=== PATIENT | male | born 1955 | race Caucasian/White ===

== ENCOUNTER 2022-01-06 12:16 | Observation (INO) ==
[2022-01-06] MEDS ORDERED: NITROGLYCERIN SL 0.4 MG/TAB TAB SL STA (12:42)
[2022-01-06] MEDS ORDERED: ASPIRIN 81 MG CHEW PO STA (12:42)
--- NOTE | 2022-01-06 12:56 | Emergency Department Note ---
Impression & Plan Chest pain, DM type 2 (diabetes mellitus, type 2), CKD (chronic kidney disease), stage IV, CAD (coronary artery disease) ED Provider Note Provider: Efren Rod MD DATE OF SERVICE: 01/06/2022 CHIEF COMPLAINT: Chest pain HISTORY OF PRESENT ILLNESS: Patient is a 66-year-old gentleman history of pancreatitis, CAD, CKD and HIV presenting here today reporting onset about 24 hours ago of some left axillary chest discomfort that has over the time rated little bit of right shoulder and now more to the left shoulder sharp in nature. Patient states is worse with exertion and movement but not recently movement of his arm. Patient states he feels a little short of breath. Denies any trauma or rash. Denies significant abdominal pain. Patient states it does feel a bit similar to prior cardiac issues in the past and has had 5 stents previously last in 2019. Just moved back to the area from the [facility] and has not established with a doctor here. REVIEW OF SYSTEMS: A total of 10 review of systems was obtained and negative except as stated above in the HPI. PAST MEDICAL HISTORY: As noted above MEDICATIONS: Reviewed home medications SOCIAL HISTORY: Retired, just moved back to the area PHYSICAL EXAM: GENERAL: alert and oriented in no acute distress on stretcher Head: normocephalic and atraumatic EYES: No injection, discharge or icterus. NECK: Trachea midline. LUNGS: Airway patent. No retractions. Breath sounds clear HEART: Regular rate and rhythm. No chest wall tenderness ABDOMEN: Soft and non-tender, without guarding or rebound. SKIN: Acyanotic, warm, dry, without rashes EXTREMITIES: Without swelling, tenderness or deformity NEUROLOGICAL: No focal deficits. No aphasia. No facial droop or slurred speech. Ambulatory. EK bpm sinus rhythm first-degree AV block. No PVC or PAC. Left bundle branch block with a QTC of 460 not meeting Sgarbossa criteria. EKG 2: 74 bpm sinus rhythm first-degree AV block without PVC or PAC. Similar to previous at the continued left bundle branch block. EKG 3: 76 bpm normal sinus rhythm left bundle branch block. No PVC or PAC. Compared to previous similar. CONTINUOUS CARDIAC MONITORING: was ordered and showed a heart rate of 60s-80s bpm in normal sinus rhythm Patient's laboratory studies and imaging reviewed. Differential includes Cardiac ischemia, aortic dissection, pulmonary embolism, pneumothorax, pneumonia, pericarditis, myocarditis, esophageal rupture, GERD, cholecystitis, pancreatitis, musculoskeletal, as well as other pathologies. IMPRESSION/MEDICAL DECISION MAKING: Patient with cardiac history with history of stents. Given full dose aspirin & nitro here with 3 out of 10 chest pain initially. X-ray is concerning with a bundle branch block but do not have recent similar for comparison. Pain ongoing for about 24 hours but does not clearly meeting Sgarbossa criteria. Denies significant abdominal symptoms and lower suspicion for pancreatitis. Not significantly hypoxic here and low suspicion that this represents PE. Blood work here without troponin elevation. No lipase or hepatic dysfunction noted. Patient states he has an underlying history of his CKD and states his GFR is usually between 15 and 20 and today is 22. Patient's pain is resolved upon evaluation although again he states it gets worse with exertion in the past. Again doubt acute STEMI given the troponin and resolution of symptoms. Believe further cardiac work-up given his reported history and the exertional component is warranted. Patient in agreement. Discussed with the hospitalist team. DIAGNOSIS: Chest pain, CKD, history of CAD, history of type 2 diabetes DISPOSITION: Hospitalist will evaluate Patient was agreeable with this plan. Past Med/Surg History Medical History CAD (coronary artery disease) Per patient, stenting x 5 in 2016 and restenting of 1 vessel performed in July 2020 CKD (chronic kidney disease), stage IV Depression DM type 2 (diabetes mellitus, type 2) HIV (human immunodeficiency virus infection) Surgical History No pertinent past surgical history Family History Mother Heart disease Social History Smoking Status: Former smoker Tobacco Type: Cigarettes Hx Alcohol Use: Yes Alcohol Intake Frequency: Monthly or Less Feels Safe at Home: Yes Allergies Allergies Allergy/AdvReac Type Severity Reaction Status Date / Time No Known Allergies Allergy Unverified 01/06/22 15:38 Home Meds Home Medications Medication Instructions Recorded Confirmed aspirin 81 mg tablet,delayed 81 mg PO QAM 01/06/22 01/06/22 release atorvastatin 40 mg tablet 40 mg PO QAM 01/06/22 01/06/22 calcitriol 0.25 mcg capsule 0.25 mcg PO QAM 01/06/22 01/06/22 coenzyme Q10 50 mg capsule (Co 0 mg PO QAM 01/06/22 01/06/22 Q-10) dolutegravir 50 mg-rilpivirine 25 1 tab PO QAM 01/06/22 01/06/22 mg tablet (Juluca) fluoxetine 20 mg capsule 20 mg PO QAM 01/06/22 01/06/22 insulin aspart U-100 100 unit/mL See Rx Instructions .ROUTE .COMPLEX 01/06/22 01/06/22 (3 mL) subcutaneous pen (Novolog Flexpen U-100 Insulin aspart) insulin glargine 100 unit/mL (3 20 unit SUBCUT QA 01/06/22 01/06/22 mL) subcutaneous pen (Basaglar KwikPen U-100 Insulin) metoprolol tartrate 25 mg tablet 25 mg PO QAM 01/06/22 01/06/22 multivitamin 1 tab PO QAM 01/06/22 01/06/22 omega 2-vuz-aty-fish oil 1,000 mg 2 cap PO QAM 01/06/22 01/06/22 (120 mg-180 mg) capsule (Fish Oil) prasugrel 10 mg tablet 10 mg PO QAM 01/06/22 01/06/22 sodium bicarbonate 650 mg tablet 1,300 mg PO QAM 01/06/22 01/06/22 vitamin E 100 unit capsule 0 unit PO QAM 01/06/22 01/06/22 Results & Data (ED) Vital Signs Vital Signs - 24 hr 01/06/22 12:21 01/06/22 13:00 01/06/22 13:03 Temperature 36.7 C Temperature Source Temporal Artery Scan Pulse Rate 78 83 Pulse Rate [Left Apical] 83 Pulse Rate from SpO2 Sensor 82 Pulse Rhythm Pulse Rhythm [Left Apical] Regular Pulse Strength [Left Apical] Normal Respiratory Rate 20 16 17 Respiratory Effort / Characteristics Non-Labored Non-Labored Spontaneous Respiratory Depth Normal Normal Respiratory Pattern Regular Blood Pressure 149/95 H Blood Pressure [Left Arm] 123/81 Blood Pressure Mean 113 Blood Pressure Mean [Left Arm] 95 Blood Pressure Position [Left Arm] Lying Pulse Oximetry 97 92 91 Oxygen Delivery Method Room Air Room Air Sepsis Recent Fever Within 48 Hours No Sepsis New/Unexplained Change in Mental Status N/A Sepsis Action Taken by Nursing No Action Required 01/06/22 13:30 01/06/22 13:48 01/06/22 14:00 Temperature Temperature Source Pulse Rate 74 69 70 Pulse Rate [Left Apical] Pulse Rate from SpO2 Sensor 74 69 Pulse Rhythm Regular Pulse Rhythm [Left Apical] Pulse Strength [Left Apical] Respiratory Rate 20 21 Respiratory Effort / Characteristics Respiratory Depth Respiratory Pattern Blood Pressure 116/84 120/75 Blood Pressure [Left Arm] Blood Pressure Mean 94 90 Blood Pressure Mean [Left Arm] Blood Pressure Position [Left Arm] Pulse Oximetry 94 94 95 Oxygen Delivery Method Room Air Sepsis Recent Fever Within 48 Hours Sepsis New/Unexplained Change in Mental Status Sepsis Action Taken by Nursing 01/06/22 14:30 01/06/22 15:00 Temperature Temperature Source Pulse Rate 67 Pulse Rate [Left Apical] 62 Pulse Rate from SpO2 Sensor 67 Pulse Rhythm Pulse Rhythm [Left Apical] Regular Pulse Strength [Left Apical] Normal Respiratory Rate 16 18 Respiratory Effort / Characteristics Non-Labored Respiratory Depth Normal Respiratory Pattern Regular Blood Pressure 119/82 Blood Pressure [Left Arm] 128/78 Blood Pressure Mean 94 Blood Pressure Mean [Left Arm] 94 Blood Pressure Position [Left Arm] Lying Pulse Oximetry 96 98 Oxygen Delivery Method Room Air Sepsis Recent Fever Within 48 Hours Sepsis New/Unexplained Change in Mental Status Sepsis Action Taken by Nursing Laboratory Data Result diagrams: 01/06/22 12:36 01/06/22 12:36 Lab Results 01/06/22 01/06/22 01/06/22 Range/Units 12:36 12:36 12:36 WBC 7.47 (4.8-10.8) K/uL RBC 5.03 (4.7-6.1) M/uL Hgb 13.8 L (14.0-18.0) g/dL Hct 41.0 L (42-52) % MCV 81.5 (80-100) fL MCH 27.4 (25-34) pg MCHC 33.7 (32-36) g/dL RDW Std Deviation 42.3 (36.4-46.3) fL RDW Coeff of Meera 14.5 (11.5-14.5) % Plt Count 196 (130-400) K/uL MPV 9.2 (7.4-10.4) fL Immature Gran % (Auto) 0.3 % Neut % (Auto) 53.9 % Lymph % (Auto) 32.1 % Cochran % (Auto) 10.8 % Eos % (Auto) 2.8 % Baso % (Auto) 0.1 % Neut # (Auto) 4.02 (1.4-6.5) K/uL Lymph # (Auto) 2.40 (1.2-3.4) K/uL Cochran # (Auto) 0.81 H (0.11-0.59) K/uL Eos # (Auto) 0.21 (0-0.5) K/uL Baso # (Auto) 0.01 (0-0.2) K/uL Immature Gran # (Auto) 0.02 (0.00-0.02) K/uL PT 10.8 (9.0-12.0) Seconds INR 1.0 (0.9-1.1) APTT 27.0 (21.0-31.0) Seconds PTT Ratio 1.0 Sodium (136-145) mmol/L Potassium (3.5-5.1) mmol/L Chloride (98-107) mmol/L Carbon Dioxide (21-32) mmol/L Anion Gap (3-11) BUN (6-23) mg/dl Creatinine (0.6-1.4) mg/dl Est Cr Clr Drug Dosing ml/min Est GFR ( Amer) ml/min Est GFR (Non-Af Amer) ml/min BUN/Creatinine Ratio (10-20) Glucose (70-99(Fasting)) mg/dl Calcium (8.5-10.1) mg/dl Total Bilirubin (0.2-1.0) mg/dl AST (13-39) U/L ALT (7-52) U/L Alkaline Phosphatase (34-104) U/L Troponin I High Sens 11.0 (0-20) pg/ml Total Protein (6.0-8.3) gm/dl Albumin (3.4-5.0) gm/dl Globulin (2.5-4.0) gm/dl Albumin/Globulin Ratio (0.9-2) Lipase (11-82) U/L SARS-CoV-2, RNA, NAAT (NEGATIVE) 01/06/22 01/06/22 01/06/22 Range/Units 12:36 14:07 14:10 WBC (4.8-10.8) K/uL RBC (4.7-6.1) M/uL Hgb (14.0-18.0) g/dL Hct (42-52) % MCV (80-100) fL MCH (25-34) pg MCHC (32-36) g/dL RDW Std Deviation (36.4-46.3) fL RDW Coeff of Meera (11.5-14.5) % Plt Count (130-400) K/uL MPV (7.4-10.4) fL Immature Gran % (Auto) % Neut % (Auto) % Lymph % (Auto) % Cochran % (Auto) % Eos % (Auto) % Baso % (Auto) % Neut # (Auto) (1.4-6.5) K/uL Lymph # (Auto) (1.2-3.4) K/uL Cochran # (Auto) (0.11-0.59) K/uL Eos # (Auto) (0-0.5) K/uL Baso # (Auto) (0-0.2) K/uL Immature Gran # (Auto) (0.00-0.02) K/uL PT (9.0-12.0) Seconds INR (0.9-1.1) APTT (21.0-31.0) Seconds PTT Ratio Sodium 135 L (136-145) mmol/L Potassium 3.8 (3.5-5.1) mmol/L Chloride 107 (98-107) mmol/L Carbon Dioxide 22 (21-32) mmol/L Anion Gap 6 (3-11) BUN 37 H (6-23) mg/dl Creatinine 2.79 H (0.6-1.4) mg/dl Est Cr Clr Drug Dosing 25.3 ml/min Est GFR ( Amer) 25.8 ml/min Est GFR (Non-Af Amer) 22.3 ml/min BUN/Creatinine Ratio 13.3 (10-20) Glucose 98 (70-99(Fasting)) mg/dl Calcium 9.6 (8.5-10.1) mg/dl Total Bilirubin 0.6 (0.2-1.0) mg/dl AST 28 (13-39) U/L ALT 38 (7-52) U/L Alkaline Phosphatase 62 (34-104) U/L Troponin I High Sens (0-20) pg/ml Total Protein 7.2 (6.0-8.3) gm/dl Albumin 4.1 (3.4-5.0) gm/dl Globulin 3.1 (2.5-4.0) gm/dl Albumin/Globulin Ratio 1.3 (0.9-2) Lipase 13 (11-82) U/L SARS-CoV-2, RNA, NAAT NEGATIVE (NEGATIVE) Administered Medications Discontinued Medications Aspirin (Aspirin 81 Mg Chew) 324 mg PO NOW STA Stop: 01/06/22 12:43 Last Admin: 01/06/22 12:50 Dose: 324 mg Documented by: [id number] Nitroglycerin (Nitroglycerin Sl 0.4 Mg/Tab Tab) 0.4 mg SL NOW STA Stop: 01/06/22 12:43 Last Admin: 01/06/22 12:50 Dose: 0.4 mg Documented by: [id number] Imaging Data Radiologist's Impression: Chest X-Ray 01/06/22 12:24 XR chest 1V portable CLINICAL HISTORY: Atypical chest pain. COMPARISON STUDY: Chest radiograph June 14, 2012. FINDINGS: There is no pneumothorax or pleural effusion. Moderate elevation of the left hemidiaphragm is similar to prior exams. Note is made of cardiomegaly without evidence for pulmonary edema. Mild left basilar opacity favors atelectasis. No consolidation to suggest pneumonia. IMPRESSION: 1. No acute cardiopulmonary findings. 2. Cardiomegaly with evidence for pulmonary edema. 3. Moderate elevation of the left hemidiaphragm, unchanged. ACT 112: Negative or not required by law. Electronically signed by: Igor Roberts M.D. 01/06/2022 12:58 PM Discharge Plan Visit Data Chief Complaint: Cardiac Assessment Stated Complaint: WANTS EKG, PAIN IN SIDE, CHEST, RADIATES TO BACK ED Provider: Efren Rod Patient Disposition: Being Evaluated by Hospitalist Prescriptions Prescriptions: No Action atorvastatin 40 mg tablet 40 mg PO QAM RF: 0 vitamin E 100 unit Capsule 0 unit PO QAM RF: 0 coenzyme Q10 [Co Q-10] 50 mg Capsule 0 mg PO QAM RF: 0 sodium bicarbonate 650 mg tablet 1,300 mg PO QAM RF: 0 fluoxetine 20 mg capsule 20 mg PO QAM RF: 0 calcitriol 0.25 mcg capsule 0.25 mcg PO QAM RF: 0 insulin aspart U-100 [Novolog Flexpen U-100 Insulin] 100 unit/mL (3 mL) insulin pen See Rx Instructions .ROUTE .COMPLEX RF: 0 metoprolol tartrate 25 mg tablet 25 mg PO QAM RF: 0 Basaglar KwikPen U-100 Insulin 100 unit/mL (3 mL) insulin pen 20 unit SUBCUT QAM RF: 0 prasugrel 10 mg tablet 10 mg PO QAM RF: 0 Juluca 50-25 mg tablet 1 tab PO QAM RF: 0 multivitamin Tablet 1 tab PO QAM RF: 0 aspirin [Aspir-81] 81 mg Tablet,Delayed Release (Dr/Ec) 81 mg PO QAM RF: 0 omega 1-pip-lhg-fish oil [Fish Oil] 1,000 mg (120 mg-180 mg) Capsule 2 cap PO QAM RF: 0
--- NOTE | 2022-01-06 12:59 | XRay Report ---
XR chest 1V portable CLINICAL HISTORY: Atypical chest pain. COMPARISON STUDY: Chest radiograph June 14, 2012. FINDINGS: There is no pneumothorax or pleural effusion. Moderate elevation of the left hemidiaphragm is similar to prior exams. Note is made of cardiomegaly without evidence for pulmonary edema. Mild le ft basilar opacity favors atelectasis. No consolidation to suggest pneumonia. IMPRESSION: 1. No acute cardiopulmonary findings. 2. Cardiomegaly with evidence for pulmonary edema. 3. Moderate elevation of the left hemidiaphragm, unchanged. ACT 112: Negative or not required by law. Electronically signed by: Igor Roberts M.D. 01/06/2022 12:58 PM
[2022-01-06 13:06] LABS: Basophils # (auto) 0.01 K/uL (0-0.2); Basophils % (auto) 0.1 %; Eosinophils # (auto) 0.21 K/uL (0-0.5); Eosinophils % (auto) 2.8 %; Hemoglobin 13.8 g/dL (14.0-18.0); Immature Granulocytes # (auto) 0.02 K/uL (0.00-0.02); Immature Granulocytes % (auto) 0.3 %; Lymphocytes % (auto) 32.1 %; Mean Corpuscular Hemoglobin 27.4 pg (25-34); Mean Corpuscular Hgb Conc 33.7 g/dL (32-36); Mean Corpuscular Volume 81.5 fL (80-100); Mean Platelet Volume 9.2 fL (7.4-10.4); Monocytes # (auto) 0.81 K/uL (0.11-0.59); Monocytes % (auto) 10.8 %; Neutrophils # (auto) 4.02 K/uL (1.4-6.5); Neutrophils % (auto) 53.9 %; Platelet Count 196 K/uL (130-400); RDW Coefficient of Variation 14.5 % (11.5-14.5); RDW Standard Deviation 42.3 fL (36.4-46.3); Red Blood Count 5.03 M/uL (4.7-6.1); White Blood Count 7.47 K/uL (4.8-10.8)
[2022-01-06 13:09] LABS: Prothrombin Time 10.8 Seconds (9.0-12.0)
[2022-01-06 13:14] LABS: Albumin Globulin Ratio 1.3 (0.9-2); Albumin Level 4.1 gm/dl (3.4-5.0); BUN Creatinine Ratio 13.3 (10-20); Bilirubin,Total 0.6 mg/dl (0.2-1.0); Calcium 9.6 mg/dl (8.5-10.1); Creatinine Clr Calc Pharmacy 25.3 ml/min; Est GFR (African American) 25.8 ml/min; Est GFR (Non-African American) 22.3 ml/min; Globulin 3.1 gm/dl (2.5-4.0); Potassium 3.8 mmol/L (3.5-5.1); Total Protein 7.2 gm/dl (6.0-8.3)
--- NOTE | 2022-01-06 15:36 | History & Physical Report ---
Date of Service January 06, 2022 Assessment & Plan (1) Chest pain: (2) CAD (coronary artery disease): Plan: Admit to telemetry Patient presenting from home with reports of chest pain. Pain under left axilla reproducible on exam. There may be some musculoskeletal component History of CAD s/p stenting in 2016 and 2019. Outside records unavailable at this time, records request made In the ED, patient received full dose aspirin and SL nitro x 1 --currently chest pain-free EKG shows LBBB --no recent EKG available for comparison Initial HS troponin 11.0 Continue to trend troponin, resting echo Cardiology consult, case discussed with --tentatively planning on Lexiscan stress test tomorrow (3) HIV (human immunodeficiency virus infection): Plan: On Juluca Will update CD4 and viral load as patient states he has not had them checked in some time (4) CKD (chronic kidney disease), stage IV: Plan: Patient reports baseline creatinine is 3.0 Creatinine noted be 2.79 today Monitor renal functions Patient also states that he is on the renal transplant list through [place] in [facility] (5) DM type 2 (diabetes mellitus, type 2): Plan: Unknown A1c, will check with a.m. labs NovoLog per protocol while hospitalized (6) DVT prophylaxis: Plan: SQ heparin (7) Discharge planning issues: Plan: Patient moved to the area about 6 months ago and has not established any medical care. Previous providers include - Dr. Polo Ray with infectious disease/HIV management -[facility], transplant medicine [facility], PCP TIM Irizarry [facility], Dr. Teodoro Egan [facility] cardiology, Dr. Jb Rodriguez [facility] nephrology. History of Present Illness Chief Complaint: Chest pain Primary Care Provider: NO PCP 66-year-old male with PMH HIV, CAD s/p stenting, CKD stage IV, DM type II on insulin, and other problems listed below who presents to the ED for evaluation of chest pain. Patient reports he developed a discomfort under his left axilla yesterday. Eats that he felt as though he may have pulled a muscle. This morning, while doing some chores around the house, he developed a similar pain under his right axilla and also a precordial chest tightness. Patient reports chest tightness was similar to prior MIs. Also reports associated shortness of breath, nausea, and indigestion. Patient drove himself to the ED for further evaluation. Patient reports he otherwise has been feeling well recently. Recently moved to the area about 6 months ago and has not established any medical care. Patient denies any other recent illnesses, fevers, chills. No abdominal pain, vomiting, diarrhea. No urinary symptoms. Patient received full dose aspirin and SL nitro x 1 and is currently chest pain-free. Patient is hemodynamically stable. EKG demonstrates LBBB, unfortunately no EKGs to compare to. Initial HS troponin negative. Creat 2.79 (patient reports baseline is 3.0). Allergies Allergy/AdvReac Type Severity Reaction Status Date / Time No Known Allergies Allergy Unverified 01/06/22 15:38 Home Medications Medication Instructions Recorded Confirmed Type aspirin 81 mg tablet,delayed 81 mg PO [facility] 01/06/22 01/06/22 History release atorvastatin 40 mg tablet 40 mg PO [facility] 01/06/22 01/06/22 History calcitriol 0.25 mcg capsule 0.25 mcg PO [facility] 01/06/22 01/06/22 History coenzyme Q10 50 mg capsule (Co 0 mg PO [facility] 01/06/22 01/06/22 History Q-10) dolutegravir 50 mg-rilpivirine 25 1 tab PO [facility] 01/06/22 01/06/22 History mg tablet (Juluca) fluoxetine 20 mg capsule 20 mg PO [facility] 01/06/22 01/06/22 History insulin aspart U-100 100 unit/mL See Rx Instructions .ROUTE .COMPLEX 01/06/22 01/06/22 History (3 mL) subcutaneous pen (Novolog Flexpen U-100 Insulin aspart) insulin glargine 100 unit/mL (3 20 unit SUBCUT [facility] 01/06/22 01/06/22 History mL) subcutaneous pen (Basaglar KwikPen U-100 Insulin) metoprolol tartrate 25 mg tablet 25 mg PO QAM 01/06/22 01/06/22 History multivitamin 1 tab PO QAM 01/06/22 01/06/22 History omega 3-ygx-gjw-fish oil 1,000 mg 2 cap PO [facility] 01/06/22 01/06/22 History (120 mg-180 mg) capsule (Fish Oil) prasugrel 10 mg tablet 10 mg PO QAM 01/06/22 01/06/22 History sodium bicarbonate 650 mg tablet 1,300 mg PO QAM 01/06/22 01/06/22 History vitamin E 100 unit capsule 0 unit PO QAM 01/06/22 01/06/22 History Past Med/Surg History Medical History CAD (coronary artery disease) Per patient, stenting x 5 in 2016 and restenting of 1 vessel performed in July 2020 CKD (chronic kidney disease), stage IV Depression DM type 2 (diabetes mellitus, type 2) HIV (human immunodeficiency virus infection) Surgical History No pertinent past surgical history Family History Mother Heart disease Social History Smoking Status: Former smoker Tobacco Type: Cigarettes Hx Alcohol Use: Yes Alcohol type: wine Alcohol Intake Frequency: Monthly or Less Hx Substance Use: No Preferred Language: Setswana Communication Ability: Effective Cardroom Supervisor Required: No Beliefs That Will Affect Care: None Current Living Situation: Alone Other Information That Helps Us Care for You: No Feels Safe at Home: Yes Safety Concerns: Feels Safe At This Time Assistive Devices: Glasses Review of Systems Review of Systems: ROS per HPI, all other systems reviewed and negative Physical Exam Constitutional: WD/WN, vitals as above Eyes: PERRL, conjunctivae normal, anicteric sclerae ENMT: external ear and nose normal, oropharynx normal Respiratory: normal respiratory effort, lungs clear to auscultation Cardiovascular: Rate/Rhythm: regular rate and regular rhythm Vessels: normal peripheral pulses Extremities: no edema Gastrointestinal (Abdomen): normal bowel sounds, soft, nontender, no hepatosplenomegaly Musculoskeletal: no cyanosis or clubbing, extremities motor strength 5/5 Skin: no rashes, warm and dry Neurologic: PERRL, EOMI, accommodation nl, no face palsy, no dysarthria Psychiatric: A+Ox3, euthymic affect Results & Data Results & Data ([facility]) Vital Signs (Past 12 Hours) Vital Signs Temp Pulse Pulse Resp BP BP Pulse Ox 01/06/22 15:00 62 18 128/78 98 01/06/22 14:30 67 16 119/82 96 01/06/22 14:00 70 21 120/75 95 01/06/22 13:48 69 94 01/06/22 13:30 74 20 116/84 94 01/06/22 13:03 83 17 91 01/06/22 13:00 83 16 123/81 92 01/06/22 12:21 36.7 C 78 20 149/95 H 97 Laboratory Results Short CBC 01/06/22 Range/Units 12:36 WBC 7.47 (4.8-10.8) K/uL Hgb 13.8 L (14.0-18.0) g/dL Hct 41.0 L (42-52) % Plt Count 196 (130-400) K/uL BMP 01/06/22 12:36 Sodium 135 L Potassium 3.8 Chloride 107 Carbon Dioxide 22 BUN 37 H Creatinine 2.79 H Glucose 98 Calcium 9.6 Liver Function 01/06/22 Range/Units 12:36 Total Bilirubin 0.6 (0.2-1.0) mg/dl AST 28 (13-39) U/L ALT 38 (7-52) U/L Alkaline Phosphatase 62 (34-104) U/L Albumin 4.1 (3.4-5.0) gm/dl Diagnostic Findings Chest X-Ray 01/06/22 12:24 XR chest 1V portable CLINICAL HISTORY: Atypical chest pain. COMPARISON STUDY: Chest radiograph June 14, 2012. FINDINGS: There is no pneumothorax or pleural effusion. Moderate elevation of the left hemidiaphragm is similar to prior exams. Note is made of cardiomegaly without evidence for pulmonary edema. Mild left basilar opacity favors atelectasis. No consolidation to suggest pneumonia. IMPRESSION: 1. No acute cardiopulmonary findings. 2. Cardiomegaly with evidence for pulmonary edema. 3. Moderate elevation of the left hemidiaphragm, unchanged. ACT 112: Negative or not required by law. Electronically signed by: Igor Roberts M.D. 01/06/2022 12:58 PM Code Status & VTE Plan VTE Prophylaxis Plan VTE Prophylaxis will be ordered: Yes Supervising Physician Co-Signing Physician Notes I have seen and examined the patient and have discussed the case with the provider above. I agree with the assessment and plan as stated with the following exceptions. Patient is a 66-year-old man presenting with chest pain. He has known history of CAD, is a non-smoker, and is HIV positive on antiretroviral therapy. His pain is described as lateral chest severe, radiating to the right shoulder over the last 24 hours. He reports exertion making this worse and is associated with shortness of breath. Rest makes it better. He describes some components of this that were similar to his first heart attack and he has had 2 heart attacks. He denies a history of chest pain outside of his heart attacks in the past and does not regularly use nitro. Baseline lab work is unavailable as patient received most of his health care in the [facility] for the last 10 years. He reports stents in place and a history of CKD. The patient does report intermittent rectal bleeding on occasion and repo rts a history of precancerous cells in his rectal area. It is unknown the last time he has had this evaluated. Physical exam reveals a well-nourished well-developed man in no acute distress who is mentating normally. His skin is warm and dry and there are no evidence of rashes present. Lungs are clear to auscultation throughout all lung abdalla. Cardiac auscultation reveals S1/S2 heard with no evidence of murmurs gallops or rubs. There is no pain to chest wall palpation and there is no rash over the pain area. Abdomen is soft nontender and protuberant but nondistended. There is no evidence of edema and no gross focal neurologic deficits. Work-up reveals a normal CBC with elevated monocytes. BMP reveals sodium of 135 and otherwise normal electrolytes and a BUN 37 creatinine 2.8. Although he reports a history of CKD he is uncertain of his baseline creatinine. Highly sensitive troponin is negative and lipase is normal. A chest x-ray reveals no evidence of pulmonary edema. EKG reveals sinus rhythm with a first-degree AV block and left bundle branch block. Overall this is a 66-year-old man with high risk for ACS given his history of CAD, stents and HIV status. Continue to trend serial troponins overnight and trend daily EKG. Cardiology consult. Lipid panel while in fasting, A1c screening recommended. We will also obtain CD4 count and viral load given he has not established with an infectious disease physician in the area, and these values are unknown to us. DO Ignacio
--- NOTE | 2022-01-06 15:37 | Electrocardiogram Report ---
Test Reason : Blood Pressure : / mmHG Vent. Rate : 067 BPM Atrial Rate : 067 BPM P-R Int : 220 ms QRS Dur : 166 ms QT Int : 436 ms P-R-T Axes : 045 -03 156 degrees QTc Int : 460 ms Sinus rhythm with 1st degree A-V block Possible Left atrial enlargement Left bundle branch block Abnormal ECG When compared with ECG of 13-JUN-2012 11:22, [place] interval has increased Vent. rate has decreased BY 44 BPM Left bundle branch block is now Present Confirmed by Ryland Michelle ([id number]) on 01/06/2022 3:37:27 PM Referred By: Confirmed By:Ryland Michelle
--- NOTE | 2022-01-06 15:37 | Electrocardiogram Report ---
Test Reason : Blood Pressure : / mmHG Vent. Rate : 074 BPM Atrial Rate : 074 BPM P-R Int : 216 ms QRS Dur : 166 ms QT Int : 432 ms P-R-T Axes : 036 -17 126 degrees QTc Int : 479 ms Sinus rhythm with 1st degree A-V block Left bundle branch block Abnormal ECG When compared with ECG of 06-JAN-2022 12:26, (unconfirmed) Nonspecific T wave abnormality has replaced inverted T waves in Inferior leads Confirmed by Ryland Michelle ([id number]) on 01/06/2022 3:37:40 PM Referred By: Confirmed By:Ryland Michelle
[2022-01-06] MEDS ORDERED: GLUCAGON FOR INJ 1 MG VIAL SQ PRN (16:00)
[2022-01-06] MEDS ORDERED: CARBOHYDRATES FOR HYPOGLYCEMIA PO PRN (16:00)
[2022-01-06] MEDS ORDERED: NITROGLYCERIN SL 0.4 MG/TAB TAB SL PRN (16:00)
[2022-01-06] MEDS ORDERED: DEXTROSE 50% 50 ML SYRINGE IV PRN (16:00)
[2022-01-06] MEDS ORDERED: GLUCOSE 40% GEL 15 GM TUBE PO PRN (16:00)
[2022-01-06] MEDS ORDERED: ACETAMINOPHEN 325 MG TAB PO PRN (16:00)
[2022-01-06] MEDS ORDERED: GLUCOSE 10 TABS/TUBE PO PRN (16:00)
[2022-01-06] MEDS: INSULIN ASPART PER UNIT SC SCH ×2 (18:00→21:24)
[2022-01-06] MEDS: ATORVASTATIN 40 MG TAB PO SCH (21:22)
[2022-01-06] MEDS: HEPARIN SOD 5,000 UNIT/0.5 ML VIAL SQ SCH (21:24)
[2022-01-07] MEDS: HEPARIN SOD 5,000 UNIT/0.5 ML VIAL SQ SCH ×3 (07:12→20:40)
[2022-01-07 07:25] LABS: BUN Creatinine Ratio 14.2 (10-20); Calcium 8.6 mg/dl (8.5-10.1); Est GFR (African American) 24.1 ml/min; Est GFR (Non-African American) 20.8 ml/min; Potassium 3.8 mmol/L (3.5-5.1)
[2022-01-07] MEDS: INSULIN ASPART PER UNIT SC SCH ×4 (08:02→20:40)
[2022-01-07] MEDS: ASPIRIN 81 MG ECTAB PO SCH (08:15)
[2022-01-07] MEDS: CALCITRIOL 0.25 MCG CAPSULE PO SCH (08:15)
[2022-01-07] MEDS: PRASugrel TAB 10 MG TAB PO SCH (08:16)
[2022-01-07] MEDS: SODIUM BICARBONATE 650 MG TAB PO SCH (08:16)
[2022-01-07] MEDS: FLUoxetine HCL 20 MG CAP PO SCH (08:16)
[2022-01-07] MEDS: METOPROLOL TARTRATE 25 MG TAB PO SCH (08:16)
[2022-01-07 08:21] LABS: Hematocrit (blood only) 38.2 % (42-52); Hemoglobin 12.8 g/dL (14.0-18.0); Mean Corpuscular Hemoglobin 27.4 pg (25-34); Mean Corpuscular Hgb Conc 33.5 g/dL (32-36); Mean Corpuscular Volume 81.6 fL (80-100); Mean Platelet Volume 9.4 fL (7.4-10.4); Platelet Count 157 K/uL (130-400); RDW Coefficient of Variation 14.7 % (11.5-14.5); Red Blood Count 4.68 M/uL (4.7-6.1); White Blood Count 4.66 K/uL (4.8-10.8)
[2022-01-07] MEDS ORDERED: REGADENOSON 0.4 MG/5 ML SYR IV ONE (08:28)
[2022-01-07 08:35] LABS: Estimated Average Glucose 321 mg/dl; Hemoglobin A1C 12.8 % (4.5-5.6)
--- NOTE | 2022-01-07 09:54 | Cardiology Consultation ---
Date of Consultation January 07, 2022 Assessment & Plan (1) Chest pain: 66-year-old male with past medical history of HIV, stage IV chronic kidney disease, and coronary heart disease presents with recent complaint of waxing and waning chest discomfort of 3 days duration. Symptoms somewhat atypical for angina, and the patient does not believe there in retrospect reminiscent of his previous angina with history of STEMI in 2018, NSTEMI, 2020. Patient had EKG findings of left bundle branch block which had been noted on previous outside cardiology notes. Per review of his telemetry from overnight it does appear that the left bundle branch block is intermittent. No rashes are noted on the left lateral chest wall. Symptoms reproduced with deep inspiration and palpation of his left chest today. 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 Given his history, and patient concerns, will proceed with Lexiscan myocardial perfusion imaging study for further evaluation. Pharmacologic stress test is a test of choice given history of intermittent left bundle branch block. At bedtime troponin has been negative x3 which is reassuring. Renal function stable compared to past baseline. Resting echocardiogram with evidence of mild left ventricular systolic dysfunction, LVEF in the range of 45-50%, RCA territory scar, similar to reported outside study dating back to 2020. Chest x-ray without findings of pulmonary edema, chronic raised hemidiaphragm noted. Patient states he has been adherent to his cardiac medications including aspirin and prasugrel without interruption. He states he has also been on his HIV medications. CD4 count, HIV viral load ordered by the admitting service and are pending at present. Further recommendations to be forthcoming after the stress test is completed. History of Present Illness Attending Physician: Gladis Crockett MD History of Present Illness Tad Silvestre is a 66 year old male seen in cardiology consultation per the request of TIM Couch for chest pain. Patient describes that 2 days ago on Wednesday, he felt a sharp pain in his left axilla. He noticed that it migrated to his right side, and radiated to his back without cricket chest discomfort. It seemed to be worse while doing zyglo inspector. He does not feel that he strained anything. He has been doing normal household cleaning. At present, he feels improved, but the pain at the left axilla still persists. It is reproduced on deep inspiration and with palpation of his left ribs. Patient moved to the area six months ago form [facility]. His previous medical care had mostly taken place in the [facility] system and a cardiology progress note from there da will back for September 2020 was obtained via the CareEverywhere feature of his [employer] electronic record. Past Medical History: Stage IV chronic kidney disease, baseline creatinine of around 3 mg/dL HIV, on HAART therapy DM2 asymptomatic carotid disease Coronary heart disease, history of inferior ST segment elevation myocardial infa rction which took place in October,, prompting emergent cardiac catheterization, and percutaneous coronary intervention with 5 stents apparently placed in the right coronary artery NSTEMI, July,, prompting transfer to [facility] and per records, he was found to have in-stent restenosis prompting repeat PCI stenting to the RCA Previously noted LBBB per outside records Ischemic cardiomyopathy, LVEF 40-45% , outside echo 11/2020 with RCA territory wall motion abnormality described Allergies Allergy/AdvReac Type Severity Reaction Status Date / Time No Known Allergies Allergy Unverified 01/06/22 15:38 Home Medications Medication Instructions Recorded Confirmed Type aspirin 81 mg tablet,delayed 81 mg PO QA 01/06/22 01/06/22 History release atorvastatin 40 mg tablet 40 mg PO QA 01/06/22 01/06/22 History calcitriol 0.25 mcg capsule 0.25 mcg PO QAM 01/06/22 01/06/22 History coenzyme Q10 50 mg capsule (Co 0 mg PO QAM 01/06/22 01/06/22 History Q-10) dolutegravir 50 mg-rilpivirine 25 1 tab PO QAM 01/06/22 01/06/22 History mg tablet (Juluca) fluoxetine 20 mg capsule 20 mg PO QAM 01/06/22 01/06/22 History insulin aspart U-100 100 unit/mL See Rx Instructions .ROUTE .COMPLEX 01/06/22 01/06/22 History (3 mL) subcutaneous pen (Novolog Flexpen U-100 Insulin aspart) insulin glargine 100 unit/mL (3 20 unit SUBCUT QA 01/06/22 01/06/22 History mL) subcutaneous pen (Basaglar KwikPen U-100 Insulin) metoprolol tartrate 25 mg tablet 25 mg PO QAM 01/06/22 01/06/22 History multivitamin 1 tab PO QAM 01/06/22 01/06/22 History omega 1-cei-mtx-fish oil 1,000 mg 2 cap PO QAM 01/06/22 01/06/22 History (120 mg-180 mg) capsule (Fish Oil) prasugrel 10 mg tablet 10 mg PO QAM 01/06/22 01/06/22 History sodium bicarbonate 650 mg tablet 1,300 mg PO QAM 01/06/22 01/06/22 History vitamin E 100 unit capsule 0 unit PO QAM 01/06/22 01/06/22 History Patient History Medical History CAD (coronary artery disease) Per patient, stenting x 5 in 2016 and restenting of 1 vessel performed in July 2020 CKD (chronic kidney disease), stage IV Depression DM type 2 (diabetes mellitus, type 2) HIV (human immunodeficiency virus infection) Surgical History No pertinent past surgical history Family History Mother Heart disease Social History Smoking Status: Former smoker Tobacco Type: Cigarettes Hx Alcohol Use: Yes Alcohol type: wine Alcohol Intake Frequency: Monthly or Less Hx Substance Use: No Preferred Language: Puerto Rican Communication Ability: Effective Emr Analyst Required: No Beliefs That Will Affect Care: None Current Living Situation: Alone Other Information That Helps Us Care for You: No Feels Safe at Home: Yes Safety Concerns: Feels Safe At This Time Assistive Devices: Glasses Review of Systems Review of Systems: All systems reviewed & are unremarkable except as noted in HPI & below Physical Exam Physical Exam: Temp Pulse Resp BP Pulse Ox 36.4 C L 70 18 130/85 96 01/07/22 07:44 01/07/22 07:44 01/07/22 07:44 01/07/22 07:44 01/07/22 07:44 Constitutional: WD/WN, vitals as above Respiratory: normal respiratory effort, lungs clear to auscultation Cardiovascular: RRR, no murmur, no edema Gastrointestinal (Abdomen): normal bowel sounds, soft, nontender, no hepatosplenomegaly Musculoskeletal: left sided chest pain , reproduced with deep inspiration and palpation of chest wall Skin: no chest wall rashes Neurologic: PERRL, EOMI, accommodation nl, no face palsy, no dysarthria Results & Data ([facility]) Laboratory Results Cardiac Enzymes 01/06/22 01/06/22 01/06/22 Range/Units 12:36 12:36 16:39 AST 28 (13-39) U/L Troponin I High Sens 11.0 10.5 (0-20) pg/ml 01/06/22 Range/Units 22:23 AST (13-39) U/L Troponin I High Sens 9.7 (0-20) pg/ml Coagulation 01/06/22 Range/Units 12:36 PT 10.8 (9.0-12.0) Seconds APTT 27.0 (21.0-31.0) Seconds CBC 01/06/22 01/07/22 Range/Units 12:36 06:01 WBC 7.47 4.66 L (4.8-10.8) K/uL RBC 5.03 4.68 L (4.7-6.1) M/uL Hgb 13.8 L 12.8 L (14.0-18.0) g/dL Hct 41.0 L 38.2 L (42-52) % Plt Count 196 157 (130-400) K/uL Neut # (Auto) 4.02 (1.4-6.5) K/uL Lymph # (Auto) 2.40 (1.2-3.4) K/uL [place] # (Auto) 0.81 H (0.11-0.59) K/uL Eos # (Auto) 0.21 (0-0.5) K/uL Baso # (Auto) 0.01 (0-0.2) K/uL Comprehensive Metabolic Panel 01/06/22 01/07/22 Range/Units 12:36 06:01 Sodium 135 L 136 (136-145) mmol/L Potassium 3.8 3.8 (3.5-5.1) mmol/L Chloride 107 110 H (98-107) mmol/L Carbon Dioxide 22 19 L (21-32) mmol/L BUN 37 H 42 H (6-23) mg/dl Creatinine 2.79 H 2.95 H (0.6-1.4) mg/dl Glucose 98 120 H (70-99(Fasting)) mg/dl Calcium 9.6 8.6 (8.5-10.1) mg/dl AST 28 (13-39) U/L ALT 38 (7-52) U/L Alkaline Phosphatase 62 (34-104) U/L Total Protein 7.2 (6.0-8.3) gm/dl Albumin 4.1 (3.4-5.0) gm/dl Intake and Output 01/06/22 01/07/22 01/07/22 22:59 06:59 14:59 Intake Total 240 / 240 Balance 240 / 240 Intake: Oral 240 / 240 Other: # Unmeasured Voids 1 1 Weight 79.379 kg 80.8 kg Weight Measurement Method Standing Scale Built in [facility] Diagnostic Findings EKG performed 01/06/22: SR at 76 bpm, first degree AVB, LBBB, QRS 170 ms echo performed this am and reviewed independently: Hypokinesis of the inferior wall at the basal and mid levels. LVEF 45-50%.
--- NOTE | 2022-01-07 10:07 | Electrocardiogram Report ---
Test Reason : Blood Pressure : / mmHG Vent. Rate : 076 BPM Atrial Rate : 076 BPM P-R Int : 206 ms QRS Dur : 170 ms QT Int : 440 ms P-R-T Axes : 038 -10 154 degrees QTc Int : 495 ms Normal sinus rhythm Left bundle branch block Abnormal ECG When compared with ECG of 06-JAN-2022 12:51, No significant change was found Confirmed by Ryland Michelle ([id number]) on 01/07/2022 10:07:09 AM Referred By: REFERRED SELF Confirmed By:Ryland Michelle
--- NOTE | 2022-01-07 14:53 | Myocardial Perfusion Study ---
Date of Service January 07, 2022 Myocardial Perfusion Study [facility] Myocardial Perfusion Study Report [place] Act 112: Negative (Results provided to shiva during hospital stay. ) Procedure: 1. Myocardial perfusion study performed in multiple views/images 2. Lexiscan pharmacologic stress ECG Indications: 1. Chest discomfort, history of coronary heart disease, past inferior wall myocardial infarction Ordering physician: Dr Lucas Procedural details: For the stress portion of the study, Lexiscan 0.4 mg was intravenously administered followed by a saline flush. This was followed by [ ] mCi of technetium 99m Cardiolite, injected at 32.8 on 11:31 AM, on 01/06/2022 30 minutes following the injection, imaging of the heart was performed in multiple projections. For the rest portion of the study, 10.4 mCi technetium 99m Cardiolite was injected intravenously at 9:37 AM, 01/07/2022. 1 hour following the injection, imaging of the heart was performed in the same projections. Lexiscan stress ECG: Resting ECG demonstrated: Sinus rhythm with left bundle branch block and resultant repolarization changes. A Lexiscan stress protocol was performed the patient receiving 0.4 mg of IV Lexiscan (regadenoson). The baseline EKG revealed sinus rhythm at 61 bpm with left bundle branch block morphology and related repolarization changes. The resting heart rate of 57 bpm jenise to a maximum heart rate of 79 bpm. This represents 48% of the maximal age- predicted heart rate. The resting blood pressure of 130/83, with lowest blood pressure 119/77 after having received Lexiscan. Patient had a transient sensation of feeling short of breath with administration of Lexiscan that resolved early in the post-rest recovery interval. His presenting symptoms of chest discomfort were not reproduced. Findings: Rotating raw imaging demonstrated no significant lung uptake. There is no significant motion artifact. Heart size appeared normal. Stress myocardial perfusion demonstrated a moderate sized inferior, inferolateral perfusion defect encompassing the basal and mid segments and to a lesser degree the apical segments. The resting perfusion images were unchanged with findings of a fixed inferior, inferolateral perfusion defect. Ejection fraction: 42% Wall motion: Inferior, inferolateral hypokinesis No significant transient ischemic dilation. Impression: 1. Lexiscan myocardial perfusion imaging study is abnormal with findings of a moderate sized fixed inferior, inferolateral perfusion defect of moderate to severe intensity consistent with scar without superimposed ischemia. Perfusion to the remaining myocardial segments was normal. Findings correlate well with the patient's known past history of right coronary artery territory myocardial infarction. 2. The stress EKG response was equivocal for excluding ischemia due to the presence of underlying left bundle branch block. 3. There is hypokinesis to akinesis of the inferior, inferolateral weaver, LVEF 42% (mildly reduced).
--- NOTE | 2022-01-07 14:55 | Communication Note ---
Date of Service: January 07, 2022 Pharmacologic nuclear stress test findings consistent with RCA territory scar without superimposed ischemia, LVEF 42%. Physical exam suggest chest wall pain, perhaps musculoskeletal. Recommend appropriate analgesic treatment perhaps Tylenol. If patient interested in establishing care with our group locally, would recommend follow-up visit at an interval of 1 to 2 months. Continue long-term dual antiplatelet therapy with aspirin and prasugrel given complex RCA territory intervention on 2 separate occasions.
--- NOTE | 2022-01-07 18:54 | Hospitalist Progress Note ---
Date of Service January 07, 2022 Assessment & Plan (1) Chest pain: (2) CAD (coronary artery disease): Plan: Atypical presentation Mostly musculoskeletal component History of CAD s/p stenting in 2016 and 2019. Troponin x 3 negative EKG showed no ischemic changes ECHO showed mild left ventricular systolic dysfunction, LVEF in the range of 45- 50% Cardiology on board Pharmacologic nuclear stress test findings consistent with RCA territory scar without superimposed ischemia, LVEF 42%. No further testing as per cardio Tylenol for the pain Continue aspirin and prasugrel Follow up with cardiology in 1 to 2 months if plan to establish with our local cardiology (3) HIV (human immunodeficiency virus infection): Plan: On Juluca CD4 count and viral load pending (4) CKD (chronic kidney disease), stage IV: Plan: Patient reports baseline creatinine is 3.0 Creatinine noted be 2.9 today Monitor renal functions Patient also states that he is on the renal transplant list through [facility] in [facility] (5) DM type 2 (diabetes mellitus, type 2): Plan: Most recent Hba1c 12.8 NovoLog per protocol while hospitalized (6) DVT prophylaxis: Plan: SQ heparin (7) Discharge planning issues: Plan: Patient moved to the area about 6 months ago and has not established any medical care. Previous providers include - Dr. Polo Ray with infectious disease/HIV management -[facility], transplant medicine [facility], PCP Celso Gambino, TIM [facility], Dr. Teodoro Egan [facility] cardiology, Dr. Jb Rodriguez [facility] nephrology. Admission and Anticipated Discharge Date Admission Date: January 06, 2022 Subjective Pt was seen and examined for follow up of chest pain Lying in bed with no acute distress Pt said pain improves significantly He said he is only having mild pain around his left axillary area Tenderness when pushing left side of his rib Denies any chest pain, palpitation, dizziness and SOB Review of Systems Review of Systems: All systems reviewed & are unremarkable except as noted in Subjective Physical Exam Physical Exam: General- No acute distress Head- atraumatic Eyes- PERRL, EOMI, ENT- oropharynx clear Neck- supple, no JVD Lungs- clear to auscultation Heart- regular rhythm; no murmur Abdomen- normal bowel sounds, soft, nontender Extremities- no calf tenderness Neuro- alert, oriented x 3; PERRL, EOMI; no facial palsy; no dysarthria Skin- warm & dry Results & Data Results & Data ([facility]) Vital Signs (Past 12 Hours) Vital Signs Temp Pulse Pulse Resp BP Pulse Ox Pulse Ox 01/07/22 16:00 98 01/07/22 15:44 36.4 C L 70 18 110/64 96 01/07/22 15:25 66 01/07/22 12:17 36.4 C L 62 18 149/82 H 99 01/07/22 07:44 36.4 C L 70 18 130/85 96 01/07/22 07:09 66
[2022-01-07] MEDS: ATORVASTATIN 40 MG TAB PO SCH (20:40)
[2022-01-08] MEDS: HEPARIN SOD 5,000 UNIT/0.5 ML VIAL SQ SCH (05:55)
[2022-01-08] MEDS ORDERED: INSULIN GLARGINE SOLOSTAR 100 UNITS/ML 3 ML PEN SQ SCH (09:00)
[2022-01-08] MEDS: INSULIN ASPART PER UNIT SC SCH (09:18)
[2022-01-08] MEDS: FLUoxetine HCL 20 MG CAP PO SCH (09:28)
[2022-01-08] MEDS: SODIUM BICARBONATE 650 MG TAB PO SCH (09:28)
[2022-01-08] MEDS: CALCITRIOL 0.25 MCG CAPSULE PO SCH (09:28)
[2022-01-08] MEDS: PRASugrel TAB 10 MG TAB PO SCH (09:28)
[2022-01-08] MEDS: METOPROLOL TARTRATE 25 MG TAB PO SCH (09:28)
[2022-01-08] MEDS: ASPIRIN 81 MG ECTAB PO SCH (09:28)
--- NOTE | 2022-01-08 10:07 | Discharge Summary ---
Date of Service January 08, 2022 Admission HPI Per Admitting Provider 66-year-old male with PMH HIV, CAD s/p stenting, CKD stage IV, DM type II on insulin, and other problems listed below who presents to the ED for evaluation of chest pain. Patient reports he developed a discomfort under his left axilla yesterday. Eats that he felt as though he may have pulled a muscle. This morning, while doing some chores around the house, he developed a similar pain under his right axilla and also a precordial chest tightness. Patient reports chest tightness was similar to prior MIs. Also reports associated shortness of breath, nausea, and indigestion. Patient drove himself to the ED for further evaluation. Patient reports he otherwise has been feeling well recently. Recently moved to the area about 6 months ago and has not established any medical care. Patient denies any other recent illnesses, fevers, chills. No abdominal pain, vomiting, diarrhea. No urinary symptoms. Patient received full dose aspirin and SL nitro x 1 and is currently chest pain-free. Patient is hemodynamically stable. EKG demonstrates LBBB, unfortunately no EKGs to compare to. Initial HS troponin negative. Creat 2.79 (patient reports baseline is 3.0). Admission Exam Per Admitting Provider Constitutional: WD/WN, vitals as above Eyes: PERRL, conjunctivae normal, anicteric sclerae ENMT: external ear and nose normal, oropharynx normal Respiratory: normal respiratory effort, lungs clear to auscultation Cardiovascular: Rate/Rhythm: regular rate and regular rhythm Vessels: normal peripheral pulses Extremities: no edema Gastrointestinal (Abdomen): normal bowel sounds, soft, nontender, no hepatosplenomegaly Musculoskeletal: no cyanosis or clubbing, extremities motor strength 5/5 Skin: no rashes, warm and dry Neurologic: PERRL, EOMI, accommodation nl, no face palsy, no dysarthria Psychiatric: A+Ox3, euthymic affect Principal Diagnosis (1) Chest pain: (2) CAD (coronary artery disease): (3) HIV (human immunodeficiency virus infection): (4) CKD (chronic kidney disease), stage IV: (5) DM type 2 (diabetes mellitus, type 2): Discharge Exam General- No acute distress Head- atraumatic Eyes- PERRL, EOMI, ENT- oropharynx clear Neck- supple, no JVD Lungs- clear to auscultation Heart- regular rhythm; no murmur Abdomen- normal bowel sounds, soft, nontender Extremities- no calf tenderness Neuro- alert, oriented x 3; PERRL, EOMI; no facial palsy; no dysarthria Skin- warm & dry Discharge Data Allergies Allergy/AdvReac Type Severity Reaction Status Date / Time No Known Allergies Allergy Unverified 01/06/22 15:38 Consultations 01/06/22 14:05 ED Decision to Admit Stat 01/06/22 15:11 Consult Health Information Management Routine 01/06/22 16:00 Consult Cardiology Routine Ordered Studies Myocardial Perfusion Study Report [place] Act 112: Negative (Results provided to [facility] during hospital stay. ) Procedure: 1. Myocardial perfusion study performed in multiple views/images 2. Lexiscan pharmacologic stress ECG Indications: 1. Chest discomfort, history of coronary heart disease, past inferior wall myocardial infarction Ordering physician: Dr Lucas Procedural details: For the stress portion of the study, Lexiscan 0.4 mg was intravenously administered followed by a saline flush. This was followed by [ ] mCi of technetium 99m Cardiolite, injected at 32.8 on 11:31 AM, on 01/06/2022 30 minutes following the injection, imaging of the heart was performed in multiple projections. For the rest portion of the study, 10.4 mCi technetium 99m Cardiolite was injected intravenously at 9:37 AM, 01/07/2022. 1 hour following the injection, imaging of the heart was performed in the same projections. Lexiscan stress ECG: Resting ECG demonstrated: Sinus rhythm with left bundle branch block and resultant repolarization changes. A Lexiscan stress protocol was performed the patient receiving 0.4 mg of IV Lexiscan (regadenoson). The baseline EKG revealed sinus rhythm at 61 bpm with left bundle branch block morphology and related repolarization changes. The resting heart rate of 57 bpm jenise to a maximum heart rate of 79 bpm. This represents 48% of the maximal age- predicted heart rate. The resting blood pressure of 130/83, with lowest blood pressure 119/77 after having received Lexiscan. Patient had a transient sensation of feeling short of breath with administration of Lexiscan that resolved early in the post-rest recovery interval. His presenting symptoms of chest discomfort were not reproduced. Findings: Rotating raw imaging demonstrated no significant lung uptake. There is no significant motion artifact. Heart size appeared normal. Stress myocardial perfusion demonstrated a moderate sized inferior, inferolateral perfusion defect encompassing the basal and mid segments and to a lesser degree the apical segments. The resting perfusion images were unchanged with findings of a fixed inferior, inferolateral perfusion defect. Ejection fraction: 42% Wall motion: Inferior, inferolateral hypokinesis No significant transient ischemic dilation. Impression: 1. Lexiscan myocardial perfusion imaging study is abnormal with findings of a moderate sized fixed inferior, inferolateral perfusion defect of moderate to severe intensity consistent with scar without superimposed ischemia. Perfusion to the remaining myocardial segments was normal. Findings correlate well with the patient's known past history of right coronary artery territory myocardial infarction. 2. The stress EKG response was equivocal for excluding ischemia due to the pr esence of underlying left bundle branch block. 3. There is hypokinesis to akinesis of the inferior, inferolateral weaver, LVEF 42% (mildly reduced). Signed By: <Electronically signed by Simeon Lucas DO> Created/Dictated:01/07/22 1445 Transcribed: 01/07/22 144 XR chest 1V portable CLINICAL HISTORY: Atypical chest pain. COMPARISON STUDY: Chest radiograph June 14, 2012. FINDINGS: There is no pneumothorax or pleural effusion. Moderate elevation of the left hemidiaphragm is similar to prior exams. Note is made of cardiomegaly without evidence for pulmonary edema. Mild left basilar opacity favors atelectasis. No consolidation to suggest pneumonia. IMPRESSION: 1. No acute cardiopulmonary findings. 2. Cardiomegaly with evidence for pulmonary edema. 3. Moderate elevation of the left hemidiaphragm, unchanged. ACT 112: Negative or not required by law. Electronically signed by: Igor Roberts M.D. 01/06/2022 12:58 PM Dictated:01/06/22 1256 Transcribed: 01/06/22 1256 Diabetes Follow up Diabetes Follow-up Needed for HgbA1c >9% Hospital Course (1) Chest pain: (2) CAD (coronary artery disease): Atypical presentation Mostly musculoskeletal component History of CAD s/p stenting in 2016 and 2019. Troponin x 3 negative EKG showed no ischemic changes ECHO showed mild left ventricular systolic dysfunction, LVEF in the range of 45-50% Cardiology on board Pharmacologic nuclear stress test findings consistent with RCA territory scar without superimposed ischemia, LVEF 42%. No further testing as per cardio Tylenol for the pain Continue aspirin and prasugrel Follow up with cardiology in 1 to 2 months if plan to establish with our local cardiology (3) HIV (human immunodeficiency virus infection): On Juluca CD4 count and viral load pending - Your new PCP will be able to discuss the result with you You will need to establish with ID (4) CKD (chronic kidney disease), stage IV: Patient reports baseline creatinine is 3.0 Creatinine noted be 2.9 today Monitor renal functions Patient also states that he is on the renal transplant list through [facility] (5) DM type 2 (diabetes mellitus, type 2): Most recent Hba1c 12.8 NovoLog per protocol while hospitalized (6) DVT prophylaxis: SQ heparin (7) Discharge planning issues: Patient moved to the area about 6 months ago and has not established any medical care. Previous providers include - Dr. Polo Ray with infectious disease/HIV management -[facility], transplant medicine [facility], PCP TIM Irizarry [facility], Dr. Teodoro Egan [facility] cardiology, Dr. Jb Rodriguez [facility] nephrology. Total Time Total Time Spent Total Time Spent (In Minutes): 35 minutes Discharge Plan Discharge Items Patient Disposition: Home - Self-Care Reason For Visit: CHEST PAIN Discharge Diagnosis: (1) Chest pain: (2) CAD (coronary artery disease): (3) HIV (human immunodeficiency virus infection): (4) CKD (chronic kidney disease), stage IV: (5) DM type 2 (diabetes mellitus, type 2): Activity: Resume your previous activity Non-emergency contact: Primary Care Provider and Process Control Tech Call non-emergency contact if: you have any medication questions and your symptoms worsen Follow-up/Referrals: [facility] [Other] (The Cardiology office will call you for an appointment. Should you not hear from them, please call . Thank you) Simeon Lucas DO [Process Control Tech] - (Date & Time 02/16/2022 10:00 AM Provider Simeon Lucas DO Department Cardiology, [facility] ) Michelle Bojorquez CRNP [Outside Practitioners] - (Date & Time 01/13/2022 10:00 AM Provider TIM Arguello [facility] [address], [place] [id number] ) Diet: Carb Consistent or DM2 Addtl Attending Provider Instructions: Follow up with your new provider 01/13/2022 10:00 AM Provider TIM Arguello [facility] [address], [place] [id number] Follow up with cardiology Dr. Lucas in 1 to 2 months (your provider will place for the referral ) You will need to establish with nephrology (your provider will place for the referral ) Continue monitor your blood sugar and bring your blood sugar log at your next appointment with your provider Insulin Glargine increased to 24 units daily. Follow up a healthy diabetes diet and limited concentrate sweet intake Seek medical attention if your symptoms reoccur Results are pending for CD4 count and viral load. Your provider will discuss the result for your CD4 count and HIV Viral load at your next appointment Pending Studies at Discharge: Yes Studies:: CD4 count and HIV viral load Stand-Alone Forms: My [facility], Smoking Cessation Medications and DC Order Prescriptions: Continued atorvastatin 40 mg tablet 40 mg PO QAM RF: 0 vitamin E 100 unit Capsule 0 unit PO QAM RF: 0 coenzyme Q10 [Co Q-10] 50 mg Capsule 0 mg PO QAM RF: 0 sodium bicarbonate 650 mg tablet 1,300 mg PO QAM RF: 0 fluoxetine 20 mg capsule 20 mg PO QAM RF: 0 calcitriol 0.25 mcg capsule 0.25 mcg PO QAM RF: 0 insulin aspart U-100 [Novolog Flexpen U-100 Insulin] 100 unit/mL (3 mL) insulin pen See Rx Instructions .ROUTE .COMPLEX RF: 0 metoprolol tartrate 25 mg tablet 25 mg PO QAM RF: 0 prasugrel 10 mg tablet 10 mg PO QAM RF: 0 Juluca 50-25 mg tablet 1 tab PO QAM RF: 0 multivitamin Tablet 1 tab PO QAM RF: 0 omega 8-yid-rts-fish oil [Fish Oil] 1,000 mg (120 mg-180 mg) Capsule 2 cap PO QAM RF: 0 Aspir-81 81 mg 1 tab PO DAILY RF: 0 Changed Basaglar KwikPen U-100 Insulin 100 unit/mL (3 mL) insulin pen 24 unit SUBCUT QAM Qty: 0 RF: 0 Discontinued aspirin 81 mg Tablet,Delayed Release (Dr/Ec) 81 mg PO QAM RF: 0 Discharge Orders: Discharge Order (Routine); Ordered 01/08/22 Ordered By: Gladis Anders/Other Patient Handouts: High Blood Sugar (Hyperglycemia), Managing Type 2 Diabetes Admission Data Admit Date/Time: 01/06/22 14:18 Attending Provider: Gladis Crockett Admit Provider: Jeannette Pierre Primary Care Provider: PCP,NO Other Providers: Jeannette Pierre ; Simeon Lucas Other Interventions: Discharge Summary Assessment (RN) Last Done: 01/08/22 10:38
== END 2022-01-08 12:00 | disposition home or self-care (01) ==
LOC: ED 12:16 → 2S 12:16 → SUATTDRO 14:18 → 2S 15:20

== ENCOUNTER 2022-10-30 21:37 | Observation (INO) ==
[2022-10-30] MEDS ORDERED: SODIUM CHLORIDE 0.9% 1000ML 1,000 ML IV ONE (22:03)
--- NOTE | 2022-10-30 22:10 | Emergency Department Note ---
History of Present Illness General Chief complaint: Syncope Stated complaint: Syncope, Hyperglycemia Time Seen by Provider: 10/30/22 21:51 History of Present Illness Six 7-year-old gentleman with HIV and chronic kidney disease presents to the ER for hyperglycemia and syncope tonight. Patient states he feels weak. Patient denies chest pain, dyspnea, abdominal pain, vomiting, diarrhea, fever, chills. Blood sugars are not normally this high. Patient states has been feeling off the past few days. Home Medications Medication Instructions Recorded Confirmed Type atorvastatin 40 mg tablet 40 mg PO QAM 01/06/22 01/06/22 History calcitriol 0.25 mcg capsule 0.25 mcg PO QAM 01/06/22 01/06/22 History coenzyme Q10 50 mg capsule (Co 0 mg PO QAM 01/06/22 01/06/22 History Q-10) dolutegravir 50 mg-rilpivirine 25 1 tab PO QAM 01/06/22 01/06/22 History mg tablet (Juluca) fluoxetine 20 mg capsule 20 mg PO QAM 01/06/22 01/06/22 History insulin aspart U-100 100 unit/mL See Rx Instructions .Route .COMPLEX 01/06/22 01/06/22 History (3 mL) subcutaneous pen (Novolog FlexPen U-100 Insulin aspart) metoprolol tartrate 25 mg tablet 25 mg PO QAM 01/06/22 01/06/22 History multivitamin 1 tab PO QAM 01/06/22 01/06/22 History omega 9-jjm-umy-fish oil 1,000 mg 2 cap PO QAM 01/06/22 01/06/22 History (120 mg-180 mg) capsule (Fish Oil) prasugrel 10 mg tablet 10 mg PO QAM 01/06/22 01/06/22 History sodium bicarbonate 650 mg tablet 1,300 mg PO QAM 01/06/22 01/06/22 History vitamin E 100 unit capsule 0 unit PO QAM 01/06/22 01/06/22 History Aspir-81 1 tab PO DAILY 01/08/22 01/08/22 History insulin glargine 100 unit/mL (3 24 unit (0.24 mL) subcut QAM #0 mL 01/08/22 01/06/22 Rx mL) subcutaneous pen (Basaglar KwikPen U-100 Insulin) Allergies Allergy/AdvReac Type Severity Reaction Status Date / Time No Known Allergies Allergy Unverified 01/06/22 15:38 Past Med/Surg History Medical History Depression Surgical History No pertinent past surgical history Family History Mother Heart disease Social History Smoking Status: Unknown if ever smoked Tobacco Type: Cigarettes Hx Alcohol Use: Yes Alcohol type: wine Alcohol Intake Frequency: Monthly or Less Hx Substance Use: No Preferred Language: Sammarinese Communication Ability: Effective Environmental Health Sanitarian Required: No Beliefs That Will Affect Care: None Current Living Situation: Alone Feels Safe at Home: Yes Assistive Devices: Glasses Review of Systems A total of 10 systems reviewed and were otherwise negative Physical Exam Vital Signs Vital Signs - 24 hr 10/30/22 21:55 10/30/22 21:55 10/30/22 21:46 Temperature 37.1 C Temperature Source Oral Pulse Rate 78 78 74 Pulse Rate [Radial] Respiratory Rate 20 20 Respiratory Effort / Characteristics Respiratory Depth Respiratory Pattern Blood Pressure 130/98 Blood Pressure [Right Arm] Blood Pressure Mean 108 Blood Pressure Mean [Right Arm] Blood Pressure Position Lying Pulse Oximetry 95 95 Oxygen Delivery Method Room Air Room Air Sepsis Recent Fever Within 48 Hours No Sepsis New/Unexplained Change in Mental Status No Sepsis Action Taken by Nursing No Action Required 10/31/22 00:00 Temperature Temperature Source Pulse Rate Pulse Rate [Radial] 71 Respiratory Rate 16 Respiratory Effort / Characteristics Non-Labored Spontaneous Respiratory Depth Normal Respiratory Pattern Regular Blood Pressure Blood Pressure [Right Arm] 143/83 H Blood Pressure Mean Blood Pressure Mean [Right Arm] 103 Blood Pressure Position Pulse Oximetry 95 Oxygen Delivery Method Room Air Sepsis Recent Fever Within 48 Hours Sepsis New/Unexplained Change in Mental Status Sepsis Action Taken by Nursing VITALS: Vitals are noted on the nurse's note and reviewed by myself. Vital signs stable. GENERAL: Pleasant male following commands, in no acute distress, nondiaphoretic, well-developed well-nourished. SKIN: The skin was without rashes, erythema, edema, or bruising. There is no tenting of the skin. Capillary reflex less than 2 seconds. HEAD: Normocephalic atraumatic. EARS: External auditory canals clear, EYES: Pupils equal round and reactive to light and accommodation. Conjunctivae without injection, sclerae without icterus. Extraocular movements intact. NOSE: Patent, turbinates without inflammation or discharge. MOUTH: Mucous membranes moist. Pharynx without erythema or exudate. Uvula midline. Airway patent. Tongue does not deviate. NECK: Supple without nuchal rigidity. No lymphadenopathy. No thyromegaly. Cervical spine is nontender. No JVD. HEART: Regular rate and rhythm LUNGS: Clear to auscultation bilaterally without wheezes, rales or rhonchi. No retractions or accessory muscle use. ABDOMEN: Positive bowel sounds x 4. Normal tympanic percussion. Soft, nontender, without masses or organomegaly. Villegas sign negative. No guarding or rebound tenderness. No CVA tenderness MUSCULOSKELETAL: No muscle atrophy, erythema, or edema noted. NEURO: Patient was alert and oriented to person place and time. Normal sensat ion to light and sharp touch. No focal neurological deficits. Course Administered Medications Discontinued Medications Sodium Chloride (Nss 1000ml) 1,000 mls @ 999 mls/hr IV .Q1H1M ONE Stop: 10/30/22 23:03 Last Infusion: 10/30/22 23:28 Dose: 0 mls/hr Documented By: Admin: 10/30/22 22:23 Dose: 999 mls/hr Documented By: QGV Insulin Human Regular (Novolin-R Insulin Per Unit Charge) 10 units IV NOW STA Stop: 10/30/22 23:43 Last Admin: 10/30/22 23:51 Dose: 10 units Documented By: XU Co-signed By: LOS Medical Decision Making Medical Records Attestation: I reviewed the patient's medical records. Home Medications Current Medication List: was personally reviewed by me Laboratory Data Attestation: I reviewed the patient's lab results. 10/30/22 21:50 10/30/22 21:50 Lab Results 10/30/22 10/30/22 10/30/22 Range/Units 21:46 21:50 21:50 WBC 6.11 (4.8-10.8) K/ul RBC 4.93 (4.70-6.10) M/uL Hgb 13.8 L (14.0-18.0) g/dl Hct 40.7 L (42.0-52.0) % MCV 82.6 (80.0-100.0) fL MCH 28.0 (25.0-34.0) pg MCHC 33.9 (32.0-36.0) g/dL RDW Std Deviation 40.4 (36.4-46.3) fL RDW Coeff of Meera 13.7 (11.5-14.5) % Plt Count 184 (130-400) K/uL MPV 9.5 (9.4-12.4) fL Immature Gran % (Auto) 0.5 % Neut % (Auto) 57.6 % Lymph % (Auto) 29.6 % [place] % (Auto) 9.5 % Eos % (Auto) 2.5 % Baso % (Auto) 0.3 % Neut # (Auto) 3.52 (1.40-6.50) K/uL Lymph # (Auto) 1.81 (1.2-3.4) K/uL [place] # (Auto) 0.58 (0.11-0.59) K/uL Eos # (Auto) 0.15 (0-0.50) K/uL Baso # (Auto) 0.02 (0-0.2) K/uL Immature Gran # (Auto) 0.03 (0.01-0.20) K/uL PT 10.5 (9.0-12.0) Seconds INR 1.0 (0.9-1.1) APTT 25.5 (21.0-31.0) Seconds PTT Ratio 0.9 D-Dimer 400 (0-500) ug/L FEU VBG pH (7.36-7.41) VBG pCO2 (38-50) mmHg VBG pO2 mmHg VBG HCO3 mmol/L VBG O2 Saturation % VBG Base Excess mEq/L Sodium (136-145) mmol/L Potassium (3.5-5.1) mmol/L Chloride (98-107) mmol/L Carbon Dioxide (21-32) mmol/L Anion Gap (3-11) BUN (6-23) mg/dl Creatinine (0.6-1.4) mg/dl Est Cr Clr Drug Dosing ml/min Est GFR ( Amer) ml/min Est GFR (Non-Af Amer) ml/min BUN/Creatinine Ratio (10-20) Glucose (70-99(Fasting)) mg/dl POC Glucose 436 H* (70-99) mg/dl Lactate (0.4-2.0) mmol/L Calcium (8.5-10.1) mg/dl Magnesium (1.7-2.4) mg/dl Total Bilirubin (0.2-1.0) mg/dl AST (13-39) U/L ALT (7-52) U/L Alkaline Phosphatase (34-104) U/L Total Creatine Kinase (30-223) U/L Troponin I High Sens (0-20) pg/ml Total Protein (6.0-8.3) gm/dl Albumin (3.4-5.0) gm/dl Globulin (2.5-4.0) gm/dl Albumin/Globulin Ratio (0.9-2) Lipase (11-82) U/L TSH (0.300-4.500) uIu/ml Free T4 (0.61-1.60) ng/dl Urine Color Urine Appearance (Clear) Urine pH (4.5-7.5) Ur Specific Emmons (1.000-1.030) Urine Protein (Negative) Urine Glucose (UA) (Negative) Urine Ketones (Negative) Urine Blood (Negative) Urine Nitrite (Negative) Urine Bilirubin (Negative) Urine Urobilinogen (Negative) Ur Leukocyte Esterase (Negative) Urine WBC (Auto) (0-5) /hpf Urine RBC (Auto) (0-4) /hpf U Hyaline Cast (Auto) (0-5) /lpf U Epithel Cells (Auto) (0-5) /lpf Urine Bacteria (Auto) (Negative) SARS-CoV-2 (PCR) (Negative) Influenza Type A (PCR) (Neg) Influenza Type B (PCR) (Neg) RSV (RT-PCR) (Neg) 10/30/22 10/30/22 10/30/22 Range/Units 21:50 21:50 22:20 WBC (4.8-10.8) K/ul RBC (4.70-6.10) M/uL Hgb (14.0-18.0) g/dl Hct (42.0-52.0) % MCV (80.0-100.0) fL MCH (25.0-34.0) pg MCHC (32.0-36.0) g/dL RDW Std Deviation (36.4-46.3) fL RDW Coeff of Meera (11.5-14.5) % Plt Count (130-400) K/uL MPV (9.4-12.4) fL Immature Gran % (Auto) % Neut % (Auto) % Lymph % (Auto) % [place] % (Auto) % Eos % (Auto) % Baso % (Auto) % Neut # (Auto) (1.40-6.50) K/uL Lymph # (Auto) (1.2-3.4) K/uL [place] # (Auto) (0.11-0.59) K/uL Eos # (Auto) (0-0.50) K/uL Baso # (Auto) (0-0.2) K/uL Immature Gran # (Auto) (0.01-0.20) K/uL PT (9.0-12.0) Seconds INR (0.9-1.1) APTT (21.0-31.0) Seconds PTT Ratio D-Dimer (0-500) ug/L FEU VBG pH (7.36-7.41) VBG pCO2 (38-50) mmHg VBG pO2 mmHg VBG HCO3 mmol/L VBG O2 Saturation % VBG Base Excess mEq/L Sodium 130 L (136-145) mmol/L Potassium 4.6 (3.5-5.1) mmol/L Chloride 102 (98-107) mmol/L Carbon Dioxide 21 (21-32) mmol/L Anion Gap 7 (3-11) BUN 55 H (6-23) mg/dl Creatinine 3.39 H (0.6-1.4) mg/dl Est Cr Clr Drug Dosing 20.6 ml/min Est GFR ( Amer) 20.3 ml/min Est GFR (Non-Af Amer) 17.5 ml/min BUN/Creatinine Ratio 16.2 (10-20) Glucose 481 H* (70-99(Fasting)) mg/dl POC Glucose (70-99) mg/dl Lactate (0.4-2.0) mmol/L Calcium 11.3 H (8.5-10.1) mg/dl Magnesium 2.5 H (1.7-2.4) mg/dl Total Bilirubin 0.5 (0.2-1.0) mg/dl AST 39 (13-39) U/L ALT 55 H (7-52) U/L Alkaline Phosphatase 70 (34-104) U/L Total Creatine Kinase 69 (30-223) U/L Troponin I High Sens 10.1 (0-20) pg/ml Total Protein 7.1 (6.0-8.3) gm/dl Albumin 4.1 (3.4-5.0) gm/dl Globulin 3.0 (2.5-4.0) gm/dl Albumin/Globulin Ratio 1.4 (0.9-2) Lipase 25 (11-82) U/L TSH 8.557 H (0.300-4.500) uIu/ml Free T4 0.70 (0.61-1.60) ng/dl Urine Color Yellow Urine Appearance Clear (Clear) Urine pH 5.5 (4.5-7.5) Ur Specific Emmons 1.017 (1.000-1.030) Urine Protein 1+ H (Negative) Urine Glucose (UA) 3+ H (Negative) Urine Ketones Negative (Negative) Urine Blood Negative (Negative) Urine Nitrite Negative (Negative) Urine Bilirubin Negative (Negative) Urine Urobilinogen Negative (Negative) Ur Leukocyte Esterase Negative (Negative) Urine WBC (Auto) 0 (0-5) /hpf Urine RBC (Auto) 0-4 (0-4) /hpf U Hyaline Cast (Auto) 0 (0-5) /lpf U Epithel Cells (Auto) 0-5 (0-5) /lpf Urine Bacteria (Auto) Negative (Negative) SARS-CoV-2 (PCR) (Negative) Influenza Type A (PCR) (Neg) Influenza Type B (PCR) (Neg) RSV (RT-PCR) (Neg) 10/30/22 10/30/22 10/30/22 Range/Units 22:43 22:59 22:59 WBC (4.8-10.8) K/ul RBC (4.70-6.10) M/uL Hgb (14.0-18.0) g/dl Hct (42.0-52.0) % MCV (80.0-100.0) fL MCH (25.0-34.0) pg MCHC (32.0-36.0) g/dL RDW Std Deviation (36.4-46.3) fL RDW Coeff of Meera (11.5-14.5) % Plt Count (130-400) K/uL MPV (9.4-12.4) fL Immature Gran % (Auto) % Neut % (Auto) % Lymph % (Auto) % [place] % (Auto) % Eos % (Auto) % Baso % (Auto) % Neut # (Auto) (1.40-6.50) K/uL Lymph # (Auto) (1.2-3.4) K/uL [place] # (Auto) (0.11-0.59) K/uL Eos # (Auto) (0-0.50) K/uL Baso # (Auto) (0-0.2) K/uL Immature Gran # (Auto) (0.01-0.20) K/uL PT (9.0-12.0) Seconds INR (0.9-1.1) APTT (21.0-31.0) Seconds PTT Ratio D-Dimer (0-500) ug/L FEU VBG pH 7.32 L (7.36-7.41) VBG pCO2 43 (38-50) mmHg VBG pO2 50 mmHg VBG HCO3 22 mmol/L VBG O2 Saturation 80.8 % VBG Base Excess -3.9 mEq/L Sodium (136-145) mmol/L Potassium (3.5-5.1) mmol/L Chloride (98-107) mmol/L Carbon Dioxide (21-32) mmol/L Anion Gap (3-11) BUN (6-23) mg/dl Creatinine (0.6-1.4) mg/dl Est Cr Clr Drug Dosing ml/min Est GFR ( Amer) ml/min Est GFR (Non-Af Amer) ml/min BUN/Creatinine Ratio (10-20) Glucose (70-99(Fasting)) mg/dl POC Glucose (70-99) mg/dl Lactate 0.9 (0.4-2.0) mmol/L Calcium (8.5-10.1) mg/dl Magnesium (1.7-2.4) mg/dl Total Bilirubin (0.2-1.0) mg/dl AST (13-39) U/L ALT (7-52) U/L Alkaline Phosphatase (34-104) U/L Total Creatine Kinase (30-223) U/L Troponin I High Sens (0-20) pg/ml Total Protein (6.0-8.3) gm/dl Albumin (3.4-5.0) gm/dl Globulin (2.5-4.0) gm/dl Albumin/Globulin Ratio (0.9-2) Lipase (11-82) U/L TSH (0.300-4.500) uIu/ml Free T4 (0.61-1.60) ng/dl Urine Color Urine Appearance (Clear) Urine pH (4.5-7.5) Ur Specific Emmons (1.000-1.030) Urine Protein (Negative) Urine Glucose (UA) (Negative) Urine Ketones (Negative) Urine Blood (Negative) Urine Nitrite (Negative) Urine Bilirubin (Negative) Urine Urobilinogen (Negative) Ur Leukocyte Esterase (Negative) Urine WBC (Auto) (0-5) /hpf Urine RBC (Auto) (0-4) /hpf U Hyaline Cast (Auto) (0-5) /lpf U Epithel Cells (Auto) (0-5) /lpf Urine Bacteria (Auto) (Negative) SARS-CoV-2 (PCR) NEGATIVE (Negative) Influenza Type A (PCR) Negative (Neg) Influenza Type B (PCR) Negative (Neg) RSV (RT-PCR) Negative (Neg) 10/31/22 Range/Units 00:40 WBC (4.8-10.8) K/ul RBC (4.70-6.10) M/uL Hgb (14.0-18.0) g/dl Hct (42.0-52.0) % MCV (80.0-100.0) fL MCH (25.0-34.0) pg MCHC (32.0-36.0) g/dL RDW Std Deviation (36.4-46.3) fL RDW Coeff of Meera (11.5-14.5) % Plt Count (130-400) K/uL MPV (9.4-12.4) fL Immature Gran % (Auto) % Neut % (Auto) % Lymph % (Auto) % [place] % (Auto) % Eos % (Auto) % Baso % (Auto) % Neut # (Auto) (1.40-6.50) K/uL Lymph # (Auto) (1.2-3.4) K/uL [place] # (Auto) (0.11-0.59) K/uL Eos # (Auto) (0-0.50) K/uL Baso # (Auto) (0-0.2) K/uL Immature Gran # (Auto) (0.01-0.20) K/uL PT (9.0-12.0) Seconds INR (0.9-1.1) APTT (21.0-31.0) Seconds PTT Ratio D-Dimer (0-500) ug/L FEU VBG pH (7.36-7.41) VBG pCO2 (38-50) mmHg VBG pO2 mmHg VBG HCO3 mmol/L VBG O2 Saturation % VBG Base Excess mEq/L Sodium (136-145) mmol/L Potassium (3.5-5.1) mmol/L Chloride (98-107) mmol/L Carbon Dioxide (21-32) mmol/L Anion Gap (3-11) BUN (6-23) mg/dl Creatinine (0.6-1.4) mg/dl Est Cr Clr Drug Dosing ml/min Est GFR ( Amer) ml/min Est GFR (Non-Af Amer) ml/min BUN/Creatinine Ratio (10-20) Glucose (70-99(Fasting)) mg/dl POC Glucose 306 H* (70-99) mg/dl Lactate (0.4-2.0) mmol/L Calcium (8.5-10.1) mg/dl Magnesium (1.7-2.4) mg/dl Total Bilirubin (0.2-1.0) mg/dl AST (13-39) U/L ALT (7-52) U/L Alkaline Phosphatase (34-104) U/L Total Creatine Kinase (30-223) U/L Troponin I High Sens (0-20) pg/ml Total Protein (6.0-8.3) gm/dl Albumin (3.4-5.0) gm/dl Globulin (2.5-4.0) gm/dl Albumin/Globulin Ratio (0.9-2) Lipase (11-82) U/L TSH (0.300-4.500) uIu/ml Free T4 (0.61-1.60) ng/dl Urine Color Urine Appearance (Clear) Urine pH (4.5-7.5) Ur Specific Emmons (1.000-1.030) Urine Protein (Negative) Urine Glucose (UA) (Negative) Urine Ketones (Negative) Urine Blood (Negative) Urine Nitrite (Negative) Urine Bilirubin (Negative) Urine Urobilinogen (Negative) Ur Leukocyte Esterase (Negative) Urine WBC (Auto) (0-5) /hpf Urine RBC (Auto) (0-4) /hpf U Hyaline Cast (Auto) (0-5) /lpf U Epithel Cells (Auto) (0-5) /lpf Urine Bacteria (Auto) (Negative) SARS-CoV-2 (PCR) (Negative) Influenza Type A (PCR) (Neg) Influenza Type B (PCR) (Neg) RSV (RT-PCR) (Neg) Imaging Data Attestation: I personally reviewed and interpreted this imaging study as follows: Radiologist's Impression: Head CT 10/30/22 22:03 CT SCAN OF THE BRAIN WITHOUT IV CONTRAST CLINICAL HISTORY: Headache. Syncope. COMPARISON STUDY: No priors. TECHNIQUE: Unenhanced axial CT scan of the brain is performed from the vertex to the skull base. A dose lowering technique was utilized adhering to the principles of ALARA. CT DOSE: 614.27 mGy.cm FINDINGS: Brain parenchyma: There is age-related involutional change noting mild subcortical and periventricular microangiopathic disease. There is no hemorrhage, mass effect, or evidence of acute territorial ischemia by CT criter ia. Robles-white matter differentiation is preserved. No extra-axial fluid collection is seen. Ventricles, sulci, cisterns: Prominent secondary to involutional change. Intracranial vasculature: There is atherosclerotic calcification of the cavernous carotid and vertebral arteries. Calvarium: Unremarkable. Sinuses and mastoids: There is complete opacification of the right maxillary antrum. Mild thickening and sclerosis of the sinus wall indicates chronicity. There is subtotal opacification of the right frontal sinus and several anterior right ethmoid sinuses. Trace mucosal thickening is seen within the left ethmoid sinuses. The mastoid air cells are well pneumatized. Orbits: The bony orbits are grossly intact. IMPRESSION: 1. There is no hemorrhage, mass effect, or evidence of acute territorial i schemia by CT criteria. 2. Paranasal sinus disease as above. ACT 112: Negative or not required by law. Electronically signed by: Isaac Morrissey M.D. 10/30/2022 10:45 PM Chest X-Ray 10/30/22 23:42 SINGLE VIEW CHEST CLINICAL HISTORY: Cough. FINDINGS: An AP, portable, upright chest radiograph is compared to study dated 01/06/2022 and correlated with chest CT dated 06/13/2012. The heart is mildly enlarged. The pulmonary vasculature is noncongested. There is mild elevation of the left hemidiaphragm with bibasilar scarring/atelectasis. No airspace con solidation or large pleural effusion is identified. No pneumothorax is seen. The skeletal structures are osteopenic. The bony thorax is grossly intact. IMPRESSION: Mild cardiomegaly with no acute cardiopulmonary abnormality. ACT 112: Negative or not required by law. Electronically signed by: Isaac Morrissey M.D. 10/31/2022 12:39 AM MDM Narrative Prior records/ancillary studies reviewed. Triage Nursing notes reviewed. Additional history obtained from nursing. The patient's history was concerning for syncope. Differential diagnosis: Etiologies such as vasovagal event, infection, hypoglycemia, electrolyte abnormalities, cardiac sources, intracerebral event, toxicologic, neurologic, as well as others were entertained. Physical examination: As above ER treatment provided: IV hydration with normal saline, insulin and repeat blood sugar was improved On reassessment the patient felt better. An order was placed for continuous cardiac monitoring. The monitor shows a rate of 60-100 with a sinus rhythm per my interpretation. Diagnostics interpretation by me: ECG: Ordered for syncope EKG: Normal sinus, left bundle branch block, first-degree AV block, no Sgarbossa. Impression left bundle branch block first-degree AV block, no Sgarbossa. Impression left bundle branch block first-degree AV block interpreted by myself The labs Independently Interpreted by myself revealed VBG was reviewed. Negative acidosis Hyperglycemia Blood cultures pending CD4 count reviewed from prior notes Imaging studies: As above Consultation: A consultation was placed with the hospitalist. The case was discussed and diagnostics were reviewed. The patient was evaluated in the ER for further treatment. This appears to be consistent with syncope with diabetes with hyperglycemia. Labs and diagnostics were independently interpreted by myself. Radiology read the CAT scan. Patient's blood sugar was high. He did pass out. Medicine was consulted and the case was discussed. He will be admitted to the medical service for poorly controlled diabetes and for syncopal episode. By the evaluation outlined above emergent etiologies such as infection, hypoglycemia, electrolyte abnormalities, intracerebral event, toxicologic, as well as others were deemed relatively unlikely. The pt informed about the findings as listed above. All questions were answered and pleased with the treatment. The chart was completed utilizing [employer] voice recognition software. Grammatical errors, random word insertions, pronoun errors, and incomplete sentences are an occassional consequence of this system due to software limitations, ambient noise, and hardware issues. Any formal questions or concerns about the content, text, or information contained within the body of this dictation should be directly addressed to the physician medical support assistant for clarification. Attending Attestation: Payton Rod MD independently saw and evaluated this patient and agree with history and physical is otherwise documented by the physician medical support assistant. See their note for full details. Patient with syncopal episode. Hyperglycemia noted here. Have some slightly worsened renal function right now. Symptoms may have been provoked by his hyperglycemia causing some mild dehydration. Resting comfortably in bed in no distress given symptoms earlier, hospitalist will evaluate for further observation. Impression & Plan Syncope, Acute hyperglycemia Discharge Plan Visit Data Chief Complaint: Syncope Stated Complaint: Syncope, Hyperglycemia ED Provider: Efren Rod ED Midlevel Provider: Daya Baca Discharge Problem: Syncope, Acute hyperglycemia Patient Disposition: Admitted As Inpatient Condition: Good Forms Stand Alone Forms: My [facility] Prescriptions Prescriptions: No Action atorvastatin 40 mg tablet 40 mg PO QAM vitamin E 100 unit Capsule 0 unit PO QAM coenzyme Q10 [Co Q-10] 50 mg Capsule 0 mg PO QAM sodium bicarbonate 650 mg tablet 1,300 mg PO QAM fluoxetine 20 mg capsule 20 mg PO QAM calcitriol 0.25 mcg capsule 0.25 mcg PO QAM insulin aspart U-100 [Novolog FlexPen U-100 Insulin] 100 unit/mL (3 mL) i nsulin pen See Rx Instructions .ROUTE .COMPLEX Rx Instructions: per sliding scale TID metoprolol tartrate 25 mg tablet 25 mg PO QAM prasugrel 10 mg tablet 10 mg PO QAM Juluca 50-25 mg tablet 1 tab PO QAM multivitamin Tablet 1 tab PO QAM omega 5-[id number]-fish oil [Fish Oil] 1,000 mg (120 mg-180 mg) Capsule 2 cap PO QAM Basaglar KwikPen U-100 Insulin 100 unit/mL (3 mL) insulin pen 24 unit SUBCUT QAM Qty: 0 0RF Aspir-81 81 mg 1 tab PO DAILY Referrals Referrals: PCP,NO [Physician] - Syncope Qualifiers: Syncope type: unspecified Qualified Code(s): R55 - Syncope and collapse
[2022-10-30 22:15] LABS: Basophils # (auto) 0.02 K/uL (0-0.2); Basophils % (auto) 0.3 %; Eosinophils # (auto) 0.15 K/uL (0-0.50); Eosinophils % (auto) 2.5 %; Hematocrit (blood only) 40.7 % (42.0-52.0); Hemoglobin 13.8 g/dl (14.0-18.0); Immature Granulocytes # (auto) 0.03 K/uL (0.01-0.20); Immature Granulocytes % (auto) 0.5 %; Lymphocytes # (auto) 1.81 K/uL (1.2-3.4); Lymphocytes % (auto) 29.6 %; Mean Corpuscular Hgb Conc 33.9 g/dL (32.0-36.0); Mean Corpuscular Volume 82.6 fL (80.0-100.0); Mean Platelet Volume 9.5 fL (9.4-12.4); Monocytes # (auto) 0.58 K/uL (0.11-0.59); Monocytes % (auto) 9.5 %; Neutrophils # (auto) 3.52 K/uL (1.40-6.50); Neutrophils % (auto) 57.6 %; Platelet Count 184 K/uL (130-400); RDW Coefficient of Variation 13.7 % (11.5-14.5); RDW Standard Deviation 40.4 fL (36.4-46.3); Red Blood Count 4.93 M/uL (4.70-6.10); White Blood Count 6.11 K/ul (4.8-10.8)
[2022-10-30 22:40] LABS: Appearance Urine Clear (Clear); Bacteria Urine Automated Negative (Negative); Bilirubin Urine Negative (Negative); Blood Urine Negative (Negative); Cast Urine Automated 0 /lpf (0-5); Color Urine Yellow; Epithelial Cell Urine Auto 0-5 /lpf (0-5); Glucose Urine UA 3+ (Negative); Ketones Urine Negative (Negative); Leukocyte Esterase Urine Negative (Negative); Nitrite Urine Negative (Negative); Protein Urine 1+ (Negative); RBC Urine Automated 0-4 /hpf (0-4); Specific Gravity Urine 1.017 (1.000-1.030); Urobilinogen Urine Negative (Negative); WBC Urine Automated 0 /hpf (0-5); pH Urine 5.5 (4.5-7.5)
[2022-10-30 22:42] LABS: Albumin Globulin Ratio 1.4 (0.9-2); Albumin Level 4.1 gm/dl (3.4-5.0); BUN Creatinine Ratio 16.2 (10-20); Bilirubin,Total 0.5 mg/dl (0.2-1.0); Calcium 11.3 mg/dl (8.5-10.1); Creatinine Clr Calc Pharmacy 20.6 ml/min; Est GFR (African American) 20.3 ml/min; Est GFR (Non-African American) 17.5 ml/min; Magnesium 2.5 mg/dl (1.7-2.4); Potassium 4.6 mmol/L (3.5-5.1); Total Protein 7.1 gm/dl (6.0-8.3)
[2022-10-30 22:45] LABS: Troponin I High Sensitivity 10.1 pg/ml (0-20)
--- NOTE | 2022-10-30 22:47 | CT Scan Report ---
CT SCAN OF THE BRAIN WITHOUT IV CONTRAST CLINICAL HISTORY: Headache. Syncope. COMPARISON STUDY: No priors. TECHNIQUE: Unenhanced axial CT scan of the brain is performed from the vertex to the skull base. A do se lowering technique was utilized adhering to the principles of ALARA. CT DOSE: 614.27 mGy.cm FINDINGS: Brain parenchyma: There is age-related involutional change noting mild subcortical and periventricula r microangiopathic disease. There is no hemorrhage, mass effect, or evidence of acute territorial isc hemia by CT criteria. Robles-white matter differentiation is preserved. No extra-axial fluid collection is seen. Ventricles, sulci, cisterns: Prominent secondary to involutional change. Intracranial vasculature: There is atherosclerotic calcification of the cavernous carotid and vertebr al arteries. Calvarium: Unremarkable. Sinuses and mastoids: There is complete opacification of the right maxillary antrum. Mild thickening and sclerosis of the sinus wall indicates chronicity. There is subtotal opacification of the right fr ontal sinus and several anterior right ethmoid sinuses. Trace mucosal thickening is seen within the l eft ethmoid sinuses. The mastoid air cells are well pneumatized. Orbits: The bony orbits are grossly intact. IMPRESSION: 1. There is no hemorrhage, mass effect, or evidence of acute territorial ischemia by CT criteria. 2. Paranasal sinus disease as above. ACT 112: Negative or not required by law. Electronically signed by: Isaac Morrissey M.D. 10/30/2022 10:45 PM
[2022-10-30 22:48] LABS: D Dimer 400 ug/L FEU (0-500); Partial Thromboplastin Ratio 0.9; Partial Thromboplastin Time 25.5 Seconds (21.0-31.0); Prothrombin Time 10.5 Seconds (9.0-12.0)
[2022-10-30 22:51] LABS: Thyroid Stimulating Hormone 8.557 uIu/ml (0.300-4.500)
[2022-10-30 23:08] LABS: Base Excess VBG -3.9 mEq/L; HCO3 VBG 22 mmol/L; Oxygen Saturation VBG 80.8 %; PCO2 VBG 43 mmHg (38-50); PO2 VBG 50 mmHg; pH VBG 7.32 (7.36-7.41)
[2022-10-30 23:27] LABS: T4 Free Thyroxine 0.7 ng/dl (0.61-1.60)
[2022-10-30 23:39] LABS: Influenza A virus by PCR Negative (Neg); Influenza B virus by PCR Negative (Neg); RSV by PCR Negative (Neg); SARS CoV2 RNA(COVID-19) Ceph NEGATIVE (Negative)
[2022-10-30] MEDS ORDERED: NovoLIN-R INSULIN PER UNIT CHARGE IV STA (23:42)
--- NOTE | 2022-10-31 00:40 | XRay Report ---
SINGLE VIEW CHEST CLINICAL HISTORY: Cough. FINDINGS: An AP, portable, upright chest radiograph is compared to study dated 01/06/2022 and correlat ed with chest CT dated 06/13/2012. The heart is mildly enlarged. The pulmonary vasculature is nonconge sted. There is mild elevation of the left hemidiaphragm with bibasilar scarring/atelectasis. No airsp jena consolidation or large pleural effusion is identified. No pneumothorax is seen. The skeletal stru ctures are osteopenic. The bony thorax is grossly intact. IMPRESSION: Mild cardiomegaly with no acute cardiopulmonary abnormality. ACT 112: Negative or not required by law. Electronically signed by: Isaac Morrissey M.D. 10/31/2022 12:39 AM
[2022-10-31] MEDS ORDERED: ACETAMINOPHEN 325 MG TAB PO STA (02:12)
[2022-10-31] MEDS ORDERED: GLUCOSE 40% GEL 15 GM TUBE PO PRN (03:06)
[2022-10-31] MEDS ORDERED: POLYETHYLENE (MIRALAX) 17 GM PACK PO PRN (03:06)
[2022-10-31] MEDS ORDERED: PHARMACY GLYCEMIC MGMT CONSULT PRN (03:06)
[2022-10-31] MEDS ORDERED: ACETAMINOPHEN 325 MG TAB PO PRN (03:06)
[2022-10-31] MEDS ORDERED: DEXTROSE 50% 50 ML SYRINGE IV PRN (03:06)
[2022-10-31] MEDS ORDERED: GLUCOSE 10 TAB/TUBE PO PRN (03:06)
[2022-10-31] MEDS ORDERED: NITROGLYCERIN SL 0.4 MG/TAB TAB SL PRN (03:06)
[2022-10-31] MEDS ORDERED: CARBOHYDRATES FOR HYPOGLYCEMIA PO PRN (03:06)
[2022-10-31] MEDS ORDERED: SODIUM CHLORIDE 0.9% 1000ML 1,000 ML IV SCH (03:06)
[2022-10-31] MEDS ORDERED: GLUCAGON FOR INJ 1 MG VIAL SQ PRN (03:06)
[2022-10-31] MEDS ORDERED: LANTUS PER UNIT CHARGE SQ SCH (04:30)
[2022-10-31] MEDS: INSULIN ASPART PER UNIT SC SCH ×3 (04:32→12:27)
--- NOTE | 2022-10-31 06:03 | History and Physical Report ---
DATE OF ADMISSION: 10/31/2022. CHIEF COMPLAINT: Syncope, hyperglycemia. HISTORY OF PRESENT ILLNESS: A 67-year-old male with past medical history significant for type 2 diabetes, hyperlipidemia, chronic systolic and diastolic CHF, hypertension, CAD, left bundle-branch block, chronic kidney disease stage IV, depression, HIV positive, presents with syncope and hyperglycemia. The patient says that around 9:00pm, after watching TV for two hours he stood up, he seemed okay. But when he was walking downstairs, at the end of the steps he passed out. He had a soft landing. There were other people in the house and they told him that he passed out for 1 minute. When he woke up, he was confused for some time, but now back to baseline. Denies any seizure-like activity during the episode. Denies any incontinence. In the ER, sugars were running high. He says generally at home his sugars run high. Denies any palpitations or chest pain. No shortness of breath, no nausea, no abdominal pain, no headache, no blurred visions, no cough, no fevers. Normal bowel and bladder movements. Currently, resting comfortably and hemodynamically stable. ALLERGIES: No known drug allergies. PAST MEDICAL HISTORY: As mentioned above. PAST SURGICAL HISTORY: None. MEDICATIONS: The patient is on aspirin 81 mg p.o. daily, atorvastatin 40 mg p.o. daily, Basaglar insulin 25 units in a.m., and insulin sliding scale, calcitriol 0.5 mcg daily, Coenzyme Q10 daily, fluoxetine 20 mg p.o. daily, Juluca 1 tablet p.o. daily, metoprolol succinate 25 mg p.o. daily, multivitamin 1 tablet p.o. daily, Ottertail fish oil 2 capsules daily, prasugrel 10 mg p.o. daily, sodium bicarbonate 650 mg p.o. daily. FAMILY HISTORY: Significant for mother had heart disorder, Parkinson's, Alzheimer's. SOCIAL HISTORY: Single, smokes 1/4 pack a day for last 30 years. 11 standard drinks of alcohol per week. No drug use. REVIEW OF SYSTEMS: As per HPI. Rest of the review of systems is negative. PHYSICAL EXAMINATION: GENERAL: The patient is of moderate built, not in acute distress. VITAL SIGNS: Temperature 37.1, pulse 66, respiratory rate 17, blood pressure 124/80, oxygen 95% on room air. HEENT: Pupils equal, round and reactive to light. Oral mucosa moist. NECK: No JVD, no neck masses. CARDIOVASCULAR: S1 and S2 heard. Regular rate and rhythm. No murmur, no gallop. RESPIRATORY SYSTEM: Normal AP diameter. No accessory muscle use. No wheezing, no crackles. ABDOMEN: Soft, bowel sounds present, nontender, no distention. CENTRAL NERVOUS SYSTEM: Cranial nerves II-XII grossly intact, nonfocal. EXTREMITIES: No edema, no erythema. LABORATORY DATA: WBC 6.1, hemoglobin 13.8, hematocrit 40.7, platelets 184. PT 10.5, INR 1, APTT 25.5. D-dimer 400. Venous blood gas, pH of 7.32, pCO2 of 43. Sodium 130, potassium 4.6, chloride 102, bicarbonate 21, BUN 55, creatinine 3.39, serum glucose 481. Lactate 0.9, calcium 11.3, magnesium 2.5, total bilirubin 0.5, AST 13, ALT 55, alkaline phosphatase 70, total creatine kinase 69. Troponin I high [id number]. TSH 8.5, free T4 of 0.7. Urinalysis negative. Ethyl alcohol less than 10.. SARS-CoV-2 PCR negative. Influenza A and B PCR negative. RSV PCR negative. IMAGING DATA: Chest x-ray: Mild cardiomegaly with no acute cardiopulmonary abnormalities. CT of the head, no acute findings. EKG: Normal sinus rhythm with left bundle-branch block. ASSESSMENT AND PLAN: This is a 67-year-old male who presents with syncope. 1. Syncope: etiology? Possible dehydration from hyperglycemia. CT of the head is okay. Labs look okay. Will monitor in the tele floor. Orthostatics, gentle fluids. Follow the echocardiogram, serial cardiac enzymes. Consult cardiology in the a.m. 2. Hyperglycemia: The patient has history of diabetes. Says that generally sugars run high at home as per the patient. Received a dose of IV 10 units insulin in the ER. Currently n.p.o. So we will place him on Lantus 10 units daily and insulin sliding scale. Follow HbA1c levels. Consult Glycemic pharmacy to adjust the insulin regimen. 3. Acute kidney injury on chronic kidney disease stage IV: Baseline creatinine seems to be around 2.9, presently with a creatinine of 3.3. Avoid nephrotoxic agents. Getting gentle fluids. Monitor the repeat labs. Continue his chronic kidney disease medication of calcitriol and sodium bicarbonate. If it is not improving, will consult nephrology. 4. History of depression: Continue fluoxetine. 5. History of HIV: Continue Juluca. Needs follow up with ID. 6. History of coronary artery disease: Continue aspirin, metoprolol, and statin. 7. Chronic systolic and diastolic congestive heart failure: Ejection fraction of 45% to 50% in echo done in December 2021. Grade 1 diastolic congestive heart failure. Getting fluids. Monitor for any volume overload. 8. Hyperlipidemia: On statin. 9. Hyponatremia: Possible pseudohyponatremia from hyperglycemia.Getting fluids. Follow the repeat labs in the a.m. 10. Deep venous thrombosis prophylaxis: Sequential compression devices. DISPOSITION: Closely monitor in the tele floor. Level 1 full code. Expect to discharge home and follow with family doctor. Job ID: [id number] CRISTINO
[2022-10-31 06:24] LABS: Basophils # (auto) 0.02 K/uL (0-0.2); Basophils % (auto) 0.4 %; Eosinophils # (auto) 0.13 K/uL (0-0.50); Eosinophils % (auto) 2.8 %; Hematocrit (blood only) 38.6 % (42.0-52.0); Hemoglobin 13.2 g/dl (14.0-18.0); Immature Granulocytes # (auto) 0.02 K/uL (0.01-0.20); Immature Granulocytes % (auto) 0.4 %; Lymphocytes # (auto) 1.65 K/uL (1.2-3.4); Lymphocytes % (auto) 35.8 %; Mean Corpuscular Hemoglobin 28.1 pg (25.0-34.0); Mean Corpuscular Hgb Conc 34.2 g/dL (32.0-36.0); Mean Corpuscular Volume 82.1 fL (80.0-100.0); Mean Platelet Volume 9.5 fL (9.4-12.4); Monocytes # (auto) 0.55 K/uL (0.11-0.59); Monocytes % (auto) 11.9 %; Neutrophils # (auto) 2.24 K/uL (1.40-6.50); Neutrophils % (auto) 48.7 %; Platelet Count 159 K/uL (130-400); RDW Coefficient of Variation 13.5 % (11.5-14.5); RDW Standard Deviation 40.3 fL (36.4-46.3); White Blood Count 4.61 K/ul (4.8-10.8)
[2022-10-31 06:32] LABS: BUN Creatinine Ratio 15.3 (10-20); Calcium 10.3 mg/dl (8.5-10.1); Creatinine Clr Calc Pharmacy 21.3 ml/min; Est GFR (African American) 21.2 ml/min; Est GFR (Non-African American) 18.3 ml/min; Magnesium 2.4 mg/dl (1.7-2.4); Potassium 4.5 mmol/L (3.5-5.1)
[2022-10-31 06:49] LABS: Troponin I High Sensitivity 15.5 pg/ml (0-20)
[2022-10-31 08:17] LABS: Estimated Average Glucose 235 mg/dl; Hemoglobin A1C 9.8 % (4.5-5.6)
[2022-10-31] MEDS ORDERED: PRASugrel TAB 10 MG TAB PO SCH (09:00)
[2022-10-31] MEDS ORDERED: SODIUM BICARBONATE 650 MG TAB PO SCH (09:00)
[2022-10-31] MEDS ORDERED: ATORVASTATIN 40 MG TAB PO SCH (09:00)
[2022-10-31] MEDS ORDERED: CALCITRIOL 0.25 MCG CAPSULE PO SCH (09:00)
[2022-10-31] MEDS ORDERED: MULTIVITAMIN TAB PO SCH (09:00)
[2022-10-31] MEDS ORDERED: ASPIRIN 81 MG ECTAB PO SCH (09:00)
[2022-10-31] MEDS ORDERED: FLUoxetine HCL 20 MG CAP PO SCH (09:00)
--- NOTE | 2022-10-31 11:01 | Cardiology Consultation ---
Date of Consultation October 31, 2022 Assessment & Plan (1) Syncope: (2) Acute hyperglycemia: (3) CAD (coronary artery disease): (4) History of left bundle branch block (LBBB): (5) CKD (chronic kidney disease) stage 4, GFR 15-29 ml/min: (6) HIV (human immunodeficiency virus infection): (7) Immunosuppressed status: Plan syncopal event likely orthostatic in nature with baseline stage IV chronic kidney disease recommend social science analyst for 24 hours and 7 day Zio patch monitor as an outpatient No significant structural changes on echocardiogram No arrhythmias on monitor Would also consider consultation with our nephrology colleagues History of Present Illness Reason for Consultation: Syncope Requesting Physician: [facility] hospital[facility] Attending Physician: Ed Latham MD History of Present Illness It was my pleasure to see Mr. Silvestre in cardiac consultation today October 31, 2022. He is a very pleasant 67-year-old gentleman who normally follows with Dr. Mota of our cardiology practice for his history of coronary artery disease. He presented to [facility] emergency department on the evening of 10/30/2022 after reported syncopal spell. The patient was seated for approximately 2 hours in a theater watching a local play. Once the plate concluded he stood up and was waiting to exit when he suddenly became very lightheaded and felt as though he is going to pass out. At that time he did lose consciousness and he was attended to by [facility] relations mgr. He was then transported to [facility]. He states he has had previous similar episodes in the past but is never sought medical treatment. Denies any cardiac complaints of chest pain, shortness of breath, palpitations. States has been compliant with all of his medications PMHX per most recent outpatient cardiac note: 1. Chronic ischemic heart disease status post inferior myocardial infarction with acute coronary intervention stenting right coronary artery 2017 2. Recurrent angina non ST-elevation myocardial infarction July 2020 with repeat right coronary intervention for restenoses 3. Mild left ventricular dysfunction 4. CKD stage 4 5. Type 2 diabetes mellitus with past pancreatitis 6. Longstanding HIV with viral suppression 7. Chronic left bundle-branch block Allergies Allergy/AdvReac Type Severity Reaction Status Date / Time No Known Allergies Allergy Unverified 01/06/22 15:38 Home Medications Medication Instructions Recorded Confirmed Type atorvastatin 40 mg tablet 40 mg PO QAM 01/06/22 01/06/22 History coenzyme Q10 50 mg capsule (Co 0 mg PO QAM 01/06/22 01/06/22 History Q-10) dolutegravir 50 mg-rilpivirine 25 1 tab PO QAM 01/06/22 01/06/22 History mg tablet (Juluca) fluoxetine 20 mg capsule 20 mg PO QAM 01/06/22 01/06/22 History insulin aspart U-100 100 unit/mL See Rx Instructions .Route .COMPLEX 01/06/22 01/06/22 History (3 mL) subcutaneous pen (Novolog FlexPen U-100 Insulin aspart) metoprolol tartrate 25 mg tablet 25 mg PO QAM 01/06/22 01/06/22 History multivitamin 1 tab PO QAM 01/06/22 01/06/22 History omega 1-gfo-xjd-fish oil 1,000 mg 2 cap PO QAM 01/06/22 01/06/22 History (120 mg-180 mg) capsule (Fish Oil) prasugrel 10 mg tablet 10 mg PO QAM 01/06/22 01/06/22 History sodium bicarbonate 650 mg tablet 650 mg PO QAM 01/06/22 01/06/22 History vitamin E 100 unit capsule 0 unit PO QAM 01/06/22 01/06/22 History Aspir-81 1 tab PO DAILY 01/08/22 01/08/22 History insulin glargine 100 unit/mL (3 24 unit (0.24 mL) subcut QAM #0 mL 01/08/22 01/06/22 Rx mL) subcutaneous pen (Basaglar KwikPen U-100 Insulin) calcitriol 0.5 mcg capsule 0.5 mcg PO DAILY 10/31/22 10/31/22 History Patient History Medical History Depression Surgical History No pertinent past surgical history Family History Mother Heart disease Social History Smoking Status: Former smoker Tobacco Type: Cigarettes Smoking End Date: 2002, few cigarettes daily; Hx Alcohol Use: Yes Alcohol type: beer, wine and hard liquor Alcohol Intake Frequency: Monthly or Less Hx Substance Use: No Preferred Language: Icelandic Communication Ability: Effective Staff Assistant Required: No Beliefs That Will Affect Care: None Current Living Situation: Other Current Living Situation Comment: cats Other Information That Helps Us Care for You: No Feels Safe at Home: Yes Safety Concerns: Feels Safe At This Time Assistive Devices: Glasses and Hearing Aid - Bilateral Review of Systems Review of Systems: All systems reviewed & are unremarkable except as noted in HPI & below Physical Exam Physical Exam: General: Awake, alert and oriented x 3. No acute distress. HEENT: Normocephalic, atraumatic. Pupils equal, round and reactive to light and accommodation. Extraocular muscles are intact. Anicteric sclera. Moist mucous membranes. Neck: No JVD. No bruit. Cardiovascular: Regular. Positive S-4. Normal S-1 and S-2. No S-3. No murmurs or rubs. Pulmonary: Clear to auscultation B/L. No rales, rhonchi or wheezing Abdomen: Bowel sounds x 4, soft. No rebound, guarding or tenderness. No organomegaly. Extremities: No clubbing, cyanosis or edema. +2 pedal pulses bilaterally. Skin: Warm and dry. Results & Data ([facility]) Vital Signs (Past 12 Hours) Vital Signs Temp Pulse Pulse Resp BP Pulse Ox O2 Del Method 10/31/22 08:55 36.5 C 63 18 146/89 H 97 Room Air 10/31/22 08:12 58 L 10/31/22 04:00 36.3 C L 60 135/83 98 Room Air 10/31/22 03:10 66 10/31/22 03:14 36.2 C L 62 20 148/80 H 96 Room Air 10/31/22 02:00 66 17 124/80 95 Room Air 10/31/22 00:00 71 16 143/83 H 95 Room Air Diagnostic Findings Cardiac cath report 07/19/20: CORONARY VESSELS: -- The coronary circulation is right dominant. -- Left main: The vessel was large sized. Angiography showed minor luminal irregularities. -- LAD: The vessel was medium sized. Angiography showed mild atherosclerosis. There was one major diagonal branch. -- Proximal LAD: There was a 0 % stenosis at the site of a prior stent. -- Mid LAD: There was a discrete 40 % stenosis at the site of a prior stent. -- Circumflex: The vessel was large sized (co-dominant). There were two major obtuse marginals. -- Mid circumflex: There was a 0 % stenosis at the site of a prior stent. -- Mid RCA: There was a 0 % stenosis at the site of a prior stent. -- Distal RCA: There was a 100 % stenosis at the site of a prior stent. The lesion was associated with a large filling defect consistent with thrombus. This lesion is a likely culprit for the patient's recent myocardial infarction. It appears amenable to percutaneous intervention. -- Right PDA: The vessel was medium sized. The artery was supplied by collaterals. The distal vessel was supplied by limited collaterals from the LAD. (1) Syncope Syncope type: unspecified Qualified Code(s): R55 - Syncope and collapse
--- NOTE | 2022-10-31 11:21 | Electrocardiogram Report ---
Test Reason : Blood Pressure : / mmHG Vent. Rate : 071 BPM Atrial Rate : 071 BPM P-R Int : 222 ms QRS Dur : 170 ms QT Int : 426 ms P-R-T Axes : 055 -13 112 degrees QTc Int : 462 ms Sinus rhythm with 1st degree A-V block Possible Left atrial enlargement Left bundle branch block Abnormal ECG When compared with ECG of 07-JAN-2022 05:37, Left bundle branch block is now Present [place] has increased further Confirmed by Dax Murray ([id number]) on 10/31/2022 11:21:20 AM Referred By: REFERRED SELF Confirmed By:Dax Murray
--- NOTE | 2022-10-31 13:24 | Pharmacy Report ---
Pharmacy Glycemic Short Note 2 - Date of Service October 31, 2022 - Glycemic Short BSG Results (Last 24 hours): 10/30/22 10/30/22 10/31/22 21:46 21:50 00:40 Glucose 481 H* POC Glucose 436 H* 306 H* 10/31/22 10/31/22 10/31/22 03:24 03:27 05:19 Glucose 260 H POC Glucose 303 H* 297 H 10/31/22 10/31/22 08:24 11:54 Glucose POC Glucose 177 H 120 H OUTPATIENT ANTIDIABETIC REGIMEN: * Basaglar 24 units qAM + Novolog * HbA1C = 10.3% (10/31/22) ASSESSMENT: * Mr Silvestre is a 67 y/o M with a PMH of T2DM who presents with chest pain. Patient currently NPO. * BSGs on admission (10/30/22) were 436-306 for which patient received 10 units of IV insulin. * A check at 0200 was 297 mg/dL for which patient received 5 units of SQ Novolog. * Fasting today is 177 mg/dL and lunch is 120 mg/dL. * Patient given 15 units this morning by nightshift pharmacist. Will not give anymore Lantus as unclear how long patient will be NPO. Scale for tomorrow for 20% increase based upon fasting BSG. * Novolog weight-based stress of 2 for now. PLAN FOR INPATIENT GLYCEMIC CONTROL: * Basal insulin * Lantus 15 units SQ daily (20 units if BSG > 140 mg/dL) * Bolus insulin * NovoLog per scale ACHS or Q6hrs while NPO * Goal Range: Low 110 mg/dL - High 140 mg/dL * Correction Factor: 30 mg/dL/unit * Nutritional / Prandial insulin per carb ratio of 1 unit per 10 grams CHO consumed
[2022-10-31] MEDS ORDERED: Nursing to Pharmacy Communication SCH (16:30)
[2022-10-31] MEDS ORDERED: INSULIN ASPART PER UNIT SC SCH ×2 (16:30→18:00)
--- NOTE | 2022-10-31 17:25 | Discharge Summary ---
Date of Service October 31, 2022 Admission HPI Per Admitting Provider A 67-year-old male with past medical history significant for type 2 diabetes, hyperlipidemia, chronic systolic and diastolic CHF, hypertension, CAD, left bundle-branch block, chronic kidney disease stage IV, depression, HIV positive, presents with syncope and hyperglycemia. The patient says that around 9:00pm, after watching TV for two hours he stood up, he seemed okay. But when he was walking downstairs, at the end of the steps he passed out. He had a soft landing. There were other people in the house and they told him that he passed out for 1 minute. When he woke up, he was confused for some time, but now back to baseline. Denies any seizure-like activity during the episode. Denies any incontinence. In the ER, sugars were running high. He says generally at home his sugars run high. Denies any palpitations or chest pain. No shortness of breath, no nausea, no abdominal pain, no headache, no blurred visions, no cough, no fevers. Normal bowel and bladder movements. Currently, resting comfortably and hemodynamically stable. Admission Exam Per Admitting Provider GENERAL: The patient is of moderate built, not in acute distress. VITAL SIGNS: Temperature 37.1, pulse 66, respiratory rate 17, blood pressure 124/80, oxygen 95% on room air. HEENT: Pupils equal, round and reactive to light. Oral mucosa moist. NECK: No JVD, no neck masses. CARDIOVASCULAR: S1 and S2 heard. Regular rate and rhythm. No murmur, no gallop. RESPIRATORY SYSTEM: Normal AP diameter. No accessory muscle use. No wheezing, no crackles. ABDOMEN: Soft, bowel sounds present, nontender, no distention. CENTRAL NERVOUS SYSTEM: Cranial nerves II-XII grossly intact, nonfocal. EXTREMITIES: No edema, no erythema. Principal Diagnosis Syncope Hyperglycemia in the setting of known DM type 2 Hx of CKD Discharge Exam GENERAL: The patient is of moderate built, not in acute distress. HEENT: NC/AT. EOMI. Pupils equal, round and reactive to light. Oral mucosa moist. NECK: No JVD, no neck masses. CARDIOVASCULAR: S1 and S2 heard. Regular rate and rhythm. No murmur, no gallop. RESPIRATORY: Normal AP diameter. No accessory muscle use. No wheezing, no crackles. ABDOMEN: Soft, bowel sounds present, nontender, no distention. NEURO:Awake, alert, oriented, no facial asymmetry, speech fluent, moves extremities EXTREMITIES: No edema, no erythema. Discharge Data Allergies Allergy/AdvReac Type Severity Reaction Status Date / Time No Known Allergies Allergy Unverified 01/06/22 15:38 Consultations 10/31/22 00:13 ED Decision to Admit Stat 10/31/22 08:00 Consult Cardiology Routine Ordered Studies 10/30/22 22:03 CT head/brain wo con Stat FINDINGS: Brain parenchyma: There is age-related involutional change noting mild subcortical and periventricular microangiopathic disease. There is no hemorrh age, mass effect, or evidence of acute territorial ischemia by CT criteria. Robles-white matter differentiation is preserved. No extra-axial fluid collection is seen. Ventricles, sulci, cisterns: Prominent secondary to involutional change. Intracranial vasculature: There is atherosclerotic calcification of the cavernous carotid and vertebral arteries. Calvarium: Unremarkable. Sinuses and mastoids: There is complete opacification of the right maxillary antrum. Mild thickening and sclerosis of the sinus wall indicates chronicity. There is subtotal opacification of the right frontal sinus and several anterior right ethmoid sinuses. Trace mucosal thickening is seen within the left ethmoid sinuses. The mastoid air cells are well pneumatized. Orbits: The bony orbits are grossly intact. IMPRESSION: 1. There is no hemorrhage, mass effect, or evidence of acute territorial ischemia by CT criteria. 2. Paranasal sinus disease as above. Diabetes Follow up Diabetes Follow-up Needed for HgbA1c >9% Hospital Course (1) Syncope: (2) CAD (coronary artery disease): (3) History of left bundle branch block (LBBB): (4) CKD (chronic kidney disease) stage 4, GFR 15-29 ml/min: (5) HIV (human immunodeficiency virus infection): (6) Immunosuppressed status: (7) Acute hyperglycemia: This is a 67-year-old male who presents with syncope. 1. Syncope: etiology? Likely dehydration from hyperglycemia. Patient presented with blood glucose level over 400. CT of the head unremarkable Monitored in the tele floor. Orthostatics, gentle fluids given. Echocardiogram, serial cardiac enzymes obtained and cardiology was consulted. Echo Normal LV chamber size with mild concentric LVH, sigmoid appearing septum. Normal LV systolic function, EF 55 to 60%. Abnormal septal wall motion consistent with left bundle branch block pattern, otherwise, no segmental left ventricular wall motion abnormalities are noted. Grade 1 diastolic dysfunction. Aortic valve sclerosis moderate, without significant aortic valvular stenosis, more pronounced on the noncoronary cusp. No arrhythmia noted on the monitor. Syncopal episode likely orthostatic in nature Discussed with cardiology, recommend Zio patch monitor as an outpatient 2. Hyperglycemia: The patient has history of diabetes. Current hemoglobin A1c is 9.8% - uncontrolled DM type 2 Per pt generally sugars run high at home. Received a dose of IV 10 units insulin in the ER.Consulted Glycemic pharmacy and clinical systems educator. Patient reports that he follows with endocrinology. Recommend to follow-up with PCP within 1 week, and endocrinology. 3. Acute kidney injury on chronic kidney disease stage IV: Baseline creatinine seems to be around 2.9, on admission creatinine of 3.3. Avoid nephrotoxic agents. Getting gentle fluids. Continue his chronic kidney disease medication of calcitriol and sodium bicarbonate. Patient reports that in [place] he is on the transplant list for HIV kidney. Recommend nephrology follow-up as outpatient. 4. History of depression: Continue fluoxetine. 5. History of HIV: Continue Juluca. Needs follow up with ID. 6. History of coronary artery disease: Continue aspirin, metoprolol, and statin. 7. Chronic systolic and diastolic congestive heart failure: Ejection fraction of 45% to 50% in echo done in December 2021. Grade 1 diastolic congestive heart failure. Echo updated as above. Volume status monitored, believe pt dehydrated on admission. Received gentle fluids. 8. Hyperlipidemia: On statin. 9. Hyponatremia: Possible pseudohyponatremia from hyperglycemia. Na 130 on admission, received fluids. Na 134 this AM. Total Time Total Time Spent Total Time Spent (In Minutes): 40 Discharge Plan Discharge Items Patient Disposition: Home - Self-Care Reason For Visit: SYNCOPE Discharge Diagnosis: Syncope Hyperglycemia in the setting of known DM type 2 Hx of CKD Condition on Discharge: Good Activity: Per Instructions section Non-emergency contact: Primary Care Provider Call non-emergency contact if: you have any medication questions and your symptoms worsen Follow-up/Referrals: Antonio Colon MD [Primary Care Provider] - Diet: Carb Consistent or DM2 Addtl Attending Provider Instructions: Follow-up with your primary care physician within 1 week. Your blood glucose level on admission was elevated and your hemoglobin A1c is 9.8%. It is crucial that you follow-up with your primary care physician and/or guitar technician to adjust your diabetic regimen. It is recommended that you are set up with Zio patch/cardiac monitoring as outpatient. Follow-up with nephrology regarding your chronic kidney disease. Pending Studies at Discharge: Yes Studies:: blood cultures Stand-Alone Forms: [facility], Smoking Cessation Medications and DC Order Prescriptions: Continued calcitriol 0.5 mcg capsule 0.5 mcg PO DAILY atorvastatin 40 mg tablet 40 mg PO QAM vitamin E 100 unit Capsule 0 unit PO QAM coenzyme Q10 [Co Q-10] 50 mg Capsule 0 mg PO QAM sodium bicarbonate 650 mg tablet 650 mg PO QAM fluoxetine 20 mg capsule 20 mg PO QAM insulin aspart U-100 [Novolog FlexPen U-100 Insulin] 100 unit/mL (3 mL) insulin pen See Rx Instructions .ROUTE .COMPLEX Rx Instructions: per sliding scale TID metoprolol tartrate 25 mg tablet 25 mg PO QAM prasugrel 10 mg tablet 10 mg PO QAM Juluca 50-25 mg tablet 1 tab PO QAM multivitamin Tablet 1 tab PO QAM omega 9-fln-rln-fish oil [Fish Oil] 1,000 mg (120 mg-180 mg) Capsule 2 cap PO QAM insulin glargine [Basaglar KwikPen U-100 Insulin] 100 unit/mL (3 mL) insulin pen 24 unit SUBCUT QAM Qty: 0 0RF Aspir-81 81 mg 1 tab PO DAILY Discharge Orders: Discharge Order (Routine); Ordered 10/31/22 Ordered By: Ed Anders/Other Patient Handouts: High Blood Sugar (Hyperglycemia), Managing Type 2 Diabetes Admission Data Admit Date/Time: 10/31/22 16:37 Attending Provider: Kalee Stovall I. Admit Provider: Boris Anne Primary Care Provider: Antonio Colon Other Providers: Bandar Christine ; Simeon Lucas ; Davy Mota ; Wiley Marie ; Librado Bower ; Jay Jay Wiley ; Rayne Nathan ; Pretty Nuno ; Jo Hutchins ; Kenny Dillon ; Boris Anne ; Kalee Stovall I. Other Interventions: Discharge Summary Assessment (RN) Last Done: 10/31/22 17:27
[2022-11-01] MEDS ORDERED: LANTUS PER UNIT CHARGE SQ SCH (09:00)
== END 2022-10-31 17:50 | disposition home or self-care (01) ==
LOC: ED 21:37 → 4W 21:37 → SUATTDRO 10-31 02:19 → 4W 10-31 02:55

== ENCOUNTER 2023-12-30 20:37 | Inpatient (IN) ==
[2023-12-30 21:42] LABS: Basophils # (auto) 0.04 K/uL (0.00-0.20); Basophils % (auto) 0.4 %; Eosinophils # (auto) 0.18 K/uL (0.00-0.50); Eosinophils % (auto) 1.9 %; Hematocrit (blood only) 40.7 % (42.0-52.0); Hemoglobin 13.3 g/dl (14.0-18.0); Immature Granulocytes % (auto) 2.1 %; Lymphocytes # (auto) 1.56 K/uL (1.20-3.40); Lymphocytes % (auto) 16.8 %; Mean Corpuscular Hemoglobin 26.8 pg (25.0-34.0); Mean Corpuscular Hgb Conc 32.7 g/dL (32.0-36.0); Mean Corpuscular Volume 82.1 fL (80.0-100.0); Mean Platelet Volume 8.8 fL (9.4-12.4); Monocytes # (auto) 1.26 K/uL (0.11-0.59); Monocytes % (auto) 13.5 %; Neutrophils # (auto) 6.07 K/uL (1.40-6.50); Neutrophils % (auto) 65.3 %; Platelet Count 249 K/uL (130-400); RDW Coefficient of Variation 16.5 % (11.5-14.5); RDW Standard Deviation 48.7 fL (36.4-46.3); Red Blood Count 4.96 M/uL (4.70-6.10); White Blood Count 9.31 K/ul (4.8-10.8)
[2023-12-30 22:01] LABS: Appearance Urine Cloudy (Clear); Bacteria Urine Automated None Seen (None Seen); Bilirubin Urine Negative (Negative); Blood Urine 1+ (Negative); Color Urine Yellow; Epithelial Cell Urine Auto 0-2 /hpf (0-2); Glucose Urine UA 1+ (Negative); Ketones Urine Negative (Negative); Leukocyte Esterase Urine Negative (Negative); Nitrite Urine Negative (Negative); Protein Urine 1+ (Negative); RBC Urine Automated 0-2 /hpf (0-2); Specific Gravity Urine 1.011 (1.000-1.030); Urobilinogen Urine Negative (Negative); WBC Urine Automated 0-5 /hpf (0-5)
[2023-12-30 22:03] LABS: Partial Thromboplastin Ratio 1.3; Partial Thromboplastin Time 38 Seconds (21-31)
[2023-12-30 22:06] LABS: Albumin Globulin Ratio 1.2 (0.9-2); Albumin Level 3.9 gm/dl (3.4-5.0); BUN Creatinine Ratio 10.5 (10-20); Bilirubin,Total 0.4 mg/dl (0.2-1.0); Calcium 8.7 mg/dl (8.6-10.3); Creatinine Clr Calc Pharmacy 6.2 ml/min; Est GFR (African American) 4.8 ml/min; Est GFR (Non-African American) 4.1 ml/min; Globulin 3.2 gm/dl (2.5-4.0); Potassium 3.7 mmol/L (3.5-5.1); Total Protein 7.1 gm/dl (6.0-8.3)
--- NOTE | 2023-12-30 22:57 | Emergency Department Note ---
Impression & Plan YASIR (acute kidney injury), Immunosuppressed status, Diarrhea, Acute dehydration, Metabolic acidosis ED Provider Note NAME: KULDIP WATSON AGE: 68 SEX: M : 1955 ARRIVES VIA: Walk-In INFORMANT: Patient ED PROVIDER(S): Cristino Ley DO CHIEF COMPLAINT: N/V/D HPI: Patient is a 68-year-old male with a past medical history of HIV, CKD who presents to the ER for diarrhea which has been present for the past 2 weeks. He admits to feeling weak and rundown. He does have some shortness of breath associated with this which is been present for the past week. He notes he gets some abdominal cramping with the diarrhea. He has vomited 3 times. He believes he has passed 3 stones and has had some left flank pain. Denies any recent antibiotic use. ADDITIONAL HISTORY OBTAINED: Per HPI Chronic Medical/Social Conditions Affecting Care: Per HPI PAST MEDICAL HISTORY:See Below PAST SURGICAL HISTORY:See Below FAMILY HISTORY:See Below SOCIAL HISTORY:See Below HOME MEDICATIONS:See Below ALLERGIES:See Below VITALS:See Below PHYSICAL EXAMINATION: GENERAL: Sitting up in bed, alert, ill-appearing, disheveled EYE EXAM: normal conjunctiva. OROPHARYNX: mucous membranes are dry NECK: supple, no nuchal rigidity, no adenopathy, non-tender LUNGS: Clear to auscultation. Normal chest wall mechanics HEART: no murmurs, S1 normal and S2 normal ABDOMEN: abdomen soft, non-tender, normo-active bowel sounds, no masses, no rebound or guarding. UPPER EXTREMITIES: upper extremities are grossly normal. LOWER EXTREMITIES: No pitting edema. NEURO EXAM: Normal sensorium, cranial nerves II-XII grossly intact, normal speech, no gross weakness of arms, no gross weakness of legs. MEDICAL DECISION MAKING: Patient is a 68-year-old male with a past medical history of HIV, CKD who presents the ER for the above-stated complaint. IV was established blood work was obtained. Labs show no significant leukocytosis or anemia. BMP with CO2 of 7 and a creatinine of 11 with a gap of 18 and a BUN of 116. External records were reviewed from previous admission which showed creatinine of 3.2 last year. After discussion with the patient and additional history provided by family at bedside his GFR was in has been 22 recently. UA was clean. Recommended a stool sample which she has not given upon admission. CT abdomen pelvis was unremarkable. Ordered a Rodriguez and patient was given IV fluids. Patient was updated bedside. Discussed the case with the hospitalist for further evaluation management treatment of his acute kidney injury. Consults/Care Managements Discussions: Per [facility] Triage Nursing notes reviewed. Limited review of prior medical records performed Vital Signs: reviewed and remarkable for tachy Differential diagnosis: Differential diagnoses includes but is not limited to gastritis, peptic ulcer disease, GERD, gallbladder disease, pancreatitis, small bowel obstruction, appendicitis, diverticulitis, hernia, urinary tract infection, torsion, perforation, trauma, infectious. ER treatment provided: See below Diagnostics interpreted by me include EKG and cardiac monitoring as listed below: -Cardiac Monitoring: An order was placed for continuous cardiac monitoring. The monitor shows a rate of 110 with sinus rhythm. -ECG: Sinus tachycardia rate of 122 First-degree AV block Normal axis Left bundle branch block QTc 475 No significant change from previous -Laboratory studies:Interpreted by me as stated above in MDM and shown below. Imaging studies: Xrays: As interpreted by me: Portable AP upright 1 view of the chest shows no focal Lutrate CTs show: CT abdomen pelvis shows a recently passed stone Procedures:none Critical Care: None Past Med/Surg History Medical History (Updated 12/31/23 @ 00:55 by Cristino Ley DO) History of kidney stones Osteoarthritis Chronic lower back pain History of pancreatitis DM type 2 (diabetes mellitus, type 2) History of skin cancer [place] (hard of hearing) HLD (hyperlipidemia) History of myocardial infarction 2016 & 2019 Sleep apnea no device Diverticulosis GERD (gastroesophageal reflux disease) IBS (irritable bowel syndrome) Precancerous lesion rectal CAD (coronary artery disease) Per patient, stenting x 5 in 2016 and restenting of 1 vessel performed in July 2020 Depression CKD (chronic kidney disease), stage IV follows with [facility] Nephrology HIV (human immunodeficiency virus infection) Surgical History S/P ureteral stent placement History of removal of ureteral stent History of cystoscopy History of colonoscopy History of cholecystectomy History of cardiac catheterization 2016 - stents 2019 -- restenting x 1. [facility] No pertinent past surgical history Family History Mother Heart disease Social History Smoking Status: Never smoker Tobacco Type: Cigarettes Second Hand Exposure: No; Do You Dip or Chew Tobacco: No; Hx Alcohol Use: Yes Alcohol type: beer, wine and hard liquor Alcohol Intake Frequency: Monthly or Less Hx Substance Use: No Preferred Language: Latvian Communication Ability: Effective [place]amp [place]ade Maker Required: No Beliefs That Will Affect Care: None Current Living Situation: Alone Feels Safe at Home: Yes Assistive Devices: Glasses and Hearing Aid - Bilateral Allergies Allergies Allergy/AdvReac Type Severity Reaction Status Date / Time No Known Allergies Allergy Unverified 12/30/23 23:49 Home Meds Home Medications Medication Instructions Recorded Confirmed atorvastatin 40 mg tablet 40 mg PO QAM 01/06/22 12/30/23 dolutegravir 50 mg-rilpivirine 25 1 tab PO QAM 01/06/22 12/30/23 mg tablet (Juluca) fluoxetine 20 mg capsule 20 mg PO QAM 01/06/22 12/30/23 insulin aspart U-100 100 unit/mL 10 unit subcut TIDM 01/06/22 12/30/23 (3 mL) subcutaneous pen (Novolog FlexPen U-100 Insulin aspart) multivitamin 1 tab PO QAM 01/06/22 12/30/23 omega 2-uth-ehg-fish oil 1,000 mg 1 cap PO QAM 01/06/22 12/30/23 (120 mg-180 mg) capsule (Fish Oil) prasugrel 10 mg tablet 10 mg PO QAM 01/06/22 12/30/23 calcitriol 0.5 mcg capsule 0.5 mcg PO QAM 10/31/22 12/30/23 insulin glargine 100 unit/mL (3 22 unit subcut QA 02/10/23 12/30/23 mL) subcutaneous pen (Basaglar KwikPen U-100 Insulin) aspirin 81 mg tablet,delayed 81 mg PO DAILY 12/30/23 12/30/23 release cholecalciferol (vitamin D3) 25 25 mcg PO QAM 12/30/23 12/30/23 mcg (1,000 unit) capsule (Vitamin D3) coenzyme Q10 10 mg capsule (Co 10 mg PO DAILY 12/30/23 12/30/23 Q-10) metoprolol succinate 25 mg 25 mg PO QAM 12/30/23 12/30/23 tablet,extended release 24 hr Results & Data (ED) Vital Signs Vital Signs - 24 hr 12/30/23 20:42 12/30/23 22:07 12/30/23 22:07 Temperature 36.8 C 36.8 C Temperature Source Temporal Artery Scan Oral Pulse Rate 127 H 114 H Pulse Rate [Left Apical] 112 H Pulse Rate from SpO2 Sensor Pulse Rhythm Regular Pulse Strength Normal Respiratory Rate 20 19 Respiratory Effort / Characteristics Non-Labored Spontaneous Non-Labored Respiratory Depth Normal Normal Respiratory Pattern Regular Blood Pressure 105/67 Blood Pressure [Right Arm] 149/91 H Blood Pressure Mean 79 Blood Pressure Mean [Right Arm] 110 Blood Pressure Position Sitting Pulse Oximetry 98 99 Oxygen Delivery Method Room Air Room Air Sepsis Recent Fever Within 48 Hours No Sepsis New/Unexplained Change in Mental Status N/A Sepsis Action Taken by Nursing No Action Required 12/30/23 22:07 12/30/23 22:08 12/30/23 22:08 Temperature Temperature Source Pulse Rate 114 H 112 H Pulse Rate [Left Apical] Pulse Rate from SpO2 Sensor 114 H 115 H Pulse Rhythm Pulse Strength Respiratory Rate 22 16 Respiratory Effort / Characteristics Respiratory Depth Respiratory Pattern Blood Pressure 149/91 H Blood Pressure [Right Arm] Blood Pressure Mean 99 Blood Pressure Mean [Right Arm] Blood Pressure Position Pulse Oximetry 97 97 Oxygen Delivery Method Sepsis Recent Fever Within 48 Hours Sepsis New/Unexplained Change in Mental Status Sepsis Action Taken by Nursing 12/30/23 22:10 12/30/23 22:20 12/30/23 22:30 Temperature Temperature Source Pulse Rate 111 H 108 H 107 H Pulse Rate [Left Apical] Pulse Rate from SpO2 Sensor 111 H 109 H Pulse Rhythm Pulse Strength Respiratory Rate 20 20 18 Respiratory Effort / Characteristics Respiratory Depth Respiratory Pattern Blood Pressure Blood Pressure [Right Arm] Blood Pressure Mean Blood Pressure Mean [Right Arm] Blood Pressure Position Pulse Oximetry 98 99 Oxygen Delivery Method Sepsis Recent Fever Within 48 Hours Sepsis New/Unexplained Change in Mental Status Sepsis Action Taken by Nursing 12/30/23 22:30 12/30/23 22:40 12/30/23 22:50 Temperature Temperature Source Pulse Rate 107 H 110 H Pulse Rate [Left Apical] Pulse Rate from SpO2 Sensor Pulse Rhythm Pulse Strength Respiratory Rate 20 26 H Respiratory Effort / Characteristics Respiratory Depth Respiratory Pattern Blood Pressure 133/68 Blood Pressure [Right Arm] Blood Pressure Mean 98 Blood Pressure Mean [Right Arm] Blood Pressure Position Pulse Oximetry Oxygen Delivery Method Sepsis Recent Fever Within 48 Hours Sepsis New/Unexplained Change in Mental Status Sepsis Action Taken by Nursing 12/30/23 23:09 12/30/23 23:10 12/30/23 23:23 Temperature Temperature Source Pulse Rate 110 H Pulse Rate [Left Apical] Pulse Rate from SpO2 Sensor 107 H 110 H Pulse Rhythm Pulse Strength Respiratory Rate 17 Respiratory Effort / Characteristics Respiratory Depth Respiratory Pattern Blood Pressure 134/71 Blood Pressure [Right Arm] Blood Pressure Mean 93 Blood Pressure Mean [Right Arm] Blood Pressure Position Pulse Oximetry 100 93 Oxygen Delivery Method Sepsis Recent Fever Within 48 Hours Sepsis New/Unexplained Change in Mental Status Sepsis Action Taken by Nursing 12/30/23 23:30 12/30/23 23:30 12/30/23 23:40 Temperature Temperature Source Pulse Rate 110 H 115 H Pulse Rate [Left Apical] Pulse Rate from SpO2 Sensor 110 H 111 H Pulse Rhythm Pulse Strength Respiratory Rate 20 32 H Respiratory Effort / Characteristics Respiratory Depth Respiratory Pattern Blood Pressure 136/80 Blood Pressure [Right Arm] Blood Pressure Mean 94 Blood Pressure Mean [Right Arm] Blood Pressure Position Pulse Oximetry 98 91 Oxygen Delivery Method Sepsis Recent Fever Within 48 Hours Sepsis New/Unexplained Change in Mental Status Sepsis Action Taken by Nursing 12/30/23 23:50 12/31/23 00:00 12/31/23 00:00 Temperature Temperature Source Pulse Rate 109 H 112 H Pulse Rate [Left Apical] Pulse Rate from SpO2 Sensor 110 H 112 H Pulse Rhythm Pulse Strength Respiratory Rate 15 26 H Respiratory Effort / Characteristics Respiratory Depth Respiratory Pattern Blood Pressure 133/79 Blood Pressure [Right Arm] Blood Pressure Mean 85 Blood Pressure Mean [Right Arm] Blood Pressure Position Pulse Oximetry 98 93 Oxygen Delivery Method Sepsis Recent Fever Within 48 Hours Sepsis New/Unexplained Change in Mental Status Sepsis Action Taken by Nursing 12/31/23 00:10 Temperature Temperature Source Pulse Rate 113 H Pulse Rate [Left Apical] Pulse Rate from SpO2 Sensor 112 H Pulse Rhythm Pulse Strength Respiratory Rate 18 Respiratory Effort / Characteristics Respiratory Depth Respiratory Pattern Blood Pressure Blood Pressure [Right Arm] Blood Pressure Mean Blood Pressure Mean [Right Arm] Blood Pressure Position Pulse Oximetry 97 Oxygen Delivery Method Sepsis Recent Fever Within 48 Hours Sepsis New/Unexplained Change in Mental Status Sepsis Action Taken by Nursing Laboratory Data 12/31/23 00:18 12/30/23 21:07 Lab Results 12/30/23 12/30/23 12/31/23 Range/Units 21:07 21:10 00:18 WBC 9.31 (4.8-10.8) K/ul RBC 4.96 (4.70-6.10) M/uL Hgb 13.3 L 12.3 L (14.0-18.0) g/dl Hct 40.7 L 36.1 L (42.0-52.0) % MCV 82.1 (80.0-100.0) fL MCH 26.8 (25.0-34.0) pg MCHC 32.7 (32.0-36.0) g/dL RDW Std Deviation 48.7 H (36.4-46.3) fL RDW Coeff of Meera 16.5 H (11.5-14.5) % Plt Count 249 (130-400) K/uL MPV 8.8 L (9.4-12.4) fL Immature Gran % (Auto) 2.1 % Neut % (Auto) 65.3 % Lymph % (Auto) 16.8 % [place] % (Auto) 13.5 % Eos % (Auto) 1.9 % Baso % (Auto) 0.4 % Neut # (Auto) 6.07 (1.40-6.50) K/uL Lymph # (Auto) 1.56 (1.20-3.40) K/uL [place] # (Auto) 1.26 H (0.11-0.59) K/uL Eos # (Auto) 0.18 (0.00-0.50) K/uL Baso # (Auto) 0.04 (0.00-0.20) K/uL Immature Gran # (Auto) 0.20 (0.01-0.20) K/uL APTT 38 H (21-31) Seconds PTT Ratio 1.3 VBG pH 7.10 L (7.36-7.41) VBG pCO2 22 L (38-50) mmHg VBG pO2 53 mmHg VBG HCO3 7 mmol/L VBG O2 Saturation 79.7 % VBG Base Excess -21.2 mEq/L Sodium 132 L (136-145) mmol/L Potassium 3.7 (3.5-5.1) mmol/L Chloride 107 (98-107) mmol/L Carbon Dioxide 7 L* (21-32) mmol/L Anion Gap 18 H (3-11) BUN 116 H (6-23) mg/dl Creatinine 11.08 H* (0.6-1.4) mg/dl Est Cr Clr Drug Dosing 6.2 ml/min Est GFR ( Amer) 4.8 ml/min Est GFR (Non-Af Amer) 4.1 ml/min BUN/Creatinine Ratio 10.5 (10-20) Glucose 171 H (70-99(Fasting)) mg/dl Calcium 8.7 (8.6-10.3) mg/dl Total Bilirubin 0.4 (0.2-1.0) mg/dl AST 27 (13-39) U/L ALT 51 (7-52) U/L Alkaline Phosphatase 108 H (34-104) U/L Total Protein 7.1 (6.0-8.3) gm/dl Albumin 3.9 (3.4-5.0) gm/dl Globulin 3.2 (2.5-4.0) gm/dl Albumin/Globulin Ratio 1.2 (0.9-2) Urine Color Yellow Urine Appearance Cloudy A (Clear) Urine pH 5.0 (4.5-7.5) Ur Specific [place] 1.011 (1.000-1.030) Urine Protein 1+ H (Negative) Urine Glucose (UA) 1+ H (Negative) Urine Ketones Negative (Negative) Urine Blood 1+ H (Negative) Urine Nitrite Negative (Negative) Urine Bilirubin Negative (Negative) Urine Urobilinogen Negative (Negative) Ur Leukocyte Esterase Negative (Negative) Urine WBC (Auto) 0-5 (0-5) /hpf Urine RBC (Auto) 0-2 (0-2) /hpf U Hyaline Cast (Auto) 3-5 H (0-2) /lpf U Epithel Cells (Auto) 0-2 (0-2) /hpf Urine Bacteria (Auto) None Seen (None Seen) Administered Medications Discontinued Medications Sodium Chloride (Nss) 1,000 mls @ 999 mls/hr IV .Q1H1M ONE Stop: 12/30/23 23:55 Last Admin: 12/30/23 23:10 Dose: 999 mls/hr Documented By: [facility] Metoprolol Tartrate (Metoprolol Tartrate 25 Mg Tab) 12.5 mg PO NOW STA Stop: 12/30/23 23:22 Last Admin: 12/31/23 00:17 Dose: 12.5 mg Documented By: KG Oxycodone HCl (Oxycodone Hcl Ir 5 Mg Tab (Immediate Release)) 5 mg PO NOW STA Stop: 12/30/23 23:47 Last Admin: 12/31/23 00:17 Dose: 5 mg Documented By: KG Imaging Data Radiologist's Impression: Abdomen/Pelvis CT 12/30/23 22:55 Exam(s): CT ABDOMEN + PELVIS Without Contrast EXAM: CT Abdomen and Pelvis Without Intravenous Contrast CLINICAL HISTORY: Reason for exam: yasir. TECHNIQUE: Axial computed tomography images of the abdomen and pelvis without intravenous contrast. CTDI is 24.25 mGy and DLP is 1275.52 mGy-cm. Automated exposure control was utilized for the study. A dose lowering technique was utilized adhering to the principles of ALARA. COMPARISON: No relevant prior studies available. FINDINGS: Lung bases: Unremarkable. No mass. No consolidation. ABDOMEN: Liver: Unremarkable. Gallbladder and bile ducts: Cholecystectomy. No ductal dilation. Pancreas: Atrophy of the pancreas with calcifications, consistent with sequelae of chronic pancreatitis. No ductal dilation. Spleen: Unremarkable. No splenomegaly. Adrenals: Unremarkable. No mass. Kidneys and ureters: Nonobstructing 5 mm stone in the urinary bladder, recently passed in the RIGHT renal collecting system. Mild residual hydronephrosis of the RIGHT kidney. Bilateral renal cysts. Stomach and bowel: Mild fluid-filled small bowel with mild wall thickening, concerning for mild enteritis. No small bowel obstruction. PELVIS: Appendix: No findings to suggest acute appendicitis. Bladder: Unremarkable. No stones. Reproductive: Unremarkable as visualized. ABDOMEN and PELVIS: Intraperitoneal space: Unremarkable. No free air. No significant fluid collection. Bones/joints: Degenerative changes of the spine. No acute fracture. No dislocation. Soft tissues: Unremarkable. Vasculature: Atherosclerotic changes of the aorta. No abdominal aortic aneurysm. Lymph nodes: Unremarkable. No enlarged lymph nodes. IMPRESSION: 1. Nonobstructing 5 mm stone in the urinary bladder, recently passed in the RIGHT renal collecting system. Mild residual hydronephrosis of the RIGHT kidney. 2. Mild fluid-filled small bowel with mild wall thickening, concerning for mild enteritis. Electronically signed by: Ryan Cueto MD 12/31/23 00:03 AM Discharge Plan Visit Data Chief Complaint: Illness Stated Complaint: SOB, BLOODY STOOL, 3 KIDNEY STONES, HALLUSINATIONS ED Provider: Cristino Ley Discharge Problem: YASIR (acute kidney injury), Immunosuppressed status, Diarrhea, Acute dehydration, Metabolic acidosis Forms Stand Alone Forms: My [facility] [place] [facility] Prescriptions Prescriptions: No Action calcitriol 0.5 mcg capsule 0.5 mcg PO QAM insulin glargine [Basaglar KwikPen U-100 Insulin] 100 unit/mL (3 mL) insulin pen 22 unit SUBCUT QAM atorvastatin 40 mg tablet 40 mg PO QAM fluoxetine 20 mg capsule 20 mg PO QAM insulin aspart U-100 [Novolog FlexPen U-100 Insulin] 100 unit/mL (3 mL) insulin pen 10 unit subcut TIDM prasugrel 10 mg tablet 10 mg PO QAM Juluca 50-25 mg tablet 1 tab PO QAM multivitamin Tablet 1 tab PO QAM omega 9-hno-psg-fish oil [Fish Oil] 1,000 mg (120 mg-180 mg) Capsule 1 cap PO QAM metoprolol succinate 25 mg tablet extended release 24 hr 25 mg PO QAM coenzyme Q10 [Co Q-10] 10 mg Capsule 10 mg PO DAILY aspirin [Aspirin Low-Strength] 81 mg Tablet,Delayed Release (Dr/Ec) 81 mg PO DAILY cholecalciferol (vitamin D3) [Vitamin D3] 25 mcg (1,000 unit) Capsule 25 mcg PO QAM Referrals Referrals: Antonio Colon MD [Primary Care Provider] - Discharge Problem: Diarrhea Qualifiers: Diarrhea type: unspecified type Qualified Code(s): R19.7 - Diarrhea, unspecified
[2023-12-30] MEDS: SODIUM CHLORIDE 0.9% 1,000 ML IV ONE (23:10)
--- NOTE | 2023-12-31 00:04 | CT Scan Report ---
Exam(s): CT ABDOMEN + PELVIS Without Contrast EXAM: CT Abdomen and Pelvis Without Intravenous Contrast CLINICAL HISTORY: Reason for exam: michele. TECHNIQUE: Axial computed tomography images of the abdomen and pelvis without intravenous contrast. CTDI is 24.25 mGy and DLP is 1275.52 mGy-cm. Automated exposure control was utilized for the study. A dose lowering technique was utilized adhering to the principles of ALARA. COMPARISON: No relevant prior studies available. FINDINGS: Lung bases: Unremarkable. No mass. No consolidation. ABDOMEN: Liver: Unremarkable. Gallbladder and bile ducts: Cholecystectomy. No ductal dilation. Pancreas: Atrophy of the pancreas with calcifications, consistent with sequelae of chronic pancreatitis. No ductal dilation. Spleen: Unremarkable. No splenomegaly. Adrenals: Unremarkable. No mass. Kidneys and ureters: Nonobstructing 5 mm stone in the urinary bladder, recently passed in the RIGHT renal collecting system. Mild residual hydronephrosis of the RIGHT kidney. Bilateral renal cysts. Stomach and bowel: Mild fluid-filled small bowel with mild wall thickening, concerning for mild enteritis. No small bowel obstruction. PELVIS: Appendix: No findings to suggest acute appendicitis. Bladder: Unremarkable. No stones. Reproductive: Unremarkable as visualized. ABDOMEN and PELVIS: Intraperitoneal space: Unremarkable. No free air. No significant fluid collection. Bones/joints: Degenerative changes of the spine. No acute fracture. No dislocation. Soft tissues: Unremarkable. Vasculature: Atherosclerotic changes of the aorta. No abdominal aortic aneurysm. Lymph nodes: Unremarkable. No enlarged lymph nodes. IMPRESSION: 1. Nonobstructing 5 mm stone in the urinary bladder, recently passed in the RIGHT renal collecting system. Mild residual hydronephrosis of the RIGHT kidney. 2. Mild fluid-filled small bowel with mild wall thickening, concerning for mild enteritis. Electronically signed by: Ryan Cueto MD 12/31/23 00:03 AM
[2023-12-31] MEDS: oxyCODONE HCL IR 5 MG TAB (IMMEDIATE RELEASE) PO STA (00:17)
[2023-12-31] MEDS: METOPROLOL TARTRATE 25 MG TAB PO STA (00:17)
[2023-12-31 00:26] LABS: Base Excess VBG -21.2 mEq/L; HCO3 VBG 7 mmol/L; Oxygen Saturation VBG 79.7 %; PCO2 VBG 22 mmHg (38-50); PO2 VBG 53 mmHg
[2023-12-31 00:34] LABS: Hematocrit (blood only) 36.1 % (42.0-52.0); Hemoglobin 12.3 g/dl (14.0-18.0)
[2023-12-31 02:29] LABS: Magnesium 2.2 mg/dl (1.7-2.4)
[2023-12-31 02:44] LABS: Thyroid Stimulating Hormone 7.558 uIu/ml (0.300-4.500)
--- NOTE | 2023-12-31 02:55 | History & Physical Report ---
Date of Service December 31, 2023 Assessment & Plan (1) YASIR (acute kidney injury): Plan: ARF on CKD secondary to diarrheal illness and obstructive uropathy from recurrent kidney stones AGMA secondary to above Acute on chronic anemia secondary to LGIB, patient nontoxic, history colonic polyps/internal hemorrhoids, anal HGSIL as per records chronic systolic heart failure, patient on the dry side hx CAD status post stent chronic LBBB hypertension, BP on the lower side hyperlipidemia, on statin Rx HIV on Rx, stable disease as per [facility] ID note from last month DM2 insulin requiring, suboptimal control as of hemoglobin A1c of 9.18 May 2023 mood disorder, stable 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 SCDs Re: GI bleed Full code Text document was generated using Visante voice recognition software. It may contain grammatical or spelling errors. Kindly contact undersigned for clarification of any documentation item in question. History of Present Illness Chief Complaint: Abdominal/back pain, hematochezia Primary Care Provider: Antonio Colon MD History obtained from patient and records. Medical history significant for chronic systolic heart failure (EF 45%, TTE 2022), CAD status post stent (2017), chronic LBBB, hypertension, hyperlipidemia, HIV on Rx, DM2 insulin requiring, CRI (baseline creatinine 2.7-3.1), chronic anemia (baseline hemoglobin of 13), history colonic polyps/internal hemorrhoids, anal HGSIL as per records, urolithiasis, mood disorder, past tobacco abuse. Last confinement October 2022 for syncope attributed to dehydration from hyperglycemia. 2 weeks history of achy abdominal pain associated with watery diarrhea later noted to be bloody 2 days ago. Bilious emesis. No chest pain, no SOB. Not sure about sick contacts. No recent antibiotic Rx/out-of-town travel/new restaurants. Denies OTC NSAID intake. At about the same time, patient experienced flank pain similar to kidney stone attacks. Stone passage noted at home. Poor appetite since illness. 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 Allergies Allergy/AdvReac Type Severity Reaction Status Date / Time No Known Allergies Allergy Unverified 12/30/23 23:49 Home Medications Medication Instructions Recorded Confirmed Type atorvastatin 40 mg tablet 40 mg PO QAM 01/06/22 12/30/23 History dolutegravir 50 mg-rilpivirine 25 1 tab PO QAM 01/06/22 12/30/23 History mg tablet (Juluca) fluoxetine 20 mg capsule 20 mg PO QAM 01/06/22 12/30/23 History insulin aspart U-100 100 unit/mL 10 unit subcut TIDM 01/06/22 12/30/23 History (3 mL) subcutaneous pen (Novolog FlexPen U-100 Insulin aspart) multivitamin 1 tab PO QAM 01/06/22 12/30/23 History omega 0-hco-bgv-fish oil 1,000 mg 1 cap PO QAM 01/06/22 12/30/23 History (120 mg-180 mg) capsule (Fish Oil) prasugrel 10 mg tablet 10 mg PO QAM 01/06/22 12/30/23 History calcitriol 0.5 mcg capsule 0.5 mcg PO QAM 10/31/22 12/30/23 History insulin glargine 100 unit/mL (3 22 unit subcut QAM 02/10/23 12/30/23 History mL) subcutaneous pen (Basaglar KwikPen U-100 Insulin) aspirin 81 mg tablet,delayed 81 mg PO DAILY 12/30/23 12/30/23 History release cholecalciferol (vitamin D3) 25 25 mcg PO QAM 12/30/23 12/30/23 History mcg (1,000 unit) capsule (Vitamin D3) coenzyme Q10 10 mg capsule (Co 10 mg PO DAILY 12/30/23 12/30/23 History Q-10) metoprolol succinate 25 mg 25 mg PO QAM 12/30/23 12/30/23 History tablet,extended release 24 hr Past Med/Surg History Medical History History of kidney stones Osteoarthritis Chronic lower back pain History of pancreatitis DM type 2 (diabetes mellitus, type 2) History of skin cancer [place] (hard of hearing) HLD (hyperlipidemia) History of myocardial infarction 2016 & 2019 Sleep apnea no device Diverticulosis GERD (gastroesophageal reflux disease) IBS (irritable bowel syndrome) Precancerous lesion rectal CAD (coronary artery disease) Per patient, stenting x 5 in 2017 and restenting of 1 vessel performed in July 2020 Depression CKD (chronic kidney disease), stage IV follows with [facility] Nephrology HIV (human immunodeficiency virus infection) Surgical History S/P ureteral stent placement History of removal of ureteral stent History of cystoscopy History of colonoscopy History of cholecystectomy History of cardiac catheterization 2016 - stents 2019 -- restenting x 1. 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 Beliefs That Will Affect Care: None Current Living Situation: Alone Other Information That Helps Us Care for You: No Feels Safe at Home: Yes Safety Concerns: Feels Safe At This Time Assistive Devices: None Review of Systems Review of Systems: As per HPI, all other systems reviewed and negative Physical Exam Physical Exam: GENERAL: Comfortable, pleasant, slightly hard of hearing, tremulous (chronic as per patient), no respiratory distress SKIN: Pallor, warm HEENT: Pale palpebral conjunctivae, no ptosis, dry buccal mucosa NECK : Supple, no tenderness CHEST : CTA, no tenderness HEART : Tachycardic, no obvious murmurs ABDOMEN: Marked distention, central abdominal tenderness EXTREMITIES : No LE swelling/tenderness, no other conspicuous deformities noted NEUROLOGIC : Coherent, no facial asymmetry, chronic tremors as per patient, no other gross focality Results & Data Results & Data Vital Signs (Past 12 Hours) Vital Signs Temp Pulse Pulse Resp BP BP Pulse Ox 12/31/23 02:28 100 H 12/31/23 01:40 57 L 18 133/81 95 12/31/23 00:10 113 H 18 97 12/31/23 00:00 133/79 12/31/23 00:00 112 H 26 H 93 12/30/23 23:50 109 H 15 98 12/30/23 23:40 115 H 32 H 91 12/30/23 23:30 136/80 12/30/23 23:30 110 H 20 98 12/30/23 23:23 93 12/30/23 23:10 110 H 17 100 12/30/23 23:09 134/71 12/30/23 22:50 110 H 26 H 12/30/23 22:40 107 H 20 12/30/23 22:30 133/68 12/30/23 22:30 107 H 18 12/30/23 22:20 108 H 20 99 12/30/23 22:10 111 H 20 98 12/30/23 22:08 112 H 16 97 12/30/23 22:08 149/91 H 12/30/23 22:07 114 H 22 97 12/30/23 22:07 114 H 12/30/23 22:07 36.8 C 112 H 19 149/91 H 99 12/30/23 20:42 36.8 C 127 H 20 105/67 98 O2 Del Method 12/31/23 02:28 12/31/23 01:40 Room Air 12/31/23 00:10 12/31/23 00:00 12/31/23 00:00 12/30/23 23:50 12/30/23 23:40 12/30/23 23:30 12/30/23 23:30 12/30/23 23:23 12/30/23 23:10 12/30/23 23:09 12/30/23 22:50 12/30/23 22:40 12/30/23 22:30 12/30/23 22:30 12/30/23 22:20 12/30/23 22:10 12/30/23 22:08 12/30/23 22:08 12/30/23 22:07 12/30/23 22:07 12/30/23 22:07 Room Air 12/30/23 20:42 Room Air Laboratory Results Laboratory Results WBC 9.31 K/ul (4.8-10.8) 12/30/23 21:07 RBC 4.96 M/uL (4.70-6.10) 12/30/23 21:07 Hgb 12.3 g/dl (14.0-18.0) L 12/31/23 00:18 Hct 36.1 % (42.0-52.0) L 12/31/23 00:18 MCV 82.1 fL (80.0-100.0) 12/30/23 21:07 MCH 26.8 pg (25.0-34.0) 12/30/23 21:07 MCHC 32.7 g/dL (32.0-36.0) 12/30/23 21:07 RDW Std Deviation 48.7 fL (36.4-46.3) H 12/30/23 21:07 RDW Coeff of Meera 16.5 % (11.5-14.5) H 12/30/23 21:07 Plt Count 249 K/uL (130-400) 12/30/23 21:07 MPV 8.8 fL (9.4-12.4) L 12/30/23 21:07 Immature Gran % (Auto) 2.1 % 12/30/23 21:07 Neut % (Auto) 65.3 % 12/30/23 21:07 Lymph % (Auto) 16.8 % 12/30/23 21:07 [place] % (Auto) 13.5 % 12/30/23 21:07 Eos % (Auto) 1.9 % 12/30/23 21:07 Baso % (Auto) 0.4 % 12/30/23 21:07 Neut # (Auto) 6.07 K/uL (1.40-6.50) 12/30/23 21:07 Lymph # (Auto) 1.56 K/uL (1.20-3.40) 12/30/23 21:07 [place] # (Auto) 1.26 K/uL (0.11-0.59) H 12/30/23 21:07 Eos # (Auto) 0.18 K/uL (0.00-0.50) 12/30/23 21:07 Baso # (Auto) 0.04 K/uL (0.00-0.20) 12/30/23 21:07 Immature Gran # (Auto) 0.20 K/uL (0.01-0.20) 12/30/23 21:07 APTT 38 Seconds (21-31) H 12/30/23 21:07 PTT Ratio 1.3 12/30/23 21:07 VBG pH 7.10 (7.36-7.41) L 12/31/23 00:18 VBG pCO2 22 mmHg (38-50) L 12/31/23 00:18 VBG pO2 53 mmHg 12/31/23 00:18 VBG HCO3 7 mmol/L 12/31/23 00:18 VBG O2 Saturation 79.7 % 12/31/23 00:18 VBG Base Excess -21.2 mEq/L 12/31/23 00:18 Sodium 132 mmol/L (136-145) L 12/30/23 21:07 Potassium 3.7 mmol/L (3.5-5.1) 12/30/23 21:07 Chloride 107 mmol/L (98-107) 12/30/23 21:07 Carbon Dioxide 7 mmol/L (21-32) L* 12/30/23 21:07 Anion Gap 18 (3-11) H 12/30/23 21:07 BUN 116 mg/dl (6-23) H 12/30/23 21:07 Creatinine 11.08 mg/dl (0.6-1.4) H* 12/30/23 21:07 Est Cr Clr Drug Dosing 6.2 ml/min 12/30/23 21:07 Est GFR ( Amer) 4.8 ml/min 12/30/23 21:07 Est GFR (Non-Af Amer) 4.1 ml/min 12/30/23 21:07 BUN/Creatinine Ratio 10.5 (10-20) 12/30/23 21:07 Glucose 171 mg/dl (70-99(Fasting)) H 12/30/23 21:07 Calcium 8.7 mg/dl (8.6-10.3) 12/30/23 21:07 Magnesium 2.2 mg/dl (1.7-2.4) 12/30/23 21:07 Total Bilirubin 0.4 mg/dl (0.2-1.0) 12/30/23 21:07 AST 27 U/L (13-39) 12/30/23 21:07 ALT 51 U/L (7-52) 12/30/23 21:07 Alkaline Phosphatase 108 U/L (34-104) H 12/30/23 21:07 Total Creatine Kinase 148 U/L (30-223) 12/30/23 21:07 Total Protein 7.1 gm/dl (6.0-8.3) 12/30/23 21:07 Albumin 3.9 gm/dl (3.4-5.0) 12/30/23 21:07 Globulin 3.2 gm/dl (2.5-4.0) 12/30/23 21:07 Albumin/Globulin Ratio 1.2 (0.9-2) 12/30/23 21:07 TSH 7.558 uIu/ml (0.300-4.500) H 12/30/23 21:07 Urine Color Yellow 12/30/23 21:10 Urine Appearance Cloudy (Clear) A 12/30/23 21:10 Urine pH 5.0 (4.5-7.5) 12/30/23 21:10 Ur Specific [place] 1.011 (1.000-1.030) 12/30/23 21:10 Urine Protein 1+ (Negative) H 12/30/23 21:10 Urine Glucose (UA) 1+ (Negative) H 12/30/23 21:10 Urine Ketones Negative (Negative) 12/30/23 21:10 Urine Blood 1+ (Negative) H 12/30/23 21:10 Urine Nitrite Negative (Negative) 12/30/23 21:10 Urine Bilirubin Negative (Negative) 12/30/23 21:10 Urine Urobilinogen Negative (Negative) 12/30/23 21:10 Ur Leukocyte Esterase Negative (Negative) 12/30/23 21:10 Urine WBC (Auto) 0-5 /hpf (0-5) 12/30/23 21:10 Urine RBC (Auto) 0-2 /hpf (0-2) 12/30/23 21:10 U Hyaline Cast (Auto) 3-5 /lpf (0-2) H 12/30/23 21:10 U Epithel Cells (Auto) 0-2 /hpf (0-2) 12/30/23 21:10 Urine Bacteria (Auto) None Seen (None Seen) 12/30/23 21:10 Blood Type A Positive 12/31/23 00:18 Antibody Screen NEGATIVE 12/31/23 00:18 Impressions Abdomen/Pelvis CT 12/30/23 22:55 Exam(s): CT ABDOMEN + PELVIS Without Contrast EXAM: CT Abdomen and Pelvis Without Intravenous Contrast CLINICAL HISTORY: Reason for exam: yasir. TECHNIQUE: Axial computed tomography images of the abdomen and pelvis without intravenous contrast. CTDI is 24.25 mGy and DLP is 1275.52 mGy-cm. Automated exposure control was utilized for the study. A dose lowering technique was utilized adhering to the principles of ALARA. COMPARISON: No relevant prior studies available. FINDINGS: Lung bases: Unremarkable. No mass. No consolidation. ABDOMEN: Liver: Unremarkable. Gallbladder and bile ducts: Cholecystectomy. No ductal dilation. Pancreas: Atrophy of the pancreas with calcifications, consistent with sequelae of chronic pancreatitis. No ductal dilation. Spleen: Unremarkable. No splenomegaly. Adrenals: Unremarkable. No mass. Kidneys and ureters: Nonobstructing 5 mm stone in the urinary bladder, recently passed in the RIGHT renal collecting system. Mild residual hydronephrosis of the RIGHT kidney. Bilateral renal cysts. Stomach and bowel: Mild fluid-filled small bowel with mild wall thickening, concerning for mild enteritis. No small bowel obstruction. PELVIS: Appendix: No findings to suggest acute appendicitis. Bladder: Unremarkable. No stones. Reproductive: Unremarkable as visualized. ABDOMEN and PELVIS: Intraperitoneal space: Unremarkable. No free air. No significant fluid collection. Bones/joints: Degenerative changes of the spine. No acute fracture. No dislocation. Soft tissues: Unremarkable. Vasculature: Atherosclerotic changes of the aorta. No abdominal aortic aneurysm. Lymph nodes: Unremarkable. No enlarged lymph nodes. IMPRESSION: 1. Nonobstructing 5 mm stone in the urinary bladder, recently passed in the RIGHT renal collecting system. Mild residual hydronephrosis of the RIGHT kidney. 2. Mild fluid-filled small bowel with mild wall thickening, concerning for mild enteritis. Electronically signed by: Ryan Cueto MD 12/31/23 00:03 AM Diagnostic Findings EKG as per my interpretation :Rate 120, sinus tachycardia, LAD, LAFB, LBBB
[2023-12-31] MEDS: POTASSIUM CHLORIDE 20 MEQ in LACTATED RINGER'S 1,000 ML IV ONE (02:58)
[2023-12-31 04:20] LABS: Base Excess VBG -21.2 mEq/L; HCO3 VBG 7 mmol/L; PCO2 VBG 22 mmHg (38-50); PO2 VBG 50 mmHg
[2023-12-31] MEDS ORDERED: GLUCOSE 40% GEL 15 GM TUBE PO PRN (04:25)
[2023-12-31] MEDS ORDERED: CARBOHYDRATES FOR HYPOGLYCEMIA PO PRN (04:25)
[2023-12-31] MEDS ORDERED: DEXTROSE 50% 50 ML SYRINGE IV PRN (04:25)
[2023-12-31] MEDS ORDERED: GLUCAGON FOR INJ 1 MG VIAL SQ PRN (04:25)
[2023-12-31] MEDS ORDERED: GLUCOSE 10 TAB/TUBE PO PRN (04:25)
[2023-12-31 04:43] LABS: BUN Creatinine Ratio 10.7 (10-20); Calcium 8.5 mg/dl (8.6-10.3); Creatinine Clr Calc Pharmacy 6.2 ml/min; Est GFR (African American) 4.8 ml/min; Est GFR (Non-African American) 4.1 ml/min; Potassium 3.6 mmol/L (3.5-5.1)
[2023-12-31] MEDS: INSULIN ASPART PER UNIT CHARGE SC SCH (05:48)
[2023-12-31 05:54] LABS: T4 Free Thyroxine 0.51 ng/dl (0.61-1.60)
[2023-12-31] MEDS: LACTATED RINGER'S 1,000 ML IV ONE (06:30)
--- NOTE | 2023-12-31 06:40 | XRay Report ---
XR chest 1V portable CLINICAL HISTORY: renal failure COMPARISON STUDY: Chest radiograph October 31, 2022. FINDINGS: Mild elevation of the left hemidiaphragm is unchanged. Linear left basilar densities favor atelectasis. There is no pneumothorax or pleural effusion. Mild cardiomegaly is unchanged. Mediastina l contours are normal. There is no evidence for pulmonary edema. IMPRESSION: No acute cardiopulmonary findings. ACT 112: Negative or not required by law. Electronically signed by: Igor Roberts M.D. 12/31/2023 6:39 AM
[2023-12-31 06:55] LABS: Basophils # (auto) 0.03 K/uL (0.00-0.20); Basophils % (auto) 0.4 %; Eosinophils # (auto) 0.09 K/uL (0.00-0.50); Eosinophils % (auto) 1.2 %; Hematocrit (blood only) 33.8 % (42.0-52.0); Hemoglobin 11.6 g/dl (14.0-18.0); Immature Granulocytes # (auto) 0.18 K/uL (0.01-0.20); Immature Granulocytes % (auto) 2.4 %; Lymphocytes # (auto) 1.51 K/uL (1.20-3.40); Lymphocytes % (auto) 19.7 %; Mean Corpuscular Hemoglobin 27.7 pg (25.0-34.0); Mean Corpuscular Hgb Conc 34.3 g/dL (32.0-36.0); Mean Corpuscular Volume 80.7 fL (80.0-100.0); Mean Platelet Volume 9.1 fL (9.4-12.4); Monocytes # (auto) 1.15 K/uL (0.11-0.59); Neutrophils # (auto) 4.69 K/uL (1.40-6.50); Neutrophils % (auto) 61.3 %; Platelet Count 190 K/uL (130-400); RDW Coefficient of Variation 16.2 % (11.5-14.5); RDW Standard Deviation 47.5 fL (36.4-46.3); Red Blood Count 4.19 M/uL (4.70-6.10); White Blood Count 7.65 K/ul (4.8-10.8)
[2023-12-31 07:27] LABS: Estimated Average Glucose 206 mg/dl; Hemoglobin A1C 8.8 % (4.5-5.6)
[2023-12-31] MEDS: LACTATED RINGER'S 1,000 ML IV SCH (07:30)
[2023-12-31 07:41] LABS: Hematocrit (blood only) 34.9 % (42.0-52.0); Hemoglobin 11.9 g/dl (14.0-18.0)
--- NOTE | 2023-12-31 08:18 | Urology Consultation ---
Date of Consultation December 31, 2023 Assessment & Plan (1) Hydronephrosis concurrent with and due to calculi of kidney and ureter: (2) YASIR (acute kidney injury): (3) CKD (chronic kidney disease) stage 4, GFR 15-29 ml/min: Plan 68yo/M admitted with diarrheal illness, YASIR on CKD, and hydronephrosis. Afebrile with soft BP. Labs - Creatinine 11.08- 11.17- 10.94; No leukocytosis. Urinalysis not indicative of infection. Rodriguez intact and draining clear yellow urine. CT abdomen pelvis noted a nonobstructing 5 mm stone in the urinary bladder with mild residual hydronephrosis of the right kidney possibly representing a recently passed stone. Imaging independently reviewed. Discussed with patient that we cannot definitively rule out that the stone is all the way out of the ureter. Therefore, given the hydronephrosis and acute renal failure, our recommendation is for ureteral stent placement - he is agreeable. Will plan to proceed to OR today for cystoscopy, right retrograde pyelogram, right ureteral stent placement, possible ureteroscopy, laser lithotripsy/stone treatment. Risk and benefits to be reviewed with patient by Dr. Gomez. OR notified. Will cover with IV Ancef preoperatively. Continue supportive care. Urology will follow. Attending note: Patient independently assessed, examined, interviewed, and evaluated. Agree with note as above. Patient's vitals and labs were all reviewed. Pertinent values in the HPI and plan section. Imaging was reviewed interpreted by myself. Agree with read. Vitals were reviewed. Discussed findings extensively with patient and family. Reviewed with nurse practitioner as well as consulting physicians/team. Patient's complicated medical and surgical history was reviewed and summarized above. Patient's surgical, medical, social, and family history were all reviewed with pertinent values as above. Patient's imaging is showing possible stone within the bladder with significant hydronephrosis. Does have signs of atrophy of the left kidney with significant hydronephrosis going to the right. Creatinine has mildly improved now down to 10.94 though extremely elevated. Concern for possible metabolic acidosis as well as significant metabolic derangement. Patient's white count was 7.65. Does have catheter in place is only making a small amount of urine with approximately 400 cc per measurements. Blood pressures have decreased over time with BP now at 100/59. Temp is 36.4. Pulse was 75. Was satting 97% on room air. Hemoglobin was 11.9. Discussed patient's current diagnosis as well as concerns and issues. Reviewed different options moving forward. Discussed potential risks and benefits as well as possible options and concerns. Reviewed potential surgical options and interventions. Discussed potential issues and concerns related to intervention. Risk and benefits were discussed extensively with patient and any available family. Discussed potential risks related to anesthesia. Discussed risks of bleeding infection and injury. Risks and benefits discussed at length for procedure. These include bleeding, infection, injury to surrounding tissues or organs, and risks associated with anesthesia. Patient states understanding and agrees to proceed. Will sign consent and proceed. Plan for cystoscopy with possible right stent placement possible ureteroscopy and stone extraction. Will plan to proceed with urgent intervention due to severe YASIR with possible solitary kidney and significant hydronephrosis. History of Present Illness Attending Physician: Laura Menjivar MD History of Present Illness 68 year old male with a past medical history of HIV and CKD who presented to the ED on 12/30/2023 with complaints of weakness and diarrhea. On arrival he was afebrile and hemodynamically stable. Labs showing no leukocytosis or anemia. Creatinine was noted to be 11.08 (last creatinine was 3.27 in Oct 2022). Urinalysis without signs of infection. CT abdomen pelvis obtained and demonstrated evidence of a recently passed stone with a 5 mm stone in the urinary bladder and some mild residual hydronephrosis of the right kidney. A Rodriguez catheter was placed. Patient admitted to medicine service. CT abdomen pelvis- 1. Nonobstructing 5 mm stone in the urinary bladder, recently passed in the RIGHT renal collecting system. Mild residual hydronephrosis of the RIGHT kidney. 2. Mild fluid-filled small bowel with mild wall thickening, concerning for mild enteritis. Patient examined at bedside in the ED. Awake, resting in bed on arrival. No acute distress. He reports back pain, R>L. Rodriguez intact and draining clear yellow urine. Denies fever, chills, nausea, vomiting. Has been NPO other than a few sips of water. Prior to his arrival in the ED, he reports several weeks of ill feelings, diarrhea, poor p.o. intake. He reports passing several kidney stones. He also reports decreased urine output over the last few days. He reports a history of kidney stones with prior stent in the past at an outside facility. Allergies Allergy/AdvReac Type Severity Reaction Status Date / Time No Known Allergies Allergy Unverified 12/30/23 23:49 Home Medications Medication Instructions Recorded Confirmed Type atorvastatin 40 mg tablet 40 mg PO QAM 01/06/22 12/30/23 History dolutegravir 50 mg-rilpivirine 25 1 tab PO QAM 01/06/22 12/30/23 History mg tablet (Juluca) fluoxetine 20 mg capsule 20 mg PO QAM 01/06/22 12/30/23 History insulin aspart U-100 100 unit/mL 10 unit subcut TIDM 01/06/22 12/30/23 History (3 mL) subcutaneous pen (Novolog FlexPen U-100 Insulin aspart) multivitamin 1 tab PO QAM 01/06/22 12/30/23 History omega 1-ihy-gyw-fish oil 1,000 mg 1 cap PO QAM 01/06/22 12/30/23 History (120 mg-180 mg) capsule (Fish Oil) prasugrel 10 mg tablet 10 mg PO QAM 01/06/22 12/30/23 History calcitriol 0.5 mcg capsule 0.5 mcg PO QAM 10/31/22 12/30/23 History insulin glargine 100 unit/mL (3 22 unit subcut QAM 02/10/23 12/30/23 History mL) subcutaneous pen (Basaglar KwikPen U-100 Insulin) aspirin 81 mg tablet,delayed 81 mg PO DAILY 12/30/23 12/30/23 History release cholecalciferol (vitamin D3) 25 25 mcg PO QAM 12/30/23 12/30/23 History mcg (1,000 unit) capsule (Vitamin D3) coenzyme Q10 10 mg capsule (Co 10 mg PO DAILY 12/30/23 12/30/23 History Q-10) metoprolol succinate 25 mg 25 mg PO QAM 12/30/23 12/30/23 History tablet,extended release 24 hr Patient History Medical History History of kidney stones Osteoarthritis Chronic lower back pain History of pancreatitis DM type 2 (diabetes mellitus, type 2) History of skin cancer [place] (hard of hearing) HLD (hyperlipidemia) History of myocardial infarction 2016 & 2019 Sleep apnea no device Diverticulosis GERD (gastroesophageal reflux disease) IBS (irritable bowel syndrome) Precancerous lesion rectal CAD (coronary artery disease) Per patient, stenting x 5 in 2017 and restenting of 1 vessel performed in July 2020 Depression CKD (chronic kidney disease), stage IV follows with [facility] Nephrology HIV (human immunodeficiency virus infection) Surgical History S/P ureteral stent placement History of removal of ureteral stent History of cystoscopy History of colonoscopy History of cholecystectomy History of cardiac catheterization 2016 - stents 2019 -- restenting x 1. [facility] No pertinent past surgical history Family History Mother Heart disease Social History Smoking Status: Former smoker Tobacco Type: Cigarettes Second Hand Exposure: No; Do You Dip or Chew Tobacco: No; Tobacco Cessation Education Requested by Patient: No Hx Alcohol Use: Yes Alcohol type: beer, wine and hard liquor Alcohol Intake Frequency: Monthly or Less Hx Substance Use: No Preferred Language: Slovenian Communication Ability: Effective Service Loss Control Consultant Required: No Beliefs That Will Affect Care: None Current Living Situation: Alone Other Information That Helps Us Care for You: No Feels Safe at Home: Yes Safety Concerns: Feels Safe At This Time Assistive Devices: None Review of Systems Review of Systems: All systems reviewed & are unremarkable except as noted in HPI & below Physical Exam Constitutional: no acute distress Neck: normal visual inspection Respiratory: no respiratory distress and no labored breathing Musculoskeletal: Head/Neck/Chest: normocephalic Skin: No visible rashes or lesions to exposed skin areas Neurologic: moves all extremities and awake Psychiatric: A+Ox3, euthymic affect Genitourinary: Rodriguez intact and draining clear yellow urine Results & Data Vital Signs (Past 12 Hours) Vital Signs Temp Pulse Pulse Resp BP BP Pulse Ox 12/31/23 08:10 85 12/31/23 07:38 84 16 105/56 L 96 12/31/23 07:00 72 18 70/52 L 98 12/31/23 05:30 86 15 116/75 95 12/31/23 04:25 85 16 116/75 98 12/31/23 02:28 100 H 12/31/23 01:40 57 L 18 133/81 95 12/31/23 00:10 113 H 18 97 12/31/23 00:00 133/79 12/31/23 00:00 112 H 26 H 93 12/30/23 23:50 109 H 15 98 12/30/23 23:40 115 H 32 H 91 12/30/23 23:30 136/80 12/30/23 23:30 110 H 20 98 12/30/23 23:23 93 12/30/23 23:10 110 H 17 100 12/30/23 23:09 134/71 12/30/23 22:50 110 H 26 H 12/30/23 22:40 107 H 20 12/30/23 22:30 133/68 12/30/23 22:30 107 H 18 12/30/23 22:20 108 H 20 99 12/30/23 22:10 111 H 20 98 12/30/23 22:08 112 H 16 97 12/30/23 22:08 149/91 H 12/30/23 22:07 114 H 22 97 12/30/23 22:07 114 H 12/30/23 22:07 36.8 C 112 H 19 149/91 H 99 12/30/23 20:42 36.8 C 127 H 20 105/67 98 O2 Del Method 12/31/23 08:10 12/31/23 07:38 Room Air 12/31/23 07:00 Room Air 12/31/23 05:30 Room Air 12/31/23 04:25 Room Air 12/31/23 02:28 12/31/23 01:40 Room Air 12/31/23 00:10 12/31/23 00:00 12/31/23 00:00 12/30/23 23:50 12/30/23 23:40 12/30/23 23:30 12/30/23 23:30 12/30/23 23:23 12/30/23 23:10 12/30/23 23:09 12/30/23 22:50 12/30/23 22:40 12/30/23 22:30 12/30/23 22:30 12/30/23 22:20 12/30/23 22:10 12/30/23 22:08 12/30/23 22:08 12/30/23 22:07 12/30/23 22:07 12/30/23 22:07 Room Air 12/30/23 20:42 Room Air PG Care Time/CCT Total # of Minutes Spent Total Time Spent with Patient: Total time spent is greater than 50% in coordination of care (as documented) at patient's floor/unit and/or counseling patient: Coding Level of Care Code 85852 INT INP/OBS CARE 2/55MIN Diagnoses Hydronephrosis concurrent with and due to calculi of kidney and ureter N13.2 YASIR (acute kidney injury) N17.9 CKD (chronic kidney disease) stage 4, GFR 15-29 ml/min N18.4
[2023-12-31 08:19] LABS: BUN Creatinine Ratio 10.3 (10-20); Calcium 8.4 mg/dl (8.6-10.3); Creatinine Clr Calc Pharmacy 6.3 ml/min; Est GFR (African American) 4.9 ml/min; Est GFR (Non-African American) 4.2 ml/min; Potassium 3.9 mmol/L (3.5-5.1)
[2023-12-31 08:23] LABS: Base Excess VBG -22.9 mEq/L; HCO3 VBG 7 mmol/L; Oxygen Saturation VBG 90.2 %; PCO2 VBG 25 mmHg (38-50); PO2 VBG 65 mmHg; pH VBG 7.03 (7.36-7.41)
[2023-12-31] MEDS: CALCITRIOL 0.25 MCG CAPSULE PO SCH (09:29)
[2023-12-31] MEDS: ATORVASTATIN 40 MG TAB PO SCH (09:29)
[2023-12-31] MEDS: METOPROLOL SUCC 25MG EXT REL TAB PO SCH (09:29)
[2023-12-31] MEDS: MULTIVITAMIN TAB PO SCH (09:29)
[2023-12-31] MEDS: FLUoxetine HCL 20 MG CAP PO SCH (09:30)
[2023-12-31] MEDS: LANTUS PER UNIT CHARGE SQ SCH (09:31)
[2023-12-31] MEDS: oxyCODONE HCL IR 5 MG TAB (IMMEDIATE RELEASE) PO PRN (10:41)
--- NOTE | 2023-12-31 11:24 | Nephrology Consultation ---
Date of Consultation December 31, 2023 Assessment & Plan (1) YASIR (acute kidney injury): patient baseline creatinine is about 2.7-3.2 and has had CKD 4 for many years. etiology of current YASIR is severe volume depletion from diarrhea for the last 3 weeks but can not rule out significant obstructive uropathy component. I discussed the case with Urology and the plan is to proceed with ureteric stent placement in the right side this will at least take out the obstructive component. but we will still continue with aggressive fluid and electrolyte resuscitation. at this time creatinine is 11. This is associated with very low serum bicarb of 7 but despite that potassium still on the low end of normal. such picture can happen with severe diarrhea with significant GI loss of bicarb and potassium. he needs to be on a bicarb drip with some potassium supplement. cancel Ringer lactate and will do D5 with 150 mEq of sodium bicarb at 100 mL/hour. given that patient already had advanced CKD with a baseline creatinine of around 3 there is no guarantee that the kidney function will actually improve. severe prolonged volume depletion with diarrhea can cause ATN. we will hydrate aggressively for the time being and watch input output. next 24-48 hours will determine which direction we will go. patient is agreeable to dialysis if such need arise. (2) CKD (chronic kidney disease) stage 4, GFR 15-29 ml/min: baseline CKD 4 with a creatinine anywhere from 2.7-3.2. In fact even when he was in [place] he was closely followed at [facility]. he had ESRD options class while they are and in the past has indicated he will do peritoneal dialysis if such need arise. he also claims he is on transplant list at [facility]. (3) Hydronephrosis concurrent with and due to calculi of kidney and ureter: discuss with Urology. The plan is to proceed with ureteric stent in the right side. Plan Case complexity very high. Discussed the case and the plan with Urology and reviewed Urology note and also discussed with primary team. extensively reviewed outpatient charts. time spent 1 hour 10 minute. History of Present Illness Reason for Consultation: YASIR on CKD 4 Attending Physician: Laura Menjivar MD History of Present Illness 68-year-old male with known CKD 4 with baseline creatinine anywhere from 2.7- 3.2. I have seen him in my CKD Clinic. His last outpatient visit with Nephrology was July 2023 and that time creatinine was 2.7. his other medical problems includes chronic systolic heart failure (EF 45%, TTE 2022), CAD status post stent (2017), chronic LBBB, hypertension, hyperlipidemia, HIV on Rx for many years but in remission in his last clinic visit with Infectious Disease was in November 2023, DM2 insulin requiring, history of recurrent pancreatitis in the past, history of kidney stones in the past, history colonic polyps/internal hemorrhoids, anal HGSIL as per records, urolithiasis, mood disorder, past tobacco and alcohol abuse. his last admission at [facility] was on October 2022 for syncope attributed to dehydration from hyperglycemia. He presented to the hospital last night because of 3 weeks history of abdominal pain associated with severe diarrhea 6-8 times per day and very poor oral intake of both food and water. he claims he was still taking all of his medications as prescribed. there was also some bloody stool. No chest pain, no SOB. Not sure about sick contacts. No recent antibiotic Rx/out-of-town travel/new restaurants. Denies OTC NSAID intake. but he was taking Tylenol in the midst of all this he also experienced flank pain similar to kidney stone attacks. Stone passage noted at home. labs done in the emergency department was very abnormal for severe acute kidney injury on background CKD 4. Current creatinine is 11 and bicarb is very low at 7. He got 2 L of normal saline and is currently getting Ringer lactate at 75 mL/hour. CT abdomen shows some right-sided hydronephrosis with kidney stone. Urology has already seen the patient and is planning to do right-sided ureteric stent later today. review of systems----- as detailed in HPI. unless stated otherwise 12 systems reviewed and negative. physical examination elderly white male who feels sick and appears ill at this time. no respiratory distress. vital signs reviewed in detail and has a blood pressure of 96/45 mucous membrane is dry neck is supple no JVD chest bilateral clear to auscultation CVS S1 and S2 regular no murmur heard abdomen is diffusely mildly tender extremities shows no edema at all skin no rash. Allergies Allergy/AdvReac Type Severity Reaction Status Date / Time No Known Allergies Allergy Unverified 12/30/23 23:49 Home Medications Medication Instructions Recorded Confirmed Type atorvastatin 40 mg tablet 40 mg PO QAM 01/06/22 12/30/23 History dolutegravir 50 mg-rilpivirine 25 1 tab PO QAM 01/06/22 12/30/23 History mg tablet (Juluca) fluoxetine 20 mg capsule 20 mg PO QAM 01/06/22 12/30/23 History insulin aspart U-100 100 unit/mL 10 unit subcut TIDM 01/06/22 12/30/23 History (3 mL) subcutaneous pen (Novolog FlexPen U-100 Insulin aspart) multivitamin 1 tab PO QAM 01/06/22 12/30/23 History omega 2-owq-mlu-fish oil 1,000 mg 1 cap PO QAM 01/06/22 12/30/23 History (120 mg-180 mg) capsule (Fish Oil) prasugrel 10 mg tablet 10 mg PO QAM 01/06/22 12/30/23 History calcitriol 0.5 mcg capsule 0.5 mcg PO QAM 10/31/22 12/30/23 History insulin glargine 100 unit/mL (3 22 unit subcut QA 02/10/23 12/30/23 History mL) subcutaneous pen (Basaglar KwikPen U-100 Insulin) aspirin 81 mg tablet,delayed 81 mg PO DAILY 12/30/23 12/30/23 History release cholecalciferol (vitamin D3) 25 25 mcg PO QAM 12/30/23 12/30/23 History mcg (1,000 unit) capsule (Vitamin D3) coenzyme Q10 10 mg capsule (Co 10 mg PO DAILY 12/30/23 12/30/23 History Q-10) metoprolol succinate 25 mg 25 mg PO QAM 12/30/23 12/30/23 History tablet,extended release 24 hr Patient History Medical History History of kidney stones Osteoarthritis Chronic lower back pain History of pancreatitis DM type 2 (diabetes mellitus, type 2) History of skin cancer [place] (hard of hearing) HLD (hyperlipidemia) History of myocardial infarction 2016 & 2019 Sleep apnea no device Diverticulosis GERD (gastroesophageal reflux disease) IBS (irritable bowel syndrome) Precancerous lesion rectal CAD (coronary artery disease) Per patient, stenting x 5 in 2016 and restenting of 1 vessel performed in July 2020 Depression CKD (chronic kidney disease), stage IV follows with [facility] [place] Nephrology HIV (human immunodeficiency virus infection) Surgical History S/P ureteral stent placement History of removal of ureteral stent History of cystoscopy History of colonoscopy History of cholecystectomy History of cardiac catheterization 2016 stents 2019 -- restenting x 1. [facility] No pertinent past surgical history Family History Mother Heart disease Social History Smoking Status: Former smoker Tobacco Type: Cigarettes Second Hand Exposure: No; Do You Dip or Chew Tobacco: No; Tobacco Cessation Education Requested by Patient: No Hx Alcohol Use: Yes Alcohol type: beer, wine and hard liquor Alcohol Intake Frequency: Monthly or Less Hx Substance Use: No Preferred Language: Panamanian Communication Ability: Effective Special Inspector Required: No Beliefs That Will Affect Care: None Current Living Situation: Alone Other Information That Helps Us Care for You: No Feels Safe at Home: Yes Safety Concerns: Feels Safe At This Time Assistive Devices: None Results & Data Vital Signs (Past 12 Hours) Vital Signs Pulse Pulse Resp BP BP Pulse Ox O2 Del Method 12/31/23 08:10 85 12/31/23 07:38 84 16 105/56 L 96 Room Air 12/31/23 07:00 72 18 70/52 L 98 Room Air 12/31/23 05:30 86 15 116/75 95 Room Air 12/31/23 04:25 85 16 116/75 98 Room Air 12/31/23 02:28 100 H 12/31/23 01:40 57 L 18 133/81 95 Room Air 12/31/23 00:10 113 H 18 97 12/31/23 00:00 133/79 12/31/23 00:00 112 H 26 H 93 12/30/23 23:50 109 H 15 98 12/30/23 23:40 115 H 32 H 91 12/30/23 23:30 136/80 12/30/23 23:30 110 H 20 98 12/30/23 23:23 93 Laboratory Results reviewed in detail Diagnostic Findings CT abdomen reviewed--- right-sided hydronephrosis as well as possible enteritis.
[2023-12-31] MEDS: SODIUM BICARBONATE 8.4% 150 MEQ in WATER, STERILE 1,000 ML IV SCH (12:00)
[2023-12-31] MEDS: POTASSIUM CHLORIDE / WTR 10 MEQ/100 ML PLCT IV SCH (12:03)
[2023-12-31] MEDS: POTASSIUM CHLORIDE CRTAB 20 MEQ TABCR PO STA (12:03)
[2023-12-31] MEDS: SODIUM CHLORIDE 0.9% 1,000 ML IV SCH (13:30)
--- NOTE | 2023-12-31 13:30 | Anesthesiology Consultation ---
Date of Service December 31, 2023 Assessment & Plan Chart Review Chart Review: Acceptable Risk for Surgery and Patient NOT seen in Pre Admission Testing Consults Requested none ASA [id number] Proposed Anesthesia Anesthesia Type: MAC Risk / Benefits Reviewed With: PT / POA / Parent / Guardian and Informed Consent Obtained History Surgery Operation Date: 12/31/23 09:10 Proposed Procedures p Cystoscopy, Right Retrograde Pyelogram, Stent Placement, Possible Ureteroscopy, Laser Lithotripy - Christopher Gomez, DO Height/Weight Height: 5 ft 9 in Weight: 80.7 kg Allergies Allergy/AdvReac Type Severity Reaction Status Date / Time No Known Allergies Allergy Unverified 12/30/23 23:49 Medications Home Medications Medication Instructions Recorded Confirmed Last Taken atorvastatin 40 mg tablet 40 mg PO QAM 01/06/22 12/30/23 12/29/23 dolutegravir 50 mg-rilpivirine 25 1 tab PO QAM 01/06/22 12/30/23 12/29/23 mg tablet (Juluca) fluoxetine 20 mg capsule 20 mg PO QAM 01/06/22 12/30/23 12/29/23 insulin aspart U-100 100 unit/mL 10 unit subcut TIDM 01/06/22 12/30/23 12/29/23 (3 mL) subcutaneous pen (Novolog FlexPen U-100 Insulin aspart) multivitamin 1 tab PO QAM 01/06/22 12/30/23 12/29/23 omega 5-qhf-ewn-fish oil 1,000 mg 1 cap PO QAM 01/06/22 12/30/23 12/29/23 (120 mg-180 mg) capsule (Fish Oil) prasugrel 10 mg tablet 10 mg PO QAM 01/06/22 12/30/23 12/29/23 calcitriol 0.5 mcg capsule 0.5 mcg PO QAM 10/31/22 12/30/23 12/29/23 insulin glargine 100 unit/mL (3 22 unit subcut QAM 02/10/23 12/30/23 12/29/23 mL) subcutaneous pen (Basaglar KwikPen U-100 Insulin) aspirin 81 mg tablet,delayed 81 mg PO DAILY 12/30/23 12/30/23 12/29/23 release cholecalciferol (vitamin D3) 25 25 mcg PO QAM 12/30/23 12/30/23 12/29/23 mcg (1,000 unit) capsule (Vitamin D3) coenzyme Q10 10 mg capsule (Co 10 mg PO DAILY 12/30/23 12/30/23 12/29/23 Q-10) metoprolol succinate 25 mg 25 mg PO QAM 12/30/23 12/30/23 12/29/23 tablet,extended release 24 hr Active Medications Generic Name Dose Route Start Last Admin Trade Name Woodrow PRN Reason Stop Dose Admin Atorvastatin Calcium 40 mg 12/31/23 09:00 12/31/23 09:29 Atorvastatin 40 Mg Tab PO 01/30/24 08:59 40 mg QAM MOSHE Administration Calcitriol 0.5 mcg 12/31/23 09:00 12/31/23 09:29 Calcitriol 0.25 Mcg Capsule PO 01/30/24 08:59 0.5 mcg QAM MOSHE Administration Fluoxetine HCl 20 mg 12/31/23 09:00 12/31/23 09:30 Fluoxetine Hcl 20 Mg Cap PO 01/30/24 08:59 20 mg QAM MOSHE Administration Sodium Bicarbonate 150 meq/ 1,150 mls @ 100 mls/hr 12/31/23 11:45 12/31/23 12:00 Sterile Water IV 01/30/24 11:44 100 mls/hr .[id number] MOSHE Administration Potassium Chloride 10 meq in 100 mls @ 100 mls/hr 12/31/23 11:45 12/31/23 13:13 K Onofre / Wtr IV 12/31/23 13:44 100 mls/hr Q1H MOSHE Administration Insulin Aspart 0 units 12/31/23 04:25 12/31/23 13:09 Insulin Aspart Per Unit Charge SC 01/30/24 04:24 Not Given ACHS MOSHE Insulin Glargine 5 units 12/31/23 09:00 12/31/23 09:31 Lantus Per Unit Charge SQ 01/30/24 08:59 Not Given DAILY MOSHE Metoprolol Succinate 25 mg 12/31/23 09:00 12/31/23 09:29 Metoprolol Succ 25mg Ext Rel Tab PO 01/30/24 08:59 25 mg QAM MOSHE Administration Multivitamins 1 tab 12/31/23 09:00 12/31/23 09:29 Multivitamin Tab PO 01/30/24 08:59 1 tab QAM MOSHE Administration Oxycodone HCl 5 mg 12/31/23 03:02 12/31/23 10:41 Oxycodone Hcl Ir 5 Mg Tab (Immediate Release) PO 01/14/24 03:01 5 mg Q4H PRN Administration Pain Past Medical History Medical History History of kidney stones Osteoarthritis Chronic lower back pain History of pancreatitis DM type 2 (diabetes mellitus, type 2) History of skin cancer [place] (hard of hearing) HLD (hyperlipidemia) History of myocardial infarction 2016 & 2019 Sleep apnea no device Diverticulosis GERD (gastroesophageal reflux disease) IBS (irritable bowel syndrome) Precancerous lesion rectal CAD (coronary artery disease) Per patient, stenting x 5 in 2016 and restenting of 1 vessel performed in July 2020 Depression CKD (chronic kidney disease), stage IV follows with [facility] Nephrology HIV (human immunodeficiency virus infection) Past Family History Family History Mother Heart disease Past Surgical History Surgical History S/P ureteral stent placement History of removal of ureteral stent History of cystoscopy History of colonoscopy History of cholecystectomy History of cardiac catheterization 2016 - 5 stents 2019 -- restenting x 1. [facility] No pertinent past surgical history Social History Smoking Status: Former smoker tobacco type: cigarettes Do You Dip or Chew Tobacco: No Hx Alcohol Use: Yes Alcohol type: beer, wine and hard liquor alcohol intake frequency: holidays/special occasions only Hx Substance Use: No substance use type: does not use Physical Exam Vital Signs Last Vital Signs Temp 36.4 C L 12/31/23 13:21 Pulse 75 12/31/23 13:21 Resp 22 12/31/23 13:21 BP 100/59 L 12/31/23 13:21 Pulse Ox 97 12/31/23 13:21 O2 Del Method Room Air 12/31/23 13:21 Testing Laboratory Results 12/31/23 07:25 12/31/23 07:25 APTT 38 Seconds (21-31) H 12/30/23 21:07 Hemoglobin A1c 8.8 % (4.5-5.6) H 12/31/23 00:18 Urine Color Yellow 12/30/23 21:10 Urine Appearance Cloudy (Clear) A 12/30/23 21:10 Urine pH 5.0 (4.5-7.5) 12/30/23 21:10 Ur Specific [place] 1.011 (1.000-1.030) 12/30/23 21:10 Urine Protein 1+ (Negative) H 12/30/23 21:10 Urine Glucose (UA) 1+ (Negative) H 12/30/23 21:10 Urine Ketones Negative (Negative) 12/30/23 21:10 Urine Nitrite Negative (Negative) 12/30/23 21:10 Ur Leukocyte Esterase Negative (Negative) 12/30/23 21:10 Urine WBC (Auto) 0-5 /hpf (0-5) 12/30/23 21:10 Urine RBC (Auto) 0-2 /hpf (0-2) 12/30/23 21:10 U Hyaline Cast (Auto) 3-5 /lpf (0-2) H 12/30/23 21:10 U Epithel Cells (Auto) 0-2 /hpf (0-2) 12/30/23 21:10 Urine Bacteria (Auto) None Seen (None Seen) 12/30/23 21:10 Blood Type A Positive 12/31/23 00:18 Antibody Screen NEGATIVE 12/31/23 00:18 12/31/23 12/31/23 11:19 05:36 POC Glucose 124 H 130 H
[2023-12-31] MEDS ORDERED: LIDOCAINE 2% 2 ML VIAL/AMP(20MG/ML) INFIL ONE (13:50)
[2023-12-31] MEDS ORDERED: PROPOFOL IV EMULSION 10 MG/ML 20 ML VIAL IV ONE (13:50)
[2023-12-31] MEDS ORDERED: fentaNYL citrate PF 100 MCG/2 ML VIAL ONE (13:51)
[2023-12-31] MEDS ORDERED: MIDAZOLAM HCL 1 MG/ML 2ML VIAL ONE (13:51)
[2023-12-31] MEDS ORDERED: KETAMINE HCL INJ 50 MG/ML 10 ML VIAL ONE (13:55)
[2023-12-31] MEDS ORDERED: ONDANSETRON INJ 2 MG/ML 2 ML VIAL IV PRN (13:56)
[2023-12-31] MEDS ORDERED: ATROPINE SULFATE 0.1 MG/ML 10ML SYR IV PRN (13:56)
[2023-12-31] MEDS ORDERED: fentaNYL citrate PF 100 MCG/2 ML VIAL IV PRN (13:56)
[2023-12-31] MEDS ORDERED: ePHEDrine sulfate 50 MG/ML AMP IV PRN (13:56)
[2023-12-31 14:37] LABS: Adenovirus F 40/41 PCR Not Detected (NotDetected); Astrovirus PCR Not Detected (NotDetected); Campylobacter PCR Not Detected (NotDetected); Cryptosporidium PCR Not Detected (NotDetected); Cyclospora cayetanensis PCR Not Detected (NotDetected); Entamoeba histolytica PCR Not Detected (NotDetected); Enteroaggregative E.coli(EAEC) Not Detected (NotDetected); Enteropathogenic E.coli (EPEC) Not Detected (NotDetected); Enterotoxigenic E.coli (ETEC) Not Detected (NotDetected); Giardia lamblia PCR Not Detected (NotDetected); Norovirus GI/GII PCR Not Detected (NotDetected); Plesiomonas shigelloides PCR Not Detected (NotDetected); Rotavirus A PCR Not Detected (NotDetected); Salmonella PCR Not Detected (NotDetected); Sapovirus PCR Not Detected (NotDetected); Shiga-like Toxin E.coli (STEC) Not Detected (NotDetected); Shigella/Enteroinvasive E.coli Not Detected (NotDetected); Vibrio cholerae PCR Not Detected (NotDetected); Vibrio species PCR Not Detected (NotDetected); Yersinia enterocolitica PCR Not Detected (NotDetected)
--- NOTE | 2023-12-31 14:44 | Operative Report ---
PG Post Operative Report Pre & Post Diagnosis Preop: Hydronephrosis, acute renal failure, stone Postop: Same Operation Date: 12/31/23 09:10 <No data on this case meets the specified criteria> I identified the patient and participated in the time-out.: Yes Procedure Cystoscopy with extraction/destruction of bladder stone and right retrograde pyelogram with stent placement. Operation Date: 12/31/23 09:10 <No data on this case meets the specified criteria> Surgeon Christopher Gomez, II, DO Senior Mechanical Development Engineer None Estimated Blood Loss 1 Findings Consistent with Post-Op Diagnosis Patient with scant urine, severely inflamed bladder lining with significant inflammation around the UO on the right. Possible atrophic left kidney. Stone discovered in the trigone near the UO. Had a green coloration and geometric very flat appearance. Stone was able to be destroyed and grasped and removed without major issue. Severe excoriation/rash of the groin region. Injury/infection of the digits of the lower extremity on the left. Specimens Stone for analysis Drains 6 [place] multilength on the right. 20 [place] coud catheter. Anesthesia Type General Complications none Disposition Disposition: Recovery Room Indications Patient with acute renal failure and multiple acute illness with signs of hydronephrosis and obstruction and minimal urine production. Concern for possible obstructing stone within a solitary kidney. Left kidney appears to be significantly atrophic with significant hydronephrosis coming from the right. Stone possibly within the bladder. Risks and benefits discussed at length. Description of Procedure Patient was consented and brought back to the operating room. Patient was placed under anesthesia in the supine position and moved to the dorsal lithotomy position. Patient was prepped and draped in the regular sterile fashion. A time out was completed. A 30degree Cystoscope was placed into the bladder and the entire bladder was ex amined. The UO's were identified. The base of the bladder had significant inflammation especially around the right UO. Near the right UO a stone was discovered. It was irregularly shaped with a somewhat cubic appearance and a brown/green coloration. There was considerable inflammation throughout the base of the bladder especially near the right UO. Minimal urine was noted within the bladder. The stone was able to be destroyed and grasped and the pieces were able to be removed without major issue. These were sent for analysis. The UO was cannulized with a catheter and a retrograde pyelogram was completed. A wire was then placed. No obstructions or other areas of concern were noted. With the wire in place, a 6 Fr Double J stent was placed. It was confirmed with fluoroscopy. With the stent in place, the bladder was emptied. The scope was removed. A 20 [place] coud catheter was then placed. The patient was cleaned, aroused from anesthesia, and transferred to the pacu in stable condition having tolerated the procedure well with no complications. I was present and participated in all aspects of the procedure. The patient will be monitored in the PACU until transferred. Patient has significant metabolic acidosis with electrolyte abnormalities with acute renal failure and possible solitary kidney with recent obstruction. Creatinine is still severely elevated we will plan to maintain catheter and stent in position with monitoring. Will await analysis of the stone. Will plan for possible stent removal after patient has improved/resolved his ongoing issues. I attest to the content of the Intraoperative Record and any orders documented therein. Any exceptions are noted below.
--- NOTE | 2023-12-31 15:03 | Fluoroscopy Report ---
FL retrograde includes kub CLINICAL HISTORY: RIGHT STENTright-sided cystourethrogram COMPARISON STUDY: CT 12/30/2023 FLUOROSCOPY TIME: 22.2 seconds FLUOROSCOPY IMAGES: 4 EXPOSURE DOSE: 8.51 mGy FINDINGS: Right-sided cystourethrogram with stent placement which appears in satisfactory position wi th proximal portion within the superior pole right kidney. 8 urinary bladder catheter is in place. Ch olecystectomy clips incidentally noted. IMPRESSION: Fluoroscopic assistance as above. ACT 112: Negative or not required by law. Electronically signed by: Philip Jacobson M.D. 12/31/2023 3:01 PM
--- NOTE | 2023-12-31 15:05 | Communication Note ---
Date of Service: December 31, 2023 Originally seen while down in the ED. Stated that he was not feeling well and has not been for some time. s/p stent placement by urology today 12/30, stone removal as well. groin rash- Desenex powder ordered Diarrhea- c diff and stool cultures negative. PRN loperamide LLE toe wounds/injury- xray ordered, podiatry consulted. Please see History and Physical from same date of service for additional information.
--- NOTE | 2023-12-31 15:34 | Anesthesiology Progress Note ---
Date of Service December 31, 2023 Anesthesia Post Procedure Vital Signs Vital Signs: Temp Pulse Pulse Pulse Resp BP BP 12/31/23 15:25 78 18 110/71 12/31/23 15:15 79 15 109/56 L 12/31/23 15:05 78 15 109/65 12/31/23 14:55 80 17 104/62 12/31/23 14:47 36 C L 81 18 99/58 L 12/31/23 13:55 12/31/23 13:21 36.4 C L 75 22 12/31/23 11:24 36.8 C 82 22 12/31/23 08:10 85 12/31/23 07:38 84 16 105/56 L 12/31/23 07:00 72 18 70/52 L 12/31/23 05:30 86 15 116/75 12/31/23 04:25 85 16 12/31/23 02:28 100 H 12/31/23 01:40 57 L 18 12/31/23 00:10 113 H 18 12/31/23 00:00 133/79 12/31/23 00:00 112 H 26 H 12/30/23 23:50 109 H 15 12/30/23 23:40 115 H 32 H 12/30/23 23:30 136/80 12/30/23 23:30 110 H 20 12/30/23 23:23 12/30/23 23:10 110 H 17 12/30/23 23:09 134/71 12/30/23 22:50 110 H 26 H 12/30/23 22:40 107 H 20 12/30/23 22:30 133/68 12/30/23 22:30 107 H 18 12/30/23 22:20 108 H 20 12/30/23 22:10 111 H 20 12/30/23 22:08 112 H 16 12/30/23 22:08 149/91 H 12/30/23 22:07 114 H 22 12/30/23 22:07 114 H 12/30/23 22:07 36.8 C 112 H 19 12/30/23 20:42 36.8 C 127 H 20 105/67 BP Pulse Ox O2 Del Method O2 Flow Rate 12/31/23 15:25 97 Oxymask 4 12/31/23 15:15 94 Oxymask 4 12/31/23 15:05 99 Oxymask 4 12/31/23 14:55 99 Oxymask 4 12/31/23 14:47 100 Oxymask 4 12/31/23 13:55 103/59 L 12/31/23 13:21 100/59 L 97 Room Air 12/31/23 11:24 96/45 L 98 Room Air 12/31/23 08:10 12/31/23 07:38 96 Room Air 12/31/23 07:00 98 Room Air 12/31/23 05:30 95 Room Air 12/31/23 04:25 116/75 98 Room Air 12/31/23 02:28 12/31/23 01:40 133/81 95 Room Air 12/31/23 00:10 97 12/31/23 00:00 12/31/23 00:00 93 12/30/23 23:50 98 12/30/23 23:40 91 12/30/23 23:30 12/30/23 23:30 98 12/30/23 23:23 93 12/30/23 23:10 100 12/30/23 23:09 12/30/23 22:50 12/30/23 22:40 12/30/23 22:30 12/30/23 22:30 12/30/23 22:20 99 12/30/23 22:10 98 12/30/23 22:08 97 12/30/23 22:08 12/30/23 22:07 97 12/30/23 22:07 12/30/23 22:07 149/91 H 99 Room Air 12/30/23 20:42 98 Room Air Pain Intensity Generalized: Pain Intensity: 7 Back: Pain Intensity: 8 Transfer of Care Handoff Completed per policy Notes Mental Status: alert / awake / arousable Patient Amnestic to Procedure: Yes Nausea / Vomiting: adequately controlled Pain: adequately controlled Airway Patency, RR, SpO2: stable & adequate BP & HR: stable & adequate Hydration State: stable & adequate Anesthetic Complications: no major complications apparent
--- NOTE | 2023-12-31 15:43 | Anesthesiology Progress Note ---
Date of Service December 31, 2023 Anesthesia Post Procedure Vital Signs Vital Signs: Temp Pulse Pulse Pulse Resp BP BP 12/31/23 15:25 78 18 110/71 12/31/23 15:15 79 15 109/56 L 12/31/23 15:05 78 15 109/65 12/31/23 14:55 80 17 104/62 12/31/23 14:47 96.8 F L 81 18 99/58 L 12/31/23 13:55 12/31/23 13:21 97.5 F L 75 22 12/31/23 11:24 98.2 F 82 22 12/31/23 08:10 85 12/31/23 07:38 84 16 105/56 L 12/31/23 07:00 72 18 70/52 L 12/31/23 05:30 86 15 116/75 12/31/23 04:25 85 16 12/31/23 02:28 100 H 12/31/23 01:40 57 L 18 12/31/23 00:10 113 H 18 12/31/23 00:00 133/79 12/31/23 00:00 112 H 26 H 12/30/23 23:50 109 H 15 12/30/23 23:40 115 H 32 H 12/30/23 23:30 136/80 12/30/23 23:30 110 H 20 12/30/23 23:23 12/30/23 23:10 110 H 17 12/30/23 23:09 134/71 12/30/23 22:50 110 H 26 H 12/30/23 22:40 107 H 20 12/30/23 22:30 133/68 12/30/23 22:30 107 H 18 12/30/23 22:20 108 H 20 12/30/23 22:10 111 H 20 12/30/23 22:08 112 H 16 12/30/23 22:08 149/91 H 12/30/23 22:07 114 H 22 12/30/23 22:07 114 H 12/30/23 22:07 98.2 F 112 H 19 12/30/23 20:42 98.2 F 127 H 20 105/67 BP Pulse Ox O2 Del Method O2 Flow Rate 12/31/23 15:25 97 Oxymask 4 12/31/23 15:15 94 Oxymask 4 12/31/23 15:05 99 Oxymask 4 12/31/23 14:55 99 Oxymask 4 12/31/23 14:47 100 Oxymask 4 12/31/23 13:55 103/59 L 12/31/23 13:21 100/59 L 97 Room Air 12/31/23 11:24 96/45 L 98 Room Air 12/31/23 08:10 12/31/23 07:38 96 Room Air 12/31/23 07:00 98 Room Air 12/31/23 05:30 95 Room Air 12/31/23 04:25 116/75 98 Room Air 12/31/23 02:28 12/31/23 01:40 133/81 95 Room Air 12/31/23 00:10 97 12/31/23 00:00 12/31/23 00:00 93 12/30/23 23:50 98 12/30/23 23:40 91 12/30/23 23:30 12/30/23 23:30 98 12/30/23 23:23 93 12/30/23 23:10 100 12/30/23 23:09 12/30/23 22:50 12/30/23 22:40 12/30/23 22:30 12/30/23 22:30 12/30/23 22:20 99 12/30/23 22:10 98 12/30/23 22:08 97 12/30/23 22:08 12/30/23 22:07 97 12/30/23 22:07 12/30/23 22:07 149/91 H 99 Room Air 12/30/23 20:42 98 Room Air Pain Intensity Generalized: Pain Intensity: 7 Back: Pain Intensity: 8 Transfer of Care Handoff Completed per policy Notes Mental Status: alert / awake / arousable and participated in evaluation Patient Amnestic to Procedure: Yes Nausea / Vomiting: adequately controlled Pain: adequately controlled Airway Patency, RR, SpO2: stable & adequate BP & HR: stable & adequate Hydration State: stable & adequate Anesthetic Complications: no major complications apparent and Pt Satisfied with anesthetic care
[2023-12-31] MEDS: ceFAZolin 2000MG 2,000 MG/15 ML SYR IV ONE (18:18)
[2023-12-31 19:03] LABS: Hematocrit (blood only) 41.2 % (42.0-52.0); Hemoglobin 13.5 g/dl (14.0-18.0)
[2023-12-31] MEDS: LOPERAMIDE HCL 2 MG CAP PO PRN (20:30)
[2023-12-31] MEDS: MICONAZOLE NITRATE POWDER 85 GM EXT SCH (20:31)
--- NOTE | 2023-12-31 20:33 | Communication Note ---
Date of Service: December 31, 2023 Made aware by RN of persistent hypothermia since this afternoon. TSH 7.5 Free T4 0.51 AP Hypothermia Primary hypothyroidism Initiate levothyroxine Recheck TSH outpatient next month
[2023-12-31] MEDS: ACETAMINOPHEN 1,000 MG/100 ML VIAL IV STA (21:18)
--- OUTSIDE RECORDS SUMMARY | 2023-12-31 22:19 | External Medical Summary | Summary of Care ---
Author Name Unknown Organization [facility] Address [address] [facility] [place] [address] Phone [phone] Care Team Providers Care Cold Rolling Coordinator Name Role Phone Antonio Colon MD Primary Care Provider [phone] Reason for Visit * Reason Onset Date Comments Health Maintenance 12/24/2023 Encounter Details Date Type Department Care Team (Late st Contact Info) Description 12/24/2023 Telephone Family Practice [facility] [address] [place] [address] Antonio Colon MD [address] [place] [address] Health Maintenance Allergies No known active allergiesdocumented as of this encounter (statuses as of 12/24/2023) Medications Medication Sig Dispensed Refills Start Date End Date Status Co Q 10 10 MG Oral Capsule Take by mouth 1 Caplet Dosing Unit daily . 0 Active Aspirin 81 MG Oral Capsule Take by mouth 1 Caplet Dosing Unit daily . 0 Active Multi-Day Oral Tablet Take by mouth 1 Tablet in the morning. 0 Active [place]-3 1000 MG Oral Capsule Take 1 Capsule by mouth in the morning. 0 Active FreeStyle Carlos 2 [place] Device Use as directed . Use to test BG E10.65 1 Each 0 02/13/2022 Active FreeStyle Carlos 2 Sensor Use as directed . Use one sensor every 14 days for blood sugar E10.65 1 Each 11 02/13/2022 Active Sodium Bicarbonate 650 MG Oral Tablet Take 1 Tablet by mouth in the morning. 0 08/13/2022 Active Vitamin D-3 25 MCG (1000 UT) Oral Capsule Take 1 Capsule by mouth in the morning. 0 Active Basaglar KwikPen 100 UNIT/ML Subcutaneous Solution Pen-injector (Insulin Glargine Solostar) INJECT UNDER THE SKIN 22 UNITS IN THE MORNING. 30 mL 1 04/29/2023 Active NovoLOG FlexPen 100 UNIT/ML Subcutaneous Solution Pen-injector (insulin aspart) INJECT 10 UNITS THREE TIMES A DAY WITH MEALS or as directed 15 mL 5 07/07/2023 Active FLUoxetine HCl 20 MG Oral Capsule (PROzac)Indications:S T elevation (STEMI) myocardial infarction involving left circumflex coronary artery (HCC) TAKE 1 CAPSULE BY MOUTH EVERY DAY 90 Capsule 1 09/08/2023 Active Calcitriol 0.5 MCG Oral Capsule (Rocaltrol)Indication s:CKD (chronic kidney disease) stage 4, GFR 15-29 ml/min ([facility]) TAKE 1 CAPSULE (0.5 MCG) BY MOUTH IN THE MORNING. 90 Capsule 5 09/15/2023 Active Metoprolol Succinate ER 25 MG Oral Tablet Extended Release 24 Hour (toPROL XL)Indications:Bass ry artery disease involving redding coronary artery of redding heart without angina pectoris TAKE 1 TABLET BY MOUTH EVERY DAY IN THE MORNING 90 Tablet 3 10/05/2023 Active Prasugrel HCl 10 MG Oral Tablet (Effient)Indications: Coronary artery disease involving redding coronary artery of redding heart without angina pectoris TAKE 1 TABLET BY MOUTH EVERY DAY IN THE MORNING 90 Tablet 3 10/05/2023 Active Atorvastatin Calcium 40 MG Oral Tablet (Lipitor)Indications: Dyslipidemia, goal LDL below 70 TAKE 1 TABLET BY MOUTH EVERY DAY IN THE MORNING 90 Tablet 3 10/06/2023 Active Juluca 50-25 MG Oral Tablet Take 1 Tablet by mouth daily. 90 Tablet 3 12/01/2023 Active Pen [place] 32G X 4 MM Use as directed. 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 05/07/2023 Recurrent major depressive disorder, in full rem ission 05/05/2022 Overweight (BMI 25.0-29.9) 05/02/2022 Dyslipidemia 05/02/2022 Coronary artery disease invo lving redding coronary artery of redding heart without angina pectoris 05/02/2022 Type 2 diabetes mellitus wit h hemoglobin A1c goal of less than 8.0% 05/02/2022 Kidney disease, chronic, stage IV (GFR 15-29 ml/ min) 05/02/2022 Old NH (myocardial infarction) 05/02/2022 Chronic systolic (congestive) heart failure 04/14 Left bundle branch block 05/02/2022 HTN, goal below 130/80 HIV positive documented as of this encounter (statuses as of 12/24/2023) Resolved Problems Problem Noted Date Diagnosed Date Resolved Date Chronic heart failure with p reserved ejection fraction 11/24/2022 02/04/2023 ARDS (adult respiratory distress syndrome) 06/17/2012 05/02/2022 Acute pancreatitis 06/14/2012 Acute respiratory distress 06/14/2012 0 05/02/2022 documented as of this encounter (statuses as of 12/24/2023) Immunizations Name Administration Dates Next Due COVID-19 mRNA, LNP-s, No Pre serve, 2-Dose Series (Moderna) 11/27/2020,10/24/2020 COVID-19, MRNA-LNP, 23-24, P F, 50 MCG/0.5 mL, 12 YRS AND ABOVE, IM (MODERNA-Spikevax) 08/05/2021 Covid-19, Mrna, Lnp-s, Pf, B ivalent, 30 Mcg, IM, 12 yrs and above (Patient Engagement Systems) 09/09/2022 Hepatitis B, 20+ yrs 08/25/2017 Meningococcal MCV4P Conjugat e Vaccine (Menactra) 08/04/2017,02/03/2013 Pneumococcal Conjugate Vacc, 13 Valent (Prevnar) 08/21/2018,07/23/2017 Pneumococcal Polysaccharide PPV23 (Pneumovax) 07/20/2012 Seasonal Influenza Virus Vac cine, Unspecified Formulation 06/19/2021,10/05/2019,08/21/2018 Seasonal Influenza, Quadriva lent Hd (Fluzone Hd) 08/12/2023,09/09/2022,06/19/2021 Seasonal Influenza, Split, I IV3, With Preserve, Inj 06/19/2021,05/07/2020,10/05/2019,12/23,08/21/2018 TDAP (age 10 and older)(Boostrix) 07/23/2017 documented as of this encounter Social History Tobacco Use Types Packs/Day Years Used Date Smoking Tobacco: Former Cigarettes 0.3 30 Smokeless Tobacco: Never Alcohol Use Standard Drinks/Week Comments Yes 11.7 (1 standard drink = 0.6 oz pure alcohol) Sex and Gender Information Value Date Recorded Sex Assigned at Not on file Gender Identity Not on file Sexual Orientation Not on file Job Start Date Occupation Industry Not on file Not on file Not on file documented as of this encounter Miscellaneous Notes * Telephone Encounter - Haley Prieto LPN - 12/24/2023 12:54 PM EDT Care Gaps Comprehensive Care Outreach Last Office/Telemedicine Visit: 05/07/2023 (in office), Visit date not found (telemedicine) Next Office Visit: Visit date not found Hemoglobin AIC Results: Lab Results Component Value Date/Time HEMOGLOBIN A1C - [facility] 9.5 (H) 05/07/2023 12:16 PM HEMOGLOBIN A1C - [facility] 8.7 (H) 08/12/2022 03:09 PM BP Readings from Last 1 Encounters: 12/01/23 128/80 Reviewed Health Maintenance below: Health Maintenance Topic Date Due Diabetic Eye Exam Never done Hgb Never done Zoster Vaccines (1 of 2) Never done Hepatitis B (2 of 3 - Risk 3-dose series) 09/22/2017 Pneumococcal Vaccine: 65+ Years (3 of 3 - PPSV23 or PCV20) 10/16/2018 MENINGOCOCCAL (MENACTRA/MENVEO) (3 - Risk 2-dose series) 08/04/2022 Nephrology Referral 08/12/2023 HbA1c 11/07/2023 Diabetic Foot Exam 11/25/2023 GFR 02/10/2024 Ov scheduled Eye tele eye Labs ordered ordered will do same day Care Gap Outreach Action Taken: Spoke to patient documented in this encounter Plan of Treatment Upcoming Encounters Date Type Department Care Team (Late st Contact Info) Description 01/11/2024 7:40 AM EDT Office Visit [facility] [address] [facility] [facility] [address] L[facility]amejo [facility] [address] [facility] [address] 01/11/2024 8:20 AM EDT [address] [address] ColvinDarron sauceda [facility] [address] [facility] [address] 02/22/2024 1:30 PM EDT Office Visit Pharmacy, [facility] [address] [facility] [place] [address] [facility] [address] [place] [address] 05/23/2024 10:20 AM EDT Office Visit Nephrology, Madeline Snider [address] [place] [address] Tesfaye Morris MD [address] [place] [address] Scheduled Orders Name Type Priority Associated Diagnoses Orde r Schedule HEMOGLOBIN A1C Lab Routine DM type 2 nursing care encounter (HCC) Expected: 12/24/2023, Expires: 12/23/2024 Scheduled Procedures Name Priority Associated Diagnoses Date/Ti me COLONOSCOPY FLEXIBLE PROXIMA L DIAGNOSTIC Recall History of colonic polyps Health Maintenance Due Date Last Done Comments Diabetic Eye Exam 1971 Hgb 1971 Zoster Vaccines (1 of 2) 1972 Hepatitis B (2 of 3 - Risk 3-dose series) 09/22/2017 08/25/2017 Pneumococcal Vaccine: 65+ Years (3 of 3 - PPSV23 or PCV20) 10/16/2018 08/21/2018, 07/23/2017, 07/20/2012 MENINGOCOCCAL (MENACTRA/MENVEO) (3 - Risk 2-dose series) 08/04/2022 08/04/2017, 02/03/2013 Nephrology Referral 08/12/2023 08/12/2022 HbA1c 11/07/2023 05/07/2023, 07/16, 10/02/2020, Additional history exists Diabetic Foot Exam 11/25/2023 11/24/2022 GFR 02/10/2024 08/12/2023, 04/14, 08/12/2022, Additional history exists COLONOSCOPY-ANNUAL AGES 18-100 02/20/2024 02/19/2023, 02/19/2023 Albumin/Creatinine Ratio 05/07/2024 05/07/2023, 05/0 11/2021 PTH 08/12/2024 08/12/2023, 07/16, 05/07/2022 Phosphate 08/12/2024 08/12/2023, 07/16, 05/07/2022, Additional history exists DTaP,Tdap,and Td Vaccines (2 - Td or Tdap) 07/23/2027 07/23/2017 AAA Screening Completed 01/21/2022, 01/29/2020 Hepatitis C Screening Completed 05/07/2022 COVID-19 Vaccine Completed 09/09/2022, , 11/27/2020, Additional history exists Colonoscopy Discontinued 02/19/2023, 02/19/2023 Colorectal Cancer Screening Discontinued Influenza Vaccine (FLU shot) Completed 08/12/2023, 09/09/2022, 06/19/2021, Additional history exists Cologuard Discontinued Fecal Occult Blood Test Discontinued GARDASIL-HPV IMMUNIZATION SERIES Aged Out No longer eligible based on patient's age to complete this topic Sigmoidoscopy Discontinued documented as of this encounter Medical Devices Not on filedocumented as of this encounter Visit Diagnoses Diagnosis Diabetes mellitus screening- Primary Screening for diabetes mellitus DM type 2 nursing care encounter (HCC) Type II or unspecified type diabetes mellitus without mention of complication, not stated as uncontrolled documented in this encounter Advance Directives Latest Code Status on File Code Status Date Activated Date Inactivated Comments Full Code 06/14/2012 6:26 PM 06/17/2012 7:43 PM This order reflects the patients wishes and were consensually agreed upon. Care Teams Cold Rolling Coordinator Relationship Specialty Start Date End Date Antonio Colon MD [address] [place] [address] PCP - General Family Medicine 02/12/22 documented as of this encounter
--- OUTSIDE RECORDS SUMMARY | 2023-12-31 22:19 | External Medical Summary | Summary of Care ---
Author Name Unknown Organization [facility] Address [address] [place] [address] Phone [phone] Care Team Providers Care Turn Down Attendant Name Role Phone Antonio Colon MD Primary Care Provider [phone] Reason for Visit * Reason Onset Date Comments case management 11/03/2023 Annual Assessmen t/Eligibility Encounter Details Date Type Department Care Team (Late st Contact Info) Description 11/03/2023 Telephone Infectious Disease, [place] [address] [place] [address] Savita Lindsay BS case management (Annual Assessment/Eligibi... Allergies No known active allergiesdocumented as of this encounter (statuses as of 12/08/2023) Medications Medication Sig Dispensed Refills Start Date End Date Status Co Q 10 10 MG Oral Capsule Take by mouth 1 Caplet Dosing Unit daily . 0 Active Aspirin 81 MG Oral Capsule Take by mouth 1 Caplet Dosing Unit daily . 0 Active Multi-Day Oral Tablet Take by mouth 1 Tablet in the morning. 0 Active [place]-3 1000 MG Oral Capsule Take 1 Capsule by mouth in the morning. 0 Active FreeStyle Carlos 2 [place] Device Use as directed . Use to [...] Active FLUoxetine HCl 20 MG Oral Capsule (PROzac)Indication s:ST elevation (STEMI) myocardial infarction involving left circumflex coronary artery (HCC) TAKE 1 CAPSULE BY MOUTH EVERY DAY 90 Capsule 1 09/08/2023 Active Calcitriol 0.5 MCG Oral Capsule (Rocaltrol)Indicat ions:CKD (chronic kidney disease) stage 4, GFR 15-29 ml/min (HCC) TAKE 1 CAPSULE (0.5 MCG) BY MOUTH IN THE MORNING. 90 Capsule 5 09/15/2023 Active Metoprolol Succinate ER 25 MG Oral Tablet Extended Release 24 Hour (toPROL XL)Indications:Cor onary artery disease involving tunica-biloxi coronary artery of tunica-biloxi heart without angina pectoris TAKE 1 TABLET BY MOUTH EVERY DAY IN THE MORNING 90 Tablet 3 10/05/2023 Active Prasugrel HCl 10 MG Oral Tablet (Effient)Indicatio ns:Coronary artery disease involving tunica-biloxi coronary artery of tunica-biloxi heart without angina pectoris TAKE 1 TABLET BY MOUTH EVERY DAY IN THE MORNING 90 Tablet 3 10/05/2023 Active Atorvastatin Calcium 40 MG Oral Tablet (Lipitor)Indicatio ns:Dyslipidemia, goal LDL below 70 TAKE 1 TABLET BY MOUTH EVERY DAY IN THE MORNING 90 Tablet 3 10/06/2023 Active Pen [place] 32G X 4 MM Use as directed . 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 05/07/2023 Recurrent major depressive disorder, in full rem ission 05/05/2022 Overweight (BMI 25.0-29.9) 05/02/2022 Dyslipidemia 05/02/2022 Coronary artery disease invo lving tunica-biloxi coronary artery of tunica-biloxi heart without angina pectoris 05/02/2022 Type 2 diabetes mellitus wit h hemoglobin A1c goal of less than 8.0% 05/02/2022 Kidney disease, chronic, stage IV (GFR 15-29 ml/ min) 05/02/2022 Old [place] (myocardial infarction) 05/02/2022 Chronic systolic (congestive) heart failure 04/14 Left bundle branch block 05/02/2022 HTN, goal below 130/80 HIV positive documented as of this encounter (statuses as of 12/08/2023) Resolved Problems Problem Noted Date Diagnosed Date Resolved Date Chronic heart failure with p reserved ejection fraction 11/24/2022 02/04/2023 ARDS (adult respiratory distress syndrome) 06/17/2012 05/02/2022 Acute pancreatitis 06/14/2012 Acute respiratory distress 06/14/2012 0 05/02/2022 documented as of this encounter (statuses as of 12/08/2023) Immunizations Name Administration Dates Next Due COVID-19 mRNA, LNP-s, No Pre serve, 2-Dose Series (Moderna) 11/27/2020,10/24/2020 COVID-19, MRNA-LNP, 23-24, P F, 50 MCG/0.5 mL, 12 YRS AND ABOVE, IM (MODERNA-Spikevax) 08/05/2021 Covid-19, Mrna, Lnp-s, Pf, B ivalent, 30 Mcg, IM, 12 yrs and above ([employer] [place]) 09/09/2022 Hepatitis B, 20+ yrs 08/25/2017 Meningococcal [...] encounter Miscellaneous Notes * Telephone Encounter - Savita Lindsay BS - 12/08/2023 3:00 PM EDT Contacted Tad ([phone]) to inform him that his script was sent to the pharmacy. Patient states he is aware and plans to go pick it up soon. Also, spoke with patient about SPBP application. Patient requested forms be mailed to him instead to sign. Address confirmed. Patient was reminded whatdocuments are needed for the application as well (ID, Insurance, SSN card, and income). Letter reminding what documents are needed, along with 2 SPBP forms to sign, have been mailed to patient. Patient states he with gather this information and try to send it to CM soon. Awaiting documents. Time Spent: 15 minutes * Telephone Encounter - Savita Lindsay BS - 11/30/2023 11:42 AM EDT Contacted Tad ([phone]) to see if he's still interested in applying for SPBP. Patient states he is still interested in this. Patient states he does still have the 2 forms in his email to signfor the application. Patient was reminded what documents are needed for the application as well (ID, Insurance, SSN card, and income). Patient states he with gather this information and try to send it to soon. Awaiting documents. Patient states he also figured out the pharmacy issues. He states the [facility] is no longer providing Juluca to patients. Patient asked if medication can now be sent to [facility] on [address] in [place]. Explained to patient that will request Dr. Asencio to send script to this location and will call once script has been sent. Patient states he is running low on his medications,but wasn't 100% sure how many pills he had left. Routing to Dr. Asencio to send Acloree mayra to [facility] on [address] in [place]. CM to reach out to patient once script is sent. Patient states he is aware of his appointment tomorrow with Dr. Asenico and plans to attend. Patient has no further questions or concerns at this time. Time Spent: 15 minutes * Telephone Encounter - Savita Lindsay BS - 11/16/2023 12:26 PM EST Contacted Tad ([phone]). Patient states he did receive the SPBP documents to sign and will try to work on signing them. He states he did not gather his documents needed for his SPBP application. Patient states he is traveling this week, but will try to work on getting these things around soon. Awaiting on patient to sign SPBP application forms and to provide SPBP documents needed. Also, informed patient that CM still has not heard back from Dr. Colon concerning his needles that are needed and asked if patient would like CM to call. Patient states he is going to call Dr. Colon's Office today, as he is running low. Patient was encouraged to reach back out to if he would like continued assistance with this. Spoke with the fax that was received from [employer] as well, which stated "[facility] prescription service is no longer administering the mail service prescription benefit plan for this participant: therefore we must return this prescription and ask that you process it through the new provider. Your patient should have received a mailing with detailed instructions on submitting prescriptionsunder their new plan. Please contact the patient for additional information regarding the new provider". CM asked patient if he received a letter from them and what the directions are for his medications. Patient states he did receive a letter and will look for this. Patient was informed to contact when this is found, so he doesn't go without medications. Patient states he does have medications currently. Awaiting return call from patient regarding pharmacy. Explained to patient that if CM does not hear from him by then end of next week, CM will reach out to him for an update. Patient agreed with this plan. CM to contact patient on 11/24 if patient has not called by this time. Time Spent: 15 minutes * Telephone Encounter - Savita Lindsay BS - 11/10/2023 4:28 PM EST Received a fax from [employer] stating "[employer] prescription service is no longer administering the mail service prescription benefit plan for this participant: therefore we must return this prescription and ask that you process it through the new provider. Your patient should have received a mailing with detailed instructions on submitting prescriptions under their new plan. Please contact the patient for additional information regarding the new provider". Attempted to contact Tad ([phone]) regarding above fax and to check on status of SPBP documents/eligibility documents, but had to leave a voicemail requesting a return call. CM phone number provided. Awaiting return call. Dr. Barragan - please advise on previous note --- "Asked patient if he had any other questions or concerns. He states he is in need of Novolog FlexPen and Basaglar Pen. He states he is ONLY in need of the needles. Patient requested CM reach out to PCP to request the needles. Patient utilizes [facility] pharmacy in [place] on [address] for these products". Time Spent: 15 minutes * Telephone Encounter - Savita Lindsay BS - 11/04/2023 3:39 PM EST Received a call back from Tad. Spoke with patient concerning eligibility and completed annual assessment. Patient did ask about his Juluca and if it's been sent to the pharmacy. Informed him that per review, this was sent to his pharmacy on 11/03. Patient also asked to confirm when next appointment was with Dr. Asencio. Patient made aware of appointment on 11/30. INFECTIOUS DISEASE HIV CASE MANAGEMENT ANNUAL ASSESSMENT 11/04/2023 3:40 PM Brief Hx: Patient was diagnosed with HIV in 1987. Medication: Patient is prescribed Juluca which he reports compliance with. Pharmacy: Patient utilizes [facility] as pharmacy preference. Patient has not had issues withpharmacy obtaining medication. Insurance: Patient has Medicare A and B insurance. Patient reports medication being covered by insurance. He states he does have a large co-pay at the beginning of the year, around $1,000, until deductible is met. Spoke with patient regarding SPBP. Patient states he is agreeable to start application process. Patient states his annual income is around $70-$80,000. Explained to patient that the SPBP cut off is $75,300 annually for an individual. Patient made aware what documents are needed for application process. He states he will gather documents and provide to CM. Awaiting SPBP documents. Patient is also agreeable to electronically sign SPBP patient forms. Form sent. Awaiting signatures. Housing: Patient currently resides by himself in [place], [place]. Employment/Income: Patient is unemployed and receives social security and a pension. Patient estimated annual income is between $70-$80,000. Community CM: Spoke with patient regarding RWP case management and community case management services, but patient declined at this time. Patient was encouraged to reach out if he ever changes his mind. Mental Health: Spoke with patient regarding [facility] mental health therapy and psychiatry, but patient declined. Substance Abuse: Patient denies any substance issues. Legal Involvement: Patient denies any legal issues. Relationship Status/Sexual Activity: Patient did not report being in a relationship or being sexually active. Safe Sex Education: Patient is aware of safe sex education. IPV: Patient denies. Support System: Patient states his family is a support for him. Transportation: Patient does drive and has available transportation. Spoke with patient regarding [facility] transport services incase ever needed. Dental: Patient denies any dental needs. Nutrition: Spoke with patient regarding [facility] nutrition services, but patient declined at this time. Labs: Patient last had labs completed on 05/07/2023. His CD4 was 599 and his Viral Load was 77. Spoke with patient regarding RWP eligibility as well. Patient is going to attempt to gather eligibility documents and provide to CM when ready to apply for SPBP. Patient currently not part B or C eligible. Awaiting documents. Asked patient if he had any other questions or concerns. He states he is in need of Novolog FlexPenand Basaglar Pen. He states he is ONLY in need of the needles. Patient requested CM reach out to PCP to request the needles. Patient utilizes [facility] pharmacy in [place] on [address] for these products. Routing to Dr. Colon to advise on this request. Time Spent: 30 minutes * Telephone Encounter - Savita Lindsay BS - 11/03/2023 12:02 PM EST Attempted to contact Tad ([phone]) to complete an annual assessment and discuss eligibility, but had to leave a voicemail requesting a return call. CM phone number provided. Awaiting return call. Time Spent: 15 minutes documented in this encounter Plan of Treatment Upcoming Encounters Date Type Department Care Team ([facility] Contact Info) Description 02/22/2024 1:30 PM EDT Office Visit Pharmacy, [facility] [address] [place] [address] [facility] [address] [facility] [address] 05/23/2024 10:20 AM EDT Office Visit Nephrology, [facility] [address] [place] [address] Tesfaye Morris MD [address] [facility] [place] [address] Scheduled Procedures Name Priority Associated Diagnoses Date/Ti me COLONOSCOPY FLEXIBLE PROXIMA L DIAGNOSTIC Recall History of colonic polyps Health Maintenance Due Date Last Done Comments Depression Screening 1965 Diabetic Eye Exam 1971 Hgb 1971 Zoster [...] 02/20/2024 02/19/2023, 02/19/2023 Albumin/Creatinine Ratio 05/07/2024 05/07/2023, 11/2021 PTH 08/12/2024 08/12/2023, 07/16, 05/07/2022 Phosphate [...] Not on filedocumented as of this encounter Advance Directives Latest Code Status on File Code Status Date Activated Date Inactivated Comments Full Code 06/14/2012 6:26 PM 06/17/2012 7:43 PM This order reflects the patients wishes and were consensually agreed upon. Care Teams Turn Down Attendant Relationship Specialty Start Date End Date Antonio Colon MD [address] [place] [address] PCP - General Family Medicine 02/12/22 documented as of this encounter
--- OUTSIDE RECORDS SUMMARY | 2023-12-31 22:19 | External Medical Summary | Summary of Care ---
Author Name Unknown Organization [facility] Address [address] [place] [address] Phone [phone] Care Team Providers Care Manager Of Business Name Role Phone Antonio Colon MD Primary Care Provider [phone] Reason for Visit * Reason Onset Date Comments case management 11/03/2023 Annual Assessmen t/Eligibility Encounter Details Date Type Department Care Team (Late st Contact Info) Description 11/03/2023 Telephone Infectious Disease, [place] [address] [place] [address] Savita Lindsay BS case management (Annual Assessment/Eligibi... Allergies No known active allergiesdocumented as of this encounter (statuses as of 12/28/2023) Medications Medication Sig Dispensed Refills Start Date End Date Status Co Q 10 10 MG Oral Capsule Take by mouth 1 Caplet Dosing Unit daily . 0 Active Aspirin 81 MG Oral Capsule Take by mouth 1 Caplet Dosing Unit daily . 0 Active Multi-Day Oral Tablet Take by mouth 1 Tablet in the morning. 0 Active [place]-3 1000 MG Oral Capsule Take 1 Capsule by mouth in the morning. 0 Active FreeStyle Carlos 2 [place] Device Use as directed . Use to [...] Hour (toPROL XL)Indications:Cor onary artery disease involving [place] coronary artery of [place] heart without angina pectoris TAKE 1 TABLET BY MOUTH EVERY DAY IN THE MORNING 90 Tablet 3 10/05/2023 Active Prasugrel HCl 10 MG Oral Tablet (Effient)Indicatio ns:Coronary artery disease involving [place] coronary artery of [place] heart without angina pectoris TAKE 1 TABLET BY MOUTH EVERY DAY IN THE MORNING 90 Tablet 3 10/05/2023 Active Atorvastatin Calcium 40 MG Oral Tablet (Lipitor)Indicatio ns:Dyslipidemia, goal LDL below 70 TAKE 1 TABLET BY MOUTH EVERY DAY IN THE MORNING 90 Tablet 3 10/06/2023 Active Pen [place] 32G X 4 MM Use as directed . 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 05/07/2023 Recurrent major depressive disorder, in full rem ission 05/05/2022 Overweight (BMI 25.0-29.9) 05/02/2022 Dyslipidemia 05/02/2022 Coronary artery disease invo lving [place]olla coronary artery of [place] j[place] heart without angina pectoris 05/02/2022 Type 2 diabetes mellitus wit h hemoglobin A1c goal of less than 8.0% 05/02/2022 Kidney disease, chronic, stage IV (GFR 15-29 ml/ min) 05/02/2022 Old [place] (myocardial infarction) 05/02/2022 Chronic systolic (congestive) heart failure 04/14 Left bundle branch block 05/02/2022 HTN, goal below 130/80 HIV positive documented as of this encounter (statuses as of 12/28/2023) Resolved Problems Problem Noted Date Diagnosed Date Resolved Date Chronic heart failure with p reserved ejection fraction 11/24/2022 02/04/2023 ARDS (adult respiratory distress syndrome) 06/17/2012 05/02/2022 Acute pancreatitis 06/14/2012 Acute respiratory distress 06/14/2012 0 05/02/2022 documented as of this encounter (statuses as of 12/28/2023) Immunizations Name Administration Dates Next Due COVID-19 mRNA, LNP-s, No Pre serve, 2-Dose Series (Moderna) 11/27/2020,10/24/2020 COVID-19, MRNA-LNP, 23-24, P F, 50 MCG/0.5 mL, 12 YRS AND ABOVE, IM (MODERNA-Spikevax) 08/05/2021 Covid-19, Mrna, Lnp-s, Pf, B ivalent, 30 Mcg, IM, 12 yrs and above ([employer]) 09/09/2022 Hepatitis B, 20+ yrs 08/25/2017 Meningococcal [...] Telephone Encounter - Savita Lindsay BS - 12/28/2023 11:58 AM EDT Attempted to contact Tad again ([phone]) to see if he received the letter sent to him and to remind him of the documents needed for SPBP/eligibility (ID, Insurance, SSN card, income and 2 SPBP forms to sign). However, was unable to reach patient and had to leave another voicemail requestinga return call. CM phone number provided. Awaiting return call. Time Spent: 15 minutes * Telephone Encounter - Savita Lindsay BS - 12/22/2023 2:07 PM EDT Attempted to contact Tad ([phone]) to see if he received the letter sent to him and to remind him of the documents needed for SPBP/eligibility (ID, Insurance, SSN card, income and 2 SPBP forms to sign). However, was unable to reach patient and had to leave a voicemail requesting a return call. CM phone number provided. Awaiting return call. Time Spent: 15 minutes * Telephone Encounter - Savita Lindsay BS - 12/08/2023 3:00 PM EDT Contacted Tad ([phone]) to inform him that his script was [...] - 11/30/2023 11:42 AM EDT Contacted Tad ([phone]) to see if he's still interested in [...] send it to CM soon. Awaiting documents. Patient states he also figured out the pharmacy issues. He states the [facility] is no longer providing Juluca to patients. Patient asked if medication can now be sent to [facility] on [address]. Explained to patient that will request Dr. Asencio to send script to this location and will call once script has been sent. Patient states he is running low on his medications,but wasn't 100% sure how many pills he had left. Routing to Dr. Asencio to send Juluca script to [facility] on [facility] [address] [facility] in [place]. CM to reach out to patient once script is sent. Patient states he is aware of his appointment tomorrow with Dr. Asencio and plans to attend. Patient has no further questions or concerns at this time. Time Spent: 15 minutes * Telephone Encounter - Savita Lindsay BS - 11/16/2023 12:26 PM EST Contacted Tad ([phone]). Patient states he did receive the SPBP [...] was encouraged to reach back out to CM if he would like continued assistance with this. Spoke with the fax that was received from [employer] as well, which stated "[employer] prescription service is no longer administering the [...] for this. Patient was informed to contact CM when this is found, so he doesn't [...] 4:28 PM EST Received a fax from [employer] stating "[employer] prescription service is no longer administering the mail service prescription benefit plan for this participant: therefore we must return this prescription and ask that you process it through the new provider. Your patient should have received a mailing with detailed instructions on submitting prescriptions under their new plan. Please contact the patient for additional information regarding the new provider". Attempted to contact Tad ([phone]) regarding above fax and to check on [...] PCP to request the needles. Patient utilizes [facility] pharmacy in [place] on [address] for these products". Time Spent: 15 minutes [...] he reports compliance with. Pharmacy: Patient utilizes [facility] as pharmacy preference. Patient has [...] Housing: Patient currently resides by himself in [place], [place]. Employment/Income: Patient is unemployed and receives social security and a pension. Patient estimated annual income is between $70-$80,000. Community CM: Spoke with patient regarding [facility] case management and community case management services, but patient declined at this time. Patient was encouraged to reach out if he ever changes his mind. Mental Health: Spoke with patient regarding [facility] mental health therapy and psychiatry, but patient [...] dental needs. Nutrition: Spoke with patient regarding [facility] nutrition services, but patient declined at this [...] PCP to request the needles. Patient utilizes [facility] pharmacy in [place] on [address] for these products. Routing to Dr. Colon to advise on this request. Time Spent: 30 minutes * Telephone Encounter - Savita Lindsay BS - 11/03/2023 12:02 PM EST Attempted to contact Tad ([phone]) to complete an annual assessment and discuss eligibility, but had to leave a voicemail requesting a return call. CM phone number provided. Awaiting return call. Time Spent: 15 minutes documented in this encounter Plan of Treatment Upcoming Encounters Date Type Department Care Team (Late st Contact Info) Description 01/11/2024 7:40 AM EDT Office Visit Family Practice [facility] [place] [address] Lorie Camejo CRNP [address] [facility] [place] [address] 01/11/2024 8:20 AM EDT Laboratory Laboratory, [facility] [address] [facility] [place] [id number] [facility] [address] [facility] [place] [address] 02/22/2024 1:30 PM EDT Office Visit Pharmacy, [facility] [address] [facility] [place] [address] [facility] [address] [facility] [place] [address] 05/23/2024 10:20 AM EDT Office Visit Nephrology, [facility] [address] [facility] [place] [address] Tesfaye Morris MD [address] [place] [address] Scheduled Procedures Name Priority Associated Diagnoses Date/Ti [...] and were consensually agreed upon. Care Teams Manager Of Business Relationship Specialty Start Date End Date Antonio Colon MD [address] [facility] [place] [address] PCP - General Family Medicine 02/12/22 documented as of this encounter
--- OUTSIDE RECORDS SUMMARY | 2023-12-31 22:19 | External Medical Summary | Summary of Care ---
Author Name Unknown Organization [facility] Address [address] [place] [address] Phone [phone] Care Team Providers Care Leather Toggler Name Role Phone Antonio Colon MD Primary Care Provider [phone] Reason for Visit * Reason Onset Date Comments case management 11/03/2023 Annual Assessmen t/Eligibility Encounter Details Date Type Department Care Team (Late st Contact Info) Description 11/03/2023 Telephone Infectious Disease, [place] [address] [place] [address] Savita Lindsay BS case management (Annual Assessment/Eligibi... Allergies No known active allergiesdocumented as of this encounter (statuses as of 12/22/2023) Medications Medication Sig Dispensed Refills Start Date End Date Status Co Q 10 10 MG Oral Capsule Take by mouth 1 Caplet Dosing Unit daily . 0 Active Aspirin 81 MG Oral Capsule Take by mouth 1 Caplet Dosing Unit daily . 0 Active Multi-Day Oral Tablet Take by mouth 1 Tablet in the morning. 0 Active Renovo-3 1000 MG Oral Capsule Take 1 Capsule by mouth in the morning. 0 Active FreeStyle Carlos 2 [place] Device Use as directed . Use to [...] Hour (toPROL XL)Indications:Cor onary artery disease involving [place] coronary artery of [place] heart without angina pectoris TAKE 1 TABLET BY MOUTH EVERY DAY IN THE MORNING 90 Tablet 3 10/05/2023 Active Prasugrel HCl 10 MG Oral Tablet (Effient)Indicatio ns:Coronary artery disease involving [place] coronary artery of [place] heart without angina pectoris TAKE 1 TABLET BY MOUTH EVERY DAY IN THE MORNING 90 Tablet 3 10/05/2023 Active Atorvastatin Calcium 40 MG Oral Tablet (Lipitor)Indicatio ns:Dyslipidemia, goal LDL below 70 TAKE 1 TABLET BY MOUTH EVERY DAY IN THE MORNING 90 Tablet 3 10/06/2023 Active [place] 32G X 4 MM Use as directed . 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 05/07/2023 Recurrent major depressive disorder, in full rem ission 05/05/2022 Overweight (BMI 25.0-29.9) 05/02/2022 Dyslipidemia 05/02/2022 Coronary artery disease invo lving [place] coronary artery of or[place] heart without angina pectoris 05/02/2022 Type 2 diabetes mellitus wit h hemoglobin A1c goal of less than 8.0% 05/02/2022 Kidney disease, chronic, stage IV (GFR 15-29 ml/ min) 05/02/2022 Old [place] (myocardial infarction) 05/02/2022 Chronic systolic (congestive) heart failure 04/14 Left bundle branch block 05/02/2022 HTN, goal below 130/80 HIV positive documented as of this encounter (statuses as of 12/22/2023) Resolved Problems Problem Noted Date Diagnosed Date Resolved Date Chronic heart failure with p reserved ejection fraction 11/24/2022 02/04/2023 ARDS (adult respiratory distress syndrome) 06/17/2012 05/02/2022 Acute pancreatitis 06/14/2012 Acute respiratory distress 06/14/2012 0 05/02/2022 documented as of this encounter (statuses as of 12/22/2023) Immunizations Name Administration Dates Next Due COVID-19 mRNA, LNP-s, No Pre serve, 2-Dose Series (Moderna) 11/27/2020,10/24/2020 COVID-19, MRNA-LNP, 23-24, P F, 50 MCG/0.5 mL, 12 YRS AND ABOVE, IM (MODERNA-Spikevax) 08/05/2021 Covid-19, Mrna, Lnp-s, Pf, B ivalent, 30 Mcg, IM, 12 yrs and above (Plated) 09/09/2022 Hepatitis B, 20+ yrs 08/25/2017 Meningococcal [...] 2:07 PM EDT Attempted to contact Tad ([phone]) to see if he received the letter sent to him and to remind him of the documents needed for SPBP/eligibility (ID, Insurance, SSN card, income and 2 SPBP forms to sign). However, was unable to reach patient and had to leave a voicemail requesting a return call. phone number provided. Awaiting return call. Time Spent: 15 minutes * Telephone Encounter - Savita Lindsay BS - 12/08/2023 3:00 PM EDT Contacted Tad ([phone]) to inform him that his script was [...] to send it to soon. Awaiting documents. Time Spent: 15 minutes * Telephone Encounter - Savita Lindsay BS - 11/30/2023 11:42 AM EDT Contacted Tad ([phone]) to see if he's still interested in [...] out the pharmacy issues. He states the [facility] is no longer providing Juluca to patients. Patient asked if medication can now be sent to [facility] on [facility] in [place]. Explained to patient that will request Dr. Asencio to send script to this location and will call once script has been sent. Patient states he is running low on his medications,but wasn't 100% sure how many pills he had left. Routing to Dr. Asencio to send Juluca script to [facility] on [facility] in [place]. CM to reach out to patient once script is sent. Patient states he is aware of his appointment tomorrow with Dr. Asencio and plans to attend. Patient has no further questions or concerns at this time. Time Spent: 15 minutes * Telephone Encounter - Savita Lindsay BS - 11/16/2023 12:26 PM EST Contacted Tad ([phone]). Patient states he did receive the SPBP [...] SPBP documents needed. Also, informed patient that still has not heard back from Dr. Colon concerning his needles that are needed and asked if patient would like CM to call. Patient states he is going to call Dr. Colon's Office today, as he is running low. Patient was encouraged to reach back out to if he would like continued assistance with this. Spoke with the fax that was received from [facility] as well, which stated "[facility] prescription [facility] is no longer administering the [...] 4:28 PM EST Received a fax from [facility] stating "[facility] prescription [facility] is no longer administering the mail service prescription benefit plan for this participant: therefore we must return this prescription and ask that you process it through the new provider. Your patient should have received a mailing with detailed instructions on submitting prescriptions under their new plan. Please contact the patient for additional information regarding the new provider". Attempted to contact Tad ([phone]) regarding above fax and to check on [...] PCP to request the needles. Patient utilizes [facility] pharmacy in [facility] for these products". Time Spent: 15 minutes [...] he reports compliance with. Pharmacy: Patient utilizes [facility] as pharmacy preference. Patient has not [...] Housing: Patient currently resides by himself in [place], [place]. Employment/Income: Patient is unemployed and receives [...] PCP to request the needles. Patient utilizes [facility] pharmacy in [place] on [facility] for these products. Routing to Dr. Colon to advise on this request. Time Spent: 30 minutes * Telephone Encounter - Savita Lindsay BS - 11/03/2023 12:02 PM EST Attempted to contact Tad ([phone]) to complete an annual assessment and discuss eligibility, but had to leave a voicemail requesting a return call. CM phone number provided. Awaiting return call. Time Spent: 15 minutes documented in this encounter Plan of Treatment Upcoming Encounters Date Type Department Care Team (Late st Contact Info) Description 02/22/2024 1:30 PM EDT [facility] [address] [address] [facility] [address] [address] 05/23/2024 10:20 AM EDT Office Visit Nephrology, Madeline Snider [address] [place] [address] [place] [address] Tesfaye Morris MD [address] [facility] [place] [address] Scheduled Procedures Name Priority Associated Diagnoses Date/Ti [...] and were consensually agreed upon. Care Teams Leather Toggler Relationship Specialty Start Date End Date Antonio Colon MD [address] [place] [address] PCP - General Family Medicine 02/12/22 documented as of this encounter
--- OUTSIDE RECORDS SUMMARY | 2023-12-31 22:19 | External Medical Summary | Summary of Care ---
Author Name Unknown Organization [facility] Address [address] [facility] [place] [address] Phone [phone] Care Team Providers Care Nuclear Station Operator Name Role Phone Abimael Us MD Primary Care Provider [phone] Reason for Visit * Reason Onset Date Comments Medication Refill 12/02/2023 Encounter Details Date Type Department Care Team (Late st Contact Info) Description 12/02/2023 Refill Family Practice [facility] [address] [place] [address] Abimael Us MD [address] [place] [address] Allergies No known active allergiesdocumented as of this encounter (statuses as of 12/02/2023) Medications Medication Sig Dispensed Refills Start Date End Date Status Co Q 10 10 MG Oral Capsule Take by mouth 1 Caplet Dosing Unit daily . 0 Active Aspirin 81 MG Oral Capsule Take by mouth 1 Caplet Dosing Unit daily . 0 Active Multi-Day Oral Tablet Take by mouth 1 Tablet in the morning. 0 Active [place]-3 1000 MG Oral Capsule Take 1 Capsule by mouth in the morning. 0 Active FreeStyle Carlos 2 [place] Device Use as directed . Use to [...] kidney disease) stage 4, GFR 15-29 ml/min ([facility]) TAKE 1 CAPSULE (0.5 MCG) BY MOUTH IN THE MORNING. 90 Capsule 5 09/15/2023 Active Metoprolol Succinate ER 25 MG Oral Tablet Extended Release 24 Hour (toPROL XL)Indications:Cor onary artery disease involving [place] coronary artery of [place] heart without angina pectoris TAKE 1 TABLET BY MOUTH EVERY DAY IN THE MORNING 90 Tablet 3 10/05/2023 Active Prasugrel HCl 10 MG Oral Tablet (Effient)Indicatio ns:Coronary artery disease involving [place] coronary artery of [place] heart without angina pectoris TAKE 1 TABLET BY MOUTH EVERY DAY IN THE MORNING 90 Tablet 3 10/05/2023 Active Atorvastatin Calcium 40 MG Oral Tablet (Lipitor)Indicatio ns:Dyslipidemia, goal LDL below 70 TAKE 1 TABLET BY MOUTH EVERY DAY IN THE MORNING 90 Tablet 3 10/06/2023 Active Juluca 50-25 MG Oral Tablet Take 1 Tablet by mouth daily. 90 Tablet 3 12/01/2023 Active Pen [place] 32G X 4 MM Use as directed. Use to inject insulin 4 times daily E11.9 400 Each 3 12/02/2023 Active Pen [place] 32G X 4 MM Use as directed . 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 05/07/2023 Recurrent major depressive disorder, in full rem ission 05/05/2022 Overweight (BMI 25.0-29.9) 05/02/2022 Dyslipidemia 05/02/2022 Coronary artery disease invo lving [place] coronary artery of [place] heart without angina pectoris 05/02/2022 Type 2 diabetes mellitus wit h hemoglobin A1c goal of less than 8.0% 05/02/2022 Kidney disease, chronic, stage IV (GFR 15-29 ml/ min) 05/02/2022 Old [place] (myocardial infarction) 05/02/2022 Chronic systolic (congestive) heart failure 04/14 Left bundle branch block 05/02/2022 HTN, goal below 130/80 HIV positive documented as of this encounter (statuses as of 12/02/2023) Resolved Problems Problem Noted Date Diagnosed Date Resolved Date Chronic heart failure with p reserved ejection fraction 11/24/2022 02/04/2023 ARDS (adult respiratory distress syndrome) 06/17/2012 05/02/2022 Acute pancreatitis 06/14/2012 Acute respiratory distress 06/14/2012 0 05/02/2022 documented as of this encounter (statuses as of 12/02/2023) Immunizations Name Administration Dates Next Due COVID-19 mRNA, LNP-s, No Pre serve, 2-Dose Series (Moderna) 11/27/2020,10/24/2020 COVID-19, MRNA-LNP, 23-24, P F, 50 MCG/0.5 mL, 12 YRS AND ABOVE, IM (MODERNA-Spikevax) 08/05/2021 Covid-19, Mrna, Lnp-s, Pf, B ivalent, 30 Mcg, IM, 12 yrs and above ([employer]) 09/09/2022 Hepatitis B, 20+ yrs 08/25/2017 Meningococcal [...] encounter Miscellaneous Notes * Telephone Encounter - Lise Lin [facility] - 12/02/2023 12:13 PM EDT Signed Prescriptions: Disp Refills Pen [place] 32G X 4 MM 400 Ea*3 Sig: Use as directed. Use to inject insulin 4 times daily E11.9 Authorizing Provider: ABIMAEL US Ordering User: LISE LIN * Telephone Encounter - Ally Wild CPhT - 12/02/2023 11:35 AM EDT Did you pend patient's preferred pharmacy and medication before forwarding?yes Pharmacy: [id number] [address] [facility] Pending Prescriptions: Disp Refills Pen [place] 32G X 4 MM 200 Ea*5 Sig: Use as directed. Use to inject insulin 4 times daily E11.9 Last Visit: 05/07/2023 (in office), Visit date not found (telemedicine) Next Visit: Visit date not found If no future appointments scheduled, and last appointment is greater than a year ago, please schedule patient for a follow-up appointment Last date the medication was ordered: 08/20/2022 Is this request for a controlled substance?No Urine Drug Screen:No results found for this or any previous visit. Patient Phone Numbers Labs: Lab Results Component Value Date/Time CREAT 2.7 (H) 08/12/2023 02:01 PM CREAT 3.37 (H) 10/02/2020 03:48 PM CREAT 0.9 06/17/2012 06:08 AM POTASSIUM 5.2 (H) 08/12/2023 02:01 PM POTASSIUM 3.9 10/02/2020 03:48 PM POTASSIUM 3.2 (L) 06/17/2012 06:08 AM LDLCALC 46 07/20/2020 04:33 AM LDLCALC 64 06/15/2012 05:32 AM LDLDIRECT 61 05/07/2022 04:25 PM ALT 56 (H) 05/07/2023 12:16 PM ALT 66 (H) 10/02/2020 03:48 PM ALT 41 06/17/2012 06:08 AM HGBA1C 9.5 (H) 05/07/2023 12:16 PM HGBA1C 7.4 (H) 10/02/2020 03:48 PM documented in this encounter Plan of Treatment Upcoming Encounters Date Type Department Care Team (Late st Contact Info) Description 02/22/2024 1:30 PM EDT Office Visit Pharmacy, [facility] [place] [address] [address] [facility] [address] [address] 05/23/2024 10:20 AM EDT Office Visit Nephrology, Madeline Snider [address] [place] [address] Tesfaye Morris MD [address] [place] [address] Scheduled Procedures Name Priority Associated Diagnoses Date/Ti [...] and were consensually agreed upon. Care Teams Nuclear Station Operator Relationship Specialty Start Date End Date Abimael Us MD [address] [place] [address] PCP - General Family Medicine 02/12/22 documented as of this encounter
--- OUTSIDE RECORDS SUMMARY | 2023-12-31 22:19 | External Medical Summary | Summary of Care ---
Author Name Unknown Organization [facility] Address [address] [place] [address] Phone [phone] Care Team Providers Care Risk Developer Name Role Phone Antonio Colon MD Primary Care Provider [phone] Reason for Visit * Reason Onset Date Comments case management 11/03/2023 Annual Assessmen t/Eligibility Encounter Details Date Type Department Care Team (Late st Contact Info) Description 11/03/2023 Telephone Infectious Disease, [place] [address] [place] [address] Savita Lindsay BS case management (Annual Assessment/Eligibi... Allergies No known active allergiesdocumented as of this encounter (statuses as of 12/30/2023) Medications Medication Sig Dispensed Refills Start Date End Date Status Co Q 10 10 MG Oral Capsule Take by mouth 1 Caplet Dosing Unit daily . 0 Active Aspirin 81 MG Oral Capsule Take by mouth 1 Caplet Dosing Unit daily . 0 Active Multi-Day Oral Tablet Take by mouth 1 Tablet in the morning. 0 Active [place]-3 1000 MG Oral Capsule Take 1 Capsule by mouth in the morning. 0 Active FreeStyle Carlos 2 [place] Device Use as directed . Use to [...] Hour (toPROL XL)Indications:Cor onary artery disease involving sy[place] coronary artery of syc[place] heart without angina pectoris TAKE 1 TABLET BY MOUTH EVERY DAY IN THE MORNING 90 Tablet 3 10/05/2023 Active Prasugrel HCl 10 MG Oral Tablet (Effient)Indicatio ns:Coronary artery disease involving [place] coronary artery of [place] heart without angina pectoris TAKE 1 TABLET BY MOUTH EVERY DAY IN THE MORNING 90 Tablet 3 10/05/2023 Active Atorvastatin Calcium 40 MG Oral Tablet (Lipitor)Indicatio ns:Dyslipidemia, goal LDL below 70 TAKE 1 TABLET BY MOUTH EVERY DAY IN THE MORNING 90 Tablet 3 10/06/2023 Active Pen [place] 32G X 4 MM Use as directed . 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 05/07/2023 Recurrent major depressive disorder, in full rem ission 05/05/2022 Overweight (BMI 25.0-29.9) 05/02/2022 Dyslipidemia 05/02/2022 Coronary artery disease invo lving [place] coronary artery of syc[place] heart without angina pectoris 05/02/2022 Type 2 diabetes mellitus wit h hemoglobin A1c goal of less than 8.0% 05/02/2022 Kidney disease, chronic, stage IV (GFR 15-29 ml/ min) 05/02/2022 Old [place] (myocardial infarction) 05/02/2022 Chronic systolic (congestive) heart failure 04/14 Left bundle branch block 05/02/2022 HTN, goal below 130/80 HIV positive documented as of this encounter (statuses as of 12/30/2023) Resolved Problems Problem Noted Date Diagnosed Date Resolved Date Chronic heart failure with p reserved ejection fraction 11/24/2022 02/04/2023 ARDS (adult respiratory distress syndrome) 06/17/2012 05/02/2022 Acute pancreatitis 06/14/2012 Acute respiratory distress 06/14/2012 0 05/02/2022 documented as of this encounter (statuses as of 12/30/2023) Immunizations Name Administration Dates Next Due COVID-19 mRNA, LNP-s, No Pre serve, 2-Dose Series (Moderna) 11/27/2020,10/24/2020 COVID-19, MRNA-LNP, 23-24, P F, 50 MCG/0.5 mL, 12 YRS AND ABOVE, IM (MODERNA-Spikevax) 08/05/2021 Covid-19, Mrna, Lnp-s, Pf, B ivalent, 30 Mcg, IM, 12 yrs and above ([employer]) 09/09/2022 Hepatitis B, 20+ yrs 08/25/2017 Meningococcal [...] Miscellaneous Notes * Telephone Encounter - Savita Lidnsay BS - 12/30/2023 11:21 AM EDT Letter sent to patient to see if he is still interested in RWP eligibility and SPBP, as we have been unable to reach patient. Patient was encouraged to contact case management either way to let us know if interested or not. Closing encounter at this time. Time Spent: 15 minutes * Telephone Encounter - Savita Lindsay BS - 12/28/2023 11:58 AM EDT Attempted to contact Tad again ([phone]) to see if he received the letter [...] 2:07 PM EDT Attempted to contact Tad ([phone]) to see if he received the letter [...] - 12/08/2023 3:00 PM EDT Contacted Tad ([phone]) to inform him that his script was [...] - 11/30/2023 11:42 AM EDT Contacted Tad ([phone]) to see if he's still interested in [...] out the pharmacy issues. He states the [facility] is no longer providing Juluca to patients. Patient asked if medication can now be sent to [facility] on [facility] in [place]. Explained to patient that CM will request Dr. Asencio to send script to this location and will call once script has been sent. Patient states he is running low on his medications,but wasn't 100% sure how many pills he had left. Routing to Dr. Asencio to send Juluca script to [facility] on [facility] in [place]. CM to reach out to patient once script is sent. Patient states he is aware of his appointment tomorrow with Dr. Asencio and plans to attend. Patient has no further questions or concerns at this time. Time Spent: 15 minutes * Telephone Encounter - Savita Lindsay BS - 11/16/2023 12:26 PM EST Contacted Tad ([phone]). Patient states he did receive the SPBP [...] with the fax that was received from [facility] as well, which stated "[facility] prescription service is no longer administering the [...] 4:28 PM EST Received a fax from [facility] stating "[facility] prescription service is no longer administering the mail service prescription benefit plan for this participant: therefore we must return this prescription and ask that you process it through the new provider. Your patient should have received a mailing with detailed instructions on submitting prescriptions under their new plan. Please contact the patient for additional information regarding the new provider". Attempted to contact Tad ([phone]) regarding above fax and to check on [...] PCP to request the needles. Patient utilizes [facility] pharmacy in [facility] for these products". Time Spent: 15 minutes [...] he reports compliance with. Pharmacy: Patient utilizes [facility] as pharmacy preference. [...] Housing: Patient currently resides by himself in [place], [place]. Employment/Income: Patient is unemployed and receives [...] the needles. Patient utilizes [facility] in [place] on [facility] for these products. Routing to Dr. Colon to advise on this request. Time Spent: 30 minutes * Telephone Encounter - Savita Lindsay BS - 11/03/2023 12:02 PM EST Attempted to contact Tad ([phone]) to complete an annual assessment and discuss eligibility, but had to leave a voicemail requesting a return call. CM phone number provided. Awaiting return call. Time Spent: 15 minutes documented in this encounter Plan of Treatment Upcoming Encounters Date Type Department Care Team (Late st Contact Info) Description 01/11/2024 7:40 AM EDT Office Visit Family Practice [facility] [address] [facility] [place] [address] Lorie Camejo CRNP [address] [facility] [place] [address] 01/11/2024 8:20 AM EDT Laboratory Laboratory, [facility] [address] [facility] [place] [id number] Darron Colvin [facility] [address] 02/22/2024 1:30 PM EDT Office Visit Pharmacy, [facility] [address] [facility] [place] [address] [facility] [facility] [address] [facility] [place] [address] 05/23/2024 10:20 AM EDT Office Visit Nephrology, Madeline Snider [address] [place] [address] Tesfaye Morris MD [address] [place] [address] Scheduled Procedures Name Priority Associated Diagnoses Date/Ti me COLONOSCOPY FLEXIBLE PROXIMA L DIAGNOSTIC Recall History of colonic polyps Health Maintenance Due Date Last Done Comments Diabetic Eye Exam 1971 Zoster Vaccines (1 of 2) 1972 [...] 02/20/2024 02/19/2023, 02/19/2023 Albumin/Creatinine Ratio 05/07/2024 05/07/2023, 0511/2021 Hgb 05/07/2024 05/07/2023, 05/15, 05/07/2022, Additional history exists PTH 08/12/2024 08/12/2023, 07/16, 05/07/2022 Phosphate 08/12/2024 [...] and were consensually agreed upon. Care Teams Risk Developer Relationship Specialty Start Date End Date Antonio Colon MD [address] [place] [address] PCP - General Family Medicine 02/12/22 documented as of this encounter
--- OUTSIDE RECORDS SUMMARY | 2023-12-31 22:20 | External Medical Summary | Summary of Care ---
Author Name Unknown Organization [facility] Address [address] [place] [address] Phone [phone] Care Team Providers Care Instrumentation Engineer Name Role Phone Antonio Colon MD Primary Care Provider [phone] Reason for Visit * Reason Onset Date Comments Test Results 08/13/2023 Encounter Details Date Type Department Care Team (Late st Contact Info) Description 08/13/2023 Telephone Nephrology, Madeline Snider [address] [facility] [place] [address] ZemaShirley virk PA-C [address] [facility] [place] [address] Test Results Allergies No known active allergiesdocumented as of this encounter (statuses as of 08/13/2023) Medications Medication Sig Dispensed Refills Start Date End Date Status Co Q 10 10 MG Oral Capsule Take by mouth 1 Caplet Dosing Unit daily . 0 Active FLUoxetine HCl 20 MG Oral Capsule Take 1 Capsule by mouth in the morning. 0 Active Aspirin 81 MG Oral Capsule Take by mouth 1 Caplet Dosing Unit daily . 0 Active Multi-Day Oral Tablet Take by mouth 1 Tablet in the morning. 0 Active [place]-3 1000 MG Oral Capsule Take 1 Capsule by mouth in the morning. 0 Active FreeStyle Carlos 2 [place] Device Use as directed . Use to test BG E10.65 1 Each 0 02/13/2022 Active FreeStyle Carlos 2 Sensor Use as directed . Use one sensor every 14 days for blood sugar E10.65 1 Each 11 02/13/2022 Active Calcitriol 0.5 MCG Oral Capsule (Rocaltrol)Indication s:CKD (chronic kidney disease) stage 4, GFR 15-29 ml/min (HCC) Take 1 Capsule (0.5 mcg) by mouth in the morning. 90 Capsule 5 08/12/2022 Active Sodium Bicarbonate 650 MG Oral Tablet Take 1 Tablet by mouth in the morning. 0 08/13/2022 Active Pen [place] 32G X 4 MM Use as directed . Use to inject insulin 4 times daily E11.9 200 Each 5 08/20/2022 Active Vitamin D-3 25 MCG (1000 UT) Oral Capsule Take 1 Capsule by mouth in the morning. 0 Active Atorvastatin Calcium 40 MG Oral Tablet (Lipitor)Indications: Dyslipidemia, goal LDL below 70 Take 1 Tablet by mouth in the morning. 90 Tablet 3 09/30/2022 Active Prasugrel HCl 10 MG Oral Tablet (Effient)Indications: Coronary artery disease involving [place] coronary artery of [place] heart without angina pectoris Take 1 Tablet by mouth in the morning. 90 Tablet 3 09/30/2022 Active Metoprolol Succinate ER 25 MG Oral Tablet Extended Release 24 Hour (Toprol XL) Take 1 Tablet by mouth in the morning. 90 Tablet 3 09/30/2022 Active Basaglar KwikPen 100 UNIT/ML Subcutaneous Solution Pen-injector (Insulin Glargine Solostar) INJECT UNDER THE SKIN 22 UNITS IN THE MORNING. 30 mL 1 04/29/2023 Active NovoLOG FlexPen 100 UNIT/ML Subcutaneous Solution Pen-injector (insulin aspart) INJECT 10 UNITS THREE TIMES A DAY WITH MEALS or as directed 15 mL 5 07/07/2023 Active Juluca 50-25 MG Oral Tablet Take 1 Tablet by mouth daily. 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 05/07/2023 Recurrent major depressive disorder, in full rem ission 05/05/2022 Overweight (BMI 25.0-29.9) 05/02/2022 Dyslipidemia 05/02/2022 Coronary artery disease invo lving [place] coronary artery of [place] heart without angina pectoris 05/02/2022 Type 2 diabetes mellitus wit h hemoglobin A1c goal of less than 8.0% 05/02/2022 Kidney disease, chronic, stage IV (GFR 15-29 ml/ min) 05/02/2022 Old [place] (myocardial infarction) 05/02/2022 Chronic systolic (congestive) heart failure 04/14 Left bundle branch block 05/02/2022 HTN, goal below 130/80 HIV positive documented as of this encounter (statuses as of 08/13/2023) Resolved Problems Problem Noted Date Diagnosed Date Resolved Date Chronic heart failure with p reserved ejection fraction 11/24/2022 02/04/2023 ARDS (adult respiratory distress syndrome) 06/17/2012 05/02/2022 Acute pancreatitis 06/14/2012 Acute respiratory distress 06/14/2012 0 05/02/2022 documented as of this encounter (statuses as of 08/13/2023) Immunizations Name Administration Dates Next Due COVID-19 mRNA, LNP-s, No Pre serve, 2-Dose Series (Moderna) 11/27/2020,10/24/2020 Hepatitis B, 20+ yrs 08/25/2017 Meningococcal MCV4P Conjugat e Vaccine (Menactra) 08/04/2017,02/03/2013 Pneumococcal Conjugate Vacc, 13 Valent (Prevnar) 08/21/2018,07/23/2017 Pneumococcal Polysaccharide PPV23 (Pneumovax) 07/20/2012 Seasonal Influenza Virus Vac cine, Unspecified Formulation 06/19/2021,10/05/2019,08/21/2018 Seasonal Influenza, Quadriva lent Hd (Fluzone Hd) 08/12/2023 Seasonal Influenza, Split, I IV3, With Preserve, [...] encounter Miscellaneous Notes * Telephone Encounter - Any Fraser RN - 08/13/2023 2:16 PM EST LMAM with call back number regarding lab results. * Telephone Encounter - Any Fraser RN - 08/13/2023 2:16 PM EST ----- Message from Shirley Roche PA-C sent at 08/13/2023 1:31 PM EST ----- Renal function stable Potassium remains elevated Please discuss caution with high potassium foods - Will try modification in diet first and repeat labs in 2 -3 wks documented in this encounter Plan of Treatment Upcoming Encounters Date Type Department Care Team (Late st Contact Info) Description 08/31/2023 6:10 PM EST Pharmacy Pharmacy, [facility] [address] [place] [address] [facility] [address] [place] [address] 05/23/2024 10:20 AM EDT Office Visit Nephrology, Madeline Snider [address] [place] [address] Tesfaye Morris MD [address] [facility] [place] [address] Scheduled Procedures Name Priority Associated Diagnoses Date/Ti me COLONOSCOPY FLEXIBLE PROXIMA L DIAGNOSTIC Recall History of colonic polyps Health Maintenance Due Date Last Done Comments Depression Screening 1965 Diabetic Eye Exam 1971 Zoster Vaccines (1 of 2) 1972 Hepatitis B (2 of 3 - Risk 3-dose series) 09/22/2017 08/25/2017 Pneumococcal Vaccine: 65+ Years (3 - PPSV23 or PCV20) 08/21/2019 08/21/2018, 07/23/2017, 07/20/2012 MENINGOCOCCAL (MENACTRA/MENVEO) (3 - Risk 2-dose series) 08/04/2022 08/04/2017, 02/03/2013 COVID-19 Vaccine (4 - season) 2023 09/09/2022, 11/27/2020, 10/24/2020 Nephrology Referral 08/12/2023 08/12/2022 HbA1c 11/07/2023 05/07/2023, 07/16, 10/02/2020, Additional history exists Diabetic Foot Exam 11/25/2023 11/24/2022 GFR 02/10/2024 08/12/2023, 04/14, 08/12/2022, Additional history exists COLONOSCOPY-ANNUAL AGES 18-100 02/20/2024 02/19/2023, 02/19/2023 Albumin/Creatinine Ratio 05/07/2024 05/07/2023, 11/2021 Hgb 05/07/2024 05/07/2023, 05/15, 05/07/2022, Additional history exists PTH 08/12/2024 08/12/2023, 07/16, 05/07/2022 Phosphate 08/12/2024 08/12/2023, 07/16, 05/07/2022, Additional history exists DTaP,Tdap,and Td Vaccines (2 - Td or Tdap) 07/23/2027 07/23/2017 AAA Screening Completed 01/21/2022, 01/29/2020 Hepatitis C Screening Completed 05/07/2022 Colonoscopy Discontinued 02/19/2023, 02/19/2023 Colorectal Cancer Screening [...] and were consensually agreed upon. Care Teams Instrumentation Engineer Relationship Specialty Start Date End Date Antonio Colon MD [address] [address] PCP - General Family Medicine 02/12/22 documented as of this encounter
--- OUTSIDE RECORDS SUMMARY | 2023-12-31 22:20 | External Medical Summary | Summary of Care ---
Author Name Unknown Organization [facility] Address [address] [place] [address] Phone [phone] Care Team Providers Care Whipper Name Role Phone Antonio Colon MD Primary Care Provider [phone] Reason for Visit * Reason Onset Date Comments case management 08/31/2023 Need for Appt Appointment 08/31/2023 Encounter Details Date Type Department Care Team (Late st Contact Info) Description 08/31/2023 Telephone Infectious Disease, [place] [address] [place] [address] Savita iLndsay BS case management (Need for Appt); Appointment Allergies No known active allergiesdocumented as of this encounter (statuses as of 09/10/2023) Medications Medication Sig Dispensed Refills Start Date End Date Status Co Q 10 10 MG Oral Capsule Take by mouth 1 Caplet Dosing Unit daily . 0 Active Aspirin 81 MG Oral Capsule Take by mouth 1 Caplet Dosing Unit daily . 0 Active Multi-Day Oral Tablet Take by mouth 1 Tablet in the morning. 0 Active [place]-3 1000 MG Oral Capsule Take 1 Capsule by mouth in the morning. 0 Active FreeStyle Carlos 2 [place] Device Use as directed . Use to test BG E10.65 1 Each 0 02/13/2022 Active FreeStyle Carlos 2 Sensor Use as directed . Use one sensor every 14 days for blood sugar E10.65 1 Each 11 02/13/2022 Active Calcitriol 0.5 MCG Oral Capsule (Rocaltrol)Indication s:CKD (chronic kidney disease) stage 4, GFR 15-29 ml/min ([facility]) Take 1 Capsule (0.5 mcg) by mouth in the morning. 90 Capsule 5 08/12/2022 Active Sodium Bicarbonate 650 MG Oral Tablet Take 1 Tablet by mouth in the morning. 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 05/07/2023 Recurrent major depressive disorder, in full rem ission 05/05/2022 Overweight (BMI 25.0-29.9) 05/02/2022 Dyslipidemia 05/02/2022 Coronary artery disease invo lving [place] coronary artery of [place] heart without angina pectoris 05/02/2022 Type 2 diabetes mellitus wit h hemoglobin A1c goal of less than 8.0% 05/02/2022 Kidney disease, chronic, stage IV (GFR 15-29 ml/ min) 05/02/2022 Old [place] (myocardial infarction) 05/02/2022 Chronic systolic (congestive) heart failure 04/14 Left bundle branch block 05/02/2022 HTN, goal below 130/80 HIV positive documented as of this encounter (statuses as of 09/10/2023) Resolved Problems Problem Noted Date Diagnosed Date Resolved Date Chronic heart failure with p reserved ejection fraction 11/24/2022 02/04/2023 ARDS (adult respiratory distress syndrome) 06/17/2012 05/02/2022 Acute pancreatitis 06/14/2012 Acute respiratory distress 06/14/2012 0 05/02/2022 documented as of this encounter (statuses as of 09/10/2023) Immunizations Name Administration Dates Next Due COVID-19 [...] encounter Miscellaneous Notes * Telephone Encounter - Jacqui Gomez OSA - 09/10/2023 11:05 AM EST Called and lmam for pt to call back to schedule appt with Dr. Galloway * Telephone Encounter - Gerri Rodriguez MSW - 09/08/2023 4:58 PM EST Jacqui/Keira - can you please reach out to pt to schedule? Thank you. * Telephone Encounter - Savita Lindsay BS - 08/31/2023 3:05 PM EST CM routing encounter to RUTHANN Osman ADMIN, to connect with pt to schedule appt with Dr. Galloway. Patient is due for an appointment in September 2023. Appt Type: Return, in person Provider: Luis M Location: [facility] Time Spent: 15 minutes documented in this encounter Plan of Treatment Upcoming Encounters Date Type Department Care Team (Late st Contact Info) Description 02/22/2024 1:30 PM EDT [facility] Visit Pharm[facility], [facility] [address] [facility] [place] [address] [facility] [address] [address] 05/23/2024 10:20 AM EDT Office Visit Nephrology, Madeline Snider [address] [place] [address] Tesfaye Morris MD [address] [facility] [place] [address] Scheduled Procedures Name Priority Associated Diagnoses Date/Ti [...] 2-dose series) 08/04/2022 08/04/2017, 02/03/2013 COVID-19 Vaccine ( - season) 2023 09/09/2022, 11/27/2020, 10/24/2020 Nephrology Referral 08/12/2023 08/12/2022 HbA1c 11/07/2023 05/07/2023, 07/16, 10/02/2020, Additional history exists Diabetic Foot Exam 11/25/2023 11/24/2022 GFR 02/10/2024 08/12/2023, 04/14, 08/12/2022, Additional history exists COLONOSCOPY-ANNUAL AGES 18-100 02/20/2024 02/19/2023, 02/19/2023 Albumin/Creatinine Ratio 05/07/2024 05/07/2023, 05/0 11/2021 Hgb 05/07/2024 05/07/2023, 05/15, 05/07/2022, Additional [...] and were consensually agreed upon. Care Teams Whipper Relationship Specialty Start Date End Date Antonio Colon MD [address] [address] PCP - General Family Medicine 02/12/22 documented as of this encounter
--- OUTSIDE RECORDS SUMMARY | 2023-12-31 22:20 | External Medical Summary | Summary of Care ---
Author Name Unknown Organization [facility] Address [address] [place] [address] Phone [phone] Care Team Providers Care Cotton Puller Name Role Phone Antonio Colon MD Primary Care Provider [phone] Reason for Visit * Reason Onset Date Comments case management 11/03/2023 Annual Assessmen t/Eligibility Encounter Details Date Type Department Care Team (Late st Contact Info) Description 11/03/2023 Telephone Infectious Disease, [place] [address] [place] [address] Savita Lindsay BS case management (Annual Assessment/Eligibi... Allergies No known active allergiesdocumented as of this encounter (statuses as of 11/30/2023) Medications Medication Sig Dispensed Refills Start Date End Date Status Co Q 10 10 MG Oral Capsule Take by mouth 1 Caplet Dosing Unit daily . 0 Active Aspirin 81 MG Oral Capsule Take by mouth 1 Caplet Dosing Unit daily . 0 Active Multi-Day Oral Tablet Take by mouth 1 Tablet in the morning. 0 Active [place]-3 1000 MG Oral Capsule Take 1 Capsule by mouth in the morning. 0 Active FreeStyle [place] 2 [place] Device Use as directed . Use to test BG E10.65 1 Each 0 02/13/2022 Active FreeStyle Carlos 2 Sensor Use as directed . Use one sensor every 14 days for blood sugar E10.65 1 Each 11 02/13/2022 Active Sodium Bicarbonate 650 MG Oral Tablet Take 1 Tablet by mouth in the morning. 0 08/13/2022 Active Pen [place] 32G X 4 MM Use as directed [...] Hour (toPROL XL)Indications:[place] artery disease involving [place] coronary artery of [place] heart without angina pectoris TAKE 1 TABLET BY MOUTH EVERY DAY IN THE MORNING 90 Tablet 3 10/05/2023 Active Prasugrel HCl 10 MG Oral Tablet (Effient)Indications: Coronary artery disease involving [place] coronary artery of [place] heart without angina pectoris TAKE 1 TABLET BY MOUTH EVERY DAY IN THE MORNING 90 Tablet 3 10/05/2023 Active Atorvastatin Calcium 40 MG Oral Tablet (Lipitor)Indications: Dyslipidemia, goal LDL below 70 TAKE 1 TABLET BY MOUTH EVERY DAY IN THE MORNING 90 Tablet 3 10/06/2023 Active documented as of this encounter (statuses as of 11/30/2023) Active Problems Problem Noted Date Diagnosed Date 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 05/07/2023 Recurrent major depressive disorder, in full rem ission 05/05/2022 Overweight (BMI 25.0-29.9) 05/02/2022 Dyslipidemia 05/02/2022 Coronary artery disease invo lving [place] coronary artery of [place] heart without angina pectoris 05/02/2022 Type 2 diabetes mellitus wit h hemoglobin A1c goal of less than 8.0% 05/02/2022 Kidney disease, chronic, stage IV (GFR 15-29 ml/ min) 05/02/2022 Old [place] (myocardial infarction) 05/02/2022 Chronic systolic (congestive) heart failure 04/14 Left bundle branch block 05/02/2022 HTN, goal below 130/80 HIV positive documented as of this encounter (statuses as of 11/30/2023) Resolved Problems Problem Noted Date Diagnosed Date Resolved Date Chronic heart failure with p reserved ejection fraction 11/24/2022 02/04/2023 ARDS (adult respiratory distress syndrome) 06/17/2012 05/02/2022 Acute pancreatitis 06/14/2012 Acute respiratory distress 06/14/2012 0 05/02/2022 documented as of this encounter (statuses as of 11/30/2023) Immunizations Name Administration Dates Next Due COVID-19 [...] - 11/30/2023 11:42 AM EDT Contacted Tad ([phone]) to see if he's still interested in [...] out the pharmacy issues. He states the [facility] is no longer providing Juluca to patients. Patient asked if medication can now be sent to [facility] on [facility] in [place]. Explained to patient that will request Dr. Asencio to send script to this location and will call once script has been sent. Patient states he is running low on his medications,but wasn't 100% sure how many pills he had left. Routing to Dr. Asencio to send Juluca script to [facility] on [facility] in [place]. CM to reach out to patient once script is sent. Patient states he is aware of his appointment tomorrow with Dr. Asencio and plans to attend. Patient has no further questions or concerns at this time. Time Spent: 15 minutes * Telephone Encounter - Savita Lindsay BS - 11/16/2023 12:26 PM EST Contacted Tad ([phone]). Patient states he did receive the SPBP [...] with the fax that was received from [facility] as well, which stated "[facility] prescription [facility] is no longer administering the [...] 4:28 PM EST Received a fax from [employer] stating "[facility] is no longer administering the mail service prescription benefit plan for this participant: therefore we must return this prescription and ask that you process it through the new provider. Your patient should have received a mailing with detailed instructions on submitting prescriptions under their new plan. Please contact the patient for additional information regarding the new provider". Attempted to contact Tad ([phone]) regarding above fax and to check on [...] PCP to request the needles. Patient utilizes [facility] pharmacy in [place] on [facility] for these products". Time Spent: 15 minutes [...] he reports compliance with. Pharmacy: Patient utilizes [facility] as pharmacy preference. Patient has [...] Housing: Patient currently resides by himself in [place], [place]. Employment/Income: Patient is unemployed and receives [...] PCP to request the needles. Patient utilizes [facility] pharmacy in [place] on [facility] for these products. Routing to Dr. Colon to advise on this request. Time Spent: 30 minutes * Telephone Encounter - Savita Lindsay BS - 11/03/2023 12:02 PM EST Attempted to contact Tad ([phone]) to complete an annual assessment and discuss eligibility, but had to leave a voicemail requesting a return call. CM phone number provided. Awaiting return call. Time Spent: 15 minutes documented in this encounter Plan of Treatment Upcoming Encounters Date Type Department Care Team ([facility] Contact Info) Description 12/01/2023 9:40 AM EDT [facility] [place] [address] [facility] [address] Shirley Asencio MD [address] [place] [address] 02/22/2024 1:30 PM EDT Office Visit Pharmacy, Jackie Colvin [place] [address] [place] [address] [facility] Jacqui [address] [place] [place] [address] 05/23/2024 10:20 AM EDT Office Visit Nephrology, Madeline Snider [address] [place] [address] Tesfaye Morris MD [address] [place] [address] Scheduled Procedures Name Priority Associated Diagnoses Date/Ti [...] series) 08/04/2022 08/04/2017, 02/03/2013 COVID-19 Vaccine ( season) 2023 09/09/2022, 11/27/2020, 10/24/2020 Nephrology Referral [...] and were consensually agreed upon. Care Teams Cotton Puller Relationship Specialty Start Date End Date Antonio Colon MD [address] [address] PCP - General Family Medicine 02/12/22 documented as of this encounter
--- OUTSIDE RECORDS SUMMARY | 2023-12-31 22:20 | External Medical Summary | Summary of Care ---
Author Name Unknown Organization [facility] Address [address] [facility] [address] Phone [phone] Care Team Providers Care Silk Worker Name Role Phone Antonio Colon MD Primary Care Provider [phone] Reason for Visit * Reason Onset Date Comments Fax 09/14/2023 Encounter Details Date Type Department Care Team (Late st Contact Info) Description 09/14/2023 Telephone Family Practice [facility] [address] [place] [address] Antonio Colon MD [address] [place] [place] [address] Fax Allergies No known active allergiesdocumented as of this encounter (statuses as of 10/06/2023) Medications Medication Sig Dispensed Refills Start Date End Date Status Co Q 10 10 MG Oral Capsule Take by mouth 1 Caplet Dosing Unit daily . 0 Active Aspirin 81 MG Oral Capsule Take by mouth 1 Caplet Dosing Unit daily . 0 Active Multi-Day Oral Tablet Take by mouth 1 Tablet in the morning. 0 Active [place]-3 1000 MG Oral Capsule Take 1 Capsule by mouth in the morning. 0 Active FreeStyle Carlos 2 [place] Device Use as directed . Use to test BG E10.65 1 Each 0 02/13/2022 Active FreeStyle Carlos 2 Sensor Use as directed . Use one sensor every 14 days for blood sugar E10.65 1 Each 11 02/13/2022 Active Sodium Bicarbonate 650 MG Oral Tablet Take 1 Tablet by mouth in the morning. 0 08/13/2022 Active Pen [place] 32G X 4 MM Use as directed [...] Tablet by mouth daily. 0 07/22/2023 Active FLUoxetine HCl 20 MG Oral Capsule (PROzac)Indication s:ST elevation (STEMI) myocardial infarction involving left circumflex coronary artery (HCC) TAKE 1 CAPSULE BY MOUTH EVERY DAY 90 Capsule 1 09/08/2023 Active Atorvastatin Calcium 40 MG Oral Tablet (Lipitor)Indicatio ns:Dyslipidemia, goal LDL below 70 Take 1 Tablet by mouth in the morning. 90 Tablet 3 09/30/2022 4 Discontinued Prasugrel HCl 10 MG Oral Tablet (Effient)Indicatio ns:Coronary artery disease involving [place] coronary artery of o[place] heart without angina pectoris Take 1 Tablet by mouth in the morning. 90 Tablet 3 09/30/2022 4 Discontinued Metoprolol Succinate ER 25 MG Oral Tablet Extended Release 24 Hour (Toprol XL) Take 1 Tablet by mouth in the morning. 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 05/07/2023 Recurrent major depressive disorder, in full rem ission 05/05/2022 Overweight (BMI 25.0-29.9) 05/02/2022 Dyslipidemia 05/02/2022 Coronary artery disease invo lving [place] coronary artery of [place] heart without angina pectoris 05/02/2022 Type 2 diabetes mellitus wit h hemoglobin A1c goal of less than 8.0% 05/02/2022 Kidney disease, chronic, stage IV (GFR 15-29 ml/ min) 05/02/2022 [place] (myocardial infarction) 05/02/2022 Chronic systolic (congestive) heart failure 04/14 Left bundle branch block 05/02/2022 HTN, goal below 130/80 HIV positive documented as of this encounter (statuses as of 10/06/2023) Resolved Problems Problem Noted Date Diagnosed Date Resolved Date Chronic heart failure with p reserved ejection fraction 11/24/2022 02/04/2023 ARDS (adult respiratory distress syndrome) 06/17/2012 05/02/2022 Acute pancreatitis 06/14/2012 Acute respiratory distress 06/14/2012 0 05/02/2022 documented as of this encounter (statuses as of 10/06/2023) Immunizations Name Administration Dates Next Due COVID-19 [...] encounter Miscellaneous Notes * Telephone Encounter - Chelsea Mattson LPN - 10/06/2023 12:02 PM EST Faxed entire stress test * Telephone Encounter - Mechelle Baxter OSA - 10/06/2023 10:48 AM EST Caller requesting the following information to be faxed: Name/Company of caller: [facility] Information requested to be faxed: received 1 page echo, needs full report faxed-specifically stress test Fax number: [phone] Attention to Name/Company: [employer] Any additional information?: na * Telephone Encounter - Sydni Mendes LPN - 09/15/2023 3:56 PM EST Faxed complete report as requested * Telephone Encounter - Karen Da Silva OSA - 09/15/2023 10:12 AM EST Jessica Calling back said they got the first page that says echo, stress etc but Did not get stress results, they are requesting the full report, and results please re fax to [phone] call [phone] back ask for Jessica or cordelia with any questions * Telephone Encounter - Sydni Mendes LPN - 09/14/2023 6:25 PM EST Faxed as requested * Telephone Encounter - Jeannette Ingram OSA - 09/14/2023 12:12 PM EST Caller requesting the following information to be faxed: Name/Company of caller: [employer] [facility] Information requested to be faxed: Stress Results Fax number: [phone] Attention to Name/Company: [employer], Any additional information?: No documented in this encounter Plan of Treatment Upcoming Encounters Date Type Department Care Team (Late st Contact Info) Description 12/01/2023 9:40 AM EDT Office Visit [facility] [address] [place] [address] Shirley Asencio MD [address] [place] [address] 02/22/2024 1:30 PM EDT Office Visit Pharmacy, [facility] [address] [place] [address] [facility] [address] [facility] [place] [address] 05/23/2024 10:20 AM EDT Office Visit Nephrology, [facility] [address] [place] [address] Tesfaye Morris MD [address] [place] [address] Scheduled Procedures Name Priority Associated Diagnoses Date/Ti [...] 02/20/2024 02/19/2023, 02/19/2023 Albumin/Creatinine Ratio 05/07/2024 05/07/2023, 050 11/2021 Hgb 05/07/2024 05/07/2023, 05/15, 05/07/2022, Additional [...] and were consensually agreed upon. Care Teams Silk Worker Relationship Specialty Start Date End Date Antonio Colon MD [address] [place] [address] PCP - General Family Medicine 02/12/22 documented as of this encounter
--- OUTSIDE RECORDS SUMMARY | 2023-12-31 22:20 | External Medical Summary | Summary of Care ---
Author Name Unknown Organization [facility] Address [address] [place] [address] Phone [phone] Care Team Providers Care Lead Burner Apprentice Name Role Phone Antonio Colon MD Primary Care Provider [phone] Reason for Visit * Reason Onset Date Comments case management 08/31/2023 Need for Appt Appointment 08/31/2023 Encounter Details Date Type Department Care Team (Late st Contact Info) Description 08/31/2023 Telephone Infectious Disease, [place] [address] [place] [address] Savita Lindsay BS case management (Need for Appt); Appointment Allergies No known active allergiesdocumented as of this encounter (statuses as of 09/21/2023) Medications Medication Sig Dispensed Refills Start Date End Date Status Co Q 10 10 MG Oral Capsule Take by mouth 1 Caplet Dosing Unit daily . 0 Active Aspirin 81 MG Oral Capsule Take by mouth 1 Caplet Dosing Unit daily . 0 Active Multi-Day Oral Tablet Take by mouth 1 Tablet in the morning. 0 Active [place]-3 1000 MG Oral Capsule Take 1 Capsule by mouth in the morning. 0 Active FreeStyle Carlos 2 [place] Device Use as directed . Use to test BG E10.65 1 Each 0 02/13/2022 Active FreeStyle Carlos 2 Sensor Use as directed . Use one sensor every 14 days for blood sugar E10.65 1 Each 11 02/13/2022 Active Sodium Bicarbonate 650 MG Oral Tablet Take 1 Tablet by mouth in the morning. 0 08/13/2022 Active Pen [place] 32G X 4 MM Use as directed [...] Oral Tablet (Effient)Indicatio ns:Coronary artery disease involving [place] coronary artery of [place] heart without angina pectoris Take 1 Tablet [...] Tablet by mouth daily. 0 07/22/2023 Active Calcitriol 0.5 MCG Oral Capsule (Rocaltrol)Indicat ions:CKD (chronic kidney disease) stage 4, GFR 15-29 ml/min ([facility]) Take 1 Capsule (0.5 mcg) by mouth in the morning. 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 05/07/2023 Recurrent major depressive disorder, in full rem ission 05/05/2022 Overweight (BMI 25.0-29.9) 05/02/2022 Dyslipidemia 05/02/2022 Coronary artery disease invo lving [place] coronary artery of [place] heart without angina pectoris 05/02/2022 Type 2 diabetes mellitus wit h hemoglobin A1c goal of less than 8.0% 05/02/2022 Kidney disease, chronic, stage IV (GFR 15-29 ml/ min) 05/02/2022 Old [place] (myocardial infarction) 05/02/2022 Chronic systolic (congestive) heart failure 04/14 Left bundle branch block 05/02/2022 HTN, goal below 130/80 HIV positive documented as of this encounter (statuses as of 09/21/2023) Resolved Problems Problem Noted Date Diagnosed Date Resolved Date Chronic heart failure with p reserved ejection fraction 11/24/2022 02/04/2023 ARDS (adult respiratory distress syndrome) 06/17/2012 05/02/2022 Acute pancreatitis 06/14/2012 Acute respiratory distress 06/14/2012 0 05/02/2022 documented as of this encounter (statuses as of 09/21/2023) Immunizations Name Administration Dates Next Due COVID-19 [...] encounter Miscellaneous Notes * Telephone Encounter - Gerri Rodriguez MSW - 09/21/2023 3:56 PM EST Jacqui, please f/up with patient. Thank you. * Telephone Encounter - Jacqui Gomez OSA [...] 3:05 PM EST CM routing encounter to Jacqui [facility], to connect with pt to schedule appt with Dr. Galloway. Patient is due for an appointment in September 2023. Appt Type: Return, in person Provider: Luis M Location: [facility] Time Spent: 15 minutes documented in this encounter Plan of Treatment Upcoming Encounters Date Type Department Care Team (Late st Contact Info) Description 02/22/2024 1:30 PM EDT [facility] [employer] [facility] [address] [address] [place], [facility] [place] [address] 05/23/2024 10:20 AM EDT Office Visit Nephrology, [facility] [address] [place] [address] Tesfaye Morris MD [address] [facility] [address] Scheduled Procedures Name Priority Associated Diagnoses Date/Ti [...] and were consensually agreed upon. Care Teams Lead Burner Apprentice Relationship Specialty Start Date End Date Antonio Colon MD [address] [place] [address] PCP - General Family Medicine 02/12/22 documented as of this encounter
--- OUTSIDE RECORDS SUMMARY | 2023-12-31 22:20 | External Medical Summary | Summary of Care ---
Author Name Unknown Organization [facility] Address [address] [place] [address] Phone [phone] Care Team Providers Care Levers Lace Machine Operator Name Role Phone Antonio Colon MD Primary Care Provider [phone] Reason for Visit * Reason Onset Date Comments case management 11/03/2023 Annual Assessmen t/Eligibility Encounter Details Date Type Department Care Team (Late st Contact Info) Description 11/03/2023 Telephone Infectious Disease, [place] [address] [place] [address] Savita Lindsay BS case management [...] 1 Tablet in the morning. 0 Active [place]-3 1000 MG Oral Capsule Take 1 Capsule by mouth in the morning. 0 Active FreeStyle Carlos 2 [place] Device Use as directed . Use to test BG E10.65 1 Each 0 02/13/2022 Active FreeStyle Carlos 2 Sensor Use as directed . Use one sensor every 14 days for blood sugar E10.65 1 Each 11 02/13/2022 Active Sodium Bicarbonate 650 MG Oral Tablet Take 1 Tablet by mouth in the morning. 0 08/13/2022 Active Pen [place] 32G X 4 MM Use as directed [...] Hour (toPROL XL)Indications:Bass ry artery disease involving [place] coronary artery of rincon heart without angina pectoris TAKE 1 TABLET BY MOUTH EVERY DAY IN THE MORNING 90 Tablet 3 10/05/2023 Active Prasugrel HCl 10 MG Oral Tablet (Effient)Indications: Coronary artery disease involving rin[place] coronary artery of rincon heart without angina pectoris TAKE 1 TABLET [...] Dyslipidemia 05/02/2022 Coronary artery disease invo lving rincon coronary artery of rincon heart without angina pectoris 05/02/2022 Type 2 diabetes mellitus wit h hemoglobin A1c goal of less than 8.0% 05/02/2022 Kidney disease, chronic, stage IV (GFR 15-29 ml/ min) 05/02/2022 Old [place] (myocardial infarction) 05/02/2022 Chronic systolic (congestive) heart [...] - 11/30/2023 11:42 AM EDT Contacted Tad ([phone]) to see if he's still interested in [...] out the pharmacy issues. He states the [facility] is no longer providing Juluca to patients. Patient asked if medication can now be sent to [facility] on [facility] in [place]. Explained to patient that will request Dr. Asencio to send script to this location and will call once script has been sent. Patient states he is running low on his medications,but wasn't 100% sure how many pills he had left. Routing to Dr. Asencio to send Juluca script to [facility] on [facility] in [place]. CM to reach out to patient once script is sent. Patient states he is aware of his appointment tomorrow with Dr. Asencio and plans to attend. Patient has no further questions or concerns at this time. Time Spent: 15 minutes * Telephone Encounter - Savita Lindsay BS - 11/16/2023 12:26 PM EST Contacted Tad ([phone]). Patient states he did receive the SPBP [...] with the fax that was received from [employer] as well, which stated "[facility] prescription service is no longer administering the [...] 4:28 PM EST Received a fax from [employer] stating "[facility] prescription service is no longer administering the mail service prescription benefit plan for this participant: therefore we must return this prescription and ask that you process it through the new provider. Your patient should have received a mailing with detailed instructions on submitting prescriptions under their new plan. Please contact the patient for additional information regarding the new provider". Attempted to contact Tad ([phone]) regarding above fax and to check on [...] PCP to request the needles. Patient utilizes [facility] pharmacy in [place] on [address] for these products". Time Spent: 15 [...] he reports compliance with. Pharmacy: Patient utilizes [facility] as pharmacy preference. [...] Housing: Patient currently resides by himself in [place], [place]. Employment/Income: Patient is unemployed and receives [...] PCP to request the needles. Patient utilizes [facility] pharmacy in [place] on [address] for these products. Routing to Dr. Colon to advise on this request. Time Spent: 30 minutes * Telephone Encounter - Savita Lindasy BS - 11/03/2023 12:02 PM EST Attempted to contact Tad ([phone]) to complete an annual assessment and discuss eligibility, but had to leave a voicemail requesting a return call. CM phone number provided. Awaiting return call. Time Spent: 15 minutes documented in this encounter Plan of Treatment Upcoming Encounters Date Type Department Care Team ([facility] Contact Info) Description 12/01/2023 9:40 AM EDT Office Visit Infectious Disease [facility] [place] [address] [facility] [address] Shirley Asencio MD [address] [place] [address] 02/22/2024 1:30 PM EDT Office Visit Pharmacy, Jackie [facility] [place] [address] [place] [place] [address] [facility] Jacqui [address] [address] 05/23/2024 10:20 AM EDT Office Visit Nephrology, [facility] [address] [place] [address] Tesfaye Morris MD [address] [place] [address] Scheduled Procedures Name Priority Associated Diagnoses Date/Ti [...] and were consensually agreed upon. Care Teams Levers Lace Machine Operator Relationship Specialty Start Date End Date Antonio Colon MD [address] [place] [address] PCP - General Family Medicine 02/12/22 documented as of this encounter
--- OUTSIDE RECORDS SUMMARY | 2023-12-31 22:20 | External Medical Summary | Summary of Care ---
Author Name Unknown Organization [facility] Address [address] [place] [address] Phone [phone] Care Team Providers Care Pediatric Physician Assistant Name Role Phone Antonio Colon MD Primary Care Provider [phone] Reason for Visit * Reason Onset Date Comments case management 11/03/2023 Annual Assessmen t/Eligibility Encounter Details Date Type Department Care Team (Late st Contact Info) Description 11/03/2023 Telephone Infectious Disease, [place] [address] [place] [address] Savita Lindsay BS case management (Annual Assessment/Eligibi... Allergies No known active allergiesdocumented as of this encounter (statuses as of 11/16/2023) Medications Medication Sig Dispensed Refills Start Date End Date Status Co Q 10 10 MG Oral Capsule Take by mouth 1 Caplet Dosing Unit daily . 0 Active Aspirin 81 MG Oral Capsule Take by mouth 1 Caplet Dosing Unit daily . 0 Active Multi-Day Oral Tablet Take by mouth 1 Tablet in the morning. 0 Active [place]-3 1000 MG Oral Capsule Take 1 Capsule by mouth in the morning. 0 Active FreeStyle Carlos 2 [place] Device Use as directed . Use to test BG E10.65 1 Each 0 02/13/2022 Active FreeStyle Carlos 2 Sensor Use as directed . Use one sensor every 14 days for blood sugar E10.65 1 Each 11 02/13/2022 Active Sodium Bicarbonate 650 MG Oral Tablet Take 1 Tablet by mouth in the morning. 0 08/13/2022 Active Pen [place] 32G X 4 MM Use as directed [...] Hour (toPROL XL)Indications:Bass ry artery disease involving [place] coronary artery of [place] heart without angina pectoris TAKE 1 TABLET BY MOUTH EVERY DAY IN THE MORNING 90 Tablet 3 10/05/2023 Active Prasugrel HCl 10 MG Oral Tablet (Effient)Indications: Coronary artery disease involving [place] coronary artery of [place] heart without angina pectoris TAKE 1 TABLET BY MOUTH EVERY DAY IN THE MORNING 90 Tablet 3 10/05/2023 Active Atorvastatin Calcium 40 MG Oral Tablet (Lipitor)Indications: Dyslipidemia, goal LDL below 70 TAKE 1 TABLET BY MOUTH EVERY DAY IN THE MORNING 90 Tablet 3 10/06/2023 Active documented as of this encounter (statuses as of 11/16/2023) Active Problems Problem Noted Date Diagnosed Date 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 05/07/2023 Recurrent major depressive disorder, in full rem ission 05/05/2022 Overweight (BMI 25.0-29.9) 05/02/2022 Dyslipidemia 05/02/2022 Coronary artery disease invo lving [place] coronary artery of aniak heart without angina pectoris 05/02/2022 Type 2 diabetes mellitus wit h hemoglobin A1c goal of less than 8.0% 05/02/2022 Kidney disease, chronic, stage IV (GFR 15-29 ml/ min) 05/02/2022 Old [place] (myocardial infarction) 05/02/2022 Chronic systolic (congestive) heart failure 04/14 Left bundle branch block 05/02/2022 HTN, goal below 130/80 HIV positive documented as of this encounter (statuses as of 11/16/2023) Resolved Problems Problem Noted Date Diagnosed Date Resolved Date Chronic heart failure with p reserved ejection fraction 11/24/2022 02/04/2023 ARDS (adult respiratory distress syndrome) 06/17/2012 05/02/2022 Acute pancreatitis 06/14/2012 Acute respiratory distress 06/14/2012 0 05/02/2022 documented as of this encounter (statuses as of 11/16/2023) Immunizations Name Administration Dates Next Due COVID-19 [...] - 11/16/2023 12:26 PM EST Contacted Tad ([phone]). Patient states he did receive the SPBP [...] with the fax that was received from [employer] as well, which stated "[facility] prescription service is no longer administering the [...] 4:28 PM EST Received a fax from [employer] stating "[facility] prescription service is no longer administering the mail service prescription benefit plan for this participant: therefore we must return this prescription and ask that you process it through the new provider. Your patient should have received a mailing with detailed instructions on submitting prescriptions under their new plan. Please contact the patient for additional information regarding the new provider". Attempted to contact Tad ([phone]) regarding above fax and to check on [...] PCP to request the needles. Patient utilizes [facility] pharmacy in [facility] for these products". Time Spent: 15 minutes [...] he reports compliance with. Pharmacy: Patient utilizes [facility] as pharmacy preference. Patient has [...] Housing: Patient currently resides by himself in [place], [place]. Employment/Income: Patient is unemployed and receives [...] the needles. Patient utilizes [facility] pharmacy in [place] on [facility] for these products. Routing to Dr. Colon to advise on this request. Time Spent: 30 minutes * Telephone Encounter - Savita Lindsay BS - 11/03/2023 12:02 PM EST Attempted to contact Tad ([phone]) to complete an annual assessment and discuss eligibility, but had to leave a voicemail requesting a return call. CM phone number provided. Awaiting return call. Time Spent: 15 minutes documented in this encounter Plan of Treatment Upcoming Encounters Date Type Department Care Team (Late st Contact Info) Description 12/01/2023 9:40 AM EDT Office Visit Infectious Disease [facility] [address] [place] [address] Shirley Asencio MD [address] [place] [address] 02/22/2024 1:30 PM EDT Office Visit Pharmacy, [facility] [address] [place] [address] [facility] [address] [place] [address] 05/23/2024 10:20 AM EDT Office Visit [facility]phrology, [facility] [address] [place] [address] Tesfaye Morris MD [address] [facility] [place] [address] Scheduled Procedures Name Priority Associated Diagnoses Date/Ti [...] and were consensually agreed upon. Care Teams Pediatric Physician Assistant Relationship Specialty Start Date End Date Antonio Cloon MD [address] [place] [place] [address] PCP - General Family Medicine 02/12/22 documented as of this encounter
--- OUTSIDE RECORDS SUMMARY | 2023-12-31 22:20 | External Medical Summary | Summary of Care ---
Author Name Unknown Organization [facility] Address [address] [facility] [place] [address] Phone [phone] Care Team Providers Care Social Services Designee Name Role Phone Antonio Colon MD Primary Care Provider [phone] Reason for Visit * Reason Onset Date Comments Test Results 08/16/2023 Encounter Details Date Type Department Care Team (Late st Contact Info) Description 08/16/2023 Telephone Nephrology, Madeline Snider [address] [facility] [place] [address] ZemaShirley virk PA-C [address] [facility] [place] [address] Test Results Allergies No known active allergiesdocumented as of this encounter (statuses as of 08/16/2023) Medications Medication Sig Dispensed Refills Start Date [...] 1 Tablet in the morning. 0 Active [place]-3 1000 MG Oral Capsule Take 1 Capsule by mouth in the morning. 0 Active FreeStyle Carlos 2 Bronte Device Use as directed . Use to [...] in the morning. 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 05/07/2023 Recurrent major depressive disorder, in full rem ission 05/05/2022 Overweight (BMI 25.0-29.9) 05/02/2022 Dyslipidemia 05/02/2022 Coronary artery disease invo lving cahuilla coronary artery of cahuilla heart without angina pectoris 05/02/2022 Type 2 diabetes mellitus wit h hemoglobin A1c goal of less than 8.0% 05/02/2022 Kidney disease, chronic, stage IV (GFR 15-29 ml/ min) 05/02/2022 Old ID (myocardial infarction) 05/02/2022 Chronic systolic (congestive) heart failure 04/14 Left bundle branch block 05/02/2022 HTN, goal below 130/80 HIV positive documented as of this encounter (statuses as of 08/16/2023) Resolved Problems Problem Noted Date Diagnosed Date Resolved Date Chronic heart failure with p reserved ejection fraction 11/24/2022 02/04/2023 ARDS (adult respiratory distress syndrome) 06/17/2012 05/02/2022 Acute pancreatitis 06/14/2012 Acute respiratory distress 06/14/2012 0 05/02/2022 documented as of this encounter (statuses as of 08/16/2023) Immunizations Name Administration Dates Next Due COVID-19 [...] Telephone Encounter - Any Fraser RN - 08/16/2023 2:02 PM EST TE with pt regarding lab results. Diet reviewed and pt was able to site foods that are high in potassium. He is aware to decrease amounts of these foods and is aware to repeat labs in 2 weeks. Order already placed. * Telephone Encounter - Any Fraser RN - 08/16/2023 2:01 PM EST ----- Message from Shirley Roche [...] Description 08/31/2023 6:10 PM EST Pharmacy Pharmacy, [facility] [address] [facility] [place] [address] [facility] [address] [facility] [place] [address] 05/23/2024 10:20 AM EDT Office Visit Nephrology, Madeline Snider [address] [place] [address] Tesfaye Morris MD 200 [facility] [place] [address] Scheduled Procedures Name Priority Associated Diagnoses Date/Ti [...] and were consensually agreed upon. Care Teams Social Services Designee Relationship Specialty Start Date End Date Antonio Colon MD [address] [place] [address] PCP - General Family Medicine 02/12/22 documented as of this encounter
--- OUTSIDE RECORDS SUMMARY | 2023-12-31 22:20 | External Medical Summary | Summary of Care ---
Author Name Unknown Organization [facility] Address [address] [place] [address] Phone [phone] Care Team Providers Care Stretch Press Operator Name Role Phone Antonio Colon MD Primary Care Provider [phone] Reason for Visit * Reason Onset Date Comments case management 08/31/2023 Need for Appt Appointment 08/31/2023 Encounter Details Date Type Department Care Team (Late st Contact Info) Description 08/31/2023 Telephone Infectious Disease, [place] [address] [place] [address] Savita Lindsay BS case management (Need for Appt); Appointment Allergies No known active allergiesdocumented as of this encounter (statuses as of 09/22/2023) Medications Medication Sig Dispensed Refills Start Date End Date Status Co Q 10 10 MG Oral Capsule Take by mouth 1 Caplet Dosing Unit daily . 0 Active Aspirin 81 MG Oral Capsule Take by mouth 1 Caplet Dosing Unit daily . 0 Active Multi-Day Oral Tablet Take by mouth 1 Tablet in the morning. 0 Active [place]-3 1000 MG Oral Capsule Take 1 Capsule by mouth in the morning. 0 Active FreeStyle Carlos 2 [place] Device Use as directed . Use to test BG E10.65 1 Each 0 02/13/2022 Active FreeStyle Carlos 2 Sensor Use as directed . Use one sensor every 14 days for blood sugar E10.65 1 Each 11 02/13/2022 Active Sodium Bicarbonate 650 MG Oral Tablet Take 1 Tablet by mouth in the morning. 0 08/13/2022 Active Pen [place] 32G X 4 MM Use as directed [...] Oral Tablet (Effient)Indicatio ns:Coronary artery disease involving cedar[place] coronary artery of [place]edar[place] heart without angina pectoris Take 1 Tablet [...] kidney disease) stage 4, GFR 15-29 ml/min ([facility]) Take 1 Capsule (0.5 mcg) by mouth in the morning. 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 05/07/2023 Recurrent major depressive disorder, in full rem ission 05/05/2022 Overweight (BMI 25.0-29.9) 05/02/2022 Dyslipidemia 05/02/2022 Coronary artery disease invo lving cedar[place] coronary artery of [place]edar[place] heart without angina pectoris 05/02/2022 Type 2 diabetes mellitus wit h hemoglobin A1c goal of less than 8.0% 05/02/2022 Kidney disease, chronic, stage IV (GFR 15-29 ml/ min) 05/02/2022 Old [place] (myocardial infarction) 05/02/2022 Chronic systolic (congestive) heart failure 04/14 Left bundle branch block 05/02/2022 HTN, goal below 130/80 HIV positive documented as of this encounter (statuses as of 09/22/2023) Resolved Problems Problem Noted Date Diagnosed Date Resolved Date Chronic heart failure with p reserved ejection fraction 11/24/2022 02/04/2023 ARDS (adult respiratory distress syndrome) 06/17/2012 05/02/2022 Acute pancreatitis 06/14/2012 Acute respiratory distress 06/14/2012 0 05/02/2022 documented as of this encounter (statuses as of 09/22/2023) Immunizations Name Administration Dates Next Due COVID-19 [...] Telephone Encounter - Jacqui Gomez OSA - 09/22/2023 11:02 AM EST Called and spoke with pt. He is in [place] and he thinks he may have COVID. [facility]. Pt asked for a reminder call. Sending to CM. Asked pt if for some reason he can not keep appt to please call. * Telephone Encounter - Gerri Rodriguez MSW [...] Provider: Luis M Location: Prefers [facility] or [facility] Time Spent: 15 minutes documented in this encounter Plan of Treatment Upcoming Encounters Date Type Department Care Team (Late st Contact Info) Description 12/01/2023 9:40 AM EDT Office Visit Infectious Disease [facility] [address] [address] Shirley Galloway MD [address] [place] [address] 02/22/2024 1:30 PM EDT [facility] [address] [facility] [address] [facility] [address] [facility] [place] [address] 05/23/2024 10:20 AM EDT [facility] [address] [place] [address] Tesfaye Morris MD [address] [place] [address] Scheduled Procedures Name Priority Associated Diagnoses Date/Ti [...] and were consensually agreed upon. Care Teams Stretch Press Operator Relationship Specialty Start Date End Date Antonio Colon MD [address] [place] [address] PCP - General Family Medicine 02/12/22 documented as of this encounter
--- OUTSIDE RECORDS SUMMARY | 2023-12-31 22:20 | External Medical Summary | Summary of Care ---
Author Name Unknown Organization [facility] Address [address] [place] [address] Phone [phone] Care Team Providers Care Food Service Tray Attendant Name Role Phone Antonio Colon MD Primary Care Provider [phone] Reason for Visit * Reason Comments Follow Up Encounter Details Date Type Department Care Team (Late st Contact Info) Description 12/01/2023 9:40 AM EDT Office Visit Infectious Disease [facility] [place] [address] [facility] [place] [address] Shirley Asencio MD [address] [place], [place] [id number] HIV, asymptomatic (HCC)* Allergies No known active allergiesdocumented as of this encounter (statuses as of 12/01/2023) Medications Medication Sig Dispensed Refills Start Date End Date Status Co Q 10 10 MG Oral Capsule Take by mouth 1 Caplet Dosing Unit daily . 0 Active Aspirin 81 MG Oral Capsule Take by mouth 1 Caplet Dosing Unit daily . 0 Active Multi-Day Oral Tablet Take by mouth 1 Tablet in the morning. 0 Active [place]-3 1000 MG Oral Capsule Take 1 Capsule by mouth in the morning. 0 Active FreeStyle Carlos 2 [place] Device Use as directed . Use to test BG E10.65 1 Each 0 02/13/2022 Active FreeStyle Carlos 2 Sensor Use as directed . Use one sensor every 14 days for blood sugar E10.65 1 Each 11 02/13/2022 Active Sodium Bicarbonate 650 MG Oral Tablet Take 1 Tablet by mouth in the morning. 0 08/13/2022 Active Pen [employer] Mdl 32G X 4 MM Use as directed [...] Hour (toPROL XL)Indications:Cor onary artery disease involving inaja coronary artery of inaja heart without angina pectoris TAKE 1 TABLET BY MOUTH EVERY DAY IN THE MORNING 90 Tablet 3 10/05/2023 Active Prasugrel HCl 10 MG Oral Tablet (Effient)Indicatio ns:Coronary artery disease involving inaja coronary artery of inaja heart without angina pectoris TAKE 1 TABLET BY MOUTH EVERY DAY IN THE MORNING 90 Tablet 3 10/05/2023 Active Atorvastatin Calcium 40 MG Oral Tablet (Lipitor)Indicatio ns:Dyslipidemia, goal LDL below 70 TAKE 1 TABLET BY MOUTH EVERY DAY IN THE MORNING 90 Tablet 3 10/06/2023 Active Juluca 50-25 MG Oral Tablet Take 1 Tablet by mouth daily. 90 Tablet 3 12/01/2023 Active Juluca 50-25 MG Oral Tablet Take 1 Tablet by mouth daily. 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 05/07/2023 Recurrent major depressive disorder, in full rem ission 05/05/2022 Overweight (BMI 25.0-29.9) 05/02/2022 Dyslipidemia 05/02/2022 Coronary artery disease invo lving inaja coronary artery of inaja heart without angina pectoris 05/02/2022 Type 2 diabetes mellitus wit h hemoglobin A1c goal of less than 8.0% 05/02/2022 Kidney disease, chronic, stage IV (GFR 15-29 ml/ min) 05/02/2022 Old [place] (myocardial infarction) 05/02/2022 Chronic systolic (congestive) heart failure 04/14 Left bundle branch block 05/02/2022 HTN, goal below 130/80 HIV positive documented as of this encounter (statuses as of 12/01/2023) Resolved Problems Problem Noted Date Diagnosed Date Resolved Date Chronic heart failure with p reserved ejection fraction 11/24/2022 02/04/2023 ARDS (adult respiratory distress syndrome) 06/17/2012 05/02/2022 Acute pancreatitis 06/14/2012 Acute respiratory distress 06/14/2012 0 05/02/2022 documented as of this encounter (statuses as of 12/01/2023) Immunizations Name Administration Dates Next Due COVID-19 mRNA, LNP-s, No Pre serve, 2-Dose Series (Moderna) 11/27/2020,10/24/2020 COVID-19, MRNA-LNP, 23-24, P F, 50 MCG/0.5 mL, 12 YRS AND ABOVE, IM (MODERNA-Spikevax) 08/05/2021 Covid-19, Mrna, Lnp-s, Pf, B ivalent, 30 Mcg, IM, 12 yrs and above ([email or web address]) 09/09/2022 Hepatitis B, 20+ yrs 08/25/2017 Meningococcal [...] on file documented as of this encounter Last Filed Vital Signs Vital Sign Reading Time Taken Comments Blood Pressure 128/80 12/01/2023 9:58 AM EDT Pulse 80 12/01/2023 9:58 AM EDT Temperature 36.3 C (97.4 F) 12/01/2023 9:58 AM ED T Respiratory Rate 16 12/01/2023 9:58 AM EDT Oxygen Saturation 97% 12/01/2023 9:58 AM EDT Inhaled Oxygen Concentration - - Weight 81.2 kg (179 lb 1.9 oz) 12/01/2023 9:58 A M EDT Height 175.3 cm (5' 9") 12/01/2023 9:58 AM EDT Body Mass Index 26.45 12/01/2023 9:58 AM EDT documented in this encounter Progress Notes * Shirley Asencio MD - 12/01/2023 9:48 AM EDT Tad Silvestre is a 68 year old male who presents for HIV follow up care.PMHx Lyme disease,pancreatitis,DM 2,diverticulitis,CKD,PA X 2 .Patient reports he was diagnosed in 1987 and was not initially started on any ART but he has been on AZT,Crixavan,and then proceeded on a drug holiday for 2 years in the s. He re-started his ART when his CD4 dropped to 400 .He thinks he has been on both Atriplaand Complera and has been on Juluca for the past 2 years with his most recent CD4 599(05/05) and VL77 in 04/2023.He had to cancel his last appointment because he was in [place] and has been working with regarding some insurance issues .He just returned from [place] Fully vaccinated for his pneumonia ,influenza and hepatitis B vaccine His Pharmacy [facility] now [facility] ROS: Patient complains of no specific complaints Review of patient's allergies indicates: No Known Allergies Patient Active Problem List Diagnosis Code HTN, goal below 130/80 I10 HIV positive ([facility]) Z21 Overweight (BMI 25.0-29.9) E66.3 Dyslipidemia E78.5 Coronary artery disease involving inaja coronary artery of inaja heart without angina pectoris I25.10 Type 2 diabetes mellitus with hemoglobin A1c goal of less than 8.0% ([facility]) E11.9 Kidney disease, chronic, stage IV (GFR 15-29 ml/min) ([facility]) N18.4 Old [place] (myocardial infarction) I25.2 Chronic systolic (congestive) heart failure ([facility]) I50.22 Left bundle branch block I44.7 Recurrent major depressive disorder, in full remission ([facility]) F33.42 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 Aspirin 81 MG Oral Capsule Take by mouth 1 Caplet Dosing Unit daily . Multi-Day Oral Tablet Take by mouth 1 Tablet in the morning. [place]brook-3 1000 MG Oral Capsule Take 1 Capsule by mouth in the morning. FreeStyle Carlos 2 [place] Device Use as directed . Use to test BG E10.65 1 Each 0 FreeStyle Carlos 2 Sensor Use as directed . Use one sensor every 14 days for blood sugar E10.65 1 Each 11 Sodium Bicarbonate 650 MG Oral Tablet Take 1 Tablet by mouth in the morning. Pen [employer] Mdl 32G X 4 MM Use as directed . Use to inject insulin 4 times daily E11.9 200 Each 5 Vitamin D-3 25 MCG (1000 UT) Oral Capsule Take 1 Capsule by mouth in the morning. Basaglar KwikPen 100 UNIT/ML Subcutaneous Solution Pen-injector (Insulin Glargine Solostar) INJECT UNDER THE SKIN 22 UNITS IN THE MORNING. 30 mL 1 NovoLOG FlexPen 100 UNIT/ML Subcutaneous Solution Pen-injector (insulin aspart) INJECT 10 UNITS THREE TIMES A DAY WITH MEALS or as directed 15 mL 5 FLUoxetine HCl 20 MG Oral Capsule (PROzac) TAKE 1 CAPSULE BY MOUTH EVERY DAY 90 Capsule 1 Calcitriol 0.5 MCG Oral Capsule (Rocaltrol) TAKE 1 CAPSULE (0.5 MCG) BY MOUTH IN THE MORNING. 90 Capsule 5 Metoprolol Succinate ER 25 MG Oral Tablet Extended Release 24 Hour (toPROL XL) TAKE 1 TABLET BY MOUTH EVERY DAY IN THE MORNING 90 Tablet 3 Prasugrel HCl 10 MG Oral Tablet (Effient) TAKE 1 TABLET BY MOUTH EVERY DAY IN THE MORNING 90 Tablet3 Atorvastatin Calcium 40 MG Oral Tablet (Lipitor) TAKE 1 TABLET BY MOUTH EVERY DAY IN THE MORNING 90Tablet 3 Juluca 50-25 MG Oral Tablet Take 1 Tablet by mouth daily. 90 Tablet 0 No current facility-administered medications for this visit. Lab Results Component Value Date/Time HEPATITIS C ANTIBODY - [facility] Negative 05/07/2022 04:25 PM No results found for: "HEP B SURFACE AG" No results found for: "HEP B SURFACE AB" Immunization History Administered Date(s) Administered COVID-19 mRNA, LNP-s, No Preserve, 2-Dose Series (Moderna) 10/24/2020, 11/27/2020 Hepatitis B, 20+ yrs 08/25/2017 Meningococcal MCV4P Conjugate Vaccine (Menactra) 02/03/2013, 08/04/2017 Pneumococcal Conjugate Vacc, 13 Valent (Prevnar) 07/23/2017, 08/21/2018 Pneumococcal Polysaccharide PPV23 (Pneumovax) 07/20/2012 Seasonal Influenza Virus Vaccine, Unspecified Formulation 08/21/2018, 10/05/2019, 06/19/2021 Seasonal Influenza, Quadrivalent Hd (Fluzone Hd) 08/12/2023 Seasonal Influenza, Split, IIV3, With Preserve, Inj 08/21/2018, 12/23/2018, 10/05/2019, 05/07/2020,06/19/2021 TDAP (age 10 and older)(Boostrix) 07/23/2017 Physical Exam There were no vitals taken for this visit.Skin: no rashes or significant lesions Lungs: abnormal: normal respiratory effort Neuro Exam: alert & oriented x 3 with fluent speech Extremities: no trauma Laboratory Data: ABS CD4 Date/Time Value Ref Range Status 06/14/2012 06:19 PM 282 (L) 330 - 1520 LYMPHS/UL Final No components found for: "CD4" No results found for: "HIV-1 RNA" ASSESSMENT: Patient on Juluca most recent CD4 599 and VL 77 in 04/2023.He will obtain labs today and he does not want STI testing .He denies non compliance or side effects PLAN:Continue current medications CBC, CD4 and VL today Continue Juluca Follow up:in 6 months Shirley Asencio MD Infectious Disease Department [facility] [address] [place] [address] Fx: [phone] documented in this encounter Nursing Notes * Mary Villegas LPN - 12/01/2023 9:57 AM EDT Patient presents today for a follow up. He denies any concerns. documented in this encounter Plan of Treatment Upcoming Encounters Date Type Department Care Team (Late st Contact Info) Description 02/22/2024 1:30 PM EDT Office Visit Pharmacy, [facility] [place] [address] [facility] [place] [address] [facility] [address] 05/23/2024 10:20 AM EDT Office Visit Nephrology, Madeline Snider [address] [place] [address] Tesfaye Morris MD 200 [facility] [place] [address] Scheduled Procedures Name Priority Associated Diagnoses Date/Ti [...] as of this encounter Visit Diagnoses Diagnosis HIV, asymptomatic (HCC)- Primary Asymptomatic human immunodeficiency virus (HIV) infection status documented in this encounter Advance Directives Latest Code Status on File Code Status Date Activated Date Inactivated Comments Full Code 06/14/2012 6:26 PM 06/17/2012 7:43 PM This order reflects the patients wishes and were consensually agreed upon. Care Teams Food Service Tray Attendant Relationship Specialty Start Date End Date Antonio Colon MD [address] [place] [address] PCP - General Family Medicine 02/12/22 documented as of this encounter
--- OUTSIDE RECORDS SUMMARY | 2023-12-31 22:20 | External Medical Summary | Summary of Care ---
Author Name Unknown Organization [facility] Address [address] [facility] [place] [address] Phone [phone] Care Team Providers Care Manager Adobe Name Role Phone Abimael Us MD Primary Care Provider [phone] [phone] Reason for Visit * Reason Comments eRx-Medication Refill Encounter Details Date Type Department Care Team (Late st Contact Info) Description 09/08/2023 Refill Family Practice [facility] [address] [facility] [place] [address] Abimael Us MD [address] [place] [address] ST elevation (STEMI) myocardial infarction involving left circumflex coronary artery (HCC) Allergies No known active allergiesdocumented as of this encounter (statuses as of 09/08/2023) Medications Medication Sig Dispensed Refills Start Date End Date Status Co Q 10 10 MG Oral Capsule Take by mouth 1 Caplet Dosing Unit daily . 0 Active Aspirin 81 MG Oral Capsule Take by mouth 1 Caplet Dosing Unit daily . 0 Active Multi-Day Oral Tablet Take by mouth 1 Tablet in the morning. 0 Active [place]-3 1000 MG Oral Capsule Take 1 Capsule by mouth in the morning. 0 Active FreeStyle Carlos 2 [place] Device Use as directed . Use to test BG E10.65 1 Each 0 02/13/2022 Active FreeStyle Carlos 2 Sensor Use as directed . Use one sensor every 14 days for blood sugar E10.65 1 Each 11 02/13/2022 Active Calcitriol 0.5 MCG Oral Capsule (Rocaltrol)Indicat ions:CKD (chronic kidney disease) stage 4, GFR 15-29 ml/min (HCC) Take 1 Capsule (0.5 mcg) by mouth in the morning. 90 Capsule 5 08/12/2022 Active Sodium Bicarbonate 650 MG Oral Tablet Take 1 Tablet by mouth in the morning. 0 08/13/2022 Active Pen [place] 32G X 4 MM Use as directed [...] Oral Tablet (Effient)Indicatio ns:Coronary artery disease involving [place] coronary artery of [place] heart without angina pectoris Take 1 Tablet [...] EVERY DAY 90 Capsule 1 09/08/2023 Active FLUoxetine HCl 20 MG Oral Capsule Take 1 Capsule by mouth in the morning. 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 05/07/2023 Recurrent major depressive disorder, in full rem ission 05/05/2022 Overweight (BMI 25.0-29.9) 05/02/2022 Dyslipidemia 05/02/2022 Coronary artery disease invo lving [place] coronary artery of [place] heart without angina pectoris 05/02/2022 Type 2 diabetes mellitus wit h hemoglobin A1c goal of less than 8.0% 05/02/2022 Kidney disease, chronic, stage IV (GFR 15-29 ml/ min) 05/02/2022 Old MS (myocardial infarction) 05/02/2022 Chronic systolic (congestive) heart failure 04/14 Left bundle branch block 05/02/2022 HTN, goal below 130/80 HIV positive documented as of this encounter (statuses as of 09/08/2023) Resolved Problems Problem Noted Date Diagnosed Date Resolved Date Chronic heart failure with p reserved ejection fraction 11/24/2022 02/04/2023 ARDS (adult respiratory distress syndrome) 06/17/2012 05/02/2022 Acute pancreatitis 06/14/2012 Acute respiratory distress 06/14/2012 0 05/02/2022 documented as of this encounter (statuses as of 09/08/2023) Immunizations Name Administration Dates Next Due COVID-19 [...] encounter Miscellaneous Notes * Telephone Encounter - Abimael Us MD - 09/08/2023 4:28 PM ESTSigned Prescriptions: Disp Refills FLUoxetine HCl 20 MG Oral Capsule (PROzac) 90 Cap*1 Sig: TAKE 1 CAPSULE BY MOUTH EVERY DAY Authorizing Provider: ABIMAEL US * Telephone Encounter - Lise Tellez [facility] - 09/08/2023 3:15 PM EST Pending Prescriptions: Disp Refills FLUoxetine HCl 20 MG Oral Capsule [Pharmac*90 Cap*1 Sig: TAKE 1 CAPSULE BY MOUTH EVERY DAY * Telephone Encounter - Lise Tellez [facility] - 09/08/2023 3:15 PM EST Pharmacists cannot authorize refills for meds listed as "historical" in chart. Please approve if appropriate. Pending Prescriptions: Disp Refills FLUoxetine HCl 20 MG Oral Capsule [Pharmac*90 Cap*1 Sig: TAKE 1 CAPSULE BY MOUTH EVERY DAY Last Visit: 05/07/2023 (in office), Visit date not found (telemedicine) Visit date not found If no future appointments scheduled, and last appointment is greater than a year ago, please schedule patient for a follow-up appointment Last date the medication was ordered: historical Pharmacy: [id number] [address] [facility] Is this request for a controlled substance?No [...] PM HGBA1C 7.4 (H) 10/02/2020 03:48 PM Lise Sahu PharmD Clinical Pharmacist [facility] ([facility] (formerly Telepharmacy) [phone] 09/08/2023,3:15 PM documented in this encounter Plan of Treatment Upcoming Encounters Date Type Department Care Team (Late st Contact Info) Description 02/22/2024 1:30 PM EDT Office Visit Pharmacy, [facility] [place] [address] [place] [address] [facility] [place] [address] [place] [place] [address] 05/23/2024 10:20 AM EDT Office Visit Nephrology, [address] [place] [address] Tesfaye Morris MD [address] [facility] [place] [address] Scheduled Procedures Name Priority Associated Diagnoses Date/Ti [...] as of this encounter Visit Diagnoses Diagnosis ST elevation (STEMI) myocardial infarction involving left circumflex coronary artery (HCC) documented in this encounter Advance Directives Latest Code Status on File Code Status Date Activated Date Inactivated Comments Full Code 06/14/2012 6:26 PM 06/17/2012 7:43 PM This order reflects the patients wishes and were consensually agreed upon. Care Teams Manager Adobe Relationship Specialty Start Date End Date Abimael Us MD [address] [facility] [place] [address] PCP - General Family Medicine 02/12/22 documented as of this encounter
--- OUTSIDE RECORDS SUMMARY | 2023-12-31 22:20 | External Medical Summary | Summary of Care ---
Author Name Unknown Organization [facility] Address [address] [place] [address] Phone [phone] Care Team Providers Care Melter Helper Name Role Phone Antonio Colon MD Primary Care Provider [phone] [phone] Reason for Visit * Reason Comments eRx-Medication Refill Encounter Details Date Type Department Care Team (Late st Contact Info) Description 09/14/2023 Refill [facility]rology[facility] [address] [place] [address] Mely Morris MD [address] [facility] [place] [address] CKD (chronic kidney disease) stage 4, GFR 15-29 ml/min ([facility]) Allergies No known active allergiesdocumented as of this encounter (statuses as of 09/15/2023) Medications Medication Sig Dispensed Refills Start Date End Date Status Co Q 10 10 MG Oral Capsule Take by mouth 1 Caplet Dosing Unit daily . 0 Active Aspirin 81 MG Oral Capsule Take by mouth 1 Caplet Dosing Unit daily . 0 Active Multi-Day Oral Tablet Take by mouth 1 Tablet in the morning. 0 Active [place]-3 1000 MG Oral Capsule Take 1 Capsule by mouth in the morning. 0 Active FreeStyle Carlos 2 [place] Device Use as directed . Use to test BG E10.65 1 Each 0 02/13/2022 Active FreeStyle Carlos 2 Sensor Use as directed . Use one sensor every 14 days for blood sugar E10.65 1 Each 11 02/13/2022 Active Sodium Bicarbonate 650 MG Oral Tablet Take 1 Tablet by mouth in the morning. 0 08/13/2022 Active Pen [place] 32G X 4 MM Use as directed [...] Oral Tablet (Effient)Indicatio ns:Coronary artery disease involving [place] coronary artery of [place] heart without angina pectoris Take 1 Tablet [...] THE MORNING. 90 Capsule 5 09/15/2023 Active Calcitriol 0.5 MCG Oral Capsule (Rocaltrol)Indicat ions:CKD (chronic kidney disease) stage 4, GFR 15-29 ml/min (HCC) Take 1 Capsule (0.5 mcg) by mouth in the morning. 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 05/07/2023 Recurrent major depressive disorder, in full rem ission 05/05/2022 Overweight (BMI 25.0-29.9) 05/02/2022 Dyslipidemia 05/02/2022 Coronary artery disease invo lving [place] coronary artery of [place] heart without angina pectoris 05/02/2022 Type 2 diabetes mellitus wit h hemoglobin A1c goal of less than 8.0% 05/02/2022 Kidney disease, chronic, stage IV (GFR 15-29 ml/ min) 05/02/2022 Old [place] (myocardial infarction) 05/02/2022 Chronic systolic (congestive) heart failure 04/14 Left bundle branch block 05/02/2022 HTN, goal below 130/80 HIV positive documented as of this encounter (statuses as of 09/15/2023) Resolved Problems Problem Noted Date Diagnosed Date Resolved Date Chronic heart failure with p reserved ejection fraction 11/24/2022 02/04/2023 ARDS (adult respiratory distress syndrome) 06/17/2012 05/02/2022 Acute pancreatitis 06/14/2012 2 Acute respiratory distress 06/14/2012 0 05/02/2022 documented as of this encounter (statuses as of 09/15/2023) Immunizations Name Administration Dates Next Due COVID-19 [...] encounter Miscellaneous Notes * Telephone Encounter - Mely Morris MD - 09/15/2023 9:16 AM ESTSigned Prescriptions: Disp Refills Calcitriol 0.5 MCG Oral Capsule (Rocaltrol)90 Cap*5 Sig: TAKE 1 CAPSULE (0.5 MCG) BY MOUTH IN THE MORNING. Authorizing Provider: MELY MORRIS * Telephone Encounter - Any Fraser RN - 09/15/2023 9:12 AM ESTPending Prescriptions: Disp Refills Calcitriol 0.5 MCG Oral Capsule [Pharmacy *90 Cap*5 Sig: Take 1 Capsule (0.5 mcg) by mouth in the morning. * Telephone Encounter - Any Fraser RN - 09/15/2023 9:10 AM EST Prescription request received from pharmacy pending. Please authorize. Last OV 08/12/23 Next OV 05/23/24 documented in this encounter Plan of Treatment Upcoming Encounters Date Type Department Care Team (Late st Contact Info) Description 02/22/2024 1:30 PM EDT Office Visit Pharmacy, [facility] [address] [address] [facility] [place] [address] [place] [address] 05/23/2024 10:20 AM EDT Office Visit Nephrology, Madeline Snider [address] [place] [address] Mely Morris MD [address] [place] [address] Scheduled Procedures Name Priority Associated Diagnoses Date/Ti [...] as of this encounter Visit Diagnoses Diagnosis CKD (chronic kidney disease) stage 4, GFR 15-29 ml/min (HCC) Chronic kidney disease, Stage IV (severe) documented in this encounter Advance Directives Latest Code Status on File Code Status Date Activated Date Inactivated Comments Full Code 06/14/2012 6:26 PM 06/17/2012 7:43 PM This order reflects the patients wishes and were consensually agreed upon. Care Teams Melter Helper Relationship Specialty Start Date End Date Antonio Colon MD [address] [place] [address] PCP - General Family Medicine 02/12/22 documented as of this encounter
--- OUTSIDE RECORDS SUMMARY | 2023-12-31 22:20 | External Medical Summary | Summary of Care ---
Author Name Unknown Organization [facility] Address [address] [place] [address] Phone [phone] Care Team Providers Care Iv Therapy Nurse Name Role Phone Antonio Colon MD Primary Care Provider [phone] [phone] Reason for Visit * Reason Onset Date Comments Medication Refill 11/03/2023 Encounter Details Date Type Department Care Team (Late st Contact Info) Description 11/03/2023 Refill Infectious Disease, [place] [address] [place], [place] [id number] Wayne Sanchez MD [address] [place], [place] [id number] Allergies No known active allergiesdocumented as of this encounter (statuses as of 11/03/2023) Medications Medication Sig Dispensed Refills Start Date End Date Status Co Q 10 10 MG Oral Capsule Take by mouth 1 Caplet Dosing Unit daily . 0 Active Aspirin 81 MG Oral Capsule Take by mouth 1 Caplet Dosing Unit daily . 0 Active Multi-Day Oral Tablet Take by mouth 1 Tablet in the morning. 0 Active [place]-3 1000 MG Oral Capsule Take 1 Capsule by mouth in the morning. 0 Active FreeStyle Carlos 2 [place] Device Use as directed . Use to test BG E10.65 1 Each 0 02/13/2022 Active FreeStyle Carlos 2 Sensor Use as directed . Use one sensor every 14 days for blood sugar E10.65 1 Each 11 02/13/2022 Active Sodium Bicarbonate 650 MG Oral Tablet Take 1 Tablet by mouth in the morning. 0 08/13/2022 Active Pen [place] 32G X 4 MM Use as directed [...] Hour (toPROL XL)Indications:Cor onary artery disease involving [place] coronary artery of [place] heart without angina pectoris TAKE 1 TABLET BY MOUTH EVERY DAY IN THE MORNING 90 Tablet 3 10/05/2023 Active Prasugrel HCl 10 MG Oral Tablet (Effient)Indicatio ns:Coronary artery disease involving [place] coronary artery of [place] heart without angina pectoris TAKE 1 TABLET BY MOUTH EVERY DAY IN THE MORNING 90 Tablet 3 10/05/2023 Active Atorvastatin Calcium 40 MG Oral Tablet (Lipitor)Indicatio ns:Dyslipidemia, goal LDL below 70 TAKE 1 TABLET BY MOUTH EVERY DAY IN THE MORNING 90 Tablet 3 10/06/2023 Active Juluca 50-25 MG Oral Tablet Take 1 Tablet by mouth daily. 90 Tablet 0 11/03/2023 02/01/2024 Active Juluca 50-25 MG Oral Tablet Take 1 Tablet by mouth daily. 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 05/07/2023 Recurrent major depressive disorder, in full rem ission 05/05/2022 Overweight (BMI 25.0-29.9) 05/02/2022 Dyslipidemia 05/02/2022 Coronary artery disease invo lving [place] coronary artery of [place] heart without angina pectoris 05/02/2022 Type 2 diabetes mellitus wit h hemoglobin A1c goal of less than 8.0% 05/02/2022 Kidney disease, chronic, stage IV (GFR 15-29 ml/ min) 05/02/2022 Old [place] (myocardial infarction) 05/02/2022 Chronic systolic (congestive) heart failure 04/14 Left bundle branch block 05/02/2022 HTN, goal below 130/80 HIV positive documented as of this encounter (statuses as of 11/03/2023) Resolved Problems Problem Noted Date Diagnosed Date Resolved Date Chronic heart failure with p reserved ejection fraction 11/24/2022 02/04/2023 ARDS (adult respiratory distress syndrome) 06/17/2012 05/02/2022 Acute pancreatitis 06/14/2012 Acute respiratory distress 06/14/2012 0 05/02/2022 documented as of this encounter (statuses as of 11/03/2023) Immunizations Name Administration Dates Next Due COVID-19 [...] encounter Miscellaneous Notes * Telephone Encounter - Wayne Sanchez MD - 11/03/2023 5:51 PM EST Signed Prescriptions: Disp Refills Juluca 50-25 MG Oral Tablet 90 Tab*0 Sig: Take 1 Tablet by mouth daily. Authorizing Provider: WAYNE SANCHEZ * Telephone Encounter - Vannessa Flores LPN - 11/03/2023 4:46 PM EST Pending Prescriptions: Disp Refills Juluca 50-25 MG Oral Tablet Sig: Take 1 Tablet by mouth daily. * Telephone Encounter - Tania Suh OSA - 11/03/2023 9:01 AM EST Systems Applications Programming Lead - Patient Related Communication Reason for Call: Refill of non-narcotics (Pharmacy Pool): received call from pharmacy for refill on medication: Juluca 50-25 MG Tablet Pt takes one tablet daily [facility] Specialty Pharm[facility] (Please disregard pharmacy selected-I could not remove-[facility]) MORGAN Arnold documented in this encounter Plan of Treatment Upcoming Encounters Date Type Department Care Team (Late st Contact Info) Description 12/01/2023 9:40 AM EDT Office Visit Infectious Disease [facility] [address] [place] [address] Wayne Sanchez MD [address] [place] [address] 02/22/2024 1:30 PM EDT Office Visit Pharmacy, [facility] [address] [place] [address] [facility] [address] [place] [address] 05/23/2024 10:20 AM EDT Office Visit Nephrology, [facility] [address] [place] [address] Tesfaye oMrris MD [address] [place] [address] Scheduled Procedures Name Priority Associated Diagnoses Date/Ti [...] and were consensually agreed upon. Care Teams Iv Therapy Nurse Relationship Specialty Start Date End Date Antonio Colon MD [address] [place] [address] PCP - General Family Medicine 02/12/22 documented as of this encounter
--- OUTSIDE RECORDS SUMMARY | 2023-12-31 22:20 | External Medical Summary | Summary of Care ---
Author Name Unknown Organization [facility] Address [address] [place] [address] Phone [phone] Care Team Providers Care Track And Field Coach Name Role Phone Antonio Colon MD Primary Care Provider [phone] [phone] Reason for Visit * Reason Onset Date Comments case management 08/31/2023 Need for Appt Encounter Details Date Type Department Care Team (Late st Contact Info) Description 08/31/2023 Telephone Infectious Disease, [place] [address] [place] [address] Savita Lindsay BS case management (Need for Appt) Allergies No known active allergiesdocumented as of [...] 1 Tablet in the morning. 0 Active [place]-3 1000 MG Oral Capsule Take 1 Capsule by mouth in the morning. 0 Active FreeStyle Carlos 2 [place] Device Use as directed . Use to [...] in the morning. 0 08/13/2022 Active Pen [place] 32G X 4 MM Use as directed [...] Oral Tablet (Effient)Indications: Coronary artery disease involving [place] coronary artery of [place] heart without angina pectoris Take 1 Tablet [...] Dyslipidemia 05/02/2022 Coronary artery disease invo lving [place] coronary artery of [place] heart without angina pectoris 05/02/2022 Type 2 [...] 3:05 PM EST CM routing encounter to [place], [facility], to connect with pt to schedule appt with Dr. Asencio. Patient is due for an appointment in September 2023. Appt Type: Return, in person Provider: Luis M Location: Prefers SP or H Time Spent: 15 minutes documented in this encounter Plan of Treatment Upcoming Encounters Date Type Department Care Team (Late st Contact Info) Description 02/22/2024 1:30 PM EDT Office Visit Pharmacy, [facility] [address] [facility] [place] [address] [place] [address] 05/23/2024 10:20 AM EDT Office Visit Nephrology, [facility] [address] [facility] [place] [address] Tesfaye Morris MD [address] [facility] [place] [address] Scheduled Procedures Name Priority Associated Diagnoses Date/Ti [...] and were consensually agreed upon. Care Teams Track And Field Coach Relationship Specialty Start Date End Date Antonio Colon MD [address] [place] [address] PCP - General Family Medicine 02/12/22 documented as of this encounter
--- OUTSIDE RECORDS SUMMARY | 2023-12-31 22:20 | External Medical Summary | Summary of Care ---
Author Name Unknown Organization [facility] Address [address] [place] [address] Phone [phone] Care Team Providers Care Furniture Painter Name Role Phone Antonio Colon MD Primary Care Provider [phone] [phone] Reason for Visit * Reason Comments Dosage Adjustment In Person (Anticoag Cl inic) Diabetes Follow-Up Encounter Details Date Type Department Care Team (Late st Contact Info) Description 08/24/2023 1:30 PM EST Office Visit Pharmacy, [facility] [address] [place] [address] [facility] [address] [address] Type 2 diabetes mellitus with hemoglobin A1c goal of less than 8.0% ([facility])* Allergies No known active allergiesdocumented as of this encounter (statuses as of 08/24/2023) Medications Medication Sig Dispensed Refills Start Date [...] 1 Tablet in the morning. 0 Active [place]-3 1000 MG Oral Capsule Take 1 Capsule by mouth in the morning. 0 Active FreeStyle Carlos 2 [place] Device Use as directed . Use to [...] in the morning. 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 05/07/2023 Recurrent major depressive disorder, in full rem ission 05/05/2022 Overweight (BMI 25.0-29.9) 05/02/2022 Dyslipidemia 05/02/2022 Coronary artery disease invo lving [place] coronary artery of [place] heart without angina pectoris 05/02/2022 Type 2 diabetes mellitus wit h hemoglobin A1c goal of less than 8.0% 05/02/2022 Kidney disease, chronic, stage IV (GFR 15-29 ml/ min) 05/02/2022 Old [place] (myocardial infarction) 05/02/2022 Chronic systolic (congestive) heart failure 04/14 Left bundle branch block 05/02/2022 HTN, goal below 130/80 HIV positive documented as of this encounter (statuses as of 08/24/2023) Resolved Problems Problem Noted Date Diagnosed Date Resolved Date Chronic heart failure with p reserved ejection fraction 11/24/2022 02/04/2023 ARDS (adult respiratory distress syndrome) 06/17/2012 05/02/2022 Acute pancreatitis 06/14/2012 Acute respiratory distress 06/14/2012 0 05/02/2022 documented as of this encounter (statuses as of 08/24/2023) Immunizations Name Administration Dates Next Due COVID-19 [...] on file documented as of this encounter Progress Notes * Abi Massey, [facility] - 08/24/2023 1:33 PM EST Medication Therapy Disease Management Clinic - Diabetes Management Progress Note Tad Silvestre, identified by name and date of , is a 68 year old male being seen for diabetes management/education. Patient presents for return diabetic visit. DIABETES: Current diabetic medications: Novolog 8 units plus 1:25 over 150 Basaglar 22 units daily Medication Injection Site: Abdomen Lifestyle: Diet: unchanged Glucose Review/SMBG: Readings per patient memory/recall: Patient is currently testing 0-1 times a day Hypoglycemia: Does your blood sugar go below 70 mg/dL? No Hyperglycemia symptoms present: none Recent Labs Units 05/07/23 1216 08/12/22 1509 HEMOGLOBIN A1C - [facility] % 9.5* 8.7* Recent Labs Units 08/12/23 1401 05/07/23 1216 08/12/22 1509 ESTIMATED GLOMERULAR FILTRATION RATE - [facility] mL/min 24* 22* 21* CREATININE - [facility] mg/dL 2.7* 2.9* 3.1* HYPERTENSION: Patient on ACEi/ARB: no, not indicated due to renal function BP Readings from Last 3 Encounters: 08/12/23 135/80 05/07/23 122/74 02/04/23 124/75 Blood pressure at goal: yes HYPERLIPIDEMIA: Patient is taking moderate or high intensity statin: yes HEALTH MAINTENANCE REVIEW: Health Maintenance Due Topic Date Due Depression Screening Never done Diabetic Eye Exam Never done Zoster Vaccines (1 of 2) Never done Hepatitis B (2 of 3 - Risk 3-dose series) 09/22/2017 Pneumococcal Vaccine: 65+ Years (3 - PPSV23 or PCV20) 08/21/2019 MENINGOCOCCAL (MENACTRA/MENVEO) (3 - Risk 2-dose series) 08/04/2022 COVID-19 Vaccine ( - season) 2023 Nephrology Referral 08/12/2023 ASSESSMENT & PLAN: BG Readings - Blood sugars uncontrolled. A1c of 9.5%. Medications - Reviewed current regimen, patient is adherent to regimen. Patient would like to continue current regimen as he is feeling pretty good and would like to work on diet/lifestyle. Working with nutrition on changes. Diet, Exercise, Lifestyle - patient trying to eat more balanced meals and avoid sugar . Discussed with patient . Patient is agreeable to CGM Patient aware to contact clinic if any hypoglycemia before next visit. MEDICATION CHANGES: no change Diabetic Medications: Novolog 8 units plus 1:25 over 150 Basaglar 22 units daily HEALTH MAINTENANCE INTERVENTIONS: Labs: Up to Date Immunizations: Up to Date Foot Exam: Up to Date Eye Exam: Up to Date Annual Wellness Visit: Up to Date FOLLOW UP: Return to clinic in 6 months 08/31/2023 Abi Massey [facility] Clinical Pharmacist - Mri Technician Medication Therapy Management Clinic 08/24/2023, 1:33 PM documented in this encounter Plan of Treatment Upcoming Encounters Date Type Department Care Team (Late st Contact Info) Description 02/22/2024 1:30 PM EDT Office Visit Pharmacy, [facility] [address] [facility] [place] [address] [facility] [address] [place] [address] 05/23/2024 10:20 AM EDT Office Visit Nephrology, [facility] [address] [place] [address] Tesfaye Morris MD [address] [facility] [place] [address] Scheduled Procedures Name Priority Associated Diagnoses Date/Ti [...] as of this encounter Visit Diagnoses Diagnosis Type 2 diabetes mellitus with hemoglobin A1c goal of less than 8.0% (HCC)- Primary documented in this encounter Advance Directives Latest Code Status on File Code Status Date Activated Date Inactivated Comments Full Code 06/14/2012 6:26 PM 06/17/2012 7:43 PM This order reflects the patients wishes and were consensually agreed upon. Care Teams Furniture Painter Relationship Specialty Start Date End Date Antonio Colon MD [address] [place] [address] PCP - General Family Medicine 02/12/22 documented as of this encounter
--- OUTSIDE RECORDS SUMMARY | 2023-12-31 22:20 | External Medical Summary | Summary of Care ---
Author Name Unknown Organization [facility] Address [address] [facility] [place] [address] Phone [phone] Care Team Providers Care Nail Maker Name Role Phone Abimael Us MD Primary Care Provider [phone] [phone] Reason for Visit * Reason Comments eRx-Medication Refill Encounter Details Date Type Department Care Team (Late st Contact Info) Description 09/08/2023 Refill Family Practice [facility] [address] [place] [address] Abimael Us MD [address] [place] [address] ST elevation (STEMI) myocardial infarction involving left circumflex coronary artery (HCC) Allergies No known active allergiesdocumented as of this encounter (statuses as of 10/20/2023) Medications Medication Sig Dispensed Refills Start Date End Date Status Co Q 10 10 MG Oral Capsule Take by mouth 1 Caplet Dosing Unit daily . 0 Active Aspirin 81 MG Oral Capsule Take by mouth 1 Caplet Dosing Unit daily . 0 Active Multi-Day Oral Tablet Take by mouth 1 Tablet in the morning. 0 Active [place]-3 1000 MG Oral Capsule Take 1 Capsule by mouth in the morning. 0 Active FreeStyle Carlos 2 [place] Device Use as directed . Use to test BG E10.65 1 Each 0 02/13/2022 Active FreeStyle Carlos 2 Sensor Use as directed . Use one sensor every 14 days for blood sugar E10.65 1 Each 11 02/13/2022 Active Sodium Bicarbonate 650 MG Oral Tablet Take 1 Tablet by mouth in the morning. 0 08/13/2022 Active Pen [place] 32G X 4 MM Use as directed [...] mouth in the morning. 0 3 Discontinued Calcitriol 0.5 MCG Oral Capsule (Rocaltrol)Indicat ions:CKD (chronic kidney disease) stage 4, GFR 15-29 ml/min ([facility]) Take 1 Capsule (0.5 mcg) by mouth in the morning. 90 Capsule 5 08/12/2022 4 Discontinued Atorvastatin Calcium 40 MG Oral Tablet (Lipitor)Indicatio ns:Dyslipidemia, goal LDL below 70 Take 1 Tablet by mouth in the morning. 90 Tablet 3 09/30/2022 4 Discontinued Prasugrel HCl 10 MG Oral Tablet (Effient)Indicatio ns:Coronary artery disease involving tribe coronary artery of tribe heart without angina pectoris Take 1 Tablet by mouth in the morning. 90 Tablet 3 09/30/2022 4 Discontinued Metoprolol Succinate ER 25 MG Oral Tablet Extended Release 24 Hour (Toprol XL) Take 1 Tablet by mouth in the morning. 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 05/07/2023 Recurrent major depressive disorder, in full rem ission 05/05/2022 Overweight (BMI 25.0-29.9) 05/02/2022 Dyslipidemia 05/02/2022 Coronary artery disease invo lving tribe coronary artery of tribe heart without angina pectoris 05/02/2022 Type 2 diabetes mellitus wit h hemoglobin A1c goal of less than 8.0% 05/02/2022 Kidney disease, chronic, stage IV (GFR 15-29 ml/ min) 05/02/2022 Old [place] (myocardial infarction) 05/02/2022 Chronic systolic (congestive) heart failure 04/14 Left bundle branch block 05/02/2022 HTN, goal below 130/80 HIV positive documented as of this encounter (statuses as of 10/20/2023) Resolved Problems Problem Noted Date Diagnosed Date Resolved Date Chronic heart failure with p reserved ejection fraction 11/24/2022 02/04/2023 ARDS (adult respiratory distress syndrome) 06/17/2012 05/02/2022 Acute pancreatitis 06/14/2012 Acute respiratory distress 06/14/2012 0 05/02/2022 documented as of this encounter (statuses as of 10/20/2023) Immunizations Name Administration Dates Next Due COVID-19 [...] encounter Miscellaneous Notes * Telephone Encounter - Jesenia Ngo PHARM Tech - 10/20/2023 2:03 PM EST Pt calling to request fluoxetine. Informed pt that RX is available at their pharmacy. Pt verbalizedunderstanding and stated they will check with their pharmacy regarding this medication. Thank You, Jesenia Ngo, [facility] Technology Architect II [facility] ([facility]) (Formerly Telepharmacy) 10/20/2023, 2:03 PM * Telephone Encounter - Abimael Us MD - 09/08/2023 4:28 PM ESTSigned Prescriptions: Disp Refills FLUoxetine HCl 20 MG Oral Capsule (PROzac) 90 Cap*1 Sig: TAKE 1 CAPSULE BY MOUTH EVERY DAY Authorizing Provider: ABIMAEL US * Telephone Encounter - Lise Tellez, [facility] - 09/08/2023 3:15 PM EST Pending Prescriptions: Disp Refills FLUoxetine HCl 20 MG Oral Capsule [Pharmac*90 Cap*1 Sig: TAKE 1 CAPSULE BY MOUTH EVERY DAY * Telephone Encounter - Lise Tellez RPh - 09/08/2023 3:15 PM EST Pharmacists cannot [...] date the medication was ordered: historical Pharmacy: [id number] [address] [facility] Is this request for a controlled substance?No [...] HGBA1C 7.4 (H) 10/02/2020 03:48 PM Lise Sahu, PharmD Clinical Pharmacist [facility] ([facility]) (formerly Telepharmacy) [phone] 09/08/2023,3:15 PM documented in this encounter Plan of Treatment Upcoming Encounters Date Type Department Care Team (Late st Contact Info) Description 12/01/2023 9:40 AM EDT Office Visit Infectious Disease [facility] [address] [facility] [place] [address] Shirley Asencio MD [address] [place] [address] 02/22/2024 1:30 PM EDT Office Visit Pharmacy, [facility] [address] [place] [address] [facility] [address] [place] [address] 05/23/2024 10:20 AM EDT Office Visit Nephrology, [facility] [address] [place] [address] Tesfaye Morris MD [address] [place] [address] Scheduled Procedures Name Priority Associated Diagnoses Date/Ti [...] and were consensually agreed upon. Care Teams Nail Maker Relationship Specialty Start Date End Date Abimael Us MD [address] [place] [address] PCP - General Family Medicine 02/12/22 documented as of this encounter
--- OUTSIDE RECORDS SUMMARY | 2023-12-31 22:20 | External Medical Summary | Summary of Care ---
Author Name Unknown Organization [facility] Address [address] [place] [address] Phone [phone] Care Team Providers Care Turner Machine Name Role Phone Antonio Colon MD Primary Care Provider [phone] [phone] Reason for Visit * Reason Comments eRx-Medication Refill Encounter Details Date Type Department Care Team (Late st Contact Info) Description 10/06/2023 Refill Cardiology, [facility] [address] [place] [address] Davy Mota MD [address] [place] [address] Dyslipidemia, goal LDL below 70 Allergies No known active allergiesdocumented as of [...] 1 Tablet in the morning. 0 Active [place]-3 1000 MG Oral Capsule Take 1 Capsule by mouth in the morning. 0 Active FreeStyle Carlos 2 [place] Device Use as directed . Use to test BG E10.65 1 Each 0 02/13/2022 Active FreeStyle Carlos 2 Sensor Use as directed . Use one sensor every 14 days for blood sugar E10.65 1 Each 11 02/13/2022 Active Sodium Bicarbonate 650 MG Oral Tablet Take 1 Tablet by mouth in the morning. 0 08/13/2022 Active Pen [place] 32G X 4 MM Use as directed [...] kidney disease) stage 4, GFR 15-29 ml/min ([facility]) TAKE 1 CAPSULE (0.5 MCG) BY MOUTH IN THE MORNING. 90 Capsule 5 09/15/2023 Active Metoprolol Succinate ER 25 MG Oral Tablet Extended Release 24 Hour (toPROL XL)Indications:Cor onary artery disease involving [place] coronary artery of [place] heart without angina pectoris TAKE 1 TABLET BY MOUTH EVERY DAY IN THE MORNING 90 Tablet 3 10/05/2023 Active Prasugrel HCl 10 MG Oral Tablet (Effient)Indicatio ns:Coronary artery disease involving [place] coronary artery of [place] heart without angina pectoris TAKE 1 TABLET BY MOUTH EVERY DAY IN THE MORNING 90 Tablet 3 10/05/2023 Active Atorvastatin Calcium 40 MG Oral Tablet (Lipitor)Indicatio ns:Dyslipidemia, goal LDL below 70 TAKE 1 TABLET BY MOUTH EVERY DAY IN THE MORNING 90 Tablet 3 10/06/2023 Active Atorvastatin Calcium 40 MG Oral Tablet [...] Dyslipidemia 05/02/2022 Coronary artery disease invo lving [place] coronary artery of [place] heart without angina pectoris 05/02/2022 Type 2 diabetes mellitus wit h hemoglobin A1c goal of less than 8.0% 05/02/2022 Kidney disease, chronic, stage IV (GFR 15-29 ml/ min) 05/02/2022 Old [place] (myocardial infarction) 05/02/2022 Chronic systolic (congestive) heart [...] encounter Miscellaneous Notes * Telephone Encounter - Ann Carbajal CRNP - 10/06/2023 8:48 AM EST Signed Prescriptions: Disp Refills Atorvastatin Calcium 40 MG Oral Tablet (Li*90 Tab*3 Sig: TAKE 1 TABLET BY MOUTH EVERY DAY IN THE MORNINGAuthorizing Provider: ANN CARBAJAL * Telephone Encounter - Kylee Mayer COT - 10/06/2023 8:47 AM ESTPending Prescriptions: Disp Refills Atorvastatin Calcium 40 MG Oral Tablet [Ph*90 Tab*3 Sig: TAKE 1 TABLET BY MOUTH EVERY DAY IN THE MORNING * Telephone Encounter - Kylee Mayer COT - 10/06/2023 8:47 AM EST Did you pend patient's preferred pharmacy and medication before forwarding?yes Pharmacy: [id number] [address] [place] [address] Pending Prescriptions: Disp Refills Atorvastatin Calcium 40 MG Oral Tablet (L*90 Tab*3 Sig: TAKE 1 TABLET BY MOUTH EVERY DAY IN THE MORNING Last Visit: 09/30/2022 (in office), Visit date not found (telemedicine) Next Visit: Visit date not found If no future appointments scheduled, and last appointment is greater than a year ago, please schedule patient for a follow-up appointment Last date the medication was ordered: 09-30-2022 Is this request for a controlled substance?No [...] 9:40 AM EDT Office Visit Infectious Disease [facility] [place] [address] [place] [address] Shirley [facility]encio MD [address] [facility] [place] [address] 02/22/2024 1:30 PM EDT Office Visit Pharmacy, [facility] [address] [place] [id number] [facility] Jacqui [address] [facility] [place] [address] 05/23/2024 10:20 AM EDT Office Visit Nephrology, Madeline Sn[facility] [address] [place] [address] Tesfaye Morris MD [address] [place] [address] Scheduled Procedures Name Priority Associated Diagnoses Date/Ti [...] as of this encounter Visit Diagnoses Diagnosis Dyslipidemia, goal LDL below 70 Other and unspecified hyperlipidemia documented in this encounter Advance Directives Latest Code Status on File Code Status Date Activated Date Inactivated Comments Full Code 06/14/2012 6:26 PM 06/17/2012 7:43 PM This order reflects the patients wishes and were consensually agreed upon. Care Teams Turner Machine Relationship Specialty Start Date End Date Antonio Colon MD [address] [place] [address] PCP - General Family Medicine 02/12/22 documented as of this encounter
--- OUTSIDE RECORDS SUMMARY | 2023-12-31 22:20 | External Medical Summary | Summary of Care ---
Author Name Unknown Organization [facility] Address [address] [place] [address] Phone [phone] Care Team Providers Care Special Police Name Role Phone Antonio Colon MD Primary Care Provider [phone] [phone] Reason for Visit * Reason Comments Outpatient Testing Encounter Details Date Type Department Care Team (Late st Contact Info) Description 12/01/2023 10:30 AM EDT Laboratory Laboratory [facility] [place] [address] [place] [id number] [place] [address] [facility] [place] [address] Arrived Allergies No known active allergiesdocumented as of [...] 1 Tablet in the morning. 0 Active [place]-3 1000 MG Oral Capsule Take 1 Capsule by mouth in the morning. 0 Active FreeStyle Carlos 2 [place] Device Use as directed . Use to test BG E10.65 1 Each 0 02/13/2022 Active FreeStyle Carlos 2 Sensor Use as directed . Use one sensor every 14 days for blood sugar E10.65 1 Each 11 02/13/2022 Active Sodium Bicarbonate 650 MG Oral Tablet Take 1 Tablet by mouth in the morning. 0 08/13/2022 Active Pen [place] 32G X 4 MM Use as directed [...] Hour (toPROL XL)Indications:[place] artery disease involving [place] coronary artery of [place] heart without angina pectoris TAKE 1 TABLET BY MOUTH EVERY DAY IN THE MORNING 90 Tablet 3 10/05/2023 Active Prasugrel HCl 10 MG Oral Tablet (Effient)Indications: Coronary artery disease involving [place] coronary artery of [place] heart without angina pectoris TAKE 1 TABLET BY MOUTH EVERY DAY IN THE MORNING 90 Tablet 3 10/05/2023 Active Atorvastatin Calcium 40 MG Oral Tablet (Lipitor)Indications: Dyslipidemia, goal LDL below 70 TAKE 1 TABLET BY MOUTH EVERY DAY IN THE MORNING 90 Tablet 3 10/06/2023 Active [place] 50-25 MG Oral Tablet Take 1 Tablet by mouth daily. 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 05/07/2023 Recurrent major depressive disorder, in full rem ission 05/05/2022 Overweight (BMI 25.0-29.9) 05/02/2022 Dyslipidemia 05/02/2022 Coronary artery disease invo lving [place] coronary artery of [place] heart without angina pectoris 05/02/2022 Type 2 diabetes mellitus wit h hemoglobin A1c goal of less than 8.0% 05/02/2022 Kidney disease, chronic, stage IV (GFR 15-29 ml/ min) 05/02/2022 Old [place] (myocardial infarction) 05/02/2022 Chronic systolic (congestive) heart [...] 30 Mcg, IM, 12 yrs and above (Space Monkey) 09/09/2022 Hepatitis B, 20+ yrs 08/25/2017 Meningococcal [...] on file documented as of this encounter Plan of Treatment Upcoming Encounters Date Type Department Care Team (Late st Contact Info) Description 02/22/2024 1:30 PM EDT Office Visit Pharmacy, [facility]ida Vazquez [address] [facility] [place] [address] [facility] [place] [address] [facility] [place] [address] 05/23/2024 10:20 AM EDT Office Visit Nephrology, Madeline Sn[facility] [address] [place] [address] Tesfaye Morris MD [address] [place] [address] Scheduled Procedures Name Priority Associated Diagnoses Date/Ti [...] Foot Exam 11/25/2023 11/24/2022 GFR 02/10/2024 08/12/2023, 08/01/2023, 08/12/2022, Additional history exists COLONOSCOPY-ANNUAL AGES 18-100 [...] and were consensually agreed upon. Care Teams Special Police Relationship Specialty Start Date End Date Antonio Colon MD [address] [place] [address] PCP - General Family Medicine 02/12/22 documented as of this encounter
--- OUTSIDE RECORDS SUMMARY | 2023-12-31 22:21 | External Medical Summary | Summary of Care ---
Author Name Unknown Organization [facility] Address [address] [place] [address] Phone [phone] Care Team Providers Care Warehouse Checker Name Role Phone Antonio Colon MD Primary Care Provider [phone] Reason for Visit * Reason Onset Date Comments Chronic Kidney Disease (CKD) Medication Administration 08/12/2023 Flu an d/or Pneumo Inj Encounter Details Date Type Department Care Team (Late st Contact Info) Description 08/12/2023 1:00 PM EST Office Visit Nephrology, Norris Snider [address] [facility] [place] [address] ZemaitisShirley PA-C [address] [facility] [place] [address] Kidney disease, chronic, stage IV (GFR 15-29 ml/min) ([facility])*; Hyperkalemia; HTN, goal below 130/80; Nephrolithiasis; Type 2 diabetes mellitus with hemoglobin A1c goal of less than 8.0% ([facility]); Need for prophylactic vaccination and inoculation against influenza; HIV positive ([facility]) Allergies No known active allergiesdocumented as of [...] 1 Tablet in the morning. 0 Active Toledo-3 1000 MG Oral Capsule Take 1 Capsule by mouth in the morning. 0 Active FreeStyle Carlos 2 Hazard Device Use as directed . Use to [...] in the morning. 0 08/13/2022 Active Pen Paterson 32G X 4 MM Use as directed [...] Oral Tablet (Effient)Indications: Coronary artery disease involving sun'aq coronary artery of sun'aq heart without angina pectoris Take 1 Tablet [...] Dyslipidemia 05/02/2022 Coronary artery disease invo lving sun'aq coronary artery of sun'aq heart without angina pectoris 05/02/2022 Type 2 diabetes mellitus wit h hemoglobin A1c goal of less than 8.0% 05/02/2022 Kidney disease, chronic, stage IV (GFR 15-29 ml/ min) 05/02/2022 Old AL (myocardial infarction) 05/02/2022 Chronic systolic (congestive) heart [...] Former Cigarettes 0.3 30 Smokeless Tobacco: Never Tobacco Cessation:Counseling Given: Not Answered Alcohol Use Standard Drinks/Week Comments Yes 11.7 [...] Sign Reading Time Taken Comments Blood Pressure 135/80 08/12/2023 1:14 PM EST Pulse 79 08/12/2023 1:14 PM EST Temperature 35.6 C (96 F) 08/12/2023 1:14 PM EST Respiratory Rate 18 08/12/2023 1:14 PM EST Oxygen Saturation 96% 08/12/2023 1:14 PM EST Inhaled Oxygen Concentration - - Weight 83 kg (183 lb) 08/12/2023 1:14 PM EST Height - - Body Mass Index 27.02 08/02/2023 3:45 PM EST documented in this encounter Patient Instructions * Patient Instructions* Any Fraser RN - 08/12/2023 1:14 PM EST ~~PATIENT INSTRUCTIONS FOR FLU SHOT~~ Possible side effects of influenza vaccine, (flu shot), are usually mild and include: 1. Soreness or redness at injection site 2. Low grade fever 3. Body aches You may use Tylenol/Acetaminophen as needed for these symptoms. LET YOUR DOCTOR KNOW IMMEDIATELY IF YOU HAVE DIFFICULTY BREATHING OR SWALLOWING, EXPERIENCE ITCHINGOF FEET OR HANDS, HAVE SWELLING OF EYES, FACE OR INSIDE OF NOSE. documented in this encounter Progress Notes * Any Fraser RN - 08/12/2023 1:14 PM EST PRE - ADMINISTRATION DOCUMENTATION Are you experiencing any cold symptoms or fever? No Have you had Guillain-Cherokee Syndrome (an illness that causes paralysis) within the last 6 weeks? No Have you had the flu shot in the past? YES Have you ever had a reaction to the flu shot? Gilda Fraser RN, 08/12/2023 1:14 PM Immunization Administration Documentation Time Out Procedure Performed: Yes Patient Identified (Ask Name/Date of ): Yes Does the patient have a fever greater than 101 degrees today? No Patient allergic to latex? No VFC Stock: No Immunization(s) verified: Yes, Immunization Name: Flu, VIS Sheet(s) given: Yes Injection(s) verified: Yes, Injection Name: flu Verified Side and Site: Yes Verified Shot(s) with Parent(s)/Patient: Yes * Shirley Roche PA-C - 08/12/2023 1:00 PM EST Chief Complaint Patient presents with Chronic Kidney Disease (CKD) Medication Administration Flu and/or Pneumo Inj SUBJECTIVE: HPI:Patient is a 68 year old male with CKD 4 .Moved to the area from [facility] and was followed by Dr. Rodriguez publications production supervisor before. Creatinine has been in the 3 and the 4 range before and is already been evaluated for transplant at [facility] in [facility]. Other medical problems includes HIV positive for 30+ years but his viral count is negative and has had no real complications with this. Also has history of pancreatitis multiple times in the past and that has led to diabetes for whichhe does take insulin--diabetes is not controlled. Was admitted in hospital December 2021 for chest pain which was felt to be noncardiac. At this time denies any acute complaints Since last visit 08/12/22-Denies any recent hospitalizations, procedures or infections. Spring 2022 syncopal episode and spent 1 night at [facility] Reports still on transplant list with [facility] needs to have stress testing completed through Cards . EKG recently completed. Sees GI in [place] for pre-cancerous cells recent appt showed advancement - procedure completed approx several wks ago and to fu in November Follows with [facility] clinic for DM control NSAID No. Tylenol or topical rub Renal Stone No Herbal Medication: Mv, Vit d, omega fatty acids, Coq10 HISTORY: Current Outpatient Medications Medication Sig Dispense Refill Co Q 10 10 MG Oral Capsule Take by mouth 1 Caplet Dosing Unit daily . FLUoxetine HCl 20 MG Oral Capsule Take 1 Capsule by mouth in the morning. Aspirin 81 MG Oral Capsule Take by mouth 1 Caplet Dosing Unit daily . Multi-Day Oral Tablet Take by mouth 1 Tablet in the morning. Toledo-3 1000 MG Oral Capsule Take 1 Capsule by mouth in the morning. Calcitriol 0.5 MCG Oral Capsule (Rocaltrol) Take 1 Capsule (0.5 mcg) by mouth in the morning. 90 Capsule 5 Sodium Bicarbonate 650 MG Oral Tablet Take 1 Tablet by mouth in the morning. Vitamin D-3 25 MCG (1000 UT) Oral Capsule Take 1 Capsule by mouth in the morning. Atorvastatin Calcium 40 MG Oral Tablet (Lipitor) Take 1 Tablet by mouth in the morning. 90 Tablet 3 Prasugrel HCl 10 MG Oral Tablet (Effient) Take 1 Tablet by mouth in the morning. 90 Tablet 3 Metoprolol Succinate ER 25 MG Oral Tablet Extended Release 24 Hour (Toprol XL) Take 1 Tablet by mouth in the morning. 90 Tablet 3 Basaglar KwikPen 100 UNIT/ML Subcutaneous Solution Pen-injector (Insulin Glargine Solostar) INJECT UNDER THE SKIN 22 UNITS IN THE MORNING. 30 mL 1 NovoLOG FlexPen 100 UNIT/ML Subcutaneous Solution Pen-injector (insulin aspart) INJECT 10 UNITS THREE TIMES A DAY WITH MEALS or as directed 15 mL 5 Juluca 50-25 MG Oral Tablet Take 1 Tablet by mouth daily. FreeStyle Carlos 2 Hazard Device Use as directed . Use to test BG E10.65 1 Each 0 FreeStyle Carlos 2 Sensor Use as directed . Use one sensor every 14 days for blood sugar E10.65 1 Each 11 Pen Paterson 32G X 4 MM Use as directed . Use to inject insulin 4 times daily E11.9 200 Each 5 No current facility-administered medications for this visit. 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 05/07/2023 HIV positive ([facility]) Hypertension Kidney disease, chronic, stage IV (GFR 15-29 ml/min) ([facility]) 05/02/2022 Left bundle branch block 05/02/2022 Old AL (myocardial infarction) 05/02/2022 Overweight (BMI 25.0-29.9) 05/02/2022 Recurrent major depressive disorder, in full remission ([facility]) 05/05/2022 Systolic and diastolic CHF, chronic ([facility]) 05/02/2022 Type 2 diabetes mellitus with hemoglobin A1c goal of less than 8.0% ([facility]) 05/02/2022 Past Surgical History: Procedure Laterality Date COLONOSCOPY, DIAGNOSTIC (RECTUM) N/A 02/19/2023 poor prep/nodular mucosa ascending colon/hemorrhoids/biopsies show adenomatous polyps, mild active inflammation/recall 1 year/Colonoscopy/MN NONE Family History Problem Relation Age of Onset No Past Hx Father Heart Disorder Mother Neurological Disorder Mother Parkinson's, Alzheimer's Social History Socioeconomic History Marital status: Single Spouse name: Not on file Number of children: Not on file Years of education: Not on file Highest education level: Not on file Occupational History Not on file Tobacco Use Smoking status: Former Packs/day: 0.25 Years: 30.00 Additional pack years: 0.00 Total pack years: 7.50 Types: Cigarettes Smokeless tobacco: Never Vaping Use Vaping Use: Never used Substance and Sexual Activity Alcohol use: Yes Alcohol/week: 11.7 standard drinks of alcohol Types: 14 5 oz of wine per week Drug use: No Sexual activity: Not on file Other Topics Concern Not on file Social History Narrative Not on file Social Determinants of Health Financial Resource Strain: Not on file Food Insecurity: Not on file Transportation Needs: Not on file Physical Activity: Not on file Stress: Not on file Social Connections: Not on file Intimate Partner Violence: Not on file Housing Stability: Not on file Ambulation: Without assisted device REVIEW OF SYSTEMS General: No fatigue, No change in weight Head: No significant headache Respiratory: No cough,No wheezing, No shortness of breath Cardiovascular:No chest pain, No palpitations, and + syncope- single bout spring 2022 dehydration Gastrointestinal: No nausea, vomiting, diarrhea No blood in stools Urinary: No dysuira, No hematuria. No flank pain Musculoskeletal: +muscle/joint pains-hip pain , No edema Skin: No itching All other systems were reviewed and were negative. OBJECTIVE: BP 135/80 (BP Site: Right Arm, BP Position: Sitting, BP Cuff Size: Regular) | Pulse 79 | Temp 35.6C (96 F) | Resp 18 | Wt 83 kg (183 lb) | SpO2 96% | BMI 27.02 kg/m | BSA 2.01 m Wt Readings from Last 1 Encounters: 08/12/23 83 kg (183 lb) General appearance: alert, no apparent distress. HEAD: Normocephalic, No masses, lesions, tenderness Respiratory: clear to auscultation, no rhonchi, no wheezes, and no crackles Heart: regular rate and regular rhythm Abdomen: abdomen soft, non-tender, and no CVA tenderness EXTREMITIES: no edema, Skin: skin color, texture, turgor are normal NEURO: alert & oriented x 3 with fluent speech, no focal motor/sensory deficits No tremor Patient is a reliable historian of events Last 4 BP Readings: BP Readings from Last 4 Encounters: 08/12/23 135/80 05/07/23 122/74 02/04/23 124/75 11/24/22 128/74 Last 3 Weights: Wt Readings from Last 3 Encounters: 08/12/23 83 kg (183 lb) 08/02/23 83.6 kg (184 lb 3.2 oz) 05/07/23 82.1 kg (181 lb) Estimated body mass index is 27.02 kg/m as calculated from the following: Height as of 08/02/23: 1.753 m (5' 9"). Weight as of this encounter: 83 kg (183 lb). LABS: Latest Reference Range & Units 01/13/22 11:29 01/16/22 10:48 05/07/22 16:25 06/09/22 14:12 08/12/22 15:09 05/07/23 12:16 Sodium 135 - 146 mmol/L 132 (L) 135 138 136 139 134 (L) Potassium 3.5 - 5.1 mmol/L 4.8 4.6 3.9 5.2 (H) 4.5 5.6 (H) Chloride 98 - 107 mmol/L 99 102 107 104 107 104 CO2 22 - 32 mmol/L 21 (L) 21 (L) 22 20 (L) 18 (L) 20 (L) BUN 6 - 20 mg/dL 50 (H) 44 (H) 40 (H) 54 (H) 42 (H) 38 (H) Creatinine 0.6 - 1.2 mg/dL 3.2 (H) 3.1 (H) 3.3 (H) 3.2 (H) 3.1 (H) 2.9 (H) Estimated Glomerular Filtration Rate >=60 mL/min 21 (L) 22 (L) 20 (L) 20 (L) 21 (L) 22 (L) Anion Gap 7 - 15 mmol/L 12 12 9 12 14 10 Glucose 70 - 120 mg/dL 474 (H) 194 (H) 188 (H) 215 (H) 265 (H) 299 (H) Calcium 8.4 - 10.2 mg/dL 9.3 9.4 9.3 9.9 8.8 9.8 (L): Data is abnormally low (H): Data is abnormally high Latest Reference Range & Units 01/13/22 11:29 05/07/22 16:27 08/12/22 15:11 05/07/23 12:16 Albumin / Creatinine Ratio, Urine <30 mg/g Creat 195 (H) 203 (H) ALBUMIN / CREATININE RATIO, URINE Rpt ! Rpt ! Protein/ Creatinine Ratio, Urine <150 mg/g 620 (H) 892 (H) PROTEIN/ CREATININE RATIO, URINE Rpt ! Rpt ! (H): Data is abnormally high !: Data is abnormal Rpt: View report in Results Review for more information IMAGING: EXAM US RENAL-01/21/2022 11:34 am HISTORY stage IV CKD COMPARISON None. TECHNIQUE Real time sonographic imaging of the kidneys. FINDINGS RIGHT KIDNEY: 11.7 cm x 5.1 cm x 5.3 cm Normal in size and increased echogenicity. 5 mm lower pole calculus. Lower renal cyst measuring up to 33 mm. No solid masses. No hydronephrosis. LEFT KIDNEY: 9.8 cm x 4.8 cm x 4.1 cm Normal in size and increased echogenicity. Multiple cysts, the largest in the upper pole measuring up to 18 mm. No solid masses. No shadowing calculi. No hydronephrosis. BLADDER: Partially distended. AORTA: The aorta is not visualized. IMPRESSION IMPRESSION Echogenic kidneys consistent with medical renal disease. Bilateral cysts. Nonobstructive right nephrolithiasis. ASSESSMENT/PLAN: The patient's most recent labs (from 3 months ago) were reviewed and the assessment/plan is as follows: Longstanding CKD stage 4 and has been seeing publications production supervisor for many years when he was living in the [facility]. CKD likley attributed to combination of factors including hypertension diabetes recurrent pancreatitis HIV medication. Volume status and chemistries look well. Albuminuria levels slightly elevated which could be likely due to poor glycemic controlDid not have renal biopsy per prev note it is not advised. He has already been started with the renal replacement therapy education program. Previously he said he would do home peritoneal dialysis if such need arise. Currently with [facility] in [facility] for possible renal transplant. Risk of ESRD is high within the next few years. Kidney disease, chronic, stage IV (GFR 15-29 ml/min) ([facility]) (Primary) - RENAL FUNCTION PANEL; Standing - PTH; Future; Expected date: 08/12/2023 - 25-HYDROXY VITAMIN D; Future; Expected date: 08/12/2023 - PHOSPHORUS; Future; Expected date: 08/12/2023 Hyperkalemia Elevated with last exam to 5.6. will repeat testing today and monitor HTN, goal below 130/80 Slightly elevated today with visit. Advised to monitor - RENAL FUNCTION PANEL; Standing Nephrolithiasis Nonobstructive right nephrolithiasis noted with US in 01/2022. Push fluids 80-100 oz daily. Type 2 diabetes mellitus with hemoglobin A1c goal of less than 8.0% ([facility]) Tighter glycemic control advise hemoglobin A1c 9.5 HIV positive ([facility]) He has had this for 30+ years but is well compensated and has not had any major complication. Need for prophylactic vaccination and inoculation against influenza - INFLUENZA VACC, QUAD, HIGH DOSE (FLUZONE HD) Labs placed for assessment given renal function should be completed every 3 months No changes to meds Patient advised to monitor blood pressure and blood sugars Avoid medicines like aleve, advil, ibuprofen, aspirin more than 81 mg daily and other NSAIDS which are not good for kidney patients. Take only tylenol (acetaminophen) up to 2000 mg daily as needed for pain or as directed by your primary care provider. Reviewed previous status of kidney function and goals of care. All questions were answered. Check-out note: 4 months with [facility] Due for labs ANTHONY Esqueda [address] documented in this encounter Nursing Notes * Any Fraser, RN - 08/12/2023 1:16 PM EST Follow up visit today for CKD 4. No recent illness or hospital stays. documented in this encounter Plan of Treatment Upcoming Encounters Date Type Department Care Team (Late st Contact Info) Description 08/31/2023 6:10 PM EST Pharmacy Pharmacy, [facility] [address] [facility] [place] [address] [facility] [address] [facility] [place] [address] 05/23/2024 10:20 AM EDT Office Visit Nephrology, Norris Snider [address] [place] [address] Tesfaye Morris MD [address] [place] [address] Scheduled Orders Name Type Priority Associated Diagnoses Orde r Schedule RENAL FUNCTION PANEL Lab Routine Kidney disease, chronic, stage IV (GFR 15-29 ml/min) (HCC) HTN, goal below 130/80 Every 3 Months for 3 Occurrences starting 08/12/2023 until 08/12/2024, 1 completed Scheduled Procedures Name Priority Associated Diagnoses Date/Ti [...] Not on filedocumented as of this encounter Results * 25-HYDROXY VITAMIN D (08/12/2023 2:01 PM EST) 25-Hydroxy Vitamin D 29 >19 ng/mL 08/12/2023 11:37 PM EST [facility] Blood Venous blood specimen / Unknown Venipuncture / Unknown 08/12/2023 2:01 PM EST 08/12/2023 2:01 PM EST Narrative [facility] - 08/12/2023 11:37 PM EST Deficient: <20 ng/mL Insufficient: 20-29 ng/mL Recommended/Optimum:30-50 ng/mL Vitamin D intoxication is rare. If suspicious of Vitamin D toxicity, evaluation of serum Calcium and PTH is recommended. Shirley Roche PA-C LAB BLOOD ORD ERABLES Performing Organization Address City/[facility]/ZIP Co de Phone Number LAB[facility]ATORY [place] [address] [place] [address] * (ABNORMAL) PTH (08/12/2023 2:01 PM EST) PTH 140(H) 15 - 65 pg/mL 08/12/2023 11:37 PM EST [facility] Blood Venous blood specimen / Unknown Venipuncture / Unknown 08/12/2023 2:01 PM EST 08/12/2023 2:01 PM EST Shirley Roche PA-C LAB BLOOD ORD ERABLES [facility] [place] [address] [place] [address] * (ABNORMAL) RENAL FUNCTION PANEL (08/12/2023 2:01 PM EST) BUN 45(H) 6 - 20 mg/dL 08/12/2023 3:20 PM EST [facility] 56-02 Creatinine 2.7(H) 0.6 - 1.2 mg/dL 08/12/2023 3:20 PM EST [facility] [place] 56-02 Estimated Glomerular Filtration Rate 24(L) >=60 mL/min 08/12/2023 3:20 PM EST [facility] 56- Comment:eGFR is calculated b ased on the CKD-EPI 2020 equation Sodium 134(L) 135 - 146 mmol/L 08/12/2023 3:20 PM EST [facility] 56-02 Potassium 5.2(H) 3.5 - 5.1 mmol/L 08/12/2023 3:20 PM EST [facility] 56- Chloride 104 98 - 107 mmol/L 08/12/2023 3:20 PM EST [facility] 56- CO2 20(L) 22 - 32 mmol/L 08/12/2023 3:20 PM EST [facility] 56- Anion Gap 10 7 - 15 mmol/L 08/12/2023 3:20 PM EST [facility] 56- Glucose 216(H) 70 - 120 mg/dL 08/12/2023 3:20 PM EST [facility] 56- Calcium 9.5 8.4 - 10.2 mg/dL 08/12/2023 3:20 PM EST [facility] 56- Albumin 4.1 3.8 - 5.0 g/dL 08/12/2023 3:20 PM EST [facility] 56- Phosphorus 3.5 2.5 - 4.8 mg/dL 08/12/2023 3:20 PM EST [facility] 56- Blood Venous blood specimen / Unknown Venipuncture / Unknown 08/12/2023 2:01 PM EST 08/12/2023 2:01 PM EST Shirley Roche PA-C LAB BLOOD ORD ERABLES [facility] [address]- [address] [place], [place] [id number] documented in this encounter Visit Diagnoses Diagnosis Kidney disease, chronic, stage IV (GFR 15-29 ml/min) (HCC)- Primary Chronic kidney disease, Stage IV (severe) Hyperkalemia Hyperpotassemia HTN, goal below 130/80 Unspecified essential hypertension Nephrolithiasis Calculus of kidney Type 2 diabetes mellitus with hemoglobin A1c goal of less than 8.0% (HCC) Need for prophylactic vaccination and inoculation against influenza HIV positive (HCC) Asymptomatic human immunodeficiency virus (HIV) infection status documented in this encounter Advance Directives Latest Code Status on File Code Status Date Activated Date Inactivated Comments Full Code 06/14/2012 6:26 PM 06/17/2012 7:43 PM This order reflects the patients wishes and were consensually agreed upon. Care Teams Warehouse Checker Relationship Specialty Start Date End Date Antonio Colon MD [address] [place] [address] PCP - General Family Medicine 02/12/22 documented as of this encounter
--- OUTSIDE RECORDS SUMMARY | 2023-12-31 22:21 | External Medical Summary ---
Author Name Unknown Address Unknown Organization [id number]:LABORATORY [facility] - [address] [facility] [id number] Laboratory Report Ordering Provider Test Date Status WAYNEGUYSANDRA 08/12/2023 14:01:16 Final Deficient: <20 ng/mL
Ins ufficient: 20-29 ng/mL
Recommended/Optimum:30-50 ng/mL

Vitamin D intoxication is rare. If suspicious of Vitamin D toxicity, evaluation of serum Calcium and PTH is recommended. Observation Date Value Abnormality Reference (Units ) Status 25-OH Vitamin D total 08/12/2023 14:01:16 29 >19 (ng/mL) Final Performing Location [facility]ORY [facility] - [address] [place] [address]
--- OUTSIDE RECORDS SUMMARY | 2023-12-31 22:21 | External Medical Summary | Summary of Care ---
Author Name Unknown Organization [facility] Address [address] [place] [address] Phone [phone] Care Team Providers Care Lead Miner Blasting Name Role Phone Antonio Colon MD Primary Care Provider [phone] Reason for Visit * Reason Onset Date Comments Chronic Kidney Disease (CKD) Medication Administration 08/12/2023 Flu an d/or Pneumo Inj Encounter Details Date Type Department Care Team (Late st Contact Info) Description 08/12/2023 1:00 PM EST Office Visit Nephrology, Madeline Snider [address] [facility] [address] [place] [address] ZemaitisShirley PA-C [address] [facility] [place] [address] Kidney disease, chronic, stage IV (GFR 15-29 ml/min) ([facility])*; HTN, goal below 130/80; Nephrolithiasis; Type 2 diabetes mellitus with hemoglobin A1c goal of less than 8.0% ([facility]); Need for prophylactic vaccination and inoculation against influenza; HIV positive ([facility]) Allergies No known active allergiesdocumented [...] 1 Tablet in the morning. 0 Active [place]-3 1000 MG Oral Capsule Take 1 Capsule by mouth in the morning. 0 Active FreeStyle Carlos 2 [place] Device Use as directed . Use to [...] in the morning. 0 08/13/2022 Active Pen [place] 32G X 4 MM Use as directed [...] Oral Tablet (Effient)Indications: Coronary artery disease involving [place] coronary artery of [place] heart without angina pectoris Take 1 Tablet [...] Dyslipidemia 05/02/2022 Coronary artery disease invo lving [place] coronary artery of [place] heart without angina pectoris 05/02/2022 Type 2 diabetes mellitus wit h hemoglobin A1c goal of less than 8.0% 05/02/2022 Kidney disease, chronic, stage IV (GFR 15-29 ml/ min) 05/02/2022 Old [place] (myocardial infarction) 05/02/2022 Chronic systolic (congestive) heart [...] symptoms or fever? No Have you had Guillain-[place] Syndrome (an illness that causes paralysis) within [...] today? No Patient allergic to latex? No C Stock: No Immunization(s) verified: Yes, Immunization Name: [...] CKD 4 .[place] the [place] [facility] and was followed by Dr. Rodriguez network security consultant before. Creatinine has been in the 3 and the 4 range before and is already been evaluated for transplant at [facility] in [facility]. Other medical problems includes HIV positive [...] syncopal episode and spent 1 night at [facility] Reports still on transplant list with [facility] needs to have stress testing completed through Cards . EKG recently completed. Sees GI in [place] for pre-cancerous cells recent appt showed advancement - procedure completed approx several wks ago and to fu in November Follows with [facility] clinic for DM control NSAID No. Tylenol [...] by mouth 1 Tablet in the morning. [place]-3 1000 MG Oral Capsule Take 1 Capsule [...] Tablet by mouth daily. FreeStyle Carlos 2 [place] Device Use as directed . Use to test BG E10.65 1 Each 0 FreeStyle Carlos 2 Sensor Use as directed . Use one sensor every 14 days for blood sugar E10.65 1 Each 11 Pen [place] 32G X 4 MM Use as directed . Use to inject insulin 4 times daily E11.9 200 Each 5 No current facility-administered medications for this visit. 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 05/07/2023 HIV positive ([facility]) Hypertension Kidney disease, chronic, stage IV (GFR 15-29 ml/min) ([facility]) 05/02/2022 Left bundle branch block 05/02/2022 Old [place] (myocardial infarction) 05/02/2022 Overweight (BMI 25.0-29.9) 05/02/2022 Recurrent major depressive disorder, in full remission ([facility]) 05/05/2022 Systolic and diastolic CHF, chronic ([facility]) 05/02/2022 Type 2 diabetes mellitus with hemoglobin A1c goal of less than 8.0% ([facility]) 05/02/2022 Past Surgical History: Procedure [...] Size: Regular) | Pulse 79 | Temp 35.6 C (96 F) | Resp 18 | Wt [...] CKD stage 4 and has been seeing network security consultant for many years when he was living in the [facility]. CKD likley attributed to combination of factors [...] dialysis if such need arise. Currently with [facility] in [facility] for possible renal transplant. Risk of ESRD is high within the next few years. Kidney disease, chronic, stage IV (GFR 15-29 ml/min) ([facility]) (Primary) - RENAL FUNCTION PANEL; Standing - PTH; Future; Expected date: 08/12/2023 - 25-HYDROXY VITAMIN D; Future; Expected date: 08/12/2023 - PHOSPHORUS; Future; Expected date: 08/12/2023 HTN, goal below 130/80 Slightly elevated today with visit. Advised to monitor - RENAL FUNCTION PANEL; Standing Nephrolithiasis Nonobstructive right nephrolithiasis noted with US in 01/2022. Push fluids 80-100 oz daily. Type 2 diabetes mellitus with hemoglobin A1c goal of less than 8.0% ([facility]) Tighter glycemic control advise hemoglobin A1c 9.5 HIV positive ([facility]) He has had this for [...] with [facility] Due for labs ANTHONY Esqueda DR documented in this encounter Nursing Notes * Any Fraser RN - 08/12/2023 1:16 PM EST Follow up visit today for CKD 4. No recent illness or hospital stays. documented in this encounter Plan of Treatment Upcoming Encounters Date Type Department Care Team (Late st Contact Info) Description 08/31/2023 6:10 PM EST Pharmacy Pharmacy, [facility] [address] [facility] [place] [address] [facility] [address] [facility] [place] [address] 05/23/2024 10:20 AM EDT [facility] [place] [facility] [place] [address] Tesfaye Morris MD [address] [facility] [place] [address] Scheduled Orders Name Type Priority Associated Diagnoses [...] 08/04/2022 08/04/2017, 02/03/2013 COVID-19 Vaccine ( - 2023-24 season) 2023 09/09/2022, 11/27/2020, 10/24/2020 Nephrology Referral [...] >19 ng/mL 08/12/2023 11:37 PM EST [facility] Blood Venous blood specimen / Unknown Venipuncture / Unknown 08/12/2023 2:01 PM EST 08/12/2023 2:01 PM EST Narrative LABORATORY [facility] - 08/12/2023 11:37 PM EST Deficient: <20 ng/mL Insufficient: 20-29 ng/mL Recommended/Optimum:30-50 ng/mL Vitamin D intoxication is rare. If suspicious of Vitamin D toxicity, evaluation of serum Calcium and PTH is recommended. Shirley Roche PA-C LAB BLOOD ORD ERABLES LABORATORY [place] [address] [place] [address] * (ABNORMAL) PTH (08/12/2023 2:01 PM EST) PTH 140(H) 15 - 65 pg/mL 08/12/2023 11:37 PM EST LABORATORY [facility] Blood Venous blood specimen / Unknown Venipuncture / Unknown 08/12/2023 2:01 PM EST 08/12/2023 2:01 PM EST Shirley Roche PA-C LAB BLOOD ORD ERABLES LABORATORY [address] [address] * (ABNORMAL) RENAL FUNCTION PANEL (08/12/2023 2:01 PM EST) BUN 45(H) 6 - 20 mg/dL 08/12/2023 3:20 PM EST [facility] 56-02 Creatinine 2.7(H) 0.6 - 1.2 mg/dL 08/12/2023 3:20 PM EST [facility] 56-02 Estimated Glomerular Filtration Rate 24(L) >=60 mL/min 08/12/2023 3:20 PM EST [facility] 56-02 Comment:eGFR is calculated b ased on the CKD-EPI 2020 equation Sodium 134(L) 135 - 146 mmol/L 08/12/2023 3:20 PM EST [facility] 56-02 Potassium 5.2(H) 3.5 - 5.1 mmol/L 08/12/2023 3:20 PM EST [facility] 56-02 Chloride 104 98 - 107 mmol/L 08/12/2023 3:20 PM EST [facility] 56- CO2 20(L) 22 - 32 mmol/L 08/12/2023 3:20 PM EST [facility] 56- Anion Gap 10 7 - 15 mmol/L 08/12/2023 3:20 PM EST [facility] 56- Glucose 216(H) 70 - 120 mg/dL 08/12/2023 3:20 PM EST [facility] 56- Calcium 9.5 8.4 - 10.2 mg/dL 08/12/2023 3:20 PM EST [facility] 56- Albumin 4.1 3.8 - 5.0 g/dL 08/12/2023 3:20 PM EST [place] [address]- Phosphorus 3.5 2.5 - 4.8 mg/dL 08/12/2023 3:20 PM EST [facility] 56- Blood Venous blood specimen / Unknown Venipuncture / Unknown 08/12/2023 2:01 PM EST 08/12/2023 2:01 PM EST Shirley Roche PA-C LAB BLOOD ORD ERABLES [place] [address] [place] [address] documented in this encounter Visit Diagnoses Diagnosis Kidney disease, chronic, stage IV (GFR 15-29 ml/min) ([facility])- Primary Chronic kidney disease, Stage IV (severe) HTN, goal below 130/80 Unspecified essential hypertension Nephrolithiasis Calculus of kidney Type 2 diabetes mellitus with hemoglobin A1c goal of less than 8.0% ([facility]) Need for prophylactic vaccination and inoculation against influenza HIV positive (HCC) Asymptomatic human immunodeficiency virus (HIV) infection status documented in this encounter Advance Directives Latest Code Status on File Code Status Date Activated Date Inactivated Comments Full Code 06/14/2012 6:26 PM 06/17/2012 7:43 PM This order reflects the patients wishes and were consensually agreed upon. Care Teams Lead Miner Blasting Relationship Specialty Start Date End Date Antonio Colon MD [address] [facility] [place] [address] PCP - General Family Medicine 02/12/22 documented as of this encounter
--- OUTSIDE RECORDS SUMMARY | 2023-12-31 22:21 | External Medical Summary | Summary of Care ---
Author Name Unknown Organization [facility] Address [address] [place] [address] Phone [phone] Care Team Providers Care Chalk Tester Name Role Phone Antonio Colon MD Primary Care Provider [phone] Reason for Visit * Reason Onset Date Comments Chronic Kidney Disease (CKD) Medication Administration 08/12/2023 Flu an d/or Pneumo Inj Encounter Details Date Type Department Care Team (Late st Contact Info) Description 08/12/2023 1:00 PM EST Office Visit Nephrology, Madeline Snider [address] [facility] [address] [place] [address] ZemaitisShirley PA-C [address] [facility] [place] [address] Kidney disease, chronic, stage IV (GFR 15-29 ml/min) ([facility])*; HTN, goal below 130/80; Nephrolithiasis; Type 2 diabetes mellitus with hemoglobin A1c goal of less than 8.0% ([facility]); Need for prophylactic vaccination and inoculation against influenza; HIV positive ([facility]) Allergies No known active allergiesdocumented as of [...] 1 Tablet in the morning. 0 Active [place]-3 1000 MG Oral Capsule Take 1 Capsule by mouth in the morning. 0 Active FreeStyle Carlos 2 [place] Device Use as directed . Use to [...] in the morning. 0 08/13/2022 Active Pen [place] 32G X 4 MM Use as directed [...] Oral Tablet (Effient)Indications: Coronary artery disease involving [place] coronary artery of [place] heart without angina pectoris Take 1 Tablet [...] Dyslipidemia 05/02/2022 Coronary artery disease invo lving [place] coronary artery of [place] heart without angina pectoris 05/02/2022 Type 2 diabetes mellitus wit h hemoglobin A1c goal of less than 8.0% 05/02/2022 Kidney disease, chronic, stage IV (GFR 15-29 ml/ min) 05/02/2022 Old [place] (myocardial infarction) 05/02/2022 Chronic systolic (congestive) heart [...] symptoms or fever? No Have you had Guillain-[place] Syndrome (an illness that causes paralysis) within [...] CKD 4 .Moved to the area from [facility] and was followed by Dr. Rodriguez mortgage accounting clerk before. Creatinine has been in the 3 and the 4 range before and is already been evaluated for transplant at [facility] in [facility]. Other medical problems includes HIV positive [...] syncopal episode and spent 1 night at [facility] Reports still on transplant list with [facility] needs to have stress testing completed through Cards . EKG recently completed. Sees GI in [place] for pre-cancerous cells recent appt showed advancement - procedure completed approx several wks ago and to fu in November Follows with [facility] clinic for DM control NSAID No. Tylenol [...] by mouth 1 Tablet in the morning. [place]-3 1000 MG Oral Capsule Take 1 Capsule [...] Tablet by mouth daily. FreeStyle Carlos 2 [place] Device Use as directed . Use to test BG E10.65 1 Each 0 FreeStyle Carlos 2 Sensor Use as directed . Use one sensor every 14 days for blood sugar E10.65 1 Each 11 Pen [place] 32G X 4 MM Use as directed . Use to inject insulin 4 times daily E11.9 200 Each 5 No current facility-administered medications for this visit. 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 05/07/2023 HIV positive ([facility]) Hypertension Kidney disease, chronic, stage IV (GFR 15-29 ml/min) ([facility]) 05/02/2022 Left bundle branch block 05/02/2022 Old [place] (myocardial infarction) 05/02/2022 Overweight (BMI 25.0-29.9) 05/02/2022 Recurrent major depressive disorder, in full remission ([facility]) 05/05/2022 Systolic and diastolic CHF, chronic ([facility]) 05/02/2022 Type 2 diabetes mellitus with hemoglobin A1c goal of less than 8.0% ([facility]) 05/02/2022 Past Surgical History: Procedure Laterality Date [...] CKD stage 4 and has been seeing mortgage accounting clerk for many years when he was living in the [facility]. CKD likley attributed to combination of factors [...] dialysis if such need arise. Currently with [facility] in [facility] for possible renal transplant. Risk of ESRD is high within the next few years. Kidney disease, chronic, stage IV (GFR 15-29 ml/min) ([facility]) (Primary) - RENAL FUNCTION PANEL; Standing - [...] hemoglobin A1c goal of less than 8.0% ([facility]) Tighter glycemic control advise hemoglobin A1c 9.5 HIV positive ([facility]) He has had this for 30+ years [...] Description 08/31/2023 6:10 PM EST Pharmacy Pharmacy, [facility] [address] [facility] [place] [address] [facility] 132 [facility] [place] [address] 05/23/2024 10:20 AM EDT [facility], [facility] [place] [address] Tesfaye Morris MD [address] [facility] [place] [address] Scheduled Orders Name Type Priority Associated Diagnoses [...] EST 08/12/2023 2:01 PM EST Narrative [facility]AT[facility] - 08/12/2023 11:37 PM EST Deficient: <20 ng/mL Insufficient: 20-29 ng/mL Recommended/Optimum:30-50 ng/mL Vitamin D intoxication is rare. If suspicious of Vitamin D toxicity, evaluation of serum Calcium and PTH is recommended. Shirley Roche PA-C LAB BLOOD ORD ERABLES LAB[facility]ATORY [place] [address] [place] [address] * (ABNORMAL) PTH (08/12/2023 2:01 PM EST) PTH 140(H) 15 - 65 pg/mL 08/12/2023 11:37 PM EST [facility] Blood Venous blood specimen / Unknown Venipuncture / Unknown 08/12/2023 2:01 PM EST 08/12/2023 2:01 PM EST Shirley Roche PA-C LAB BLOOD ORD ERABLES LABORATORY [address] [address] * (ABNORMAL) RENAL FUNCTION PANEL (08/12/2023 2:01 PM EST) BUN 45(H) 6 - 20 mg/dL 08/12/2023 3:20 PM EST [facility] 56-02 Creatinine 2.7(H) 0.6 - 1.2 mg/dL 08/12/2023 3:20 PM EST [facility] 56-02 Estimated Glomerular Filtration Rate 24(L) >=60 mL/min 08/12/2023 3:20 PM EST [facility] 56-02 Comment:eGFR is calculated b ased on the CKD-EPI 2020 equation Sodium 134(L) 135 - 146 mmol/L 08/12/2023 3:20 PM EST [facility] 56-02 Potassium 5.2(H) 3.5 - 5.1 mmol/L 08/12/2023 3:20 PM EST [facility] 56-02 Chloride 104 98 - 107 mmol/L 08/12/2023 3:20 PM EST [facility] 56- CO2 20(L) 22 - 32 mmol/L 08/12/2023 3:20 PM EST [facility] 56- Anion Gap 10 7 - 15 mmol/L 08/12/2023 3:20 PM EST [facility] 56- Glucose 216(H) 70 - 120 mg/dL 08/12/2023 3:20 PM EST [facility] 56- Calcium 9.5 8.4 - 10.2 mg/dL 08/12/2023 3:20 PM EST [facility] 56- Albumin 4.1 3.8 - 5.0 g/dL 08/12/2023 3:20 PM EST [place] [address]- Phosphorus 3.5 2.5 - 4.8 mg/dL 08/12/2023 3:20 PM EST [facility] 56- Blood Venous blood specimen / Unknown Venipuncture / Unknown 08/12/2023 2:01 PM EST 08/12/2023 2:01 PM EST Shirley Roche PA-C LAB BLOOD ORD ERABLES [place] [address] [place] [address] documented in this encounter Visit Diagnoses Diagnosis Kidney disease, chronic, stage IV (GFR 15-29 ml/min) ([facility])- Primary Chronic kidney disease, Stage IV (severe) HTN, goal below 130/80 Unspecified essential hypertension Nephrolithiasis Calculus of kidney Type 2 diabetes mellitus with hemoglobin A1c goal of less than 8.0% ([facility]) Need for prophylactic vaccination and inoculation against influenza HIV positive (HCC) Asymptomatic human immunodeficiency virus (HIV) infection status documented in this encounter Advance Directives Latest Code Status on File Code Status Date Activated Date Inactivated Comments Full Code 06/14/2012 6:26 PM 06/17/2012 7:43 PM This order reflects the patients wishes and were consensually agreed upon. Care Teams Chalk Tester Relationship Specialty Start Date End Date Antonio Colon MD [address] [facility] [place] [address] PCP - General Family Medicine 02/12/22 documented as of this encounter
--- OUTSIDE RECORDS SUMMARY | 2023-12-31 22:21 | External Medical Summary ---
Author Name Unknown Address Unknown Organization K09:[facility] [place] [address] Laboratory Report Ordering Provider Test Date Status GUY BLACKITIS 08/12/2023 14:01:16 Final Observation Date Value Abnormality Reference (Units ) Status BUN 08/12/2023 14:01:16 45 Above high normal 6-20 (mg/dL) Final Creatinine 08/12/2023 14:01:16 2.7 Above high normal 0.6-1.2 (mg/dL) Final Glomerular filtration rate/1.73 sq M.predicted [Volume Rate/Area] in Serum, Plasma or Blood by Creatinine-based formula (CKD-EPI) 08/12/2023 14:01:16 24 Below low normal >=60 (mL/min) Final eGFR is calculated based on the CKD-EPI 2020 equation SODIUM 08/12/2023 14:01:16 134 Below low normal 135 -146 (mmol/L) Final Potassium 08/12/2023 14:01:16 5.2 Above high normal 3. 5-5.1 (mmol/L) Final Cl 08/12/2023 14:01:16 104 98-107 (mm ol/L) Final CO2 08/12/2023 14:01:16 20 Below low normal 22- 32 (mmol/L) Final Anion gap 08/12/2023 14:01:16 10 7-15 (mmol /L) Final Glucose 08/12/2023 14:01:16 216 Above high normal 70 -120 (mg/dL) Final Calcium 08/12/2023 14:01:16 9.5 8.4-10.2 ( mg/dL) Final Albumin 08/12/2023 14:01:16 4.1 3.8-5.0 (g /dL) Final Phosphate 08/12/2023 14:01:16 3.5 2.5-4.8 (m g/dL) Final Performing Location [facility] [place] [address]
--- OUTSIDE RECORDS SUMMARY | 2023-12-31 22:21 | External Medical Summary | Summary of Care ---
Author Name Unknown Organization [facility] Address [address] [place] [address] Phone [phone] Care Team Providers Care Certified Registered Nurse Anesthetist Name Role Phone Antonio Colon MD Primary Care Provider [phone] Encounter Details Date Type Department Care Team (Late st Contact Info) Description 08/13/2023 Orders Only Nephrology, Madeline Snider 200 [facility] [place] [address] ZemaitisShirley PA-C 200 [facility] [place] [address] Hyperkalemia* Allergies No known active allergiesdocumented as of [...] 1 Tablet in the morning. 0 Active [place]-3 1000 MG Oral Capsule Take 1 Capsule by mouth in the morning. 0 Active FreeStyle Carlos 2 [place] Device Use as directed . Use to test BG E10.65 1 Each 0 02/13/2022 Active FreeStyle Carlos 2 Sensor Use as directed . Use one sensor every 14 days for blood sugar E10.65 1 Each 11 02/13/2022 Active Calcitriol 0.5 MCG Oral Capsule (Rocaltrol)Indication s:CKD (chronic kidney disease) stage 4, GFR 15-29 ml/min ([facility]) Take 1 Capsule (0.5 mcg) by mouth in the morning. 90 Capsule 5 08/12/2022 Active Sodium Bicarbonate 650 MG Oral Tablet Take 1 Tablet by mouth in the morning. 0 08/13/2022 Active Pen [place] 32G X 4 MM Use as directed [...] Oral Tablet (Effient)Indications: Coronary artery disease involving [place] coronary artery of [place] heart without angina pectoris Take 1 Tablet [...] Dyslipidemia 05/02/2022 Coronary artery disease invo lving [place] coronary artery of [place] heart without angina pectoris 05/02/2022 Type 2 [...] Description 08/31/2023 6:10 PM EST Pharmacy Pharmacy, [facility] [address] [place] [place] [address] [facility] [address] [place] [address] 05/23/2024 10:20 AM EDT Office Visit Nephrology, Madeline Snider [address] [place] [address] Tesfaye Morris MD 200 [facility] [place] [address] Scheduled Orders Name Type Priority Associated Diagnoses Orde r Schedule BASIC METABOLIC PANEL Lab Routine Hyperkalemia Expected: 08/27/2023, Expires: 08/13/2024 Scheduled Procedures Name Priority Associated Diagnoses Date/Ti [...] 02/20/2024 02/19/2023, 02/19/2023 Albumin/Creatinine Ratio 05/07/2024 05/07/2023, 052 Hgb 05/07/2024 05/07/2023, 05/15, 05/07/2022, Additional history [...] as of this encounter Visit Diagnoses Diagnosis Hyperkalemia- Primary Hyperpotassemia documented in this encounter Advance Directives Latest Code Status on File Code Status Date Activated Date Inactivated Comments Full Code 06/14/2012 6:26 PM 06/17/2012 7:43 PM This order reflects the patients wishes and were consensually agreed upon. Care Teams Certified Registered Nurse Anesthetist Relationship Specialty Start Date End Date Antonio Colon MD [address] [place] [address] PCP - General Family Medicine 02/12/22 documented as of this encounter
--- OUTSIDE RECORDS SUMMARY | 2023-12-31 22:21 | External Medical Summary | Summary of Care ---
Author Name Unknown Organization [facility] Address [address] [place] [address] Phone [phone] Care Team Providers Care Boatswain'S Mate Name Role Phone Antonio Colon MD Primary Care Provider [phone] Reason for Visit * Reason Onset Date Comments Chronic Kidney Disease (CKD) Medication Administration 08/12/2023 Flu an d/or Pneumo Inj Encounter Details Date Type Department Care Team (Late st Contact Info) Description 08/12/2023 1:00 PM EST Office Visit Nephrology, Norris Snider [address] [facility] [place] [address] ZemaitisShirley PA-C [address] [facility] [place] [address] Kidney disease, chronic, stage IV (GFR 15-29 ml/min) ([facility])*; Hyperkalemia; HTN, goal below 130/80; Nephrolithiasis; Type 2 diabetes mellitus with hemoglobin A1c goal of less than 8.0% ([facility]); Need for prophylactic vaccination and inoculation against influenza; HIV positive ([facility]) Allergies No known active allergiesdocumented [...] 1 Tablet in the morning. 0 Active Crescent-3 1000 MG Oral Capsule Take 1 Capsule by mouth in the morning. 0 Active FreeStyle Carlos 2 [place] Device Use as directed . Use to [...] in the morning. 0 08/13/2022 Active Pen Rincon 32G X 4 MM Use as directed [...] Oral Tablet (Effient)Indications: Coronary artery disease involving [place] coronary artery of [place] heart without angina pectoris Take [...] Dyslipidemia 05/02/2022 Coronary artery disease invo lving [place] coronary artery of [place] heart without angina pectoris 05/02/2022 [...] symptoms or fever? 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 Rodriguez review engineer before. Creatinine has been in the 3 and the 4 range before and is already been evaluated for transplant at [facility] in [place]. Other medical problems includes HIV positive for [...] syncopal episode and spent 1 night at [facility] still on transplant list with [facility] needs to have stress testing completed through [facility] . EKG recently completed. Sees [place] in [place] for pre-cancerous cells recent appt showed advancement - procedure completed approx several wks ago and to fu in November Follows with [facility] clinic for DM control NSAID [...] by mouth 1 Tablet in the morning. Crescent-3 1000 MG Oral Capsule Take 1 Capsule [...] Tablet by mouth daily. FreeStyle Carlos 2 [place] Device Use as directed . Use to test BG E10.65 1 Each 0 FreeStyle Carlos 2 Sensor Use as directed . Use one sensor every 14 days for blood sugar E10.65 1 Each 11 Pen Rincon 32G X 4 MM Use as directed . Use to inject insulin 4 times daily E11.9 200 Each 5 No current facility-administered medications for this visit. 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 05/07/2023 HIV positive ([facility]) Hypertension Kidney disease, chronic, stage IV (GFR 15-29 ml/min) ([facility]) 05/02/2022 Left bundle branch block 05/02/2022 Old [place] (myocardial infarction) 05/02/2022 Overweight (BMI 25.0-29.9) 05/02/2022 Recurrent major depressive disorder, in full remission ([facility]) 05/05/2022 Systolic and diastolic CHF, chronic ([facility]) 05/02/2022 Type 2 diabetes mellitus with hemoglobin A1c goal of less than 8.0% ([facility]) 05/02/2022 Past Surgical History: Procedure [...] CKD stage 4 and has been seeing review engineer for many years when he was living in the [facility]. CKD likley attributed to combination of factors [...] dialysis if such need arise. Currently with [facility] in [place] for possible renal transplant. Risk of ESRD is high within the next few years. Kidney disease, chronic, stage IV (GFR 15-29 ml/min) ([facility]) (Primary) - RENAL FUNCTION PANEL; [...] hemoglobin A1c goal of less than 8.0% ([facility]) Tighter glycemic control advise hemoglobin A1c 9.5 HIV positive ([facility]) He has had this for [...] Description 08/31/2023 6:10 PM EST Pharmacy Pharmacy, [facility] [address] [facility] [place] [address] [facility] [address] [facility] [place] [address] 05/23/2024 10:20 AM EDT Office Visit Nephrology, Norris Snider [address] [place] [address] Tesfaye Morris MD [address] [place] [address] Scheduled Orders Name Type Priority Associated Diagnoses [...] >19 ng/mL 08/12/2023 11:37 PM EST [facility] [place] Venous blood specimen / Unknown Venipuncture / Unknown 08/12/2023 2:01 PM EST 08/12/2023 2:01 PM EST Narrative [facility] [place] 08/12/2023 11:37 PM EST Deficient: <20 ng/mL Insufficient: 20-29 ng/mL Recommended/Optimum:30-50 ng/mL Vitamin D intoxication is rare. If suspicious of Vitamin D toxicity, evaluation of serum Calcium and PTH is recommended. Shirley Roche PA-C LAB BLOOD ORD ERABLES Performing Organization Address City/[facility]/ZIP Co de Phone Number LABORATORY [place] [address] [place] [address] * (ABNORMAL) PTH (08/12/2023 2:01 PM EST) PTH 140(H) 15 - 65 pg/mL 08/12/2023 11:37 PM EST [facility] [place] Venous blood specimen / Unknown Venipuncture / Unknown 08/12/2023 2:01 PM EST 08/12/2023 2:01 PM EST Shirley Roche PA-C LAB BLOOD ORD ERABLES [facility] [place] [address] [place] [address] * (ABNORMAL) RENAL FUNCTION PANEL (08/12/2023 2:01 PM EST) BUN 45(H) 6 - 20 mg/dL 08/12/2023 3:20 PM EST [facility] 56-02 Creatinine 2.7(H) 0.6 - 1.2 mg/dL 08/12/2023 3:20 PM EST [facility] [place] 56-02 Estimated Glomerular Filtration Rate 24(L) >=60 mL/min 08/12/2023 3:20 PM EST [facility] 56- Comment:eGFR is calculated b ased on the CKD-EPI 2020 equation Sodium 134(L) 135 - 146 mmol/L 08/12/2023 3:20 PM EST [facility] 56-02 Potassium 5.2(H) 3.5 - 5.1 mmol/L 08/12/2023 3:20 PM EST [facility] 56- Chloride 104 98 - 107 mmol/L 08/12/2023 3:20 PM EST [facility] 56- CO2 20(L) 22 - 32 mmol/L 08/12/2023 3:20 PM EST [facility] 56- Anion Gap 10 7 - 15 mmol/L 08/12/2023 3:20 PM EST [facility] 56- Glucose 216(H) 70 - 120 mg/dL 08/12/2023 3:20 PM EST [facility] 56- Calcium 9.5 8.4 - 10.2 mg/dL 08/12/2023 3:20 PM EST [facility] 56- Albumin 4.1 3.8 - 5.0 g/dL 08/12/2023 3:20 PM EST [facility] 56- Phosphorus 3.5 2.5 - 4.8 mg/dL 08/12/2023 3:20 PM EST [facility] 56- Blood Venous blood specimen / Unknown Venipuncture / Unknown 08/12/2023 2:01 PM EST 08/12/2023 2:01 PM EST Shirley Roche PA-C LAB BLOOD ORD ERABLES [facility] 56- [address] [place], [place] [phone] documented in this encounter Visit Diagnoses Diagnosis [...] and were consensually agreed upon. Care Teams Boatswain'S Mate Relationship Specialty Start Date End Date Antonio Colon MD [address] [place] [address] PCP - General Family Medicine 02/12/22 documented as of this encounter
--- OUTSIDE RECORDS SUMMARY | 2023-12-31 22:21 | External Medical Summary | Summary of Care ---
Author Name Unknown Organization [facility] Address [address] [place] [address] Phone [phone] Care Team Providers Care Manufacturing Systems Engineer Name Role Phone Antonio Colon MD Primary Care Provider [phone] Reason for Visit * Reason Comments Outpatient Testing Encounter Details Date Type Department Care Team (Late st Contact Info) Description 08/12/2023 2:10 PM EST Laboratory Laboratory [facility] [place] [address] [place] [id number] [facility] [address] [place] [address] Kidney disease, chronic, stage IV (GFR 15-29 ml/min) ([facility]); HTN, goal below 130/80 Allergies No known active allergiesdocumented as of this encounter (statuses as of 08/12/2023) Medications Medication Sig Dispensed Refills Start Date [...] 1 Tablet in the morning. 0 Active [place]-3 1000 MG Oral Capsule Take 1 Capsule by mouth in the morning. 0 Active FreeStyle Carlos 2 [place] Device Use as directed . Use to [...] in the morning. 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 05/07/2023 Recurrent major depressive disorder, in full rem ission 05/05/2022 Overweight (BMI 25.0-29.9) 05/02/2022 Dyslipidemia 05/02/2022 Coronary artery disease invo lving [place] coronary artery of [place] heart without angina pectoris 05/02/2022 Type 2 diabetes mellitus wit h hemoglobin A1c goal of less than 8.0% 05/02/2022 Kidney disease, chronic, stage IV (GFR 15-29 ml/ min) 05/02/2022 Old [place] (myocardial infarction) 05/02/2022 Chronic systolic (congestive) heart failure 04/14 Left bundle branch block 05/02/2022 HTN, goal below 130/80 HIV positive documented as of this encounter (statuses as of 08/12/2023) Resolved Problems Problem Noted Date Diagnosed Date Resolved Date Chronic heart failure with p reserved ejection fraction 11/24/2022 02/04/2023 ARDS (adult respiratory distress syndrome) 06/17/2012 05/02/2022 Acute pancreatitis 06/14/2012 Acute respiratory distress 06/14/2012 0 05/02/2022 documented as of this encounter (statuses as of 08/12/2023) Immunizations Name Administration Dates Next Due COVID-19 [...] Description 08/31/2023 6:10 PM EST Pharmacy Pharmacy, [facility] [address] [place] [address] [facility] [address] [place] [address] 05/23/2024 10:20 AM EDT Office Visit Nephrology, Madeline Snider [address] [place] [address] Tesfaye Morris MD [address] [place] [address] Pending Results Name Type Priority Associated Diagnoses Date /Time RENAL FUNCTION PANEL Lab Routine Kidney disease, chronic, stage IV (GFR 15-29 ml/min) ([facility]) HTN, goal below 130/80 08/12/2023 2:01 PM EST PTH Lab Routine Kidney disease, chronic, stage IV (GFR 15-29 ml/min) ([facility]) 08/12/2023 2:01 PM EST 25-HYDROXY VITAMIN D Lab Routine Kidney disease, chronic, stage IV (GFR 15-29 ml/min) ([facility]) 08/12/2023 2:01 PM EST Scheduled Procedures Name Priority Associated Diagnoses Date/Ti [...] 09/09/2022, 11/27/2020, 10/24/2020 Nephrology Referral 08/12/2023 08/12/2022 PTH 08/12/2023 08/12/2022, 05/07/2022 Phosphate 08/12/2023 08/12/2022, 04/14, 04/28/2021, Additional history exists GFR 11/07/2023 05/07/2023, 07/16, 06/09/2022, Additional history exists HbA1c 11/07/2023 05/07/2023, 07/16, 10/02/2020, Additional history exists Diabetic Foot Exam 11/25/2023 11/24/2022 COLONOSCOPY-ANNUAL AGES 18-100 02/20/2024 02/19/2023, 02/19/2023 Albumin/Creatinine Ratio 05/07/2024 05/07/2023, 11/2021 Hgb 05/07/2024 05/07/2023, 05/15, 05/07/2022, Additional history exists DTaP,Tdap,and Td Vaccines [...] as of this encounter Visit Diagnoses Diagnosis Kidney disease, chronic, stage IV (GFR 15-29 ml/min) (HCC) Chronic kidney disease, Stage IV (severe) HTN, goal below 130/80 Unspecified essential hypertension documented in this encounter Advance Directives Latest Code Status on File Code Status Date Activated Date Inactivated Comments Full Code 06/14/2012 6:26 PM 06/17/2012 7:43 PM This order reflects the patients wishes and were consensually agreed upon. Care Teams Manufacturing Systems Engineer Relationship Specialty Start Date End Date Antonio Colon MD [address] [facility] [place] [address] PCP - General Family Medicine 02/12/22 documented as of this encounter
--- OUTSIDE RECORDS SUMMARY | 2023-12-31 22:21 | External Medical Summary ---
Author Name Unknown Address Unknown Organization [id number]:[facility]ATORY [facility] [place] - [address] [place] [address] Laboratory Report Ordering Provider Test Date Status JEFFERY BLACK 08/12/2023 14:01:16 Final Observation Date Value Abnormality Reference (Units ) Status Parathyrin.intact [Mass/volume] in Serum or Plasma 08/12/2023 14:01:16 140 Above high normal 15-65 (pg/mL) Final Performing Location LAB[facility]ATORY [facility] [place] - [address] [place] [address]
--- OUTSIDE RECORDS SUMMARY | 2023-12-31 22:22 | External Medical Summary | Summary of Care ---
Author Name Unknown Organization [facility] Address [address] [facility] [place] [address] Phone [phone] Care Team Providers Care Attacher Name Role Phone Antonio Colon MD Primary Care Provider [phone] Reason for Visit * Reason Comments DSMT Follow-Up Encounter Details Date Type Department Care Team (Latest Contact Info) Description 08/02/2023 3:30 PM [facility] [address] [place] [address] Rahel Kramer RDN [address] [place] [address] Type 2 diabetes mellitus with hemoglobin A1c goal of less than 8.0% ([facility])*; Kidney disease, chronic, stage IV (GFR 15-29 ml/min) ([facility]); Chronic systolic (congestive) heart failure ([facility]); HTN, goal below 130/80; Dyslipidemia; Coronary artery disease involving [place] coronary artery of [place] heart without angina pectoris; Overweight (BMI 25.0-29.9); Left bundle branch block; Old [place] (myocardial infarction) Allergies No known active allergiesdocumented as of this encounter (statuses as of 08/02/2023) Medications Medication Sig Dispensed Refills Start Date [...] 1 Tablet in the morning. 0 Active [place]-3 1000 MG Oral Capsule Take 1 Capsule by mouth in the morning. 0 Active FreeStyle Carlos 2 [place] Device Use as directed . Use to [...] in the morning. 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 05/07/2023 Recurrent major depressive disorder, in full rem ission 05/05/2022 Overweight (BMI 25.0-29.9) 05/02/2022 Dyslipidemia 05/02/2022 Coronary artery disease invo lving [place] coronary artery of [place] heart without angina pectoris 05/02/2022 Type 2 diabetes mellitus wit h hemoglobin A1c goal of less than 8.0% 05/02/2022 Kidney disease, chronic, stage IV (GFR 15-29 ml/ min) 05/02/2022 Old VT (myocardial infarction) 05/02/2022 Chronic systolic (congestive) heart failure 04/14 Left bundle branch block 05/02/2022 HTN, goal below 130/80 HIV positive documented as of this encounter (statuses as of 08/02/2023) Resolved Problems Problem Noted Date Diagnosed Date Resolved Date Chronic heart failure with p reserved ejection fraction 11/24/2022 02/04/2023 ARDS (adult respiratory distress syndrome) 06/17/2012 05/02/2022 Acute pancreatitis 06/14/2012 Acute respiratory distress 06/14/2012 0 05/02/2022 documented as of this encounter (statuses as of 08/02/2023) Immunizations Name Administration Dates Next Due COVID-19 mRNA, LNP-s, No Pre serve, 2-Dose Series (Moderna) 11/27/2020,10/24/2020 Hepatitis B, 20+ yrs 08/25/2017 Meningococcal MCV4P Conjugat e Vaccine (Menactra) 08/04/2017,02/03/2013 Pneumococcal Conjugate Vacc, 13 Valent (Prevnar) 08/21/2018,07/23/2017 Pneumococcal Polysaccharide PPV23 (Pneumovax) 07/20/2012 Seasonal Influenza Virus Vac cine, Unspecified Formulation 06/19/2021,10/05/2019,08/21/2018 Seasonal Influenza, Split, I IV3, With Preserve, [...] Sign Reading Time Taken Comments Blood Pressure - - Pulse - - Temperature - - Respiratory Rate - - Oxygen Saturation - - Inhaled Oxygen Concentration - - Weight 83.6 kg (184 lb 3.2 oz) 08/02/2023 3:45 P M EST Height 175.3 cm (5' 9") 08/02/2023 3:45 PM EST Body Mass Index 27.2 08/02/2023 3:45 PM EST documented in this encounter Patient Instructions * Patient Instructions* Rahel Kramer RDN - 08/02/2023 4:22 PM EST Participant will use ADA plate model for eating at least 1 meal daily most days of the week. Try toeat at least 2 servings of CHO's per meal (30 grams) documented in this encounter Progress Notes * Rahel Kramer RDN - 08/02/2023 3:36 PM EST DIABETES SELF-MANAGEMENT TRAINING/FOLLOW UP NOTE Name: Tad Silvestre Date: 08/02/2023 Participant was seen in person in clinic today. Last order of DIABETES MANAGEMENT EDUCATION (ADA) REFERRAL was found on 03/26/2023 from Telephone on03/26/2023 No order of CLINICAL NUTRITION AND DIABETES EDUCATION ANNUAL RENEWAL is found. No order of PEDIATRIC DIABETES MANAGEMENT EDUCATION (ADA) REFERRAL OP is found. ADA referral in place? Yes Participant scheduled for 1:1 training due to lack of classes scheduled within 2 months of appointment. What diabetes concerns and/or barriers to care would you like to discuss in your appointment: states he has a pre-cancerous area that will be evaluated soon Topics from last visit to attempt to cover today: none Was behavior objective from last visit met at least 80% of the time: Nutrition: Yes Psychosocial Screening: Lately have you been feeling down, depressed or hopeless most of the day? No Sleep Health: Addressed - How many hours are you sleeping during the night? 8-9 hours Do you have difficulty falling or staying asleep? No Do you snore? Does not know Are you waking up during the night with symptoms of low glucose levels (shaky, sweaty, nightmares)?No Are you waking up during the night to urinate frequently? Yes Diabetes Medications: Basaglar 22 units in the AM Novolog 10 units with meals 3 times daily Monitoring blood glucose, interpreting and using results Results for orders placed or performed in visit on 05/07/23 HEMOGLOBIN A1C Result Value Ref Range Hemoglobin A1C 9.5 (H) 4.0 - 5.6 % Estimated Average Glucose 226 (H) <126 mg/dL Results for orders placed or performed in visit on 08/12/22 HEMOGLOBIN A1C Result Value Ref Range Hemoglobin A1C 8.7 (H) 4.0 - 5.6 % Estimated Average Glucose 203 (H) <126 mg/dL Out of target, increased from 8.7 to 9.5% Self-Monitoring Blood Glucose Source of Information: Participant verbally reviewed from memory Frequency of tests: 3-4 times a day FBS 160's Pre-prandial 250's Post prandial 280-300's Hypoglycemia?: Yes, participant has had 1 episodes in past 4 weeks. Treats hypoglycemia by: Regular juice Diet: Breakfast: 7:30 AM oatmeal with peaches and almonds, black coffee or 2 sausage hot dogs with no bread and cottage cheese Snacks: none Lunch: 11:30 AM small tuna sub, bowl of broccoli cheddar, diet pepsi or steak, asparagus aldana, water Snacks: none Dinner: chicken pot pie-frozen meal, brussel sprouts, cranberry or applesauce, water Snacks: yogurt Drinks: water-mostly, unsweetened iced tea, diet pepsi, plenty of fluids Restaurant meals: every other day, sometimes twice in 1 day Alcohol: Infrequent Tobacco Use: No Weight management review: Wt Readings from Last 6 Encounters: 08/02/23 83.6 kg (184 lb 3.2 oz) 05/07/23 82.1 kg (181 lb) 03/10/23 81.6 kg (180 lb) 11/24/22 84.8 kg (187 lb) 09/30/22 84 kg (185 lb 3.2 oz) 08/12/22 85 kg (187 lb 6.4 oz) Weight changes since last visit: stable Physical Activity: Long walks-1-3 miles twice a week ADA STANDARDS OF CARE/BUNDLE MEASURES Diabetes Bundle / Standards of Care: Needs COVID vaccine, flu vaccine, and lipid panel Therapy Management Plan: Hypertension: BP Readings from Last 3 Encounters: 05/07/23 122/74 02/04/23 124/75 11/24/22 128/74 At goal/target Dyslipidemia: Lab Results Component Value Date/Time LDL (CALCULATED)-OUTSIDE LAB 46 07/20/2020 04:33 AM LDL CHOLESTEROL (CALCULATED) - [facility] 64 06/15/2012 05:32 AM LDL CHOLESTEROL (DIRECT MEASURE) - [facility] 61 05/07/2022 04:25 PM Taking Statin No recent results to assess Kidney function review: Lab Results Component Value Date/Time ESTIMATED GLOMERULAR FILTRATION RATE - [facility] 22 (L) 05/07/2023 12:16 PM ESTIMATED GLOMERULAR FILTRATION RATE - [facility] >60.0 06/17/2012 06:08 AM Lab Results Component Value Date/Time ALBUMIN / CREATININE RATIO, URINE - [facility] 203 (H) 05/07/2023 12:16 PM Lab Results Component Value Date/Time PROTEIN/ CREATININE RATIO, URINE - [facility] 892 (H) 08/12/2022 03:11 PM Out of target DSMT/Diabetes MNT Diagnosis: Food and nutrition related knowledge deficit related to questions about how many CHO's to eat as evidenced by encounter with participant DSMT Follow-up Assessment of Content Areas: Choose the answer that represents the participant's competency in ONLY topics assessed from previous visit and addressed today. Areas taught today must correlate with intervention. If content area not assessed and/or intervened today, it will be deferred to future session. Diabetes disease process and treatment process: Needs review (2) Incorporating nutrition management into lifestyle: Needs review (2) Using medications safely: Needs review (2) Monitoring blood glucose, interpreting and using results: Comprehends marie points (3) Prevention, detection, and treatment of acute complications: Comprehends marie points (3) Prevention, detection, and treatment of chronic complications: Needs review (2) DSMT/ Diabetes MNT intervention: Nutrition: Reminded participant of need for eating consistent CHO intake and managing portion sizesof high-CHO foods. Encouraged him to avoid processed foods; this is a challenge as he doesn't prepare many foods from scratch. Again reviewed recommended portion sizes of some common high-CHO foods. States he find monitoring portion sizes of high-CHO foods difficult. Reviewed ADA Plate model of healthy eating with him and encouraged him to follow this for at least 1 meal daily. Reviewed low-CHO vegetables with him. Discussed effect of saturated fat on action of insulin. Medication: Reviewed types of insulin he is on and how they work. Discussed that mealtime insulin dosages are the same for each meal. Encouraged him to consume at least 30 grams of CHO's per meal. Monitoring: Reminded participant of MTM appointment tomorrow at 6:10 PM Acute Complications: Encouraged participant to eat consistent CHO's at meals to prevent hypoglycemia. Also cautioned him about eating some high-CHO foods when drinking alcohol to prevent hypoglycemia; states when he consumes alcohol, he usually does so at mealtime. Participant Selected Behavioral Objective: Nutrition: To improve blood glucose control I will use ADA plate model for eating at least 1 meal daily most days of the week. Try to eat at least 2 servings of CHO's per meal (30 grams) Recommended Medication Changes: No changes. Education materials given to participant/caregiver and reviewed during today's visit: ADA Plan Your Portions Placemat Possible Future Topics: Content areas that were not assessed in prior visits: All content areas have been assessed. Time Spent With Patient: Time in: 3:34 PM Time out: 4:20 PM Billing: DSMT: 30 Minutes Plan for Return: 2 months Participant provided with contact information for Diabetes Care and [employer] [facility]. All [facility] providers within the system are able to see [place] [employer] education and outcomes within the participant's electronic medical record. Rahel Kramer RDN, NUTRITION SERVICES [facility] Diabetes Care and [employer] [facility] documented in this encounter Plan of Treatment Upcoming Encounters Date Type Department Care Team (Late st Contact Info) Description 08/03/2023 6:10 PM EST Pharmacy Pharmacy, [facility] [address] [facility] [place] [address] [facility] [address] [facility] [place] [address] Scheduled Procedures Name Priority Associated Diagnoses Date/Ti [...] ( - season) 2023 09/09/2022, 11/27/2020, 10/24/2020 Influenza Vaccine (FLU shot) (#1) 2023 09/09/2022, 06/19/2021, 06/19/2021, Additional history exists Nephrology Referral 08/12/2023 08/12/2022 PTH 08/12/2023 08/12/2022, [...] Discontinued 02/19/2023, 02/19/2023 Colorectal Cancer Screening Discontinued Cologuard Discontinued Fecal Occult Blood Test Discontinued GARDASIL-HPV IMMUNIZATION SERIES Aged Out No longer eligible based on patient's age to complete this topic Sigmoidoscopy Discontinued documented as of this encounter Medical Devices Not on filedocumented as of this encounter Visit Diagnoses Diagnosis Type 2 diabetes mellitus with hemoglobin A1c goal of less than 8.0% (HCC)- Primary Kidney disease, chronic, stage IV (GFR 15-29 ml/min) (HCC) Chronic kidney disease, Stage IV (severe) Chronic systolic (congestive) heart failure (HCC) HTN, goal below 130/80 Unspecified essential hypertension Dyslipidemia Other and unspecified hyperlipidemia Coronary artery disease involving [place] coronary artery of [place] heart without angina pectoris Overweight (BMI 25.0-29.9) Overweight Left bundle branch block Other left bundle branch block Old VT (myocardial infarction) Old myocardial infarction documented in this encounter Advance Directives Latest Code Status on File Code Status Date Activated Date Inactivated Comments Full Code 06/14/2012 6:26 PM 06/17/2012 7:43 PM This order reflects the patients wishes and were consensually agreed upon. Care Teams Attacher Relationship Specialty Start Date End Date Antonio Colon MD [address] [place] [id number] PCP - General Family Medicine 02/12/22 documented as of this encounter
--- OUTSIDE RECORDS SUMMARY | 2023-12-31 22:22 | External Medical Summary | Summary of Care ---
Author Name Unknown Organization [facility] Address [address] [place] [facility] [place] [address] Phone [phone] Care Team Providers Care Resource Teacher Name Role Phone Antonio Colon MD Primary Care Provider [phone] Reason for Visit * Reason Comments DSMT Follow-Up Encounter Details Date Type Department Care Team (Latest Contact Info) Description 08/02/2023 3:30 PM [facility] [address] [place] [address] Rahel Kramer RDN [address] [place] [address] Type 2 diabetes mellitus with hemoglobin A1c goal of less than 8.0% ([facility])*; Kidney disease, chronic, stage IV (GFR 15-29 ml/min) ([facility]); Chronic systolic (congestive) heart failure ([facility]); HTN, goal below 130/80; Dyslipidemia; Coronary artery disease involving [place] coronary artery of [place] heart without angina pectoris; Overweight (BMI 25.0-29.9); Left bundle branch block; Old [place] (myocardial infarction) Allergies No known active allergiesdocumented as of this encounter (statuses as of 08/03/2023) Medications Medication Sig Dispensed Refills Start Date [...] 1 Tablet in the morning. 0 Active [place]-3 1000 MG Oral Capsule Take 1 Capsule by mouth in the morning. 0 Active FreeStyle Carlos 2 [place] Device Use as directed . Use to [...] in the morning. 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 05/07/2023 Recurrent major depressive disorder, in full rem ission 05/05/2022 Overweight (BMI 25.0-29.9) 05/02/2022 Dyslipidemia 05/02/2022 Coronary artery disease invo lving [place] coronary artery of [place] heart without angina pectoris 05/02/2022 Type 2 diabetes mellitus wit h hemoglobin A1c goal of less than 8.0% 05/02/2022 Kidney disease, chronic, stage IV (GFR 15-29 ml/ min) 05/02/2022 Old [place] (myocardial infarction) 05/02/2022 Chronic systolic (congestive) heart failure 04/14 Left bundle branch block 05/02/2022 HTN, goal below 130/80 HIV positive documented as of this encounter (statuses as of 08/03/2023) Resolved Problems Problem Noted Date Diagnosed Date Resolved Date Chronic heart failure with p reserved ejection fraction 11/24/2022 02/04/2023 ARDS (adult respiratory distress syndrome) 06/17/2012 05/02/2022 Acute pancreatitis 06/14/2012 Acute respiratory distress 06/14/2012 0 05/02/2022 documented as of this encounter (statuses as of 08/03/2023) Immunizations Name Administration Dates Next Due COVID-19 [...] with contact information for Diabetes Care and [facility] Services Specialist. All [facility] providers within the system are able to see [place] [employer] education and outcomes within the participant's electronic medical record. Rahel Kramer RDN, NUTRITION SERVICES [facility] Diabetes Care and Veterans Services Specialist documented in this encounter Plan of Treatment Upcoming Encounters Date Type Department Care Team (Late st Contact Info) Description 08/03/2023 6:10 PM EST Pharmacy Pharmacy, [facility] [address] [facility] [place] [address] [facility] [address] [facility] [place] [address] Scheduled Procedures Name Priority Associated Diagnoses Date/Ti [...] and unspecified hyperlipidemia Coronary artery disease involving [place] coronary artery of [place] heart without angina pectoris Overweight (BMI 25.0-29.9) Overweight Left bundle branch block Other left bundle branch block Old [place] (myocardial infarction) Old myocardial infarction documented in this encounter Advance Directives Latest Code Status on File Code Status Date Activated Date Inactivated Comments Full Code 06/14/2012 6:26 PM 06/17/2012 7:43 PM This order reflects the patients wishes and were consensually agreed upon. Care Teams Resource Teacher Relationship Specialty Start Date End Date Antonio Colon MD [address] [place] [address] PCP - General Family Medicine 02/12/22 documented as of this encounter
--- OUTSIDE RECORDS SUMMARY | 2023-12-31 22:22 | External Medical Summary | Summary of Care ---
Author Name Unknown Organization [facility] Address [address] [facility] [place] [address] Phone [phone] Care Team Providers Care Development And Housing Director Name Role Phone Antonio Colon MD Primary Care Provider [phone] Reason for Visit * Reason Comments Appointment Encounter Details Date Type Department Care Team (Late st Contact Info) Description 08/03/2023 6:10 PM [facility] Pharm[facility] Pharmacy, [facility] [address] [facility] [address] [facility] [address] [place] [address] Type 2 diabetes mellitus with hemoglobin A1c goal of less than 8.0% ([facility])* Allergies No known active allergiesdocumented as of [...] 1 Tablet in the morning. 0 Active [place]-3 1000 MG Oral Capsule Take 1 Capsule by mouth in the morning. 0 Active FreeStyle Carlos 2 [place] Device Use as directed . Use to [...] in the morning. 0 08/13/2022 Active Pen [place] 32G X 4 MM Use as directed [...] Oral Tablet (Effient)Indications: Coronary artery disease involving [place] coronary artery of [place] heart without angina pectoris Take 1 Tablet [...] Dyslipidemia 05/02/2022 Coronary artery disease invo lving [place] coronary artery of [place] heart without angina pectoris 05/02/2022 Type 2 [...] as of this encounter Progress Notes * Aida Storey, continuous improvement lead - 08/03/2023 10:31 AM EST Patient Phone Numbers Left message on patients answering machine to schedule MTDM appointment for DM management. [facility] message sent --no Clinic will follow up again in 4 week(s). [Attempt # 3] Thank you, Aida Storey Insurance Adjustor [facility] ([facility] (Formerly Telepharm[facility]) 08/03/2023, 10:35 AM documented in this encounter Plan of Treatment Upcoming Encounters Date Type Department Care Team (Late st Contact Info) Description 08/31/2023 6:10 PM EST Pharmacy Pharmacy, [facility] [address] [facility] [place] [address] [facility] [address] [facility] [place] [address] Scheduled Procedures Name Priority Associated Diagnoses Date/Ti [...] Vaccine ( season) 2023 09/09/2022, 11/27/2020, 10/24/2020 Influenza Vaccine [...] and were consensually agreed upon. Care Teams Development And Housing Director Relationship Specialty Start Date End Date Antonio Colon MD [address] [place] [id number] PCP - General Family Medicine 02/12/22 documented as of this encounter
--- OUTSIDE RECORDS SUMMARY | 2023-12-31 22:22 | External Medical Summary | Summary of Care ---
Author Name Unknown Organization [facility] Address [address] [facility] [place] [address] Phone [phone] Care Team Providers Care Formula Mixer Name Role Phone Abimael Us MD Primary Care Provider +1 [phone] Reason for Visit * Reason Comments eRx-Medication Refill Encounter Details Date Type Department Care Team (Late st Contact Info) Description 07/06/[address] [facility] [address] [place] [address] Abimael Us MD [address] [place] [address] Allergies No known active allergiesdocumented as of this encounter (statuses as of 07/07/2023) Medications Medication Sig Dispensed Refills Start Date [...] 1 Tablet in the morning. 0 Active [place]-3 1000 MG Oral Capsule Take 1 Capsule by mouth in the morning. 0 Active FreeStyle Carlos 2 [place] Device Use as directed . Use to test BG E10.65 1 Each 0 02/13/2022 Active FreeStyle Carlos 2 Sensor Use as directed . Use one sensor every 14 days for blood sugar E10.65 1 Each 11 02/13/2022 Active Calcitriol 0.5 MCG Oral Capsule (Rocaltrol)Indicat ions:CKD (chronic kidney disease) stage 4, GFR 15-29 ml/min ([facility]) Take 1 Capsule (0.5 mcg) by mouth in the morning. 90 Capsule 5 08/12/2022 Active Sodium Bicarbonate 650 MG Oral Tablet Take 1 Tablet by mouth in the morning. 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 05/07/2023 Recurrent major depressive disorder, in full rem ission 05/05/2022 Overweight (BMI 25.0-29.9) 05/02/2022 Dyslipidemia 05/02/2022 Coronary artery disease invo lving torres martinez coronary artery of tor[place] martinez heart without angina pectoris 05/02/2022 Type 2 diabetes mellitus wit h hemoglobin A1c goal of less than 8.0% 05/02/2022 Kidney disease, chronic, stage IV (GFR 15-29 ml/ min) 05/02/2022 Old [place] (myocardial infarction) 05/02/2022 Chronic systolic (congestive) heart failure 04/14 Left bundle branch block 05/02/2022 HTN, goal below 130/80 HIV positive documented as of this encounter (statuses as of 07/07/2023) Resolved Problems Problem Noted Date Diagnosed Date Resolved Date Chronic heart failure with p reserved ejection fraction 11/24/2022 02/04/2023 ARDS (adult respiratory distress syndrome) 06/17/2012 05/02/2022 Acute pancreatitis 06/14/2012 Acute respiratory distress 06/14/2012 0 05/02/2022 documented as of this encounter (statuses as of 07/07/2023) Immunizations Name Administration Dates Next Due COVID-19 [...] encounter Miscellaneous Notes * Telephone Encounter - Abi Massey, [facility] - 07/07/2023 9:32 AM EDT Signed Prescriptions: Disp Refills NovoLOG FlexPen 100 UNIT/ML Subcutaneous S*15 mL 5 Sig: INJECT 10 UNITS THREE TIMES A DAY WITH MEALS or as directed Authorizing Provider: ABIMAEL US User: ABI MASSEY * Telephone Encounter - Hazel Murphy [facility] - 07/07/2023 9:26 AM EDTPending Prescriptions: Disp Refills NovoLOG FlexPen 100 UNIT/ML Subcutaneous S* 5 Sig: INJECT 10 UNITS THREE TIMES A DAY WITH MEALS documented in this encounter Plan of Treatment Upcoming Encounters Date Type Department Care Team (Late st Contact Info) Description 07/14/2023 9:00 AM EDT Nutrition Services Nutrition, [facility] [address] [place] [address] Rahel Kramer RDN [address] [place] [address] 08/03/2023 6:10 PM [facility] Pharmacy Pharmacy, [facility] [address] [address] [facility] [address] [place] [place] [address] Scheduled Procedures Name Priority Associated Diagnoses Date/Ti me COLONOSCOPY FLEXIBLE PROXIMA L DIAGNOSTIC Recall History of colonic polyps Health Maintenance Due Date Last Done Comments Depression Screening 1965 DIABETES-EYE EXAM 1971 Zoster Vaccines (1 of 2) 1972 Hepatitis B (2 of 3 - Risk 3-dose series) 09/22/2017 08/25/2017 Pneumococcal Vaccine: 65+ Years (3 - PPSV23 or PCV20) 08/21/2019 08/21/2018, 07/23/2017, 07/20/2012 MENINGOCOCCAL (MENACTRA/MENVEO) (3 - Risk 2-dose series) 08/04/2022 08/04/2017, 02/03/2013 COVID-19 Vaccine (4 - season) 2023 09/09/2022, 11/27/2020, 10/24/2020 Influenza Vaccine (FLU shot) (#1) 2023 09/09/2022, 06/19/2021, 06/19/2021, Additional history exists Nephrology Referral 08/12/2023 08/12/2022 PTH 08/12/2023 08/12/2022, 05/07/2022 Phosphate 08/12/2023 08/12/2022, 04/14, 04/28/2021, Additional history exists GFR 11/07/2023 05/07/2023, 07/16, 06/09/2022, Additional history exists HbA1c 11/07/2023 05/07/2023, 07/16, 10/02/2020, Additional history exists Diabetic Foot Exam 11/25/2023 11/24/2022 COLONOSCOPY-ANNUAL AGES 18-100 02/20/2024 02/19/2023 Albumin/Creatinine Ratio 05/07/2024 05/07/2023, 050 11/2021 Hgb 05/07/2024 05/07/2023, 05/15, 05/07/2022, Additional history exists DTaP,Tdap,and Td Vaccines (2 - Td or Tdap) 07/23/2027 07/23/2017 AAA Screening Completed 01/21/2022, 01/29/2020 Hepatitis C Screening Completed 05/07/2022 Colonoscopy Discontinued 02/19/2023 Colorectal Cancer Screening Discontinued Cologuard Discontinued [...] and were consensually agreed upon. Care Teams Formula Mixer Relationship Specialty Start Date End Date Abimael Us MD [address] [place] [address] PCP - General Family Medicine 02/12/22 documented as of this encounter
--- OUTSIDE RECORDS SUMMARY | 2023-12-31 22:22 | External Medical Summary | Summary of Care ---
Author Name Unknown Organization [facility] Address [address] [facility] [place] [address] Phone [phone] Care Team Providers Care Fuse Maker Name Role Phone Antonio Colon MD Primary Care Provider [phone] [phone] Reason for Visit * Reason Onset Date Comments Other 05/26/2023 Fax 05/26/2023 Encounter Details Date Type Department Care Team (Late st Contact Info) Description 05/26/2023 Telephone Cardiology, [facility] [address] [place] [address] Davy Mota MD [address] [place] [address] Other; Fax Allergies No known active allergiesdocumented as of this encounter (statuses as of 07/22/2023) Medications Medication Sig Dispensed Refills Start Date [...] 1 Tablet in the morning. 0 Active [place]-3 1000 MG Oral Capsule Take 1 Capsule by mouth in the morning. 0 Active FreeStyle Carlos 2 [place] Device Use as directed . Use to [...] in the morning. 0 08/13/2022 Active Pen [place] 32G X 4 MM Use as directed [...] Oral Tablet (Effient)Indicatio ns:Coronary artery disease involving [place] coronary artery of [place] heart without angina pectoris Take 1 Tablet [...] meals 1 Each 5 06/08/2022 3 Discontinued Juluca 50-25 MG Oral Tablet (Dolutegravir-Rilp ivirine) Take 1 Tablet by mouth daily. 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 05/07/2023 Recurrent major depressive disorder, in full rem ission 05/05/2022 Overweight (BMI 25.0-29.9) 05/02/2022 Dyslipidemia 05/02/2022 Coronary artery disease invo lving [place] coronary artery of [place] heart without angina pectoris 05/02/2022 Type 2 diabetes mellitus wit h hemoglobin A1c goal of less than 8.0% 05/02/2022 Kidney disease, chronic, stage IV (GFR 15-29 ml/ min) 05/02/2022 Old [place] (myocardial infarction) 05/02/2022 Chronic systolic (congestive) heart failure 04/14 Left bundle branch block 05/02/2022 HTN, goal below 130/80 HIV positive documented as of this encounter (statuses as of 07/22/2023) Resolved Problems Problem Noted Date Diagnosed Date Resolved Date Chronic heart failure with p reserved ejection fraction 11/24/2022 02/04/2023 ARDS (adult respiratory distress syndrome) 06/17/2012 05/02/2022 Acute pancreatitis 06/14/2012 Acute respiratory distress 06/14/2012 0 05/02/2022 documented as of this encounter (statuses as of 07/22/2023) Immunizations Name Administration Dates Next Due COVID-19 [...] encounter Miscellaneous Notes * Telephone Encounter - Kayleigh Bennett OSA - 07/21/2023 10:26 AM EST Good morning, [facility] calling again for echo stress report. The only report they received was for a resting echo. I also do not see a stress report linked in the study for his exercise stress test. If he did have the stress portion completed can that report be faxed to [phone] . Please advise. Thanks * Telephone Encounter - Chetna Gregg OSA - 05/26/2023 2:02 PM EDT Faxed. * Telephone Encounter - Rayne James OSA - 05/26/2023 1:56 PM EDT Good Afternoon, Jessica from [facility] called asking that a copy of the reports from the stress test and echocardiogram be faxed to [phone]. Please fax reports to the attention of Jessica. Thank you, Rayne James, MORGAN documented in this encounter Plan of Treatment Upcoming Encounters Date Type Department Care Team (Late st Contact Info) Description 07/23/2023 11:00 AM EST Nutrition Services Nutrition, [facility] [address] [place] [address] Rahel Kramer, FITO [address] [place] [address] 08/03/2023 6:10 PM EST Pharmacy Pharmacy, [facility] [address] [place] [address] [facility] [place] [address] Scheduled Procedures Name Priority Associated Diagnoses Date/Ti [...] 18-100 02/20/2024 02/19/2023 Albumin/Creatinine Ratio 05/07/2024 05/07/2023, 0511/2021 Hgb [...] and were consensually agreed upon. Care Teams Fuse Maker Relationship Specialty Start Date End Date Antonio Colon MD [address] [place] [address] PCP - General Family Medicine 02/12/22 documented as of this encounter
--- OUTSIDE RECORDS SUMMARY | 2023-12-31 22:22 | External Medical Summary | Summary of Care ---
Author Name Unknown Organization [facility] Address [address] [facility] [place] [address] Phone [phone] Care Team Providers Care Remote Sensing Advisor Name Role Phone Antonio Colon MD Primary Care Provider [phone] [phone] Reason for Visit * Reason Onset Date Comments Other 05/26/2023 Fax 05/26/2023 Encounter Details Date Type Department Care Team (Late st Contact Info) Description 05/26/2023 Telephone Cardiology, [facility] [address] [place] [address] Davy Mota MD [address] [place] [address] Other; Fax Allergies No known active allergiesdocumented [...] 1 Tablet in the morning. 0 Active [place]-3 1000 MG Oral Capsule Take 1 Capsule by mouth in the morning. 0 Active FreeStyle Carlos 2 [place] Device Use as directed . Use to [...] in the morning. 0 08/13/2022 Active Pen [place] 32G X 4 MM Use as directed [...] Oral Tablet (Effient)Indicatio ns:Coronary artery disease involving [place] coronary artery of [place] heart without angina pectoris Take 1 Tablet [...] Dyslipidemia 05/02/2022 Coronary artery disease invo lving [place] coronary artery of [place] heart without angina pectoris 05/02/2022 Type 2 [...] encounter Miscellaneous Notes * Telephone Encounter - Angelica Linn LPN - 07/22/2023 3:49 PM EST Stress portion of test was cancelled d/t moderate sized apical, inferior and posterior wall motion abnormality with hypokinesis and akinesis of the segments. Report faxed again with explanation. * Telephone Encounter - Kayleigh Bennett OSA - 07/21/2023 10:26 AM EST Good morning, [facility] calling again for echo stress report. The only report they received was for a resting echo. I also do not see a stress report linked in the study for his exercise stress test. If he did have the stress portion completed can that report be faxed to [phone] . Please advise. Thanks * Telephone Encounter - Chetna Gregg OSA - 05/26/2023 2:02 PM EDT Faxed. * Telephone Encounter - Rayne James OSA - 05/26/2023 1:56 PM EDT Good AfternoonJessica from [facility] called asking that a copy of the reports from the stress test and echocardiogram be faxed to [phone]. Please fax reports to the attention of Jessica. Thank you, MORGAN Cadena documented in this encounter Plan of Treatment Upcoming Encounters Date Type Department Care Team (Late st Contact Info) Description 07/23/2023 11:00 AM EST Nutrition Services Nutrition, [address] [place] [address] Rahel Kramer, RDN [address] [place] [address] 08/03/2023 6:10 PM [facility] Pharmacy Pharmacy, [facility] [address] [place] [address] [facility] [address] [place] [address] Scheduled Procedures Name Priority Associated Diagnoses Date/Ti [...] 18-100 02/20/2024 02/19/2023 Albumin/Creatinine Ratio 05/07/2024 05/07/2023, 05/0 11/2021 [...] and were consensually agreed upon. Care Teams Remote Sensing Advisor Relationship Specialty Start Date End Date Antonio Colon MD [address] [place] [address] PCP - General Family Medicine 02/12/22 documented as of this encounter
--- OUTSIDE RECORDS SUMMARY | 2023-12-31 22:22 | External Medical Summary | Summary of Care ---
Author Name Unknown Organization [facility] Address [address] [facility] [place] [address] Phone [phone] Care Team Providers Care Nut Chopper Name Role Phone Antonio Colon MD Primary Care Provider [phone] [phone] Reason for Visit * Reason Onset Date Comments Other 05/26/2023 Fax 05/26/2023 Encounter Details Date Type Department Care Team (Late st Contact Info) Description 05/26/2023 Telephone Cardiology, [facility] [address] [place] [address] Davy Mota MD [address] [place] [address] Other; Fax Allergies No known active allergiesdocumented as of this encounter (statuses as of 07/21/2023) Medications Medication Sig Dispensed Refills Start Date [...] 1 Tablet in the morning. 0 Active [place]-3 1000 MG Oral Capsule Take 1 Capsule by mouth in the morning. 0 Active FreeStyle Carlos 2 [place] Device Use as directed . Use to [...] in the morning. 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 05/07/2023 Recurrent major depressive disorder, in full rem ission 05/05/2022 Overweight (BMI 25.0-29.9) 05/02/2022 Dyslipidemia 05/02/2022 Coronary artery disease invo lving [place] coronary artery of [place] heart without angina pectoris 05/02/2022 Type 2 diabetes mellitus wit h hemoglobin A1c goal of less than 8.0% 05/02/2022 Kidney disease, chronic, stage IV (GFR 15-29 ml/ min) 05/02/2022 Old [place] (myocardial infarction) 05/02/2022 Chronic systolic (congestive) heart failure 04/14 Left bundle branch block 05/02/2022 HTN, goal below 130/80 HIV positive documented as of this encounter (statuses as of 07/21/2023) Resolved Problems Problem Noted Date Diagnosed Date Resolved Date Chronic heart failure with p reserved ejection fraction 11/24/2022 02/04/2023 ARDS (adult respiratory distress syndrome) 06/17/2012 05/02/2022 Acute pancreatitis 06/14/2012 Acute respiratory distress 06/14/2012 0 05/02/2022 documented as of this encounter (statuses as of 07/21/2023) Immunizations Name Administration Dates Next Due COVID-19 [...] - 07/21/2023 10:26 AM EST Good morning, [facility] calling again for echo stress report. The only report they received was for a resting echo. I also do not see a stress report linked in the study for his exercise stress test. If he did have the stress portion completed can that report be faxed to [phone] . Please advise. Thanks * Telephone Encounter - Chetna Gregg OSA - 05/26/2023 2:02 PM EDT Faxed. * Telephone Encounter - Rayne James OSA - 05/26/2023 1:56 PM EDT Good Afternoon, Jessica from [facility] called asking that a copy of the reports from the stress test and echocardiogram be faxed to [phone]. Please fax reports to the attention of Jessica. Thank you, Rayne James, MORGAN documented in this encounter Plan of Treatment Upcoming Encounters Date Type Department Care Team (Late st Contact Info) Description 07/23/2023 11:00 AM EST Nutrition Services Nutrition, [facility] [address] [place] [address] Rahel Kramer, FITO [address] [place] [address] 08/03/2023 6:10 PM EST Pharmacy Pharmacy, [facility] [address] [place] [address] [facility] [place] [address] Scheduled Procedures Name Priority [...] and were consensually agreed upon. Care Teams Nut Chopper Relationship Specialty Start Date End Date Antonio Colon MD [address] [place] [address] PCP - General Family Medicine 02/12/22 documented as of this encounter
--- OUTSIDE RECORDS SUMMARY | 2023-12-31 22:22 | External Medical Summary | Summary of Care ---
Author Name Unknown Organization [facility] Address [address] [facility] [place] [address] Phone [phone] Care Team Providers Care Inspector And Tester Name Role Phone Antonio Colon MD Primary Care Provider [phone] [phone] Reason for Visit * Reason Comments Appointment Encounter Details Date Type Department Care Team (Late st Contact Info) Description 07/06/2023 6:10 PM EDT Pharmacy Pharmacy, [facility] [address] [facility] [address] [facility] [address] Type 2 diabetes mellitus with hemoglobin A1c goal of less than 8.0% ([facility])* Allergies No known active allergiesdocumented as of this encounter (statuses as of 07/06/2023) Medications Medication Sig Dispensed Refills Start Date [...] 1 Tablet in the morning. 0 Active [place]-3 1000 MG Oral Capsule Take 1 Capsule by mouth in the morning. 0 Active FreeStyle Carlos 2 [place] Device Use as directed . Use to test BG E10.65 1 Each 0 02/13/2022 Active FreeStyle Carlos 2 Sensor Use as directed . Use one sensor every 14 days for blood sugar E10.65 1 Each 11 02/13/2022 Active NovoLOG FlexPen 100 UNIT/ML Subcutaneous Solution Pen-injector (insulin aspart) 10 units three times a day with meals 1 Each 5 06/08/2022 Active Calcitriol 0.5 MCG Oral Capsule (Rocaltrol)Indication s:CKD (chronic kidney disease) stage 4, GFR 15-29 ml/min (HCC) Take 1 Capsule (0.5 mcg) by mouth in the morning. 90 Capsule 5 08/12/2022 Active Sodium Bicarbonate 650 MG Oral Tablet Take 1 Tablet by mouth in the morning. 0 08/13/2022 Active Pen [place] 32G X 4 MM Use as directed [...] Oral Tablet (Effient)Indications: Coronary artery disease involving [place] coronary artery of [place] heart without angina pectoris Take 1 Tablet [...] THE MORNING. 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 05/07/2023 Recurrent major depressive disorder, in full rem ission 05/05/2022 Overweight (BMI 25.0-29.9) 05/02/2022 Dyslipidemia 05/02/2022 Coronary artery disease invo lving [place] coronary artery of [place] heart without angina pectoris 05/02/2022 Type 2 diabetes mellitus wit h hemoglobin A1c goal of less than 8.0% 05/02/2022 Kidney disease, chronic, stage IV (GFR 15-29 ml/ min) 05/02/2022 Old [place] (myocardial infarction) 05/02/2022 Chronic systolic (congestive) heart failure 04/14 Left bundle branch block 05/02/2022 HTN, goal below 130/80 HIV positive documented as of this encounter (statuses as of 07/06/2023) Resolved Problems Problem Noted Date Diagnosed Date Resolved Date Chronic heart failure with p reserved ejection fraction 11/24/2022 02/04/2023 ARDS (adult respiratory distress syndrome) 06/17/2012 05/02/2022 Acute pancreatitis 06/14/2012 Acute respiratory distress 06/14/2012 0 05/02/2022 documented as of this encounter (statuses as of 07/06/2023) Immunizations Name Administration Dates Next Due COVID-19 [...] as of this encounter Progress Notes * Yamilex Mario, set and exhibit designer - 07/06/2023 8:52 AM EDT Patient Phone Numbers Left message on patients answering machine to schedule [facility] appointment for diabetes management. [facility] message sent --no Clinic will follow up again in 4 week(s). [Attempt # 2] Thank you, Yamilex Mario Licensing Worker [facility] 07/06/2023,8:52 AM documented in this encounter Plan of Treatment Upcoming Encounters Date Type Department Care Team (Late st Contact Info) Description 07/14/2023 9:00 AM EDT Nutrition Services Nutrition, [facility] [address] [place] [address] Rahel Kramer, FITO [address] [place] [address] 08/03/2023 6:[address] [facility] Pharmacy Pharmacy, [facility] [address] [place] [address] [facility] [address] [place] [address] Scheduled Procedures Name Priority Associated Diagnoses Date/Ti [...] and were consensually agreed upon. Care Teams Inspector And Tester Relationship Specialty Start Date End Date Antonio Cooln MD [address] [place] [address] PCP - General Family Medicine 02/12/22 documented as of this encounter
[2024-01-01 04:55] LABS: Basophils # (auto) 0.04 K/uL (0.00-0.20); Basophils % (auto) 0.3 %; Eosinophils # (auto) 0.02 K/uL (0.00-0.50); Eosinophils % (auto) 0.2 %; Hematocrit (blood only) 37.6 % (42.0-52.0); Hemoglobin 12.1 g/dl (14.0-18.0); Immature Granulocytes # (auto) 0.33 K/uL (0.01-0.20); Immature Granulocytes % (auto) 2.5 %; Lymphocytes # (auto) 1.45 K/uL (1.20-3.40); Lymphocytes % (auto) 10.9 %; Mean Corpuscular Hemoglobin 26.8 pg (25.0-34.0); Mean Corpuscular Hgb Conc 32.2 g/dL (32.0-36.0); Mean Corpuscular Volume 83.2 fL (80.0-100.0); Mean Platelet Volume 8.8 fL (9.4-12.4); Monocytes # (auto) 1.49 K/uL (0.11-0.59); Monocytes % (auto) 11.2 %; Neutrophils # (auto) 9.98 K/uL (1.40-6.50); Neutrophils % (auto) 74.9 %; Platelet Count 220 K/uL (130-400); RDW Coefficient of Variation 16.5 % (11.5-14.5); RDW Standard Deviation 50.6 fL (36.4-46.3); Red Blood Count 4.52 M/uL (4.70-6.10); White Blood Count 13.31 K/ul (4.8-10.8)
[2024-01-01] MEDS: LEVOTHYROXINE SODIUM 25 MCG TABLET PO SCH (05:55)
--- NOTE | 2024-01-01 05:57 | Electrocardiogram Report ---
Test Reason : Blood Pressure : / mmHG Vent. Rate : 122 BPM Atrial Rate : 122 BPM P-R Int : 192 ms QRS Dur : 162 ms QT Int : 334 ms P-R-T Axes : 004 -18 143 degrees QTc Int : 475 ms Sinus tachycardia Left bundle branch block Abnormal ECG When compared with ECG of 30-OCT-2022 21:44, [place] interval has decreased Vent. rate has increased BY 51 BPM Confirmed by Andi Hernandez ([id number]) on 01/01/2024 5:57:10 AM Referred By: REFERRED SELF Confirmed By:Benny Hernandez
[2024-01-01 06:30] LABS: Albumin Globulin Ratio 1.3 (0.9-2); BUN Creatinine Ratio 10.9 (10-20); Bilirubin,Total 0.3 mg/dl (0.2-1.0); Calcium 8.2 mg/dl (8.6-10.3); Creatinine Clr Calc Pharmacy 6.1 ml/min; Est GFR (African American) 4.7 ml/min; Est GFR (Non-African American) 4.1 ml/min; Globulin 2.4 gm/dl (2.5-4.0); Magnesium 1.9 mg/dl (1.7-2.4); Phosphorus 10.7 mg/dl (2.5-4.9); Potassium 3.7 mmol/L (3.5-5.1); Total Protein 5.4 gm/dl (6.0-8.3)
--- NOTE | 2024-01-01 07:17 | XRay Report ---
LEFT FOOT 3 VIEWS CLINICAL HISTORY: Left foot injury. FINDINGS: 3 views of the left foot are obtained. No prior studies are available for comparison at the time of dictation. The skeletal structures are osteopenic. No fracture is seen. Mild arthritic pineda e is noted throughout the foot, greatest at the first metatarsophalangeal joint. There is a high arch . An intraosseous lipoma is suggested in the calcaneus. The overlying soft tissues are within normal limits. IMPRESSION: No acute bony abnormality is identified. Electronically signed by: Isaac Morrissey M.D. 01/01/2024 7:16 AM
--- NOTE | 2024-01-01 09:32 | Hospitalist Progress Note ---
Date of Service January 01, 2024 Assessment & Plan (1) YASIR (acute kidney injury): Plan Pt is a 68yoM with PMHx significant for chronic systolic heart failure (EF 45%, TTE 2022), CAD status post stent (2017), chronic LBBB, hypertension, hyperlipidemia, HIV on Rx, DM2 insulin requiring, CKD (baseline creatinine 2.7- 3.1), chronic anemia (baseline hemoglobin of 13), history colonic polyps/internal hemorrhoids, anal HGSIL as per records, urolithiasis, mood disorder, past tobacco abuse admitted with acute renal failure on CKD secondary to diarrheal illness and obstructive uropathy from recurrent kidney stones. Septic Shock Pt with tachycardia, leukocytosis, low BP on 12/31 UA suggestive of infection and likely infectious source Noted lesion on left foot, diarrheal illness (see below) Lactate wnl Blood Cx x2 sets pending On Zosyn, continue Currently on pressors on the ICU for BP support Appreciate welfare director recs Hydronephrosis, right Nephrolithiasis Complicated UTI CT abd /pelvis concerning for mild R hydronephrosis and possible nonobstructive nephrolithiasis Urology was consulted -Due to acute renal failure and given the hydronephrosis, Urology recommended ureteral stent placement -s/p ureteral stent placement on 12/30 Initial urine sample not suggestive of infection UA repeated on 12/31, suggestive of infection. Urine Cx pending Blood cx x2 pending On Zosyn per ICU, continue Appreciate Urology recs Acute renal Failure on CKD Baseline creatinine 2.7-3.1 Pt presented with Cr of 11 Nephrology was consulted Had stent placement by Urology, initially started on IV hydration by Nephrology with bicarb drip No improvement on 12/31 with worsening mental status and hypotension Temp femoral dialysis catheter placement by Resistance Machine Welder Setter on 12/31, s/p dialysis session that day Continue bicarb drip Nephrology consulted, appreciate recs Diarrhea Enteritis Pt with copious diarrhea C diff negative Stool Cx negative CT abd/pelvis noting an enteritis PRN loperamide IV hydration Anion gap Metabolic acidosis Anion gap elevated at 18 VBG with noted pH 7.10, CO2 22 and HCO3 7 secondary to above Nephrology consulted as above Continue to monitor Acute on chronic anemia secondary to LGIB patient nontoxic history colonic polyps/internal hemorrhoids Hgb between 11-13 Anemia labs in AM (iron panel, b12, folate) Holding home aspirin and prasugrel Follow H&H, transfuse PRBC if hemoglobin less than 8 and or for symptomatic anemia GI consult if with progression Continue to monitor Hyponatremia Sodium of 132 Continue to monitor Foot Injury, Left XRAY foot ordered Podiatry consulted, appreciate recs Intertrigo Pt with noted groin rash Desenex powder Hypothermia Hypothyroidism Pt with noted hypothermia overnight Bearhugger TSH 7.558, free T4 0.51 Started on levothyroxine 25mcg PCP followup chronic systolic heart failure patient on the dry side Echo could not be completed appropriately as pt in pain Read as characteristic for septic picture Monitor volume status hx CAD status post stent chronic LBBB Stable hyperlipidemia on statin Rx, continue HIV on Rx stable disease as per [facility] note from last month DMII insulin requiring suboptimal control as of hemoglobin A1c of 8.8 Basal/bolus insulin regimen while hospitalized mood disorder stable Diet: clear liquid diet, advance as tolerated DVT prophylaxis. SCDs Re: GI bleed Dispo: PT/OT ordered Admission and Anticipated Discharge Date Admission Date: December 31, 2023 Subjective Pt was seen in the AM. More confused today though AAOx2 to self and place and knows the year and month. Speech somewhat jarbled. Case discussed with launching pad mechanic. Recommended ICU transfer and need for dialysis. Review of Systems Review of Systems: All systems reviewed & are unremarkable except as noted in Subjective Physical Exam Physical Exam: General: Alert, orientedx2. Psych: Appropriate mood and affect Neuro: some speech and memory deficits HEENT: NC/AT CV: RRR Resp: Breath sounds clear bilaterally, no increased effort of breathing. Abdomen: Soft, nontender Extremities: No edema in lower extremities bilaterally. Results & Data Results & Data Vital Signs (Past 12 Hours) Vital Signs Temp Pulse Pulse Resp BP BP Pulse Ox 01/01/24 09:16 36.4 C 103 H 20 82/39 L 97 01/01/24 07:59 95 H 01/01/24 07:53 01/01/24 07:25 36.2 C L 77 16 89/55 L 94 01/01/24 06:05 35.7 C L 01/01/24 03:54 91 H 18 95/55 L 96 12/31/23 23:12 35.7 C L 92 H 18 92/51 L 96 12/31/23 21:56 94 H O2 Del Method 01/01/24 09:16 Room Air 01/01/24 07:59 01/01/24 07:53 Room Air 01/01/24 07:25 Room Air 01/01/24 06:05 01/01/24 03:54 Room Air 12/31/23 23:12 Room Air 12/31/23 21:56
[2024-01-01] MEDS: cefTRIAXone SODIUM 2,000 MG in DEXTROSE 5 % MINI-B 50 ML IV SCH (09:38)
[2024-01-01] MEDS: oxyCODONE HCL IR 5 MG TAB (IMMEDIATE RELEASE) PO PRN (09:39)
--- NOTE | 2024-01-01 09:47 | Nephrology Progress Note ---
Date of Service January 01, 2024 Assessment & Plan Admission and Anticipated Discharge Date Admission Date: December 31, 2023 Subjective Assessment & Plan (1) YASIR (acute kidney injury): patient baseline creatinine is about 2.7-3.2 and has had CKD 4 for many years. etiology of current YASIR is severe volume depletion from diarrhea for the last 3 weeks but can not rule out significant obstructive uropathy component. I discussed the case with Urology and the plan is to proceed with ureteric stent placement in the right side this will at least take out the obstructive component. but we will still continue with aggressive fluid and electrolyte resuscitation. at this time creatinine is 11. This is associated with very low serum bicarb of 7 but despite that potassium still on the low end of normal. such picture can happen with severe diarrhea with significant GI loss of bicarb and potassium. he needs to be on a bicarb drip with some potassium supplement. cancel Ringer lactate and will do D5 with 150 mEq of sodium bicarb at 100 mL/hour. Given that patient already had advanced CKD with a baseline creatinine of around 3 there is no guarantee that the kidney function will actually improve. severe prolonged volume depletion with diarrhea can cause ATN. For today: Despite iv fluid and Rt ureteric stent renal Status even worse. renal function not better--in fact slightly worse. bicarb only 6 despite bicarb drip. BP is lower . mental status worse. Needs ICU transfer. Needs some iv pressors. Continue bicarb drip. needs temp HD cath and Dialysis today. patient agreeable. Discussed with Primary team (2) CKD (chronic kidney disease) stage 4, GFR 15-29 ml/min: baseline CKD 4 with a creatinine anywhere from 2.7-3.2. In fact even when he was in [place] he was closely followed at [facility]. he had ESRD options class while they are and in the past has indicated he will do peritoneal dialysis if such need arise. he also claims he is on transplant list at [facility]. (3) Hydronephrosis concurrent with and due to calculi of kidney and ureter: discuss with Urology. S/p rt ureteric stent but no improvement in renal function. physical examination elderly white male who feels sick and appears ill at this time. no respiratory distress. vital signs reviewed in detail and has a blood pressure of 96/45 mucous membrane is dry neck is supple no JVD chest bilateral clear to auscultation CVS S1 and S2 regular no murmur heard abdomen is diffusely mildly tender extremities shows no edema at all skin no rash. Results & Data Vital Signs (Past 12 Hours) Vital Signs Temp Pulse Pulse Resp BP BP Pulse Ox 01/01/24 09:16 36.4 C 103 H 20 82/39 L 97 01/01/24 07:59 95 H 01/01/24 07:53 01/01/24 07:25 36.2 C L 77 16 89/55 L 94 01/01/24 06:05 35.7 C L 01/01/24 03:54 91 H 18 95/55 L 96 12/31/23 23:12 35.7 C L 92 H 18 92/51 L 96 12/31/23 21:56 94 H O2 Del Method 01/01/24 09:16 Room Air 01/01/24 07:59 01/01/24 07:53 Room Air 01/01/24 07:25 Room Air 01/01/24 06:05 01/01/24 03:54 Room Air 12/31/23 23:12 Room Air 12/31/23 21:56
--- NOTE | 2024-01-01 10:12 | Urology Progress Note ---
Date of Service January 01, 2024 Assessment & Plan (1) Hydronephrosis concurrent with and due to calculi of kidney and ureter: (2) YASIR (acute kidney injury): Plan Acutely ill in the setting of significant chronic comorbidities Unfortunately he has not seemed to turn the corner from stent placement yesterday Still with an elevated creatinine which has not budged and worsening condition overall Currently being transferred to the ICU I anticipate very little urine output, however if he bladder scans for high- volume he can be cathed he either has a straight cath or an indwelling Rodriguez catheterhe had an inflamed bladder on scope yesterday so I suspect he will not feel well with the catheter in place We will continue to monitor however his condition is certainly not improving rapidly Admission and Anticipated Discharge Date Admission Date: December 31, 2023 Subjective Status post cystoscopy, stone extraction, right ureteral stent placement yesterd ay Unfortunately no improvement today Remains hypotensive and borderline tachycardic Creatinine has not changed Nursing had difficulty with Rodriguez catheter overnight, I suspect the main issue is that he is making very little if any urine Rodriguez catheter has been removed which I think is reasonable in the current statecan always be replaced if he bladder scans for high-volume Physical Exam Physical Exam: Uncomfortable and unhealthy appearing Patient is out of breath and responding but certainly not with energy Results & Data Vital Signs (Past 12 Hours) Vital Signs Temp Pulse Pulse Resp BP BP Pulse Ox 01/01/24 09:16 36.4 C 103 H 20 82/39 L 97 01/01/24 07:59 95 H 01/01/24 07:53 01/01/24 07:25 36.2 C L 77 16 89/55 L 94 01/01/24 06:05 35.7 C L 01/01/24 03:54 91 H 18 95/55 L 96 12/31/23 23:12 35.7 C L 92 H 18 92/51 L 96 O2 Del Method 01/01/24 09:16 Room Air 01/01/24 07:59 01/01/24 07:53 Room Air 01/01/24 07:25 Room Air 01/01/24 06:05 01/01/24 03:54 Room Air 12/31/23 23:12 Room Air PG Care Time/CCT Total # of Minutes Spent Total Time Spent with Patient: Total time spent is greater than 50% in coordination of care (as documented) at patient's floor/unit and/or counseling patient: Coding Level of Care Code 75649 SUB INP/OBS CARE 2MIN Diagnoses Hydronephrosis concurrent with and due to calculi of kidney and ureter N13.2 YASIR (acute kidney injury) N17.9
[2024-01-01] MEDS ORDERED: STAT IV Infusion **Titration per Protocol STA (10:28)
[2024-01-01] MEDS ORDERED: SODIUM CHLORIDE 0.9% 1,000 ML IV PRN (10:36)
--- NOTE | 2024-01-01 10:37 | Critical Care Consultation ---
Date of Consultation January 01, 2024 Assessment & Plan (1) Septic shock: (2) Metabolic acidosis: (3) Hydronephrosis concurrent with and due to calculi of kidney and ureter: (4) HIV (human immunodeficiency virus infection): (5) CAD (coronary artery disease): 68-year-old male with history of HIV, CAD, CKD stage III and depression who presented to the hospital with septic shock secondary to pyelonephritis. Neurologic: Patient is currently with agitated delirium likely due to uremia encephalopathy. Will avoid sedating medications. Consider CT head. Pulmonary: Oxygen requirements minimal at this time. Patient with history of CAD. Will need to monitor respiratory status closely setting of acidosis. Cardiovascular: Patient with CAD. Echo with an EF of 55 to 60%. Grade 1 diastolic dysfunction and moderate aortic valve sclerosis. Will repeat an echocardiogram. Will check EKG and troponins. Hold antihypertensives. Will need to restart dual antiplatelet therapy once more stable. Gastrointestinal: Strict NPO. Start Protonix 40 mg daily. Follow-up LFTs. Renal: Patient with severe acidosis and anuric renal failure. Will start hemodialysis later today. Nephrology on board. Appreciate their input. Recheck BMP today. May give additional bicarbonate. Check lactate Infectious disease: Will start antibiotics of broad-spectrum treatment. Obtain blood cultures and urine cultures. Start vancomycin and meropenem. Patient with a known history of HIV. Will likely need ID input. Hematologic: No significant issues at present Endocrine: TSH mildly elevated on admission.Continue levothyroxine. Lines and tubes: VTE prophylaxis: SCDs CODE STATUS: Full Family at bedside: Family updated at bedside including daughter Disposition: ICU I have personally spent 52 minutes of critical care time in the direct management of this patient. This is a life/limb threatening event. This includes time spent evaluating patient, direct bedside care, chart review, placing orders, interpretation of diagnostic studies, discussion with consultants, patient, and family members, as well as other required patient management activities. This time is exclusive of all separately billable procedures, and teaching time and separate from and in addition to any other critical care service time. Thank you for allowing us to participate in the care of this patient. History of Present Illness Reason for Consultation: Septic shock with anuric renal failure Attending Physician: Laura Menjivar MD History of Present Illness 68-year-old male with a history of CKD stage III presenting to the hospital with hydronephrosis and septic shock. Ultimately transferred to the ICU due to worsening urine output, worsening mental status and hypotensive and. Upon my evaluation the patient was able to give a limited history, but denies any abdominal pain or shortness of breath. Family at bedside including mother who was able to give collateral history. She notes that he is normally able to ambulate and take care of himself. This is certainly an acute change in his mental status and physical ability. He underwent a cystoscopy with extraction of bladder stone and right retrograde pyelogram with stent placement 12/30/2013. Nephrology is on board and requesting that the patient be started on hemodialysis. I consented the family regarding hemodialysis catheter to initiate hemodialysis. Patient's family understood the risk and benefits and agreed with placement of a right IJ dialysis catheter. Patient is currently mildly tachypneic with a low blood pressure requiring phenylephrine which we are actively titrating. Allergies Allergy/AdvReac Type Severity Reaction Status Date / Time No Known Allergies Allergy Unverified 12/30/23 23:49 Home Medications Medication Instructions Recorded Confirmed Type atorvastatin 40 mg tablet 40 mg PO QAM 01/06/22 12/30/23 History dolutegravir 50 mg-rilpivirine 25 1 tab PO QAM 01/06/22 12/30/23 History mg tablet (Juluca) fluoxetine 20 mg capsule 20 mg PO QAM 01/06/22 12/30/23 History insulin aspart U-100 100 unit/mL 10 unit subcut TIDM 01/06/22 12/30/23 History (3 mL) subcutaneous pen (Novolog FlexPen U-100 Insulin aspart) multivitamin 1 tab PO QAM 01/06/22 12/30/23 History omega 6-jwg-ssk-fish oil 1,000 mg 1 cap PO QAM 01/06/22 12/30/23 History (120 mg-180 mg) capsule (Fish Oil) prasugrel 10 mg tablet 10 mg PO QAM 01/06/22 12/30/23 History calcitriol 0.5 mcg capsule 0.5 mcg PO QAM 10/31/22 12/30/23 History insulin glargine 100 unit/mL (3 22 unit subcut QAM 02/10/23 12/30/23 History mL) subcutaneous pen (Basaglar KwikPen U-100 Insulin) aspirin 81 mg tablet,delayed 81 mg PO DAILY 12/30/23 12/30/23 History release cholecalciferol (vitamin D3) 25 25 mcg PO QAM 12/30/23 12/30/23 History mcg (1,000 unit) capsule (Vitamin D3) coenzyme Q10 10 mg capsule (Co 10 mg PO DAILY 12/30/23 12/30/23 History Q-10) metoprolol succinate 25 mg 25 mg PO QAM 12/30/23 12/30/23 History tablet,extended release 24 hr Patient History Medical History (Updated 01/01/24 @ 11:50 by Devante Villa MD) Septic shock History of kidney stones Osteoarthritis Chronic lower back pain History of pancreatitis DM type 2 (diabetes mellitus, type 2) History of skin cancer HUSLIA (hard of hearing) HLD (hyperlipidemia) History of myocardial infarction 2016 & 2019 Sleep apnea no device Diverticulosis GERD (gastroesophageal reflux disease) IBS (irritable bowel syndrome) Precancerous lesion rectal CAD (coronary artery disease) Per patient, stenting x 5 in 2016 and restenting of 1 vessel performed in July 2020 Depression CKD (chronic kidney disease), stage IV follows with [facility] Nephrology HIV (human immunodeficiency virus infection) Surgical History S/P ureteral stent placement History of removal of ureteral stent History of cystoscopy History of colonoscopy History of cholecystectomy History of cardiac catheterization 2016 - stents 2019 -- restenting x 1. [facility] No pertinent past surgical history Family History Mother Heart disease Social History Smoking Status: Former smoker Tobacco Type: Cigarettes Second Hand Exposure: No; Do You Dip or Chew Tobacco: No; Hx Alcohol Use: Yes Alcohol type: beer, wine and hard liquor Alcohol Intake Frequency: Monthly or Less Hx Substance Use: No Preferred Language: Maori Communication Ability: Effective Inspector Water Pollution Control Required: No Beliefs That Will Affect Care: None Current Living Situation: Alone Feels Safe at Home: Yes Assistive Devices: None Review of Systems Review of Systems: Unobtainable due to reduced consciousness Physical Exam Physical Exam: Constitutional: Patient appears to be of their stated age. Moderately distressed Eyes: Pupils are equal round and reactive to light. Conjunctivae are normal. Anicteric sclera. Ears nose, mouth and throat: Mallampati class 2. Normal posterior oropharynx. Uvula is midline. Neck: Trachea is midline. Visual inspection is normal. Respiratory: Clear to auscultation bilaterally. No use of accessory muscles. No significant clubbing noted. Cardiovascular: Regular rate and rhythm. No murmurs. No edema. Gastrointestinal: Normal bowel sounds, soft, nontender and nondistended. No hepatosplenomegaly noted. Musculoskeletal: No cyanosis. Patient is able to move all extremities. Strength is 5 out of 5 in the upper and lower extremities. Skin: No rashes, warm dry and intact. Neurologic: No obvious focal neurological deficits seen. Psychiatric: Slurred speech. Disoriented at times. Agitated. Results & Data Results & Data Vital Signs (Past 12 Hours) Vital Signs Temp Pulse Pulse Resp BP BP Pulse Ox 01/01/24 09:16 36.4 C 103 H 20 82/39 L 97 01/01/24 07:59 95 H 01/01/24 07:53 01/01/24 07:25 36.2 C L 77 16 89/55 L 94 01/01/24 06:05 35.7 C L 01/01/24 03:54 91 H 18 95/55 L 96 12/31/23 23:12 35.7 C L 92 H 18 92/51 L 96 O2 Del Method 01/01/24 09:16 Room Air 01/01/24 07:59 01/01/24 07:53 Room Air 01/01/24 07:25 Room Air 01/01/24 06:05 01/01/24 03:54 Room Air 12/31/23 23:12 Room Air Coding Level of Care Code 40755 CRITICAL CARE 1ST 30-74M Diagnoses Septic shock A41.9; R65.21 Metabolic acidosis E87.20 Hydronephrosis concurrent with and due to calculi of kidney and ureter N13.2 HIV (human immunodeficiency virus infection) B20 CAD (coronary artery disease) I25.10
[2024-01-01] MEDS: PHENYLEPHRINE/NSS 25 MG/250 ML BAG IV SCH (10:52)
[2024-01-01] MEDS: PHENYLEPHRINE HCL 25 MG/250 ML NSS IV ONE (10:52)
[2024-01-01] MEDS ORDERED: VANCOMYCIN CONSULT ACTIVE PRN (11:52)
--- NOTE | 2024-01-01 11:59 | XRay Report ---
SINGLE VIEW CHEST CLINICAL HISTORY: Central venous catheter placement. FINDINGS: An AP, portable, upright chest radiograph is compared to study dated 12/30/2023. Correlation is made with chest CT dated 06/13/2012. A right-sided central venous catheter has been placed. The ti p of the catheter projects obliquely over the mediastinum. This does not appear to project over the i nternal jugular vein. The heart is enlarged. There is mild pulmonary vascular congestion. There is ch ronic elevation of the left hemidiaphragm with left basilar opacities. No large pleural effusion or p neumothorax is seen. The skeletal structures are osteopenic. The bony thorax is grossly intact. IMPRESSION: 1. A right-sided central venous catheter has been placed. The tip projects obliquely over the mediast inum, and this does not appear to project over the internal jugular vein. Venous positioning is not c onfirmed. Clinical correlation will be essential. 2. Cardiomegaly with mild pulmonary vascular congestion. 3. Left basilar opacities there is an atelectasis versus a mild pneumonitis. Correlate clinically. ACT 112: Negative or not required by law. Electronically signed by: Isaac Morrissey M.D. 01/01/2024 11:56 AM
[2024-01-01] MEDS ORDERED: MEROPENEM 500 MG in SYRINGE 0 ML IV STA (12:12)
[2024-01-01 12:23] LABS: Basophils # (auto) 0.02 K/uL (0.00-0.20); Basophils % (auto) 0.1 %; Eosinophils # (auto) 0.02 K/uL (0.00-0.50); Eosinophils % (auto) 0.1 %; Hematocrit (blood only) 34.3 % (42.0-52.0); Hemoglobin 11.3 g/dl (14.0-18.0); Immature Granulocytes % (auto) 1.3 %; Lymphocytes # (auto) 1.72 K/uL (1.20-3.40); Lymphocytes % (auto) 11.5 %; Mean Corpuscular Hgb Conc 32.9 g/dL (32.0-36.0); Mean Corpuscular Volume 82.1 fL (80.0-100.0); Monocytes # (auto) 1.77 K/uL (0.11-0.59); Monocytes % (auto) 11.8 %; Neutrophils # (auto) 11.24 K/uL (1.40-6.50); Neutrophils % (auto) 75.2 %; Nucleated RBC # (auto) 0.02 K/uL (0.00-0.12); Nucleated RBC % (auto) 0.1 %; Platelet Count 269 K/uL (130-400); RDW Coefficient of Variation 16.4 % (11.5-14.5); RDW Standard Deviation 49.1 fL (36.4-46.3); Red Blood Count 4.18 M/uL (4.70-6.10); White Blood Count 14.97 K/ul (4.8-10.8)
--- NOTE | 2024-01-01 12:25 | Procedure Note ---
Procedure Note Date of Service January 01, 2024 Note INTERNAL JUGULAR CENTRAL LINE PROCEDURE NOTE: Procedure: Triple-lumen hemodialysis catheter Indication: For drug administration including vasopressin medications and Anesthesia: 10 mL 1% lidocaine Consent was obtained from the patient's daughter as the patient is currently encephalopathic. All risks and benefits were explained. Consent was witnessed and signed by the nursing staff, myself and the patient's POA. A time-out was completed verifying correct patient, procedure, site, positioning, and implants(s) or special equipment if applicable. Patients right neck was cleansed and draped in the typical sterile fashion using Chloraprep. The Internal Jugular Vein and Carotid Artery were identified using ultrasound. The superficial tissue was anesthetized using 10 mL of 1% lidocaine without epinephrine under direct visualization with the ultrasound. After adequate anesthetization was achieved, the Internal Jugular vein was cannulated under direct ultrasound guidance using an introducer needle on a syringe. Good venous blood return was maintained prior to removal of syringe from introducer needle. Using Seldinger Technique, a guide wire was advanced through the introducer needle without resistance. The introducer needle was removed and ultrasound images were obtained of the guide wire within the Internal Jugular Vein and saved to the patients medical record. A small incision was made in penetrating fashion at the guide wire insertion site utilizing an 11 blade scalpel. The dilator was advanced to the vessel without resistance. The dilator was exchanged for the triple lumen catheter which was advanced into the vessel without resistance. The guide wire was removed intact from the catheter without issue. Claves were placed on each catheter tip with confirmation of good blood flow from each lumen. Each port was easily flushed with sterile saline. The catheter was placed at 30 cm and sutured in place. BioPatch was applied to the catheter and a sterile Tegaderm dressing was applied over the catheter with careful attention to sterility. Patient tolerated procedure well. No immediate complications were met. Postprocedure chest x-ray demonstrate that the catheters projecting over the mediastinum. I performed an echo with the electroencephalogram technologist. We instilled saline via the distal port with the echo probe in an apical 4 position. When the saline was instilled twice, we were clearly able to visualize bubbles in the right atrium and right ventricle which would indicate that the position of the catheter is appropriate. Coding CPT Codes Tubes, Drains, and Vasc Access - Tubes, Drains, and Vasc Access: [id number] Insertion of cannula for hemodialysis ([id number]) Tubes, Drains, and Vasc Access - Tubes, Drains, and Vasc Access: [id number] Ultrasound Guidance For Vascular ([id number]) [facility] [place] Procedure Codes (Charges) Tubes, Drains, and Vasc Access Procedure 1: Tubes, Drains, and Vasc Access: [id number] Insertion of cannula for hemodialysis Procedure 2: Tubes, Drains, and Vasc Access: [id number] Ultrasound Guidance For Vascular
[2024-01-01 12:34] LABS: Albumin Globulin Ratio 1.3 (0.9-2); BUN Creatinine Ratio 10.6 (10-20); Bilirubin,Total 0.3 mg/dl (0.2-1.0); Est GFR (African American) 4.6 ml/min; Est GFR (Non-African American) 3.9 ml/min; Globulin 2.4 gm/dl (2.5-4.0); Potassium 3.4 mmol/L (3.5-5.1); Total Protein 5.4 gm/dl (6.0-8.3)
[2024-01-01] MEDS: VANCOMYCIN HCL 1,500 MG in SODIUM CHLORIDE 0.9% 500 ML IV ONE (12:52)
[2024-01-01] MEDS: SODIUM BICARB 8.4% INJ 50 MEQ/50 ML SYR IV ONE (12:52)
[2024-01-01] MEDS: SODIUM BICARB 8.4% INJ 50 MEQ/50 ML SYR IV STA (12:52)
--- NOTE | 2024-01-01 13:49 | Procedure Note ---
Procedure Note Date of Service January 01, 2024 Note The initial right IJ hemodialysis catheter had to be removed due to lack of flow. The ports were easily flushed, but no flow was able to be aspirated back. When I remove the dialysis catheter there was clearly evidence of clot on the d istal ends of the dialysis catheter. Patient tolerated removal of dialysis catheter well. We then focused our attention on placing a right femoral venous dialysis catheter. Right femoral dialysis note Procedure: Triple-lumen femoral vein dialysis catheter insertion. Indication: Central Drug Administration, Poor Venous Access, Multiple Lab Draws Necessary, etc., need for hemodialysis Anesthesia: None/10 mL lidocaine 1% Consent was obtained from family. Consent was witnessed by nursing. Timeout performed prior to the procedure. A time-out was completed verifying correct patient, procedure, site, positioning, and implants(s) or special equipment if applicable. Patients right groin was cleansed and draped in the typical sterile fashion using Chloraprep. The Femoral Vein and Femoral Artery were identified using ultrasound. The superficial tissue was anesthetized using 10 mL of 1% lidocaine without epinephrine under direct visualization with the ultrasound. After adequate anesthetization was achieved, the Femoral Vein was cannulated under direct ultrasound guidance using an introducer needle on a syringe. Good venous blood return was maintained prior to removal of syringe from introducer needle. Using Seldinger Technique, a guide wire was advanced through the introducer needle without resistance. The introducer needle was removed and ultrasound images were obtained of the guide wire within the Femoral Vein and saved to the patients medical record. A small incision was made in penetrating fashion at the guide wire insertion site utilizing an 11 blade scalpel. The dilator was advanced to the vessel without resistance. The dilator was exchanged for the triple lumen catheter which was advanced into the vessel without resistance. The guide wire was removed intact from the catheter without issue. Claves were placed on each catheter tip with confirmation of good blood flow from each lumen. Each port was easily flushed with sterile saline. The catheter was placed at the hub and sutured in place. BioPatch was applied to the catheter and a sterile Tegaderm dressing was applied over the catheter with careful attention to sterility. Patient tolerated procedure well. No immediate complications were met. Procedure ultrasound guidance was utilized for the procedure. Coding CPT Codes Tubes, Drains, and Vasc Access - Tubes, Drains, and Vasc Access: [id number] Ultrasound Guidance For Vascular ([id number]) Tubes, Drains, and Vasc Access - Tubes, Drains, and Vasc Access: [id number] Insertion of cannula for hemodialysis ([id number]) [facility] [place] Procedure Codes (Charges) Tubes, Drains, and Vasc Access Procedure 1: Tubes, Drains, and Vasc Access: [id number] Ultrasound Guidance For Vascular Procedure 2: Tubes, Drains, and Vasc Access: [id number] Insertion of cannula for hemodialysis
[2024-01-01] MEDS: ACETAMINOPHEN 325 MG TAB PO PRN (13:54)
[2024-01-01] MEDS: PIPER/TAZO 4.5g in D5W MINI-B 100 ML IV STA (13:55)
[2024-01-01] MEDS: ALBUMIN 25% 12.5 GM/50 ML VIAL IV ONE (14:30)
[2024-01-01 14:53] LABS: Appearance Urine Turbid (Clear); Bacteria Urine Automated 2+ (None Seen); Bilirubin Urine Negative (Negative); Blood Urine 3+ (Negative); Cast Urine Automated 0-2 /lpf (0-2); Color Urine Red; Epithelial Cell Urine Auto 0-2 /hpf (0-2); Glucose Urine UA Trace (Negative); Ketones Urine Trace (Negative); Leukocyte Esterase Urine 2+ (Negative); Nitrite Urine Negative (Negative); Protein Urine 3+ (Negative); RBC Urine Automated >20 /hpf (0-2); Specific Gravity Urine 1.014 (1.000-1.030); Urobilinogen Urine Negative (Negative); WBC Urine Automated >50 /hpf (0-5)
[2024-01-01] MEDS: SODIUM CHLORIDE 0.9% 500 ML IV ONE (15:04)
--- NOTE | 2024-01-01 15:06 | XCELERA ---
[id number]
[2024-01-01] MEDS: HEPARIN SOD (PORCINE) 1000 UNIT/ML IV ONE (15:22)
[2024-01-01] MEDS: HEPARIN SOD (PORCINE) 1000 UNIT/ML IV SCH (15:57)
[2024-01-01 18:45] LABS: Troponin I High Sensitivity 20.4 pg/ml (0-20)
[2024-01-01 19:41] LABS: BUN Creatinine Ratio 10.3 (10-20); Calcium 8.1 mg/dl (8.6-10.3); Creatinine Clr Calc Pharmacy 9.6 ml/min; Est GFR (African American) 8.2 ml/min; Potassium 2.8 mmol/L (3.5-5.1)
[2024-01-01 19:50] LABS: Base Excess VBG -10.4 mEq/L; HCO3 VBG 16 mmol/L; Oxygen Saturation VBG 76.2 %; PCO2 VBG 35 mmHg (38-50); PO2 VBG 47 mmHg; pH VBG 7.26 (7.36-7.41)
[2024-01-01 20:48] LABS: BUN Creatinine Ratio 10.4 (10-20); Calcium 7.7 mg/dl (8.6-10.3); Creatinine Clr Calc Pharmacy 9.8 ml/min; Est GFR (African American) 8.3 ml/min; Est GFR (Non-African American) 7.2 ml/min; Potassium 2.6 mmol/L (3.5-5.1)
[2024-01-01] MEDS: PIPER/TAZO 4.5g in D5W MINI-B 100 ML IV SCH (21:29)
[2024-01-01] MEDS: PROMETHAZINE HCL 6.25 MG in SODIUM CHLORIDE 0.9% 50 ML IV PRN (21:29)
[2024-01-01] MEDS: POTASSIUM CHLORIDE / WTR 20 MEQ/100 ML PLCT IV SCH (22:01)
[2024-01-01 22:34] LABS: Magnesium 1.7 mg/dl (1.7-2.4)
[2024-01-02 05:18] LABS: Basophils # (auto) 0.03 K/uL (0.00-0.20); Basophils % (auto) 0.3 %; Eosinophils # (auto) 0.21 K/uL (0.00-0.50); Hematocrit (blood only) 29.9 % (42.0-52.0); Hemoglobin 10.3 g/dl (14.0-18.0); Immature Granulocytes # (auto) 0.09 K/uL (0.01-0.20); Immature Granulocytes % (auto) 0.9 %; Lymphocytes # (auto) 1.41 K/uL (1.20-3.40); Lymphocytes % (auto) 13.4 %; Mean Corpuscular Hemoglobin 27.3 pg (25.0-34.0); Mean Corpuscular Hgb Conc 34.4 g/dL (32.0-36.0); Mean Corpuscular Volume 79.3 fL (80.0-100.0); Mean Platelet Volume 8.6 fL (9.4-12.4); Monocytes # (auto) 1.95 K/uL (0.11-0.59); Monocytes % (auto) 18.5 %; Neutrophils # (auto) 6.83 K/uL (1.40-6.50); Neutrophils % (auto) 64.9 %; Platelet Count 192 K/uL (130-400); RDW Coefficient of Variation 16.3 % (11.5-14.5); RDW Standard Deviation 46.7 fL (36.4-46.3); Red Blood Count 3.77 M/uL (4.70-6.10); White Blood Count 10.52 K/ul (4.8-10.8)
[2024-01-02 05:57] LABS: Alanine Aminotransferase 18 U/L (7-52); Albumin Globulin Ratio 1.4 (0.9-2); Alkaline Phosphatase 75 U/L (34-104); Anion Gap 15 (3-11); Aspartate Aminotransferase 30 U/L (13-39); BUN Creatinine Ratio 9.9 (10-20); Bilirubin,Total 0.4 mg/dl (0.2-1.0); Blood Urea Nitrogen 73 mg/dl (6-23); Calcium 7.8 mg/dl (8.6-10.3); Carbon Dioxide 19 mmol/L (21-32); Chloride 103 mmol/L (98-107); Creatinine Clr Calc Pharmacy 9.3 ml/min; Est GFR (African American) 7.9 ml/min; Est GFR (Non-African American) 6.8 ml/min; Ferritin 116.8 ng/ml (8-388); Globulin 2.2 gm/dl (2.5-4.0); Glucose 162 mg/dl (70-99(Fasting)); Iron 133 mcg/dl (35-175); Magnesium 1.7 mg/dl (1.7-2.4); Phosphorus 5.7 mg/dl (2.5-4.9); Potassium 2.8 mmol/L (3.5-5.1); Sodium 137 mmol/L (136-145); Total Protein 5.2 gm/dl (6.0-8.3); Unsaturated Iron Binding Cap < 55 mcg/dl (155-355)
[2024-01-02 06:01] LABS: Folate (Folic Acid),Ser orPlas 11.55 ng/ml (>5.38)
[2024-01-02] MEDS: POTASSIUM CHLORIDE / WTR 20 MEQ/100 ML PLCT IV SCH ×2 (06:30→19:38)
[2024-01-02] MEDS: MAGNESIUM SULFATE / D5W 1 GM/100 ML BAG IV SCH (06:45)
[2024-01-02] MEDS ORDERED: SODIUM CHLORIDE 0.9% 1,000 ML IV PRN (09:00)
--- NOTE | 2024-01-02 10:04 | Critical Care Progress Note ---
Date of Service January 02, 2024 Assessment & Plan (1) Septic shock: (2) Metabolic acidosis: (3) Hydronephrosis concurrent with and due to calculi of kidney and ureter: (4) HIV (human immunodeficiency virus infection): (5) CAD (coronary artery disease): Plan: 68-year-old male with history of HIV, CAD, CKD stage III and depression who presented to the hospital with septic shock secondary to pyelonephritis. Neurologic: Neurological status improving with decreasing BUN. Suspect he had an element of uremic encephalopathy. Pulmonary: Oxygen requirements minimal at this time. Patient with history of CAD. Cardiovascular: Patient with CAD. Repeat echo 01/01/2024 was a limited study, but normal LV function noted with 65 to 70%. He was a bit hyperdynamic on his left ventricle. Right ventricle appeared normal. Restart aspirin and prasugrel for history of CAD. Gastrointestinal: Strict NPO. Start Protonix 40 mg daily. Follow-up LFTs. Renal: Urine output remains minimal. He still is mildly acidotic. Will undergo hemodialysis today via right femoral catheter which was placed 01/01/2024 Infectious disease: Follow blood cultures and urine cultures. Continue empiric antibiotics with Zosyn and vancomycin.Check C. difficile given diarrhea. Patient with known HIV. Continue home HIV medications Hematologic: No significant issues at present Endocrine: TSH mildly elevated on admission.Continue levothyroxine. Lines and tubes: VTE prophylaxis: SCDs CODE STATUS: Full Family at bedside: None currently available at bedside. Disposition: Possibly downgrade out of ICU if able to wean off pressors I have personally spent 38 minutes of critical care time in the direct management of this patient. This is a life/limb threatening event. This includes time spent evaluating patient, direct bedside care, chart review, placing orders, interpretation of diagnostic studies, discussion with consultants, patient, and family members, as well as other required patient management activities. This time is exclusive of all separately billable procedures, and teaching time and separate from and in addition to any other critical care service time. Thank you for allowing us to participate in the care of this patient. Admission and Anticipated Discharge Date Admission Date: December 31, 2023 Subjective Patient much more alert and awake today. Remains on low-dose phenylephrine. Denies any overt complaints. Plan to undergo second session of hemodialysis today. Review of Systems Review of Systems: All systems reviewed & are unremarkable except as noted in HPI & below Physical Exam Physical Exam: Constitutional: Patient appears to be of their stated age. Moderately distressed Eyes: Pupils are equal round and reactive to light. Conjunctivae are normal. Anicteric sclera. Ears nose, mouth and throat: Mallampati class 2. Normal posterior oropharynx. Uvula is midline. Neck: Trachea is midline. Visual inspection is normal. Respiratory: Clear to auscultation bilaterally. No use of accessory muscles. No significant clubbing noted. Cardiovascular: Regular rate and rhythm. No murmurs. No edema. Right femoral dialysis catheter in place. Gastrointestinal: Normal bowel sounds, soft, nontender and nondistended. No hepatosplenomegaly noted. Musculoskeletal: No cyanosis. Patient is able to move all extremities. Strength is 5 out of 5 in the upper and lower extremities. Skin: No rashes, warm dry and intact. Neurologic: No obvious focal neurological deficits seen. Psychiatric: Alert and oriented x 3. Calm. Results & Data Results & Data Vital Signs (Past 12 Hours) Vital Signs Temp Pulse Resp BP Pulse Ox Pulse Ox O2 Del Method 01/02/24 09:35 96 H 01/02/24 09:30 133/75 01/02/24 09:30 37.0 C 89 14 93 01/02/24 09:00 126/82 01/02/24 09:00 37.0 C 92 H 9 L 94 01/02/24 08:30 141/76 H 01/02/24 08:30 36.9 C 90 19 96 01/02/24 08:00 146/72 H 01/02/24 08:00 36.9 C 90 31 H 94 01/02/24 07:31 37.0 C 96 H 17 95 01/02/24 07:31 138/55 L 01/02/24 07:00 139/82 01/02/24 07:00 37.0 C 97 H 21 95 01/02/24 06:30 37.0 C 90 18 93 01/02/24 06:30 127/71 01/02/24 06:00 137/81 01/02/24 06:00 37.0 C 93 H 17 137/81 93 01/02/24 05:30 153/79 H 01/02/24 05:30 37.0 C 94 H 18 95 04/21/24 05:00 120/67 01/02/24 05:00 37.0 C 97 H 16 91 01/02/24 04:30 37.0 C 93 H 14 95 01/02/24 04:30 136/82 01/02/24 04:00 37.0 C 94 H 16 01/02/24 04:00 127/66 01/02/24 04:00 95 Room Air 01/02/24 03:30 139/76 01/02/24 03:30 37.0 C 91 H 13 94 01/02/24 03:00 131/80 01/02/24 03:00 37.0 C 01/02/24 02:31 37.0 C 92 H 17 96 01/02/24 02:31 109/87 01/02/24 02:00 121/79 01/02/24 02:00 37.0 C 96 H 5 L 93 01/02/24 01:30 101/60 01/02/24 01:30 37.1 C 103 H 25 H 93 01/02/24 01:00 108/57 L 01/02/24 01:00 37.1 C 103 H 24 96 01/02/24 00:30 37.1 C 110 H 16 96 01/02/24 00:30 108/69 01/02/24 00:30 120 H 01/02/24 00:00 113/59 L 01/02/24 00:00 37.1 C 99 H 21 97 01/02/24 00:00 96 H 01/01/24 23:30 139/76 01/01/24 23:30 37.0 C 95 H 12 97 01/01/24 23:14 140/79 01/01/24 23:14 37.0 C 98 H 25 H 97 01/01/24 22:30 36.9 C 101 H 23 99 01/01/24 22:30 117/77 01/01/24 22:01 36.8 C 95 H 18 01/01/24 22:01 127/74 Coding Level of Care Code 17845 CRITICAL CARE 1ST 30-74M Diagnoses Septic shock A41.9; R65.21 Metabolic acidosis E87.20 Hydronephrosis concurrent with and due to calculi of kidney and ureter N13.2 HIV (human immunodeficiency virus infection) B20 CAD (coronary artery disease) I25.10
[2024-01-02] MEDS: HEPARIN SOD (PORCINE) 1000 UNIT/ML IV SCH (11:25)
[2024-01-02] MEDS: HEPARIN SOD (PORCINE) 1000 UNIT/ML IV ONE (11:25)
--- NOTE | 2024-01-02 12:07 | Dialysis Progress Note ---
Date of Service January 02, 2024 Assessment & Plan Admission and Anticipated Discharge Date Admission Date: December 31, 2023 Subjective Assessment & Plan (1) YASIR (acute kidney injury): patient baseline creatinine is about 2.7-3.2 and has had CKD 4 for many years. etiology of current YASIR is severe volume depletion which then caused ATN---from diarrhea for the last 3 weeks but can not rule out significant obstructive uropathy component. I discussed the case with Urology and the plan is to proceed with ureteric stent placement in the right side this will at least take out the obstructive component. but we will still continue with aggressive fluid and electrolyte resuscitation. at this time creatinine is 11. This is associated with very low serum bicarb of 7 but despite that potassium still on the low end of normal. such picture can happen with severe diarrhea with significant GI loss of bicarb and potassium. he needs to be on a bicarb drip with some potassium supplement. cancel Ringer lactate and will do D5 with 150 mEq of sodium bicarb at 100 mL/hour. Given that patient already had advanced CKD with a baseline creatinine of around 3 there is no guarantee that the kidney function will actually improve. severe prolonged volume depletion with diarrhea can cause ATN. Recommend Despite iv fluid and Rt ureteric stent renal Status even worse. renal function not better--in fact slightly worse. bicarb only 6 despite bicarb drip. mental status worse. So After ICU transfer had dialysis yesterday and now again today. BP is better. mental status also slightly better. Can stop Bicarb drip now kerry given Low K--Still has diarrhea Will watch I and O and daily labs---High chance he may not recover renal function. Will be evident in the coming days. K only 2.8 so give another 80 meq of kcl slowly. We dont have 4 K bath and do 3 K bath Change to ringer lactate at 80 ml/hr Also given h/o Long standing HIV and HIV rx for long time--consider ID consult to give advice in view of renal failure (2) CKD (chronic kidney disease) stage 4, GFR 15-29 ml/min: baseline CKD 4 with a creatinine anywhere from 2.7-3.2. In fact even when he was in [place] he was closely followed at [facility]. he had ESRD options class while there and in the past has indicated he will do peritoneal dialysis if such need arise. He also claims he is on transplant list at [facility]. (3) Hydronephrosis concurrent with and due to calculi of kidney and ureter: discuss with Urology. S/p rt ureteric stent but no improvement in renal function. S----seen during dialysis. CVC fine. No edema. Making little urine--440 ml yesterday. has lot of Diarrhea physical examination elderly white male . no respiratory distress. mucous membrane is dry neck is supple no JVD chest bilateral clear to auscultation CVS S1 and S2 regular no murmur heard abdomen is diffusely mildly tender extremities shows no edema at all skin no rash. Results & Data Vital Signs (Past 12 Hours) Vital Signs Temp Pulse Pulse Resp BP Pulse Ox Pulse Ox 01/02/24 11:30 137/91 01/02/24 11:30 36.8 C 87 24 96 01/02/24 11:30 86 137/91 01/02/24 11:00 138/78 01/02/24 11:00 36.9 C 86 15 96 01/02/24 11:00 86 138/78 01/02/24 10:30 84 126/77 01/02/24 10:05 115/70 01/02/24 10:05 37.1 C 85 22 94 01/02/24 10:04 84 115/70 01/02/24 10:00 37.1 C 87 17 93 01/02/24 10:00 131/72 01/02/24 09:45 37.1 C 85 01/02/24 09:35 96 H 01/02/24 09:30 133/75 01/02/24 09:30 37.0 C 89 14 93 01/02/24 09:00 126/82 01/02/24 09:00 37.0 C 92 H 9 L 94 01/02/24 08:30 141/76 H 01/02/24 08:30 36.9 C 90 19 96 01/02/24 08:00 146/72 H 01/02/24 08:00 36.9 C 90 31 H 94 01/02/24 07:31 37.0 C 96 H 17 95 01/02/24 07:31 138/55 L 01/02/24 07:00 139/82 01/02/24 07:00 37.0 C 97 H 21 95 01/02/24 06:30 37.0 C 90 18 93 01/02/24 06:30 127/71 01/02/24 06:00 137/81 01/02/24 06:00 37.0 C 93 H 17 137/81 93 01/02/24 05:30 153/79 H 01/02/24 05:30 37.0 C 94 H 18 95 01/02/24 05:00 120/67 01/02/24 05:00 37.0 C 97 H 16 91 01/02/24 04:30 37.0 C 93 H 14 95 01/02/24 04:30 136/82 01/02/24 04:00 37.0 C 94 H 16 01/02/24 04:00 127/66 01/02/24 04:00 95 01/02/24 03:30 139/76 01/02/24 03:30 37.0 C 91 H 13 94 01/02/24 03:00 131/80 01/02/24 03:00 37.0 C 01/02/24 02:31 37.0 C 92 H 17 96 01/02/24 02:31 109/87 01/02/24 02:00 121/79 01/02/24 02:00 37.0 C 96 H 5 L 93 01/02/24 01:30 101/60 01/02/24 01:30 37.1 C 103 H 25 H 93 01/02/24 01:00 108/57 L 01/02/24 01:00 37.1 C 103 H 24 96 01/02/24 00:30 37.1 C 110 H 16 96 01/02/24 00:30 108/69 01/02/24 00:30 120 H O2 Del Method 01/02/24 11:30 01/02/24 11:30 01/02/24 11:30 01/02/24 11:00 01/02/24 11:00 01/02/24 11:00 01/02/24 10:30 01/02/24 10:05 01/02/24 10:05 01/02/24 10:04 01/02/24 10:00 01/02/24 10:00 01/02/24 09:45 01/02/24 09:35 01/02/24 09:30 01/02/24 09:30 01/02/24 09:00 01/02/24 09:00 01/02/24 08:30 01/02/24 08:30 01/02/24 08:00 01/02/24 08:00 01/02/24 07:31 01/02/24 07:31 01/02/24 07:00 01/02/24 07:00 01/02/24 06:30 01/02/24 06:30 01/02/24 06:00 01/02/24 06:00 01/02/24 05:30 01/02/24 05:30 01/02/24 05:00 01/02/24 05:00 01/02/24 04:30 01/02/24 04:30 01/02/24 04:00 01/02/24 04:00 01/02/24 04:00 Room Air 01/02/24 03:30 01/02/24 03:30 01/02/24 03:00 01/02/24 03:00 01/02/24 02:31 01/02/24 02:31 01/02/24 02:00 01/02/24 02:00 01/02/24 01:30 01/02/24 01:30 01/02/24 01:00 01/02/24 01:00 01/02/24 00:30 01/02/24 00:30 01/02/24 00:30
--- NOTE | 2024-01-02 12:15 | Hospitalist Progress Note ---
Date of Service January 02, 2024 Assessment & Plan (1) YASIR (acute kidney injury): Plan Pt is a 68yoM with PMHx significant for chronic systolic heart failure (EF 45%, TTE 2022), CAD status post stent (2017), chronic LBBB, hypertension, hyperlipidemia, HIV on Rx, DM2 insulin requiring, CKD (baseline creatinine 2.7- 3.1), chronic anemia (baseline hemoglobin of 13), history colonic polyps/internal hemorrhoids, anal HGSIL as per records, urolithiasis, mood disorder, past tobacco abuse admitted with acute renal failure on CKD secondary to diarrheal illness and obstructive uropathy from recurrent kidney stones. Septic Shock Pt with tachycardia, leukocytosis, low BP on 12/31 UA suggestive of infection and likely infectious source Noted lesion on left foot, diarrheal illness (see below) Lactate wnl Blood Cx x2 sets NGTD Urine Cx NGTD On Zosyn, continue Currently on pressors on the ICU for BP support Appreciate appointment clerk recs Hydronephrosis, right Nephrolithiasis Complicated UTI CT abd /pelvis concerning for mild R hydronephrosis and possible nonobstructive nephrolithiasis Urology was consulted -Due to acute renal failure and given the hydronephrosis, Urology recommended ureteral stent placement -s/p ureteral stent placement on 12/30 Initial urine sample not suggestive of infection UA repeated on 12/31, suggestive of infection. Urine Cx pending Blood cx x2 NGTD On Zosyn per ICU, continue Appreciate Urology recs Acute renal Failure on CKD Baseline creatinine 2.7-3.1 Pt presented with Cr of 11 Nephrology was consulted Had stent placement by Urology, initially started on IV hydration by Nephrology with bicarb drip No improvement on 12/31 with worsening mental status and hypotension Temp femoral dialysis catheter placement by Cardiothoracic Surgeon on 12/31, s/p dialysis session that day Continue bicarb drip Nephrology consulted, appreciate recs Diarrhea Enteritis Pt with copious diarrhea C diff negative Stool Cx negative CT abd/pelvis noting an enteritis PRN loperamide IV hydration Anion gap Metabolic acidosis Anion gap elevated at 18 VBG with noted pH 7.10, CO2 22 and HCO3 7 secondary to above Nephrology consulted as above Continue to monitor Acute on chronic anemia secondary to LGIB patient nontoxic history colonic polyps/internal hemorrhoids Hgb between 11-13 Anemia labs in AM (iron panel, b12, folate) Holding home aspirin and prasugrel Follow H&H, transfuse PRBC if hemoglobin less than 8 and or for symptomatic anemia GI consult if with progression Continue to monitor Hyponatremia Sodium of 132 Continue to monitor Foot Injury, Left XRAY foot ordered Podiatry consulted, appreciate recs Intertrigo Pt with noted groin rash Desenex powder Hypothermia Hypothyroidism Pt with noted hypothermia overnight Bearhugger TSH 7.558, free T4 0.51 Started on levothyroxine 25mcg PCP followup chronic systolic heart failure patient on the dry side Echo could not be completed appropriately as pt in pain Read as characteristic for septic picture Monitor volume status hx CAD status post stent chronic LBBB Stable hyperlipidemia on statin Rx, continue HIV on Rx stable disease as per [facility] [place] last month DMII insulin requiring suboptimal control as of hemoglobin A1c of 8.8 Basal/bolus insulin regimen while hospitalized mood disorder stable Diet: clear liquid diet, advance as tolerated DVT prophylaxis. SCDs Re: GI bleed Dispo: PT/OT ordered Admission and Anticipated Discharge Date Admission Date: December 31, 2023 Subjective Pt seen in the ICU. On dialysis Review of Systems Review of Systems: All systems reviewed & are unremarkable except as noted in Subjective Physical Exam Physical Exam: General: Alert Psych: Appropriate mood and affect Neuro: some speech and memory deficits HEENT: NC/AT CV: RRR Resp: Breath sounds clear bilaterally, no increased effort of breathing. Abdomen: Soft, nontender Extremities: No edema in lower extremities bilaterally. Results & Data Results & Data Vital Signs (Past 12 Hours) Vital Signs Temp Pulse Pulse Resp BP Pulse Ox Pulse Ox 01/02/24 11:30 137/91 01/02/24 11:30 36.8 C 87 24 96 01/02/24 11:30 86 137/91 01/02/24 11:00 138/78 01/02/24 11:00 36.9 C 86 15 96 01/02/24 11:00 86 138/78 01/02/24 10:30 84 126/77 01/02/24 10:05 115/70 01/02/24 10:05 37.1 C 85 22 94 01/02/24 10:04 84 115/70 01/02/24 10:00 37.1 C 87 17 93 01/02/24 10:00 131/72 01/02/24 09:45 37.1 C 85 01/02/24 09:35 96 H 01/02/24 09:30 133/75 01/02/24 09:30 37.0 C 89 14 93 01/02/24 09:00 126/82 01/02/24 09:00 37.0 C 92 H 9 L 94 01/02/24 08:30 141/76 H 01/02/24 08:30 36.9 C 90 19 96 01/02/24 08:00 146/72 H 01/02/24 08:00 36.9 C 90 31 H 94 01/02/24 07:31 37.0 C 96 H 17 95 01/02/24 07:31 138/55 L 01/02/24 07:00 139/82 01/02/24 07:00 37.0 C 97 H 21 95 01/02/24 06:30 37.0 C 90 18 93 01/02/24 06:30 127/71 01/02/24 06:00 137/81 01/02/24 06:00 37.0 C 93 H 17 137/81 93 01/02/24 05:30 153/79 H 01/02/24 05:30 37.0 C 94 H 18 95 01/02/24 05:00 120/67 01/02/24 05:00 37.0 C 97 H 16 91 01/02/24 04:30 37.0 C 93 H 14 95 01/02/24 04:30 136/82 01/02/24 04:00 37.0 C 94 H 16 01/02/24 04:00 127/66 01/02/24 04:00 95 01/02/24 03:30 139/76 01/02/24 03:30 37.0 C 91 H 13 94 01/02/24 03:00 131/80 01/02/24 03:00 37.0 C 01/02/24 02:31 37.0 C 92 H 17 96 01/02/24 02:31 109/87 01/02/24 02:00 121/79 01/02/24 02:00 37.0 C 96 H 5 L 93 01/02/24 01:30 101/60 01/02/24 01:30 37.1 C 103 H 25 H 93 01/02/24 01:00 108/57 L 01/02/24 01:00 37.1 C 103 H 24 96 01/02/24 00:30 37.1 C 110 H 16 96 01/02/24 00:30 108/69 01/02/24 00:30 120 H O2 Del Method 01/02/24 11:30 01/02/24 11:30 01/02/24 11:30 01/02/24 11:00 01/02/24 11:00 01/02/24 11:00 01/02/24 10:30 01/02/24 10:05 01/02/24 10:05 01/02/24 10:04 01/02/24 10:00 01/02/24 10:00 01/02/24 09:45 01/02/24 09:35 01/02/24 09:30 01/02/24 09:30 01/02/24 09:00 01/02/24 09:00 01/02/24 08:30 01/02/24 08:30 01/02/24 08:00 01/02/24 08:00 01/02/24 07:31 01/02/24 07:31 01/02/24 07:00 01/02/24 07:00 01/02/24 06:30 01/02/24 06:30 01/02/24 06:00 01/02/24 06:00 01/02/24 05:30 01/02/24 05:30 01/02/24 05:00 01/02/24 05:00 01/02/24 04:30 01/02/24 04:30 01/02/24 04:00 01/02/24 04:00 01/02/24 04:00 Room Air 01/02/24 03:30 01/02/24 03:30 01/02/24 03:00 01/02/24 03:00 01/02/24 02:31 01/02/24 02:31 01/02/24 02:00 01/02/24 02:00 01/02/24 01:30 01/02/24 01:30 01/02/24 01:00 01/02/24 01:00 01/02/24 00:30 01/02/24 00:30 01/02/24 00:30
[2024-01-02] MEDS: PANTOprazole 40 MG in SYRINGE 0 ML IV SCH (13:32)
[2024-01-02] MEDS: ASPIRIN 81 MG ECTAB PO SCH (13:34)
[2024-01-02] MEDS: POTASSIUM CHLORIDE CRTAB 20 MEQ TABCR PO SCH (13:41)
[2024-01-02 15:40] LABS: BUN Creatinine Ratio 9.2 (10-20); Creatinine Clr Calc Pharmacy 15.9 ml/min; Est GFR (African American) 13.7 ml/min; Est GFR (Non-African American) 11.8 ml/min; Magnesium 1.9 mg/dl (1.7-2.4)
[2024-01-02] MEDS ORDERED: MEROPENEM 500 MG in SYRINGE 0 ML IV SCH (16:00)
[2024-01-02] MEDS ORDERED: PLASMA-LYTE A 1,000 ML IV SCH (16:00)
[2024-01-02] MEDS: LACTATED RINGER'S 1,000 ML IV SCH (16:05)
[2024-01-02] MEDS: MAGNESIUM SULFATE / D5W 1 GM/100 ML BAG IV ONE (19:38)
[2024-01-03 05:24] LABS: Albumin Globulin Ratio 1.4 (0.9-2); Albumin Level 2.8 gm/dl (3.4-5.0); BUN Creatinine Ratio 8.6 (10-20); Bilirubin,Total 0.4 mg/dl (0.2-1.0); Calcium 8.2 mg/dl (8.6-10.3); Creatinine Clr Calc Pharmacy 13.6 ml/min; Est GFR (African American) 11.3 ml/min; Est GFR (Non-African American) 9.7 ml/min; Magnesium 2.1 mg/dl (1.7-2.4); Phosphorus 2.9 mg/dl (2.5-4.9); Potassium 3.6 mmol/L (3.5-5.1); Total Protein 4.8 gm/dl (6.0-8.3)
[2024-01-03 05:27] LABS: Basophils # (auto) 0.02 K/uL (0.00-0.20); Basophils % (auto) 0.4 %; Eosinophils # (auto) 0.27 K/uL (0.00-0.50); Hematocrit (blood only) 27.4 % (42.0-52.0); Hemoglobin 9.2 g/dl (14.0-18.0); Immature Granulocytes # (auto) 0.03 K/uL (0.01-0.20); Immature Granulocytes % (auto) 0.6 %; Lymphocytes # (auto) 0.94 K/uL (1.20-3.40); Lymphocytes % (auto) 17.4 %; Mean Corpuscular Hemoglobin 27.2 pg (25.0-34.0); Mean Corpuscular Hgb Conc 33.6 g/dL (32.0-36.0); Mean Corpuscular Volume 81.1 fL (80.0-100.0); Mean Platelet Volume 8.5 fL (9.4-12.4); Monocytes # (auto) 0.93 K/uL (0.11-0.59); Monocytes % (auto) 17.2 %; Neutrophils # (auto) 3.21 K/uL (1.40-6.50); Neutrophils % (auto) 59.4 %; Platelet Count 118 K/uL (130-400); RDW Coefficient of Variation 16.7 % (11.5-14.5); RDW Standard Deviation 49.3 fL (36.4-46.3); Red Blood Count 3.38 M/uL (4.70-6.10)
--- NOTE | 2024-01-03 05:49 | Electrocardiogram Report ---
Test Reason : Blood Pressure : / mmHG Vent. Rate : 110 BPM Atrial Rate : 104 BPM P-R Int : 000 ms QRS Dur : 170 ms QT Int : 466 ms P-R-T Axes : 000 -24 118 degrees QTc Int : 630 ms Sinus tachycardia Left bundle branch block Abnormal ECG When compared with ECG of 30-DEC-2023 21:05, No significant change Confirmed by Himanshu Dean ([id number]) on 01/03/2024 5:48:52 AM Referred By: REFERRED SELF Confirmed By:Himanshu Dean
--- NOTE | 2024-01-03 06:55 | Nephrology Progress Note ---
Date of Service January 03, 2024 Assessment & Plan (1) YASIR (acute kidney injury): Plan: patient baseline creatinine is about 2.7-3.2 and has had CKD 4 for many years. etiology of current YASIR is severe volume depletion from diarrhea for the last 3 weeks but can not rule out significant obstructive uropathy component. s/p R ureteric stent. but we will still continue with aggressive fluid and electrolyte resuscitation. admission creatinine is 11. This is associated with very low serum bicarb of 7 but despite that potassium still on the low end of normal. such picture can happen with severe diarrhea with significant GI loss of bicarb and potassium. he had HD 12/31 and 01/01 and again today given that patient already had advanced CKD with a baseline creatinine of around 3 there is no guarantee that the kidney function will actually improve to where he can function w/o renal replacement therapy. severe prolonged volume depletion with diarrhea can cause ATN. 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 (2) CKD (chronic kidney disease) stage 4, GFR 15-29 ml/min: Plan: baseline CKD 4 with a creatinine anywhere from 2.7-3.2. In fact even when he was in [place] he was closely followed at [facility]. he had ESRD options class and in the past has indicated he will do peritoneal dialysis if such need arises. he also claims he is on transplant list at [facility]. (3) Hydronephrosis concurrent with and due to calculi of kidney and ureter: Plan: s/p R ureteral stent 12/29 Admission and Anticipated Discharge Date Admission Date: December 31, 2023 Subjective tolerated HD today w/ no UF, 2.5 hours. marked sob he tells me. no n/v, taking sips; evenings past 2 has sundowned and had large liquid BM w/ encephalopathy Review of Systems 2 Review of Systems: All systems reviewed & are unremarkable except as noted in Subjective Physical Exam 2 Constitutional: well developed, well nourished and cooperative; no acute distress Eyes: EOM intact bilaterally ENMT: Ears: no external ear abnormality Nose: no external nose abnormality Mouth: + dry oral mucous membranes Neck: no nuchal rigidity Respiratory: normal respiratory effort Auscultation: + diminished lung sounds (kerry L base) and + crackles (thick R base and some L caudal to diminished sounds) Cardiovascular: Rate/Rhythm: regular rate and regular rhythm Extremities: n o edema Gastrointestinal (Abdomen): Inspection/Auscultation: normal bowel sounds P ercussion/Palpation: abdomen soft and + ascites; abdomen nontender Musculoskeletal: Extremities: strength 5/5 throughout Skin: no rashes, warm and dry Neurologic: miranda, fluent speech, no tremor Psychiatric: Orientation: alert, oriented to person, oriented to place and cooperative Results & Data Vital Signs (Past 12 Hours) Vital Signs Temp Pulse Resp BP Pulse Ox O2 Del Method 01/03/24 06:00 36.4 C L 71 15 97 01/03/24 06:00 139/69 01/03/24 05:00 119/58 L 01/03/24 05:00 36.5 C 77 17 94 01/03/24 04:19 131/84 01/03/24 04:19 36.7 C 76 14 89 L 01/03/24 04:00 36.9 C 69 10 L 01/03/24 03:00 104/51 L 01/03/24 03:00 36.7 C 77 18 92 01/03/24 02:30 36.8 C 78 8 L 94 01/03/24 02:30 147/77 H 01/03/24 02:00 117/70 01/03/24 02:00 36.9 C 75 14 91 01/03/24 01:30 143/77 H 01/03/24 01:30 36.9 C 77 14 94 01/03/24 01:00 37.0 C 80 12 95 01/03/24 01:00 98/60 L 01/03/24 00:00 96 H 01/03/24 00:00 37.0 C 83 11 L 94 01/03/24 00:00 136/81 01/02/24 23:00 37.0 C 88 18 131/72 92 01/02/24 22:30 118/70 01/02/24 22:03 120/74 01/02/24 22:00 37.0 C 79 19 96 01/02/24 21:00 37.0 C 83 25 H 98 01/02/24 21:00 144/75 H 01/02/24 20:10 37.0 C 87 16 95 01/02/24 20:10 137/64 01/02/24 20:00 37.0 C 79 16 137/64 93 01/02/24 19:31 37.1 C 84 16 93 01/02/24 19:31 118/61 01/02/24 19:30 Room Air 01/02/24 19:00 37.0 C 86 4 L 102/60 93 Laboratory Results 01/03/24 04:29 01/03/24 04:29
[2024-01-03] MEDS: PRASugrel TAB 10 MG TAB PO SCH (09:20)
--- NOTE | 2024-01-03 09:35 | Critical Care Progress Note ---
Date of Service January 03, 2024 Assessment & Plan (1) Septic shock: (2) Metabolic acidosis: (3) Hydronephrosis concurrent with and due to calculi of kidney and ureter: (4) HIV (human immunodeficiency virus infection): (5) CAD (coronary artery disease): Plan: 68-year-old male with history of HIV, CAD, CKD stage III and depression who presented to the hospital with septic shock secondary to pyelonephritis. Neurologic: -- Metabolic encephalopathy Likely uremic Improving Pulmonary: Oxygen requirements minimal at this time. Patient with history of CAD. Cardiovascular: -- CAD Repeat echo 01/01/2024 was a limited study, but normal LV function noted with 65 to 70%. c/w aspirin and prasugrel for history of CAD. Gastrointestinal: Monitor LFTs Renal: -- Acute renal failure Multifactorial Dehydrationas well as Hydronephrosis Getting HD via right femoral catheter Infectious disease: -- Blood culture and urine culture negative to date Currently on empiric Zosyn -- History of HIV On dolutegravir-Rilpivirine at home HIV antibody negative on this admission Hematologic: -- New onset thrombocytopenia Continue to monitor Endocrine: TSH mildly elevated on admission.Continue levothyroxine. --Prophylaxis VTE: IPC GI: Pantoprazole Lines: Right femoral Shiley, positive for Diet: Renal Plan: In/out: +2.3 L, urine output 2506, +10 L since coming to the hospital Patient has been off vasopressors for more than 12 hours. Patient is mildly thrombocytopenic today. Continue to monitor. Is supposed to get dialysis today. Hemodynamically stable to be downgraded postdialysis. Okay to downgrade to medical floor Please note the above document was generated using voice recognition software. It may contain grammatical, syntax or spelling errors.Any formal questions or concerns about the content, text or information contained within the body of this dictation should be directly addressed to the provider for clarification. Admission and Anticipated Discharge Date Admission Date: December 31, 2023 Subjective Patient seen and examined at bedside. No acute distress, no adverse events overnight His MAP was 106 at the time of examination. He denied any chest pain, no shortness of breath Saturating well on room air Denied any headache, no nausea, no vomiting Did finish his breakfast without any issues. Review of Systems 2 Review of Systems: All systems reviewed & are unremarkable except as noted in Subjective Physical Exam 2 Physical Exam: Constitutional: No acute distress HEENT: EOMI, PERRLA Respiratory system: Decreased air entry bilaterally, no wheeze, no rhonchi, mild crackles bilateral lower CVS: S1-S2 positive, no murmurs or gallops Abdomen: Soft, nontender, nondistended, positive bowel sounds x4 Extremities: +2 pulses bilaterally radialis/ dorsalis pedis, no cyanosis, no edema Neuro: Awake alert oriented to self currently Psych: Normal mood and affect G/U: Positive Rodriguez Skin: no rashes, warm and dry Lymphatic: no cervical or axillary lymphadenopathy Results & Data Results & Data Vital Signs (Past 12 Hours) Vital Signs Temp Pulse Resp BP Pulse Ox 01/03/24 09:00 36.6 C 83 11 L 96 01/03/24 09:00 139/86 01/03/24 08:16 36.6 C 83 20 96 01/03/24 08:16 147/77 H 01/03/24 08:00 36.6 C 74 15 95 01/03/24 08:00 115/72 01/03/24 07:56 123/69 01/03/24 07:56 36.6 C 69 17 94 01/03/24 07:00 36.4 C L 76 94 01/03/24 06:00 36.4 C L 71 15 97 01/03/24 06:00 139/69 01/03/24 05:00 119/58 L 01/03/24 05:00 36.5 C 77 17 94 01/03/24 04:19 131/84 01/03/24 04:19 36.7 C 76 14 89 L 01/03/24 04:00 36.9 C 69 10 L 01/03/24 03:00 104/51 L 01/03/24 03:00 36.7 C 77 18 92 01/03/24 02:30 36.8 C 78 8 L 94 01/03/24 02:30 147/77 H 01/03/24 02:00 117/70 01/03/24 02:00 36.9 C 75 14 91 01/03/24 01:30 143/77 H 01/03/24 01:30 36.9 C 77 14 94 01/03/24 01:00 37.0 C 80 12 95 01/03/24 01:00 98/60 L 01/03/24 00:00 96 H 01/03/24 00:00 37.0 C 83 11 L 94 01/03/24 00:00 136/81 01/02/24 23:00 37.0 C 88 18 131/72 92 01/02/24 22:30 118/70 01/02/24 22:03 120/74 01/02/24 22:00 37.0 C 79 19 96 Laboratory Results 01/03/24 04:29 01/03/24 04:29 Coding Level of Care Code 70128 SUB INP/OBS CARE 3/50MIN Diagnoses Septic shock A41.9; R65.21 Metabolic acidosis E87.20 Hydronephrosis concurrent with and due to calculi of kidney and ureter N13.2 HIV (human immunodeficiency virus infection) B20 CAD (coronary artery disease) I25.10
--- NOTE | 2024-01-03 13:54 | Hospitalist Progress Note ---
Date of Service January 03, 2024 Assessment & Plan (1) YASIR (acute kidney injury): Plan Pt is a 68yoM with PMHx significant for chronic systolic heart failure (EF 45%, TTE 2022), CAD status post stent (2017), chronic LBBB, hypertension, hyperlipidemia, HIV on Rx, DM2 insulin requiring, CKD (baseline creatinine 2.7- 3.1), chronic anemia (baseline hemoglobin of 13), history colonic polyps/internal hemorrhoids, anal HGSIL as per records, urolithiasis, mood disorder, past tobacco abuse admitted with acute renal failure on CKD secondary to diarrheal illness and obstructive uropathy from recurrent kidney stones. Acute renal Failure on CKD Baseline creatinine 2.7-3.1 Pt presented with Cr of 11 Nephrology was consulted Had stent placement by Urology on admission, initially started on IV hydration by Nephrology with bicarb drip No improvement on 12/31 with worsening mental status and hypotension Temp femoral dialysis catheter placement by Medicare Biller on 12/31, s/p dialysis session that day Further dialysis sessions per nephrology, bicarb drip has since been discontinued and started on LR per recs of nephrology Creatinine currently downtrending Appreciate Nephrology recs Septic Shock- resolved Pt with tachycardia, leukocytosis, low BP on 12/31 UA suggestive of infection and likely infectious source Noted lesion on left foot, diarrheal illness (see below) Lactate wnl Blood Cx x2 sets NGTD Urine Cx NGTD On Zosyn, continue Currently on pressors on the ICU for BP support 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 Urine Cx NGTD Blood cx x2 NGTD On Zosyn per ICU, continue Appreciate Urology recs ID consulted for further recs in setting of HIV Diarrhea Enteritis Pt with copious diarrhea C diff negative Stool Cx negative CT abd/pelvis noting an enteritis PRN loperamide IV hydration ID consulted for further recs in setting of HIV Anion gap Metabolic acidosis Anion gap elevated at 18 VBG with noted pH 7.10, CO2 22 and HCO3 7 secondary to above Nephrology consulted as above Resolved Acute on chronic anemia secondary to LGIB patient nontoxic history colonic polyps/internal hemorrhoids Hgb between 11-13 Anemia labs (iron, b12, folate all normal) Home aspirin and prasugrel resumed in the ICU Follow H&H, transfuse PRBC if hemoglobin less than 8 and or for symptomatic anemia Continue to monitor Pancytopenia Pt with anemia as above, decreasing platelets to 118 and new leukopenia as well AM peripheral smear Likely changes in setting of sepsis Continue to monitor with AM labs Hyponatremia Sodium of 132 Continue to monitor Foot Injury, Left XRAY foot ordered Podiatry consulted, appreciate recs Intertrigo Pt with noted groin rash Desenex powder Hypothermia Hypothyroidism Pt with noted hypothermia overnight Bearhugger TSH 7.558, free T4 0.51 Started on levothyroxine 25mcg PCP followup chronic systolic heart failure patient on the dry side Echo could not be completed appropriately as pt in pain Read as characteristic for septic picture Monitor volume status hx CAD status post stent chronic LBBB Stable hyperlipidemia on statin Rx, continue HIV on Rx stable disease as per C ID note from last month DMII insulin requiring suboptimal control as of hemoglobin A1c of 8.8 Basal/bolus insulin regimen while hospitalized mood disorder stable Diet: clear liquid diet, advance as tolerated DVT prophylaxis. SCDs Re: GI bleed Dispo: PT/OT ordered Admission and Anticipated Discharge Date Admission Date: December 31, 2023 Subjective Pt AAO, asking about plan for his care. receiving dialysis, BP stable Review of Systems Review of Systems: All systems reviewed & are unremarkable except as noted in Subjective Physical Exam Physical Exam: General: Alert Psych: Appropriate mood and affect HEENT: NC/AT CV: RRR Resp: Breath sounds clear bilaterally, no increased effort of breathing. Abdomen: Soft, nontender Extremities: No edema in lower extremities bilaterally. Results & Data Results & Data Vital Signs (Past 12 Hours) Vital Signs Temp Pulse Pulse Resp BP BP Pulse Ox 01/03/24 12:05 36.6 C 78 138/84 01/03/24 12:00 80 126/76 01/03/24 11:30 66 133/77 01/03/24 11:00 68 114/93 01/03/24 10:30 77 129/78 01/03/24 09:25 71 139/82 01/03/24 09:25 36.7 C 73 01/03/24 09:00 36.6 C 83 11 L 96 01/03/24 09:00 139/86 01/03/24 08:16 36.6 C 83 20 96 01/03/24 08:16 147/77 H 01/03/24 08:00 36.6 C 74 15 95 01/03/24 08:00 115/72 01/03/24 07:56 123/69 01/03/24 07:56 36.6 C 69 17 94 01/03/24 07:50 01/03/24 07:00 36.4 C L 76 94 01/03/24 06:49 74 01/03/24 06:00 36.4 C L 71 15 97 01/03/24 06:00 139/69 01/03/24 05:00 119/58 L 01/03/24 05:00 36.5 C 77 17 94 01/03/24 04:19 131/84 01/03/24 04:19 36.7 C 76 14 89 L 01/03/24 04:00 36.9 C 69 10 L 01/03/24 03:00 104/51 L 01/03/24 03:00 36.7 C 77 18 92 01/03/24 02:30 36.8 C 78 8 L 94 01/03/24 02:30 147/77 H 01/03/24 02:00 117/70 01/03/24 02:00 36.9 C 75 14 91 O2 Del Method 01/03/24 12:05 01/03/24 12:00 01/03/24 11:30 01/03/24 11:00 01/03/24 10:30 01/03/24 09:25 01/03/24 09:25 01/03/24 09:00 01/03/24 09:00 01/03/24 08:16 01/03/24 08:16 01/03/24 08:00 01/03/24 08:00 01/03/24 07:56 01/03/24 07:56 01/03/24 07:50 Room Air 01/03/24 07:00 01/03/24 06:49 01/03/24 06:00 01/03/24 06:00 01/03/24 05:00 01/03/24 05:00 01/03/24 04:19 01/03/24 04:19 01/03/24 04:00 01/03/24 03:00 01/03/24 03:00 01/03/24 02:30 01/03/24 02:30 01/03/24 02:00 01/03/24 02:00
[2024-01-03 15:16] LABS: Basophils # (auto) 0.01 K/uL (0.00-0.20); Basophils % (auto) 0.2 %; Eosinophils # (auto) 0.21 K/uL (0.00-0.50); Eosinophils % (auto) 4.8 %; Hematocrit (blood only) 27.3 % (42.0-52.0); Hemoglobin 9.2 g/dl (14.0-18.0); Immature Granulocytes # (auto) 0.03 K/uL (0.01-0.20); Immature Granulocytes % (auto) 0.7 %; Lymphocytes # (auto) 0.96 K/uL (1.20-3.40); Lymphocytes % (auto) 21.8 %; Mean Corpuscular Hemoglobin 27.3 pg (25.0-34.0); Mean Corpuscular Hgb Conc 33.7 g/dL (32.0-36.0); Mean Platelet Volume 8.8 fL (9.4-12.4); Monocytes # (auto) 0.72 K/uL (0.11-0.59); Monocytes % (auto) 16.3 %; Neutrophils # (auto) 2.48 K/uL (1.40-6.50); Neutrophils % (auto) 56.2 %; Platelet Count 118 K/uL (130-400); RDW Coefficient of Variation 16.6 % (11.5-14.5); RDW Standard Deviation 49.2 fL (36.4-46.3); Red Blood Count 3.37 M/uL (4.70-6.10); White Blood Count 4.41 K/ul (4.8-10.8)
--- NOTE | 2024-01-03 21:54 | Podiatry Consultation ---
Date of Consultation January 03, 2024 Assessment & Plan (1) Subungual hematoma of fourth toe of left foot: Encounter type: initial encounter Qualified Code(s): S90.222A - Contusion of left lesser toe(s) with damage to nail, initial encounter (2) Peripheral neuropathy: Peripheral neuropathy type: polyneuropathy associated with underlying disease Qualified Code(s): G63 - Polyneuropathy in diseases classified elsewhere Plan Patient examined and evaluated. Radiographs reviewed. Discussed etiology and treatment for this subungual hematoma. This toenail and underlying hematoma are stable, with no current indication to remove the toenail on this hospitalization. The nail is intact distally with blood underlying the proximal nail plate. If this nail loosens or if evidence of infection develop, the nail can be removed at any point in the future. This would be a simple nail avulsion performed in the office. Otherwise, the nail will continue to grow out, though may remain thickened and dystrophic permanently. Discussed these intermediate options with him and he will f/u as necessary after this hospitalization. Will sign off for now, but reconsult as necessary if the toe is worsening. History of Present Illness Reason for Consultation: Left toe injury Attending Physician: Laura Menjivar MD History of Present Illness Patient seen at bedside. States that he has been in ICU here for a few days because of kidney concerns. He has been doing well over the weekend and now is ready to transfer to lower level of care. He states that his kidney disease was leading to some extensive cognitive impairment and has minimal idea what happened to his left third toe. He believes he stubbed it while in the bathroom, causing some significant bleeding. Because it was in the bathroom, he thought his bleeding was from his urinary tract or his colon and didn't pay much attention to the foot. He also has neuropathy, so the toe hasn't hurt. His hospitalist noticed the toe looked off and was concerned about it, so she reached out to us for exam. He has had radiographs obtained here at the hospital. Now, his thought process has returned to normal, as well, and denies any other foot concerns. Allergies Allergy/AdvReac Type Severity Reaction Status Date / Time No Known Allergies Allergy Unverified 12/30/23 23:49 Home Medications Medication Instructions Recorded Confirmed Type atorvastatin 40 mg tablet 40 mg PO QAM 01/06/22 12/30/23 History dolutegravir 50 mg-rilpivirine 25 1 tab PO QAM 01/06/22 12/30/23 History mg tablet (Juluca) fluoxetine 20 mg capsule 20 mg PO QAM 01/06/22 12/30/23 History insulin aspart U-100 100 unit/mL 10 unit subcut TIDM 01/06/22 12/30/23 History (3 mL) subcutaneous pen (Novolog FlexPen U-100 Insulin aspart) multivitamin 1 tab PO QAM 01/06/22 12/30/23 History omega 4-sum-fra-fish oil 1,000 mg 1 cap PO QAM 01/06/22 12/30/23 History (120 mg-180 mg) capsule (Fish Oil) prasugrel 10 mg tablet 10 mg PO QAM 01/06/22 12/30/23 History calcitriol 0.5 mcg capsule 0.5 mcg PO QAM 10/31/22 12/30/23 History insulin glargine 100 unit/mL (3 22 unit subcut QAM 02/10/23 12/30/23 History mL) subcutaneous pen (Basaglar KwikPen U-100 Insulin) aspirin 81 mg tablet,delayed 81 mg PO DAILY 12/30/23 12/30/23 History release cholecalciferol (vitamin D3) 25 25 mcg PO QAM 12/30/23 12/30/23 History mcg (1,000 unit) capsule (Vitamin D3) coenzyme Q10 10 mg capsule (Co 10 mg PO DAILY 12/30/23 12/30/23 History Q-10) metoprolol succinate 25 mg 25 mg PO QAM 12/30/23 12/30/23 History tablet,extended release 24 hr Patient History Medical History Septic shock History of kidney stones Osteoarthritis Chronic lower back pain History of pancreatitis DM type 2 (diabetes mellitus, type 2) History of skin cancer [place]ING[place] (hard of hearing) HLD (hyperlipidemia) History of myocardial infarction 2016 & 2019 Sleep apnea no device Diverticulosis GERD (gastroesophageal reflux disease) IBS (irritable bowel syndrome) Precancerous lesion rectal CAD (coronary artery disease) Per patient, stenting x 5 in 2016 and restenting of 1 vessel performed in July 2020 Depression CKD (chronic kidney disease), stage IV follows with [facility] Nephrology HIV (human immunodeficiency virus infection) Surgical History S/P ureteral stent placement History of removal of ureteral stent History of cystoscopy History of colonoscopy History of cholecystectomy History of cardiac catheterization 2016 - stents 2020 -- restenting x 1. [facility] No pertinent past surgical history Family History Mother Heart disease Social History Smoking Status: Former smoker Tobacco Type: Cigarettes Second Hand Exposure: No; Do You Dip or Chew Tobacco: No; Hx Alcohol Use: Yes Alcohol type: beer, wine and hard liquor Alcohol Intake Frequency: Monthly or Less Hx Substance Use: No Preferred Language: Upper Sorbian Communication Ability: Effective Pharmacy Technician Program Director Required: No Beliefs That Will Affect Care: None Current Living Situation: Alone Feels Safe at Home: Yes Assistive Devices: None Review of Systems Review of Systems: All systems reviewed & are unremarkable except as noted in HPI & below Constitutional: no fever, no chills and no problem reported Eyes: no problem reported Ear, Nose, Mouth, Throat: no problem reported Respiratory: no problem reported Cardiovascular: no problem reported Gastrointestinal: no problem reported Genitourinary: no problem reported Musculoskeletal: no problem reported Integumentary: + nail changes; no skin ulcer and no kwasi thema Neurologic: + generalized weakness and + numbness Psychiatric: no problem reported Physical Exam Physical Exam: Left lower extremity focused exam: DP/PT pulses palpable. CFT brisk toe toes. Hair growth decreased. Distal cooling noted. Left fourth toenail traumatically avulsed proximally. Subungual hematoma noted with distal aspect of nail intact. No active bleeding. No evidence of infection. No fracture noted on plain film imaging. No abnormality to the toe, positionally. Muscle strength equally and full b/l. Protective sensation absent. Constitutional: WD/WN, vitals as above no acute distress Eyes: PERRL, conjunctivae normal, anicteric sclerae ENMT: external ear and nose normal, oropharynx normal Neck: normal visual inspection Respiratory: normal respiratory effort; no respiratory distress Cardiovascular: RRR, no murmur, no edema Chest (Breasts): Chest: normal inspection of chest Gastrointestinal (Abdomen): normal bowel sounds, soft, nontender, no hepatosplenomegaly Musculoskeletal: no cyanosis or clubbing, extremities motor strength 5/5 Ankle: no skin erythema Skin: + nail abnormality, + nails discolored a nd + nails dystrophic; no ulcers, no wound, no erythema and no fluctulance Neurologic: plantar reflexes intact bilaterally and moves all extremities; + abnormal sensation to monofilament Psychiatric: A+Ox3, euthymic affect Results & Data Vital Signs (Past 12 Hours) Vital Signs Temp Pulse Pulse Resp BP BP Pulse Ox 01/03/24 20:00 01/03/24 15:01 106/70 01/03/24 15:01 36.9 C 67 18 96 01/03/24 15:00 36.9 C 72 13 01/03/24 14:32 64 01/03/24 14:00 36.8 C 68 13 01/03/24 14:00 129/74 01/03/24 13:00 125/68 01/03/24 13:00 36.7 C 69 20 96 01/03/24 12:13 138/84 01/03/24 12:13 36.5 C 74 17 98 01/03/24 12:05 36.6 C 78 138/84 01/03/24 12:00 36.5 C 74 20 98 01/03/24 12:00 126/76 01/03/24 12:00 80 126/76 01/03/24 11:30 66 133/77 01/03/24 11:00 68 114/93 01/03/24 10:30 77 129/78 O2 Del Method 01/03/24 20:00 Room Air 01/03/24 15:01 01/03/24 15:01 Room Air 01/03/24 15:00 01/03/24 14:32 01/03/24 14:00 01/03/24 14:00 01/03/24 13:00 01/03/24 13:00 01/03/24 12:13 01/03/24 12:13 01/03/24 12:05 01/03/24 12:00 01/03/24 12:00 01/03/24 12:00 01/03/24 11:30 01/03/24 11:00 01/03/24 10:30
[2024-01-04 04:53] LABS: Basophils # (auto) 0.01 K/uL (0.00-0.20); Basophils % (auto) 0.2 %; Eosinophils # (auto) 0.22 K/uL (0.00-0.50); Eosinophils % (auto) 4.6 %; Hematocrit (blood only) 25.8 % (42.0-52.0); Hemoglobin 8.7 g/dl (14.0-18.0); Immature Granulocytes # (auto) 0.02 K/uL (0.01-0.20); Immature Granulocytes % (auto) 0.4 %; Lymphocytes # (auto) 0.96 K/uL (1.20-3.40); Lymphocytes % (auto) 20.1 %; Mean Corpuscular Hemoglobin 27.2 pg (25.0-34.0); Mean Corpuscular Hgb Conc 33.7 g/dL (32.0-36.0); Mean Corpuscular Volume 80.6 fL (80.0-100.0); Mean Platelet Volume 8.6 fL (9.4-12.4); Monocytes # (auto) 0.82 K/uL (0.11-0.59); Monocytes % (auto) 17.2 %; Neutrophils # (auto) 2.74 K/uL (1.40-6.50); Neutrophils % (auto) 57.5 %; Platelet Count 111 K/uL (130-400); RDW Standard Deviation 47.4 fL (36.4-46.3); White Blood Count 4.77 K/ul (4.8-10.8)
[2024-01-04 05:19] LABS: Albumin Globulin Ratio 1.4 (0.9-2); Albumin Level 2.6 gm/dl (3.4-5.0); BUN Creatinine Ratio 6.9 (10-20); Bilirubin,Total 0.4 mg/dl (0.2-1.0); Calcium 8.3 mg/dl (8.6-10.3); Creatinine Clr Calc Pharmacy 16.1 ml/min; Est GFR (African American) 13.7 ml/min; Est GFR (Non-African American) 11.8 ml/min; Globulin 1.9 gm/dl (2.5-4.0); Phosphorus 2.9 mg/dl (2.5-4.9); Potassium 3.4 mmol/L (3.5-5.1); Total Protein 4.5 gm/dl (6.0-8.3)
--- NOTE | 2024-01-04 09:56 | Nephrology Progress Note ---
Date of Service January 04, 2024 Assessment & Plan (1) YASIR (acute kidney injury): Plan: patient baseline creatinine is about 2.7-3.2 and has had CKD 4 for many years. etiology of current YASIR is severe volume depletion from diarrhea for the last 3 weeks but can not rule out significant obstructive uropathy component. s/p R ureteric stent. but we will still continue with aggressive fluid and electrolyte resuscitation. admission creatinine is 11. This is associated with very low serum bicarb of 7 but despite that potassium still on the low end of normal. such picture can happen with severe diarrhea with significant GI loss of bicarb and potassium. he had HD 12/31 and 01/01, 01/02 given that patient already had advanced CKD with a baseline creatinine of around 3 there is no guarantee that the kidney function will actually improve to where he can function w/o renal replacement therapy. severe prolonged volume depletion with diarrhea can cause ATN. -cont LR but will lower rate to 40 mL hourly -strict I/O -no [employer] M[employer] today and reeval for need daily -daily bmp -remains unclear if he will need LT dialysis; in any event PD not an option w/ active and chronic diarrhea >plan to pull temp line in AM after HD if HD needed; then follow for need for other HD access >> TDC versus another temp care coordinated w/ Dr Menjivar regarding IVF and HD plans, catheter plans (2) CKD (chronic kidney disease) stage 4, GFR 15-29 ml/min: Plan: baseline CKD 4 with a creatinine anywhere from 2.7-3.2. In fact even when he was in [place] he was closely followed at [facility]. he had ESRD options class and in the past has indicated he will do peritoneal dialysis if such need arises. he also claims he is on transplant list at [facility]. (3) Hydronephrosis concurrent with and due to calculi of kidney and ureter: Plan: s/p R ureteral stent 12/29 Admission and Anticipated Discharge Date Admission Date: December 31, 2023 Subjective ongoing frequent bm > and concerns can't keep groin line clean. feels his sob better but still OOB w/ sitting up for exam. no chest pain. some vertigo like sx w/ rolling Review of Systems 2 Review of Systems: All systems reviewed & are unremarkable except as noted in Subjective Physical Exam 2 Constitutional: well developed, well nourished and cooperative; no acute distress Eyes: EOM intact bilaterally ENMT: Ears: no external ear abnormality Nose: no external nose abnormality Mouth: + dry oral mucous membranes Neck: no nuchal rigidity Respiratory: normal respiratory effort Auscultation: + diminished lung sounds (kerry L base but less today) and + crackles (thick R base and some L caudal to diminished sounds again less than 01/02) Cardiovascular: Rate/Rhythm: regular rate and regular rhythm Extremities: n o edema Gastrointestinal (Abdomen): Inspection/Auscultation: normal bowel sounds P ercussion/Palpation: abdomen soft and + ascites; abdomen nontender Musculoskeletal: Extremities: strength 5/5 throughout Skin: no rashes, warm and dry Psychiatric: Orientation: alert, oriented to person, oriented to place and cooperative Results & Data Vital Signs (Past 12 Hours) Vital Signs Temp Pulse Resp BP Pulse Ox O2 Del Method 01/04/24 09:26 Room Air 01/04/24 08:00 135/68 01/04/24 08:00 36.8 C 72 19 97 01/04/24 07:00 179/94 H 01/04/24 07:00 36.7 C 77 17 97 01/04/24 06:00 36.7 C 72 15 94 01/04/24 06:00 141/80 H 01/04/24 05:01 148/74 H 01/04/24 05:01 36.7 C 61 8 L 99 01/04/24 05:00 36.7 C 61 15 90 01/04/24 04:00 36.7 C 63 9 L 94 01/04/24 04:00 124/59 L 01/04/24 03:00 146/79 H 01/04/24 03:00 36.8 C 64 24 97 01/04/24 02:00 36.9 C 66 21 93 01/04/24 02:00 133/73 01/04/24 01:00 37.0 C 62 15 93 01/04/24 01:00 133/71 01/04/24 00:00 37.1 C 61 9 L 87 L 01/04/24 00:00 140/72 01/03/24 23:00 37.2 C 67 16 92 01/03/24 23:00 129/72 01/03/24 22:00 37.3 C 89 19 Laboratory Results 01/04/24 04:24 01/04/24 04:24
--- NOTE | 2024-01-04 11:15 | Hospitalist Progress Note ---
Date of Service January 04, 2024 Assessment & Plan (1) YASIR (acute kidney injury): Plan Pt is a 68yoM with PMHx significant for chronic systolic heart failure (EF 45%, TTE 2022), CAD status post stent (2017), chronic LBBB, hypertension, hyperlipidemia, HIV on Rx, DM2 insulin requiring, CKD (baseline creatinine 2.7- 3.1), chronic anemia (baseline hemoglobin of 13), history colonic polyps/internal hemorrhoids, anal HGSIL as per records, urolithiasis, mood disorder, past tobacco abuse admitted with acute renal failure on CKD secondary to diarrheal illness and obstructive uropathy from recurrent kidney stones. Acute renal Failure on CKD Baseline creatinine 2.7-3.1 Pt presented with Cr of 11 Nephrology was consulted Had stent placement by Urology on admission, initially started on IV hydration by Nephrology with bicarb drip No improvement on 12/31 with worsening mental status and hypotension Temp femoral dialysis catheter placement by [employer] [facility] on 12/31, s/p dialysis session that day Further dialysis sessions per nephrology, bicarb drip has since been discontinued and started on LR per recs of nephrology Creatinine currently downtrending Appreciate Nephrology recs Septic Shock- resolved Pt with tachycardia, leukocytosis, low BP on 12/31 UA suggestive of infection and likely infectious source Noted lesion on left foot, diarrheal illness (see below) Lactate wnl Blood Cx x2 sets NGTD Urine Cx NGTD On Zosyn, continue Was on pressors in the ICU for BP support Resolved and downgraded Hydronephrosis, right Nephrolithiasis Complicated UTI CT abd /pelvis concerning for mild R hydronephrosis and possible nonobstructive nephrolithiasis Urology was consulted -Due to acute renal failure and given the hydronephrosis, Urology recommended ureteral stent placement -s/p ureteral stent placement on 12/30 Initial urine sample not suggestive of infection UA repeated on 12/31, suggestive of infection. Urine Cx NGTD Blood cx x2 NGTD On Zosyn per ICU, continue Appreciate Urology recs ID consulted for further recs in setting of HIV Diarrhea Enteritis Pt with copious diarrhea C diff negative Stool Cx negative CT abd/pelvis noting an enteritis PRN loperamide IV hydration ID consulted for further recs in setting of HIV Anion gap Metabolic acidosis Anion gap elevated at 18 VBG with noted pH 7.10, CO2 22 and HCO3 7 secondary to above Nephrology consulted as above Resolved Acute on chronic anemia secondary to LGIB patient nontoxic history colonic polyps/internal hemorrhoids Hgb between 11-13 Anemia labs (iron, b12, folate all normal) Home aspirin and prasugrel resumed in the ICU Follow H&H, transfuse PRBC if hemoglobin less than 8 and or for symptomatic anemia Continue to monitor Pancytopenia Pt with anemia as above, decreasing platelets to 111 and new leukopenia as well Peripheral smear -combination of recent sepsis, kidney injury and anemia of chronic disease -no evidence of hematolymphoid neoplasia Continue to monitor with AM labs Consider Hematology consult Hyponatremia Sodium of 132 on admission Currently wnl Foot Injury, Left XRAY foot ordered -no acute abn Podiatry consulted, appreciate recs noted "subungual hematoma. This toenail and underlying hematoma are stable, with no current indication to remove the toenail on this hospitalization. The nail is intact distally with blood underlying the proximal nail plate. If this nail loosens or if evidence of infection develop, the nail can be removed at any point in the future. This would be a simple nail avulsion performed in the office. Otherwise, the nail will continue to grow out, though may remain thickened and dystrophic permanently." Intertrigo Pt with noted groin rash Desenex powder Hypothermia-Resolved Hypothyroidism Pt with noted hypothermia overnight Bearhugger TSH 7.558, free T4 0.51 Started on levothyroxine 25mcg PCP followup chronic systolic heart failure patient on the dry side Echo could not be completed appropriately as pt in pain Read as characteristic for septic picture Monitor volume status hx CAD status post stent chronic LBBB Stable hyperlipidemia on statin Rx, continue HIV on Rx stable disease as per [facility] ID note from last month DMII insulin requiring suboptimal control as of hemoglobin A1c of 8.8 Basal/bolus insulin regimen while hospitalized mood disorder stable Diet: clear liquid diet, advance as tolerated DVT prophylaxis. SCDs Re: GI bleed Dispo: PT/OT ordered Admission and Anticipated Discharge Date Admission Date: December 31, 2023 Subjective Pt was seen while down in the ICU. AAOx3. Per nursing, multiple episodes of BMs, sometimes smeared, has form. Review of Systems Review of Systems: All systems reviewed & are unremarkable except as noted in Subjective Physical Exam Physical Exam: General: Alert Psych: Appropriate mood and affect HEENT: NC/AT CV: RRR Resp: Breath sounds clear bilaterally, no increased effort of breathing. Abdomen: Soft, nontender Extremities: No edema in lower extremities bilaterally. Results & Data Results & Data Vital Signs (Past 12 Hours) Vital Signs Temp Pulse Resp BP Pulse Ox O2 Del Method 01/04/24 09:26 Room Air 01/04/24 08:00 135/68 01/04/24 08:00 36.8 C 72 19 97 01/04/24 07:00 179/94 H 01/04/24 07:00 36.7 C 77 17 97 01/04/24 06:00 36.7 C 72 15 94 01/04/24 06:00 141/80 H 01/04/24 05:01 148/74 H 01/04/24 05:01 36.7 C 61 8 L 99 01/04/24 05:00 36.7 C 61 15 90 01/04/24 04:00 36.7 C 63 9 L 94 01/04/24 04:00 124/59 L 01/04/24 03:00 146/79 H 01/04/24 03:00 36.8 C 64 24 97 01/04/24 02:00 36.9 C 66 21 93 01/04/24 02:00 133/73 01/04/24 01:00 37.0 C 62 15 93 01/04/24 01:00 133/71 01/04/24 00:00 37.1 C 61 9 L 87 L 01/04/24 00:00 140/72
--- NOTE | 2024-01-04 14:55 | Infectious Disease Consult ---
<Statement entered by Daniel Sprague, DO - 01/04/24 16:43> ATTESTATION: I saw and evaluated the patient today. I have reviewed the trainee note and ag ree. My additional thoughts/findingsor any changes to the planare listed below. The patient reports having diarrhea for greater than one year. He reported seeing blood while on the toilet one time but attributed the blood to a toe that was bleeding (?). He does not drink well water. So far, stool studies have been unremarkable. Please repeat the studies in order to increase the yield. Could there be a sexually transmitted cause (eg proctocolitis?). Recommend to consult GI. OK to continue Zosyn for now (nonspecific colitis?) but would discontinue it if another etiology is found (or after 5-7 days of empiric treatment, assuming that cultures are negative and the patient is clinically improved). If GI thinks that proctitis/procotcolitis is possible, contact ID so that we can consider empiric/directed treatment at that time. Use the on-call schedule to find out which ID provider is covering your facility. Date of Service January 04, 2024 Telehealth Information I performed this visit using a real-time telehealth connection between my location and the patients location ([facility]). After connecting through interactive tele-video, patient was identified by name and date of and/or wristband check.Patient (or authorized healthcare senior human resources representative) was informed that this was a telemedicine visit and it was being conducted confidentially over secure lines. My office door was closed and no one else was present in the room with me.Patient (or authorized healthcare senior human resources representative) provided consent to proceed with the visit, expressed an understanding of privacy and security of the telemedicine visit, and gave permission to have a hospital senior human resources representative in the room in order to assist with the visit and to conduct portions of the visit, as needed. I informed the patient (or authorized healthcare senior human resources representative) that I reviewed their record and presented the opportunity for them to ask any questions regarding the visit today. The patient agreed to participate. Assessment & Plan (1) YASIR (acute kidney injury): (2) HIV (human immunodeficiency virus infection): (3) Diarrhea: Plan Patient presenting with abdominal pain and diarrhea found to have renal failure with a creat of 11. Renal failure was likely 2/2 dehydration vs obstruction. He has since been stented. There are no recent HIV labs. He is on Jaluca which has low barrier to resistance. It's important that he misses no doses. He states he will get his medication from home. It is difficult to provide a differential without a CD4 count because, if it is normal he is not at particular risk for OI. He was sexually active a year ago and hasn't had rectal STD screening. He denies any urinary complaints. -Check HIV viral load and CD4 count -Continue Jaluca -Check rectal gonorrhea and chlamydia swabs -Diarrhea has been going on for over a year per patient, recommend GI consultation for evaluation for colonoscopy/biopsy -Continue zosyn for now for possible UTI History of Present Illness History of Present Illness Pt w/ pmhx DM2, HIV on ART, urolithiasis, colonic polyps/internal hemorrhoids presented w/ 2 weeks of abdominal pain and diarrhea. Diarrhea was initially watery but is now bloody. In ED creat was found to be 11 from a baseline of 2.7-3.2. Nephrology is following and feels that it was 2/2 severe diarrhea vs obstructive uropathy of right kidney. He has undergone stent placement. Stool PCR panel was negative. Blood and urine cultures have no growth. CT AP showed mukld fluid-filled small bowel with mild wall thickening. In regards to HIV he was seen 11/[address] Asencio. He take Juluca (dolutegravir/rilpivirine). He did not get labs drawn at that time although they are ordered as standing labs. His absolute lymphocyte count is low but I do not see any recent CD4 or viral load. He is currently on zosyn. Has 2 cats. Traveled to [facility] a year ago. States that he has not missed his ART except for a day or two. Homosexual vers male. Last sexual encounter about a year ago. Allergies Allergy/AdvReac Type Severity Reaction Status Date / Time No Known Allergies Allergy Unverified 12/30/23 23:49 Home Medications Medication Instructions Recorded Confirmed Type atorvastatin 40 mg tablet 40 mg PO QAM 01/06/22 12/30/23 History dolutegravir 50 mg-rilpivirine 25 1 tab PO QAM 01/06/22 12/30/23 History mg tablet (Juluca) fluoxetine 20 mg capsule 20 mg PO QAM 01/06/22 12/30/23 History insulin aspart U-100 100 unit/mL 10 unit subcut TIDM 01/06/22 12/30/23 History (3 mL) subcutaneous pen (Novolog FlexPen U-100 Insulin aspart) multivitamin 1 tab PO QAM 01/06/22 12/30/23 History omega 4-nft-sic-fish oil 1,000 mg 1 cap PO QAM 01/06/22 12/30/23 History (120 mg-180 mg) capsule (Fish Oil) prasugrel 10 mg tablet 10 mg PO QAM 01/06/22 12/30/23 History calcitriol 0.5 mcg capsule 0.5 mcg PO QAM 10/31/22 12/30/23 History insulin glargine 100 unit/mL (3 22 unit subcut QA 02/10/23 12/30/23 History mL) subcutaneous pen (Basaglar KwikPen U-100 Insulin) aspirin 81 mg tablet,delayed 81 mg PO DAILY 12/30/23 12/30/23 History release cholecalciferol (vitamin D3) 25 25 mcg PO QAM 12/30/23 12/30/23 History mcg (1,000 unit) capsule (Vitamin D3) coenzyme Q10 10 mg capsule (Co 10 mg PO DAILY 12/30/23 12/30/23 History Q-10) metoprolol succinate 25 mg 25 mg PO QAM 12/30/23 12/30/23 History tablet,extended release 24 hr Patient History Medical History Septic shock History of kidney stones Osteoarthritis Chronic lower back pain History of pancreatitis DM type 2 (diabetes mellitus, type 2) History of skin cancer [place] (hard of hearing) HLD (hyperlipidemia) History of myocardial infarction 2016 & 2019 Sleep apnea no device Diverticulosis GERD (gastroesophageal reflux disease) IBS (irritable bowel syndrome) Precancerous lesion rectal CAD (coronary artery disease) Per patient, stenting x 5 in 2016 and restenting of 1 vessel performed in July 2020 Depression CKD (chronic kidney disease), stage IV follows with [facility] Nephrology HIV (human immunodeficiency virus infection) Surgical History S/P ureteral stent placement History of removal of ureteral stent History of cystoscopy History of colonoscopy History of cholecystectomy History of cardiac catheterization 2017 - 5 stents 2020 -- restenting x 1. [facility] No pertinent past surgical history Family History Mother Heart disease Social History Smoking Status: Former smoker Tobacco Type: Cigarettes Second Hand Exposure: No; Do You Dip or Chew Tobacco: No; Hx Alcohol Use: Yes Alcohol type: beer, wine and hard liquor Alcohol Intake Frequency: Monthly or Less Hx Substance Use: No Preferred Language: Peruvian Communication Ability: Effective Underwriter Mortgage Loan Required: No Beliefs That Will Affect Care: None Current Living Situation: Alone Feels Safe at Home: Yes Assistive Devices: None Review of Systems Full ROS was performed and is negative unless mentioned in the HPI. Physical Exam Well appearing AAOx3 Results & Data Vital Signs (Past 12 Hours) Vital Signs Temp Pulse Resp BP Pulse Ox O2 Del Method 01/04/24 09:26 Room Air 01/04/24 08:00 135/68 01/04/24 08:00 36.8 C 72 19 97 01/04/24 07:00 179/94 H 01/04/24 07:00 36.7 C 77 17 97 01/04/24 06:00 36.7 C 72 15 94 01/04/24 06:00 141/80 H 01/04/24 05:01 148/74 H 01/04/24 05:01 36.7 C 61 8 L 99 01/04/24 05:00 36.7 C 61 15 90 01/04/24 04:00 36.7 C 63 9 L 94 01/04/24 04:00 124/59 L 01/04/24 03:00 146/79 H 01/04/24 03:00 36.8 C 64 24 97 01/04/24 02:00 36.9 C 66 21 93 01/04/24 02:00 133/73 Laboratory Results Laboratory Results - last 72 hr 01/01/24 01/01/24 01/01/24 14:00 15:55 17:56 WBC RBC Hgb Hct MCV MCH MCHC RDW Std Deviation RDW Coeff of Meera Plt Count MPV Immature Gran % (Auto) Neut % (Auto) Lymph % (Auto) O[place]Brien % (Auto) Eos % (Auto) Baso % (Auto) Neut # (Auto) Lymph # (Auto) O'Brien # (Auto) Eos # (Auto) Baso # (Auto) Immature Gran # (Auto) Peripher Smr Path Cons VBG pH VBG pCO2 VBG pO2 VBG HCO3 VBG O2 Saturation VBG Base Excess Sodium 139 Potassium 2.8 L Chloride 104 Carbon Dioxide 15 L Anion Gap 20 H BUN 74 H D Creatinine 7.15 H* D Est Cr Clr Drug Dosing 9.6 Est GFR ( Amer) 8.2 Est GFR (Non-Af Amer) 7.0 BUN/Creatinine Ratio 10.3 Glucose 134 H POC Glucose 122 H Calcium 8.1 L Phosphorus Magnesium Iron TIBC Unsaturated IBC Transferrin % Sat Ferritin Total Bilirubin AST ALT Alkaline Phosphatase Troponin I High Sens 20.4 H Total Protein Albumin Globulin Albumin/Globulin Ratio Vitamin B12 Folate Urine Color Red Urine Appearance Turbid A Urine pH 5.0 Ur Specific [place] 1.014 Urine Protein 3+ H Urine Glucose (UA) Trace H Urine Ketones Trace H Urine Blood 3+ H Urine Nitrite Negative Urine Bilirubin Negative Urine Urobilinogen Negative Ur Leukocyte Esterase 2+ H Urine WBC (Auto) >50 H Urine RBC (Auto) >20 H U Hyaline Cast (Auto) 0-2 U Epithel Cells (Auto) 0-2 Urine Bacteria (Auto) 2+ H Stl C. diff Tox B Gene 01/01/24 01/01/24 01/02/24 19:23 20:17 00:28 WBC RBC Hgb Hct MCV MCH MCHC RDW Std Deviation RDW Coeff of Meera Plt Count MPV Immature Gran % (Auto) Neut % (Auto) Lymph % (Auto) O[place]Brien % (Auto) Eos % (Auto) Baso % (Auto) Neut # (Auto) Lymph # (Auto) [place]Brien # (Auto) Eos # (Auto) Baso # (Auto) Immature Gran # (Auto) Peripher Smr Path Cons VBG pH 7.26 L VBG pCO2 35 L VBG pO2 47 VBG HCO3 16 VBG O2 Saturation 76.2 VBG Base Excess -10.4 Sodium 138 Potassium 2.6 L Chloride 104 Carbon Dioxide 16 L Anion Gap 18 H BUN 73 H Creatinine 7.04 H* Est Cr Clr Drug Dosing 9.8 Est GFR ( Amer) 8.3 Est GFR (Non-Af Amer) 7.2 BUN/Creatinine Ratio 10.4 Glucose 151 H POC Glucose Calcium 7.7 L Phosphorus Magnesium 1.7 Iron TIBC Unsaturated IBC Transferrin % Sat Ferritin Total Bilirubin AST ALT Alkaline Phosphatase Troponin I High Sens 29.4 H Total Protein Albumin Globulin Albumin/Globulin Ratio Vitamin B12 Folate Urine Color Urine Appearance Urine pH Ur Specific [place] Urine Protein Urine Glucose (UA) Urine Ketones Urine Blood Urine Nitrite Urine Bilirubin Urine Urobilinogen Ur Leukocyte Esterase Urine WBC (Auto) Urine RBC (Auto) U Hyaline Cast (Auto) U Epithel Cells (Auto) Urine Bacteria (Auto) Stl C. diff Tox B Gene 01/02/24 01/02/24 01/02/24 04:41 08:06 13:34 WBC 10.52 RBC 3.77 L Hgb 10.3 L Hct 29.9 L MCV 79.3 L MCH 27.3 MCHC 34.4 RDW Std Deviation 46.7 H RDW Coeff of Meera 16.3 H Plt Count 192 MPV 8.6 L Immature Gran % (Auto) 0.9 Neut % (Auto) 64.9 Lymph % (Auto) 13.4 O'Brien % (Auto) 18.5 Eos % (Auto) 2.0 Baso % (Auto) 0.3 Neut # (Auto) 6.83 H Lymph # (Auto) 1.41 O'Brien # (Auto) 1.95 H Eos # (Auto) 0.21 Baso # (Auto) 0.03 Immature Gran # (Auto) 0.09 Peripher Smr Path Cons VBG pH VBG pCO2 VBG pO2 VBG HCO3 VBG O2 Saturation VBG Base Excess Sodium 137 Potassium 2.8 L Chloride 103 Carbon Dioxide 19 L Anion Gap 15 H BUN 73 H Creatinine 7.36 H* D Est Cr Clr Drug Dosing 9.3 Est GFR ( Amer) 7.9 Est GFR (Non-Af Amer) 6.8 BUN/Creatinine Ratio 9.9 L Glucose 162 H POC Glucose 151 H 106 H Calcium 7.8 L Phosphorus 5.7 H Magnesium 1.7 Iron 133 TIBC TNP Unsaturated IBC < 55 L Transferrin % Sat TNP Ferritin 116.8 Total Bilirubin 0.4 AST 30 ALT 18 Alkaline Phosphatase 75 Troponin I High Sens Total Protein 5.2 L Albumin 3.0 L Globulin 2.2 L Albumin/Globulin Ratio 1.4 Vitamin B12 429 Folate 11.55 Urine Color Urine Appearance Urine pH Ur Specific [place] Urine Protein Urine Glucose (UA) Urine Ketones Urine Blood Urine Nitrite Urine Bilirubin Urine Urobilinogen Ur Leukocyte Esterase Urine WBC (Auto) Urine RBC (Auto) U Hyaline Cast (Auto) U Epithel Cells (Auto) Urine Bacteria (Auto) Stl C. diff Tox B Gene 01/02/24 01/02/24 01/02/24 15:02 15:55 20:51 WBC RBC Hgb Hct MCV MCH MCHC RDW Std Deviation RDW Coeff of Meera Plt Count MPV Immature Gran % (Auto) Neut % (Auto) Lymph % (Auto) O'Brien % (Auto) Eos % (Auto) Baso % (Auto) Neut # (Auto) Lymph # (Auto) O[place]Brien # (Auto) Eos # (Auto) Baso # (Auto) Immature Gran # (Auto) Peripher Smr Path Cons VBG pH VBG pCO2 VBG pO2 VBG HCO3 VBG O2 Saturation VBG Base Excess Sodium 137 Potassium 3.0 L Chloride 104 Carbon Dioxide 22 Anion Gap 11 BUN 43 H D Creatinine 4.66 H* D Est Cr Clr Drug Dosing 15.9 Est GFR ( Amer) 13.7 Est GFR (Non-Af Amer) 11.8 BUN/Creatinine Ratio 9.2 L Glucose 137 H POC Glucose 134 H 126 H Calcium 8.0 L Phosphorus Magnesium 1.9 Iron TIBC Unsaturated IBC Transferrin % Sat Ferritin Total Bilirubin AST ALT Alkaline Phosphatase Troponin I High Sens Total Protein Albumin Globulin Albumin/Globulin Ratio Vitamin B12 Folate Urine Color Urine Appearance Urine pH Ur Specific [place] Urine Protein Urine Glucose (UA) Urine Ketones Urine Blood Urine Nitrite Urine Bilirubin Urine Urobilinogen Ur Leukocyte Esterase Urine WBC (Auto) Urine RBC (Auto) U Hyaline Cast (Auto) U Epithel Cells (Auto) Urine Bacteria (Auto) Stl C. diff Tox B Gene 01/02/24 01/03/24 01/03/24 Unknown 04:29 07:23 WBC 5.40 RBC 3.38 L Hgb 9.2 L Hct 27.4 L MCV 81.1 MCH 27.2 MCHC 33.6 RDW Std Deviation 49.3 H RDW Coeff of Meera 16.7 H Plt Count 118 L MPV 8.5 L Immature Gran % (Auto) 0.6 Neut % (Auto) 59.4 Lymph % (Auto) 17.4 O'Brien % (Auto) 17.2 Eos % (Auto) 5.0 Baso % (Auto) 0.4 Neut # (Auto) 3.21 Lymph # (Auto) 0.94 L O'Brien # (Auto) 0.93 H Eos # (Auto) 0.27 Baso # (Auto) 0.02 Immature Gran # (Auto) 0.03 Peripher Smr Path Cons VBG pH VBG pCO2 VBG pO2 VBG HCO3 VBG O2 Saturation VBG Base Excess Sodium 137 Potassium 3.6 Chloride 105 Carbon Dioxide 22 Anion Gap 10 BUN 47 H Creatinine 5.48 H* D Est Cr Clr Drug Dosing 13.6 Est GFR ( Amer) 11.3 Est GFR (Non-Af Amer) 9.7 BUN/Creatinine Ratio 8.6 L Glucose 109 H POC Glucose 112 H Calcium 8.2 L Phosphorus 2.9 D Magnesium 2.1 Iron TIBC Unsaturated IBC Transferrin % Sat Ferritin Total Bilirubin 0.4 AST 59 H ALT 16 Alkaline Phosphatase 73 Troponin I High Sens Total Protein 4.8 L Albumin 2.8 L Globulin 2.0 L Albumin/Globulin Ratio 1.4 Vitamin B12 Folate Urine Color Urine Appearance Urine pH Ur Specific [place] Urine Protein Urine Glucose (UA) Urine Ketones Urine Blood Urine Nitrite Urine Bilirubin Urine Urobilinogen Ur Leukocyte Esterase Urine WBC (Auto) Urine RBC (Auto) U Hyaline Cast (Auto) U Epithel Cells (Auto) Urine Bacteria (Auto) Stl C. diff Tox B Gene Negative Cdiff Gene 01/03/24 01/03/24 01/03/24 11:30 14:58 16:26 WBC 4.41 L RBC 3.37 L Hgb 9.2 L Hct 27.3 L MCV 81.0 MCH 27.3 MCHC 33.7 RDW Std Deviation 49.2 H RDW Coeff of Meera 16.6 H Plt Count 118 L MPV 8.8 L Immature Gran % (Auto) 0.7 Neut % (Auto) 56.2 Lymph % (Auto) 21.8 O'Brien % (Auto) 16.3 Eos % (Auto) 4.8 Baso % (Auto) 0.2 Neut # (Auto) 2.48 Lymph # (Auto) 0.96 L O'Brien # (Auto) 0.72 H Eos # (Auto) 0.21 Baso # (Auto) 0.01 Immature Gran # (Auto) 0.03 Peripher Smr Path Cons VBG pH VBG pCO2 VBG pO2 VBG HCO3 VBG O2 Saturation VBG Base Excess Sodium Potassium Chloride Carbon Dioxide Anion Gap BUN Creatinine Est Cr Clr Drug Dosing Est GFR ( Amer) Est GFR (Non-Af Amer) BUN/Creatinine Ratio Glucose POC Glucose 118 H 119 H Calcium Phosphorus Magnesium Iron TIBC Unsaturated IBC Transferrin % Sat Ferritin Total Bilirubin AST ALT Alkaline Phosphatase Troponin I High Sens Total Protein Albumin Globulin Albumin/Globulin Ratio Vitamin B12 Folate Urine Color Urine Appearance Urine pH Ur Specific [place] Urine Protein Urine Glucose (UA) Urine Ketones Urine Blood Urine Nitrite Urine Bilirubin Urine Urobilinogen Ur Leukocyte Esterase Urine WBC (Auto) Urine RBC (Auto) U Hyaline Cast (Auto) U Epithel Cells (Auto) Urine Bacteria (Auto) Stl C. diff Tox B Gene 01/03/24 01/04/24 01/04/24 20:21 04:24 07:32 WBC 4.77 L RBC 3.20 L Hgb 8.7 L Hct 25.8 L MCV 80.6 MCH 27.2 MCHC 33.7 RDW Std Deviation 47.4 H RDW Coeff of Meera 16.0 H Plt Count 111 L MPV 8.6 L Immature Gran % (Auto) 0.4 Neut % (Auto) 57.5 Lymph % (Auto) 20.1 O'Brien % (Auto) 17.2 Eos % (Auto) 4.6 Baso % (Auto) 0.2 Neut # (Auto) 2.74 Lymph # (Auto) 0.96 L O'Brien # (Auto) 0.82 H Eos # (Auto) 0.22 Baso # (Auto) 0.01 Immature Gran # (Auto) 0.02 Peripher Smr Path Cons VBG pH VBG pCO2 VBG pO2 VBG HCO3 VBG O2 Saturation VBG Base Excess Sodium 138 Potassium 3.4 L Chloride 108 H Carbon Dioxide 23 Anion Gap 7 BUN 32 H Creatinine 4.65 H* D Est Cr Clr Drug Dosing 16.1 Est GFR ( Amer) 13.7 Est GFR (Non-Af Amer) 11.8 BUN/Creatinine Ratio 6.9 L Glucose 107 H POC Glucose 112 H 114 H Calcium 8.3 L Phosphorus 2.9 Magnesium 2.0 Iron TIBC Unsaturated IBC Transferrin % Sat Ferritin Total Bilirubin 0.4 AST 94 H ALT 27 Alkaline Phosphatase 75 Troponin I High Sens Total Protein 4.5 L Albumin 2.6 L Globulin 1.9 L Albumin/Globulin Ratio 1.4 Vitamin B12 Folate Urine Color Urine Appearance Urine pH Ur Specific [place] Urine Protein Urine Glucose (UA) Urine Ketones Urine Blood Urine Nitrite Urine Bilirubin Urine Urobilinogen Ur Leukocyte Esterase Urine WBC (Auto) Urine RBC (Auto) U Hyaline Cast (Auto) U Epithel Cells (Auto) Urine Bacteria (Auto) Stl C. diff Tox B Gene 01/04/24 11:17 WBC RBC Hgb Hct MCV MCH MCHC RDW Std Deviation RDW Coeff of Meera Plt Count MPV Immature Gran % (Auto) Neut % (Auto) Lymph % (Auto) [place] % (Auto) Eos % (Auto) Baso % (Auto) Neut # (Auto) Lymph # (Auto) [place] # (Auto) Eos # (Auto) Baso # (Auto) Immature Gran # (Auto) Peripher Smr Path Cons VBG pH VBG pCO2 VBG pO2 VBG HCO3 VBG O2 Saturation VBG Base Excess Sodium Potassium Chloride Carbon Dioxide Anion Gap BUN Creatinine Est Cr Clr Drug Dosing Est GFR ( Amer) Est GFR (Non-Af Amer) BUN/Creatinine Ratio Glucose POC Glucose 122 H Calcium Phosphorus Magnesium Iron TIBC Unsaturated IBC Transferrin % Sat Ferritin Total Bilirubin AST ALT Alkaline Phosphatase Troponin I High Sens Total Protein Albumin Globulin Albumin/Globulin Ratio Vitamin B12 Folate Urine Color Urine Appearance Urine pH Ur Specific [place] Urine Protein Urine Glucose (UA) Urine Ketones Urine Blood Urine Nitrite Urine Bilirubin Urine Urobilinogen Ur Leukocyte Esterase Urine WBC (Auto) Urine RBC (Auto) U Hyaline Cast (Auto) U Epithel Cells (Auto) Urine Bacteria (Auto) Stl C. diff Tox B Gene Diagnostic Findings Abdomen/Pelvis CT 12/30/23 22:55 Exam(s): CT ABDOMEN + PELVIS Without Contrast EXAM: CT Abdomen and Pelvis Without Intravenous Contrast CLINICAL HISTORY: Reason for exam: yasir. TECHNIQUE: Axial computed tomography images of the abdomen and pelvis without intravenous contrast. CTDI is 24.25 mGy and DLP is 1275.52 mGy-cm. Automated exposure control was utilized for the study. A dose lowering technique was utilized adhering to the principles of ALARA. COMPARISON: No relevant prior studies available. FINDINGS: Lung bases: Unremarkable. No mass. No consolidation. ABDOMEN: Liver: Unremarkable. Gallbladder and bile ducts: Cholecystectomy. No ductal dilation. Pancreas: Atrophy of the pancreas with calcifications, consistent with sequelae of chronic pancreatitis. No ductal dilation. Spleen: Unremarkable. No splenomegaly. Adrenals: Unremarkable. No mass. Kidneys and ureters: Nonobstructing 5 mm stone in the urinary bladder, recently passed in the RIGHT renal collecting system. Mild residual hydronephrosis of the RIGHT kidney. Bilateral renal cysts. Stomach and bowel: Mild fluid-filled small bowel with mild wall thickening, concerning for mild enteritis. No small bowel obstruction. PELVIS: Appendix: No findings to suggest acute appendicitis. Bladder: Unremarkable. No stones. Reproductive: Unremarkable as visualized. ABDOMEN and PELVIS: Intraperitoneal space: Unremarkable. No free air. No significant fluid collection. Bones/joints: Degenerative changes of the spine. No acute fracture. No dislocation. Soft tissues: Unremarkable. Vasculature: Atherosclerotic changes of the aorta. No abdominal aortic aneurysm. Lymph nodes: Unremarkable. No enlarged lymph nodes. IMPRESSION: 1. Nonobstructing 5 mm stone in the urinary bladder, recently passed in the RIGHT renal collecting system. Mild residual hydronephrosis of the RIGHT kidney. 2. Mild fluid-filled small bowel with mild wall thickening, concerning for mild enteritis. Electronically signed by: Ryan Cueto MD 12/31/23 00:03 AM Chest X-Ray 12/30/23 23:17 XR chest 1V portable CLINICAL HISTORY: renal failure COMPARISON STUDY: Chest radiograph October 31, 2022. FINDINGS: Mild elevation of the left hemidiaphragm is unchanged. Linear left basilar densities favor atelectasis. There is no pneumothorax or pleural effusion. Mild cardiomegaly is unchanged. Mediastinal contours are normal. There is no evidence for pulmonary edema. IMPRESSION: No acute cardiopulmonary findings. ACT 112: Negative or not required by law. Electronically signed by: Igor Roberts M.D. 12/31/2023 6:39 AM Retrograde Pyelogram 12/31/23 00:00 FL retrograde includes kub CLINICAL HISTORY: RIGHT STENTright-sided cystourethrogram COMPARISON STUDY: CT 12/30/2023 FLUOROSCOPY TIME: 22.2 seconds FLUOROSCOPY IMAGES: 4 EXPOSURE DOSE: 8.51 mGy FINDINGS: Right-sided cystourethrogram with stent placement which appears in satisfactory position with proximal portion within the superior pole right kidney. 8 urinary bladder catheter is in place. Cholecystectomy clips incidentally noted. IMPRESSION: Fluoroscopic assistance as above. ACT 112: Negative or not required by law. Electronically signed by: Philip Jacobson M.D. 12/31/2023 3:01 PM Foot X-Ray 12/31/23 19:36 LEFT FOOT 3 VIEWS CLINICAL HISTORY: Left foot injury. FINDINGS: 3 views of the left foot are obtained. No prior studies are available for comparison at the time of dictation. The skeletal structures are osteopenic. No fracture is seen. Mild arthritic change is noted throughout the foot, greatest at the first metatarsophalangeal joint. There is a high arch. An intraosseous lipoma is suggested in the calcaneus. The overlying soft tissues are within normal limits. IMPRESSION: No acute bony abnormality is identified. Electronically signed by: Isaac Morrissey M.D. 01/01/2024 7:16 AM Chest X-Ray 01/01/24 11:17 SINGLE VIEW CHEST CLINICAL HISTORY: Central venous catheter placement. FINDINGS: An AP, portable, upright chest radiograph is compared to study dated 12/30/2023. Correlation is made with chest CT dated 06/13/2012. A right-sided central venous catheter has been placed. The tip of the catheter projects obliquely over the mediastinum. This does not appear to project over the internal jugular vein. The heart is enlarged. There is mild pulmonary vascular congestion. There is chronic elevation of the left hemidiaphragm with left basilar opacities. No large pleural effusion or pneumothorax is seen. The skeletal structures are osteopenic. The bony thorax is grossly intact. IMPRESSION: 1. A right-sided central venous catheter has been placed. The tip projects obliquely over the mediastinum, and this does not appear to project over the internal jugular vein. Venous positioning is not confirmed. Clinical correlation will be essential. 2. Cardiomegaly with mild pulmonary vascular congestion. 3. Left basilar opacities there is an atelectasis versus a mild pneumonitis. Correlate clinically. ACT 112: Negative or not required by law. Electronically signed by: Isaac Morrissey M.D. 01/01/2024 11:56 AM Medications Administered Home Medications Medication Instructions Recorded Confirmed Last Taken atorvastatin 40 mg tablet 40 mg PO QAM 01/06/22 12/30/23 12/29/23 dolutegravir 50 mg-rilpivirine 25 1 tab PO QAM 01/06/22 12/30/23 12/29/23 mg tablet (Juluca) fluoxetine 20 mg capsule 20 mg PO QAM 01/06/22 12/30/23 12/29/23 insulin aspart U-100 100 unit/mL 10 unit subcut TIDM 01/06/22 12/30/23 12/29/23 (3 mL) subcutaneous pen (Novolog FlexPen U-100 Insulin aspart) multivitamin 1 tab PO QAM 01/06/22 12/30/23 12/29/23 omega 7-tpf-wyu-fish oil 1,000 mg 1 cap PO QAM 01/06/22 12/30/23 12/29/23 (120 mg-180 mg) capsule (Fish Oil) prasugrel 10 mg tablet 10 mg PO QAM 01/06/22 12/30/23 12/29/23 calcitriol 0.5 mcg capsule 0.5 mcg PO QAM 10/31/22 12/30/23 12/29/23 insulin glargine 100 unit/mL (3 22 unit subcut QA 02/10/23 12/30/23 12/29/23 mL) subcutaneous pen (Basaglar KwikPen U-100 Insulin) aspirin 81 mg tablet,delayed 81 mg PO DAILY 12/30/23 12/30/23 12/29/23 release cholecalciferol (vitamin D3) 25 25 mcg PO QAM 12/30/23 12/30/23 12/29/23 mcg (1,000 unit) capsule (Vitamin D3) coenzyme Q10 10 mg capsule (Co 10 mg PO DAILY 12/30/23 12/30/23 12/29/23 Q-10) metoprolol succinate 25 mg 25 mg PO QAM 12/30/23 12/30/23 12/29/23 tablet,extended release 24 hr Active Medications Generic Name Dose Route Start Last Admin Trade Name Freq PRN Reason Stop Dose Admin Acetaminophen 650 mg 12/31/23 03:02 01/03/24 21:29 Acetaminophen 325 Mg Tab PO 01/30/24 03:01 650 mg QID PRN Administration pain/fever Aspirin 81 mg 01/02/24 10:15 01/04/24 07:51 Aspirin 81 Mg Ectab PO 02/01/24 10:14 81 mg QAM MOSHE Administration Atorvastatin Calcium 40 mg 12/31/23 09:00 01/04/24 07:50 Atorvastatin 40 Mg Tab PO 01/30/24 08:59 40 mg QAM MOSHE Administration Calcitriol 0.5 mcg 12/31/23 09:00 01/04/24 07:51 Calcitriol 0.25 Mcg Capsule PO 01/30/24 08:59 0.5 mcg QAM MOSHE Administration Fluoxetine HCl 20 mg 12/31/23 09:00 01/04/24 07:51 Fluoxetine Hcl 20 Mg Cap PO 01/30/24 08:59 20 mg QAM MOSHE Administration Promethazine HCl 6.25 mg/ 50.25 mls @ 201 mls/hr 12/31/23 03:02 01/01/24 22:11 Sodium Chloride IV 01/30/24 03:01 Infused Q6H PRN Infusion Nausea And Vomiting Pantoprazole Sodium 40 mg/ 10 mls @ 5 mls/min 01/02/24 11:00 01/04/24 11:58 Syringe IV 02/01/24 10:59 5 mls/min DAILY@1100 MOSHE Administration Piperacillin Sod/Tazobactam 100 mls @ 25 mls/hr 01/01/24 21:00 01/04/24 11:55 Sod 4.5 gm/ Dextrose IV 01/11/24 20:59 Infused Q12 MOSHE Infusion Protocol Lactated Ringer's 1,000 mls @ 40 mls/hr 01/02/24 16:00 01/04/24 09:44 Lr IV 02/01/24 15:59 Not Given .Q24H MOSHE Insulin Aspart 0 units 12/31/23 04:25 01/04/24 12:02 Insulin Aspart Per Unit Charge SC 01/30/24 04:24 1 units ACHS MOSHE Administration Insulin Glargine 5 units 12/31/23 09:00 01/04/24 07:50 Lantus Per Unit Charge SQ 01/30/24 08:59 5 units DAILY MOSHE Administration Levothyroxine Sodium 25 mcg 01/01/24 06:30 01/04/24 07:49 Levothyroxine Sodium 25 Mcg Tablet PO 01/31/24 06:29 25 mcg DAILYBB MOSHE Administration Loperamide HCl 2 mg 12/31/23 19:30 01/03/24 21:29 Loperamide Hcl 2 Mg Cap PO 01/30/24 19:29 2 mg Q6H PRN Administration Diarrhea Metoprolol Succinate 25 mg 12/31/23 09:00 01/04/24 07:51 Metoprolol Succ 25mg Ext Rel Tab PO 01/30/24 08:59 25 mg QAM MOSHE Administration Miconazole Nitrate 1 appln 12/31/23 21:00 01/04/24 08:02 Miconazole Nitrate Powder 85 Gm EXT 01/30/24 20:59 1 appln TID MOSHE Administration Miscellaneous 1 each 12/31/23 08:00 01/04/24 09:45 Order Awaiting Action: Dolutegravir-Rilpivirine [Juluca] 50-25 Mg Tablet N/A 01/30/24 07:59 Not Given QS MOSHE Multivitamins 1 tab 12/31/23 09:00 01/04/24 07:51 Multivitamin Tab PO 01/30/24 08:59 1 tab QAM MOSHE Administration Potassium Chloride 40 meq 01/02/24 12:15 01/04/24 07:52 Potassium Chloride Crtab 20 Meq Tabcr PO 02/01/24 12:14 40 meq BID MOSHE Administration Prasugrel 10 mg 01/03/24 09:00 01/04/24 07:51 Prasugrel Tab 10 Mg Tab PO 02/02/24 08:59 10 mg QAM MOSHE Administration (3) Diarrhea Diarrhea type: unspecified type Qualified Code(s): R19.7 - Diarrhea, unspecified
[2024-01-04 15:07] LABS: HBSAG NON-REACTIVE (NON-REACTIVE); Hepatitis B Core Antibody Total REACTIVE (NON-REACTIVE); Hepatitis B Surface Ab, Quant 18 mIU/mL (> OR = 10)
[2024-01-05 04:49] LABS: Basophils # (auto) 0.02 K/uL (0.00-0.20); Basophils % (auto) 0.4 %; Eosinophils # (auto) 0.28 K/uL (0.00-0.50); Eosinophils % (auto) 5.3 %; Hematocrit (blood only) 29.4 % (42.0-52.0); Hemoglobin 9.8 g/dl (14.0-18.0); Immature Granulocytes # (auto) 0.05 K/uL (0.01-0.20); Immature Granulocytes % (auto) 0.9 %; Lymphocytes # (auto) 1.11 K/uL (1.20-3.40); Mean Corpuscular Hemoglobin 27.7 pg (25.0-34.0); Mean Corpuscular Hgb Conc 33.3 g/dL (32.0-36.0); Mean Corpuscular Volume 83.1 fL (80.0-100.0); Monocytes # (auto) 0.77 K/uL (0.11-0.59); Monocytes % (auto) 14.6 %; Neutrophils # (auto) 3.05 K/uL (1.40-6.50); Neutrophils % (auto) 57.8 %; Platelet Count 134 K/uL (130-400); RDW Coefficient of Variation 16.1 % (11.5-14.5); RDW Standard Deviation 49.1 fL (36.4-46.3); Red Blood Count 3.54 M/uL (4.70-6.10); White Blood Count 5.28 K/ul (4.8-10.8)
[2024-01-05 05:14] LABS: Albumin Globulin Ratio 1.5 (0.9-2); Albumin Level 2.9 gm/dl (3.4-5.0); BUN Creatinine Ratio 6.5 (10-20); Bilirubin,Total 0.5 mg/dl (0.2-1.0); Calcium 8.5 mg/dl (8.6-10.3); Creatinine Clr Calc Pharmacy 13.1 ml/min; Est GFR (African American) 10.8 ml/min; Est GFR (Non-African American) 9.3 ml/min; Phosphorus 3.7 mg/dl (2.5-4.9); Potassium 4.1 mmol/L (3.5-5.1); Total Protein 4.9 gm/dl (6.0-8.3)
[2024-01-05] MEDS ORDERED: SODIUM CHLORIDE 0.9% 1,000 ML IV PRN (07:36)
[2024-01-05] MEDS: HEPARIN SOD (PORCINE) 1000 UNIT/ML IV ONE (09:19)
[2024-01-05] MEDS: ALTEPLASE, RECOMBINANT 1 MG/ML 2ML VIAL INSTIL ONE ×2 (10:31→10:32)
--- NOTE | 2024-01-05 11:28 | Hospitalist Progress Note ---
Date of Service January 05, 2024 Assessment & Plan (1) YASIR (acute kidney injury): Plan 68 yo M with PMHx significant for chronic systolic heart failure (EF 45%, TTE 2022), CAD status post stent (2017), chronic LBBB, hypertension, hyperlipidemia, HIV on Rx, DM2 insulin requiring, CKD (baseline creatinine 2.7-3.1), chronic anemia (baseline hemoglobin of 13), history colonic polyps/internal hemorrhoids, anal HGSIL as per records, urolithiasis, mood disorder, past tobacco abuse a dmitted with acute renal failure on CKD secondary to diarrheal illness and obstructive uropathy from recurrent kidney stones. Acute renal Failure on CKD Baseline creatinine 2.7-3.1 Pt presented with Cr of 11 Nephrology was consulted Had stent placement by Urology on admission, initially started on IV hydration by Nephrology with bicarb drip No improvement on 12/31 with worsening mental status and hypotension Temp femoral dialysis catheter placement by [employer] Landing [employer] on 12/31, s/p dialysis session that day Further dialysis sessions per nephrology, bicarb drip has since been discontinued and started on LR per recs of nephrology Creatinine currently downtrending Appreciate Nephrology recs Discussed with nephro - 01/04 plan to remove femoral access today after dialysis and cont. to watch labs Septic Shock- resolved Pt with tachycardia, leukocytosis, low BP on 12/31 UA suggestive of infection and likely infectious source Noted lesion on left foot, diarrheal illness (see below) Lactate wnl Blood Cx x2 sets NGTD Urine Cx NGTD On Zosyn, continue Was on pressors in the ICU for BP support Resolved and downgraded Hydronephrosis, right Nephrolithiasis Complicated UTI CT abd /pelvis concerning for mild R hydronephrosis and possible nonobstructive nephrolithiasis Urology was consulted -Due to acute renal failure and given the hydronephrosis, Urology recommended ureteral stent placement -s/p ureteral stent placement on 12/30 Initial urine sample not suggestive of infection UA repeated on 12/31, suggestive of infection. Urine Cx NGTD Blood cx x2 NGTD On Zosyn per ICU, continue Appreciate Urology recs ID consulted for further recs in setting of HIV Diarrhea Enteritis Pt with copious diarrhea C diff negative Stool Cx negative CT abd/pelvis noting an enteritis PRN loperamide IV hydration ID consulted for further recs in setting of HIV - recommend GI consults + labs - labs ordered and GI consulted Anion gap Metabolic acidosis Anion gap elevated at 18 VBG with noted pH 7.10, CO2 22 and HCO3 7 secondary to above Nephrology consulted as above Resolved Acute on chronic anemia secondary to LGIB patient nontoxic history colonic polyps/internal hemorrhoids Hgb between 11-13 Anemia labs (iron, b12, folate all normal) Home aspirin and prasugrel resumed in the ICU Follow H&H, transfuse PRBC if hemoglobin less than 8 and or for symptomatic anemia Continue to monitor Pancytopenia Pt with anemia as above, decreasing platelets to 111 and new leukopenia as well Peripheral smear -combination of recent sepsis, kidney injury and anemia of chronic disease -no evidence of hematolymphoid neoplasia Continue to monitor with AM labs Consider Hematology consult Hyponatremia Sodium of 132 on admission Currently wnl Foot Injury, Left XRAY foot ordered -no acute abn Podiatry consulted, appreciate recs noted "subungual hematoma. This toenail and underlying hematoma are stable, with no current indication to remove the toenail on this hospitalization. The nail is intact distally with blood underlying the proximal nail plate. If this nail loosens or if evidence of infection develop, the nail can be removed at any point in the future. This would be a simple nail avulsion performed in the office. Otherwise, the nail will continue to grow out, though may remain thickened and dystrophic permanently." Intertrigo Pt with noted groin rash Desenex powder Hypothermia-Resolved Hypothyroidism Pt with noted hypothermia overnight [place] TSH 7.558, free T4 0.51 Started on levothyroxine 25mcg PCP followup chronic systolic heart failure patient on the dry side Echo could not be completed appropriately as pt in pain Read as characteristic for septic picture Monitor volume status hx CAD status post stent chronic LBBB Stable hyperlipidemia on statin Rx, continue HIV on Rx stable disease as per [facility] ID note from last month DMII insulin requiring suboptimal control as of hemoglobin A1c of 8.8 Basal/bolus insulin regimen while hospitalized mood disorder stable Diet: clear liquid diet, advance as tolerated DVT prophylaxis. SCDs Re: GI bleed Dispo: PT/OT ordered Admission and Anticipated Discharge Date Admission Date: December 31, 2023 Subjective Pt seen in follow up of YASIR on CKD (now on dialysis), diarrhea - seen by ID - plan to consult GI Currently laying in bed in NAD, on dialysis, using femoral access - plan to remove femoral access today and monitor labs for now - discussed with nephrology Pt reports feeling well overall, sometimes dizzy. thinks his diarrhea is improved but he is only on clear liquid diet for now Denies abdominal pain. Denies fever, chills, chest pain or shortness of breath Review of Systems Review of Systems: All systems reviewed & are unremarkable except as noted in Subjective Physical Exam Physical Exam: General: WD/WN M in [facility] HEENT: NC/AT CV: RRR Resp: Breath sounds clear bilaterally, no increased effort of breathing. Abdomen: Soft, nontender Extremities: No edema in lower extremities bilaterally. Moves extremities Skin: warm, dry Psych: Appropriate mood and affect Results & Data Results & Data Vital Signs (Past 12 Hours) Vital Signs Temp Pulse Pulse Resp BP BP Pulse Ox 01/05/24 11:15 37 C 70 21 177/81 H 97 01/05/24 10:00 71 157/92 H 01/05/24 09:30 59 L 178/93 H 01/05/24 09:05 36.9 C 59 L 01/05/24 08:17 78 01/05/24 08:14 36.9 C 67 20 140/69 93 01/05/24 01:00 37.2 C 60 14 94 01/05/24 00:00 155/78 H 01/05/24 00:00 37.3 C 55 L 13 93 O2 Del Method 01/05/24 11:15 Room Air 01/05/24 10:00 01/05/24 09:30 01/05/24 09:05 01/05/24 08:17 01/05/24 08:14 Room Air 01/05/24 01:00 01/05/24 00:00 01/05/24 00:00 Laboratory Results 01/05/24 01/05/24 01/04/24 Range/Units 07:27 04:24 20:46 WBC 5.28 (4.8-10.8) K/ul RBC 3.54 L (4.70-6.10) M/uL Hgb 9.8 L (14.0-18.0) g/dl Hct 29.4 L (42.0-52.0) % MCV 83.1 (80.0-100.0) fL MCH 27.7 (25.0-34.0) pg MCHC 33.3 (32.0-36.0) g/dL RDW Std Deviation 49.1 H (36.4-46.3) fL RDW Coeff of Meera 16.1 H (11.5-14.5) % Plt Count 134 (130-400) K/uL MPV 9.0 L (9.4-12.4) fL Immature Gran % (Auto) 0.9 % Neut % (Auto) 57.8 % Lymph % (Auto) 21.0 % [place] % (Auto) 14.6 % Eos % (Auto) 5.3 % Baso % (Auto) 0.4 % Neut # (Auto) 3.05 (1.40-6.50) K/uL Lymph # (Auto) 1.11 L (1.20-3.40) K/uL [place] # (Auto) 0.77 H (0.11-0.59) K/uL Eos # (Auto) 0.28 (0.00-0.50) K/uL Baso # (Auto) 0.02 (0.00-0.20) K/uL Immature Gran # (Auto) 0.05 (0.01-0.20) K/uL Sodium 139 (136-145) mmol/L Potassium 4.1 D (3.5-5.1) mmol/L Chloride 107 (98-107) mmol/L Carbon Dioxide 24 (21-32) mmol/L Anion Gap 8 (3-11) BUN 37 H (6-23) mg/dl Creatinine 5.67 H* D (0.6-1.4) mg/dl Est Cr Clr Drug Dosing 13.1 ml/min Est GFR ( Amer) 10.8 ml/min Est GFR (Non-Af Amer) 9.3 ml/min BUN/Creatinine Ratio 6.5 L (10-20) Glucose 123 H (70-99(Fasting)) mg/dl POC Glucose 109 H 135 H (70-99) mg/dl Calcium 8.5 L (8.6-10.3) mg/dl Phosphorus 3.7 (2.5-4.9) mg/dl Magnesium 2.0 (1.7-2.4) mg/dl Total Bilirubin 0.5 (0.2-1.0) mg/dl AST 116 H (13-39) U/L ALT 40 (7-52) U/L Alkaline Phosphatase 90 (34-104) U/L Total Protein 4.9 L (6.0-8.3) gm/dl Albumin 2.9 L (3.4-5.0) gm/dl Globulin 2.0 L (2.5-4.0) gm/dl Albumin/Globulin Ratio 1.5 (0.9-2) Hep Bs Antigen (NON-REACTIVE) Hep Bs Ag Confirmation Hep Bs Antibody, Quant (> OR = 10) mIU/mL Hep B Core Total Ab (NON-REACTIVE) 01/04/24 01/01/24 Range/Units 16:24 11:24 WBC (4.8-10.8) K/ul RBC (4.70-6.10) M/uL Hgb (14.0-18.0) g/dl Hct (42.0-52.0) % MCV (80.0-100.0) fL MCH (25.0-34.0) pg MCHC (32.0-36.0) g/dL RDW Std Deviation (36.4-46.3) fL RDW Coeff of Meera (11.5-14.5) % Plt Count (130-400) K/uL MPV (9.4-12.4) fL Immature Gran % (Auto) % Neut % (Auto) % Lymph % (Auto) % [place] % (Auto) % Eos % (Auto) % Baso % (Auto) % Neut # (Auto) (1.40-6.50) K/uL Lymph # (Auto) (1.20-3.40) K/uL [place] # (Auto) (0.11-0.59) K/uL Eos # (Auto) (0.00-0.50) K/uL Baso # (Auto) (0.00-0.20) K/uL Immature Gran # (Auto) (0.01-0.20) K/uL Sodium (136-145) mmol/L Potassium (3.5-5.1) mmol/L Chloride (98-107) mmol/L Carbon Dioxide (21-32) mmol/L Anion Gap (3-11) BUN (6-23) mg/dl Creatinine (0.6-1.4) mg/dl Est Cr Clr Drug Dosing ml/min Est GFR ( Amer) ml/min Est GFR (Non-Af Amer) ml/min BUN/Creatinine Ratio (10-20) Glucose (70-99(Fasting)) mg/dl POC Glucose 102 H (70-99) mg/dl Calcium (8.6-10.3) mg/dl Phosphorus (2.5-4.9) mg/dl Magnesium (1.7-2.4) mg/dl Total Bilirubin (0.2-1.0) mg/dl AST (13-39) U/L ALT (7-52) U/L Alkaline Phosphatase (34-104) U/L Total Protein (6.0-8.3) gm/dl Albumin (3.4-5.0) gm/dl Globulin (2.5-4.0) gm/dl Albumin/Globulin Ratio (0.9-2) Hep Bs Antigen NON-REACTIVE (NON-REACTIVE) Hep Bs Ag Confirmation TNP Hep Bs Antibody, Quant 18 (> OR = 10) mIU/mL Hep B Core Total Ab REACTIVE A (NON-REACTIVE) Medications Administered Current Inpatient Medications Acetaminophen (Acetaminophen 325 Mg Tab) 650 mg PO QID PRN PRN Reason: pain/fever Stop: 01/30/24 03:01 Last Admin: 01/05/24 08:58 Dose: 650 mg Aspirin (Aspirin 81 Mg Ectab) 81 mg PO [facility] Stop: 02/01/24 10:14 Last Admin: 01/05/24 08:25 Dose: 81 mg Atorvastatin Calcium (Atorvastatin 40 Mg Tab) 40 mg PO [facility] Stop: 01/30/24 08:59 Last Admin: 01/05/24 08:26 Dose: 40 mg Calcitriol (Calcitriol 0.25 Mcg Capsule) 0.5 mcg PO [facility] Stop: 01/30/24 08:59 Last Admin: 01/05/24 08:25 Dose: 0.5 mcg Dextrose (Dextrose 50% 50 Ml Syringe) 25 - 50 ml IV UD PRN; Protocol PRN Reason: Hypoglycemia Protocol Stop: 01/30/24 04:24 Fluoxetine HCl (Fluoxetine Hcl 20 Mg Cap) 20 mg PO [facility] Stop: 01/30/24 08:59 Last Admin: 01/05/24 08:26 Dose: 20 mg Glucagon (Glucagon For Inj 1 Mg Vial) 1 mg SQ UD PRN; Protocol PRN Reason: Hypoglycemia Protocol Stop: 01/30/24 04:24 Glucose (Glucose 10 Tab/Tube) 4 - 8 tab PO UD PRN; Protocol PRN Reason: Hypoglycemia Treatment Stop: 01/30/24 04:24 Glucose (Glucose 40% Gel 15 Gm Tube) 15 - 30 gm PO UD PRN; Protocol PRN Reason: Hypoglycemia Protocol Stop: 01/30/24 04:24 Promethazine HCl 6.25 mg/ (Sodium Chloride) 50.25 mls @ 201 mls/hr IV Q6H PRN PRN Reason: Nausea And Vomiting Stop: 01/30/24 03:01 Last Infusion: 01/01/24 22:11 Dose: Infused Pantoprazole Sodium 40 mg/ (Syringe) 10 mls @ 5 mls/min IV DAILY@1100 [facility] Stop: 02/01/24 10:59 Last Admin: 01/04/24 11:58 Dose: 5 mls/min Piperacillin Sod/Tazobactam (Sod 4.5 gm/ Dextrose) 100 mls @ 25 mls/hr IV Q12 [facility]; Protocol Stop: 01/11/24 20:59 Last Infusion: 01/05/24 00:42 Dose: Infused Lactated Ringer's (Lr) 1,000 mls @ 40 mls/hr IV .Q24H [facility] Stop: 02/01/24 15:59 Last Admin: 01/04/24 17:59 Dose: 40 mls/hr Sodium Chloride (Nss) 1,000 mls @ 0 mls/hr IV .Q0M PRN PRN Reason: For Hemodialysis Use ONLY Stop: 01/05/24 13:35 Insulin Aspart (Insulin Aspart Per Unit Charge) 0 units SC ACHS [facility] Stop: 01/30/24 04:24 Last Admin: 01/05/24 08:10 Dose: Not Given Insulin Glargine (Lantus Per Unit Charge) 5 units SQ DAILY [facility] Stop: 01/30/24 08:59 Last Admin: 01/05/24 08:28 Dose: 5 units Levothyroxine Sodium (Levothyroxine Sodium 25 Mcg Tablet) 25 mcg PO DAILYBB [facility] Stop: 01/31/24 06:29 Last Admin: 01/05/24 05:32 Dose: 25 mcg Loperamide HCl (Loperamide Hcl 2 Mg Cap) 2 mg PO Q6H PRN PRN Reason: Diarrhea Stop: 01/30/24 19:29 Last Admin: 01/03/24 21:29 Dose: 2 mg Metoprolol Succinate (Metoprolol Succ 25mg Ext Rel Tab) 25 mg PO QAM [facility] Stop: 01/30/24 08:59 Last Admin: 01/05/24 08:26 Dose: 25 mg Miconazole Nitrate (Miconazole Nitrate Powder 85 Gm) 1 appln EXT TID [facility] Stop: 01/30/24 20:59 Last Admin: 01/05/24 08:29 Dose: 1 appln Miscellaneous (Order Awaiting Action: Dolutegravir-Rilpivirine [Juluca] 50-25 Mg Tablet) 1 each N/A QS [facility] Stop: 01/30/24 07:59 Last Admin: 01/04/24 23:34 Dose: Not Given Miscellaneous (Carbohydrates For Hypoglycemia ) 15 - 30 gm PO UD PRN PRN Reason: Hypoglycemia Protocol Stop: 01/30/24 04:24 Multivitamins (Multivitamin Tab) 1 tab PO QAM [facility] Stop: 01/30/24 08:59 Last Admin: 01/05/24 08:25 Dose: 1 tab Potassium Chloride (Potassium Chloride Crtab 20 Meq Tabcr) 40 meq PO BID [facility] Stop: 02/01/24 12:14 Last Admin: 01/05/24 08:26 Dose: 40 meq Prasugrel (Prasugrel Tab 10 Mg Tab) 10 mg PO QAM [facility] Stop: 02/02/24 08:59 Last Admin: 01/05/24 08:26 Dose: 10 mg
--- NOTE | 2024-01-05 11:50 | Nephrology Progress Note ---
Date of Service January 05, 2024 Assessment & Plan (1) YASIR (acute kidney injury): Plan: patient baseline creatinine is about 2.7-3.2 and has had CKD 4 for many years. etiology of current YASIR is severe volume depletion from diarrhea for the last 3 weeks but can not rule out significant obstructive uropathy component. s/p R ureteric stent. but we will still continue with aggressive fluid and electrolyte resuscitation. admission creatinine is 11. This is associated with very low serum bicarb of 7 but despite that potassium still on the low end of normal. such picture can happen with severe diarrhea with significant GI loss of bicarb and potassium. he had HD 12/31 and 01/01, 01/02; plan again 01/04 given that patient already had advanced CKD with a baseline creatinine of around 3 there is no guarantee that the kidney function will actually improve to where he can function w/o renal replacement therapy. severe prolonged volume depletion with diarrhea can cause ATN. -cont LR but will lower rate to 40 mL hourly -strict I/O -[employer] today no UF > then pull cath an dmonitor -daily bmp -remains unclear if he will need LT dialysis; in any event PD not an option w/ active and chronic diarrhea >plan to pull temp line in AM after HD if HD needed; then follow for need for other HD access >> TDC versus another temp care coordinated w/ Dr Latham regarding IVF and HD plans, catheter plans (2) CKD (chronic kidney disease) stage 4, GFR 15-29 ml/min: Plan: baseline CKD 4 with a creatinine anywhere from 2.7-3.2. In fact even when he was in [place] he was closely followed at [facility]. he had ESRD options class and in the past has indicated he will do peritoneal dialysis if such need arises. he also claims he is on transplant list at [facility]. (3) Hydronephrosis concurrent with and due to calculi of kidney and ureter: Plan: s/p R ureteral stent 12/29 Plan high medical complexity Admission and Anticipated Discharge Date Admission Date: December 31, 2023 Subjective seen on early AM rounds > had a reasonable night; thinks exertional breathing a bit better w/ positoin changes; ongoing diarrhea > inf dzs to evaluate. plan was for HD today and then pull catheter; some issues w/ return both catheter limbs this AM > ran a bit better w/ cathflo. 3L UOP charted Review of Systems 2 Review of Systems: All systems reviewed & are unremarkable except as noted in Subjective Physical Exam 2 Constitutional: well developed, well nourished and cooperative; no acute distress Eyes: EOM intact bilaterally ENMT: Ears: no external ear abnormality Nose: no external nose abnormality Mouth: + dry oral mucous membranes Neck: no nuchal rigidity Respiratory: normal respiratory effort Auscultation: + diminished lung sounds (kerry L base ) and + crackles (R base and some L caudal to base) Cardiovascular: Rate/Rhythm: regular rate and regular rhythm Extremities: n o edema Gastrointestinal (Abdomen): Inspection/Auscultation: normal bowel sounds P ercussion/Palpation: abdomen soft and + ascites; abdomen nontender Musculoskeletal: Extremities: strength 5/5 throughout Skin: no rashes, warm and dry Psychiatric: Orientation: alert, oriented to person, oriented to place and cooperative Results & Data Vital Signs (Past 12 Hours) Vital Signs Temp Pulse Pulse Resp BP BP Pulse Ox 01/05/24 11:15 37 C 70 21 177/81 H 97 01/05/24 10:00 71 157/92 H 01/05/24 09:30 59 L 178/93 H 01/05/24 09:05 36.9 C 59 L 01/05/24 08:17 78 01/05/24 08:14 36.9 C 67 20 140/69 93 01/05/24 01:00 37.2 C 60 14 94 01/05/24 00:00 155/78 H 01/05/24 00:00 37.3 C 55 L 13 93 O2 Del Method 01/05/24 11:15 Room Air 01/05/24 10:00 01/05/24 09:30 01/05/24 09:05 01/05/24 08:17 01/05/24 08:14 Room Air 01/05/24 01:00 01/05/24 00:00 01/05/24 00:00 Laboratory Results 01/05/24 04:24 01/05/24 04:24
[2024-01-05] MEDS: HEPARIN SOD (PORCINE) 1000 UNIT/ML IV SCH (12:12)
--- NOTE | 2024-01-05 13:23 | Gastrointestinal Consultation ---
Date of Consultation January 05, 2024 Assessment & Plan (1) Diarrhea: -Hold Effient -Plan for colonoscopy with random biopsies on Wednesday. Supervising Physician Co-Signing Physician Notes Agree with ZAC Marte as above Interviewed and examined patient and agree with above Abd: Soft, NT, ND, +BS Continue current therapy and supportive care Hold Effient now and will keep off for at least 48 hours prior to invasive workup. Colonoscopy on Wednesday History of Present Illness Reason for Consultation: Diarrhea Attending Physician: Ed Latham MD History of Present Illness Patient is a 68 yo male with PMH of CKD4, CAD, HIV, and chronic diarrhea. He is hospitalized with YASIR on CKD. He is receiving dialysis at the time of the visit. He notes >1 year of diarrhea. He had a colonoscopy in February 2024 with [facility] during which time he was noted to have a nonspecific colitis. It is unclear what happened after that as the patient does not remember and we do not have further GI records from [facility]. Per nursing he has had 8+ bowel movements today. CD4 count was within normal limits when last checked. CT abd/pelvis showed an enteritis. Stool PCR negative. Patient denies abdominal pain. No overt GI bleeding. No pertinent family history. Allergies Allergy/AdvReac Type Severity Reaction Status Date / Time No Known Allergies Allergy Unverified 12/30/23 23:49 Home Medications Medication Instructions Recorded Confirmed Type atorvastatin 40 mg tablet 40 mg PO QAM 01/06/22 12/30/23 History dolutegravir 50 mg-rilpivirine 25 1 tab PO QAM 01/06/22 12/30/23 History mg tablet (Juluca) fluoxetine 20 mg capsule 20 mg PO QAM 01/06/22 12/30/23 History insulin aspart U-100 100 unit/mL 10 unit subcut TIDM 01/06/22 12/30/23 History (3 mL) subcutaneous pen (Novolog FlexPen U-100 Insulin aspart) multivitamin 1 tab PO QAM 01/06/22 12/30/23 History omega 9-eis-ymw-fish oil 1,000 mg 1 cap PO QAM 01/06/22 12/30/23 History (120 mg-180 mg) capsule (Fish Oil) prasugrel 10 mg tablet 10 mg PO QAM 01/06/22 12/30/23 History calcitriol 0.5 mcg capsule 0.5 mcg PO QAM 10/31/22 12/30/23 History insulin glargine 100 unit/mL (3 22 unit subcut QAM 02/10/23 12/30/23 History mL) subcutaneous pen (Basaglar KwikPen U-100 Insulin) aspirin 81 mg tablet,delayed 81 mg PO DAILY 12/30/23 12/30/23 History release cholecalciferol (vitamin D3) 25 25 mcg PO QAM 12/30/23 12/30/23 History mcg (1,000 unit) capsule (Vitamin D3) coenzyme Q10 10 mg capsule (Co 10 mg PO DAILY 12/30/23 12/30/23 History Q-10) metoprolol succinate 25 mg 25 mg PO QAM 12/30/23 12/30/23 History tablet,extended release 24 hr Patient History Medical History Septic shock History of kidney stones Osteoarthritis Chronic lower back pain History of pancreatitis DM type 2 (diabetes mellitus, type 2) History of skin cancer [place] (hard of hearing) HLD (hyperlipidemia) History of myocardial infarction 2016 & 2019 Sleep apnea no device Diverticulosis GERD (gastroesophageal reflux disease) IBS (irritable bowel syndrome) Precancerous lesion rectal CAD (coronary artery disease) Per patient, stenting x 5 in 2016 and restenting of 1 vessel performed in July 2020 Depression CKD (chronic kidney disease), stage IV follows with [facility] Nephrology HIV (human immunodeficiency virus infection) Surgical History S/P ureteral stent placement History of removal of ureteral stent History of cystoscopy History of colonoscopy History of cholecystectomy History of cardiac catheterization 2016 - stents 2019 -- restenting x 1. 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: No Beliefs That Will Affect Care: None Current Living Situation: Alone Feels Safe at Home: Yes Assistive Devices: None Review of Systems Constitutional: no fever and no chills Respiratory: no cough and no dyspnea Cardiovascular: no chest pain Gastrointestinal: + diarrhea/loose stools; no abdominal pa in Physical Exam Constitutional: well developed Respiratory: normal respiratory effort Cardiovascular: Rate/Rhythm: regular rate Gastrointestinal (Abdomen): normal bowel sounds, soft, nontender, no hepatosplenomegaly Results & Data Vital Signs (Past 12 Hours) Vital Signs Temp Pulse Pulse Resp BP BP Pulse Ox 01/05/24 13:00 63 170/101 H 01/05/24 12:30 57 L 174/94 H 01/05/24 12:00 68 167/87 H 01/05/24 11:45 63 167/93 H 01/05/24 11:15 37 C 70 21 177/81 H 97 01/05/24 10:00 71 157/92 H 01/05/24 09:30 59 L 178/93 H 01/05/24 09:05 36.9 C 59 L 01/05/24 08:17 78 01/05/24 08:14 36.9 C 67 20 140/69 93 O2 Del Method 01/05/24 13:00 01/05/24 12:30 01/05/24 12:00 01/05/24 11:45 01/05/24 11:15 Room Air 01/05/24 10:00 01/05/24 09:30 01/05/24 09:05 01/05/24 08:17 01/05/24 08:14 Room Air PG Care Time/CCT Total # of Minutes Spent Total Time Spent with Patient: Total time spent is greater than 50% in coordination of care (as documented) at patient's floor/unit and/or counseling patient: Coding Level of Care Code 37997 INT INP/OBS CARE 3/75MIN Diagnoses Diarrhea R19.7 Diarrhea type: unspecified type (1) Diarrhea Diarrhea type: unspecified type Qualified Code(s): R19.7 - Diarrhea, unspecified
[2024-01-06 06:58] LABS: Basophils # (auto) 0.02 K/uL (0.00-0.20); Basophils % (auto) 0.3 %; Eosinophils # (auto) 0.32 K/uL (0.00-0.50); Eosinophils % (auto) 5.5 %; Hematocrit (blood only) 30.6 % (42.0-52.0); Hemoglobin 9.7 g/dl (14.0-18.0); Immature Granulocytes # (auto) 0.08 K/uL (0.01-0.20); Immature Granulocytes % (auto) 1.4 %; Lymphocytes # (auto) 0.97 K/uL (1.20-3.40); Lymphocytes % (auto) 16.6 %; Mean Corpuscular Hemoglobin 26.9 pg (25.0-34.0); Mean Corpuscular Hgb Conc 31.7 g/dL (32.0-36.0); Mean Corpuscular Volume 84.8 fL (80.0-100.0); Mean Platelet Volume 9.3 fL (9.4-12.4); Monocytes # (auto) 0.75 K/uL (0.11-0.59); Monocytes % (auto) 12.8 %; Neutrophils # (auto) 3.71 K/uL (1.40-6.50); Neutrophils % (auto) 63.4 %; Platelet Count 141 K/uL (130-400); RDW Coefficient of Variation 15.8 % (11.5-14.5); RDW Standard Deviation 49.2 fL (36.4-46.3); Red Blood Count 3.61 M/uL (4.70-6.10); White Blood Count 5.85 K/ul (4.8-10.8)
[2024-01-06 07:17] LABS: Albumin Globulin Ratio 1.3 (0.9-2); Albumin Level 2.8 gm/dl (3.4-5.0); BUN Creatinine Ratio 6.2 (10-20); Bilirubin,Total 0.5 mg/dl (0.2-1.0); Calcium 8.8 mg/dl (8.6-10.3); Creatinine Clr Calc Pharmacy 16.7 ml/min; Est GFR (African American) 14.2 ml/min; Est GFR (Non-African American) 12.3 ml/min; Globulin 2.1 gm/dl (2.5-4.0); Magnesium 1.9 mg/dl (1.7-2.4); Phosphorus 3.5 mg/dl (2.5-4.9); Potassium 4.4 mmol/L (3.5-5.1); Total Protein 4.9 gm/dl (6.0-8.3)
[2024-01-06] MEDS: JULUCA PO SCH (08:53)
--- NOTE | 2024-01-06 09:12 | Hospitalist Progress Note ---
Date of Service January 06, 2024 Assessment & Plan (1) YASIR (acute kidney injury): Plan 68 yo M with PMHx significant for chronic systolic heart failure (EF 45%, TTE 2022), CAD status post stent (2017), chronic LBBB, hypertension, hyperlipidemia, HIV on Rx, DM2 insulin requiring, CKD (baseline creatinine 2.7-3.1), chronic anemia (baseline hemoglobin of 13), history colonic polyps/internal hemorrhoids, anal HGSIL as per records, urolithiasis, mood disorder, past tobacco abuse a dmitted with acute renal failure on CKD secondary to diarrheal illness and obstructive uropathy from recurrent kidney stones. Acute renal Failure on CKD Baseline creatinine 2.7-3.1 Pt presented with Cr of 11 Nephrology was consulted Had stent placement by Urology on admission, initially started on IV hydration by Nephrology with bicarb drip No improvement on 12/31 with worsening mental status and hypotension Temp femoral dialysis catheter placement by Crematorium Operator on 12/31, s/p dialysis session that day Further dialysis sessions per nephrology, bicarb drip has since been discontinued and started on LR per recs of nephrology Creatinine currently downtrending Appreciate Nephrology recs Discussed with nephro - 01/04 plan to remove femoral access today after dialysis and cont. to watch labs Septic Shock- resolved Pt with tachycardia, leukocytosis, low BP on 12/31 UA suggestive of infection and likely infectious source Noted lesion on left foot, diarrheal illness (see below) Lactate wnl Blood Cx x2 sets NGTD Urine Cx NGTD On Zosyn, continue Was on pressors in the ICU for BP support Resolved and downgraded Hydronephrosis, right Nephrolithiasis Complicated UTI CT abd /pelvis concerning for mild R hydronephrosis and possible nonobstructive nephrolithiasis Urology was consulted -Due to acute renal failure and given the hydronephrosis, Urology recommended ureteral stent placement -s/p ureteral stent placement on 12/30 Initial urine sample not suggestive of infection UA repeated on 12/31, suggestive of infection. Urine Cx NGTD Blood cx x2 NGTD On Zosyn per ICU, continue Appreciate Urology recs ID consulted for further recs in setting of HIV Diarrhea Enteritis Pt with copious diarrhea C diff negative Stool Cx negative CT abd/pelvis noting an enteritis PRN loperamide IV hydration ID consulted for further recs in setting of HIV - recommend GI consults + labs - labs ordered and GI consulted Plan for colonoscopy w/ biopsy tmrw (Saturday 01/06) Anion gap Metabolic acidosis Anion gap elevated at 18 VBG with noted pH 7.10, CO2 22 and HCO3 7 secondary to above Nephrology consulted as above Resolved Acute on chronic anemia secondary to LGIB patient nontoxic history colonic polyps/internal hemorrhoids Hgb between 11-13 Anemia labs (iron, b12, folate all normal) Home aspirin and prasugrel resumed in the ICU Follow H&H, transfuse PRBC if hemoglobin less than 8 and or for symptomatic anemia Continue to monitor Pancytopenia Pt with anemia as above, decreasing platelets to 111 and new leukopenia as well Peripheral smear -combination of recent sepsis, kidney injury and anemia of chronic disease -no evidence of hematolymphoid neoplasia Continue to monitor with AM labs Consider Hematology consult Hyponatremia Sodium of 132 on admission Currently wnl Foot Injury, Left XRAY foot ordered -no acute abn Podiatry consulted, appreciate recs noted "subungual hematoma. This toenail and underlying hematoma are stable, with no current indication to remove the toenail on this hospitalization. The nail is intact distally with blood underlying the proximal nail plate. If this nail loosens or if evidence of infection develop, the nail can be removed at any point in the future. This would be a simple nail avulsion performed in the office. Otherwise, the nail will continue to grow out, though may remain thickened and dystrophic permanently." Intertrigo Pt with noted groin rash Desenex powder Hypothermia-Resolved Hypothyroidism Pt with noted hypothermia overnight [place]ugger TSH 7.558, free T4 0.51 Started on levothyroxine 25mcg PCP followup chronic systolic heart failure patient on the dry side Echo could not be completed appropriately as pt in pain Read as characteristic for septic picture Monitor volume status hx CAD status post stent chronic LBBB Stable hyperlipidemia on statin Rx, continue HIV on Rx stable disease as per [facility] ID note from last month DMII insulin requiring suboptimal control as of hemoglobin A1c of 8.8 Basal/bolus insulin regimen while hospitalized mood disorder stable Diet: clear liquid diet, advance as tolerated DVT prophylaxis. SCDs Re: GI bleed Dispo: PT/OT ordered Admission and Anticipated Discharge Date Admission Date: December 31, 2023 Subjective Pt seen in follow up of YASIR on CKD (now on dialysis), diarrhea - seen by ID and GI - plan for colonoscopy tmrw Currently sitting up in bed in NAD Had dialysis yesterday, then removed femoral access Pt reports feeling well overall, thinks his diarrhea is improved but he is only on clear liquid diet for now. Reports he had some BRBPR yesterday. Denies abdominal pain. Denies fever, chills, chest pain or shortness of breath Family present at the beside Review of Systems Review of Systems: All systems reviewed & are unremarkable except as noted in Subjective Physical Exam Physical Exam: General: WD/WN M in NAD HEENT: NC/AT CV: RRR Resp: Breath sounds clear bilaterally, no increased effort of breathing. Abdomen: Soft, nontender Extremities: No edema in lower extremities bilaterally. Moves extremities Skin: warm, dry Psych: Appropriate mood and affect Results & Data Results & Data Vital Signs (Past 12 Hours) Vital Signs Temp Pulse Pulse Pulse Resp BP Pulse Ox 01/06/24 07:22 36.3 C L 65 18 181/90 H 96 01/06/24 03:42 36.8 C 65 20 160/84 H 94 01/05/24 22:28 66 01/05/24 22:20 36.7 C 64 16 178/93 H 93 O2 Del Method 01/06/24 07:22 Room Air 01/06/24 03:42 Room Air 01/05/24 22:28 01/05/24 22:20 Room Air Laboratory Results 01/06/24 01/06/24 01/05/24 Range/Units 07:25 06:25 20:26 WBC 5.85 (4.8-10.8) K/ul RBC 3.61 L (4.70-6.10) M/uL Hgb 9.7 L (14.0-18.0) g/dl Hct 30.6 L (42.0-52.0) % MCV 84.8 (80.0-100.0) fL MCH 26.9 (25.0-34.0) pg MCHC 31.7 L (32.0-36.0) g/dL RDW Std Deviation 49.2 H (36.4-46.3) fL RDW Coeff of Meera 15.8 H (11.5-14.5) % Plt Count 141 (130-400) K/uL MPV 9.3 L (9.4-12.4) fL Immature Gran % (Auto) 1.4 % Neut % (Auto) 63.4 % Lymph % (Auto) 16.6 % [place] % (Auto) 12.8 % Eos % (Auto) 5.5 % Baso % (Auto) 0.3 % Neut # (Auto) 3.71 (1.40-6.50) K/uL Lymph # (Auto) 0.97 L (1.20-3.40) K/uL [place] # (Auto) 0.75 H (0.11-0.59) K/uL Eos # (Auto) 0.32 (0.00-0.50) K/uL Baso # (Auto) 0.02 (0.00-0.20) K/uL Immature Gran # (Auto) 0.08 (0.01-0.20) K/uL Sodium 140 (136-145) mmol/L Potassium 4.4 (3.5-5.1) mmol/L Chloride 112 H (98-107) mmol/L Carbon Dioxide 23 (21-32) mmol/L Anion Gap 5 (3-11) BUN 28 H (6-23) mg/dl Creatinine 4.52 H* D (0.6-1.4) mg/dl Est Cr Clr Drug Dosing 16.7 ml/min Est GFR ( Amer) 14.2 ml/min Est GFR (Non-Af Amer) 12.3 ml/min BUN/Creatinine Ratio 6.2 L (10-20) Glucose 127 H (70-99(Fasting)) mg/dl POC Glucose 109 H 135 H (70-99) mg/dl Calcium 8.8 (8.6-10.3) mg/dl Phosphorus 3.5 (2.5-4.9) mg/dl Magnesium 1.9 (1.7-2.4) mg/dl Total Bilirubin 0.5 (0.2-1.0) mg/dl AST 89 H (13-39) U/L ALT 37 (7-52) U/L Alkaline Phosphatase 83 (34-104) U/L Total Protein 4.9 L (6.0-8.3) gm/dl Albumin 2.8 L (3.4-5.0) gm/dl Globulin 2.1 L (2.5-4.0) gm/dl Albumin/Globulin Ratio 1.3 (0.9-2) 01/05/24 01/05/24 Range/Units 16:10 11:22 WBC (4.8-10.8) K/ul RBC (4.70-6.10) M/uL Hgb (14.0-18.0) g/dl Hct (42.0-52.0) % MCV (80.0-100.0) fL MCH (25.0-34.0) pg MCHC (32.0-36.0) g/dL RDW Std Deviation (36.4-46.3) fL RDW Coeff of Meera (11.5-14.5) % Plt Count (130-400) K/uL MPV (9.4-12.4) fL Immature Gran % (Auto) % Neut % (Auto) % Lymph % (Auto) % [place] % (Auto) % Eos % (Auto) % Baso % (Auto) % Neut # (Auto) (1.40-6.50) K/uL Lymph # (Auto) (1.20-3.40) K/uL [place] # (Auto) (0.11-0.59) K/uL Eos # (Auto) (0.00-0.50) K/uL Baso # (Auto) (0.00-0.20) K/uL Immature Gran # (Auto) (0.01-0.20) K/uL Sodium (136-145) mmol/L Potassium (3.5-5.1) mmol/L Chloride (98-107) mmol/L Carbon Dioxide (21-32) mmol/L Anion Gap (3-11) BUN (6-23) mg/dl Creatinine (0.6-1.4) mg/dl Est Cr Clr Drug Dosing ml/min Est GFR ( Amer) ml/min Est GFR (Non-Af Amer) ml/min BUN/Creatinine Ratio (10-20) Glucose (70-99(Fasting)) mg/dl POC Glucose 94 142 H (70-99) mg/dl Calcium (8.6-10.3) mg/dl Phosphorus (2.5-4.9) mg/dl Magnesium (1.7-2.4) mg/dl Total Bilirubin (0.2-1.0) mg/dl AST (13-39) U/L ALT (7-52) U/L Alkaline Phosphatase (34-104) U/L Total Protein (6.0-8.3) gm/dl Albumin (3.4-5.0) gm/dl Globulin (2.5-4.0) gm/dl Albumin/Globulin Ratio (0.9-2) Medications Administered Current Inpatient Medications Acetaminophen (Acetaminophen 325 Mg Tab) 650 mg PO QID PRN PRN Reason: pain/fever Stop: 01/30/24 03:01 Last Admin: 01/05/24 08:58 Dose: 650 mg Aspirin (Aspirin 81 Mg Ectab) 81 mg PO [facility] Stop: 02/01/24 10:14 Last Admin: 01/06/24 08:59 Dose: 81 mg Atorvastatin Calcium (Atorvastatin 40 Mg Tab) 40 mg PO [facility] Stop: 01/30/24 08:59 Last Admin: 01/06/24 08:53 Dose: 40 mg Calcitriol (Calcitriol 0.25 Mcg Capsule) 0.5 mcg PO [facility] Stop: 01/30/24 08:59 Last Admin: 01/06/24 08:52 Dose: 0.5 mcg Dextrose (Dextrose 50% 50 Ml Syringe) 25 - 50 ml IV UD PRN; Protocol PRN Reason: Hypoglycemia Protocol Stop: 01/30/24 04:24 Fluoxetine HCl (Fluoxetine Hcl 20 Mg Cap) 20 mg PO [facility] Stop: 01/30/24 08:59 Last Admin: 01/06/24 08:52 Dose: 20 mg Glucagon (Glucagon For Inj 1 Mg Vial) 1 mg SQ UD PRN; Protocol PRN Reason: Hypoglycemia Protocol Stop: 01/30/24 04:24 Glucose (Glucose 10 Tab/Tube) 4 - 8 tab PO UD PRN; Protocol PRN Reason: Hypoglycemia Treatment Stop: 01/30/24 04:24 Glucose (Glucose 40% Gel 15 Gm Tube) 15 - 30 gm PO UD PRN; Protocol PRN Reason: Hypoglycemia Protocol Stop: 01/30/24 04:24 Promethazine HCl 6.25 mg/ (Sodium Chloride) 50.25 mls @ 201 mls/hr IV Q6H PRN PRN Reason: Nausea And Vomiting Stop: 01/30/24 03:01 Last Infusion: 04/20/24 22:11 Dose: Infused Pantoprazole Sodium 40 mg/ (Syringe) 10 mls @ 5 mls/min IV DAILY@1100 [facility] Stop: 02/01/24 10:59 Last Admin: 01/05/24 12:50 Dose: 5 mls/min Piperacillin Sod/Tazobactam (Sod 4.5 gm/ Dextrose) 100 mls @ 25 mls/hr IV Q12 [facility]; Protocol Stop: 01/11/24 20:59 Last Infusion: 01/06/24 00:17 Dose: Infused Lactated Ringer's (Lr) 1,000 mls @ 40 mls/hr IV .Q24H [facility] Stop: 02/01/24 15:59 Last Admin: 01/05/24 20:19 Dose: 40 mls/hr Insulin Aspart (Insulin Aspart Per Unit Charge) 0 units SC ACHS [facility] Stop: 01/30/24 04:24 Last Admin: 01/06/24 08:07 Dose: Not Given Insulin Glargine (Lantus Per Unit Charge) 5 units SQ DAILY [facility] Stop: 01/30/24 08:59 Last Admin: 01/06/24 08:51 Dose: 5 units Levothyroxine Sodium (Levothyroxine Sodium 25 Mcg Tablet) 25 mcg PO DAILYBB [facility] Stop: 01/31/24 06:29 Last Admin: 01/06/24 06:03 Dose: 25 mcg Loperamide HCl (Loperamide Hcl 2 Mg Cap) 2 mg PO Q6H PRN PRN Reason: Diarrhea Stop: 01/30/24 19:29 Last Admin: 01/03/24 21:29 Dose: 2 mg Metoprolol Succinate (Metoprolol Succ 25mg Ext Rel Tab) 25 mg PO QAM [facility] Stop: 01/30/24 08:59 Last Admin: 01/06/24 08:52 Dose: 25 mg Miconazole Nitrate (Miconazole Nitrate Powder 85 Gm) 1 appln EXT TID [facility] Stop: 01/30/24 20:59 Last Admin: 01/06/24 08:59 Dose: 1 appln Miscellaneous (Order Awaiting Action: Dolutegravir-Rilpivirine [Juluca] 50-25 Mg Tablet) 1 each N/A QS [facility] Stop: 01/30/24 07:59 Last Admin: 01/06/24 08:54 Dose: Not Given Miscellaneous (Carbohydrates For Hypoglycemia ) 15 - 30 gm PO UD PRN PRN Reason: Hypoglycemia Protocol Stop: 01/30/24 04:24 Multivitamins (Multivitamin Tab) 1 tab PO QAM [facility] Stop: 01/30/24 08:59 Last Admin: 01/06/24 08:52 Dose: 1 tab Juluca 50mg /25mg Non-Formulary Patient's Own Med 1 each PO DAILY [facility] Stop: 02/05/24 08:59 Last Admin: 01/06/24 08:53 Dose: 1 tab Potassium Chloride (Potassium Chloride Crtab 20 Meq Tabcr) 40 meq PO BID [facility] Stop: 02/01/24 12:14 Last Admin: 01/06/24 08:52 Dose: 40 meq
--- NOTE | 2024-01-06 12:39 | Gastroenterology Progress Note ---
Date of Service January 06, 2024 Assessment & Plan (1) Diarrhea: Plan: Effient being held currently. Clear liquid diet today. Keep NPO after midnight with exception of bowel preparation. Colonoscopy planned for 01/07/24 for further investigation of his diarrhea. Admission and Anticipated Discharge Date Admission Date: December 31, 2023 Supervising Physician Co-Signing Physician Notes Agree with ZAC Marte as above Interviewed and examined patient and agree with above Abd: Soft, NT, ND, +BS Continue current therapy and supportive care Proceed with colonoscopy tomorrow with random colon biopsies due to chronic diarrhea. Subjective Patient is a 68 yo male with diarrhea. He notes improvement in his bowel frequency since admission. Cr 4.52 at present. He had a session of dialysis on 01/05/24. He denies GI bleeding at present. He denies abdominal pain. No further concerns at present. Review of Systems Gastrointestinal: + diarrhea/loose stools (improved) Physical Exam Constitutional: well developed Respiratory: normal respiratory effort Cardiovascular: Rate/Rhythm: regular rate Gastrointestinal (Abdomen): normal bowel sounds, soft, nontender, no hepatosplenomegaly Results & Data Results & Data Vital Signs (Past 12 Hours) Vital Signs Temp Pulse Pulse Resp BP Pulse Ox O2 Del Method 01/06/24 11:17 36.5 C 61 18 168/93 H 97 Room Air 01/06/24 09:00 61 01/06/24 07:22 36.3 C L 65 18 181/90 H 96 Room Air 01/06/24 03:42 36.8 C 65 20 160/84 H 94 Room Air PG Care Time/CCT Total # of Minutes Spent Total Time Spent with Patient: Total time spent is greater than 50% in coordination of care (as documented) at patient's floor/unit and/or counseling patient: Coding Level of Care Code 04815 SUB INP/OBS CARE 3/50MIN Diagnoses Diarrhea R19.7 Diarrhea type: unspecified type (1) Diarrhea Diarrhea type: unspecified type Qualified Code(s): R19.7 - Diarrhea, unspecified
--- NOTE | 2024-01-06 13:43 | Nephrology Progress Note ---
Date of Service January 06, 2024 Assessment & Plan (1) YASIR (acute kidney injury): Plan: patient baseline creatinine is about 2.7-3.2 and has had CKD 4 for many years. etiology of current YASIR is severe volume depletion from worsened chronic diarrhea for 3 weeks [employer] . doubt significant obstructive uropathy component, though he is s/p R ureteric stent. but we will still continue with aggressive fluid and electrolyte resuscitation. admission creatinine is 11. This is associated with very low serum bicarb of 7 but despite that potassium still on the low end of normal. such picture can happen with severe diarrhea with significant GI loss of bicarb and potassium. he had HD 12/31 and 01/01, 01/02; 01/04 >>currently no dialysis catheter given that patient already had advanced CKD with a baseline creatinine of around 3 there is no guarantee that the kidney function will actually improve to where he can function w/o renal replacement therapy. severe prolonged volume depletion with diarrhea can cause ATN. >>[place] (his HIV med) not well studied/advised in YASIR or advanced CKD >> ID did recommend continuing on eval 48 hrs ago >stopped LR given HTN, edema -strict I/O -daily bmp -remains unclear if he will need LT dialysis; in any event PD not an option w/ active and chronic diarrhea so would need HD catheter >follow for need for other HD access >> TDC versus another temp -would avoid diuretics for edema at this point since he's doing colonosocpy prep/already dehydrating somewhat w/ that process RECOMMEND for 01/06 >> -curbside vascular to ensure he could get TDC if needed Wednesday -review w/ [facility] renal/inf dzs whether [place] best HIV med w/ current YASIR (though he was on it w/ already severe CKD) care coordinated w/ Dr Latham regarding IVF and HD plans, catheter plans and curbsides for AM (2) Hypertension: Plan: uncontrolled BP > started nifedipine (does not interact w/ HIV med) ER 30 mg >stopped IVF (3) CKD (chronic kidney disease) stage 4, GFR 15-29 ml/min: Plan: baseline CKD 4 with a creatinine anywhere from 2.7-3.2. In fact even when he was in [place] he was closely followed at [facility]. he had ESRD options class and in the past has indicated he will do peritoneal dialysis if such need arises. he also claims he is on transplant list at [facility]. (4) Hydronephrosis concurrent with and due to calculi of kidney and ureter: Plan: s/p R ureteral stent 12/29 Plan high medical complexity Admission and Anticipated Discharge Date Admission Date: December 31, 2023 Subjective more hypertensive past 36 hrs > not normally an issue fo rhim. for colonoscopy in am to eval diarrhea. has more edema today kerry lower legs; diarrhea slowed some but also now prepping for colonosocpy for am. no sob, no n/v, no uncontrolled pain, no rash Review of Systems 2 Review of Systems: All systems reviewed & are unremarkable except as noted in Subjective Physical Exam 2 Constitutional: well developed, well nourished and cooperative; no acute distress Eyes: EOM intact bilaterally ENMT: Ears: no external ear abnormality Nose: no external nose abnormality Mouth: + dry oral mucous membranes Neck: no nuchal rigidity Respiratory: normal respiratory effort Auscultation: + diminished lung sounds (kerry L base ) Cardiovascular: Rate/Rhythm: regular rate and regular rhythm Extremities: n o edema Gastrointestinal (Abdomen): Inspection/Auscultation: + abdomen distended (centripedal obesity) and normal bowel sounds Percussion/Palpation: abdomen soft; abdomen nontender Musculoskeletal: Extremities: strength 5/5 throughout Skin: no rashes, warm and dry Psychiatric: Orientation: alert, oriented to person, oriented to place and cooperative Results & Data Vital Signs (Past 12 Hours) Vital Signs Temp Pulse Pulse Resp BP Pulse Ox O2 Del Method 01/06/24 11:17 36.5 C 61 18 168/93 H 97 Room Air 01/06/24 09:00 61 01/06/24 07:22 36.3 C L 65 18 181/90 H 96 Room Air 01/06/24 03:42 36.8 C 65 20 160/84 H 94 Room Air Laboratory Results 01/06/24 06:25 01/06/24 06:25
[2024-01-06] MEDS: NIFEdipine EXTENDED REL 30 MG TABCR PO SCH (15:16)
[2024-01-06] MEDS: LAVAGE SOLUTION 4000ML PO SCH (17:19)
[2024-01-07 06:56] LABS: Hematocrit (blood only) 30.5 % (42.0-52.0); Hemoglobin 9.6 g/dl (14.0-18.0); Mean Corpuscular Hemoglobin 26.8 pg (25.0-34.0); Mean Corpuscular Hgb Conc 31.5 g/dL (32.0-36.0); Mean Corpuscular Volume 85.2 fL (80.0-100.0); Mean Platelet Volume 9.1 fL (9.4-12.4); Platelet Count 130 K/uL (130-400); RDW Coefficient of Variation 15.8 % (11.5-14.5); RDW Standard Deviation 48.4 fL (36.4-46.3); Red Blood Count 3.58 M/uL (4.70-6.10); White Blood Count 5.99 K/ul (4.8-10.8)
[2024-01-07 07:26] LABS: Albumin Globulin Ratio 1.3 (0.9-2); Albumin Level 2.8 gm/dl (3.4-5.0); BUN Creatinine Ratio 5.7 (10-20); Bilirubin,Total 0.5 mg/dl (0.2-1.0); Calcium 8.3 mg/dl (8.6-10.3); Creatinine Clr Calc Pharmacy 15.5 ml/min; Est GFR (Non-African American) 11.2 ml/min; Globulin 2.1 gm/dl (2.5-4.0); Magnesium 1.8 mg/dl (1.7-2.4); Phosphorus 3.3 mg/dl (2.5-4.9); Potassium 4.7 mmol/L (3.5-5.1); Total Protein 4.9 gm/dl (6.0-8.3)
--- NOTE | 2024-01-07 07:50 | Anesthesiology Consultation ---
Date of Service January 07, 2024 History Surgery Operation Date: 12/31/23 09:10 Proposed Procedures p Cystoscopy, Right Retrograde Pyelogram, Stent Placement, Possible Ureteroscopy, Laser Lithotripy - Christopher Gomez DO Operation Date: 01/07/24 16:30 Proposed Procedures p Colonoscopy Dr. Khalil - Gianfranco Khalil, DO Height/Weight Height: 5 ft 9 in Weight: 88.2 kg Allergies Allergy/AdvReac Type Severity Reaction Status Date / Time No Known Allergies Allergy Unverified 12/30/23 23:49 Medications Home Medications Medication Instructions Recorded Confirmed Last Taken atorvastatin 40 mg tablet 40 mg PO QAM 01/06/22 12/30/23 12/29/23 dolutegravir 50 mg-rilpivirine 25 1 tab PO QAM 01/06/22 12/30/23 12/29/23 mg tablet (Juluca) fluoxetine 20 mg capsule 20 mg PO QAM 01/06/22 12/30/23 12/29/23 insulin aspart U-100 100 unit/mL 10 unit subcut TIDM 01/06/22 12/30/23 12/29/23 (3 mL) subcutaneous pen (Novolog FlexPen U-100 Insulin aspart) multivitamin 1 tab PO QAM 01/06/22 12/30/23 12/29/23 omega 3-[id number]-[id number]-fish oil 1,000 mg 1 cap PO QAM 01/06/22 12/30/23 12/29/23 (120 mg-180 mg) capsule (Fish Oil) prasugrel 10 mg tablet 10 mg PO QAM 01/06/22 12/30/23 12/29/23 calcitriol 0.5 mcg capsule 0.5 mcg PO QAM 10/31/22 12/30/23 12/29/23 insulin glargine 100 unit/mL (3 22 unit subcut QAM 02/10/23 12/30/23 12/29/23 mL) subcutaneous pen (Basaglar KwikPen U-100 Insulin) aspirin 81 mg tablet,delayed 81 mg PO DAILY 12/30/23 12/30/23 12/29/23 release cholecalciferol (vitamin D3) 25 25 mcg PO QAM 12/30/23 12/30/23 12/29/23 mcg (1,000 unit) capsule (Vitamin D3) coenzyme Q10 10 mg capsule (Co 10 mg PO DAILY 12/30/23 12/30/23 12/29/23 Q-10) metoprolol succinate 25 mg 25 mg PO QAM 12/30/23 12/30/23 12/29/23 tablet,extended release 24 hr Active Medications Generic Name Dose Route Start Last Admin Trade Name Freq PRN Reason Stop Dose Admin Acetaminophen 650 mg 12/31/23 03:02 01/05/24 08:58 Acetaminophen 325 Mg Tab PO 01/30/24 03:01 650 mg QID PRN Administration pain/fever Aspirin 81 mg 01/02/24 10:15 01/06/24 08:59 Aspirin 81 Mg Ectab PO 02/01/24 10:14 81 mg QAM MOSHE Administration Atorvastatin Calcium 40 mg 12/31/23 09:00 01/06/24 08:53 Atorvastatin 40 Mg Tab PO 01/30/24 08:59 40 mg QAM MOSHE Administration Calcitriol 0.5 mcg 12/31/23 09:00 01/06/24 08:52 Calcitriol 0.25 Mcg Capsule PO 01/30/24 08:59 0.5 mcg QAM MOSHE Administration Fluoxetine HCl 20 mg 12/31/23 09:00 01/06/24 08:52 Fluoxetine Hcl 20 Mg Cap PO 01/30/24 08:59 20 mg QAM MOSHE Administration Promethazine HCl 6.25 mg/ 50.25 mls @ 201 mls/hr 12/31/23 03:02 01/01/24 22:11 Sodium Chloride IV 01/30/24 03:01 Infused Q6H PRN Infusion Nausea And Vomiting Pantoprazole Sodium 40 mg/ 10 mls @ 5 mls/min 01/02/24 11:00 01/06/24 12:18 Syringe IV 02/01/24 10:59 5 mls/min DAILY@1100 MOSHE Administration Piperacillin Sod/Tazobactam 100 mls @ 25 mls/hr 01/01/24 21:00 01/07/24 01:55 Sod 4.5 gm/ Dextrose IV 01/11/24 20:59 Infused Q12 MOSHE Infusion Protocol Insulin Aspart 0 units 12/31/23 04:25 01/07/24 07:07 Insulin Aspart Per Unit Charge SC 01/30/24 04:24 Not Given ACHS [facility] Insulin Glargine 5 units 12/31/23 09:00 01/06/24 08:51 Lantus Per Unit Charge SQ 01/30/24 08:59 5 units DAILY MOSHE Administration Levothyroxine Sodium 25 mcg 01/01/24 06:30 01/07/24 06:34 Levothyroxine Sodium 25 Mcg Tablet PO 01/31/24 06:29 25 mcg DAILYBB MOSHE Administration Loperamide HCl 2 mg 12/31/23 19:30 01/03/24 21:29 Loperamide Hcl 2 Mg Cap PO 01/30/24 19:29 2 mg Q6H PRN Administration Diarrhea Metoprolol Succinate 25 mg 12/31/23 09:00 01/06/24 08:52 Metoprolol Succ 25mg Ext Rel Tab PO 01/30/24 08:59 25 mg QAM MOSHE Administration Miconazole Nitrate 1 appln 12/31/23 21:00 01/06/24 21:06 Miconazole Nitrate Powder 85 Gm EXT 01/30/24 20:59 Not Given TID MOSHE Multivitamins 1 tab 12/31/23 09:00 01/06/24 08:52 Multivitamin Tab PO 01/30/24 08:59 1 tab QAM MOSHE Administration Nifedipine 30 mg 01/06/24 14:00 01/06/24 15:16 Nifedipine Extended Rel 30 Mg Tabcr PO 02/05/24 13:59 30 mg QAM MOSHE Administration Juluca 50mg /25mg 1 each 01/06/24 09:00 01/06/24 08:53 Non-Formulary PO 02/05/24 08:59 1 tab Patient's Own Med DAILY MOSHE Administration Potassium Chloride 40 meq 01/02/24 12:15 01/06/24 21:01 Potassium Chloride Crtab 20 Meq Tabcr PO 02/01/24 12:14 40 meq BID MOSHE Administration NPO Date Last Intake of Fluids: 12/30/23 Last Intake of Fluids Comment: before [place] Date Last Intake of Solids: 12/30/23 Last Intake of Solids Comment: before [place] Past Medical History Medical History Septic shock History of kidney stones Osteoarthritis Chronic lower back pain History of pancreatitis DM type 2 (diabetes mellitus, type 2) History of skin cancer [place] (hard of hearing) HLD (hyperlipidemia) History of myocardial infarction 2016 & 2019 Sleep apnea no device Diverticulosis GERD (gastroesophageal reflux disease) IBS (irritable bowel syndrome) Precancerous lesion rectal CAD (coronary artery disease) Per patient, stenting x 5 in 2017 and restenting of 1 vessel performed in July 2020 Depression CKD (chronic kidney disease), stage IV follows with [facility] Nephrology HIV (human immunodeficiency virus infection) Past Family History Family History Mother Heart disease Past Surgical History Surgical History S/P ureteral stent placement History of removal of ureteral stent History of cystoscopy History of colonoscopy History of cholecystectomy History of cardiac catheterization 2017 - stents 2019 -- restenting x 1. [facility] No pertinent past surgical history Social History Smoking Status: Former smoker tobacco type: cigarettes Do You Dip or Chew Tobacco: No Hx Alcohol Use: Yes Alcohol type: beer, wine and hard liquor alcohol intake frequency: holidays/special occasions only Hx Substance Use: No substance use type: does not use Physical Exam Vital Signs Last Vital Signs Temp 36.3 C L 01/07/24 07:24 Pulse 67 01/07/24 07:24 Resp 18 01/07/24 07:24 BP 172/87 H 01/07/24 07:24 Pulse Ox 97 01/07/24 07:24 O2 Del Method Room Air 01/07/24 07:24 O2 Flow Rate 4 12/31/23 18:00 Testing Laboratory Results 01/07/24 05:55 01/07/24 05:55 APTT 38 Seconds (21-31) H 12/30/23 21:07 Hemoglobin A1c 8.8 % (4.5-5.6) H 12/31/23 00:18 Urine Color Red 01/01/24 14:00 Urine Appearance Turbid (Clear) A 01/01/24 14:00 Urine pH 5.0 (4.5-7.5) 01/01/24 14:00 Ur Specific [place] 1.014 (1.000-1.030) 01/01/24 14:00 Urine Protein 3+ (Negative) H 01/01/24 14:00 Urine Glucose (UA) Trace (Negative) H 01/01/24 14:00 Urine Ketones Trace (Negative) H 01/01/24 14:00 Urine Nitrite Negative (Negative) 01/01/24 14:00 Ur Leukocyte Esterase 2+ (Negative) H 01/01/24 14:00 Urine WBC (Auto) >50 /hpf (0-5) H 01/01/24 14:00 Urine RBC (Auto) >20 /hpf (0-2) H 01/01/24 14:00 U Hyaline Cast (Auto) 0-2 /lpf (0-2) 01/01/24 14:00 U Epithel Cells (Auto) 0-2 /hpf (0-2) 01/01/24 14:00 Urine Bacteria (Auto) 2+ (None Seen) H 01/01/24 14:00 Blood Type A Positive 12/31/23 00:18 Antibody Screen NEGATIVE 12/31/23 00:18 01/01/24 12:56 Aerobic Blood Culture - Final Blood No growth in Aerobic bottle after 5 days. Anaerobic Blood Culture - Final No growth in Anaerobic bottle after 5 days. 01/01/24 12:42 Aerobic Blood Culture - Final Blood No growth in Aerobic bottle after 5 days. Anaerobic Blood Culture - Final No growth in Anaerobic bottle after 5 days. 01/01/24 14:00 Urine Culture - Final Urine,Straight Cath No growth - less than 1,000 colonies/mL. 01/07/24 01/07/24 01/06/24 07:01 03:01 20:00 POC Glucose 110 H 104 H 77 Electrocardiogram Date: 01/02/24 Test Reason : Blood Pressure : / mmHG Vent. Rate : 110 BPM Atrial Rate : 104 BPM P-R Int : 000 ms QRS Dur : 170 ms QT Int : 466 ms P-R-T Axes : 000 -24 118 degrees QTc Int : 630 ms Sinus tachycardia Left bundle branch block Abnormal ECG When compared with ECG of 30-DEC-2023 21:05, No significant change Chest X-Ray Date: 01/01/24 CLINICAL HISTORY: Central venous catheter placement. FINDINGS: An AP, portable, upright chest radiograph is compared to study dated 12/30/2023. Correlation is made with chest CT dated 06/13/2012. A right-sided central venous catheter has been placed. The tip of the catheter projects obliquely over the mediastinum. This does not appear to project over the internal jugular vein. The heart is enlarged. There is mild pulmonary vascular congestion. There is chronic elevation of the left hemidiaphragm with left basilar opacities. No large pleural effusion or pneumothorax is seen. The skeletal structures are osteopenic. The bony thorax is grossly intact. IMPRESSION: 1. A right-sided central venous catheter has been placed. The tip projects obliquely over the mediastinum, and this does not appear to project over the internal jugular vein. Venous positioning is not confirmed. Clinical correlation will be essential. 2. Cardiomegaly with mild pulmonary vascular congestion. 3. Left basilar opacities there is an atelectasis versus a mild pneumonitis. Correlate clinically. Echocardiogram Date: 01/01/24 EF: 65-70 LV Function: Hyperdynam
--- NOTE | 2024-01-07 09:18 | Hospitalist Progress Note ---
Date of Service January 07, 2024 Assessment & Plan (1) YASIR (acute kidney injury): Plan 68 yo M with PMHx significant for chronic systolic heart failure (EF 45%, TTE 2022), CAD status post stent (2017), chronic LBBB, hypertension, hyperlipidemia, HIV on Rx, DM2 insulin requiring, CKD (baseline creatinine 2.7-3.1), chronic anemia (baseline hemoglobin of 13), history colonic polyps/internal hemorrhoids, anal HGSIL as per records, urolithiasis, mood disorder, past tobacco abuse a dmitted with acute renal failure on CKD secondary to diarrheal illness and obstructive uropathy from recurrent kidney stones. Acute renal Failure on CKD Baseline creatinine 2.7-3.1 Pt presented with Cr of 11 Nephrology was consulted Had stent placement by Urology on admission, initially started on IV hydration by Nephrology with bicarb drip No improvement on 12/31 with worsening mental status and hypotension Temp femoral dialysis catheter placement by Child Welfare Counselor on 12/31, s/p dialysis session that day Further dialysis sessions per nephrology, bicarb drip has since been discontinued and started on LR per recs of nephrology Creatinine currently downtrending Appreciate Nephrology recs Discussed with nephro - 01/04 plan to remove femoral access today after dialysis and cont. to watch labs Septic Shock- resolved Pt with tachycardia, leukocytosis, low BP on 12/31 UA suggestive of infection and likely infectious source Noted lesion on left foot, diarrheal illness (see below) Lactate wnl Blood Cx x2 sets NGTD Urine Cx NGTD On Zosyn, continue Was on pressors in the ICU for BP support Resolved and downgraded Hydronephrosis, right Nephrolithiasis Complicated UTI CT abd /pelvis concerning for mild R hydronephrosis and possible nonobstructive nephrolithiasis Urology was consulted -Due to acute renal failure and given the hydronephrosis, Urology recommended ureteral stent placement -s/p ureteral stent placement on 12/30 Initial urine sample not suggestive of infection UA repeated on 12/31, suggestive of infection. Urine Cx NGTD Blood cx x2 NGTD On Zosyn per ICU, continue Appreciate Urology recs ID consulted for further recs in setting of HIV Diarrhea Enteritis Pt with copious diarrhea C diff negative Stool Cx negative CT abd/pelvis noting an enteritis PRN loperamide IV hydration ID consulted for further recs in setting of HIV - recommend GI consults + labs - labs ordered and GI consulted Plan for colonoscopy w/ biopsy today (Saturday 01/06) Anion gap Metabolic acidosis Anion gap elevated at 18 VBG with noted pH 7.10, CO2 22 and HCO3 7 secondary to above Nephrology consulted as above Resolved Acute on chronic anemia secondary to LGIB patient nontoxic history colonic polyps/internal hemorrhoids Hgb between 11-13 Anemia labs (iron, b12, folate all normal) Home aspirin and prasugrel resumed in the ICU Follow H&H, transfuse PRBC if hemoglobin less than 8 and or for symptomatic anemia Continue to monitor Pancytopenia Pt with anemia as above, decreasing platelets to 111 and new leukopenia as well Peripheral smear -combination of recent sepsis, kidney injury and anemia of chronic disease -no evidence of hematolymphoid neoplasia Continue to monitor with AM labs Consider Hematology consult Hyponatremia Sodium of 132 on admission Currently wnl Foot Injury, Left XRAY foot ordered -no acute abn Podiatry consulted, appreciate recs noted "subungual hematoma. This toenail and underlying hematoma are stable, with no current indication to remove the toenail on this hospitalization. The nail is intact distally with blood underlying the proximal nail plate. If this nail loosens or if evidence of infection develop, the nail can be removed at any point in the future. This would be a simple nail avulsion performed in the office. Otherwise, the nail will continue to grow out, though may remain thickened and dystrophic permanently." Intertrigo Pt with noted groin rash Desenex powder Hypothermia-Resolved Hypothyroidism Pt with noted hypothermia overnight [place] TSH 7.558, free T4 0.51 Started on levothyroxine 25mcg PCP followup chronic systolic heart failure patient on the dry side Echo could not be completed appropriately as pt in pain Read as characteristic for septic picture Monitor volume status hx CAD status post stent chronic LBBB Stable hyperlipidemia on statin Rx, continue HIV on Rx stable disease as per [facility] ID note from last month DMII insulin requiring suboptimal control as of hemoglobin A1c of 8.8 Basal/bolus insulin regimen while hospitalized mood disorder stable Diet: clear liquid diet, advance as tolerated DVT prophylaxis. SCDs Re: GI bleed Dispo: PT/OT ordered Admission and Anticipated Discharge Date Admission Date: December 31, 2023 Subjective Pt seen in follow up of YASIR on CKD (now on dialysis), diarrhea - seen by ID and GI - plan for colonoscopy today Currently laying in bed in NAD Femoral access for dialysis was removed after his last session Pt reports feeling well overall, diarrhea also seemed improved. he is on prep for colonoscopy now - planned for later today Denies abdominal pain. Denies fever, chills, chest pain or shortness of breath Review of Systems Review of Systems: All systems reviewed & are unremarkable except as noted in Subjective Physical Exam Physical Exam: General: WD/WN M in NAD HEENT: NC/AT CV: RRR Resp: Breath sounds clear bilaterally, no increased effort of breathing. Abdomen: Soft, nontender Extremities: No edema in lower extremities bilaterally. Moves extremities Skin: warm, dry Psych: Appropriate mood and affect Results & Data Results & Data Vital Signs (Past 12 Hours) Vital Signs Temp Pulse Pulse Resp BP Pulse Ox O2 Del Method 01/07/24 07:24 36.3 C L 67 18 172/87 H 97 Room Air 01/07/24 07:12 75 01/07/24 03:00 36.5 C 60 16 137/88 96 Room Air 01/06/24 23:00 36.6 C 69 16 124/69 94 Room Air 01/06/24 22:10 85 Laboratory Results 01/07/24 01/07/24 01/07/24 Range/Units 07:01 05:55 03:01 WBC 5.99 (4.8-10.8) K/ul RBC 3.58 L (4.70-6.10) M/uL Hgb 9.6 L (14.0-18.0) g/dl Hct 30.5 L (42.0-52.0) % MCV 85.2 (80.0-100.0) fL MCH 26.8 (25.0-34.0) pg MCHC 31.5 L (32.0-36.0) g/dL RDW Std Deviation 48.4 H (36.4-46.3) fL RDW Coeff of Meera 15.8 H (11.5-14.5) % Plt Count 130 (130-400) K/uL MPV 9.1 L (9.4-12.4) fL Sodium 141 (136-145) mmol/L Potassium 4.7 (3.5-5.1) mmol/L Chloride 111 H (98-107) mmol/L Carbon Dioxide 22 (21-32) mmol/L Anion Gap 8 (3-11) BUN 28 H (6-23) mg/dl Creatinine 4.87 H* D (0.6-1.4) mg/dl Est Cr Clr Drug Dosing 15.5 ml/min Est GFR ( Amer) 13.0 ml/min Est GFR (Non-Af Amer) 11.2 ml/min BUN/Creatinine Ratio 5.7 L (10-20) Glucose 113 H (70-99(Fasting)) mg/dl POC Glucose 110 H 104 H (70-99) mg/dl Calcium 8.3 L (8.6-10.3) mg/dl Phosphorus 3.3 (2.5-4.9) mg/dl Magnesium 1.8 (1.7-2.4) mg/dl Total Bilirubin 0.5 (0.2-1.0) mg/dl AST 70 H (13-39) U/L ALT 32 (7-52) U/L Alkaline Phosphatase 78 (34-104) U/L Total Protein 4.9 L (6.0-8.3) gm/dl Albumin 2.8 L (3.4-5.0) gm/dl Globulin 2.1 L (2.5-4.0) gm/dl Albumin/Globulin Ratio 1.3 (0.9-2) Absolute Lymphocytes % CD4 Cells Absolute CD4 Count C.trachomatis RNA HIV-1 RNA copies/mL HIV-1 RNA logcopies/mL N.gonorrhoeae RNA 01/06/24 01/06/24 01/06/24 Range/Units 20:00 16:17 15:15 WBC (4.8-10.8) K/ul RBC (4.70-6.10) M/uL Hgb (14.0-18.0) g/dl Hct (42.0-52.0) % MCV (80.0-100.0) fL MCH (25.0-34.0) pg MCHC (32.0-36.0) g/dL RDW Std Deviation (36.4-46.3) fL RDW Coeff of Meera (11.5-14.5) % Plt Count (130-400) K/uL MPV (9.4-12.4) fL Sodium (136-145) mmol/L Potassium (3.5-5.1) mmol/L Chloride (98-107) mmol/L Carbon Dioxide (21-32) mmol/L Anion Gap (3-11) BUN (6-23) mg/dl Creatinine (0.6-1.4) mg/dl Est Cr Clr Drug Dosing ml/min Est GFR ( Amer) ml/min Est GFR (Non-Af Amer) ml/min BUN/Creatinine Ratio (10-20) Glucose (70-99(Fasting)) mg/dl POC Glucose 77 103 H (70-99) mg/dl Calcium (8.6-10.3) mg/dl Phosphorus (2.5-4.9) mg/dl Magnesium (1.7-2.4) mg/dl Total Bilirubin (0.2-1.0) mg/dl AST (13-39) U/L ALT (7-52) U/L Alkaline Phosphatase (34-104) U/L Total Protein (6.0-8.3) gm/dl Albumin (3.4-5.0) gm/dl Globulin (2.5-4.0) gm/dl Albumin/Globulin Ratio (0.9-2) Absolute Lymphocytes % CD4 Cells Absolute CD4 Count C.trachomatis RNA Pending HIV-1 RNA copies/mL HIV-1 RNA logcopies/mL N.gonorrhoeae RNA Pending 01/06/24 01/06/24 Range/Units 11:20 09:38 WBC (4.8-10.8) K/ul RBC (4.70-6.10) M/uL Hgb (14.0-18.0) g/dl Hct (42.0-52.0) % MCV (80.0-100.0) fL MCH (25.0-34.0) pg MCHC (32.0-36.0) g/dL RDW Std Deviation (36.4-46.3) fL RDW Coeff of Meera (11.5-14.5) % Plt Count (130-400) K/uL MPV (9.4-12.4) fL Sodium (136-145) mmol/L Potassium (3.5-5.1) mmol/L Chloride (98-107) mmol/L Carbon Dioxide (21-32) mmol/L Anion Gap (3-11) BUN (6-23) mg/dl Creatinine (0.6-1.4) mg/dl Est Cr Clr Drug Dosing ml/min Est GFR ( Amer) ml/min Est GFR (Non-Af Amer) ml/min BUN/Creatinine Ratio (10-20) Glucose (70-99(Fasting)) mg/dl POC Glucose 159 H (70-99) mg/dl Calcium (8.6-10.3) mg/dl Phosphorus (2.5-4.9) mg/dl Magnesium (1.7-2.4) mg/dl Total Bilirubin (0.2-1.0) mg/dl AST (13-39) U/L ALT (7-52) U/L Alkaline Phosphatase (34-104) U/L Total Protein (6.0-8.3) gm/dl Albumin (3.4-5.0) gm/dl Globulin (2.5-4.0) gm/dl Albumin/Globulin Ratio (0.9-2) Absolute Lymphocytes Pending % CD4 Cells Pending Absolute CD4 Count Pending C.trachomatis RNA HIV-1 RNA copies/mL Pending HIV-1 RNA logcopies/mL Pending N.gonorrhoeae RNA Medications Administered Current Inpatient Medications Acetaminophen (Acetaminophen 325 Mg Tab) 650 mg PO QID PRN PRN Reason: pain/fever Stop: 01/30/24 03:01 Last Admin: 01/05/24 08:58 Dose: 650 mg Aspirin (Aspirin 81 Mg Ectab) 81 mg PO [facility] Stop: 02/01/24 10:14 Last Admin: 01/07/24 09:17 Dose: 81 mg Atorvastatin Calcium (Atorvastatin 40 Mg Tab) 40 mg PO [facility] Stop: 01/30/24 08:59 Last Admin: 01/07/24 09:18 Dose: 40 mg Calcitriol (Calcitriol 0.25 Mcg Capsule) 0.5 mcg PO [facility] Stop: 01/30/24 08:59 Last Admin: 01/07/24 09:18 Dose: 0.5 mcg Dextrose (Dextrose 50% 50 Ml Syringe) 25 - 50 ml IV UD PRN; Protocol PRN Reason: Hypoglycemia Protocol Stop: 01/30/24 04:24 Fluoxetine HCl (Fluoxetine Hcl 20 Mg Cap) 20 mg PO [facility] Stop: 01/30/24 08:59 Last Admin: 01/07/24 09:18 Dose: 20 mg Glucagon (Glucagon For Inj 1 Mg Vial) 1 mg SQ UD PRN; Protocol PRN Reason: Hypoglycemia Protocol Stop: 01/30/24 04:24 Glucose (Glucose 10 Tab/Tube) 4 - 8 tab PO UD PRN; Protocol PRN Reason: Hypoglycemia Treatment Stop: 01/30/24 04:24 Glucose (Glucose 40% Gel 15 Gm Tube) 15 - 30 gm PO UD PRN; Protocol PRN Reason: Hypoglycemia Protocol Stop: 01/30/24 04:24 Promethazine HCl 6.25 mg/ (Sodium Chloride) 50.25 mls @ 201 mls/hr IV Q6H PRN PRN Reason: Nausea And Vomiting Stop: 01/30/24 03:01 Last Infusion: 01/01/24 22:11 Dose: Infused Pantoprazole Sodium 40 mg/ (Syringe) 10 mls @ 5 mls/min IV DAILY@1100 [facility] Stop: 02/01/24 10:59 Last Admin: 01/06/24 12:18 Dose: 5 mls/min Piperacillin Sod/Tazobactam (Sod 4.5 gm/ Dextrose) 100 mls @ 25 mls/hr IV Q12 [facility]; Protocol Stop: 01/11/24 20:59 Last Infusion: 01/07/24 01:55 Dose: Infused Sodium Chloride (Nss) 500 mls @ 15 mls/hr IV .Q24H [facility] Stop: 02/06/24 07:29 Insulin Aspart (Insulin Aspart Per Unit Charge) 0 units SC ACHS [facility] Stop: 01/30/24 04:24 Last Admin: 01/07/24 07:07 Dose: Not Given Insulin Glargine (Lantus Per Unit Charge) 5 units SQ DAILY [facility] Stop: 01/30/24 08:59 Last Admin: 01/07/24 09:17 Dose: 5 units Levothyroxine Sodium ([facility]othyroxine Sodium 25 Mcg Tablet) [facility]: 01/31/24 06:29 Last Admin: 01/07/24 06:34 Dose: 25 mcg Loperamide HCl (Loperamide Hcl 2 Mg Cap) 2 mg PO Q6H PRN PRN Reason: Diarrhea Stop: 01/30/24 19:29 Last Admin: 01/03/24 21:29 Dose: 2 mg Metoprolol Succinate (Metoprolol Succ 25mg Ext Rel Tab) 25 mg PO QAM [facility] Stop: 01/30/24 08:59 Last Admin: 01/07/24 09:18 Dose: 25 mg Miconazole Nitrate (Miconazole Nitrate Powder 85 Gm) 1 appln EXT TID [facility] Stop: 01/30/24 20:59 Last Admin: 01/07/24 09:18 Dose: 1 appln Miscellaneous (Carbohydrates For Hypoglycemia ) 15 - 30 gm PO UD PRN PRN Reason: Hypoglycemia Protocol Stop: 01/30/24 04:24 Multivitamins (Multivitamin Tab) 1 tab PO QAM [facility] Stop: 01/30/24 08:59 Last Admin: 01/07/24 09:18 Dose: 1 tab Nifedipine (Nifedipine Extended Rel 30 Mg Tabcr) 30 mg PO QAM [facility] Stop: 02/05/24 13:59 Last Admin: 01/06/24 15:16 Dose: 30 mg Juluca 50mg /25mg Non-Formulary Patient's Own Med 1 each PO DAILY [facility] Stop: 02/05/24 08:59 Last Admin: 01/07/24 09:19 Dose: 1 tab Potassium Chloride (Potassium Chloride Crtab 20 Meq Tabcr) 40 meq PO BID [facility] Stop: 02/01/24 12:14 Last Admin: 01/06/24 21:01 Dose: 40 meq
--- NOTE | 2024-01-07 09:18 | History & Physical Bridge Note ---
Date of Service January 07, 2024 History & Physical Bridge Note I have examined the patient, reviewed the History & Physical and in the interval since the performance of the History & Physical I have noted the following changes of clinical significance: no changes noted Patient resting comfortably in bed. Per nursing he has completed a bowel prep with sufficient results (clear liquid stools). Keep NPO & proceed with colonoscopy today. Supervising Physician Co-Signing Physician Notes Agree with ZAC Marte as above Abd: Soft, NT, ND, +BS Continue current therapy and supportive care Proceed with colonoscopy today.
--- NOTE | 2024-01-07 11:15 | Nephrology Progress Note ---
Date of Service January 07, 2024 Assessment & Plan Admission and Anticipated Discharge Date Admission Date: December 31, 2023 Subjective Assessment & Plan (1) YASIR (acute kidney injury): patient baseline creatinine is about 2.7-3.2 and has had CKD 4 for many years. etiology of current YASIR is severe volume depletion which then caused ATN---from diarrhea for the last 3 weeks but can not rule out significant obstructive uropathy component. Given that patient already had advanced CKD with a baseline creatinine of around 3 there is no guarantee that the kidney function will actually improve. severe prolonged volume depletion with diarrhea can cause ATN. Recommend Will try very hard for no dialysis over the weekend. he has already had 2 temp HD cath. if he is still in need of [employer] on wednesday--seems like he may, would place Tunnelled HD cath. Creat did go up a bit from yesterday to today. Will also Ask vascular to keep him in the list for HD cath for wednesday. can always cancel if he makes recovery. NPO after midnight Wednesday ID note regarding current HIV rx reviewed. Not enough data to say definite about Oriana with CKD/YASIR. he was taking it already in CKD 4 with good success so continue for now. CD 4 cells pending. Colonoscopy being done today (2) CKD (chronic kidney disease) stage 4, GFR 15-29 ml/min: baseline CKD 4 with a creatinine anywhere from 2.7-3.2. In fact even when he was in [place] he was closely followed at [facility]. he had ESRD options class while there and in the past has indicated he will do peritoneal dialysis if such need arise. But now with ongoing Chronic Severe Diarrhea may not be feasible unless Diarrhea is totally controlled/Cured. He also claims he is on transplant list at [facility]. (3) Hydronephrosis concurrent with and due to calculi of kidney and ureter: discuss with Urology. S/p rt ureteric stent but no improvement in renal function. S--getting Colonoscopy today for Chronic Diarrhea. as per RN doing overall fine. BP somewhat high now. making lots of urine and UO rising every day and was 18619 ml yesterday !!!. no HD catheter currently. o---physical examination elderly white male . no respiratory distress. mucous membrane is dry neck is supple no JVD chest bilateral clear to auscultation CVS S1 and S2 regular no murmur heard abdomen is diffusely mildly tender extremities shows no edema at all skin no rash. Results & Data Vital Signs (Past 12 Hours) Vital Signs Temp Pulse Pulse Resp BP Pulse Ox O2 Del Method 01/07/24 10:53 37.1 C 61 16 172/87 H 96 Room Air 01/07/24 07:24 36.3 C L 67 18 172/87 H 97 Room Air 01/07/24 07:12 75 01/07/24 03:00 36.5 C 60 16 137/88 96 Room Air
[2024-01-07 11:28] LABS: GC (Neis gonorrhoeae) RNA Not Detected (NotDetected)
--- NOTE | 2024-01-07 13:16 | GI REPORT ---
Patient Name: Tad Silvestre Procedure Date: 01/07/2024 12:15 PM Date of : 1955 Admit Type: Inpatient Age: 68 Gender: Male Attending MD: Gianfranco Khalil DO, Procedure: Colonoscopy Providers: Gianfranco Khalil DO Referring MD: Ed Latham MD Indications: Chronic diarrhea Medicines: Monitored Anesthesia Care Complications: No immediate complications. Estimated Blood Loss: Estimated blood loss: none. Procedure: Pre-Anesthesia Assessment: - Prior to the procedure, a History and Physical was performed, and patient medications and allergies were reviewed. The patient's tolerance of previous anesthesia was also reviewed. The risks and benefits of the procedure and the sedation options and risks were discussed with the patient. All questions were answered, and informed consent was obtained. Prior Anticoagulants: The patient has taken no anticoagulant or antiplatelet agents except for aspirin. ASA Grade Assessment: III - A patient with severe systemic disease. After reviewing the risks and benefits, the patient was deemed in satisfactory condition to undergo the procedure. After I obtained informed consent, the scope was passed under direct vision. Throughout the procedure, the patient's blood pressure, pulse, and oxygen saturations were monitored continuously. The Colonoscope was introduced through the anus and advanced to the terminal ileum. The colonoscopy was performed without difficulty. The patient tolerated the procedure well. The quality of the bowel preparation was good. The terminal ileum, ileocecal valve, appendiceal orifice, and rectum were photographed. Findings: The perianal and digital rectal examinations were normal. Three sessile polyps were found in the transverse colon and cecum. The polyps were 4 to 11 mm in size. These polyps were removed with a hot snare. Resection and retrieval were complete. Multiple small-mouthed diverticula were found in the sigmoid colon. Non-bleeding internal hemorrhoids were found during retroflexion. The hemorrhoids were small. Several random biopsies were obtained with cold forceps for histology in the entire colon. Fluid aspiration for bacterial cultures, Clostridium difficile and ova and parasites was performed in the entire colon. Impression: - Three 4 to 11 mm polyps in the transverse colon and in the cecum, removed with a hot snare. Resected and retrieved. - Diverticulosis in the sigmoid colon. - Non-bleeding internal hemorrhoids. - Several random biopsies were obtained in the entire colon. - Fluid aspiration was performed. Recommendation: - [facility]. - Resume previous diet. - Continue present medications. - Repeat colonoscopy for surveillance based on pathology results. Gianfranco Khalil, DO 01/07/2024 1:16:30 PM This report has been signed electronically. Note Initiated On: 01/07/2024 12:15 PM Number of Addenda: 0 I attest to the content of the Intraoperative Record and orders documented therein, exceptions below {[id number]}
--- NOTE | 2024-01-07 14:01 | Anesthesiology Progress Note ---
Date of Service January 07, 2024 Anesthesia Post Procedure Vital Signs Vital Signs: Temp Pulse Pulse Pulse Resp BP BP 01/07/24 13:39 73 16 141/88 H 01/07/24 13:22 70 16 123/80 01/07/24 13:07 80 14 117/73 01/07/24 10:53 37.1 C 61 16 172/87 H 01/07/24 07:24 36.3 C L 67 18 172/87 H 01/07/24 07:12 75 01/07/24 03:00 36.5 C 60 16 137/88 01/06/24 23:00 36.6 C 69 16 124/69 01/06/24 22:10 85 01/06/24 19:48 36.4 C L 79 22 148/78 H 01/06/24 16:27 36.5 C 60 14 150/76 H Pulse Ox O2 Del Method 01/07/24 13:39 99 Room Air 01/07/24 13:22 100 Room Air 01/07/24 13:07 92 Room Air 01/07/24 10:53 96 Room Air 01/07/24 07:24 97 Room Air 01/07/24 07:12 01/07/24 03:00 96 Room Air 01/06/24 23:00 94 Room Air 01/06/24 22:10 01/06/24 19:48 96 Room Air 01/06/24 16:27 98 Room Air Pain Intensity Generalized: Pain Intensity: 7 Back: Pain Intensity: 5 Transfer of Care Handoff Completed per policy Notes Mental Status: alert / awake / arousable and participated in evaluation Patient Amnestic to Procedure: Yes Nausea / Vomiting: adequately controlled Pain: adequately controlled Airway Patency, RR, SpO2: stable & adequate BP & HR: stable & adequate Hydration State: stable & adequate Anesthetic Complications: no major complications apparent
[2024-01-07] MEDS: fentaNYL citrate PF 100 MCG/2 ML VIAL ONE (14:21)
[2024-01-07] MEDS: PROPOFOL IV EMULSION 10 MG/ML 20 ML VIAL IV ONE ×2 (14:21)
[2024-01-07] MEDS: MIDAZOLAM HCL 1 MG/ML 2ML VIAL ONE (14:21)
[2024-01-07] MEDS: SODIUM CHLORIDE 0.9% 500 ML IV SCH (14:21)
--- NOTE | 2024-01-08 07:14 | Hospitalist Progress Note ---
Date of Service January 08, 2024 Assessment & Plan (1) YASIR (acute kidney injury): Plan 68 yo M with PMHx significant for chronic systolic heart failure (EF 45%, TTE 2022), CAD status post stent (2017), chronic LBBB, hypertension, hyperlipidemia, HIV on Rx, DM2 insulin requiring, CKD (baseline creatinine 2.7-3.1), chronic anemia (baseline hemoglobin of 13), history colonic polyps/internal hemorrhoids, anal HGSIL as per records, urolithiasis, mood disorder, past tobacco abuse a dmitted with acute renal failure on CKD secondary to diarrheal illness and obstructive uropathy from recurrent kidney stones. Acute renal Failure on CKD Baseline creatinine 2.7-3.1 Pt presented with Cr of 11 Nephrology was consulted Had stent placement by Urology on admission, initially started on IV hydration by Nephrology with bicarb drip No improvement on 12/31 with worsening mental status and hypotension Temp femoral dialysis catheter placement by [employer] on 12/31, s/p dialysis session that day Further dialysis sessions per nephrology, bicarb drip has since been discontinued and started on LR per recs of nephrology Creatinine currently downtrending Appreciate Nephrology recs Discussed with nephro - 01/04 plan to remove femoral access today after dialysis and cont. to watch labs Discussed w/ nephrology, femoral catheter removed, NPO after MN Wednesday night, in case need for tunneled line on Wednesday - vasc. surgery aware. Septic Shock- resolved Pt with tachycardia, leukocytosis, low BP on 12/31 UA suggestive of infection and likely infectious source Noted lesion on left foot, diarrheal illness (see below) Lactate wnl Blood Cx x2 sets NGTD Urine Cx NGTD On Zosyn, continue Was on pressors in the ICU for BP support Resolved and downgraded Hydronephrosis, right Nephrolithiasis Complicated UTI CT abd /pelvis concerning for mild R hydronephrosis and possible nonobstructive nephrolithiasis Urology was consulted -Due to acute renal failure and given the hydronephrosis, Urology recommended ureteral stent placement -s/p ureteral stent placement on 12/30 Initial urine sample not suggestive of infection UA repeated on 12/31, suggestive of infection. Urine Cx NGTD Blood cx x2 NGTD On Zosyn per ICU, continue Appreciate Urology recs ID consulted for further recs in setting of HIV Diarrhea Enteritis Pt with copious diarrhea C diff negative Stool Cx negative CT abd/pelvis noting an enteritis PRN loperamide IV hydration ID consulted for further recs in setting of HIV - recommend GI consults + labs - labs ordered and GI consulted Colonoscopy w/ biopsy (Saturday 01/06) Impression: - Three 4 to 11 mm polyps in the transverse colon and in the cecum, removed with a hot snare. Resected and retrieved. - Diverticulosis in the sigmoid colon. - Non-bleeding internal hemorrhoids. - Several random biopsies were obtained in the entire colon. - Fluid aspiration was performed. Recommendation: - [facility]. - Resume previous diet. - Continue present medications. - Repeat colonoscopy for surveillance based on pathology results. Anion gap Metabolic acidosis Anion gap elevated at 18 VBG with noted pH 7.10, CO2 22 and HCO3 7 secondary to above Nephrology consulted as above Resolved Acute on chronic anemia secondary to LGIB patient nontoxic history colonic polyps/internal hemorrhoids Hgb between 11-13 Anemia labs (iron, b12, folate all normal) Home aspirin and prasugrel resumed in the ICU Follow H&H, transfuse PRBC if hemoglobin less than 8 and or for symptomatic anemia Continue to monitor Pancytopenia Pt with anemia as above, decreasing platelets to 111 and new leukopenia as well Peripheral smear -combination of recent sepsis, kidney injury and anemia of chronic disease -no evidence of hematolymphoid neoplasia Continue to monitor with AM labs Consider Hematology consult Hyponatremia Sodium of 132 on admission Currently wnl Foot Injury, Left XRAY foot ordered -no acute abn Podiatry consulted, appreciate recs noted "subungual hematoma. This toenail and underlying hematoma are stable, with no current indication to remove the toenail on this hospitalization. The nail is intact distally with blood underlying the proximal nail plate. If this nail loosens or if evidence of infection develop, the nail can be removed at any point in the future. This would be a simple nail avulsion performed in the office. Otherwise, the nail will continue to grow out, though may remain thickened and dystrophic permanently." Intertrigo Pt with noted groin rash Desenex powder Hypothermia-Resolved Hypothyroidism Pt with noted hypothermia overnight Bearhugger TSH 7.558, free T4 0.51 Started on levothyroxine 25mcg PCP followup chronic systolic heart failure patient on the dry side Echo could not be completed appropriately as pt in pain Read as characteristic for septic picture Monitor volume status hx CAD status post stent chronic LBBB Stable hyperlipidemia on statin Rx, continue HIV on Rx stable disease as per C ID note from last month DMII insulin requiring suboptimal control as of hemoglobin A1c of 8.8 Basal/bolus insulin regimen while hospitalized mood disorder stable Diet: clear liquid diet, advance as tolerated DVT prophylaxis. SCDs Re: GI bleed Dispo: PT/OT ordered Admission and Anticipated Discharge Date Admission Date: December 31, 2023 Subjective Pt seen in follow up of YASIR on CKD (now on dialysis), diarrhea - seen by ID and GI - s/p colonoscopy yesterday Currently sitting up in chair in NAD Femoral access for dialysis was removed after his last session Pt reports feeling well overall, diarrhea also seemed improved. denies any blood in stool but has blood tinged urine in Rodriguez bag Denies abdominal pain. Denies fever, chills, chest pain or shortness of breath Review of Systems Review of Systems: All systems reviewed & are unremarkable except as noted in Subjective Physical Exam Physical Exam: General: WD/WN M in NAD HEENT: NC/AT CV: RRR Resp: Breath sounds clear bilaterally, no increased effort of breathing. Abdomen: Soft, nontender Extremities: No edema in lower extremities bilaterally. Moves extremities Skin: warm, dry Psych: Appropriate mood and affect Results & Data Results & Data Vital Signs (Past 12 Hours) Vital Signs Temp Pulse Pulse Resp BP BP Pulse Ox 01/08/24 03:32 36.6 C 70 18 158/80 H 97 01/07/24 23:30 36.7 C 72 17 162/83 H 95 01/07/24 22:09 87 01/07/24 20:45 01/07/24 19:20 36.7 C 83 17 152/86 H 97 O2 Del Method 01/08/24 03:32 Room Air 01/07/24 23:30 Room Air 01/07/24 22:09 01/07/24 20:45 Room Air 01/07/24 19:20 Room Air Laboratory Results 01/08/24 01/08/24 01/08/24 Range/Units 16:13 11:14 07:09 WBC 7.26 (4.8-10.8) K/ul RBC 3.81 L (4.70-6.10) M/uL Hgb 10.5 L (14.0-18.0) g/dl Hct 32.7 L (42.0-52.0) % MCV 85.8 (80.0-100.0) fL MCH 27.6 (25.0-34.0) pg MCHC 32.1 (32.0-36.0) g/dL RDW Std Deviation 49.1 H (36.4-46.3) fL RDW Coeff of Meera 15.6 H (11.5-14.5) % Plt Count 162 (130-400) K/uL MPV 9.4 (9.4-12.4) fL PT 13.2 H (9.0-12.0) Seconds INR 1.2 H (0.9-1.1) Sodium 140 (136-145) mmol/L Potassium 5.1 (3.5-5.1) mmol/L Chloride 109 H (98-107) mmol/L Carbon Dioxide 23 (21-32) mmol/L Anion Gap 8 (3-11) BUN 32 H (6-23) mg/dl Creatinine 5.29 H* D (0.6-1.4) mg/dl Est Cr Clr Drug Dosing 14.3 ml/min Est GFR ( Amer) 11.7 ml/min Est GFR (Non-Af Amer) 10.1 ml/min BUN/Creatinine Ratio 6.0 L (10-20) Glucose 134 H (70-99(Fasting)) mg/dl POC Glucose 110 H 296 H (70-99) mg/dl Calcium 9.2 (8.6-10.3) mg/dl Phosphorus 3.8 (2.5-4.9) mg/dl Magnesium 1.8 (1.7-2.4) mg/dl HIV-1 RNA copies/mL (NOT DETECTED) copies/mL HIV-1 RNA logcopies/mL (NOT DETECTED) 01/08/24 01/07/24 01/06/24 Range/Units 07:08 20:13 09:38 WBC (4.8-10.8) K/ul RBC (4.70-6.10) M/uL Hgb (14.0-18.0) g/dl Hct (42.0-52.0) % MCV (80.0-100.0) fL MCH (25.0-34.0) pg MCHC (32.0-36.0) g/dL RDW Std Deviation (36.4-46.3) fL RDW Coeff of Meera (11.5-14.5) % Plt Count (130-400) K/uL MPV (9.4-12.4) fL PT (9.0-12.0) Seconds INR (0.9-1.1) Sodium (136-145) mmol/L Potassium (3.5-5.1) mmol/L Chloride (98-107) mmol/L Carbon Dioxide (21-32) mmol/L Anion Gap (3-11) BUN (6-23) mg/dl Creatinine (0.6-1.4) mg/dl Est Cr Clr Drug Dosing ml/min Est GFR ( Amer) ml/min Est GFR (Non-Af Amer) ml/min BUN/Creatinine Ratio (10-20) Glucose (70-99(Fasting)) mg/dl POC Glucose 130 H 183 H (70-99) mg/dl Calcium (8.6-10.3) mg/dl Phosphorus (2.5-4.9) mg/dl Magnesium (1.7-2.4) mg/dl HIV-1 RNA copies/mL 25 H (NOT DETECTED) copies/mL HIV-1 RNA logcopies/mL 1.40 H (NOT DETECTED) Medications Administered Current Inpatient Medications Acetaminophen (Acetaminophen 325 Mg Tab) 650 mg PO QID PRN PRN Reason: pain/fever Stop: 01/30/24 03:01 Last Admin: 01/05/24 08:58 Dose: 650 mg Aspirin (Aspirin 81 Mg Ectab) 81 mg PO [facility] Stop: 02/01/24 10:14 Last Admin: 01/07/24 09:17 Dose: 81 mg Atorvastatin Calcium (Atorvastatin 40 Mg Tab) 40 mg PO [facility] Stop: 01/30/24 08:59 Last Admin: 01/07/24 09:18 Dose: 40 mg Calcitriol (Calcitriol 0.25 Mcg Capsule) 0.5 mcg PO [facility] Stop: 01/30/24 08:59 Last Admin: 01/07/24 09:18 Dose: 0.5 mcg Dextrose (Dextrose 50% 50 Ml Syringe) 25 - 50 ml IV UD PRN; Protocol PRN Reason: Hypoglycemia Protocol Stop: 01/30/24 04:24 Fluoxetine HCl (Fluoxetine Hcl 20 Mg Cap) 20 mg PO QAM [facility] Stop: 01/30/24 08:59 Last Admin: 01/07/24 09:18 Dose: 20 mg Glucagon (Glucagon For Inj 1 Mg Vial) 1 mg SQ UD PRN; Protocol PRN Reason: Hypoglycemia Protocol Stop: 01/30/24 04:24 Glucose (Glucose 10 Tab/Tube) 4 - 8 tab PO UD PRN; Protocol PRN Reason: Hypoglycemia Treatment Stop: 01/30/24 04:24 Glucose (Glucose 40% Gel 15 Gm Tube) 15 - 30 gm PO UD PRN; Protocol PRN Reason: Hypoglycemia Protocol Stop: 01/30/24 04:24 Promethazine HCl 6.25 mg/ (Sodium Chloride) 50.25 mls @ 201 mls/hr IV Q6H PRN PRN Reason: Nausea And Vomiting Stop: 01/30/24 03:01 Last Infusion: 01/01/24 22:11 Dose: Infused Pantoprazole Sodium 40 mg/ (Syringe) 10 mls @ 5 mls/min IV DAILY@1100 [facility] Stop: 02/01/24 10:59 Last Admin: 01/07/24 10:25 Dose: 5 mls/min Piperacillin Sod/Tazobactam (Sod 4.5 gm/ Dextrose) 100 mls @ 25 mls/hr IV Q12 [facility]; Protocol Stop: 01/11/24 20:59 Last Infusion: 01/08/24 00:40 Dose: Infused Sodium Chloride (Nss) 500 mls @ 15 mls/hr IV .Q24H [facility] Stop: 02/06/24 07:29 Last Admin: 01/07/24 14:21 Dose: Not Given Insulin Aspart (Insulin Aspart Per Unit Charge) 0 units SC ACHS [facility] Stop: 01/30/24 04:24 Last Admin: 01/07/24 21:15 Dose: 2 units Insulin Glargine (Lantus Per Unit Charge) 5 units SQ DAILY [facility] Stop: 01/30/24 08:59 Last Admin: 01/07/24 09:17 Dose: 5 units Levothyroxine Sodium (Levothyroxine Sodium 25 Mcg Tablet) 25 mcg PO DAILYBB [facility] Stop: 01/31/24 06:29 Last Admin: 01/08/24 05:46 Dose: 25 mcg Loperamide HCl (Loperamide Hcl 2 Mg Cap) 2 mg PO Q6H PRN PRN Reason: Diarrhea Stop: 01/30/24 19:29 Last Admin: 01/03/24 21:29 Dose: 2 mg Metoprolol Succinate (Metoprolol Succ 25mg Ext Rel Tab) 25 mg PO QAM [facility] Stop: 01/30/24 08:59 Last Admin: 01/07/24 09:18 Dose: 25 mg Miconazole Nitrate (Miconazole Nitrate Powder 85 Gm) 1 appln EXT TID [facility] Stop: 01/30/24 20:59 Last Admin: 01/07/24 20:35 Dose: Not Given Miscellaneous (Carbohydrates For Hypoglycemia ) 15 - 30 gm PO UD PRN PRN Reason: Hypoglycemia Protocol Stop: 01/30/24 04:24 Multivitamins (Multivitamin Tab) 1 tab PO QAM [facility] Stop: 01/30/24 08:59 Last Admin: 01/07/24 09:18 Dose: 1 tab Nifedipine (Nifedipine Extended Rel 30 Mg Tabcr) [facility] Stop: 02/05/24 13:59 Last Admin: 01/07/24 10:25 Dose: 30 mg Juluca 50mg /25mg Non-Formulary Patient's Own Med 1 each PO DAILY [facility] Stop: 02/05/24 08:59 Last Admin: 01/07/24 09:19 Dose: 1 tab Potassium Chloride (Potassium Chloride Crtab 20 Meq Tabcr) 20 meq PO DAILY [facility] Stop: 02/07/24 08:59
[2024-01-08 08:05] LABS: Hematocrit (blood only) 32.7 % (42.0-52.0); Hemoglobin 10.5 g/dl (14.0-18.0); Mean Corpuscular Hemoglobin 27.6 pg (25.0-34.0); Mean Corpuscular Hgb Conc 32.1 g/dL (32.0-36.0); Mean Corpuscular Volume 85.8 fL (80.0-100.0); Mean Platelet Volume 9.4 fL (9.4-12.4); Platelet Count 162 K/uL (130-400); RDW Coefficient of Variation 15.6 % (11.5-14.5); RDW Standard Deviation 49.1 fL (36.4-46.3); Red Blood Count 3.81 M/uL (4.70-6.10); White Blood Count 7.26 K/ul (4.8-10.8)
[2024-01-08 08:22] LABS: Calcium 9.2 mg/dl (8.6-10.3); Creatinine Clr Calc Pharmacy 14.3 ml/min; Est GFR (African American) 11.7 ml/min; Est GFR (Non-African American) 10.1 ml/min; Magnesium 1.8 mg/dl (1.7-2.4); Phosphorus 3.8 mg/dl (2.5-4.9); Potassium 5.1 mmol/L (3.5-5.1)
[2024-01-08 08:28] LABS: INR 1.2 (0.9-1.1); Prothrombin Time 13.2 Seconds (9.0-12.0)
[2024-01-08] MEDS: POTASSIUM CHLORIDE CRTAB 20 MEQ TABCR PO SCH (08:58)
--- NOTE | 2024-01-08 10:54 | Nephrology Progress Note ---
Date of Service January 08, 2024 Assessment & Plan (1) YASIR (acute kidney injury): Plan: patient baseline creatinine is about 2.7-3.2 and has had CKD 4 for many years. etiology of current YASIR is severe volume depletion from worsened chronic diarrhea for 3 weeks [employer] . doubt significant obstructive uropathy component, though he is s/p R ureteric stent. but we will still continue with aggressive fluid and electrolyte resuscitation. admission creatinine is 11. This is associated with very low serum bicarb of 7 but despite that potassium still on the low end of normal. such picture can happen with severe diarrhea with significant GI loss of bicarb and potassium. he had HD 12/31 and 01/01, 01/02; 01/04 >>currently no dialysis catheter Increased urine output today may be a sign of renal recovery. Will continue to monitor closely He has blood-tinged urine. Continue to monitor for heavy bleeding -strict I/O -daily bmp (2) Hypertension: Plan: Blood pressure is improving > Continue nifedipine (does not interact w/ HIV med) ER 30 mg (3) CKD (chronic kidney disease) stage 4, GFR 15-29 ml/min: Plan: baseline CKD 4 with a creatinine anywhere from 2.7-3.2. In fact even when he was in [place] he was closely followed at [facility]. he had ESRD options class and in the past has indicated he will do peritoneal dialysis if such need arises. he also claims he is on transplant list at [facility]. (4) Hydronephrosis concurrent with and due to calculi of kidney and ureter: Plan: s/p R ureteral stent 12/29 Plan high medical complexity Admission and Anticipated Discharge Date Admission Date: December 31, 2023 Subjective Seen for acute kidney injury and hyperkalemia. He is making urine and was net - 4 L yesterday. He has some blood tinged urine in the urine bag. No shortness of breath. Patient frustrated about lack of information regarding possible dialysis catheter Review of Systems 2 Review of Systems: All other systems were reviewed and negative except as noted in HPI Physical Exam 2 Physical Exam: General exam: Appears comfortable, no acute distress HEENT: Pupils are equal and reactive to light Neck: No JVD, neck is supple trachea is midline Respiratory system: Clear breath sounds bilaterally. Gastrointestinal: Abdomen is soft, non distended, non tender, bowel sounds are present CVS: Regular rate and rhythm. No murmurs, rubs or gallops Musculoskeletal: No joint or muscle tenderness Extremities: Non tender, no edema, peripheral pulses are present Neuro: Oriented, no tremors, no focal neurological deficits Skin: No rashes Results & Data Vital Signs (Past 12 Hours) Vital Signs Temp Pulse Pulse Resp BP BP Pulse Ox 01/08/24 07:40 36.8 C 73 18 157/76 H 94 01/08/24 07:35 84 01/08/24 03:32 36.6 C 70 18 158/80 H 97 01/07/24 23:30 36.7 C 72 17 162/83 H 95 O2 Del Method 01/08/24 07:40 Room Air 01/08/24 07:35 01/08/24 03:32 Room Air 01/07/24 23:30 Room Air Laboratory Results 01/08/24 07:09 01/08/24 07:09 WBC 7.26 RBC 3.81 L MCV 85.8 MCH 27.6 MCHC 32.1 RDW Std Deviation 49.1 H RDW Coeff of Meera 15.6 H Plt Count 162 MPV 9.4 Phosphorus 3.8
[2024-01-08 12:17] LABS: HIV-1 RNA Log Copies/mL 1.4 (NOT DETECTED)
[2024-01-09] MEDS: oxyCODONE HCL IR 5 MG TAB (IMMEDIATE RELEASE) PO STA (00:23)
[2024-01-09 07:13] LABS: Hematocrit (blood only) 30.7 % (42.0-52.0); Hemoglobin 9.6 g/dl (14.0-18.0); Mean Corpuscular Hemoglobin 27.3 pg (25.0-34.0); Mean Corpuscular Hgb Conc 31.3 g/dL (32.0-36.0); Mean Corpuscular Volume 87.2 fL (80.0-100.0); Mean Platelet Volume 9.7 fL (9.4-12.4); Platelet Count 141 K/uL (130-400); RDW Coefficient of Variation 14.8 % (11.5-14.5); RDW Standard Deviation 47.3 fL (36.4-46.3); Red Blood Count 3.52 M/uL (4.70-6.10); White Blood Count 6.14 K/ul (4.8-10.8)
[2024-01-09 07:24] LABS: BUN Creatinine Ratio 6.1 (10-20); Calcium 8.8 mg/dl (8.6-10.3); Creatinine Clr Calc Pharmacy 13.2 ml/min; Est GFR (African American) 10.6 ml/min; Est GFR (Non-African American) 9.2 ml/min; Magnesium 1.7 mg/dl (1.7-2.4); Phosphorus 4.5 mg/dl (2.5-4.9); Potassium 5.1 mmol/L (3.5-5.1)
--- NOTE | 2024-01-09 07:35 | Hospitalist Progress Note ---
Date of Service January 09, 2024 Assessment & Plan (1) YASIR (acute kidney injury): Plan 68 yo M with PMHx significant for chronic systolic heart failure (EF 45%, TTE 2022), CAD status post stent (2017), chronic LBBB, hypertension, hyperlipidemia, HIV on Rx, DM2 insulin requiring, CKD (baseline creatinine 2.7-3.1), chronic anemia (baseline hemoglobin of 13), history colonic polyps/internal hemorrhoids, anal HGSIL as per records, urolithiasis, mood disorder, past tobacco abuse a dmitted with acute renal failure on CKD secondary to diarrheal illness and obstructive uropathy from recurrent kidney stones. Acute renal Failure on CKD Baseline creatinine 2.7-3.1 Pt presented with Cr of 11 Nephrology was consulted Had stent placement by Urology on admission, initially started on IV hydration by Nephrology with bicarb drip No improvement on 12/31 with worsening mental status and hypotension Temp femoral dialysis catheter placement by National Account Representative on 12/31, s/p dialysis session that day (femoral accessswas removed0 Further dialysis sessions per nephrology, bicarb drip has since been discontinued, management per nephrology Appreciate Nephrology recs Discussed with nephro - 01/04 plan to remove femoral access today after dialysis and cont. to watch labs Discussed w/ nephrology, femoral catheter removed, NPO after MN Wednesday night, in case need for tunneled line on Wednesday - vasc. surgery aware. Septic Shock- resolved Pt with tachycardia, leukocytosis, low BP on 12/31 UA suggestive of infection and likely infectious source Noted lesion on left foot, diarrheal illness (see below) Lactate wnl Blood Cx x2 sets NGTD Urine Cx NGTD On Zosyn, continue Was on pressors in the ICU for BP support Resolved and downgraded Hydronephrosis, right Nephrolithiasis Complicated UTI CT abd /pelvis concerning for mild R hydronephrosis and possible nonobstructive nephrolithiasis Urology was consulted -Due to acute renal failure and given the hydronephrosis, Urology recommended ureteral stent placement -s/p ureteral stent placement on 12/30 Initial urine sample not suggestive of infection UA repeated on 12/31, suggestive of infection. Urine Cx NGTD Blood cx x2 NGTD On Zosyn per ICU, continue Appreciate Urology recs ID consulted for further recs in setting of HIV Diarrhea Enteritis Pt with copious diarrhea C diff negative Stool Cx negative CT abd/pelvis noting an enteritis PRN loperamide IV hydration ID consulted for further recs in setting of HIV - recommend GI consults + labs - labs ordered and GI consulted Colonoscopy w/ biopsy (Saturday 01/06) Impression: - Three 4 to 11 mm polyps in the transverse colon and in the cecum, removed with a hot snare. Resected and retrieved. - Diverticulosis in the sigmoid colon. - Non-bleeding internal hemorrhoids. - Several random biopsies were obtained in the entire colon. - Fluid aspiration was performed. Recommendation: - [facility]. - Resume previous diet. - Continue present medications. - Repeat colonoscopy for surveillance based on pathology results. Anion gap Metabolic acidosis Anion gap elevated at 18 VBG with noted pH 7.10, CO2 22 and HCO3 7 secondary to above Nephrology consulted as above Resolved Acute on chronic anemia secondary to LGIB patient nontoxic history colonic polyps/internal hemorrhoids Hgb between 11-13 Anemia labs (iron, b12, folate all normal) Home aspirin and prasugrel resumed in the ICU Follow H&H, transfuse PRBC if hemoglobin less than 8 and or for symptomatic anemia Continue to monitor Pancytopenia Pt with anemia as above, decreasing platelets to 111 and new leukopenia as well Peripheral smear -combination of recent sepsis, kidney injury and anemia of chronic disease -no evidence of hematolymphoid neoplasia Continue to monitor with AM labs Consider Hematology consult Hyponatremia Sodium of 132 on admission Currently wnl Foot Injury, Left XRAY foot ordered -no acute abn Podiatry consulted, appreciate recs noted "subungual hematoma. This toenail and underlying hematoma are stable, with no current indication to remove the toenail on this hospitalization. The nail is intact distally with blood underlying the proximal nail plate. If this nail loosens or if evidence of infection develop, the nail can be removed at any point in the future. This would be a simple nail avulsion performed in the office. Otherwise, the nail will continue to grow out, though may remain thickened and dystrophic permanently." Intertrigo Pt with noted groin rash Desenex powder Hypothermia-Resolved Hypothyroidism Pt with noted hypothermia overnight [place] TSH 7.558, free T4 0.51 Started on levothyroxine 25mcg PCP followup chronic systolic heart failure patient on the dry side Echo could not be completed appropriately as pt in pain Read as characteristic for septic picture Monitor volume status hx CAD status post stent chronic LBBB Stable hyperlipidemia on statin Rx, continue HIV on Rx stable disease as per [facility] ID note from last month DMII insulin requiring suboptimal control as of hemoglobin A1c of 8.8 Basal/bolus insulin regimen while hospitalized mood disorder stable DVT prophylaxis. SCDs Re: GI bleed Dispo: PT/OT ordered Admission and Anticipated Discharge Date Admission Date: December 31, 2023 Subjective Pt seen in follow up of YASIR on CKD (now on dialysis), diarrhea - seen by ID and GI - s/p colonoscopy + biopsy Currently sitting up in bed in NAD Femoral access for dialysis was removed after his last session Pt reports feeling well overall, diarrhea also seems improved. denies any blood in stool. Had some blood in Rodriguez bag yesterday - now resolved after re- adjusting the catheter. Denies abdominal pain. Denies fever, chills, chest pain or shortness of breath Review of Systems Review of Systems: All systems reviewed & are unremarkable except as noted in Subjective Physical Exam Physical Exam: General: WD/WN M in NAD HEENT: NC/AT CV: RRR Resp: Breath sounds clear bilaterally, no increased effort of breathing. Abdomen: Soft, nontender Extremities: No edema in lower extremities bilaterally. Moves extremities Skin: warm, dry Psych: Appropriate mood and affect Results & Data Results & Data Vital Signs (Past 12 Hours) Vital Signs Temp Pulse Pulse Resp BP Pulse Ox O2 Del Method 01/09/24 07:29 36.6 C 56 L 18 165/83 H 96 Room Air 01/09/24 03:32 36.5 C 57 L 17 166/88 H 95 Room Air 01/08/24 23:16 36.7 C 69 17 170/88 H 95 Room Air 01/08/24 22:00 68 01/08/24 20:00 Room Air Laboratory Results 01/09/24 01/09/24 01/08/24 Range/Units 07:06 06:10 21:56 WBC 6.14 (4.8-10.8) K/ul RBC 3.52 L (4.70-6.10) M/uL Hgb 9.6 L (14.0-18.0) g/dl Hct 30.7 L (42.0-52.0) % MCV 87.2 (80.0-100.0) fL MCH 27.3 (25.0-34.0) pg MCHC 31.3 L (32.0-36.0) g/dL RDW Std Deviation 47.3 H (36.4-46.3) fL RDW Coeff of Meera 14.8 H (11.5-14.5) % Plt Count 141 (130-400) K/uL MPV 9.7 (9.4-12.4) fL PT (9.0-12.0) Seconds INR (0.9-1.1) Sodium 137 (136-145) mmol/L Potassium 5.1 (3.5-5.1) mmol/L Chloride 108 H (98-107) mmol/L Carbon Dioxide 23 (21-32) mmol/L Anion Gap 6 (3-11) BUN 35 H (6-23) mg/dl Creatinine 5.74 H* D (0.6-1.4) mg/dl Est Cr Clr Drug Dosing 13.2 ml/min Est GFR ( Amer) 10.6 ml/min Est GFR (Non-Af Amer) 9.2 ml/min BUN/Creatinine Ratio 6.1 L (10-20) Glucose 128 H (70-99(Fasting)) mg/dl POC Glucose 123 H 191 H (70-99) mg/dl Calcium 8.8 (8.6-10.3) mg/dl Phosphorus 4.5 (2.5-4.9) mg/dl Magnesium 1.7 (1.7-2.4) mg/dl HIV-1 RNA copies/mL (NOT DETECTED) copies/mL HIV-1 RNA logcopies/mL (NOT DETECTED) 01/08/24 01/08/24 01/08/24 Range/Units 16:13 11:14 07:09 WBC 7.26 (4.8-10.8) K/ul RBC 3.81 L (4.70-6.10) M/uL Hgb 10.5 L (14.0-18.0) g/dl Hct 32.7 L (42.0-52.0) % MCV 85.8 (80.0-100.0) fL MCH 27.6 (25.0-34.0) pg MCHC 32.1 (32.0-36.0) g/dL RDW Std Deviation 49.1 H (36.4-46.3) fL RDW Coeff of Meera 15.6 H (11.5-14.5) % Plt Count 162 (130-400) K/uL MPV 9.4 (9.4-12.4) fL PT 13.2 H (9.0-12.0) Seconds INR 1.2 H (0.9-1.1) Sodium 140 (136-145) mmol/L Potassium 5.1 (3.5-5.1) mmol/L Chloride 109 H (98-107) mmol/L Carbon Dioxide 23 (21-32) mmol/L Anion Gap 8 (3-11) BUN 32 H (6-23) mg/dl Creatinine 5.29 H* D (0.6-1.4) mg/dl Est Cr Clr Drug Dosing 14.3 ml/min Est GFR ( Amer) 11.7 ml/min Est GFR (Non-Af Amer) 10.1 ml/min BUN/Creatinine Ratio 6.0 L (10-20) Glucose 134 H (70-99(Fasting)) mg/dl POC Glucose 110 H 296 H (70-99) mg/dl Calcium 9.2 (8.6-10.3) mg/dl Phosphorus 3.8 (2.5-4.9) mg/dl Magnesium 1.8 (1.7-2.4) mg/dl HIV-1 RNA copies/mL (NOT DETECTED) copies/mL HIV-1 RNA logcopies/mL (NOT DETECTED) 01/06/24 Range/Units 09:38 WBC (4.8-10.8) K/ul RBC (4.70-6.10) M/uL Hgb (14.0-18.0) g/dl Hct (42.0-52.0) % MCV (80.0-100.0) fL MCH (25.0-34.0) pg MCHC (32.0-36.0) g/dL RDW Std Deviation (36.4-46.3) fL RDW Coeff of Meera (11.5-14.5) % Plt Count (130-400) K/uL MPV (9.4-12.4) fL PT (9.0-12.0) Seconds INR (0.9-1.1) Sodium (136-145) mmol/L Potassium (3.5-5.1) mmol/L Chloride (98-107) mmol/L Carbon Dioxide (21-32) mmol/L Anion Gap (3-11) BUN (6-23) mg/dl Creatinine (0.6-1.4) mg/dl Est Cr Clr Drug Dosing ml/min Est GFR ( Amer) ml/min Est GFR (Non-Af Amer) ml/min BUN/Creatinine Ratio (10-20) Glucose (70-99(Fasting)) mg/dl POC Glucose (70-99) mg/dl Calcium (8.6-10.3) mg/dl Phosphorus (2.5-4.9) mg/dl Magnesium (1.7-2.4) mg/dl HIV-1 RNA copies/mL 25 H (NOT DETECTED) copies/mL HIV-1 RNA logcopies/mL 1.40 H (NOT DETECTED) Medications Administered Current Inpatient Medications Acetaminophen (Acetaminophen 325 Mg Tab) 650 mg PO QID PRN PRN Reason: pain/fever Stop: 01/30/24 03:01 Last Admin: 01/08/24 19:55 Dose: 650 mg Aspirin (Aspirin 81 Mg Ectab) 81 mg PO [facility] Stop: 02/01/24 10:14 Last Admin: 01/08/24 08:58 Dose: 81 mg Atorvastatin Calcium (Atorvastatin 40 Mg Tab) 40 mg PO [facility] Stop: 01/30/24 08:59 Last Admin: 01/08/24 08:58 Dose: 40 mg Calcitriol (Calcitriol 0.25 Mcg Capsule) 0.5 mcg PO [facility] Stop: 01/30/24 08:59 Last Admin: 01/08/24 08:58 Dose: 0.5 mcg Dextrose (Dextrose 50% 50 Ml Syringe) 25 - 50 ml IV UD PRN; Protocol PRN Reason: Hypoglycemia Protocol Stop: 01/30/24 04:24 Fluoxetine HCl (Fluoxetine Hcl 20 Mg Cap) 20 mg PO [facility] Stop: 01/30/24 08:59 Last Admin: 01/08/24 08:58 Dose: 20 mg Glucagon (Glucagon For Inj 1 Mg Vial) 1 mg SQ UD PRN; Protocol PRN Reason: Hypoglycemia Protocol Stop: 01/30/24 04:24 Glucose (Glucose 10 Tab/Tube) 4 - 8 tab PO UD PRN; Protocol PRN Reason: Hypoglycemia Treatment Stop: 01/30/24 04:24 Glucose (Glucose 40% Gel 15 Gm Tube) 15 - 30 gm PO UD PRN; Protocol PRN Reason: Hypoglycemia Protocol Stop: 01/30/24 04:24 Promethazine HCl 6.25 mg/ (Sodium Chloride) 50.25 mls @ 201 mls/hr IV Q6H PRN PRN Reason: Nausea And Vomiting Stop: 01/30/24 03:01 Last Infusion: 01/01/24 22:11 Dose: Infused Pantoprazole Sodium 40 mg/ (Syringe) 10 mls @ 5 mls/min IV DAILY@1100 [facility] Stop: 02/01/24 10:59 Last Admin: 01/08/24 12:21 Dose: 5 mls/min Piperacillin Sod/Tazobactam (Sod 4.5 gm/ Dextrose) 100 mls @ 25 mls/hr IV Q12 [facility]; Protocol Stop: 01/11/24 20:59 Last Infusion: 01/08/24 23:59 Dose: Infused Sodium Chloride (Nss) 500 mls @ 15 mls/hr IV .Q24H [facility] Stop: 02/06/24 07:29 Last Admin: 01/09/24 07:09 Dose: 15 mls/hr Insulin Aspart (Insulin Aspart Per Unit Charge) 0 units SC ACHS [facility] Stop: 01/30/24 04:24 Last Admin: 01/08/24 22:02 Dose: 3 units Insulin Glargine (Lantus Per Unit Charge) 5 units SQ DAILY [facility] Stop: 01/30/24 08:59 Last Admin: 01/08/24 09:49 Dose: 5 units Levothyroxine Sodium (Levothyroxine Sodium 25 Mcg Tablet) 25 mcg PO DAILYBB [facility] Stop: 01/31/24 06:29 Last Admin: 01/09/24 05:44 Dose: 25 mcg Loperamide HCl (Loperamide Hcl 2 Mg Cap) 2 mg PO Q6H PRN PRN Reason: Diarrhea Stop: 01/30/24 19:29 Last Admin: 01/03/24 21:29 Dose: 2 mg Metoprolol Succinate (Metoprolol Succ 25mg Ext Rel Tab) 25 mg PO QAM [facility] Stop: 01/30/24 08:59 Last Admin: 01/08/24 08:58 Dose: 25 mg Miconazole Nitrate (Miconazole Nitrate Powder 85 Gm) 1 appln EXT TID [facility] Stop: 01/30/24 20:59 Last Admin: 01/09/24 07:16 Dose: Not Given Miscellaneous (Carbohydrates For Hypoglycemia ) 15 - 30 gm PO UD PRN PRN Reason: Hypoglycemia Protocol Stop: 01/30/24 04:24 Multivitamins (Multivitamin Tab) 1 tab PO QAM [facility] Stop: 01/30/24 08:59 Last Admin: 01/08/24 08:58 Dose: 1 tab Nifedipine (Nifedipine Extended Rel 30 Mg Tabcr) 30 mg PO QAM [facility] Stop: 02/05/24 13:59 Last Admin: 01/08/24 08:58 Dose: 30 mg Juluca 50mg /25mg Non-Formulary Patient's Own Med 1 each PO DAILY [facility] Stop: 02/05/24 08:59 Last Admin: 01/08/24 08:59 Dose: 1 tab Potassium Chloride (Potassium Chloride Crtab 20 Meq Tabcr) 20 meq PO DAILY [facility] Stop: 02/07/24 08:59 Last Admin: 01/08/24 08:58 Dose: 20 meq
--- NOTE | 2024-01-09 10:01 | Nephrology Progress Note ---
Date of Service January 09, 2024 Assessment & Plan (1) YASIR (acute kidney injury): Plan: patient baseline creatinine is about 2.7-3.2 and has had CKD 4 for many years. 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 doubt significant obstructive uropathy component, though he is s/p R ureteric stent. but we will still continue with aggressive fluid and electrolyte resuscitation. admission creatinine is 11. This is associated with very low serum bicarb of 7 but despite that potassium still on the low end of normal. such picture can happen with severe diarrhea with significant GI loss of bicarb and potassium. he had HD 12/31 and 01/01, 01/02; 01/04 >>currently no dialysis catheter Increased urine output today may be a sign of renal recovery. Will continue to monitor closely. Will hold off PermCath placement for at least 2 more days. Stop potassium chloride supplements -strict I/O -daily bmp (2) Hypertension: Plan: Blood pressure is improving > Continue nifedipine (does not interact w/ HIV med) ER 30 mg (3) CKD (chronic kidney disease) stage 4, GFR 15-29 ml/min: Plan: baseline CKD 4 with a creatinine anywhere from 2.7-3.2. In fact even when he was in [place] he was closely followed at [facility]. he had ESRD options class and in the past has indicated he will do peritoneal dialysis if such need arises. he also claims he is on transplant list at [facility]. (4) Hydronephrosis concurrent with and due to calculi of kidney and ureter: Plan: s/p R ureteral stent 12/29 Plan high medical complexity Admission and Anticipated Discharge Date Admission Date: December 31, 2023 Subjective Seen for acute kidney injury. Patient is making more urine and was net -1.5 L yesterday. Creatinine still uptrending. No shortness of breath. Review of Systems 2 Review of Systems: All other systems were reviewed and negative except as noted in HPI Physical Exam 2 Physical Exam: General exam: Appears comfortable, no acute distress HEENT: Pupils are equal and reactive to light Neck: No JVD, neck is supple trachea is midline Respiratory system: Clear breath sounds bilaterally. Gastrointestinal: Abdomen is soft, non distended, non tender, bowel sounds are present CVS: Regular rate and rhythm. No murmurs, rubs or gallops Musculoskeletal: No joint or muscle tenderness Extremities: Non tender, no edema, peripheral pulses are present Neuro: Oriented, no tremors, no focal neurological deficits Skin: No rashes Results & Data Vital Signs (Past 12 Hours) Vital Signs Temp Pulse Pulse Resp BP Pulse Ox O2 Del Method 01/09/24 07:29 36.6 C 56 L 18 165/83 H 96 Room Air 01/09/24 03:32 36.5 C 57 L 17 166/88 H 95 Room Air 01/08/24 23:16 36.7 C 69 17 170/88 H 95 Room Air 01/08/24 22:00 68 Laboratory Results 01/09/24 06:10 01/09/24 06:10 WBC 6.14 RBC 3.52 L MCV 87.2 MCH 27.3 MCHC 31.3 L RDW Std Deviation 47.3 H RDW Coeff of Meera 14.8 H Plt Count 141 MPV 9.7 Phosphorus 4.5
[2024-01-10 07:12] LABS: Hemoglobin 10.4 g/dl (14.0-18.0); Mean Corpuscular Hemoglobin 26.9 pg (25.0-34.0); Mean Corpuscular Hgb Conc 30.6 g/dL (32.0-36.0); Mean Corpuscular Volume 87.9 fL (80.0-100.0); Mean Platelet Volume 8.8 fL (9.4-12.4); Platelet Count 129 K/uL (130-400); RDW Coefficient of Variation 14.9 % (11.5-14.5); Red Blood Count 3.87 M/uL (4.70-6.10); White Blood Count 6.25 K/ul (4.8-10.8)
[2024-01-10 07:39] LABS: BUN Creatinine Ratio 6.6 (10-20); Calcium 9.2 mg/dl (8.6-10.3); Creatinine Clr Calc Pharmacy 12.7 ml/min; Est GFR (African American) 10.2 ml/min; Est GFR (Non-African American) 8.8 ml/min; Magnesium 1.7 mg/dl (1.7-2.4); Potassium 5.2 mmol/L (3.5-5.1)
--- NOTE | 2024-01-10 09:28 | Nephrology Progress Note ---
Date of Service January 10, 2024 Assessment & Plan Admission and Anticipated Discharge Date Admission Date: December 31, 2023 Subjective Assessment & Plan (1) YASIR (acute kidney injury): Plan: patient baseline creatinine is about 2.7-3.2 and has had CKD 4 for many years. 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 doubt significant obstructive uropathy component, though he is s/p R ureteric stent. but we will still continue with aggressive fluid and electrolyte resuscitation. admission creatinine is 11. This is associated with very low serum bicarb of 7 but despite that potassium still on the low end of normal. such picture can happen with severe diarrhea with significant GI loss of bicarb and potassium. he had HD 12/31 and 01/01, 01/02; 01/04 currently no dialysis catheter Increased urine output today may be a sign of renal recovery. Will continue to monitor closely. Creat still up trending but rate of rise is slowing. Will hold off PermCath placement for now. strict I/O daily bmp K is slightly high as he was getting Kcl Supplement till yesterday. Give lokelma. (2) Hypertension: Plan: Blood pressure is improving > Continue nifedipine (does not interact w/ HIV med) ER 30 mg (3) CKD (chronic kidney disease) stage 4, GFR 15-29 ml/min: Plan: baseline CKD 4 with a creatinine anywhere from 2.7-3.2. In fact even when he was in [place] he was closely followed at [facility]. he had ESRD options class and in the past has indicated he will do peritoneal dialysis if such need arises. he also claims he is on transplant list at [facility]. (4) Hydronephrosis concurrent with and due to calculi of kidney and ureter: Plan: s/p R ureteral stent 12/29 Subjective Seen for acute kidney injury. Patient is making more urine and had 440 ml yesterday. Creatinine still uptrending but rate of rise is slower and slwoer. No shortness of breath. Review of Systems Review of Systems: All other systems were reviewed and negative except as noted in HPI Physical Exam Physical Exam: General exam: Appears comfortable, no acute distress HEENT: Pupils are equal and reactive to light Neck: No JVD, neck is supple trachea is midline Respiratory system: Clear breath sounds bilaterally. Gastrointestinal: Abdomen is soft, non distended, non tender, bowel sounds are present CVS: Regular rate and rhythm. No murmurs, rubs or gallops Musculoskeletal: No joint or muscle tenderness Extremities: Non tender, no edema, peripheral pulses are present Neuro: Oriented, no tremors, no focal neurological deficits Skin: No rashes Results & Data Vital Signs (Past 12 Hours) Vital Signs Temp Pulse Pulse Resp BP BP Pulse Ox 01/10/24 07:35 36.6 C 58 L 17 163/79 H 94 01/10/24 03:35 36.7 C 63 17 156/70 H 95 01/09/24 23:00 36.8 C 64 17 146/75 H 93 01/09/24 22:02 78 01/09/24 21:50 O2 Del Method 01/10/24 07:35 Room Air 01/10/24 03:35 Room Air 01/09/24 23:00 Room Air 01/09/24 22:02 01/09/24 21:50 Room Air
[2024-01-10] MEDS: SODIUM ZIRCONIUM CYCLOSILICATE 10 GM PACKET PO SCH (11:36)
--- NOTE | 2024-01-10 15:05 | Hospitalist Progress Note ---
Date of Service January 10, 2024 Assessment & Plan (1) YASIR (acute kidney injury): Plan 68 yo M with PMHx significant for chronic systolic heart failure (EF 45%, TTE 2022), CAD status post stent (2017), chronic LBBB, hypertension, hyperlipidemia, HIV on Rx, DM2 insulin requiring, CKD (baseline creatinine 2.7-3.1), chronic anemia (baseline hemoglobin of 13), history colonic polyps/internal hemorrhoids, anal HGSIL as per records, urolithiasis, mood disorder, past tobacco abuse a dmitted with acute renal failure on CKD secondary to diarrheal illness and obstructive uropathy from recurrent kidney stones. Acute renal Failure on CKD Baseline creatinine 2.7-3.1 Pt presented with Cr of 11 Nephrology was consulted Had stent placement by Urology on admission, initially started on IV hydration by Nephrology with bicarb drip No improvement on 12/31 with worsening mental status and hypotension Temp femoral dialysis catheter placement by Social Science Manager on 12/31, s/p dialysis session that day (femoral accessswas removed0 Further dialysis sessions per nephrology, bicarb drip has since been discontinued, management per nephrology Appreciate Nephrology recs Discussed with nephro - 01/04 plan to remove femoral access today after dialysis and cont. to watch labs Discussed w/ nephrology, femoral catheter removed, NPO after MN Wednesday night, in case need for tunneled line on Wednesday - vasc. surgery aware. 01/09 - no permcath placement today - cont. to monitor I/Os and BMP Septic Shock- resolved Pt with tachycardia, leukocytosis, low BP on 12/31 UA suggestive of infection and likely infectious source Noted lesion on left foot, diarrheal illness (see below) Lactate wnl Blood Cx x2 sets NGTD Urine Cx NGTD On Zosyn, continue Was on pressors in the ICU for BP support Resolved and downgraded Hydronephrosis, right Nephrolithiasis Complicated UTI CT abd /pelvis concerning for mild R hydronephrosis and possible nonobstructive nephrolithiasis Urology was consulted -Due to acute renal failure and given the hydronephrosis, Urology recommended ureteral stent placement -s/p ureteral stent placement on 12/30 Initial urine sample not suggestive of infection UA repeated on 12/31, suggestive of infection. Urine Cx NGTD Blood cx x2 NGTD On Zosyn per ICU, continue Appreciate Urology recs ID consulted for further recs in setting of HIV Diarrhea Enteritis Pt with copious diarrhea C diff negative Stool Cx negative CT abd/pelvis noting an enteritis PRN loperamide IV hydration ID consulted for further recs in setting of HIV - recommend GI consults + labs - labs ordered and GI consulted Colonoscopy w/ biopsy (Saturday 01/06) Impression: - Three 4 to 11 mm polyps in the transverse colon and in the cecum, removed with a hot snare. Resected and retrieved. - Diverticulosis in the sigmoid colon. - Non-bleeding internal hemorrhoids. - Several random biopsies were obtained in the entire colon. - Fluid aspiration was performed. Recommendation: - [facility]. - Resume previous diet. - Continue present medications. - Repeat colonoscopy for surveillance based on pathology results. Anion gap Metabolic acidosis Anion gap elevated at 18 VBG with noted pH 7.10, CO2 22 and HCO3 7 secondary to above Nephrology consulted as above Resolved Acute on chronic anemia secondary to LGIB patient nontoxic history colonic polyps/internal hemorrhoids Hgb between 11-13 Anemia labs (iron, b12, folate all normal) Home aspirin and prasugrel resumed in the ICU Follow H&H, transfuse PRBC if hemoglobin less than 8 and or for symptomatic anemia Continue to monitor Pancytopenia Pt with anemia as above, decreasing platelets to 111 and new leukopenia as well Peripheral smear -combination of recent sepsis, kidney injury and anemia of chronic disease -no evidence of hematolymphoid neoplasia Continue to monitor with AM labs Consider Hematology consult Hyponatremia Sodium of 132 on admission Currently wnl Foot Injury, Left XRAY foot ordered -no acute abn Podiatry consulted, appreciate recs noted "subungual hematoma. This toenail and underlying hematoma are stable, with no current indication to remove the toenail on this hospitalization. The nail is intact distally with blood underlying the proximal nail plate. If this nail loosens or if evidence of infection develop, the nail can be removed at any point in the future. This would be a simple nail avulsion performed in the office. Otherwise, the nail will continue to grow out, though may remain thickened and dystrophic permanently." Intertrigo Pt with noted groin rash Desenex powder Hypothermia-Resolved Hypothyroidism Pt with noted hypothermia overnight [place] TSH 7.558, free T4 0.51 Started on levothyroxine 25mcg PCP followup chronic systolic heart failure patient on the dry side Echo could not be completed appropriately as pt in pain Read as characteristic for septic picture Monitor volume status hx CAD status post stent chronic LBBB Stable hyperlipidemia on statin Rx, continue HIV on Rx stable disease as per C ID note from last month DMII insulin requiring suboptimal control as of hemoglobin A1c of 8.8 Basal/bolus insulin regimen while hospitalized mood disorder stable DVT prophylaxis. SCDs Re: GI bleed Dispo: PT/OT ordered Admission and Anticipated Discharge Date Admission Date: December 31, 2023 Subjective Pt seen in follow up of YASIR on CKD (now on dialysis), diarrhea - seen by ID and GI - s/p colonoscopy + biopsy Currently sitting up in bed in NAD Femoral access for dialysis was removed after his last session Pt reports feeling well overall, diarrhea also seems improved. denies any blood in stool. Denies abdominal pain. Denies fever, chills, chest pain or shortness of breath Discussed w/ nephrology - no need for permcath placement today - cont. to closely monitor I/Os and BMP Review of Systems Review of Systems: All systems reviewed & are unremarkable except as noted in Subjective Physical Exam Physical Exam: General: WD/WN M in NAD HEENT: NC/AT CV: RRR Resp: Breath sounds clear bilaterally, no increased effort of breathing. Abdomen: Soft, nontender Extremities: No edema in lower extremities bilaterally. Moves extremities Skin: warm, dry Psych: Appropriate mood and affect Results & Data Results & Data Vital Signs (Past 12 Hours) Vital Signs Temp Pulse Pulse Resp BP BP Pulse Ox 01/10/24 11:23 36.9 C 72 18 158/84 H 95 01/10/24 09:00 58 L 01/10/24 07:35 36.6 C 58 L 17 163/79 H 94 01/10/24 03:35 36.7 C 63 17 156/70 H 95 O2 Del Method 01/10/24 11:23 Room Air 01/10/24 09:00 01/10/24 07:35 Room Air 01/10/24 03:35 Room Air Laboratory Results 01/10/24 01/10/24 01/10/24 Range/Units 11:26 08:33 06:43 WBC 6.25 (4.8-10.8) K/ul RBC 3.87 L (4.70-6.10) M/uL Hgb 10.4 L (14.0-18.0) g/dl Hct 34.0 L (42.0-52.0) % MCV 87.9 (80.0-100.0) fL MCH 26.9 (25.0-34.0) pg MCHC 30.6 L (32.0-36.0) g/dL RDW Std Deviation 48.0 H (36.4-46.3) fL RDW Coeff of Meera 14.9 H (11.5-14.5) % Plt Count 129 L (130-400) K/uL MPV 8.8 L (9.4-12.4) fL Sodium 138 (136-145) mmol/L Potassium 5.2 H (3.5-5.1) mmol/L Chloride 109 H (98-107) mmol/L Carbon Dioxide 23 (21-32) mmol/L Anion Gap 6 (3-11) BUN 39 H (6-23) mg/dl Creatinine 5.94 H* (0.6-1.4) mg/dl Est Cr Clr Drug Dosing 12.7 ml/min Est GFR ( Amer) 10.2 ml/min Est GFR (Non-Af Amer) 8.8 ml/min BUN/Creatinine Ratio 6.6 L (10-20) Glucose 122 H (70-99(Fasting)) mg/dl POC Glucose 116 H 114 H (70-99) mg/dl Calcium 9.2 (8.6-10.3) mg/dl Phosphorus 5.0 H (2.5-4.9) mg/dl Magnesium 1.7 (1.7-2.4) mg/dl 01/09/24 01/09/24 Range/Units 20:35 16:09 WBC (4.8-10.8) K/ul RBC (4.70-6.10) M/uL Hgb (14.0-18.0) g/dl Hct (42.0-52.0) % MCV (80.0-100.0) fL MCH (25.0-34.0) pg MCHC (32.0-36.0) g/dL RDW Std Deviation (36.4-46.3) fL RDW Coeff of Meera (11.5-14.5) % Plt Count (130-400) K/uL MPV (9.4-12.4) fL Sodium (136-145) mmol/L Potassium (3.5-5.1) mmol/L Chloride (98-107) mmol/L Carbon Dioxide (21-32) mmol/L Anion Gap (3-11) BUN (6-23) mg/dl Creatinine (0.6-1.4) mg/dl Est Cr Clr Drug Dosing ml/min Est GFR ( Amer) ml/min Est GFR (Non-Af Amer) ml/min BUN/Creatinine Ratio (10-20) Glucose (70-99(Fasting)) mg/dl POC Glucose 109 H 125 H (70-99) mg/dl Calcium (8.6-10.3) mg/dl Phosphorus (2.5-4.9) mg/dl Magnesium (1.7-2.4) mg/dl Medications Administered Current Inpatient Medications Acetaminophen (Acetaminophen 325 Mg Tab) 650 mg PO QID PRN PRN Reason: pain/fever Stop: 01/30/24 03:01 Last Admin: 01/09/24 21:49 Dose: 650 mg Aspirin (Aspirin 81 Mg Ectab) 81 mg PO [facility] Stop: 02/01/24 10:14 Last Admin: 01/10/24 08:41 Dose: 81 mg Atorvastatin Calcium (Atorvastatin 40 Mg Tab) 40 mg PO [facility] Stop: 01/30/24 08:59 Last Admin: 01/10/24 08:43 Dose: 40 mg Calcitriol (Calcitriol 0.25 Mcg Capsule) 0.5 mcg PO [facility] Stop: 01/30/24 08:59 Last Admin: 01/10/24 08:41 Dose: 0.5 mcg Dextrose (Dextrose 50% 50 Ml Syringe) 25 - 50 ml IV UD PRN; Protocol PRN Reason: Hypoglycemia Protocol Stop: 01/30/24 04:24 Fluoxetine HCl (Fluoxetine Hcl 20 Mg Cap) 20 mg PO [facility] Stop: 01/30/24 08:59 Last Admin: 01/10/24 08:43 Dose: 20 mg Glucagon (Glucagon For Inj 1 Mg Vial) 1 mg SQ UD PRN; Protocol PRN Reason: Hypoglycemia Protocol Stop: 01/30/24 04:24 Glucose (Glucose 10 Tab/Tube) 4 - 8 tab PO UD PRN; Protocol PRN Reason: Hypoglycemia Treatment Stop: 01/30/24 04:24 Glucose (Glucose 40% Gel 15 Gm Tube) 15 - 30 gm PO UD PRN; Protocol PRN Reason: Hypoglycemia Protocol Stop: 01/30/24 04:24 Promethazine HCl 6.25 mg/ (Sodium Chloride) 50.25 mls @ 201 mls/hr IV Q6H PRN PRN Reason: Nausea And Vomiting Stop: 01/30/24 03:01 Last Infusion: 01/01/24 22:11 Dose: Infused Pantoprazole Sodium 40 mg/ (Syringe) 10 mls @ 5 mls/min IV DAILY@1100 [facility] Stop: 02/01/24 10:59 Last Admin: 01/10/24 10:01 Dose: 5 mls/min Piperacillin Sod/Tazobactam (Sod 4.5 gm/ Dextrose) 100 mls @ 25 mls/hr IV Q12 [facility]; Protocol Stop: 01/11/24 20:59 Last Infusion: 01/10/24 14:09 Dose: Infused Sodium Chloride (Nss) 500 mls @ 15 mls/hr IV .Q24H [facility] Stop: 02/06/24 07:29 Last Admin: 01/10/24 08:34 Dose: 15 mls/hr Insulin Aspart (Insulin Aspart Per Unit Charge) 0 units SC ACHS [facility] Stop: 01/30/24 04:24 Last Admin: 01/10/24 12:08 Dose: 3 units Insulin Glargine (Lantus Per Unit Charge) 5 units SQ DAILY [facility] Stop: 01/30/24 08:59 Last Admin: 01/10/24 08:53 Dose: 5 units Levothyroxine Sodium (Levothyroxine Sodium 25 Mcg Tablet) 25 mcg PO DAILYBB [facility] Stop: 01/31/24 06:29 Last Admin: 01/10/24 06:01 Dose: 25 mcg Loperamide HCl (Loperamide Hcl 2 Mg Cap) 2 mg PO Q6H PRN PRN Reason: Diarrhea Stop: 01/30/24 19:29 Last Admin: 01/03/24 21:29 Dose: 2 mg Metoprolol Succinate (Metoprolol Succ 25mg Ext Rel Tab) 25 mg PO QAM [facility] Stop: 01/30/24 08:59 Last Admin: 01/10/24 08:43 Dose: 25 mg Miconazole Nitrate (Miconazole Nitrate Powder 85 Gm) 1 appln EXT TID [facility] Stop: 01/30/24 20:59 Last Admin: 01/10/24 14:09 Dose: Not Given Miscellaneous (Carbohydrates For Hypoglycemia ) 15 - 30 gm PO UD PRN PRN Reason: Hypoglycemia Protocol Stop: 01/30/24 04:24 Multivitamins (Multivitamin Tab) 1 tab PO QAM [facility] Stop: 01/30/24 08:59 Last Admin: 01/10/24 08:42 Dose: 1 tab Nifedipine (Nifedipine Extended Rel 30 Mg Tabcr) 30 mg PO QAM [facility] Stop: 02/05/24 13:59 Last Admin: 01/10/24 08:42 Dose: 30 mg Juluca 50mg /25mg Non-Formulary Patient's Own Med 1 each PO DAILY [facility] Stop: 02/05/24 08:59 Last Admin: 01/10/24 08:51 Dose: 50 tab Sodium Zirconium Cyclosilicate (Sodium Zirconium Cyclosilicate 10 Gm Packet) 10 gm PO DAILY@1100 [facility] Stop: 02/09/24 10:59 Last Admin: 01/10/24 11:36 Dose: 10 gm
[2024-01-11 07:35] LABS: Hematocrit (blood only) 29.8 % (42.0-52.0); Hemoglobin 9.6 g/dl (14.0-18.0); Mean Corpuscular Hemoglobin 27.3 pg (25.0-34.0); Mean Corpuscular Hgb Conc 32.2 g/dL (32.0-36.0); Mean Corpuscular Volume 84.7 fL (80.0-100.0); Mean Platelet Volume 9.3 fL (9.4-12.4); Platelet Count 135 K/uL (130-400); RDW Coefficient of Variation 14.4 % (11.5-14.5); RDW Standard Deviation 44.6 fL (36.4-46.3); Red Blood Count 3.52 M/uL (4.70-6.10); White Blood Count 4.85 K/ul (4.8-10.8)
[2024-01-11 08:04] LABS: BUN Creatinine Ratio 6.9 (10-20); Calcium 8.7 mg/dl (8.6-10.3); Creatinine Clr Calc Pharmacy 10.8 ml/min; Est GFR (African American) 9.4 ml/min; Est GFR (Non-African American) 8.1 ml/min; Magnesium 1.7 mg/dl (1.7-2.4); Phosphorus 5.1 mg/dl (2.5-4.9); Potassium 4.6 mmol/L (3.5-5.1)
--- NOTE | 2024-01-11 08:20 | Hospitalist Progress Note ---
Date of Service January 11, 2024 Assessment & Plan (1) YASIR (acute kidney injury): Plan 68 yo M with PMHx significant for chronic systolic heart failure (EF 45%, TTE 2022), CAD status post stent (2017), chronic LBBB, hypertension, hyperlipidemia, HIV on Rx, DM2 insulin requiring, CKD (baseline creatinine 2.7-3.1), chronic anemia (baseline hemoglobin of 13), history colonic polyps/internal hemorrhoids, anal HGSIL as per records, urolithiasis, mood disorder, past tobacco abuse a dmitted with acute renal failure on CKD secondary to diarrheal illness and obstructive uropathy from recurrent kidney stones. Acute renal Failure on CKD Baseline creatinine 2.7-3.1 Pt presented with Cr of 11 Nephrology was consulted Had stent placement by Urology on admission, initially started on IV hydration by Nephrology with bicarb drip No improvement on 12/31 with worsening mental status and hypotension Temp femoral dialysis catheter placement by Content Assistant on 12/31, s/p dialysis session that day (femoral accessswas removed0 Further dialysis sessions per nephrology, bicarb drip has since been discontinued, management per nephrology Appreciate Nephrology recs Discussed with nephro - 01/04 plan to remove femoral access today after dialysis and cont. to watch labs Discussed w/ nephrology, femoral catheter removed, NPO after MN Wednesday night, in case need for tunneled line on Wednesday - vasc. surgery aware. 01/09 - 01/10 - no permcath placement today - cont. to monitor I/Os and BMP Septic Shock- resolved Pt with tachycardia, leukocytosis, low BP on 12/31 UA suggestive of infection and likely infectious source Noted lesion on left foot, diarrheal illness (see below) Lactate wnl Blood Cx x2 sets NGTD Urine Cx NGTD On Zosyn, continue - to be finished today Was on pressors in the ICU for BP support Resolved and downgraded Hydronephrosis, right Nephrolithiasis Complicated UTI CT abd /pelvis concerning for mild R hydronephrosis and possible nonobstructive nephrolithiasis Urology was consulted -Due to acute renal failure and given the hydronephrosis, Urology recommended ureteral stent placement -s/p ureteral stent placement on 12/30 Initial urine sample not suggestive of infection UA repeated on 12/31, suggestive of infection. Urine Cx NGTD Blood cx x2 NGTD On Zosyn per ICU, continue - to be finished today Appreciate Urology recs ID consulted for further recs in setting of HIV Diarrhea Enteritis Pt with copious diarrhea C diff negative Stool Cx negative CT abd/pelvis noting an enteritis PRN loperamide IV hydration ID consulted for further recs in setting of HIV - recommend GI consults + labs - labs ordered and GI consulted Colonoscopy w/ biopsy (Saturday 01/06) Impression: - Three 4 to 11 mm polyps in the transverse colon and in the cecum, removed with a hot snare. Resected and retrieved. - Diverticulosis in the sigmoid colon. - Non-bleeding internal hemorrhoids. - Several random biopsies were obtained in the entire colon. - Fluid aspiration was performed. Recommendation: - [facility]. - Resume previous diet. - Continue present medications. - Repeat colonoscopy for surveillance based on pathology results. Pathology A. Cecum (polypectomy): - Abundant refractile foreign material, hyperplasia of muscularis mucosae, and benign strips of colonic epithelium are all seen. - An epithelial proliferation is not seen and in fact no tumor is seen. - Please note that this part is reviewed by one of my colleagues in the Department of pathology and my colleague agrees with the rendered diagnoses on this part. B. Colon, "random colon biopsy" (biopsy): - Multiple fragments of benign colonic mucosa with no pathologic diagnoses are seen. - The clinical history of diarrhea is noted. C. Colon, transverse (polypectomy): - Fragmented tubular adenoma Anion gap Metabolic acidosis Anion gap elevated at 18 VBG with noted pH 7.10, CO2 22 and HCO3 7 secondary to above Nephrology consulted as above Resolved Acute on chronic anemia secondary to LGIB patient nontoxic history colonic polyps/internal hemorrhoids Hgb between 11-13 Anemia labs (iron, b12, folate all normal) Home aspirin and prasugrel resumed in the ICU Follow H&H, transfuse PRBC if hemoglobin less than 8 and or for symptomatic anemia Continue to monitor Pancytopenia Pt with anemia as above, decreasing platelets to 111 and new leukopenia as well Peripheral smear -combination of recent sepsis, kidney injury and anemia of chronic disease -no evidence of hematolymphoid neoplasia Continue to monitor with AM labs Consider Hematology consult Hyponatremia Sodium of 132 on admission Currently wnl Foot Injury, Left XRAY foot ordered -no acute abn Podiatry consulted, appreciate recs noted "subungual hematoma. This toenail and underlying hematoma are stable, with no current indication to remove the toenail on this hospitalization. The nail is intact distally with blood underlying the proximal nail plate. If this nail loosens or if evidence of infection develop, the nail can be removed at any point in the future. This would be a simple nail avulsion performed in the office. Otherwise, the nail will continue to grow out, though may remain thickened and dystrophic permanently." Intertrigo Pt with noted groin rash Desenex powder Hypothermia-Resolved Hypothyroidism Pt with noted hypothermia overnight [place]ugger TSH 7.558, free T4 0.51 Started on levothyroxine 25mcg PCP followup chronic systolic heart failure patient on the dry side Echo could not be completed appropriately as pt in pain Read as characteristic for septic picture Monitor volume status hx CAD status post stent chronic LBBB Stable hyperlipidemia on statin Rx, continue HIV on Rx stable disease as per [facility] ID note from last month Plan to discuss further his current antiviral med in the setting of ESRD DMII insulin requiring suboptimal control as of hemoglobin A1c of 8.8 Basal/bolus insulin regimen while hospitalized mood disorder stable DVT prophylaxis. SCDs Re: GI bleed Dispo: PT/OT ordered Admission and Anticipated Discharge Date Admission Date: December 31, 2023 Subjective Pt seen in follow up of YASIR on CKD (now on dialysis), diarrhea - seen by ID and GI - s/p colonoscopy + biopsy Currently sitting up in bed in NAD Femoral access for dialysis was removed after his last session Pt reports feeling well overall, diarrhea also seems improved. denies any blood in stool. Abx to be finished today. Denies abdominal pain. Denies fever, chills, chest pain or shortness of breath Discussed w/ nephrology - no need for permcath placement today - cont. to closely monitor I/Os and BMP Review of Systems Review of Systems: All systems reviewed & are unremarkable except as noted in Subjective Physical Exam Physical Exam: General: WD/WN M in NAD HEENT: NC/AT CV: RRR Resp: Breath sounds clear bilaterally, no increased effort of breathing. Abdomen: Soft, nontender Extremities: No edema in lower extremities bilaterally. Moves extremities Skin: warm, dry Psych: Appropriate mood and affect Results & Data Results & Data Vital Signs (Past 12 Hours) Vital Signs Temp Pulse Resp BP Pulse Ox O2 Del Method 01/11/24 07:12 36.6 C 63 19 134/74 95 Room Air 01/11/24 03:48 36.9 C 67 18 124/72 96 Room Air 01/10/24 22:53 36.6 C 72 16 141/79 H 94 Room Air Laboratory Results 01/11/24 01/11/24 01/10/24 Range/Units 07:10 06:52 20:20 WBC 4.85 (4.8-10.8) K/ul RBC 3.52 L (4.70-6.10) M/uL Hgb 9.6 L (14.0-18.0) g/dl Hct 29.8 L (42.0-52.0) % MCV 84.7 (80.0-100.0) fL MCH 27.3 (25.0-34.0) pg MCHC 32.2 (32.0-36.0) g/dL RDW Std Deviation 44.6 (36.4-46.3) fL RDW Coeff of Meera 14.4 (11.5-14.5) % Plt Count 135 (130-400) K/uL MPV 9.3 L (9.4-12.4) fL Sodium 137 (136-145) mmol/L Potassium 4.6 (3.5-5.1) mmol/L Chloride 109 H (98-107) mmol/L Carbon Dioxide 20 L (21-32) mmol/L Anion Gap 8 (3-11) BUN 44 H (6-23) mg/dl Creatinine 6.38 H* D (0.6-1.4) mg/dl Est Cr Clr Drug Dosing 10.8 ml/min Est GFR ( Amer) 9.4 ml/min Est GFR (Non-Af Amer) 8.1 ml/min BUN/Creatinine Ratio 6.9 L (10-20) Glucose 154 H (70-99(Fasting)) mg/dl POC Glucose 166 H 235 H (70-99) mg/dl Calcium 8.7 (8.6-10.3) mg/dl Phosphorus 5.1 H (2.5-4.9) mg/dl Magnesium 1.7 (1.7-2.4) mg/dl 01/10/24 01/10/24 01/10/24 Range/Units 16:36 11:26 08:33 WBC (4.8-10.8) K/ul RBC (4.70-6.10) M/uL Hgb (14.0-18.0) g/dl Hct (42.0-52.0) % MCV (80.0-100.0) fL MCH (25.0-34.0) pg MCHC (32.0-36.0) g/dL RDW Std Deviation (36.4-46.3) fL RDW Coeff of Meera (11.5-14.5) % Plt Count (130-400) K/uL MPV (9.4-12.4) fL Sodium (136-145) mmol/L Potassium (3.5-5.1) mmol/L Chloride (98-107) mmol/L Carbon Dioxide (21-32) mmol/L Anion Gap (3-11) BUN (6-23) mg/dl Creatinine (0.6-1.4) mg/dl Est Cr Clr Drug Dosing ml/min Est GFR ( Amer) ml/min Est GFR (Non-Af Amer) ml/min BUN/Creatinine Ratio (10-20) Glucose (70-99(Fasting)) mg/dl POC Glucose 160 H 116 H 114 H (70-99) mg/dl Calcium (8.6-10.3) mg/dl Phosphorus (2.5-4.9) mg/dl Magnesium (1.7-2.4) mg/dl Medications Administered Current Inpatient Medications Acetaminophen (Acetaminophen 325 Mg Tab) 650 mg PO QID PRN PRN Reason: pain/fever Stop: 01/30/24 03:01 Last Admin: 01/10/24 22:49 Dose: 650 mg Aspirin (Aspirin 81 Mg Ectab) 81 mg PO [facility] Stop: 02/01/24 10:14 Last Admin: 01/10/24 08:41 Dose: 81 mg Atorvastatin Calcium (Atorvastatin 40 Mg Tab) 40 mg PO [facility] Stop: 01/30/24 08:59 Last Admin: 01/10/24 08:43 Dose: 40 mg Calcitriol (Calcitriol 0.25 Mcg Capsule) 0.5 mcg PO [facility] Stop: 01/30/24 08:59 Last Admin: 01/10/24 08:41 Dose: 0.5 mcg Dextrose (Dextrose 50% 50 Ml Syringe) 25 - 50 ml IV UD PRN; Protocol PRN Reason: Hypoglycemia Protocol Stop: 01/30/24 04:24 Fluoxetine HCl (Fluoxetine Hcl 20 Mg Cap) 20 mg PO QAM [facility] Stop: 01/30/24 08:59 Last Admin: 01/10/24 08:43 Dose: 20 mg Glucagon (Glucagon For Inj 1 Mg Vial) 1 mg SQ UD PRN; Protocol PRN Reason: Hypoglycemia Protocol Stop: 01/30/24 04:24 Glucose (Glucose 10 Tab/Tube) 4 - 8 tab PO UD PRN; Protocol PRN Reason: Hypoglycemia Treatment Stop: 01/30/24 04:24 Glucose (Glucose 40% Gel 15 Gm Tube) 15 - 30 gm PO UD PRN; Protocol PRN Reason: Hypoglycemia Protocol Stop: 01/30/24 04:24 Promethazine HCl 6.25 mg/ (Sodium Chloride) 50.25 mls @ 201 mls/hr IV Q6H PRN PRN Reason: Nausea And Vomiting Stop: 01/30/24 03:01 Last Infusion: 01/01/24 22:11 Dose: Infused Pantoprazole Sodium 40 mg/ (Syringe) 10 mls @ 5 mls/min IV DAILY@1100 [facility] Stop: 02/01/24 10:59 Last Admin: 01/10/24 10:01 Dose: 5 mls/min Piperacillin Sod/Tazobactam (Sod 4.5 gm/ Dextrose) 100 mls @ 25 mls/hr IV Q12 [facility]; Protocol Stop: 01/11/24 20:59 Last Infusion: 01/11/24 01:32 Dose: Infused Sodium Chloride (Nss) 500 mls @ 15 mls/hr IV .Q24H [facility] Stop: 02/06/24 07:29 Last Admin: 01/10/24 08:34 Dose: 15 mls/hr Insulin Aspart (Insulin Aspart Per Unit Charge) 0 units SC ACHS [facility] Stop: 01/30/24 04:24 Last Admin: 01/10/24 21:25 Dose: 4 units Insulin Glargine (Lantus Per Unit Charge) 5 units SQ DAILY [facility] Stop: 01/30/24 08:59 Last Admin: 01/10/24 08:53 Dose: 5 units Levothyroxine Sodium (Levothyroxine Sodium 25 Mcg Tablet) 25 mcg PO DAILYBB [facility] Stop: 01/31/24 06:29 Last Admin: 01/11/24 06:22 Dose: 25 mcg Loperamide HCl (Loperamide Hcl 2 Mg Cap) 2 mg PO Q6H PRN PRN Reason: Diarrhea Stop: 01/30/24 19:29 Last Admin: 01/03/24 21:29 Dose: 2 mg Metoprolol Succinate (Metoprolol Succ 25mg Ext Rel Tab) 25 mg PO QAM [facility] Stop: 01/30/24 08:59 Last Admin: 01/10/24 08:43 Dose: 25 mg Miconazole Nitrate (Miconazole Nitrate Powder 85 Gm) 1 appln EXT TID [facility] Stop: 01/30/24 20:59 Last Admin: 01/10/24 21:24 Dose: Not Given Miscellaneous (Carbohydrates For Hypoglycemia ) 15 - 30 gm PO UD PRN PRN Reason: Hypoglycemia Protocol Stop: 01/30/24 04:24 Multivitamins ([facility]ivitamin Tab) [facility] Stop: 01/30/24 08:59 Last Admin: 01/10/24 08:42 Dose: 1 tab Nifedipine (Nifedipine Extended Rel 30 Mg Tabcr) [facility] Stop: 02/05/24 13:59 Last Admin: 01/10/24 08:42 Dose: 30 mg Juluca 50mg /25mg Non-Formulary Patient's Own Med 1 each PO DAILY [facility] Stop: 02/05/24 08:59 Last Admin: 01/10/24 08:51 Dose: 50 tab Sodium Zirconium Cyclosilicate (Sodium Zirconium Cyclosilicate 10 Gm Packet) 10 gm PO DAILY@1100 [facility] Stop: 02/09/24 10:59 Last Admin: 01/10/24 11:36 Dose: 10 gm
--- NOTE | 2024-01-11 09:32 | Nephrology Progress Note ---
Date of Service January 11, 2024 Assessment & Plan Admission and Anticipated Discharge Date Admission Date: December 31, 2023 Subjective Assessment & Plan (1) YASIR (acute kidney injury): Plan: patient baseline creatinine is about 2.7-3.2 and has had CKD 4 for many years. etiology of current YASIR is severe volume depletion from worsened chronic diarrhea for 3 weeks [employer] . doubt significant obstructive uropathy component, though he is s/p R ureteric stent. but we will still continue with aggressive fluid and electrolyte resuscitation. admission creatinine is 11. This is associated with very low serum bicarb of 7 but despite that potassium still on the low end of normal. such picture can happen with severe diarrhea with significant GI loss of bicarb and potassium. He had HD 12/31 and 01/01, 01/02 and 01/04. Last dialysis was 1 week ago. currently no dialysis catheter Increased urine output -4800 ml yesterday-- sign of renal recovery. Will continue to monitor closely. Creat still up trending Will hold off PermCath placement for today but will need a plan by --either tunneled HD cath or No dialysis. strict I/O daily bmp K is normal now. Continue lokelma till tomorrow. (2) Hypertension: Plan: Blood pressure is improving Continue nifedipine (does not interact w/ HIV med) ER 30 mg (3) CKD (chronic kidney disease) stage 4, GFR 15-29 ml/min: Plan: baseline CKD 4 with a creatinine anywhere from 2.7-3.2. In fact even when he was in [place] he was closely followed at [facility]. he had ESRD options class and in the past has indicated he will do peritoneal dialysis if such need arises but may be challenging given Chronic Diarrhea. he also claims he is on transplant list at [facility]. (4) Hydronephrosis concurrent with and due to calculi of kidney and ureter: Plan: s/p R ureteral stent 12/29 but made no difference Subjective Seen for acute kidney injury. Patient is making more urine and had 4800 ml yesterday. Creatinine still uptrending though. No shortness of breath. Review of Systems Review of Systems: All other systems were reviewed and negative except as noted in HPI Physical Exam Physical Exam: General exam: Appears comfortable, no acute distress HEENT: Pupils are equal and reactive to light Neck: No JVD, neck is supple trachea is midline Respiratory system: Clear breath sounds bilaterally. Gastrointestinal: Abdomen is soft, non distended, non tender, bowel sounds are present CVS: Regular rate and rhythm. No murmurs, rubs or gallops Musculoskeletal: No joint or muscle tenderness Extremities: Non tender, no edema, peripheral pulses are present Neuro: Oriented, no tremors, no focal neurological deficits Skin: No rashes Results & Data Vital Signs (Past 12 Hours) Vital Signs Temp Pulse Resp BP Pulse Ox O2 Del Method 01/11/24 07:12 36.6 C 63 19 134/74 95 Room Air 01/11/24 03:48 36.9 C 67 18 124/72 96 Room Air 01/10/24 22:53 36.6 C 72 16 141/79 H 94 Room Air
[2024-01-11 16:32] LABS: LSP % Cells Analyzed CD4 45 % (30-61); LSP Absolute Ct CD4 420 cells/uL (490-1740); LSP Lymphocytes Absolute 930 cells/uL (850-3900)
[2024-01-12 07:45] LABS: Hematocrit (blood only) 30.3 % (42.0-52.0); Hemoglobin 9.5 g/dl (14.0-18.0); Mean Corpuscular Hemoglobin 27.3 pg (25.0-34.0); Mean Corpuscular Hgb Conc 31.4 g/dL (32.0-36.0); Mean Corpuscular Volume 87.1 fL (80.0-100.0); Mean Platelet Volume 9.7 fL (9.4-12.4); Platelet Count 130 K/uL (130-400); RDW Coefficient of Variation 14.7 % (11.5-14.5); RDW Standard Deviation 47.1 fL (36.4-46.3); Red Blood Count 3.48 M/uL (4.70-6.10); White Blood Count 5.22 K/ul (4.8-10.8)
[2024-01-12 08:15] LABS: BUN Creatinine Ratio 6.9 (10-20); Creatinine Clr Calc Pharmacy 9.9 ml/min; Est GFR (African American) 8.5 ml/min; Est GFR (Non-African American) 7.3 ml/min; Magnesium 1.7 mg/dl (1.7-2.4); Phosphorus 5.2 mg/dl (2.5-4.9); Potassium 4.8 mmol/L (3.5-5.1)
--- NOTE | 2024-01-12 09:32 | Nephrology Progress Note ---
Date of Service January 12, 2024 Assessment & Plan Admission and Anticipated Discharge Date Admission Date: December 31, 2023 Subjective Assessment & Plan (1) YASIR (acute kidney injury): Plan: patient baseline creatinine is about 2.7-3.2 and has had CKD 4 for many years. etiology of current YASIR is severe volume depletion from worsened chronic diarrhea for [address] [employer] . doubt significant obstructive uropathy component, though he is s/p R ureteric stent. but we will still continue with aggressive fluid and electrolyte resuscitation. admission creatinine is 11. This is associated with very low serum bicarb of 7 but despite that potassium still on the low end of normal. such picture can happen with severe diarrhea with significant GI loss of bicarb and potassium. He had HD 12/31 and 01/01, 01/02 and 01/04. Last dialysis was 1 week ago. currently no dialysis catheter Increased urine output -4800 ml yesterday-- sign of renal recovery but creat still rising every day. Will continue to monitor closely. Creat still up trending. Some edema but making 4.8 liters urine on own so no need for Diuretics. will plan for Placement of Tunnelled HD cath today or tomorrow depending on vascular Schedule. he had baseline creat of 3.2 even before this so we may not see renal recovery. Also start planning for outpt Dialysis. Discussed with him and gave him the options. He wants to do at [facility] [place] under my care strict I/O (2) Hypertension: Plan: Blood pressure is improving Continue nifedipine (does not interact w/ HIV med) ER 30 mg (3) CKD (chronic kidney disease) stage 4, GFR 15-29 ml/min: Plan: baseline CKD 4 with a creatinine anywhere from 2.7-3.2. In fact even when he was in [place] he was closely followed at [facility]. he had ESRD options class and in the past has indicated he wanted to do peritoneal dialysis if such need arises but may be challenging given Chronic Diarrhea and he lives alone. He now does not want PD now. he also claims he is on transplant list at [facility]--Confirmed today again. (4) Hydronephrosis concurrent with and due to calculi of kidney and ureter: Plan: s/p R ureteral stent 12/29 but made no difference Subjective Seen for acute kidney injury. Patient is making more urine and had 4800 ml yesterday. Creatinine still uptrending though. No shortness of breath. Review of Systems Review of Systems: All other systems were reviewed and negative except as noted in HPI Physical Exam Physical Exam: General exam: Appears comfortable, no acute distress HEENT: Pupils are equal and reactive to light Neck: No JVD, neck is supple trachea is midline Respiratory system: Clear breath sounds bilaterally. Gastrointestinal: Abdomen is soft, non distended, non tender, bowel sounds are present CVS: Regular rate and rhythm. No murmurs, rubs or gallops Musculoskeletal: No joint or muscle tenderness Extremities: Non tender, no edema, peripheral pulses are present Neuro: Oriented, no tremors, no focal neurological deficits Skin: No rashes Results & Data Vital Signs (Past 12 Hours) Vital Signs Temp Pulse Pulse Resp BP Pulse Ox O2 Del Method 01/12/24 07:22 36.4 C L 69 18 148/77 H 96 Room Air 01/12/24 03:21 36.6 C 74 16 139/72 95 Room Air 01/11/24 22:41 36.7 C 73 18 151/78 H 95 Room Air 01/11/24 21:54 75
--- NOTE | 2024-01-12 16:51 | Hospitalist Progress Note ---
Date of Service January 12, 2024 Assessment & Plan (1) YASIR (acute kidney injury): Plan per previous hospitalist notes with addendum: 68 yo M with PMHx significant for chronic systolic heart failure (EF 45%, TTE 2022), CAD status post stent (2017), chronic LBBB, hypertension, hyperlipidemia, HIV on Rx, DM2 insulin requiring, CKD (baseline creatinine 2.7-3.1), chronic anemia (baseline hemoglobin of 13), history colonic polyps/internal hemorrhoids, anal HGSIL as per records, urolithiasis, mood disorder, past tobacco abuse admitted with acute renal failure on CKD secondary to diarrheal illness and obstructive uropathy from recurrent kidney stones. Acute renal Failure on CKD Baseline creatinine 2.7-3.1 Pt presented with Cr of 11 Nephrology was consulted Had stent placement by Urology on admission, initially started on IV hydration by Nephrology with bicarb drip No improvement on 12/31 with worsening mental status and hypotension Temp femoral dialysis catheter placement by Machine [employer] Sander on 12/31, s/p dialysis session that day (femoral accessswas removed0 Further dialysis sessions per nephrology, bicarb drip has since been discontinued, management per nephrology Appreciate Nephrology recs Discussed with nephro - 01/04 plan to remove femoral access today after dialysis and cont. to watch labs Discussed w/ nephrology, femoral catheter removed, NPO after MN Wednesday night, in case need for tunneled line on Wednesday - vasc. surgery aware. 01/09 - 01/10 - no permcath placement today - cont. to monitor I/Os and BMP 01/11 Discussed with nephrology service and vascular surgery service Plan for placement of tunneled cath on Wednesday Septic Shock- resolved Pt with tachycardia, leukocytosis, low BP on 12/31 UA suggestive of infection and likely infectious source Noted lesion on left foot, diarrheal illness (see below) Lactate wnl Blood Cx x2 sets NGTD Urine Cx NGTD On Zosyn, continue - to be finished today Was on pressors in the ICU for BP support Resolved Hydronephrosis, right Nephrolithiasis Complicated UTI CT abd /pelvis concerning for mild R hydronephrosis and possible nonobstructive nephrolithiasis Urology was consulted -Due to acute renal failure and given the hydronephrosis, Urology recommended ureteral stent placement -s/p ureteral stent placement on 12/30 Initial urine sample not suggestive of infection UA repeated on 12/31, suggestive of infection. Urine Cx NGTD Blood cx x2 NGTD On Zosyn per ICU, continue - to be finished today Appreciate Urology recs ID consulted for further recs in setting of HIV Diarrhea Enteritis Pt with copious diarrhea C diff negative Stool Cx negative CT abd/pelvis noting an enteritis PRN loperamide IV hydration ID consulted for further recs in setting of HIV - recommend GI consults + labs - labs ordered and GI consulted Colonoscopy w/ biopsy (Saturday 01/06) Impression: - Three 4 to 11 mm polyps in the transverse colon and in the cecum, removed with a hot snare. Resected and retrieved. - Diverticulosis in the sigmoid colon. - Non-bleeding internal hemorrhoids. - Several random biopsies were obtained in the entire colon. - Fluid aspiration was performed. Recommendation: - [facility]. - Resume previous diet. - Continue present medications. - Repeat colonoscopy for surveillance based on pathology results. Pathology A. Cecum (polypectomy): - Abundant refractile foreign material, hyperplasia of muscularis mucosae, and benign strips of colonic epithelium are all seen. - An epithelial proliferation is not seen and in fact no tumor is seen. - Please note that this part is reviewed by one of my colleagues in the Department of pathology and my colleague agrees with the rendered diagnoses on this part. B. Colon, "random colon biopsy" (biopsy): - Multiple fragments of benign colonic mucosa with no pathologic diagnoses are seen. - The clinical history of diarrhea is noted. C. Colon, transverse (polypectomy): - Fragmented tubular adenoma 01/11 Diarrhea resolved Anion gap Metabolic acidosis Anion gap elevated at 18 VBG with noted pH 7.10, CO2 22 and HCO3 7 secondary to above Nephrology consulted as above Resolved Acute on chronic anemia secondary to LGIB patient nontoxic history colonic polyps/internal hemorrhoids Hgb between 11-13 Anemia labs (iron, b12, folate all normal) Home aspirin and prasugrel resumed in the ICU Follow H&H, transfuse PRBC if hemoglobin less than 8 and or for symptomatic anemia Continue to monitor 01/11 Stable, Hg 9.5 Pancytopenia Pt with anemia as above, decreasing platelets to 111 and new leukopenia as well Peripheral smear -combination of recent sepsis, kidney injury and anemia of chronic disease -no evidence of hematolymphoid neoplasia Continue to monitor with AM labs Consider Hematology consult stable Hyponatremia Sodium of 132 on admission Currently wnl Foot Injury, Left XRAY foot ordered -no acute abn Podiatry consulted, appreciate recs noted "subungual hematoma. This toenail and underlying hematoma are stable, with no current indication to remove the toenail on this hospitalization. The nail is intact distally with blood underlying the proximal nail plate. If this nail loosens or if evidence of infection develop, the nail can be removed at any point in the future. This would be a simple nail avulsion per formed in the office. Otherwise, the nail will continue to grow out, though may remain thickened and dystrophic permanently." Intertrigo Pt with noted groin rash Desenex powder Hypothermia-Resolved Hypothyroidism Pt with noted hypothermia overnight Bearhugger TSH 7.558, free T4 0.51 Started on levothyroxine 25mcg PCP followup chronic systolic heart failure patient on the dry side Echo could not be completed appropriately as pt in pain Read as characteristic for septic picture Monitor volume status hx CAD status post stent chronic LBBB Stable hyperlipidemia on statin Rx, continue HIV on Rx stable disease as per [facility] ID note from last month Plan to discuss further his current antiviral med in the setting of ESRD DMII insulin requiring suboptimal control as of hemoglobin A1c of 8.8 Basal/bolus insulin regimen while hospitalized mood disorder stable DVT prophylaxis. SCDs Re: GI bleed Dispo: PT/OT ordered Admission and Anticipated Discharge Date Admission Date: December 31, 2023 Subjective Follow-up for acute on CKD, etc. Seen resting in bed, comfortable, not in distress States he is feeling better overall no chest pain, dyspnea, palpitations, dizziness Diarrhea resolved No fevers or chills No other new symptoms Review of Systems Review of Systems: all noted and negative except for above Physical Exam Physical Exam: General- oriented x 3, not in distress, speaks in sentences with no effort or accessory muscle use Eyes- anicteric Neck- no JVD Lungs- clear breath sounds bilaterally, no crackles or wheezing Heart- normal rate, regular rhythm; no murmurs Abdomen- normal bowel sounds, nondistended, soft, nontender Rodriguez catheter in place: Yellow, clear urine Extremities-mild bipedal edema, no erythema/warmth/tenderness Neuro- alert, oriented x 3; no gross focal neurologic deficits Skin- warm & dry Results & Data Results & Data Vital Signs (Past 12 Hours) Vital Signs Temp Pulse Pulse Resp BP BP Pulse Ox 01/12/24 16:16 90 01/12/24 15:19 36.9 C 72 18 139/76 97 01/12/24 11:32 36.7 C 73 18 137/69 95 01/12/24 08:25 69 01/12/24 07:22 36.4 C L 69 18 148/77 H 96 O2 Del Method 01/12/24 16:16 01/12/24 15:19 Room Air 01/12/24 11:32 Room Air 01/12/24 08:25 01/12/24 07:22 Room Air all noted and reviewed including below
--- NOTE | 2024-01-13 11:29 | Nephrology Progress Note ---
Date of Service January 13, 2024 Assessment & Plan Admission and Anticipated Discharge Date Admission Date: December 31, 2023 Subjective Assessment & Plan (1) YASIR (acute kidney injury): Plan: patient baseline creatinine is about 2.7-3.2 and has had CKD 4 for many years. etiology of current YASIR is severe volume depletion from worsened chronic diarrhea for 3 weeks [employer] . doubt significant obstructive uropathy component, though he is s/p R ureteric stent. but we will still continue with aggressive fluid and electrolyte resuscitation. admission creatinine is 11. This is associated with very low serum bicarb of 7 but despite that potassium still on the low end of normal. such picture can happen with severe diarrhea with significant GI loss of bicarb and potassium. He had HD 12/31 and 01/01, 01/02 and 01/04. Last dialysis was 1 week ago. currently no dialysis catheter Increased urine output -4800 ml yesterday-- sign of renal recovery but creat still rising every day. Will continue to monitor closely. Creat still up trending. Some edema but making 4.8 liters urine on own so no need for Diuretics. will plan for Placement of Tunnelled HD cath today or tomorrow depending on vascular Schedule. he had baseline creat of 3.2 even before this so we may not see renal recovery. labs from AM is pending. Also start planning for outpt Dialysis. Spoke with case finisher myself. Discussed with patient and gave him the options. He wants to do at [facility] [place] under my care strict I/O (2) Hypertension: Plan: Blood pressure is improving Continue nifedipine (does not interact w/ HIV med) ER 30 mg (3) CKD (chronic kidney disease) stage 4, GFR 15-29 ml/min: Plan: baseline CKD 4 with a creatinine anywhere from 2.7-3.2. In fact even when he was in [place] he was closely followed at [facility]. he had ESRD options class and in the past has indicated he wanted to do peritoneal dialysis if such need arises but may be challenging given Chronic Diarrhea and he lives alone. He now does not want PD now. he also claims he is on transplant list at [facility]--Confirmed today again. (4) Hydronephrosis concurrent with and due to calculi of kidney and ureter: Plan: s/p R ureteral stent 12/29 but made no difference Subjective Seen for acute kidney injury. Patient is making lot of urine and edema is almost gone. Creatinine still uptrending though. No shortness of breath. Review of Systems Review of Systems: All other systems were reviewed and negative except as noted in HPI Physical Exam Physical Exam: General exam: Appears comfortable, no acute distress HEENT: Pupils are equal and reactive to light Neck: No JVD, neck is supple trachea is midline Respiratory system: Clear breath sounds bilaterally. Gastrointestinal: Abdomen is soft, non distended, non tender, bowel sounds are present CVS: Regular rate and rhythm. No murmurs, rubs or gallops Musculoskeletal: No joint or muscle tenderness Extremities: Non tender, no edema, peripheral pulses are present Neuro: Oriented, no tremors, no focal neurological deficits Skin: No rashes Results & Data Vital Signs (Past 12 Hours) Vital Signs Temp Pulse Pulse Resp BP Pulse Ox O2 Del Method 01/13/24 07:30 36.6 C 72 16 148/76 H 96 Room Air 01/13/24 07:07 68 01/13/24 02:49 36.7 C 71 17 131/81 97 Room Air
[2024-01-13 11:47] LABS: Albumin Level 3.8 gm/dl (3.4-5.0); BUN Creatinine Ratio 7.5 (10-20); Calcium 9.7 mg/dl (8.6-10.3); Creatinine Clr Calc Pharmacy 10.5 ml/min; Est GFR (African American) 9.1 ml/min; Est GFR (Non-African American) 7.8 ml/min; Phosphorus 4.4 mg/dl (2.5-4.9); Potassium 4.7 mmol/L (3.5-5.1)
--- NOTE | 2024-01-13 13:42 | Consultation ---
Date of Consultation January 13, 2024 Assessment & Plan (1) YASIR (acute kidney injury): Will plan on TDC tomorrow. I have discussed the risks options and benefits of the procedure with the patient. The patient understands the risks options and benefits and agrees to the procedure. History of Present Illness Reason for Consultation: Need of access for dialysis Attending Physician: Bryan Waggoner MD History of Present Illness this is a 68yo male who has CKD and now has YASIR with increasing creatinine even with good urine outputs. He has had dialysis earlier in this hospitalization via a temp line. Allergies Allergy/AdvReac Type Severity Reaction Status Date / Time No Known Allergies Allergy Verified 01/07/24 10:50 Home Medications Medication Instructions Recorded Confirmed Type atorvastatin 40 mg tablet 40 mg PO QAM 01/06/22 12/30/23 History dolutegravir 50 mg-rilpivirine 25 1 tab PO QAM 01/06/22 12/30/23 History mg tablet (Juluca) fluoxetine 20 mg capsule 20 mg PO QAM 01/06/22 12/30/23 History insulin aspart U-100 100 unit/mL 10 unit subcut TIDM 01/06/22 12/30/23 History (3 mL) subcutaneous pen (Novolog FlexPen U-100 Insulin aspart) multivitamin 1 tab PO QAM 01/06/22 12/30/23 History omega 7-lcf-yoo-fish oil 1,000 mg 1 cap PO QAM 01/06/22 12/30/23 History (120 mg-180 mg) capsule (Fish Oil) prasugrel 10 mg tablet 10 mg PO QAM 01/06/22 12/30/23 History calcitriol 0.5 mcg capsule 0.5 mcg PO QAM 10/31/22 12/30/23 History insulin glargine 100 unit/mL (3 22 unit subcut QAM 02/10/23 12/30/23 History mL) subcutaneous pen (Basaglar KwikPen U-100 Insulin) aspirin 81 mg tablet,delayed 81 mg PO DAILY 12/30/23 12/30/23 History release cholecalciferol (vitamin D3) 25 25 mcg PO QAM 12/30/23 12/30/23 History mcg (1,000 unit) capsule (Vitamin D3) coenzyme Q10 10 mg capsule (Co 10 mg PO DAILY 12/30/23 12/30/23 History Q-10) metoprolol succinate 25 mg 25 mg PO QAM 12/30/23 12/30/23 History tablet,extended release 24 hr Patient History Medical History Septic shock History of kidney stones Osteoarthritis Chronic lower back pain History of pancreatitis DM type 2 (diabetes mellitus, type 2) History of skin cancer [place] (hard of hearing) HLD (hyperlipidemia) History of myocardial infarction 2016 & 2019 Sleep apnea no device Diverticulosis GERD (gastroesophageal reflux disease) IBS (irritable bowel syndrome) Precancerous lesion rectal CAD (coronary artery disease) Per patient, stenting x 5 in 2016 and restenting of 1 vessel performed in July 2020 Depression CKD (chronic kidney disease), stage IV follows with [facility] Nephrology HIV (human immunodeficiency virus infection) Surgical History S/P ureteral stent placement History of removal of ureteral stent History of cystoscopy History of colonoscopy History of cholecystectomy History of cardiac catheterization 2016 - stents 2019 -- restenting x 1. [facility] No pertinent past surgical history Family History Mother Heart disease Social History Smoking Status: Former smoker Tobacco Type: Cigarettes Second Hand Exposure: No; Do You Dip or Chew Tobacco: No; Hx Alcohol Use: Yes Alcohol type: beer, wine and hard liquor Alcohol Intake Frequency: Monthly or Less Hx Substance Use: No Preferred Language: [place] Communication Ability: Effective Electromechanical Equipment Tester Required: No Beliefs That Will Affect Care: None Current Living Situation: Alone Feels Safe at Home: Yes Assistive Devices: None Review of Systems Review of Systems: All systems reviewed & are unremarkable except as noted in HPI & below Physical Exam Constitutional: WD/WN, vitals as above Respiratory: normal respiratory effort; no respiratory distress Auscultation: lungs clear to auscultation bilaterally Cardiovascular: Rate/Rhythm: regular rate and regular rhythm Vessels: femoral pulses present and radial pulses present Gastrointestinal (Abdomen): Inspection/Auscultation: abdomen normal to inspection; abdomen not distended Percussion/Palpation: abdomen soft; abdomen nontender Psychiatric: Orientation: alert and oriented x 3 Results & Data Vital Signs (Past 12 Hours) Vital Signs Temp Pulse Pulse Resp BP Pulse Ox O2 Del Method 01/13/24 11:30 36.7 C 85 16 118/79 97 Room Air 01/13/24 07:30 36.6 C 72 16 148/76 H 96 Room Air 01/13/24 07:07 68 01/13/24 02:49 36.7 C 71 17 131/81 97 Room Air
--- NOTE | 2024-01-13 18:58 | Hospitalist Progress Note ---
Date of Service January 13, 2024 Assessment & Plan Admission and Anticipated Discharge Date Admission Date: December 31, 2023 Results & Data Results & Data Vital Signs (Past 12 Hours) Vital Signs Temp Pulse Pulse Resp BP Pulse Ox O2 Del Method 01/13/24 15:23 36.4 C L 78 16 130/81 99 Room Air 01/13/24 15:07 80 01/13/24 11:30 36.7 C 85 16 118/79 97 Room Air 01/13/24 07:30 36.6 C 72 16 148/76 H 96 Room Air 01/13/24 07:07 68
[2024-01-14] MEDS ORDERED: Nursing to Pharmacy Communication SCH (06:15)
[2024-01-14] MEDS: INSULIN ASPART PER UNIT CHARGE SC SCH (06:43)
[2024-01-14 07:16] LABS: BUN Creatinine Ratio 7.9 (10-20); Calcium 9.8 mg/dl (8.6-10.3); Creatinine Clr Calc Pharmacy 10.4 ml/min; Est GFR (Non-African American) 7.8 ml/min
--- NOTE | 2024-01-14 07:38 | Ultrasound Report ---
US venous doppler upper extremity bilateral CLINICAL HISTORY: bilateral int jug and subclavian vein patency COMPARISON STUDY: None. FINDINGS: The bilateral internal jugular and subclavian veins are patent. No evidence for DVT. IMPRESSION: The bilateral internal jugular and subclavian veins are patent. ACT 112: Negative or not required by law. Electronically signed by: Kevin France M.D. 01/14/2024 7:37 AM
--- NOTE | 2024-01-14 07:40 | History & Physical Bridge Note ---
Date of Service January 14, 2024 History & Physical Bridge Note I have examined the patient, reviewed the History & Physical and in the interval since the performance of the History & Physical I have noted the following changes of clinical significance: no changes noted
[2024-01-14] MEDS: SODIUM CHLORIDE 0.9% 1,000 ML IV SCH (07:41)
[2024-01-14] MEDS: ceFAZolin 2000MG 2,000 MG/15 ML SYR IV ONE (07:50)
[2024-01-14] MEDS: HEPARIN SOD (PORCINE) 5,000 UNITS/ML VIAL ONE (08:34)
[2024-01-14] MEDS: LIDOCAINE 1% LOCAL 20 ML VIAL ONE (08:39)
--- NOTE | 2024-01-14 08:44 | Post Operative Brief Note ---
Immediate Post Op Note v1 Date of Surgery January 14, 2024 Pre & Post Diagnosis Operation Date: 01/14/24 08:00 Pre-Op Diagnosis: Acute Renal Injury Post-Op Diagnosis: Acute Renal Injury I identified the patient and participated in the time-out.: Yes Procedure Operation Date: 01/14/24 08:00 Actual Procedures p Perm Catheter Insertion, Right Internal Jugular Approach, Ultrasound Localization of Right Internal Jugular Vein, Fluoroscopy for Positioning, Moderate Sedation [id number](Right) - Ezra Fuller MD Surgeon Ezra Fuller MD Waterproofer MD Chuck Estimated Blood Loss 5 Findings Consistent with Post-Op Diagnosis Anesthesia Type RN Sedation Complications none Disposition Accompanied Patient To Recovery: No Disposition: Recovery Room
--- NOTE | 2024-01-14 08:45 | Pre Anesthesia Assessment ---
Date of Service January 14, 2024 Pre Sedation Assessment Vital Signs Temp Pulse Pulse Resp BP Pulse Ox O2 Del Method 01/14/24 08:40 67 18 131/80 100 Room Air 01/14/24 08:35 67 18 133/82 100 Oxymask 01/14/24 08:30 69 18 141/84 H 100 Oxymask 01/14/24 08:25 67 18 121/85 100 Oxymask 01/14/24 08:20 71 18 140/86 100 Oxymask 01/14/24 08:15 66 18 133/81 100 Oxymask 01/14/24 08:10 61 18 133/81 99 Oxymask 01/14/24 08:02 64 18 129/83 99 Oxymask 01/14/24 07:15 36.8 C 69 20 127/84 98 Room Air 01/14/24 02:43 36.5 C 62 18 151/79 H 98 Room Air 01/13/24 22:55 36.6 C 73 18 140/74 96 Room Air 01/13/24 19:37 36.5 C 65 18 153/86 H 97 Room Air 01/13/24 15:23 36.4 C L 78 16 130/81 99 Room Air 01/13/24 15:07 80 01/13/24 11:30 36.7 C 85 16 118/79 97 Room Air O2 Flow Rate 01/14/24 08:40 0 01/14/24 08:35 6 01/14/24 08:30 6 01/14/24 08:25 6 01/14/24 08:20 6 01/14/24 08:15 6 01/14/24 08:10 6 01/14/24 08:02 6 01/14/24 07:15 01/14/24 02:43 01/13/24 22:55 01/13/24 19:37 01/13/24 15:23 01/13/24 15:07 01/13/24 11:30 Cardiovascular RRR, no murmur, no edema Respiratory normal respiratory effort, lungs clear to auscultation Pre-Sedation Airway Assessment Smoking Status: Former smoker Short, Thick Neck: No Thyromental Distance: > or= 3.5 Finger Breadths Oral Cavity: + WNL Mallampati Class: III ASA: ASA4 NPO Status Date of Last Intake of Fluids: 01/13/24 Date of Last Intake of Solid Food: 01/13/24 Procedure Planning Contraindications for Sedation: none Current Medications Reviewed: No Notes The planned sedation has been discussed with the patient. Informed Consent was obtained. I have identified the patient, determined the appropriateness of sedation and have assessed the patient immediately prior to the procedure. All medicine(s) and interventions are by my order.
--- NOTE | 2024-01-14 08:45 | Post Anesthesia Assessment ---
Date of Service January 14, 2024 Post Sedation Assessment Vital Signs Temp Pulse Pulse Resp BP Pulse Ox O2 Del Method 01/14/24 08:45 68 18 133/80 100 Room Air 01/14/24 08:40 67 18 131/80 100 Room Air 01/14/24 08:35 67 18 133/82 100 Oxymask 01/14/24 08:30 69 18 141/84 H 100 Oxymask 01/14/24 08:25 67 18 121/85 100 Oxymask 01/14/24 08:20 71 18 140/86 100 Oxymask 01/14/24 08:15 66 18 133/81 100 Oxymask 01/14/24 08:10 61 18 133/81 99 Oxymask 01/14/24 08:02 64 18 129/83 99 Oxymask 01/14/24 07:15 36.8 C 69 20 127/84 98 Room Air 01/14/24 02:43 36.5 C 62 18 151/79 H 98 Room Air 01/13/24 22:55 36.6 C 73 18 140/74 96 Room Air 01/13/24 19:37 36.5 C 65 18 153/86 H 97 Room Air 01/13/24 15:23 36.4 C L 78 16 130/81 99 Room Air 01/13/24 15:07 80 01/13/24 11:30 36.7 C 85 16 118/79 97 Room Air O2 Flow Rate 01/14/24 08:45 0 01/14/24 08:40 0 01/14/24 08:35 6 01/14/24 08:30 6 01/14/24 08:25 6 01/14/24 08:20 6 01/14/24 08:15 6 01/14/24 08:10 6 01/14/24 08:02 6 01/14/24 07:15 01/14/24 02:43 01/13/24 22:55 01/13/24 19:37 01/13/24 15:23 01/13/24 15:07 01/13/24 11:30 Recovery Score Activity: Moves 4 extremities Respiration: Deep Breath/Cough Circulation: +/-20% PreAnes Value Consciousness: Fully Awake Oxygen Saturation: > 92% On Room Air Post Anesthesia Score: 10 Discharge Sedation Level of Care: Fast Track Phase II Post Sedation Plan On clinical assessment, the patient appears to have tolerated the sedation without complications. Patient is recovering as anticipated. Patient will continue to be monitored by nursing and may be discharged when sedation discharge criteria are met per below protocol. Upon Completions of procedure up to 15 minutes continue every 5 minute vital signs and the P.A.R. score; then discharge to a Phase I or Fast Track to Phase II per the following guidelines: * Discharge Patient to appropriate Phase II area if PAR is 8 or greater or return to pre- procedure baseline. The post - procedure orders will be as directed. * If PAR score is less than 8 or not return to pre-procedure baseline then patient will follow Phase I monitoring till PAR is reached for Phase II. The Phase I may be done in procedure room or may call to secure a Phase I area. * If naloxone or flumazenil are used for reversal, hold in Phase I for continued monitoring from when last reversal dose was given for a minimum of 60 minutes or longer pending the nurse and/or physician discretion of patient condition before discharge to Phase II. Please call the Sedation Physician to re-evaluate and complete post-note for discharge to Phase II area. Do NOT discharge from procedure sedation or Phase 1 until post- sedation evaluation note is complete by procedure /sedation MD Sedation Discharge Instructions to be given to the patient at discharge to home.
--- NOTE | 2024-01-14 08:49 | Procedure Note ---
Angiogram Post Procedure Fluoroscopy Time (minutes): 0.5 Conscious Sedation Time (minutes): 35 Contrast: 0 Post Operative Report Pre & Post Diagnosis Operation Date: 01/14/24 08:00 Pre-Op Diagnosis: Acute Renal Injury Post-Op Diagnosis: Acute Renal Injury I identified the patient and participated in the time-out.: Yes Procedure Operation Date: 01/14/24 08:00 Actual Procedures p Perm Catheter Insertion, Right Internal Jugular Approach, Ultrasound Localization of Right Internal Jugular Vein, Fluoroscopy for Positioning, Moderate Sedation 0810-(Right) - Ezra Fuller MD Surgeon Ezra Fuller MD Explosives Worker Diamante Real MD Estimated Blood Loss 5 Findings See Below Right IJ perm cath with placement into the SVC right atrium junction. Both lumens flush and draw back Fluids 50mL Specimens none Drains none Anesthesia Type RN Sedation Complications none Disposition Accompanied Patient To Recovery: Yes Disposition: Recovery Room Indications YASIR with need for hemodialysis Description of Procedure Patient was taken to the angio suite and placed in the supine position. The right side of the neck and chest wall were prepped and draped in a sterile manner. Local anesthesia was then administered to the appropriate areas of the neck and chest wall. Ultrasound was then used to locate the right internal jugular vein. The vein compressed easily, had no filing defects, and was patent. The vein was then punctured under direct ultrasound imaging. A guidewire was then passed centrally under fluoroscopic imaging. A stab wound w as then made in the anterior chest wall and a 19 cm permcath was passed from the stab wound on the chest wall to the puncture site on the neck. The puncture site was then dilated till the 14Fr peel away sheath was inserted. The permcath was then inserted through the sheath to a central position in the distal superior vena cava. The peel away sheath was then removed. Fluro images were obtained and the catheter was manipulate to lay in a smooth curve. The catheter was then sutured in place using nylon sutures. The puncture was then closed using a 4-0 Vicryl subcuticular suture. Dermabond was used for a dressing on the puncture site. Both ports aspirated and flushed easily and were then packed with heparin. A sterile dressing was applied to the catheter. The patient left the angio suite in good condition and tolerated the procedure well. IDr. Fuller was present and scrubbed for the entire procedure. I attest to the content of the Intraoperative Record and any orders documented therein. Any exceptions are noted below.
[2024-01-14] MEDS ORDERED: SODIUM CHLORIDE 0.9% 1,000 ML IV PRN (09:06)
--- NOTE | 2024-01-14 11:02 | Dialysis Progress Note ---
Date of Service January 14, 2024 Assessment & Plan Admission and Anticipated Discharge Date Admission Date: December 31, 2023 Subjective Assessment & Plan (1) YASIR (acute kidney injury): Plan: patient baseline creatinine is about 2.7-3.2 and has had CKD 4 for many years. etiology of current YASIR is severe volume depletion from worsened chronic diarrhea for 3 weeks [employer] . doubt significant obstructive uropathy component, though he is s/p R ureteric stent. but we will still continue with aggressive fluid and electrolyte resuscitation. admission creatinine is 11. This is associated with very low serum bicarb of 7 but despite that potassium still on the low end of normal. such picture can happen with severe diarrhea with significant GI loss of bicarb and potassium. He had HD 12/31 and 01/01, 01/02 and 01/04. Despite good urine output creat really has not changed much. had tunnelled CVC and getting dialysis now with new Cath --working fine less edema now--lot of urine on own so no need for Diuretics. he had baseline creat of 3.2 even before this so we may not see renal recovery. have started planning for outpt Dialysis. Spoke with case management director myself. Discussed with patient and gave him the options. He wants to do at [facility] [place] [facility] under my care he can be discharged today--looks and feels stable. No need to keep him over the weekend waiting for paper work that has no red flag. As long as he gets dialysis within he is fine so we have plenty of days. My office and dialysis nurse is aware and will get in touch with him. (2) Hypertension: Plan: Blood pressure is improving Continue nifedipine (does not interact w/ HIV med) ER 30 mg (3) CKD (chronic kidney disease) stage 4, GFR 15-29 ml/min: Plan: baseline CKD 4 with a creatinine anywhere from 2.7-3.2. In fact even when he was in [place] he was closely followed at [facility]. he had ESRD options class and in the past has indicated he wanted to do peritoneal dialysis if such need arises but may be challenging given Chronic Diarrhea and he lives alone. He now does not want PD now. he also claims he is on transplant list at [facility]--Confirmed today again. (4) Hydronephrosis concurrent with and due to calculi of kidney and ureter: Plan: s/p R ureteral stent 12/29 but made no difference Subjective Seen during dialysis. tolerating fine. Seen for acute kidney injury on background CKD 4 now needing dialysis. Patient is making lot of urine and edema is almost gone. Creatinine stuck in high 6's though. No shortness of breath. Review of Systems Review of Systems: All other systems were reviewed and negative except as noted in HPI Physical Exam Physical Exam: General exam: Appears comfortable, no acute distress HEENT: Pupils are equal and reactive to light Neck: No JVD, neck is supple trachea is midline Respiratory system: Clear breath sounds bilaterally. Gastrointestinal: Abdomen is soft, non distended, non tender, bowel sounds are present CVS: Regular rate and rhythm. No murmurs, rubs or gallops Musculoskeletal: No joint or muscle tenderness Extremities: Non tender, no edema, peripheral pulses are present Neuro: Oriented, no tremors, no focal neurological deficits Skin: No rashes Results & Data Vital Signs (Past 12 Hours) Vital Signs Temp Pulse Pulse Pulse Resp BP Pulse Ox 01/14/24 10:24 36.3 C L 64 01/14/24 08:59 36.4 C L 65 18 130/78 96 01/14/24 08:45 68 18 133/80 100 01/14/24 08:40 67 18 131/80 100 01/14/24 08:35 67 18 133/82 100 01/14/24 08:30 69 18 141/84 H 100 01/14/24 08:25 67 18 121/85 100 01/14/24 08:20 71 18 140/86 100 01/14/24 08:15 66 18 133/81 100 01/14/24 08:10 61 18 133/81 99 01/14/24 08:02 64 18 129/83 99 01/14/24 07:15 36.8 C 69 20 127/84 98 01/14/24 02:43 36.5 C 62 18 151/79 H 98 O2 Del Method O2 Flow Rate 01/14/24 10:24 01/14/24 08:59 Room Air 01/14/24 08:45 Room Air 0 01/14/24 08:40 Room Air 0 01/14/24 08:35 Oxymask 6 01/14/24 08:30 Oxymask 6 01/14/24 08:25 Oxymask 6 01/14/24 08:20 Oxymask 6 01/14/24 08:15 Oxymask 6 01/14/24 08:10 Oxymask 6 01/14/24 08:02 Oxymask 6 01/14/24 07:15 Room Air 01/14/24 02:43 Room Air
[2024-01-14] MEDS: fentaNYL citrate PF 100 MCG/2 ML VIAL ONE (17:08)
[2024-01-14] MEDS: MIDAZOLAM HCL 1 MG/ML 2ML VIAL ONE ×2 (17:08→17:09)
--- NOTE | 2024-01-14 19:46 | Discharge Summary ---
Discharge Summary Date of Service January 14, 2024 Notes For Next Care Provider Medication Changes From Visit Nifedipine-improved blood pressure control Lokelma-to regulate high potassium levels Levothyroxine-for low thyroid hormone level Reduce insulin glargine to 10 units in the morning. Reduce insulin aspart to 6 units 3 times a day. Notify provider of BG values persistently above 180 or below 80. Admission HPI Per Admitting Provider History obtained from patient and records. Medical history significant for chronic systolic heart failure (EF 45%, TTE 2022), CAD status post stent (2017), chronic LBBB, hypertension, hyperlipidemia, HIV on Rx, DM2 insulin requiring, CRI (baseline creatinine 2.7-3.1), chronic anemia (baseline hemoglobin of 13), history colonic polyps/internal hemorrhoids, anal HGSIL as per records, urolithiasis, mood disorder, past tobacco abuse. Last confinement October 2022 for syncope attributed to dehydration from hyperglycemia. 2 weeks history of achy abdominal pain associated with watery diarrhea later noted to be bloody 2 days ago. Bilious emesis. No chest pain, no SOB. Not sure about sick contacts. No recent antibiotic Rx/out-of-town travel/new restaurants. Denies OTC NSAID intake. At about the same time, patient experienced flank pain similar to kidney stone attacks. Stone passage noted at home. Poor appetite since illness. 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 Admission Exam Per Admitting Provider GENERAL: Comfortable, pleasant, slightly hard of hearing, tremulous (chronic as per patient), no respiratory distress SKIN: Pallor, warm HEENT: Pale palpebral conjunctivae, no ptosis, dry buccal mucosa NECK : Supple, no tenderness CHEST : CTA, no tenderness HEART : Tachycardic, no obvious murmurs ABDOMEN: Marked distention, central abdominal tenderness EXTREMITIES : No LE swelling/tenderness, no other conspicuous deformities noted NEUROLOGIC : Coherent, no facial asymmetry, chronic tremors as per patient, no other gross focality Principal Dx & Hospital Course #1 = Principal Diagnosis (1) YASIR (acute kidney injury): Plan per previous hospitalist notes with addendum: 68 yo M with PMHx significant for chronic systolic heart failure (EF 45%, TTE 2022), CAD status post stent (2017), chronic LBBB, hypertension, hyperlipidemia, HIV on Rx, DM2 insulin requiring, CKD (baseline creatinine 2.7-3.1), chronic anemia (baseline hemoglobin of 13), history colonic polyps/internal hemorrhoids, anal HGSIL as per records, urolithiasis, mood disorder, past tobacco abuse admitted with acute renal failure on CKD secondary to diarrheal illness and obstructive uropathy from recurrent kidney stones. Acute renal Failure on CKD Baseline creatinine 2.7-3.1 Pt presented with Cr of 11 Nephrology was consulted Had stent placement by Urology on admission, initially started on IV hydration by Nephrology with bicarb drip No improvement on 12/31 with worsening mental status and hypotension Temp femoral dialysis catheter placement by Sports Writer on 12/31, s/p dialysis session that day (femoral accessswas removed0 Further dialysis sessions per nephrology, bicarb drip has since been discontinued, management per nephrology 01/12 Discussed with nephrology service and vascular surgery service s/p placement of tunneled cath s/p HD, tolerated well next HD this week ff up with Nephro Septic Shock- resolved Pt with tachycardia, leukocytosis, low BP on 12/31 UA suggestive of infection and likely infectious source Noted lesion on left foot, diarrheal illness (see below) Lactate wnl Blood Cx x2 sets NGTD Urine Cx NGTD completed course of Zosyn Was on pressors in the ICU for BP support Resolved Hydronephrosis, right Nephrolithiasis Complicated UTI CT abd /pelvis concerning for mild R hydronephrosis and possible nonobstructive nephrolithiasis Urology was consulted -Due to acute renal failure and given the hydronephrosis, Urology recommended ureteral stent placement -s/p ureteral stent placement on 12/30 Initial urine sample not suggestive of infection UA repeated on 12/31, suggestive of infection. Urine Cx NGTD Blood cx x2 NGTD completed course of Zosyn ID consulted for further recs in setting of HIV ff up with Urologist for removal of Ureteral stent Diarrhea Enteritis Pt with copious diarrhea C diff negative Stool Cx negative CT abd/pelvis noting an enteritis ID consulted for further recs in setting of HIV - recommend GI consults + labs - labs ordered and GI consulted Colonoscopy w/ biopsy (Saturday 01/06) Impression: - Three 4 to 11 mm polyps in the transverse colon and in the cecum, removed with a hot snare. Resected and retrieved. - Diverticulosis in the sigmoid colon. - Non-bleeding internal hemorrhoids. - Several random biopsies were obtained in the entire colon. - Fluid aspiration was performed. Recommendation: - [facility] care. - Resume previous diet. - Continue present medications. - Repeat colonoscopy for surveillance based on pathology results. Pathology A. Cecum (polypectomy): - Abundant refractile foreign material, hyperplasia of muscularis mucosae, and benign strips of colonic epithelium are all seen. - An epithelial proliferation is not seen and in fact no tumor is seen. - Please note that this part is reviewed by one of my colleagues in the Department of pathology and my colleague agrees with the rendered diagnoses on this part. B. Colon, "random colon biopsy" (biopsy): - Multiple fragments of benign colonic mucosa with no pathologic diagnoses are seen. - The clinical history of diarrhea is noted. C. Colon, transverse (polypectomy): - Fragmented tubular adenoma 5/2 Diarrhea resolved Acute on chronic anemia secondary to LGIB patient nontoxic history colonic polyps/internal hemorrhoids Hgb between 11-13 Anemia labs (iron, b12, folate all normal) Home aspirin and prasugrel resumed in the ICU Follow H&H, transfuse PRBC if hemoglobin less than 8 and or for symptomatic anemia Continue to monitor 5/2 Stable, Hg 9.5 Pancytopenia Pt with anemia as above, decreasing platelets to 111 and new leukopenia as well Peripheral smear -combination of recent sepsis, kidney injury and anemia of chronic disease -no evidence of hematolymphoid neoplasia Continue to monitor with AM labs Consider Hematology consult stable Hyponatremia Sodium of 132 on admission Currently wnl Foot Injury, Left XRAY foot ordered -no acute abn Podiatry consulted, appreciate recs noted "subungual hematoma. This toenail and underlying hematoma are stable, with no current indication to remove the toenail on this hospitalization. The nail is intact distally with blood underlying the proximal nail plate. If this nail loosens or if evidence of infection develop, the nail can be rem manuel at any point in the future. This would be a simple nail avulsion performed in the office. Otherwise, the nail will continue to grow out, though may remain thickened and dystrophic permanently." Intertrigo Pt with noted groin rash Desenex powder Hypothermia-Resolved Hypothyroidism Pt with noted hypothermia overnight Bearhugger TSH 7.558, free T4 0.51 Started on levothyroxine 25mcg PCP followup chronic systolic heart failure patient on the dry side Echo could not be completed appropriately as pt in pain volume management per Nephro hx CAD status post stent chronic LBBB Stable hyperlipidemia on statin Rx, continue HIV on Rx stable disease as per C ID note from last month ff up with ID DMII insulin requiring suboptimal control as of hemoglobin A1c of 8.8 Basal/bolus insulin regimen while hospitalized Reduce insulin glargine to 10 units in the morning. Reduce insulin aspart to 6 units 3 times a day. Notify provider of BG values persistently above 180 or below 80 mood disorder stable DVT prophylaxis. SCDs Re: GI bleed Dispo: PT/OT ordered Discharge Exam General- oriented x 3, not in distress, speaks in sentences with no effort or accessory muscle use Eyes- anicteric Neck- no JVD Lungs- clear breath sounds bilaterally, no rales/wheezes Heart- normal rate, regular rhythm; no murmurs Abdomen- normal bowel sounds, nondistended, soft, nontender Extremities- no pretibial edema, no calf tenderness Neuro- alert, oriented x 3; no gross focal neurologic deficits Skin- warm & dry Updated Medication List Medication Instructions Recorded Confirmed Type atorvastatin 40 mg tablet 40 mg PO QAM 01/06/22 12/30/23 History dolutegravir 50 mg-rilpivirine 25 1 tab PO QAM 01/06/22 12/30/23 History mg tablet (Juluca) fluoxetine 20 mg capsule 20 mg PO QAM 01/06/22 12/30/23 History multivitamin 1 tab PO QAM 01/06/22 12/30/23 History omega 5-ggj-jxs-fish oil 1,000 mg 1 cap PO QAM 01/06/22 12/30/23 History (120 mg-180 mg) capsule (Fish Oil) calcitriol 0.5 mcg capsule 0.5 mcg PO QAM 10/31/22 12/30/23 History aspirin 81 mg tablet,delayed 81 mg PO DAILY 12/30/23 12/30/23 History release cholecalciferol (vitamin D3) 25 25 mcg PO QAM 12/30/23 12/30/23 History mcg (1,000 unit) capsule (Vitamin D3) coenzyme Q10 10 mg capsule (Co 10 mg PO DAILY 12/30/23 12/30/23 History Q-10) metoprolol succinate 25 mg 25 mg PO QAM 12/30/23 12/30/23 History tablet,extended release 24 hr insulin aspart U-100 100 unit/mL 6 unit (0.06 mL) subcut TIDM #0 mL 01/14/24 12/30/23 Rx (3 mL) subcutaneous pen (Novolog FlexPen U-100 Insulin aspart) insulin glargine 100 unit/mL (3 10 unit (0.1 mL) subcut QAM #0 mL 01/14/24 12/30/23 Rx mL) subcutaneous pen (Basaglar KwikPen U-100 Insulin) levothyroxine 25 mcg tablet 25 mcg PO DAILYBB 30 days #30 tabs 01/14/24 Rx (Synthroid) nifedipine 30 mg tablet,extended 30 mg PO QAM 30 days #30 tabs 01/14/24 Rx release 24 hr (Procardia XL) prasugrel 10 mg tablet 10 mg PO QAM #30 tabs 01/14/24 12/30/23 Rx sodium zirconium cyclosilicate 10 10 g PO DAILY@1100 30 days #1 ea 01/14/24 Rx gram oral powder packet (Lokelma) Hospital Stay Data Consultations 12/30/23 23:19 ED Decision to Admit Stat 12/31/23 04:25 Consult Nephrology Routine Consult Urology Routine 12/31/23 19:37 Consult Podiatry Routine 01/01/24 19:42 Consult Sports Writer Routine 01/03/24 20:43 Consult Infectious Diseases Routine 01/05/24 11:21 Consult Gastroenterology Routine 01/07/24 10:38 Consult Infectious Diseases Routine 01/07/24 14:49 Consult Vascular Surgery Routine Procedures Performed Operation Date: 01/14/24 08:00 Actual Procedures p Perm Catheter Insertion, Right Internal Jugular Approach, Ultrasound Localization of Right Internal Jugular Vein, Fluoroscopy for Positioning, Moderate Sedation [id number](Right) - Ezra Fuller MD Diagnostic Imagining Performed Laboratory Results WBC 5.22 K/ul (4.8-10.8) 01/12/24 07:08 RBC 3.48 M/uL (4.70-6.10) L 01/12/24 07:08 Hgb 9.5 g/dl (14.0-18.0) L 01/12/24 07:08 Hct 30.3 % (42.0-52.0) L 01/12/24 07:08 MCV 87.1 fL (80.0-100.0) 01/12/24 07:08 MCH 27.3 pg (25.0-34.0) 01/12/24 07:08 MCHC 31.4 g/dL (32.0-36.0) L 01/12/24 07:08 RDW Std Deviation 47.1 fL (36.4-46.3) H 01/12/24 07:08 RDW Coeff of Meera 14.7 % (11.5-14.5) H 01/12/24 07:08 Plt Count 130 K/uL (130-400) 01/12/24 07:08 MPV 9.7 fL (9.4-12.4) 01/12/24 07:08 Immature Gran % (Auto) 1.4 % 01/06/24 06:25 Neut % (Auto) 63.4 % 01/06/24 06:25 Lymph % (Auto) 16.6 % 01/06/24 06:25 Barnes % (Auto) 12.8 % 01/06/24 06:25 Eos % (Auto) 5.5 % 01/06/24 06:25 Baso % (Auto) 0.3 % 01/06/24 06:25 Neut # (Auto) 3.71 K/uL (1.40-6.50) 01/06/24 06:25 Lymph # (Auto) 0.97 K/uL (1.20-3.40) L 01/06/24 06:25 Barnes # (Auto) 0.75 K/uL (0.11-0.59) H 01/06/24 06:25 Eos # (Auto) 0.32 K/uL (0.00-0.50) 01/06/24 06:25 Baso # (Auto) 0.02 K/uL (0.00-0.20) 01/06/24 06:25 Immature Gran # (Auto) 0.08 K/uL (0.01-0.20) 01/06/24 06:25 Absolute Nucleated RBC 0.02 K/uL (0.00-0.12) 01/01/24 11:55 Nucleated RBC % (auto) 0.1 % 01/01/24 11:55 Peripher Smr Path Cons 01/04/24 04: PT 13.2 Seconds (9.0-12.0) H 01/08/24 07:09 INR 1.2 (0.9-1.1) H 01/08/24 07:09 APTT 38 Seconds (21-31) H 12/30/23 21:07 PTT Ratio 1.3 12/30/23 21:07 VBG pH 7.26 (7.36-7.41) L 01/01/24 19: VBG pCO2 35 mmHg (38-50) L 01/01/24 19: VBG pO2 47 mmHg 01/01/24 19: VBG HCO3 16 mmol/L 01/01/24 19: VBG O2 Saturation 76.2 % 01/01/24 19:23 VBG Base Excess -10.4 mEq/L 01/01/24 19: Barometric Pressure Cancelled 12/31/23 07:28 Sodium 136 mmol/L (136-145) 01/14/24 06:29 Potassium 5.0 mmol/L (3.5-5.1) 01/14/24 06:29 Chloride 109 mmol/L (98-107) H 01/14/24 06:29 Carbon Dioxide 21 mmol/L (21-32) 01/14/24 06:29 Anion Gap 6 (3-11) 01/14/24 06:29 BUN 52 mg/dl (6-23) H 01/14/24 06:29 Creatinine 6.58 mg/dl (0.6-1.4) H* 01/14/24 06:29 Est Cr Clr Drug Dosing 10.4 ml/min 01/14/24 06:29 Est GFR ( Amer) 9.0 ml/min 01/14/24 06:29 Est GFR (Non-Af Amer) 7.8 ml/min 01/14/24 06:29 BUN/Creatinine Ratio 7.9 (10-20) L 01/14/24 06:29 Glucose 244 mg/dl (70-99(Fasting)) H 01/14/24 06:29 POC Glucose 237 mg/dl (70-99) H 01/14/24 16:33 Estimat Average Glucose 206 mg/dl 12/31/23 00:18 Hemoglobin A1c 8.8 % (4.5-5.6) H 12/31/23 00:18 Lactate 0.8 mmol/L (0.4-2.0) 01/01/24 11:55 Calcium 9.8 mg/dl (8.6-10.3) 01/14/24 06:29 Phosphorus 4.4 mg/dl (2.5-4.9) 01/13/24 10:00 Magnesium 1.7 mg/dl (1.7-2.4) 01/12/24 07:08 Iron 133 mcg/dl (35-175) 01/02/24 04:41 TIBC TNP 01/02/24 04:41 Unsaturated IBC < 55 mcg/dl (155-355) L 01/02/24 04:41 Transferrin % Sat TNP 01/02/24 04:41 Ferritin 116.8 ng/ml (8-388) 01/02/24 04:41 Total Bilirubin 0.5 mg/dl (0.2-1.0) 01/07/24 05:55 AST 70 U/L (13-39) H 01/07/24 05:55 ALT 32 U/L (7-52) 01/07/24 05:55 Alkaline Phosphatase 78 U/L (34-104) 01/07/24 05:55 Total Creatine Kinase 148 U/L (30-223) 12/30/23 21:07 Troponin I High Sens 29.4 pg/ml (0-20) H 01/02/24 00:28 Total Protein 4.9 gm/dl (6.0-8.3) L 01/07/24 05:55 Albumin 3.8 gm/dl (3.4-5.0) 01/13/24 10:00 Globulin 2.1 gm/dl (2.5-4.0) L 01/07/24 05:55 Albumin/Globulin Ratio 1.3 (0.9-2) 01/07/24 05:55 Vitamin B12 429 pg/ml (180-914) 01/02/24 04:41 Folate 11.55 ng/ml (>5.38) 01/02/24 04:41 TSH 7.558 uIu/ml (0.300-4.500) H 12/30/23 21:07 Free T4 0.51 ng/dl (0.61-1.60) L 12/30/23 21:07 Urine Color Red 01/01/24 14:00 Urine Appearance Turbid (Clear) A 01/01/24 14:00 Urine pH 5.0 (4.5-7.5) 01/01/24 14:00 Ur Specific Eagle 1.014 (1.000-1.030) 01/01/24 14:00 Urine Protein 3+ (Negative) H 01/01/24 14:00 Urine Glucose (UA) Trace (Negative) H 01/01/24 14:00 Urine Ketones Trace (Negative) H 01/01/24 14:00 Urine Blood 3+ (Negative) H 01/01/24 14:00 Urine Nitrite Negative (Negative) 01/01/24 14:00 Urine Bilirubin Negative (Negative) 01/01/24 14:00 Urine Urobilinogen Negative (Negative) 01/01/24 14:00 Ur Leukocyte Esterase 2+ (Negative) H 01/01/24 14:00 Urine WBC (Auto) >50 /hpf (0-5) H 01/01/24 14:00 Urine RBC (Auto) >20 /hpf (0-2) H 01/01/24 14:00 U Hyaline Cast (Auto) 0-2 /lpf (0-2) 01/01/24 14:00 U Epithel Cells (Auto) 0-2 /hpf (0-2) 01/01/24 14:00 Urine Bacteria (Auto) 2+ (None Seen) H 01/01/24 14:00 Nasal Screen MRSA (PCR) Negative (Negative) 01/01/24 10:30 Stool Calprotectin <5 mcg/g 01/07/24 12:38 Stl C. cayetanensis PCR Not Detected (NotDetected) 12/31/23 13:00 Stool Rotavirus A PCR Not Detected (NotDetected) 12/31/23 13:00 Stl Adenov F 40/41 PCR Not Detected (NotDetected) 12/31/23 13:00 Stool Astrovirus (PCR) Not Detected (NotDetected) 12/31/23 13:00 Stool Campylobacter PCR Not Detected (NotDetected) 12/31/23 13:00 Stl C. diff Tox B Gene Negative Cdiff Gene (Neg) 01/07/24 12:38 Stool Cryptosporidium PCR Not Detected (NotDetected) 12/31/23 13:00 Stl E.coli Shiga Tox PCR Not Detected (NotDetected) 12/31/23 13:00 Stl Enterotoxigenic E PCR Not Detected (NotDetected) 12/31/23 13:00 Stool EPEC (PCR) Not Detected (NotDetected) 12/31/23 13:00 Stool EAEC (PCR) Not Detected (NotDetected) 12/31/23 13:00 Stl E. histolytica PCR Not Detected (NotDetected) 12/31/23 13:00 Stool Giardia Lamblia PCR Not Detected (NotDetected) 12/31/23 13:00 Stool Salmonella PCR Not Detected (NotDetected) 12/31/23 13:00 Stool Sapovirus (PCR) Not Detected (NotDetected) 12/31/23 13:00 Stl Shiga Toxins (EIA) SEE NOTE 01/07/24 12:38 Stl P. shigelloides PCR Not Detected (NotDetected) 12/31/23 13:00 Stl Shigella/EIEC PCR Not Detected (NotDetected) 12/31/23 13:00 St Y.enterocolitica PCR Not Detected (NotDetected) 12/31/23 13:00 Stool Vibrio (PCR) Not Detected (NotDetected) 12/31/23 13:00 Stl Vibrio cholerae PCR Not Detected (NotDetected) 12/31/23 13:00 Stl Norovirus GI/GII PCR Not Detected (NotDetected) 12/31/23 13:00 Stool Comments SEE NOTE 01/07/24 12:38 Stone Source RIGHT URETERAL STONE 12/31/23 14:31 Stone Weight 0.074 g 12/31/23 14:31 Stone Composition SEE NOTE 12/31/23 14:31 Stone Composition 2 DNR 12/31/23 14:31 Absolute Lymphocytes 930 cells/uL (850-3900) 01/06/24 09:38 % CD4 Cells 45 % (30-61) 01/06/24 09:38 Absolute CD4 Count 420 cells/uL (490-1740) L 01/06/24 09:38 Campylobacter Antigen SEE NOTE 01/07/24 12:38 C.trachomatis RNA Not Detected (NotDetected) 01/06/24 15:15 Hep Bs Antigen NON-REACTIVE (NON-REACTIVE) 01/01/24 11:24 Hep Bs Ag Confirmation TNP 01/01/24 11:24 Hep Bs Antibody, Quant 18 mIU/mL (> OR = 10) 01/01/24 11:24 Hep B Core Total Ab REACTIVE (NON-REACTIVE) A 01/01/24 11:24 HIV-1 RNA copies/mL 25 copies/mL (NOT DETECTED) H 01/06/24 09:38 HIV-1 RNA logcopies/mL 1.40 (NOT DETECTED) H 01/06/24 09:38 N.gonorrhoeae RNA Not Detected (NotDetected) 01/06/24 15:15 Salmonella/Shigella SEE NOTE 01/07/24 12:38 Blood Type A Positive 12/31/23 00:18 Antibody Screen NEGATIVE 12/31/23 00:18 Impressions Abdomen/Pelvis CT 12/30/23 22:55 Exam(s): CT ABDOMEN + PELVIS Without Contrast EXAM: CT Abdomen and Pelvis Without Intravenous Contrast CLINICAL HISTORY: Reason for exam: yasir. TECHNIQUE: Axial computed tomography images of the abdomen and pelvis without intravenous contrast. CTDI is 24.25 mGy and DLP is 1275.52 mGy-cm. Automated exposure control was utilized for the study. A dose lowering technique was utilized adhering to the principles of ALARA. COMPARISON: No relevant prior studies available. FINDINGS: Lung bases: Unremarkable. No mass. No consolidation. ABDOMEN: Liver: Unremarkable. Gallbladder and bile ducts: Cholecystectomy. No ductal dilation. Pancreas: Atrophy of the pancreas with calcifications, consistent with sequelae of chronic pancreatitis. No ductal dilation. Spleen: Unremarkable. No splenomegaly. Adrenals: Unremarkable. No mass. Kidneys and ureters: Nonobstructing 5 mm stone in the urinary bladder, recently passed in the RIGHT renal collecting system. Mild residual hydronephrosis of the RIGHT kidney. Bilateral renal cysts. Stomach and bowel: Mild fluid-filled small bowel with mild wall thickening, concerning for mild enteritis. No small bowel obstruction. PELVIS: Appendix: No findings to suggest acute appendicitis. Bladder: Unremarkable. No stones. Reproductive: Unremarkable as visualized. ABDOMEN and PELVIS: Intraperitoneal space: Unremarkable. No free air. No significant fluid collection. Bones/joints: Degenerative changes of the spine. No acute fracture. No dislocation. Soft tissues: Unremarkable. Vasculature: Atherosclerotic changes of the aorta. No abdominal aortic aneurysm. Lymph nodes: Unremarkable. No enlarged lymph nodes. IMPRESSION: 1. Nonobstructing 5 mm stone in the urinary bladder, recently passed in the RIGHT renal collecting system. Mild residual hydronephrosis of the RIGHT kidney. 2. Mild fluid-filled small bowel with mild wall thickening, concerning for mild enteritis. Electronically signed by: Ryan Cueto MD 12/31/23 00:03 AM Retrograde Pyelogram 12/31/23 00:00 FL retrograde includes kub CLINICAL HISTORY: RIGHT STENTright-sided cystourethrogram COMPARISON STUDY: CT 12/30/2023 FLUOROSCOPY TIME: 22.2 seconds FLUOROSCOPY IMAGES: 4 EXPOSURE DOSE: 8.51 mGy FINDINGS: Right-sided cystourethrogram with stent placement which appears in satisfactory position with proximal portion within the superior pole right kidney. 8 urinary bladder catheter is in place. Cholecystectomy clips incidentally noted. IMPRESSION: Fluoroscopic assistance as above. ACT 112: Negative or not required by law. Electronically signed by: Philip Jacobson M.D. 12/31/2023 3:01 PM Foot X-Ray 12/31/23 19:36 LEFT FOOT 3 VIEWS CLINICAL HISTORY: Left foot injury. FINDINGS: 3 views of the left foot are obtained. No prior studies are available for comparison at the time of dictation. The skeletal structures are osteopenic. No fracture is seen. Mild arthritic change is noted throughout the foot, greatest at the first metatarsophalangeal joint. There is a high arch. An intraosseous lipoma is suggested in the calcaneus. The overlying soft tissues are within normal limits. IMPRESSION: No acute bony abnormality is identified. Electronically signed by: Isaac Morrissey M.D. 01/01/2024 7:16 AM Chest X-Ray 01/01/24 11:17 SINGLE VIEW CHEST CLINICAL HISTORY: Central venous catheter placement. FINDINGS: An AP, portable, upright chest radiograph is compared to study dated 12/30/2023. Correlation is made with chest CT dated 06/13/2012. A right-sided central venous catheter has been placed. The tip of the catheter projects obliquely over the mediastinum. This does not appear to project over the internal jugular vein. The heart is enlarged. There is mild pulmonary vascular congestion. There is chronic elevation of the left hemidiaphragm with left basilar opacities. No large pleural effusion or pneumothorax is seen. The skeletal structures are osteopenic. The bony thorax is grossly intact. IMPRESSION: 1. A right-sided central venous catheter has been placed. The tip projects obliquely over the mediastinum, and this does not appear to project over the internal jugular vein. Venous positioning is not confirmed. Clinical correlation will be essential. 2. Cardiomegaly with mild pulmonary vascular congestion. 3. Left basilar opacities there is an atelectasis versus a mild pneumonitis. Correlate clinically. ACT 112: Negative or not required by law. Electronically signed by: Isaac Morrissey M.D. 01/01/2024 11:56 AM Venous Doppler Study 01/13/24 13:44 US venous doppler upper extremity bilateral CLINICAL HISTORY: bilateral int jug and subclavian vein patency COMPARISON STUDY: None. FINDINGS: The bilateral internal jugular and subclavian veins are patent. No evidence for DVT. IMPRESSION: The bilateral internal jugular and subclavian veins are patent. ACT 112: Negative or not required by law. Electronically signed by: Kevin France M.D. 01/14/2024 7:37 AM 12/30/23 22:55 CT stones [CT abd pelvis wo con] Stat 12/31/23 FL retrograde includes kub Routine 01/01/24 09:[address] [CT head/brain wo con] Urgent 01/01/24 10:38 US point of care ultrasound Urgent 01/13/24 13:44 US venous duplex arm [US venous doppler UE BI] Routine 01/14/24 07:16 EV cvc insrt tunnel wo prt/chief investment officer Routine US EV guide vascular access Routine Pending Results Patient Have Any Pending Studies at Discharge: No Discharge Instructions Given to Patient (Per Discharging Provider) PLEASE REFER TO YOUR NEW MEDICATION LIST AND FOLLOW INSTRUCTIONS CAREFULLY. YOUR NEW MEDICATIONS INCLUDE: Nifedipine-improved blood pressure control Lokelma-to regulate high potassium levels Levothyroxine-for low thyroid hormone level Reduce insulin glargine to 10 units in the morning. Reduce insulin aspart to 6 units 3 times a day. Notify provider of BG values persistently above 180 or below 80. PLEASE CALL YOUR PRIMARY CARE PHYSICIAN OR RETURN TO THE ER IF WITH WORSENING OF SYMPTOMS, INCLUDING Fever/ chills, abdominal pain, nausea vomiting, problems with urination, diarrhea, etc. FOLLOW UP WITH PRIMARY CARE PHYSICIAN OUTLINED ABOVE. FOLLOW-UP WITH UROLOGIST DR. KATHLEEN LIVINGSTON IN 1 WEEK TO DISCUSS URETERAL STENT REMOVAL. PLEASE CONTACT HIS OFFICE, CONTACT INFORMATION OUTLINED ABOVE. Total Time Total Time Spent Total Time Spent (In Minutes): 45 minutes
[2024-01-15 15:58] LABS: Component 2 DNR; Source RIGHT URETERAL STONE
== END 2024-01-14 18:50 | disposition home or self-care (01) | DRG 853 ==
LOC: ED 20:37 → SUATTDRO 12-31 02:58 → EDINP 12-31 02:58 → 2N 12-31 17:47 → 1E 01-01 10:23 → 2S 01-05 22:13

== ENCOUNTER 2024-01-23 15:05 | Inpatient (IN) ==
--- OUTSIDE RECORDS SUMMARY | 2024-01-23 15:14 | External Medical Summary | Summary of Care ---
Author Name Unknown Organization [facility] Address [address] [place] [address] Phone [phone] Care Team Providers Care Assisted Living Home Director Name Role Phone Antonio Colon MD Primary Care Provider [phone] Reason for Visit * Reason Comments Outpatient Testing Encounter Details Date Type Department Care Team (Late st Contact Info) Description 01/18/2024 3:30 PM EDT Laboratory Laboratory, [facility] [address] [place] [address] [facility] [address] [place] [address] Acquired hypothyroidism Allergies No known active allergiesdocumented as of this encounter (statuses as of 01/18/2024) Medications Medication Sig Dispensed Refills Start Date End Date Status Co Q 10 10 MG Oral Capsule Take by mouth 1 Caplet Dosing Unit daily . 0 Active Aspirin 81 MG Oral Capsule Take by mouth 1 Caplet Dosing Unit daily . 0 Active Multi-Day Oral Tablet Take by mouth 1 Tablet in the morning. 0 Active Cohutta-3 1000 MG Oral Capsule Take 1 Capsule by mouth in the morning. 0 Active FreeStyle Carlos 2 Thatcher Device Use as directed . Use to [...] Hour (toPROL XL)Indications:Bass ry artery disease involving n[place] coronary artery of [place]ally heart without angina pectoris TAKE 1 TABLET BY MOUTH EVERY DAY IN THE MORNING 90 Tablet 3 10/05/2023 Active Prasugrel HCl 10 MG Oral Tablet (Effient)Indications: Coronary artery disease involving [place] coronary artery of [place] heart without angina pectoris TAKE 1 TABLET BY MOUTH EVERY DAY IN THE MORNING 90 Tablet 3 10/05/2023 Active Atorvastatin Calcium 40 MG Oral Tablet (Lipitor)Indications: Dyslipidemia, goal LDL below 70 TAKE 1 TABLET BY MOUTH EVERY DAY IN THE MORNING 90 Tablet 3 10/06/2023 Active Juluca 50-25 MG Oral Tablet Take 1 Tablet by mouth daily. 90 Tablet 3 12/01/2023 Active Pen [place] 32G X 4 MM Use as directed. Use to inject insulin 4 times daily E11.9 400 Each 3 12/02/2023 Active Levothyroxine Sodium 25 MCG Oral Tablet (Levoxyl) Take 1 Tablet by mouth daily first thing in the morning. 0 01/14/2024 Active NIFEdipine ER Osmotic Release 30 MG Oral Tablet Extended Release 24 Hour (Procardia XL) Take 1 Tablet by mouth in the morning. 0 01/14/2024 Active Lokelma 10 GM Oral Packet Take 1 Packet by mouth in the morning. 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 05/07/2023 Recurrent major depressive disorder, in full rem ission 05/05/2022 Overweight (BMI 25.0-29.9) 05/02/2022 Dyslipidemia 05/02/2022 Coronary artery disease invo lving nisqually coronary artery of [place] heart without angina pectoris 05/02/2022 Type 2 diabetes mellitus wit h hemoglobin A1c goal of less than 8.0% 05/02/2022 Kidney disease, chronic, stage IV (GFR 15-29 ml/ min) 05/02/2022 Old NC (myocardial infarction) 05/02/2022 Chronic systolic (congestive) heart failure 04/14 Left bundle branch block 05/02/2022 HTN, goal below 130/80 HIV positive documented as of this encounter (statuses as of 01/18/2024) Resolved Problems Problem Noted Date Diagnosed Date Resolved Date Chronic heart failure with p reserved ejection fraction 11/24/2022 02/04/2023 ARDS (adult respiratory distress syndrome) 06/17/2012 05/02/2022 Acute pancreatitis 06/14/2012 Acute respiratory distress 06/14/2012 0 05/02/2022 documented as of this encounter (statuses as of 01/18/2024) Immunizations Name Administration Dates Next Due COVID-19 mRNA, LNP-s, No Pre serve, 2-Dose Series (Moderna) 11/27/2020,10/24/2020 COVID-19, MRNA-LNP, 23-24, P F, 50 MCG/0.5 mL, 12 YRS AND ABOVE, IM (MODERNA-Spikevax) 08/05/2021 Covid-19, Mrna, Lnp-s, Pf, B ivalent, 30 Mcg, IM, 12 yrs and above ([facility] Parking) 09/09/2022 Hepatitis B, 20+ yrs 08/25/2017 Meningococcal [...] Care Team (Late st Contact Info) Description 01/31/2024 12:30 PM EDT Office Visit Orthopaedics [facility] [address] [place] [address] Quinton Dudley MD [address] [place] [address] 02/22/2024 1:30 PM EDT Office Visit Pharmacy, [facility] [address] [place] [address] [facility] [address] [place] [address] 02/25/2024 1:30 PM EDT Office Visit Cardiology, [facility] [address] [place] [address] Елена Alford PA-C [address] [place] [address] [place] [address] 04/11/2024 9:20 AM EDT Office Visit Family Practice [facility] [address] [place] [address] Antonio Colon MD [address] [place] [address] 05/23/2024 10:20 AM EDT Office Visit [facility] [address] [facility] [place] [address] Tesfaye Morris MD [address] [place] [address] Pending Results Name Type Priority Associated Diagnoses Date /Time TSH WITH FREE T4 IF INDICATED Lab Routine Acquired hypothyroidism 01/18/2024 3:24 PM EDT Scheduled Procedures Name Priority Associated Diagnoses Date/Ti me COLONOSCOPY FLEXIBLE PROXIMA L DIAGNOSTIC Recall History of colonic polyps Health Maintenance Due Date Last Done Comments Diabetic Eye Exam 1971 TSH 1971 Zoster Vaccines (1 of 2) 1972 Cologuard 1998 Fecal Occult Blood Test 1998 Sigmoidoscopy 1998 Hepatitis B (2 of 3 - Risk 3-dose series) 09/22/2017 08/25/2017 Pneumococcal Vaccine: 65+ Years (3 of 3 - PPSV23 or PCV20) 10/16/2018 08/21/2018, 07/23/2017, 07/20/2012 MENINGOCOCCAL (MENACTRA/MENVEO) (3 - Risk 2-dose series) 08/04/2022 08/04/2017, 02/03/2013 Nephrology Referral 08/12/2023 08/12/2022 HbA1c 11/07/2023 05/07/2023, 07/16, 10/02/2020, Additional history exists GFR 02/10/2024 08/12/2023, 04/14, 08/12/2022, Additional history exists Colonoscopy 02/20/2024 02/19/2023, 02/19/2023 Colorectal Cancer Screening 02/20/2024 Albumin/Creatinine Ratio 05/07/2024 05/07/2023, 05/0 11/2021 Hgb 05/07/2024 05/07/2023, 05/15, 05/07/2022, Additional history exists PTH 08/12/2024 08/12/2023, 07/16, 05/07/2022 Phosphate 08/12/2024 08/12/2023, 07/16, 05/07/2022, Additional history exists Diabetic Foot Exam 01/17/2025 01/18/2024, 11/24/2022 DTaP,Tdap,and Td Vaccines (2 - Td or Tdap) 07/23/2027 07/23/2017 AAA Screening Completed 01/21/2022, 01/29/2020 Hepatitis C Screening Completed 05/07/2022 COVID-19 Vaccine Completed 09/09/2022, , 11/27/2020, Additional history exists RETIRED - COLONOSCOPY-ANNUAL AGES 18-100 Discontinued 02/19/2023, 02/19/2023 Influenza Vaccine (FLU shot) Completed 08/12/2023, 09/09/2022, 06/19/2021, Additional history exists GARDASIL-HPV IMMUNIZATION SERIES Aged Out No longer eligible based on patient's age to complete this topic documented as of this encounter Medical Devices Not on filedocumented as of this encounter Visit Diagnoses Diagnosis Acquired hypothyroidism Unspecified hypothyroidism documented in this encounter Advance Directives Latest Code Status on File Code Status Date Activated Date Inactivated Comments Full Code 06/14/2012 6:26 PM 06/17/2012 7:43 PM This order reflects the patients wishes and were consensually agreed upon. Care Teams Assisted Living Home Director Relationship Specialty Start Date End Date Antonio Colon MD [address] [place] [address] PCP - General Family Medicine 02/12/22 documented as of this encounter
--- OUTSIDE RECORDS SUMMARY | 2024-01-23 15:14 | External Medical Summary | Summary of Care ---
Author Name Unknown Organization [facility] Address [address] [place] [address] Phone [phone] Care Team Providers Care Sales Marketing Coordinator Name Role Phone Antonio Colon MD Primary Care Provider [phone] Reason for Referral * Evaluate & Treat - Unlimited Visits (Within 10 days (routine)) - Authorized Specialty Diagnoses / Procedures Referred By Contact Referred To Contact Cardiovascular Medicine / Cardiology Diagnoses Chronic systolic (congestive) heart failure (HCC) Radhika Alberts DO [address] [place] [address] Referral ID Status Reason Start Date Expiration Date Visits Requested Visits Authorized [id number] Authorized Specialty Services Required 01/18/2024 [id number] Question Answer Referral Priority Within 10 days (routine) Where should this appointment be scheduled? [facility] To which of the following clinics are you referring your patient? General Cardiology Clinic Comments overdue * Evaluate & Treat - Unlimited Visits (Within 10 days (routine)) - Authorized Specialty Diagnoses / Procedures Referred By Contac t Referred To Contact HOME CARE / Home Care Diagnoses Kidney disease, chronic, stage IV (GFR 15-29 ml/min) (HCC) Chronic systolic (congestive) heart failure (HCC) Type 2 diabetes mellitus with hemoglobin A1c goal of less than 8.0% (HCC) Vision changes Hospital discharge follow-up Hip pain, right Diarrhea, unspecified type CKD, patient preferred treatment modality in-center hemodialysis Radhika Alberts DO [address] [place] [address] Referral ID Status Reason Start Date Expiration Date Visits Requested Visits Authorized [id number] Authorized Specialty Services Required 01/18/2024 [id number] Question Answer Referral Priority Within 10 days (routine) Where should this appointment be scheduled? [facility] Documentation of Ovok-rx-Mnfo Encounter Addendum Patient Name: Tad Silvestre I certify that this patient is under my care and that I, or a nurse practitioner or physician's educational assistant working with me, had a [id number] encounter that meets the physician cpci-wr-uinl encounter requirements with this patient on: 01/18/24 The encounter with the patient was in whole, or in part, for the following medical condition, which is the primary reason for home health care (List medical condition): Medication management I certify that, based on my findings, the following services are medically necessary home health services: Nursing and Physical Therapy To provide the following care/treatments: (All hospitalists not following the patient after discharge should complete this section): PTOT general care Primary Care Physician to follow home care plan of care after discharge: isaiah My clinical findings support the need for the above services because: taxing effort to get out of home Further, I certify that my clinical findings support that this patient is homebound (i.e. Absences from home require considerable and taxing effort and are for medical reasons or gnosticism services or infrequently or of short duration when for other reason) because: As noted above Physician Signature: Date of Signature: Physician Printed Name: Radhika Alberts DO * Evaluate & Treat - Unlimited Visits (Within 3 days (urgent)) - Authorized Specialty Diagnoses / Procedures Referred By Marques garg Referred To Contact Orthopaedic Surgery / Orthopedics Diagnoses Hip pain, right Radhika Alberts DO [address] [place] [address] Referral ID Status Reason Start Date Expiration Date Visits Requested Visits Authorized [id number] Authorized Specialty Services Required 01/18/2024 999 [id number] Question Answer Referral Priority Within 3 days (urgent) Where should this appointment be scheduled? [facility] What body part is the patient being seen for? Hip What condition is the patient being seen for? Arthritis including related infection Comments Will be going to urgent care walk in ortho * Evaluate & Treat - Unlimited Visits (Within 10 days (routine)) - Authorized Specialty Diagnoses / Procedures Referred By Marques garg Referred To Contact Optometry Diagnoses Vision changes Radhika Alberts DO [address] [place] [address] Referral ID Status Reason Start Date Expiration Date Visits Requested Visits Authorized [id number] Authorized Specialty Services Required 01/18/2024 [id number] Question Answer Referral Priority Within 10 days (routine) Where should this appointment be scheduled? [facility] Referring for: Optometry Conditions Optometry Conditions Diabetic Eye Exam without Retinopathy Reason for Visit * Reason Onset Date Comments Hospital Follow-Up Pt here for h ospital f/u apt, Hospital Follow-Up 01/18/2024 Routine Exam 01/18/2024 Encounter Details Date Type Department Care Team (Late st Contact Info) Description 01/18/2024 2:00 PM EDT Office Visit Family Practice [facility] [address] [place] [address] Radhika Alberts DO [address] [place] [address] Type 2 diabetes mellitus with hemoglobin A1c goal of less than 7.0% ([facility])*; Kidney disease, chronic, stage IV (GFR 15-29 ml/min) (HCC); Chronic systolic (congestive) heart failure (HCC); Type 2 diabetes mellitus with hemoglobin A1c goal of less than 8.0% ([facility]); Vision changes; Hospital discharge follow-up; Hip pain, right; Acquired hypothyroidism; Diarrhea, unspecified type; CKD, patient preferred treatment modality in-center hemodialysis; Nephrolithiasis Allergies No known active allergiesdocumented as of [...] 1 Tablet in the morning. 0 Active Panora-3 1000 MG Oral Capsule Take 1 Capsule by mouth in the morning. 0 Active FreeStyle Carlos 2 Quentin Device Use as directed . Use to [...] disease) stage 4, GFR 15-29 ml/min ([facility]) TAKE 1 CAPSULE (0.5 MCG) BY MOUTH IN THE MORNING. 90 Capsule 5 09/15/2023 Active Metoprolol Succinate ER 25 MG Oral Tablet Extended Release 24 Hour (toPROL XL)Indications:Bass ry artery disease involving circle coronary artery of circle heart without angina pectoris TAKE 1 TABLET BY MOUTH EVERY DAY IN THE MORNING 90 Tablet 3 10/05/2023 Active Prasugrel HCl 10 MG Oral Tablet (Effient)Indications: Coronary artery disease involving circle coronary artery of circle heart without angina pectoris TAKE 1 TABLET BY MOUTH EVERY DAY IN THE MORNING 90 Tablet 3 10/05/2023 Active Atorvastatin Calcium 40 MG Oral Tablet (Lipitor)Indications: Dyslipidemia, goal LDL below 70 TAKE 1 TABLET BY MOUTH EVERY DAY IN THE MORNING 90 Tablet 3 10/06/2023 Active Juluca 50-25 MG Oral Tablet Take 1 Tablet by mouth daily. 90 Tablet 3 12/01/2023 Active Pen Mikana 32G X 4 MM Use as directed. [...] Dyslipidemia 05/02/2022 Coronary artery disease invo lving circle coronary artery of circle heart without angina pectoris 05/02/2022 Type 2 [...] 30 Mcg, IM, 12 yrs and above ([employer]) 09/09/2022 Hepatitis B, 20+ yrs 08/25/2017 Meningococcal [...] Sign Reading Time Taken Comments Blood Pressure 122/72 01/18/2024 2:11 PM EDT Pulse 72 01/18/2024 2:11 PM EDT Temperature 36.1 C (97 F) 01/18/2024 2:11 PM EDT Respiratory Rate 16 01/18/2024 2:11 PM EDT Oxygen Saturation - - Inhaled Oxygen Concentration - - Weight 73.9 kg (163 lb) 01/18/2024 2:11 PM EDT Height 175.3 cm (5' 9") 01/18/2024 2:11 PM EDT Body Mass Index 24.07 01/18/2024 2:11 PM EDT documented in this encounter Progress Notes * Madeleine Stapleton LPN - 01/18/2024 2:40 PM EDT Socks and Shoes Removed for Annual Diabetic Foot Screening RIGHT FOOT: No Reddened, Cracking, Or Open Areas Noted. RIGHT Dorsalis Pedis Pulse: Palpable RIGHT Posterior Tibial Pulse: Palpable RIGHT Monofilament:Patient reports feeling monofilament pressure on plantar surface of foot LEFT FOOT: No Reddened, Cracking or Open Areas Noted. LEFT Dorsalis Pedis Pulse: Palpable LEFT Posterior Tibial Pulse: Palpable LEFT Monofilament:Patient reports feeling monofilament pressure on plantar surface of foot Do you need diabetic shoes: No * Radhika Alberts DO - 01/18/2024 2:06 PM EDT Subjective: Tad Silvestre is a 68 year old male. No chief complaint on file. There are no exam notes on file for this visit. HPI: This is a 68 year old male with PMHx as below presents with hospital follow up Admitted 12/31/23 Discharged 01/14/24 Returned to ER 01/14 with bleeding dialysis port - is to follow up with vascular Prior to admission abd pain, watery/bloody diarrhea, bilious emesis, flank pain. Admitted [facility] - nephrology consulted, urology placed stent 2/ stones. Femoral dialysis catheter placed 12/31 and continues with HD. [place] first once since hospital. Septic shock - resolved - urosepsis? But also diarrhea and lesion on L foot. ID consulted due to setting of HIV Kidney stones - urology placed stent 12/30 Diarrhea/enteritis -ID recommended GI consult. Loman done 01/06. Diarrhea resolved. Chronic anemia L foot injury - podiatry consulted - Hypothyroidism - started levothyroxine recheck TSH 1 mo Systolic HF - chronic overdue to see cardiology DM2 - insulin required Follow up: Nifedipine - improved BP Lokelma - regulate high K Levothyroxine - new Insulin glargine reduced to 10units in morning; aspart reduced to 6 units TID. MTM following Needs to see urology for stent removal Having R hip pain - advised on urgent care ortho PMHx CKD now on HD Systolic HF EF45% TTE 2022 DM Health Maintenance Due Topic Date Due Diabetic Eye Exam Never done Zoster Vaccines (1 of 2) Never done Hepatitis B (2 of 3 - Risk 3-dose series) 09/22/2017 Pneumococcal Vaccine: 65+ Years (3 of 3 - PPSV23 or PCV20) 10/16/2018 MENINGOCOCCAL (MENACTRA/MENVEO) (3 - Risk 2-dose series) 08/04/2022 Nephrology Referral 08/12/2023 HbA1c 11/07/2023 Diabetic Foot Exam 11/25/2023 Colorectal Cancer Screening 02/20/2024 Patient Active Problem List Diagnosis Code HTN, goal below 130/80 I10 HIV positive (HCC) Z21 Overweight (BMI 25.0-29.9) E66.3 Dyslipidemia E78.5 Coronary artery disease involving circle coronary artery of circle heart without angina pectoris I25.10 Type 2 diabetes mellitus with hemoglobin A1c goal of less than 8.0% (HCC) E11.9 Kidney disease, chronic, stage IV (GFR 15-29 ml/min) ([facility]) N18.4 Old CA (myocardial infarction) I25.2 Chronic systolic (congestive) heart failure ([facility]) I50.22 Left bundle branch block I44.7 Recurrent major depressive disorder, in full remission ([facility]) F33.42 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 Aspirin 81 MG Oral Capsule Take by mouth 1 Caplet Dosing Unit daily . Multi-Day Oral Tablet Take by mouth 1 Tablet in the morning. Panora-3 1000 MG Oral Capsule Take 1 Capsule by mouth in the morning. (Patient not taking: Reported on 12/01/2023) INXPOStyle Carlos 2 Quentin Device Use as directed . Use to test BG E10.65 1 Each 0 FreeStyle Carlos 2 Sensor Use as directed . Use one sensor every 14 days for blood sugar E10.65 1 Each 11 Sodium Bicarbonate 650 MG Oral Tablet Take 1 Tablet by mouth in the morning. (Patient not taking: Reported on 12/01/2023) Vitamin D-3 25 MCG (1000 UT) Oral [...] Tablet by mouth daily. 90 Tablet 3 Pen Mikana 32G X 4 MM Use as directed. Use to inject insulin 4 times daily E11.9 400 Each 3 No current facility-administered medications for this visit. 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 05/07/2023 HIV positive ([facility]) Hypertension Kidney disease, chronic, stage IV (GFR 15-29 ml/min) ([facility]) 05/02/2022 Left bundle branch block 05/02/2022 Old CA (myocardial infarction) 05/02/2022 Overweight (BMI 25.0-29.9) 05/02/2022 Recurrent major depressive disorder, in full remission ([facility]) 05/05/2022 Systolic and diastolic CHF, chronic ([facility]) 05/02/2022 Type 2 diabetes mellitus with hemoglobin A1c goal of less than 8.0% ([facility]) 05/02/2022 Past Surgical History: Procedure Laterality Date COLONOSCOPY, DIAGNOSTIC (RECTUM) N/A 02/19/2023 poor prep/nodular mucosa ascending colon/hemorrhoids/biopsies show adenomatous polyps, mild active inflammation/recall 1 year/Colonoscopy/[place] NONE Review of patient's allergies indicates: No Known Allergies Family History Problem Relation Age of Onset No Past Hx Father Heart Disorder Mother Neurological Disorder Mother Parkinson's, Alzheimer's Family Status Relation Status Fa (Not Specified) Mo (Not Specified) Social History Socioeconomic History Marital status: Single Spouse name: Not on file Number of children: Not on file Years of education: Not on file Highest education level: Not on file Occupational History Not on file Tobacco Use Smoking status: Former Current packs/day: 0.25 Average packs/day: 0.3 packs/day for 30.0 years (7.5 ttl pk-yrs) Types: Cigarettes Smokeless tobacco: Never Vaping Use [...] on file Housing Stability: Not on file Review of Systems: As per HPI all other ROS negative. Wt Readings from Last 3 Encounters: 12/01/23 81.2 kg (179 lb 1.9 oz) 08/12/23 83 kg (183 lb) 08/02/23 83.6 kg (184 lb 3.2 oz) Results for orders placed or performed in visit on 08/12/23 RENAL FUNCTION PANEL Result Value Ref Range BUN 45 (H) 6 - 20 mg/dL Creatinine 2.7 (H) 0.6 - 1.2 mg/dL Estimated Glomerular Filtration Rate 24 (L) >=60 mL/min Sodium 134 (L) 135 - 146 mmol/L Potassium 5.2 (H) 3.5 - 5.1 mmol/L Chloride 104 98 - 107 mmol/L CO2 20 (L) 22 - 32 mmol/L Anion Gap 10 7 - 15 mmol/L Glucose 216 (H) 70 - 120 mg/dL Calcium 9.5 8.4 - 10.2 mg/dL Albumin 4.1 3.8 - 5.0 g/dL Phosphorus 3.5 2.5 - 4.8 mg/dL PTH Result Value Ref Range PTH 140 (H) 15 - 65 pg/mL 25-HYDROXY VITAMIN D Result Value Ref Range 25-Hydroxy Vitamin D 29 >19 ng/mL OBJECTIVE: Physical Exam: There were no vitals taken for this visit. General: alert, healthy, and no distress Head: Normocephalic, No masses, lesions, tenderness or abnormalities Heart: regular rate & rhythm, no murmur, and no gallops Lungs: lungs clear to auscultation Abdomen: abdomen soft, normal bowel sounds, no masses or organomegaly, and mild generalized TTP Extremities: no joint deformities, effusion, or inflammation Skin: portacath R upper check - some blood under dressing Type 2 diabetes mellitus with hemoglobin A1c goal of less than 7.0% ([facility]) (Primary) - DIABETES FOOT EXAM Kidney disease, chronic, stage IV (GFR 15-29 ml/min) ([facility]) - HOME HEALTH REFERRAL OP Chronic systolic (congestive) heart failure ([facility]) - HOME HEALTH REFERRAL OP - CARDIOLOGY REFERRAL OP Type 2 diabetes mellitus with hemoglobin A1c goal of less than 8.0% ([facility]) - HOME HEALTH REFERRAL OP Vision changes - ADULT/PEDS OPHTHALMOLOGY/OPTOMETRY REFERRAL OP - HOME HEALTH REFERRAL OP Hospital discharge follow-up - DISCH MED RECON CUR MED LIS - HOME HEALTH REFERRAL OP Hip pain, right - ORTHOPAEDICS REFERRAL OP - HOME HEALTH REFERRAL OP Acquired hypothyroidism - TSH WITH FREE T4 IF INDICATED; Future; Expected date: 01/18/2024 Diarrhea, unspecified type - HOME HEALTH REFERRAL OP CKD, patient preferred treatment modality in-center hemodialysis - HOME HEALTH REFERRAL OP Nephrolithiasis CM will assist with urology, vascular and HH follow ups Radhika Alberts DO documented in this encounter Plan of Treatment Upcoming Encounters Date Type Department Care Team (Late st Contact Info) Description 02/22/2024 1:30 PM EDT Office Visit Pharmacy, [facility] [address] [facility] [place] [address] [facility] [address] [facility] [place] [address] 02/25/2024 1:30 PM EDT Office Visit Cardiology, [facility] [address] [facility] [place] [address] Елена Alford PA-C [address] [place] [address] [place] [address] 04/11/2024 9:20 AM EDT Office Visit Family Practice [facility] [address] [facility] [place] [address] Antonio Colon MD [address] [facility] [place] [address] 05/23/2024 10:20 AM EDT Office Visit Nephrology, [facility] Snider [address] [place] [address] Tesfaye Morris MD [address] [place] [address] Scheduled Orders Name Type Priority Associated Diagnoses Orde r Schedule TSH WITH FREE T4 IF INDICATED Lab Routine Acquired hypothyroidism Expected: 01/18/2024 (Approximate), Expires: 01/17/2025 Scheduled Procedures Name Priority Associated Diagnoses Date/Ti me COLONOSCOPY FLEXIBLE PROXIMA L DIAGNOSTIC Recall History of colonic polyps Scheduled Referrals Name Type Priority Associated Diagnoses Orde r Schedule ADULT/PEDS OPHTHALMOLOGY/OPTOMET RY REFERRAL OP Referral Within 10 days (routine) Vision changes Ordered: 01/18/2024 ORTHOPAEDICS REFERRAL OP Referral Within 3 days (urgent) Hip pain, right Ordered: 01/18/2024 HOME HEALTH REFERRAL OP Referral Within 10 days (routine) Kidney disease, chronic, stage IV (GFR 15-29 ml/min) (HCC) Chronic systolic (congestive) heart failure (HCC) Type 2 diabetes mellitus with hemoglobin A1c goal of less than 8.0% (HCC) Vision changes Hospital discharge follow-up Hip pain, right Diarrhea, unspecified type CKD, patient preferred treatment modality in-center hemodialysis Ordered: 01/18/2024 CARDIOLOGY REFERRAL OP Referral Within 10 days (routine) Chronic systolic (congestive) heart failure (HCC) Ordered: 01/18/2024 Health Maintenance Due Date Last Done Comments [...] with hemoglobin A1c goal of less than 7.0% (HCC)- Primary Kidney disease, chronic, stage IV (GFR 15-29 ml/min) (HCC) Chronic kidney disease, Stage IV (severe) Chronic systolic (congestive) heart failure (HCC) Type 2 diabetes mellitus with hemoglobin A1c goal of less than 8.0% (HCC) Vision changes Unspecified visual disturbance Hospital discharge follow-up Other follow-up examination Hip pain, right Pain in joint, pelvic region and thigh Acquired hypothyroidism Unspecified hypothyroidism Diarrhea, unspecified type CKD, patient preferred treatment modality in-center hemodialysis Nephrolithiasis Calculus of kidney documented in this encounter Advance Directives Latest Code Status on File Code Status Date Activated Date Inactivated Comments Full Code 06/14/2012 6:26 PM 06/17/2012 7:43 PM This order reflects the patients wishes and were consensually agreed upon. Care Teams Sales Marketing Coordinator Relationship Specialty Start Date End Date Isaiah, Antonio Simeon, MD [address] [place] [address] PCP - General Family Medicine 02/12/22 documented as of this encounter
--- OUTSIDE RECORDS SUMMARY | 2024-01-23 15:14 | External Medical Summary ---
Author Name Unknown Address Unknown Organization K01:[facility] [place] [address] [facility] [address] Laboratory Report Ordering Provider Test Date Status ANNA DOUGLAS 01/18/2024 15:24:26 Final Observation Date Value Abnormality Reference (Units ) Status TSH 01/18/2024 15:24:26 2.08 0.27-4.20 (uIU/mL) Final Performing Location [facility] - [address] [place] [place] [address]
--- OUTSIDE RECORDS SUMMARY | 2024-01-23 15:14 | External Medical Summary | Summary of Care ---
Author Name Unknown Organization [facility] Address [address] [place] [address] Phone [phone] Care Team Providers Care Coding Machine Operator Name Role Phone Antonio Colon MD Primary Care Provider [phone] [phone] Reason for Referral * Evaluate & Treat - Unlimited Visits (Within 10 days (routine)) - Authorized Specialty Diagnoses / Procedures Referred By Marques garg Referred To Contact Gastroenterology Diagnoses Diarrhea, unspecified type Shirley Roche PA-C [address] [facility] [place] [address] Referral ID Status Reason Start Date Expiration Date Visits Requested Visits Authorized [id number] Authorized Specialty Services Required 01/20/2024 999 999 Question Answer Referral Priority Within 10 days (routine) Where should this appointment be scheduled? [facility] For what condition is the patient being referred? All Gastro Conditions Comments Chronic diarrhea issues recent colonoscopy with no findings Reason for Visit * Reason Onset Date Comments Test Results 01/20/2024 Encounter Details Date Type Department Care Team (Late st Contact Info) Description 01/20/2024 Telephone NephrologyMadeline [address] [place] [address] Shirley Roche PA-C [address] [facility] [place] [address] Test Results Allergies No known active allergiesdocumented as of this encounter (statuses as of 01/20/2024) Medications Medication Sig Dispensed Refills Start Date End Date Status Co Q 10 10 MG Oral Capsule Take by mouth 1 Caplet Dosing Unit daily . 0 Active Aspirin 81 MG Oral Capsule Take by mouth 1 Caplet Dosing Unit daily . 0 Active Multi-Day Oral Tablet Take by mouth 1 Tablet in the morning. 0 Active FreeStyle Carlos 2 Kaycee Device Use as directed . Use to test BG E10.65 1 Each 0 02/13/2022 Active FreeStyle Carlos 2 Sensor Use as directed . Use one sensor every 14 days for blood sugar E10.65 1 Each 11 02/13/2022 Active Vitamin D-3 25 MCG (1000 UT) [...] Hour (toPROL XL)Indications:Cor onary artery disease involving [place] coronary artery of [place] heart without angina pectoris TAKE 1 TABLET BY MOUTH EVERY DAY IN THE MORNING 90 Tablet 3 10/05/2023 Active Prasugrel HCl 10 MG Oral Tablet (Effient)Indicatio ns:Coronary artery disease involving [place] coronary artery of [place] heart without angina pectoris TAKE 1 TABLET BY MOUTH EVERY DAY IN THE MORNING 90 Tablet 3 10/05/2023 Active Atorvastatin Calcium 40 MG Oral Tablet (Lipitor)Indicatio ns:Dyslipidemia, goal LDL below 70 TAKE 1 TABLET BY MOUTH EVERY DAY IN THE MORNING 90 Tablet 3 10/06/2023 Active Juluca 50-25 MG Oral Tablet Take 1 Tablet by mouth daily. 90 Tablet 3 12/01/2023 Active Pen [place] 32G X 4 MM Use as directed. [...] by mouth in the morning. 0 01/14/2024 01/20/2024 Discontinue d(Patient preference/ discontinua tion) Lokelma 10 GM Oral Packet Take 1 Packet by mouth in the morning. 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 05/07/2023 Recurrent major depressive disorder, in full rem ission 05/05/2022 Overweight (BMI 25.0-29.9) 05/02/2022 Dyslipidemia 05/02/2022 Coronary artery disease invo lving [place] coronary artery of [place] heart without angina pectoris 05/02/2022 Type 2 diabetes mellitus wit h hemoglobin A1c goal of less than 8.0% 05/02/2022 Kidney disease, chronic, stage IV (GFR 15-29 ml/ min) 05/02/[address] (myocardial infarction) 05/02/2022 Chronic systolic (congestive) heart failure 04/14 Left bundle branch block 05/02/2022 HTN, goal below 130/80 HIV positive documented as of this encounter (statuses as of 01/20/2024) Resolved Problems Problem Noted Date Diagnosed Date Resolved Date Chronic heart failure with p reserved ejection fraction 11/24/2022 02/04/2023 ARDS (adult respiratory distress syndrome) 06/17/2012 05/02/2022 Acute pancreatitis 06/14/2012 Acute respiratory distress 06/14/2012 0 05/02/2022 documented as of this encounter (statuses as of 01/20/2024) Immunizations Name Administration Dates Next Due COVID-19 mRNA, LNP-s, No Pre serve, 2-Dose Series (Moderna) 11/27/2020,10/24/2020 COVID-19, MRNA-LNP, 23-24, P F, 50 MCG/0.5 mL, 12 YRS AND ABOVE, IM (MODERNA-Spikevax) 08/05/2021 Covid-19, Mrna, Lnp-s, Pf, B ivalent, 30 Mcg, IM, 12 yrs and above (Pfizer) 09/09/2022 Hepatitis B, 20+ yrs 08/25/2017 Meningococcal [...] standard drink = 0.6 oz pure alcohol) PHQ-2 Answer Date Recorded PHQ Adult Total Score 1 01/18/2024 Hunger Vital Sign Answer Date Recorded Within the past 12 months, y ou worried that your food would run out before you got the money to buy more. Never true 01/18/20 24 Within the past 12 months, t he food you bought just didn't last and you didn't have money to get more. Never true 01/18/2024 Sex and Gender Information Value Date Recorded Sex Assigned at Not on file Gender Identity Not on file Sexual Orientation Not on file Job Start Date Occupation Industry Not on file Not on file Not on file documented as of this encounter Miscellaneous Notes * Addendum Note - Any Talbert RN - 01/20/2024 1:54 PM EDTAddended by: ANY TALBERT on: 01/20/2024 01:54 PM Modules accepted: Orders * Telephone Encounter - Any Talbert RN - 01/20/2024 1:52 PM EDT Te with pt regarding discontinuing Nifedipine and Lokelma. He states that his Dialysis went well and he is aware that a GI referral was made. * Telephone Encounter - Shirley Roche PA-C - 01/20/2024 1:24 PM EDT Please contact patient and advise him to discontinue Nifedipine 30 mg and lokelma until further advise Referral was placed for hi to follow up with GI Shirley Roche PA-C documented in this encounter Plan of Treatment Upcoming Encounters Date Type Department Care Team (Late st Contact Info) Description 01/31/2024 12:30 PM EDT Office Visit Orthopaedics [facility] [address] [facility] [place] [address] Quinton Dudley MD [address] [facility] [place] [address] 02/22/2024 1:30 PM EDT Office Visit Pharmacy, [facility] [address] [place] [address] [facility] [place] [address] 02/25/2024 1:30 PM EDT Office Visit Cardiology, [facility] [address] [facility] [place] [address] Елена Alford PA-C [address] [place] [address] 04/11/2024 9:20 AM EDT Office Visit Family Practice [facility] [address] [facility] [place] [address] Antonio Colon MD [address] [facility] [place] [address] 05/23/2024 10:20 AM EDT Office Visit NephMadeline enciso [address] [place] [address] Tesfaye Morris MD [address] [place] [address] Scheduled Procedures Name Priority Associated Diagnoses Date/Ti me COLONOSCOPY FLEXIBLE PROXIMA L DIAGNOSTIC Recall History of colonic polyps Scheduled Referrals Name Type Priority Associated Diagnoses Order Schedule ADULT GASTROENTEROLOGY REFERRAL OP Referral Within 10 days (routine) Diarrhea, unspecified type Ordered: 01/20/2024 Health Maintenance Due Date Last Done Comments [...] Cancer Screening 02/20/2024 Albumin/Creatinine Ratio 05/07/2024 05/07/2023, 050 11/2021 Hgb 05/07/2024 05/07/2023, 05/15, 05/07/2022, Additional history exists PTH 08/12/2024 08/12/2023, 07/16, 05/07/2022 Phosphate 08/12/2024 08/12/2023, 07/16, 05/07/2022, Additional history exists Diabetic Foot Exam 01/17/2025 01/18/2024, 11/24/2022 TSH 01/17/2025 01/18/2024 DTaP,Tdap,and Td Vaccines (2 - Td or [...] as of this encounter Visit Diagnoses Diagnosis Diarrhea, unspecified type- Primary documented in this encounter Advance Directives Latest Code Status on File Code Status Date Activated Date Inactivated Comments Full Code 06/14/2012 6:26 PM 06/17/2012 7:43 PM This order reflects the patients wishes and were consensually agreed upon. Healthcare Agents on File Name Relationship Healthcare Agent Relationshi p Communication Lorin Silvestre [facility] Health Care Repr esentative (appointed verbally by patient or by statute hierarchy) Care Teams Coding Machine Operator Relationship Specialty Start Date End Date Antonio Colon MD [address] [place] [address] PCP - General Family Medicine 02/12/22 documented as of this encounter
--- OUTSIDE RECORDS SUMMARY | 2024-01-23 15:14 | External Medical Summary | Summary of Care ---
Author Name Unknown Organization [facility] Address [address] [place] [address] Phone [phone] Care Team Providers Care Guard Dance Hall Name Role Phone Antonio Colon MD Primary Care Provider [phone] Reason for Referral * Evaluate & Treat - Unlimited Visits (Within 10 days (routine)) - Authorized Specialty Diagnoses / Procedures Referred By Marques garg Referred To Contact Gastroenterology Diagnoses Diarrhea, unspecified type Shirley Roche PA-C [address] [facility] [place] [address] Referral ID Status Reason Start Date Expiration Date Visits Requested Visits Authorized [id number] Authorized Specialty Services Required 01/20/2024 999 999 [...] 01/20/2024 Telephone NephrologyMadeline [address] [place] [address] Shirley Roche PA-C [address] [facility] [place] [address] Test Results Allergies No known active allergiesdocumented [...] the morning. 0 Active FreeStyle Carlos 2 [place] Device Use as directed . Use to [...] Hour (toPROL XL)Indications:Cor onary artery disease involving [place] coronary artery of [place] heart without angina pectoris TAKE 1 TABLET BY MOUTH EVERY DAY IN THE MORNING 90 Tablet 3 10/05/2023 Active Prasugrel HCl 10 MG Oral Tablet (Effient)Indicatio ns:Coronary artery disease involving [place] coronary artery of [place]kl[place] heart without angina pectoris TAKE 1 TABLET BY MOUTH EVERY DAY IN THE MORNING 90 Tablet 3 10/05/2023 Active Atorvastatin Calcium 40 MG Oral Tablet (Lipitor)Indicatio ns:Dyslipidemia, goal LDL below 70 TAKE 1 TABLET BY MOUTH EVERY DAY IN THE MORNING 90 Tablet 3 10/06/2023 Active Juluca 50-25 MG Oral Tablet Take 1 Tablet by mouth daily. 90 Tablet 3 12/01/2023 Active Pen [place] 32G X 4 MM Use as directed. [...] Dyslipidemia 05/02/2022 Coronary artery disease invo lving [place]kl[place] coronary artery of ekl[place] heart without angina pectoris 05/02/2022 Type 2 diabetes mellitus wit h hemoglobin A1c goal of less than 8.0% 05/02/2022 Kidney disease, chronic, stage IV (GFR 15-29 ml/ min) 05/02/2022 Old [place] (myocardial infarction) 05/02/2022 Chronic systolic (congestive) heart [...] 01/31/2024 12:30 PM EDT Office Visit Orthopaedics [facility] [address] [facility] [place] [address] Quinton Dudley MD [address] [facility] [place] [address] 02/22/2024 1:30 PM EDT Office Visit Pharmacy, [facility] [address] [place] [address] [facility] [place] [address] 02/25/2024 1:30 PM EDT Office Visit Cardiology, [facility] [address] [facility] [place] [address] Елена Alford PA-C [address] [place] [address] 04/11/2024 9:20 AM EDT Office Visit Family Practice [facility] [address] [facility] [place] [address] Antonio Colon MD [address] [facility] [place] [address] 05/23/2024 10:20 AM EDT Office Visit NephMadeline enciso [address] [place] [address] Tesfaye Morris MD [address] [place] [address] Scheduled Procedures Name Priority Associated Diagnoses Date/Ti [...] Healthcare Agent Relationshi p Communication Lorin Silvestre [facility] Health Care Repr esentative (appointed verbally by patient or by statute hierarchy) Care Teams Guard Dance Hall Relationship Specialty Start Date End Date Antonio Colon MD [address] [place] [address] PCP - General Family Medicine 02/12/22 documented as of this encounter
--- OUTSIDE RECORDS SUMMARY | 2024-01-23 15:14 | External Medical Summary | Summary of Care ---
Author Name Unknown Organization [facility] Address [address] [place] [address] Phone [phone] Care Team Providers Care Bail Bondsman Name Role Phone Antonio Colon MD Primary Care Provider [phone] [phone] Reason for Visit * Reason Onset Date Comments Follow Up 01/19/2024 Encounter Details Date Type Department Care Team (Late st Contact Info) Description 01/19/2024 Telephone Family Practice [facility] [address] [facility] [address] Radhika Alberts DO [address] [facility] [place] [address] Follow Up Allergies No known active allergiesdocumented as of this encounter (statuses as of 01/19/2024) Medications Medication Sig Dispensed Refills Start Date End Date Status Co Q 10 10 MG Oral Capsule Take by mouth 1 Caplet Dosing Unit daily . 0 Active Aspirin 81 MG Oral Capsule Take by mouth 1 Caplet Dosing Unit daily . 0 Active Multi-Day Oral Tablet Take by mouth 1 Tablet in the morning. 0 Active FreeStyle Carlos 2 [place] Device Use as directed . Use to [...] Hour (toPROL XL)Indications:Bass ry artery disease involving [place] coronary artery of mohegan heart without angina pectoris TAKE 1 TABLET BY MOUTH EVERY DAY IN THE MORNING 90 Tablet 3 10/05/2023 Active Prasugrel HCl 10 MG Oral Tablet (Effient)Indications: Coronary artery disease involving [place] coronary artery of mohegan heart without angina pectoris TAKE 1 TABLET BY MOUTH EVERY DAY IN THE MORNING 90 Tablet 3 10/05/2023 Active Atorvastatin Calcium 40 MG Oral Tablet (Lipitor)Indications: Dyslipidemia, goal LDL below 70 TAKE 1 TABLET BY MOUTH EVERY DAY IN THE MORNING 90 Tablet 3 10/06/2023 Active Juluca 50-25 MG Oral Tablet Take 1 Tablet by mouth daily. 90 Tablet 3 12/01/2023 Active Pen [place] 32G X 4 MM Use as directed. 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 05/07/2023 Recurrent major depressive disorder, in full rem ission 05/05/2022 Overweight (BMI 25.0-29.9) 05/02/2022 Dyslipidemia 05/02/2022 Coronary artery disease invo lving mohegan coronary artery of mohegan heart without angina pectoris 05/02/2022 Type 2 diabetes mellitus wit h hemoglobin A1c goal of less than 8.0% 05/02/2022 Kidney disease, chronic, stage IV (GFR 15-29 ml/ min) 05/02/2022 Old [place] (myocardial infarction) 05/02/2022 Chronic systolic (congestive) heart failure 04/14 Left bundle branch block 05/02/2022 HTN, goal below 130/80 HIV positive documented as of this encounter (statuses as of 01/19/2024) Resolved Problems Problem Noted Date Diagnosed Date Resolved Date Chronic heart failure with p reserved ejection fraction 11/24/2022 02/04/2023 ARDS (adult respiratory distress syndrome) 06/17/2012 05/02/2022 Acute pancreatitis 06/14/2012 Acute respiratory distress 06/14/2012 0 05/02/2022 documented as of this encounter (statuses as of 01/19/2024) Immunizations Name Administration Dates Next Due COVID-19 mRNA, LNP-s, No Pre serve, 2-Dose Series (Moderna) 11/27/2020,10/24/2020 COVID-19, MRNA-LNP, 23-24, P F, 50 MCG/0.5 mL, 12 YRS AND ABOVE, IM (MODERNA-Spikevax) 08/05/2021 Covid-19, Mrna, Lnp-s, Pf, B ivalent, 30 Mcg, IM, 12 yrs and above ([employer]) 09/09/2022 Hepatitis B, 20+ yrs 08/25/2017 Meningococcal [...] encounter Miscellaneous Notes * Telephone Encounter - Chetna Lopez LPN - 01/19/2024 1:27 PM EDT Pt aware. * Telephone Encounter - Radhika Alberts DO - 01/19/2024 12:14 PM EDT TSH normal - was to have been done in 1 month Would advise to further discuss with PCP to see if recheck would be warranted since he was just starting on levothyrxoine by [facility] Thank you documented in this encounter Plan of Treatment Upcoming Encounters Date Type Department Care Team (Late st Contact Info) Description 01/31/2024 12:30 PM EDT Office Visit Orthopaedics [facility] [address] [place] [address] Quinton Dudley MD [address] [place] [place] [address] 02/22/2024 1:30 PM EDT Office Visit Pharmacy, [facility] [address] [facility] [place] [address] [facility] [place] [address] 02/25/2024 1:30 PM EDT Office Visit Cardiology, [facility] [place] [address] Елена Alford PA-C [address] [place] [address] [place] [address] 04/11/2024 9:20 AM EDT Office Visit Family Practice [facility] [place] [address] Antonio Colon MD [address] [place] [address] 05/23/2024 10:20 AM EDT Office Visit Nephrology, [facility] [address] [facility] [place] [address] Tesfaye Morris MD [address] [place] [address] Scheduled Procedures Name Priority Associated Diagnoses Date/Ti [...] Healthcare Agent Relationshi p Communication Lorin Silvestre [facility] Health Care Repr esentative (appointed verbally by patient or by statute hierarchy) Care Teams Bail Bondsman Relationship Specialty Start Date End Date Antonio Colon MD [address] [place] [address] PCP - General Family Medicine 02/12/22 documented as of this encounter
--- NOTE | 2024-01-23 15:43 | Emergency Department Note ---
Impression & Plan Acute GI bleeding ED Provider Note HISTORY OF PRESENT ILLNESS: Patient is a 68-year-old male presenting with bright red blood per rectum and dizziness. Patient reports that starting 36 hours ago, he noticed dark discoloration of his stool and bright red blood in the toilet bowl. He reports his bleeding has continued. He states that in the last 24 hours, he has had significant episodes of lightheadedness and dizziness, feeling like he is going to pass out. He states that he had difficulties ambulating today secondary to his lightheadedness and dizziness. He also reports feeling very short of breath with any sort of exertion. He is a hemodialysis patient and gets hemodialysis Wednesday//Wednesday. His last session was yesterday. He reports that he had difficulties getting out of his dialysis chair and getting home yesterday secondary to his lightheadedness. He is complaining of nausea. Denies any abdominal pain or vomiting. Denies any chest pain or shortness of breath. ROS: as above PHYSICAL EXAM: Constitutional: Patient appears in no acute distress. HENT: Head: Normocephalic and atraumatic. Eyes: EOMI, PERRL Mouth/Throat: Mucous membranes moist. Neck: Trachea midline. Neck supple. Cardiovascular: Tachycardic with regular rhythm. No murmurs, rubs or gallops. Intact distal pulses. Pulmonary/Chest: No respiratory distress. Breath sounds clear and equal bilaterally. No wheezes or rales. Abdominal: Abdomen soft, no tenderness, rebound or guarding. Rectal: Chaperoned by nursing staff. Patient has no palpable hemorrhoids or masses. There was cricket melena and bright red blood on the glove. Hemoccult positive. Musculoskeletal: No edema, tenderness or deformity noted. Skin: Warm and dry. No rash, erythema, pallor or cyanosis Psychiatric: Appropriate mood and affect for situation. Neurological: Alert and keenly responsive. CN II-XII grossly intact, moving all extremities equally and fully. MDM: - Vitals signs showed hypotension and tachycardia. - History obtained via patient. History as above. - Chronic conditions affecting care: ESRD (on Wed//Wed dialysis); CAD (S.p PCI); HLD; DM-2; chronic systolic HF (EF 45% on TTE in 2022); LBBB; HTN; HIV - Differential diagnoses include, but are not limited to: bleeding peptic ulcer; diverticular bleed; hemorrhoidal bleed; anemia of chronic disease; ACS; pneumonia - Order placed for continuous cardiac monitoring. At this time, monitor showed rate of 88 bpm with normal sinus rhythm, per my interpretation. - External medical records reviewed. Discharge summary dated 01/13/2024 was reviewed. Patient has a history of colonic polyps/internal hemorrhoids. Patient was admitted at that time for watery diarrhea that turned bloody. He was found to have acute flare and transition to hemodialysis. - EKG interpreted by myself showed normal sinus rhythm. Rate 94 bpm. QT 414. No acute ischemic changes. Noted to have a left bundle branch block, that was present on an EKG from 01/15/2024. - Laboratory workup interpreted by myself showed normal WBC; anemia (Hgb 7.4 - down from 11.6 on 01/15/24); stable electrolytes; ESRD (Cr 3.7); slight transaminitis (AST 86; ALT 60); normal troponin; normal lipase; normal PT/INR - Appears baseline hemoglobin is around 13 per documentation. - Patient typed and crossed - Given 1L NS in ER. Repeat blood pressure has improved. - CXR ordered. - Though anemic, he does not require transfusion at this time. Will admit to hospitalist for further H&H testing, as patient will likely need transfusion later today. - Discussion was had with disease case manager rn about patient's case and need for admission - Hospitalist consulted for admission - [facility] ASSESSMENT AND PLAN: Diagnosis: acute GI bleed Plan: admit Past Med/Surg History Medical History Septic shock History of kidney stones Osteoarthritis Chronic lower back pain History of pancreatitis DM type 2 (diabetes mellitus, type 2) History of skin cancer [place] (hard of hearing) HLD (hyperlipidemia) History of myocardial infarction 2016 & 2019 Sleep apnea no device Diverticulosis GERD (gastroesophageal reflux disease) IBS (irritable bowel syndrome) Precancerous lesion rectal CAD (coronary artery disease) Per patient, stenting x 5 in 2017 and restenting of 1 vessel performed in July 2020 Depression CKD (chronic kidney disease), stage IV follows with [facility] Nephrology HIV (human immunodeficiency virus infection) Surgical History S/P ureteral stent placement History of removal of ureteral stent History of cystoscopy History of colonoscopy History of cholecystectomy History of cardiac catheterization 2017 - stents 2020 -- restenting x 1. [facility] No pertinent past surgical history Family History Mother Heart disease Social History Smoking Status: Never smoker Tobacco Type: Cigarettes Second Hand Exposure: No; Do You Dip or Chew Tobacco: No; Hx Alcohol Use: Yes Alcohol type: beer, wine and hard liquor Alcohol Intake Frequency: Monthly or Less Hx Substance Use: No Preferred Language: Syrian Communication Ability: Effective Loss Prevention Operations Manager Required: No Beliefs That Will Affect Care: None Current Living Situation: Alone Feels Safe at Home: No Is there a partner from a previous relationship who is making you feel unsafe now?: No Assistive Devices: None Allergies Allergies Allergy/AdvReac Type Severity Reaction Status Date / Time No Known Allergies Allergy Verified 01/07/24 10:50 Home Meds Home Medications Medication Instructions Recorded Confirmed atorvastatin 40 mg tablet 40 mg PO QAM 01/06/22 12/30/23 dolutegravir 50 mg-rilpivirine 25 1 tab PO QAM 01/06/22 12/30/23 mg tablet (Juluca) fluoxetine 20 mg capsule 20 mg PO QAM 01/06/22 12/30/23 multivitamin 1 tab PO QAM 01/06/22 12/30/23 omega 8-rhf-nha-fish oil 1,000 mg 1 cap PO QAM 01/06/22 12/30/23 (120 mg-180 mg) capsule (Fish Oil) calcitriol 0.5 mcg capsule 0.5 mcg PO QAM 10/31/22 12/30/23 aspirin 81 mg tablet,delayed 81 mg PO DAILY 12/30/23 12/30/23 release cholecalciferol (vitamin D3) 25 25 mcg PO QAM 12/30/23 12/30/23 mcg (1,000 unit) capsule (Vitamin D3) coenzyme Q10 10 mg capsule (Co 10 mg PO DAILY 12/30/23 12/30/23 Q-10) metoprolol succinate 25 mg 25 mg PO QAM 12/30/23 12/30/23 tablet,extended release 24 hr Previous Rx's Medication Instructions Recorded insulin aspart U-100 100 unit/mL 6 unit (0.06 mL) subcut TIDM #0 mL 01/14/24 (3 mL) subcutaneous pen (Novolog FlexPen U-100 Insulin aspart) insulin glargine 100 unit/mL (3 10 unit (0.1 mL) subcut QAM #0 mL 01/14/24 mL) subcutaneous pen (Basaglar KwikPen U-100 Insulin) levothyroxine 25 mcg tablet 25 mcg PO DAILYBB 30 days #30 tabs 01/14/24 (Synthroid) nifedipine 30 mg tablet,extended 30 mg PO QAM 30 days #30 tabs 01/14/24 release 24 hr (Procardia XL) prasugrel 10 mg tablet 10 mg PO QAM #30 tabs 01/14/24 sodium zirconium cyclosilicate 10 10 g PO DAILY@1100 30 days #1 ea 01/14/24 gram oral powder packet (Lokelma) Results & Data (ED) Vital Signs Vital Signs - 24 hr 01/23/24 15:07 01/23/24 15:17 01/23/24 15:17 Temperature 36.1 C L Temperature Source Temporal Artery Scan Pulse Rate 110 H Pulse Rate [Apical] 93 H Pulse Rate from SpO2 Sensor Pulse Rhythm [Apical] Regular Pulse Strength [Apical] Normal Respiratory Rate 19 17 Respiratory Effort / Characteristics Non-Labored Spontaneous Respiratory Depth Normal Respiratory Pattern Regular Blood Pressure 90/65 L Blood Pressure [Right Arm] 115/69 Blood Pressure Mean 73 Blood Pressure Mean [Right Arm] 84 Blood Pressure Position [Right Arm] Semi-fowlers Pulse Oximetry 99 100 99 Oxygen Delivery Method Room Air Room Air Room Air Sepsis Recent Fever Within 48 Hours No Sepsis New/Unexplained Change in Mental Status N/A Sepsis Action Taken by Nursing No Action Required 01/23/24 15:46 01/23/24 16:00 01/23/24 16:05 Temperature Temperature Source Pulse Rate 94 H 89 88 Pulse Rate [Apical] Pulse Rate from SpO2 Sensor 94 H Pulse Rhythm [Apical] Pulse Strength [Apical] Respiratory Rate 15 20 Respiratory Effort / Characteristics Respiratory Depth Respiratory Pattern Blood Pressure 115/69 113/68 Blood Pressure [Right Arm] Blood Pressure Mean 84 83 Blood Pressure Mean [Right Arm] Blood Pressure Position [Right Arm] Pulse Oximetry 100 94 Oxygen Delivery Method Room Air Sepsis Recent Fever Within 48 Hours Sepsis New/Unexplained Change in Mental Status Sepsis Action Taken by Nursing 01/23/24 16:30 Temperature Temperature Source Pulse Rate 87 Pulse Rate [Apical] Pulse Rate from SpO2 Sensor Pulse Rhythm [Apical] Pulse Strength [Apical] Respiratory Rate 19 Respiratory Effort / Characteristics Respiratory Depth Respiratory Pattern Blood Pressure 113/66 Blood Pressure [Right Arm] Blood Pressure Mean 81 Blood Pressure Mean [Right Arm] Blood Pressure Position [Right Arm] Pulse Oximetry 94 Oxygen Delivery Method Room Air Sepsis Recent Fever Within 48 Hours Sepsis New/Unexplained Change in Mental Status Sepsis Action Taken by Nursing Laboratory Data 01/23/24 15:33 01/23/24 15:33 Lab Results 01/23/24 Range/Units 15:33 WBC 8.18 (4.8-10.8) K/ul RBC 2.71 L (4.70-6.10) M/uL Hgb 7.4 L (14.0-18.0) g/dl Hct 23.7 L (42.0-52.0) % MCV 87.5 (80.0-100.0) fL MCH 27.3 (25.0-34.0) pg MCHC 31.2 L (32.0-36.0) g/dL RDW Std Deviation 46.4 H (36.4-46.3) fL RDW Coeff of Meera 14.6 H (11.5-14.5) % Plt Count 275 (130-400) K/uL MPV 10.0 (9.4-12.4) fL Immature Gran % (Auto) 0.4 % Neut % (Auto) 52.3 % Lymph % (Auto) 37.3 % [place] % (Auto) 7.1 % Eos % (Auto) 2.3 % Baso % (Auto) 0.6 % Neut # (Auto) 4.28 (1.40-6.50) K/uL Lymph # (Auto) 3.05 (1.20-3.40) K/uL [place] # (Auto) 0.58 (0.11-0.59) K/uL Eos # (Auto) 0.19 (0.00-0.50) K/uL Baso # (Auto) 0.05 (0.00-0.20) K/uL Immature Gran # (Auto) 0.03 (0.01-0.20) K/uL RBC Morphology Unremarkable PT 10.9 (9.0-12.0) Seconds INR 1.0 (0.9-1.1) Sodium 135 L (136-145) mmol/L Potassium 4.1 (3.5-5.1) mmol/L Chloride 101 (98-107) mmol/L Carbon Dioxide 23 (21-32) mmol/L Anion Gap 11 (3-11) BUN 29 H (6-23) mg/dl Creatinine 3.70 H (0.6-1.4) mg/dl Est Cr Clr Drug Dosing Not Reportable Est GFR ( Amer) 18.1 ml/min Est GFR (Non-Af Amer) 15.6 ml/min BUN/Creatinine Ratio 7.8 L (10-20) Glucose 159 H (70-99(Fasting)) mg/dl Calcium 9.1 (8.6-10.3) mg/dl Magnesium 2.1 (1.7-2.4) mg/dl Total Bilirubin 0.5 (0.2-1.0) mg/dl AST 86 H (13-39) U/L ALT 60 H (7-52) U/L Alkaline Phosphatase 75 (34-104) U/L Troponin I High Sens 10.8 (0-20) pg/ml Total Protein 6.2 (6.0-8.3) gm/dl Albumin 3.7 (3.4-5.0) gm/dl Globulin 2.5 (2.5-4.0) gm/dl Albumin/Globulin Ratio 1.5 (0.9-2) Lipase 15 (11-82) U/L Blood Type A Positive Antibody Screen NEGATIVE Administered Medications Discontinued Medications Sodium Chloride (Nss) 1,000 mls @ 999 mls/hr IV .Q1H1M ONE Stop: 01/23/24 16:17 Last Infusion: 01/23/24 16:43 Dose: Infused Documented By: Admin: 01/23/24 15:47 Dose: 999 mls/hr Documented By: ROSA Ondansetron HCl (Ondansetron Inj 2 Mg/Ml 2 Ml Vial) 4 mg IV NOW STA Stop: 01/23/24 15:18 Last Admin: 01/23/24 15:46 Dose: 4 mg Documented By: ROSA Imaging Data Radiologist's Impression: Chest X-Ray 01/23/24 00:00 XR chest 1V portable CLINICAL HISTORY: lightheadedness TECHNIQUE: Single frontal radiograph of the chest was obtained. Comparison: Comparison is made to chest radiograph 01/15/2024 FINDINGS: Lines and tubes are stable. Cardiomegaly is noted. The lungs are clear. No evidence of pleural effusion or pneumothorax. IMPRESSION: No acute chest disease. ACT 112: Negative or not required by law. Electronically signed by: Aidan Sung M.D. 01/23/2024 4:23 PM Discharge Plan Visit Data Chief Complaint: Illness Stated Complaint: LIGHTHEADED, DIZZINESS, RECTAL BLEED, NAUSEA ED Provider: Hazel Turcios Discharge Problem: Acute GI bleeding Forms Stand Alone Forms: My [facility] Prescriptions Prescriptions: No Action calcitriol 0.5 mcg capsule 0.5 mcg PO QAM atorvastatin 40 mg tablet 40 mg PO QAM fluoxetine 20 mg capsule 20 mg PO QAM Juluca 50-25 mg tablet 1 tab PO QAM multivitamin Tablet 1 tab PO QAM omega 4-fzk-efg-fish oil [Fish Oil] 1,000 mg (120 mg-180 mg) Capsule 1 cap PO QAM metoprolol succinate 25 mg tablet extended release 24 hr 25 mg PO QAM coenzyme Q10 [Co Q-10] 10 mg Capsule 10 mg PO DAILY aspirin 81 mg Tablet,Delayed Release (Dr/Ec) 81 mg PO DAILY cholecalciferol (vitamin D3) [Vitamin D3] 25 mcg (1,000 unit) Capsule 25 mcg PO QAM nifedipine [Procardia XL] 30 mg Tablet Extended Release 24hr 30 mg PO QAM 30 Days Qty: 30 1RF levothyroxine [Synthroid] 25 mcg Tablet 25 mcg PO DAILYBB 30 Days Qty: 30 1RF Lokelma 10 gram Powder In Packet 10 g PO DAILY@1100 30 Days Qty: 1 0RF insulin aspart U-100 [Novolog FlexPen U-100 Insulin] 100 unit/mL (3 mL) insulin pen 6 unit subcut TIDM Qty: 0 0RF insulin glargine [Basaglar KwikPen U-100 Insulin] 100 unit/mL (3 mL) insulin pen 10 unit SUBCUT QAM Qty: 0 0RF prasugrel 10 mg tablet 10 mg PO QAM Qty: 30 0RF Rx Instructions: Resume on Tuesday, January 16, 2024 Referrals Referrals: Antonio Colon MD [Primary Care Provider] -
[2024-01-23] MEDS: ONDANSETRON INJ 2 MG/ML 2 ML VIAL IV STA (15:46)
[2024-01-23 15:47] LABS: Basophils # (auto) 0.05 K/uL (0.00-0.20); Basophils % (auto) 0.6 %; Eosinophils # (auto) 0.19 K/uL (0.00-0.50); Eosinophils % (auto) 2.3 %; Hematocrit (blood only) 23.7 % (42.0-52.0); Hemoglobin 7.4 g/dl (14.0-18.0); Immature Granulocytes # (auto) 0.03 K/uL (0.01-0.20); Immature Granulocytes % (auto) 0.4 %; Lymphocytes # (auto) 3.05 K/uL (1.20-3.40); Lymphocytes % (auto) 37.3 %; Mean Corpuscular Hemoglobin 27.3 pg (25.0-34.0); Mean Corpuscular Hgb Conc 31.2 g/dL (32.0-36.0); Mean Corpuscular Volume 87.5 fL (80.0-100.0); Monocytes # (auto) 0.58 K/uL (0.11-0.59); Monocytes % (auto) 7.1 %; Neutrophils # (auto) 4.28 K/uL (1.40-6.50); Neutrophils % (auto) 52.3 %; Platelet Count 275 K/uL (130-400); RDW Coefficient of Variation 14.6 % (11.5-14.5); RDW Standard Deviation 46.4 fL (36.4-46.3); Red Blood Count 2.71 M/uL (4.70-6.10); White Blood Count 8.18 K/ul (4.8-10.8)
[2024-01-23] MEDS: SODIUM CHLORIDE 0.9% 1,000 ML IV ONE (15:47)
[2024-01-23 16:07] LABS: Alanine Aminotransferase 60 U/L (7-52); Albumin Globulin Ratio 1.5 (0.9-2); Albumin Level 3.7 gm/dl (3.4-5.0); Alkaline Phosphatase 75 U/L (34-104); Anion Gap 11 (3-11); Aspartate Aminotransferase 86 U/L (13-39); BUN Creatinine Ratio 7.8 (10-20); Bilirubin,Total 0.5 mg/dl (0.2-1.0); Blood Urea Nitrogen 29 mg/dl (6-23); Calcium 9.1 mg/dl (8.6-10.3); Carbon Dioxide 23 mmol/L (21-32); Chloride 101 mmol/L (98-107); Est GFR (African American) 18.1 ml/min; Est GFR (Non-African American) 15.6 ml/min; Globulin 2.5 gm/dl (2.5-4.0); Glucose 159 mg/dl (70-99(Fasting)); Lipase 15 U/L (11-82); Magnesium 2.1 mg/dl (1.7-2.4); Potassium 4.1 mmol/L (3.5-5.1); Sodium 135 mmol/L (136-145); Total Protein 6.2 gm/dl (6.0-8.3)
[2024-01-23 16:10] LABS: RBC Morphology Unremarkable
[2024-01-23 16:11] LABS: Troponin I High Sensitivity 10.8 pg/ml (0-20)
[2024-01-23 16:14] LABS: Prothrombin Time 10.9 Seconds (9.0-12.0)
--- NOTE | 2024-01-23 16:24 | XRay Report ---
XR chest 1V portable CLINICAL HISTORY: lightheadedness TECHNIQUE: Single frontal radiograph of the chest was obtained. Comparison: Comparison is made to chest radiograph 01/15/2024 FINDINGS: Lines and tubes are stable. Cardiomegaly is noted. The lungs are clear. No evidence of pleural effusi on or pneumothorax. IMPRESSION: No acute chest disease. ACT 112: Negative or not required by law. Electronically signed by: Aidan Sung M.D. 01/23/2024 4:23 PM
[2024-01-23] MEDS ORDERED: PANTOPRAZOLE BOLUS/DRIP IV STA (16:48)
--- NOTE | 2024-01-23 17:05 | History & Physical Report ---
Date of Service January 23, 2024 Assessment & Plan (1) Acute GI bleeding: Plan: This is a 68 y/o male with ESRD on HD, insulin-requiring DM2, chronic systolic HF, CAD s/p stent, chronic LBBB, HTN, hyperlipidemia, HIV on treatment, chronic anemia, and other history as outlined who presented to the ED today with bloody bowel movements since yesterday. Last colonoscopy during admission in December showed polyps x 3, which were removed, and diverticulosis. Differential includes ischemic colitis/gastritis, diverticular bleed, AVM, brisk upper GI source of bleeding, less likely hemorrhoidal. Hgb has dropped from 11.6 on 01/15/24 to 7.4 on 01/23/24. - Admit to PCU - Blood consent obtained - ordered 1 unit of PRBCs to be transfused now with goal Hgb > 8 due to CAD/vascular disease - Clear liquids today, NPO after midnight for possible procedure tomorrow - Consult GI for further work-up - Pantoprazole bolus and gtt - Serial H&H - Labs in the AM - CBC, BMP, LFTs - Empiric antibiotics due to concern for possible ischemic colitis (2) ESRD (end stage renal disease) on dialysis: Plan: New start HD from last month - last HD was yesterday. Follows at [facility] for possible transplant. Consult nephrology for assistance with HD during admission (3) HIV (human immunodeficiency virus infection): Plan: Chronic, stable Continue outpatient regimen - will need to see if pt can bring from home Keep outpatient f/u with Infectious Disease (4) Hypertension: Plan: Chronic, stable Will hold BP meds for now due to active GI blood loss (5) CAD (coronary artery disease): Plan: Chronic, stable - denies angina symptoms at present Holding anti-platelets in view of acute blood loss (6) DM type 2 (diabetes mellitus, type 2): Plan: Chronic, stable Insulin sliding scale Accuchecks Plan Pt seen and reviewed with collaborating physician, Dr. Venegas. Plan of care discussed and as outlined above. Code status: Full code DVT prophylaxis: SCDs Dispo: PCU Ivett Charles PA-C History of Present Illness Chief Complaint: bloody stools since yesterday Primary Care Provider: Antonio Colon MD This is a 68 y/o male with ESRD on HD, insulin-requiring DM2, chronic systolic HF, CAD s/p stent, chronic LBBB, HTN, hyperlipidemia, HIV on treatment, chronic anemia, and other history as outlined who presented to the ED today with bloody bowel movements since yesterday. Two weeks ago, had a single blood BM while he was admitted. None since then until yesterday. He had a colonoscopy during that admission (results below). Yesterday, when he woke up early for HD around 3-4 am, he had an urgent watery loose red bowel movement. Since then, he has had at least 6-8 more episodes of bloody diarrhea. He has associated nausea but no vomiting. No significant abdominal pain but states his abdomen feels uncomfortable and bloated. Appetite is decreased, feels like things taste "weird" right now. He reports a history of GERD and multiple stomach issues previously. He last had HD yesterday and didn't note anything out of the ordinary. Today he noted lightheadedness with standing with some near falls and near syncope but no fall or syncopal event. Notes dyspnea with exertion since yesterday but no chest pain, palpitations. Pt is unsure if he had a blood transfusion previously. He was recently admitted to [facility] from 12/31/23-01/14/24 for septic shock, likely secondary to UTI. Hospital stay complicated by acute renal failure on CKD, which resulted in the initiation of HD. Pt was found to have right hydronephrosis with possible nonobstructive nephrolithiasis so ureteral stent placed on 12/30. Pt's baseline hemoglobin appears to be around 11-13. Colonoscopy on 01/07/[address] Khalil: - Three 4 to 11 mm polyps in the transverse colon and in the cecum, removed with a hot snare. Resected and retrieved. - Diverticulosis in the sigmoid colon. - Non-bleeding internal hemorrhoids. - Several random biopsies were obtained in the entire colon. - Fluid aspiration was performed. Allergies Allergy/AdvReac Type Severity Reaction Status Date / Time No Known Allergies Allergy Verified 01/07/24 10:50 Home Medications Medication Instructions Recorded Confirmed Type atorvastatin 40 mg tablet 40 mg PO QAM 01/06/22 01/23/24 History dolutegravir 50 mg-rilpivirine 25 1 tab PO QAM 01/06/22 01/23/24 History mg tablet (Juluca) fluoxetine 20 mg capsule 20 mg PO QAM 01/06/22 01/23/24 History multivitamin 1 tab PO QAM 01/06/22 01/23/24 History omega 5-ljh-qyy-fish oil 1,000 mg 1 cap PO QAM 01/06/22 01/23/24 History (120 mg-180 mg) capsule (Fish Oil) calcitriol 0.5 mcg capsule 0.5 mcg PO QAM 10/31/22 01/23/24 History aspirin 81 mg tablet,delayed 81 mg PO DAILY 12/30/23 01/23/24 History release cholecalciferol (vitamin D3) 25 25 mcg PO QAM 12/30/23 01/23/24 History mcg (1,000 unit) capsule (Vitamin D3) coenzyme Q10 10 mg capsule (Co 10 mg PO DAILY 12/30/23 01/23/24 History Q-10) metoprolol succinate 25 mg 25 mg PO QAM 12/30/23 01/23/24 History tablet,extended release 24 hr insulin aspart U-100 100 unit/mL 6 unit (0.06 mL) subcut TIDM #0 mL 01/14/24 01/23/24 Rx (3 mL) subcutaneous pen (Novolog FlexPen U-100 Insulin aspart) insulin glargine 100 unit/mL (3 10 unit (0.1 mL) subcut QAM #0 mL 01/14/24 01/23/24 Rx mL) subcutaneous pen (Basaglar KwikPen U-100 Insulin) prasugrel 10 mg tablet 10 mg PO QAM #30 tabs 01/14/24 01/23/24 Rx levothyroxine 25 mcg tablet 25 mcg PO DAILY 01/23/24 01/23/24 History Past Med/Surg History Medical History (Updated 01/23/24 @ 18:21 by Mariama Charles PA-C) ESRD (end stage renal disease) on dialysis Septic shock History of kidney stones Osteoarthritis Chronic lower back pain History of pancreatitis DM type 2 (diabetes mellitus, type 2) History of skin cancer [place] (hard of hearing) HLD (hyperlipidemia) History of myocardial infarction 2016 & 2019 Sleep apnea no device Diverticulosis GERD (gastroesophageal reflux disease) IBS (irritable bowel syndrome) Precancerous lesion rectal CAD (coronary artery disease) Per patient, stenting x 5 in 2016 and restenting of 1 vessel performed in July 2020 Depression HIV (human immunodeficiency virus infection) Surgical History S/P ureteral stent placement History of removal of ureteral stent History of cystoscopy History of colonoscopy History of cholecystectomy History of cardiac catheterization 2017 - stents 2019 -- restenting x 1. [facility] No pertinent past surgical history Family History Mother Heart disease Social History Smoking Status: Never smoker Tobacco Type: Cigarettes Second Hand Exposure: No; Do You Dip or Chew Tobacco: No; Hx Alcohol Use: Yes Alcohol type: beer, wine and hard liquor Alcohol Intake Frequency: Monthly or Less Hx Substance Use: No Preferred Language: Senegalese Communication Ability: Effective [employer] Retreader Required: No Beliefs That Will Affect Care: None Current Living Situation: Alone Feels Safe at Home: No Is there a partner from a previous relationship who is making you feel unsafe now?: No Assistive Devices: None Review of Systems Review of Systems: All systems reviewed & are unremarkable except as noted in HPI & below Constitutional: + fatigue, + weakness and + anorexia; no fever and no chills Eyes: no diplopia Ear, Nose, Mouth, Throat: no nasal congestion, no nasal discharge and no sore throat Respiratory: + dyspnea on exertion; no cough Cardiovascular: + lightheadedness; no chest pain and no palpitations Gastrointestinal: as per Subjective / HPI Musculoskeletal: + back pain (chronic) Integumentary: no rash Neurologic: + unsteadiness and + dizziness; no heada pamela(s) Physical Exam Physical Exam: See physician addendum for details of the physical exam Results & Data Results & Data Vital Signs (Past 12 Hours) Vital Signs Temp Pulse Pulse Resp BP BP Pulse Ox 01/23/24 16:30 87 19 113/66 94 01/23/24 16:05 88 01/23/24 16:00 89 20 113/68 94 01/23/24 15:46 94 H 15 115/69 100 01/23/24 15:17 99 01/23/24 15:17 93 H 17 115/69 100 01/23/24 15:07 36.1 C L 110 H 19 90/65 L 99 O2 Del Method 01/23/24 16:30 Room Air 01/23/24 16:05 01/23/24 16:00 Room Air 01/23/24 15:46 01/23/24 15:17 Room Air 01/23/24 15:17 Room Air 01/23/24 15:07 Room Air Laboratory Results Laboratory Results - last 24 hr 01/23/24 15:33 WBC 8.18 RBC 2.71 L Hgb 7.4 L Hct 23.7 L MCV 87.5 MCH 27.3 MCHC 31.2 L RDW Std Deviation 46.4 H RDW Coeff of Meera 14.6 H Plt Count 275 MPV 10.0 Immature Gran % (Auto) 0.4 Neut % (Auto) 52.3 Lymph % (Auto) 37.3 [place] % (Auto) 7.1 Eos % (Auto) 2.3 Baso % (Auto) 0.6 Neut # (Auto) 4.28 Lymph # (Auto) 3.05 [place] # (Auto) 0.58 Eos # (Auto) 0.19 Baso # (Auto) 0.05 Immature Gran # (Auto) 0.03 RBC Morphology Unremarkable PT 10.9 INR 1.0 Sodium 135 L Potassium 4.1 Chloride 101 Carbon Dioxide 23 Anion Gap 11 BUN 29 H Creatinine 3.70 H Est Cr Clr Drug Dosing Not Reportable Est GFR ( Amer) 18.1 Est GFR (Non-Af Amer) 15.6 BUN/Creatinine Ratio 7.8 L Glucose 159 H Calcium 9.1 Magnesium 2.1 Total Bilirubin 0.5 AST 86 H ALT 60 H Alkaline Phosphatase 75 Troponin I High Sens 10.8 Total Protein 6.2 Albumin 3.7 Globulin 2.5 Albumin/Globulin Ratio 1.5 Lipase 15 Blood Type A Positive Antibody Screen NEGATIVE Diagnostic Findings Chest X-Ray 01/23/24 00:00 XR chest 1V portable CLINICAL HISTORY: lightheadedness TECHNIQUE: Single frontal radiograph of the chest was obtained. Comparison: Comparison is made to chest radiograph 01/15/2024 FINDINGS: Lines and tubes are stable. Cardiomegaly is noted. The lungs are clear. No evidence of pleural effusion or pneumothorax. IMPRESSION: No acute chest disease. ACT 112: Negative or not required by law. Electronically signed by: Aidan Sung M.D. 01/23/2024 4:23 PM Medications Administered Discontinued Medications Sodium Chloride (Nss) 1,000 mls @ 999 mls/hr IV .Q1H1M ONE Stop: 01/23/24 16:17 Last Infusion: 01/23/24 16:43 Dose: Infused Documented By: Admin: 01/23/24 15:47 Dose: 999 mls/hr Documented By: ROSA Ondansetron HCl (Ondansetron Inj 2 Mg/Ml 2 Ml Vial) 4 mg IV NOW STA Stop: 01/23/24 15:18 Last Admin: 01/23/24 15:46 Dose: 4 mg Documented By: ROSA Supervising Physician Co-Signing Physician Notes I have seen and discussed the case with the collaborating advanced practitioner. I agree with the above H&P. I have reviewed and confirmed the patients medical history, the findings on physical examination, and the patients diagnosis and treatment plan with Melvin CRUZ and agree with the information documented. In short, Mr. Silvestre is a 68 year old gentleman with history of HFrecEF (EF 65%, TTE 2022) 2/2 ischemic cardiomyopathy s/p stent 2017, chronic LBBB, hy pertension, hyperlipidemia, HIV on Rx (77 VL, CD4 599 04/2023), DM2, ESRD on HD, chronic anemia (baseline hemoglobin of 13), colonic polyps/internal hemorrhoids, anal HGSIL as per records who is admitted for acute on chronic anemia with melena. Patient reports 5-6 episodes of watery/black and bright red bloody bowel movements since dialysis yesterday (TThuSa). He states he then noted MOODY and pre syncope, prompting his presentation to ED. Patient with recent prolonged admission on 12/30-01/13 for concern of LGIB, no transfusion during stay. C-Scope completed. No EGD. Patient reports vague epigastric discomfort. . Cecum (polypectomy): - Abundant refractile foreign material, hyperplasia of muscularis mucosae, and benign strips of colonic epithelium are all seen. - An epithelial proliferation is not seen and in fact no tumor is seen. - Please note that this part is reviewed by one of my colleagues in the Department of pathology and my colleague agrees with the rendered diagnoses on this part. B. Colon, "random colon biopsy" (biopsy): - Multiple fragments of benign colonic mucosa with no pathologic diagnoses are seen. - The clinical history of diarrhea is noted. C. Colon, transverse (polypectomy): - Fragmented tubular adenoma GENERAL APPEARANCE: AxOx4, pleasant gentleman no acute distress. HEENT: NC, AT. MMM. EOMI, clear conjunctiva, oropharynx clear. NECK: Supple without lymphadenopathy. No stiffness or restricted ROM. HEART: Normal rate and regular rhythm, normal S1/S1, no m/r/g LUNGS: CTAB, moving air well. No crackles or wheezes are heard. ABDOMEN: Soft, nontender, slightly distended with good bowel sounds heard. EXTREMITIES: Without cyanosis, clubbing or edema. NEUROLOGICAL: Grossly nonfocal. Alert and oriented, moving all 4 extremities. CN not formally tested but appear grossly intact Skin: Warm and dry without any rash. : #Acute on chronic anemia, c/f GIB Hgb drop from 11->7.4; symptotic marked by MOODY, presyncope transfuse 1 UPRBC for goal > 8 CLD, NPO midnight PPI drip Zosyn empirically for c/f ischemic colitis/gastritis given acuity after HD CT ab/p without con pending #HIV follow [facility], CD4 599 in 04/2023, Continue home regimen #ESRD on HD neprhology consult rest of plan as above Rest of plan as above I spent a total of 35 minutes coordinating, documenting, and providing care for this patient excluding time spent in the performance of separately billed services. All of the aforementioned completed outside of collaborating with the assigned advanced practitioner for a full treatment plan. I have reviewed the advanced practitioner's documentation, and I agree with, and take responsibility for the plan of care (3) HIV (human immunodeficiency virus infection) HIV symptom status: unspecified Qualified Code(s): B20 - Human immunodeficiency virus [HIV] disease (4) Hypertension Hypertension type: unspecified Qualified Code(s): I10 - Essential (primary) hypertension (5) CAD (coronary artery disease) Associated angina: unspecified whether angina present Coronary Disease- Associated Artery/Lesion type: [place] artery [place] vs. transplanted heart: [place] heart Qualified Code(s): I25.10 - Atherosclerotic heart disease of [place] coronary artery without angina pectoris (6) DM type 2 (diabetes mellitus, type 2) Chronic kidney disease stage: on chronic dialysis Diabetes mellitus complication detail: with chronic kidney disease Diabetes mellitus complication status: with kidney complications Diabetes mellitus fdc insulin use: with fdc use Qualified Code(s): E11.22 - Type 2 diabetes mellitus with diabetic chronic kidney disease; N18.6 - End stage renal disease; Z79.4 - retirement (current) use of insulin; Z99.2 - Dependence on renal dialysis
[2024-01-23] MEDS ORDERED: SODIUM CHLORIDE 0.9% 250 ML IV PRN (17:19)
[2024-01-23] MEDS: PANTOprazole 80 MG in DEXTROSE 5% 100 ML IV ONE (17:22)
[2024-01-23] MEDS: PANTOprazole 40 MG in DEXTROSE 5% MINI-B 100 ML IV SCH (17:22)
[2024-01-23] MEDS: diphenhydrAMINE Capsule 25 MG CAP PO ONE (17:54)
[2024-01-23] MEDS: ACETAMINOPHEN 325 MG TAB PO ONE (18:02)
[2024-01-23] MEDS ORDERED: GLUCAGON FOR INJ 1 MG VIAL SQ PRN (18:32)
[2024-01-23] MEDS ORDERED: GLUCOSE 10 TAB/TUBE PO PRN (18:32)
[2024-01-23] MEDS ORDERED: GLUCOSE 40% GEL 15 GM TUBE PO PRN (18:32)
[2024-01-23] MEDS ORDERED: CARBOHYDRATES FOR HYPOGLYCEMIA PO PRN (18:32)
[2024-01-23] MEDS ORDERED: DEXTROSE 50% 50 ML SYRINGE IV PRN (18:32)
[2024-01-23] MEDS: PIPER/TAZO 4.5g in D5W MINI-B 100 ML IV ONE (20:18)
--- NOTE | 2024-01-23 20:44 | CT Scan Report ---
CT abd pelvis wo con CLINICAL HISTORY: bleeding, cannot do con iso ESRD TECHNIQUE: Helical axial images of the abdomen and pelvis were obtained. Automated dose lowering tech niques and/or adjustment according to patient size were utilized for this exam. This exam was perfor med without intravenous contrast. CT DOSE: 1203.95 mGy.cm COMPARISON: Comparison is made to CT abdomen pelvis 12/30/2023 FINDINGS: Lower chest: No acute abnormality. Liver: Unremarkable. No focal lesions are seen. Gallbladder and biliary tree: Patient is status post cholecystectomy. Physiologic prominence of the b iliary ducts is noted. Pancreas: Calcifications are seen compatible with chronic pancreatitis. Spleen: Unremarkable. Adrenals: Unremarkable. Kidneys and ureters: Right nephroureteral stent is seen. Right renal cysts are noted. Atrophic appear ance of the bilateral kidneys. Bladder: Unremarkable. Reproductive organs: There may be small bilateral hydroceles. Bowel: Diverticulosis is seen without evidence of diverticulitis. Lymph nodes Retroperitoneal: Unremarkable. Pelvic: Unremarkable. Mesenteric: Subcentimeter lymph nodes are noted. Peritoneum: Scarring is noted in the central peritoneum near the pancreas, likely secondary to chroni c pancreatitis. Vessels: Atherosclerotic calcifications are seen. Abdominal wall: Left fat containing inguinal hernia. Bones: Unremarkable. IMPRESSION: 1. No acute abnormalities to explain GI bleed.. 2. Changes of chronic pancreatitis. ACT 112: Negative or not required by law. Electronically signed by: Aidan Sung M.D. 01/23/2024 8:41 PM
[2024-01-23] MEDS ORDERED: ONDANSETRON INJ 2 MG/ML 2 ML VIAL IV PRN (21:00)
[2024-01-23] MEDS: INSULIN ASPART PER UNIT CHARGE SC SCH (21:23)
[2024-01-23] MEDS: ACETAMINOPHEN 325 MG TAB PO PRN (21:36)
[2024-01-23] MEDS: FUROSEMIDE 40 MG/4 ML VIAL IV SCH (23:11)
[2024-01-24 01:34] LABS: Hematocrit (blood only) 21.6 % (42.0-52.0); Hemoglobin 6.9 g/dl (14.0-18.0)
[2024-01-24] MEDS ORDERED: SODIUM CHLORIDE 0.9% 250 ML IV PRN (01:56)
[2024-01-24] MEDS: PIPERACILLIN/TAZOBACTAM 4.5 GM in DEXTROSE 5% MINI-B 100 ML IV SCH (04:54)
[2024-01-24] MEDS: LEVOTHYROXINE SODIUM 25 MCG TABLET PO SCH (06:16)
[2024-01-24 07:26] LABS: Basophils # (auto) 0.04 K/uL (0.00-0.20); Basophils % (auto) 0.9 %; Eosinophils # (auto) 0.29 K/uL (0.00-0.50); Eosinophils % (auto) 6.3 %; Hematocrit (blood only) 25.5 % (42.0-52.0); Hemoglobin 8.4 g/dl (14.0-18.0); Immature Granulocytes # (auto) 0.02 K/uL (0.01-0.20); Immature Granulocytes % (auto) 0.4 %; Lymphocytes # (auto) 1.43 K/uL (1.20-3.40); Mean Corpuscular Hemoglobin 28.3 pg (25.0-34.0); Mean Corpuscular Hgb Conc 32.9 g/dL (32.0-36.0); Mean Corpuscular Volume 85.9 fL (80.0-100.0); Mean Platelet Volume 9.6 fL (9.4-12.4); Monocytes # (auto) 0.49 K/uL (0.11-0.59); Monocytes % (auto) 10.6 %; Neutrophils # (auto) 2.34 K/uL (1.40-6.50); Neutrophils % (auto) 50.8 %; Platelet Count 146 K/uL (130-400); RDW Coefficient of Variation 14.6 % (11.5-14.5); RDW Standard Deviation 45.1 fL (36.4-46.3); Red Blood Count 2.97 M/uL (4.70-6.10); White Blood Count 4.61 K/ul (4.8-10.8)
[2024-01-24 08:28] LABS: Albumin Level 3.3 gm/dl (3.4-5.0); BUN Creatinine Ratio 7.1 (10-20); Bilirubin Direct 0.2 mg/dl (0-0.2); Bilirubin,Total 0.8 mg/dl (0.2-1.0); Calcium 8.8 mg/dl (8.6-10.3); Creatinine Clr Calc Pharmacy 16.8 ml/min; Est GFR (Non-African American) 13.8 ml/min; Magnesium 1.9 mg/dl (1.7-2.4); Phosphorus 4.8 mg/dl (2.5-4.9); Potassium 4.1 mmol/L (3.5-5.1); Total Protein 5.5 gm/dl (6.0-8.3)
[2024-01-24] MEDS: FUROSEMIDE 40 MG/4 ML VIAL IV STA (08:31)
[2024-01-24] MEDS: [UNRECOGNIZED DRUG - REMARK] SCH (08:32)
[2024-01-24] MEDS: CALCITRIOL 0.25 MCG CAPSULE PO SCH (08:32)
[2024-01-24] MEDS ORDERED: DOLUTEGRAVIR RILPIVIRINE PO SCH (09:00)
--- NOTE | 2024-01-24 09:23 | Gastrointestinal Consultation ---
Date of Consultation January 24, 2024 Assessment & Plan (1) Acute GI bleeding: Patient admitted with a two day history of black and bloody stools. epigastric tenderness on exam. He had colonoscopy recently. no further signs of bleeding today. hgb had dropped from 11.6 to 7.4. hgb improved with 2 units PRBC to 8.4. He is agreeable to an EGD for further work up. - set up EGD for today to further evaluate dark stools. - follow hgb/hct and transfuse as needed. - continue with protonix drip at this time. ADDENDUM 01/24/24 10:23am - Anesthesia reviewed chart and would prefer EGD be postponed until 01/25/24 secondary to patient needing dialysis today. Will plan to do EGD 01/24. Supervising Physician Co-Signing Physician Notes Agree with ZAC Evans as above Interviewed and examined patient and agree with above Abd: Soft, NT, ND, +BS Continue current therapy and supportive care Proceed with Push Enteroscopy now History of Present Illness Reason for Consultation: GIB Requesting Physician: Mariama Charles PA-C Attending Physician: William Pinto MD History of Present Illness Patient is a 68 year old male who presented to the ED with complaints of rectal bleeding and melena which started 2 days ago on Wednesday. He tells me he was having several black stools with bright red blood mixed in with it. He was also developing weakness and dizziness and after this continued into Wednesday, he decided to proceed to the ED for evaluation. 01/23/24 hgb 7.4. This was down from previous admission when 01/15/24 hgb was 11.6. He had some rectal bleeding on that previous admission and had a colonoscopy on 01/07/24 with removal of 3 colon polyps, diverticulosis, and internal hemorrhoids. He tells me that he has not had anything to eat or drink today and so far today he has had no further bowel movements. He does report a history of ongoing abdominal pain, worse in the epigastric region and nausea which he tells me has been ongoing for some time. he denies nsaid use. he denies any heartburn or dysphagia. CT 01/23/24 changes of chronic pancreatitis. no acute abnormality to explain GI bleeding. Allergies Allergy/AdvReac Type Severity Reaction Status Date / Time No Known Allergies Allergy Verified 01/07/24 10:50 Home Medications Medication Instructions Recorded Confirmed Type atorvastatin 40 mg tablet 40 mg PO QAM 01/06/22 01/23/24 History dolutegravir 50 mg-rilpivirine 25 1 tab PO QAM 01/06/22 01/23/24 History mg tablet (Juluca) fluoxetine 20 mg capsule 20 mg PO QAM 01/06/22 01/23/24 History multivitamin 1 tab PO QAM 01/06/22 01/23/24 History omega 1-byi-kcv-fish oil 1,000 mg 1 cap PO QAM 01/06/22 01/23/24 History (120 mg-180 mg) capsule (Fish Oil) calcitriol 0.5 mcg capsule 0.5 mcg PO QAM 10/31/22 01/23/24 History aspirin 81 mg tablet,delayed 81 mg PO DAILY 12/30/23 01/23/24 History release cholecalciferol (vitamin D3) 25 25 mcg PO QAM 12/30/23 01/23/24 History mcg (1,000 unit) capsule (Vitamin D3) coenzyme Q10 10 mg capsule (Co 10 mg PO DAILY 12/30/23 01/23/24 History Q-10) metoprolol succinate 25 mg 25 mg PO QAM 12/30/23 01/23/24 History tablet,extended release 24 hr insulin aspart U-100 100 unit/mL 6 unit (0.06 mL) subcut TIDM #0 mL 01/14/24 01/23/24 Rx (3 mL) subcutaneous pen (Novolog FlexPen U-100 Insulin aspart) insulin glargine 100 unit/mL (3 10 unit (0.1 mL) subcut QAM #0 mL 01/14/24 01/23/24 Rx mL) subcutaneous pen (Basaglar KwikPen U-100 Insulin) prasugrel 10 mg tablet 10 mg PO QAM #30 tabs 01/14/24 01/23/24 Rx levothyroxine 25 mcg tablet 25 mcg PO DAILY 01/23/24 01/23/24 History Patient History Medical History ESRD (end stage renal disease) on dialysis Septic shock History of kidney stones Osteoarthritis Chronic lower back pain History of pancreatitis DM type 2 (diabetes mellitus, type 2) History of skin cancer [place] (hard of hearing) HLD (hyperlipidemia) History of myocardial infarction 2017 & 2019 Sleep apnea no device Diverticulosis GERD (gastroesophageal reflux disease) IBS (irritable bowel syndrome) Precancerous lesion rectal CAD (coronary artery disease) Per patient, stenting x 5 in 2017 and restenting of 1 vessel performed in July 2020 Depression HIV (human immunodeficiency virus infection) Surgical History S/P ureteral stent placement History of removal of ureteral stent History of cystoscopy History of colonoscopy History of cholecystectomy History of cardiac catheterization 2016 - stents 2019 -- restenting x [facility]. [facility] No pertinent past surgical history Family History Mother Heart disease Social History Smoking Status: Former smoker Tobacco Type: Cigarettes Second Hand Exposure: No; Do You Dip or Chew Tobacco: No; Hx Alcohol Use: Yes Alcohol type: beer, wine and hard liquor Alcohol Intake Frequency: Monthly or Less Hx Substance Use: No Preferred Language: Tajik Communication Ability: Effective Cutter Out Required: No Beliefs That Will Affect Care: None Current Living Situation: Alone Other Information That Helps Us Care for You: No Feels Safe at Home: Yes and No Is there a partner from a previous relationship who is making you feel unsafe now?: No Any Concerns about Your Family Situation: Yes Would You Like to Speak to Someone About Your Situation: Yes Safety Concerns: Feels Safe At This Time Assistive Devices: None Review of Systems Review of Systems: All systems reviewed & are unremarkable except as noted in HPI & below Physical Exam Constitutional: WD/WN, vitals as above Respiratory: normal respiratory effort, lungs clear to auscultation Cardiovascular: RRR, no murmur, no edema Gastrointestinal (Abdomen): mild epigastric tenderness, no guarding, soft, normal bowel sounds. Skin: no rashes, warm and dry Psychiatric: Orientation: alert and oriented x 3 Affect: euthymic affect Results & Data Vital Signs (Past 12 Hours) Vital Signs Temp Pulse Pulse Resp BP BP Pulse Ox 01/24/24 07:38 97.7 F 75 18 111/73 100 01/24/24 05:50 97.7 F 72 16 112/64 99 01/24/24 05:33 97.7 F 73 16 118/70 98 01/24/24 04:33 97.5 F L 73 16 126/75 99 01/24/24 03:33 97.7 F 74 16 100/57 L 98 01/24/24 03:03 97.7 F 89 16 95/56 L 98 01/24/24 02:48 97.7 F 71 16 98/59 L 98 01/24/24 02:29 97.7 F 72 16 116/63 98 01/23/24 23:13 97.5 F L 75 16 111/72 100 01/23/24 23:13 97.5 F L 75 16 111/72 100 01/23/24 22:59 97.5 F L 76 16 105/53 L 99 01/23/24 21:59 97.5 F L 79 16 97/55 L 98 01/23/24 21:57 77 O2 Del Method 01/24/24 07:38 Room Air 01/24/24 05:50 01/24/24 05:33 01/24/24 04:33 01/24/24 03:33 01/24/24 03:03 01/24/24 02:48 01/24/24 02:29 01/23/24 23:13 Room Air 01/23/24 23:13 01/23/24 22:59 01/23/24 21:59 01/23/24 21:57 Coding Level of Care Code 15352 INT INP/OBS CARE 2/55MIN Diagnoses Acute GI bleeding K92.2
--- NOTE | 2024-01-24 10:13 | Nephrology Consultation ---
Date of Consultation January 24, 2024 Assessment & Plan (1) ESRD (end stage renal disease) on dialysis: Newly started on dialysis after many years of CKD 4. No electrolyte problems. he appears slightly volume depleted if anything so no need of more iv lasix even if he needs 1-2 PRBC further. next HD tomorrow. No heparin and no fluid removal most likely. will do 3k bath bicarb 35. (2) Acute GI bleeding: getting EGD today. Had Colonoscopy last week. S/p PRBC with iv lasix. No heparin with dialysis tomorrow procrit 40140 units with dialysis History of Present Illness Reason for Consultation: ESRD on dialysis admitted for GI bleeding Attending Physician: William Pinto MD History of Present Illness 68/M with newly started dialysis for ESRD after many years of CKD 4. Currently ESRD on HD---TTS schedule, insulin-requiring DM2, chronic systolic HF, CAD s/p stent, chronic LBBB, HTN, hyperlipidemia, Longstanding HIV on treatment, chronic anemia presented to the ED yesterday with bloody bowel movements of 2 days. he has had Chronic Diarrhea now for a long time. Two weeks ago, had a single blood BM while he was admitted. None since then until yesterday. He had a colonoscopy during that admission. Yesterday, when he woke up early for HD around 3-4 am, he had an urgent watery loose red bowel movement. Since then, he has had at least 6-8 more episodes of bloody diarrhea. He has associated nausea but no vomiting. No significant abdominal pain but states his abdomen feels uncomfortable and bloated. He reports a history of GERD and multiple stomach issues previously. He last had HD Wednesday and didn't note anything out of the ordinary. yesterday he felt lightheadedness and near syncope. he also had dyspnea with exertion since yesterday but no chest pain, palpitations. He was recently admitted to [facility] from 12/31/23-01/14/24 for septic shock related with Likely urine source, Severe Diarrhea. Hospital stay complicated by acute renal failure on CKD, which resulted in the initiation of HD. Pt was found to have right hydronephrosis with possible nonobstructive nephrolithiasis so ureteral stent placed on 12/30. hgb was 11 + on discharge and now is in the 7. Had PRBC with Iv lasix. making lot of urine. he had 2 outpt Dialysis So far through his C[facility]. No DiarrheAa now. Feels better. Physical Exam Physical Exam: General exam: Appears comfortable, no acute distress HEENT: Pupils are equal and reactive to light Neck: No JVD, neck is supple trachea is midline Respiratory system: Clear breath sounds bilaterally. Gastrointestinal: Abdomen is soft, non distended, non tender, bowel sounds are present CVS: Regular rate and rhythm. No murmurs, rubs or gallops Musculoskeletal: No joint or muscle tenderness Extremities: Non tender, no edema, peripheral pulses are present Neuro: Oriented, no tremors, no focal neurological deficits Skin: No rashes Allergies Allergy/AdvReac Type Severity Reaction Status Date / Time No Known Allergies Allergy Verified 01/07/24 10:50 Home Medications Medication Instructions Recorded Confirmed Type atorvastatin 40 mg tablet 40 mg PO QAM 01/06/22 01/23/24 History dolutegravir 50 mg-rilpivirine 25 1 tab PO QAM 01/06/22 01/23/24 History mg tablet (Juluca) fluoxetine 20 mg capsule 20 mg PO QAM 01/06/22 01/23/24 History multivitamin 1 tab PO QAM 01/06/22 01/23/24 History omega 4-jlg-dyr-fish oil 1,000 mg 1 cap PO QAM 01/06/22 01/23/24 History (120 mg-180 mg) capsule (Fish Oil) calcitriol 0.5 mcg capsule 0.5 mcg PO QAM 10/31/22 01/23/24 History aspirin 81 mg tablet,delayed 81 mg PO DAILY 12/30/23 01/23/24 History release cholecalciferol (vitamin D3) 25 25 mcg PO QAM 12/30/23 01/23/24 History mcg (1,000 unit) capsule (Vitamin D3) coenzyme Q10 10 mg capsule (Co 10 mg PO DAILY 12/30/23 01/23/24 History Q-10) metoprolol succinate 25 mg 25 mg PO QAM 12/30/23 01/23/24 History tablet,extended release 24 hr insulin aspart U-100 100 unit/mL 6 unit (0.06 mL) subcut TIDM #0 mL 01/14/24 01/23/24 Rx (3 mL) subcutaneous pen (Novolog FlexPen U-100 Insulin aspart) insulin glargine 100 unit/mL (3 10 unit (0.1 mL) subcut QAM #0 mL 01/14/24 01/23/24 Rx mL) subcutaneous pen (Basaglar KwikPen U-100 Insulin) prasugrel 10 mg tablet 10 mg PO QAM #30 tabs 01/14/24 01/23/24 Rx levothyroxine 25 mcg tablet 25 mcg PO DAILY 01/23/24 01/23/24 History Patient History Medical History ESRD (end stage renal disease) on dialysis Septic shock History of kidney stones Osteoarthritis Chronic lower back pain History of pancreatitis DM type 2 (diabetes mellitus, type 2) History of skin cancer [place] (hard of hearing) HLD (hyperlipidemia) History of myocardial infarction 2016 & 2019 Sleep apnea no device Diverticulosis GERD (gastroesophageal reflux disease) IBS (irritable bowel syndrome) Precancerous lesion rectal CAD (coronary artery disease) Per patient, stenting x 5 in 2016 and restenting of 1 vessel performed in July 2020 Depression HIV (human immunodeficiency virus infection) Surgical History S/P ureteral stent placement History of removal of ureteral stent History of cystoscopy History of colonoscopy History of cholecystectomy History of cardiac catheterization 2016 - stents 2019 -- restenting x 1. [facility] No pertinent past surgical history Family History Mother Heart disease Social History Smoking Status: Former smoker Tobacco Type: Cigarettes Second Hand Exposure: No; Do You Dip or Chew Tobacco: No; Hx Alcohol Use: Yes Alcohol type: beer, wine and hard liquor Alcohol Intake Frequency: Monthly or Less Hx Substance Use: No Preferred Language: Nigerien Communication Ability: Effective Compensation And Hris Analyst Required: No Beliefs That Will Affect Care: None Current Living Situation: Alone Other Information That Helps Us Care for You: No Feels Safe at Home: Yes and No Is there a partner from a previous relationship who is making you feel unsafe now?: No Any Concerns about Your Family Situation: Yes Would You Like to Speak to Someone About Your Situation: Yes Safety Concerns: Feels Safe At This Time Assistive Devices: None Results & Data Vital Signs (Past 12 Hours) Vital Signs Temp Pulse Pulse Resp BP BP Pulse Ox 01/24/24 07:38 36.5 C 75 18 111/73 100 01/24/24 05:50 36.5 C 72 16 112/64 99 01/24/24 05:33 36.5 C 73 16 118/70 98 01/24/24 04:33 36.4 C L 73 16 126/75 99 01/24/24 03:33 36.5 C 74 16 100/57 L 98 01/24/24 03:03 36.5 C 89 16 95/56 L 98 01/24/24 02:48 36.5 C 71 16 98/59 L 98 01/24/24 02:29 36.5 C 72 16 116/63 98 01/23/24 23:13 36.4 C L 75 16 111/72 100 01/23/24 23:13 36.4 C L 75 16 111/72 100 01/23/24 22:59 36.4 C L 76 16 105/53 L 99 O2 Del Method 01/24/24 07:38 Room Air 01/24/24 05:50 01/24/24 05:33 01/24/24 04:33 01/24/24 03:33 01/24/24 03:03 01/24/24 02:48 01/24/24 02:29 01/23/24 23:13 Room Air 01/23/24 23:13 01/23/24 22:59
--- NOTE | 2024-01-24 12:10 | Anesthesiology Consultation ---
Date of Service January 24, 2024 Assessment & Plan ASA ASA3 Proposed Anesthesia Anesthesia Type: MAC Risk / Benefits Reviewed With: PT / POA / Parent / Guardian, Accepts Plan and Informed Consent Obtained History Surgery Operation Date: 01/24/24 16:45 Proposed Procedures p Esophagogastroduodenoscopy Dr Khalil - Gianfranco Khalil, DO Height/Weight Height: 5 ft 9 in Weight: 74.8 kg Allergies Allergy/AdvReac Type Severity Reaction Status Date / Time No Known Allergies Allergy Verified 01/07/24 10:50 Medications Home Medications Medication Instructions Recorded Confirmed Last Taken atorvastatin 40 mg tablet 40 mg PO QAM 01/06/22 01/23/24 12/29/23 dolutegravir 50 mg-rilpivirine 25 1 tab PO QAM 01/06/22 01/23/24 12/29/23 mg tablet (Juluca) fluoxetine 20 mg capsule 20 mg PO QAM 01/06/22 01/23/24 12/29/23 multivitamin 1 tab PO QAM 01/06/22 01/23/24 12/29/23 omega 0-wsd-cua-fish oil 1,000 mg 1 cap PO QAM 01/06/22 01/23/24 12/29/23 (120 mg-180 mg) capsule (Fish Oil) calcitriol 0.5 mcg capsule 0.5 mcg PO QAM 10/31/22 01/23/24 12/29/23 aspirin 81 mg tablet,delayed 81 mg PO DAILY 12/30/23 01/23/24 12/29/23 release cholecalciferol (vitamin D3) 25 25 mcg PO QAM 12/30/23 01/23/24 12/29/23 mcg (1,000 unit) capsule (Vitamin D3) coenzyme Q10 10 mg capsule (Co 10 mg PO DAILY 12/30/23 01/23/24 12/29/23 Q-10) metoprolol succinate 25 mg 25 mg PO QAM 12/30/23 01/23/24 12/29/23 tablet,extended release 24 hr insulin aspart U-100 100 unit/mL 6 unit (0.06 mL) subcut TIDM #0 mL 01/14/24 01/23/24 12/29/23 (3 mL) subcutaneous pen (Novolog FlexPen U-100 Insulin aspart) insulin glargine 100 unit/mL (3 10 unit (0.1 mL) subcut QAM #0 mL 01/14/24 01/23/24 12/29/23 mL) subcutaneous pen (Basaglar KwikPen U-100 Insulin) prasugrel 10 mg tablet 10 mg PO QAM #30 tabs 01/14/24 01/23/24 01/05/24 levothyroxine 25 mcg tablet 25 mcg PO DAILY 01/23/24 01/23/24 Unknown Active Medications Generic Name Dose Route Start Last Admin Trade Name Freq PRN Reason Stop Dose Admin Acetaminophen 650 mg 01/23/24 21:28 01/23/24 21:36 Acetaminophen 325 Mg Tab PO 02/22/24 21:27 650 mg Q6H PRN Administration Pain or Fever Calcitriol 0.5 mcg 01/24/24 09:00 01/24/24 08:32 Calcitriol 0.25 Mcg Capsule PO 02/23/24 08:59 0.5 mcg QAM MOSHE Administration Pantoprazole Sodium 40 mg/ 100 mls @ 20 mls/hr 01/23/24 17:15 01/24/24 09:20 Dextrose IV 02/22/24 17:14 8 mg/hr Q5H MOSHE 20 mls/hr Administration 8 MG/HR Piperacillin Sod/Tazobactam 100 mls @ 25 mls/hr 01/24/24 04:00 01/24/24 08:54 Sod 4.5 gm/ Dextrose IV 02/02/24 19:59 Infused Q12H MOSHE Infusion Protocol Insulin Aspart 0 units 01/23/24 21:00 01/24/24 08:46 Insulin Aspart Per Unit Charge SC 02/22/24 20:59 Not Given ACHS MOSHE Levothyroxine Sodium 25 mcg 01/24/24 06:30 01/24/24 06:16 Levothyroxine Sodium 25 Mcg Tablet PO 02/23/24 06:29 25 mcg DAILYBB MOSHE Administration *Dolutegravir- 1 each 01/24/24 09:00 01/24/24 08:32 Rilpivirine*Non-Form N/A 02/23/24 08:59 1 ea Patient's Own Med QAM MOSHE Administration Past Medical History Medical History ESRD (end stage renal disease) on dialysis Septic shock History of kidney stones Osteoarthritis Chronic lower back pain History of pancreatitis DM type 2 (diabetes mellitus, type 2) History of skin cancer [place] (hard of hearing) HLD (hyperlipidemia) History of myocardial infarction 2016 & 2019 Sleep apnea no device Diverticulosis GERD (gastroesophageal reflux disease) IBS (irritable bowel syndrome) Precancerous lesion rectal CAD (coronary artery disease) Per patient, stenting x 5 in 2016 and restenting of 1 vessel performed in July 2020 Depression HIV (human immunodeficiency virus infection) Exercise / Class Metabolic Activity II 4-5 Yardwork/Stairs/Walk up hill Past Family History Family History Mother Heart disease Past Surgical History Surgical History S/P ureteral stent placement History of removal of ureteral stent History of cystoscopy History of colonoscopy History of cholecystectomy History of cardiac catheterization 2016 - stents 2019 -- restenting x 1. [facility] No pertinent past surgical history Past Anesthesia History No Hx of Anesthesia Complications and No Family Hx of Anesthesia Complications History of PONV No Hx of PONV and No Hx of Motion Sickness Social History Smoking Status: Former smoker tobacco type: cigarettes Do You Dip or Chew Tobacco: No Hx Alcohol Use: Yes Alcohol type: beer, wine and hard liquor alcohol intake frequency: holidays/special occasions only Hx Substance Use: No substance use type: does not use Review of Systems denies fever/cough/ colds/ chest pain/ SOB/ MORGAN denies MORGAN Physical Exam Vital Signs Last Vital Signs Temp 36.6 C 01/24/24 11:31 Pulse 76 01/24/24 11:31 Resp 20 01/24/24 11:31 BP 117/69 01/24/24 11:31 Pulse Ox 97 01/24/24 11:31 O2 Del Method Room Air 01/24/24 11:31 ENMT Mouth: no TMJ abnormality and no dentition abnormality Thyromental Distance: > or= 3.5 Finger Breadths Mallampati Class: II Neck neck extension not limited Respiratory normal respiratory effort; no respiratory distress Auscultation: lungs clear to auscultation bilaterally Cardiovascular Rate/Rhythm: regular rate and regular rhythm Neurologic moves all extremities Psychiatric Orientation: alert and oriented x 3 Testing Laboratory Results 01/24/24 07:04 01/24/24 07:04 PT 10.9 Seconds (9.0-12.0) 01/23/24 15: INR 1.0 (0.9-1.1) 01/23/24 15:33 Blood Type A Positive 01/23/24 15:33 Antibody Screen NEGATIVE 01/23/24 15:33 01/24/24 01/24/24 11:13 08:27 POC Glucose 133 H 141 H
--- NOTE | 2024-01-24 13:06 | Anesthesiology Progress Note ---
Date of Service January 24, 2024 Anesthesia Post Procedure Vital Signs Vital Signs: Temp Pulse Pulse Resp BP BP BP 01/24/24 12:07 36.6 C 69 18 112/63 01/24/24 11:31 36.6 C 76 20 117/69 01/24/24 07:38 36.5 C 75 18 111/73 01/24/24 05:50 36.5 C 72 16 112/64 01/24/24 05:33 36.5 C 73 16 118/70 01/24/24 04:33 36.4 C L 73 16 126/75 01/24/24 03:33 36.5 C 74 16 100/57 L 01/24/24 03:03 36.5 C 89 16 95/56 L 01/24/24 02:48 36.5 C 71 16 98/59 L 01/24/24 02:29 36.5 C 72 16 116/63 01/23/24 23:13 36.4 C L 75 16 111/72 01/23/24 23:13 36.4 C L 75 16 111/72 01/23/24 22:59 36.4 C L 76 16 105/53 L 01/23/24 21:59 36.4 C L 79 16 97/55 L 01/23/24 21:57 77 01/23/24 20:59 36.5 C 83 16 131/66 01/23/24 20:29 36.5 C 88 16 120/59 L 01/23/24 20:14 36.4 C L 81 16 110/66 01/23/24 19:59 36.6 C 85 16 143/80 H 01/23/24 19:50 36.4 C L 90 16 130/83 01/23/24 19:02 77 01/23/24 18:42 01/23/24 18:42 36.5 C 77 18 122/74 01/23/24 17:54 81 17 108/69 01/23/24 17:30 85 20 108/68 01/23/24 16:30 87 19 113/66 01/23/24 16:05 88 01/23/24 16:00 89 20 113/68 01/23/24 15:46 94 H 15 115/69 01/23/24 15:17 01/23/24 15:17 93 H 17 115/69 01/23/24 15:07 36.1 C L 110 H 19 90/65 L Pulse Ox O2 Del Method 01/24/24 12:07 99 Room Air 01/24/24 11:31 97 Room Air 01/24/24 07:38 100 Room Air 01/24/24 05:50 99 01/24/24 05:33 98 01/24/24 04:33 99 01/24/24 03:33 98 01/24/24 03:03 98 01/24/24 02:48 98 01/24/24 02:29 98 01/23/24 23:13 100 Room Air 01/23/24 23:13 100 01/23/24 22:59 99 01/23/24 21:59 98 01/23/24 21:57 01/23/24 20:59 98 01/23/24 20:29 98 01/23/24 20:14 98 01/23/24 19:59 98 01/23/24 19:50 99 01/23/24 19:02 01/23/24 18:42 Room Air 01/23/24 18:42 100 Room Air 01/23/24 17:54 98 Room Air 01/23/24 17:30 96 Room Air 01/23/24 16:30 94 Room Air 01/23/24 16:05 01/23/24 16:00 94 Room Air 01/23/24 15:46 100 01/23/24 15:17 99 Room Air 01/23/24 15:17 100 Room Air 01/23/24 15:07 99 Room Air Transfer of Care Handoff Completed per policy Notes Mental Status: alert / awake / arousable and participated in evaluation Patient Amnestic to Procedure: Yes Nausea / Vomiting: adequately controlled Pain: adequately controlled Airway Patency, RR, SpO2: stable & adequate BP & HR: stable & adequate Hydration State: stable & adequate Anesthetic Complications: no major complications apparent and Pt Satisfied with anesthetic care
--- NOTE | 2024-01-24 13:14 | GI REPORT ---
Patient Name: Tad Silvestre Procedure Date: 01/24/2024 12:21 PM Date of : 1955 Admit Type: Inpatient Age: 68 Gender: Male Attending MD: Gianfranco Khalil DO, Procedure: Upper GI endoscopy Providers: Gianfranco Khalil DO Referring MD: Antonio Colon Indications: Iron deficiency anemia, Melena Medicines: Monitored Anesthesia Care Complications: No immediate complications. Estimated Blood Loss: Estimated blood loss: none. Procedure: Pre-Anesthesia Assessment: - Prior to the procedure, a History and Physical was performed, and patient medications and allergies were reviewed. The patient's tolerance of previous anesthesia was also reviewed. The risks and benefits of the procedure and the sedation options and risks were discussed with the patient. All questions were answered, and informed consent was obtained. Prior Anticoagulants: The patient has taken no anticoagulant or antiplatelet agents except for aspirin. ASA Grade Assessment: III - A patient with severe systemic disease. After reviewing the risks and benefits, the patient was deemed in satisfactory condition to undergo the procedure. After obtaining informed consent, the endoscope was passed under direct vision. Throughout the procedure, the patient's blood pressure, pulse, and oxygen saturations were monitored continuously. The Colonoscope was introduced through the mouth, and advanced to the third part of duodenum. The upper GI endoscopy was accomplished without difficulty. The patient tolerated the procedure well. Findings: The esophagus was normal. Localized mild inflammation characterized by erythema was found in the gastric antrum. Biopsies were taken with a cold forceps for histology. One oozing linear duodenal ulcer was found in the duodenal bulb. The lesion was 10 mm in largest dimension. Area was unsuccessfully injected with 3 mL of a 0.1 mg/mL solution of epinephrine for hemostasis. Fulguration to stop the bleeding by bipolar probe was successful. Diffuse moderately erythematous mucosa without active bleeding and with no stigmata of bleeding was found in the duodenal bulb, in the second portion of the duodenum and in the third portion of the duodenum. Impression: - Normal esophagus. - Gastritis. Biopsied. - Oozing duodenal ulcer. Treatment successful. Treated with epinephrine and bipolar cautery. - Erythematous duodenopathy. Recommendation: - [facility] care. - Clear liquid diet. - Continue present medications. - Await pathology results. - Repeat upper endoscopy in 8 weeks to check healing. Gianfranco SandeepVanesa Remi, DO 01/24/2024 1:13:55 PM This report has been signed electronically. Note Initiated On: 01/24/2024 12:21 PM Number of Addenda: 0 I attest to the content of the Intraoperative Record and orders documented therein, exceptions below {[id number]}
--- NOTE | 2024-01-24 13:33 | Hospitalist Progress Note ---
Date of Service January 24, 2024 Assessment & Plan (1) Acute blood loss anemia: (2) Upper GI bleed: (3) Acute GI bleeding: Plan: Patient is a 68 y/o male with ESRD on HD, insulin-requiring DM2, chronic systolic HF, CAD s/p stent, chronic LBBB, HTN, hyperlipidemia, HIV on treatment, chronic anemia, and other history as outlined who presented to the ED today with bloody bowel movements since one day. Last colonoscopy during admission in December showed polyps x 3, which were removed, and diverticulosis. CT abdomen and pelvis on admission did not show any acute abnormality to explain GI bleeding. Hgb has dropped from 11.6 on 01/15/24 to 7.4 on 01/23/24. Status post 1 unit of transfusion Status post EGD on January 24, 2024-normal esophagus, gastritis, oozing duodenal ulcer. Treated successfully; treated with epinephrine and bipolar cautery Discussed with GI; will need 72 hours of Protonix drip, then twice daily then after. GI plans to repeat endoscopy in 8 weeks. Currently on clear liquid diet Monitor for rebleeding (4) ESRD (end stage renal disease) on dialysis: Plan: New start HD from last month - last HD was a day prior to admission. Follows at [facility] for possible transplant. Nephrology on board; dialysis as per nephrology (5) HIV (human immunodeficiency virus infection): Plan: Chronic, stable Continue outpatient regimen - will need to see if pt can bring from home Keep outpatient f/u with Infectious Disease (6) Hypertension: Plan: Chronic, stable Will hold BP meds for now due to active GI blood loss (7) CAD (coronary artery disease): Plan: Chronic, stable - denies angina symptoms at present Holding anti-platelets in view of acute blood loss (8) DM type 2 (diabetes mellitus, type 2): Plan: Chronic, stable Insulin sliding scale Accuchecks Plan DVT prophylaxis SCDs Full code Time spent evaluating patient, direct bedside care, chart review, placing orders, interpretation of diagnostic studies, discussion with consultants, patient, and family members, as well as other required patient management activities is 50 minutes Please note the above document was generated using voice recognition software. It may contain grammatical, syntax or spelling errors. Any formal questions or concerns about the content, text or information contained within the body of this dictation should be directly addressed to the provider for clarification Admission and Anticipated Discharge Date Admission Date: January 23, 2024 Subjective Patient seen and examined at bedside. He reports that he is feeling better compared to yesterday. No events overnight Review of Systems Review of Systems: All systems reviewed & are unremarkable except as noted in Subjective Physical Exam Physical Exam: Constitutional: Alert oriented x 3; not in distress. Respiratory: normal respiratory effort, lungs clear to auscultation, no wheeze, rales, rhonchi. Normal insp/exp effort, no accessory muscle use Cardiovascular: RRR, no murmur, no edema Vessels: no JVD or carotid bruit Chest: normal inspection of chest Abdomen: normal bowel sounds, soft, nontender, no hepatosplenomegaly Musculoskeletal: no cyanosis or clubbing, extremities motor strength 5/5 Skin: no rashes, warm and dry normal turgor Neurologic: PERRL, EOMI, accommodation nl, no face palsy, no dysarthria CN's II- XI intact bilaterally and moves all extremities Psychiatric: A+Ox3, euthymic affect Results & Data Results & Data Vital Signs (Past 12 Hours) Vital Signs Temp Pulse Pulse Resp BP BP Pulse Ox 01/24/24 13:21 104 H 16 118/80 99 01/24/24 13:06 116 H 16 123/85 99 01/24/24 12:07 36.6 C 69 18 112/63 99 01/24/24 11:31 36.6 C 76 20 117/69 97 01/24/24 07:38 36.5 C 75 18 111/73 100 01/24/24 05:50 36.5 C 72 16 112/64 99 01/24/24 05:33 36.5 C 73 16 118/70 98 01/24/24 04:33 36.4 C L 73 16 126/75 99 01/24/24 03:33 36.5 C 74 16 100/57 L 98 01/24/24 03:03 36.5 C 89 16 95/56 L 98 01/24/24 02:48 36.5 C 71 16 98/59 L 98 01/24/24 02:29 36.5 C 72 16 116/63 98 O2 Del Method 01/24/24 13:21 Room Air 01/24/24 13:06 Room Air 01/24/24 12:07 Room Air 01/24/24 11:31 Room Air 01/24/24 07:38 Room Air 01/24/24 05:50 01/24/24 05:33 01/24/24 04:33 01/24/24 03:33 01/24/24 03:03 01/24/24 02:48 01/24/24 02:29 (5) HIV (human immunodeficiency virus infection) HIV symptom status: unspecified Qualified Code(s): B20 - Human immunodeficiency virus [HIV] disease (6) Hypertension Hypertension type: unspecified Qualified Code(s): I10 - Essential (primary) hypertension (7) CAD (coronary artery disease) Associated angina: unspecified whether angina present Coronary Disease- Associated Artery/Lesion type: [place] artery [place] vs. transplanted heart: [place] heart Qualified Code(s): I25.10 - Atherosclerotic heart disease of [place] coronary artery without angina pectoris (8) DM type 2 (diabetes mellitus, type 2) Chronic kidney disease stage: on chronic dialysis Diabetes mellitus complication detail: with chronic kidney disease Diabetes mellitus complication status: with kidney complications Diabetes mellitus intermediate manager insulin use: with intermediate manager use Qualified Code(s): E11.22 - Type 2 diabetes mellitus with diabetic chronic kidney disease; N18.6 - End stage renal disease; Z79.4 - termite control servicer (current) use of insulin; Z99.2 - Dependence on renal dialysis
[2024-01-24] MEDS: ONDANSETRON INJ 2 MG/ML 2 ML VIAL ONE (14:00)
[2024-01-24] MEDS: GLYCOPYRROLATE 0.2 MG/ML VIAL ONE (14:00)
[2024-01-24] MEDS: LIDOCAINE 2% 2 ML VIAL/AMP(20MG/ML) INFIL ONE (14:00)
[2024-01-24] MEDS: PROPOFOL IV EMULSION 10 MG/ML 20 ML VIAL IV ONE ×2 (14:01)
[2024-01-24] MEDS: fentaNYL citrate PF 100 MCG/2 ML VIAL ONE (14:27)
[2024-01-24 14:39] LABS: Hematocrit (blood only) 31.5 % (42.0-52.0); Hemoglobin 10.2 g/dl (14.0-18.0)
--- NOTE | 2024-01-24 15:08 | Electrocardiogram Report ---
Test Reason : Blood Pressure : / mmHG Vent. Rate : 094 BPM Atrial Rate : 094 BPM P-R Int : 196 ms QRS Dur : 150 ms QT Int : 414 ms P-R-T Axes : 054 -22 059 degrees QTc Int : 517 ms Normal sinus rhythm Left bundle branch block Abnormal ECG When compared with ECG of 15-JAN-2024 17:32, T wave inversion now evident in Inferior leads QT has lengthened Confirmed by Andi Hernandez ([id number]) on 01/24/2024 3:08:33 PM Referred By: Antonio Colon Confirmed By:Benny Hernandez
[2024-01-24] MEDS ORDERED: Nursing to Pharmacy Communication SCH (22:30)
[2024-01-25] MEDS ORDERED: SODIUM CHLORIDE 0.9% 1,000 ML IV PRN (07:00)
[2024-01-25 07:58] LABS: Basophils # (auto) 0.05 K/uL (0.00-0.20); Basophils % (auto) 1.2 %; Eosinophils % (auto) 4.9 %; Hemoglobin 8.9 g/dl (14.0-18.0); Immature Granulocytes # (auto) 0.02 K/uL (0.01-0.20); Immature Granulocytes % (auto) 0.5 %; Lymphocytes % (auto) 36.9 %; Mean Corpuscular Hemoglobin 27.9 pg (25.0-34.0); Mean Corpuscular Hgb Conc 31.8 g/dL (32.0-36.0); Mean Corpuscular Volume 87.8 fL (80.0-100.0); Mean Platelet Volume 9.8 fL (9.4-12.4); Monocytes # (auto) 0.46 K/uL (0.11-0.59); Monocytes % (auto) 11.3 %; Neutrophils # (auto) 1.84 K/uL (1.40-6.50); Neutrophils % (auto) 45.2 %; Platelet Count 164 K/uL (130-400); RDW Coefficient of Variation 14.7 % (11.5-14.5); RDW Standard Deviation 46.7 fL (36.4-46.3); Red Blood Count 3.19 M/uL (4.70-6.10); White Blood Count 4.07 K/ul (4.8-10.8)
[2024-01-25 08:27] LABS: Calcium 9.1 mg/dl (8.6-10.3)
[2024-01-25 08:41] LABS: BUN Creatinine Ratio 6.2 (10-20); Creatinine Clr Calc Pharmacy 14.3 ml/min; Est GFR (African American) 13.2 ml/min; Est GFR (Non-African American) 11.4 ml/min
--- NOTE | 2024-01-25 10:07 | Dialysis Progress Note ---
Date of Service January 25, 2024 Assessment & Plan Admission and Anticipated Discharge Date Admission Date: January 23, 2024 Subjective Assessment & Plan (1) ESRD (end stage renal disease) on dialysis: Newly started on dialysis after many years of CKD 4. No electrolyte problems. Dialysis today without any UF and do 3 K. next HD . No heparin and no fluid removal. (2) Acute GI bleeding: reviewed EGD and did have mildly bleeding ulcer. No heparin today. Had Colonoscopy last week. S/p PRBC with iv lasix. No heparin with dialysis procrit 49876 units with dialysis S--Seen during dialysis. Feels fine and no issues with CVC. EGD did show some bleeding ulcers--cauterized. Physical Exam Physical Exam: General exam: Appears comfortable, no acute distress HEENT: Pupils are equal and reactive to light Neck: No JVD, neck is supple trachea is midline Respiratory system: Clear breath sounds bilaterally. Gastrointestinal: Abdomen is soft, non distended, non tender, bowel sounds are present CVS: Regular rate and rhythm. No murmurs, rubs or gallops Musculoskeletal: No joint or muscle tenderness Extremities: Non tender, no edema, peripheral pulses are present Neuro: Oriented, no tremors, no focal neurological deficits Skin: No rashes Results & Data Vital Signs (Past 12 Hours) Vital Signs Temp Pulse Resp BP BP Pulse Ox O2 Del Method 01/25/24 03:22 36.3 C L 70 20 110/64 99 Room Air 01/24/24 22:51 36.4 C L 87 20 127/79 97 Room Air
[2024-01-25] MEDS: EPOETIN ALFA 20,000 UNITS/ML VIAL IV ONE (11:56)
--- NOTE | 2024-01-25 13:11 | Hospitalist Progress Note ---
Date of Service January 25, 2024 Assessment & Plan (1) Acute blood loss anemia: (2) Upper GI bleed: (3) Acute GI bleeding: Plan: Patient is a 68 y/o male with ESRD on HD, insulin-requiring DM2, chronic systolic HF, CAD s/p stent, chronic LBBB, HTN, hyperlipidemia, HIV on treatment, chronic anemia, and other history as outlined who presented to the ED today with bloody bowel movements since one day. Last colonoscopy during admission in December showed polyps x 3, which were removed, and diverticulosis. CT abdomen and pelvis on admission did not show any acute abnormality to explain GI bleeding. Hgb has dropped from 11.6 on 01/15/24 to 7.4 on 01/23/24. Status post 1 unit of transfusion Status post EGD on January 24, 2024-normal esophagus, gastritis, oozing duodenal ulcer. Treated successfully; treated with epinephrine and bipolar cautery Discussed with GI; will need 72 hours of Protonix drip, then twice daily then after. GI plans to repeat endoscopy in 8 weeks. Advanced to full liquid diet. Monitor for rebleeding (4) ESRD (end stage renal disease) on dialysis: Plan: New start HD from last month - last HD was a day prior to admission. Follows at [place] for possible transplant. Nephrology on board; dialysis today as per nephrology (5) HIV (human immunodeficiency virus infection): Plan: Chronic, stable Continue outpatient regimen - will need to see if pt can bring from home Keep outpatient f/u with Infectious Disease (6) Hypertension: Plan: Chronic, stable Will hold BP meds for now due to active GI blood loss (7) CAD (coronary artery disease): Plan: Chronic, stable - denies angina symptoms at present Holding anti-platelets in view of acute blood loss and GI bleeding. will need to on hold for at least 5 days. (8) DM type 2 (diabetes mellitus, type 2): Plan: Chronic, stable Insulin sliding scale Accuchecks Plan DVT prophylaxis SCDs Full code Time spent evaluating patient, direct bedside care, chart review, placing orders, interpretation of diagnostic studies, discussion with consultants, patient, and family members, as well as other required patient management activities is 50 minutes Please note the above document was generated using voice recognition software. It may contain grammatical, syntax or spelling errors. Any formal questions or concerns about the content, text or information contained within the body of this dictation should be directly addressed to the provider for clarification Admission and Anticipated Discharge Date Admission Date: January 23, 2024 Subjective Patient seen and examined at bedside No sign and symptoms of rebleeding. No overnight significant events Review of Systems Review of Systems: All systems reviewed & are unremarkable except as noted in Subjective Physical Exam Physical Exam: Constitutional: Alert oriented x 3; not in distress. Respiratory: normal respiratory effort, lungs clear to auscultation, no wheeze, rales, rhonchi. Normal insp/exp effort, no accessory muscle use Cardiovascular: RRR, no murmur, no edema Vessels: no JVD or carotid bruit Chest: normal inspection of chest Abdomen: normal bowel sounds, soft, nontender, no hepatosplenomegaly Musculoskeletal: no cyanosis or clubbing, extremities motor strength 5/5 Skin: no rashes, warm and dry normal turgor Neurologic: PERRL, EOMI, accommodation nl, no face palsy, no dysarthria CN's II- XI intact bilaterally and moves all extremities Psychiatric: A+Ox3, euthymic affect Results & Data Results & Data Vital Signs (Past 12 Hours) Vital Signs Temp Pulse Pulse Pulse Resp BP BP 01/25/24 12:30 83 129/76 01/25/24 12:00 88 105/65 01/25/24 11:30 83 121/72 01/25/24 11:00 79 99/62 L 01/25/24 10:30 79 102/61 01/25/24 10:00 86 112/79 01/25/24 09:30 77 125/79 01/25/24 09:25 74 131/78 01/25/24 09:18 36.4 C L 78 01/25/24 03:22 36.3 C L 70 20 110/64 Pulse Ox O2 Del Method 01/25/24 12:30 01/25/24 12:00 01/25/24 11:30 01/25/24 11:00 01/25/24 10:30 01/25/24 10:00 01/25/24 09:30 01/25/24 09:25 01/25/24 09:18 01/25/24 03:22 99 Room Air (5) HIV (human immunodeficiency virus infection) HIV symptom status: unspecified Qualified Code(s): B20 - Human immunodeficiency virus [HIV] disease (6) Hypertension Hypertension type: unspecified Qualified Code(s): I10 - Essential (primary) hypertension (7) CAD (coronary artery disease) Coronary Disease-Associated Artery/Lesion type: [place] artery [place] vs. 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
[2024-01-25] MEDS ORDERED: Nursing to Pharmacy Communication SCH (21:15)
[2024-01-26 06:56] LABS: Basophils # (auto) 0.02 K/uL (0.00-0.20); Basophils % (auto) 0.6 %; Eosinophils # (auto) 0.18 K/uL (0.00-0.50); Eosinophils % (auto) 5.6 %; Hematocrit (blood only) 25.3 % (42.0-52.0); Hemoglobin 8.4 g/dl (14.0-18.0); Immature Granulocytes # (auto) 0.01 K/uL (0.01-0.20); Immature Granulocytes % (auto) 0.3 %; Lymphocytes # (auto) 1.38 K/uL (1.20-3.40); Lymphocytes % (auto) 42.9 %; Mean Corpuscular Hemoglobin 28.2 pg (25.0-34.0); Mean Corpuscular Hgb Conc 33.2 g/dL (32.0-36.0); Mean Corpuscular Volume 84.9 fL (80.0-100.0); Mean Platelet Volume 9.6 fL (9.4-12.4); Monocytes % (auto) 12.4 %; Neutrophils # (auto) 1.23 K/uL (1.40-6.50); Neutrophils % (auto) 38.2 %; Platelet Count 160 K/uL (130-400); RDW Coefficient of Variation 14.7 % (11.5-14.5); Red Blood Count 2.98 M/uL (4.70-6.10); White Blood Count 3.22 K/ul (4.8-10.8)
[2024-01-26 07:18] LABS: BUN Creatinine Ratio 3.8 (10-20); Calcium 9.2 mg/dl (8.6-10.3); Creatinine Clr Calc Pharmacy 20.2 ml/min; Est GFR (Non-African American) 17.3 ml/min; Potassium 3.7 mmol/L (3.5-5.1)
--- NOTE | 2024-01-26 09:51 | Nephrology Progress Note ---
Date of Service January 26, 2024 Assessment & Plan Admission and Anticipated Discharge Date Admission Date: January 23, 2024 Subjective Assessment & Plan (1) ESRD (end stage renal disease) on dialysis: Newly started on dialysis after many years of CKD 4. But still not clear whether he will be ESRD or YASIR needing dialysis No electrolyte problems. next HD . No heparin and no fluid removal. Still makes good amount of urine (2) Acute GI bleeding: reviewed EGD and did have mildly bleeding ulcer. No heparin today. Had Colonoscopy last week. S/p PRBC with iv lasix. No heparin with dialysis procrit 99161 units with dialysis. On protonix drip total for 72 hrs. hgb did drop slightly. will follow. S--had dialysis yesterday. Feels fine and no issues with CVC. EGD did show some bleeding ulcers--cauterized and on protonix drip. hgb slightly lower Physical Exam Physical Exam: General exam: Appears comfortable, no acute distress HEENT: Pupils are equal and reactive to light Neck: No JVD, neck is supple trachea is midline Respiratory system: Clear breath sounds bilaterally. Gastrointestinal: Abdomen is soft, non distended, non tender, bowel sounds are present CVS: Regular rate and rhythm. No murmurs, rubs or gallops Musculoskeletal: No joint or muscle tenderness Extremities: Non tender, no edema, peripheral pulses are present Neuro: Oriented, no tremors, no focal neurological deficits Skin: No rashes Results & Data Vital Signs (Past 12 Hours) Vital Signs Temp Pulse Pulse Pulse Resp BP Pulse Ox 01/26/24 07:26 36.7 C 82 16 117/69 99 01/26/24 03:00 36.4 C L 74 16 132/71 99 01/25/24 22:35 36.7 C 91 H 20 99/60 L 96 01/25/24 21:58 92 H O2 Del Method 01/26/24 07:26 Room Air 01/26/24 03:00 Room Air 01/25/24 22:35 Room Air 01/25/24 21:58
--- NOTE | 2024-01-26 18:09 | Hospitalist Progress Note ---
Date of Service January 26, 2024 Assessment & Plan (1) Acute blood loss anemia: (2) Upper GI bleed: (3) Acute GI bleeding: (4) ESRD (end stage renal disease) on dialysis: (5) HIV (human immunodeficiency virus infection): (6) Hypertension: (7) CAD (coronary artery disease): (8) DM type 2 (diabetes mellitus, type 2): Plan Patient is a 68 y/o male with PMHx significant for ESRD on HD, insulin- requiring DM2, chronic systolic HF, CAD s/p stent, chronic LBBB, HTN, hyperlipidemia, HIV on treatment, chronic anemia who presented to the ED today with bloody bowel movements for the past day. Last colonoscopy during admission in December showed polyps x 3, which were removed, and diverticulosis. Acute GI Bleed BRBPR CT abdomen and pelvis on admission did not show any acute abnormality to explain GI bleeding. Hgb has dropped from 11.6 on 01/15/24 to 6.9 on 01/24/24. Status post 1 unit of transfusion GI consulted, appreciate recs. -Status post EGD on January 24, 2024-normal esophagus, gastritis, oozing duodenal ulcer. Treated successfully; treated with epinephrine and bipolar cautery -Previous provider discussed with GI; will need 72 hours of Protonix drip, then twice daily then after. -GI plans to repeat endoscopy in 8 weeks. Advanced diet. Monitor for rebleeding Pt anxious for discharge. ESRD (end stage renal disease) on dialysis New start HD from last month - last HD was a day prior to admission. Follows at [place] for possible transplant. Nephrology on board -dialysis on admission as per nephrology -next dialysis on 01/27/24 Monitor creatinine HIV (human immunodeficiency virus infection) Chronic, stable Continue outpatient regimen, pt to use home meds Keep outpatient f/u with Infectious Disease Hypertension Chronic, stable BP meds were held due to active GI blood loss Resume with improvement in BP CAD (coronary artery disease) Chronic, stable - denies angina symptoms at present Holding anti-platelets in view of acute blood loss and GI bleeding. Resume as able DM type 2 (diabetes mellitus, type 2) Chronic, stable Insulin sliding scale DVT prophylaxis: SCDs in setting of GI bleed Full code Dispo: PT/OT ordered, home with home health services. Admission and Anticipated Discharge Date Admission Date: January 23, 2024 Subjective Pt was seen in the AM. Stated that he was ready to go home. Denied chest pain, SOB or bloody stools. States that the diarrhea had improved significantly. Review of Systems Review of Systems: All systems reviewed & are unremarkable except as noted in Subjective Physical Exam Physical Exam: General: Alert, oriented. No acute distress Psych: Appropriate mood and affect Neuro: No gross deficits while laying in bed HEENT: NC/AT CV: RRR Resp: Breath sounds clear bilaterally, no increased effort of breathing. Abdomen: Soft, nontender, nondistended Extremities: No edema in lower extremities bilaterally. Results & Data Results & Data Vital Signs (Past 12 Hours) Vital Signs Temp Pulse Pulse Pulse Resp BP Pulse Ox 01/26/24 07:26 36.7 C 82 16 117/69 99 01/26/24 03:00 36.4 C L 74 16 132/71 99 01/25/24 22:35 36.7 C 91 H 20 99/60 L 96 01/25/24 21:58 92 H O2 Del Method 01/26/24 07:26 Room Air 01/26/24 03:00 Room Air 01/25/24 22:35 Room Air 01/25/24 21:58 (5) HIV (human immunodeficiency virus infection) HIV symptom status: unspecified Qualified Code(s): B20 - Human immunodeficiency virus [HIV] disease (6) Hypertension Hypertension type: unspecified Qualified Code(s): I10 - Essential (primary) hypertension (7) CAD (coronary artery disease) Coronary Disease-Associated Artery/Lesion type: [place] artery [place] vs. 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
[2024-01-27] MEDS ORDERED: SODIUM CHLORIDE 0.9% 1,000 ML IV PRN (07:00)
[2024-01-27 07:34] LABS: Hemoglobin 8.4 g/dl (14.0-18.0); Mean Corpuscular Hemoglobin 27.7 pg (25.0-34.0); Mean Corpuscular Hgb Conc 32.3 g/dL (32.0-36.0); Mean Corpuscular Volume 85.8 fL (80.0-100.0); Mean Platelet Volume 9.6 fL (9.4-12.4); Platelet Count 162 K/uL (130-400); RDW Coefficient of Variation 14.9 % (11.5-14.5); RDW Standard Deviation 45.6 fL (36.4-46.3); Red Blood Count 3.03 M/uL (4.70-6.10); White Blood Count 3.46 K/ul (4.8-10.8)
[2024-01-27 08:01] LABS: Albumin Globulin Ratio 1.4 (0.9-2); Albumin Level 3.1 gm/dl (3.4-5.0); Bilirubin,Total 0.4 mg/dl (0.2-1.0); Calcium 9.4 mg/dl (8.6-10.3); Creatinine Clr Calc Pharmacy 15.4 ml/min; Est GFR (African American) 14.5 ml/min; Est GFR (Non-African American) 12.5 ml/min; Globulin 2.2 gm/dl (2.5-4.0); Magnesium 1.8 mg/dl (1.7-2.4); Phosphorus 4.4 mg/dl (2.5-4.9); Total Protein 5.3 gm/dl (6.0-8.3)
[2024-01-27] MEDS: PANTOprazole 40 MG TAB PO SCH (08:12)
--- NOTE | 2024-01-27 10:43 | Dialysis Progress Note ---
Date of Service January 27, 2024 Assessment & Plan Admission and Anticipated Discharge Date Admission Date: January 23, 2024 Subjective Assessment & Plan (1) ESRD (end stage renal disease) on dialysis: Newly started on dialysis after many years of CKD 4. But still not clear whether he will be ESRD or YASIR needing dialysis No electrolyte problems. no volume overload. electrolytes are fine next HD Wednesday as outpt. No heparin and no fluid removal. Still makes good amount of urine (2) Acute GI bleeding: reviewed EGD and did have mildly bleeding ulcer. No heparin today. Had Colonoscopy last week. S/p PRBC with iv lasix. No heparin with dialysis today and also Wednesday but will restart from next week. procrit 53174 units with dialysis. hgb 8.4 same as yesterday. S--had dialysis yesterday. Feels fine and no issues with CVC. EGD did show some bleeding ulcers--cauterized and on protonix drip. hgb slightly lower Physical Exam Physical Exam: General exam: Appears comfortable, no acute distress HEENT: Pupils are equal and reactive to light Neck: No JVD, neck is supple trachea is midline Respiratory system: Clear breath sounds bilaterally. Gastrointestinal: Abdomen is soft, non distended, non tender, bowel sounds are present CVS: Regular rate and rhythm. No murmurs, rubs or gallops Musculoskeletal: No joint or muscle tenderness Extremities: Non tender, no edema, peripheral pulses are present Neuro: Oriented, no tremors, no focal neurological deficits Skin: No rashes Results & Data Vital Signs (Past 12 Hours) Vital Signs Temp Pulse Pulse Resp BP BP Pulse Ox 01/27/24 07:55 36.8 C 112 H 17 130/79 100 01/27/24 07:29 79 01/27/24 03:44 36.6 C 80 16 120/70 97 01/27/24 01:00 94 H 01/26/24 23:36 36.8 C 91 H 18 146/81 H 99 O2 Del Method 01/27/24 07:55 Room Air 01/27/24 07:29 01/27/24 03:44 Room Air 01/27/24 01:00 01/26/24 23:36 Room Air
[2024-01-27] MEDS: EPOETIN ALFA 20,000 UNITS/ML VIAL IV ONE (10:56)
--- NOTE | 2024-01-27 13:53 | Discharge Summary ---
Discharge Summary Date of Service January 27, 2024 Notes For Next Care Provider Please ensure pt follows up with ID- need for ppi however it interacts with pt's HIV medication Juluca. Please ensure close ID followup. Please ensure GI followup. Needs repeat endoscopy in 8 weeks Please ensure close Nephrology followup for ESRD on dialysis Please ensure close monitoring of Hgb after discharge, per GI can resume home antiplatelets. Medication Changes From Visit Per Dr Khalil, GI -can resume home aspirin and prasugrel on discharge -pantoprazole 40mg BID x 6 weeks, then famotidine 40mg BID due to noted pantoprazole interaction with pt's HIV medication Juluca Admission HPI Per Admitting Provider This is a 68 y/o male with ESRD on HD, insulin-requiring DM2, chronic systolic HF, CAD s/p stent, chronic LBBB, HTN, hyperlipidemia, HIV on treatment, chronic anemia, and other history as outlined who presented to the ED today with bloody bowel movements since yesterday. Two weeks ago, had a single blood BM while he was admitted. None since then until yesterday. He had a colonoscopy during that admission (results below). Yesterday, when he woke up early for HD around 3-4 am, he had an urgent watery loose red bowel movement. Since then, he has had at least 6-8 more episodes of bloody diarrhea. He has associated nausea but no vomiting. No significant abdominal pain but states his abdomen feels uncomfortable and bloated. Appetite is decreased, feels like things taste "weird" right now. He reports a history of GERD and multiple stomach issues previously. He last had HD yesterday and didn't note anything out of the ordinary. Today he noted lightheadedness with standing with some near falls and near syncope but no fall or syncopal event. Notes dyspnea with exertion since yesterday but no chest pain, palpitations. Pt is unsure if he had a blood transfusion previously. He was recently admitted to [facility] from 12/31/23-01/14/24 for septic shock, likely secondary to UTI. Hospital stay complicated by acute renal failure on CKD, which resulted in the initiation of HD. Pt was found to have right hydronephrosis with possible nonobstructive nephrolithiasis so ureteral stent placed on 12/30. Pt's baseline hemoglobin appears to be around 11-13. Colonoscopy on 01/07/24 by Case: - Three 4 to 11 mm polyps in the transverse colon and in the cecum, removed with a hot snare. Resected and retrieved. - Diverticulosis in the sigmoid colon. - Non-bleeding internal hemorrhoids. - Several random biopsies were obtained in the entire colon. - Fluid aspiration was performed. Admission Exam Per Admitting Provider GENERAL APPEARANCE: AxOx4, pleasant gentleman no acute distress. HEENT: NC, AT. MMM. EOMI, clear conjunctiva, oropharynx clear. NECK: Supple without lymphadenopathy. No stiffness or restricted ROM. HEART: Normal rate and regular rhythm, normal S1/S1, no m/r/g LUNGS: CTAB, moving air well. No crackles or wheezes are heard. ABDOMEN: Soft, nontender, slightly distended with good bowel sounds heard. EXTREMITIES: Without cyanosis, clubbing or edema. NEUROLOGICAL: Grossly nonfocal. Alert and oriented, moving all 4 extremities. CN not formally tested but appear grossly intact Skin: Warm and dry without any rash. Principal Dx & Hospital Course #1 = Principal Diagnosis (1) Acute blood loss anemia: (2) Upper GI bleed: (3) Acute GI bleeding: (4) ESRD (end stage renal disease) on dialysis: (5) HIV (human immunodeficiency virus infection): (6) Hypertension: (7) CAD (coronary artery disease): (8) DM type 2 (diabetes mellitus, type 2): Plan Patient is a 68 y/o male with PMHx significant for ESRD on HD, insulin- requiring DM2, chronic systolic HF, CAD s/p stent, chronic LBBB, HTN, hyperlipidemia, HIV on treatment, chronic anemia who presented to the ED with bloody bowel movements for the past day. Last colonoscopy during admission in December showed polyps x 3 (which were removed) and diverticulosis. Acute GI Bleed BRBPR Bleeding duodenal Ulcer Gastritis CT abdomen and pelvis on admission did not show any acute abnormality to explain GI bleeding. Hgb dropped from 11.6 on 01/15/24 to 6.9 on 01/24/24. Status post 1 unit of transfusion of pRBCs Home prasugrel and aspirin were placed on hold GI consulted, appreciate recs. -Status post EGD on January 24, 2024. Showed normal esophagus, gastritis, oozing duodenal ulcer. Treated successfully; treated with epinephrine and bipolar cautery -Previous provider discussed with GI at that time, recommended 72 hours of Protonix drip, then twice daily then after. -GI plans to repeat endoscopy in 8 weeks. -Dr. Remi MONROY contacted once more on the day of discharge for further recommendations. He recommended resuming home aspirin and prasugrel. Noted CI or drug interaction between pantoprazole and pt's HIV medication Juluca. Dr Khalil advised pantoprazole 40mg BID x 6 weeks then transitioning to famotidine 40mg BID. Pt was advised to contact his infectious disease specialist after discharge to inform of need for this medication (pantoprazole) and for further recommendations. Pt was in agreement and noted that his ID specialist is easily accessible and will be contacted. His diet was advanced. Close PCP, ID and GI followup after discharge. ESRD (end stage renal disease) on dialysis New start of HD from last month - last HD was a day prior to admission. Follows at [facility] for possible transplant. Nephrology consulted, appreciate recs -dialysis sessions per nephrology Close Nephrology followup after discharge HIV (human immunodeficiency virus infection) Chronic, stable Continued outpatient regimen, pt to use home meds As noted above, Dr. Remi MONROY contacted once more on the day of discharge for further recommendations. Noted CI or drug interaction between pantoprazole and pt's HIV medication Juluca. Dr Khalil advised pantoprazole 40mg BID x 6 weeks then transitioning to famotidine 40mg BID. Pt was advised to contact his infectious disease specialist after discharge to inform of need for this medication (pantoprazole) and for further recommendations. Pt was in agreement and noted that his ID specialist is easily accessible and will be contacted. Close ID followup after discharge. Hypertension Chronic, stable BP meds were held due to active GI blood loss Resume on discharge PCP followup CAD (coronary artery disease) Chronic, stable - denies angina symptoms at present Held anti-platelets in view of acute blood loss and GI bleeding. Per GI can resume home antiplatelets (prasugrel and aspirin) on discharge DM type 2 (diabetes mellitus, type 2) Chronic, stable Insulin sliding scale Resume home regimen on discharge Discharge Exam General: Alert, oriented. No acute distress Psych: Appropriate mood and affect Neuro: No gross deficits while laying in bed HEENT: NC/AT CV: RRR Resp: Breath sounds clear bilaterally, no increased effort of breathing. Abdomen: Soft, nontender, nondistended Extremities: No edema in lower extremities bilaterally. Updated Medication List Medication Instructions Recorded Confirmed Type atorvastatin 40 mg tablet 40 mg PO QAM 01/06/22 01/23/24 History dolutegravir 50 mg-rilpivirine 25 1 tab PO QAM 01/06/22 01/23/24 History mg tablet (Juluca) fluoxetine 20 mg capsule 20 mg PO QAM 01/06/22 01/23/24 History multivitamin 1 tab PO QAM 01/06/22 01/23/24 History omega 2-qcj-ola-fish oil 1,000 mg 1 cap PO QAM 01/06/22 01/23/24 History (120 mg-180 mg) capsule (Fish Oil) calcitriol 0.5 mcg capsule 0.5 mcg PO QAM 10/31/22 01/23/24 History aspirin 81 mg tablet,delayed 81 mg PO DAILY 12/30/23 01/23/24 History release cholecalciferol (vitamin D3) 25 25 mcg PO QAM 12/30/23 01/23/24 History mcg (1,000 unit) capsule (Vitamin D3) coenzyme Q10 10 mg capsule (Co 10 mg PO DAILY 12/30/23 01/23/24 History Q-10) metoprolol succinate 25 mg 25 mg PO QAM 12/30/23 01/23/24 History tablet,extended release 24 hr insulin aspart U-100 100 unit/mL 6 unit (0.06 mL) subcut TIDM #0 mL 01/14/24 01/23/24 Rx (3 mL) subcutaneous pen (Novolog FlexPen U-100 Insulin aspart) insulin glargine 100 unit/mL (3 10 unit (0.1 mL) subcut QAM #0 mL 01/14/24 01/23/24 Rx mL) subcutaneous pen (Basaglar KwikPen U-100 Insulin) prasugrel 10 mg tablet 10 mg PO QAM #30 tabs 01/14/24 01/23/24 Rx levothyroxine 25 mcg tablet 25 mcg PO DAILY 01/23/24 01/23/24 History famotidine 40 mg tablet 40 mg PO BID #60 tabs 01/27/24 Rx pantoprazole 40 mg tablet,delayed 40 mg PO BID #60 tabs 01/27/24 Rx release Hospital Stay Data Consultations 01/23/24 16:49 ED Decision to Admit Stat 01/23/24 18:32 Consult Gastroenterology Routine Consult Nephrology Routine Procedures Performed Operation Date: 01/24/24 16:45 Actual Procedures p EGD Hemostasis - Gianfranco Vidal Case, DO Diagnostic Imagining Performed 01/23/24 16:49 CT abd pelvis wo con Routine Chest X-Ray 01/23/24 00:00 XR chest 1V portable CLINICAL HISTORY: lightheadedness TECHNIQUE: Single frontal radiograph of the chest was obtained. Comparison: Comparison is made to chest radiograph 01/15/2024 FINDINGS: Lines and tubes are stable. Cardiomegaly is noted. The lungs are clear. No evidence of pleural effusion or pneumothorax. IMPRESSION: No acute chest disease. ACT 112: Negative or not required by law. Electronically signed by: Aidan Sung M.D. 01/23/2024 4:23 PM Abdomen/Pelvis CT 01/23/24 16:49 CT abd pelvis wo con CLINICAL HISTORY: bleeding, cannot do con iso ESRD TECHNIQUE: Helical axial images of the abdomen and pelvis were obtained. Automated dose lowering techniques and/or adjustment according to patient size were utilized for this exam. This exam was performed without intravenous contrast. CT DOSE: 1203.95 mGy.cm COMPARISON: Comparison is made to CT abdomen pelvis 12/30/2023 FINDINGS: Lower chest: No acute abnormality. Liver: Unremarkable. No focal lesions are seen. Gallbladder and biliary tree: Patient is status post cholecystectomy. Ph ysiologic prominence of the biliary ducts is noted. Pancreas: Calcifications are seen compatible with chronic pancreatitis. Spleen: Unremarkable. Adrenals: Unremarkable. Kidneys and ureters: Right nephroureteral stent is seen. Right renal cysts are noted. Atrophic appearance of the bilateral kidneys. Bladder: Unremarkable. Reproductive organs: There may be small bilateral hydroceles. Bowel: Diverticulosis is seen without evidence of diverticulitis. Lymph nodes Retroperitoneal: Unremarkable. Pelvic: Unremarkable. Mesenteric: Subcentimeter lymph nodes are noted. Peritoneum: Scarring is noted in the central peritoneum near the pancreas, likely secondary to chronic pancreatitis. Vessels: Atherosclerotic calcifications are seen. Abdominal wall: Left fat containing inguinal hernia. Bones: Unremarkable. IMPRESSION: 1. No acute abnormalities to explain GI bleed.. 2. Changes of chronic pancreatitis. ACT 112: Negative or not required by law. Electronically signed by: Aidan Sung M.D. 01/23/2024 8:41 PM Discharge Instructions Given to Patient (Per Discharging Provider) Mr. Silvestre, You were admitted with concern for bloody stools. You were seen by the rag grader and had a procedure done that showed you had a bleeding duodenal ulcer. You were treated for that. Per Gastroenterology who we spoke to today, they recommend discharge home with the medication pantoprazole to be taken twice a day for SIX WEEKS to prevent bleeding, then followed by the medication famotidine 40mg twice a day. As we discussed, the pantoprazole medication can interfere/interact with your HIV medication, so we recommend CONTACTING YOUR INFECTIOUS DISEASE SPECIALIST AND LETTING THEM KNOW THAT YOU ARE CURRENTLY ON TE PANTOPRAZOLE MEDICATION. Infectious Disease will give you further instructions on how to proceed. Gastroenterology also stated that it is ok to resume your home prasugrel and aspirin that were placed on hold. Gastroenterology would like to follow up with you after discharge. They would also like to repeat an endoscopy in 8 weeks. Your hemoglobin has been stable but you will need close followup with your primary care provider to ensure that your levels remain stable. Please also keep close follow up with nephrology as well for your end stage renal disease. Once again, please keep close follow up with your primary care provider, infectious disease, nephrology and gastroenterology after discharge. Please do not hesitate to come back to the emergency room if your symptoms worsen or return. It was a pleasure taking care of you while you were here! Total Time Total Time Spent Total Time Spent (In Minutes): 75
== END 2024-01-27 15:58 | disposition home health service (06) | DRG 377 ==
LOC: ED 15:05 → 2S 17:25 → SUATTDRO 17:25 → 2S 18:53

== ENCOUNTER 2024-09-21 07:13 | Inpatient (IN) ==
--- NOTE | 2024-09-21 07:35 | Emergency Department Note ---
Impression & Plan Chest pain, Esophagitis, End stage chronic kidney disease ED Provider Note NAME: KULDIP WATSON AGE: 69 SEX: M : 1955 ARRIVES VIA: Walk-In INFORMANT: Patient, ED PROVIDER(S): Ryland Pinzon DO CHIEF COMPLAINT: Chest pain HPI: The patient is a 69-year-old male who has a history of end-stage renal disease who presented to the emergency department by triage for an evaluation of chest pain and abdominal pain. The patient was at dialysis today. They are having trouble using his port. The port was placed last spring but was also revised this August. The patient states they have been having trouble using the port and today he could only have approximately 1 hour of dialysis. The nursing staff at dialysis recommended that he come to the emergency department for further evaluation. The patient denies having any vomiting. He has had a cough recently. He denies having any headache or recent trauma. He has noticed some abdominal distention as well as diffuse abdominal pain. ROS: See above HPI for pertinent positives & negatives. A total of 10 systems reviewed and were otherwise negative. PAST MEDICAL HISTORY: See Below PAST SURGICAL HISTORY: See Below FAMILY HISTORY: See Below SOCIAL HISTORY: See Below HOME MEDICATIONS: See Below ALLERGIES: See Below VITALS: See Below PHYSICAL EXAMINATION: GENERAL: Patient is awake alert in no acute distress patient is resting comfortably and showing no signs of anxiety EYES: The conjunctivae are clear. The pupils are round and reactive. EARS, NOSE, MOUTH AND THROAT: The nose is without any evidence of any deformity. NECK: The neck is nontender and supple. RESPIRATORY: Normal respiratory effort is noted there is no evidence of wheezing rhonchi or rales CARDIOVASCULAR: Regular rate and rhythm noted there no murmurs rubs or gallops normal S1 normal S2. GASTROINTESTINAL: The abdomen is mildly distended. There is no specific guarding or rigidity but there was diffuse tenderness. MUSCULOSKELETAL/EXTREMITIES: There is ecchymosis noted on the left shoulder consistent with the patient's recent history of humerus fracture. SKIN: There is no obvious evidence of any rash. There is no pedal edema or calf tenderness elicited. Dialysis port was noted in the right chest wall. NEUROLOGIC: Patient is awake alert and oriented x3. Gait was steady. MEDICAL DECISION MAKING: The patient is a 69-year-old male who has a history of end-stage renal disease who presented to the emergency department for an evaluation of chest pain. The patient's been experiencing discomfort in his epigastric region as well as his chest. The patient is also been having problems with his dialysis catheter. It was felt that his dialysis catheter has not been working well. It was malpositioned previously and was improved in August. I discussed the patient's laboratory and radiographic studies with him. He was treated with medication in the emergency department and on reevaluation he was significantly improved. I discussed his condition with his primary rotor casting machine operator. Given the patient's issues with dialysis he did recommend I discussed the case with the hospitalist group and the patient could be managed better as an inpatient for further workup. I discussed the case with the [facility] hospitalist group. They have agreed to evaluate the patient. Triage Nursing notes reviewed. Prior medical records reviewed Vital Signs: reviewed and remarkable for no significant abnormalities Differential diagnosis: Cardiac ischemia, aortic dissection, pulmonary embolism, pneumothorax, pneumonia, pericarditis, myocarditis, esophageal rupture, GERD, cholecystitis, pancreatitis, musculoskeletal, as well as other pathologies. ER treatment provided: See below Diagnostics interpreted by me: ECG: EKG was obtained in the emergency department. My interpretation is sinus rhythm at 93 bpm. PVC was noted. Left bundle branch block pattern was noted. This was compared to a tracing from January 23, 2024. No specific changes were noted. Cardiac Monitoring: An order was placed for continuous cardiac monitoring. The monitor shows a rate of 94 bpm with sinus rhythm. Laboratory studies: As stated above and show below. Imaging studies: See below. Radiographic imaging was reviewed by myself Consultation(s): I discussed this case with Dr. Dahl who is the patient's primary rotor casting machine operator. I discussed this case with Lauren who was lamination machine operator for the [facility] Hospitalist group Past Med/Surg History Problem List (Updated 09/21/24 @ 12:53 by Ryland Pinzon DO) End stage chronic kidney disease (Acute) Esophagitis (Acute) Chest pain (Acute) Duodenal ulcer Nephrolithiasis Acute blood loss anemia Upper GI bleed ESRD (end stage renal disease) on dialysis Acute GI bleeding (Acute) Hypertension Peripheral neuropathy Subungual hematoma of fourth toe of left foot Septic shock Hydronephrosis concurrent with and due to calculi of kidney and ureter Metabolic acidosis (Acute) Acute dehydration (Acute) Diarrhea (Acute) YASIR (acute kidney injury) (Acute) DM type 2 (diabetes mellitus, type 2) Immunosuppressed status (Acute) HIV (human immunodeficiency virus infection) CKD (chronic kidney disease) stage 4, GFR 15-29 ml/min History of left bundle branch block (LBBB) CAD (coronary artery disease) Acute hyperglycemia (Acute) Syncope (Acute) Medical History History of COVID-19 2020 Hypertension Diabetes mellitus Hx of sepsis hospitalized at [facility] January 2024 Port-A-Cath in place ESRD (end stage renal disease) on dialysis [facility] in [place] > Tues/ Thurs / Sat History of kidney stones Osteoarthritis Chronic lower back pain History of pancreatitis History of skin cancer [place] (hard of hearing) HLD (hyperlipidemia) History of myocardial infarction 2016 & 2019 Sleep apnea no device Diverticulosis GERD (gastroesophageal reflux disease) IBS (irritable bowel syndrome) Precancerous lesion rectal CAD (coronary artery disease) Per patient, stenting x 5 in 2016 and restenting of 1 vessel performed in July 2020 Depression HIV (human immunodeficiency virus infection) Surgical History History of esophagogastroduodenoscopy (EGD) S/P ureteral stent placement History of removal of ureteral stent History of cystoscopy History of colonoscopy History of cholecystectomy History of cardiac catheterization 2016 - stents 2019 -- restenting x 1. [facility] Family History Mother Heart disease Social History Smoking Status: Never smoker Tobacco Type: Cigarettes Second Hand Exposure: No; Do You Dip or Chew Tobacco: No; Hx Alcohol Use: Yes Alcohol type: beer, wine and hard liquor Alcohol Intake Frequency: Monthly or Less Hx Substance Use: No Preferred Language: Marshallese Communication Ability: Effective Lead Cashier Required: No Beliefs That Will Affect Care: None Current Living Situation: Alone Feels Safe at Home: Yes Assistive Devices: CPAP and Glasses Allergies Allergies Allergy/AdvReac Type Severity Reaction Status Date / Time No Known Allergies Allergy Verified 09/21/24 09:20 Home Meds Home Medications Medication Instructions Recorded Confirmed atorvastatin 40 mg tablet 40 mg PO QAM 01/06/22 09/21/24 dolutegravir 50 mg-rilpivirine 25 1 tab PO QAM 01/06/22 09/21/24 mg tablet (Juluca) fluoxetine 20 mg capsule 20 mg PO QAM 01/06/22 09/21/24 multivitamin 1 tab PO QAM 01/06/22 09/21/24 aspirin 81 mg tablet,delayed 81 mg PO QAM 12/30/23 09/21/24 release cholecalciferol (vitamin D3) 25 25 mcg PO QAM 12/30/23 09/21/24 mcg (1,000 unit) capsule (Vitamin D3) coenzyme Q10 10 mg capsule (Co 10 mg PO DAILY 12/30/23 09/21/24 Q-10) metoprolol succinate 25 mg 25 mg PO QAM 12/30/23 09/21/24 tablet,extended release 24 hr levothyroxine 25 mcg tablet 25 mcg PO QAM 01/23/24 09/21/24 nifedipine 30 mg tablet,extended 30 day PO DAILY ##0 03/20/24 09/21/24 release insulin aspart 10 unit subcut TIDWMEAL 09/21/24 09/21/24 (niacinamide)(U-100) 100 unit/mL(3 mL) subcutaneous pen (Fiasp FlexTouch U-100 Insulin) Previous Rx's Medication Instructions Recorded insulin glargine 100 unit/mL (3 10 unit (0.1 mL) subcut QAM #0 mL 01/14/24 mL) subcutaneous pen (Basaglar KwikPen U-100 Insulin) prasugrel 10 mg tablet 10 mg PO QAM #30 tabs 01/14/24 pantoprazole 40 mg tablet,delayed 40 mg PO BID #60 tabs 01/27/24 release Results & Data (ED) Vital Signs Vital Signs - 24 hr 09/21/24 07:15 09/21/24 07:29 09/21/24 07:31 Temperature 36.7 C Temperature Source Temporal Artery Scan Pulse Rate 98 H 98 H Pulse Rate from SpO2 Sensor Pulse Rhythm Regular Regular Pulse Strength Normal Respiratory Rate 20 20 Respiratory Effort / Characteristics Non-Labored Spontaneous Respiratory Depth Normal Respiratory Pattern Regular Blood Pressure 108/78 141/84 H Blood Pressure Mean 88 93 Blood Pressure Position Sitting Pulse Oximetry 100 100 Oxygen Delivery Method Room Air Room Air Sepsis Recent Fever Within 48 Hours No Sepsis New/Unexplained Change in Mental Status No Sepsis Action Taken by Nursing No Action Required 09/21/24 07:39 09/21/24 07:50 09/21/24 08:09 Temperature Temperature Source Pulse Rate 93 H 90 Pulse Rate from SpO2 Sensor 90 Pulse Rhythm Pulse Strength Respiratory Rate 18 18 Respiratory Effort / Characteristics Non-Labored Spontaneous Respiratory Depth Normal Respiratory Pattern Blood Pressure Blood Pressure Mean Blood Pressure Position Pulse Oximetry 98 Oxygen Delivery Method Room Air Sepsis Recent Fever Within 48 Hours Sepsis New/Unexplained Change in Mental Status Sepsis Action Taken by Nursing 09/21/24 08:19 09/21/24 08:33 09/21/24 09:00 Temperature Temperature Source Pulse Rate 87 84 89 Pulse Rate from SpO2 Sensor 84 89 Pulse Rhythm Pulse Strength Respiratory Rate 15 27 H Respiratory Effort / Characteristics Respiratory Depth Respiratory Pattern Blood Pressure 125/79 117/77 Blood Pressure Mean 94 90 Blood Pressure Position Pulse Oximetry 96 97 Oxygen Delivery Method Sepsis Recent Fever Within 48 Hours Sepsis New/Unexplained Change in Mental Status Sepsis Action Taken by Nursing 09/21/24 09:30 09/21/24 10:03 09/21/24 10:30 Temperature Temperature Source Pulse Rate 90 95 H 94 H Pulse Rate from SpO2 Sensor 89 94 H 87 Pulse Rhythm Pulse Strength Respiratory Rate 21 18 17 Respiratory Effort / Characteristics Respiratory Depth Respiratory Pattern Blood Pressure 116/64 133/81 124/79 Blood Pressure Mean 105 98 94 Blood Pressure Position Pulse Oximetry 97 95 95 Oxygen Delivery Method Sepsis Recent Fever Within 48 Hours Sepsis New/Unexplained Change in Mental Status Sepsis Action Taken by Longterm Medications Current Medication List: was personally reviewed by me Laboratory Data Attestation: I reviewed the patient's lab results. 09/21/24 07:40 09/21/24 07:40 Lab Results 09/21/24 Range/Units 07:40 WBC 9.75 (4.8-10.8) K/ul RBC 4.83 (4.70-6.10) M/uL Hgb 13.3 L (14.0-18.0) g/dl Hct 39.2 L (42.0-52.0) % MCV 81.2 (80.0-100.0) fL MCH 27.5 (25.0-34.0) pg MCHC 33.9 (32.0-36.0) g/dL RDW Std Deviation 39.3 (36.4-46.3) fL RDW Coeff of Meera 13.7 (11.5-14.5) % Plt Count 365 (130-400) K/uL MPV 8.5 L (9.4-12.4) fL Immature Gran % (Auto) 0.6 % Neut % (Auto) 72.7 % Lymph % (Auto) 16.7 % Evangeline % (Auto) 9.0 % Eos % (Auto) 0.7 % Baso % (Auto) 0.3 % Neut # (Auto) 7.08 H (1.40-6.50) K/uL Lymph # (Auto) 1.63 (1.20-3.40) K/uL Evangeline # (Auto) 0.88 H (0.11-0.59) K/uL Eos # (Auto) 0.07 (0.00-0.50) K/uL Baso # (Auto) 0.03 (0.00-0.20) K/uL Immature Gran # (Auto) 0.06 (0.01-0.20) K/uL PT 10.9 (9.0-12.0) Seconds INR 1.0 (0.9-1.1) APTT 29 (21-31) Seconds PTT Ratio 1.1 Sodium 131 L (136-145) mmol/L Potassium 4.1 (3.5-5.1) mmol/L Chloride 98 (98-107) mmol/L Carbon Dioxide 21 (21-32) mmol/L Anion Gap 12 H (3-11) BUN 60 H (6-23) mg/dl Creatinine 3.18 H (0.6-1.4) mg/dl Est Cr Clr Drug Dosing 21.3 ml/min eGFR 20.08 BUN/Creatinine Ratio 18.9 (10-20) Glucose 280 H (70-99(Fasting)) mg/dl Calcium 9.6 (8.6-10.3) mg/dl Magnesium 2.4 (1.7-2.4) mg/dl Total Bilirubin 0.9 (0.2-1.0) mg/dl AST 22 (13-39) U/L ALT 19 (7-52) U/L Alkaline Phosphatase 137 H (34-104) U/L Troponin I High Sens 19.7 (0-20) pg/ml Total Protein 7.4 (6.0-8.3) gm/dl Albumin 4.6 (3.4-5.0) gm/dl Globulin 2.8 (2.5-4.0) gm/dl Albumin/Globulin Ratio 1.6 (0.9-2) Lipase 14 (11-82) U/L Adenovirus (PCR) Not Detected (NotDetected) B. pertussis DNA (PCR) Not Detected (NotDetected) B.parapertussis DNA PCR Not Detected (NotDetected) C. pneumoniae DNA (PCR) Not Detected (NotDetected) Coronavirus OC43 (PCR) Not Detected (NotDetected) Coronavirus HKU1 (PCR) Not Detected (NotDetected) Coronavirus 229E (PCR) Not Detected (NotDetected) SARS-CoV-2 (PCR) Not Detected (NotDetected) Coronavirus NL63 (PCR) Not Detected (NotDetected) Human Metapneumovir PCR Not Detected (NotDetected) Influenza Type A (PCR) Not Detected (NotDetected) Influenza Type B (PCR) Not Detected (NotDetected) M. pneumoniae (PCR) Not Detected (NotDetected) Parainfluenza 1 (PCR) Not Detected (NotDetected) Parainfluenza 2 (PCR) Not Detected (NotDetected) Parainfluenza 3 (PCR) Not Detected (NotDetected) Parainfluenza 4 (PCR) Not Detected (NotDetected) RSV (PCR) Not Detected (NotDetected) Entero/Rhino (PCR) Not Detected (NotDetected) Administered Medications Morphine Sulfate (Morphine Sulfate 4 Mg/Ml 1 Ml Carp\Vial) 4 mg IV Q15M PRN PRN Reason: Pain Stop: 10/05/24 07:30 Last Admin: 09/21/24 08:29 Dose: 4 mg Documented By: Admin: 09/21/24 07:56 Dose: 4 mg Documented By: MUNA Discontinued Medications Al Hydrox/Mg Hydrox/Simethicone (Aluminum/Magnesium Susp 30 Ml Udc) 30 ml PO NOW STA Stop: 09/21/24 10:06 Last Admin: 09/21/24 10:23 Dose: 30 ml Documented By: MUNA Ondansetron HCl (Ondansetron Inj 2 Mg/Ml 2 Ml Vial) 4 mg IV NOW STA Stop: 09/21/24 07:32 Last Admin: 09/21/24 07:55 Dose: 4 mg Documented By: MUAN Imaging Data Attestation: I personally reviewed and interpreted this imaging study as follows: My Impression: 1 view chest x-ray and KUB were obtained in the emergency department. My interpretation is enlargement of the gastric shadow. There is no free air or definite filtrate, final reports below. Radiologist's Impression: Chest X-Ray 09/21/24 07:31 EXAM: XR chest 1V portable CLINICAL HISTORY: CHEST/ABD PAIN JMT TECHNIQUE: An X-ray image of the chest is obtained in frontal projection. COMPARISON: No prior studies are available for comparison. FINDINGS: Right central vascular access with its tip reaching the right side of the heart, possibly at right atrium. Elevated left copula of the diaphragm with underlying marked gastric distension. Pulmonary Parenchyma: Prominent bronchovascular markings bilateral and hilar vessels, advised for clinical correlation. No evidence of consolidation, collapse, or focal opacities. No pulmonary nodules are identified. No evidence of pleural effusion or pleural thickening. Heart and Mediastinum: Apparent cardiomegaly with dilated unfolded aorta. No mediastinal widening or masses. No hilar or mediastinal lymphadenopathy. Bony Thorax: Bony thorax appears intact without fractures or deformities. Soft Tissues: Soft tissues overlying the chest wall are unremarkable. IMPRESSION: 1. Right central vascular access with its tip reaching the the right side of the heart, possibly at right atrium. 2. Elevated left copula of the diaphragm with underlying marked gastric distension. 3. Prominent bronchovascular markings bilateral and hilar vessels, advised for clinical correlation. 4. Apparent cardiomegaly with dilated unfolded aorta. Electronically signed by Jama Garcia 09-21-2024 08:35 AM KUB X-Ray 09/21/24 07:31 EXAM: XR KUB/Abdomen 1 view CLINICAL HISTORY: CHEST/ABD PAIN. TECHNIQUE: X-ray images of the abdomen were obtained in frontal projection. COMPARISON: No prior studies are available for comparison. FINDINGS: Gas Pattern: Gastric distension by gas seen No evidence of small or large bowel obstruction or distention. Soft Tissues: Soft tissues of the abdomen appear normal without evidence of masses or calcifications. Liver, spleen, and kidneys are of normal size and position. Right hypochondriac surgical clips seen IMPRESSION: 1. Gastric distension by gas seen. 2. Right hypochondriac surgical clips seen. [id number]. Advised for clinical correlation and further work-up if clinically warranted (CT study of abdomen /[id number].[id number].5.1.2 Pelvis)./OBX.5.1.2/OBX.5.1 Electronically signed by Jama Garcia 09-21-2024 08:27 AM Abdomen/Pelvis CT 09/21/24 08:26 CT OF THE ABDOMEN AND PELVIS WITHOUT CONTRAST CLINICAL HISTORY: Abdominal pain. COMPARISON STUDY: CT of the abdomen and pelvis March 09, 2024. KUB performed earlier today. TECHNIQUE: Axial images of the abdomen and pelvis were obtained without IV contrast. Images were reviewed in the axial, sagittal, and coronal planes. Automated exposure control was utilized for the study. A dose lowering technique was utilized adhering to the principles of ALARA. FINDINGS: No pneumatosis, free air or portal venous gas is present. Mild biliary ductal dilatation is unchanged and likely related to cholecystectomy. No hepatic lesions are identified on unenhanced exam. Mild splenomegaly is unchanged. No renal, ureteral or bladder calculi are present. There is no hydronephrosis. Water attenuation bilateral renal lesions are suboptimally assessed on unenhanced exam but favor cysts. Small subcentimeter hypodense right lower pole renal lesion is indeterminate but may represent a hyperdense cyst. There is mild wall thickening at the gastric esophageal junction with adjacent stranding. There is no extraluminal gas. Prominent gastrohepatic ligament lymph nodes measure up to 2 x 0.8 cm. The stomach is mildly distended fluid-filled. Multiple pancreatic parenchymal calcifications are again noted. Mild pancreatic ductal dilatation is similar to prior CT. There are several suspected intraductal calculi which measure up to 1.1 x 0.5 cm. No peripancreatic stranding is noted. Mesenteric stranding is similar to prior exam. Associated prominent mesenteric lymph nodes are unchanged. Index node on image 155 measures 1.1 x 0.7 cm. Tethered appearance of the mesentery and proximal duodenum is unchanged. Upper abdominal collaterals are again noted. Narrowing of the portosplenic confluence is suboptimally assessed on unenhanced exam. There is no evidence for a bowel obstruction. Colonic diverticulosis without evidence for acute diverticulitis. No pelvic lymphadenopathy is present. IMPRESSION: 1. Moderate wall thickening at the GE junction with adjacent stranding. This favors esophagitis/gastritis. No extraluminal gas. Prominent adjacent lymph nodes may be reactive and can be assessed on follow-up studies. Imaging follow- up to ensure resolution and exclude the possibility of an underlying lesion is recommended. Alternately, endoscopy could be performed. 2. No evidence for a bowel obstruction. Colonic diverticulosis. No evidence for acute diverticulitis. 3. Findings consistent with chronic pancreatitis. Multiple pancreatic parenchymal calcifications as well as suspected intraductal calculi. No evidence for acute pancreatitis. 4. Tethered appearance of the proximal duodenum and mesentery with narrowing of the portosplenic confluence with associated collateral formation. These findings are suboptimally assessed on unenhanced exam but similar to prior CT and may be chronic. These may reflect the sequela of chronic pancreatitis. However, a follow-up CT of the abdomen in 3 months to ensure continued stability and exclude the possibility of an underlying neoplastic process is recommended. ACT 112: Positive. There are findings on this exam that require communication between the performing entity and the patient following Patient Test Result Information Act ([place] Act 112) guidelines. Electronically signed by: Igor Roberts M.D. 09/21/2024 9:[address] 09/21/24 08:26 CT chest diagnostic wo con CT DOSE: 1318.65 mGy.cm CLINICAL HISTORY: Chest pain. TECHNIQUE: Multiaxial CT images of the chest were performed without contrast. A dose lowering technique was utilized adhering to the principles of ALARA. COMPARISON STUDY: Chest x-ray earlier today FINDINGS: Stable dialysis catheter. Stable mild elevation of the left hemidiaphragm. There is no pulmonary consolidation or pleural effusion. No pneumothorax. There are a few scattered calcified pulmonary granuloma and there are left hilar lymph node calcifications consistent with prior granulomatous disease. No enlarged adenopathy in the chest. No mediastinal hematoma. No pericardial effusion. There are severe coronary artery calcifications. There is distention of the visualized upper stomach with fluid and gas. There are mild thoracic spine degenerative changes. No acute osseous findings. IMPRESSION: No acute findings. Otherwise described. ACT 112: Negative or not required by law. Electronically signed by: Bandar Thacker M.D. 09/21/2024 9:06 AM Discharge Plan Visit Data Chief Complaint: Chest Pain Stated Complaint: CHEST PAIN ED Provider: Ryland Pinzon Discharge Problem: Chest pain, Esophagitis, End stage chronic kidney disease Patient Disposition: Being Evaluated by Hospitalist Discharge Problem: Chest pain Qualifiers: Chest pain type: unspecified Qualified Code(s): R07.9 - Chest pain, unspecified
[2024-09-21] MEDS: ONDANSETRON INJ 2 MG/ML 2 ML VIAL IV STA (07:55)
[2024-09-21] MEDS: MoRPHine SULFATE 4 MG/ML 1 ML CARP\\VIAL IV PRN (07:56)
--- OUTSIDE RECORDS SUMMARY | 2024-09-21 08:01 | External Medical Summary | Summary of Care ---
Author Name Unknown Organization [facility] Address [address] [place] [address] Phone [phone] Care Team Providers Care It Audit Manager Name Role Phone Abimael Us MD Primary Care Provider [phone] Reason for Visit * Reason Comments eRx-Medication Refill Encounter Details Date Type Department Care Team (Late st Contact Info) Description 08/28/2024 Refill Family Practice [facility] [address] [facility] [place] [address] Abimael Us MD [address] [facility] [place] [address] Type 2 diabetes mellitus with hemoglobin A1c goal of less than 8.0% ([facility]) Allergies No known active allergiesdocumented as of this encounter (statuses as of 08/29/2024) Medications Co Q 10 10 MG Oral Capsule Take by mouth 1 Caplet Dosing Unit daily . Active Aspirin 81 MG Oral Capsule Take by mouth 1 Caplet Dosing Unit daily . Active Multi-Day Oral Tablet Take by mouth 1 Tablet in the morning. Active Vitamin D-3 25 MCG (1000 UT) Oral Capsule Take 1 Capsule by mouth in the morning. Active Metoprolol Succinate ER 25 MG Oral Tablet Extended Release 24 Hour (toPROL XL)Indications: Coronary artery disease involving [place] coronary artery of [place] heart without angina pectoris TAKE 1 TABLET BY MOUTH EVERY DAY IN THE MORNING 90 Tablet 3 01/23/2 024 Active Prasugrel HCl 10 MG Oral Tablet (Effient)Indica tions:Coronary artery disease involving [place] coronary artery of [place] heart without angina pectoris TAKE 1 TABLET BY MOUTH EVERY DAY IN THE MORNING 90 Tablet 024 Active Atorvastatin Calcium 40 MG Oral Tablet (Lipitor)Indica tions:Dyslipide jimmy, goal LDL below 70 TAKE 1 TABLET BY MOUTH EVERY DAY IN THE MORNING 90 Tablet Active Juluca 50-25 MG Oral Tablet Take 1 Tablet by mouth daily. 90 Tablet 3 Active Pen [place] 32G X 4 MM Use as directed. Use to inject insulin 4 times daily E11.9 400 Each Active FLUoxetine HCl 20 MG Oral Capsule (PROzac)Indicat ions:ST elevation (STEMI) myocardial infarction involving left circumflex coronary artery (HCC) TAKE 1 CAPSULE BY MOUTH EVERY DAY 90 Capsule Active Levothyroxine Sodium 25 MCG Oral Tablet (Levoxyl) Take 1 Tablet by mouth daily first thing in the morning. 90 Tablet Active NIFEdipine ER Osmotic Release 30 MG Oral Tablet Extended Release 24 Hour (Procardia XL) Take 1 Tablet by mouth in the morning. In the morning.. 90 Tablet 024 Active Pantoprazole Sodium 40 MG Oral Tablet Delayed Release (Protonix) Take 1 Tablet by mouth in the morning. 90 Tablet Active FreeStyle Carlos 2 SensorIndicatio ns:Type 2 diabetes mellitus with hemoglobin A1c goal of less than 8.0% (HCC) Use as directed. Use one sensor every 14 days for blood sugar E10.65 1 Each Active Fiasp FlexTouch 100 UNIT/ML Subcutaneous Solution Pen-injector (Insulin Aspart (w/Niacinamide) )Indications:Ty pe 2 diabetes mellitus with hemoglobin A1c goal of less than 8.0% (HCC) Inject 10 Units under the skin in the morning and 10 Units at noon and 10 Units before bedtime. With meals. 15 mL 3 4 10:53 AM EDT Active Basaglar KwikPen 100 UNIT/ML Subcutaneous Solution Pen-injector (Insulin Glargine Solostar) INJECT UNDER THE SKIN 22 UNITS IN THE MORNING. 30 mL 1 Active Juluca 50-25 MG Oral Tablet (Dolutegravir-R ilpivirine) Take 1 Tablet by mouth daily. 30 Tablet 11 024 2024 Active vancomycin IV IV (AMBULATORY) Administer 1,000 mg intravenously once a day on Wednesday, , and Wednesday only for 10 days. Administer AFTER dialysis. Labs needed: CBC with diff, BMP and vancomycin level weekly until antibiotic completed. End Date Sep 05, 2024 10 g 024 2023 Active FreeStyle Carlos 2 [place] DeviceIndicatio ns:Type 2 diabetes mellitus with hemoglobin A1c goal of less than 8.0% ([facility]) USE DIRECTED. 1 Each 1 Active FreeStyle Carlos 2 [place] DeviceIndicatio ns:Type 2 diabetes mellitus with hemoglobin A1c goal of less than 8.0% ([facility]) Use as directed. Use to test BG E10.65 1 Each 024 2023 Discontinued Hospital, Clinic, or Other Facility Administered Medication Ordered Dose Route Frequency Start Date End Date Status Albuterol Sulfate (Proventil) (2.5 MG/3ML) 0.083% inhalation solution 2.5 mgIndications:ESRD on dialysis (HCC),Pre-transplant evaluation for ESRD (end stage renal disease) 2.5 mg NEBULIZER PRN 03/24/2024 Acti ve Albuterol Sulfate (Proventil) (5 MG/ML) 0.5% *conc* inhalation solution 2.5 mgIndications:ESRD on dialysis (HCC),Pre-transplant evaluation for ESRD (end stage renal disease) 2.5 mg NEBULIZER PRN 03/24/2024 Acti ve documented as of this encounter (statuses as of 08/29/2024) Active Problems Problem Noted Date Diagnosed Date Catheter-related bloodstream infection Iron deficiency anemia due to chronic blood loss 08/24/2024 Fever 08/24/2024 HIV disease 08/23/2024 Rigors 08/22/2024 AVF (arteriovenous fistula) 07/19/2024 ESRD (end stage renal disease) on dialysis 02/01 History of GI bleed 02/02/2024 Overview (02/02/2024): Duodenal ulcer Duodenal ulcer 02/02/2024 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 05/07/2023 Recurrent major depressive disorder, in full rem ission 05/05/2022 Overweight (BMI 25.0-29.9) 05/02/2022 Dyslipidemia 05/02/2022 Coronary artery disease invo lving [place] coronary artery of [place] heart without angina pectoris 05/02/2022 Type 2 diabetes mellitus wit h hemoglobin A1c goal of less than 8.0% 05/02/2022 Old RI (myocardial infarction) 05/02/2022 Chronic systolic (congestive) heart failure 04/14 Left bundle branch block 05/02/2022 HTN, goal below 130/80 HIV positive documented as of this encounter (statuses as of 08/29/2024) Resolved Problems Problem Noted Date Diagnosed Date Resolved Date Chronic heart failure with p reserved ejection fraction 11/24/2022 02/04/2023 Kidney disease, chronic, sta ge IV (GFR 15-29 ml/min) 05/02/2022 02/02/2024 ARDS (adult respiratory distress syndrome) 06/17/2012 05/02/2022 Acute pancreatitis 06/14/2012 Acute respiratory distress 06/14/2012 0 05/02/2022 documented as of this encounter (statuses as of 08/29/2024) Immunizations Name Administration Dates Next Due COVID-19 mRNA, LNP-s, No Pre serve, 2-Dose Series (Moderna) 11/27/2020,10/24/2020 COVID-19, MRNA-LNP, PF, 50 M CG/0.5 mL, 12 YRS AND ABOVE, IM (MODERNA-Spikevax) 08/05/2021 Covid-19, Mrna, Lnp-s, Pf, B ivalent, 30 Mcg, IM, 12 yrs and above (ZenDay) 09/09/2022 Hepatitis B, 20+ yrs 08/25/2017 Meningococcal MCV4P Conjugat e Vaccine (Menactra) 08/04/2017,02/03/2013 Pneumococcal Conjugate Vacc, 13 Valent (Prevnar) 08/21/2018,07/23/2017 Pneumococcal Polysaccharide PPV23 (Pneumovax) 07/20/2012 Seasonal Influenza Vac., MDV , IM, 0.5 mL (Fluzone) 06/19/2021,05/07/2020,10/05/2019,12/23,08/21/2018 Seasonal Influenza Virus Vac cine, Unspecified Formulation 06/19/2021,10/05/2019,08/21/2018 Seasonal Influenza, Quadriva lent Hd (Fluzone Hd) 06/28/2024,08/12/2023,09/09/2022,06/19 TDAP (age 10 and older)(Boostrix) 07/23/2017 documented as of this encounter Social History Tobacco Use Types Packs/Day Years Used Date Smoking Tobacco: Former Cigarettes 0.3 30 S tarted: 1974 Smokeless Tobacco: Never Alcohol Use Standard Drinks/Week Comments Not Currently 0 (1 standard drink = 0.6 oz pur e alcohol) rarely PHQ-2 Answer Date Recorded PHQ Adult Total [...] money to get more. Never true 01/18/2024 Childcare Answer Date Recorded Do you feel overwhelmed with taking care of a child, family member or friend? No 01/18/2024 Does your family need help f inding childcare? (Household - for ages 0-17 years) Not on file 01/18/2024 Clothing Answer Date Recorded Have you been unable to get clothing when it was really needed? No 01/18/2024 Is your family able to get c lothes or diapers when needed? (Household - for ages 0-17 years) Not on file 01/18/2024 Personal Safety Answer Date Recorded Do you feel unsafe or have concerns for your saf ety? No 08/22/2024 Do you have concerns for you r family's safety? (Household - for ages 0-17 years) Not on file 08/22/2024 Utilities Answer Date Recorded Do you have trouble paying y our heating, water, or electric bill? No 08/22/2024 Is your family able to pay t he heat, water, or electric bill? (Household - for ages 0-17 years) Not on file 08/22/2024 Does your family have access to good internet? (Household - for ages 0-17 years) Not on file 08/22/2024 Employment Status Answer Date Recorded Are you unemployed or without regular income? No 01/18/2024 Does the household have a re gular source of income? (Household - for ages 0-17 years) Not on file 01/18/2024 Social Connections Answer Date Recorded How often do you feel lonely or isolated from th ose around you? Never 01/18/2024 Financial Resource Strain Answer Date R ecorded Do you have any trouble payi ng for your medications, or do you think you might in the future? No 01/18/2024 Does your family have troubl e paying for medicine? (Household - for ages 0-17 years) Not on file 01/18/2024 Transportation Needs Answer Date Record ed READ ONLY Do you have troubl e getting a ride to medical visits or work? Never True 08/22/2024 Does your family have a hard time getting a ride to doctors visits? (Household - for ages 0-17 years) Not on file 08/22/2024 Has lack of transportation k ept you from medical appointments, meetings, work, or from getting things needed for daily living? Check all that apply. No 08/22/2024 Do you (or your family) have trouble finding or paying for a ride (transportation)? (Household - for ages 0-17 years) Not on file 08/22/2024 Housing Stability Answer Date Recorded Do you currently live in a s helter or have no steady place to sleep at night? No 08/22/2024 READ ONLY Do you think you a re at risk of becoming homeless? No 08/22/2024 Does your family worry about paying for your home or becoming homeless? (Household - for ages 0-17 years) Not on file 1 10/23/2023 Are you homeless or worried that you might be in the future? No 08/22/2024 Are you (or your family) pancho eless or worried that you might be in the future? (Household - for ages 0-17 years) Not on file Food Insecurity Answer Date Recorded Do you need food for this week? No 08/22/2024 Are you able to get enough f ood for your family? (Household - for ages 0-17 years) Not on file 08/22/2024 Does your family need food t his week? (Household - for ages 0-17 years) Not on file 08/22/2024 Do you always have enough fo od for your family? (Household - for ages 0-17 years) Not on file 08/22/2024 Sex and Gender Information Value Date Recorded Sex Assigned at Not on file Legal Sex Male 7:00 AM EST Gender Identity Not on file Sexual Orientation Not on file documented as of this encounter Functional Status * Are you deaf or do you have serious difficulty hearing? Answer Date of Assessment Author No 08/22/2024 4:07 PM Aimee Dobbs RN * Are you blind or do you have serious difficulty seeing, even when wearing glasses? Answer Date of Assessment Author No 08/22/2024 4:07 PM Aimee Dobbs RN * Do you have serious difficulty walking or climbing stairs? (5 years old or older) Answer Date of Assessment Author No 08/22/2024 4:07 PM Aimee Dobbs RN * Do you have difficulty dressing or bathing? (5 years old or older) Answer Date of Assessment Author No 08/22/2024 4:07 PM Aimee Dobbs RN * Because of a physical, mental, or emotional condition, do you have difficulty doing errands alone such as visiting a doctors office or shopping? (15 years old or older) Answer Date of Assessment Author No 08/22/2024 4:07 PM Aimee Dobbs RN documented as of this encounter Mental Status * Because of a physical, mental, or emotional condition, do you have serious difficulty concentrating, remembering, or making decisions? (5 years old or older) Answer Entry Date Author No 08/22/2024 4:07 PM Aimee Dobbs RN documented in this encounter Miscellaneous Notes * Telephone Encounter - Charlotte Marley [facility] - 08/29/2024 4:49 PM ESTSigned Prescriptions: Disp Refills [facility] Carlos 2 [place] Device 1 Each 1 Sig: USE DIRECTED.Authorizing Provider: ABIMAEL USOrdering User: CHARLOTTE MARLEY documented in this encounter Plan of Treatment Upcoming Encounters Date Type Department Care Team (Late st Contact Info) Description 09/01/2024 3:20 PM EST Office Visit [facility] [address] [facility] [place] [id number] Abimael Us MD [address] [place] [address] 09/19/2024 3:30 PM EST Office Visit Cardiology, [facility] [address] [place] [address] Davy Mota MD [address] [place] [address] 10/13/2024 9:00 AM EST Office Visit [facility] [address] [facility] [place] [address] Abimael Us MD [address] [place] [address] 10/25/2024 12:30 PM EST Office Visit Vascular Surgery, [facility] [address] [facility] [place] [address] Benjamin Cartagena MD [address] [place] [address] Scheduled Procedures Name Priority Associated Diagnoses Date/Ti me COLONOSCOPY FLEXIBLE PROXIMA L DIAGNOSTIC Recall History of colonic polyps Health Maintenance Due Date Last Done Comments Diabetic Eye Exam 1971 Zoster Vaccines (1 of 2) 1972 Cologuard 1998 Fecal Occult Blood Test 1998 Sigmoidoscopy 1998 Hepatitis B Vaccine (2 of 3 - Risk 3-dose series) 09/22/2017 08/25/2017 Pneumococcal Vaccine: 65+ Years (3 of 3 - PPSV23 or PCV20) 10/16/2018 08/21/2018, 07/23/2017, 07/20/2012 Adult Wellness Visit 2019 MENINGOCOCCAL (MENACTRA/MENVEO) (3 - Risk 2-dose series) 08/04/2022 08/04/2017, 02/03/2013 COVID-19 Vaccine ( season) 2024 09/09/2022, 08/05/2021, 11/27/2020, Additional history exists Colonoscopy 01/06/2025 01/07/2024, 060 05/2023, 02/19/2023 Colorectal Cancer Screening 01/06/2025 Depression Monitoring 01/17/2025 01/18/2024 Diabetic Foot Exam 01/17/2025 01/18/2024, 11/24/2022 HbA1c 02/20/2025 08/22/2024, 03/15, 02/02/2024, Additional history exists TSH 08/22/2025 08/22/2024, 01/12, 02/02/2024, Additional history exists DTap/Tdap Vaccines (2 - Td or Tdap) 07/23/2027 07/23/2017 Albumin/Creatinine Ratio Discontinued 05/07/2023, 05/0 11/2021 RETIRED - COLONOSCOPY-ANNUAL AGES 18-100 Discontinued 01/07/2024, 02/19/2023, 02/19/2023 AAA Screening Completed 05/08/2024, 01/11, 01/29/2020, Additional history exists Nephrology Referral Discontinued 05/08/2024 Influenza Vaccine (FLU shot) Completed 06/28/2024, 08/12/2023, 09/09/2022, Additional history exists HPV (Gardasil) Vaccine Aged Out No lo nger eligible based on patient's age to complete this topic documented as of this encounter Medical Devices Not on filedocumented as of this encounter Visit Diagnoses Diagnosis Type 2 diabetes mellitus with hemoglobin A1c goal of less than 8.0% (HCC) documented in this encounter Advance Directives * No Code (Latest Code Status on File) Date Activated Date Inactivated Comments 08/22/2024 3:41 PM 08/26/2024 6:45 PM This order reflects the patients wishes and were consensually agreed upon. Question Answer Comments Discussion of Advance Directives occurred with: Patient * No Code Date Activated Date Inactivated Comments 08/22/2024 3:17 PM 08/22/2024 3:41 PM This order reflects the patients wishes and were consensually agreed upon. Question Answer Comments Discussion of Advance Directives occurred with: Patient * Full Code Date Activated Date Inactivated Comments 06/14/2012 6:26 PM 06/17/2012 7:43 PM This order r eflects the patients wishes and were consensually agreed upon. Healthcare Agents on File Name Relationship Healthcare Agent Relationshi p Communication Lorin Silvestre [facility] Repr esentative (appointed verbally by patient or by statute hierarchy) Care Teams It Audit Manager Relationship Specialty Start Date End Date Abimael Us MD [address] [address] PCP - General Family Medicine 02/12/22 documented as of this encounter
--- OUTSIDE RECORDS SUMMARY | 2024-09-21 08:01 | External Medical Summary | Summary of Care ---
Author Name Unknown Organization [facility] Address [address] [place] [address] Phone [phone] Care Team Providers Care Cosmetic Consultant Name Role Phone Antonio Colon MD Primary Care Provider [phone] Reason for Visit * Reason Comments NEW PATIENT Here for Today's vis it regarding: Pt slipped on ice 09/06/24 landed L shoulder Location of pain: L shoulder Injury: fell on ice 09/06/24 Recent Imaging: N/A Prior treatment: N/A Prior Surgery: N/A Date of injury or symptoms started: 09/06/24 Goals for this appointment: See what is going on Encounter Details Date Type Department Care Team (Late st Contact Info) Description 09/07/2024 11:45 AM EST Office Visit Orthopaedics [facility] [address] [facility] [place] [address] Delgado Adrian MD [address] [facility] [place] [phone] Other closed displaced fracture of proximal end of left humerus, initial encounter* Allergies No known active allergiesdocumented as of this encounter (statuses as of 09/07/2024) Medications Co Q 10 10 MG Oral [...] Oral Tablet Extended Release 24 Hour (toPROL XL)Indications:Co ronary artery disease involving ugashik coronary artery of ugashik heart without angina pectoris TAKE 1 TABLET BY MOUTH EVERY DAY IN THE MORNING 90 Tablet 3 4 Active Prasugrel HCl 10 MG Oral Tablet (Effient)Indicati ons:Coronary artery disease involving ugashik coronary artery of ugashik heart without angina pectoris TAKE 1 TABLET BY MOUTH EVERY DAY IN THE MORNING 90 Tablet 3 4 Active Atorvastatin Calcium 40 MG Oral Tablet (Lipitor)Indicati ons:Dyslipidemia, goal LDL below 70 TAKE 1 TABLET BY MOUTH EVERY DAY IN THE MORNING 90 Tablet 3 4 Active Juluca 50-25 MG Oral Tablet Take 1 Tablet by mouth daily. 90 Tablet 3 4 Active Pen [place] 32G X 4 MM Use as directed. Use to inject insulin 4 times daily E11.9 400 Each 4 Active FLUoxetine HCl 20 MG Oral Capsule (PROzac)Indicatio ns:ST elevation (STEMI) myocardial infarction involving left circumflex coronary artery (HCC) TAKE 1 CAPSULE BY MOUTH EVERY DAY 90 Capsule 3 4 Active Levothyroxine Sodium 25 MCG Oral Tablet (Levoxyl) Take 1 Tablet by mouth daily first thing in the morning. 90 Tablet 3 4 Active NIFEdipine ER Osmotic Release 30 MG Oral Tablet Extended Release 24 Hour (Procardia XL) Take 1 Tablet by mouth in the morning. In the morning.. 90 Tablet 3 4 Active Pantoprazole Sodium 40 MG Oral Tablet Delayed Release (Protonix) Take 1 Tablet by mouth in the morning. 90 Tablet 3 4 Active FreeStyle Carlos 2 SensorIndications :Type 2 diabetes mellitus with hemoglobin A1c goal of less than 8.0% (HCC) Use as directed. Use one sensor every 14 days for blood sugar E10.65 1 Each 4 Active Fiasp FlexTouch 100 UNIT/ML Subcutaneous Solution Pen-injector (Insulin Aspart (w/Niacinamide))I ndications:Type 2 diabetes mellitus with hemoglobin A1c goal of less than 8.0% (HCC) Inject 10 Units under the skin in the morning and 10 Units at noon and 10 Units before bedtime. With meals. 15 mL 3 04/27/2024 10:53 AM EDT 4 Active Basaglar KwikPen 100 UNIT/ML Subcutaneous Solution Pen-injector (Insulin Glargine Solostar) INJECT UNDER THE SKIN 22 UNITS IN THE MORNING. 30 mL 1 4 Active Juluca 50-25 MG Oral Tablet (Dolutegravir-Ril pivirine) Take 1 Tablet by mouth daily. 30 Tablet 11 4 08/17/20 25 Active FreeStyle Carlos 2 Monroe DeviceIndications :Type 2 diabetes mellitus with hemoglobin A1c goal of less than 8.0% ([facility]) USE DIRECTED. 1 Each 1 4 Active Hospital, Clinic, or Other Facility Administered Medication Ordered Dose Route Frequency Start Date End Date Status Albuterol Sulfate (Proventil) (2.5 MG/3ML) 0.083% inhalation solution 2.5 mgIndications:ESRD on dialysis ([facility]),Pre-transplant evaluation for ESRD (end stage renal disease) 2.5 mg NEBULIZER PRN 03/24/2024 Acti ve Albuterol Sulfate (Proventil) (5 MG/ML) 0.5% *conc* inhalation solution 2.5 mgIndications:ESRD on dialysis ([facility]),Pre-transplant evaluation for ESRD (end stage renal disease) 2.5 mg NEBULIZER PRN 03/24/2024 Acti ve documented as of this encounter (statuses as of 09/07/2024) Active Problems Problem Noted Date Diagnosed Date Iron deficiency anemia due to chronic blood loss 08/24/2024 HIV disease 08/23/2024 AVF (arteriovenous fistula) 07/19/2024 ESRD (end stage renal disease) on dialysis 02/01 History of GI bleed 02/02/2024 Overview (02/02/2024): Duodenal ulcer Duodenal ulcer 02/02/2024 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 05/07/2023 Recurrent major depressive disorder, in full rem ission 05/05/2022 Overweight (BMI 25.0-29.9) 05/02/2022 Dyslipidemia 05/02/2022 Coronary artery disease invo lving ugashik coronary artery of ugashik heart without angina pectoris 05/02/2022 Type 2 diabetes mellitus wit h hemoglobin A1c goal of less than 8.0% 05/02/2022 Old VA (myocardial infarction) 05/02/2022 Chronic systolic (congestive) heart failure 04/14 Left bundle branch block 05/02/2022 HTN, goal below 130/80 HIV positive documented as of this encounter (statuses as of 09/07/2024) Resolved Problems Problem Noted Date Diagnosed Date Resolved Date Catheter-related bloodstream infection 08/25/2024 09/01/2024 Fever 08/24/2024 09/01/2024 Rigors 08/22/2024 09/01/2024 Chronic heart failure with p reserved ejection fraction 11/24/2022 02/04/2023 Kidney disease, chronic, sta ge IV (GFR 15-29 ml/min) 05/02/2022 02/02/2024 ARDS (adult respiratory distress syndrome) 06/17/2012 05/02/2022 Acute pancreatitis 06/14/2012 Acute respiratory distress 06/14/2012 0 05/02/2022 documented as of this encounter (statuses as of 09/07/2024) Immunizations Name Administration Dates Next Due COVID-19 [...] Answer Date Recorded PHQ Adult Total Score 0 09/01/2024 Hunger Vital Sign Answer Date Recorded Within the past 12 months, y ou worried that your food would run out before you got the money to buy more. Never true 09/01/20 Within the past 12 months, t he food you bought just didn't last and you didn't have money to get more. Never true 09/01/2024 Childcare Answer Date Recorded Do you feel overwhelmed with taking care of a child, family member or friend? No 09/01/2024 Does your family need help f inding childcare? (Household - for ages 0-17 years) Not on file 09/01/2024 Clothing Answer Date Recorded Have you been unable to get clothing when it was really needed? No 09/01/2024 Is your family able to get c lothes or diapers when needed? (Household - for ages 0-17 years) Not on file 09/01/2024 Personal Safety Answer Date Recorded Do you feel unsafe or have concerns for your saf ety? No 09/01/2024 Do you have concerns for you r family's safety? (Household - for ages 0-17 years) Not on file 09/01/2024 Utilities Answer Date Recorded Do you have trouble paying y our heating, water, or electric bill? No 09/01/2024 Is your family able to pay t he heat, water, or electric bill? (Household - for ages 0-17 years) Not on file 09/01/2024 Does your family have access to good internet? (Household - for ages 0-17 years) Not on file 09/01/2024 Employment Status Answer Date Recorded Are you unemployed or without regular income? No 09/01/2024 Does the household have a re gular source of income? (Household - for ages 0-17 years) Not on file 09/01/2024 Social Connections Answer Date Recorded How often do you feel lonely or isolated from th ose around you? Never 09/01/2024 Financial Resource Strain Answer Date R ecorded Do you have any trouble payi ng for your medications, or do you think you might in the future? No 09/01/2024 Does your family have troubl e paying for medicine? (Household - for ages 0-17 years) Not on file 09/01/2024 Transportation Needs Answer Date Record ed READ ONLY Do you have troubl e getting a ride to medical visits or work? Never True 09/01/2024 Does your family have a hard time getting a ride to doctors visits? (Household - for ages 0-17 years) Not on file 09/01/2024 Has lack of transportation k ept you from medical appointments, meetings, work, or from getting things needed for daily living? Check all that apply. No 09/01/2024 Do you (or your family) have trouble finding or paying for a ride (transportation)? (Household - for ages 0-17 years) Not on file 09/01/2024 Housing Stability Answer Date Recorded Do you currently live in a s helter or have no steady place to sleep at night? No 09/01/2024 READ ONLY Do you think you a re at risk of becoming homeless? No 09/01/2024 Does your family worry about paying for your home or becoming homeless? (Household - for ages 0-17 years) Not on file 1 11/02/2023 Are you homeless or worried that you might be in the future? No 09/01/2024 Are you (or your family) pancho eless or worried that you might be in the future? (Household - for ages 0-17 years) Not on file Food Insecurity Answer Date Recorded Do you need food for this week? No 09/01/2024 Are you able to get enough f ood for your family? (Household - for ages 0-17 years) Not on file 09/01/2024 Does your family need food t his week? (Household - for ages 0-17 years) Not on file 09/01/2024 Do you always have enough fo od for your family? (Household - for ages 0-17 years) Not on file 09/01/2024 Sex and Gender Information Value Date Recorded [...] Aimee Dobbs RN documented in this encounter Progress Notes * Delgado Adrian MD - 09/07/2024 1:47 PM EST CHIEF COMPLAINT: Chief Complaint Patient presents with NEW PATIENT Here for Today's visit regarding: Pt slipped on ice 09/06/24 landed L shoulder Location of pain: L shoulder Injury: fell on ice 09/06/24 Recent Imaging: N/A Prior treatment: N/A Prior Surgery: N/A Date of injury or symptoms started: 09/06/24 Goals for this appointment: See what is going on Impression: (K09.577Q) Other closed displaced fracture of proximal end of left humerus, initial encounter (primary encounter diagnosis) Plan: We discussed the diagnosis and treatment options with the patient today. At this time recommend that the patient undergo conservative management consisting of a sling and swath and activity modification. Follow Up: Return Follow up in 2 weeks, for Clinic Visit. | For: Clinic Visit. Patient will requiretrue AP and a outlet Y-view x-ray of the left shoulder There are no Patient Instructions on file for this visit. HISTORY OF PRESENT ILLNESS: Tad Silvestre is a 69 year old right hand dominant male who presents to orthopedic Sports Medicine for evaluation to us with a history of left shoulder pain . Patient states that he slipped on ice and landed on his left shoulder. Since the injury he has had pain and bruising in the shoulder region.He denies any paresthesias. Denies any previous injury. Wakes at night? no. Physical Therapy? no. Injections? no. Nursing Notes: Phil Chamberlain INTERIOR SPECIALIST 09/07/24 1340 Signed Here for Today's visit regarding: Pt slipped on ice 09/06/24 landed L shoulder Location of pain: L shoulder Injury: fell on ice 09/06/24 Recent Imaging: N/A Prior treatment: N/A Prior Surgery: N/A Date of injury or symptoms started: 09/06/24 Goals for this appointment: See what is going on Past Surgical History: Procedure Laterality Date AV ACCESS, AUTOGENOUS GRAFT Left 06/26/2024 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 performed by Benjamin [place]agen[place] [facility] [place]AGNOSTIC (RECTUM) N/A 02/19/2023 poor prep/nodular mucosa ascending colon/hemorrhoids/biopsies show adenomatous polyps, mild active inflammation/recall 1 year/Colonoscopy/[facility] MARCUS CAT,W/O PUMP;5YR/OLD Right 07/28/2024 INSERT TUNNELED CENTRAL VENOUS CATHETER AGE 5 OR OLDER performed by Damion Barber MD at OR [facility] NONE REPLACE,COMP,MARCUS CENT ACC DEV Right 08/22/2024 REPLACEMENT COMPLETE TUNNELED CENTRAL CATHETER NO PORT performed by Damion Barber MD at OR [facility] Review of patient's allergies indicates: No Known Allergies Current Outpatient Medications Medication Sig Dispense Refill Co Q 10 10 MG Oral Capsule Take by mouth 1 Caplet Dosing Unit daily . Aspirin 81 MG Oral Capsule Take by mouth 1 Caplet Dosing Unit daily . Multi-Day Oral Tablet Take by mouth 1 Tablet in the morning. Vitamin D-3 25 MCG (1000 UT) Oral Capsule Take 1 Capsule by mouth in the morning. Metoprolol Succinate ER 25 MG Oral Tablet [...] by mouth daily. 90 Tablet 3 Pen [place] 32G X 4 MM Use as directed. Use to inject insulin 4 times daily E11.9 400 Each 3 FLUoxetine HCl 20 MG Oral Capsule (PROzac) TAKE 1 CAPSULE BY MOUTH EVERY DAY 90 Capsule 3 Levothyroxine Sodium 25 MCG Oral Tablet (Levoxyl) Take 1 Tablet by mouth daily first thing in the morning. 90 Tablet 3 NIFEdipine ER Osmotic Release 30 MG Oral Tablet Extended Release 24 Hour (Procardia XL) Take 1 Tablet by mouth in the morning. In the morning.. 90 Tablet 3 Pantoprazole Sodium 40 MG Oral Tablet Delayed Release (Protonix) Take 1 Tablet by mouth in the morning. 90 Tablet 3 FreeStyle Carlos 2 Sensor Use as directed. Use one sensor every 14 days for blood sugar E10.65 1 Each 11 Fiasp FlexTouch 100 UNIT/ML Subcutaneous Solution Pen-injector (Insulin Aspart (w/Niacinamide)) Inject 10 Units under the skin in the morning and 10 Units at noon and 10 Units before bedtime. With meals. 15 mL 3 Basaglar KwikPen 100 UNIT/ML Subcutaneous Solution Pen-injector (Insulin Glargine Solostar) INJECT UNDER THE SKIN 22 UNITS IN THE MORNING. 30 mL 1 Juluca 50-25 MG Oral Tablet (Dolutegravir-Rilpivirine) Take 1 Tablet by mouth daily. 30 Tablet 11 FreeStyle Carlos 2 Monroe Device USE DIRECTED. 1 Each 1 Current Facility-Administered Medications Medication Dose Route Frequency Provider Last Rate Last Admin Albuterol Sulfate (Proventil) (2.5 MG/3ML) 0.083% inhalation solution 2.5 mg 2.5 mg Nebulizer PRN Albuterol Sulfate (Proventil) (5 MG/ML) 0.5% *conc* inhalation solution 2.5 mg 2.5 mg Nebulizer PRN2.5 mg at 04/27/24 1108 Social History Socioeconomic History Marital status: Single Tobacco Use Smoking status: Former Average packs/day: 0.3 packs/day for 30.0 years (7.5 ttl pk-yrs) Types: Cigarettes Start date: 1975 Smokeless tobacco: Never Vaping Use Vaping status: Never Used Substance and Sexual Activity Alcohol use: Not Currently Comment: rarely Drug use: No Social Needs Financial Resource Strain: Low Risk (09/01/2024) Financial Resource Strain Do you have any trouble paying for your medications, or do you think you might in the future? (Adult - for ages 18 years and over): No Food Insecurity: No Food Insecurity (09/01/2024) Food Insecurity Do you need food for this week? (Adult - for ages 18 years and over): No Transportation Needs: No Transportation Needs (09/01/2024) Transportation Needs Do you have trouble getting a ride to medical visits or work? (Adult - for ages 18 years and over):Never True Has lack of transportation kept you from medical appointments, meetings, work, or from getting things needed for daily living? Check all that apply. (Adult - for ages 18 years and over): No Social Connections: Socially Integrated (09/01/2024) Social Connections How often do you feel lonely or isolated from those around you? (Adult - for ages 18 years and over): Never Housing Stability: Low Risk (09/01/2024) Housing Stability Do you currently live in a halfway or have no steady place to sleep at night? (Adult - for ages 18 years and over): No Do you think you are at risk of becoming homeless? (Adult - for ages 18 years and over): No Are you homeless or worried that you might be in the future? 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 05/07/2023 History of GI bleed 02/02/2024 Duodenal ulcer HIV positive ([facility]) Hypertension Kidney disease, chronic, stage IV (GFR 15-29 ml/min) ([facility]) 05/02/2022 Left bundle branch block 05/02/2022 Old VA (myocardial infarction) 05/02/2022 Overweight (BMI 25.0-29.9) 05/02/2022 Recurrent major depressive disorder, in full remission ([facility]) 05/05/2022 Systolic and diastolic CHF, chronic ([facility]) 05/02/2022 Type 2 diabetes mellitus with hemoglobin A1c goal of less than 8.0% ([facility]) 05/02/2022 ROS: Constitional: No change in weight, No weakness, No fatigue, and No fevers, sweats, or chills Skin: No edema, No rash, and No itching Psychiatric: No depression, No anxiety, and No psychosis Xray: I personally reviewed the xrays. The x-rays of the left shoulder from today do show evidence of a displaced greater tuberosity fracture. No evidence dislocation. PHYSICAL EXAM: General: generally well-nourished and in no acute distress HEENT: normocephalic, atraumatic, EOMI, sclera anicteric. Psych: mood and affect normal , cooperative Card: Peripheral pulses: normal in affected extremity (s) Resp: equal chest rise, non-tachypneic, non-labored breathing Skin: no rash, normal Neuro: Coordination: normal; Sensation: normal on affected extremity (s) Skin: normal. There is evidence of ecchymosis and bruising over the biceps muscle area in the inner aspect of thearm. C-Spine evaluation: Does patient have neck symptoms and/or numbness/tingling in upper extremities: no Inspection: bilateral and symmetrical without apparent abnormality Shoulder ROM: Not assessed secondary to patient injury yes - SS Instability Testing: Shoulder instability testing: not examined negative scapular winging negative scapular dyskinesis Strength: Not assessed Neurovascular assessment: negative for deficit Neck ROM: Extension 10 Flexion to the chest Spurlings test: Right negative Left negative Lateral bending and rotation pain: right negative left negative TTP: negative Ligamentous laxity testing: negative Bilateral Delgado Adrian MD Orthopaedics [address] [place] [address] Orthopedic Sports Medicine Surgery 09/07/2024 1:47 PM This chart was completed in part utilizing [employer] Speech Voice Recognition Software. Grammatical errors, random word insertions, pronoun errors, and incomplete sentences are an occasional consequence of this system due to software limitations, ambient noise, and hardware issues. Any formal questions or concerns about the content, text, or information contained within the body of this dictation should be directly addressed to the provider for clarification. documented in this encounter Nursing Notes * Phil Chamberlain CMA - 09/07/2024 1:40 PM EST Here for Today's visit regarding: Pt slipped on ice 09/06/24 landed L shoulder Location of pain: L shoulder Injury: fell on ice 09/06/24 Recent Imaging: N/A Prior treatment: N/A Prior Surgery: N/A Date of injury or symptoms started: 09/06/24 Goals for this appointment: See what is going on documented in this encounter Miscellaneous Notes * Addendum Note - Delgado Adrian MD - 09/07/2024 1:55 PM ESTAddended by: DELGADO ADRIAN on: 09/07/2024 01:55 PM Modules accepted: Level of Service documented in this encounter Plan of Treatment Upcoming Encounters Date Type Department Care Team (Late st Contact Info) Description 09/19/2024 3:30 PM EST [address] [address] Davy Mota MD [address] [place] [address] 09/21/2024 1:30 PM EST Office Visit Orthopaedics [facility] [address] [facility] [facility] [place] [address] Delgado Adrian MD [address] [place] [phone] 10/13/2024 9:00 AM EST Office Visit Family Practice [facility] [address] [facility] [place] [address] Antonio Colon MD [address] [facility] [address] 10/25/2024 12:30 PM EST Office Visit Vascular Surgery, [facility] [address] [facility] [place] [address] Benjamin Cartagena MD [address] [place] [address] Scheduled Procedures Name Priority Associated Diagnoses Date/Ti me COLONOSCOPY FLEXIBLE PROXIMA L DIAGNOSTIC Recall History of colonic polyps Health Maintenance Due Date Last Done Comments Diabetic Eye Exam 1971 Zoster Vaccines (1 of 2) 1972 Cologuard 1998 Fecal Occult Blood Test 1998 Sigmoidoscopy 1998 Hepatitis B Vaccine (2 of 3 - Risk 3-dose series) 09/22/2017 08/25/2017 Pneumococcal Vaccine: 50+ Years (3 of 3 - PPSV23, PCV20 or PCV21) 10/16/2018 08/21/2018, 07/23/2017, 07/20/2012 Adult Wellness Visit 2019 MENINGOCOCCAL (MENACTRA/MENVEO) (3 - Risk 2-dose series) 08/04/2022 08/04/2017, 02/03/2013 COVID-19 Vaccine ( season) 2024 09/09/2022, 08/05/2021, 11/27/2020, Additional history exists Colonoscopy 01/06/2025 01/07/2024, 060 05/2023, 02/19/2023 Colorectal Cancer Screening 01/06/2025 Diabetic Foot Exam 01/17/2025 01/18/2024, 11/24/2022 HbA1c 02/20/2025 08/22/2024, 03/15, 02/02/2024, Additional history exists TSH 08/22/2025 08/22/2024, 01/12, 02/02/2024, Additional history exists Depression Monitoring 09/01/2025 09/01/2024 DTap/Tdap Vaccines (2 - Td or Tdap) 07/23/2027 07/23/2017 Albumin/Creatinine Ratio Discontinued 05/07/2023, 0511/2021 RETIRED - COLONOSCOPY-ANNUAL AGES 18-100 Discontinued 01/07/2024, [...] as of this encounter Visit Diagnoses Diagnosis Other closed displaced fracture of proximal end of left humerus, initial encounter- Primary documented in this encounter Advance Directives * [...] Healthcare Agent Relationshi p Communication Lorin Silvestre [facility] Health Care Repr esentative (appointed verbally by patient or by statute hierarchy) Care Teams Cosmetic Consultant Relationship Specialty Start Date End Date Antonio Colon MD [address] [place] [address] PCP - General Family Medicine 02/12/22 documented as of this encounter"
--- OUTSIDE RECORDS SUMMARY | 2024-09-21 08:01 | External Medical Summary | Summary of Care ---
Author Name Unknown Organization [facility] Address [address] [place] [address] Phone [phone] Care Team Providers Care Lump Maker Name Role Phone Antonio Colon MD Primary Care Provider [phone] Reason for Visit * Reason Onset Date Comments Hospital Follow-Up Pt here for h ospital follow up Hospital Follow-Up 09/03/2024 Encounter Details Date Type Department Care Team (Late st Contact Info) Description 09/01/2024 3:20 PM EST Office Visit Family Practice [facility] [address] [facility] [place] [address] Antonio Colon MD [address] [facility] [place] [address] Hospital discharge follow-up*; ESRD (end stage renal disease) on dialysis (HCC) Allergies No known active allergiesdocumented as of this encounter (statuses as of 09/03/2024) Medications Co Q 10 10 MG Oral [...] Oral Tablet Extended Release 24 Hour (toPROL XL)Indications:C oronary artery disease involving prairie band coronary artery of prairie band heart without angina pectoris TAKE 1 TABLET BY MOUTH EVERY DAY IN THE MORNING 90 Tablet 3 10/05/19 24 Active Prasugrel HCl 10 MG Oral Tablet (Effient)Indicat ions:Coronary artery disease involving prairie band coronary artery of prairie band heart without angina pectoris TAKE 1 TABLET BY MOUTH EVERY DAY IN THE MORNING 90 Tablet 3 10/05/19 24 Active Atorvastatin Calcium 40 MG Oral Tablet (Lipitor)Indicat ions:Dyslipidemi a, goal LDL below 70 TAKE 1 TABLET BY MOUTH EVERY DAY IN THE MORNING 90 Tablet 10/06/19 24 Active Juluca 50-25 MG Oral Tablet Take 1 Tablet by mouth daily. 90 Tablet 12/01/19 24 Active Pen [place] 32G X 4 MM Use as directed. Use to inject insulin 4 times daily E11.9 400 Each 12/02/19 24 Active FLUoxetine HCl 20 MG Oral Capsule (PROzac)Indicati ons:ST elevation (STEMI) myocardial infarction involving left circumflex coronary artery (HCC) TAKE 1 CAPSULE BY MOUTH EVERY DAY 90 Capsule 3 03/03/20 24 Active Levothyroxine Sodium 25 MCG Oral Tablet (Levoxyl) Take 1 Tablet by mouth daily first thing in the morning. 90 Tablet 3 03/24/20 24 Active NIFEdipine ER Osmotic Release 30 MG Oral Tablet Extended Release 24 Hour (Procardia XL) Take 1 Tablet by mouth in the morning. In the morning.. 90 Tablet 3 03/24/20 24 Active Pantoprazole Sodium 40 MG Oral Tablet Delayed Release (Protonix) Take 1 Tablet by mouth in the morning. 90 Tablet 3 03/24/20 24 Active FreeStyle Carlos 2 SensorIndication s:Type 2 diabetes mellitus with hemoglobin A1c goal of less than 8.0% ([facility]) Use as directed. Use one sensor every 14 days for blood sugar E10.65 1 Each 04/11/20 24 Active Fiasp FlexTouch 100 UNIT/ML Subcutaneous Solution Pen-injector (Insulin Aspart (w/Niacinamide)) Indications:Type 2 diabetes mellitus with hemoglobin A1c goal of less than 8.0% ([facility]) Inject 10 Units under the skin in the morning and 10 Units at noon and 10 Units before bedtime. With meals. 15 mL 3 04/27/2024 10:53 AM EDT 04/26/20 24 Active Basaglar KwikPen 100 UNIT/ML Subcutaneous Solution Pen-injector (Insulin Glargine Solostar) INJECT UNDER THE SKIN 22 UNITS IN THE MORNING. 30 mL 1 07/28/20 Active Juluca 50-25 MG Oral Tablet (Dolutegravir-Ri lpivirine) Take 1 Tablet by mouth daily. 30 Tablet 11 08/22/20 24 025 Active vancomycin IV IV (AMBULATORY) Administer 1,000 mg intravenously once a day on Wednesday, , and Wednesday only for 10 days. Administer AFTER dialysis. Labs needed: CBC with diff, BMP and vancomycin level weekly until antibiotic completed. End Date Sep 05, 2024 10 g 08/26/20 24 024 Active Argo Navis Consultinge 2 Walker DeviceIndication s:Type 2 diabetes mellitus with hemoglobin A1c goal of less than 8.0% ([facility]) USE DIRECTED. 1 Each 1 08/29/20 Active Hospital, Clinic, or Other Facility Administered Medication Ordered Dose Route Frequency Start Date End Date Status Albuterol Sulfate (Proventil) (2.5 MG/3ML) 0.083% inhalation solution 2.5 mgIndications:ESRD on dialysis ([facility]),Pre-transplant evaluation for ESRD (end stage renal disease) 2.5 mg NEBULIZER PRN 03/24/2024 Acti ve Albuterol Sulfate (Proventil) (5 MG/ML) 0.5% *conc* inhalation solution 2.5 mgIndications:ESRD on dialysis ([facility]),Pre-transplant evaluation for ESRD (end stage renal disease) 2.5 mg NEBULIZER PRN 03/24/2024 Acti ve documented as of this encounter (statuses as of 09/03/2024) Active Problems Problem Noted Date Diagnosed Date [...] Dyslipidemia 05/02/2022 Coronary artery disease invo lving prairie band coronary artery of prairie band heart without angina pectoris 05/02/2022 Type 2 diabetes mellitus wit h hemoglobin A1c goal of less than 8.0% 05/02/2022 Old [place] (myocardial infarction) 05/02/2022 Chronic systolic (congestive) heart failure 04/14 Left bundle branch block 05/02/2022 HTN, goal below 130/80 HIV positive documented as of this encounter (statuses as of 09/03/2024) Resolved Problems Problem Noted Date Diagnosed Date [...] as of this encounter (statuses as of 09/03/2024) Immunizations Name Administration Dates Next Due COVID-19 [...] money to buy more. Never true 09/01/20 24 Within the past 12 months, t [...] Sign Reading Time Taken Comments Blood Pressure 118/72 09/01/2024 3:29 PM EST Pulse 64 09/01/2024 3:29 PM EST Temperature 36.2 C (97.2 F) 09/01/2024 3:29 PM ES T Respiratory Rate 18 09/01/2024 3:29 PM EST Oxygen Saturation - - Inhaled Oxygen Concentration - - Weight 78 kg (172 lb) 09/01/2024 3:29 PM EST Height 175.3 cm (5' 9.02") 09/01/2024 3:29 PM ES T Body Mass Index 25.39 09/01/2024 3:29 PM EST documented in this encounter Functional Status * Are you [...] documented in this encounter Progress Notes * Antonio Colon MD - 09/03/2024 5:10 PM EST SUBJECTIVE: Tad Silvestre is a 69 year old male. Chief Complaint Patient presents with Hospital Follow-Up Pt here for hospital follow up Hospital Follow-Up Recent Admission: Patient was recently admitted to [facility]. The date of discharge was 08/26. Discharge report received and reviewed. HPI: Admitted for sepsis from presumed line infection from tunneled catheter. Was treated appropriately. He is feeling back to baseline with the exception of "feeling tired." He is very medically complex and follows with many specialists. Patient seen in conjunction with rn case mgr Madeleine Cortes today. Exam reassuring. 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 90 Tablet 3 FLUoxetine HCl 20 MG Oral Capsule [...] mouth in the morning. 90 Tablet 3 Fiasp FlexTouch 100 UNIT/ML Subcutaneous Solution Pen-injector (Insulin Aspart (w/Niacinamide)) Inject 10 Units under the skin in the morning and 10 Units at noon and 10 Units before bedtime. With meals. 15 mL 3 Basaglar KwikPen 100 UNIT/ML Subcutaneous Solution Pen-injector (Insulin Glargine Solostar) INJECT UNDER THE SKIN 22 UNITS IN THE MORNING. 30 mL 1 vancomycin IV IV (AMBULATORY) Administer 1,000 mg intravenously once a day on Wednesday, , and Wednesday only for 10 days. Administer AFTER dialysis. Labs needed: CBC with diff, BMP and vancomycin level weekly until antibiotic completed. End Date Sep 05, 2024 10 g 0 FreeStyle Carlos 2 Walker Device USE DIRECTED. 1 Each 1 Pen [place] 32G X 4 MM Use as directed. Use to inject insulin 4 times daily E11.9 400 Each 3 FreeStyle Carols 2 Sensor Use as directed. Use one sensor every 14 days for blood sugar E10.65 1 Each 11 Juluca 50-25 MG Oral Tablet (Dolutegravir-Rilpivirine) Take 1 Tablet by mouth daily. 30 Tablet 11 Current Facility-Administered Medications Medication Dose Route Frequency Provider Last Rate Last Admin Albuterol Sulfate (Proventil) (2.5 MG/3ML) 0.083% inhalation solution 2.5 mg 2.5 mg Nebulizer PRN Albuterol Sulfate (Proventil) (5 MG/ML) 0.5% *conc* inhalation solution 2.5 mg 2.5 mg Nebulizer PRN2.5 mg at 04/27/24 1108 Current and discharge medications have been reconciled. Review of patient's allergies indicates: No Known Allergies OBJECTIVE: BP 118/72 | Pulse 64 | Temp 97.2 F (36.2 C) | Resp 18 | Ht 5' 9.02" (1.753 m) | Wt 172 lb (78 kg) | BMI 25.39 kg/m | BSA 1.95 m PHYSICAL EXAM: General: alert, healthy, and no distress Head: Normocephalic, No masses, lesions, tenderness or abnormalities Neck: supple, no adenopathy, no bruits, thyroid normal size, non-tender, without nodularity Heart: regular rate & rhythm, no murmur, and no gallops Lungs: chest symmetric with normal AP diameter, no chest deformities noted, no chest wall tenderness, lungs clear to auscultation Abdomen: abdomen soft, non-tender, normal bowel sounds, and no masses or organomegaly Back: back symmetric, no curvature, no costovertebral angle tenderness, range of motion is normal Extremities: less than 2 second capillary refill, no joint deformities, effusion, or inflammation Neuro Exam: alert & oriented x 3 with fluent speech, no focal motor/sensory deficits, gait normal, reflexes normal and symmetric ASSESSMENT: Hospital discharge follow-up (Primary) - DISCH MED RECON CUR MED LIS PLAN: Continue present medication(s): Follow up as needed. I spent a total of 20-29 minutes (exact time 22 mins) minutes on the date of service in preparation, delivery, and documentation of the care provided to Tad Silvestre excluding any time spent in performance of separately billed services. Antonio Colon MD documented in this encounter Nursing Notes * Sydni Mendes LPN - 09/01/2024 3:29 PM EST The patient has been properly identified by confirmation of name and date of . Chief Complaint Patient presents with Hospital Follow-Up Pt here for hospital follow up documented in this encounter Plan of Treatment Upcoming Encounters Date Type Department Care Team (Late st Contact Info) Description 09/19/2024 3:30 PM EST Office Visit Cardiology, [facility] [address] [facility] [place] [address] Davy Mota MD [address] [place] [address] 10/13/2024 9:00 AM EST Office Visit Family Practice [facility] [address] [facility] [place] [address] Antonio Colon MD [address] [place] [address] 10/25/2024 12:30 PM EST Office Visit Vascular Surgery, [facility] [address] [facility] [place] [address] Benjamin Cartagena MD [address] [place] [address] Scheduled Procedures Name Priority Associated [...] Vaccine: 65+ Years (3 of 3 - PPSV23, PCV20 or PCV21) 10/16/2018 08/21/2018, 07/23/2017, 07/20/2012 Adult Wellness Visit 2019 MENINGOCOCCAL (MENACTRA/MENVEO) (3 - Risk 2-dose series) 08/04/2022 08/04/2017, 02/03/2013 COVID-19 Vaccine ( - season) 2024 09/09/2022, 08/05/2021, 11/27/2020, Additional history exists Colonoscopy 01/06/2025 01/07/2024, 05/2023, 02/19/2023 Colorectal Cancer Screening 01/06/2025 Diabetic Foot Exam 01/17/2025 01/18/2024, 11/24/2022 HbA1c 02/20/2025 08/22/2024, 03/15, 02/02/2024, Additional history exists TSH 08/22/2025 08/22/2024, 01/12, 02/02/2024, Additional history exists Depression Monitoring 09/01/2025 09/01/2024 DTap/Tdap Vaccines (2 - Td or Tdap) 07/23/2027 07/23/2017 Albumin/Creatinine Ratio Discontinued 05/07/2023, 11/2021 RETIRED - COLONOSCOPY-ANNUAL AGES 18-100 Discontinued [...] as of this encounter Visit Diagnoses Diagnosis Hospital discharge follow-up- Primary Other follow-up examination ESRD (end stage renal disease) on dialysis (HCC) End stage renal disease documented in this encounter Advance Directives * [...] Healthcare Agent Relationshi p Communication Lorin Silvestre [facility] Health Care Repr esentative (appointed verbally by patient or by statute hierarchy) Care Teams Lump Maker Relationship Specialty Start Date End Date Antonio Colon MD [address] [place] [address] PCP - General Family Medicine 02/12/22 documented as of this encounter
--- OUTSIDE RECORDS SUMMARY | 2024-09-21 08:01 | External Medical Summary | Summary of Care ---
Author Name Unknown Organization [facility] Address [address] [place] [address] Phone [phone] Care Team Providers Care Boot Lace Cutter Machine Name Role Phone Antonio Colon MD Primary Care Provider [phone] Reason for Visit * Reason Comments NEW [...] 09/07/2024 11:45 AM EST Office Visit Orthopaedics [facility] [address] [facility] [place] [address] Delgado Adrian MD [address] [facility] [place] [phone] Other closed displaced fracture of proximal end [...] Hour (toPROL XL)Indications:Co ronary artery disease involving chickahominy indians-eastern division coronary artery of chickahominy indians-eastern division heart without angina pectoris TAKE 1 TABLET BY MOUTH EVERY DAY IN THE MORNING 90 Tablet 3 4 Active Prasugrel HCl 10 MG Oral Tablet (Effient)Indicati ons:Coronary artery disease involving chickahominy indians-eastern division coronary artery of chickahominy indians-eastern division heart without angina pectoris TAKE 1 TABLET BY MOUTH EVERY DAY IN THE MORNING 90 Tablet 3 4 Active Atorvastatin Calcium 40 MG Oral Tablet (Lipitor)Indicati ons:Dyslipidemia, goal LDL below 70 TAKE 1 TABLET BY MOUTH EVERY DAY IN THE MORNING 90 Tablet 3 4 Active Juluca 50-25 MG Oral Tablet Take 1 Tablet by mouth daily. 90 Tablet 3 4 Active Pen [place] 32G X 4 MM Use as directed. [...] 4 08/17/20 25 Active FreeStyle Carlos 2 [place] DeviceIndications :Type 2 diabetes mellitus with hemoglobin A1c goal of less than 8.0% ([facility]) USE DIRECTED. 1 Each 1 4 Active Hospital, Clinic, or Other Facility Administered Medication Ordered Dose Route Frequency Start Date End Date Status Albuterol Sulfate (Proventil) (2.5 MG/3ML) 0.083% inhalation solution 2.5 mgIndications:ESRD on dialysis ([facility]),Pre-transplant evaluation for ESRD (end stage renal disease) 2.5 mg NEBULIZER PRN 03/24/2024 Acti ve Albuterol Sulfate (Proventil) (5 MG/ML) 0.5% *conc* inhalation solution 2.5 mgIndications:ESRD on dialysis ([facility]),Pre-transplant evaluation for ESRD (end stage renal disease) [...] Dyslipidemia 05/02/2022 Coronary artery disease invo lving chickahominy indians-eastern division coronary artery of chickahominy indians-eastern division heart without angina pectoris 05/02/2022 Type 2 diabetes mellitus wit h hemoglobin A1c goal of less than 8.0% 05/02/2022 Old [place] (myocardial infarction) 05/02/2022 Chronic [...] appointment: See what is going on Impression: (U50.732P) Other closed displaced fracture of proximal end [...] no. Injections? no. Nursing Notes: Phil Chamberlain FULL STACK NET DEVELOPER 09/07/24 1340 Signed Here for Today's visit [...] performed by Benjamin Cartagena MD at OR [facility] COLONOSCOPY, DIAGNOSTIC (RECTUM) N/A 02/19/2023 poor prep/nodular mucosa ascending colon/hemorrhoids/biopsies show adenomatous polyps, mild active inflammation/recall 1 year/Colonoscopy/[place] INSER MARCUS CAT,W/O PUMP;5YR/OLD Right 07/28/2024 INSERT TUNNELED CENTRAL VENOUS CATHETER AGE 3 OR OLDER performed by Damion Barber MD at OR [facility] NONE REPLACE,COMP,MARCUS CENT ACC DEV Right 08/22/2024 REPLACEMENT COMPLETE TUNNELED CENTRAL CATHETER NO PORT performed by Damion Barber MD at OR [facility] Review of patient's allergies indicates: No [...] by mouth daily. 90 Tablet 3 Pen [place] 32G X 4 MM Use as directed. [...] daily. 30 Tablet 11 FreeStyle Carlos 2 [place] Device USE DIRECTED. 1 Each 1 Current [...] Stability Do you currently live in a prison or have no steady place to sleep [...] Chronic heart failure with preserved ejection fraction (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) Hypertension Kidney disease, chronic, stage IV (GFR 15-29 ml/min) ([facility]) 05/02/2022 Left bundle branch block 05/02/2022 Old [place] (myocardial infarction) 05/02/2022 Overweight (BMI 25.0-29.9) 05/02/2022 Recurrent major depressive disorder, in full remission ([facility]) 05/05/2022 Systolic and diastolic CHF, chronic ([facility]) 05/02/2022 Type 2 diabetes mellitus with hemoglobin A1c goal of less than 8.0% ([facility]) 05/02/2022 ROS: Constitional: No change in weight, [...] testing: negative Bilateral Delgado Adrian MD Orthopaedics [address] [place] [address] Orthopedic Sports Medicine Surgery 09/07/2024 1:47 PM This chart was completed in part utilizing [employer] Speech Voice Recognition Software. Grammatical errors, random [...] 09/19/2024 3:30 PM EST [address] [address] Davy Mota MD [address] [place] [address] 09/21/2024 1:30 PM EST Office Visit [facility]opaedics [facility] [address] [place] [address] Delgado Adrian MD [address] [place] [id number] 10/13/2024 9:00 AM EST Office Visit Family Practice [facility] [address] [place] [address] Antonio Colon MD [address] [facility] [place] [address] 10/25/2024 12:30 PM EST Office Visit Vascular Surgery, [facility] [address] [facility] [place] [address] Benjamin Cartagena MD [address] [place] [address] Scheduled Procedures Name Priority Associated [...] Healthcare Agent Relationshi p Communication Lorin Silvestre [facility] Health Care Repr esentative (appointed verbally by patient or by statute hierarchy) Care Teams Boot Lace Cutter Machine Relationship Specialty Start Date End Date Antonio Colon MD [address] [place] [address] PCP - General Family Medicine 02/12/22 documented as of this encounter"
--- OUTSIDE RECORDS SUMMARY | 2024-09-21 08:02 | External Medical Summary | Summary of Care ---
Author Name Unknown Organization [facility] Address [address] [place] [address] Phone [phone] Care Team Providers Care Director Consumer Name Role Phone Antonio Colon MD Primary Care Provider [phone] Encounter Details Date Type Department Care Team (Late st Contact Info) Description 08/28/2024 Population Health External Data Unspecified Department Allergies No known active allergiesdocumented as of this encounter (statuses as of 08/28/2024) Medications Co Q 10 10 MG Oral [...] Hour (toPROL XL)Indications:C oronary artery disease involving pamunkey coronary artery of pamunkey heart without angina pectoris TAKE 1 TABLET BY MOUTH EVERY DAY IN THE MORNING 90 Tablet 3 10/05/19 24 Active Prasugrel HCl 10 MG Oral Tablet (Effient)Indicat ions:Coronary artery disease involving pamunkey coronary artery of pamunkey heart without angina pectoris TAKE 1 TABLET BY MOUTH EVERY DAY IN THE MORNING 90 Tablet 3 10/05/19 24 Active Atorvastatin Calcium 40 MG Oral Tablet (Lipitor)Indicat ions:Dyslipidemi a, goal LDL below 70 TAKE 1 TABLET BY MOUTH EVERY DAY IN THE MORNING 90 Tablet 3 10/06/19 24 Active Juluca 50-25 MG Oral Tablet Take 1 Tablet by mouth daily. 90 Tablet 3 12/01/19 24 Active Pen [place] 32G X 4 MM Use as directed. Use to inject insulin 4 times daily E11.9 400 Each 12/02/19 24 Active FLUoxetine HCl 20 MG Oral Capsule (PROzac)Indicati ons:ST elevation (STEMI) myocardial infarction involving left circumflex coronary artery (HCC) TAKE 1 CAPSULE BY MOUTH EVERY DAY 90 Capsule 03/03/20 24 Active Levothyroxine Sodium 25 MCG Oral Tablet (Levoxyl) Take 1 Tablet by mouth daily first thing in the morning. 90 Tablet 3 03/24/20 24 Active NIFEdipine ER Osmotic Release 30 MG Oral Tablet Extended Release 24 Hour (Procardia XL) Take 1 Tablet by mouth in the morning. In the morning.. 90 Tablet 03/24/20 24 Active Pantoprazole Sodium 40 MG Oral Tablet Delayed Release (Protonix) Take 1 Tablet by mouth in the morning. 90 Tablet 03/24/20 24 Active FreeStyle Carlos 2 Reliance DeviceIndication s:Type 2 diabetes mellitus with hemoglobin A1c goal of less than 8.0% ([facility]) Use as directed. Use to test BG E10.65 1 Each 04/11/20 Active FreeStyle Carlos 2 SensorIndication s:Type 2 diabetes mellitus with hemoglobin A1c goal of less than 8.0% ([facility]) Use as directed. Use one sensor every 14 days for blood sugar E10.65 1 Each 04/11/20 24 Active Fiasp FlexTouch 100 UNIT/ML Subcutaneous Solution Pen-injector (Insulin Aspart (w/Niacinamide)) Indications:Type 2 diabetes mellitus with hemoglobin A1c goal of less than 8.0% ([facility]) Inject 10 Units under the skin in the morning and 10 Units at noon and 10 Units before bedtime. With meals. 15 mL 3 04/27/2024 10:53 AM EDT 04/26/20 24 Active Basaglar KwikPen 100 UNIT/ML Subcutaneous Solution Pen-injector (Insulin Glargine Solostar) INJECT UNDER THE SKIN 22 UNITS IN THE MORNING. 30 mL 1 07/28/20 24 Active Juluca 50-25 MG Oral Tablet (Dolutegravir-Ri [...] 2024 10 g 08/26/20 24 024 Active Hospital, Clinic, or Other Facility Administered [...] as of this encounter (statuses as of 08/28/2024) Active Problems Problem Noted Date Diagnosed Date [...] Dyslipidemia 05/02/2022 Coronary artery disease invo lving pamunkey coronary artery of pamunkey heart without angina pectoris 05/02/2022 Type 2 diabetes mellitus wit h hemoglobin A1c goal of less than 8.0% 05/02/2022 Old [place] (myocardial infarction) 05/02/2022 Chronic systolic (congestive) heart failure 04/14 Left bundle branch block 05/02/2022 HTN, goal below 130/80 HIV positive documented as of this encounter (statuses as of 08/28/2024) Resolved Problems Problem Noted Date Diagnosed Date Resolved Date Chronic heart failure with p reserved ejection fraction 11/24/2022 02/04/2023 Kidney disease, chronic, sta ge IV (GFR 15-29 ml/min) 05/02/2022 02/02/2024 ARDS (adult respiratory distress syndrome) 06/17/2012 05/02/2022 Acute pancreatitis 06/14/2012 Acute respiratory distress 06/14/2012 0 05/02/2022 documented as of this encounter (statuses as of 08/28/2024) Immunizations Name Administration Dates Next Due COVID-19 mRNA, LNP-s, No Pre serve, 2-Dose Series (Moderna) 11/27/2020,10/24/2020 COVID-19, MRNA-LNP, PF, 50 M CG/0.5 mL, 12 YRS AND ABOVE, IM (MODERNA-Spikevax) 08/05/2021 Covid-19, Mrna, Lnp-s, Pf, B ivalent, 30 Mcg, IM, 12 yrs and above ([employer]) 09/09/2022 Hepatitis B, 20+ yrs 08/25/2017 Meningococcal [...] Tobacco: Former Cigarettes 0.3 30 S tarted: 1973 Smokeless Tobacco: Never Alcohol Use Standard Drinks/Week [...] Aimee Dobbs RN documented in this encounter Plan of Treatment Upcoming Encounters Date Type Department Care Team (Late st Contact Info) Description 09/01/2024 3:20 PM EST Office Visit [facility] [address] [address] Antonio Colon MD [address] [address] 09/19/2024 3:30 PM EST Office Visit Cardiology, [facility] [address] [address] Davy Mota MD [address] [address] 10/13/2024 9:00 AM EST Office Visit [facility] [address] [place] [address] Antonio Colon MD [address] [place] [address] 10/25/2024 12:30 PM EST Office Visit Vascular Surgery, [facility] [address] [place] [address] Benjamin Cartagena MD [address] [place] [address] Scheduled Procedures Name Priority Associated [...] 11/27/2020, Additional history exists Colonoscopy 01/06/2025 01/07/2024, 0605/2023, 02/19/2023 Colorectal Cancer Screening 01/06/2025 Depression Monitoring [...] filedocumented as of this encounter Advance Directives * No Code [...] Agent Relationshi p Communication Lorin Silvestre [facility] Health Care Repr esentative (appointed verbally by patient or by statute hierarchy) Care Teams Director Consumer Relationship Specialty Start Date End Date Antonio Colno MD [address] [address] PCP - General Family Medicine 02/12/22 documented as of this encounter
--- OUTSIDE RECORDS SUMMARY | 2024-09-21 08:02 | External Medical Summary | Summary of Care ---
Author Name Unknown Organization [facility] Address [address] [place] [address] Phone [phone] Care Team Providers Care Road Sign Installer Name Role Phone Antonio Colon MD Primary Care Provider [phone] Reason for Visit * Reason Onset Date Comments Dosage Adjustment Via Phone ([facility]) Encounter Details Date Type Department Care Team (Late st Contact Info) Description 08/28/2024 Telephone Infectious Disease, [facility] [address] [place] [address] [facility] [address] [place] [address] Dosage Adjustment Via Phone ([facility]) Allergies No known active allergiesdocumented as of [...] Hour (toPROL XL)Indications:C oronary artery disease involving southern ute coronary artery of southern [place] heart without angina pectoris TAKE 1 TABLET BY MOUTH EVERY DAY IN THE MORNING 90 Tablet 3 10/05/19 24 Active Prasugrel HCl 10 MG Oral Tablet (Effient)Indicat ions:Coronary artery disease involving southern ute coronary artery of southern ute heart without angina pectoris TAKE 1 TABLET BY MOUTH EVERY DAY IN THE MORNING 90 Tablet 10/05/19 24 Active Atorvastatin Calcium 40 MG Oral Tablet (Lipitor)Indicat ions:Dyslipidemi a, goal LDL below 70 TAKE 1 TABLET BY MOUTH EVERY DAY IN THE MORNING 90 Tablet 10/06/19 24 Active Juluca 50-25 MG Oral Tablet Take 1 Tablet by mouth daily. 90 Tablet 12/01/19 24 Active Pen [place] 32G X 4 MM Use as directed. [...] first thing in the morning. 90 Tablet 03/24/20 24 Active NIFEdipine ER Osmotic Release 30 MG Oral Tablet Extended Release 24 Hour (Procardia XL) Take 1 Tablet by mouth in the morning. In the morning.. 90 Tablet 03/24/20 24 Active Pantoprazole Sodium 40 MG Oral Tablet Delayed Release (Protonix) Take 1 Tablet by mouth in the morning. 90 Tablet 03/24/20 24 Active FreeStyle Carlos 2 [place] DeviceIndication s:Type 2 diabetes mellitus with hemoglobin A1c goal of less than 8.0% (HCC) Use as directed. Use to test BG E10.65 1 Each 04/11/20 Active FreeStyle Carlos 2 SensorIndication s:Type 2 diabetes mellitus with hemoglobin A1c goal of less than 8.0% (HCC) Use as directed. Use one sensor every 14 days for blood sugar E10.65 1 Each 04/11/20 Active Fiasp FlexTouch 100 UNIT/ML Subcutaneous Solution [...] Dyslipidemia 05/02/2022 Coronary artery disease invo lving southern ute coronary artery of southern ute heart without angina pectoris 05/02/2022 Type 2 diabetes mellitus wit h hemoglobin A1c goal of less than 8.0% 05/02/2022 Old [place] (myocardial infarction) 05/02/2022 Chronic [...] encounter Miscellaneous Notes * Telephone Encounter - [facility] - 08/28/2024 8:50 AM EST [facility]ARMACOK[facility]ETIC CONSULT Name: Tad Silvestre Patient on Outpatient Parenteral Antimicrobial Therapy (OPAT) with monitoring and management by [facility] Pharmacist under Collaborative Practice Agreement (CPA) with [facility]ious [facility] physician Dr. Elisabeth Malik. Disposition Location: Dialysis: [facility] Antimicrobial orders Infection being treated: CRBSI Medication(s) being managed: Vancomycin Current dose: 1000mg thrice weekly post dialysis End date: 09/05/24 Monitoring orders Ordered weekly: N/A given 1 week course of therapy Follow up plan Follow up with infectious disease physician: N/A Imaging/other testing needed: N/A Intravascular access plan: N/A - Antibiotic administration via HD catheter Laboratory Monitoring Lab Results Component Value Date/Time BUN 24 (H) 08/26/2024 06:01 AM BUN 18 08/25/2024 06:45 AM BUN 35 (H) 08/24/2024 06:26 AM BUN 48 (H) 10/02/2020 03:48 PM BUN 52 (H) 07/01/2020 01:03 PM BUN 18 06/17/2012 06:08 AM BUN 16 06/16/2012 05:08 AM BUN 14 06/15/2012 05:32 AM CREAT 3.7 (H) 08/26/2024 06:01 AM CREAT 3.2 (H) 08/25/2024 06:45 AM CREAT 3.9 (H) 08/24/2024 06:26 AM CREAT 3.37 (H) 10/02/2020 03:48 PM CREAT 3.31 (H) 07/01/2020 01:03 PM CREAT 0.9 06/17/2012 06:08 AM CREAT 0.8 06/16/2012 05:08 AM CREAT 0.8 06/15/2012 05:32 AM WBC 5.01 08/26/2024 06:01 AM WBC 4.32 08/25/2024 06:45 AM WBC 6.68 08/24/2024 06:26 AM WBC 18.27 (H) 06/17/2012 06:08 AM WBC 16.36 (H) 06/16/2012 05:08 AM WBC 15.11 (H) 06/15/2012 05:32 AM Wt Readings from Last 1 Encounters: 08/22/24 77.1 kg (170 lb) Lab Results Component Value Date/Time VANCORANDOM 15.8 08/26/2024 06:01 AM VANCORANDOM 14.6 08/24/2024 06:26 AM VANCORANDOM 20.7 08/23/2024 06:25 AM Assessment and Plan: Patient was discharged on Vancomycin 1000mg / No outpatient labs needed Orders/plan communicated with the [facility] care team [facility] Pharmacist will continue to follow. Contact info for questions/concerns: [facility] ID Outpatient Pharmacist at [phone], or viaTigerText role [facility] [place] [place] Pharmacist [facility] Clinical Pharmacist [facility]ious [facility] 08/28/2024, 8:50 AM documented in this encounter Plan of Treatment Upcoming Encounters Date Type Department Care Team (Late st Contact Info) Description 09/01/2024 3:20 PM EST Office Visit [facility] [address] [facility] [place] [address] Antonio Colon MD [address] [facility] [place] [address] 09/19/2024 3:30 PM EST Office Visit Cardiology, [facility] [address] [facility] [place] [address] Davy Mota MD [address] [place] [address] 10/13/2024 9:00 AM EST Office Visit [facility] [place] [address] Antonio Colon MD [address] [place] [address] 10/25/2024 12:30 PM EST Office Visit Vascular Surgery, [facility] [place] [address] Benjamin Cartagena MD [address] [place] [address] Scheduled Procedures Name Priority Associated Diagnoses Date/Ti [...] 01/07/2024, 05/2023, 02/19/2023 Colorectal Cancer Screening 01/06/2025 Depression Monitoring 01/17/2025 01/18/2024 Diabetic Foot Exam 01/17/2025 01/18/2024, 11/24/2022 HbA1c 02/20/2025 08/22/2024, 03/15, 02/02/2024, Additional history exists TSH 08/22/2025 08/22/2024, 01/12, 02/02/2024, Additional history exists DTap/Tdap Vaccines (2 - Td or Tdap) 07/23/2027 07/23/2017 Albumin/Creatinine Ratio Discontinued 05/07/2023, 050 11/2021 RETIRED - COLONOSCOPY-ANNUAL AGES 18-100 Discontinued [...] Healthcare Agent Relationshi p Communication Lorin Silvestre [facility] Health Care Repr esentative (appointed verbally by patient or by statute hierarchy) Care Teams Road Sign Installer Relationship Specialty Start Date End Date Antonio Colon MD [address] [address] PCP - General Family Medicine 02/12/22 documented as of this encounter
--- OUTSIDE RECORDS SUMMARY | 2024-09-21 08:03 | External Medical Summary ---
Author Name Unknown Address Unknown Organization [id number]:LABORATORY [facility] - [address] [place] [address] Laboratory Report Ordering Provider Test Date Status SAMARA CHOWDHURY 08/24/2024 16:10:38 Final SCREENING Observation Date Value Abnormality Reference (Units ) Status SARS Coronavirus 2 08/24/2024 16:10:38 Negative N egative Final 2019 Novel Coronavirus not d etected.

This express test was developed and its performance characteristics determined by [facility]. It has not been cleared or approved by the U.S. Food and Drug Administration (FDA). FDA does not require this test to go thru premarket FDA review. This test is used for clinical purposes. It should not be regarded as investigational or for research. This laboratory is certified under the Clinical Laboratory Improvement Amendments (CLIA) as qualified to perform high complexity clinical laboratory testing.

This test is a nucleic acid amplification test (NAAT), a reverse transcriptase polymerase chain reaction (RT-PCR) test, or a Centers for Disease Control-acceptable equivalent. The test is performed in a high complexity Clinical Laboratory Improvement Amendments-(CLIA) certified laboratory. The test is acceptable for SARS-CoV-2 diagnosis, surveillance, and travel within the [place] and to most countries. Please check with local testing authorities about requirements before travel.

The validation of bronchial specimens, tracheal aspirates, and sputum for this assay was developed and performance characteristics determined by [facility]. The validation of alternate specimen types has not been cleared or approved by the U.S. Food and Drug Administration (FDA). It has been determined that such clearance is not necessary. Performing Location LABORATORY [facility] - [address] [facility] [address] [place] [place] [address]
--- OUTSIDE RECORDS SUMMARY | 2024-09-21 08:03 | External Medical Summary ---
Author Name Unknown Address Unknown Organization K01:LABORATORY [facility] - [address] [place] [address] Laboratory Report Ordering Provider Test Date Status ELIZABETH ALMEIDA 08/24/2024 16:10:38 Final Observation Date Value Abnormality Reference (Units ) Status Methicillin resistant Staphylococcus aureus (MRSA) DNA [Presence] in Nose by SILVIO with probe detection 08/24/2024 16:10:38 Positive Abnormal Negative Final Methicillin resistant Staphy lococcus aureus detected by PCR (amplified probe). MRSA-This patient may require isolation. Please refer to Infection Control isolation policy. Performing Location LABORATORY [facility] - [address] [place] [address]
--- OUTSIDE RECORDS SUMMARY | 2024-09-21 08:03 | External Medical Summary ---
Author Name Unknown Address Unknown Organization K1F:LABORATORY [facility] - [address] [place] [address] Laboratory Report Ordering Provider Test Date Status DERRELL BARBOUR 08/26/2024 06:01:00 Final Observation Date Value Abnormality Reference (Units ) Status Vancomycin, level 08/26/2024 06:01:00 15.8 10 .0-40.0 (ug/mL) Final Performing Location LABORATORY [facility] - [address] [place] [address]
--- OUTSIDE RECORDS SUMMARY | 2024-09-21 08:03 | External Medical Summary ---
Author Name Unknown Address Unknown Organization K1F:LABORATORY [facility] - [address] [facility] [place] [address] Laboratory Report Ordering Provider Test Date Status ELIZABETH ALMEIDA 08/24/2024 17:23:06 Final Observation Date Value Abnormality Reference (Units ) Status Color of Urine by Auto 08/24/2024 17:23:06 Yellow Light Yellow, Yellow, Dark Yellow Final Clarity, Urine 08/24/2024 17:23:06 Clear Clear Final Glucose [Mass/volume] in Urine by Automated test strip 08/24/2024 17:23:06 250 Abnormal Negative (mg/dL) Final Bilirubin.total [Presence] in Urine by Automated test strip 08/24/2024 17:23:06 Negative Negative Final Ketones [Mass/volume] in Urine by Automated test strip 08/24/2024 17:23:06 Negative Negative (mg/dL) Final Specific gravity, Urine 08/24/2024 17:23:06 1.008 1.003-1.030 Final Hemoglobin [Presence] in Urine by Automated test strip 08/24/2024 17:23:06 Trace Abnormal Negative Final pH, Urine 08/24/2024 17:23:06 8.0 Above high normal 5.0-7.5 (Units) Final Protein [Mass/volume] in Urine by Automated test strip 08/24/2024 17:23:06 100 Abnormal Negative (mg/dL) Final Urobilinogen [Mass/volume] in Urine by Automated test strip 08/24/2024 17:23:06 0.2 0.2, 1.0 (mg/dL) Final Nitrite [Presence] in Urine by Automated test strip 08/24/2024 17:23:06 Negative Negative Final Leukocyte esterase [Presence] in Urine by Automated test strip 08/24/2024 17:23:06 Negative Negative Final RBC, Urine 08/24/2024 17:23:06 0-2 0-2 (/HPF) Final WBC, Urine 08/24/2024 17:23:06 0-2 0-2 (/HPF) Final Bacteria [#/area] in Urine sediment by Microscopy high power field 08/24/2024 17:23:06 0-25 0-25 (/HPF) Final CULTURE, URINE - [facility] 08/24/2024 17:23:06 Final Culture not indicated by uri nalysis results\X09\ Performing Location LABORATORY [address]. [facility] [address]
--- OUTSIDE RECORDS SUMMARY | 2024-09-21 08:03 | External Medical Summary ---
Author Name Unknown Address Unknown Organization : Laboratory Report Ordering Provider Test Date Status DERRELL BARBOUR 08/25/2024 11:30:13 Final Observation Date Value Abnormality Reference (Units ) Status Glucose Point of Care 08/25/2024 11:30:13 291 Above high normal 70-120 (mg/dL) Final Performing Location
--- OUTSIDE RECORDS SUMMARY | 2024-09-21 08:03 | External Medical Summary ---
Author Name Unknown Address Unknown Organization : Laboratory Report Ordering Provider Test Date Status DERRELL BARBOUR 08/25/2024 16:01:12 Final Observation Date Value Abnormality Reference (Units ) Status Glucose Point of Care 08/25/2024 16:01:12 75 70-120 (mg/dL) Final Performing Location
--- OUTSIDE RECORDS SUMMARY | 2024-09-21 08:03 | External Medical Summary | Summary of Care ---
Author Name Unknown Organization [facility] Address [address] [place] [address] Phone [phone] Care Team Providers Care Production Aide Name Role Phone Antonio Colon MD Primary Care Provider [phone] Encounter Details Date Type Department Care Team (Late st Contact Info) Description 08/24/2024 Telephone Vascular Surg [facility] [address], [place] [id number] David Alcantara CRNP [address], [place] [id number] Allergies No known active allergiesdocumented as of this encounter (statuses as of 08/24/2024) Medications Co Q 10 10 MG Oral Capsule Take by mouth 1 Caplet Dosing Unit daily . Suspended Aspirin 81 MG Oral Capsule Take by mouth 1 Caplet Dosing Unit daily . Suspended Multi-Day Oral Tablet Take by mouth 1 Tablet in the morning. Suspended Vitamin D-3 25 MCG (1000 UT) Oral Capsule Take 1 Capsule by mouth in the morning. Suspended Metoprolol Succinate ER 25 MG Oral Tablet Extended Release 24 Hour (toPROL XL)Indications:Co ronary artery disease involving [place] coronary artery of [place] heart without angina pectoris TAKE 1 TABLET BY MOUTH EVERY DAY IN THE MORNING 90 Tablet 3 4 Suspended Prasugrel HCl 10 MG Oral Tablet (Effient)Indicati ons:Coronary artery disease involving [place] coronary artery of [place] heart without angina pectoris TAKE 1 TABLET BY MOUTH EVERY DAY IN THE MORNING 90 Tablet 3 4 Suspended Atorvastatin Calcium 40 MG Oral Tablet (Lipitor)Indicati ons:Dyslipidemia, goal LDL below 70 TAKE 1 TABLET BY MOUTH EVERY DAY IN THE MORNING 90 Tablet 3 4 Suspended Juluca 50-25 MG Oral Tablet Take 1 Tablet by mouth daily. 90 Tablet 3 4 Suspended Pen [place] 32G X 4 MM Use as directed. Use to inject insulin 4 times daily E11.9 400 Each 3 4 Suspended FLUoxetine HCl 20 MG Oral Capsule (PROzac)Indicatio ns:ST elevation (STEMI) myocardial infarction involving left circumflex coronary artery (HCC) TAKE 1 CAPSULE BY MOUTH EVERY DAY 90 Capsule 3 4 Suspended Levothyroxine Sodium 25 MCG Oral Tablet (Levoxyl) Take 1 Tablet by mouth daily first thing in the morning. 90 Tablet 3 4 Suspended NIFEdipine ER Osmotic Release 30 MG Oral Tablet Extended Release 24 Hour (Procardia XL) Take 1 Tablet by mouth in the morning. In the morning.. 90 Tablet 3 4 Suspended Pantoprazole Sodium 40 MG Oral Tablet Delayed Release (Protonix) Take 1 Tablet by mouth in the morning. 90 Tablet 3 4 Suspended FreeStyle Carlos 2 [place] DeviceIndications :Type 2 diabetes mellitus with hemoglobin A1c goal of less than 8.0% (HCC) Use as directed. Use to test BG E10.65 1 Each 4 Suspended FreeStyle Carlos 2 SensorIndications :Type 2 diabetes mellitus with hemoglobin A1c goal of less than 8.0% (HCC) Use as directed. Use one sensor every 14 days for blood sugar E10.65 1 Each 11 4 Suspended Fiasp FlexTouch 100 UNIT/ML Subcutaneous Solution Pen-injector (Insulin Aspart (w/Niacinamide))I ndications:Type 2 diabetes mellitus with hemoglobin A1c goal of less than 8.0% (HCC) Inject 10 Units under the skin in the morning and 10 Units at noon and 10 Units before bedtime. With meals. 15 mL 3 04/27/2024 10:53 AM EDT 4 Suspended Basaglar KwikPen 100 UNIT/ML Subcutaneous Solution Pen-injector (Insulin Glargine Solostar) INJECT UNDER THE SKIN 22 UNITS IN THE MORNING. 30 mL 1 4 Suspended Juluca 50-25 MG Oral Tablet (Dolutegravir-Ril pivirine) Take 1 Tablet by mouth daily. 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 05/07/2023 Recurrent major depressive disorder, in full rem ission 05/05/2022 Overweight (BMI 25.0-29.9) 05/02/2022 Dyslipidemia 05/02/2022 Coronary artery disease invo lving [place] coronary artery of [place] heart without angina pectoris 05/02/2022 Type 2 diabetes mellitus wit h hemoglobin A1c goal of less than 8.0% 05/02/2022 Old [place] (myocardial infarction) 05/02/2022 Chronic systolic (congestive) heart failure 04/14 Left bundle branch block 05/02/2022 HTN, goal below 130/80 HIV positive documented as of this encounter (statuses as of 08/24/2024) Resolved Problems Problem Noted Date Diagnosed Date Resolved Date Chronic heart failure with p reserved ejection fraction 11/24/2022 02/04/2023 Kidney disease, chronic, sta ge IV (GFR 15-29 ml/min) 05/02/2022 02/02/2024 ARDS (adult respiratory distress syndrome) 06/17/2012 05/02/2022 Acute pancreatitis 06/14/2012 Acute respiratory distress 06/14/2012 0 05/02/2022 documented as of this encounter (statuses as of 08/24/2024) Immunizations Name Administration Dates Next Due COVID-19 [...] No 01/18/2024 Does the household have a [employer] source of income? (Household - for ages [...] of Assessment Author No 08/22/2024 4:07 PM EST Aimee Mario RN documented as of this encounter Mental Status * Because of a physical, mental, or emotional condition, do you have serious difficulty concentrating, remembering, or making decisions? (5 years old or older) Answer Entry Date Author No 08/22/2024 4:07 PM EST Aimee Mario RN documented in this encounter Miscellaneous Notes * Telephone Encounter - Leticia Rodríguez LPN - 08/24/2024 9:39 AM EST I was able to schedule in 's on 10/25/24 Leticia Rodríguez LPN 08/24/2024 9:39 AM * Telephone Encounter - David Alcantara CRNP - 08/24/2024 9:29 AM EST Leticia Mr. Silvestre missed is return clinic visit yesterday at [facility] with Dr. Perez as he was hospitalized. Can we call him to arrange a return clinic visit with Dr. Cartagena at [facility] for AVF checkon either 09/20/2024 or 10/25/2024. Luis Alberto Hernandez documented in this encounter Plan of Treatment Upcoming Encounters Date Type Department Care Team (Late st Contact Info) Description 09/19/2024 3:30 PM EST Office Visit Cardiology, [facility] [address] [address] Davy Mota MD [address] [place] [address] 10/13/2024 9:00 AM EST Office Visit Family Practice [facility] [address] [place] [phone] Antonio Colon MD [address] [place] [address] 10/25/2024 12:30 PM EST Office Visit Vascular Surgery, [facility] [address] [place] [address] Benjamin Cartagena MD [address] [place] [address] Scheduled Procedures Name Priority Associated Diagnoses Date/Ti [...] 11/27/2020, Additional history exists Colonoscopy 01/06/2025 01/07/2024, 06/05/2023, 02/19/2023 Colorectal Cancer Screening 01/06/2025 Depression Monitoring [...] Activated Date Inactivated Comments 08/22/2024 3:41 PM This order re flects the patients wishes and were consensually agreed [...] patient or by statute hierarchy) Care Teams Production Aide Relationship Specialty Start Date End Date Antonio Colon MD [address] [place] [address] PCP - General Family Medicine 02/12/22 documented as of this encounter
--- OUTSIDE RECORDS SUMMARY | 2024-09-21 08:03 | External Medical Summary ---
Author Name Unknown Address Unknown Organization [facility] [address] [address] Laboratory Report Ordering Provider Test Date Status MARCIANO BARBOURROCKY 08/26/2024 06:01:00 Final Observation Date Value Abnormality Reference (Units ) Status BUN 08/26/2024 06:01:00 24 Above high normal 6-20 (mg/dL) Final Creatinine 08/26/2024 06:01:00 3.7 Above high normal 0.6-1.2 (mg/dL) Final Glomerular filtration rate/1.73 sq M.predicted [Volume Rate/Area] in Serum, Plasma or Blood by Creatinine-based formula (CKD-EPI) 08/26/2024 06:01:00 17 Below low normal >=60 (mL/min) Final eGFR is calculated based on the CKD-EPI 2020 equation. Sodium 08/26/2024 06:01:00 134 Below low normal 135 -146 (mmol/L) Final Potassium 08/26/2024 06:01:00 4.3 3.5-5.1 (m mol/L) Final Cl 08/26/2024 06:01:00 102 98-107 (mm ol/L) Final CO2 08/26/2024 06:01:00 21 Below low normal 22- 32 (mmol/L) Final Anion gap 08/26/2024 06:01:00 11 7-15 (mmol /L) Final Glucose 08/26/2024 06:01:00 168 Above high normal 70 -120 (mg/dL) Final Calcium 08/26/2024 06:01:00 9.3 8.4-10.2 ( mg/dL) Final Performing Location [facility] [address] [address]
--- OUTSIDE RECORDS SUMMARY | 2024-09-21 08:03 | External Medical Summary ---
Author Name Unknown Address Unknown Organization : Laboratory Report Ordering Provider Test Date Status DERRELL BARBOUR 08/25/2024 07:59:16 Final Observation Date Value Abnormality Reference (Units ) Status Glucose Point of Care 08/25/2024 07:59:16 152 Above high normal 70-120 (mg/dL) Final Performing Location
--- OUTSIDE RECORDS SUMMARY | 2024-09-21 08:03 | External Medical Summary ---
Author Name Unknown Address Unknown Organization [facility] [address] [address] Laboratory Report Ordering Provider Test Date Status ABRAM BARBOURNELLIE 08/25/2024 06:45:00 Final Observation Date Value Abnormality Reference (Units ) Status BUN 08/25/2024 06:45:00 18 6-20 (mg/dL) Final Creatinine 08/25/2024 06:45:00 3.2 Above high normal 0.6-1.2 (mg/dL) Final Glomerular filtration rate/1.73 sq M.predicted [Volume Rate/Area] in Serum, Plasma or Blood by Creatinine-based formula (CKD-EPI) 08/25/2024 06:45:00 20 Below low normal >=60 (mL/min) Final eGFR is calculated based on the CKD-EPI 2020 equation. Sodium 08/25/2024 06:45:00 139 135-146 (m mol/L) Final Potassium 08/25/2024 06:45:00 4.6 3.5-5.1 (m mol/L) Final Results may be falsely eleva irma due to hemolysis. Cl 08/25/2024 06:45:00 102 98-107 (mm ol/L) Final CO2 08/25/2024 06:45:00 26 22-32 (mmo l/L) Final Anion gap 08/25/2024 06:45:00 11 7-15 (mmol /L) Final Glucose 08/25/2024 06:45:00 174 Above high normal 70 -120 (mg/dL) Final Calcium 08/25/2024 06:45:00 9.2 8.4-10.2 ( mg/dL) Final Performing Location [facility] [address] [address]
--- OUTSIDE RECORDS SUMMARY | 2024-09-21 08:03 | External Medical Summary ---
Author Name Unknown Address Unknown Organization : Laboratory Report Ordering Provider Test Date Status MICHAEL CORRAL 08/26/2024 12:09:55 Final Observation Date Value Abnormality Reference (Units ) Status Glucose Point of Care 08/26/2024 12:09:55 117 70-120 (mg/dL) Final Performing Location
--- OUTSIDE RECORDS SUMMARY | 2024-09-21 08:03 | External Medical Summary ---
Author Name Unknown Address Unknown Organization : Laboratory Report Ordering Provider Test Date Status DERRELL BARBOUR 08/25/2024 17:46:58 Final Observation Date Value Abnormality Reference (Units ) Status Glucose Point of Care 08/25/2024 17:46:58 137 Above high normal 70-120 (mg/dL) Final Performing Location
--- OUTSIDE RECORDS SUMMARY | 2024-09-21 08:03 | External Medical Summary ---
Author Name Unknown Address Unknown Organization [facility] - [address] [address] Laboratory Report Ordering Provider Test Date Status DERRELL BARBOUR 08/25/2024 06:45:00 Final Observation Date Value Abnormality Reference (Units ) Status WBC, Total 08/25/2024 06:45:00 4.32 4.00-10.80 (K/uL) Final RBC 08/25/2024 06:45:00 3.79 4.50-5.25 (M/uL) Final Hemoglobin 08/25/2024 06:45:00 10.7 Below low normal 14.0-16.8 (g/dL) Final HCT 08/25/2024 06:45:00 32.8 Below low normal 40.0-48.4 (%) Final MCV 08/25/2024 06:45:00 86.5 82.0-99.5 (fL) Final MCH 08/25/2024 06:45:00 28.2 27.0-34.0 (pg) Final MCHC 08/25/2024 06:45:00 32.6 32.0-36.0 (g/dL) Final RDW 08/25/2024 06:45:00 13.4 11.5-15.5 (%) Final Platelets 08/25/2024 06:45:00 165 140-400 (K/uL) Final MPV 08/25/2024 06:45:00 8.6 6.6-11.1 (fL) Final Nucleated erythrocytes/100 leukocytes [Ratio] in Blood by Automated count 08/25/2024 06:45:00 0 <=0 (/100 WBCs) Final Performing Location [facility] [address] [address]
--- OUTSIDE RECORDS SUMMARY | 2024-09-21 08:03 | External Medical Summary | Summary of Care ---
Author Name Unknown Organization [facility] Address [address] [place] [address] Phone [phone] Care Team Providers Care Supervisor Pre Wave Name Role Phone Antonio Colon MD Primary Care Provider [phone] Encounter Details Date Type Department Care Team (Late st Contact Info) Description 08/24/2024 Telephone Vascular Surg [facility] [address], [place] [phone] David Alcantara CRNP [address], [place] [phone] Allergies No known active allergiesdocumented as of [...] Hour (toPROL XL)Indications:Co ronary artery disease involving [place] coronary artery of [place] heart without angina pectoris TAKE 1 TABLET BY MOUTH EVERY DAY IN THE MORNING 90 Tablet 3 4 Suspended Prasugrel HCl 10 MG Oral Tablet (Effient)Indicati ons:Coronary artery disease involving [place] coronary artery of [place] heart without angina pectoris TAKE 1 TABLET BY MOUTH EVERY DAY IN THE MORNING 90 Tablet 3 4 Suspended Atorvastatin Calcium 40 MG Oral Tablet (Lipitor)Indicati ons:Dyslipidemia, goal LDL below 70 TAKE 1 TABLET BY MOUTH EVERY DAY IN THE MORNING 90 Tablet 3 4 Suspended Juluca 50-25 MG Oral Tablet Take 1 Tablet by mouth daily. 90 Tablet 3 4 Suspended Pen [place] 32G X 4 MM Use as directed. [...] Tablet 3 4 Suspended FreeStyle Carlos 2 [place] DeviceIndications :Type 2 diabetes mellitus with hemoglobin [...] Dyslipidemia 05/02/2022 Coronary artery disease invo lving [place] coronary artery of [place] heart without angina pectoris 05/02/2022 Type 2 diabetes mellitus wit h hemoglobin A1c goal of less than 8.0% 05/02/2022 Old [place] (myocardial infarction) 05/02/2022 Chronic [...] No 01/18/2024 Does the household have a [facility] source of income? (Household - for ages [...] missed is return clinic visit yesterday at [facility] with Dr. Perez as he was hospitalized. Can we call him to arrange a return clinic visit with Dr. Cartagena at [facility] for AVF checkon either 09/20/2024 or 10/25/2024. Luis Alberto Hernandez documented in this encounter Plan of Treatment Upcoming Encounters Date Type Department Care Team (Late st Contact Info) Description 09/19/2024 3:30 PM EST Office Visit Cardiology, [facility] [address] [address] Davy Mota MD [address] [place] [address] 10/13/2024 9:00 AM EST Office Visit Family Practice [facility] [address] [place] [address] Antonio Colon MD [address] [place] [address] 10/25/2024 12:30 PM EST Office Visit Vascular Surgery, [facility] [address] [place] [address] Benjamin Cartagena MD [address] [place] [address] Scheduled Procedures Name Priority Associated Diagnoses Date/Ti [...] Healthcare Agent Relationshi p Communication Lorin Silvestre [facility] Health Care Repr esentative (appointed verbally by patient or by statute hierarchy) Care Teams Supervisor Pre Wave Relationship Specialty Start Date End Date Antonio Colon MD [address] [place] [address] PCP - General Family Medicine 02/12/22 documented as of this encounter
--- OUTSIDE RECORDS SUMMARY | 2024-09-21 08:03 | External Medical Summary | Summary of Care ---
Author Name Unknown Organization [facility] Address [address] [place] [address] Phone [phone] Care Team Providers Care Abstracter Name Role Phone Antonio Colon MD Primary Care Provider [phone] Reason for Visit * Auth/Cert Specialty Diagnoses / Procedures Referred By Marques t Referred To Contact Diagnoses Complication associated with dialysis catheter Complication associated with dialysis catheter [T82.9XXA] Procedures REPLACE,COMP,MARCUS CENT ACC DEV REPLACEMENT COMPLETE TUNNELED CENTRAL CATHETER NO PORT Damion Barber MD [address] [place] [address] [place] [address] Phone: tel: fax: OR [facility], Operating Room, [facility] - 4th Floor [address] [place] [address] Phone: tel: Referral ID Status Reason Start Date Expiration Date Visits Re quested Visits Authorized [id number] Encounter Details Date Type Department Care Team (Latest Contact Info) Description 08/22/2024 11:00 AM EST - 08/26/2024 2:40 PM EST Hospital Encounter 6B [facility] 6th Floor [address] [place] [address] Damion Barber MD [address] [place] [address] Jaycob Horton MD [address] [place] [address] [place] MD [address] [place], [place] [id number] Angelica Hall MD, PhD [address] [place], [place] [id number] Sam Jackson MD [address] [place], [place] [id number] Pt Handout (on AVS) Discharge Disposition: Home - Self Care Allergies No known active allergiesdocumented as of this encounter (statuses as of 08/27/2024) Medications Co Q 10 10 MG Oral [...] Hour (toPROL XL)Indications: Coronary artery disease involving [place] coronary artery of [place] heart without angina pectoris TAKE 1 TABLET BY MOUTH EVERY DAY IN THE MORNING 90 Tablet Active Prasugrel HCl 10 MG Oral Tablet (Effient)Indica tions:Coronary artery disease involving [place] coronary artery of [place] heart without angina pectoris TAKE 1 TABLET BY MOUTH EVERY DAY IN THE MORNING 90 Tablet Active Atorvastatin Calcium 40 MG Oral Tablet (Lipitor)Indica tions:Dyslipide jimmy, goal LDL below 70 TAKE 1 TABLET BY MOUTH EVERY DAY IN THE MORNING 90 Tablet 024 Active Juluca 50-25 MG Oral Tablet Take 1 Tablet by mouth daily. 90 Tablet Active Pen [place] 32G X 4 MM Use as directed. Use to inject insulin 4 times daily E11.9 400 Each 3 03/21/2 024 Active FLUoxetine HCl 20 MG Oral Capsule (PROzac)Indicat ions:ST elevation (STEMI) myocardial infarction involving left circumflex coronary artery (HCC) TAKE 1 CAPSULE BY MOUTH EVERY DAY 90 Capsule 3 024 Active Levothyroxine Sodium 25 MCG Oral Tablet (Levoxyl) Take 1 Tablet by mouth daily first thing in the morning. 90 Tablet 3 024 Active NIFEdipine ER Osmotic Release 30 MG Oral Tablet Extended Release 24 Hour (Procardia XL) Take 1 Tablet by mouth in the morning. In the morning.. 90 Tablet 3 024 Active Pantoprazole Sodium 40 MG Oral Tablet Delayed Release (Protonix) Take 1 Tablet by mouth in the morning. 90 Tablet 3 024 Active FreeStyle Carlos 2 [place] DeviceIndicatio ns:Type 2 diabetes mellitus with hemoglobin A1c goal of less than 8.0% (FORMERLY [facility]) Use as directed. Use to test BG E10.65 1 Each Active FreeStyle Carlos 2 SensorIndicatio ns:Type 2 diabetes mellitus with hemoglobin A1c goal of less than 8.0% (FORMERLY [facility]) Use as directed. Use one sensor every 14 days for blood sugar E10.65 1 Each Active Fiasp FlexTouch 100 UNIT/ML Subcutaneous Solution Pen-injector (Insulin Aspart (w/Niacinamide) )Indications:Ty pe 2 diabetes mellitus with hemoglobin A1c goal of less than 8.0% (FORMERLY [facility]) Inject 10 Units under the skin in [...] 05, 2024 10 g 024 2023 Active vancomycin IV IV (AMBULATORY) Administer 1,000 mg intravenously once a day on Wednesday, , and Wednesday only for 10 days. Administer AFTER dialysis. Labs needed: CBC with diff, BMP and vancomycin level weekly until antibiotic completed. End Date Sep 05, 2024 10 g 024 2023 Discontinued documented as of this encounter (statuses as of 08/27/2024) Active Problems Problem Noted Date Diagnosed Date [...] Dyslipidemia 05/02/2022 Coronary artery disease invo [place]ving [place] coronary artery of [place] heart without angina pectoris 05/02/2022 Type 2 diabetes mellitus wit h hemoglobin A1c goal of less than 8.0% 05/02/2022 [place] (myocardial infarction) 05/02/2022 Chronic systolic (congestive) heart failure 04/14 Left bundle branch block 05/02/2022 HTN, goal below 130/80 HIV positive documented as of this encounter (statuses as of 08/27/2024) Resolved Problems Problem Noted Date Diagnosed Date Resolved Date Chronic heart failure with p reserved ejection fraction 11/24/2022 02/04/2023 Kidney disease, chronic, sta ge IV (GFR 15-29 ml/min) 05/02/2022 02/02/2024 ARDS (adult respiratory distress syndrome) 06/17/2012 05/02/2022 Acute pancreatitis 06/14/2012 Acute respiratory distress 06/14/2012 0 05/02/2022 documented as of this encounter (statuses as of 08/27/2024) Immunizations Name Administration Dates Next Due COVID-19 [...] No 01/18/2024 Does the household have a [facility] income? (Household - for ages [...] Sign Reading Time Taken Comments Blood Pressure 142/71 08/26/2024 11:58 AM EST Pulse 60 08/26/2024 11:58 AM EST Temperature 36.3 C (97.3 F) 08/26/2024 11:[address] Respiratory Rate 16 08/26/2024 11:58 AM EST Oxygen Saturation 99% 08/26/2024 11:58 AM EST Inhaled Oxygen Concentration - - Weight 77.1 kg (170 lb) 08/22/2024 4:07 PM EST Height 175.3 cm (5' 9.02") 08/22/2024 4:07 PM ES T Body Mass Index 25.09 08/22/2024 4:07 PM EST documented in this encounter Functional [...] Aimee Dobbs RN documented in this encounter Discharge Instructions * Discharge Instr - AVS* Sam Jackson MD - 08/22/2024 1:34 PM EST Discharge Date: 08/26/2024 Provider: Dr. Damion Barber If you are experiencing any problems related to your procedure, please contact Interventional Radiology at [phone] during normal business hours: Wednesday- Wednesday 7:30 am - 4 pm. If a problem occursoutside of normal business hours, please call the hospital taping machine operator at [phone] and ask for theInterventional Radiologist gis consultant. Contact scheduling for Interventional Radiology at [phone] during normal business hours: Wednesday-Wednesday, 7:30 am - 4 pm. The information below provides you with the instructions and the list of medications you need to betaking following discharge from the hospital. If you have any questions, please ask before leaving.Please carry this letter with you when you see your doctor in the clinic. If you have questions, you can reach us at the numbers above. SPECIAL INSTRUCTIONS Mediport Insertion (Implanted Central Venous Access) A Mediport is a sealed chamber covered by a silicone disc that is surgically placed in a pocket under the skin on the upper chest, just below the collarbone. This chamber connects to a flexible tube that goes into a large vein in the neck. The tip is near the heart. The port provides direct access to the bloodstream and can be used in drawing blood samples and giving intravenous fluids and medications. Some ports allow CT scan injections; these ports are referred to as "Power Ports." The port will be visible only as a small raised area beneath your skin. Home Care If you experience pain or discomfort at the site you may use a cold pack on the site and/or take acetaminophen (Tylenol) or your preferred pain medicine as directed. Avoid contact sports or any activity that may cause blunt force impact to the port area, as it may damage your port. Avoid strenuous activity for 24 to 48 hours after the procedure. Do not lift anything heavier than 10 pounds for 3 days after the procedure. Gradually increase your activity after 24 to 48 hours after the procedure. No dressing changes or wound care are needed at the insertion site. Your wound is closed with sutures on the inside and then sealed on the outside with a special "skin glue" called Dermabond (a surgical glue). Depending on your physician's preference, there may also be "steri strips" applied. It isvery important to let these special bandages fall off on their own. Please do not scrub or pull these bandages off. You may gently wash the area with soap and water. Depending on your physician's preference, there may also be gauze and Tegaderm (clear) bandage overthe Mediport insertion site. You may remove this bandage in 24 hours. You may shower in 24 hours. Gently wash the area and pat it dry. Please DO NOT take a bath, soak in a hot tub, or swim until the wound is completely healed. Your port must be accessed and flushed/heparinized every 30 days if it is not currently being used. When to Call Interventional Radiology Call Interventional Radiology right away if you have any of the following: Fever above 100 degrees Fahrenheit Increased bleeding, redness, swelling, warmth, or discharge at the incision site. Constant or increasing pain, numbness, coldness, or tingling around the incision area. Vomiting or nausea that does not go away If at any time you experience any of the following or feel you are having a medical emergency, [id number] for emergency assistance. Chest Pain Sudden, severe shortness of breath Rapid heart rate Sudden onset of weakness Do not smoke or use tobacco products in any way! If you feel suicidal or homicidal, please call the crisis hotline at [phone]-DWLI ([phone]) MODERATE SEDATION You may have received medication that made you comfortable/sedated you during your procedure. This is considered moderate sedation. This medication was given to relax you. You may also not remember having the procedure done. It may take up to 24 hours for this medication to be out of your system. Because of this, you should observe the following for the next 24 hours: Do not drink alcohol or take depressant drugs. Do not operate any type of machinery that requires hand-eye coordination. Do not sign any legal papers or documents. Do not make any financial decisions. You should be in the presence of an adult for the remainder of the day. If you are experiencing any problems related to your procedure, you should contact the Interventional Radiology physician unless otherwise directed. Driving: You may resume driving 1 day . Diet: You may resume your current diet as tolerated. Return to work or school: You may return to school or work 1 days after the procedure, unless otherwise instructed by the physician. Syndrome Catheter-related bloodstream infection Microbiology N/A Antibiotic Vancomycin Dose per Pharmacy for Goal AUC 400-600 mg/L/hr - Vancomycin to be dosed and administered after dialysis on dialysis days only and to be adjusted per AUC End Date Sep 05, 2024 Vascular access: Not applicable Recommended followup imaging studies: Not applicable LABORATORY MONITORING: Lab Test Frequency End Date BMP CBC with diff Vancomycin level(s) for AUC monitoring Q week Sep 05, 2024 documented in this encounter Progress Notes * Nemo Herron MD - 08/26/2024 12:36 PM EST DIALYSIS PROGRESS NOTE - Nephrology [facility] [address] Name: Tad Silvestre Location: [facility] [id number] Date: 08/26/2024 Time: 12:37 PM SUBJECTIVE: No acute interval events. No further rigors; remains afebrile. HEMODIALYSIS: single visit The patient was seen during the hemodialysis procedure. Current Facility-Administered Medications Medication Dose Route Frequency Provider Vancomycin (Vancocin) 1000 mg in NSS 250 mL ivpb LOCKED DOSE 1,000 mg IV Piggyback Once Sam Jackson MD hEParin 1000 UNIT/ML inj (dialysis orders only) Intravenous On dialysis Pierre Lara MD insulin aspart (NovoLOG) inj 3 Units 3 Units Subcutaneous With meals Angelica Hall MD, PhD insulin aspart (NovoLOG) inj Subcutaneous With Meals and HS Angelica Hlal MD, PhD midodrine (Proamatine) tab 5 mg 5 mg Oral TID Angelica Hall MD, PhD hEParin 1000 UNIT/ML inj (dialysis orders only) Intravenous On dialysis Pierre Lara MD Acetaminophen (Tylenol) tab 650 mg 650 mg Oral Q6H PRN Jaycob Horton MD aspirin chew tab 81 mg 81 mg Oral Daily(AM) Jaycob Horton MD atorvaSTATin (Lipitor) tab 40 mg 40 mg Oral Q 1700 Jaycob Horton MD Polyethylene Glycol 3350 (Miralax) oral powder 17 g 1 Packet Oral Daily PRN Jayocb Horton MD And senna-docusate (Senokot-S) 1 Tablet 1 Tablet Oral BID PRN Jaycob Horton MD And Bisacodyl (Dulcolax) tab 5 mg 5 mg Oral Daily PRN Jaycob Horton MD And Bisacodyl (Dulcolax) supp 10 mg 10 mg Rectal Daily PRN Jaycob Horton MD calcium CARBonate (Tums E-X) tab CHEW 750 mg 750 mg Oral BID PRN Jaycob Horton MD chlorhexidine gluconate cloth 2 % pad External Daily 1000 Jaycob Horton MD cholecalciferol (VIT D3) (Vitamin D3) tab 1,000 Units 1,000 Units Oral Daily(AM) Jaycob Horton MD dextrose 50% inj 25 mL 25 mL IV Push PRN Jaycob Horton MD dextrose 50% inj 50 mL 50 mL IV Push PRN Jaycob Horton MD Dolutegravir (Tivicay) tab 50 mg 50 mg Oral Daily(AM) Jaycob Horton MD And Rilpivirine (Edurant) tab 25 mg 25 mg Oral Daily(AM) Jaycob Horton MD Enoxaparin (Lovenox) inj 30 mg 30 mg Subcutaneous Daily(AM) Jaycob Horton MD FLUoxetine (PROzac) cap 20 mg 20 mg Oral Daily(AM) Jaycob Horton MD glucagon (Glucagen) inj 1 mg 1 mg Intramuscular PRN Jaycob Horton MD Glucose (Glutose 15) 40 % gel 15 g of glucose 15 g of glucose Oral PRN Jaycob Horton MD Glucose (Glutose 15) 40 % gel 30 g of glucose 30 g of glucose Oral PRN Jaycob Horton MD glucose chew tab 16 g 16 g Oral PRN Jaycob Horton MD Insulin Glargine (Lantus) inj 22 Units 22 Units Subcutaneous Daily 0900 Jaycob Horton MD levothyroxine (Levoxyl) tab 25 mcg 25 mcg Oral Daily 0630 Jaycob Horton MD melatonin tab 3 mg 3 mg Oral HS PRN Jaycob Horton MD Menthol ([place]) cough drop 1 Lozenge 1 Lozenge Oral Q2H PRN Jaycob Horton MD metoprolol succinate XL (toPROL XL) tab 25 mg 25 mg Oral Daily(AM) Jaycob Horton MD ondansetron (Zofran) inj 4 mg 4 mg IV Push Q6H PRN Jaycob Horton MD Oral Hygiene: Mouth Swab with dentifrice Oral QID(AM/NOON/PM/HS) Jaycob Horton MD pantoprazole (Protonix) tab 40 mg 40 mg Oral Daily(AM) Jaycob Horton MD prasugrel (Effient) tab 10 mg 10 mg Oral Daily(AM) Jaycob Horton MD sodium chloride 0.9 % flush central line 10 mL 10 mL IV Push Q8H Jaycob Horton MD sodium chloride 0.9 % flush/inj 3 mL 3 mL IV Push PRN Jaycob Horton MD vancomycin per pharmacy order Does Not Apply Per Pharmacy Jaycob Horton MD OBJECTIVE: Most Recent Vital Signs: BP: 142 mmHg/71 mmHg (08/26/24 115) Pulse: 60 (08/26/24 115) Resp: 16 (08/26/241157) Temp: 36.28 C (08/26/24 115) Temp Summary: Temp Min: 36 C (96.8 F) Max: 36.8 C (98.2 F) SpO2: 99 % (08/26/241157) O2 flow rate: 2 L/MIN (08/23/24 0245) Supplemental O2 Delivery: Room Air, None (08/26/24 0852) Vital Signs Last 24 Hours: Systolic BP: Most Recent Systolic BP Av.7 mmHg Min: 119 mmHg Max: 166 mmHg Temperature: Most Recent Temperature Av.3 C Min: 36 C Max: 36.78 C Pulse: Pulse Av.1 Min: 54 Max: 74 Respirations: Resp Av.9 Min: 15 Max: 16 SpO2: SpO2 Av.6 % Min: 97 % Max: 99 % I&O Brief: Intake/Output Summary (Last 24 hours) at 08/26/2024 1237 Last data filed at 08/26/2024 1234 Gross per 24 hour Intake 2520 ml Output 1280 ml Net 1240 ml Drips: none GENERAL: Alert, in no acute distress. On RA EYES: EOMI, conjunctivae anicteric. LUNGS: Clear to auscultation bilaterally, no respiratory distress. CARDIAC: Regular rate and rhythm, normal S1/S2, no murmurs, rubs, or gallops. ABDOMEN: Soft, non-tender, non-distended, bowel sounds present. EXT/MSK: No clubbing, cyanosis, or edema. SKIN: No rash, no jaundice. NEURO: No tremor, no asterixis. LABS reviewed IMPRESSION: 69-year-old male with a past medical history of HIV(viral load undetectable, CD4 599), type 2 diabetes(last A1c 8.6), end-stage renal disease on dialysis TTS at [facility], depression, GERD with a history of duodenal ulcer, essential hypertension, history of [place] who was admitted after developing rigors during recovery following exchange of hemodialysis catheter. Plan: ESRD: Patient is on dialysis Wednesday. Tolerating dialysis well as OP and today asIP >> on track when I saw him to get 1 L UF -d/c home post procedure today -start using AVF as soon as feasible Sepsis: Likely due to bacteremia. Cultures 08/22 blood are negative so far. Agree with discharging on vancomycin 1 g Wednesday with dialysis through 09/05; confirmed w/ his OP unit that they have appropriate orders to do ths. Appreciate consult; will follow with you. * Falguni Sanderson [facility] - 08/26/2024 7:36 AM EST PHARMACY PHARMACOKINETIC CONSULT [facility] [address] Name: Tad Silvestre Location: [facility] 6B-[id number]/D Date: 08/26/2024 Time: 7:19 AM Requesting Service: hospitalist Bacteria being treated: empiric Source of infection: sepsis Medication(s) being managed: Vancomycin Pharmacokinetic calculations will be performed without utilizing CooCoo software due to meeting exclusion criteria (LEE ANN Stage 2 or 3 YASIR, or receiving renal replacement therapy [iHD, CRRT, PD]). Lab information: Lab Results Component Value Date/Time WBC 5.01 08/26/2024 06:01 AM WBC 4.32 08/25/2024 06:45 AM WBC 6.68 08/24/2024 06:26 AM WBC 6.04 08/23/2024 06:25 AM WBC 5.40 08/22/2024 06:21 PM WBC 18.27 (H) 06/17/2012 06:08 AM WBC 16.36 (H) 06/16/2012 05:08 AM WBC 15.11 (H) 06/15/2012 05:32 AM WBC 16.51 (H) 06/14/2012 06:19 PM Lab Results Component Value Date/Time BUN 24 (H) 08/26/2024 06:01 AM BUN 18 08/25/2024 06:45 AM BUN 35 (H) 08/24/2024 06:26 AM BUN 36 (H) 08/23/2024 06:25 AM BUN 38 (H) 08/22/2024 04:12 PM BUN 48 (H) 10/02/2020 03:48 PM BUN 52 (H) 07/01/2020 01:03 PM BUN 18 06/17/2012 06:08 AM BUN 16 06/16/2012 05:08 AM BUN 14 06/15/2012 05:32 AM BUN 12 06/14/2012 06:19 PM Lab Results Component Value Date/Time CREAT 3.7 (H) 08/26/2024 06:01 AM CREAT 3.2 (H) 08/25/2024 06:45 AM CREAT 3.9 (H) 08/24/2024 06:26 AM CREAT 3.8 (H) 08/23/2024 06:25 AM CREAT 3.6 (H) 08/22/2024 04:12 PM CREAT 3.37 (H) 10/02/2020 03:48 PM CREAT 3.31 (H) 07/01/2020 01:03 PM CREAT 0.9 06/17/2012 06:08 AM CREAT 0.8 06/16/2012 05:08 AM CREAT 0.8 06/15/2012 05:32 AM CREAT 0.9 06/14/2012 06:19 PM ANTIMICROBIALS GIVEN (last 28 hours) None Wt Readings from Last 1 Encounters: 08/22/24 77.1 kg (170 lb) Dosing and levels to date: Lab Results Component Value Date/Time VANCORANDOM 15.8 08/26/2024 06:01 AM VANCORANDOM 14.6 08/24/2024 06:26 AM VANCORANDOM 20.7 08/23/2024 06:25 AM Day of Therapy Date Dose Admin Time Level (mcg/mL) Collected Time Notes/Comments 1 12/10 2000 mg ~ 1730 LD 2 08/23 none 20.7 0625 3 08/24 1000 mg 1700 14.6 0626 4 08/25 none 5 08/26 1000 mg 1700 15.8 0601 Plan/Recommendations: ESRD on HD schedule Wednesday, , Wednesday Give vancomycin 1000 mg IV post dialysis today 08/26/24 before patient is discharged. Pharmacy will continue to follow and dose as appropriate by renal function, culture results, infectious disease input, and overall clinical status. Contact the pharmacy at extension [phone] if there are any questions. * Angelica Hall MD, PhD - 08/25/2024 4:50 PM EST Images from the original note were not included. [facility] 6B-6019/D INTERVAL HISTORY: 69-year-old male with a past medical history of HIV(viral load undetectable, CD4 163), type 2 diabetes(last A1c 8.6), end-stage renal disease on dialysis TTS with permacath, depression, GERD with a history of duodenal ulcer, essential hypertension, history of [place] who was admitted after developing rigors during recovery following exchange of hemodialysis catheter. Interval history: - seen by ID, no fevers cultures no growth to date, narrowed to vancomycin Subjective: Patient feeling well today dialysis went well yesterday no issues. He was having some mildly loose stool but thinks it is improving since he is off the Zosyn Patient is hopeful for discharge today if antibiotics are be arranged Objective Physical Exam Most Recent Vital Signs: BP: 149 mmHg/68 mmHg (08/25/24 152) Pulse: 59 (08/25/24 1525) Resp: 16 (08/25/24 1525) Temp: 36.28 C (08/25/24 152) Temp Summary: Temp Min: 36.1 C (97 F) Max: 37 C (98.6 F) SpO2: 99 % (08/25/24 152) O2 flow rate: 2 L/MIN (08/23/24 0245) Supplemental O2 Delivery: Room Air, None (08/25/24 1525) Peripheral Line Right;Lower Arm 22 Gauge (Active) Number of days: 1 Dialysis Catheter Double Lumen Right Subclavian (Active) Number of days: 3 Hemodialysis Arteriovenous Graft Left Forearm (Active) Number of days: 3 BP 149/68 | Pulse 59 | Temp 36.3 C (97.3 F) (Temporal Artery) | Resp 16 | Ht 1.753 m (5' 9.02")| Wt 77.1 kg (170 lb) | SpO2 99% | BMI 25.09 kg/m | BSA 1.94 m Vitals reviewed over last 24 hours General: well appearing, lying comfortably in bed in no apparent distress HEEN: EOMI, no scleral icterus, ophx clear, NECK: no stridor, no JVD PULM: CTAB, no wheezes- anterior chest dialysis perma cath- site appears clean under dressing, NO crusted blood or oozing noted CVS: RRR, no mumurs, no rubs, no gallops, cap refil<2sec ABD: soft, NT, ND +BS, no rebound EXT: WWP, no peripheral edema, no clubbing, LUE +thrill Neuro:alert and oriented x3, CN 2-12 grossly intact, strength grossly intact Psych: normal mood and affect STUDIES: Encounter Orders Labs and other studies reviewed with pertinent findings noted below: Recent Results (from the past 24 hours) URINALYSIS, REFLEX TO CULTURE (CUP ONLY) Collection Time: 08/24/24 5:23 PM Result Value Ref Range Urinalysis, Reflex to Culture Specimen Specimen collected and received URINALYSIS, REFLEX TO CULTURE Collection Time: 08/24/24 5:23 PM Result Value Ref Range Color, Urine Yellow Light Yellow, Yellow, Dark Yellow Clarity, Urine Clear Clear Glucose, Urine 250 (A) Negative mg/dL Bilirubin, Urine Negative Negative Ketone, Urine Negative Negative mg/dL Specific [place], Urine 1.008 1.003 - 1.030 Blood, Urine Trace (A) Negative pH, Urine 8.0 (H) 5.0 - 7.5 Units Protein, Urine 100 (A) Negative mg/dL Urobilinogen, Urine 0.2 0.2, 1.0 mg/dL Nitrite, Urine Negative Negative Esterase, Urine Negative Negative RBC, Urine 0-2 0 - 2 /HPF WBC, Urine 0-2 0 - 2 /HPF Bacteria, Urine 0-25 0 - 25 /HPF Culture, Urine GLUCOSE METER, POINT OF CARE Collection Time: 08/24/24 9:08 PM Result Value Ref Range GLUCOSE - POCT 247 (H) 70 - 120 mg/dL BASIC METABOLIC PANEL Collection Time: 08/25/24 6:45 AM Result Value Ref Range BUN 18 6 - 20 mg/dL CREATININE 3.2 (H) 0.6 - 1.2 mg/dL EGFR 20 (L) >=60 mL/min SODIUM 139 135 - 146 mmol/L POTASSIUM 4.6 3.5 - 5.1 mmol/L CHLORIDE 102 98 - 107 mmol/L CO2 26 22 - 32 mmol/L ANION GAP 11 7 - 15 mmol/L GLUCOSE 174 (H) 70 - 120 mg/dL CALCIUM 9.2 8.4 - 10.2 mg/dL CBC Collection Time: 08/25/24 6:45 AM Result Value Ref Range WBC 4.32 4.00 - 10.80 K/uL RBC 3.79 4.50 - 5.25 M/uL HGB 10.7 (L) 14.0 - 16.8 g/dL HCT 32.8 (L) 40.0 - 48.4 % MCV 86.5 82.0 - 99.5 fL MCH 28.2 27.0 - 34.0 pg MCHC 32.6 32.0 - 36.0 g/dL RDW 13.4 11.5 - 15.5 % PLT 165 140 - 400 K/uL MPV 8.6 6.6 - 11.1 fL nRBCs 0 <=0 /100 WBCs GLUCOSE METER, POINT OF CARE Collection Time: 08/25/24 7:59 AM Result Value Ref Range GLUCOSE - POCT 152 (H) 70 - 120 mg/dL GLUCOSE METER, POINT OF CARE Collection Time: 08/25/24 11:30 AM Result Value Ref Range GLUCOSE - POCT 291 (H) 70 - 120 mg/dL GLUCOSE METER, POINT OF CARE Collection Time: 08/25/24 3:39 PM Result Value Ref Range GLUCOSE - POCT 70 70 - 120 mg/dL GLUCOSE METER, POINT OF CARE Collection Time: 08/25/24 4:01 PM Result Value Ref Range GLUCOSE - POCT 75 70 - 120 mg/dL } Recent Cultures (2 Weeks) 08/22/2024 5:13 PM BLOOD CULTURE GROWTH No growth to date No growth to date Assessment and Plan IMPRESSION : Principal Problem: Rigors Active Problems: ESRD (end stage renal disease) on dialysis (HCC) HIV disease (HCC) Iron deficiency anemia due to chronic blood loss Fever Resolved Problems: * No resolved hospital problems. * DIFFERENTIAL AND PLAN: Rigors concerning for dialysis catheter infection - appreciate ID input-->OPAT note in place. - cultures no growth HIV - continue current regimen Iron deficiency - oral iron ESRD on HD - dialysis tomorrow and discharge therafter! DM2 - basal bolus sliding scale Other home medications as directed. [START ON 08/26/2024] Drug Level Check - Vancomycin Random hEParin 1000 UNIT/ML inj (dialysis orders only) midodrine (Proamatine) tab 5 mg Acetaminophen (Tylenol) tab 650 mg aspirin chew tab 81 mg atorvaSTATin (Lipitor) tab 40 mg Polyethylene Glycol 3350 (Miralax) oral powder 17 g AND senna-docusate (Senokot-S) 1 Tablet AND Bisacodyl (Dulcolax) tab 5 mg AND Bisacodyl (Dulcolax) supp 10 mg calcium CARBonate (Tums E-X) tab CHEW 750 mg chlorhexidine gluconate cloth 2 % pad cholecalciferol (VIT D3) (Vitamin D3) tab 1,000 Units dextrose 50% inj 25 mL dextrose 50% inj 50 mL Dolutegravir (Tivicay) tab 50 mg AND Rilpivirine (Edurant) tab 25 mg Enoxaparin (Lovenox) inj 30 mg FLUoxetine (PROzac) cap 20 mg glucagon (Glucagen) inj 1 mg Glucose (Glutose 15) 40 % gel 15 g of glucose Glucose (Glutose 15) 40 % gel 30 g of glucose glucose chew tab 16 g insulin aspart (NovoLOG) inj 10 Units insulin aspart (NovoLOG) inj Insulin Glargine (Lantus) inj 22 Units levothyroxine (Levoxyl) tab 25 mcg melatonin tab 3 mg Menthol ([place]) cough drop 1 Lozenge metoprolol succinate XL (toPROL XL) tab 25 mg ondansetron (Zofran) inj 4 mg Oral Hygiene: Mouth Swab with dentifrice pantoprazole (Protonix) tab 40 mg prasugrel (Effient) tab 10 mg sodium chloride 0.9 % flush central line 10 mL sodium chloride 0.9 % flush/inj 3 mL vancomycin per pharmacy order Orders Placed This Encounter Procedures Heart Healthy Consistent Carbohydrate Diet : Sodium: 2 gm --- Number of Choices: 4 (60 grams) --- Fluid Restriction (ml): None PHARMACOLOGIC VTE PROPHYLAXIS: Enoxaparin hEParin CODE STATUS: No Code EXPECTED DISCHARGE DATE: 08/26/2024 I spent a total of 51minutes coordinating, documenting, and providing care for this patient excluding time spent in the performance of separately billed services or time spent by another provider/QHP. * Pierre Lara MD - 08/25/2024 1:35 PM EST PROGRESS NOTE - Nephrology [facility] [address] Name: Tad Silvestre Location: [facility] [id number] Date: 08/25/2024 SUBJECTIVE: Seen for ESRD. He feels better and wants to go home. No shortness of breath. He had dialysis yesterday. Review of systems: All systems were reviewed and negative except as noted in above CURRENT HOSPITAL MEDICATIONS: Current Facility-Administered Medications Medication Dose Route Frequency Provider [START ON 08/26/2024] Drug Level Check - Vancomycin Random Does Not Apply Once Timed Lab 2hrs Angelica Hall MD, PhD hEParin 1000 UNIT/ML inj (dialysis orders only) Intravenous On dialysis Pierre Lara MD midodrine (Proamatine) tab 5 mg 5 mg Oral TID [place] MD Acetaminophen (Tylenol) tab 650 mg 650 mg Oral Q6H PRN Jaycob Horton MD aspirin chew tab 81 mg 81 mg Oral Daily(AM) Jaycob Horton MD atorvaSTATin (Lipitor) tab 40 mg 40 mg Oral Q 1700 Jaycob Horton MD Polyethylene Glycol 3350 (Miralax) oral powder 17 g 1 Packet Oral Daily PRN Jaycob Horton MD And senna-docusate (Senokot-S) 1 Tablet 1 Tablet Oral BID PRN Jaycob Horton MD And Bisacodyl (Dulcolax) tab 5 mg 5 mg Oral Daily PRN Jaycob Horton MD And Bisacodyl (Dulcolax) supp 10 mg 10 mg Rectal Daily PRN Jaycob Horton MD calcium CARBonate (Tums E-X) tab CHEW 750 mg 750 mg Oral BID PRN Jaycob Horton MD chlorhexidine gluconate cloth 2 % pad External Daily 1000 Jaycob Horton MD cholecalciferol (VIT D3) (Vitamin D3) tab 1,000 Units 1,000 Units Oral Daily(AM) Jaycob Horton MD dextrose 50% inj 25 mL 25 mL IV Push PRN Jaycob Horton MD dextrose 50% inj 50 mL 50 mL IV Push PRN Jaycob Horton MD Dolutegravir (Tivicay) tab 50 mg 50 mg Oral Daily(AM) Jaycob Horton MD And Rilpivirine (Edurant) tab 25 mg 25 mg Oral Daily(AM) Jaycob Horton MD Enoxaparin (Lovenox) inj 30 mg 30 mg Subcutaneous Daily(AM) Jaycob Horton MD FLUoxetine (PROzac) cap 20 mg 20 mg Oral Daily(AM) Jaycob Horton MD glucagon (Glucagen) inj 1 mg 1 mg Intramuscular PRN Jaycob Horton MD Glucose (Glutose 15) 40 % gel 15 g of glucose 15 g of glucose Oral PRN Jaycob Horton MD Glucose (Glutose 15) 40 % gel 30 g of glucose 30 g of glucose Oral PRN Jaycob Horton MD glucose chew tab 16 g 16 g Oral PRN Jaycob Horton MD insulin aspart (NovoLOG) inj 10 Units 10 Units Subcutaneous With meals Jaycob Horton MD insulin aspart (NovoLOG) inj Subcutaneous With Meals and HS Jaycob Horton MD Insulin Glargine (Lantus) inj 22 Units 22 Units Subcutaneous Daily 0900 Jaycob Horton MD levothyroxine (Levoxyl) tab 25 mcg 25 mcg Oral Daily 0630 Jaycob Horton MD melatonin tab 3 mg 3 mg Oral HS PRN Jaycob Horton MD Menthol ([place]) cough drop 1 Lozenge 1 Lozenge Oral Q2H PRN Jaycob Horton MD metoprolol succinate XL (toPROL XL) tab 25 mg 25 mg Oral Daily(AM) Jaycob Horton MD ondansetron (Zofran) inj 4 mg 4 mg IV Push Q6H PRN Jaycob Horton MD Oral Hygiene: Mouth Swab with dentifrice Oral QID(AM/NOON/PM/HS) Jaycob Horton MD pantoprazole (Protonix) tab 40 mg 40 mg Oral Daily(AM) Jaycob Horton MD prasugrel (Effient) tab 10 mg 10 mg Oral Daily(AM) Jaycob Horton MD sodium chloride 0.9 % flush central line 10 mL 10 mL IV Push Q8H Jaycob Horton MD sodium chloride 0.9 % flush/inj 3 mL 3 mL IV Push PRN Jaycob Horton MD vancomycin per pharmacy order Does Not Apply Per Pharmacy Jaycob Horton MD OBJECTIVE: Most Recent Vital Signs: Intake/Output Summary (Last 24 hours) at 08/25/2024 1335 Last data filed at 08/25/2024 1231 Gross per 24 hour Intake 2407.67 ml Output 150 ml Net 2257.67 ml Vital Signs last 24 Hours: Systolic BP: Most Recent Systolic BP Av.9 mmHg Min: 112 mmHg Max: 161 mmHg Temperature: Most Recent Temperature Av.4 C Min: 36.11 C Max: 37 C Pulse: Pulse Av.3 Min: 54 Max: 74 Respirations: Resp Av Min: 12 Max: 18 SpO2: SpO2 Av.3 % Min: 95 % Max: 100 % PHYSICAL EXAM: GENERAL: Alert, in no acute distress. EYES: PERRL, conjunctivae anicteric. ENT: Mucous membranes moist, oropharynx clear. NECK: Supple, no JVD. LYMPH: No cervical or supraclavicular lymphadenopathy. LUNGS: Clear to auscultation bilaterally, no respiratory distress. CARDIAC: Regular rate and rhythm, normal S1/S2, no murmurs, rubs, or gallops. ABDOMEN: Soft, non-tender, non-distended, bowel sounds present. EXT/MSK: No clubbing, cyanosis, or edema. SKIN: No rash, no jaundice. NEURO: No tremor, no asterixis. LABS: Lab Results Component Value Date/Time BUN - [facility] 18 08/25/2024 06:45 AM BUN - [facility] 35 (H) 08/24/2024 06:26 AM BUN - [facility] 36 (H) 08/23/2024 06:25 AM BUN - [facility] 38 (H) 08/22/2024 04:12 PM BUN - [facility] 27 (H) 08/21/2024 12:01 PM BUN - [facility] 48 (H) 10/02/2020 03:48 PM BUN - [facility] 52 (H) 07/01/2020 01:03 PM BUN - [facility] 18 06/17/2012 06:08 AM BUN - [facility] 16 06/16/2012 05:08 AM BUN - [facility] 14 06/15/2012 05:32 AM BUN - [facility] 12 06/14/2012 06:19 PM Lab Results Component Value Date/Time CREATININE - [facility] 3.2 (H) 08/25/2024 06:45 AM CREATININE - [facility] 3.9 (H) 08/24/2024 06:26 AM CREATININE - [facility] 3.8 (H) 08/23/2024 06:25 AM CREATININE - [facility] 3.6 (H) 08/22/2024 04:12 PM CREATININE - [facility] 2.7 (H) 08/21/2024 12:01 PM CREATININE - [facility] 3.37 (H) 10/02/2020 03:48 PM CREATININE - [facility] 3.31 (H) 07/01/2020 01:03 PM CREATININE - [facility] 0.9 06/17/2012 06:08 AM CREATININE - [facility] 0.8 06/16/2012 05:08 AM CREATININE - [facility] 0.8 06/15/2012 05:32 AM CREATININE - [facility] 0.9 06/14/2012 06:19 PM CREATININE, RANDOM URINE - [facility] 54 04/11/2024 10:37 AM CREATININE, RANDOM URINE - [facility] 42 05/07/2023 12:16 PM CREATININE, RANDOM URINE - [facility] 37 08/12/2022 03:11 PM CREATININE, RANDOM URINE - [facility] 50 05/07/2022 04:27 PM CREATININE, RANDOM URINE - [facility] 36 01/13/2022 11:29 AM No components found for: "E GLOM FILT RATE" Lab Results Component Value Date/Time POTASSIUM - [facility] 4.6 08/25/2024 06:45 AM POTASSIUM - [facility] 4.6 08/24/2024 06:26 AM POTASSIUM - [facility] 4.0 08/23/2024 06:25 AM POTASSIUM - [facility] 4.8 06/26/2024 09:58 AM POTASSIUM - [facility] 3.9 10/02/2020 03:48 PM POTASSIUM - [facility] 4.4 07/01/2020 01:03 PM POTASSIUM - [facility] 3.2 (L) 06/17/2012 06:08 AM POTASSIUM - [facility] 3.5 06/16/2012 05:08 AM POTASSIUM - [facility] 3.6 06/15/2012 05:32 AM Lab Results Component Value Date/Time HGB 10.7 (L) 08/25/2024 06:45 AM HGB 11.5 (L) 08/24/2024 06:26 AM HGB 9.3 (L) 08/23/2024 06:25 AM HGB 10.4 (L) 08/22/2024 06:21 PM HGB 10.7 (L) 08/22/2024 03:34 PM HGB 13.0 (L) 06/17/2012 06:08 AM HGB 13.3 (L) 06/16/2012 05:08 AM HGB 13.8 (L) 06/15/2012 05:32 AM HGB 14.5 06/14/2012 06:19 PM No results found for: "MICROALB" No components found for: "PROTCREATRAT" Lab Results Component Value Date/Time PTH - [facility] 400 (H) 04/11/2024 10:31 AM Lab Results Component Value Date/Time PHOSPHORUS - [facility] 2.2 (L) 04/11/2024 10:31 AM PHOSPHORUS-OUTSIDE LAB 4.6 (H) 04/28/2021 04:05 PM IMPRESSION: This is a 69-year-old male with a past medical history of HIV(viral load undetectable, CD4 599), type 2 diabetes(last A1c 8.6), end-stage renal disease on dialysis TTS at [facility], depression, GERD with a history of duodenal ulcer, essential hypertension, history of [place] who was admitted after developing rigors during recovery following exchange of hemodialysis catheter. Plan: ESRD: Patient is on dialysis Wednesday. Last outpatient dialysis was on Wednesday. Patient tolerated dialysis well . From renal standpoint patient can be discharged to continue dialysis outpatient tomorrow Wednesday. He has a left forearm AV fistula with a good bruit. We should attempt to 1 needle in the AV fistula next dialysis treatment. Sepsis: Likely due to bacteremia. Cultures are negative so far. Agree with discharging on vancomycin 1 g Wednesday with dialysis. Appreciate consult; will follow with you. This note was generated with the help of voice recognition software. Please excuse for errors. * Pierre Lara MD - 08/24/2024 12:56 PM EST DIALYSIS PROGRESS NOTE - Nephrology [facility] [address] Name: Tad Silvestre Location: [facility] [id number] Date: 08/24/2024 Time: 12:56 PM SUBJECTIVE: Seen for ESRD. No shortness of breath but continues to have intermittent chills. He hasa left forearm AV fistula placed on 06/26/2024 HEMODIALYSIS: SINGLE VISIT The patient was seen during the hemodialysis procedure. OBJECTIVE: Most Recent Vital Signs: BP: 123 mmHg/84 mmHg (08/24/24 1245) Pulse: 60 (08/24/24 1245) Resp: 18 (08/24/2445) Temp: 36.72 C (08/24/2445) Temp Summary: Temp Min: 36 C (96.8 F) Max: 36.7 C (98.1 F) SpO2: 97 % (08/24/2445) O2 flow rate: 2 L/MIN (08/23/24 0245) Supplemental O2 Delivery: Room Air, None (08/24/24 3529) Vital Signs last 24 Hours: Systolic BP: @SBPMAXR(24)@Temperature: Temp Av.3 C (97.3 F) Min: 36 C (96.8 F) Max: 36.7 C (98.1 F) Pulse: Pulse Av.9 Min: 54 Max: 71 Respirations: Resp Av.3 Min: 16 Max: 18 SpO2: SpO2 Av.5 % Min: 95 % Max: 98 % I/O Brief: Intake/Output Summary (Last 24 hours) at 08/24/2024 1256 Last data filed at 08/24/2024 1200 Gross per 24 hour Intake 800 ml Output 1650 ml Net -850 ml PHYSICAL EXAM: GENERAL: Alert, in no acute distress. EYES: PERRL, conjunctivae anicteric. ENT: Mucous membranes moist, oropharynx clear. NECK: Supple, no JVD. LYMPH: No cervical or supraclavicular lymphadenopathy. LUNGS: Clear to auscultation bilaterally, no respiratory distress. CARDIAC: Regular rate and rhythm, normal S1/S2, no murmurs, rubs, or gallops. ABDOMEN: Soft, non-tender, non-distended, bowel sounds present. EXT/MSK: No clubbing, cyanosis, or edema. SKIN: No rash, no jaundice. NEURO: No tremor, no asterixis. Vascular access: LABS Lab Results Component Value Date/Time BUN - [facility] 35 (H) 08/24/2024 06:26 AM BUN - [facility] 36 (H) 08/23/2024 06:25 AM BUN - [facility] 38 (H) 08/22/2024 04:12 PM BUN - [facility] 27 (H) 08/21/2024 12:01 PM BUN - [facility] 17 04/11/2024 10:31 AM BUN - [facility] 48 (H) 10/02/2020 03:48 PM BUN - [facility] 52 (H) 07/01/2020 01:03 PM BUN - [facility] 18 06/17/2012 06:08 AM BUN - [facility] 16 06/16/2012 05:08 AM BUN - [facility] 14 06/15/2012 05:32 AM BUN - [facility] 12 06/14/2012 06:19 PM Lab Results Component Value Date/Time CREATININE - [facility] 3.9 (H) 08/24/2024 06:26 AM CREATININE - [facility] 3.8 (H) 08/23/2024 06:25 AM CREATININE - [facility] 3.6 (H) 08/22/2024 04:12 PM CREATININE - [facility] 2.7 (H) 08/21/2024 12:01 PM CREATININE - [facility] 2.4 (H) 04/11/2024 10:31 AM CREATININE - [facility] 3.37 (H) 10/02/2020 03:48 PM CREATININE - [facility] 3.31 (H) 07/01/2020 01:03 PM CREATININE - [facility] 0.9 06/17/2012 06:08 AM CREATININE - [facility] 0.8 06/16/2012 05:08 AM CREATININE - [facility] 0.8 06/15/2012 05:32 AM CREATININE - [facility] 0.9 06/14/2012 06:19 PM CREATININE, RANDOM URINE - [facility] 54 04/11/2024 10:37 AM CREATININE, RANDOM URINE - [facility] 42 05/07/2023 12:16 PM CREATININE, RANDOM URINE - [facility] 37 08/12/2022 03:11 PM CREATININE, RANDOM URINE - [facility] 50 05/07/2022 04:27 PM CREATININE, RANDOM URINE - [facility] 36 01/13/2022 11:29 AM No components found for: "E GLOM FILT RATE" Lab Results Component Value Date/Time POTASSIUM - [facility] 4.6 08/24/2024 06:26 AM POTASSIUM - [facility] 4.0 08/23/2024 06:25 AM POTASSIUM - [facility] 3.8 08/22/2024 04:12 PM POTASSIUM - [facility] 4.8 06/26/2024 09:58 AM POTASSIUM - [facility] 3.9 10/02/2020 03:48 PM POTASSIUM - [facility] 4.4 07/01/2020 01:03 PM POTASSIUM - [facility] 3.2 (L) 06/17/2012 06:08 AM POTASSIUM - [facility] 3.5 06/16/2012 05:08 AM POTASSIUM - [facility] 3.6 06/15/2012 05:32 AM Lab Results Component Value Date/Time HGB 11.5 (L) 08/24/2024 06:26 AM HGB 9.3 (L) 08/23/2024 06:25 AM HGB 10.4 (L) 08/22/2024 06:21 PM HGB 10.7 (L) 08/22/2024 03:34 PM HGB 13.0 (L) 04/11/2024 10:31 AM HGB 13.0 (L) 06/17/2012 06:08 AM HGB 13.3 (L) 06/16/2012 05:08 AM HGB 13.8 (L) 06/15/2012 05:32 AM HGB 14.5 06/14/2012 06:19 PM No results found for: "MICROALB" No components found for: "PROTCREATRAT" Lab Results Component Value Date/Time PTH - [facility] 400 (H) 04/11/2024 10:31 AM Lab Results Component Value Date/Time PHOSPHORUS - [facility] 2.2 (L) 04/11/2024 10:31 AM [facility] 4.6 (H) 04/28/2021 04:05 PM IMPRESSION: This is a 69-year-old male with a past medical history of HIV(viral load undetectable, CD4 599), type 2 diabetes(last A1c 8.6), end-stage renal disease on dialysis TTS at [facility], depression, GERD with a history of duodenal ulcer, essential hypertension, history of [place] who was admitted after developing rigors during recovery following exchange of hemodialysis catheter. Plan: ESRD: Patient is on dialysis Wednesday. Last outpatient dialysis was on Wednesday. Patient is tolerating dialysis well today. He is planned for 3- 1/2 hours target UF 1L. He has a left forearm AV fistula with a good bruit. We should attempt to 1 need a next dialysis treatment. Sepsis: Likely due to bacteremia. Cultures are pending. Continue vancomycin and Zosyn dosed for GFRless than 15 mL/minute This note was generated with the help of voice recognition software. Please excuse for errors. * Elisabeth Malik MD - 08/24/2024 12:17 PM EST PROGRESS NOTE - Infectious Disease [facility] [address] Name: Tad Silvestre Location: [facility] [id number] Date: 08/24/2024 Time: 12:17 PM SUBJECTIVE: Mr. Reyes was seen and examined today at dialysis room. He had no specific complaints and no reported fever or chills since the night of 08/22. OBJECTIVE: Most Recent Vital Signs: BP: 129 mmHg/74 mmHg (08/24/24 1215) Pulse: 54 (08/24/24 1215) Resp: 18 (08/24/24944) Temp: 36.72 C (08/24/24944) Temp Summary: Temp Min: 36 C (96.8 F) Max: 36.7 C (98.1 F) SpO2: 97 % (08/24/24944) O2 flow rate: 2 L/MIN (08/23/24 0245) Supplemental O2 Delivery: Room Air, None (08/24/24944) Vital Signs Last 24 Hours: Systolic BP: Most Recent Systolic BP Av mmHg Min: 84 mmHg Max: 152 mmHg Temperature: Most Recent Temperature Av.3 C Min: 36 C Max: 36.72 C Pulse: Pulse Av.3 Min: 54 Max: 71 Respirations: Resp Av.3 Min: 16 Max: 18 SpO2: SpO2 Av.5 % Min: 95 % Max: 98 % General: Lying in bed comfortably and in no acute respiratory or pain distress. Cardiac: Regular heart rate with no murmurs, gallops, or rubs. Both, S1 and S2 are heard. Respiratory: The chest wall is symmetric and without deformity. Good bilateral air entry with no wheezes or crackles. Abdominal: Abdomen is soft, not distended with no tenderness on palpation. Genital/Rectal: No Rodriguez in place. Extremities/Skin: Rt upper chest dialysis catheter with some blood below the dressing. No redness or drainage. Neurological: The patient is awake, alert and oriented with normal speech. Psychiatric: Appropriate mood and affect. Good judgement and insight. LABS: Labs reviewed as indicated below. MICROBIOLOGY DATA: 08/22: 2 sets of blood culture negative to date 08/22: Absolute CD4 163 IMAGING: No recent relevant imaging. IMPRESSION: 1. Fever - with no known etiology at this point (last fever documented at around 11:00 p.m. on 08/22) 2. HIV/AIDS - last CD4 count from yesterday 08/22 was 163 3. Hx of ESRD - on hemodialysis thru tunneled catheter 4. Hx of multiple malfunctioning tunneled dialysis catheters - last exchanged on 08/22 RECOMMENDATIONS: - I would recommend sending for RVP (done by me). - please discontinue IV piperacillin tazobactam and keep only on IV vancomycin to be dosed after dialysis on dialysis days. - if by tomorrow, he remained afebrile and the blood culture sent on 08/22 remains negative, I would recommend sending out on IV vancomycin to be given after dialysis on dialysis days for a total duration of 14 days with anticipated end date of 09/05/2024. - please continue on dolutegravir and Rilpivirine while inpatient. Patient to restart Juluca at home after discharge. * Angelica Hall MD, PhD - 08/24/2024 7:14 AM EST Images from the original note were not included. [facility] [id number]/D INTERVAL HISTORY: 69-year-old male with a past medical history of HIV(viral load undetectable, CD4 163), type 2 diabetes(last A1c 8.6), end-stage renal disease on dialysis TTS with permacath, depression, GERD with a history of duodenal ulcer, essential hypertension, history of [place] who was admitted after developing rigors during recovery following exchange of hemodialysis catheter. Interval history: - seen by ID concern for catheter infection, changing over wire - continue vancc and zosyn - continue HIV med - ID to see in person today Subjective: Patient denies rigors overnight. He explained the history of presentation- recent catheter change and frequent oozing at the site. Inform him his CD4 count has dropped. He confirmed understanding. Rigors on off at home- worst rigors were post op in PACU. He has a fistula that is maturing in left wrist. Objective Physical Exam Most Recent Vital Signs: BP: 129 mmHg/63 mmHg (08/23/242350) Pulse: 71 (08/23/242350) Resp: 16 (08/23/242350) Temp: 36.39 C (08/23/242350) Temp Summary: Temp Min: 36 C (96.8 F) Max: 37.2 C (99 F) SpO2: 95 % (08/23/242350) O2 flow rate: 2 L/MIN (08/23/24 0245) Supplemental O2 Delivery: Room Air, None (08/23/242350) Peripheral Line Posterior;Right Wrist 22 Gauge (Active) Number of days: 1 Dialysis Catheter Double Lumen Right Subclavian (Active) Number of days: 2 Hemodialysis Arteriovenous Graft Left Forearm (Active) Number of days: 2 BP 131/73 | Pulse 72 | Temp 36.4 C (97.5 F) (Temporal Artery) | Resp 18 | Ht 1.753 m (5' 9.02")| Wt 77.1 kg (170 lb) | SpO2 96% | BMI 25.09 kg/m | BSA 1.94 m Vitals reviewed over last 24 hours General: well appearing, lying comfortably in bed in no apparent distress HEEN: EOMI, no scleral icterus, ophx clear, NECK: no stridor, no JVD PULM: CTAB, no wheezes- anterior chest dialysis perma cath- dried blood under bandage otherwise in tact, no drainage CVS: RRR, no mumurs, no rubs, no gallops, cap refil<2sec ABD: soft, NT, ND +BS, no rebound EXT: WWP, no peripheral edema, no clubbing, LUE +thrill Neuro:alert and oriented x3, CN 2-12 grossly intact, strength grossly intact Psych: normal mood and affect STUDIES: Encounter Orders Labs and other studies reviewed with pertinent findings noted below: Recent Results (from the past 24 hours) GLUCOSE METER, POINT OF CARE Collection Time: 08/23/24 7:48 AM Result Value Ref Range GLUCOSE - POCT 148 (H) 70 - 120 mg/dL GLUCOSE METER, POINT OF CARE Collection Time: 08/23/24 11:30 AM Result Value Ref Range GLUCOSE - POCT 186 (H) 70 - 120 mg/dL GLUCOSE METER, POINT OF CARE Collection Time: 08/23/24 4:34 PM Result Value Ref Range GLUCOSE - POCT 86 70 - 120 mg/dL GLUCOSE METER, POINT OF CARE Collection Time: 08/23/24 6:41 PM Result Value Ref Range GLUCOSE - POCT 151 (H) 70 - 120 mg/dL GLUCOSE METER, POINT OF CARE Collection Time: 08/23/24 11:50 PM Result Value Ref Range GLUCOSE - POCT 179 (H) 70 - 120 mg/dL CBC Collection Time: 08/24/24 6:26 AM Result Value Ref Range WBC 6.68 4.00 - 10.80 K/uL RBC 4.07 4.50 - 5.25 M/uL HGB 11.5 (L) 14.0 - 16.8 g/dL HCT 35.8 (L) 40.0 - 48.4 % MCV 88.0 82.0 - 99.5 fL MCH 28.3 27.0 - 34.0 pg MCHC 32.1 32.0 - 36.0 g/dL RDW 13.7 11.5 - 15.5 % PLT 197 140 - 400 K/uL MPV 9.3 6.6 - 11.1 fL nRBCs 0 <=0 /100 WBCs } Recent Cultures (2 Weeks) 08/22/2024 5:13 PM BLOOD CULTURE GROWTH No growth to date No growth to date Assessment and Plan IMPRESSION : Principal Problem: Rigors Active Problems: ESRD (end stage renal disease) on dialysis (HCC) HIV disease ([facility]) Resolved Problems: * No resolved hospital problems. * DIFFERENTIAL AND PLAN: Rigors concerning for dialysis catheter infection - appreciate ID input - cultures no growth - dc zosyn, continue on vanc - monitor fever curve - follow up RVP HIV - continue current regimen Iron deficiency - oral iron ESRD on HD - dialysis today DM2 - basal bolus sliding scale Other home medications as directed. [START ON 08/26/2024] Drug Level Check - Vancomycin Random hEParin 1000 UNIT/ML inj (dialysis orders only) Vancomycin (Vancocin) 1000 mg in NSS 250 mL ivpb LOCKED DOSE midodrine (Proamatine) tab 5 mg Acetaminophen (Tylenol) tab 650 mg aspirin chew tab 81 mg atorvaSTATin (Lipitor) tab 40 mg Polyethylene Glycol 3350 (Miralax) oral powder 17 g AND senna-docusate (Senokot-S) 1 Tablet AND [START ON 08/25/2024] Bisacodyl (Dulcolax) tab 5 mg AND [START ON 08/25/2024] Bisacodyl (Dulcolax) supp 10 mg calcium CARBonate (Tums E-X) tab CHEW 750 mg chlorhexidine gluconate cloth 2 % pad cholecalciferol (VIT D3) (Vitamin D3) tab 1,000 Units dextrose 50% inj 25 mL dextrose 50% inj 50 mL Dolutegravir (Tivicay) tab 50 mg AND Rilpivirine (Edurant) tab 25 mg Enoxaparin (Lovenox) inj 30 mg FLUoxetine (PROzac) cap 20 mg glucagon (Glucagen) inj 1 mg Glucose (Glutose 15) 40 % gel 15 g of glucose Glucose (Glutose 15) 40 % gel 30 g of glucose glucose chew tab 16 g insulin aspart (NovoLOG) inj 10 Units insulin aspart (NovoLOG) inj Insulin Glargine (Lantus) inj 22 Units levothyroxine (Levoxyl) tab 25 mcg melatonin tab 3 mg Menthol ([place]) cough drop 1 Lozenge metoprolol succinate XL (toPROL XL) tab 25 mg NSS infusion ondansetron (Zofran) inj 4 mg Oral Hygiene: Mouth Swab with dentifrice pantoprazole (Protonix) tab 40 mg prasugrel (Effient) tab 10 mg sodium chloride 0.9 % flush central line 10 mL sodium chloride 0.9 % flush/inj 3 mL vancomycin per pharmacy order Orders Placed This Encounter Procedures Heart Healthy Consistent Carbohydrate Diet : Sodium: 2 gm --- Number of Choices: 4 (60 grams) --- Fluid Restriction (ml): None PHARMACOLOGIC VTE PROPHYLAXIS: Enoxaparin CODE STATUS: No Code EXPECTED DISCHARGE DATE: 08/25/2024 I spent a total of 55 minutes coordinating, documenting, and providing care for this patient excluding time spent in the performance of separately billed services or time spent by another provider/QHP. * [place] MD - 08/23/2024 4:32 PM EST Images from the original note were not included. [facility] [id number]/D 69-year-old male with a past medical history of HIV(viral load undetectable, CD4 599), type 2 diabetes(last A1c 8.6), end-stage renal disease on dialysis, depression, GERD with a history of duodenal ulcer, essential hypertension, history of [place] who was direct admitted by IR due to rising concerns ofinfection in setting of PD cath and rigors. CD 4 = 163 INTERVAL HISTORY: Patient feels weak. Has intermittent chills. Nurses paged later in the day as patient draining fromHD catheter and erythema around site. His BP has been waxing and waning. Objective Physical Exam Most Recent Vital Signs: BP: 96 mmHg/62 mmHg (08/23/24 1544) Pulse: 67 (08/23/24 1456) Resp: 18 (08/23/24 1456) Temp: 36.11 C (08/23/24 1456) Temp Summary: Temp Min: 36.1 C (97 F) Max: 38.5 C (101.3 F) SpO2: 98 % (08/23/24 1456) O2 flow rate: 2 L/MIN (08/23/24 0245) Supplemental O2 Delivery: Room Air, None (08/23/24 1456) Physical Exam Constitutional: Appearance: He is not ill-appearing or toxic-appearing. Cardiovascular: Rate and Rhythm: Normal rate. Heart sounds: No friction rub. No gallop. Abdominal: General: There is no distension. Tenderness: There is no guarding. Skin: Comments: On exam there appears to be betadine residue around right side of chest near catheter, noclear erythema. Not warm to touch. Non tender. Catheter does have some dry blood Neurological: Mental Status: He is oriented to person, place, and time. Peripheral Line Right 20 Gauge (Active) Number of days: 1 Dialysis Catheter Double Lumen Right Subclavian (Active) Number of days: 1 Hemodialysis Arteriovenous Graft Left Forearm (Active) Number of days: 1 STUDIES: Encounter Orders Labs and other studies reviewed with pertinent findings noted below: Hematology Lab results within last 7 days (see chart for full results) Units 08/23/24 0625 08/22/24 1821 08/22/24 1534 HGB g/dL 9.3* 10.4* 10.7* HCT % 28.4* 31.4* 31.7* WBC K/uL 6.04 5.40 3.50* PLT K/uL 108* 124* 130* MCV fL 87.1 87.0 85.7 Lab results within last 7 days (see chart for full results) Units 08/22/24 1612 INR 1.2 Chemistry Lab results within last 7 days (see chart for full results) Units 08/23/24 0625 08/22/24 1612 08/21/24 1201 SODIUM mmol/L 137 132* 137 POTASSIUM mmol/L 4.0 3.8 3.7 CHLORIDE mmol/L 105 96* 98 CO2 mmol/L 20* 23 27 BUN mg/dL 36* 38* 27* CREATININE mg/dL 3.8* 3.6* 2.7* GLUCOSE mg/dL 153* 278* 184* Lab results within last 7 days (see chart for full results) Units 08/22/24 1534 Hemoglobin A1C % 11.5* Lab results within last 7 days (see chart for full results) Units 08/23/24 0625 08/22/24 1612 08/21/24 1201 Magnesium mg/dL -- 2.0 -- CALCIUM mg/dL 8.2* 8.4 7.9* Lab results within last 7 days (see chart for full results) Units 08/22/24 18208/22/24 1612 Lactate mmol/L 3.2* 1.2 Liver Function Lab results within last 7 days (see chart for full results) Units 08/23/24 0625 08/22/24 1612 Protein g/dL 5.4* 6.2 Bilirubin, Total mg/dL 0.5 0.5 Alkaline Phosphatase U/L 97 123 AST U/L 37 24 ALT U/L 27 26 Inflammatory Markers Lab results within last 7 days (see chart for full results) Units 08/22/24 1534 ESR mm/hour 14 Infectious Disease Recent Cultures (2 Weeks) 08/22/2024 5:13 PM BLOOD CULTURE GROWTH No growth to date No growth to date No results found for the last 90 days. Imaging XR CHEST 2 VIEWS Result Date: 08/22/2024 IMPRESSION: No acute finding. THIS DOCUMENT HAS BEEN ELECTRONICALLY SIGNED BY KYLEE PEREZ MD IR INTERVENTIONAL RADIOLOGY PROCEDURE IN OR Result Date: 08/22/2024 IMPRESSION: Successful exchange of a tunneled dialysis catheter. Assessment and Plan IMPRESSION : Principal Problem: Rigors Active Problems: ESRD (end stage renal disease) on dialysis (HCC) Resolved Problems: * No resolved hospital problems. * DIFFERENTIAL AND PLAN: Follow Cultures. Blood Cx NGTD. Appreciate ID input. Patient with HIV. CD4 163 yet was recently >500 who has low concerns for opportunistic infection at this point. They will see patient in person tomorrow. Continue Vanc/Zosyn for now. Await further ID recs. Appreciate nephro input. HD tomorrow. He is //Wed Will give IVF. Bolus 500 cc once. Will give midodrine as he is going for HD tomorrow. Will hold iron infusion for now until blood cultures negative for 48 hours. Follow AM labs Q6H glucose check for today Continue THREAD SEPARATOR meds ISS PHARMACOLOGIC VTE PROPHYLAXIS: Enoxaparin CODE STATUS: No Code EXPECTED DISCHARGE DATE: 08/25/2024 I spent a total of 50 minutes coordinating, documenting, and providing care for this patient excluding time spent in the performance of separately billed services or time spent by another provider/QHP. * Damion Barber MD - 08/22/2024 1:33 PM EST [facility] [id number] OUTPATIENT SURGERY DISCHARGE SUMMARY NOTE Name: Tad Silvestre Location: [facility]/[place] Date: 08/22/2024 Time: 1:33 PM Surgery Date: 08/22/2024 Procedure: REPLACEMENT COMPLETE TUNNELED CENTRAL CATHETER NO PORT Right Surgeon: Damion Barber MD Discharge Diagnosis: hemocath exchange After examination of this patient, I have determined he is ready for discharge to home when the patient meets criteria. Discharge instructions were given to the patient. documented in this encounter H&P Notes * Jaycob Horton MD - 08/22/2024 3:26 PM EST Images from the original note were not included. [facility] PRESENTING PROBLEM: Rigors HPI: Tariq is a 69-year-old male with a past medical history of HIV(viral load undetectable, CD4 599), type 2 diabetes(last A1c 8.6), end-stage renal disease on dialysis, depression, GERD with a history of duodenal ulcer, essential hypertension, history of [place] who presented to the hospital today for a same day surgery for exchange of hemodialysis catheter. Has had issues with the hemodialysis catheter of and has had it changed for time so far Procedure was uneventful but soon after the procedure patient developed an episode of rigors. On further questioning patient shared with us that he has been having rigors on and off-5-6 episodes in total over the past month During each of these spells, he suddenly feels cold and has some difficulty breathing During the episode that occurred after the procedure, patient felt cold and short of breath. Saturation dropped into the mid 80s and he was started on 3 L oxygen and this helped bring his oxygen saturation back into the mid 90s The surgeon who did the proceduree recommended we admit the patient for the workup of the rigors and as the hospitalist team we do agree with this plan. Subjective Patient's past history, medications, and allergies were reviewed. Objective Physical Exam Most Recent Vital Signs: BP: 139 mmHg/83 mmHg (08/22/241514) Pulse: 95 (08/22/241514) Resp: 18 (08/22/241514) Temp: 37.28 C (08/22/241514) Temp Summary: Temp Min: 36 C (96.8 F) Max: 37.6 C (99.7 F) SpO2: 94 % (08/22/241514) O2 flow rate: 3 L/MIN (08/22/241514) Supplemental O2 Delivery: Nasal Cannula (08/22/241514) Constitutional: no acute distress HEENT: normal: normocephalic, atraumatic; no masses, tenderness, or adenopathy Eyes: sclera and conjunctiva normal Neck: supple, normal range of motion Chest: normal respiratory effort, lungs clear to auscultation and percussion Abdomen: normal: soft, bowel sounds normal, no masses, tenderness or organomegaly Extremities: no clubbing, cyanosis, or edema, otherwise grossly normal, warm, and dry Peripheral Line Right 20 Gauge (Active) Number of days: 0 Dialysis Catheter Double Lumen Right Subclavian (Active) Number of days: 0 STUDIES: Encounter Orders Labs and other studies reviewed with pertinent findings noted below: No imaging done Labs not significant Assessment and Plan IMPRESSION: Active Problems: * No active hospital problems. * Resolved Problems: * No resolved hospital problems. * DIFFERENTIAL AND PLAN: Rigors Possible pathophysiology from underlying interplay between HIV, type 2 diabetes Will get Infectious Disease consult Will check thyroid levels, CBC with diff, electrolytes, CMP, MRSA screen as patient was hospitalized just over a month ago, A1c, CD4 and viral load, CK, lactate, PT, APTT, lipase EKG We will get a chest x-ray due to hypoxic event Patient had a fever soon after arriving at the floor. We got stat labs including a blood culture and I have started the patient on broad-spectrum vancomycin and Zosyn History of [place] Continue home prasugrel Depression Continue home fluoxetine HIV Continue home juluca Hypothyroidism Continue home levothyroxine Essential hypertension Continue home metoprolol, nifedipine GERD Continue home Protonix PHARMACOLOGIC VTE PROPHYLAXIS:Enoxaparin CODE STATUS: No Code EXPECTED DISCHARGE DATE: 08/22/2024 I spent a total of 55 minutes coordinating, documenting, and providing care for this patient excluding time spent in the performance of separately billed services or time spent by another provider/QHP. * Damion Barber MD - 08/22/2024 12:44 PM EST HISTORY & PHYSICAL - Interventional Radiology Service [address] [address] Name: Tad Silvestre Location: [facility] Date: 08/22/2024 Time: 12:44 PM CHIEF COMPLAINT: Bleeding hemocath HISTORY OF PRESENT ILLNESS: Esrd. Bleeding around site x 1 week. Wbc nl. Hemocath exchange requested. 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 05/07/2023 History of GI bleed 02/02/2024 Duodenal ulcer HIV positive ([facility]) Hypertension Kidney disease, chronic, stage IV (GFR 15-29 ml/min) ([facility]) 05/02/2022 Left bundle branch block 05/02/2022 [place] (myocardial infarction) 05/02/2022 Overweight (BMI 25.0-29.9) 05/02/2022 Recurrent major depressive disorder, in full remission ([facility]) 05/05/2022 Systolic and diastolic CHF, chronic ([facility]) 05/02/2022 Type 2 diabetes mellitus with hemoglobin A1c goal of less than 8.0% ([facility]) 05/02/2022 Past Surgical History: Procedure Laterality Date AV [...] performed by Damion Barber MD at [facility] NONE Social History Socioeconomic History Marital status: Single Spouse name: Not on file Number of children: Not on file Years of education: Not on file Highest education level: Not on file Occupational History Not on file Tobacco Use Smoking status: Former Average packs/day: 0.3 packs/day for 30.0 years (7.5 ttl pk-yrs) Types: Cigarettes Start date: 1973 Smokeless tobacco: Never Vaping Use Vaping status: Never Used Substance and Sexual Activity Alcohol use: Yes Alcohol/week: 11.7 standard drinks of alcohol Types: 14 5 oz of wine per week Drug use: No Sexual activity: Not on file Other Topics Concern Not on file Social History Narrative Not on file Social Needs Financial Resource Strain: Low Risk (01/18/2024) Financial Resource Strain Do you have any trouble paying for your medications, or do you think you might in the future? (Adult - for ages 18 years and over): No Does your family have trouble paying for medicine? (Household - for ages 0-17 years): Not on file Food Insecurity: No Food Insecurity (01/18/2024) Food Insecurity Do you need food for this week? (Adult - for ages 18 years and over): No Are you able to get enough food for your family? (Household - for ages 0-17 years): Not on file Does your family need food this week? (Household - for ages 0-17 years): Not on file Do you always have enough food for your family? (Household - for ages 0-17 years): Not on file Transportation Needs: No Transportation Needs (01/18/2024) Transportation Needs Do you have trouble getting a ride to medical visits or work? (Adult - for ages 18 years and over):Never True Does your family have a hard time getting a ride to doctors visits? (Household - for ages 0-17 years): Not on file Has lack of transportation kept you from medical appointments, meetings, work, or from getting things needed for daily living? Check all that apply. (Adult - for ages 18 years and over): Not on file Do you (or your family) have trouble finding or paying for a ride (transportation)? (Household - for ages 0-17 years): Not on file Social Connections: Socially Integrated (01/18/2024) Social Connections How often do you feel lonely or isolated from those around you? (Adult - for ages 18 years and over): Never Housing Stability: Low Risk (01/18/2024) Housing Stability Do you currently live in a residential or have no steady place to sleep at night? (Adult - for ages 18 years and over): No Do you think you are at risk of becoming homeless? (Adult - for ages 18 years and over): No Does your family worry about paying for your home or becoming homeless? (Household - for ages 0-17 years): Not on file Are you homeless or worried that you might be in the future? (Adult - for ages 18 years and over): Not on file Are you (or your family) homeless or worried that you might be in the future? (Household - for ages0-17 years): Not on file Family History Problem Relation Name Age of Onset No Past Hx Father Heart Disorder Mother Neurological Disorder Mother Parkinson's, Alzheimer's Review of patient's allergies indicates: No Known Allergies Current Facility-Administered Medications Medication Dose Route Frequency Provider Last Rate Last Admin NSS infusion 25 mL/hr Intravenous Continuous Damion Barber MD 25 mL/hr at 08/22/24 1202 25 mL/hr at 08/22/24 1202 REVIEW OF SYSTEMS: Constitutional: (-) fever chills sweats or weight loss Cardiovascular: (-) negative: no chest pain, dyspnea, syncope, or palpitations Pulmonary: (-) negative: no cough, wheezing, or shortness of breath Abdominal/GI: (-) negative: no pain, heartburn, dysphagia, bleeding, change in bowel habits, nauseaor vomiting OBJECTIVE: BP 110/73 | Pulse 70 | Temp 36.2 C (97.2 F) (Tympanic) | Resp 18 | Ht 1.753 m (5' 9.02") | Wt 77.1 kg (170 lb) | SpO2 97% | BMI 25.09 kg/m | BSA 1.94 m PHYSICAL EXAM: Constitutional: no acute distress CV: normal rate and rhythm, no murmur, gallops or rub Chest: normal respiratory effort, lungs clear to auscultation and percussion, breath sounds normal Abdomen: normal: soft, bowel sounds normal, no masses, tenderness or organomegaly LABS: CBC Results: PT INR Results: Results for orders placed or performed in visit on 07/30/24 PT INR Result Value Ref Range Prothrombin Time 13.0 11.6 - 15.2 seconds INR 1.0 0.8 - 1.2 Results for orders placed or performed during the hospital encounter of 06/14/12 PT/INR Result Value Ref Range Prothrombin Time 15.3 (H) 11.2 - 14.2 seconds INR 1.28 (H) 0.85 - 1.16 BUN Results: Lab Results Component Value Date/Time BUN - [facility] 27 (H) 08/21/2024 12:01 PM BUN - [facility] 17 04/11/2024 10:31 AM BUN - [facility] 24 (H) 02/02/2024 11:52 AM BUN - [facility] 48 (H) 10/02/2020 03:48 PM BUN - [facility] 52 (H) 07/01/2020 01:03 PM BUN - [facility] 18 06/17/2012 06:08 AM BUN - [facility] 16 06/16/2012 05:08 AM BUN - [facility] 14 06/15/2012 05:32 AM Creatinine Results: Lab Results Component Value Date/Time CREATININE - [facility] 2.7 (H) 08/21/2024 12:01 PM CREATININE - [facility] 2.4 (H) 04/11/2024 10:31 AM CREATININE - [facility] 3.4 (H) 02/02/2024 11:52 AM CREATININE - [facility] 3.5 (H) 02/02/2024 11:52 AM CREATININE - [facility] 3.37 (H) 10/02/2020 03:48 PM CREATININE - [facility] 3.31 (H) 07/01/2020 01:03 PM CREATININE - [facility] 0.9 06/17/2012 06:08 AM CREATININE - [facility] 0.8 06/16/2012 05:08 AM CREATININE - [facility] 0.8 06/15/2012 05:32 AM CREATININE, RANDOM URINE - [facility] 54 04/11/2024 10:37 AM CREATININE, RANDOM URINE - [facility] 42 05/07/2023 12:16 PM CREATININE, RANDOM URINE - [facility] 37 08/12/2022 03:11 PM Potassium Results: Lab Results Component Value Date/Time POTASSIUM - [facility] 3.7 08/21/2024 12:01 PM POTASSIUM - [facility] 4.8 06/26/2024 09:58 AM POTASSIUM - [facility] 3.5 04/11/2024 10:31 AM POTASSIUM - [facility] 4.9 02/02/2024 11:52 AM POTASSIUM - [facility] 3.9 10/02/2020 03:48 PM POTASSIUM - [facility] 4.4 07/01/2020 01:03 PM POTASSIUM - [facility] 3.2 (L) 06/17/2012 06:08 AM POTASSIUM - [facility] 3.5 06/16/2012 05:08 AM POTASSIUM - [facility] 3.6 06/15/2012 05:32 AM INFORMED CONSENT: Yes PRE-SEDATION ASSESSMENT IMPRESSION/PLAN: Hemocath exchange Damion Barber MD documented in this encounter Consult Notes * Megan Sanderson, [facility] - 08/24/2024 10:35 AM EST PHARMACY PHARMACOKINETIC CONSULT [address] [address] Name: Tad Silvestre Location: [facility] [id number] Date: 08/24/2024 Time: 10:35 AM Requesting service: Hospitalists Bacteria being treated: empiric Source of infection: sepsis Medication(s) being managed: Vancomycin Pharmacokinetic calculations will be performed without utilizing AppTapRx software due to meeting exclusion criteria (LEE ANN Stage 2 or 3 YASIR, or receiving renal replacement therapy [iHD, CRRT, PD]). Lab information: Lab Results Component Value Date/Time WBC 6.68 08/24/2024 06:26 AM WBC 6.04 08/23/2024 06:25 AM WBC 5.40 08/22/2024 06:21 PM WBC 3.50 (L) 08/22/2024 03:34 PM WBC 4.27 04/11/2024 10:31 AM WBC 18.27 (H) 06/17/2012 06:08 AM WBC 16.36 (H) 06/16/2012 05:08 AM WBC 15.11 (H) 06/15/2012 05:32 AM WBC 16.51 (H) 06/14/2012 06:19 PM Lab Results Component Value Date/Time BUN 35 (H) 08/24/2024 06:26 AM BUN 36 (H) 08/23/2024 06:25 AM BUN 38 (H) 08/22/2024 04:12 PM BUN 27 (H) 08/21/2024 12:01 PM BUN 17 04/11/2024 10:31 AM BUN 48 (H) 10/02/2020 03:48 PM BUN 52 (H) 07/01/2020 01:03 PM BUN 18 06/17/2012 06:08 AM BUN 16 06/16/2012 05:08 AM BUN 14 06/15/2012 05:32 AM BUN 12 06/14/2012 06:19 PM Lab Results Component Value Date/Time CREAT 3.9 (H) 08/24/2024 06:26 AM CREAT 3.8 (H) 08/23/2024 06:25 AM CREAT 3.6 (H) 08/22/2024 04:12 PM CREAT 2.7 (H) 08/21/2024 12:01 PM CREAT 2.4 (H) 04/11/2024 10:31 AM CREAT 3.37 (H) 10/02/2020 03:48 PM CREAT 3.31 (H) 07/01/2020 01:03 PM CREAT 0.9 06/17/2012 06:08 AM CREAT 0.8 06/16/2012 05:08 AM CREAT 0.8 06/15/2012 05:32 AM CREAT 0.9 06/14/2012 06:19 PM ANTIMICROBIALS GIVEN (last 28 hours) Date/Time Action Medication Dose Rate 08/23/24 2043 New Bag Piperacillin-Tazobactam (Zosyn) 4.5 g in 100 mL NSS ivpb (HALF hour infusion) 4.5 g 210 mL/hr 08/23/24 0855 New Bag Piperacillin-Tazobactam (Zosyn) 4.5 g in 100 mL NSS ivpb (HALF hour infusion) 4.5 g 210 mL/hr Wt Readings from Last 1 Encounters: 08/22/24 77.1 kg (170 lb) Vancomycin dosing weight: use actual body weight. For patients who are >140% of their ideal bodyweight AND >100kg, use obesity dosing parameters. Dosing and levels to date: Lab Results Component Value Date/Time VANCORANDOM 14.6 08/24/2024 06:26 AM VANCORANDOM 20.7 08/23/2024 06:25 AM Day of Therapy Date Dose Admin Time Level (mcg/mL) Collected Time Notes/Comments 1 08/22 2000 mg ~ 1730 LD 2 08/23 none 20.7 0625 3 08/24 1000 mg 1700 14.6 0626 Assessment and Plan: - ESRD on HD schedule is Wednesday, , Wednesday - Give vancomycin 1000 mg IV today post dialysis -Draw random level on 08/26 at 0600 Contact the Pharmacy at extension [phone] if there are any questions. * Pierre Lara MD - 08/23/2024 1:32 PM ESTAssociated Order(s): NEPHROLOGY CONSULT IP Reason for Consult: ESRD History of Present Illness: This is a 69-year-old male with a past medical history of HIV(viral load undetectable, CD4 599), type 2 diabetes(last A1c 8.6), end-stage renal disease on dialysis TTS at [facility] but missed on Wednesday then had it on Wednesday, depression, GERD with a history of duodenal ulcer, essential h ypertension, history of [place] who was admitted after developing rigors during recovery following exchange of hemodialysis catheter. Procedure was uneventful but soon after the procedure patient developed an episode of rigors. Patient is being treated empirically for sepsis with Zosyn and vancomycin. He feels better today. No shortness of breath or leg swelling. Blood pressure is on the lower side. Review of Systems Psychological ROS: negative for - mood swings ENT ROS: negative for - nasal congestion or nasal discharge Endocrine ROS: negative Respiratory ROS: no cough, shortness of breath, or wheezing Cardiovascular ROS: no chest pain or dyspnea on exertion Gastrointestinal ROS: no abdominal pain, change in bowel habits, or black or bloody stools Genito-Urinary ROS: no dysuria, trouble voiding, or hematuria Musculoskeletal ROS: negative for - muscle pain Neurological ROS: no TIA or stroke symptoms Dermatological ROS: negative for rash Past Medical History Past Medical History: Diagnosis Date Chronic heart failure with preserved ejection fraction (HCC) 11/24/2022 Coronary artery disease involving [place] coronary artery of [place] heart without angina pectoris 05/02/2022 Duodenal ulcer 02/02/2024 Dyslipidemia 05/02/2022 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 05/07/2023 History of GI bleed 02/02/2024 Duodenal ulcer HIV positive ([facility]) Hypertension Kidney disease, chronic, stage IV (GFR 15-29 ml/min) ([facility]) 05/02/2022 Left bundle branch block 05/02/2022 [place] (myocardial infarction) 05/02/2022 Overweight (BMI 25.0-29.9) 05/02/2022 Recurrent major depressive disorder, in full remission ([facility]) 05/05/2022 Systolic and diastolic CHF, chronic ([facility]) 05/02/2022 Type 2 diabetes mellitus with hemoglobin A1c goal of less than 8.0% ([facility]) 05/02/2022 Past Surgical History Past Surgical History: Procedure Laterality Date AV [...] performed by Damion Barber MD at [facility] NONE REPLACE,COMP,[facility] ACC DEV Right 08/22/2024 REPLACEMENT COMPLETE TUNNELED CENTRAL CATHETER NO PORT performed by Damion Barber MD at [facility] Current Medications Current Facility-Administered Medications Medication Dose Route Frequency Provider [START ON 08/24/2024] Drug Level Check - Vancomycin Random Does Not Apply Once Timed Lab 2hrs [place] MD Acetaminophen (Tylenol) tab 650 mg 650 mg Oral Q6H PRN Jaycob Horton MD aspirin chew tab 81 mg 81 mg Oral Daily(AM) Jaycob Horton MD atorvaSTATin (Lipitor) tab 40 mg 40 mg Oral Q 1700 Jaycob Horton MD Polyethylene Glycol 3350 (Miralax) oral powder 17 g 1 Packet Oral Daily PRN Jaycob Horton MD And [START ON 08/24/2024] senna-docusate (Senokot-S) 1 Tablet 1 Tablet Oral BID PRN Jaycob Horton MD And [START ON 08/25/2024] Bisacodyl (Dulcolax) tab 5 mg 5 mg Oral Daily PRN Jaycob Horton MD And [START ON 08/25/2024] Bisacodyl (Dulcolax) supp 10 mg 10 mg Rectal Daily PRN Jaycob Horton MD calcium CARBonate (Tums E-X) tab CHEW 750 mg 750 mg Oral BID PRN Jaycob Horton MD chlorhexidine gluconate cloth 2 % pad External Daily 1000 Jaycob Horton MD cholecalciferol (VIT D3) (Vitamin D3) tab 1,000 Units 1,000 Units Oral Daily(AM) Jaycob Horton MD dextrose 50% inj 25 mL 25 mL IV Push PRN Jaycob Horton MD dextrose 50% inj 50 mL 50 mL IV Push PRN Jaycob Horton MD Dolutegravir (Tivicay) tab 50 mg 50 mg Oral Daily(AM) Jaycob Horton MD And Rilpivirine (Edurant) tab 25 mg 25 mg Oral Daily(AM) Jaycob Horton MD Enoxaparin (Lovenox) inj 30 mg 30 mg Subcutaneous Daily(AM) Jaycob Horton MD FLUoxetine (PROzac) cap 20 mg 20 mg Oral Daily(AM) Jaycob Horton MD glucagon (Glucagen) inj 1 mg 1 mg Intramuscular PRN Jaycob Horton MD Glucose (Glutose 15) 40 % gel 15 g of glucose 15 g of glucose Oral PRN Jaycob Horton MD Glucose (Glutose 15) 40 % gel 30 g of glucose 30 g of glucose Oral PRN Jaycob Horton MD glucose chew tab 16 g 16 g Oral PRN Jaycob Horton MD insulin aspart (NovoLOG) inj 10 Units 10 Units Subcutaneous With meals Jaycob Horton MD insulin aspart (NovoLOG) inj Subcutaneous With Meals and HS Jaycob Horton MD Insulin Glargine (Lantus) inj 22 Units 22 Units Subcutaneous Daily 0900 Jaycob Horton MD levothyroxine (Levoxyl) tab 25 mcg 25 mcg Oral Daily 0630 Jaycob Horton MD melatonin tab 3 mg 3 mg Oral HS PRN Jaycob Horton MD Menthol ([place]) cough drop 1 Lozenge 1 Lozenge Oral Q2H PRN Jaycob Horton MD metoprolol succinate XL (toPROL XL) tab 25 mg 25 mg Oral Daily(AM) Jaycob Horton MD NSS infusion 25 mL/hr Intravenous Continuous Damion Barber MD ondansetron (Zofran) inj 4 mg 4 mg IV Push Q6H PRN Jaycob Horton MD Oral Hygiene: Mouth Swab with dentifrice Oral QID(AM/NOON/PM/HS) Jaycob Horton MD pantoprazole (Protonix) tab 40 mg 40 mg Oral Daily(AM) Jaycob Horton MD Piperacillin-Tazobactam (Zosyn) 4.5 g in 100 mL NSS ivpb (HALF hour infusion) 4.5 g IV Piggyback Q12H NOW Jaycob Horton MD prasugrel (Effient) tab 10 mg 10 mg Oral Daily(AM) Jaycob Horton MD sodium chloride 0.9 % flush central line 10 mL 10 mL IV Push Q8H Jaycob Horton MD sodium chloride 0.9 % flush/inj 3 mL 3 mL IV Push PRN Jaycob Horton MD vancomycin per pharmacy order Does Not Apply Per Pharmacy Jaycob Horton MD Allergies Review of patient's allergies indicates: No Known Allergies Family History Family History Problem Relation Name Age of Onset No Past Hx Father Heart Disorder Mother Neurological Disorder Mother Parkinson's, Alzheimer's Social Hisotry Social History Socioeconomic History Marital status: Single Spouse name: Not on file Number of children: Not on file Years of education: Not on file Highest education level: Not on file Occupational History Not on file Tobacco Use Smoking status: Former Average packs/day: 0.3 packs/day for 30.0 years (7.5 ttl pk-yrs) Types: Cigarettes Start date: 1973 Smokeless tobacco: Never Vaping Use Vaping status: Never Used Substance and Sexual Activity Alcohol use: Not Currently Comment: rarely Drug use: No Sexual activity: Not on file Other Topics Concern Not on file Social History Narrative Not on file Social Needs Financial Resource Strain: Low Risk (01/18/2024) Financial Resource Strain Do you have any trouble paying for your medications, or do you think you might in the future? (Adult - for ages 18 years and over): No Does your family have trouble paying for medicine? (Household - for ages 0-17 years): Not on file Food Insecurity: No Food Insecurity (08/22/2024) Food Insecurity Do you need food for this week? (Adult - for ages 18 years and over): No Are you able to get enough food for your family? (Household - for ages 0-17 years): Not on file Does your family need food this week? (Household - for ages 0-17 years): Not on file Do you always have enough food for your family? (Household - for ages 0-17 years): Not on file Transportation Needs: No Transportation Needs (08/22/2024) Transportation Needs Do you have trouble getting a ride to medical visits or work? (Adult - for ages 18 years and over):Never True Does your family have a hard time getting a ride to doctors visits? (Household - for ages 0-17 years): Not on file Has lack of transportation kept you from medical appointments, meetings, work, or from getting things needed for daily living? Check all that apply. (Adult - for ages 18 years and over): No Do you (or your family) have trouble finding or paying for a ride (transportation)? (Household - for ages 0-17 years): Not on file Social Connections: Socially Integrated (01/18/2024) Social Connections How often do you feel lonely or isolated from those around you? (Adult - for ages 18 years and over): Never Housing Stability: Low Risk (08/22/2024) Housing Stability Do you currently live in a residential or have no steady place to sleep at night? (Adult - for ages 18 years and over): No Do you think you are at risk of becoming homeless? (Adult - for ages 18 years and over): No Does your family worry about paying for your home or becoming homeless? (Household - for ages 0-17 years): Not on file Are you homeless or worried that you might be in the future? (Adult - for ages 18 years and over): No Are you (or your family) homeless or worried that you might be in the future? (Household - for ages0-17 years): Not on file PHYSICAL EXAM BP: 92 mmHg/59 mmHg (08/23/241114) Pulse: 77 (08/23/241114) Resp: 18 (08/23/241114) Temp: 36.78 C (08/23/241114) Temp Summary: Temp Min: 36 C (96.8 F) Max: 38.5 C (101.3 F) SpO2: 94 % (08/23/241114) O2 flow rate: 2 L/MIN (08/23/245) Supplemental O2 Delivery: Room Air, None (08/23/241114) GENERAL: Awake, alert, in no acute distress. EYES: PERRL, conjunctivae anicteric. ENT: Mucous membranes moist, oropharynx clear. NECK: Supple, no JVD. LYMPH: No cervical or supraclavicular lymphadenopathy. LUNGS: Clear to auscultation bilaterally, no respiratory distress. CARDIAC: Regular rate and rhythm, normal S1/S2, no murmurs, rubs, or gallops. ABDOMEN: Soft, non-tender, non-distended, bowel sounds present. EXT/MSK: No clubbing, cyanosis, or edema. SKIN: No rash, no jaundice. NEURO: Oriented x3, no tremor, no asterixis. Intake/Output Summary (Last 24 hours) at 08/23/2024 1332 Last data filed at 08/23/2024 1100 Gross per 24 hour Intake 2074.97 ml Output 2250 ml Net -175.03 ml LABS/STUDIES: Lab Results Component Value Date/Time BUN - [facility] 36 (H) 08/23/2024 06:25 AM BUN - [facility] 38 (H) 08/22/2024 04:12 PM BUN - [facility] 27 (H) 08/21/2024 12:01 PM BUN - [facility] 17 04/11/2024 10:31 AM BUN - [facility] 24 (H) 02/02/2024 11:52 AM BUN - [facility] 48 (H) 10/02/2020 03:48 PM BUN - [facility] 52 (H) 07/01/2020 01:03 PM BUN - [facility] 18 06/17/2012 06:08 AM BUN - [facility] 16 06/16/2012 05:08 AM BUN - [facility] 14 06/15/2012 05:32 AM BUN - [facility] 12 06/14/2012 06:19 PM Lab Results Component Value Date/Time CREATININE - [facility] 3.8 (H) 08/23/2024 06:25 AM CREATININE - [facility] 3.6 (H) 08/22/2024 04:12 PM CREATININE - [facility] 2.7 (H) 08/21/2024 12:01 PM CREATININE - [facility] 2.4 (H) 04/11/2024 10:31 AM CREATININE - [facility] 3.4 (H) 02/02/2024 11:52 AM CREATININE - [facility] 3.5 (H) 02/02/2024 11:52 AM CREATININE - [facility] 3.37 (H) 10/02/2020 03:48 PM CREATININE - [facility] 3.31 (H) 07/01/2020 01:03 PM CREATININE - [facility] 0.9 06/17/2012 06:08 AM CREATININE - [facility] 0.8 06/16/2012 05:08 AM CREATININE - [facility] 0.8 06/15/2012 05:32 AM CREATININE - [facility] 0.9 06/14/2012 06:19 PM CREATININE, RANDOM URINE - [facility] 54 04/11/2024 10:37 AM CREATININE, RANDOM URINE - [facility] 42 05/07/2023 12:16 PM CREATININE, RANDOM URINE - [facility] 37 08/12/2022 03:11 PM CREATININE, RANDOM URINE - [facility] 50 05/07/2022 04:27 PM CREATININE, RANDOM URINE - [facility] 36 01/13/2022 11:29 AM No components found for: "E GLOM FILT RATE" Lab Results Component Value Date/Time POTASSIUM - [facility] 4.0 08/23/2024 06:25 AM POTASSIUM - [facility] 3.8 08/22/2024 04:12 PM POTASSIUM - [facility] 3.7 08/21/2024 12:01 PM POTASSIUM - [facility] 4.8 06/26/2024 09:58 AM POTASSIUM - [facility] 3.9 10/02/2020 03:48 PM POTASSIUM - [facility] 4.4 07/01/2020 01:03 PM POTASSIUM - [facility] 3.2 (L) 06/17/2012 06:08 AM POTASSIUM - [facility] 3.5 06/16/2012 05:08 AM POTASSIUM - [facility] 3.6 06/15/2012 05:32 AM Lab Results Component Value Date/Time HGB 9.3 (L) 08/23/2024 06:25 AM HGB 10.4 (L) 08/22/2024 06:21 PM HGB 10.7 (L) 08/22/2024 03:34 PM HGB 13.0 (L) 04/11/2024 10:31 AM HGB 9.7 (L) 02/02/2024 11:52 AM HGB 13.0 (L) 06/17/2012 06:08 AM HGB 13.3 (L) 06/16/2012 05:08 AM HGB 13.8 (L) 06/15/2012 05:32 AM HGB 14.5 06/14/2012 06:19 PM No results found for: "MICROALB" No components found for: "PROTCREATRAT" Lab Results Component Value Date/Time PTH - [facility] 400 (H) 04/11/2024 10:31 AM Lab Results Component Value Date/Time PHOSPHORUS - [facility] 2.2 (L) 04/11/2024 10:31 AM PHOSPHORUS-OUTSIDE LAB 4.6 (H) 04/28/2021 04:05 PM ASSESSMENT/PLAN: This is a 69-year-old male with a past medical history of HIV(viral load undetectable, CD4 599), type 2 diabetes(last A1c 8.6), end-stage renal disease on dialysis TTS at [facility], depression, GERD with a history of duodenal ulcer, essential hypertension, history of [place] who was admitted after developing rigors during recovery following exchange of hemodialysis catheter. Plan: ESRD: Patient is on dialysis Wednesday. Last outpatient dialysis was on Wednesday. Electrolytes are stable no signs of volume overload. No indication for dialysis today. Will dialyze himtomorrow for 3-1/2 hours target UF 2 L. Sepsis: Likely due to bacteremia. Cultures are pending. Continue vancomycin and Zosyn dosed for GFRless than 15 mL/minute Pierre Lara MD This note was generated with the help of voice recognition software. Please excuse for errors. * Maria EMegan, [facility] - 08/23/2024 7:21 AM EST PHARMACY PHARMACOKINETIC CONSULT [address] [address] Name: Tad Silvestre Location: [facility] 6B-6019/D Date: 08/23/2024 Time: 7:21 AM Requesting service: Hospitalists Bacteria being treated: empiric Source of infection: sepsis Medication(s) being managed: Vancomycin Pharmacokinetic calculations will be performed without utilizing AppTapRx software due to meeting exclusion criteria (LEE ANN Stage 2 or 3 YASIR, or receiving renal replacement therapy [iHD, CRRT, PD]). Lab information: Lab Results Component Value Date/Time WBC 6.04 08/23/2024 06:25 AM WBC 5.40 08/22/2024 06:21 PM WBC 3.50 (L) 08/22/2024 03:34 PM WBC 4.27 04/11/2024 10:31 AM WBC 5.93 02/02/2024 11:52 AM WBC 18.27 (H) 06/17/2012 06:08 AM WBC 16.36 (H) 06/16/2012 05:08 AM WBC 15.11 (H) 06/15/2012 05:32 AM WBC 16.51 (H) 06/14/2012 06:19 PM Lab Results Component Value Date/Time BUN 36 (H) 08/23/2024 06:25 AM BUN 38 (H) 08/22/2024 04:12 PM BUN 27 (H) 08/21/2024 12:01 PM BUN 17 04/11/2024 10:31 AM BUN 24 (H) 02/02/2024 11:52 AM BUN 48 (H) 10/02/2020 03:48 PM BUN 52 (H) 07/01/2020 01:03 PM BUN 18 06/17/2012 06:08 AM BUN 16 06/16/2012 05:08 AM BUN 14 06/15/2012 05:32 AM BUN 12 06/14/2012 06:19 PM Lab Results Component Value Date/Time CREAT 3.8 (H) 08/23/2024 06:25 AM CREAT 3.6 (H) 08/22/2024 04:12 PM CREAT 2.7 (H) 08/21/2024 12:01 PM CREAT 2.4 (H) 04/11/2024 10:31 AM CREAT 3.4 (H) 02/02/2024 11:52 AM CREAT 3.5 (H) 02/02/2024 11:52 AM CREAT 3.37 (H) 10/02/2020 03:48 PM CREAT 3.31 (H) 07/01/2020 01:03 PM CREAT 0.9 06/17/2012 06:08 AM CREAT 0.8 06/16/2012 05:08 AM CREAT 0.8 06/15/2012 05:32 AM CREAT 0.9 06/14/2012 06:19 PM ANTIMICROBIALS GIVEN (last 28 hours) Date/Time Action Medication Dose Rate 08/22/24 1739 New Bag Vancomycin (Vancocin) 2000 mg in NSS 500 mL ivpb 2,000 mg 285 mL/hr 08/22/24 1738 New Bag Piperacillin-Tazobactam (Zosyn) 4.5 g in 100 mL NSS ivpb (HALF hour infusion) 4.5 g 210 mL/hr Wt Readings from Last 1 Encounters: 08/22/24 77.1 kg (170 lb) Vancomycin dosing weight: use actual body weight. For patients who are >140% of their ideal bodyweight AND >100kg, use obesity dosing parameters. Dosing and levels to date: Lab Results Component Value Date/Time VANCORANDOM 20.7 08/23/2024 06:25 AM Day of Therapy Date Dose Admin Time Level (mcg/mL) Collected Time Notes/Comments 1 08/22 2000 mg ~ 1730 LD 2 08/23 none 20.7 0625 Assessment and Plan: - ESRD on HD (unknown inpatient schedule as of now) - No dose since level is supratherapeutic -Draw random level on 08/24 at 0600 Contact the Pharmacy at extension [phone] if there are any questions. * Alfredo Phan RPh - 08/22/2024 6:49 PM EST PHARMACY PHARMACOKINETIC CONSULT [address] [address] Name: Tad Silvestre Location: [facility] 6B-6019/D Date: 08/22/2024 Time: 6:49 PM Requesting service: Hospitalists Bacteria being treated: empiric Source of infection: sepsis Medication(s) being managed: Vancomycin Pharmacokinetic calculations will be performed without utilizing CooCoo software due to meeting exclusion criteria (LEE ANN Stage 2 or 3 YASIR, or receiving renal replacement therapy [iHD, CRRT, PD]). Lab information: Lab Results Component Value Date/Time WBC 5.40 08/22/2024 06:21 PM WBC 3.50 (L) 08/22/2024 03:34 PM WBC 4.27 04/11/2024 10:31 AM WBC 5.93 02/02/2024 11:52 AM WBC 7.06 05/07/2023 12:16 PM WBC 18.27 (H) 06/17/2012 06:08 AM WBC 16.36 (H) 06/16/2012 05:08 AM WBC 15.11 (H) 06/15/2012 05:32 AM WBC 16.51 (H) 06/14/2012 06:19 PM Lab Results Component Value Date/Time BUN 38 (H) 08/22/2024 04:12 PM BUN 27 (H) 08/21/2024 12:01 PM BUN 17 04/11/2024 10:31 AM BUN 24 (H) 02/02/2024 11:52 AM BUN 45 (H) 08/12/2023 02:01 PM BUN 48 (H) 10/02/2020 03:48 PM BUN 52 (H) 07/01/2020 01:03 PM BUN 18 06/17/2012 06:08 AM BUN 16 06/16/2012 05:08 AM BUN 14 06/15/2012 05:32 AM BUN 12 06/14/2012 06:19 PM Lab Results Component Value Date/Time CREAT 3.6 (H) 08/22/2024 04:12 PM CREAT 2.7 (H) 08/21/2024 12:01 PM CREAT 2.4 (H) 04/11/2024 10:31 AM CREAT 3.4 (H) 02/02/2024 11:52 AM CREAT 3.5 (H) 02/02/2024 11:52 AM CREAT 3.37 (H) 10/02/2020 03:48 PM CREAT 3.31 (H) 07/01/2020 01:03 PM CREAT 0.9 06/17/2012 06:08 AM CREAT 0.8 06/16/2012 05:08 AM CREAT 0.8 06/15/2012 05:32 AM CREAT 0.9 06/14/2012 06:19 PM ANTIMICROBIALS GIVEN (last 28 hours) Date/Time Action Medication Dose Rate 08/22/24 1739 New Bag Vancomycin (Vancocin) 2000 mg in NSS 500 mL ivpb 2,000 mg 285 mL/hr 08/22/24 1738 New Bag Piperacillin-Tazobactam (Zosyn) 4.5 g in 100 mL NSS ivpb (HALF hour infusion) 4.5 g 210 mL/hr Wt Readings from Last 1 Encounters: 08/22/24 77.1 kg (170 lb) Vancomycin dosing weight: use actual body weight. For patients who are >140% of their ideal bodyweight AND >100kg, use obesity dosing parameters. Dosing and levels to date: No results found for: "VANCO", "VANCOPEAK", "VANCORANDOM", "VANCOTROUGH", "GENTPEAK", "GENTRANDOM","GENTTROUGH", "TOBRAPEAK", "TOBRARANDOM", "TOBRATROUGH", "AMIKAPEAK", "AMIKARANDOM", "AMIKATROUGH" Day of Therapy Date Dose Admin Time Level (mcg/mL) Collected Time Notes/Comments 1 08/22 2000 mg ~ 1730 LD Assessment and Plan: - ESRD on HD (unknown inpatient schedule as of now) - Obtain random level 08/23 with AM labs Contact the Pharmacy at extension [phone] if there are any questions. documented in this encounter Nursing Notes * Aleisha Meyer NA/DANIELA - 08/26/2024 12:[address] Isaiah MD Primary Care Physician Mady Osman [facility] [phone] [place] [address] Sunday September 01, 2024 @ 3:20 p.m. * Sandy Escobar RN - 08/26/2024 12:07 PM EST POST ASSESSMENT COMMUNICATION NOTE - HEMODIALYSIS Treatment: Prescribed treatment time: 3hrs Duration of Treatment (minutes): 180 minutes (08/26/241157) Dialysis Treatment Less than Prescribed: NO Prescribed UF: 1000ml Dialysis: 1000 ml (08/26/241157) Reason prescribed UF was not achieved: n/a Blood Returned: Yes Potassium Bath: As ordered for entire treatment, 2K+ 2.5 Ca Post Dialysis Vitals: Temp: 36.3 C (97.3 F) (08/26/24 115) Pulse: 60 (08/26/241157) Resp: 16 (08/26/241157) SpO2: 99 % (08/26/241157) O2 flow rate: 2 L/MIN (08/23/24 0245) Supplemental O2 Delivery: Room Air, None (08/26/24851) Pain Assessment Flowsheet Row Most Recent Value Pain Assessment Scale [facility] Adult Scale 0-10 Pain Score 0 (no pain) Pre BP Sitting: (!) 134/94 (08/26/24 0852) Post BP Sittin/71 (08/26/24 115) Pre-Treatment Weight: 76.7 kg (169 lb 1.5 oz) (08/26/241157) Post-Treatment Weight: 75.1 kg (165 lb 9.1 oz) (08/26/241157) Treatment Weight Change (kg): -1.6 kg (08/26/241157) Medications administered, see MAR/flowsheets for further information: N/A Access: Dialysis catheter, RIJ (Right internal jugular)locked with NSS Function: Negative arterial pressures Dialysis Tx Tolerance: Tolerated well (08/26/24 1158) Patient educated on: Signs and symptoms to report to staff Additional patient needs/interventions during treatment: N/A Dialysis catheter functioned normally, locked per order. Report called to Chetna Da Silva RN. Patient transported to floor in stable condition. * Sandy Escobar RN - 08/26/2024 8:52 AM EST Pt scheduled for 3hr HD tx. Report given from Chetna Da Silva RN. Timeout completed per policy. Dialyzer lot #[id number] Blood line lot # [id number] * Jose Valladares RN - 08/25/2024 4:14 PM EST Blood sugar 70, pt symptomatic, orange juice and crackers given, on recheck BS 75, pt asymptomatic.Scheduled insulin held until after supper, will re assess then. * Yamilex Magallanes RN - 08/24/2024 1:49 PM EST IN-HOUSE TRANSFER RECEIVING UNIT - NURSING [address] [address] Name: Tad Silvestre Location: [facility] 6B-6019/D Date: 08/24/2024 Time: 2:17 PM Patient received to room 60 at 1349 Vital Signs: BP: 121 mmHg/72 mmHg (08/24/24 1349) Pulse: 73 (08/24/24 1349) Resp: 18 (08/24/24 1349) Temp: 36.5 C (08/24/24 1349) Temp Summary: Temp Min: 36 C (96.8 F) Max: 36.7 C (98.1 F) SpO2: 100 % (08/24/24 1349) O2 flow rate: 2 L/MIN (08/23/24 0245) Supplemental O2 Delivery: Room Air, None (08/24/24 134) Pertinent transfer information upon arrival : Patient returning to after dialysis. Per dialysis nurse 0.5L taken off patient. VSS. Cath dressing changed. Patient reoriented to unit and call ybarra within reach. Fall precautions in place. Belongings received with patient: none Verbal SBAR report received from: Ivett Marquez RN Dual Licensed Skin Assessment completed by Nuvia Magallanes RN and Nuvia Wu RN. The patient is/has a N/A Skin Breakdown (includes non blanchable erythema): No * Angelica Marquez RN - 08/24/2024 1:40 PM EST POST ASSESSMENT COMMUNICATION NOTE - HEMODIALYSIS Patient arriving via: Bed Reason for SBAR handoff: Postdialysis treatment. Treatment: Prescribed treatment time: 3.5hr Duration of Treatment (minutes): 212 minutes (08/24/24 1330) Dialysis Treatment Less than Prescribed: NO Prescribed UF: 500ml (decreased from 2L per Dr Lara) Dialysis: 500 ml (08/24/24 1328) Reason prescribed UF was not achieved: N/A Blood Returned: Yes Potassium Bath: As ordered for entire treatment, 2K+ 2.5 Ca Post Dialysis Vitals: Temp: 36.5 C (97.7 F) (08/24/24 1349) Pulse: 73 (08/24/24 1349) Resp: 18 (08/24/24 1349) SpO2: 100 % (08/24/24 1349) O2 flow rate: 2 L/MIN (08/23/24 0245) Supplemental O2 Delivery: Room Air, None (08/24/24 134) Pain Assessment Flowsheet Row Most Recent Value Pain Assessment Scale [facility] Adult Scale 0-10 Pain Score 0 (no pain) Pre BP Sittin/84 (08/24/24 0945) Post BP Sittin/77 (08/24/24 1330) Pre-Treatment Weight: 77.9 kg (171 lb 11.8 oz) (08/24/241329) Post-Treatment Weight: 76.4 kg (168 lb 6.9 oz) (08/24/241329) Treatment Weight Change (kg): -1.5 kg (08/24/241329) Medications administered, see MAR/flowsheets for further information: None Access: Dialysis catheter, RIJ (Right internal jugular)locked with NSS Function: Other: lines reversed to maintain flow Dialysis Tx Tolerance: Tolerated well (08/24/241329) Patient educated on: Signs and symptoms to report to staff Additional patient needs/interventions during treatment: N/A No bleeding from dialysis access. Report called to Yamilex Magallanes RN. Patient transported to floor in stable condition. * Yamilex Wu RN - 08/24/2024 9:57 AM EST IN-HOUSE TRANSFER SENDING UNIT - NURSING [address] [address] Name: Tad Silvestre Location: [facility] 6B-6019/D Date: 08/24/2024 Time: 9:57 AM Pertinent information upon transfer VS, weight and medications given. Isolation: None Transferring nursing unit: Dialysis Vital signs: BP: 121 mmHg/100 mmHg (08/24/24721) Pulse: 67 (08/24/24721) Resp: 16 (08/24/24721) Temp: 36.5 C (08/24/24721) Temp Summary: Temp Min: 36 C (96.8 F) Max: 36.8 C (98.2 F) SpO2: 96 % (08/24/24721) O2 flow rate: 2 L/MIN (08/23/24 0245) Supplemental O2 Delivery: Room Air, None (08/24/24 075) From room 6019 to Dialysis Means of transfer: bed Family and/or significant other notified of transfer: no, reason: not needed Belongings being sent with patient: glasses Verbal SBAR report given to: Angelica YUANcalibration engineer nurse. * Angelica Marquez RN - 08/24/2024 9:48 AM EST Pt for 3.5hr HD tx. Report from Yamilex Wu RN. Timeout completed per policy. Dialyzer lot #: [id number] Bld line lot #: [id number] * Stefani Bridges BSN - 08/22/2024 3:56 PM EST Patient transferred from [facility] to at this time. Report given to Ilan Berry RN. Belongings sent with patient (clothing/phone). * Stefani Bridges BSN - 08/22/2024 2:[address] Barber verbal instructions, patient was held in PACU II [facility] Bed 2 for one hour following tunneled dialysis catheter exchange procedure. Patient noted to have small amount of blood towards the bottom of the catheter. Dr. Barber made aware and came to patient bedside. At this time, patient complained of having "chills" and became symptomatic with rigors. Bear hugger gown and warm blankets appliedto patient. Dr. Barber made decision to consult with Hospitalist team and admit patient for overnight observation. Patient agreed to staying inpatient overnight for monitoring. * Shital Osman RN - 08/22/2024 12:59 PM EST Pt condition was reassessed by Dr. Damion Barber immediately prior to start of moderate sedation and procedure. documented in this encounter OR Notes * OR Surgeon - Damion Barber MD - 08/22/2024 4:27 PM EST Procedure: Tunneled [dialysis] catheter exchange. 08/22/2024 INDICATION: [ESRD]. Bleeding from hemodialysis catheter site ATTENDING (OPERATING PHYSICIAN): Elisabeth CONSENT: After a detailed discussion of the procedure, risks, benefits and alternative treatment options, informed consent was obtained. TIME OUT: A time out procedure was performed. The patient's identification was verified. Informed consent with agreement of procedure, site and position was obtained. All necessary equipment was available prior to procedure. CONTRAST: No contrast was administered. COMPLICATIONS: None. ANESTHESIA: [Local lidocaine.] [ MEDICATIONS: See MAR PROCEDURE DESCRIPTION: Initial fluoroscopic examination demonstrates a internal jugular tunnel dialysis catheter. A 035 wire was inserted into the hemo cath and the catheter partially withdrawn. Venogram was performed demonstrating no fibrin sheath. A 14.5 Fr [19] cm tip to cuff tunneled dialysis catheter was advanced over a 035 wire reaching the SVC. Both ports flushed and aspirated well. Thrombin was injected into the tract. The tract was also sutured using 2-0 Ethilon. The catheter itself was sutured in place using 2 0 Ethilon. Fluoroscopic images were digitally archived. The catheter was secured and an occlusive dressing was applied. The procedure was performed by Dr. Barber Findings: No fibrin sheath Intact cuff. Impression: Successful exchange of a tunneled [dialysis] catheter. * Operative Report Brief - Damion Barber MD - 08/22/2024 1:32 PM EST PROCEDURE NOTE - Interventional Radiology [facility] [address] Name: Tad Silvestre Location: [facility]/OR Date: 08/22/2024 Time: 1:32 PM PROCEDURE: hemocath coin purse framer: Dr. Damion Barber ASSISTANTS: none ANESTHESIA: local conscious sedation COMPLICATIONS: none SPECIMEN: none ESTIMATED BLOOD LOSS: negligible FINDINGS: cuff intact. Sutures intact. Old clot around catheter site. No active hemorrhage. documented in this encounter Miscellaneous Notes * Ancillary Progress Note - Daya Mcpherson Cabin Cleaner - 08/26/2024 2:40 PM EST CARE MANAGEMENT - ADULT DISCHARGE NOTE [facility] [address] Name: Tad Silvestre Location: [facility] 6B-6019/D Date: 08/26/2024 Time: 5:40 PM The following coordination of care and discharge plan has been coordinated with the care team, patient, family and/or caregiver according to the patients needs and preferences. Discharge Final Discharge Plan (Complete only at time of Discharge): Home with Services (Dialysis with IV abx) (08/26/24 1700) Narrative: Pt discharged to home and will resume his T/R/Wednesday dialysis at [facility] in [place]. Dialysis will provide the IV abx and pt will receive the IV abx at dialysis. * Care Plan - Dariela Torres RN - 08/26/2024 6:27 AM EST Clinical Goal(s): Pt will report a decrease in chronic pain following interventions this shift. (08/25/241928) Possible barriers to meeting goal(s)/advancing plan of care: Diagnosis Stability of the patient: Moderately stable - low risk of patient condition declining or worsening Summary regarding today's goal(s): Met: Decrease in chronic pain reported Recommendations: Continue with plan of care * Pt Handout (on AVS) - Jose Valladares RN - 08/25/2024 6:22 PM EST [id number] Heart Failure What is heart failure? The heart is a muscle that pumps oxygen-rich blood to all parts of the body. When you have heart failure, the heart can?t pump as well as it should. Or the heart muscle can?t relax and fill the pumping chamber with blood. Blood and fluid may back up into the lungs. This causes heart failure. And itcauses pulmonary edema. Some parts of the body also don?t get enough oxygen-rich blood. This means they can't work well. These problems lead to the symptoms of heart failure. What causes heart failure? Heart failure may result from: Heart valve disease High blood pressure Active infections of the heart valves or heart muscle, such as endocarditis A past heart attack Coronary artery disease Disease of the heart muscle (cardiomyopathy) Heart problems that are present at (congenital heart defects) Heart rhythm problems (arrhythmias) Long-term (chronic) lung disease and pulmonary embolism A reaction to medicines, such as those used for chemotherapy Anemia and too much blood loss Thyroid disorders Diabetes Alcohol and drug abuse Certain viral infections What are the symptoms of heart failure? The most common symptoms of heart failure are: Shortness of breath while resting, exercising, or lying flat Weight gain from water retention Visible swelling of the legs, ankles, and feet from fluid buildup. Sometimes the belly (abdomen)may swell. Severe tiredness (fatigue) and weakness Loss of appetite, nausea, and belly pain Cough that doesn?t go away. It can cause blood-tinged or frothy sputum. The severity of the condition and symptoms depends on how much of the heart's pumping ability has been affected. The first step in managing heart failure symptoms is knowing your baselines or what?s normal for you. How much do you weigh? Are you gaining weight but eating the same amount? How much can you do before you feel short of breath? Do your socks and shoes fit comfortably? Knowing what?s normal for you will help you see when symptoms are getting worse. Once you know your baselines, watchfor changes daily. The symptoms of heart failure may look like other health problems. Always see your healthcare provider for a diagnosis. How is heart failure diagnosed? Your healthcare provider will ask about your health history. They will give you a physical exam. You may need tests, such as: Chest X-ray. This test makes images of internal tissues, bones, and organs on film. This test shows the size and shape of your heart. Fluid in the lungs will also show up on X-ray. Echocardiogram. This test is also called an echo. It uses sound waves to assess the motion of the heart?s chambers and valves. The sound waves make an image on the screen as an ultrasound transducer is passed over the heart. This shows how well the heart pumps and relaxes. It also shows the thickness of the heart weaver, and if the heart is enlarged. It can assess heart valve function and bloodflow as well. It is one of the most useful tests because it shows a lot of information about the heart?s function. And it can help guide treatment choices. Electrocardiogram. This test records the electrical activity of the heart. It shows abnormal rhythms. It can sometimes find heart muscle damage. BNP testing. B-type natriuretic peptide (BNP) is a hormone released from the ventricles that occurs with heart failure. BNP levels are useful in the quick assessment of heart failure. The higher the BNP levels, the worse the heart failure. BNP is measured from a blood sample. Cardiac MRI. This test uses a magnetic field to make images of the heart and its nearby tissues.It can assess how the heart muscle and valves are working. How is heart failure treated? The cause of heart failure will guide the treatment plan. If heart failure is caused by a valve problem or coronary heart disease, then you may need a procedure. This may be a percutaneous coronary intervention. Or it may be surgery. If heart failure is caused by a problem, such as anemia or an infe ction, you may need medicine to treat this problem. Some causes of heart failure are reversible or short-term, such as an acute infection. For many causes of heart failure there is no cure. But many forms of treatment can help with symptoms. They are listed below. Lifestyle changes These healthy habits may help with heart failure: Controlling blood pressure Controlling blood sugar if you have diabetes Quitting smoking Maintaining a healthy weight. Losing weight, if needed Regular exercise Limiting salt and fat in your diet Not drinking alcohol or using illicit drugs Getting enough rest Reducing stress Other important lifestyle habits include getting vaccines, such as for the flu and pneumococcal pneumonia. If you have sleep problems, getting a sleep study can help find out what?s causing them. You may need to wear a C-PAP mask while you sleep. This will make sure you get enough oxygen. Too little oxygen can put stress on your heart. Medicines Many types of medicines are available for heart failure. They include: Angiotensin converting enzyme (LYNDON) inhibitors. These lower the pressure inside the blood vessels. This reduces the pressure that the heart has to pump against. They can also help the heart have better pumping ability over time. Angiotensin receptor blockers (ARB). Some people get a cough and need to stop taking LYNDON inhibitors. If that happens, an ARB may work for you. These help relax blood vessels and reduce stress on the heart. Angiotensin receptor-neprilysin inhibitors (ARNIs). This medicine combines an ARB and a neprilysin inhibitor. This can help the heart as noted above. And it can promote salt and water loss. This medicine is preferred over LYNDON inhibitors and ARBs alone. Diuretics. These reduce the amount of fluid in the body. They are among the most important medicines in helping control fluid buildup in the body. Beta-blockers. These reduce the heart?s tendency to beat faster. They can also help the heart pump better over time. Aldosterone blockers. These block the effects of the hormone aldosterone. This hormone causes sodium and water retention. Vasodilators. These include hydralazine and nitroglycerin. These widen (dilate) the blood vessels. They reduce the workload on the heart. Statins or PCSK9 inhibitors. These lower the amount of bad cholesterol in your blood. They are not used to treat heart failure. But you may take one if you have high cholesterol. Or you may take one if you have had a past heart attack and are at risk for heart failure. People who have inherited forms of high cholesterol (familial hypercholesterolemia) may get help from PCSK9 inhibitors. These medicines lower cholesterol. Sodium-glucose cotransporter-2 (SGLT2) inhibitors. They block your kidneys from reabsorbing sugar from the blood. This helps your body get rid of extra salt and water and so lowers your blood pressure. Lowering your blood pressure eases the strain on your heart. Digitalis. This medicine helps the heart beat stronger. It may help with controlling heart rate if there is an abnormal heart rhythm. Antiarrhythmics. These help keep normal heart rhythm. Sinus node I-f channel kwasi. This may be used to lower your heart rate. It may result in lessstress on your heart. This medicine is reserved for people who still have high resting heart rates despite use of beta blockers. Heart procedures These include opening blocked arteries in the heart. This brings back blood flow to the heart muscle. It helps the ventricles squeeze as they should. The procedure can be done in the cardiac catheterization lab. It uses balloons to push plaque and blood clots out of the artery. It also uses stents to keep the artery open. This can also be done by bypassing blockages during surgery (coronary artery bypass surgery). Heart valve repair or replacement In some cases, medicines can?t help heart failure caused by heart valves that are narrowed (stenosed) or leak (regurgitant). The heart valve can be repaired or replaced. This can be done as an open-heart procedure. Or it can be done by going through a small tube (catheter) that is put into an artery or vein. Pacemaker If your heart failure has also damaged your heart?s electrical wiring system, a pacemaker can be implanted. This is done to restore normal heart rate and regularity. A cardiac resynchronizing pacemaker is used when one of the natural heart wires is damaged. This is often the wire located in the left ventricle. These pacemakers use implanted left and right sided wires to restore normal timing of the heart contraction in order to improve heart function. ICD (implantable cardioverter defibrillator) When the heart muscle is damaged, dangerous heart circuits can form in the heart muscle. This leadsto heart rhythms that can cause . An ICD is implanted in the body to sense and treat these cardiac arrest rhythms. It does this by overdrive pacing the heart rhythm. Or it sends an energy shock to the heart. VAD (ventricular assist device) This device is put in the chest during a surgery. It connects to an outside motor. The motor helps pump blood from the heart to the rest of the body. VADs can allow people with advanced heart failureto improve their overall symptoms and to walk more. This can be used as a long-term treatment. Or it can be used while someone waits for a donor heart for a transplant. Heart transplant In some cases, the diseased heart must be replaced with a healthy one from a donor. Talk with your healthcare providers about the risks, benefits, and possible side effects of all treatments. What are possible complications of heart failure? Complications of heart failure include: Fluid buildup in the lungs (pulmonary edema) Kidney and liver failure Stroke Abnormal heart rhythms How daily issues affect your health Many things in your daily life impact your health. This can include transportation, money problems,housing, access to food, and children's program coordinator. If you can?t get to medical appointments, you may not receive the care you need. When money is tight, it may be difficult to pay for medicines. And living farfrom a grocery store can make it hard to buy healthy food. If you have concerns in any of these or other areas, talk with your healthcare team. They may know of local resources to assist you. Or they may have a staff person who can help. Byers points about heart failure When you have heart failure, the heart can?t pump as well as it should. Heart failure may result from health problems that affect the heart, such as high blood pressure, coronary artery disease, and heart attack. Some common symptoms are shortness of breath, weight gain, and visible swelling of the legs and ankles. A chest X-ray can help diagnose lung congestion. Treatment varies based on the cause of heart failure. Most people are advised to make certain lifestyle changes and to take certain medicines, often for life. Procedures, such as coronary intervention and surgery, may be needed. Next steps Tips to help you get the most from a visit to your healthcare provider: Know the reason for your visit and what you want to happen. Before your visit, write down questions you want answered. Bring someone with you to help you ask questions and remember what your provider tells you. At the visit, write down the name of a new diagnosis, and any new medicines, treatments, or tests. Also write down any new instructions your provider gives you. Know why a new medicine or treatment is prescribed, and how it will help you. Also know what theside effects are. Ask if your condition can be treated in other ways. Know why a test or procedure is recommended and what the results could mean. Know what to expect if you do not take the medicine or have the test or procedure. If you have a follow-up appointment, write down the date, time, and purpose for that visit. Know how you can contact your healthcare provider if you have questions, especially after officehours or on weekends. Last Reviewed Date: 2023 00:00:00 [id number] [employer]. All rights reserved. This information is not intended as a substitute for professional medical care. Always follow your healthcare professional's instructions. * Care Plan - Jose Valladares RN - 08/25/2024 4:17 PM EST Clinical Goal(s): Pt will be out of bed for all meals during this shift (08/25/24 0740) Possible barriers to meeting goal(s)/advancing plan of care: diagnosis/pain Stability of the patient: Moderately stable - low risk of patient condition declining or worsening Summary regarding today's goal(s): Not met: pt was not out of bed for all meals during this shift Recommendations: continue to encourage ambulation * Ancillary Progress Note - Daya Mcpherson, Cabin Cleaner - 08/25/2024 3:33 PM EST CARE MANAGEMENT - ADULT TRANSITION NOTE [facility] [address] Name: Tad Silvestre Location: [facility] 6B-6019/D Date: 08/25/2024 Time: 3:34 PM Risk Stratification Readmission Risk Score: 15.36 (08/25/24 1201) AM-PAC Score With Stairs : 23 (08/25/24 0740) Caregiver Information Emergency Contacts None on File Other Contacts Name Relation Home Work Mobile Daniel Silvestre Father [phone] PetrThomas Other - (no specific identity) [phone] Lorin Silvestre Sibling [phone] Transition of Care Checklist Narrative: Pt reviewed in IDT meeting. CM spoke with pt at bedside and pt goes to [facility] in [place]. Pt stating that he spoke to Olivia from [facility] earlier and she was looking for an update. Pt provided CM with a phone number for [facility] of [phone]. CM called and spoke to Nickie at [facility] and they only have Vanco at 1 gram. They will need to contact their Director to see if it will need ordered from [facility] or if it will be provided from [facility]. CM received a return phonecall from Olivia at [facility] and they will provide the Vanco if it is 1 gram, but they need an order that has the specific dose, how often with specific days, and the lab orders with trough levels. They will also need the OPAT note. CM updated 6B charge nurse and . 1403-CM spoke with Olivia from [facility] and they are closing, so without the needed information ptwill not be able to come tomorrow for dialysis. CM reviewed that [facility] will have to give pt his dialysis tomorrow and IV abx and then pt will go to the clinic on Wednesday for dialysis and IV abx. Sharonstating that she will need all the information on Wednesday. CM spoke to pt bedside and provided an update. Pt asking what time his dialysis will be tomorrow, so he can arrange transportation. CM updated 6B charge nurse and [facility] [place] and they are looking into it forpt. CM received a TT from Kim Alvarado on what orders are needed. CM updated Kim Alvarado. CM faxed needed information to [facility] in [place] at [phone]. Anticipated Transportation at Discharge: friend Patient/Family Expectations: Return home Transition Planning Additional Considerations: Care Management will continue to monitor and assist with discharge planning needs * Inpatient Ask-A-Doc - Elisabeth Malik MD - 08/25/2024 2:43 PM EST ASK-A-DOC Inpatient Note [address] [address] Name: Tad Silvestre Location: [facility] 6B-6019/D Date: 08/25/2024 Time: 2:43 PM Date of Response: 08/25/2024 Assessment: OPAT note dropped. Recommendations: Time spent: less than 5 minutes * Progress Notes - Non-Billable - Elisabeth Malik MD - 08/25/2024 2:21 PM EST DISCHARGE PROGRESS NOTE - Infectious Disease [address] [address] Name: Tad Silvestre Location: [facility] 6B-6019/D Date: 08/25/2024 Time: 2:21 PM OBJECTIVE: Most Recent Vital Signs: BP: 161 mmHg/87 mmHg (08/25/24 1153) Pulse: 57 (08/25/24 115) Resp: 16 (08/25/24 115) Temp: 36.5 C (08/25/24 115) Temp Summary: Temp Min: 36.1 C (97 F) Max: 37 C (98.6 F) SpO2: 99 % (08/25/24 115) O2 flow rate: 2 L/MIN (08/23/24 0245) Supplemental O2 Delivery: Room Air, None (08/25/24 115) Vital Signs Last 24 Hours: Systolic BP: Most Recent Systolic BP Av.3 mmHg Min: 112 mmHg Max: 161 mmHg Temperature: Most Recent Temperature Av.4 C Min: 36.11 C Max: 37 C Pulse: Pulse Av.8 Min: 54 Max: 74 Respirations: Resp Av.7 Min: 12 Max: 18 SpO2: SpO2 Av.8 % Min: 95 % Max: 99 % LABS: Labs reviewed as indicated below. MICROBIOLOGY DATA: 08/22: 2 sets of blood culture negative to date 08/22: Absolute CD4 163 IMPRESSION: 1. Presumed CRBSI - dialysis catheter exchanged on 08/22 2. HIV 3. Hx of ESRD - on hemodialysis thru tunneled catheter RECOMMENDATIONS: - Please continue IV vancomycin to be dosed after dialysis on dialysis days for a total of 14 days from day the catheter was exchanged. Anticipated end date will be Sep 05, 2024. FINAL IMPRESSION AND RECOMMENDATIONS: Syndrome Catheter-related bloodstream infection Microbiology N/A Antibiotic Vancomycin Dose per Pharmacy for Goal AUC 400-600 mg/L/hr - Vancomycin to be dosed and administered after dialysis on dialysis days only and to be adjusted per AUC End Date Sep 05, 2024 Vascular access: Not applicable Recommended followup imaging studies: Not applicable LABORATORY MONITORING: Lab Test Frequency End Date BMP CBC with diff Vancomycin level(s) for AUC monitoring Q week Sep 05, 2024 PROVIDERS: Following ID Physician ID clinic follow-up date Awali, Reda As needed * Care Plan - Dara Ramos RN - 08/25/2024 5:28 AM EST Clinical Goal(s): Pt will sleep 3 or more consecutive hours this shift. (08/24/241934) Possible barriers to meeting goal(s)/advancing plan of care: Pt's comfort level and care need requirements (VS/Meds). Stability of the patient: Moderately stable - low risk of patient condition declining or worsening Summary regarding today's goal(s): Met: Pt slept 3 consecutive hours this shift. Recommendations: Encourage good sleep hygiene (tv/lights off, PM oral care, maintain a quiet environment). Encourage frequent and progressive ambulation during waking hours. Continue to monitor pt's pain scale assessments and treat per MAR and using non-pharmacologic methods (breathing techniques, r epositioning, distractions). * Care Plan - Yamilex Magallanes RN - 08/24/2024 6:09 PM EST Clinical Goal(s): Patient will ambulate 25ft x3 this shift. (08/24/24 0755) Possible barriers to meeting goal(s)/advancing plan of care: admitting diagnosis, weakness, infection Stability of the patient: Moderately stable - low risk of patient condition declining or worsening Summary regarding today's goal(s): Met: Patient ambulated 25ft x3 this shift. Recommendations: Continue to encourage patient to get OOB to chair and to ambulate in hallway. Keepcall ybarra within reach. * Care Plan - Nallely Ballesteros RN - 08/24/2024 5:18 AM EST Clinical Goal(s): Pt will rest well between cares (08/23/242043) Possible barriers to meeting goal(s)/advancing plan of care: acuity of illness Stability of the patient: Moderately stable - low risk of patient condition declining or worsening Summary regarding today's goal(s): Met: Pt rested well between cares Recommendations: cluster cares to promote periods of rest * Care Plan - Jose Valladares RN - 08/23/2024 6:41 PM EST Clinical Goal(s): Pt will rate pain pain less than 6 during this shift (08/23/24 0742) Possible barriers to meeting goal(s)/advancing plan of care: recent surgery Stability of the patient: Moderately stable - low risk of patient condition declining or worsening Summary regarding today's goal(s): Met: pt rated pain less than 6 during this shift Recommendations: continue to assess patient using pain scale. * Inpatient Ask-A-Doc - Elisabeth Malik MD - 08/23/2024 3:13 PM EST ASK-A-DOC Inpatient Note [facility] [address] Name: Tad Silvestre Location: [facility] 6B-6019/D Date: 08/23/2024 Time: 3:13 PM Date of Response: 08/23/2024 Assessment: 1) Fever - no well identified source at this point (no system specific symptoms) 2) HIV/AIDS - last CD4 count from yesterday 08/22 was 163 3) Hx of ESRD - on hemodialysis thru tunneled catheter 4) Hx of multiple malfunctioning tunneled dialysis catheters - last exchanged on 08/22 Recommendations: - given that the patient has the rigors right after the exchange of his catheter, I would be concerned about infected tunneled dialysis catheter which might have released the bacteria into the bloodstream during exchange. I agree with both IV vancomycin and IV piperacillin tazobactam for now pending blood cultures. - though his CD4 count is below 200, my concern for opportunistic infections at this point is low especially that his CD4 count 6 months ago was more than 500. This might question his adherence to his medication but I do not think it explains the current illness. - I will come by bedside tomorrow, obtain more history, examine him and decide on further management accordingly. Time spent: 20 minutes * Inpatient Ask-A-Doc - Elisabeth Malik MD - 08/23/2024 3:13 PM EST ASK-A-DOC Inpatient Note [address] [address] Name: Tad Silvestre Location: [facility] [id number] Date: 08/23/2024 Time: 3:13 PM Date of Response: 08/23/2024 Assessment: Duplicate Recommendations: Please refer to the other note Time spent: less than 5 minutes * Ancillary Progress Note - Bria Chambers RDN - 08/23/2024 2:10 PM EST CLINICAL NUTRITION ADULT RISK ASSESSMENT [address] [address] Name: Tad Silvestre Location: [facility] 6B-6019/D Date: 08/23/2024 Time: 2:10 PM How patient was identified (select 2): date and Name Tad Silvestre is a 69 year old male being assessed for clinical nutrition risk related to reduced dietary intake and significant unintentional weight loss Primary diagnosis: rigors, ESRD on dialysis Other pertinent information: Patient presented to the hospital for exchange of hemodialysis catheter. He reports appetite has improved --consumed 80% of breakfast and lunch today. Denies chewing or swallowing difficulties, constipation/diarrhea. He has dialysis on Wednesday, , and Wednesday at [facility]. Dry weight is 170 lbs. No new weight assess since admission. Patient reports not following any specialized diet nor drinking any protein shakes. Will continue to monitor this meal intake and weight. Anthropometrics Measurements Admission weight (for dietitians): 77.1 kg Height: 175.3 cm (5' 9.02") (08/22/24 160) Weight: 77.1 kg (170 lb) (08/22/241606) BMI: 25.09 (08/22/241606) Usual Body Weight or EDW for Dialysis Patients: 170 lbs per patient Diet: 4 Choices (60 gm) Consistent Carbohydrate Heart Healthy, 2 gm Sodium Previously followed diet: regular Food Allergies/Intolerances: NKFA Oral Nutrition Supplement (ONS): none Pertinent medications/vitamins/minerals/supplements: NSS, vitamin D3, novolog, lantus, protonix RISK FACTORS: Adult Energy Intake: No significant decrease Interpretation of Weight Change: No recent/significant weight change Skin: Intact NUTRITION RISK CATEGORY: Dialysis Risk: BMI less than 23 --No Pre-dialysis serum albumin less than 3.5 gm/dl for HD or less than 3.3 gm/dl for PD -Unsure NUTRITION RISK CATEGORY: Low/Moderate (0-1 factors) Clinical Nutrition Recommendations: Diet: Continue current nutrition plan NUTRITION INTERVENTION/PLAN: Continue current care plan Will follow and adjust nutritional plan as medical condition requires. Please contact for change(s)in patient condition requiring earlier intervention. Bria Chambers MS, RDN Clinical Nutrition [facility] Available via [employer] Text [phone] * Pt Handout (on AVS) - Yamilex Wu RN - 08/23/2024 9:22 AM EST [id number] Heart Failure What is heart failure? The heart is a muscle that pumps oxygen-rich blood to all parts of the body. When you have heart failure, the heart can?t pump as well as it should. Or the heart muscle can?t relax and fill the pumping chamber with blood. Blood and fluid may back up into the lungs. This causes heart failure. And itcauses pulmonary edema. Some parts of the body also don?t get enough oxygen-rich blood. This means they can't work well. These problems lead to the symptoms of heart failure. What causes heart failure? Heart failure may result from: Heart valve disease High blood pressure Active infections of the heart valves or heart muscle, such as endocarditis A past heart attack Coronary artery disease Disease of the heart muscle (cardiomyopathy) Heart problems that are present at (congenital heart defects) Heart rhythm problems (arrhythmias) Long-term (chronic) lung disease and pulmonary embolism A reaction to medicines, such as those used for chemotherapy Anemia and too much blood loss Thyroid disorders Diabetes Alcohol and drug abuse Certain viral infections What are the symptoms of heart failure? The most common symptoms of heart failure are: Shortness of breath while resting, exercising, or lying flat Weight gain from water retention Visible swelling of the legs, ankles, and feet from fluid buildup. Sometimes the belly (abdomen)may swell. Severe tiredness (fatigue) and weakness Loss of appetite, nausea, and belly pain Cough that doesn?t go away. It can cause blood-tinged or frothy sputum. The severity of the condition and symptoms depends on how much of the heart's pumping ability has been affected. The first step in managing heart failure symptoms is knowing your baselines or what?s normal for you. How much do you weigh? Are you gaining weight but eating the same amount? How much can you do before you feel short of breath? Do your socks and shoes fit comfortably? Knowing what?s normal for you will help you see when symptoms are getting worse. Once you know your baselines, watchfor changes daily. The symptoms of heart failure may look like other health problems. Always see your healthcare provider for a diagnosis. How is heart failure diagnosed? Your healthcare provider will ask about your health history. They will give you a physical exam. You may need tests, such as: Chest X-ray. This test makes images of internal tissues, bones, and organs on film. This test shows the size and shape of your heart. Fluid in the lungs will also show up on X-ray. Echocardiogram. This test is also called an echo. It uses sound waves to assess the motion of the heart?s chambers and valves. The sound waves make an image on the screen as an ultrasound transducer is passed over the heart. This shows how well the heart pumps and relaxes. It also shows the thickness of the heart weaver, and if the heart is enlarged. It can assess heart valve function and bloodflow as well. It is one of the most useful tests because it shows a lot of information about the heart?s function. And it can help guide treatment choices. Electrocardiogram. This test records the electrical activity of the heart. It shows abnormal rhythms. It can sometimes find heart muscle damage. BNP testing. B-type natriuretic peptide (BNP) is a hormone released from the ventricles that occurs with heart failure. BNP levels are useful in the quick assessment of heart failure. The higher the BNP levels, the worse the heart failure. BNP is measured from a blood sample. Cardiac MRI. This test uses a magnetic field to make images of the heart and its nearby tissues.It can assess how the heart muscle and valves are working. How is heart failure treated? The cause of heart failure will guide the treatment plan. If heart failure is caused by a valve problem or coronary heart disease, then you may need a procedure. This may be a percutaneous coronary intervention. Or it may be surgery. If heart failure is caused by a problem, such as anemia or an infe ction, you may need medicine to treat this problem. Some causes of heart failure are reversible or short-term, such as an acute infection. For many causes of heart failure there is no cure. But many forms of treatment can help with symptoms. They are listed below. Lifestyle changes These healthy habits may help with heart failure: Controlling blood pressure Controlling blood sugar if you have diabetes Quitting smoking Maintaining a healthy weight. Losing weight, if needed Regular exercise Limiting salt and fat in your diet Not drinking alcohol or using illicit drugs Getting enough rest Reducing stress Other important lifestyle habits include getting vaccines, such as for the flu and pneumococcal pneumonia. If you have sleep problems, getting a sleep study can help find out what?s causing them. You may need to wear a C-PAP mask while you sleep. This will make sure you get enough oxygen. Too little oxygen can put stress on your heart. Medicines Many types of medicines are available for heart failure. They include: Angiotensin converting enzyme (LYNDON) inhibitors. These lower the pressure inside the blood vessels. This reduces the pressure that the heart has to pump against. They can also help the heart have better pumping ability over time. Angiotensin receptor blockers (ARB). Some people get a cough and need to stop taking LYNDON inhibitors. If that happens, an ARB may work for you. These help relax blood vessels and reduce stress on the heart. Angiotensin receptor-neprilysin inhibitors (ARNIs). This medicine combines an ARB and a neprilysin inhibitor. This can help the heart as noted above. And it can promote salt and water loss. This medicine is preferred over LYNDON inhibitors and ARBs alone. Diuretics. These reduce the amount of fluid in the body. They are among the most important medicines in helping control fluid buildup in the body. Beta-blockers. These reduce the heart?s tendency to beat faster. They can also help the heart pump better over time. Aldosterone blockers. These block the effects of the hormone aldosterone. This hormone causes sodium and water retention. Vasodilators. These include hydralazine and nitroglycerin. These widen (dilate) the blood vessels. They reduce the workload on the heart. Statins or PCSK9 inhibitors. These lower the amount of bad cholesterol in your blood. They are not used to treat heart failure. But you may take one if you have high cholesterol. Or you may take one if you have had a past heart attack and are at risk for heart failure. People who have inherited forms of high cholesterol (familial hypercholesterolemia) may get help from PCSK9 inhibitors. These medicines lower cholesterol. Sodium-glucose cotransporter-2 (SGLT2) inhibitors. They block your kidneys from reabsorbing sugar from the blood. This helps your body get rid of extra salt and water and so lowers your blood pressure. Lowering your blood pressure eases the strain on your heart. Digitalis. This medicine helps the heart beat stronger. It may help with controlling heart rate if there is an abnormal heart rhythm. Antiarrhythmics. These help keep normal heart rhythm. Sinus node I-f channel kwasi. This may be used to lower your heart rate. It may result in lessstress on your heart. This medicine is reserved for people who still have high resting heart rates despite use of beta blockers. Heart procedures These include opening blocked arteries in the heart. This brings back blood flow to the heart muscle. It helps the ventricles squeeze as they should. The procedure can be done in the cardiac catheterization lab. It uses balloons to push plaque and blood clots out of the artery. It also uses stents to keep the artery open. This can also be done by bypassing blockages during surgery (coronary artery bypass surgery). Heart valve repair or replacement In some cases, medicines can?t help heart failure caused by heart valves that are narrowed (stenosed) or leak (regurgitant). The heart valve can be repaired or replaced. This can be done as an open-heart procedure. Or it can be done by going through a small tube (catheter) that is put into an artery or vein. Pacemaker If your heart failure has also damaged your heart?s electrical wiring system, a pacemaker can be implanted. This is done to restore normal heart rate and regularity. A cardiac resynchronizing pacemaker is used when one of the natural heart wires is damaged. This is often the wire located in the left ventricle. These pacemakers use implanted left and right sided wires to restore normal timing of the heart contraction in order to improve heart function. ICD (implantable cardioverter defibrillator) When the heart muscle is damaged, dangerous heart circuits can form in the heart muscle. This leadsto heart rhythms that can cause . An ICD is implanted in the body to sense and treat these cardiac arrest rhythms. It does this by overdrive pacing the heart rhythm. Or it sends an energy shock to the heart. VAD (ventricular assist device) This device is put in the chest during a surgery. It connects to an outside motor. The motor helps pump blood from the heart to the rest of the body. VADs can allow people with advanced heart failureto improve their overall symptoms and to walk more. This can be used as a long-term treatment. Or it can be used while someone waits for a donor heart for a transplant. Heart transplant In some cases, the diseased heart must be replaced with a healthy one from a donor. Talk with your healthcare providers about the risks, benefits, and possible side effects of all treatments. What are possible complications of heart failure? Complications of heart failure include: Fluid buildup in the lungs (pulmonary edema) Kidney and liver failure Stroke Abnormal heart rhythms How daily issues affect your health Many things in your daily life impact your health. This can include transportation, money problems,housing, access to food, and children's program coordinator. If you can?t get to medical appointments, you may not receive the care you need. When money is tight, it may be difficult to pay for medicines. And living farfrom a grocery store can make it hard to buy healthy food. If you have concerns in any of these or other areas, talk with your healthcare team. They may know of local resources to assist you. Or they may have a staff person who can help. Byers points about heart failure When you have heart failure, the heart can?t pump as well as it should. Heart failure may result from health problems that affect the heart, such as high blood pressure, coronary artery disease, and heart attack. Some common symptoms are shortness of breath, weight gain, and visible swelling of the legs and ankles. A chest X-ray can help diagnose lung congestion. Treatment varies based on the cause of heart failure. Most people are advised to make certain lifestyle changes and to take certain medicines, often for life. Procedures, such as coronary intervention and surgery, may be needed. Next steps Tips to help you get the most from a visit to your healthcare provider: Know the reason for your visit and what you want to happen. Before your visit, write down questions you want answered. Bring someone with you to help you ask questions and remember what your provider tells you. At the visit, write down the name of a new diagnosis, and any new medicines, treatments, or tests. Also write down any new instructions your provider gives you. Know why a new medicine or treatment is prescribed, and how it will help you. Also know what theside effects are. Ask if your condition can be treated in other ways. Know why a test or procedure is recommended and what the results could mean. Know what to expect if you do not take the medicine or have the test or procedure. If you have a follow-up appointment, write down the date, time, and purpose for that visit. Know how you can contact your healthcare provider if you have questions, especially after officehours or on weekends. Last Reviewed Date: 2023 00:00:00 [id number] [employer]. All rights reserved. This information is not intended as a substitute for professional medical care. Always follow your healthcare professional's instructions. * Pt Handout (on AVS) - Josselin Arzate RN - 08/23/2024 8:49 AM EST Images from the original note were not included. [id number] Sepsis Sepsis is a very serious condition. It happens when your body responds with widespread inflammationto a severe infection, usually caused by bacteria. Sometimes it may be caused by a virus. Sepsis can be deadly. Blood pressure may drop. The lungs, liver, and kidneys may start to fail. Sepsis is a medical emergency. If someone has symptoms of sepsis, call 911 right away. Risk factors Those most at risk for sepsis are: Infants or older adults People who have an illness that weakens their immune system, such as cancer, AIDS, or diabetes People being treated with chemotherapy medicines, high-dose steroids, or radiation, which weakenthe immune system People who have had an organ transplant People with long-term (chronic) lung, kidney, liver, or heart disease People with a very severe infection, such as pneumonia, meningitis, or a urinary tract infection When to call 911 Sepsis is a medical emergency. Call 911 right away if you have a fever with any of these symptoms: Chills and shaking Fast heartbeat and breathing Trouble breathing Severe nausea or uncontrolled vomiting Confusion, disorientation, drowsiness, or dizziness Decreased urination Severe pain, including in the back or joints What to expect in the emergency room To treat sepsis, antibiotics and fluids may by given through an intravenous (IV) line. Blood and urine tests are done to look for bacteria. They also check for organ failure. Blood, urine, or sputum cultures may be taken. The samples are sent to a lab. They are placed chalo special container. Any bacteria should grow in 24 to 48 hours. X-rays or other imaging tests may be done. A person with sepsis will be admitted to the hospital and treated with antibiotics. Treatment will also include oxygen and IV (intravenous) fluids and other medicines as needed. The person will be watched very closely, usually in the intensive care unit (ICU). Last Reviewed Date: 2023 00:00:00 [id number] [employer]. All rights reserved. This information is not intended as a substitute for professional medical care. Always follow your healthcare professional's instructions. * Pt Handout (on AVS) - Josselin Arzate RN - 08/23/2024 8:48 AM EST [id number] Discharge Instructions for Chronic Kidney Disease (CKD) The job of the kidneys is to remove waste products and extra water from the blood. When the kidneysdon't work as they should, waste products start to build up in the blood. This is called chronic kidney disease (CKD). CKD means that you have kidney damage or a decrease in kidney function lasting at least 3 months. CKD allows extra water, waste, and toxins to build up in the body. This can become life-threatening over time. You might need dialysis or a kidney transplant to stay alive. This most severe form is called end-stage renal disease. Chronic kidney disease can happen because of many things. These include: Infections Diabetes High blood pressure Kidney stones Circulation problems Reactions to medicine Having kidney disease means making many changes in your life. Learn as much as you can about it so that you can better adjust to these changes. It's important to remember that the main goal of treatment is to stop CKD from progressing to kidney failure. Treatments may vary based on the progression of CKD. Always follow your healthcare provider's directions on how to manage your condition. Below are some things you can do to help you manage CKD. Changes to what you eat and drink When you have CKD, your body can?t process certain things as well. You need to make changes to whatyou eat and drink. Eat small meals often that are high in fiber and calories. You may be told to limit how much fluid you drink. Talk with your healthcare provider before making any changes to what you eat and drink. Any kind ofdietary change can feel overwhelming and confusing. You can ask your provider to refer you to a registered dietitian. This person can help you plan and manage the changes to your diet. Reduce your salt (sodium) You may be told to have 1,500 mg or less of sodium daily. This section will help you make that happen. When shopping for foods: Buy fresh meats and fish, and fresh vegetables and fruits. These don?t have added sodium. Don?t buy processed foods. These include frozen and pre-made meals, canned meat and fish, and lunch meats. Don?t buy salty foods such as cheese, pickled foods, or salty snacks. Read all food labels to check sodium levels. Don?t eat fast food. It's often high in sodium. When cooking at home: Don't add salt to your food while cooking or before eating at the table. Season foods with fresh herbs, garlic, onions, citrus, and flavored vinegar. Use salt-free spiceblends. Don't use salt substitutes that are high in potassium. Ask your healthcare provider or a dietitian which salt substitutes to use. Other sources of hidden sodium include: Softened water. Don?t drink water that has been through a water softener. It has sodium in it. Bottled water. Some types of mineral water have sodium. Make sure to read labels. Some medicines. Some iyin-oaz-[id number] (OTC) medicines that have sodium bicarbonate or sodium carbonate. Read labels carefully. If you aren't certain about a medicine, talk with the pharmacist before using it. Watch your potassium You may be told to eat less than 1,500 mg to 2,700 mg of potassium daily. To stay on target: Check all food labels to see how much potassium is in the product. Always drain canned foods before serving. This includes canned vegetables, fruits, and meats. Don't eat whole-grain bread, wheat bran, or granola. Don't eat milk, buttermilk, or yogurt. Don't eat nuts, seeds, peanut butter, dried beans, or peas. Don't eat fig cookies, chocolate, or molasses. Don't use salt substitutes that are high in potassium. Ask your healthcare provider or a dietitian which salt substitutes to use. Limit your protein Based on your condition, your healthcare provider will talk with you about why you should limit protein in your diet. To do this: Eat less meat, milk products, yogurt, eggs, and cheese. Check all food labels to see how much protein is in the product. Avoid phosphorus When you have CKD, your kidneys can?t remove phosphorus from your blood very well. High phosphorus levels can cause damage to your body and make your bones weak. To avoid phosphorus in your diet: Don't drink beer, cocoa, dark rachael, lorenzo, chocolate drinks, or canned ice teas. Don't eat cheese, milk, ice cream, pudding, yogurt, or caramel. Don't eat liver (beef, chicken), organ meats, oysters, crayfish, or sardines. Don't eat beans (soy, kidney, black, garbanzo, and northern), peas (chick and split), bran cereals, or nuts. General home care Try not to wear yourself out or get too tired. Get plenty of rest and get more sleep at night. Bend and move your legs often. This helps to prevent blood clots when you rest for a long time. Weigh yourself every day. Do this at the same time of day and in the same kind of clothes. Keep a record of your daily weights. Take your medicines exactly as directed. Keep all medical appointments. Take steps to control high blood pressure or diabetes. Talk with your healthcare provider for advice. Talk with your provider about dialysis. This procedure may help if your chronic kidney disease is progressing to end stage renal disease. Follow-up care Follow up with your healthcare provider, or as advised. When to call your healthcare provider Call your provider right away if you have any of these: Trouble eating or drinking Weight loss of more than 2 pounds in 24 hours or more than 5 pounds in 7 days Weight gain of more than 3 pounds in 2 days or 5 pounds in 3 days Little or no urine output Trouble breathing Muscle aches Fever of 100.4F ( 38C) or higher, or as advised by your provider Blood in your urine or stool Bloody fluid leaking from your nose, mouth, or ears Severe headache or a seizure Vomiting Swollen legs or ankles Feeling depressed or anxious Call 911 Call 911 right away if you have: Chest pain Last Reviewed Date: 2022 00:00:00 [id number] [employer]. All rights reserved. This information is not intended as a substitute for professional medical care. Always follow your healthcare professional's instructions. * Care Plan - Nallely Ballesteros RN - 08/23/2024 5:07 AM EST Clinical Goal(s): Pt's temp will be WNL this shift (08/22/241936) Possible barriers to meeting goal(s)/advancing plan of care: infection Stability of the patient: Moderately stable - low risk of patient condition declining or worsening Summary regarding today's goal(s): Not Met: Pt had temp of 38.1 this shift Recommendations: continue with plan of care. Treat fevers with antipyretics * Sedation Note - Damion Barber MD - 08/22/2024 1:33 PM EST Post Sedation Evaluation: Cardiovascular status: acceptable Level of consciousness: awake and alert Airway patency: patent Distress - NAD Hydration status - well hydrated Nausea/vomiting - not present Pain Evaluation Pain Assessment Flowsheet Row Most Recent Value Pain Assessment Scale [facility] Adult Scale 0-10 Pain Score 0 (no pain) Vital Signs: Temp: 36.2 C (97.2 F) (08/22 1127) BP: 113/69 (08/22 1321) Pulse: 68 (08/22 1321) Resp: 14 (08/22 132) SpO2: 96 % (08/22 1321) I have personally examined the patient, prescribed the necessary medications as charted, and certify that Tad Silvestre is recovered for safe discharge from my face to face care. * Pre-Sedation Assessment - Damion Barber MD - 08/22/2024 12:46 PM EST PRE-SEDATION ASSESSMENT PRE-SEDATION ASSESSMENT: Hemocath Exchange Level of sedation planned: Moderate Patient's allergies reviewed: Yes H&P Review / Interval Note Documentation: There is no H&P on file. Difficulty with sedation / anesthesia: No Sleep apnea: No History of snoring: No History of difficult intubation: No Decreased ROM neck flexion/extension: No Tracheal deviation: No Decreased ability to open mouth / TMJ: No Loose teeth / dentures / partial: No Congenital deformities / abnormalities: No Dysphagia: No Mallampati Classification: II - soft palate, uvula, fauces visible Chest: Clear Heart: Regular Rhythm ASA Risk Stratification ([facility]): ASA 2 - Mild systemic disease, no functional limitations The patient was identified and the procedure verified: Yes The patient was reevaluated immediately prior to the sedation: 08/22/2024 12:46 PM documented in this encounter Plan of Treatment Upcoming Encounters Date Type Department Care Team (Late st Contact Info) Description 09/01/2024 3:20 PM EST Office Visit [facility] [address] [place] [address] Antonio Colon MD [address] [place] [address] 09/19/2024 3:30 PM EST Office Visit Cardiology, [facility] [address] [place] [address] Davy Mota MD [address] [place] [address] 10/13/2024 9:00 AM EST Office Visit [facility] [address] [facility] [place] [address] Antonio Colon MD [address] [place] [address] 10/25/2024 12:30 PM EST Office Visit Vascular Surgery, [facility] [address] [place] [address] Benjamin Cartagena MD [address] [place] [address] Pending Results Name Type Priority Associated Diagnoses Date /Time CULTURE, BLOOD Lab STAT 08/22/2024 5:13 PM EST CULTURE, BLOOD Lab STAT 08/22/2024 5:13 PM EST Scheduled Orders Name Type Priority Associated Diagnoses Orde r Schedule MRSA SCREEN, PCR Lab Routine One Time for 1 Occurrences starting 08/22/2024 until 08/22/2024 EKG EKG Routine Hypothermia One Time for 1 Occurrences starting 08/22/2024 until 08/22/2024 CBC WITH WBC DIFFERENTIAL Lab Routine HIV disease ([facility]) Every Week for 2 Occurrences starting 08/25/2024 until 08/25/2025 BASIC METABOLIC PANEL Lab Routine HIV disease ([facility]) Every Week for 2 Occurrences starting 08/25/2024 until 08/25/2025 VANCOMYCIN TROUGH Lab Routine HIV disease ([facility]) Every Week for 2 Occurrences starting 08/25/2024 until 08/25/2025 Scheduled Procedures Name Priority Associated Diagnoses Date/Ti [...] 01/07/2024, 02/19/2023, 02/19/2023 AAA Screening Completed 05/08/2024, 051 09/2021, 01/29/2020, Additional history exists Nephrology Referral Discontinued 05/08/2024 Influenza Vaccine (FLU shot) Completed 06/28/2024, 08/12/2023, 09/09/2022, Additional history exists HPV (Gardasil) Vaccine Aged Out No lo nger eligible based on patient's age to complete this topic documented as of this encounter [employer] Not on filedocumented as of this encounter Procedures Procedure Name Priority Date/Time Associated Diagnosis Comments GLUCOSE METER, POINT OF CARE [facility] 08/26/2024 12:09 PM EST GLUCOSE METER, POINT OF CARE [facility] 08/26/2024 7:24 AM EST VANCOMYCIN RANDOM Timed 08/26/2024 6:0 1 AM EST BASIC METABOLIC PANEL Routine 08/26/2024 6:01 AM EST CBC Routine 08/26/2024 6:01 AM EST GLUCOSE METER, POINT OF CARE [facility] 08/25/2024 9:58 PM EST GLUCOSE METER, POINT OF CARE [facility] 08/25/2024 5:46 PM EST GLUCOSE METER, POINT OF CARE [facility] 08/25/2024 4:01 PM EST GLUCOSE METER, POINT OF CARE [facility] 08/25/2024 3:39 PM EST GLUCOSE METER, POINT OF CARE [facility] 08/25/2024 11:30 AM EST GLUCOSE METER, POINT OF CARE [facility] 08/25/2024 7:59 AM EST BASIC METABOLIC PANEL Routine 08/25/2024 6:45 AM EST CBC Routine 08/25/2024 6:45 AM EST GLUCOSE METER, POINT OF CARE [facility] 08/24/2024 9:08 PM EST URINALYSIS, REFLEX TO CULTURE Routine 08/24/2024 5:23 PM EST URINALYSIS, REFLEX TO CULTURE (CUP ONLY) Routine 08/24/2024 5:23 PM EST URINALYSIS, REFLEX TO CULTURE (NOT FOR NEUTROPENIC PATIENTS) Routine 08/24/2024 5:23 PM EST GLUCOSE METER, POINT OF CARE JUDIT 08/24/2024 4:47 PM EST SARS-COV-2 (COVID-19), NAAT STAT 08/24/2024 4:10 PM EST MRSA SCREEN, PCR Routine 08/24/2024 4:10 PM EST GLUCOSE METER, POINT OF CARE JUDIT 08/24/2024 1:50 PM EST GLUCOSE METER, POINT OF CARE JUDIT 08/24/2024 7:57 AM EST PROCALCITONIN Add-on 08/24/2024 6:26 AM EST VANCOMYCIN RANDOM Timed 08/24/2024 6:2 6 AM EST BASIC METABOLIC PANEL Routine 08/24/2024 6:26 AM EST CBC Routine 08/24/2024 6:26 AM EST GLUCOSE METER, POINT OF CARE JUDIT 08/24/2024 5:50 AM EST GLUCOSE METER, POINT OF CARE JUDIT 08/23/2024 11:50 PM EST GLUCOSE METER, POINT OF CARE JUDIT 08/23/2024 6:41 PM EST GLUCOSE METER, POINT OF CARE JUDIT 08/23/2024 4:34 PM EST GLUCOSE METER, POINT OF CARE JUDIT 08/23/2024 11:30 AM EST GLUCOSE METER, POINT OF CARE JUDIT 08/23/2024 7:48 AM EST VANCOMYCIN RANDOM Timed 08/23/2024 6:2 5 AM EST COMPREHENSIVE METABOLIC PANEL Routine 08/23/2024 6:25 AM EST CBC Routine 08/23/2024 6:25 AM EST GLUCOSE METER, POINT OF CARE JUDIT 08/22/2024 9:49 PM EST GLUCOSE METER, POINT OF CARE JUDIT 08/22/2024 9:28 PM EST XR CHEST 2 VIEWS Routine 08/22/2024 6:31 PM EST Hypothermia, not associated with low environmental temperature Hypoxemia DIFFERENTIAL, AUTOMATED STAT 08/22/2024 6:21 PM EST CBC STAT 08/22/2024 6:21 PM EST LACTATE STAT 08/22/2024 6:21 PM EST CBC STAT 08/22/2024 6:21 PM EST CULTURE, BLOOD STAT 08/22/2024 5:13 PM EST CULTURE, BLOOD STAT 08/22/2024 5:13 PM EST GLUCOSE METER, POINT OF CARE JUDIT 08/22/2024 4:29 PM EST CD4P T-CELL SUBSET PANEL, FLOW CYTOMETRY Routine 08/22/2024 4:12 PM EST WBC/%LYMPH, FLOW CYTOMETRY Routine 08/22/2024 4:12 PM EST COMPREHENSIVE METABOLIC PANEL Routine 08/22/2024 4:12 PM EST D-DIMER Add-on 08/22/2024 4:12 PM EST CK Add-on 08/22/2024 4:12 PM EST CD4P T-CELL SUBSET PANEL, FLOW CYTOMETRY PANEL Routine 08/22/2024 4:12 PM EST PT INR Routine 08/22/2024 4:12 PM EST LIPASE Add-on 08/22/2024 4:12 PM EST LACTATE STAT 08/22/2024 4:12 PM EST APTT Routine 08/22/2024 4:12 PM EST T3, FREE Routine 08/22/2024 4:12 PM EST TSH Routine 08/22/2024 4:12 PM EST T4, FREE Routine 08/22/2024 4:12 PM EST MAGNESIUM Routine 08/22/2024 4:12 PM EST ANEMIA REFLEX CHEMISTRY HOLD Routine 08/22/2024 3:34 PM EST EXTRA GREEN TOP WITH GEL Routine 08/22/2024 3:34 PM EST EXTRA TUBES Routine 08/22/2024 3:34 PM EST ANEMIA CBC Routine 08/22/2024 3:34 PM EST DIFFERENTIAL, AUTOMATED Routine 08/22/2024 3:34 PM EST DIFFERENTIAL, AUTOMATED Routine 08/22/2024 3:34 PM EST RETICULOCYTE PANEL Routine 08/22/2024 3: 34 PM EST HEMOGLOBIN A1C Add-on 08/22/2024 3:34 PM EST T3, TOTAL Routine 08/22/2024 3:34 PM EST CRP (INFLAMMATORY MARKER) Add-on 08/22/2024 3:34 PM EST HIV-1 RNA QUANTITATIVE Routine 3:34 PM EST IRON SCREEN, INCLUDING TIBC Routine 08/22/2024 3:34 PM EST ERYTHROCYTE SEDIMENTATION RATE (ESR) Add-on 08/22/2024 3:34 PM EST DIFFERENTIAL, TECHNOLOGIST REVIEW Routine 08/22/2024 3:34 PM EST T4, TOTAL Routine 08/22/2024 3:34 PM EST FERRITIN Routine 08/22/2024 3:34 PM EST GLUCOSE METER, POINT OF CARE JUDIT 08/22/2024 1:51 PM EST IR INTERVENTIONAL RADIOLOGY PROCEDURE IN OR Routine 08/22/2024 1:16 PM EST REPLACE,COMP,MARCUS CENT ACC DEV 08/22/2024 12:35 PM EST Complication associated with dialysis catheter GLUCOSE METER, POINT OF CARE JUDIT 08/22/2024 11:59 AM EST documented in this encounter Results * GLUCOSE METER, POINT OF CARE (08/26/2024 12:09 PM EST) GLUCOSE - POCT 117 70 - 120 mg/dL 08/26/2024 12:12 PM EST [facility] Blood Whole blood specimen / Unknown 08/26/2024 12:09 PM EST 08/26/2024 12:12 PM EST us Sam Jackson MD LAB POINT OF CARE TE ST DOCKED DEVICE UNSOLICITED RESULTS Final Result [facility] [address] [place] [address] * (ABNORMAL) GLUCOSE METER, POINT OF CARE (08/26/2024 7:24 AM EST) GLUCOSE - POCT 161(H) 70 - 120 mg/dL 08/26/2024 7:54 AM EST [facility] Blood Whole blood specimen / Unknown 08/26/2024 7:24 AM EST 08/26/2024 7:54 AM EST Sam Jackson MD LAB POINT OF CARE TE ST DOCKED DEVICE UNSOLICITED RESULTS Final Result [facility] [address] [place] [address] * (ABNORMAL) CBC (08/26/2024 6:01 AM EST) WBC 5.01 4.00 - 10.80 K/uL 08/26/2024 6:28 AM EST LABORATORY [facility] RBC 3.87 4.50 - 5.25 M/uL 08/26/2024 6:28 AM EST LABORATORY GL HGB 10.8(L) 14.0 - 16.8 g/dL 08/26/2024 6:28 AM EST LABORATORY [facility] HCT 34.0(L) 40.0 - 48.4 % 08/26/2024 6:28 AM EST LABORATORY [facility] MCV 87.9 82.0 - 99.5 fL 08/26/2024 6:28 AM EST LABORATORY [facility] MCH 27.9 27.0 - 34.0 pg 08/26/2024 6:28 AM EST LABORATORY GL MCHC 31.8 32.0 - 36.0 g/dL 08/26/2024 6:28 AM EST LABORATORY [facility] RDW 13.2 11.5 - 15.5 % 08/26/2024 6:28 AM EST LABORATORY [facility] PLT 174 140 - 400 K/uL 08/26/2024 6:28 AM EST LABORATORY [facility] MPV 8.6 6.6 - 11.1 fL 08/26/2024 6:28 AM EST LABORATORY [facility] nRBCs 0 <=0 /100 WBCs 08/26/2024 6:28 AM EST LAB[facility]ATORY [facility] Blood Venous blood specimen / Unknown Venipuncture / Unknown 08/26/2024 6:01 AM EST 08/26/2024 6:21 AM EST us Angelica Hall MD, PhD LAB BLOOD ORDERABLES Final Result Performing Organization Address City/[facility]/ZIP Co de Phone Number LABORATORY [address] [address] * (ABNORMAL) BASIC METABOLIC PANEL (08/26/2024 6:01 AM EST) BUN 24(H) 6 - 20 mg/dL 08/26/2024 6:50 AM EST LABORATORY [facility] CREATININE 3.7(H) 0.6 - 1.2 mg/dL 08/26/2024 6:50 AM EST LABORATORY [facility] EGFR 17(L) >=60 mL/min 08/26/2024 6:50 AM EST LABORATORY [facility] Comment:eGFR is calculated b ased on the CKD-EPI 2020 equation. SODIUM 134(L) 135 - 146 mmol/L 08/26/2024 6:50 AM EST LABORATORY [facility] POTASSIUM 4.3 3.5 - 5.1 mmol/L 08/26/2024 6:50 AM EST LABORATORY [facility] CHLORIDE 102 98 - 107 mmol/L 08/26/2024 6:50 AM EST LABORATORY [facility] CO2 21(L) 22 - 32 mmol/L 08/26/2024 6:50 AM EST LABORATORY [facility] ANION GAP 11 7 - 15 mmol/L 08/26/2024 6:50 AM EST LABORATORY [facility] GLUCOSE 168(H) 70 - 120 mg/dL 08/26/2024 6:50 AM EST LABORATORY [facility] CALCIUM 9.3 8.4 - 10.2 mg/dL 08/26/2024 6:50 AM EST LAB[facility]ATORY [facility] Blood Venous blood specimen / Unknown Venipuncture / Unknown 08/26/2024 6:01 AM EST 08/26/2024 6:21 AM EST Angelica Hall MD, PhD LAB BLOOD ORDERABLES Final Result Performing Organization Address City/[facility]/ZIP Co de Phone Number LABORATORY [address] [address] * VANCOMYCIN RANDOM (08/26/2024 6:01 AM EST) Vancomycin Random 15.8 10.0 - 40.0 ug/mL 08/26/2024 6:45 AM EST [facility] Blood Venous blood specimen / Unknown Venipuncture / Unknown 08/26/2024 6:01 AM EST 08/26/2024 6:21 AM EST Angelica Hall MD, PhD LAB BLOOD ORDERABLES Final Result Performing Organization Address City/[facility]/ZIP Co de Phone Number LABORATORY [address] [address] * (ABNORMAL) GLUCOSE METER, POINT OF CARE (08/25/2024 9:58 PM EST) GLUCOSE - POCT 208(H) 70 - 120 mg/dL 08/25/2024 10:28 PM EST [facility] Blood Whole blood specimen / Unknown 08/25/2024 9:58 PM EST 08/25/2024 10:28 PM EST Sam Jackson MD LAB POINT OF CARE TE ST DOCKED DEVICE UNSOLICITED RESULTS Final Result Performing Organization Address [facility] de Phone Number [facility] [address] [place] [phone] * (ABNORMAL) GLUCOSE METER, POINT OF CARE (08/25/2024 5:46 PM EST) GLUCOSE - POCT 137(H) 70 - 120 mg/dL 08/25/2024 5:49 PM EST [facility] Blood Whole blood specimen / Unknown 08/25/2024 5:46 PM EST 08/25/2024 5:49 PM EST Angelica Hall MD, PhD LAB POINT OF CARE TEST DOCKED DEVICE UNSOLICITED RESULTS Final Result Performing Organization Address [facility] de Phone Number [facility] [address] [place] [id number] * GLUCOSE METER, POINT OF CARE (08/25/2024 4:01 PM EST) GLUCOSE - POCT 75 70 - 120 mg/dL 08/25/2024 4:05 PM EST [facility] Blood Whole blood specimen / Unknown 08/25/2024 4:01 PM EST 08/25/2024 4:04 PM EST Angelica Hall MD, PhD LAB POINT OF CARE TEST DOCKED DEVICE UNSOLICITED RESULTS Final Result Performing Organization Address [facility]/ZIP Co de Phone Number [facility] [address] [place] [address] * GLUCOSE METER, POINT OF CARE (08/25/2024 3:39 PM EST) [facility] GLUCOSE - POCT 70 70 - 120 mg/dL 08/25/2024 3:52 PM [facility] Blood Whole blood specimen / Unknown 08/25/2024 3:39 PM EST 08/25/2024 3:52 PM EST Angelica Hall MD, PhD LAB POINT OF CARE TEST DOCKED DEVICE UNSOLICITED RESULTS Final Result Performing Organization Address [facility] Phone Number [facility] [address] [place] [phone] * (ABNORMAL) GLUCOSE METER, POINT OF CARE (08/25/2024 11:30 AM EST) [facility] GLUCOSE - POCT 291(H) 70 - 120 mg/dL 08/25/2024 12:01 PM [facility] Blood Whole blood specimen / Unknown 08/25/2024 11:30 AM EST 08/25/2024 12:01 PM EST Angelica Hall MD, PhD LAB POINT OF CARE TEST DOCKED DEVICE UNSOLICITED RESULTS Final Result Performing Organization Address [facility] de Phone Number [facility] [address] [place] [address] * (ABNORMAL) GLUCOSE METER, POINT OF CARE (08/25/2024 7:59 AM EST) GLUCOSE - POCT 152(H) 70 - 120 mg/dL 08/25/2024 8:25 AM EST [facility] Blood Whole blood specimen / Unknown 08/25/2024 7:59 AM EST 08/25/2024 8:25 AM EST us Angelica Hall MD, PhD LAB POINT OF CARE TEST DOCKED DEVICE UNSOLICITED RESULTS Final Result [facility] [address] [place] [address] * (ABNORMAL) CBC (08/25/2024 6:45 AM EST) [facility] WBC 4.32 4.00 - 10.80 K/uL 08/25/2024 6:57 AM EST LABORATORY GL RBC 3.79 4.50 - 5.25 M/uL 08/25/2024 6:57 AM EST LABORATORY GL HGB 10.7(L) 14.0 - 16.8 g/dL 08/25/2024 6:57 AM EST LABORATORY [facility] HCT 32.8(L) 40.0 - 48.4 % 08/25/2024 6:57 AM EST LABORATORY GL MCV 86.5 82.0 - 99.5 fL 08/25/2024 6:57 AM EST LABORATORY GL MCH 28.2 27.0 - 34.0 pg 08/25/2024 6:57 AM EST LABORATORY GL MCHC 32.6 32.0 - 36.0 g/dL 08/25/2024 6:57 AM EST LABORATORY [facility] RDW 13.4 11.5 - 15.5 % 08/25/2024 6:57 AM EST LABORATORY GL PLT 165 140 - 400 K/uL 08/25/2024 6:57 AM EST LABORATORY GL MPV 8.6 6.6 - 11.1 fL 08/25/2024 6:57 AM EST LABORATORY GL nRBCs 0 <=0 /100 WBCs 08/25/2024 6:57 AM EST LABORATORY GL Blood Venous blood specimen / Unknown Venipuncture / Unknown 08/25/2024 6:45 AM EST 08/25/2024 6:48 AM EST us Angelica Hall MD, PhD LAB BLOOD ORDERABLES Final Result LABORATORY [address] [address] * (ABNORMAL) BASIC METABOLIC PANEL (08/25/2024 6:45 AM EST) BUN 18 6 - 20 mg/dL 08/25/2024 7:08 AM EST LABORATORY GL CREATININE 3.2(H) 0.6 - 1.2 mg/dL 08/25/2024 7:08 AM EST LABORATORY [facility] EGFR 20(L) >=60 mL/min 08/25/2024 7:08 AM EST LABORATORY [facility] Comment:eGFR is calculated b ased on the CKD-EPI 2020 equation. SODIUM 139 135 - 146 mmol/L 08/25/2024 7:08 AM EST LABORATORY [facility] POTASSIUM 4.6 3.5 - 5.1 mmol/L 08/25/2024 7:08 AM EST LABORATORY [facility] Comment:Results may be false ly elevated due to hemolysis. CHLORIDE 102 98 - 107 mmol/L 08/25/2024 7:08 AM EST LABORATORY [facility] CO2 26 22 - 32 mmol/L 08/25/2024 7:08 AM EST LABORATORY [facility] ANION GAP 11 7 - 15 mmol/L 08/25/2024 7:08 AM EST LABORATORY [facility] GLUCOSE 174(H) 70 - 120 mg/dL 08/25/2024 7:08 AM EST LABORATORY [facility] CALCIUM 9.2 8.4 - 10.2 mg/dL 08/25/2024 7:08 AM EST LABORATORY [facility] Blood Venous blood specimen / Unknown Venipuncture / Unknown 08/25/2024 6:45 AM EST 08/25/2024 6:48 AM EST us Angelica Hall MD, PhD LAB BLOOD ORDERABLES Final Result Performing Organization Address City/[facility]/ZIP Co de Phone Number LABORATORY [address] [address] * (ABNORMAL) GLUCOSE METER, POINT OF CARE (08/24/2024 9:08 PM EST) GLUCOSE - POCT 247(H) 70 - 120 mg/dL 08/24/2024 9:39 PM EST [facility] Blood Whole blood specimen / Unknown 08/24/2024 9:08 PM EST 08/24/2024 9:39 PM EST us Angelica Hall MD, PhD LAB POINT OF CARE TEST DOCKED DEVICE UNSOLICITED RESULTS Final Result [facility] [address] [place] [id number] * (ABNORMAL) URINALYSIS, REFLEX TO CULTURE (08/24/2024 5:23 PM EST) Color, Urine Yellow Light Yellow, Yellow, Dark Yellow 08/24/2024 6:18 PM EST LAB[facility]ATORY [facility] Clarity, Urine Clear Clear 08/24/2024 6:18 PM EST LAB[facility]ATORY [facility] Glucose, Urine 250(A) Negative mg/dL 08/24/2024 6:18 PM EST LAB[facility]ATORY [facility] Bilirubin, Urine Negative Negative 08/24/2024 6:18 PM EST LAB[facility]ATORY [facility] Ketone, Urine Negative Negative mg/dL 08/24/2024 6:18 PM EST LABORATORY [facility] Specific [place], Urine 1.008 1.003 - 1.030 08/24/2024 6:18 PM EST LAB[facility]ATORY [facility] Blood, Urine Trace(A) Negative 08/24/2024 6:18 PM EST LABORATORY [facility] pH, Urine 8.0(H) 5.0 - 7.5 Units 08/24/2024 6:18 PM EST [facility]ORY [facility] Protein, Urine 100(A) Negative mg/dL 08/24/2024 6:18 PM EST LAB[facility]ATORY [facility] Urobilinogen, Urine 0.2 0.2, 1.0 mg/dL 08/24/2024 6:18 PM EST LAB[facility]ORY [facility] Nitrite, Urine Negative Negative 08/24/2024 6:18 PM EST LAB[facility]ATORY [facility] Esterase, Urine Negative Negative 08/24/2024 6:18 PM EST LABORATORY [facility] RBC, Urine 0-2 0 - 2 /HPF 08/24/2024 6:18 PM EST [facility] WBC, Urine 0-2 0 - 2 /HPF 08/24/2024 6:18 PM EST [facility]ORY [facility] Bacteria, Urine 0-25 0 - 25 /HPF 08/24/2024 6:18 PM EST [facility]ORY [facility] Culture, Urine 08/24/2024 6:18 PM EST [facility] Comment:Culture not indicate d by urinalysis results Urine Urine specimen obtained by clean catch procedure / Unknown Non-blood Collection / Unknown 08/24/2024 5:23 PM EST 08/24/2024 5:31 PM EST Jaycob Horton MD LAB URINE ORDERABLES Final Resul t Performing Organization Address City/[facility]/ZIP Co de Phone Number LABORATORY [address] [phone] * URINALYSIS, REFLEX TO CULTURE (CUP ONLY) (08/24/2024 5:23 PM EST) Urinalysis, Reflex to Culture Specimen Specimen collected and received 08/24/2024 7:01 PM EST [facility] Urine Urine specimen obtained by clean catch procedure / Unknown Non-blood Collection / Unknown 08/24/2024 5:23 PM EST 08/24/2024 5:30 PM EST Jaycob Horton MD LAB URINE ORDERABLES Final Resul t Performing Organization Address City/[facility]/ZIP Co de Phone Number LABORATORY [address] [address] * (ABNORMAL) GLUCOSE METER, POINT OF CARE (08/24/2024 4:47 PM EST) GLUCOSE - POCT 199(H) 70 - 120 mg/dL 08/24/2024 4:55 PM EST [facility] Blood Whole blood specimen / Unknown 08/24/2024 4:47 PM EST 08/24/2024 4:55 PM EST Angelica Hall MD, PhD LAB POINT OF CARE TEST DOCKED DEVICE UNSOLICITED RESULTS Final Result Performing Organization Address [facility] Co de Phone Number [facility] [address] [place] [address] * SARS-COV-2 (COVID-19), NAAT (08/24/2024 4:10 PM EST) SARS-CoV-2 (COVID-19) Result Negative Negative 08/24/2024 5:06 PM EST [facility]ATORY [facility] Comment: 2019 Novel Coronavirus not detected. This express test was developed and its performance characteristics determined by [facility]. It has not been cleared or approved [...] (RT-PCR) test, or a Centers for Disease Control- acceptable equivalent. The test is performed in a high complexity Clinical Laboratory Improvement Amendments-(CLIA) certified laboratory. The test is acceptable for SARS-CoV-2 diagnosis, surveillance, and travel within the [place] and to most countries. Please check with local testing authorities about requirements before travel. The validation of bronchial specimens, tracheal aspirates, and sputum for this assay was developed and performance characteristics determined by [facility]. The validation of alternate specimen types has not been cleared or approved by the U.S. Food and Drug Administration (FDA). It has been determined that such clearance is not necessary. Upper Respiratory Mid-turbinate nasal swab / Unknown Non-blood Collection / Unknown 08/24/2024 4:10 PM EST 08/24/2024 4:13 PM EST Elisabeth Malik MD LAB MICRO - GENERAL ORDERABL ES Final Result Performing Organization Address [facility]/ZIP Co de Phone Number LABORATORY [address] [phone] * (ABNORMAL) MRSA SCREEN, PCR (08/24/2024 4:10 PM EST) MRSA PCR Result Positive( A) Negative 08/24/2024 11:52 PM EST [facility] Comment:Methicillin resistan t Staphylococcus aureus detected by PCR (amplified probe). MRSA-This patient may require isolation. Please refer to Infection Control isolation policy. Upper Respiratory Swab of internal nose / Unknown Non-blood Collection / Unknown 08/24/2024 4:10 PM EST 08/24/2024 4:13 PM EST Jaycob Horton MD LAB MICRO - GENERAL ORDERABLES F inal Result [facility] [address] [place] [address] * GLUCOSE METER, POINT OF CARE (08/24/2024 1:50 PM EST) Pathologist [facility] GLUCOSE - POCT 86 70 - 120 mg/dL 08/24/2024 1:55 PM EST [facility] Blood Whole blood specimen / Unknown 08/24/2024 1:50 PM EST 08/24/2024 1:55 PM EST Angelica Hall MD, PhD LAB POINT OF CARE TEST DOCKED DEVICE UNSOLICITED RESULTS Final Result Performing Organization Address [facility] Co de Phone Number [facility] [address] [place] [address] * (ABNORMAL) GLUCOSE METER, POINT OF CARE (08/24/2024 7:57 AM EST) GLUCOSE - POCT 145(H) 70 - 120 mg/dL 08/24/2024 8:02 AM EST [facility] Blood Whole blood specimen / Unknown 08/24/2024 7:57 AM EST 08/24/2024 8:02 AM EST Angelica Hall MD, PhD LAB POINT OF CARE TEST DOCKED DEVICE UNSOLICITED RESULTS Final Result Performing Organization Address City/[facility]/ZIP Co de Phone Number [facility] [address] [place] [address] * (ABNORMAL) PROCALCITONIN (08/24/2024 6:26 AM EST) Procalcitonin 10.81(H) <0.10 ng/mL 08/24/2024 8:06 AM EST LABORATORY GL Blood Venous blood specimen / Unknown Venipuncture / Unknown 08/24/2024 6:26 AM EST 08/24/2024 7:02 AM EST Narrative LABORATORY GL - 08/24/2024 8:06 AM EST Less than 0.5 ng/mL: Low risk for progression to sepsis. Review patients condition for localized infections. 0.5 to 2.0 ng/mL: Intermediate risk for progresion to sepsis. Review underlying conditions. Recommend repeat PCT after 6 hours has elapsed. Greater than 2.0 ng/mL: high risk for progression to sepsis unless other causes are known. Angelica Hall MD, PhD LAB BLOOD ORDERABLES Final Result LABORATORY GL [address] [place] [address] * (ABNORMAL) BASIC METABOLIC PANEL (08/24/2024 6:26 AM EST) BUN 35(H) 6 - 20 mg/dL 08/24/2024 7:33 AM EST LABORATORY [facility] CREATININE 3.9(H) 0.6 - 1.2 mg/dL 08/24/2024 7:33 AM EST LABORATORY [facility] EGFR 16(L) >=60 mL/min 08/24/2024 7:33 AM EST LAB[facility]ATORY [facility] Comment:eGFR is calculated b ased on the CKD-EPI 2020 equation. SODIUM 134(L) 135 - 146 mmol/L 08/24/2024 7:33 AM EST LABORATORY [facility] POTASSIUM 4.6 3.5 - 5.1 mmol/L 08/24/2024 7:33 AM EST LABORATORY [facility] CHLORIDE 103 98 - 107 mmol/L 08/24/2024 7:33 AM EST LABORATORY [facility] CO2 19(L) 22 - 32 mmol/L 08/24/2024 7:33 AM EST [facility]ORY [facility] ANION GAP 12 7 - 15 mmol/L 08/24/2024 7:33 AM EST LAB[facility]ORY [facility] GLUCOSE 156(H) 70 - 120 mg/dL 08/24/2024 7:33 AM EST LAB[facility]ORY [facility] CALCIUM 9.5 8.4 - 10.2 mg/dL 08/24/2024 7:33 AM EST [facility] Blood Venous blood specimen / Unknown Venipuncture / Unknown 08/24/2024 6:26 AM EST 08/24/2024 7:02 AM EST us [place] MD LAB BLOOD ORDERABLES Final Resu lt LABORATORY [facility] [address] [place] [address] * (ABNORMAL) CBC (08/24/2024 6:26 AM EST) WBC 6.68 4.00 - 10.80 K/uL 08/24/2024 7:09 AM EST LABORATORY [facility] RBC 4.07 4.50 - 5.25 M/uL 08/24/2024 7:09 AM EST LABORATORY [facility] HGB 11.5(L) 14.0 - 16.8 g/dL 08/24/2024 7:09 AM EST LABORATORY [facility] HCT 35.8(L) 40.0 - 48.4 % 08/24/2024 7:09 AM EST LABORATORY [facility] MCV 88.0 82.0 - 99.5 fL 08/24/2024 7:09 AM EST LABORATORY [facility] MCH 28.3 27.0 - 34.0 pg 08/24/2024 7:09 AM EST LABORATORY [facility] MCHC 32.1 32.0 - 36.0 g/dL 08/24/2024 7:09 AM EST LABORATORY GL RDW 13.7 11.5 - 15.5 % 08/24/2024 7:09 AM EST LABORATORY GL PLT 197 140 - 400 K/uL 08/24/2024 7:09 AM EST LABORATORY [facility] MPV 9.3 6.6 - 11.1 fL 08/24/2024 7:09 AM EST LABORATORY GL nRBCs 0 <=0 /100 WBCs 08/24/2024 7:09 AM EST [facility] Blood Venous blood specimen / Unknown Venipuncture / Unknown 08/24/2024 6:26 AM EST 08/24/2024 7:01 AM EST [place] MD LAB BLOOD ORDERABLES Final Resu lt Performing Organization Address City/[facility]/ZIP Co de Phone Number LABORATORY [address] [address] * VANCOMYCIN RANDOM (08/24/2024 6:26 AM EST) [facility] Vancomycin Random 14.6 10.0 - 40.0 ug/mL 08/24/2024 8:35 AM EST [facility] Blood Venous blood specimen / Unknown Venipuncture / Unknown 08/24/2024 6:26 AM EST 08/24/2024 7:02 AM EST us [place] MD LAB BLOOD ORDERABLES Final Resu lt Performing Organization Address [facility] Co de Phone Number LABORATORY [address] [address] * (ABNORMAL) GLUCOSE METER, POINT OF CARE (08/24/2024 5:50 AM EST) [facility] GLUCOSE - POCT 152(H) 70 - 120 mg/dL 08/24/2024 8:02 AM EST [facility] Blood Whole blood specimen / Unknown 08/24/2024 5:50 AM EST 08/24/2024 8:02 AM EST us Angelica Hall MD, PhD LAB POINT OF CARE TEST DOCKED DEVICE UNSOLICITED RESULTS Final Result Performing Organization Address City/[facility]/ZIP Co de Phone Number [facility]OR[facility] [address] [place] [phone] * (ABNORMAL) GLUCOSE METER, POINT OF CARE (08/23/2024 11:50 PM EST) [facility] GLUCOSE - POCT 179(H) 70 - 120 mg/dL 08/24/2024 12:01 AM EST [facility] Blood Whole blood specimen / Unknown 08/23/2024 11:50 PM EST 08/24/2024 12:01 AM EST us [place] MD LAB POINT OF CARE TE ST DOCKED DEVICE UNSOLICITED RESULTS Final Result Performing Organization Address City/[facility]/ZIP Co de Phone Number [facility] [address] [place] [address] * (ABNORMAL) GLUCOSE METER, POINT OF CARE (08/23/2024 6:41 PM EST) GLUCOSE - POCT 151(H) 70 - 120 mg/dL 08/23/2024 6:49 PM EST [facility] Blood Whole blood specimen / Unknown 08/23/2024 6:41 PM EST 08/23/2024 6:49 PM EST us [place] MD LAB POINT OF CARE TE ST DOCKED DEVICE UNSOLICITED RESULTS Final Result Performing Organization Address [facility] Phone Number [facility] [address] [place] [address] * GLUCOSE METER, POINT OF CARE (08/23/2024 4:34 PM EST) GLUCOSE - POCT 86 70 - 120 mg/dL 08/23/2024 4:38 PM EST [facility] Blood Whole blood specimen / Unknown 08/23/2024 4:34 PM EST 08/23/2024 4:37 PM EST us [place] MD LAB POINT OF CARE TE ST DOCKED DEVICE UNSOLICITED RESULTS Final Result Performing Organization Address [facility] Co de Phone Number [facility] [address] [place] [address] * (ABNORMAL) GLUCOSE METER, POINT OF CARE (08/23/2024 11:30 AM EST) GLUCOSE - POCT 186(H) 70 - 120 mg/dL 08/23/2024 11:45 AM EST [facility] Blood Whole blood specimen / Unknown 08/23/2024 11:30 AM EST 08/23/2024 11:45 AM EST us [place] MD LAB POINT OF CARE TE ST DOCKED DEVICE UNSOLICITED RESULTS Final Result Performing Organization Address [facility]/ZIP Co de Phone Number [facility] [address] [place] [phone] * (ABNORMAL) GLUCOSE METER, POINT OF CARE (08/23/2024 7:48 AM EST) [facility] GLUCOSE - POCT 148(H) 70 - 120 mg/dL 08/23/2024 7:55 AM EST [facility] Blood Whole blood specimen / Unknown 08/23/2024 7:48 AM EST 08/23/2024 7:55 AM EST us [place] MD LAB POINT OF CARE TE ST DOCKED DEVICE UNSOLICITED RESULTS Final Result Performing Organization Address [facility] de Phone Number [facility] [address] [place] [phone] * VANCOMYCIN RANDOM (08/23/2024 6:25 AM EST) [facility] Vancomycin Random 20.7 10.0 - 40.0 ug/mL 08/23/2024 7:07 AM EST [facility] Blood Venous blood specimen / Unknown Venipuncture / Unknown 08/23/2024 6:25 AM EST 08/23/2024 6:41 AM EST us Jaycob Horton MD LAB BLOOD ORDERABLES Final Resul t Performing Organization Address City/[facility] Co de Phone Number LABORATORY [address] [address] * (ABNORMAL) CBC (08/23/2024 6:25 AM EST) [facility] WBC 6.04 4.00 - 10.80 K/uL 08/23/2024 7:13 AM EST [facility] RBC 3.26 4.50 - 5.25 M/uL 08/23/2024 7:13 AM EST [facility] HGB 9.3(L) 14.0 - 16.8 g/dL 08/23/2024 7:13 AM EST LABORATORY GL HCT 28.4(L) 40.0 - 48.4 % 08/23/2024 7:13 AM EST [facility] MCV 87.1 82.0 - 99.5 fL 08/23/2024 7:13 AM EST [facility] MCH 28.5 27.0 - 34.0 pg 08/23/2024 7:13 AM EST [facility] MCHC 32.7 32.0 - 36.0 g/dL 08/23/2024 7:13 AM EST [facility] RDW 13.4 11.5 - 15.5 % 08/23/2024 7:13 AM EST [facility] PLT 108(L) 140 - 400 K/uL 08/23/2024 7:13 AM EST [facility] MPV 9.4 6.6 - 11.1 fL 08/23/2024 7:13 AM EST [facility] nRBCs 0 <=0 /100 WBCs 08/23/2024 7:13 AM EST [facility] Blood Venous blood specimen / Unknown Venipuncture / Unknown 08/23/2024 6:25 AM EST 08/23/2024 6:41 AM EST us Jaycob Horton MD LAB BLOOD ORDERABLES Final Resul t LABORATORY [facility] [address] [place] [address] * (ABNORMAL) COMPREHENSIVE METABOLIC PANEL (08/23/2024 6:25 AM EST) Pathologist [facility] BUN 36(H) 6 - 20 mg/dL 08/23/2024 7:07 AM EST LABORATORY GL CREATININE 3.8(H) 0.6 - 1.2 mg/dL 08/23/2024 7:07 AM EST LAB[facility]ATORY [facility] EGFR 16(L) >=60 mL/min 08/23/2024 7:07 AM EST LAB[facility]ATORY [facility] Comment:eGFR is calculated b ased on the CKD-EPI 2020 equation. SODIUM 137 135 - 146 mmol/L 08/23/2024 7:07 AM EST LAB[facility]ATORY [facility] POTASSIUM 4.0 3.5 - 5.1 mmol/L 08/23/2024 7:07 AM EST [facility]ORY [facility] CHLORIDE 105 98 - 107 mmol/L 08/23/2024 7:07 AM EST [facility]ORY [facility] CO2 20(L) 22 - 32 mmol/L 08/23/2024 7:07 AM EST [facility]ORY [facility] ANION GAP 12 7 - 15 mmol/L 08/23/2024 7:07 AM EST [facility] GLUCOSE 153(H) 70 - 120 mg/dL 08/23/2024 7:07 AM EST [facility]ORY [facility] Albumin 3.3(L) 3.8 - 5.0 g/dL 08/23/2024 7:07 AM EST [facility]ORY [facility] AST 37 10 - 50 U/L 08/23/2024 7:07 AM EST [facility] Alkaline Phosphatase 97 35 - 130 U/L 08/23/2024 7:07 AM EST [facility] Bilirubin, Total 0.5 <=1.2 mg/dL 08/23/2024 7:07 AM EST [facility]ORY [facility] CALCIUM 8.2(L) 8.4 - 10.2 mg/dL 08/23/2024 7:07 AM EST [facility] Protein 5.4(L) 6.0 - 8.3 g/dL 08/23/2024 7:07 AM EST [facility]ORY [facility] ALT 27 10 - 50 U/L 08/23/2024 7:07 AM EST [facility] Blood Venous blood specimen / Unknown Venipuncture / Unknown 08/23/2024 6:25 AM EST 08/23/2024 6:41 AM EST us Jaycob Horton MD LAB BLOOD ORDERABLES Final Resul t LABORATORY GL [address] [place] [address] * GLUCOSE METER, POINT OF CARE (08/22/2024 9:49 PM EST) GLUCOSE - POCT 78 70 - 120 mg/dL 08/22/2024 11:02 PM EST [facility] Blood Whole blood specimen / Unknown 08/22/2024 9:49 PM EST 08/22/2024 11:02 PM EST us Jaycob Horton MD LAB POINT OF CARE TE ST DOCKED DEVICE UNSOLICITED RESULTS Final Result Performing Organization Address [facility] Co de Phone Number [facility] [address] [place] [address] * (ABNORMAL) GLUCOSE METER, POINT OF CARE (08/22/2024 9:28 PM EST) GLUCOSE - POCT 58(L) 70 - 120 mg/dL 08/22/2024 11:02 PM EST [facility] Blood Whole blood specimen / Unknown 08/22/2024 9:28 PM EST 08/22/2024 11:01 PM EST us Jaycob Horton MD LAB POINT OF CARE TE ST DOCKED DEVICE UNSOLICITED RESULTS Final Result Performing Organization Address [facility] Phone Number [facility] [address] [place] [address] * XR CHEST 2 VIEWS (08/22/2024 6:31 PM EST) Anatomical Region Laterality Modality Chest Digital Radiogra phy 08/22/2024 6:27 PM EST Impressions 08/22/2024 7:17 PM EST IMPRESSION: No acute finding. THIS DOCUMENT HAS BEEN ELECTRONICALLY SIGNED BY KYLEE PEREZ MD Narrative 08/22/2024 7:17 PM EST PROCEDURE INFORMATION: Exam: XR Chest Exam date and time: 08/22/2024 6:27 PM Age: 69 years old Clinical indication: Other: Hypothermia with hypoxia TECHNIQUE: Imaging protocol: Radiologic exam of the chest. Views: 2 views. COMPARISON: CT ABD/PELVIS WO IV/ORAL CONTRAST 05/08/2024 2:10 PM FINDINGS: Tubes, catheters and devices: Right IJ central line. Lungs: Hypoventilation right lung base. Pleural spaces: No pleural effusion. Heart/Mediastinum: Coronary artery stents. Diaphragm: Chronically elevated left hemidiaphragm. Bones/joints: Osteopenia. Organs: Previous cholecystectomy. Other findings: Scattered calcific granulomata. Procedure Note Kylee Perez MD - 08/22/2024 PROCEDURE INFORMATION: Exam: XR Chest Exam date and time: 08/22/2024 6:27 PM Age: 69 years old Clinical indication: Other: Hypothermia with hypoxia TECHNIQUE: Imaging protocol: Radiologic exam of the chest. Views: 2 views. COMPARISON: CT ABD/PELVIS WO IV/ORAL CONTRAST 05/08/2024 2:10 PM FINDINGS: Tubes, catheters and devices: Right IJ central line. Lungs: Hypoventilation right lung base. Pleural spaces: No pleural effusion. Heart/Mediastinum: Coronary artery stents. Diaphragm: Chronically elevated left hemidiaphragm. Bones/joints: Osteopenia. Organs: Previous cholecystectomy. Other findings: Scattered calcific granulomata. IMPRESSION IMPRESSION: No acute finding. THIS DOCUMENT HAS BEEN ELECTRONICALLY SIGNED BY KYLEE PEREZ MD Jaycob Horton MD RADIOLOGY ([facility]) Final Re sult * (ABNORMAL) LACTATE (08/22/2024 6:21 PM EST) Pathologist [facility] Lactate 3.2(H) 0.4 - 2.0 mmol/L 08/22/2024 6:53 PM EST [facility] Blood Venous blood specimen / Unknown Venipuncture / Unknown 08/22/2024 6:21 PM EST 08/22/2024 6:31 PM EST Jaycob Horton MD LAB BLOOD ORDERABLES Final Resul t LABORATORY [facility] [address] [place] [address] * (ABNORMAL) DIFFERENTIAL, AUTOMATED (08/22/2024 6:21 PM EST) WBC 5.40 4.00 - 10.80 K/uL 08/22/2024 6:35 PM EST [facility] Neutrophils % 88.5(H) 40.0 - 75.0 % 08/22/2024 6:35 PM EST LABORATORY GL Lymphocytes % 5.2(L) 18.0 - 42.0 % 08/22/2024 6:35 PM EST LABORATORY GL Monocytes % 5.2 1.0 - 11.0 % 08/22/2024 6:35 PM EST LABORATORY GL Eosinophils % 0.2 0.0 - 6.0 % 08/22/2024 6:35 PM EST LABORATORY GL Basophils % 0.2 0.0 - 2.0 % 08/22/2024 6:35 PM EST [facility] Immature Granulocytes % 0.7 0.0 - 2.0 % 08/22/2024 6:35 PM EST [facility] Absolute Neutrophils 4.78 1.80 - 7.70 K/uL 08/22/2024 6:35 PM EST [facility] Absolute Lymphocytes 0.28(L) 1.00 - 4.80 K/ul 08/22/2024 6:35 PM EST [facility] Absolute Monocytes 0.28 0.00 - 1.10 K/uL 08/22/2024 6:35 PM EST [facility] Absolute Eosinophils 0.01 0.00 - 0.70 K/uL 08/22/2024 6:35 PM EST [facility] Absolute Basophils 0.01 0.00 - 0.20 K/uL 08/22/2024 6:35 PM EST [facility] Absolute Immature Granulocytes 0.04 0.00 - 0.20 K/uL 08/22/2024 6:35 PM EST [facility] Blood Venous blood specimen / Unknown Venipuncture / Unknown 08/22/2024 6:21 PM EST 08/22/2024 6:31 PM EST us Jaycob Horton MD LAB BLOOD ORDERABLES Final Resul t LABORATORY [address] [address] * (ABNORMAL) CBC (08/22/2024 6:21 PM EST) WBC 5.40 4.00 - 10.80 K/uL 08/22/2024 6:35 PM EST [facility] RBC 3.61 4.50 - 5.25 M/uL 08/22/2024 6:35 PM EST LABORATORY GL HGB 10.4(L) 14.0 - 16.8 g/dL 08/22/2024 6:35 PM EST LABORATORY GL HCT 31.4(L) 40.0 - 48.4 % 08/22/2024 6:35 PM EST LABORATORY GL MCV 87.0 82.0 - 99.5 fL 08/22/2024 6:35 PM EST LABORATORY [facility] MCH 28.8 27.0 - 34.0 pg 08/22/2024 6:35 PM EST LABORATORY GL MCHC 33.1 32.0 - 36.0 g/dL 08/22/2024 6:35 PM EST LABORATORY GL RDW 13.2 11.5 - 15.5 % 08/22/2024 6:35 PM EST [facility] PLT 124(L) 140 - 400 K/uL 08/22/2024 6:35 PM EST LABORATORY GL MPV 8.8 6.6 - 11.1 fL 08/22/2024 6:35 PM EST LABORATORY GL nRBCs 0 <=0 /100 WBCs 08/22/2024 6:35 PM EST [facility] Blood Venous blood specimen / Unknown Venipuncture / Unknown 08/22/2024 6:21 PM EST 08/22/2024 6:31 PM EST Jaycob Horton MD LAB BLOOD ORDERABLES Final Resul t LABORATORY [address] [address] * (ABNORMAL) GLUCOSE METER, POINT OF CARE (08/22/2024 4:29 PM EST) [facility] GLUCOSE - POCT 229(H) 70 - 120 mg/dL 08/22/2024 4:41 PM EST [facility] Blood Whole blood specimen / Unknown 08/22/2024 4:29 PM EST 08/22/2024 4:41 PM EST Jaycob Horton MD LAB POINT OF CARE TE ST DOCKED DEVICE UNSOLICITED RESULTS Final Result Performing Organization Address [facility]/ZIP Co de Phone Number [facility] [address] [place] [phone] * (ABNORMAL) D-DIMER (08/22/2024 4:12 PM EST) D-Dimer 2.71(H) <0.50 ug/mL FEU 08/22/2024 7:17 PM EST [facility] Blood Venous blood specimen / Unknown Venipuncture / Unknown 08/22/2024 4:12 PM EST 08/22/2024 4:18 PM EST Narrative [facility] - 08/22/2024 7:17 PM EST Rheumatoid factor at a level above 50 IU/mL may lead to an overestimation of the D-dimer level. A normal D-dimer result (<0.50 ug/mL FEU) has a negative predictive value of approximately 95% for the exclusion of acute pulmonary embolism (PE) or deep vein thrombosis when there is low or moderate pretest PE probability. Increased D-dimer values are abnormal but do not indicate a specific disease state and the D-dimer increase does not definitively correlate with clinical severity of disease. Jaycob Horton MD LAB BLOOD ORDERABLES Final Resul t Performing Organization Address [facility] de Phone Number LABORATORY [address] [phone] * LIPASE (08/22/2024 4:12 PM EST) Pathologist [facility] Lipase 17 13 - 60 U/L 08/22/2024 4:55 PM EST [facility] Blood Venous blood specimen / Unknown Venipuncture / Unknown 08/22/2024 4:12 PM EST 08/22/2024 4:18 PM EST Jaycob Horton MD LAB BLOOD ORDERABLES Final Resul t Performing Organization Address [facility] Co de Phone Number LABORATORY [address] [phone] * APTT (08/22/2024 4:12 PM EST) aPTT 34 21 - 38 seconds 08/22/2024 4:39 PM EST [facility] Blood Venous blood specimen / Unknown Venipuncture / Unknown 08/22/2024 4:12 PM EST 08/22/2024 4:18 PM EST Narrative [facility] - 08/22/2024 4:39 PM EST Anticoagulation may affect testing. Refer to [employer] [facility] for a list of effects. Jaycob Horton MD LAB BLOOD ORDERABLES Final Resul t Performing Organization Address City/[facility] Co de Phone Number LABORATORY [address] [address] * PT INR (08/22/2024 4:12 PM EST) Prothrombin Time 15.2 11.6 - 15.2 seconds 08/22/2024 4:38 PM EST [facility] INR 1.2 0.8 - 1.2 08/22/2024 4:38 PM EST [facility] Blood Venous blood specimen / Unknown Venipuncture / Unknown 08/22/2024 4:12 PM EST 08/22/2024 4:18 PM EST Narrative [facility] - 08/22/2024 4:38 PM EST Warfarin Therapy INR: 2.0-3.0 conventional anticoagulation INR: 2.5-3.5 high intensity anticoagulation Jaycob Horton MD LAB BLOOD ORDERABLES Final Resul t Performing Organization Address City/[facility]/ZIP Co de Phone Number LABORATORY [address] [address] * LACTATE (08/22/2024 4:12 PM EST) Lactate 1.2 0.4 - 2.0 mmol/L 08/22/2024 4:38 PM EST [facility] Blood Venous blood specimen / Unknown Venipuncture / Unknown 08/22/2024 4:12 PM EST 08/22/2024 4:18 PM EST us Jaycob Horton MD LAB BLOOD ORDERABLES Final Resul t Performing Organization Address [facility] de Phone Number LABORATORY [address] [address] * CK (08/22/2024 4:12 PM EST) CK 64 39 - 308 U/L 08/22/2024 4:55 PM EST [facility] Blood Venous blood specimen / Unknown Venipuncture / Unknown 08/22/2024 4:12 PM EST 08/22/2024 4:18 PM EST us Jaycob Horton MD LAB BLOOD ORDERABLES Final Resul t Performing Organization Address [facility] Phone Number LABORATORY [address] [phone] * MAGNESIUM (08/22/2024 4:12 PM EST) Magnesium 2.0 1.5 - 2.6 mg/dL 08/22/2024 4:55 PM EST [facility] Blood Venous blood specimen / Unknown Venipuncture / Unknown 08/22/2024 4:12 PM EST 08/22/2024 4:18 PM EST us Jaycob Horton MD LAB BLOOD ORDERABLES Final Resul t Performing Organization Address [facility] de Phone Number LABORATORY [address] [phone] * (ABNORMAL) COMPREHENSIVE METABOLIC PANEL (08/22/2024 4:12 PM EST) BUN 38(H) 6 - 20 mg/dL 08/22/2024 4:55 PM EST [facility] CREATININE 3.6(H) 0.6 - 1.2 mg/dL 08/22/2024 4:55 PM EST LABORATORY GL EGFR 17(L) >=60 mL/min 08/22/2024 4:55 PM EST [facility] Comment:eGFR is calculated b ased on the CKD-EPI 2020 equation. SODIUM 132(L) 135 - 146 mmol/L 08/22/2024 4:55 PM EST [facility]ORY [facility] POTASSIUM 3.8 3.5 - 5.1 mmol/L 08/22/2024 4:55 PM EST [facility] CHLORIDE 96(L) 98 - 107 mmol/L 08/22/2024 4:55 PM EST [facility] CO2 23 22 - 32 mmol/L 08/22/2024 4:55 PM EST [facility] ANION GAP 13 7 - 15 mmol/L 08/22/2024 4:55 PM EST [facility] GLUCOSE 278(H) 70 - 120 mg/dL 08/22/2024 4:55 PM EST [facility] Albumin 3.9 3.8 - 5.0 g/dL 08/22/2024 4:55 PM EST [facility] AST 24 10 - 50 U/L 08/22/2024 4:55 PM EST [facility] Alkaline Phosphatase 123 35 - 130 U/L 08/22/2024 4:55 PM EST [facility] Bilirubin, Total 0.5 <=1.2 mg/dL 08/22/2024 4:55 PM EST [facility] CALCIUM 8.4 8.4 - 10.2 mg/dL 08/22/2024 4:55 PM EST [facility] Protein 6.2 6.0 - 8.3 g/dL 08/22/2024 4:55 PM EST [facility] ALT 26 10 - 50 U/L 08/22/2024 4:55 PM EST [facility] Blood Venous blood specimen / Unknown Venipuncture / Unknown 08/22/2024 4:12 PM EST 08/22/2024 4:18 PM EST us Jaycob Horton MD LAB BLOOD ORDERABLES Final Resul t LABORATORY GL [address] [place] [address] * T4, FREE (08/22/2024 4:12 PM EST) T4, Free 1.0 0.9 - 1.7 ng/dL 08/22/2024 5:45 PM EST [facility] Blood Venous blood specimen / Unknown Venipuncture / Unknown 08/22/2024 4:12 PM EST 08/22/2024 4:18 PM EST Jaycob Horton MD LAB BLOOD ORDERABLES Final Resul t Performing Organization Address City/[facility]/ZIP Co de Phone Number LABORATORY [address] [address] * (ABNORMAL) T3, FREE (08/22/2024 4:12 PM EST) T3, Free 1.5(L) 2.5 - 4.3 pg/mL 08/22/2024 10:01 PM EST [facility] [place] Venous blood specimen / Unknown Venipuncture / Unknown 08/22/2024 4:12 PM EST 08/22/2024 4:18 PM EST Jaycob Horton MD LAB BLOOD ORDERABLES Final Resul t Performing Organization Address [facility]/ZIP Co de Phone Number [facility] [address] [place] [address] * TSH (08/22/2024 4:12 PM EST) TSH 2.18 0.27 - 4.20 uIU/mL 08/22/2024 5:45 PM EST [facility] Blood Venous blood specimen / Unknown Venipuncture / Unknown 08/22/2024 4:12 PM EST 08/22/2024 4:18 PM EST Jaycob Horton MD LAB BLOOD ORDERABLES Final Resul t Performing Organization Address [facility]/ZIP Co de Phone Number LABORATORY [address] [address] * WBC/%LYMPH, FLOW CYTOMETRY (08/22/2024 4:12 PM EST) Blood Venous blood specimen / Unknown Venipuncture / Unknown 08/22/2024 4:12 PM EST 08/22/2024 4:18 PM EST Jaycob Horton MD LAB BLOOD ORDERABLES Final Resul t LABOR[facility]ORY [facility] [address] [place] [address] * (ABNORMAL) CD4P T-CELL SUBSET PANEL, FLOW CYTOMETRY (08/22/2024 4:12 PM EST) Total WBC Count 3.0(L) 4.0 - 10.8 K/uL 08/23/2024 10:30 AM EST [facility]ORY [facility] Percent Lymphs 10.3(L) 18.0 - 42.0 % 08/23/2024 10:30 AM EST [facility] Absolute Lymphs 309(L) 1,000 - 4,800 cells/uL 08/23/2024 10:30 AM EST [facility] CD3 (T Cells) 77 61 - 88 % 08/23/2024 10:30 AM EST [facility] Absolute CD3 237(L) 510 - 2,265 cells/uL 08/23/2024 10:30 AM EST [facility] CD8 (T Suppressor) 22 13 - 35 % 08/23/2024 10:30 AM EST [facility] Absolute CD8 69(L) 150 - 790 cells/uL 08/23/2024 10:30 AM EST [facility] CD4 (T [place]) 53 35 - 62 % 08/23/2024 10:30 AM EST [facility] Absolute CD4 163(L) 330 - 1,520 cells/uL 08/23/2024 10:30 AM EST [facility] Comment:Test results reporte d to [place] [facility]. CD4:CD8 Ratio 2.4 0.8 - 3.5 % 08/23/2024 10:30 AM EST [facility] Blood Venous blood specimen / Unknown Venipuncture / Unknown 08/22/2024 4:12 PM EST 08/22/2024 4:19 PM EST Jaycob Horton MD LAB BLOOD ORDERABLES Final Resul t [facility]ORY [facility] [address] [id number] * FERRITIN (08/22/2024 3:34 PM EST) Ferritin 156 30 - 400 ng/mL 08/23/2024 12:37 PM EST [facility] Blood Venous blood specimen / Unknown Venipuncture / Unknown 08/22/2024 3:34 PM EST 08/22/2024 3:40 PM EST us Jaycob Horton MD LAB BLOOD ORDERABLES Final Resul t Performing Organization Address City/[facility]/ZIP Co de Phone Number LABORATORY [facility] [address] [place] [address] * (ABNORMAL) IRON SCREEN, INCLUDING TIBC (08/22/2024 3:34 PM EST) Iron 27(L) 45 - 176 ug/dL 08/23/2024 12:09 PM EST [facility] Iron Binding Capacity 215(L) 250 - 425 ug/dL 08/23/2024 12:09 PM EST [facility] Transferrin Saturation Percent 13(L) 15 - 55 % 08/23/2024 12:09 PM EST LABORATORY C Blood Venous blood specimen / Unknown Venipuncture / Unknown 08/22/2024 3:34 PM EST 08/22/2024 3:40 PM EST us Jaycob Horton MD LAB BLOOD ORDERABLES Final Resul t Performing Organization Address [facility] de Phone Number LABORATORY [facility] [address] [place] [address] * DIFFERENTIAL, TECHNOLOGIST REVIEW (08/22/2024 3:34 PM EST) Blood Venous blood specimen / Unknown Venipuncture / Unknown 08/22/2024 3:34 PM EST 08/22/2024 3:40 PM EST us Jaycob Horton MD LAB BLOOD ORDERABLES Final Resul t Performing Organization Address City/[facility]/ZIP Co de Phone Number LABORATORY [facility] [address] [place] [address] * ERYTHROCYTE SEDIMENTATION RATE (ESR) (08/22/2024 3:34 PM EST) ESR 14 <20 mm/hour 08/22/2024 10:50 PM EST [facility] Blood Venous blood specimen / Unknown Venipuncture / Unknown 08/22/2024 3:34 PM EST 08/22/2024 3:40 PM EST Jaycob Horton MD LAB BLOOD ORDERABLES Final Resul t [facility] [address] [place] [address] * (ABNORMAL) CRP (INFLAMMATORY MARKER) (08/22/2024 3:34 PM EST) Pathologist [facility] CRP (Inflammatory Marker) 64(H) <=5 mg/L 08/22/2024 5:07 PM EST [facility] Blood Venous blood specimen / Unknown 08/22/2024 3:34 PM EST 08/22/2024 3:41 PM EST Jaycob Horton MD LAB BLOOD ORDERABLES Final Resul t LABORATORY [address] [phone] * (ABNORMAL) RETICULOCYTE PANEL (08/22/2024 3:34 PM EST) Pathologist [facility] Reticulocyte Percent 1.86 0.80 - 1.90 % 08/22/2024 4:07 PM EST LAB[facility]ORY [facility] Absolute Reticulocyte 69.8 31.3 - 100.1 K/uL 08/22/2024 4:07 PM EST [facility] Immature Reticuloctye Fraction 12.3 2.5 - 20.6 % 08/22/2024 4:07 PM EST [facility] Reticulocyte Hemoglobin 28.7(L) 29.7 - 37.4 pg 08/22/2024 4:07 PM EST [facility] Blood Venous blood specimen / Unknown Venipuncture / Unknown 08/22/2024 3:34 PM EST 08/22/2024 3:40 PM EST Jaycob Horton MD LAB BLOOD ORDERABLES Final Resul t Performing Organization Address [facility] de Phone Number LABORATORY [address] [address] * EXTRA GREEN TOP WITH GEL (08/22/2024 3:34 PM EST) Blood Venous blood specimen / Unknown 08/22/2024 3:34 PM EST 08/22/2024 3:41 PM EST Damion Barber MD LAB BLOOD ORDERABLES Final Resul t Performing Organization Address [facility] Phone Number LABORATORY [address] [address] * (ABNORMAL) HEMOGLOBIN A1C (08/22/2024 3:34 PM EST) Hemoglobin A1C 11.5(H) 4.0 - 5.6 % 08/23/2024 12:50 AM EST [place] [facility]:The use of HbA1c to monitor glycemic status is based on normal hemoglobin and HbA composition. This test should not be used in patients with abnormal hemoglobin that affects the half life of the red blood cell or the in vivo glycation rates. Estimated Average Glucose 283(H) <126 mg/dL 08/23/2024 12:50 AM EST [facility] [facility] Blood Venous blood specimen / Unknown Venipuncture / Unknown 08/22/2024 3:34 PM EST 08/22/2024 3:40 PM EST us Jaycob Horton MD LAB BLOOD ORDERABLES Final Resul t Performing Organization Address [facility] Co de Phone Number [place]ATORY [facility] [address] [place] [address] * (ABNORMAL) HIV-1 RNA QUANTITATIVE (08/22/2024 3:34 PM EST) HIV RNA Result 125(H) <=0 copies/m L 08/25/2024 8:06 PM EST [facility] HIV RNA Log 2.10(H) <=0.00 log copies/m L 08/25/2024 8:06 PM EST [facility] Clinical Significance Test results have been reported to [facility]. The HIV-1 assay is intended for use in conjunction with clinical presentation and other laboratory markers for the clinical management of HIV-1 infected patients. The test can be used to quantify HIV-1 RNA levels (viral load) in individuals living with HIV-1 for baseline viral load or who may have developed HIV-1 drug resistance while on anti-HIV-1 therapy or who may be noncompliant with anti-HIV-1 therapy. It can also be used to monitor HIV-1 disease progression before or during antiretroviral drug therapy. The HIV-1 assay is not intended for use as a screening test for the presence of HIV-1 in donated blood or plasma or as a diagnostic test to confirm the presence of HIV-1 infection. 08/25/2024 8:06 PM [facility] Result Comment The HIV-1 assay is an in vitro nucleic acid amplification test for the quantitation of human immunodeficiency virus type 1 (HIV-1) in EDTA plasma of [id number] individuals using an automated system for specimen processing, amplification and detection. This test detects and quantifies, but does not discriminate between HIV groups M, N, and O subtypes. The test can quantitate HIV-1 RNA over a reportable range of 20-10,000,000 copies/mL (1.30-7.00 log copies/mL). For low volume specimens (<350uL of plasma) the reportable range is 50-10,000,000 copies/mL (1.70-7.00 log copies/mL). 08/25/2024 8:06 PM [facility] Comment The assay was verified and performance characteristics determined by the [facility] Diagn[facility] Laboratory at [facility]. This test is used for clinical purposes. 08/25/2024 8:06 PM [facility] References 1. Centers for Disease Control and Prevention and Association of Public Health Laboratories. Laboratory Testing for the Diagnosis of HIV Infection: Updated Recommendations. March 09, 2014. Available at http://stacks.cdc.g ov/view/cdc/40593 2. Adarsh HF, Laurie MS, Sukumar CA, et al: Antiretroviral Drugs for Treatment and Prevention of HIV Infection in Adults: 2016 Recommendations of the International Antiviral Society-[place] Panel. CHRISTIANO 2016;316(2):191-210 . Available at https://jamanetwork .com/journals/christiano/ fullarticle/5362220 3. Panel on Antiretroviral Guidelines for Adults and Adolescents: Guidelines for the Use of Antiretroviral Agents in Adults and Adolescents Living with HIV. U.S. Department of Health and Human Services. June 29, 2017. Available at https://aidsinfo.ni h.gov/guidelines/ht ml/1/alypo-iay-piqq escent-arv/3/tests- nyp-nvazznd-ptttvra stk-uep-qcelad-up 08/25/2024 8:06 PM EST LABORATORY [facility] Blood Venous blood specimen / Unknown Venipuncture / Unknown 08/22/2024 3:34 PM EST 08/22/2024 3:40 PM EST Jaycob Horton MD LAB MOLECULAR ORDERABLES Final R esult Performing Organization Address City/[facility]/ZIP Co de Phone Number LAB[facility]ATORY [facility] [address] [place] [address] * ANEMIA REFLEX CHEMISTRY HOLD (08/22/2024 3:34 PM EST) Blood Venous blood specimen / Unknown Venipuncture / Unknown 08/22/2024 3:34 PM EST 08/22/2024 3:40 PM EST Jaycob Horton MD LAB BLOOD ORDERABLES Final Resul t Performing Organization Address City/[facility]/ZIP Co de Phone Number LAB[facility]ATORY [facility] [address] [place] [address] * (ABNORMAL) DIFFERENTIAL, AUTOMATED (08/22/2024 3:34 PM EST) WBC 3.50(L) 4.00 - 10.80 K/uL 08/22/2024 10:28 PM EST LABORATORY [facility] Neutrophils % 87.0(H) 40.0 - 75.0 % 08/22/2024 10:28 PM EST LABORATORY [facility] Lymphocytes % 10.7(L) 18.0 - 42.0 % 08/22/2024 10:28 PM EST LABORATORY [facility] Monocytes % 1.4 1.0 - 11.0 % 08/22/2024 10:28 PM EST LABORATORY [facility] Eosinophils % 0.3 0.0 - 6.0 % 08/22/2024 10:28 PM EST LAB[facility]ATORY [facility] Basophils % 0.3 0.0 - 2.0 % 08/22/2024 10:28 PM EST LABORATORY [facility] Immature Granulocytes % 0.3 0.0 - 2.0 % 08/22/2024 10:28 PM EST LABORATORY [facility] Absolute Neutrophils 3.10 1.80 - 7.70 K/uL 08/22/2024 10:28 PM EST LABORATORY [facility] Absolute Lymphocytes 0.38(L) 1.00 - 4.80 K/ul 08/22/2024 10:28 PM EST LABORATORY [facility] Absolute Monocytes 0.05 0.00 - 1.10 K/uL 08/22/2024 10:28 PM EST LABORATORY [facility] Absolute Eosinophils 0.01 0.00 - 0.70 K/uL 08/22/2024 10:28 PM EST LAB[facility]ATORY [facility] Absolute Basophils 0.01 0.00 - 0.20 K/uL 08/22/2024 10:28 PM EST LABORATORY [facility] Absolute Immature Granulocytes 0.01 0.00 - 0.20 K/uL 08/22/2024 10:28 PM EST LAB[facility]ATORY [facility] Blood Venous blood specimen / Unknown Venipuncture / Unknown 08/22/2024 3:34 PM EST 08/22/2024 3:40 PM EST us Jaycob Horton MD LAB BLOOD ORDERABLES Final Resul t LAB[facility] [address] [place] [address] [address] * (ABNORMAL) ANEMIA CBC (08/22/2024 3:34 PM EST) WBC 3.50(L) 4.00 - 10.80 K/uL 08/22/2024 3:50 PM EST LABORATORY GL RBC 3.70 4.50 - 5.25 M/uL 08/22/2024 3:50 PM EST LABORATORY GL HGB 10.7(L) 14.0 - 16.8 g/dL 08/22/2024 3:50 PM EST LABORATORY [facility] Comment: Anemia reflex testing triggers on a HGB < 12.0 for Females and HGB < 13.0 for Males in accordance with the WHO Anemia Guidelines Anemia reflex testing triggers on a HGB < 12.0 for Females and HGB < 13.0 for Males in accordance with the WHO Anemia Guidelines HCT 31.7(L) 40.0 - 48.4 % 08/22/2024 3:50 PM EST LABORATORY [facility] MCV 85.7 82.0 - 99.5 fL 08/22/2024 3:50 PM EST LABORATORY [facility] MCH 28.9 27.0 - 34.0 pg 08/22/2024 3:50 PM EST LABORATORY GL MCHC 33.8 32.0 - 36.0 g/dL 08/22/2024 3:50 PM EST LABORATORY [facility] RDW 13.2 11.5 - 15.5 % 08/22/2024 3:50 PM EST LABORATORY GL PLT 130(L) 140 - 400 K/uL 08/22/2024 3:50 PM EST LABORATORY [facility] MPV 8.6 6.6 - 11.1 fL 08/22/2024 3:50 PM EST LABORATORY GL nRBCs 0 <=0 /100 WBCs 08/22/2024 3:50 PM EST LABORATORY GL Blood Venous blood specimen / Unknown Venipuncture / Unknown 08/22/2024 3:34 PM EST 08/22/2024 3:40 PM EST us Jaycob Horton MD LAB BLOOD ORDERABLES Final Resul t LABORATORY [facility] [address] [place] [address] * T4, TOTAL (08/22/2024 3:34 PM EST) T4, Total 5.2 4.6 - 12.0 ug/dL 08/22/2024 10:00 PM EST LABORATORY [facility] Blood Venous blood specimen / Unknown Venipuncture / Unknown 08/22/2024 3:34 PM EST 08/22/2024 3:40 PM EST us Jaycob Horton MD LAB BLOOD ORDERABLES Final Resul t LAB[facility] [address] [place] [address] * (ABNORMAL) T3, TOTAL (08/22/2024 3:34 PM EST) T3, Total 59(L) 80 - 200 ng/dL 08/22/2024 10:00 PM EST LAB[facility]ATORY [facility] Blood Venous blood specimen / Unknown Venipuncture / Unknown 08/22/2024 3:34 PM EST 08/22/2024 3:40 PM EST Jaycob Horton MD LAB BLOOD ORDERABLES Final Resul t Performing Organization Address [facility] Co de Phone Number LABORATORY [facility] [address] [place] [address] * (ABNORMAL) GLUCOSE METER, POINT OF CARE (08/22/2024 1:51 PM EST) [facility] GLUCOSE - POCT 275(H) 70 - 120 mg/dL 08/22/2024 1:53 PM EST [facility]OR[facility] Blood Whole blood specimen / Unknown 08/22/2024 1:51 PM EST 08/22/2024 1:53 PM EST us Damion Barber MD LAB POINT OF CARE TE ST DOCKED DEVICE UNSOLICITED RESULTS Final Result Performing Organization Address City/[facility]/ZIP Co de Phone Number [facility] LABORATORY [address] [place] [address] * IR INTERVENTIONAL RADIOLOGY PROCEDURE IN OR (08/22/2024 1:16 PM EST) 08/22/2024 4:32 PM EST Impressions [facility] - 08/22/2024 4:29 PM EST IMPRESSION: Successful exchange of a tunneled dialysis catheter. Narrative [facility] - 08/22/2024 4:29 PM EST PROCEDURE: Tunneled dialysis catheter exchange. 08/22/2024 INDICATION: ESRD. Bleeding from hemodialysis catheter site ATTENDING (OPERATING PHYSICIAN): Elisabeth CONSENT: After a detailed discussion of the procedure, risks, benefits and alternative treatment options, informed consent was obtained. TIME OUT: A time out procedure was performed. The patient's identification was verified. Informed consent with agreement of procedure, site and position was obtained. All necessary equipment was available prior to procedure. CONTRAST: No contrast was administered. COMPLICATIONS: None. ANESTHESIA: Local lidocaine. MEDICATIONS: See MAR PROCEDURE DESCRIPTION: Initial fluoroscopic examination demonstrates a internal jugular tunnel dialysis catheter. A 035 wire was inserted into the hemo cath and the catheter partially withdrawn. Venogram was performed demonstrating no fibrin sheath. A 14.5 Fr 19 cm tip to cuff tunneled dialysis catheter was advanced over a 035 wire reaching the SVC. Both ports flushed and aspirated well. Thrombin was injected into the tract. The tract was also sutured using 2-0 Ethilon. The catheter itself was sutured in place using 2 0 Ethilon. Fluoroscopic images were digitally archived. The catheter was secured and an occlusive dressing was applied. The procedure was performed by Dr. Barber FINDINGS: No fibrin sheath Intact cuff. Procedure Note Damion Barber MD - 08/22/2024 PROCEDURE: Tunneled dialysis catheter exchange. 08/22/2024 INDICATION: ESRD. Bleeding from hemodialysis catheter site ATTENDING (OPERATING PHYSICIAN): Elisabeth CONSENT: After a detailed discussion of the procedure, risks, benefits andalternative treatment options, informed consent was obtained. TIME OUT: A time out procedure was performed. The patient's identificationwas verified. Informed consent with agreement of procedure, site andposition was obtained. All necessary equipment was available prior toprocedure. CONTRAST: No contrast was administered. COMPLICATIONS: None. ANESTHESIA: Local lidocaine. MEDICATIONS: See MAR PROCEDURE DESCRIPTION: Initial fluoroscopic examination demonstrates ainternal jugular tunnel dialysis catheter. A 035 wire was inserted intothe hemo cath and the catheter partially withdrawn. Venogram wasperformed demonstrating no fibrin sheath. A 14.5 Fr 19 cm tip to cufftunneled dialysis catheter was advanced over a 035 wire reaching the SVC.Both ports flushed and aspirated well. Thrombin was injected into thetract. The tract was also sutured using 2-0 Ethilon. The catheter itselfwas sutured in place using 2 0 Ethilon. Fluoroscopic images weredigitally archived. The catheter was secured and an occlusive dressing wasapplied. The procedure was performed by Dr. Barber FINDINGS: No fibrin sheath Intact cuff. IMPRESSION IMPRESSION: Successful exchange of a tunneled dialysis catheter. Damion Barber MD RAD SPECIAL PROCEDURES Final Res ult [facility] * (ABNORMAL) GLUCOSE METER, POINT OF CARE (08/22/2024 11:59 AM EST) GLUCOSE - POCT 293(H) 70 - 120 mg/dL 08/22/2024 12:09 PM EST [facility] Blood Whole blood specimen / Unknown 08/22/2024 11:59 AM EST 08/22/2024 12:09 PM EST Damion Barber MD LAB POINT OF CARE TE ST DOCKED DEVICE UNSOLICITED RESULTS Final Result Performing Organization Address City/[facility] Co de Phone Number [facility] [address] [place] [address] documented in this encounter Visit Diagnoses Diagnosis Rigors- Primary Other general symptoms Rigors Other general symptoms AVF (arteriovenous fistula) (HCC) Arteriovenous fistula, acquired Hypothermia Effects of hypothermia Kidney dialysis as the cause of abnormal reaction of the patient, or of later complication, without mention of misadventure at the time of the procedure Hypertensive heart and chronic kidney disease with heart failure and with stage 5 chronic kidney disease, or end stage renal disease (HCC) End stage renal disease (HCC) End stage renal disease Dependence on renal dialysis (HCC) Renal dialysis status Chronic combined systolic (congestive) and diastolic (congestive) heart failure (HCC) Personal history of nicotine dependence Personal history of tobacco use, presenting hazards to health Hypothermia, not associated with low environmental temperature Hypoxemia HIV disease (HCC) Human immunodeficiency virus [HIV] disease ESRD (end stage renal disease) on dialysis (HCC) End stage renal disease HIV disease (HCC) Human immunodeficiency virus [HIV] disease Iron deficiency anemia due to chronic blood loss Iron deficiency anemia secondary to blood loss (chronic) Fever Fever, unspecified Catheter-related bloodstream infection Other and unspecified infection due to central venous catheter documented in this encounter Administered Medications Inactive Administered Medications - up to 3 most recent administrations Medication Order MAR Action Action Date Dose Rate Site Acetaminophen (Tylenol) tab 650 mg 650 mg, Oral, Q6H PRN Pain, Mild, Fever >38C(100.5F), Starting on Wed08/22/24 at 1541, Until Wed08/26/24 at 1840, Maximum of 4 grams (4000 mg) per day. Given 08/25/2024 10:49 PM EST 650 mg Given 08/25/2024 9:23 AM EST 650 mg Given 08/24/2024 9:11 PM EST 650 mg aspirin chew tab 81 mg 81 mg, Oral, Daily(AM), First dose on Wed08/23/24 at 0900, Until DiscontinuedIndications:Rigors Given 08/26/2024 12:50 PM EST 81 mg Given 08/25/2024 9:23 AM EST 81 mg Given 08/24/2024 2:03 PM EST 81 mg atorvaSTATin (Lipitor) tab 40 mg 40 mg, Oral, Q1700, First dose on Wed08/22/24 at 1700, Until DiscontinuedIndications:Rigors Given 08/25/2024 6:3 5 PM EST 40 mg Given 08/24/2024 5:12 PM EST 40 mg Given 08/23/2024 5:18 PM EST 40 mg Bisacodyl (Dulcolax) supp 10 mg 10 mg, Rectal, DAILY PRN Constipation, Starting on Wed08/25/24 at 1541, Until Wed08/26/24 at 1840, Administer if no bowel movement within past 72 hours and patient unable to take oral medications. Bisacodyl (Dulcolax) tab 5 mg 5 mg, Oral, DAILY PRN Constipation, Starting on Wed08/25/24 at 1541, Until Wed08/26/24 at 1840, Administer in addition to polyethylene glycol and senna-docusate if no bowel movement in past 72 hours. calcium CARBonate (Tums E-X) tab CHEW 750 mg 750 mg, Oral, BID PRN Indigestion, Starting on Wed08/22/24 at 1541, Until Wed08/26/24 at 1840 chlorhexidine gluconate cloth 2 % pad External, [id number], First dose on Wed08/23/24 at 1000, Until Discontinued, Applied to appropriate patients per hatchery helper's recommendations FOLLOWING daily care.Indications:AVF (arteriovenous fistula) (HCC) Given 08/26/2024 12:55 PM EST 1 Pad Given 08/25/2024 10:00 AM EST Given 08/24/2024 10:00 AM EST cholecalciferol (VIT D3) (Vitamin D3) tab 1,000 Units 1,000 Units, Oral, Daily(AM), First dose on Wed08/23/24 at 0900, Until DiscontinuedIndications:Rigors Given 08/26/2024 12:50 PM EST 1,000 Units Given 08/25/2024 9:23 AM EST 1,000 Units Given 08/24/2024 2:03 PM EST 1,000 Units dextrose 50% inj 25 mL 25 mL, IV Push, PRN Hypoglycemia, Other, For blood glucose 54 - 69 mg/dL or 70 - 100 mg/dL with symptoms AND patient is unresponsive, NPO, OR unable to swallow, Starting on Wed08/22/24 at 1536, Until 08/26/24 at 1840, Administer IV. Recheck blood glucose after 15 minutes. Notify provider. dextrose 50% inj 50 mL 50 mL, IV Push, PRN Hypoglycemia, Other, For blood glucose below 54 mg/dL AND patient unresponsive, NPO, OR unable to swallow, Starting on Wed08/22/24 at 1536, Until 08/26/24 at 1840, Administer IV. Recheck blood glucose in 15 minutes. Notify provider. Dolutegravir (Tivicay) tab 50 mg 50 mg, Oral, Daily(AM), First dose on Wed08/23/24 at 0900, Until Discontinued, Administer without regard to meals. Administer 2 hours before or 6 hours after cation-containing antacids or laxatives, sucralfate, oral supplements containing iron or calcium. Given 08/26/2024 12:51 PM EST 50 mg Given 08/25/2024 9:23 AM EST 50 mg Given 08/24/2024 8:05 AM EST 50 mg Enoxaparin (Lovenox) inj 30 mg 30 mg, Subcutaneous, Daily(AM), First dose on Wed08/23/24 at 0900, Until Discontinued, If patient is on warfarin, inform provider if daily INR value is 2 or greater!Indications:Rigors Given 08/25/2024 9:23 AM EST 30 mg Abdomen Left Lower Given 08/24/2024 9:06 AM EST 30 mg Ab domen Right Lower Given 08/23/2024 8:26 AM EST 30 mg Ab domen Left Upper FLUoxetine (PROzac) cap 20 mg 20 mg, Oral, Daily(AM), First dose on Wed08/23/24 at 0900, Until DiscontinuedIndications:Rigors Given 08/26/2024 12:50 PM EST 20 mg Given 08/25/2024 9:24 AM EST 20 mg Given 08/24/2024 2:03 PM EST 20 mg glucagon (Glucagen) inj 1 mg 1 mg, Intramuscular, PRN Hypoglycemia, Other, If patient is unresponsive, or NPO and has no IV access, Starting on Wed08/22/24 at 1536, Until 08/26/24 at 1840, NPO and no IV access with either 1) blood glucose less than 100 mg/dL and symptomatic OR 2) blood glucose less than 70 mg/dL and asymptomatic Glucose (Glutose 15) 40 % gel 15 g of glucose 15 g of glucose, Oral, PRN Hypoglycemia (low sugar), Other, For blood glucose 54 - 69 mg/dL or 70 - 100 mg/dL with symptoms AND patient alert WITH difficulty chewing/swallowing, Starting on Wed08/22/24 at 1536, Until 08/26/24 at 1840, Administer gel. Recheck blood glucose after 15 minutes. Notify provider. 37.5 gram tube = 15 grams glucose = 1 each Glucose (Glutose 15) 40 % gel 30 g of glucose 30 g of glucose, Oral, PRN Hypoglycemia (low sugar), Other, For blood glucose below 54 mg/dL AND patient alert WITH difficulty chewing/swallowing, Starting on Wed08/22/24 at 1536, Until 08/26/24 at 1840, Administer gel. Recheck blood glucose after 15 minutes. Notify provider. 37.5 gram tube = 15 grams glucose = 1 each glucose chew tab 16 g 16 g, Oral, PRN Hypoglycemia, Other, For blood glucose 54 - 69 mg/dL or 70 - 100 mg/dL with symptoms and patient alert without difficulty chewing/swallowing., Starting on Wed08/22/24 at 1536, Until 08/26/24 at 1840 hEParin 1000 UNIT/ML inj (dialysis orders only) Intravenous, ON DIALYSIS, Starting on Racheal 08/24/24 at 0905, Until 08/26/24 at 1840, For 7 days, Bolus:2000 To be given ONLY on dialysis only. Enter Date of Dialysis Rx:: 08/24 Given 08/24/2024 9:43 AM EST 2,000 Units hEParin 1000 UNIT/ML inj (dialysis orders only) Intravenous, ONCE, On Racheal 08/24/24 at 0945, For 1 dose, Maintenance: 400 Units Drip: 400 Units/ Hr. Continue heparin until end of dialysis treatment Stop 1 hour before dialysis end in AVF/AVG. Continue through dialysis in CVC. The total delivered dose is approximately 2,500 to 5,000 units, based on weight and treatment duration assumptions. Given 08/24/2024 9:56 AM EST 1,400 Units hEParin 1000 UNIT/ML inj (dialysis orders only) Intravenous, ON DIALYSIS, Starting on 08/26/24 at 0000, Until 08/26/24 at 1840, For 7 days, Bolus:2000 To be given ONLY on dialysis only. Enter Date of Dialysis Rx:: 08/26 Given 08/26/2024 9:22 AM EST 2,000 Units hEParin 1000 UNIT/ML inj (dialysis orders only) Intravenous, ONCE, On 08/26/24 at 0000, For 1 dose, Maintenance: 400 Units Drip: 400 Units/ Hr. Continue heparin until end of dialysis treatment Stop 1 hour before dialysis end in AVF/AVG. Continue through dialysis in CVC. The total delivered dose is approximately 2,500 to 5,000 units, based on weight and treatment duration assumptions. Given 08/26/2024 9:25 AM EST 1,200 Units insulin aspart (NovoLOG) inj 10 Units 10 Units, Subcutaneous, WITH MEALS, First dose on Wed08/22/24 at 1700, Until DiscontinuedIndications:Rigors Given 08/25/2024 11:43 AM EST 10 Units Arm Right Upper Given 08/25/2024 9:22 AM EST 10 Units Ar m Right Upper Given 08/24/2024 5:11 PM EST 10 Units Ab domen Right Lower insulin aspart (NovoLOG) inj 3 Units 3 Units, Subcutaneous, WITH MEALS, First dose on Sat 24 at 0800, Until Discontinued, Hold for glucose <140 Given 08/26/2024 12:00 PM EST 3 Units Arm Left Upper Given 08/26/2024 7:37 AM EST 3 Units Ar m Left Upper insulin aspart (NovoLOG) inj Subcutaneous, W/MEALS AND HS, First dose on Wed08/22/24 at 1700, Until Discontinued, LOW DOSE (Elderly insulin sensitive patient): Sliding Scale Correctional insulin may be given if the patient is NPO. Dose based on standard build from Insulin Calculator. Do not modify insulin doses in administration instructions!, Glucose less than 70 instructions: Obtain STAT lab blood glucose and call covering provider., Glucose 80-150 (units): 0, Glucose 151-200 (units): 1, Glucose 201-250 (units): 2, Glucose 251-300 (units): 3, Glucose greater than 300 (units): 4, Glucose greater than 300 instructions: Give suggested insulin dose and call covering provider. Given 08/25/2024 11:43 AM EST 3 Units Arm Right Upper Given 08/25/2024 9:22 AM EST 1 Units Ar m Right Upper Given 08/24/2024 9:12 PM EST 2 Units Ar m Right Upper insulin aspart (NovoLOG) inj Subcutaneous, W/MEALS AND HS, First dose on Wed08/25/24 at 2200, Until Discontinued, MEDIUM DOSE (Usual starting dose): Sliding Scale Correctional insulin may be given if the patient is NPO. Dose based on standard build from Insulin Calculator. Do not modify insulin doses in administration instructions!, Glucose less than 70 instructions: Obtain STAT lab blood glucose and call covering provider., Glucose 80-150 (units): 0, Glucose 151-200 (units): 2, Glucose 201-250 (units): 4, Glucose 251-300 (units): 6, Glucose greater than 300 (units): 8, Glucose greater than 300 instructions: Give suggested insulin dose and call covering provider. Given 08/26/2024 7:37 AM EST 2 Units Arm Left Upper Given 08/25/2024 10:50 PM EST 4 Units A rm Right Upper Insulin Glargine (Lantus) inj 22 Units 22 Units, Subcutaneous, [id number], First dose on Wed08/23/24 at 0900, Until DiscontinuedIndications:Rigors Given 08/26/2024 9:00 AM EST 22 Units Arm Left Upper Given 08/25/2024 9:21 AM EST 22 Units Ar m Right Upper Given 08/24/2024 9:07 AM EST 22 Units Ab domen Left Lower levothyroxine (Levoxyl) tab 25 mcg 25 mcg, Oral, [id number], First dose on Wed08/23/24 at 0630, Until DiscontinuedIndications:Rigors Given 08/26/2024 6:16 AM EST 25 mcg Given 08/25/2024 6:26 AM EST 25 mcg Given 08/24/2024 5:31 AM EST 25 mcg melatonin tab 3 mg 3 mg, Oral, HS PRN Insomnia, Starting on Wed08/22/24 at 1541, Until 08/26/24 at 1840 metoprolol succinate XL (toPROL XL) tab 25 mg 25 mg, Oral, Daily(AM), First dose on Wed08/23/24 at 0900, Until Discontinued, Hold for HR less than 60 or SBP below 100 and notify service if dose is held This med should NOT be Crushed or Chewed.Indications:Rigors Given 08/26/2024 12:50 PM EST 25 mg Given 08/25/2024 9:24 AM EST 25 mg Given 08/24/2024 2:03 PM EST 25 mg midodrine (Proamatine) tab 10 mg 10 mg, Oral, ONCE, On Wed08/23/24 at 1700, For 1 dose Given 08/23/2024 5:18 PM EST 10 mg midodrine (Proamatine) tab 5 mg 5 mg, Oral, TID , First dose on Wed08/23/24 at 1800, Until Discontinued Given 08/25/2024 6:26 AM EST 5 mg Given 08/24/2024 5:12 PM EST 5 mg Given 08/24/2024 5:31 AM EST 5 mg midodrine (Proamatine) tab 5 mg 5 mg, Oral, TID 18, First dose (after last modification) on Wed08/25/24 at 1800, Until Discontinued, Hold for SBP>120 Given 08/25/2024 6:35 PM EST 5 mg NIFEdipine ER (Adalat CC) tab 30 mg 30 mg, Oral, Daily(AM), First dose on Wed08/23/24 at 0900, Until Discontinued, Hold for SBP below 100 and notify service if dose is held This med should NOT be Crushed or Chewed. Take on an empty stomach !Indications:Rigors Given 08/23/2024 8:27 AM EST 30 mg NSS 0.9% 2,000 mL bolus infusion Intravenous, at 1,000 mL/hr Administer over 120 Minutes, Administer entire volume within 60 minutes or less., ONCE, 1 dose, On Wed08/22/24 at 1945 New Bag 08/22/2024 7:34 PM EST 2,000 mL 1000 mL/hr NSS 0.9% 500 mL bolus infusion Intravenous, at 500 mL/hr Administer over 60 Minutes, Administer entire volume within 60 minutes or less., ONCE, 1 dose, On Wed08/23/24 at 1700 New Bag 08/23/2024 5:23 PM EST 500 mL 5 00 mL/hr NSS infusion 25 mL/hr, Intravenous, All Dialysis Patients. Administer using a 500 ml bag., CONTINUOUS, Starting on Wed08/22/24 at 1145, Until Racheal 08/24/24 at 2314, Pre-Op New Bag 08/22/2024 12:02 PM EST 25 mL/hr 25 mL/hr ondansetron (Zofran) inj 4 mg 4 mg, IV Push, Q6H PRN Nausea, Starting on Wed08/22/24 at 1541, Until 08/26/24 at 1840 Oral Hygiene: Mouth Swab with dentifrice Oral, QID(AM/NOON/PM/HS), First dose on Wed08/22/24 at 1800, Until Discontinued, To be used with 1.5% hydrogen peroxide solution or 0.05% cetylpyridium chloride oral rinseIndications:Rigors Given 08/26/2024 1:00 PM EST Given 08/26/2024 9:00 AM EST Given 08/25/2024 6:00 PM EST pantoprazole (Protonix) tab 40 mg 40 mg, Oral, Daily(AM), First dose on Wed08/23/24 at 0900, Until Discontinued, This med should NOT be Crushed or ChewedIndications:Rigors Given 08/26/2024 12:50 PM EST 40 mg Given 08/25/2024 9:24 AM EST 40 mg Given 08/24/2024 8:05 AM EST 40 mg Piperacillin-Tazobactam (Zosyn) 4.5 g in 100 mL NSS ivpb (HALF hour infusion) IV Piggyback, 4.5 g, ONCE, 1 dose, On Wed08/22/24 at 1730, Administer over 30 Minutes New Bag 08/22/2024 5:38 PM EST 4.5 g 210 mL/hr Piperacillin-Tazobactam (Zosyn) 4.5 g in 100 mL NSS ivpb (HALF hour infusion) IV Piggyback, 4.5 g, [id number], 10 doses, First dose on Wed08/23/24 at 0900, Last dose on Wed08/27/24 at 2100, Administer over 30 Minutes New Bag 08/24/2024 2:07 PM EST 4.5 g 210 mL/hr New Bag 08/23/2024 8:43 PM EST 4.5 g 210 mL/hr New Bag 08/23/2024 8:55 AM EST 4.5 g 210 mL/hr Polyethylene Glycol 3350 (Miralax) oral powder 17 g 17 g (1 Packet), Oral, DAILY PRN Constipation, Starting on Wed08/22/24 at 1541, Until 08/26/24 at 1840, Administer if no bowel movement within past 24 hours. prasugrel (Effient) tab 10 mg 10 mg, Oral, Daily(AM), First dose on Wed08/23/24 at 0900, Until DiscontinuedIndications:Rigors Given 08/26/2024 12:51 PM EST 10 mg Given 08/25/2024 9:23 AM EST 10 mg Given 08/24/2024 2:03 PM EST 10 mg Rilpivirine (Edurant) tab 25 mg 25 mg, Oral, Daily(AM), First dose on Wed08/23/24 at 0900, Until Discontinued Given 08/26/2024 12:50 PM EST 25 mg Given 08/25/2024 9:23 AM EST 25 mg Given 08/24/2024 8:05 AM EST 25 mg senna-docusate (Senokot-S) 1 Tablet 1 Tablet, Oral, BID PRN Constipation, Starting on Wed08/24/24 at 1541, Until 08/26/24 at 1840, Administer in addition to polyethylene glycol if no bowel movement within past 48 hours. sodium chloride 0.9 % flush central line 10 mL 10 mL, IV Push, Q8H, First dose on Wed08/22/24 at 1600, Until Discontinued, TO UNUSED PORTS Do not flush if lock, PICC, or central line not in place; IV infusing or unable to flush.Indications:AVF (arteriovenous fistula) (HCC) Given 08/24/2024 2:00 PM EST 10 mL Given 08/22/2024 4:00 PM EST 10 mL Vancomycin (Vancocin) 1000 mg in NSS 250 mL ivpb LOCKED DOSE 1,000 mg, IV Piggyback, ONCE, 1 dose, On Racheal 08/24/24 at 1700 New Bag 08/24/2024 5:21 PM EST 1,000 mg 2 55 mL/hr Vancomycin (Vancocin) 1000 mg in NSS 250 mL ivpb LOCKED DOSE 1,000 mg, IV Piggyback, ONCE, 1 dose, On 08/26/24 at 1300 New Bag 08/26/2024 12:48 PM EST 1,000 mg 255 mL/hr Vancomycin (Vancocin) 2000 mg in NSS 500 mL ivpb 2,000 mg, IV Piggyback, ONCE, 1 dose, On Wed08/22/24 at 1715 New Bag 08/22/2024 5:39 PM EST 2,000 mg 2 85 mL/hr vancomycin per pharmacy order Routine, NURSING: THIS IS TO REMIND YOU THAT PHARMACY WILL BE PLACING ORDERS FOR THIS MEDICATION --- NO DOCUMENTATION OF ADMIN OR ADDRESSED IS REQUIRED ON THIS ORDER documented in this encounter Active and Recently Administered Medications Times are shown in EST. Scheduled Medication Order 08/24/2024 08/25/2024 08/26/2024 aspirin chew tab 81 mg 81 mg, Oral, Daily(AM), First dose on Wed08/23/24 at 0900, Until Discontinued 1403 (Given - Provider: Yamilex Magallanes RN) 0923 (Given - Provider: Jose Valladares RN) 1250 (Given - Provider: Barbara Mario RN - Comment: at dialysis) atorvaSTATin (Lipitor) tab 40 mg 40 mg, Oral, Q1700, First dose on Wed08/22/24 at 1700, Until Discontinued 1712 (Given - Provider: Yamilex Magallanes RN) 1835 (Given - Provider: Jose Valladares, KWABENA) chlorhexidine gluconate cloth 2 % pad External, [id number], First dose on Wed08/23/24 at 1000, Until Discontinued, Applied to appropriate patients per hatchery helper's recommendations FOLLOWING daily care. 1000 (Given - Provider: Yamilex Magallanes RN) 1000 (Given - Provider: Jose Valladares RN) 1255 (Given - Provider: Barbara Mario RN - Comment: at dialysis) cholecalciferol (VIT D3) (Vitamin D3) tab 1,000 Units 1,000 Units, Oral, Daily(AM), First dose on Wed08/23/24 at 0900, Until Discontinued 1403 (Given - Provider: Yamilex Magallanes RN) 0923 (Given - Provider: Jose Valladares RN) 1250 (Given - Provider: Barbara Mario, KWABENA - Comment: at dialysis) Dolutegravir (Tivicay) tab 50 mg(Linked Group 1) 50 mg, Oral, Daily(AM), First dose on Wed08/23/24 at 0900, Until Discontinued, Administer without regard to meals. Administer 2 hours before or 6 hours after cation-containing antacids or laxatives, sucralfate, oral supplements containing iron or calcium. 0805 (Given - Provider: Yamilex Magallanes RN) 0923 (Given - Provider: Jose Valladares RN) 1251 (Given - Provider: Barbara Mario RN - Comment: at dialysis) Drug Level Check - Vancomycin Random ONCE - TIMED LAB, 1 dose, First dose on Wed08/26/24 at 0600, STAT, Jay Jay as Order Check Addressed once lab level is drawn. If antibiotic time changes, please contact the Pharmacy to adjust Lab and Drug Level Check times. 0600 (Order Check Addressed - Provider: Dariela Torres RN) Enoxaparin (Lovenox) inj 30 mg 30 mg, Subcutaneous, Daily(AM), First dose on Wed08/23/24 at 0900, Until Discontinued, If patient is on warfarin, inform provider if daily INR value is 2 or greater! 0906 (Given - Provider: Yamilex Magallanes RN) 0923 (Given - Provider: Jose Valladares RN) 1252 (Not Given - Provider: Barbara Mario RN - Reason: Refused-Notify Provider) FLUoxetine (PROzac) cap 20 mg 20 mg, Oral, Daily(AM), First dose on Wed08/23/24 at 0900, Until Discontinued 1403 (Given - Provider: Yamilex Magallanes RN) 0924 (Given - Provider: Jose Valladares RN) 1250 (Given - Provider: Barbara Mario RN - Comment: at dialysis) hEParin 1000 UNIT/ML inj (dialysis orders only) Intravenous, ON DIALYSIS, Starting on Racheal 08/24/24 at 0905, Until 08/26/24 at 1840, For 7 days, Bolus:2000 To be given ONLY on dialysis only. Enter Date of Dialysis Rx:: 08/24 0943 (Given - Provider: Angelica Marquez RN) hEParin 1000 UNIT/ML inj (dialysis orders only) (COMPLETED) Intravenous, ONCE, On Racheal 08/24/24 at 0945, For 1 dose, Maintenance: 400 Units Drip: 400 Units/ Hr. Continue heparin until end of dialysis treatment Stop 1 hour before dialysis end in AVF/AVG. Continue through dialysis in CVC. The total delivered dose is approximately 2,500 to 5,000 units, based on weight and treatment duration assumptions. 0956 (Given - Provider: Angelica Marquez RN - Comment: total maintenance given throughout dialysis) hEParin 1000 UNIT/ML inj (dialysis orders only) Intravenous, ON DIALYSIS, Starting on 08/26/24 at 0000, Until 08/26/24 at 1840, For 7 days, Bolus:2000 To be given ONLY on dialysis only. Enter Date of Dialysis Rx:: 08/26 922 (Given - Provider: Sandy Escobar RN) hEParin 1000 UNIT/ML inj (dialysis orders only) (COMPLETED) Intravenous, ONCE, On 08/26/24 at 0000, For 1 dose, Maintenance: 400 Units Drip: 400 Units/ Hr. Continue heparin until end of dialysis treatment Stop 1 hour before dialysis end in AVF/AVG. Continue through dialysis in CVC. The total delivered dose is approximately 2,500 to 5,000 units, based on weight and treatment duration assumptions. 0000 (Not Given - Provider: Dara Ramos RN - Reason: Parameter(s) Not Met)0925 (Given - Provider: Sandy Ecsobar RN - Comment: ordred dose) insulin aspart (NovoLOG) inj 10 Units (CANCELED) 10 Units, Subcutaneous, WITH MEALS, First dose on Wed08/22/24 at 1700, Until Discontinued 0804 (Given - Provider: Yamilex Magallanes RN)1354 (No Insulin - Provider: Yamilex Magallanes RN - Reason: Other- Please add reason in Comments - Comment: Patient states he woould not use insulin for his BSBS of 86)171 (Given - Provider: Yamilex Magallanes RN) 09 (Given - Provider: Jose Valladares, KWABENA)1143 (Given - Provider: Jose Valladares RN)1700 (Not Given - Provider: Jose Valladares RN - Reason: Order Discontinued) insulin aspart (NovoLOG) inj 3 Units 3 Units, Subcutaneous, WITH MEALS, First dose on Wed08/26/24 at 0800, Until Discontinued, Hold for glucose <140 0737 (Given - Provider: Barbara Mario RN)1200 (Given - Provider: Barbara Mario RN) insulin aspart (NovoLOG) inj (CANCELED) Subcutaneous, W/MEALS AND HS, First dose on Wed08/22/24 at 1700, Until Discontinued, LOW DOSE (Elderly insulin sensitive patient): Sliding Scale Correctional insulin may be given if the patient is NPO. Dose based on standard build from Insulin Calculator. Do not modify insulin doses in administration instructions!, Glucose less than 70 instructions: Obtain STAT lab blood glucose and call covering provider., Glucose 80-150 (units): 0, Glucose 151-200 (units): 1, Glucose 201-250 (units): 2, Glucose 251-300 (units): 3, Glucose greater than 300 (units): 4, Glucose greater than 300 instructions: Give suggested insulin dose and call covering provider. 0800 (No Insulin - Provider: Yamilex Magallanes RN - Reason: Parameter(s) Not Met)1350 (No Insulin - Provider: Yamilex Magallanes RN - Reason: Parameter(s) Not Met)1711 (Given - Provider: Yamilex Magallanes RN)211 (Given - Provider: Dara Ramos RN) 0922 (Given - Provider: Jose Valladares RN)1143 (Given - Provider: Jose Valladares RN)1700 (Not Given - Provider: Jose Valladares RN - Reason: Parameter(s) Not Met) insulin aspart (NovoLOG) inj Subcutaneous, W/MEALS AND HS, First dose on Wed08/25/24 at 2200, Until Discontinued, MEDIUM DOSE (Usual starting dose): Sliding Scale Correctional insulin may be given if the patient is NPO. Dose based on standard build from Insulin Calculator. Do not modify insulin doses in administration instructions!, Glucose less than 70 instructions: Obtain STAT lab blood glucose and call covering provider., Glucose 80-150 (units): 0, Glucose 151-200 (units): 2, Glucose 201-250 (units): 4, Glucose 251-300 (units): 6, Glucose greater than 300 (units): 8, Glucose greater than 300 instructions: Give suggested insulin dose and call covering provider. 2250 (Given - Provider: Dara Ramos RN) 0737 (Given - Provider: Barbara Mario RN)1200 (Not Given - Provider: Chetna Da Silva RN - Reason: Parameter(s) Not Met) Insulin Glargine (Lantus) inj 22 Units 22 Units, Subcutaneous, [id number], First dose on Wed08/23/24 at 0900, Until Discontinued 0907 (Given - Provider: Yamilex Magallanes RN) 0921 (Given - Provider: Jose Valladares RN) 0900 (Given - Provider: Barbara Mario RN) levothyroxine (Levoxyl) tab 25 mcg 25 mcg, Oral, [id number], First dose on Wed08/23/24 at 0630, Until Discontinued 0531 (Given - Provider: Nallely Ballesteros RN) 0626 (Given - Provider: Dara Ramos RN) 0616 (Given - Provider: Dariela Torres RN) metoprolol succinate XL (toPROL XL) tab 25 mg 25 mg, Oral, Daily(AM), First dose on Wed08/23/24 at 0900, Until Discontinued, Hold for HR less than 60 or SBP below 100 and notify service if dose is held This med should NOT be Crushed or Chewed. 1403 (Given - Provider: Yamilex Magallanes RN) 0924 (Given - Provider: Jose Valladares, KWABENA) 1250 (Given - Provider: Barbara Mario RN - Comment: at dialysis) midodrine (Proamatine) tab 5 mg (CANCELED) 5 mg, Oral, TID ;12;18, First dose on Wed08/23/24 at 1800, Until Discontinued 0531 (Given - Provider: Nallely Ballesteros RN)1200 (OR/Procedure - Provider: Yamilex Magallanes RN - Comment: dialysis)1712 (Given - Provider: Yamilex Magallanes RN) 0626 (Given - Provider: Dara Ramos, RN)1200 (Not Given - Provider: Jose Valladares RN - Reason: Other-Notify Provider - Comment: Per Dr. Barnard give on dialysis days only) midodrine (Proamatine) tab 5 mg 5 mg, Oral, TID ;;18, First dose (after last modification) on Wed08/25/24 at 1800, Until Discontinued, Hold for SBP>120 1835 (Given - Provider: Jose Valladares RN) 0600 (Not Given - Provider: Dariela Torres RN - Reason: Parameter(s) Not Met)1200 (Not Given - Provider: Chetna Da Silva RN - Reason: Parameter(s) Not Met) Oral Hygiene: Mouth Swab with dentifrice Oral, QID(AM/NOON/PM/HS), First dose on Wed08/22/24 at 1800, Until Discontinued, To be used with 1.5% hydrogen peroxide solution or 0.05% cetylpyridium chloride oral rinse 0900 (Given - Provider: Yamilex Magallanes RN)1300 (Given - Provider: Yamilex Magallanes RN)1800 (Given - Provider: Yamilex Magallanes RN)2200 (Given - Provider: Dara Ramos, KWABENA) 0900 (Given - Provider: Jose Valladares, KWABENA)1300 (Given - Provider: Jose Valladares, KWABENA)1800 (Given - Provider: Jose Valladares, KWABENA)2200 (Not Given - Provider: Dara Ramos, KWABENA - Reason: Refused-Notify Provider) 0900 (Given - Provider: Barbara Mario RN)1300 (Given - Provider: Barbara Mario RN) pantoprazole (Protonix) tab 40 mg 40 mg, Oral, Daily(AM), First dose on Wed08/23/24 at 0900, Until Discontinued, This med should NOT be Crushed or Chewed 0805 (Given - Provider: Yamilex Magallanes RN) 0924 (Given - Provider: Jose Valladares RN) 1250 (Given - Provider: Barbara Mario RN - Comment: at dialysis) Piperacillin-Tazobactam (Zosyn) 4.5 g in 100 mL NSS ivpb (HALF hour infusion) (CANCELED) IV Piggyback, 4.5 g, [id number], 10 doses, First dose on Wed08/23/24 at 0900, Last dose on Wed08/27/24 at 2100, Administer over 30 Minutes 1407 (New Bag - Provider: Yamilex Magallanes RN)1438 (Stopped - Provider: Yamilex Magallanes RN) prasugrel (Effient) tab 10 mg 10 mg, Oral, Daily(AM), First dose on Wed08/23/24 at 0900, Until Discontinued 1403 (Given - Provider: Yamilex Magallanes RN) 0923 (Given - Provider: Jose Valladares RN) 1251 (Given - Provider: Barbara Mario RN - Comment: at dialysis) Rilpivirine (Edurant) tab 25 mg(Linked Group 1) 25 mg, Oral, Daily(AM), First dose on Wed08/23/24 at 0900, Until Discontinued 08 (Given - Provider: Yamilex Magallanes RN) 09 (Given - Provider: Jose Valladares RN) 1250 (Given - Provider: Barbara Mario RN - Comment: at dialysis) sodium chloride 0.9 % flush central line 10 mL 10 mL, IV Push, Q8H, First dose on Wed08/22/24 at 1600, Until Discontinued, TO UNUSED PORTS Do not flush if lock, PICC, or central line not in place; IV infusing or unable to flush. 0600 (Not Given - Provider: Nallely Ballesteros RN - Reason: Parameter(s) Not Met)1400 (Given - Provider: Yamilex Magallanes RN)2200 (Not Given - Provider: Dara Ramos RN - Reason: Parameter(s) Not Met) 0600 (Not Given - Provider: Dara Ramos RN - Reason: Parameter(s) Not Met)1400 (Not Given - Provider: Jose Valladares RN - Reason: Other-Notify Provider - Comment: central line is dialysis port.)2200 (Not Given - Provider: Dara Ramos RN - Reason: Parameter(s) Not Met) 0600 (Not Given - Provider: Dariela Torres RN - Reason: Parameter(s) Not Met)1400 (Due) Vancomycin (Vancocin) 1000 mg in NSS 250 mL ivpb LOCKED DOSE (COMPLETED) 1,000 mg, IV Piggyback, ONCE, 1 dose, On Racheal 08/24/24 at 1700 1721 (New Bag - Provider: Yamilex Magallanes RN)1836 (Stopped - Provider: Yamilex Magallanes RN) Vancomycin (Vancocin) 1000 mg in NSS 250 mL ivpb LOCKED DOSE (COMPLETED) 1,000 mg, IV Piggyback, ONCE, 1 dose, On 08/26/24 at 1300 1248 (New Bag - Provider: Barbara Mario RN) vancomycin per pharmacy order Routine, NURSING: THIS IS TO REMIND YOU THAT PHARMACY WILL BE PLACING ORDERS FOR THIS MEDICATION --- NO DOCUMENTATION OF ADMIN OR ADDRESSED IS REQUIRED ON THIS ORDER PRN Medication Order 08/24/2024 08/25/2024 08/26/2024 Acetaminophen (Tylenol) tab 650 mg 650 mg, Oral, Q6H PRN Pain, Mild, Fever >38C(100.5F), Starting on Wed08/22/24 at 1541, Until 08/26/24 at 1840, Maximum of 4 grams (4000 mg) per day. 2110 (Given - Provider: Dara Ramos RN) 922 (Given - Provider: Jose Valladares, KWABENA)2248 (Given - Provider: Dara Ramos RN) Bisacodyl (Dulcolax) supp 10 mg(Linked Group 2) 10 mg, Rectal, DAILY PRN Constipation, Starting on Wed08/25/24 at 1541, Until 08/26/24 at 1840, Administer if no bowel movement within past 72 hours and patient unable to take oral medications. Bisacodyl (Dulcolax) tab 5 mg(Linked Group 2) 5 mg, Oral, DAILY PRN Constipation, Starting on Wed08/25/24 at 1541, Until 08/26/24 at 1840, Administer in addition to polyethylene glycol and senna-docusate if no bowel movement in past 72 hours. calcium CARBonate (Tums E-X) tab CHEW 750 mg 750 mg, Oral, BID PRN Indigestion, Starting on Wed08/22/24 at 1541, Until 08/26/24 at 1840 dextrose 50% inj 25 mL 25 mL, IV Push, PRN Hypoglycemia, Other, For blood glucose 54 - 69 mg/dL or 70 - 100 mg/dL with symptoms AND patient is unresponsive, NPO, OR unable to swallow, Starting on Wed08/22/24 at 1536, Until 08/26/24 at 1840, Administer IV. Recheck blood glucose after 15 minutes. Notify provider. dextrose 50% inj 50 mL 50 mL, IV Push, PRN Hypoglycemia, Other, For blood glucose below 54 mg/dL AND patient unresponsive, NPO, OR unable to swallow, Starting on Wed08/22/24 at 1536, Until 08/26/24 at 1840, Administer IV. Recheck blood glucose in 15 minutes. Notify provider. glucagon (Glucagen) inj 1 mg 1 mg, Intramuscular, PRN Hypoglycemia, Other, If patient is unresponsive, or NPO and has no IV access, Starting on Wed08/22/24 at 1536, Until 08/26/24 at 1840, NPO and no IV access with either 1) blood glucose less than 100 mg/dL and symptomatic OR 2) blood glucose less than 70 mg/dL and asymptomatic Glucose (Glutose 15) 40 % gel 15 g of glucose 15 g of glucose, Oral, PRN Hypoglycemia (low sugar), Other, For blood glucose 54 - 69 mg/dL or 70 - 100 mg/dL with symptoms AND patient alert WITH difficulty chewing/swallowing, Starting on Wed08/22/24 at 1536, Until 08/26/24 at 1840, Administer gel. Recheck blood glucose after 15 minutes. Notify provider. 37.5 gram tube = 15 grams glucose = 1 each Glucose (Glutose 15) 40 % gel 30 g of glucose 30 g of glucose, Oral, PRN Hypoglycemia (low sugar), Other, For blood glucose below 54 mg/dL AND patient alert WITH difficulty chewing/swallowing, Starting on e 08/22/24 at 1536, Until 08/26/24 at 1840, Administer gel. Recheck blood glucose after 15 minutes. Notify provider. 37.5 gram tube = 15 grams glucose = 1 each glucose chew tab 16 g 16 g, Oral, PRN Hypoglycemia, Other, For blood glucose 54 - 69 mg/dL or 70 - 100 mg/dL with symptoms and patient alert without difficulty chewing/swallowing., Starting on e 08/22/24 at 1536, Until 08/26/24 at 1840 melatonin tab 3 mg 3 mg, Oral, HS PRN Insomnia, Starting on e 08/22/24 at 1541, Until 08/26/24 at 1840 Menthol ([place]) cough drop 1 Lozenge 1 Lozenge, Oral, Q2H PRN Sore throat, Starting on Wed08/22/24 at 1517, Until 08/26/24 at 1840 ondansetron (Zofran) inj 4 mg 4 mg, IV Push, Q6H PRN Nausea, Starting on e 08/22/24 at 1541, Until 08/26/24 at 1840 Polyethylene Glycol 3350 (Miralax) oral powder 17 g(Linked Group 2) 17 g (1 Packet), Oral, DAILY PRN Constipation, Starting on Wed08/22/24 at 1541, Until 08/26/24 at 1840, Administer if no bowel movement within past 24 hours. senna-docusate (Senokot-S) 1 Tablet(Linked Group 2) 1 Tablet, Oral, BID PRN Constipation, Starting on Racheal 08/24/24 at 1541, Until 08/26/24 at 1840, Administer in addition to polyethylene glycol if no bowel movement within past 48 hours. sodium chloride 0.9 % flush/inj 3 mL 3 mL, IV Push, PRN Other, Line Patency, Starting on Wed08/22/24 at 1515, Until 08/26/24 at 1840, Do not flush if lock, PICC, or central line not in place, IV infusing or unable to flush Linked Groups Order Group 1: Dolutegravir (Tivicay) tab 50 mgJump to med 50 mg, Oral, Daily(AM), First dose on Wed08/23/24 at 0900, Until Discontinued, Administer without regard to meals. Administer 2 hours before or 6 hours after cation-containing antacids or laxatives, sucralfate, oral supplements containing iron or calcium. And Rilpivirine (Edurant) tab 25 mgJump to med 25 mg, Oral, Daily(AM), First dose on Wed08/23/24 at 0900, Until Discontinued Group 2: Polyethylene Glycol 3350 (Miralax) oral powder 17 gJump to med 17 g (1 Packet), Oral, DAILY PRN Constipation, Starting on 08/22/24 at 1541, Until 08/26/24 at 1840, Administer if no bowel movement within past 24 hours. And senna-docusate (Senokot-S) 1 TabletJump to med 1 Tablet, Oral, BID PRN Constipation, Starting on Racheal 08/24/24 at 1541, Until 08/26/24 at 1840, Administer in addition to polyethylene glycol if no bowel movement within past 48 hours. And Bisacodyl (Dulcolax) tab 5 mgJump to med 5 mg, Oral, DAILY PRN Constipation, Starting on Wed08/25/24 at 1541, Until 08/26/24 at 1840, Administer in addition to polyethylene glycol and senna- docusate if no bowel movement in past 72 hours. And Bisacodyl (Dulcolax) supp 10 mgJump to med 10 mg, Rectal, DAILY PRN Constipation, Starting on Wed08/25/24 at 1541, Until 08/26/24 at 1840, Administer if no bowel movement within past 72 hours and patient unable to take oral medications. documented in this encounter Advance Directives * [...] Relationship Healthcare Agent Relationshi p Communication Lorin Konrad [facility] Health Care Repr esentative (appointed verbally by patient or by statute hierarchy) Care Teams Abstracter Relationship Specialty Start Date End Date Antonio Colon MD [address] [id number] PCP - General Family Medicine 02/12/22 documented as of this encounter
--- OUTSIDE RECORDS SUMMARY | 2024-09-21 08:03 | External Medical Summary ---
Author Name Unknown Address Unknown Organization : Laboratory Report Ordering Provider Test Date Status DERRELL BARBOUR 08/24/2024 21:08:26 Final Observation Date Value Abnormality Reference (Units ) Status Glucose Point of Care 08/24/2024 21:08:26 247 Above high normal 70-120 (mg/dL) Final Performing Location
--- OUTSIDE RECORDS SUMMARY | 2024-09-21 08:03 | External Medical Summary ---
Author Name Unknown Address Unknown Organization : Laboratory Report Ordering Provider Test Date Status DERRELL BARBOUR 08/24/2024 16:47:19 Final Observation Date Value Abnormality Reference (Units ) Status Glucose Point of Care 08/24/2024 16:47:19 199 Above high normal 70-120 (mg/dL) Final Performing Location
--- OUTSIDE RECORDS SUMMARY | 2024-09-21 08:03 | External Medical Summary ---
Author Name Unknown Address Unknown Organization [id number]:[facility] - [address] [address] Laboratory Report Ordering Provider Test Date Status DERRELL BARBOUR 08/26/2024 06:01:00 Final Observation Date Value Abnormality Reference (Units ) Status WBC, Total 08/26/2024 06:01:00 5.01 4.00-10.80 (K/uL) Final RBC 08/26/2024 06:01:00 3.87 4.50-5.25 (M/uL) Final Hemoglobin 08/26/2024 06:01:00 10.8 Below low normal 14.0-16.8 (g/dL) Final HCT 08/26/2024 06:01:00 34.0 Below low normal 40.0-48.4 (%) Final MCV 08/26/2024 06:01:00 87.9 82.0-99.5 (fL) Final MCH 08/26/2024 06:01:00 27.9 27.0-34.0 (pg) Final MCHC 08/26/2024 06:01:00 31.8 32.0-36.0 (g/dL) Final RDW 08/26/2024 06:01:00 13.2 11.5-15.5 (%) Final Platelets 08/26/2024 06:01:00 174 140-400 (K/uL) Final MPV 08/26/2024 06:01:00 8.6 6.6-11.1 (fL) Final Nucleated erythrocytes/100 leukocytes [Ratio] in Blood by Automated count 08/26/2024 06:01:00 0 <=0 (/100 WBCs) Final Performing Location [facility] - [address] [id number]
--- OUTSIDE RECORDS SUMMARY | 2024-09-21 08:03 | External Medical Summary ---
Author Name Unknown Address Unknown Organization : Laboratory Report Ordering Provider Test Date Status DERRELL BARBOUR 08/25/2024 15:39:49 Final Observation Date Value Abnormality Reference (Units ) Status Glucose Point of Care 08/25/2024 15:39:49 70 70-120 (mg/dL) Final Performing Location
--- OUTSIDE RECORDS SUMMARY | 2024-09-21 08:03 | External Medical Summary ---
Author Name Unknown Address Unknown Organization : Laboratory Report Ordering Provider Test Date Status DERRELL BARBUOR 08/24/2024 13:50:17 Final Observation Date Value Abnormality Reference (Units ) Status Glucose Point of Care 08/24/2024 13:50:17 86 70-120 (mg/dL) Final Performing Location
--- OUTSIDE RECORDS SUMMARY | 2024-09-21 08:03 | External Medical Summary ---
Author Name Unknown Address Unknown Organization : Laboratory Report Ordering Provider Test Date Status MICHAEL CORRAL 08/26/2024 07:24:19 Final Observation Date Value Abnormality Reference (Units ) Status Glucose Point of Care 08/26/2024 07:24:19 161 Above high normal 70-120 (mg/dL) Final Performing Location
--- OUTSIDE RECORDS SUMMARY | 2024-09-21 08:03 | External Medical Summary ---
Author Name Unknown Address Unknown Organization : Laboratory Report Ordering Provider Test Date Status MICHAEL CORRAL 08/25/2024 21:58:58 Final Observation Date Value Abnormality Reference (Units ) Status Glucose Point of Care 08/25/2024 21:58:58 208 Above high normal 70-120 (mg/dL) Final Performing Location
--- OUTSIDE RECORDS SUMMARY | 2024-09-21 08:04 | External Medical Summary ---
Author Name Unknown Address Unknown Organization : Laboratory Report Ordering Provider Test Date Status DERRELL BARBOUR 08/24/2024 07:57:15 Final Observation Date Value Abnormality Reference (Units ) Status Glucose Point of Care 08/24/2024 07:57:15 145 Above high normal 70-120 (mg/dL) Final Performing Location
--- OUTSIDE RECORDS SUMMARY | 2024-09-21 08:04 | External Medical Summary ---
Author Name Unknown Address Unknown Organization K1F:LABORATORY [facility] - [address] [address] Laboratory Report Ordering Provider Test Date Status KMABRAMNELLIE 08/24/2024 06:26:00 Final Less than 0.5 ng/mL: Low ris k for progression to sepsis. Review patients condition for localized infections.

0.5 to 2.0 ng/mL: Intermediate risk for progresion to sepsis. Review underlying conditions. Recommend repeat PCT after 6 hours has elapsed.

Greater than 2.0 ng/mL: high risk for progression to sepsis unless other causes are known. Observation Date Value Abnormality Reference (Units ) Status Procalcitonin [Mass/volume] in Serum or Plasma by Immunoassay 08/24/2024 06:26:00 10.81 Above high normal <0.10 (ng/mL) Final Performing Location LABORATORY [facility] - [address] [address]
--- OUTSIDE RECORDS SUMMARY | 2024-09-21 08:04 | External Medical Summary | Summary of Care ---
Author Name Unknown Organization [facility] Address [address] [place] [address] Phone [phone] Care Team Providers Care [employer] Rep[employer] Instructor Name Role Phone Antonio Colon MD Primary Care Provider [phone] Reason for Visit * Reason Onset Date Comments Information 08/23/2024 Encounter Details Date Type Department Care Team (Late st Contact Info) Description 08/23/2024 Telephone Vascular Surg [facility] [address] [place] [address] Benjamin Cartagena MD [address] [place] [address] Information Allergies No known active allergiesdocumented as of this encounter (statuses as of 08/23/2024) Medications Co Q 10 10 MG Oral [...] Hour (toPROL XL)Indications:Co ronary artery disease involving te-moak coronary artery of te-moak heart without angina pectoris TAKE 1 TABLET BY MOUTH EVERY DAY IN THE MORNING 90 Tablet 3 4 Suspended Prasugrel HCl 10 MG Oral Tablet (Effient)Indicati ons:Coronary artery disease involving te-moak coronary artery of te-moak heart without angina pectoris TAKE 1 TABLET BY MOUTH EVERY DAY IN THE MORNING 90 Tablet 3 4 Suspended Atorvastatin Calcium 40 MG Oral Tablet (Lipitor)Indicati ons:Dyslipidemia, goal LDL below 70 TAKE 1 TABLET BY MOUTH EVERY DAY IN THE MORNING 90 Tablet 3 4 Suspended Juluca 50-25 MG Oral Tablet Take 1 Tablet by mouth daily. 90 Tablet 3 4 Suspended Pen [place] 32G X 4 MM Use as directed. [...] Tablet 3 4 Suspended FreeStyle Carlos 2 [place] [employer] DeviceIndications :Type 2 diabetes mellitus with hemoglobin [...] UNITS IN THE MORNING. 30 mL 1 Suspended Juluca 50-25 MG Oral Tablet (Dolutegravir-Ril pivirine) Take 1 Tablet by mouth daily. 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 05/07/2023 Recurrent major depressive disorder, in full rem ission 05/05/2022 Overweight (BMI 25.0-29.9) 05/02/2022 Dyslipidemia 05/02/2022 Coronary artery disease invo lving te-moak coronary artery of te-moak heart without angina pectoris 05/02/2022 Type 2 diabetes mellitus wit h hemoglobin A1c goal of less than 8.0% 05/02/2022 Old MS (myocardial infarction) 05/02/2022 Chronic systolic (congestive) heart failure 04/14 Left bundle branch block 05/02/2022 HTN, goal below 130/80 HIV positive documented as of this encounter (statuses as of 08/23/2024) Resolved Problems Problem Noted Date Diagnosed Date Resolved Date Chronic heart failure with p reserved ejection fraction 11/24/2022 02/04/2023 Kidney disease, chronic, sta ge IV (GFR 15-29 ml/min) 05/02/2022 02/02/2024 ARDS (adult respiratory distress syndrome) 06/17/2012 05/02/2022 Acute pancreatitis 06/14/2012 Acute respiratory distress 06/14/2012 0 05/02/2022 documented as of this encounter (statuses as of 08/23/2024) Immunizations Name Administration Dates Next Due COVID-19 [...] No 01/18/2024 Does the household have a [facility] source of income? (Household - for ages [...] encounter Miscellaneous Notes * Telephone Encounter - Arline Walker OSA - 08/23/2024 9:13 AM EST Lmom to reschedule patient's appointment with Dr Cartagena. documented in this encounter Plan of Treatment Upcoming Encounters Date Type Department Care Team (Late st Contact Info) Description 09/19/2024 3:30 PM EST Office Visit Cardiology, [facility] [address] [facility] [place] [address] Davy Mota MD [address] [place] [address] 10/13/2024 9:00 AM EST Office Visit Family Practice [facility] [place] [address] Antonio Colon MD [address] [facility] [place] [address] Scheduled Procedures Name Priority Associated Diagnoses Date/Ti [...] Healthcare Agent Relationshi p Communication Lorin Silvestre [facility] Care Repr esentative (appointed verbally by patient or by statute hierarchy) Care Teams Automotive Collision Repair Instructor Relationship Specialty Start Date End Date Antonio Colon MD [address] [id number] PCP - General Family Medicine 02/12/22 documented as of this encounter
--- OUTSIDE RECORDS SUMMARY | 2024-09-21 08:04 | External Medical Summary ---
Author Name Unknown Address Unknown Organization K1F:LABORATORY [facility] - [address] [address] Laboratory Report Ordering Provider Test Date Status JUAN PABLOKATERIN ULLOAOY 08/22/2024 16:12:00 Final Observation Date Value Abnormality Reference (Units ) Status TSH 08/22/2024 16:12:00 2.18 0.27-4.20 (uIU/mL) Final Performing Location LABORATORY [facility] - [address] [address]
--- OUTSIDE RECORDS SUMMARY | 2024-09-21 08:04 | External Medical Summary ---
Author Name Unknown Address Unknown Organization K1F:LAB[facility]ATORY [facility] - [address] [address] Laboratory Report Ordering Provider Test Date Status ELIZABETH ALMEIDA 08/22/2024 16:12:00 Final Observation Date Value Abnormality Reference (Units ) Status CK 08/22/2024 16:12:00 64 39-308 (U/ L) Final Performing Location LABORATORY [facility] - [address] [address]
--- OUTSIDE RECORDS SUMMARY | 2024-09-21 08:04 | External Medical Summary ---
Author Name Unknown Address Unknown Organization K1F:LABORATORY [facility] - [address] [address] Laboratory Report Ordering Provider Test Date Status ELIZABETH ALMEIDA 08/22/2024 18:21:00 Final Observation Date Value Abnormality Reference (Units ) Status WBC, Total 08/22/2024 18:21:00 5.40 4.00-10.80 (K/uL) Final RBC 08/22/2024 18:21:00 3.61 4.50-5.25 (M/uL) Final Hemoglobin 08/22/2024 18:21:00 10.4 Below low normal 14.0-16.8 (g/dL) Final HCT 08/22/2024 18:21:00 31.4 Below low normal 40.0-48.4 (%) Final MCV 08/22/2024 18:21:00 87.0 82.0-99.5 (fL) Final MCH 08/22/2024 18:21:00 28.8 27.0-34.0 (pg) Final MCHC 08/22/2024 18:21:00 33.1 32.0-36.0 (g/dL) Final RDW 08/22/2024 18:21:00 13.2 11.5-15.5 (%) Final Platelets 08/22/2024 18:21:00 124 Below low normal 140-400 (K/uL) Final MPV 08/22/2024 18:21:00 8.8 6.6-11.1 (fL) Final Nucleated erythrocytes/100 leukocytes [Ratio] in Blood by Automated count 08/22/2024 18:21:00 0 <=0 (/100 WBCs) Final Performing Location LABORATORY [facility] - [address] [address]
--- OUTSIDE RECORDS SUMMARY | 2024-09-21 08:04 | External Medical Summary ---
Author Name Unknown Address Unknown Organization : Laboratory Report Ordering Provider Test Date Status BAN CHOU 08/23/2024 07:48:12 Final Observation Date Value Abnormality Reference (Units ) Status Glucose Point of Care 08/23/2024 07:48:12 148 Above high normal 70-120 (mg/dL) Final Performing Location
--- OUTSIDE RECORDS SUMMARY | 2024-09-21 08:04 | External Medical Summary ---
Author Name Unknown Address Unknown Organization : Laboratory Report Ordering Provider Test Date Status ELIZABETH ALMEIDA 08/22/2024 21:28:09 Final Observation Date Value Abnormality Reference (Units ) Status Glucose Point of Care 08/22/2024 21:28:09 58 Below low normal 70-120 (mg/dL) Final Performing Location
--- OUTSIDE RECORDS SUMMARY | 2024-09-21 08:04 | External Medical Summary ---
Author Name Unknown Address Unknown Organization K1F:LABORATORY [facility] - [address] [address] Laboratory Report Ordering Provider Test Date Status ELIZABETH ALMEIDA 08/22/2024 16:12:00 Final Anticoagulation may affect t esting. Refer to [employer] Test Catalog for a list of effects. Observation Date Value Abnormality Reference (Units ) Status aPTT panel - Platelet poor plasma 08/22/2024 16:12:00 34 21-38 (seconds) Final Performing Location LABORATORY [facility] - [address] [address]
--- OUTSIDE RECORDS SUMMARY | 2024-09-21 08:04 | External Medical Summary ---
Author Name Unknown Address Unknown Organization K1F:LABORATORY [facility] - [address] [place] [address] Laboratory Report Ordering Provider Test Date Status ELIZABETH ALMEIDA 08/22/2024 16:12:00 Final Rheumatoid factor at a level above 50 [...] definitively correlate with clinical severity of disease. Observation Date Value Abnormality Reference (Units ) Status Fibrin D-dimer FEU [Mass/volume] in Platelet poor plasma by Immunoassay 08/22/2024 16:12:00 2.71 Above high normal <0.50 (ug/mL FEU) Final Performing Location LABORATORY [facility] - [address] [address]
--- OUTSIDE RECORDS SUMMARY | 2024-09-21 08:04 | External Medical Summary ---
Author Name Unknown Address Unknown Organization K1F:LABORATORY [facility] - [address] [address] Laboratory Report Ordering Provider Test Date Status EFFIECEVALLOS 08/24/2024 06:26:00 Final Observation Date Value Abnormality Reference (Units ) Status Vancomycin, level 08/24/2024 06:26:00 14.6 10 .0-40.0 (ug/mL) Final Performing Location LABORATORY [facility] - [address] [address]
--- OUTSIDE RECORDS SUMMARY | 2024-09-21 08:04 | External Medical Summary ---
Author Name Unknown Address Unknown Organization : Laboratory Report Ordering Provider Test Date Status BAN CHOU 08/23/2024 23:50:23 Final Observation Date Value Abnormality Reference (Units ) Status Glucose Point of Care 08/23/2024 23:50:23 179 Above high normal 70-120 (mg/dL) Final Performing Location
--- OUTSIDE RECORDS SUMMARY | 2024-09-21 08:04 | External Medical Summary ---
Author Name Unknown Address Unknown Organization K1F:LABORATORY [facility] - [address] [address] Laboratory Report Ordering Provider Test Date Status BAN CHOU 08/24/2024 06:26:00 Final Observation Date Value Abnormality Reference (Units ) Status WBC, Total 08/24/2024 06:26:00 6.68 4.00-10.80 (K/uL) Final RBC 08/24/2024 06:26:00 4.07 4.50-5.25 (M/uL) Final Hemoglobin 08/24/2024 06:26:00 11.5 Below low normal 14.0-16.8 (g/dL) Final HCT 08/24/2024 06:26:00 35.8 Below low normal 40.0-48.4 (%) Final MCV 08/24/2024 06:26:00 88.0 82.0-99.5 (fL) Final MCH 08/24/2024 06:26:00 28.3 27.0-34.0 (pg) Final MCHC 08/24/2024 06:26:00 32.1 32.0-36.0 (g/dL) Final RDW 08/24/2024 06:26:00 13.7 11.5-15.5 (%) Final Platelets 08/24/2024 06:26:00 197 140-400 (K/uL) Final MPV 08/24/2024 06:26:00 9.3 6.6-11.1 (fL) Final Nucleated erythrocytes/100 leukocytes [Ratio] in Blood by Automated count 08/24/2024 06:26:00 0 <=0 (/100 WBCs) Final Performing Location LABORATORY [facility] - [address] [address]
--- OUTSIDE RECORDS SUMMARY | 2024-09-21 08:04 | External Medical Summary ---
Author Name Unknown Address Unknown Organization K1F:LABORATORY [facility] - [address] [address] Laboratory Report Ordering Provider Test Date Status ELIZABETH ALMEIDA 08/23/2024 06:25:00 Final Observation Date Value Abnormality Reference (Units ) Status WBC, Total 08/23/2024 06:25:00 6.04 4.00-10.80 (K/uL) Final RBC 08/23/2024 06:25:00 3.26 4.50-5.25 (M/uL) Final Hemoglobin 08/23/2024 06:25:00 9.3 Below low normal 14.0-16.8 (g/dL) Final HCT 08/23/2024 06:25:00 28.4 Below low normal 40.0-48.4 (%) Final MCV 08/23/2024 06:25:00 87.1 82.0-99.5 (fL) Final MCH 08/23/2024 06:25:00 28.5 27.0-34.0 (pg) Final MCHC 08/23/2024 06:25:00 32.7 32.0-36.0 (g/dL) Final RDW 08/23/2024 06:25:00 13.4 11.5-15.5 (%) Final Platelets 08/23/2024 06:25:00 108 Below low normal 140-400 (K/uL) Final MPV 08/23/2024 06:25:00 9.4 6.6-11.1 (fL) Final Nucleated erythrocytes/100 leukocytes [Ratio] in Blood by Automated count 08/23/2024 06:25:00 0 <=0 (/100 WBCs) Final Performing Location LABORATORY [facility] - [address] [address]
--- OUTSIDE RECORDS SUMMARY | 2024-09-21 08:04 | External Medical Summary | Summary of Care ---
Author Name Unknown Organization [facility] Address [address] [place] [address] Phone [phone] Care Team Providers Care Rn Chemical Dependency Name Role Phone Antonio Colon MD Primary Care Provider [phone] Reason for Visit * Reason Comments Follow Up HIV Encounter Details Date Type Department Care Team (Late st Contact Info) Description 08/22/2024 10:20 AM EST Office Visit Infectious Disease Treatment, [address] [phone] Shirley Asencio MD [address] [place] [address] HIV, asymptomatic (HCC)*; Exposure to chlamydia; Exposure to gonorrhea Allergies No known active allergiesdocumented as of [...] Hour (toPROL XL)Indications:C oronary artery disease involving [place] coronary artery of [place] heart without angina pectoris TAKE 1 TABLET BY MOUTH EVERY DAY IN THE MORNING 90 Tablet 3 4 Suspended Prasugrel HCl 10 MG Oral Tablet (Effient)Indicat ions:Coronary artery disease involving [place] coronary artery of [place] heart without angina pectoris TAKE 1 TABLET BY MOUTH EVERY DAY IN THE MORNING 90 Tablet 3 4 Suspended Atorvastatin Calcium 40 MG Oral Tablet (Lipitor)Indicat ions:Dyslipidemi a, goal LDL below 70 TAKE 1 TABLET BY MOUTH EVERY DAY IN THE MORNING 90 Tablet 3 4 Suspended Juluca 50-25 MG Oral Tablet Take 1 Tablet by mouth daily. 90 Tablet 3 4 Suspended Pen [place] 32G X 4 MM Use as directed. Use to inject insulin 4 times daily E11.9 400 Each 3 4 Suspended Sevelamer Carbonate 800 MG Oral Tablet (Renvela) Take 1 Tablet by mouth in the morning and 1 Tablet at noon and 1 Tablet in the evening. Take with meals. 4 024 Discontinued (Medication List Clean Up) FLUoxetine HCl 20 MG Oral Capsule (PROzac)Indicati [...] Tablet 3 4 Suspended FreeStyle Carlos 2 [place] DeviceIndication s:Type 2 diabetes mellitus with hemoglobin A1c goal of less than 8.0% (HCC) Use as directed. Use to test BG E10.65 1 Each 4 Suspended FreeStyle Carlos 2 SensorIndication s:Type 2 diabetes mellitus with hemoglobin A1c goal of less than 8.0% (HCC) Use as directed. Use one sensor every 14 days for blood sugar E10.65 1 Each 4 Suspended Fiasp FlexTouch 100 UNIT/ML Subcutaneous Solution Pen-injector (Insulin Aspart (w/Niacinamide)) Indications:Type 2 diabetes mellitus with hemoglobin A1c goal of less than 8.0% ([facility]) Inject 10 Units under the skin in the morning and 10 Units at noon and 10 Units before bedtime. With meals. 15 mL 3 04/27/2024 10:53 AM EDT 4 Suspended Basaglar KwikPen 100 UNIT/ML Subcutaneous Solution Pen-injector (Insulin Glargine Solostar) INJECT UNDER THE SKIN 22 UNITS IN THE MORNING. 30 mL 1 4 Suspended Juluca 50-25 MG Oral Tablet (Dolutegravir-Ri lpivirine) Take 1 Tablet by mouth daily. 30 Tablet 11 4 025 Suspended Hospital, Clinic, or Other Facility Administered Medication Ordered Dose Route Frequency Start Date End Date Status Albuterol Sulfate (Proventil) (2.5 MG/3ML) 0.083% inhalation solution 2.5 mgIndications:ESRD on dialysis ([facility]),Pre-transplant evaluation for ESRD (end stage renal disease) 2.5 mg NEBULIZER PRN 03/24/2024 Acti ve Albuterol Sulfate (Proventil) (5 MG/ML) 0.5% *conc* inhalation solution 2.5 mgIndications:ESRD on dialysis ([facility]),Pre-transplant evaluation for ESRD (end stage renal disease) 2.5 mg NEBULIZER PRN 03/24/2024 Acti ve documented as of this encounter (statuses as of 08/24/2024) Active Problems Problem Noted Date Diagnosed Date HIV disease 08/23/2024 Rigors 08/22/2024 AVF (arteriovenous fistula) 07/19/2024 ESRD (end stage renal disease) on dialysis 02/01 History of GI bleed 02/02/2024 Overview (02/02/2024): Duodenal ulcer Duodenal ulcer 02/02/2024 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 05/07/2023 Recurrent major depressive disorder, in full rem ission 05/05/2022 Overweight (BMI 25.0-29.9) 05/02/2022 Dyslipidemia 05/02/2022 Coronary artery disease invo lving [place] coronary artery of [place] heart without angina pectoris 05/02/2022 Type 2 diabetes mellitus wit h hemoglobin A1c goal of less than 8.0% 05/02/2022 Old [place] (myocardial infarction) 05/02/2022 Chronic [...] 30 S tarted: 1974 Smokeless Tobacco: Never Tobacco Cessation:Counseling Given: Not Answered Alcohol Use Standard Drinks/Week Comments Not Currently [...] Sign Reading Time Taken Comments Blood Pressure 110/62 08/22/2024 10:11 AM EST Pulse 74 08/22/2024 10:11 AM EST Temperature 36.8 C (98.2 F) 08/22/2024 10:[address] Respiratory Rate - - Oxygen Saturation 98% 08/22/2024 10:11 AM EST Inhaled Oxygen Concentration - - Weight 77.1 kg (170 lb) 08/22/2024 10:11 AM EST Height - - Body Mass Index 25.1 08/21/2024 11:10 AM EST documented in this encounter Functional Status [...] Progress Notes * Shirley Asencio MD - 08/22/2024 10:09 AM EST Tad Silvestre is a 69 year old male who presents to the Infectious Disease clinic for HIV follow-upvisit..PMHx Lyme disease,pancreatitis,DM 2,diverticulitis,HD TTS ,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 He re-started his ART when his CD4 dropped to 400.He thinks he has been on both Atripla and Complera and has been on Juluca for the past 2 years with his most recent CD4 571(03/06) and VL 133 in 03/06.Patient reports he misses his pills twice a week .Patient reports he is having trouble with his HD catheter and has had them changed 4 times Fully vaccinated for his pneumonia, hepatitis B vaccine had influenza vaccine His Pharmacy is now [facility] [address] Past Medical History: Diagnosis Date Chronic heart failure with preserved ejection fraction (HCC) 11/24/2022 Coronary artery disease involving [place] coronary artery of [place] heart without angina pectoris 05/02/2022 Duodenal ulcer 02/02/2024 Dyslipidemia 05/02/2022 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 05/07/2023 History of GI bleed 02/02/2024 Duodenal ulcer HIV positive ([facility]) Hypertension Kidney disease, chronic, stage IV (GFR 15-29 ml/min) ([facility]) 05/02/2022 Left bundle branch block 05/02/2022 Old [place] (myocardial infarction) 05/02/2022 Overweight (BMI 25.0-29.9) 05/02/2022 Recurrent major depressive disorder, in full remission ([facility]) 05/05/2022 Systolic and diastolic CHF, chronic ([facility]) 05/02/2022 Type 2 diabetes mellitus with hemoglobin A1c goal of less than 8.0% ([facility]) 05/02/2022 Additional Hx: Is the patient sexually active? yes Types of sexual behavior: receptive oral sex and insertive oral sex Safer sex guidelines discussed? yes The following risk modifying behavior was discussed extensively with patient to prevent STIs, Hepatitis B and C infection, which included safe sexual practices, drug use and other risky behavior: male condom, gloves (finger or hand insertion), water-based lubrication (to prevent abrasion), and clean sex toys Does patient have a psychiatric history? yes If Yes, Psychiatric history: Anxiety and depression Depression Screening: Allergies: Review of patient's allergies indicates: No Known Allergies Current Outpatient Medication List Current Outpatient Medications Medication Sig Dispense Refill Vitamin D-3 25 MCG (1000 UT) Oral Capsule Take 1 Capsule by mouth in the morning. Co Q 10 10 MG Oral Capsule Take by mouth 1 Caplet Dosing Unit daily . Aspirin 81 MG Oral Capsule Take by mouth 1 Caplet Dosing Unit daily . Multi-Day Oral Tablet Take by mouth 1 Tablet in the morning. Metoprolol Succinate ER 25 [...] by mouth daily. 90 Tablet 3 Pen [place] 32G X 4 MM Use as directed. [...] morning. 90 Tablet 3 FreeStyle Carlos 2 [place] Device Use as directed. Use to test BG E10.65 1 Each 0 FreeStyle Carlos 2 Sensor Use as directed. [...] UNITS IN THE MORNING. 30 mL 1 Current Facility-Administered Medications Medication Dose Route Frequency Provider Last Rate Last Admin Albuterol Sulfate (Proventil) (2.5 MG/3ML) 0.083% inhalation solution 2.5 mg 2.5 mg Nebulizer PRN Albuterol Sulfate (Proventil) (5 MG/ML) 0.5% *conc* inhalation solution 2.5 mg 2.5 mg Nebulizer PRN2.5 mg at 04/27/24 1108 SocHx: Does the patient smoke or has smoked in the past? yes Does the patient use alcohol or has the patient used alcohol in the past? yes Does the patient use drugs or has the patient used drugs in the past? yes If yes, which drugs? Cocaine meth Drug use discussed with patient? yes HIV History When were you diagnosed with HIV? 1987 HIV transmission category:Homosexual contact How do you believe you acquired HIV? Ex partner What medications where you previously on? AZT and Crixivan,ritonavir,atripla , complera and Juluca Where did you previously receive your care? [facility] Any history of opportunistic infections? No Immunizations: Immunization History Administered Date(s) Administered COVID-19 mRNA, LNP-s, No Preserve, 2-Dose Series (Moderna) 10/24/2020, 11/27/2020 COVID-19, MRNA-LNP, PF, 50 MCG/0.5 mL, 12 YRS AND ABOVE, IM (MODERNA-Spikevax) 08/05/2021 Covid-19, Mrna, Lnp-s, Pf, Bivalent, 30 Mcg, IM, 12 yrs and above (Pfizer) 09/09/2022 Hepatitis B, 20+ yrs 08/25/2017 Meningococcal MCV4P Conjugate Vaccine (Menactra) 02/03/2013, 08/04/2017 Pneumococcal Conjugate Vacc, 13 Valent (Prevnar) 07/23/2017, 08/21/2018 Pneumococcal Polysaccharide PPV23 (Pneumovax) 07/20/2012 Seasonal Influenza Vac., MDV, IM, 0.5 mL (Fluzone) 08/21/2018, 12/23/2018, 10/05/2019, 05/07/2020, 06/19/2021 Seasonal Influenza Virus Vaccine, Unspecified Formulation 08/21/2018, 10/05/2019, 06/19/2021 Seasonal Influenza, Quadrivalent Hd (Fluzone Hd) 06/19/2021, 09/09/2022, 08/12/2023 TDAP (age 10 and older)(Boostrix) 07/23/2017 ROS: Patient complains of no specific complaints (Pt Vital Signs - import automatically) There were no vitals taken for this visit. Pt exam: Skin: no rashes or significant lesions Oropharynx: Oropharynx clear Lymph: no adenopathy Lungs: clear to auscultation Heart: regular rate and rhythm Abdomen: abdomen soft Neuro Exam: alert & oriented x 3 with fluent speech Extremities: no trauma Laboratory Data: Laboratory Data: Results for orders placed or performed in visit on 05/07/23 CD4P T-CELL SUBSET PANEL, FLOW CYTOMETRY Result Value Ref Range Total WBC Count 7.1 4.0 - 10.8 K/uL Percent Lymphs 29.6 18.0 - 42.0 % Absolute Lymphs 2,102 1,000 - 4,800 cells/uL CD3 (T Cells) 67 61 - 88 % Absolute CD3 1,398 510 - 2,265 cells/uL CD8 (T Suppressor) 36 (H) 13 - 35 % Absolute CD8 749 150 - 790 cells/uL CD4 (T [place]) 28 (L) 35 - 62 % Absolute CD4 599 330 - 1,520 cells/uL CD4:CD8 Ratio 0.8 0.8 - 3.5 % Results for orders placed or performed in visit on 06/09/22 CD4P T-CELL SUBSET PANEL, FLOW CYTOMETRY Result Value Ref Range Total WBC Count 8.3 4.0 - 10.8 K/uL Percent Lymphs 24.2 18.0 - 42.0 % Absolute Lymphs 2,009 1,000-4,800 cells/uL CD3 (T Cells) 69 61 - 88 % Absolute CD3 1,380 510-2,265 cells/uL CD8 (T Suppressor) 38 (H) 13 - 35 % Absolute CD8 754 150 - 790 cells/uL CD4 (T [place]) 26 (L) 35 - 62 % Absolute CD4 526 330-1,520 cells/uL CD4:CD8 Ratio 0.7 (L) 0.8 - 3.5 % Results for orders placed or performed in visit on 05/07/22 CD4P T-CELL SUBSET PANEL, FLOW CYTOMETRY Result Value Ref Range Total WBC Count 6.6 4.0 - 10.8 K/uL Percent Lymphs 25.2 18.0 - 42.0 % Absolute Lymphs 1,663 1,000-4,800 cells/uL CD3 (T Cells) 75 61 - 88 % Absolute CD3 1,251 510-2,265 cells/uL CD8 (T Suppressor) 35 13 - 35 % Absolute CD8 589 150 - 790 cells/uL CD4 (T [place]) 35 35 - 62 % Absolute CD4 583 330-1,520 cells/uL CD4:CD8 Ratio 1.0 0.8 - 3.5 % Results for orders placed or performed during the hospital encounter of 06/14/12 CD4 PANEL Result Value Ref Range CD4 SPECIMEN SOURCE BLOOD CD3 57.1 (L) 61.0 - 88.0 % POSITIVE CD4 28.4 (L) 32.0 - 62.0 % POSITIVE CD8 27.5 13.0 - 35.0 % POSITIVE CD4:CD8 RATIO 1.0 0.8 - 3.5 WBC 16.51 THOU/mm3 % LYMPHS 6 % ABS CD3 566 510 - 2265 LYMPHS/uL ABS CD4 282 (L) 330 - 1520 LYMPHS/UL ABS CD8 272 150 - 790 LYMPHS/UL Results for orders placed or performed in visit on 05/07/23 HIV-1 RNA QUANTITATIVE Specimen: Blood, Venous Result Value Ref Range HIV RNA Result 77 (H) <=0 copies/mL HIV RNA Log 1.89 (H) <=0.00 log copies/mL Clinical Significance Test results have been reported to [facility]. The HIV-1 assay is intended for [...] monitor HIV-1 disease progression before or during antiretroviraldrug therapy. The HIV-1 assay is not intended for use as a screening test for the presence of HIV-1in donated blood or plasma or as a diagnostic test to confirm the presence of HIV-1 infection. Result Comment The HIV-1 assay is an in vitro nucleic acid amplification test for the quantitation of human immunodeficiency virus type 1 (HIV-1) in EDTA plasma of SSJ-7-frkcltam individuals using an automated system for specimen processing, amplification and detection. This test detects and quantifies, but does not discriminate between HIV groups M, N, and O subtypes. The test can quantitate HIV-1 RNA over a reportable range of 20-10,000,000 copies/mL (1.30-7.00 log copies/mL). For low volume specimens (<350uL of plasma) the reportable range is 50-10,000,000 copies/mL (1.70-7.00 log copies/mL). Comment The assay was verified and performance characteristics determined by the [facility]. This test is used for clinical purposes. References 1. Centers for Disease Control and Prevention and Association of Public Health Laboratories. Laboratory Testing for the Diagnosis of HIV Infection: Updated Recommendations. March 09, 2014. Available at http://stacks.cdc.gov/view/cdc/03016 2. Adarsh HF, Laurie MS, Sukumar CA, et al: Antiretroviral Drugs for Treatment and Prevention of HIVInfection in Adults: 2016 Recommendations of the International Antiviral Society-[place] Panel. CHRISTIANO 2016;316(2):191-210. Available at https://jamanetwork.com/journals/christiano/fullarticle/7340938 3. Panel on Antiretroviral Guidelines for Adults and Adolescents: Guidelines for the Use of Antiretroviral Agents in Adults and Adolescents Living with HIV. U.S. Department of Health and Human Services. June 29, 2017. Available at https://aidsinfo.nih.gov/guidelines/html/1/lgwmm-rsu-emizfjbaqx-ar v/3/ahhaz-gco-drmbmsp-bizrrnqhmz-zjt-qfggkz-up Results for orders placed or performed in visit on 06/09/22 HIV-1 RNA QUANTITATIVE Specimen: Blood, Venous Result Value Ref Range HIV RNA Result <20 (H) <=0 copies/mL HIV RNA Log <1.30 (H) <=0.00 log copies/mL HIV Interpretation The result is not quantifiable: below the lower limit of detection (LLoD) of the assay. Clinical Significance Test results have been reported to [facility]. The HIV-1 assay is intended for [...] monitor HIV-1 disease progression before or during antiretroviraldrug therapy. The HIV-1 assay is not intended for use as a screening test for the presence of HIV-1in donated blood or plasma or as a diagnostic test to confirm the presence of HIV-1 infection. Result Comment The HIV-1 assay is an in vitro nucleic acid amplification test for the quantitation of human immunodeficiency virus type 1 (HIV-1) in EDTA plasma of GYM-1-xtnwlouw individuals using an automated system for specimen processing, amplification and detection. This test detects and quantifies, but does not discriminate between HIV groups M, N, and O subtypes. The test can quantitate HIV-1 RNA over a reportable range of 20-10,000,000 copies/mL (1.30-7.00 log copies/mL). For low volume specimens (<350uL of plasma) the reportable range is 50-10,000,000 copies/mL (1.70-7.00 log copies/mL). Comment The assay was verified and performance characteristics determined by the [facility]. This test is used for clinical purposes. References 1. Centers for Disease Control and Prevention and Association of Public Health Laboratories. Laboratory Testing for the Diagnosis of HIV Infection: Updated Recommendations. March 09, 2014. Available at http://stacks.cdc.gov/view/cdc/57727 2. Adarsh HF, Laurie MS, Sukumar CA, et al: Antiretroviral Drugs for Treatment and Prevention of HIVInfection in Adults: 2016 Recommendations of the International Antiviral Society-[place] Panel. CHRISTIANO 2016;316(2):191-210. Available at https://jamanetwork.com/journals/christiano/fullarticle/9905933 3. Panel on Antiretroviral Guidelines for Adults and Adolescents: Guidelines for the Use of Antiretroviral Agents in Adults and Adolescents Living with HIV. U.S. Department of Health and Human Services. June 29, 2017. Available at https://aidsinfo.nih.gov/guidelines/html/1/todex-fqo-kffofolmby-ar v/3/aghtu-wyg-rvdawbx-djlmnmtcli-aaa-niphuy-up Results for orders placed or performed in visit on 05/07/22 HIV-1 RNA QUANTITATIVE Specimen: Blood, Venous Result Value Ref Range HIV RNA Result Negative. No HIV RNA detected. Negative. No HIV RNA detected. Clinical Significance Test results have been reported to [facility]. The HIV-1 assay is intended for use [...] monitor HIV-1 disease progression before or during antiretroviraldrug therapy. The HIV-1 assay is not intended for use as a screening test for the presence of HIV-1in donated blood or plasma or as a diagnostic test to confirm the presence of HIV-1 infection. Result Comment The HIV-1 assay is an in vitro nucleic acid amplification test for the quantitation of human immunodeficiency virus type 1 (HIV-1) in EDTA plasma of GFB-2-bfxqibgt individuals using an automated system for specimen processing, amplification and detection. This test detects and quantifies, but does not discriminate between HIV groups M, N, and O subtypes. The test can quantitate HIV-1 RNA over a reportable range of 20-10,000,000 copies/mL (1.30-7.00 log copies/mL). For low volume specimens (<350uL of plasma) the reportable range is 50-10,000,000 copies/mL (1.70-7.00 log copies/mL). Comment The assay was verified and performance characteristics determined by the [facility]. This test is used for clinical purposes. References 1. Centers for Disease Control and Prevention and Association of Public Health Laboratories. Laboratory Testing for the Diagnosis of HIV Infection: Updated Recommendations. March 09, 2014. Available at http://stacks.cdc.gov/view/cdc/19181 2. Adarsh RIVERA, Laurie MS, Sukumar CA, et al: Antiretroviral Drugs for Treatment and Prevention of HIVInfection in Adults: 2016 Recommendations of the International Antiviral Society-[place] Panel. CHRISTIANO 2016;316(2):191-210. Available at https://jamanetwork.com/journals/christiano/fullarticle/5789064 3. Panel on Antiretroviral Guidelines for Adults and Adolescents: Guidelines for the Use of Antiretroviral Agents in Adults and Adolescents Living with HIV. U.S. Department of Health and Human Services. June 29, 2017. Available at https://aidsinfo.nih.gov/guidelines/html/1/aqyaa-bef-srnissqxmz-ar v/3/ynoix-yrj-vfgmasn-wlnpkxwatf-gdj-kordnm-up Results for orders placed or performed in visit on 04/11/24 COMPREHENSIVE METABOLIC PANEL Result Value Ref Range BUN 17 6 - 20 mg/dL CREATININE 2.4 (H) 0.6 - 1.2 mg/dL EGFR 28 (L) >=60 mL/min SODIUM 137 135 - 146 mmol/L POTASSIUM 3.5 3.5 - 5.1 mmol/L CHLORIDE 96 (L) 98 - 107 mmol/L CO2 28 22 - 32 mmol/L ANION GAP 13 7 - 15 mmol/L GLUCOSE 184 (H) 70 - 120 mg/dL Albumin 4.5 3.8 - 5.0 g/dL AST 36 10 - 50 U/L Alkaline Phosphatase 101 35 - 130 U/L Bilirubin, Total 0.4 <=1.2 mg/dL CALCIUM 9.4 8.4 - 10.2 mg/dL Protein 8.2 6.0 - 8.3 g/dL ALT 30 10 - 50 U/L Results for orders placed or performed in visit on 05/07/23 COMPREHENSIVE METABOLIC PANEL Result Value Ref Range BUN 38 (H) 6 - 20 mg/dL CREATININE 2.9 (H) 0.6 - 1.2 mg/dL EGFR 22 (L) >=60 mL/min SODIUM 134 (L) 135 - 146 mmol/L POTASSIUM 5.6 (H) 3.5 - 5.1 mmol/L CHLORIDE 104 98 - 107 mmol/L CO2 20 (L) 22 - 32 mmol/L ANION GAP 10 7 - 15 mmol/L GLUCOSE 299 (H) 70 - 120 mg/dL Albumin 4.1 3.8 - 5.0 g/dL AST 38 10 - 50 U/L Alkaline Phosphatase 77 35 - 130 U/L Bilirubin, Total 0.4 <=1.2 mg/dL CALCIUM 9.8 8.4 - 10.2 mg/dL Protein 6.4 6.0 - 8.3 g/dL ALT 56 (H) 10 - 50 U/L Results for orders placed or performed in visit on 06/09/22 COMPREHENSIVE METABOLIC PANEL Result Value Ref Range BUN 54 (H) 6 - 20 mg/dL CREATININE 3.2 (H) 0.6 - 1.2 mg/dL EGFR 20 (L) >=60 mL/min SODIUM 136 135 - 146 mmol/L POTASSIUM 5.2 (H) 3.5 - 5.1 mmol/L CHLORIDE 104 98 - 107 mmol/L CO2 20 (L) 22 - 32 mmol/L ANION GAP 12 7 - 15 mmol/L GLUCOSE 215 (H) 70 - 120 mg/dL Albumin 4.6 3.8 - 5.0 g/dL AST 32 10 - 50 U/L Alkaline Phosphatase 88 35 - 130 U/L Bilirubin, Total 0.4 <=1.2 mg/dL CALCIUM 9.9 8.4 - 10.2 mg/dL Protein 7.3 6.0 - 8.3 g/dL ALT 54 (H) 10 - 50 U/L Results for orders placed or performed in visit on 04/11/24 CBC Result Value Ref Range WBC 4.27 4.00 - 10.80 K/uL RBC 4.42 4.50 - 5.25 M/uL HGB 13.0 (L) 14.0 - 16.8 g/dL HCT 38.6 (L) 40.0 - 48.4 % MCV 87.3 82.0 - 99.5 fL MCH 29.4 27.0 - 34.0 pg MCHC 33.7 32.0 - 36.0 g/dL RDW 12.7 11.5 - 15.5 % PLT 167 140 - 400 K/uL MPV 9.0 6.6 - 11.1 fL Results for orders placed or performed in visit on 05/07/23 CBC Result Value Ref Range WBC 7.06 4.00 - 10.80 K/uL RBC 4.77 4.50 - 5.25 M/uL HGB 13.4 (L) 14.0 - 16.8 g/dL HCT 42.6 40.0 - 48.4 % MCV 89.3 82.0 - 99.5 fL MCH 28.1 27.0 - 34.0 pg MCHC 31.5 32.0 - 36.0 g/dL RDW 13.6 11.5 - 15.5 % PLT 195 140 - 400 K/uL MPV 9.5 6.6 - 11.1 fL nRBCs 0 <=0 /100 WBCs Results for orders placed or performed in visit on 06/09/22 CBC Result Value Ref Range WBC 8.27 4.00 - 10.80 K/uL RBC 5.22 4.50 - 5.25 M/uL HGB 14.9 14.0 - 16.8 g/dL HCT 45.1 40.0 - 48.4 % MCV 86.4 82.0 - 99.5 fL MCH 28.5 27.0 - 34.0 pg MCHC 33.0 32.0 - 36.0 g/dL RDW 14.4 11.5 - 15.5 % PLT 229 140 - 400 K/uL MPV 9.7 6.6 - 11.1 fL nRBCs 0 <=0 /100 WBCs Results for orders placed or performed in visit on 04/11/24 DIFFERENTIAL, AUTOMATED Result Value Ref Range WBC 4.27 4.00 - 10.80 K/uL Neutrophils % 55.0 40.0 - 75.0 % Lymphocytes % 23.7 18.0 - 42.0 % Monocytes % 19.7 (H) 1.0 - 11.0 % Eosinophils % 1.4 0.0 - 6.0 % Basophils % 0.2 0.0 - 2.0 % Absolute Neutrophils 2.35 1.80 - 7.70 K/uL Absolute Lymphocytes 1.01 1.00 - 4.80 K/ul Absolute Monocytes 0.84 0.00 - 1.10 K/uL Absolute Eosinophils 0.06 0.00 - 0.70 K/uL Absolute Basophils 0.01 0.00 - 0.20 K/uL CBC Result Value Ref Range WBC 4.27 4.00 - 10.80 K/uL RBC 4.42 4.50 - 5.25 M/uL HGB 13.0 (L) 14.0 - 16.8 g/dL HCT 38.6 (L) 40.0 - 48.4 % MCV 87.3 82.0 - 99.5 fL MCH 29.4 27.0 - 34.0 pg MCHC 33.7 32.0 - 36.0 g/dL RDW 12.7 11.5 - 15.5 % PLT 167 140 - 400 K/uL MPV 9.0 6.6 - 11.1 fL Results for orders placed or performed in visit on 02/02/24 DIFFERENTIAL, AUTOMATED Result Value Ref Range WBC 5.93 4.00 - 10.80 K/uL Neutrophils % 60.2 40.0 - 75.0 % Lymphocytes % 25.8 18.0 - 42.0 % Monocytes % 8.8 1.0 - 11.0 % Eosinophils % 4.4 0.0 - 6.0 % Basophils % 0.3 0.0 - 2.0 % Immature Granulocytes % 0.5 0.0 - 2.0 % Absolute Neutrophils 3.57 1.80 - 7.70 K/uL Absolute Lymphocytes 1.53 1.00 - 4.80 K/ul Absolute Monocytes 0.52 0.00 - 1.10 K/uL Absolute Eosinophils 0.26 0.00 - 0.70 K/uL Absolute Basophils 0.02 0.00 - 0.20 K/uL Absolute Immature Granulocytes 0.03 0.00 - 0.20 K/uL Results for orders placed or performed in visit on 05/07/23 DIFFERENTIAL, AUTOMATED Result Value Ref Range WBC 7.06 4.00 - 10.80 K/uL Neutrophils % 57.5 40.0 - 75.0 % Lymphocytes % 29.6 18.0 - 42.0 % Monocytes % 9.5 1.0 - 11.0 % Eosinophils % 2.7 0.0 - 6.0 % Basophils % 0.4 0.0 - 2.0 % Immature Granulocytes % 0.3 0.0 - 2.0 % Absolute Neutrophils 4.06 1.80 - 7.70 K/uL Absolute Lymphocytes 2.09 1.00 - 4.80 K/ul Absolute Monocytes 0.67 0.00 - 1.10 K/uL Absolute Eosinophils 0.19 0.00 - 0.70 K/uL Absolute Basophils 0.03 0.00 - 0.20 K/uL Absolute Immature Granulocytes 0.02 0.00 - 0.20 K/uL CBC Result Value Ref Range WBC 7.06 4.00 - 10.80 K/uL RBC 4.77 4.50 - 5.25 M/uL HGB 13.4 (L) 14.0 - 16.8 g/dL HCT 42.6 40.0 - 48.4 % MCV 89.3 82.0 - 99.5 fL MCH 28.1 27.0 - 34.0 pg MCHC 31.5 32.0 - 36.0 g/dL RDW 13.6 11.5 - 15.5 % PLT 195 140 - 400 K/uL MPV 9.5 6.6 - 11.1 fL nRBCs 0 <=0 /100 WBCs Results for orders placed or performed in visit on 06/09/22 CBC Result Value Ref Range WBC 8.27 4.00 - 10.80 K/uL RBC 5.22 4.50 - 5.25 M/uL HGB 14.9 14.0 - 16.8 g/dL HCT 45.1 40.0 - 48.4 % MCV 86.4 82.0 - 99.5 fL MCH 28.5 27.0 - 34.0 pg MCHC 33.0 32.0 - 36.0 g/dL RDW 14.4 11.5 - 15.5 % PLT 229 140 - 400 K/uL MPV 9.7 6.6 - 11.1 fL nRBCs 0 <=0 /100 WBCs Results for orders placed or performed during the hospital encounter of 06/14/12 CBC/DIFF Result Value Ref Range WBC 18.27 (H) 4.00 - 10.80 K/uL RBC 4.36 (L) 4.50 - 5.25 M/uL HGB 13.0 (L) 14.0 - 16.5 g/dL HCT 37.1 (L) 40.0 - 47.0 % MCV 85.1 82.0 - 99.5 fL MCH 29.8 27.0 - 34.0 pg MCHC 35.0 32.0 - 36.0 g/dL RDW 13.5 11.5 - 15.5 % PLT 237 140 - 400 K/uL MPV 9.0 6.6 - 11.1 fL Neutrophils % 79 (H) 40 - 75 % Lymphocytes % 8 (L) 18 - 42 % Monocytes % 9 1 - 11 % Eosinophils % 0 0 - 6 % Basophils % 0 0 - 2 % IMMATURE GRANULOCYTE 4 (H) 0 - 2 % ABS. SEGS 14.33 (H) 1.8 - 7.7 K/uL Absolute Lymphocytes 1.49 1.0 - 4.8 K/uL Absolute Monocytes 1.69 (H) 0.0 - 1.1 K/uL Absolute Eosinophils 0.01 0.0 - 0.7 K/uL Absolute Basophils 0.05 0.0 - 0.2 K/uL Absolute Immature Granulocytes 0.70 (H) 0.0 - 0.2 K/uL CBC/DIFF Result Value Ref Range WBC 16.36 (H) 4.00 - 10.80 K/uL RBC 4.45 (L) 4.50 - 5.25 M/uL HGB 13.3 (L) 14.0 - 16.5 g/dL HCT 38.1 (L) 40.0 - 47.0 % MCV 85.6 82.0 - 99.5 fL MCH 29.9 27.0 - 34.0 pg MCHC 34.9 32.0 - 36.0 g/dL RDW 13.4 11.5 - 15.5 % PLT 207 140 - 400 K/uL MPV 9.3 6.6 - 11.1 fL Neutrophils % 85 (H) 40 - 75 % Lymphocytes % 6 (L) 18 - 42 % Monocytes % 8 1 - 11 % Eosinophils % 0 0 - 6 % Basophils % 0 0 - 2 % IMMATURE GRANULOCYTE 1 0 - 2 % ABS. SEGS 13.90 (H) 1.8 - 7.7 K/uL Absolute Lymphocytes 1.03 1.0 - 4.8 K/uL Absolute Monocytes 1.24 (H) 0.0 - 1.1 K/uL Absolute Eosinophils 0.01 0.0 - 0.7 K/uL Absolute Basophils 0.03 0.0 - 0.2 K/uL Absolute Immature Granulocytes 0.15 0.0 - 0.2 K/uL CBC/DIFF Result Value Ref Range WBC 15.11 (H) 4.00 - 10.80 K/uL RBC 4.60 4.50 - 5.25 M/uL HGB 13.8 (L) 14.0 - 16.5 g/dL HCT 40.0 40.0 - 47.0 % MCV 87.0 82.0 - 99.5 fL MCH 30.0 27.0 - 34.0 pg MCHC 34.5 32.0 - 36.0 g/dL RDW 13.4 11.5 - 15.5 % PLT 159 140 - 400 K/uL MPV 9.2 6.6 - 11.1 fL Neutrophils % 84 (H) 40 - 75 % Lymphocytes % 8 (L) 18 - 42 % Monocytes % 7 1 - 11 % Eosinophils % 0 0 - 6 % Basophils % 0 0 - 2 % IMMATURE GRANULOCYTE 1 0 - 2 % ABS. SEGS 12.83 (H) 1.8 - 7.7 K/uL Absolute Lymphocytes 1.15 1.0 - 4.8 K/uL Absolute Monocytes 1.04 0.0 - 1.1 K/uL Absolute Eosinophils 0.00 0.0 - 0.7 K/uL Absolute Basophils 0.01 0.0 - 0.2 K/uL Absolute Immature Granulocytes 0.08 0.0 - 0.2 K/uL Urine Results for orders placed or performed in visit on 04/11/24 PSA Result Value Ref Range PSA 1.30 <4.10 ng/mL Results for orders placed or performed in visit on 04/11/24 URINALYSIS, REFLEX TO MICROSCOPIC Result Value Ref Range Color, Urine Yellow Light Yellow, Yellow, Dark Yellow Clarity, Urine Clear Clear Glucose, Urine >=1000 (A) Negative mg/dL Bilirubin, Urine Negative Negative Ketone, Urine Negative Negative mg/dL Specific [place], Urine 1.020 1.003 - 1.030 Blood, Urine Negative Negative pH, Urine 8.5 (H) 5.0 - 7.5 Units Protein, Urine 100 (A) Negative mg/dL Urobilinogen, Urine 0.2 0.2, 1.0 mg/dL Nitrite, Urine Negative Negative Esterase, Urine Negative Negative Results for orders placed or performed in visit on 04/11/24 QUANTIFERON TB GOLD PLUS Result Value Ref Range Quantiferon-TB Plus, 1T NEGATIVE NEGATIVE NIL 0.33 IU/mL Mitogen-NIL 3.14 IU/mL TB1-NIL 0.01 IU/mL TB2-NIL 0.01 IU/mL Results for orders placed or performed in visit on 02/27/22 QUANTIFERON TB GOLD PLUS Result Value Ref Range Quantiferon-TB Plus, 1T NEGATIVE NEGATIVE NIL 0.04 IU/mL Mitogen-NIL 8.86 IU/mL TB1-NIL 0.01 IU/mL TB2-NIL 0.02 IU/mL Results for orders placed or performed in visit on 05/07/22 LIPID PANEL WITH DIRECT LDL IF TG IS HIGH Result Value Ref Range Triglycerides 192 (H) <=174 mg/dL Cholesterol 129 <200 mg/dL HDL Cholesterol 31 (L) >39 mg/dL Non-HDL Cholesterol 98 <=159 mg/dL Results for orders placed or performed in visit on 04/11/24 HEMOGLOBIN A1C Result Value Ref Range Hemoglobin A1C 8.6 (H) 4.0 - 5.6 % Estimated Average Glucose 200 (H) <126 mg/dL Results for orders placed or performed in visit on 02/02/24 HEMOGLOBIN A1C Result Value Ref Range Hemoglobin A1C 6.7 (H) 4.0 - 5.6 % Estimated Average Glucose 146 (H) <126 mg/dL Results for orders placed or performed in visit on 05/07/23 HEMOGLOBIN A1C Result Value Ref Range Hemoglobin A1C 9.5 (H) 4.0 - 5.6 % Estimated Average Glucose 226 (H) <126 mg/dL Results for orders placed or performed in visit on 04/11/24 HEPATITIS C ANTIBODY Result Value Ref Range Hepatitis C Antibody Negative Negative Results for orders placed or performed in visit on 04/11/24 HEPATITIS B CORE ANTIBODIES IGG AND IGM Result Value Ref Range Hepatitis B Core Antibodies IgG and IgM Positive (A) Negative Results for orders placed or performed in visit on 02/27/22 TOXOPLASMA GONDII IGG ANTIBODY Result Value Ref Range Toxoplasma Gondii IgG Antibody Positive (A) Negative Results for orders placed or performed in visit on 04/11/24 CMV IGG ANTIBODY Result Value Ref Range Cytomegalovirus IgG Antibody Positive (A) Negative Results for orders placed or performed in visit on 02/27/22 CMV IGG ANTIBODY Result Value Ref Range Cytomegalovirus IgG Antibody Positive (A) Negative Sexually Transmitted Infection Testing: Results for orders placed or performed in visit on 05/07/23 SYPHILIS ANTIBODY SCREEN Result Value Ref Range Syphilis Screen Interpretation Nonreactive Nonreactive Results for orders placed or performed in visit on 06/09/22 SYPHILIS ANTIBODY SCREEN Result Value Ref Range Syphilis Screen Interpretation Nonreactive Nonreactive Results for orders placed or performed in visit on 05/07/22 SYPHILIS ANTIBODY SCREEN Result Value Ref Range Syphilis Screen Interpretation Nonreactive Nonreactive Results for orders placed or performed in visit on 04/11/24 RPR Result Value Ref Range RPR Screen Nonreactive Nonreactive Gonorrhea/Chlamydia Testing Results for orders placed or performed in visit on 05/07/23 CHLAMYDIA TRACHOMATIS AND NEISSERIA GONORRHOEAE, AMPLIFIED PROBE Result Value Ref Range Chlamydia Trachomatis Result Negative Negative Neisseria Gonorrhoeae Result Negative Negative Results for orders placed or performed in visit on 06/09/22 CHLAMYDIA TRACHOMATIS AND NEISSERIA GONORRHOEAE, AMPLIFIED PROBE Result Value Ref Range Chlamydia Trachomatis Result Negative Negative Neisseria Gonorrhoeae Result Negative Negative Results for orders placed or performed in visit on 05/07/22 CHLAMYDIA TRACHOMATIS AND NEISSERIA GONORRHOEAE, AMPLIFIED PROBE Result Value Ref Range Chlamydia Trachomatis Result Negative Negative Neisseria Gonorrhoeae Result Negative Negative Anal PAP screening: refused ASSESSMENT:69 y/o M with asymptomatic HIV on Juluca who admits to missing 2 pills a week but deniesside effects .His most recent CD4 571 and VL 133 in February 2024 and he will have labs done today .He refused STI testing and reports he had his influenza vaccine at [facility] .He was cautioned about developing resistance to Juluca with skipped tablets .He has to go to IR for exchange of his HD cathter .Will discuss with pharmacy if his Juluca dose needs to be adjusted as he is now on HD PLAN: Continue Juluca 1 year supply e-scripted Repeat labs today RTC in 6 months Follow Up:in 6 months Shirley Asencio MD Infectious Disease Treatment, [address] [address] documented in this encounter Nursing Notes * Gilda Griffin LPN - 08/22/2024 10:14 AM EST Chief Complaint Patient presents with Follow Up HIV documented in this encounter Plan of Treatment Upcoming Encounters Date Type Department Care Team (Late st Contact Info) Description 09/19/2024 3:30 PM EST Office Visit Cardiology, [facility] [address] [id number] Davy Mota MD [address] [address] 10/13/2024 9:00 AM EST Office Visit Family Practice [facility] [address] [place] [address] Antonio Colon MD [address] [place] [address] Scheduled Orders Name Type Priority Associated Diagnoses Orde r Schedule CBC WITH WBC DIFFERENTIAL Lab Routine HIV, asymptomatic (HCC) Every 6 Months for 2 Occurrences starting 08/22/2024 until 08/22/2025 COMPREHENSIVE METABOLIC PANEL Lab Routine HIV, asymptomatic (HCC) Every 6 Months for 2 Occurrences starting 08/22/2024 until 08/22/2025 CD4P T-CELL SUBSET PANEL, FLOW CYTOMETRY PANEL Lab Routine HIV, asymptomatic (HCC) Every 6 Months for 2 Occurrences starting 08/22/2024 until 08/22/2025 HIV-1 RNA QUANTITATIVE Lab Routine HIV, asymptomatic (HCC) Every 6 Months for 2 Occurrences starting 08/22/2024 until 08/22/2025 SYPHILIS ANTIBODY SCREEN WITH REFLEX TO RPR Lab Routine HIV, asymptomatic (HCC) Every 6 Months for 2 Occurrences starting 08/22/2024 until 08/22/2025 CHLAMYDIA TRACHOMATIS AND NEISSERIA GONORRHOEAE, AMPLIFIED PROBE Lab Routine Exposure to chlamydia Exposure to gonorrhea Every 6 Months for 2 Occurrences starting 08/22/2024 until 08/22/2025 Scheduled Procedures Name Priority Associated Diagnoses Date/Ti [...] Asymptomatic human immunodeficiency virus (HIV) infection status Exposure to chlamydia Contact with or exposure to venereal diseases Exposure to gonorrhea Contact with or exposure to venereal diseases documented in this encounter Advance Directives * [...] Healthcare Agent Relationshi p Communication Lorin Silvestre [facility] Health Care Repr esentative (appointed verbally by patient or by statute hierarchy) Care Teams Rn Chemical Dependency Relationship Specialty Start Date End Date Antonio Colon MD [address] [place] [id number] PCP - General Family Medicine 02/12/22 documented as of this encounter
--- OUTSIDE RECORDS SUMMARY | 2024-09-21 08:04 | External Medical Summary ---
Author Name Unknown Address Unknown Organization K01:[facility] [place] [address] [place] [id number] Laboratory Report Ordering Provider Test Date Status ELIZABETH ALMEIDA 08/22/2024 16:12:00 Final Observation Date Value Abnormality Reference (Units ) Status WHITE BLOOD CELL COUNT FLOW 08/22/2024 16:12:00 3.0 Below low normal 4.0-10.8 (K/uL) Final PERCENT LYMPHS FLOW 08/22/2024 16:12:00 10.3 Below low normal 18.0-42.0 (%) Final ABSOLUTE LYMPHS FLOW 08/22/2024 16:12:00 309 Below low normal 2120-5884 (cells/uL) Final CD3 (T Cells), percent 08/22/2024 16:12:00 77 61-88 (%) Final CD3 (T Cells), absolute 08/22/2024 16:12:00 237 Below low normal 510-2265 (cells/uL) Final CD3+CD8+ (T8 suppressor cells) cells/100 cells in Blood 08/22/2024 16:12:00 22 13-35 (%) Final CD3+CD8+ (T8 suppressor cells) cells [#/volume] in Blood 08/22/2024 16:12:00 69 Below low normal 150-790 (cells/uL) Final CD3+CD4+ (T4 helper) cells/100 cells in Blood 08/22/2024 16:12:00 53 35-62 (%) Final CD3+CD4+ (T4 helper) cells [#/volume] in Blood 08/22/2024 16:12:00 163 Below low normal 330-1520 (cells/uL) Final Test results reported to [place] [facility]. CD3+CD4+ (T4 helper) cells/C D3+CD8+ (T8 suppressor cells) cells [# Ratio] in Blood 08/22/2024 16:12:00 2.4 0.8-3.5 (%) Final Performing Location [facility] [place] [address] [facility] [address]
--- OUTSIDE RECORDS SUMMARY | 2024-09-21 08:04 | External Medical Summary ---
Author Name Unknown Address Unknown Organization [id number]:LABORATORY [facility] - [address] [facility]. [place] [address] Laboratory Report Ordering Provider Test Date Status ELIZABETH ALMEIDA 08/22/2024 18:21:00 Final Observation Date Value Abnormality Reference (Units ) Status SYNC LEUKOCYTES IN BLOOD BY AUTOMATED COUNT 08/22/2024 18:21:00 5.40 4.00-10.80 (K/uL) Final Segs 08/22/2024 18:21:00 88.5 Above high normal 40.0-75.0 (%) Final Lymphs % 08/22/2024 18:21:00 5.2 Below low normal 18.0-42.0 (%) Final Monos 08/22/2024 18:21:00 5.2 1.0-11.0 (%) Final Eosinophils 08/22/2024 18:21:00 0.2 0.0-6.0 (%) Final Basos 08/22/2024 18:21:00 0.2 0.0-2.0 (%) Final Immature Granulocyte, Percent 08/22/2024 18:21:00 0.7 0.0-2.0 (%) Final Absolute Segs 08/22/2024 18:21:00 4.78 1.80-7.70 (K/uL) Final Lymphs, absolute 08/22/2024 18:21:00 0.28 Below low normal 1.00-4.80 (K/ul) Final Monos, Abs 08/22/2024 18:21:00 0.28 0.00-1.10 (K/uL) Final Eos, Abs 08/22/2024 18:21:00 0.01 0.00-0.70 (K/uL) Final Basos, Abs 08/22/2024 18:21:00 0.01 0.00-0.20 (K/uL) Final Immature Granulocytes, Number 08/22/2024 18:21:00 0.04 0.00-0.20 (K/uL) Final Performing Location LABORATORY [facility] - Formerly named [facility] [address] [place] [address]
--- OUTSIDE RECORDS SUMMARY | 2024-09-21 08:04 | External Medical Summary ---
Author Name Unknown Address Unknown Organization : Laboratory Report Ordering Provider Test Date Status BAN CHOU 08/23/2024 18:41:54 Final Observation Date Value Abnormality Reference (Units ) Status Glucose Point of Care 08/23/2024 18:41:54 151 Above high normal 70-120 (mg/dL) Final Performing Location
--- OUTSIDE RECORDS SUMMARY | 2024-09-21 08:04 | External Medical Summary ---
Author Name Unknown Address Unknown Organization K1F:LAB[facility]ATORY [facility] - [address] [place] [address] Laboratory Report Ordering Provider Test Date Status ELIZABETH ALMEIDA 08/22/2024 16:12:00 Final Observation Date Value Abnormality Reference (Units ) Status Magnesium 08/22/2024 16:12:00 2.0 1.5-2.6 (m g/dL) Final Performing Location LABORATORY [facility] - [address] [place] [address]
--- OUTSIDE RECORDS SUMMARY | 2024-09-21 08:04 | External Medical Summary ---
Author Name Unknown Address Unknown Organization K1F:[address]ATORY [address] [place] [address] Laboratory Report Ordering Provider Test Date Status ELIZABETH ALMEIDA 08/22/2024 17:13:00 Final Observation Date Value Abnormality Reference (Units ) Status Bacteria identified in Specimen by Culture 08/22/2024 17:13:00 No growth Final Test: Culture, Blood (Site 2)
Specimen Source: Blood, Venous
Specimen Type: Blood
Specimen Date: 08/22/20241712
Result Date: 08/27/2024 180
Result Status: Final result
Resulting Lab: LABORATORY [facility]
[address] [place] [address]
[place] [address]

CULTURE

No growth

null Performing Location LABORATORY [address] [place] [address]
--- OUTSIDE RECORDS SUMMARY | 2024-09-21 08:04 | External Medical Summary ---
Author Name Unknown Address Unknown Organization K1F:[facility]ATORY [facility] - [address] [place] [address] Laboratory Report Ordering Provider Test Date Status BAN CHOU 08/24/2024 06:26:00 Final Observation Date Value Abnormality Reference (Units ) Status BUN 08/24/2024 06:26:00 35 Above high normal 6-20 (mg/dL) Final Creatinine 08/24/2024 06:26:00 3.9 Above high normal 0.6-1.2 (mg/dL) Final Glomerular filtration rate/1.73 sq M.predicted [Volume Rate/Area] in Serum, Plasma or Blood by Creatinine-based formula (CKD-EPI) 08/24/2024 06:26:00 16 Below low normal >=60 (mL/min) Final eGFR is calculated based on the CKD-EPI 2020 equation. Sodium 08/24/2024 06:26:00 134 Below low normal 135 -146 (mmol/L) Final Potassium 08/24/2024 06:26:00 4.6 3.5-5.1 (m mol/L) Final Cl 08/24/2024 06:26:00 103 98-107 (mm ol/L) Final CO2 08/24/2024 06:26:00 19 Below low normal 22- 32 (mmol/L) Final Anion gap 08/24/2024 06:26:00 12 7-15 (mmol /L) Final Glucose 08/24/2024 06:26:00 156 Above high normal 70 -120 (mg/dL) Final Calcium 08/24/2024 06:26:00 9.5 8.4-10.2 ( mg/dL) Final Performing Location LABORATORY [facility] - [address] [place] [address]
--- OUTSIDE RECORDS SUMMARY | 2024-09-21 08:04 | External Medical Summary ---
Author Name Unknown Address Unknown Organization : Laboratory Report Ordering Provider Test Date Status DERRELL BARBOUR 08/24/2024 05:50:40 Final Observation Date Value Abnormality Reference (Units ) Status Glucose Point of Care 08/24/2024 05:50:40 152 Above high normal 70-120 (mg/dL) Final Performing Location
--- OUTSIDE RECORDS SUMMARY | 2024-09-21 08:04 | External Medical Summary ---
Author Name Unknown Address Unknown Organization : Laboratory Report Ordering Provider Test Date Status BAN CHOU 08/23/2024 16:34:10 Final Observation Date Value Abnormality Reference (Units ) Status Glucose Point of Care 08/23/2024 16:34:10 86 70-120 (mg/dL) Final Performing Location
--- OUTSIDE RECORDS SUMMARY | 2024-09-21 08:04 | External Medical Summary ---
Author Name Unknown Address Unknown Organization K1F:[address]ATORY [address] [place] [address] Laboratory Report Ordering Provider Test Date Status ELIZABETH ALMEIDA 08/22/2024 17:13:00 Final No anaerobic bottle received . Observation Date Value Abnormality Reference (Units ) Status Bacteria identified in Specimen by Culture 08/22/2024 17:13:00 No growth Final Test: Culture, Blood
Mag lucia Source: Blood, Venous
Specimen Type: Blood
Specimen Date: 08/22/20241712
Result Date: 08/27/2024 180
Result Status: Final result
Resulting Lab: LABORATORY [facility]
[address] [place] [address]
[place] [address]

CULTURE

No growth

No anaerobic bottle received.

null Performing Location LAB[address]ATORY [address] [place] [address]
--- OUTSIDE RECORDS SUMMARY | 2024-09-21 08:04 | External Medical Summary ---
Author Name Unknown Address Unknown Organization K1F:[facility]ATORY [facility] - [address] [place] [address] Laboratory Report Ordering Provider Test Date Status JUAN PABLOKATERIN ULLOAOY 08/22/2024 16:12:00 Final Warfarin Therapy
INR: 2 .0-3.0 conventional anticoagulation
INR: 2.5- 3.5 high intensity anticoagulation Observation Date Value Abnormality Reference (Units ) Status PT 08/22/2024 16:12:00 15.2 11.6-15.2 (seconds) Final INR 08/22/2024 16:12:00 1.2 0.8-1.2 Final Performing Location LABORATORY [facility] - [address] [place] [address]
--- OUTSIDE RECORDS SUMMARY | 2024-09-21 08:04 | External Medical Summary ---
Author Name Unknown Address Unknown Organization : Laboratory Report Ordering Provider Test Date Status ELIZABETH ALMEIDA 08/22/2024 21:49:40 Final Observation Date Value Abnormality Reference (Units ) Status Glucose Point of Care 08/22/2024 21:49:40 78 70-120 (mg/dL) Final Performing Location
--- OUTSIDE RECORDS SUMMARY | 2024-09-21 08:04 | External Medical Summary | Summary of Care ---
Author Name Unknown Organization [facility] Address [address] [place] [address] Phone [phone] Care Team Providers Care Professional Skater Name Role Phone Antonio Colon MD Primary Care Provider [phone] Reason for Visit * Reason Comments Follow Up HIV Encounter Details Date Type Department Care Team (Late st Contact Info) Description 08/22/2024 10:20 AM EST Office Visit Infectious Disease Treatment, [address] [phone] Shirley Asencio MD [address] [place] [address] HIV, asymptomatic (HCC)*; Exposure to chlamydia; Exposure to gonorrhea Allergies No known active allergiesdocumented as of this encounter (statuses as of 08/22/2024) Medications Co Q 10 10 MG Oral [...] Hour (toPROL XL)Indications:C oronary artery disease involving [place] coronary artery of [place] heart without angina pectoris TAKE 1 TABLET BY MOUTH EVERY DAY IN THE MORNING 90 Tablet 3 4 Suspended Prasugrel HCl 10 MG Oral Tablet (Effient)Indicat ions:Coronary artery disease involving [place] coronary artery of [place] heart without angina pectoris TAKE 1 TABLET [...] daily. 90 Tablet 3 4 Suspended [place] 32G X 4 MM Use as directed. [...] Tablet 3 4 Suspended FreeStyle Carlos 2 [place] DeviceIndication s:Type 2 diabetes mellitus with hemoglobin [...] hemoglobin A1c goal of less than 8.0% ([facility]) Inject 10 Units under the skin in [...] 0.083% inhalation solution 2.5 mgIndications:ESRD on dialysis ([facility]),Pre-transplant evaluation for ESRD (end stage renal disease) 2.5 mg NEBULIZER PRN 03/24/2024 Acti ve Albuterol Sulfate (Proventil) (5 MG/ML) 0.5% *conc* inhalation solution 2.5 mgIndications:ESRD on dialysis ([facility]),Pre-transplant evaluation for ESRD (end stage renal disease) 2.5 mg NEBULIZER PRN 03/24/2024 Acti ve documented as of this encounter (statuses as of 08/22/2024) Active Problems Problem Noted Date Diagnosed Date AVF (arteriovenous fistula) 07/19/2024 ESRD on dialysis [...] goal of less than 8.0% 05/02/2022 Old MT (myocardial infarction) 05/02/2022 Chronic systolic (congestive) heart failure 04/14 Left bundle branch block 05/02/2022 HTN, goal below 130/80 HIV positive documented as of this encounter (statuses as of 08/22/2024) Resolved Problems Problem Noted Date Diagnosed Date Resolved Date Chronic heart failure with p reserved ejection fraction 11/24/2022 02/04/2023 Kidney disease, chronic, sta ge IV (GFR 15-29 ml/min) 05/02/2022 02/02/2024 ARDS (adult respiratory distress syndrome) 06/17/2012 05/02/2022 Acute pancreatitis 06/14/2012 Acute respiratory distress 06/14/2012 0 05/02/2022 documented as of this encounter (statuses as of 08/22/2024) Immunizations Name Administration Dates Next Due COVID-19 [...] have concerns for your saf ety? No 01/18/2024 Do you have concerns for you r family's safety? (Household - for ages 0-17 years) Not on file 01/18/2024 Utilities Answer Date Recorded Do you have trouble paying y our heating, water, or electric bill? No 01/18/2024 Is your family able to pay t he heat, water, or electric bill? (Household - for ages 0-17 years) Not on file 01/18/2024 Does your family have access to good internet? (Household - for ages 0-17 years) Not on file 01/18/2024 Employment Status Answer Date Recorded Are you [...] to medical visits or work? Never True 01/18/2024 Does your family have a hard time getting a ride to doctors visits? (Household - for ages 0-17 years) Not on file 01/18/2024 Has lack of transportation k ept you from medical appointments, meetings, work, or from getting things needed for daily living? Check all that apply. (Adult - for ages 18 years and over) Not on file 01/18/2024 Do you (or your family) have trouble finding or paying for a ride (transportation)? (Household - for ages 0-17 years) Not on file 01/18/2024 Housing Stability Answer Date Recorded Do you currently live in a s helter or have no steady place to sleep at night? No 01/18/2024 READ ONLY Do you think you a re at risk of becoming homeless? No 01/18/2024 Does your family worry about paying for your home or becoming homeless? (Household - for ages 0-17 years) Not on file 0 01/18/2024 Are you homeless or worried that you might be in the future? (Adult - for ages 18 years and over) Not on file Are you (or your family) pancho eless or worried that you might be in the future? (Household - for ages 0-17 years) Not on file Food Insecurity Answer Date Recorded Do you need food for this week? No 01/18/2024 Are you able to get enough f ood for your family? (Household - for ages 0-17 years) Not on file 01/18/2024 Does your family need food t his week? (Household - for ages 0-17 years) Not on file 01/18/2024 Do you always have enough fo od for your family? (Household - for ages 0-17 years) Not on file 01/18/2024 Sex and Gender Information Value Date [...] 11:10 AM EST documented in this encounter Progress Notes * Shirley Asencio MD - 08/22/2024 10:09 AM EST Tad Silvestre is a 69 year old male who presents to the Infectious Disease clinic for HIV follow-upvisit..PMHx Lyme disease,pancreatitis,DM 2,diverticulitis,HD TTS ,MT X 2 .Patient reports he was diagnosed [...] vaccine His Pharmacy is now [facility] [address] Past Medical History: Diagnosis Date Chronic heart failure with preserved ejection fraction (HCC) 11/24/2022 Coronary artery disease involving [place] coronary artery of [place] heart without angina pectoris 05/02/2022 Duodenal ulcer 02/02/2024 Dyslipidemia 05/02/2022 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 05/07/2023 History of GI bleed 02/02/2024 Duodenal ulcer HIV positive ([facility]) Hypertension Kidney disease, chronic, stage IV (GFR 15-29 ml/min) ([facility]) 05/02/2022 Left bundle branch block 05/02/2022 Old MT (myocardial infarction) 05/02/2022 Overweight (BMI 25.0-29.9) 05/02/2022 Recurrent major depressive disorder, in full remission ([facility]) 05/05/2022 Systolic and diastolic CHF, chronic ([facility]) 05/02/2022 Type 2 diabetes mellitus with hemoglobin A1c goal of less than 8.0% ([facility]) 05/02/2022 Additional Hx: Is the patient sexually [...] by mouth daily. 90 Tablet 3 [place] 32G X 4 MM Use as directed. [...] morning. 90 Tablet 3 FreeStyle Carlos 2 [place] Device Use as directed. Use to test [...] Where did you previously receive your care? [facility] Any history of opportunistic infections? No Immunizations: [...] 749 150 - 790 cells/uL CD4 (T [place]) 28 (L) 35 - 62 % Absolute [...] 754 150 - 790 cells/uL CD4 (T [place]) 26 (L) 35 - 62 % Absolute [...] 589 150 - 790 cells/uL CD4 (T [place]) 35 35 - 62 % Absolute CD4 [...] Significance Test results have been reported to [facility]. The HIV-1 assay is intended for [...] type 1 (HIV-1) in EDTA plasma of VPW-1-xvtwyvjz individuals using an automated system for specimen [...] determined by the [facility] Diagn[facility] Laboratory at [facility]. This test is used for clinical purposes. References 1. Centers for Disease Control and Prevention and Association of Public Health Laboratories. Laboratory Testing for the Diagnosis of HIV Infection: Updated Recommendations. March 09, 2014. Available at http://stacks.cdc.gov/view/cdc/72960 2. Adarsh RIVERA, Laurie MS, Sukumar CA, et al: Antiretroviral Drugs for Treatment and Prevention of HIVInfection in Adults: 2016 Recommendations of the International Antiviral Society-[place] Panel. CHRISTIANO 2016;316(2):191-210. Available at https://jamanetwork.com/journals/christiano/fullarticle/6346727 3. Panel on Antiretroviral Guidelines for Adults and Adolescents: Guidelines for the Use of Antiretroviral Agents in Adults and Adolescents Living with HIV. U.S. Department of Health and Human Services. June 29, 2017. Available at https://aidsinfo.nih.gov/guidelines/html/1/epzji-ayf-fwzqyhcfey-ar v/3/gdbim-loy-swqkldt-ytixmwbaul-ijt-uyabxj-up Results for orders placed or performed in visit on 06/09/22 HIV-1 RNA QUANTITATIVE Specimen: Blood, Venous Result Value Ref Range HIV RNA Result <20 (H) <=0 copies/mL HIV RNA Log <1.30 (H) <=0.00 log copies/mL HIV Interpretation The result is not quantifiable: below the lower limit of detection (LLoD) of the assay. Clinical Significance Test results have been reported to [facility]. The HIV-1 assay is intended for [...] type 1 (HIV-1) in EDTA plasma of OLS-2-uykijvkz individuals using an automated system for specimen [...] determined by the [facility] Laboratory at [facility]. This test is used for clinical purposes. References 1. Centers for Disease Control and Prevention and Association of Public Health Laboratories. Laboratory Testing for the Diagnosis of HIV Infection: Updated Recommendations. March 09, 2014. Available at http://stacks.cdc.gov/view/cdc/73198 2. Adarsh HF, Laurie MS, Sukumar CA, et al: Antiretroviral Drugs for Treatment and Prevention of HIVInfection in Adults: 2016 Recommendations of the International Antiviral Society-[place] Panel. CHRISTIANO 2016;316(2):191-210. Available at https://jamanetwork.com/journals/christiano/fullarticle/4696032 3. Panel on Antiretroviral Guidelines for Adults and Adolescents: Guidelines for the Use of Antiretroviral Agents in Adults and Adolescents Living with HIV. U.S. Department of Health and Human Services. June 29, 2017. Available at https://aidsinfo.nih.gov/guidelines/html/1/mavil-aip-mepykuvwqf-ar v/3/hadoo-pld-xkgbnpg-wenbfmixlj-yvv-shzjbv-up Results for orders placed or performed in visit on 05/07/22 HIV-1 RNA QUANTITATIVE Specimen: Blood, Venous Result Value Ref Range HIV RNA Result Negative. No HIV RNA detected. Negative. No HIV RNA detected. Clinical Significance Test results have been reported to [facility]. The HIV-1 assay is intended for [...] type 1 (HIV-1) in EDTA plasma of CSY-1-anmtdesj individuals using an automated system for specimen [...] determined by the [facility] Diagnostics Laboratory at [facility]. This test is used for clinical purposes. References 1. Centers for Disease Control and Prevention and Association of Public Health Laboratories. Laboratory Testing for the Diagnosis of HIV Infection: Updated Recommendations. March 09, 2014. Available at http://stacks.cdc.gov/view/cdc/38648 2. Adarsh HF, Laurie MS, Sukumar CA, et al: Antiretroviral Drugs for Treatment and Prevention of HIVInfection in Adults: 2016 Recommendations of the International Antiviral Society-[place] Panel. CHRISTIANO 2016;316(2):191-210. Available at https://jamanetwork.com/journals/christiano/fullarticle/4623934 3. Panel on Antiretroviral Guidelines for Adults and Adolescents: Guidelines for the Use of Antiretroviral Agents in Adults and Adolescents Living with HIV. U.S. Department of Health and Human Services. June 29, 2017. Available at https://aidsinfo.nih.gov/guidelines/html/1/kzbsc-hhy-qcuqxdhgrm-ar v/3/fsdss-ibz-raqrrae-qiknuodorv-wtq-bnsdwx-up Results for orders placed or performed in [...] Negative Ketone, Urine Negative Negative mg/dL Specific [place], Urine 1.020 1.003 - 1.030 Blood, Urine [...] reports he had his influenza vaccine at [facility] .He was cautioned about developing resistance to Juluca with skipped tablets .He has to go to IR for exchange of his HD cathter PLAN: Continue Juluca 1 year supply e-scripted Repeat labs today RTC in 6 months Follow Up:in 6 months Shirley Asencio MD Infectious Disease Treatment, [place] [phone] documented in this encounter Nursing Notes * Gilda Griffin LPN - 08/22/2024 10:14 AM EST Chief Complaint Patient presents with Follow Up HIV documented in this encounter Plan of Treatment Upcoming Encounters Date Type Department Care Team (Late st Contact Info) Description 08/23/2024 10:10 AM EST Office Visit Vascular Surgery, [facility] [address] [facility] [facility] [place] [address] Simeon Perez MD [address] [place] [address] 09/19/2024 3:30 PM EST Office Visit Cardiology, [facility] [address] [facility] [place] [address] Davy Mota MD [address] [facility] [place] [address] 10/13/2024 9:00 AM EST Office Visit Family Practice [facility] [address] [facility] [place] [address] Antonio Colon MD [address] [place] [address] Scheduled Orders Name Type Priority Associated Diagnoses [...] Procedures Name Priority Associated Diagnoses Date/Ti me REPLACEMENT COMPLETE TUNNELED CENTRAL CATHETER NO PORT Complication associated with dialysis catheter 08/22/2024 12:00 PM EST COLONOSCOPY FLEXIBLE PROXIMAL DIAGNOSTIC Recall History of colonic polyps Health [...] 2024 09/09/2022, 08/05/2021, 11/27/2020, Additional history exists HbA1c 10/12/2024 04/11/2024, 01/12, 05/07/2023, Additional history exists Colonoscopy 01/06/2025 01/07/2024, 05/2023, 02/19/2023 Colorectal Cancer Screening 01/06/2025 Depression Monitoring 01/17/2025 01/18/2024 Diabetic Foot Exam 01/17/2025 01/18/2024, 11/24/2022 TSH 02/01/2025 02/02/2024, 01/12, 01/18/2024 DTap/Tdap Vaccines (2 - Td or Tdap) [...] documented in this encounter Advance Directives * Full Code (Latest Code Status on File) Date Activated Date Inactivated Comments 06/14/2012 6:26 PM 06/17/2012 7:43 PM This order r eflects the patients wishes and were consensually agreed upon. Healthcare Agents on File Name Relationship Healthcare Agent Relationshi p Communication Lorin Silvestre [facility] Health Care Repr esentative (appointed verbally by patient or by statute hierarchy) Care Teams Professional Skater Relationship Specialty Start Date End Date Antonio Colon MD [address] [place] [address] PCP - General Family Medicine 02/12/22 documented as of this encounter
--- OUTSIDE RECORDS SUMMARY | 2024-09-21 08:04 | External Medical Summary ---
Author Name Unknown Address Unknown Organization K1F:LABORATORY [facility] - [address] [address] Laboratory Report Ordering Provider Test Date Status JUAN PABLOELIZABETH Rodas 08/23/2024 06:25:00 Final Observation Date Value Abnormality Reference (Units ) Status Vancomycin, level 08/23/2024 06:25:00 20.7 10 .0-40.0 (ug/mL) Final Performing Location LABORATORY [facility] - [address] [address]
--- OUTSIDE RECORDS SUMMARY | 2024-09-21 08:04 | External Medical Summary ---
Author Name Unknown Address Unknown Organization K1F:LABORATORY [facility] - [address] [address] Laboratory Report Ordering Provider Test Date Status ELIZABETH ALMEIDA 08/22/2024 16:12:00 Final Observation Date Value Abnormality Reference (Units ) Status Lipase 08/22/2024 16:12:00 17 13-60 (U/L ) Final Performing Location LABORATORY [facility] - [address] [address]
--- OUTSIDE RECORDS SUMMARY | 2024-09-21 08:04 | External Medical Summary ---
Author Name Unknown Address Unknown Organization : Laboratory Report Ordering Provider Test Date Status ELIZABETH ALMEIDA 08/22/2024 16:29:44 Final Observation Date Value Abnormality Reference (Units ) Status Glucose Point of Care 08/22/2024 16:29:44 229 Above high normal 70-120 (mg/dL) Final Performing Location
--- OUTSIDE RECORDS SUMMARY | 2024-09-21 08:04 | External Medical Summary ---
Author Name Unknown Address Unknown Organization K1F:LABORATORY [facility] - [address] [address] Laboratory Report Ordering Provider Test Date Status JUAN PABLOKATERIN ULLOAOY 08/22/2024 18:21:00 Final Observation Date Value Abnormality Reference (Units ) Status Lactic Acid 08/22/2024 18:21:00 3.2 Above high normal 0.4-2.0 (mmol/L) Final Performing Location LABORATORY [facility] - [address] [address]
--- OUTSIDE RECORDS SUMMARY | 2024-09-21 08:04 | External Medical Summary ---
Author Name Unknown Address Unknown Organization K1F:LABORATORY [facility] - [address] [facility] [place] [address] Laboratory Report Ordering Provider Test Date Status ELIZABETH ALMEIDA 08/23/2024 06:25:00 Final Observation Date Value Abnormality Reference (Units ) Status BUN 08/23/2024 06:25:00 36 Above high normal 6-20 (mg/dL) Final Creatinine 08/23/2024 06:25:00 3.8 Above high normal 0.6-1.2 (mg/dL) Final Glomerular filtration rate/1.73 sq M.predicted [Volume Rate/Area] in Serum, Plasma or Blood by Creatinine-based formula (CKD-EPI) 08/23/2024 06:25:00 16 Below low normal >=60 (mL/min) Final eGFR is calculated based on the CKD-EPI 2020 equation. Sodium 08/23/2024 06:25:00 137 135-146 (m mol/L) Final Potassium 08/23/2024 06:25:00 4.0 3.5-5.1 (m mol/L) Final Cl 08/23/2024 06:25:00 105 98-107 (mm ol/L) Final CO2 08/23/2024 06:25:00 20 Below low normal 22- 32 (mmol/L) Final Anion gap 08/23/2024 06:25:00 12 7-15 (mmol /L) Final Glucose 08/23/2024 06:25:00 153 Above high normal 70 -120 (mg/dL) Final Albumin 08/23/2024 06:25:00 3.3 Below low normal 3.8 -5.0 (g/dL) Final AST (Aspartate aminotransferase) 08/23/2024 06:25:00 37 10-50 (U/L) Fin al Alk Phos 08/23/2024 06:25:00 97 35-130 (U/ L) Final Bilirubin, Total 08/23/2024 06:25:00 0.5 <=1 .2 (mg/dL) Final Calcium 08/23/2024 06:25:00 8.2 Below low normal 8.4 -10.2 (mg/dL) Final Protein 08/23/2024 06:25:00 5.4 Below low normal 6.0 -8.3 (g/dL) Final ALT (Alanine aminotransferase) 08/23/2024 06:25:00 27 10-50 (U/L) Christian flores [facility] Location LABORATORY [facility] - [address] [place] [address]
--- OUTSIDE RECORDS SUMMARY | 2024-09-21 08:04 | External Medical Summary ---
Author Name Unknown Address Unknown Organization : Laboratory Report Ordering Provider Test Date Status BAN CHOU 08/23/2024 11:30:12 Final Observation Date Value Abnormality Reference (Units ) Status Glucose Point of Care 08/23/2024 11:30:12 186 Above high normal 70-120 (mg/dL) Final Performing Location
--- OUTSIDE RECORDS SUMMARY | 2024-09-21 08:05 | External Medical Summary ---
Author Name Unknown Address Unknown Organization : Laboratory Report Ordering Provider Test Date Status ELIZABETH ALMEIDA 08/22/2024 16:12:00 Final Observation Date Value Abnormality Reference (Units ) Status Performing Location
--- OUTSIDE RECORDS SUMMARY | 2024-09-21 08:05 | External Medical Summary ---
Author Name Unknown Address Unknown Organization K01:LABORATORY [facility] - [address] [place] [address] Laboratory Report Ordering Provider Test Date Status ELIZABETH ALMEIDA 08/22/2024 15:34:00 Final Observation Date Value Abnormality Reference (Units ) Status Ferritin 08/22/2024 15:34:00 156 30-400 (ng /mL) Final Performing Location LABORATORY [facility] - [address] [place] [address]
--- OUTSIDE RECORDS SUMMARY | 2024-09-21 08:05 | External Medical Summary ---
Author Name Unknown Address Unknown Organization K1F:LABORATORY [facility] - [address] [address] Laboratory Report Ordering Provider Test Date Status ELIZABETH ALMEIDA 08/22/2024 16:12:00 Final Observation Date Value Abnormality Reference (Units ) Status Lactic Acid 08/22/2024 16:12:00 1.2 0.4-2.0 (mmol/L) Final Performing Location LABORATORY [facility] - [address] [address]
--- OUTSIDE RECORDS SUMMARY | 2024-09-21 08:05 | External Medical Summary | Summary of Care ---
Author Name Unknown Organization [facility] [address] [place] [address] Phone [phone] Care Team Providers Care Emergency Telecommunications Dispatcher Name Role Phone Antonio Colon MD Primary Care Provider [phone] Reason for Referral * Precert (Within 10 days (routine)) - Authorized Specialty Diagnoses / Procedures Referred By Marques garg Referred To Contact Radiology Diagnoses Complication associated with dialysis catheter Procedures IR VENOUS ACCESS NON-MEDIPORT Kamron Hausre PA-C [address] [place] [address] Phone: tel: fax: Referral ID Status Reason Start Date Expiration Date V isits Requested Visits Authorized [id number] Authorized 08/22/2024 [id number] Reason for Visit * Reason Comments Other Dialysis cath replac ement * Auth/Cert Specialty Diagnoses / Procedures Referred By Marques garg Referred To Contact [address] [address] Phone: [phone] [facility] Emergency Department ([facility]) [address] [place] [address] Phone: tel: fax: Referral ID Status Reason Start Date Expiration Date Visits Re quested Visits Authorized [id number] Encounter Details Date Type Department Care Team (Late st Contact Info) Description 08/21/2024 11:10 AM EST - 08/21/2024 12:56 PM EST Emergency [facility] Emergency Department ([facility]H) [address] [place] [address] Bandar Medrano MD [address] [place] [address] Complication associated with dialysis catheter (Primary Dx) Discharge Disposition: Home - Self Care Allergies [...] Hour (toPROL XL)Indications:Co ronary artery disease involving [place] coronary artery of [place] heart without angina pectoris TAKE 1 TABLET BY MOUTH EVERY DAY IN THE MORNING 90 Tablet 3 4 Active Prasugrel HCl 10 MG Oral Tablet (Effient)Indicati ons:Coronary artery disease involving [place] coronary artery of [place] heart without angina pectoris TAKE 1 TABLET BY MOUTH EVERY DAY IN THE MORNING 90 Tablet 3 4 Active Atorvastatin Calcium 40 MG Oral Tablet (Lipitor)Indicati ons:Dyslipidemia, goal LDL below 70 TAKE 1 TABLET BY MOUTH EVERY DAY IN THE MORNING 90 Tablet 3 4 Active Juluca 50-25 MG Oral Tablet Take 1 Tablet by mouth daily. 90 Tablet 3 4 Active Pen [place] 32G X 4 MM Use as directed. Use to inject insulin 4 times daily E11.9 400 Each 3 4 Active Sevelamer Carbonate 800 MG Oral Tablet (Renvela) Take 1 Tablet by mouth in the morning and 1 Tablet at noon and 1 Tablet in the evening. Take with meals. 4 Active FLUoxetine HCl 20 MG Oral [...] Tablet 3 4 Active FreeStyle Carlos 2 Evans DeviceIndications :Type 2 diabetes mellitus with hemoglobin A1c goal of less than 8.0% ([facility]) Use as directed. Use to test BG E10.65 1 Each 4 Active FreeStyle Carlos 2 SensorIndications :Type 2 diabetes mellitus with hemoglobin A1c goal of less than 8.0% ([facility]) Use as directed. Use one sensor every 14 days for blood sugar E10.65 1 Each 11 4 Active Fiasp FlexTouch 100 UNIT/ML Subcutaneous Solution Pen-injector (Insulin Aspart (w/Niacinamide))I ndications:Type 2 diabetes mellitus with hemoglobin A1c goal of less than 8.0% ([facility]) Inject 10 Units under the skin in the morning and 10 Units at noon and 10 Units before bedtime. With meals. 15 mL 3 04/27/2024 10:53 AM EDT 4 Active Basaglar KwikPen 100 UNIT/ML Subcutaneous Solution Pen-injector (Insulin Glargine Solostar) INJECT UNDER THE SKIN 22 UNITS IN THE MORNING. 30 mL 1 4 Active Hospital, Clinic, or Other [...] goal of less than 8.0% 05/02/2022 Old [place] (myocardial infarction) 05/02/2022 Chronic systolic (congestive) heart [...] Influenza, Quadriva lent Hd (Fluzone Hd) 08/12/2023,09/09/2022,06/19/2021 TDAP (age 10 and older)(Boostrix) 07/23/2017 documented [...] Sign Reading Time Taken Comments Blood Pressure 100/60 08/21/2024 12:00 PM EST Pulse 98 08/21/2024 12:00 PM EST Temperature 36.8 C (98.2 F) 08/21/2024 11:[address] Respiratory Rate 20 08/21/2024 12:00 PM EST Oxygen Saturation 98% 08/21/2024 11:10 AM EST Inhaled Oxygen Concentration - - Weight 76 kg (167 lb 8.8 oz) 08/21/2024 11:10 AM EST Height 175.3 cm (5' 9") 08/21/2024 11:10 AM EST Body Mass Index 24.74 08/21/2024 11:10 AM EST documented in this encounter Discharge Instructions * Discharge Instructions* Kamron Hauser PA-C - 08/21/2024 12:45 PM EST You were seen today and treated in the emergency department for a an issue with the your dialysis catheter. You were scheduled for tomorrow around noon to have this exchanged. Please follow up with Dr. Barber, he will be the surgeon performing the procedure. Please return to the emergency depart with a worsening condition. documented in this encounter Miscellaneous Notes * ED Physician Coding Specialist Note - Yamilex Villagomez RN - 08/21/2024 11:57 AM EST Pt was sent from dialysis center for a dialysis catheter replacement. Pt did have full dialysis tx today. Pt reports he feels at his baseline after treatment. Pt denies needs at this time. Pt was informed of plan of care at this time. * ED Physician Coding Specialist Note - João Mcpherson RN - 08/21/2024 11:10 AM EST Patient sent to ER for replacement dialysis catheter. Patient dialysis T/Th/S normally, but was dialyzed today. documented in this encounter Plan of Treatment Upcoming Encounters Date Type Department Care Team (Late st Contact Info) Description 08/22/2024 10:20 AM EST Office Visit Infectious Disease Treatment, [address] [id number] Shirley Asencio MD [address] [place] [address] 08/23/2024 10:10 AM EST Office [address] [address] Simeon Perez MD [address] [place] [address] 09/19/2024 3:30 PM EST Office Visit [facility], [facility] [address] [facility] [address] Davy Mota MD [address] [place] [address] 10/13/2024 9:00 AM EST Office Visit Family [facility] [address] [place] [address] Antonio Colon MD [address] [place] [address] Scheduled Orders Name Type Priority Associated Diagnoses Orde r Schedule IR VENOUS ACCESS NON-MEDIPORT Medical Imaging Routine Complication associated with dialysis catheter Expected: 08/22/2024, Expires: 09/21/2025 Scheduled Procedures Name Priority Associated Diagnoses Date/Ti [...] 2024 09/09/2022, 08/05/2021, 11/27/2020, Additional history exists Influenza Vaccine (FLU shot) (#1) 2024 08/12/2023, 09/09/2022, 09/09/2022, Additional history exists HbA1c 10/12/2024 04/11/2024, 0510/2023, 05/07/2023, Additional history exists Colonoscopy 01/06/2025 01/07/2024, 0 05/2023, 02/19/2023 Colorectal Cancer Screening 01/06/2025 Depression Monitoring 01/17/2025 01/18/2024 Diabetic Foot Exam 01/17/2025 01/18/2024, 11/24/2022 TSH 02/01/2025 02/02/2024, 01/12, 01/18/2024 DTap/Tdap Vaccines (2 - Td or Tdap) 07/23/2027 07/23/2017 Albumin/Creatinine Ratio Discontinued 05/07/2023, 11/2021 RETIRED - COLONOSCOPY-ANNUAL AGES 18-100 Discontinued 01/07/2024, 02/19/2023, 02/19/2023 AAA Screening Completed 05/08/2024, 01/11, 01/29/2020, Additional history exists Nephrology Referral Discontinued 05/08/2024 HPV (Gardasil) Vaccine Aged Out No lo nger eligible based on patient's age to complete this topic documented as of this encounter Medical Devices Not on filedocumented as of this encounter Procedures Procedure Name Priority Date/Time Associated Diagnosis Comments BASIC METABOLIC PANEL Routine 08/21/2024 12:01 PM EST documented in this encounter Results * (ABNORMAL) BASIC METABOLIC PANEL (08/21/2024 12:01 PM EST) BUN 27(H) 6 - 20 mg/dL 08/21/2024 12:31 PM EST [facility] CREATININE 2.7(H) 0.6 - 1.2 mg/dL 08/21/2024 12:31 PM EST [facility] EGFR 24(L) >=60 mL/min 08/21/2024 12:31 PM EST [facility] Comment:eGFR is calculated b ased on the CKD-EPI 2020 equation. SODIUM 137 135 - 146 mmol/L 08/21/2024 12:31 PM EST [facility] POTASSIUM 3.7 3.5 - 5.1 mmol/L 08/21/2024 12:31 PM EST [facility] CHLORIDE 98 98 - 107 mmol/L 08/21/2024 12:31 PM EST [facility] CO2 27 22 - 32 mmol/L 08/21/2024 12:31 PM EST [facility] ANION GAP 12 7 - 15 mmol/L 08/21/2024 12:31 PM EST [facility] GLUCOSE 184(H) 70 - 120 mg/dL 08/21/2024 12:31 PM EST [facility] CALCIUM 7.9(L) 8.4 - 10.2 mg/dL 08/21/2024 12:31 PM EST [facility] Blood Venous blood specimen / Unknown Venipuncture / Unknown 08/21/2024 12:01 PM EST 08/21/2024 12:03 PM EST us Kamron Hauser PA-C LAB BLOOD ORDERABLES Fin al Result [facility] [address] [facility] [place] [address] documented in this encounter Visit Diagnoses Diagnosis Complication associated with dialysis catheter- Primary documented in this encounter Advance Directives * Full Code (Latest Code Status on File) Date Activated Date Inactivated Comments 06/14/2012 6:26 PM 06/17/2012 7:43 PM This order r eflects the patients wishes and were consensually agreed upon. Healthcare Agents on File Name Relationship Healthcare Agent Relationshi p Communication Lorin Silvestre [facility] Health Care Repr esentative (appointed verbally by patient or by statute hierarchy) Care Teams Emergency Telecommunications Dispatcher Relationship Specialty Start Date End Date Antonio Colon MD [address] [facility] [place] [address] PCP - General Family Medicine 02/12/22 documented as of this encounter
--- OUTSIDE RECORDS SUMMARY | 2024-09-21 08:05 | External Medical Summary | Summary of Care ---
Author Name Unknown Organization [facility] Address [address] [place] [address] Phone [phone] Care Team Providers Care Patient Support Representative Name Role Phone Antonio Colon MD Primary Care Provider [phone] Reason for Visit * Reason Onset Date Comments case management 08/15/2024 Appt reminder Encounter Details Date Type Department Care Team (Late st Contact Info) Description 08/15/2024 Telephone Infectious Disease Treatment, [place] [address] [place] [address] Sandra Wilhelm, MADI case management (Appt reminder) Allergies No known active allergiesdocumented as of this encounter (statuses as of 08/15/2024) Medications Co Q 10 10 MG Oral [...] Hour (toPROL XL)Indications:Co ronary artery disease involving [place] coronary artery of [place] heart without angina pectoris TAKE 1 TABLET BY MOUTH EVERY DAY IN THE MORNING 90 Tablet 3 4 Active Prasugrel HCl 10 MG Oral Tablet (Effient)Indicati ons:Coronary artery disease involving [place] coronary artery of [place] heart without angina pectoris TAKE 1 TABLET BY MOUTH EVERY DAY IN THE MORNING 90 Tablet 3 4 Active Atorvastatin Calcium 40 MG Oral Tablet (Lipitor)Indicati ons:Dyslipidemia, goal LDL below 70 TAKE 1 TABLET BY MOUTH EVERY DAY IN THE MORNING 90 Tablet 3 4 Active Juluca 50-25 MG Oral Tablet Take 1 Tablet by mouth daily. 90 Tablet 3 4 Active Pen [place] 32G X 4 MM Use as directed. 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 05/07/2023 Recurrent major depressive disorder, in full rem ission 05/05/2022 Overweight (BMI 25.0-29.9) 05/02/2022 Dyslipidemia 05/02/2022 Coronary artery disease invo lving [place] coronary artery of [place] heart without angina pectoris 05/02/2022 Type 2 diabetes mellitus wit h hemoglobin A1c goal of less than 8.0% 05/02/2022 Old [place] (myocardial infarction) 05/02/2022 Chronic systolic (congestive) heart failure 04/14 Left bundle branch block 05/02/2022 HTN, goal below 130/80 HIV positive documented as of this encounter (statuses as of 08/15/2024) Resolved Problems Problem Noted Date Diagnosed Date Resolved Date Chronic heart failure with p reserved ejection fraction 11/24/2022 02/04/2023 Kidney disease, chronic, sta ge IV (GFR 15-29 ml/min) 05/02/2022 02/02/2024 ARDS (adult respiratory distress syndrome) 06/17/2012 05/02/2022 Acute pancreatitis 06/14/2012 Acute respiratory distress 06/14/2012 0 05/02/2022 documented as of this encounter (statuses as of 08/15/2024) Immunizations Name Administration Dates Next Due COVID-19 [...] No 01/18/2024 Does the household have a [facility] source of income? (Household - for ages [...] encounter Miscellaneous Notes * Telephone Encounter - Sandra Wilhelm LSW - 08/15/2024 8:24 AM EST ANGELA SAGASTUME for pt., Allan ( ) to provide appt reminder for 08/22 @ [address] Asencio in [place]. CM provided [employer] contact info should pt need to return call. Time spent: 15 minutes documented in this encounter Plan of Treatment Upcoming Encounters Date Type Department Care Team (Late st Contact Info) Description 08/22/2024 10:20 AM EST Office Visit Infectious Disease Treatment, [address] [address] Shirley Asencio MD [address] [place], [place] [phone] 08/23/2024 10:10 AM EST Office Visit Vascular Surgery, [facility] [address] [place] [address] Simeon Perez MD [address] [place], [place] [phone] 09/19/2024 3:30 PM EST Office Visit Cardiology, [facility] [address] [place] [address] Davy Mota MD [address] [place] [address] 10/13/2024 9:00 AM EST Office Visit Family Practice [facility] [address] [place] [address] Antonio Colon MD [address] [place] [address] Scheduled Procedures Name Priority Associated Diagnoses Date/Ti [...] 09/09/2022, Additional history exists HbA1c 10/12/2024 04/11/2024, 2 10/2023, 05/07/2023, Additional history exists Colonoscopy 01/06/2025 01/07/2024, 06/0 05/2023, 02/19/2023 Colorectal Cancer Screening 01/06/2025 Depression [...] as of this encounter Advance Directives * Full Code (Latest Code Status on File) Date Activated Date Inactivated Comments 06/14/2012 6:26 PM 06/17/2012 7:43 PM This order r eflects the patients wishes and were consensually agreed upon. Healthcare Agents on File Name Relationship Healthcare Agent Relationshi p Communication Lorin Silvestre [facility] Health Care Repr esentative (appointed verbally by patient or by statute hierarchy) Care Teams Patient Support Representative Relationship Specialty Start Date End Date Antonio Colon MD [address] [place] [address] PCP - General Family Medicine 02/12/22 documented as of this encounter
--- OUTSIDE RECORDS SUMMARY | 2024-09-21 08:05 | External Medical Summary ---
Author Name Unknown Address Unknown Organization [id number][place] [place] [address] [place] [address] Laboratory Report Ordering Provider Test Date Status ELIZABETH ALMEIDA 08/22/2024 15:34:00 Final Observation Date Value Abnormality Reference (Units ) Status Iron 08/22/2024 15:34:00 27 Below low normal 45-176 (ug/dL) Final Iron-binding capacity 08/22/2024 15:34:00 215 Below low normal 250-425 (ug/dL) Final Transferrin Sat % 08/22/2024 15:34:00 13 Below low normal 15-55 (%) Final Performing Location [facility] [place] [address] [place] [address]
--- OUTSIDE RECORDS SUMMARY | 2024-09-21 08:05 | External Medical Summary ---
Author Name Unknown Address Unknown Organization [id number]:LABORATORY [facility] - [address] [facility]. [place] [address] Laboratory Report Ordering Provider Test Date Status ELIZABETH ALMEIDA 08/22/2024 15:34:00 Final Observation Date Value Abnormality Reference (Units ) Status SYNC LEUKOCYTES IN BLOOD BY AUTOMATED COUNT 08/22/2024 15:34:00 3.50 Below low normal 4.00-10.80 (K/uL) Final Segs 08/22/2024 15:34:00 87.0 Above high normal 40.0-75.0 (%) Final Lymphs % 08/22/2024 15:34:00 10.7 Below low normal 18.0-42.0 (%) Final Monos 08/22/2024 15:34:00 1.4 1.0-11.0 (%) Final Eosinophils 08/22/2024 15:34:00 0.3 0.0-6.0 (%) Final Basos 08/22/2024 15:34:00 0.3 0.0-2.0 (%) Final Immature Granulocyte, Percent 08/22/2024 15:34:00 0.3 0.0-2.0 (%) Final Absolute Segs 08/22/2024 15:34:00 3.10 1.80-7.70 (K/uL) Final Lymphs, absolute 08/22/2024 15:34:00 0.38 Below low normal 1.00-4.80 (K/ul) Final Monos, Abs 08/22/2024 15:34:00 0.05 0.00-1.10 (K/uL) Final Eos, Abs 08/22/2024 15:34:00 0.01 0.00-0.70 (K/uL) Final Basos, Abs 08/22/2024 15:34:00 0.01 0.00-0.20 (K/uL) Final Immature Granulocytes, Number 08/22/2024 15:34:00 0.01 0.00-0.20 (K/uL) Final Performing Location LABORATORY [facility] - [facility] [address] [place] [address]
--- OUTSIDE RECORDS SUMMARY | 2024-09-21 08:05 | External Medical Summary ---
Author Name Unknown Address Unknown Organization [id number]:[facility] [place] [address] [facility] [address] Laboratory Report Ordering Provider Test Date Status JUAN PABLOELIZABEHT ULLOA 08/22/2024 15:34:00 Final Observation Date Value Abnormality Reference (Units ) Status T4, Total 08/22/2024 15:34:00 5.2 4.6-12.0 ( ug/dL) Final Performing Location [facility] - [address] [facility] [address]
--- OUTSIDE RECORDS SUMMARY | 2024-09-21 08:05 | External Medical Summary ---
Author Name Unknown Address Unknown Organization [id number]:[facility] [place] [address] [facility] [address] Laboratory Report Ordering Provider Test Date Status ELIZABETH ALMEIDA 08/22/2024 15:34:00 Final Observation Date Value Abnormality Reference (Units ) Status HbA1C 08/22/2024 15:34:00 11.5 Above high normal 4. 0-5.6 (%) Final The use of HbA1c to monitor glycemic status is based on normal hemoglobin and HbA composition. This test should not be used in patients with abnormal hemoglobin that affects the half life of the red blood cell or the in vivo glycation rates. Glucose, estimated average 08/22/2024 15:34:00 283 Above high normal <126 (mg/dL) Christian flores Performing Location [facility]ORY [facility] [place] [facility] [address] [facility] [address]
--- OUTSIDE RECORDS SUMMARY | 2024-09-21 08:05 | External Medical Summary ---
Author Name Unknown Address Unknown Organization K01:[place] [facility] [place] [address] [facility] [address] Laboratory Report Ordering Provider Test Date Status ELIZABETH ALMEIDA 08/22/2024 15:34:00 Final For monitoring progression o f an HIV positive patient. For HIV screening, use HIV ANTIGEN \T\ ANTIBODY SCREEN W/ CONFIRMATION [[id number]]. Observation Date Value Abnormality Reference (Units) Status HIV-1 RNA 15:34:00 125 Above high normal <=0 (copies/mL) Final HIV 1 RNA [Log #/volume] (viral load) in Serum or Plasma by SILVIO with probe detection 15:34:00 2.10 Above high normal <=0.00 (log copies/mL) Final Genetic variant clinical significance [Interpretation] in Blood or Tissue by Molecular genetics method 15:34:00 Test results have been reported to [facility]. Final Genetic variant clinical significance [Interpretation] in Blood or Tissue by Molecular genetics method 15:34:00 Final Genetic variant clinical significance [Interpretation] in Blood or Tissue by Molecular genetics method 15:34:00 The HIV-1 assay is intended for use [...] to confirm the presence of HIV-1 infection. Final Genetic variant clinical significance [Interpretation] in Blood or Tissue by Molecular genetics method 12/10/202 4 15:34:00 Final Additional comments [RFC] 4 15:34:00 The HIV-1 assay is an in vitro nucleic acid amplification test for the quantitation of human immunodeficiency virus type 1 (HIV-1) in EDTA plasma of FEU-5-leytlihf individuals using an automated system for specimen processing, amplification and detection. This test detects and quantifies, but does not discriminate between HIV groups M, N, and O subtypes. The test can quantitate HIV-1 RNA over a reportable range of 20-10,000,000 copies/mL (1.30-7.00 log copies/mL). For low volume specimens (<350uL of plasma) the reportable range is 50-10,000,000 copies/mL (1.70-7.00 log copies/mL). Final Additional comments [RFC] 4 15:34:00 The assay was verified and performance characteristics determined by the Molecular Diagnostics Laboratory at [facility]. This test is used for clinical purposes. Final FDA package insert References section 4 15:34:00 1. Centers for Disease Control and Prevention and Association of Public Health Laboratories. Laboratory Testing for the Diagnosis of HIV Infection: Updated Recommendations. March 09, 2014. Available at http://stacks.cdc.gov /view/cdc/93348 Final FDA package insert References section 4 15:34:00 2. Adarsh RIVERA, Laurie MS, Sukumar CA, et al: Antiretroviral Drugs for Treatment and Prevention of HIV Infection in Adults: 2016 Recommendations of the International Antiviral Society-[place] Panel. KAITLIN 2016;316(2):191-210. Available at https://jamanetwork.c om/journals/kaitlin/full article/6076899 Final FDA package insert References section 4 15:34:00 3. Panel on Antiretroviral Guidelines for Adults and Adolescents: Guidelines for the Use of Antiretroviral Agents in Adults and Adolescents Living with HIV. U.S. Department of Health and Human Services. June 29, 2017. Available at https://aidsinfo.nih. gov/guidelines/html/1 /ltvai-gls-ykrxhzjkny -arv/3/nvwoo-bun-pbmp xyp-vlrdbwgnwt-yjc-fo llow-up Final Performing Location [facility] [facility] [place] [address] [facility] [address]
--- OUTSIDE RECORDS SUMMARY | 2024-09-21 08:05 | External Medical Summary ---
Author Name Unknown Address Unknown Organization K1F:LABORATORY [facility] - [address] [place] [address] Laboratory Report Ordering Provider Test Date Status ELIZABETH ALMEIDA 08/22/2024 15:34:00 Final Observation Date Value Abnormality Reference (Units ) Status Retic, % (auto) 08/22/2024 15:34:00 1.86 0.80-1.90 (%) Final Reticulocytes, Absolute 08/22/2024 15:34:00 69.8 31.3-100.1 (K/uL) Final Reticulocyte fraction, immature 08/22/2024 15:34:00 12.3 2.5-20.6 (%) Final Reticulocyte HGB 08/22/2024 15:34:00 28.7 Below low normal 29.7-37.4 (pg) Final Performing Location LABORATORY [facility] - [address] [place] [address]
--- OUTSIDE RECORDS SUMMARY | 2024-09-21 08:05 | External Medical Summary ---
Author Name Unknown Address Unknown Organization : Laboratory Report Ordering Provider Test Date Status RENE VILLANUEVA 08/22/2024 13:51:45 Final Observation Date Value Abnormality Reference (Units ) Status Glucose Point of Care 08/22/2024 13:51:45 275 Above high normal 70-120 (mg/dL) Final Performing Location
--- OUTSIDE RECORDS SUMMARY | 2024-09-21 08:05 | External Medical Summary ---
Author Name Unknown Address Unknown Organization K01:LABORATORY [facility] - [address] [place] [address] Laboratory Report Ordering Provider Test Date Status JUAN PABLOKATERIN ULLOAOY 08/22/2024 15:34:00 Final Observation Date Value Abnormality Reference (Units ) Status T3, Total 08/22/2024 15:34:00 59 Below low normal 80- 200 (ng/dL) Final Performing Location LAB[facility]ORY [facility] - [address] [place] [address]
--- OUTSIDE RECORDS SUMMARY | 2024-09-21 08:05 | External Medical Summary ---
Author Name Unknown Address Unknown Organization K1F:LABORATORY [facility] - [address] [address] Laboratory Report Ordering Provider Test Date Status AIDA MENDOZA 08/21/2024 12:01:00 Final Observation Date Value Abnormality Reference (Units ) Status BUN 08/21/2024 12:01:00 27 Above high normal 6-20 (mg/dL) Final Creatinine 08/21/2024 12:01:00 2.7 Above high normal 0.6-1.2 (mg/dL) Final Glomerular filtration rate/1.73 sq M.predicted [Volume Rate/Area] in Serum, Plasma or Blood by Creatinine-based formula (CKD-EPI) 08/21/2024 12:01:00 24 Below low normal >=60 (mL/min) Final eGFR is calculated based on the CKD-EPI 2020 equation. Sodium 08/21/2024 12:01:00 137 135-146 (m mol/L) Final Potassium 08/21/2024 12:01:00 3.7 3.5-5.1 (m mol/L) Final Cl 08/21/2024 12:01:00 98 98-107 (mm ol/L) Final CO2 08/21/2024 12:01:00 27 22-32 (mmo l/L) Final Anion gap 08/21/2024 12:01:00 12 7-15 (mmol /L) Final Glucose 08/21/2024 12:01:00 184 Above high normal 70 -120 (mg/dL) Final Calcium 08/21/2024 12:01:00 7.9 Below low normal 8.4 -10.2 (mg/dL) Final Performing Location LABORATORY [facility] - [address] [address]
--- OUTSIDE RECORDS SUMMARY | 2024-09-21 08:05 | External Medical Summary ---
Author Name Unknown Address Unknown Organization K1F:LABORATORY [facility] - [address] [address] Laboratory Report Ordering Provider Test Date Status ELIZABETH ALMEIDA 08/22/2024 16:12:00 Final Observation Date Value Abnormality Reference (Units ) Status T4, Free 08/22/2024 16:12:00 1.0 0.9-1.7 (n g/dL) Final Performing Location LABORATORY [facility] - [address] [address]
--- OUTSIDE RECORDS SUMMARY | 2024-09-21 08:05 | External Medical Summary ---
Author Name Unknown Address Unknown Organization K1F:LABORATORY [facility] [place] - [address] [facility] [address] Laboratory Report Ordering Provider Test Date Status ELIZABETH ALMEIDA 08/22/2024 15:34:00 Final Observation Date Value Abnormality Reference (Units ) Status WBC, Total 08/22/2024 15:34:00 3.50 Below low normal 4. 00-10.80 (K/uL) Final RBC 08/22/2024 15:34:00 3.70 4.50-5.25 (M/uL) Final Hemoglobin 08/22/2024 15:34:00 10.7 Below low normal 14 .0-16.8 (g/dL) Final Anemia reflex testing trigge rs on a HGB < 12.0 for Females and HGB < 13.0 for Males in accordance with the WHO Anemia Guidelines
Anemia reflex testing triggers on a HGB < 12.0 for Females and HGB < 13.0 for Males in accordance with the WHO Anemia Guidelines HCT 08/22/2024 15:34:00 31.7 Below low normal 40. 0-48.4 (%) Final MCV 08/22/2024 15:34:00 85.7 82.0-99.5 (fL) Final MCH 08/22/2024 15:34:00 28.9 27.0-34.0 (pg) Final MCHC 08/22/2024 15:34:00 33.8 32.0-36.0 (g/dL) Final RDW 08/22/2024 15:34:00 13.2 11.5-15.5 (%) Final Platelets 08/22/2024 15:34:00 130 Below low normal 140 -400 (K/uL) Final MPV 08/22/2024 15:34:00 8.6 6.6-11.1 ( fL) Final Nucleated erythrocytes/100 leukocytes [Ratio] in Blood by Automated count 08/22/2024 15:34:00 0 <=0 (/100 WBCs) Final Performing Location LABORATORY [facility] [place] - [facility] [address] [address]
--- OUTSIDE RECORDS SUMMARY | 2024-09-21 08:05 | External Medical Summary ---
Author Name Unknown Address Unknown Organization K01:LABORATORY [facility] [place] - [address] [facility] [address] Laboratory Report Ordering Provider Test Date Status ELIZABETH ALMEIDA 08/22/2024 16:12:00 Final Observation Date Value Abnormality Reference (Units ) Status T3, Free 08/22/2024 16:12:00 1.5 Below low normal 2.5 -4.3 (pg/mL) Final Performing Location LABORATORY [facility] [place] - [address] [facility] [address]
--- OUTSIDE RECORDS SUMMARY | 2024-09-21 08:05 | External Medical Summary ---
Author Name Unknown Address Unknown Organization K1F:LABORATORY [facility] - [address] [facility] [place] [address] Laboratory Report Ordering Provider Test Date Status ELIZABETH ALMEIDA 08/22/2024 16:12:00 Final Observation Date Value Abnormality Reference (Units ) Status BUN 08/22/2024 16:12:00 38 Above high normal 6-20 (mg/dL) Final Creatinine 08/22/2024 16:12:00 3.6 Above high normal 0.6-1.2 (mg/dL) Final Glomerular filtration rate/1.73 sq M.predicted [Volume Rate/Area] in Serum, Plasma or Blood by Creatinine-based formula (CKD-EPI) 08/22/2024 16:12:00 17 Below low normal >=60 (mL/min) Final eGFR is calculated based on the CKD-EPI 2020 equation. Sodium 08/22/2024 16:12:00 132 Below low normal 135 -146 (mmol/L) Final Potassium 08/22/2024 16:12:00 3.8 3.5-5.1 (m mol/L) Final Cl 08/22/2024 16:12:00 96 Below low normal 98- 107 (mmol/L) Final CO2 08/22/2024 16:12:00 23 22-32 (mmo l/L) Final Anion gap 08/22/2024 16:12:00 13 7-15 (mmol /L) Final Glucose 08/22/2024 16:12:00 278 Above high normal 70 -120 (mg/dL) Final Albumin 08/22/2024 16:12:00 3.9 3.8-5.0 (g /dL) Final AST (Aspartate aminotransferase) 08/22/2024 16:12:00 24 10-50 (U/L) Fin al Alk Phos 08/22/2024 16:12:00 123 35-130 (U/ L) Final Bilirubin, Total 08/22/2024 16:12:00 0.5 <=1 .2 (mg/dL) Final Calcium 08/22/2024 16:12:00 8.4 8.4-10.2 ( mg/dL) Final Protein 08/22/2024 16:12:00 6.2 6.0-8.3 (g /dL) Final ALT (Alanine aminotransferase) 08/22/2024 16:12:00 26 10-50 (U/L) Christian flores Performing Location LABORATORY [facility] - [address] [place] [address] [place] [address]
--- OUTSIDE RECORDS SUMMARY | 2024-09-21 08:05 | External Medical Summary ---
Author Name Unknown Address Unknown Organization K01:LABORATORY [facility] [place] [facility] [place] - [address] [facility] [address] Laboratory Report Ordering Provider Test Date Status JUAN PABLOELIZABETH 08/22/2024 15:34:00 Final Observation Date Value Abnormality Reference (Units ) Status Erythrocyte sedimentation rate by Photometric method 08/22/2024 15:34:00 14 <20 (mm/hour) Final Performing Location LABORATORY [facility] [place] [place] - [address] [facility] [address]
--- OUTSIDE RECORDS SUMMARY | 2024-09-21 08:05 | External Medical Summary ---
Author Name Unknown Address Unknown Organization : Laboratory Report Ordering Provider Test Date Status RENE VILLANUEVA 08/22/2024 11:59:51 Final Observation Date Value Abnormality Reference (Units ) Status Glucose Point of Care 08/22/2024 11:59:51 293 Above high normal 70-120 (mg/dL) Final Performing Location
--- OUTSIDE RECORDS SUMMARY | 2024-09-21 08:05 | External Medical Summary | Summary of Care ---
Author Name Unknown Organization [facility] Address [address] [place] [address] Phone [phone] Care Team Providers Care Supervisor Model Making Name Role Phone Antonio Colon MD Primary Care Provider [phone] Encounter Details Date Type Department Care Team (Late st Contact Info) Description 05/02/2024 Telephone Family Practice [facility] [address] [facility] [place] [address] Antonio Colon MD [address] [place] [address] Allergies No known active allergiesdocumented as of this encounter (statuses as of 08/01/2024) Medications Co Q 10 10 MG Oral [...] Hour (toPROL XL)Indications:C oronary artery disease involving [place] coronary artery of [place] heart without angina pectoris TAKE 1 TABLET BY MOUTH EVERY DAY IN THE MORNING 90 Tablet 3 10/05/19 24 Active Prasugrel HCl 10 MG Oral Tablet (Effient)Indicat ions:Coronary artery disease involving [place] coronary artery of [place] heart without angina pectoris TAKE 1 TABLET [...] 90 Tablet 3 12/01/19 24 Active Pen [place] 32G X 4 MM Use as directed. Use to inject insulin 4 times daily E11.9 400 Each 3 12/02/19 24 Active Sevelamer Carbonate 800 MG Oral Tablet (Renvela) Take 1 Tablet by mouth in the morning and 1 Tablet at noon and 1 Tablet in the evening. Take with meals. 02/08/20 24 Active FLUoxetine HCl 20 MG Oral [...] 3 03/24/20 24 Active FreeStyle Carlos 2 [place] DeviceIndication s:Type 2 diabetes mellitus with hemoglobin A1c goal of less than 8.0% (HCC) Use as directed. Use to test BG E10.65 1 Each 04/11/20 24 Active FreeStyle Carlos 2 SensorIndication s:Type [...] 15 mL 3 4 10:53 AM EDT 04/26/20 24 Active Basaglar KwikPen 100 UNIT/ML Subcutaneous Solution Pen-injector (Insulin Glargine Solostar) INJECT UNDER THE SKIN 22 UNITS IN THE MORNING. 30 mL 1 04/29/20 23 024 Discontinued Calcitriol 0.5 MCG Oral Capsule (Rocaltrol)Indic ations:CKD (chronic kidney disease) stage 4, GFR 15-29 ml/min ([facility]) TAKE 1 CAPSULE (0.5 MCG) BY MOUTH IN THE MORNING. 90 Capsule 5 09/15/19 24 024 Discontinued(Di scharged) NovoLOG FlexPen 100 UNIT/ML Subcutaneous Solution Pen-injector (insulin aspart) INJECT 10 UNITS THREE TIMES A DAY WITH MEALS or as directed 15 mL 5 02/21/20 24 024 Discontinued(Di scharged) Hospital, Clinic, or Other Facility Administered Medication Ordered Dose Route Frequency Start Date End Date Status Albuterol Sulfate (Proventil) (2.5 MG/3ML) 0.083% inhalation solution 2.5 mgIndications:ESRD on dialysis ([facility]),Pre-transplant evaluation for ESRD (end stage renal disease) 2.5 mg NEBULIZER PRN 03/24/2024 Acti ve Albuterol Sulfate (Proventil) (5 MG/ML) 0.5% *conc* inhalation solution 2.5 mgIndications:ESRD on dialysis ([facility]),Pre-transplant evaluation for ESRD (end stage renal disease) 2.5 mg NEBULIZER PRN 03/24/2024 Acti ve documented as of this encounter (statuses as of 08/01/2024) Active Problems Problem Noted Date Diagnosed Date AVF (arteriovenous fistula) 07/19/2024 ESRD on dialysis 02/02/2024 History of GI bleed 02/02/2024 Overview (02/02/2024): Duodenal ulcer Duodenal ulcer 02/02/2024 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 05/07/2023 Recurrent major depressive disorder, in full rem ission 05/05/2022 Overweight (BMI 25.0-29.9) 05/02/2022 Dyslipidemia 05/02/2022 Coronary artery disease invo lving [place] coronary artery of [place] heart without angina pectoris 05/02/2022 Type 2 diabetes mellitus wit h hemoglobin A1c goal of less than 8.0% 05/02/2022 Old [place] (myocardial infarction) 05/02/2022 Chronic systolic (congestive) heart failure 04/14 Left bundle branch block 05/02/2022 HTN, goal below 130/80 HIV positive documented as of this encounter (statuses as of 08/01/2024) Resolved Problems Problem Noted Date Diagnosed Date Resolved Date Chronic heart failure with p reserved ejection fraction 11/24/2022 02/04/2023 Kidney disease, chronic, sta ge IV (GFR 15-29 ml/min) 05/02/2022 02/02/2024 ARDS (adult respiratory distress syndrome) 06/17/2012 05/02/2022 Acute pancreatitis 06/14/2012 Acute respiratory distress 06/14/2012 0 05/02/2022 documented as of this encounter (statuses as of 08/01/2024) Immunizations Name Administration Dates Next Due COVID-19 mRNA, LNP-s, No Pre serve, 2-Dose Series (Moderna) 11/27/2020,10/24/2020 COVID-19, MRNA-LNP, PF, 50 M CG/0.5 mL, 12 YRS AND ABOVE, IM (MODERNA-Spikevax) 08/05/2021 Covid-19, Mrna, Lnp-s, Pf, B ivalent, 30 Mcg, IM, 12 yrs and above ([place]) 09/09/2022 Hepatitis B, 20+ yrs 08/25/2017 Meningococcal [...] 08/22/2024 10:20 AM EST Office Visit Infectious Disease, [address] [phone] Shirley Asencio MD [address] [place], [place] [id number] 08/23/2024 10:10 AM EST Office Visit Vascular Surgery, [facility] [address] [place] [address] Simeon Perez MD [address] [place] [address] 09/19/2024 3:30 PM EST Office Visit Cardiology, [facility] [address] [place] [address] Davy Mota MD [address] [place] [address] 10/13/2024 9:00 AM EST Office Visit Family Practice [facility] [address] [facility] [address] [place] [address] Antonio Colon MD [address] [place] [address] Scheduled Procedures Name Priority Associated Diagnoses Date/Ti [...] 09/09/2022, Additional history exists HbA1c 10/12/2024 04/11/2024, 052 10/2023, 05/07/2023, Additional history exists Colonoscopy 01/06/2025 01/07/2024, 06/0 05/2023, 02/19/2023 Colorectal Cancer Screening 01/06/2025 Depression Monitoring 01/17/2025 01/18/2024 Diabetic Foot Exam 01/17/2025 01/18/2024, 11/24/2022 TSH 02/01/2025 02/02/2024, 052 10/2023, 01/18/2024 DTap/Tdap Vaccines (2 - Td or Tdap) 07/23/2027 07/23/2017 Albumin/Creatinine Ratio Discontinued 05/07/2023, 05/0 11/2021 RETIRED - COLONOSCOPY-ANNUAL AGES 18-100 Discontinued 01/07/2024, 02/19/2023, 02/19/2023 AAA Screening Completed 05/08/2024, 0509/2021, 01/29/2020, Additional history exists Nephrology Referral Discontinued [...] Healthcare Agent Relationshi p Communication Lorin Silvestre [facility] Health Care Repr esentative (appointed verbally by patient or by statute hierarchy) Care Teams Supervisor Model Making Relationship Specialty Start Date End Date Antonio Colon MD [address] [address] PCP - General Family Medicine 02/12/22 documented as of this encounter
--- OUTSIDE RECORDS SUMMARY | 2024-09-21 08:05 | External Medical Summary ---
Author Name Unknown Address Unknown Organization K1F:LABORATORY [facility] - [address] [address] Laboratory Report Ordering Provider Test Date Status ELIZABETH ALMEIDA 08/22/2024 15:34:00 Final Observation Date Value Abnormality Reference (Units ) Status CRP, low-sensitivity 08/22/2024 15:34:00 64 Above high normal <=5 (mg/L) Final Performing Location LABORATORY [facility] - [address] [address]
--- OUTSIDE RECORDS SUMMARY | 2024-09-21 08:06 | External Medical Summary ---
Author Name Unknown Address Unknown Organization : Laboratory Report Ordering Provider Test Date Status RENE VILLANUEVA 07/28/2024 12:33:29 Final Observation Date Value Abnormality Reference (Units ) Status Glucose Point of Care 07/28/2024 12:33:29 301 Above high normal 70-120 (mg/dL) Final Performing Location
--- OUTSIDE RECORDS SUMMARY | 2024-09-21 08:06 | External Medical Summary | Summary of Care ---
Author Name Unknown Organization [facility] Address [address] [place] [address] Phone [phone] Care Team Providers Care Press Room Supervisor Name Role Phone Abimael Us MD Primary Care Provider [phone] Reason for Visit * Reason Comments eRx-Medication Refill Encounter Details Date Type Department Care Team (Late st Contact Info) Description 07/26/2024 Refill Family Practice [facility] [address] [place] [address] Abimael Us MD [address] [facility] [place] [address] Allergies No known active allergiesdocumented as of this encounter (statuses as of 07/28/2024) Medications Co Q 10 10 MG Oral [...] Hour (toPROL XL)Indications:C oronary artery disease involving [place] coronary artery of [place] heart without angina pectoris TAKE 1 TABLET BY MOUTH EVERY DAY IN THE MORNING 90 Tablet 3 10/05/19 24 Active Prasugrel HCl 10 MG Oral Tablet (Effient)Indicat ions:Coronary artery disease involving [place] coronary artery of [place] heart without angina pectoris TAKE 1 TABLET [...] 90 Tablet 3 12/01/19 24 Active Pen [place] 32G X 4 MM Use as directed. [...] 3 03/24/20 24 Active FreeStyle Carlos 2 [place] DeviceIndication s:Type 2 diabetes mellitus with hemoglobin A1c goal of less than 8.0% ([facility]) Use as directed. Use to test BG E10.65 1 Each 04/11/20 24 Active FreeStyle Carlos 2 SensorIndication s:Type 2 diabetes mellitus with hemoglobin A1c goal of less than 8.0% ([facility]) Use as directed. Use one sensor every 14 days for blood sugar E10.65 1 Each 04/11/20 24 Active Fiasp FlexTouch 100 UNIT/ML Subcutaneous Solution Pen-injector (Insulin Aspart (w/Niacinamide)) Indications:Type 2 diabetes mellitus with hemoglobin A1c goal of less than 8.0% ([facility]) Inject 10 Units under the skin in the morning and 10 Units at noon and 10 Units before bedtime. With meals. 15 mL 3 04/27/2024 10:53 AM EDT 04/26/20 24 Active Basaglar KwikPen 100 UNIT/ML Subcutaneous Solution Pen-injector (Insulin Glargine Solostar) INJECT UNDER THE SKIN 22 UNITS IN THE MORNING. 30 mL 1 07/28/20 24 Active Basaglar KwikPen 100 UNIT/ML Subcutaneous Solution Pen-injector (Insulin Glargine Solostar) INJECT UNDER THE SKIN 22 UNITS IN THE MORNING. 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 05/07/2023 Recurrent major depressive disorder, in full rem ission 05/05/2022 Overweight (BMI 25.0-29.9) 05/02/2022 Dyslipidemia 05/02/2022 Coronary artery disease invo lving [place] coronary artery of [place] heart without angina pectoris 05/02/2022 Type 2 diabetes mellitus wit h hemoglobin A1c goal of less than 8.0% 05/02/2022 [place] (myocardial infarction) 05/02/2022 Chronic systolic (congestive) heart failure 04/14 Left bundle branch block 05/02/2022 HTN, goal below 130/80 HIV positive documented as of this encounter (statuses as of 07/28/2024) Resolved Problems Problem Noted Date Diagnosed Date Resolved Date Chronic heart failure with p reserved ejection fraction 11/24/2022 02/04/2023 Kidney disease, chronic, sta ge IV (GFR 15-29 ml/min) 05/02/2022 02/02/2024 ARDS (adult respiratory distress syndrome) 06/17/2012 05/02/2022 Acute pancreatitis 06/14/2012 2 Acute respiratory distress 06/14/2012 0 05/02/2022 documented as of this encounter (statuses as of 07/28/2024) Immunizations Name Administration Dates Next Due COVID-19 [...] encounter Miscellaneous Notes * Telephone Encounter - [facility] - 07/28/2024 8:32 AM EST Signed Prescriptions: Disp Refills Basaglar KwikPen 100 UNIT/ML Subcutaneous *30 mL 1 Sig: INJECT UNDER THE SKIN 22 UNITS IN THE MORNING.Authorizing Provider: ABIMAEL US User: DAVID MARIE documented in this encounter Plan of Treatment Upcoming Encounters Date Type Department Care Team (Late st Contact Info) Description 08/22/2024 10:20 AM EST Office Visit Infectious Disease, [address] [phone] Shirley Asencio MD [address] [place] [address] 08/23/2024 10:10 AM EST Office Visit Vascular Surgery, [facility] [address] [place] [address] Simeon Perez MD [address] [place] [address] 09/19/2024 3:30 PM EST Office Visit Cardiology, [facility] [address] [facility] [place] [address] Davy Mota MD [address] [facility] [place] [address] 10/13/2024 9:00 AM EST Office Visit Family Practice [facility] [address] [facility] [place] [address] Abimael Us MD [address] [place] [address] Scheduled Procedures Name Priority Associated Diagnoses Date/Ti me INSERT TUNNELED CENTRAL VENOUS CATHETER AGE 5 OR OLDER ESRD on dialysis (HCC) 07/28/2024 1:15 PM EST COLONOSCOPY FLEXIBLE PROXIMAL DIAGNOSTIC Recall [...] 09/09/2022, Additional history exists HbA1c 10/12/2024 04/11/2024, 01/12, [...] Healthcare Agent Relationshi p Communication Lorin Silvestre [facility] Health Care Repr esentative (appointed verbally by patient or by statute hierarchy) Care Teams Press Room Supervisor Relationship Specialty Start Date End Date Abimael Us MD [address] [address] PCP - General Family Medicine 02/12/22 documented as of this encounter
--- OUTSIDE RECORDS SUMMARY | 2024-09-21 08:06 | External Medical Summary | Summary of Care ---
Author Name Unknown Organization [facility] Address [address] [place] [address] Phone [phone] Care Team Providers Care Manager Motor Name Role Phone Antonio Colon MD Primary Care Provider [phone] Reason for Visit * Reason Onset Date Comments Scheduling 07/26/2024 Encounter Details Date Type Department Care Team (Late st Contact Info) Description 07/26/2024 Telephone NephrologyMadeline [address] [facility] [place] [address] Tesfaye Morris MD [address] [facility] [place] [address] Scheduling Allergies No known active allergiesdocumented as of this encounter (statuses as of 07/26/2024) Medications Co Q 10 10 MG Oral Capsule Take by mouth 1 Caplet Dosing Unit daily . Active Aspirin 81 MG Oral Capsule Take by mouth 1 Caplet Dosing Unit daily . Active Multi-Day Oral Tablet Take by mouth 1 Tablet in the morning. Active Vitamin D-3 25 MCG (1000 UT) Oral Capsule Take 1 Capsule by mouth in the morning. Active Basaglar KwikPen 100 UNIT/ML Subcutaneous Solution Pen-injector (Insulin Glargine Solostar) INJECT UNDER THE SKIN 22 UNITS IN THE MORNING. 30 mL 1 04/29/20 23 Active Additional Information Patient taking differently: 10 UnitsSubcutaneous [id number], Reported on 05/08/2024 Metoprolol Succinate ER 25 MG Oral Tablet Extended Release 24 Hour (toPROL XL)Indications: Coronary artery disease involving [place] coronary artery of [place] heart without angina pectoris TAKE 1 TABLET BY MOUTH EVERY DAY IN THE MORNING 90 Tablet 3 10/05/19 24 Active Prasugrel HCl 10 MG Oral Tablet (Effient)Indica tions:Coronary artery disease involving [place] coronary artery of [place] heart without angina pectoris TAKE 1 TABLET [...] 90 Tablet 3 12/01/19 24 Active Pen Brave 32G X 4 MM Use as directed. [...] 3 03/24/20 24 Active FreeStyle Carlos 2 [place] DeviceIndicatio ns:Type 2 diabetes mellitus with hemoglobin A1c goal of less than 8.0% ([facility]) Use as directed. Use to test BG E10.65 1 Each 04/11/20 24 Active FreeStyle Carlos 2 SensorIndicatio ns:Type 2 diabetes mellitus with hemoglobin A1c goal of less than 8.0% ([facility]) Use as directed. Use one sensor every 14 days for blood sugar E10.65 1 Each 04/11/20 24 Active Fiasp FlexTouch 100 UNIT/ML Subcutaneous Solution Pen-injector (Insulin Aspart (w/Niacinamide) )Indications:Ty pe 2 diabetes mellitus with hemoglobin A1c goal of less than 8.0% ([facility]) Inject 10 Units under the skin in the morning and 10 Units at noon and 10 Units before bedtime. With meals. 15 mL 3 4 10:53 AM EDT 04/26/20 24 Active Hospital, Clinic, or Other Facility Administered Medication Ordered Dose Route Frequency Start Date End Date Status Albuterol Sulfate (Proventil) (2.5 MG/3ML) 0.083% inhalation solution 2.5 mgIndications:ESRD on dialysis ([facility]),Pre-transplant evaluation for ESRD (end stage renal disease) 2.5 mg NEBULIZER PRN 03/24/2024 Acti ve Albuterol Sulfate (Proventil) (5 MG/ML) 0.5% *conc* inhalation solution 2.5 mgIndications:ESRD on dialysis ([facility]),Pre-transplant evaluation for ESRD (end stage renal disease) 2.5 mg NEBULIZER PRN 03/24/2024 Acti ve documented as of this encounter (statuses as of 07/26/2024) Active Problems Problem Noted Date Diagnosed Date AVF (arteriovenous fistula) 07/19/2024 ESRD on dialysis 02/02/2024 History of GI bleed 02/02/2024 Overview (02/02/2024): Duodenal ulcer Duodenal ulcer 02/02/2024 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 05/07/2023 Recurrent major depressive disorder, in full rem ission 05/05/2022 Overweight (BMI 25.0-29.9) 05/02/2022 Dyslipidemia 05/02/2022 Coronary artery disease invo lving [place] coronary artery of [place] heart without angina pectoris 05/02/2022 Type 2 diabetes mellitus wit h hemoglobin A1c goal of less than 8.0% 05/02/2022 [place] (myocardial infarction) 05/02/2022 Chronic systolic (congestive) heart failure 04/14 Left bundle branch block 05/02/2022 HTN, goal below 130/80 HIV positive documented as of this encounter (statuses as of 07/26/2024) Resolved Problems Problem Noted Date Diagnosed Date Resolved Date Chronic heart failure with p reserved ejection fraction 11/24/2022 02/04/2023 Kidney disease, chronic, sta ge IV (GFR 15-29 ml/min) 05/02/2022 02/02/2024 ARDS (adult respiratory distress syndrome) 06/17/2012 05/02/2022 Acute pancreatitis 06/14/2012 Acute respiratory distress 06/14/2012 0 05/02/2022 documented as of this encounter (statuses as of 07/26/2024) Immunizations Name Administration Dates Next Due COVID-19 [...] encounter Miscellaneous Notes * Telephone Encounter - Kenyon Mars RN - 07/26/2024 9:23 AM EST Spoke with patient over the phone to schedule tunneled dialysis catheter insertion, agreed to schedule on 07/28, time TBD by [facility] . Pt instructed to hold antidiabetics the morning of the procedure to prevent hypoglycemia during fasting period. Pt stated he may not be able to find a ride home after pr ocedure, patient may opt for local-only procedure to facilitate his driving himself home post-OP. Pt verbalized understanding of instructions and had no further questions at this time. Patient identified by: name and date of Person taught: Patient METHOD: Lecture-telephone interview PATIENT INSTRUCTIONS GIVEN: - Medication Instructions Reviewed - NPO Instructions Reviewed, pt to stop eating 8 hours prior to procedure and stop drinking 2 hoursprior to procedure. -[employer] required Location and check-in instructions Verbalizes understanding of education: Yes Procedure date at time of Imaging Encounter: 07/28 What procedure is patient having? tunneled dialysis catheter insertion Laterality confirmed as Not Applicable Does the patient have a yellow bar? did not The Patient was given the opportunity to ask questions concerning the procedure. Signature: Kenyon Mars RN 07/26/2024 * Telephone Encounter - Lorelei Valenzuela OSA - 07/26/2024 8:44 AM EST Called patient to schedule Tunneled Dialysis Catheter Insertion. No answer. Left message for patient to return call. documented in this encounter Plan of Treatment Upcoming Encounters Date Type Department Care Team (Late st Contact Info) Description 08/22/2024 10:20 AM EST Office Visit Infectious Disease, [address] [address] Shirley Asencio MD [address] [place] [address] 08/23/2024 10:10 AM EST Office Visit Vascular Surgery, [facility] [address] [place] [address] Simeon Perez MD [address] [place] [address] 09/19/2024 3:30 PM EST Office Visit Cardiology, [facility] [address] [place] [address] Davy Mota MD [address] [facility] [place] [address] 10/13/2024 9:00 AM EST Office Visit Family Practice [facility] [address] [facility] [place] [address] Antonio Colon MD [address] [place] [address] Scheduled Procedures Name Priority Associated Diagnoses Date/Ti [...] Healthcare Agent Relationshi p Communication Lorin Konrad [facility] Health Care Repr esentative (appointed verbally by patient or by statute hierarchy) Care Teams Manager Motor Relationship Specialty Start Date End Date Antonio Colon MD [address] [address] PCP - General Family Medicine 02/12/22 documented as of this encounter
--- OUTSIDE RECORDS SUMMARY | 2024-09-21 08:06 | External Medical Summary | Summary of Care ---
Author Name Unknown Organization [facility] Address [address] [place] [address] Phone [phone] Care Team Providers Care Product Development Manager Name Role Phone Antonio Colon MD Primary Care Provider [phone] Reason for Visit * Auth/Cert Specialty Diagnoses / Procedures Referred By Marques garg Referred To Contact Diagnoses ESRD on dialysis (HCC) ESRD on dialysis (HCC) [N18.6, Z99.2] Procedures INSER MARCUS CAT,W/O PUMP;5YR/OLD INSERT TUNNELED CENTRAL VENOUS CATHETER AGE 3 OR OLDER Damion Barber MD [address] [facility] [address] Phone: tel: fax: OR [facility], Operating Room, [facility] - 4th Floor [address] [place] [address] [place] [address] Phone: tel: Referral ID Status Reason Start Date Expiration Date Visits Re quested Visits Authorized [id number] Encounter Details Date Type Department Care Team (Latest Contact Info) Description 07/28/2024 12:09 PM EST - 07/28/2024 5:58 PM EST Hospital Encounter OR [facility], Operating Room, [facility] - 4th Floor [address] [place] [address] Damion Barber MD [address] [place] [address] Discharge Disposition: Home - Self Care Allergies No known active allergiesdocumented as of this encounter (statuses as of 07/29/2024) Medications Co Q 10 10 MG Oral [...] Hour (toPROL XL)Indications:Co ronary artery disease involving lower sioux coronary artery of lower sioux heart without angina pectoris TAKE 1 TABLET BY MOUTH EVERY DAY IN THE MORNING 90 Tablet 3 4 Active Prasugrel HCl 10 MG Oral Tablet (Effient)Indicati ons:Coronary artery disease involving lower sioux coronary artery of lower sioux heart without angina pectoris TAKE 1 TABLET BY MOUTH EVERY DAY IN THE MORNING 90 Tablet 3 4 Active Atorvastatin Calcium 40 MG Oral Tablet (Lipitor)Indicati ons:Dyslipidemia, goal LDL below 70 TAKE 1 TABLET BY MOUTH EVERY DAY IN THE MORNING 90 Tablet 3 4 Active Juluca 50-25 MG Oral Tablet Take 1 Tablet by mouth daily. 90 Tablet 3 4 Active Pen [place] 32G X 4 MM Use as directed. [...] Tablet 3 4 Active FreeStyle Carlos 2 [place] DeviceIndications :Type 2 diabetes mellitus with hemoglobin [...] THE MORNING. 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 05/07/2023 Recurrent major depressive disorder, in full rem ission 05/05/2022 Overweight (BMI 25.0-29.9) 05/02/2022 Dyslipidemia 05/02/2022 Coronary artery disease invo lving lower sioux coronary artery of lower sioux heart without angina pectoris 05/02/2022 Type 2 diabetes mellitus wit h hemoglobin A1c goal of less than 8.0% 05/02/2022 Old ME (myocardial infarction) 05/02/2022 Chronic systolic (congestive) heart failure 04/14 Left bundle branch block 05/02/2022 HTN, goal below 130/80 HIV positive documented as of this encounter (statuses as of 07/29/2024) Resolved Problems Problem Noted Date Diagnosed Date Resolved Date Chronic heart failure with p reserved ejection fraction 11/24/2022 02/04/2023 Kidney disease, chronic, sta ge IV (GFR 15-29 ml/min) 05/02/2022 02/02/2024 ARDS (adult respiratory distress syndrome) 06/17/2012 05/02/2022 Acute pancreatitis 06/14/2012 2 Acute respiratory distress 06/14/2012 0 05/02/2022 documented as of this encounter (statuses as of 07/29/2024) Immunizations Name Administration Dates Next Due COVID-19 [...] No 01/18/2024 Does the household have a [facility] source [facility] income? (Household - [...] Sign Reading Time Taken Comments Blood Pressure 113/76 07/28/2024 2:52 PM EST Pulse 68 07/28/2024 2:52 PM EST Temperature 36 C (96.8 F) 07/28/2024 2:52 PM EST Respiratory Rate 16 07/28/2024 2:52 PM EST Oxygen Saturation 99% 07/28/2024 2:52 PM EST Inhaled Oxygen Concentration - - Weight 77.6 kg (171 lb) 07/28/2024 12:29 PM EST Height 175.3 cm (5' 9") 07/28/2024 12:29 PM EST Body Mass Index 25.25 07/28/2024 12:29 PM EST documented in this encounter Discharge Instructions * Discharge Instr - AVS* Damion Barber MD - 07/28/2024 2:36 PM EST Discharge Date: 07/28/2024 Provider: Dr. Damion Barber If you are experiencing any problems related to your procedure, please contact Interventional Radiology at [phone] during normal business hours: Wednesday- Wednesday 7:30 am - 4 pm. If a problem occursoutside of normal business hours, please call the hospital pasteurizing machine operator at [phone] and ask for theInterventional Radiologist fashion director party plan sales. Contact scheduling for Interventional Radiology at [phone] during normal business hours: Wednesday-Wednesday, 7:30 am [...] us at the numbers above. SPECIAL INSTRUCTIONS Dialysis Catheter You are going home with a Dialysis Catheter - a small, soft tube that is placed in a vein in your neck or chest. It is used for dialysis. Care for this catheter is routinely provided at the dialysis center during each visit. These instructions will assist in the home care of your dialysis catheter. If your skin turns black around the exit site of your body, this is normal for antibiotic coated catheters. Some of the excessive or extra coating on them will rub off onto the skin. This substance will cause no harm, and is expected. Home Care Dressing changes are managed by visiting nurse service or Dialysis Center, if warranted. If you experience pain or discomfort at the incision sites, you may apply a cold pack to the site, or take Tylenol or your usual pain medication. If the discomfort does not get any better or there isredness or drainage from the site, notify your physician. When showering, please cover your incisions and/or exit site of catheter from skin with plastic wrap to avoid getting them wet. . Do not go swimming, take baths, or soak in a hot tub. If the catheter gets dislodged, secure it with dressing tape and call Interventional Radiology immediately, or go to the closest Emergency Department. Monitor for acute, bright red bleeding or severe swelling at the puncture site. If this occurs, apply firm pressure to the site and call 911 for emergency assistance or go to the closest Emergency Department. When to Call Interventional Radiology Call Interventional Radiology right away if you have any of the following: Fever above 100 degrees Fahrenheit Increased bleeding, redness, swelling, warmth, or discharge at the incision site. Constant or increasing pain, numbness, coldness, or tingling around the incision area. If at any time you experience any of the following or feel you are having a medical emergency, [id number] for emergency assistance. Chest Pain Sudden, severe shortness of breath Rapid heart rate Sudden onset of weakness Do not smoke or use tobacco products in any way! If you feel suicidal or homicidal, please call the crisis hotline at [phone]-NHIK ([phone]). MODERATE SEDATION You may have received medication [...] procedure, unless otherwise instructed by the physician. documented in this encounter H&P Notes * Damion Barber MD - 07/28/2024 1:20 PM EST HISTORY & PHYSICAL - Interventional Radiology Service [facility]-[address] [address] Name: Tad Silvestre Location: [place] [facility]/[place] Date: 07/28/2024 Time: 1:20 PM CHIEF COMPLAINT: Poorly functioning hemocath HISTORY OF PRESENT ILLNESS: Esrd. Possible SVC stenosis. 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 05/07/2023 History of GI bleed 02/02/2024 Duodenal ulcer HIV positive ([facility]) Hypertension Kidney disease, chronic, stage IV (GFR 15-29 ml/min) ([facility]) 05/02/2022 Left bundle branch block 05/02/2022 Old ME (myocardial infarction) 05/02/2022 Overweight (BMI 25.0-29.9) 05/02/2022 Recurrent major depressive disorder, in full remission ([facility]) 05/05/2022 Systolic and diastolic CHF, chronic ([facility]) 05/02/2022 Type 2 diabetes mellitus with hemoglobin A1c goal of less than 8.0% ([facility]) 05/02/2022 Past Surgical History: Procedure Laterality Date AV ACCESS, AUTOGENOUS GRAFT Left 06/26/2024 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 performed by Benjamin Cartagena MD at OR [facility] COLONOSCOPY, DIAGNOSTIC (RECTUM) N/A 02/19/2023 poor prep/nodular mucosa ascending colon/hemorrhoids/biopsies show adenomatous polyps, mild active inflammation/recall 1 year/Colonoscopy/[place] NONE Social History Socioeconomic History Marital status: [...] Stability Do you currently live in a longterm or have no steady place to sleep [...] of patient's allergies indicates: No Known Allergies No current facility-administered medications for this encounter. REVIEW OF SYSTEMS: Constitutional: (-) fever chills sweats or weight loss Cardiovascular: (-) negative: no chest pain, dyspnea, syncope, or palpitations Pulmonary: (-) negative: no cough, wheezing, or shortness of breath Abdominal/GI: (-) negative: no pain, heartburn, dysphagia, bleeding, change in bowel habits, nauseaor vomiting OBJECTIVE: BP 121/72 | Pulse 71 | Temp 36.3 C (97.3 F) (Temporal Artery) | Resp 18 | Ht 1.753 m (5' 9") | Wt 77.6 kg (171 lb) | SpO2 98% | BMI 25.25 kg/m | BSA 1.94 m PHYSICAL EXAM: Constitutional: no acute distress CV: normal rate and rhythm, no murmur, gallops or rub Chest: normal respiratory effort, lungs clear to auscultation and percussion, breath sounds normal Abdomen: normal: soft, bowel sounds normal, no masses, tenderness or organomegaly LABS: CBC Results: PT INR Results: Results for orders placed or performed in visit on 04/11/24 PT INR Result Value Ref Range Prothrombin Time 13.0 11.6 - 15.2 seconds INR 1.0 0.8 - 1.2 Results for orders placed or performed during the hospital encounter of 06/14/12 PT/INR Result Value Ref Range Prothrombin Time 15.3 (H) 11.2 - 14.2 seconds INR 1.28 (H) 0.85 - 1.16 BUN Results: Lab Results Component Value Date/Time BUN - [facility] 17 04/11/2024 10:31 AM BUN - [facility] 24 (H) 02/02/2024 11:52 AM BUN - [facility] 45 (H) 08/12/2023 02:01 PM BUN - [facility] 48 (H) 10/02/2020 03:48 PM BUN - [facility] 52 (H) 07/01/2020 01:03 PM BUN - [facility] 18 06/17/2012 06:08 AM BUN - [facility] 16 06/16/2012 05:08 AM BUN - [facility] 14 06/15/2012 05:32 AM Creatinine Results: Lab Results Component Value Date/Time CREATININE - [facility] 2.4 (H) 04/11/2024 10:31 [...] Results Component Value Date/Time POTASSIUM - [facility] 4.8 06/26/2024 09:58 AM POTASSIUM - [facility] 3.5 04/11/2024 10:31 AM POTASSIUM - [facility] 4.9 02/02/2024 11:52 AM POTASSIUM - [facility] 5.2 (H) 08/12/2023 02:01 PM POTASSIUM - [facility] 3.9 10/02/2020 03:48 PM POTASSIUM - [facility] 4.4 07/01/2020 01:03 PM POTASSIUM - [facility] 3.2 (L) 06/17/2012 06:08 AM POTASSIUM - [facility] 3.5 06/16/2012 05:08 AM POTASSIUM - [facility] 3.6 06/15/2012 05:32 AM INFORMED CONSENT: Yes PRE-SEDATION ASSESSMENT IMPRESSION/PLAN: Hemocath exchange; fibrin sheath disruption Damion Barber MD documented in this encounter Nursing Notes * Ivy Mackenzie RN - 07/28/2024 5:[address] Barber in to see pt. Suture placed. Site continued to ooze blood. Pressure applied for 20 min. No oozing noted 15 min after pressure was held. Dr. Barber aware. Pt discharged to home with instructions on how to apply pressure if site would ooze again. Pt verbalized an understanding of instructions. * Dinorah Ibarra RN - 07/28/2024 3:53 PM EST 14:43 Dr Barber text re: bleeding from operative site. Manual pressure applied. 15:20 Dr Barber at bedside. Continues manual pressure. 15:[address] Barber. Plans to suture if manual pressure unsuccessful 15:45 site continues to bleed small steady amount Dr Barber text. Pt resting in stretcher quietly, taking po fluids and snack. No complaints voiced when asked. * John Vela RN - 07/28/2024 1:33 PM EST Pt condition was reassessed by Dr. Damion Barber immediately prior to start of moderate sedation and procedure. documented in this encounter OR Notes * OR Surgeon - Damion Barber MD - 07/28/2024 2:52 PM EST Procedure: Tunneled [dialysis] catheter exchange. 08/27/2024 Fibrin sheath venoplasty INDICATION: [Poorly functioning hemo cath. Possible SVC stenosis] ATTENDING (OPERATING PHYSICIAN): [Elisabeth] CONSENT: After a detailed discussion of the procedure, risks, benefits and alternative treatment options, informed consent was obtained. TIME OUT: A time out procedure was performed. The patient's identification was verified. Informed consent with agreement of procedure, site and position was obtained. All necessary equipment was available prior to procedure. CONTRAST: No contrast was administered. COMPLICATIONS: None. ANESTHESIA: [Local lidocaine.] [IV Versed.] [IV Fentanyl.] SEDATION TIME: [[Start to end: [[id number]]. Qualified nurse sedation observer [KWABENA Ragsdale.] MEDICATIONS: See MAR PROCEDURE DESCRIPTION: Initial fluoroscopic examination demonstrates the presence of a right internal jugular hemo cath distal SVC. Lidocaine was used for local anesthesia and the catheter was removed over a wire. When the catheter was partially removed. A venogram was performed demonstrating a fibrin sheath. Balloon angioplasty of the fibrin sheath was performed using a 12 mm balloon. A new 19 cm tip to cuff dialysis catheter was partially inserted reaching the proximal SVC. A venogram was then performed demonstrating resolution of the fibrin sheath. The 14.5 Colombian 19 cm tip to cuff tunneled dialysis catheter was then advanced was placed in the internal jugular access through the tunnel under fluoroscopic guidance. Fluoroscopic images were digitally archived. The catheter was secured and an occlusive dressing was applied. The procedure was performed by Dr. Barber Findings: Fibrin sheath. The catheter tip is in the right atrium. Impression: Successful placement of a tunneled [dialysis] catheter. * Operative Report Brief - Damion Barber MD - 07/28/2024 2:32 PM EST PROCEDURE NOTE - Interventional Radiology [facility]-[address] [address] Name: Tad Silvestre Location: [place] [facility]/[place] Date: 07/28/2024 Time: 2:32 PM PROCEDURE: fibrin sheath disruption. Hemocath crt: Dr. Damion Barber ASSISTANTS: none ANESTHESIA: local conscious sedation COMPLICATIONS: none SPECIMEN: none ESTIMATED BLOOD LOSS: negligible FINDINGS: fibrin sheath. documented in this encounter Miscellaneous Notes * Sedation Note - Damion Barber MD - 07/28/2024 2:35 PM EST Post Sedation Evaluation: Cardiovascular status: acceptable Level of consciousness: awake and alert Airway patency: patent Distress - NAD Hydration status - well hydrated Nausea/vomiting - not present Pain Evaluation Pain Assessment Flowsheet Row Most Recent Value Pain Assessment Scale [facility] Adult Scale 0-10 Pain Score 0 (no pain) Vital Signs: Temp: 36.3 C (97.3 F) (07/28 1229) BP: 115/67 (07/28 1425) Pulse: 65 (07/28 1425) Resp: 16 (07/28 1425) SpO2: 98 % (07/28 1425) I have personally examined the patient, prescribed the necessary medications as charted, and certify that Tad Silvestre is recovered for safe discharge from my face to face care. * Pre-Sedation Assessment - Damion Barber MD - 07/28/2024 1:30 PM EST PRE-SEDATION ASSESSMENT PRE-SEDATION ASSESSMENT: Hemocath Exchange; Svc/Fibrin Venoplasty Level of sedation planned: Moderate Patient's allergies [...] was reevaluated immediately prior to the sedation: 07/28/2024 1:31 PM documented in this encounter Plan of Treatment Upcoming Encounters Date Type Department Care Team (Late st Contact Info) Description 08/22/2024 10:20 AM EST Office Visit Infectious Disease, [address] [address] Shirley Asencio MD [address], [place] [id number] 08/23/2024 10:10 AM EST Office Visit Vascular Surgery, [facility] [address] [place] [address] Simeon Perez MD [address] [place], [place] [phone] 09/19/2024 3:30 PM EST Office Visit Cardiology, [facility] [address] [place] [address] Davy Mota MD [address] [place] [address] 10/13/2024 9:00 AM EST Office Visit Family Practice [facility] [address] [facility] [address] Antonio Colon MD [address] [place] [address] Scheduled Procedures Name Priority Associated Diagnoses Date/Ti [...] Procedure Name Priority Date/Time Associated Diagnosis Comments IR INTERVENTIONAL RADIOLOGY PROCEDURE IN OR Routine 07/28/2024 2:29 PM EST GLUCOSE METER, POINT OF CARE JUDIT 07/28/2024 12:33 PM EST documented in this encounter Results * IR INTERVENTIONAL RADIOLOGY PROCEDURE IN OR (07/28/2024 2:29 PM EST) 07/28/2024 2:54 PM EST Impressions [facility] RAD[facility] - 07/28/2024 2:52 PM EST IMPRESSION: Successful placement of a tunneled dialysis catheter. PLAN: The patient should remain upright with head of bed at least 30 degrees for 4 hours. The catheter may be used immediately. Narrative [facility] RAD[facility]OLOG[facility] - 07/28/2024 2:52 PM EST PROCEDURE: Tunneled dialysis catheter exchange. 08/27/2024 Fibrin sheath venoplasty INDICATION: Poorly functioning hemo cath. Possible SVC stenosis ATTENDING (OPERATING PHYSICIAN): Elisabeth CONSENT: After a [...] was administered. COMPLICATIONS: None. ANESTHESIA: Local lidocaine. IV Versed. IV Fentanyl. SEDATION TIME: Start to end: [id number]. Qualified nurse sedation observer KWABENA White. MEDICATIONS: See MAR PROCEDURE DESCRIPTION: Initial fluoroscopic examination demonstrates the presence of a right internal jugular hemo cath distal SVC. Lidocaine was used for local anesthesia and the catheter was removed over a wire. When the catheter was partially removed. A venogram was performed demonstrating a fibrin sheath. Balloon angioplasty of the fibrin sheath was performed using a 12 mm balloon. A new 19 cm tip to cuff dialysis catheter was partially inserted reaching the proximal SVC. A venogram was then performed demonstrating resolution of the fibrin sheath. The 14.5 [place]ian 19 cm tip to cuff tunneled dialysis catheter was then advanced was placed in the internal jugular access through the tunnel under fluoroscopic guidance. Fluoroscopic images were digitally archived. The catheter was secured and an occlusive dressing was applied. The procedure was performed by Dr. Barber FINDINGS: Fibrin sheath. The catheter tip is in the right atrium. Procedure Note Damion Barber MD - 07/28/2024 PROCEDURE: Tunneled dialysis catheter exchange. 08/27/2024 Fibrin sheath venoplasty INDICATION: Poorly functioning hemo cath. Possible SVC stenosis ATTENDING (OPERATING PHYSICIAN): Elisabeth CONSENT: After a detailed discussion of the procedure, risks, benefits andalternative treatment options, informed consent was obtained. TIME OUT: A time out procedure was performed. The patient's identificationwas verified. Informed consent with agreement of procedure, site andposition was obtained. All necessary equipment was available prior toprocedure. CONTRAST: No contrast was administered. COMPLICATIONS: None. ANESTHESIA: Local lidocaine. IV Versed. IV Fentanyl. SEDATION TIME: Start to end: [id number]. Qualified nurse sedation KWABENA Haro. MEDICATIONS: See MAR PROCEDURE DESCRIPTION: Initial fluoroscopic examination demonstrates thepresence of a right internal jugular hemo cath distal SVC. Lidocaine wasused for local anesthesia and the catheter was removed over a wire. Whenthe catheter was partially removed. A venogram was performeddemonstrating a fibrin sheath. Balloon angioplasty of the fibrin sheathwas performed using a 12 mm balloon. A new 19 cm tip to cuff dialysiscatheter was partially inserted reaching the proximal SVC. A venogram wasthen performed demonstrating resolution of the fibrin sheath. The 14.5French 19 cm tip to cuff tunneled dialysis catheter was then advanced wasplaced in the internal jugular access through the tunnel underfluoroscopic guidance. Fluoroscopic images were digitally archived. Thecatheter was secured and an occlusive dressing was applied. The procedure was performed by Dr. Barber FINDINGS: Fibrin sheath. The catheter tip is in the right atrium. IMPRESSION IMPRESSION: Successful placement of a tunneled dialysis catheter. PLAN: The patient should remain upright with head of bed at least 30degrees for 4 hours. The catheter may be used immediately. us Damion Barber MD RAD SPECIAL PROCEDURES Final Res ult [facility] * (ABNORMAL) GLUCOSE METER, POINT OF CARE (07/28/2024 12:33 PM EST) GLUCOSE - POCT 301(H) 70 - 120 mg/dL 07/28/2024 12:36 PM EST [facility] Blood Whole blood specimen / Unknown 07/28/2024 12:33 PM EST 07/28/2024 12:36 PM EST Damion Barber MD LAB POINT OF CARE TE ST DOCKED DEVICE UNSOLICITED RESULTS Final Result [facility] [address] [facility] [place] [address] documented in this encounter Administered Medications Inactive Administered Medications - up to 3 most recent administrations Medication Order MAR Action Action Date Dose Rate Site hEParin 1000 UNIT/ML inj 5,000 Units 5,000 Units, IV Push, ONCE, On Wed07/28/24 at 1445, For 1 dose Given 07/28/2024 2:45 PM EST 5,000 Units documented in this encounter Active and Recently Administered Medications Times are shown in EST. Scheduled Medication Order 07/26/2024 07/27/2024 07/28/2024 hEParin 1000 UNIT/ML inj 5,000 Units (COMPLETED) 5,000 Units, IV Push, ONCE, On Wed07/28/24 at 1445, For 1 dose 1445 (Given - Provid er: Daily White RN) PRN Medication Order 07/26/2024 07/27/2024 07/28/2024 buffered lidocaine 1 % inj (CANCELED) ONCE PRN INTRA PROCEDURE, Starting on Wed07/28/24 at 1417, Until Wed07/28/24 at 1429, Intra-Op 1417 (Given - Provid er: Damion Barber MD) fentaNYL (PF) inj (CANCELED) ONCE PRN INTRA PROCEDURE, Starting on Wed07/28/24 at 1401, Until Wed07/28/24 at 1429, Intra-Op 1401 (Given - Provid er: Daily White RN)1411 (Given - Provider: Daily White RN) Ioversol (Optiray 320) inj (CANCELED) ONCE PRN INTRA PROCEDURE, Starting on Wed07/28/24 at 1418, Until Wed07/28/24 at 1429, Intra-Op 1418 (Given - Provid er: Damion Barber MD) midazolam (Versed) 2 MG/2ML inj (CANCELED) ONCE PRN INTRA PROCEDURE, Starting on Wed07/28/24 at 1402, Until Wed07/28/24 at 1429, Intra-Op 1402 (Given - Provid er: Daily White RN) sodium citrate 4% (Anticoagulant Sodium Citrate) inj (CANCELED) ONCE PRN INTRA PROCEDURE, Starting on Wed07/28/24 at 1417, Until Wed07/28/24 at 1429, Intra-Op 1417 (Given - Provid er: Damion Barber MD)1418 (Given - Provider: Damion Barber MD) documented in this encounter Advance Directives * Full Code (Latest Code Status on File) Date Activated Date Inactivated Comments 06/14/2012 6:26 PM 06/17/2012 7:43 PM This order r eflects the patients wishes and were consensually agreed upon. Healthcare Agents on File Name Relationship Healthcare Agent Relationshi p Communication Lorin Silvestre [facility] Repr esentative (appointed verbally by patient or by statute hierarchy) Care Teams Product Development Manager Relationship Specialty Start Date End Date Antonio Colon MD [address] [place] [id number] PCP - General Family Medicine 02/12/22 documented as of this encounter
--- OUTSIDE RECORDS SUMMARY | 2024-09-21 08:06 | External Medical Summary | Summary of Care ---
Author Name Unknown Organization [facility] Address [address] [place] [address] Phone [phone] Care Team Providers Care Scale Reclamation Tender Name Role Phone Antonio Colon MD Primary Care Provider [phone] Reason for Visit * Reason Onset Date Comments Scheduling 07/26/2024 Encounter Details Date Type Department Care Team (Late st Contact Info) Description 07/26/2024 Telephone NephrologyMadeline [address] [place] [address] Tesfaye Morris MD [address] [place] [address] Scheduling Allergies No known active allergiesdocumented as [...] Additional Information Patient taking differently: 10 UnitsSubcutaneous [id number], Reported on 05/08/2024 Metoprolol Succinate ER 25 MG Oral Tablet Extended Release 24 Hour (toPROL XL)Indications: Coronary artery disease involving [place] coronary artery of [place] heart without angina pectoris TAKE 1 TABLET BY MOUTH EVERY DAY IN THE MORNING 90 Tablet 3 10/05/19 24 Active Prasugrel HCl 10 MG Oral Tablet (Effient)Indica tions:Coronary artery disease involving [place] coronary artery of [place] heart without angina pectoris TAKE 1 TABLET [...] 90 Tablet 3 12/01/19 24 Active Pen [place] 32G X 4 MM Use as directed. [...] 3 03/24/20 24 Active FreeStyle Carlos 2 [place] DeviceIndicatio ns:Type 2 diabetes mellitus with hemoglobin A1c goal of less than 8.0% ([facility]) Use as directed. Use to test BG E10.65 1 Each 04/11/20 24 Active FreeStyle Carlos 2 SensorIndicatio ns:Type 2 diabetes mellitus with hemoglobin A1c goal of less than 8.0% ([facility]) Use as directed. Use one sensor every 14 days for blood sugar E10.65 1 Each 04/11/20 24 Active Fiasp FlexTouch 100 UNIT/ML Subcutaneous Solution Pen-injector (Insulin Aspart (w/Niacinamide) )Indications:Ty pe 2 diabetes mellitus with hemoglobin A1c goal of less than 8.0% ([facility]) Inject 10 Units under the skin in the morning and 10 Units at noon and 10 Units before bedtime. With meals. 15 mL 3 4 10:53 AM EDT 04/26/20 24 Active Hospital, Clinic, or Other Facility Administered Medication Ordered Dose Route Frequency Start Date End Date Status Albuterol Sulfate (Proventil) (2.5 MG/3ML) 0.083% inhalation solution 2.5 mgIndications:ESRD on dialysis ([facility]),Pre-transplant evaluation for ESRD (end stage renal disease) 2.5 mg NEBULIZER PRN 03/24/2024 Acti ve Albuterol Sulfate (Proventil) (5 MG/ML) 0.5% *conc* inhalation solution 2.5 mgIndications:ESRD on dialysis ([facility]),Pre-transplant evaluation for ESRD (end stage renal [...] Dyslipidemia 05/02/2022 Coronary artery disease invo lving [place] coronary artery of [place] heart without angina pectoris 05/02/2022 Type 2 [...] encounter Miscellaneous Notes * Telephone Encounter - Lorelei Valenzuela OSA - 07/26/2024 8:44 AM EST Called patient to schedule Tunneled Dialysis Catheter Insertion. No answer. Left message for patient to return call. documented in this encounter Plan of Treatment Upcoming Encounters Date Type Department Care Team (Late st Contact Info) Description 08/22/2024 10:20 AM EST Office Visit Infectious Disease, [address] [phone] Shirley Asencio MD [address], [place] [id number] 08/23/2024 10:10 AM EST Office Visit Vascular Surgery, [facility] [address] [place] [address] Simeon Perez MD [address] [place], [place] [id number] 09/19/2024 3:30 PM EST Office Visit Cardiology, [facility] 132 [place] [address] Davy Mota MD [address] [place] [address] 10/13/2024 9:00 AM EST Office Visit Family Practice [facility] [address] [place] [address] Antonio Colon MD [address] [place] [address] Scheduled Procedures Name Priority Associated Diagnoses Date/Ti [...] Healthcare Agent Relationshi p Communication Lorin Silvestre [facility] Health Care Repr esentative (appointed verbally by patient or by statute hierarchy) Care Teams Scale Reclamation Tender Relationship Specialty Start Date End Date Antonio Colon MD [address] [place] [address] PCP - General Family Medicine 02/12/22 documented as of this encounter
--- OUTSIDE RECORDS SUMMARY | 2024-09-21 08:06 | External Medical Summary | Summary of Care ---
Author Name Unknown Organization [facility] Address [address] [place] [address] Phone [phone] Care Team Providers Care Automotive General Manager Name Role Phone Antonio Colon MD Primary Care Provider [phone] Reason for Visit * Reason Onset Date Comments Scheduling 07/26/2024 Encounter Details Date Type Department Care Team (Late st Contact Info) Description 07/26/2024 Telephone NephrologyMadeline [address] [facility] [place] [address] Tesfaye Morris MD [address] [facility] [place] [address] Scheduling Allergies No known active allergiesdocumented as [...] Additional Information Patient taking differently: 10 UnitsSubcutaneous [id number], Reported on 05/08/2024 Metoprolol Succinate ER 25 MG Oral Tablet Extended Release 24 Hour (toPROL XL)Indications: Coronary artery disease involving [place] coronary artery of [place] heart without angina pectoris TAKE 1 TABLET BY MOUTH EVERY DAY IN THE MORNING 90 Tablet 3 10/05/19 24 Active Prasugrel HCl 10 MG Oral Tablet (Effient)Indica tions:Coronary artery disease involving [place] coronary artery of [place] heart without angina pectoris TAKE 1 TABLET [...] 90 Tablet 3 12/01/19 24 Active Pen [place] 32G X 4 MM Use as directed. [...] 3 03/24/20 24 Active FreeStyle Carlos 2 [place] DeviceIndicatio ns:Type 2 diabetes mellitus with hemoglobin [...] 0.083% inhalation solution 2.5 mgIndications:ESRD on dialysis ([facility]),Pre-transplant evaluation for ESRD (end stage renal disease) 2.5 mg NEBULIZER PRN 03/24/2024 Acti ve Albuterol Sulfate (Proventil) (5 MG/ML) 0.5% *conc* inhalation solution 2.5 mgIndications:ESRD on dialysis ([facility]),Pre-transplant evaluation for ESRD (end stage renal disease) [...] Dyslipidemia 05/02/2022 Coronary artery disease invo lving [place] coronary artery of [place] heart without angina pectoris 05/02/2022 Type 2 [...] to schedule on 07/28, time TBD by [facility] . Pt instructed to hold antidiabetics the [...] and stop drinking 2 hoursprior to procedure. -Analytics Senior Manager required Location and check-in instructions Verbalizes understanding [...] 10:20 AM EST Office Visit Infectious Disease, [address] [address] Shirley Asencio MD [address] [place] [address] 08/23/2024 10:10 AM EST Office Visit Vascular Surgery, [facility] [address] [place] [address] Simeon Perez MD [address] [place] [address] 09/19/2024 3:30 PM EST Office Visit Cardiology, [facility] [address] [place] [address] Davy Mota MD 132 [place] [address] 10/13/2024 9:00 AM EST Office Visit Family Practice [facility] [address] [facility] [address] Antonio Colon MD 132 [place] [address] Scheduled Procedures Name Priority Associated Diagnoses Date/Ti [...] Healthcare Agent Relationshi p Communication Lorin Konrad [facility] Care Repr esentative (appointed verbally by patient or by statute hierarchy) Care Teams Automotive General Manager Relationship Specialty Start Date End Date Antonio Colon MD [address] [place] [address] PCP - General Family Medicine 02/12/22 documented as of this encounter
--- OUTSIDE RECORDS SUMMARY | 2024-09-21 08:06 | External Medical Summary | Summary of Care ---
Author Name Unknown Organization [facility] Address [address] [place] [address] Phone [phone] Care Team Providers Care Piano Instructor Name Role Phone Antonio Colon MD Primary Care Provider [phone] Reason for Visit * Reason Onset Date Comments Pre-Transplant Evaluation 08/01/2024 Encounter Details Date Type Department Care Team (Late st Contact Info) Description 08/01/2024 Telephone Transplant Clinic, [place] [address] [id number] Agnieszka [place]ellan, [place] [address] Pre-Transplant Evaluation Allergies No known active allergiesdocumented as of [...] Hour (toPROL XL)Indications:Co ronary artery disease involving [place] coronary artery of [place] heart without angina pectoris TAKE 1 TABLET BY MOUTH EVERY DAY IN THE MORNING 90 Tablet 3 4 Active Prasugrel HCl 10 MG Oral Tablet (Effient)Indicati ons:Coronary artery disease involving [place] coronary artery of [place] heart without angina pectoris TAKE 1 TABLET BY MOUTH EVERY DAY IN THE MORNING 90 Tablet 3 4 Active Atorvastatin Calcium 40 MG Oral Tablet (Lipitor)Indicati ons:Dyslipidemia, goal LDL below 70 TAKE 1 TABLET BY MOUTH EVERY DAY IN THE MORNING 90 Tablet 3 4 Active Juluca 50-25 MG Oral Tablet Take 1 Tablet by mouth daily. 90 Tablet 3 4 Active Pen [place] 32G X 4 MM Use as directed. [...] Tablet 3 4 Active FreeStyle Carlos 2 [place] DeviceIndications :Type 2 diabetes mellitus with hemoglobin A1c goal of less than 8.0% (HCC) Use as directed. Use to test BG E10.65 1 Each 4 Active FreeStyle Carols 2 SensorIndications :Type 2 diabetes mellitus with [...] Dyslipidemia 05/02/2022 Coronary artery disease invo lving [place] coronary artery of [place] heart without angina pectoris 05/02/2022 Type 2 diabetes mellitus wit h hemoglobin A1c goal of less than 8.0% 05/02/2022 [place] (myocardial infarction) 05/02/2022 Chronic systolic (congestive) heart [...] No 01/18/2024 Does the household have a presbyterian hospitallar source of income? (Household - for [...] encounter Miscellaneous Notes * Telephone Encounter - Agnieszka Capellan RN - 08/01/2024 11:23 AM EST Call placed to patient review current needs prior to renal listing consideration: 1) Note from Елена Alford PA-C (who works with Dr. Davy Mota, Cardiology at [facility]), stress test and echo revealed no ischemia, no further testing needed at this time. 2) ID Clearance, appt with Dr. Chavez is 08/22/24 3) Pathology from Dr. Jane at [facility] 4) Colonoscopy at [facility] done 02-19-23 recommended a one year repeat Voicemail left with phone number for patient to return call with any questions or updates. Agnieszka Capellan RN 11:26 AM documented in this encounter Plan of Treatment Upcoming Encounters Date Type Department Care Team (Late st Contact Info) Description 08/22/2024 10:20 AM EST Office Visit Infectious Disease, [address] [address] Shirley Asencio MD [address] [place], [place] [phone] 08/23/2024 10:10 AM EST Office Visit Vascular Surgery, [facility] [address] [place] [address] Simeon Perez MD [address] [place] [address] 09/19/2024 3:30 PM EST Office Visit Cardiology, [facility] 132 [facility] [place] [address] Davy Mota MD [address] [facility] [place] [address] 10/13/2024 9:00 AM EST Office Visit Family Practice [facility] [address] [facility] [place] [address] Antonio Colon MD [address] [place] [address] Scheduled Procedures Name Priority Associated Diagnoses Date/Ti [...] 05/07/2023, Additional history exists Colonoscopy 01/06/2025 01/07/2024, 0605/2023, [...] Healthcare Agent Relationshi p Communication Lorin Silvestre [facility] Health Care Repr esentative (appointed verbally by patient or by statute hierarchy) Care Teams Piano Instructor Relationship Specialty Start Date End Date Antonio Colon MD [address] [place] [address] PCP - General Family Medicine 02/12/22 documented as of this encounter
--- OUTSIDE RECORDS SUMMARY | 2024-09-21 08:07 | External Medical Summary | Summary of Care ---
Author Name Unknown Organization [facility] Address [address] [place] [address] Phone [phone] Care Team Providers Care Clerk Manager Name Role Phone Antonio Colon MD Primary Care Provider [phone] [phone] Reason for Visit * Reason Onset Date Comments case management 06/29/2024 Appt Encounter Details Date Type Department Care Team (Late st Contact Info) Description 06/29/2024 Telephone Infectious Disease Treatment, [place] [address] [place] [address] Gerri Rodriguez, BRUSH SANDER case management (Appt) Allergies No known active allergiesdocumented as of this encounter (statuses as of 06/29/2024) Medications Medication Sig Dispensed Refills Start Date [...] THE MORNING. 30 mL 1 04/29/2023 Active Additional Information Patient taking differently: 10 UnitsSubcutaneous [id number], Reported on 05/08/2024 Metoprolol Succinate ER 25 MG Oral Tablet Extended Release 24 Hour (toPROL XL)Indications:Co ronary artery disease involving [place] coronary artery of [place] heart without angina pectoris TAKE 1 TABLET BY MOUTH EVERY DAY IN THE MORNING 90 Tablet 3 10/05/2023 Active Prasugrel HCl 10 MG Oral Tablet (Effient)Indicati ons:Coronary artery disease involving [place] coronary artery of [place] heart without angina pectoris TAKE 1 TABLET BY MOUTH EVERY DAY IN THE MORNING 90 Tablet 3 10/05/2023 Active Atorvastatin Calcium 40 MG Oral Tablet (Lipitor)Indicati ons:Dyslipidemia, goal LDL below 70 TAKE 1 TABLET BY MOUTH EVERY DAY IN THE MORNING 90 Tablet 3 10/06/2023 Active Juluca 50-25 MG Oral Tablet Take 1 Tablet by mouth daily. 90 Tablet 3 12/01/2023 Active Pen [place] 32G X 4 MM Use as directed. Use to inject insulin 4 times daily E11.9 400 Each 3 12/02/2023 Active Sevelamer Carbonate 800 MG Oral Tablet (Renvela) Take 1 Tablet by mouth in the morning and 1 Tablet at noon and 1 Tablet in the evening. Take with meals. 02/08/2024 Active FLUoxetine HCl 20 MG Oral Capsule (PROzac)Indicatio ns:ST elevation (STEMI) myocardial infarction involving left circumflex coronary artery (HCC) TAKE 1 CAPSULE BY MOUTH EVERY DAY 90 Capsule 3 03/03/2024 Active Levothyroxine Sodium 25 MCG Oral Tablet (Levoxyl) Take 1 Tablet by mouth daily first thing in the morning. 90 Tablet 3 03/24/2024 Active NIFEdipine ER Osmotic Release 30 MG Oral Tablet Extended Release 24 Hour (Procardia XL) Take 1 Tablet by mouth in the morning. In the morning.. 90 Tablet 3 03/24/2024 Active Pantoprazole Sodium 40 MG Oral Tablet Delayed Release (Protonix) Take 1 Tablet by mouth in the morning. 90 Tablet 3 03/24/2024 Active FreeStyle Carlos 2 [place] DeviceIndications :Type 2 diabetes mellitus with hemoglobin A1c goal of less than 8.0% (HCC) Use as directed. Use to test BG E10.65 1 Each 04/11/2024 Active FreeStyle Carlos 2 SensorIndications :Type 2 diabetes mellitus with hemoglobin A1c goal of less than 8.0% (HCC) Use as directed. Use one sensor every 14 days for blood sugar E10.65 1 Each 04/11/2024 Active Fiasp FlexTouch 100 UNIT/ML Subcutaneous Solution Pen-injector (Insulin Aspart (w/Niacinamide))I ndications:Type 2 diabetes mellitus with hemoglobin A1c goal of less than 8.0% ([facility]) Inject 10 Units under the skin in the morning and 10 Units at noon and 10 Units before bedtime. With meals. 15 mL 3 04/26/2024 Active Hospital, Clinic, or Other Facility Administered Medication Ordered Dose Route Frequency Start Date End Date Status Albuterol Sulfate (Proventil) (2.5 MG/3ML) 0.083% inhalation solution 2.5 mgIndications:ESRD on dialysis ([facility]),Pre-transplant evaluation for ESRD (end stage renal disease) 2.5 mg NEBULIZER PRN 03/24/2024 Acti ve Albuterol Sulfate (Proventil) (5 MG/ML) 0.5% *conc* inhalation solution 2.5 mgIndications:ESRD on dialysis ([facility]),Pre-transplant evaluation for ESRD (end stage renal disease) 2.5 mg NEBULIZER PRN 03/24/2024 Acti ve documented as of this encounter (statuses as of 06/29/2024) Active Problems Problem Noted Date Diagnosed Date ESRD on dialysis 02/02/2024 History of GI bleed 02/02/2024 Overview: Duodenal ulcer Duodenal ulcer 02/02/2024 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 05/07/2023 Recurrent major depressive disorder, in full rem ission 05/05/2022 Overweight (BMI 25.0-29.9) 05/02/2022 Dyslipidemia 05/02/2022 Coronary artery disease invo lving [place] coronary artery of [place] heart without angina pectoris 05/02/2022 Type 2 diabetes mellitus wit h hemoglobin A1c goal of less than 8.0% 05/02/2022 [place] (myocardial infarction) 05/02/2022 Chronic systolic (congestive) heart failure 04/14 Left bundle branch block 05/02/2022 HTN, goal below 130/80 HIV positive documented as of this encounter (statuses as of 06/29/2024) Resolved Problems Problem Noted Date Diagnosed Date Resolved Date Chronic heart failure with p reserved ejection fraction 11/24/2022 02/04/2023 Kidney disease, chronic, sta ge IV (GFR 15-29 ml/min) 05/02/2022 02/02/2024 ARDS (adult respiratory distress syndrome) 06/17/2012 05/02/2022 Acute pancreatitis 06/14/2012 Acute respiratory distress 06/14/2012 0 05/02/2022 documented as of this encounter (statuses as of 06/29/2024) Immunizations Name Administration Dates Next Due COVID-19 mRNA, LNP-s, No Pre serve, 2-Dose Series (Moderna) 11/27/2020,10/24/2020 COVID-19, MRNA-LNP, 23-24, P F, 50 MCG/0.5 mL, 12 YRS AND ABOVE, IM (MODERNA-Spikevax) 08/05/2021 Covid-19, Mrna, Lnp-s, Pf, B ivalent, 30 Mcg, IM, 12 yrs and above (EverySignal) 09/09/2022 Hepatitis B, 20+ yrs 08/25/2017 Meningococcal [...] Telephone Encounter - Gerri Rodriguez MSW - 06/29/2024 2:10 PM EDT Pt last seen in clinic 11/2023. Last attempt to contact 01/2024. CM routing encounter to [facility] to reach out to pt to discuss scheduling f/up with Dr. Asencio. Time Spent: 15 minutes documented in this encounter Plan of Treatment Upcoming Encounters Date Type Department Care Team (Late st Contact Info) Description 07/04/2024 2:00 PM EDT Office Visit Gastroenterology, [facility] 132 [place] [address] Erna Srivastava CRNP 132 [facility] [place] [address] 07/19/2024 12:50 PM EST Office Visit Vascular Surgery, [facility] 132 [place] [address] Benjamin Cartagena MD [address] [place] [address] 09/19/2024 3:30 PM EST Office Visit Cardiology, [facility] [address] [place] [address] Davy Mota MD 132 [facility] [place] [address] 10/13/2024 9:00 AM EST Office Visit Family Practice [facility] [address] [place] [address] Antonio Colon MD [address] [facility] [address] Scheduled Procedures Name Priority Associated Diagnoses Date/Ti [...] Healthcare Agent Relationshi p Communication Lorin Silvestre [facility] Health Care Repr esentative (appointed verbally by patient or by statute hierarchy) Care Teams Clerk Manager Relationship Specialty Start Date End Date Antonio Colon MD [address] [place] [address] PCP - General Family Medicine 02/12/22 documented as of this encounter
--- OUTSIDE RECORDS SUMMARY | 2024-09-21 08:07 | External Medical Summary | Summary of Care ---
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 Name Role Phone Antonio Colon MD Primary Care Provider [phone] Reason for Visit * Auth/Cert Specialty Diagnoses / Procedures Referred By Marques t Referred To Contact Diagnoses ESRD on dialysis (HCC) ESRD on dialysis (HCC) [N18.6, Z99.2] Procedures AV ACCESS, AUTOGENOUS GRAFT 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 Benjamin Cartagena MD [address] [place] [address] Or Ip [facility] [address] [place] [address] Referral ID Status Reason Start Date Expiration Date Visits Re quested Visits Authorized [id number] Encounter Details Date Type Department Care Team (Latest Contact Info) Description 06/26/2024 8:13 AM EDT - 06/26/2024 1:59 PM EDT Hospital Encounter [facility], OPERATING ROOM [facility], SATYA MANUEL [address] [place] [address] Benjamin Cartagena MD [address] [place] [address] Discharge Disposition: Home - Self Care Allergies No known active allergiesdocumented as of this encounter (statuses as of 06/27/2024) Medications Medication Sig Dispensed Refills Start Date [...] Additional Information Patient taking differently: 10 UnitsSubcutaneous [id number], Reported on 05/08/2024 Metoprolol Succinate ER 25 MG Oral Tablet Extended Release 24 Hour (toPROL XL)Indications:Co ronary artery disease involving tununak coronary artery of [place] heart without angina pectoris TAKE 1 TABLET BY MOUTH EVERY DAY IN THE MORNING 90 Tablet 3 10/05/2023 Active Prasugrel HCl 10 MG Oral Tablet (Effient)Indicati ons:Coronary artery disease involving [place] coronary artery of [place] heart without angina pectoris TAKE 1 TABLET BY MOUTH EVERY DAY IN THE MORNING 90 Tablet 3 10/05/2023 Active Atorvastatin Calcium 40 MG Oral Tablet (Lipitor)Indicati ons:Dyslipidemia, goal LDL below 70 TAKE 1 TABLET BY MOUTH EVERY DAY IN THE MORNING 90 Tablet 3 10/06/2023 Active Juluca 50-25 MG Oral Tablet Take 1 Tablet by mouth daily. 90 Tablet 3 12/01/2023 Active Pen Mcbh [place] 32G X 4 MM Use as directed. [...] Tablet 3 03/24/2024 Active FreeStyle Carlos 2 [place] DeviceIndications :Type 2 diabetes mellitus with hemoglobin [...] With meals. 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 05/07/2023 Recurrent major depressive disorder, in full rem ission 05/05/2022 Overweight (BMI 25.0-29.9) 05/02/2022 Dyslipidemia 05/02/2022 Coronary artery disease invo lving tununak coronary artery of tunun[place] heart without angina pectoris 05/02/2022 Type 2 diabetes mellitus wit h hemoglobin A1c goal of less than 8.0% 05/02/2022 Old HI (myocardial infarction) 05/02/2022 Chronic systolic (congestive) heart failure 04/14 Left bundle branch block 05/02/2022 HTN, goal below 130/80 HIV positive documented as of this encounter (statuses as of 06/27/2024) Resolved Problems Problem Noted Date Diagnosed Date Resolved Date Chronic heart failure with p reserved ejection fraction 11/24/2022 02/04/2023 Kidney disease, chronic, sta ge IV (GFR 15-29 ml/min) 05/02/2022 02/02/2024 ARDS (adult respiratory distress syndrome) 06/17/2012 05/02/2022 Acute pancreatitis 06/14/2012 Acute respiratory distress 06/14/2012 0 05/02/2022 documented as of this encounter (statuses as of 06/27/2024) Immunizations Name Administration Dates Next Due COVID-19 mRNA, LNP-s, No Pre serve, 2-Dose Series (Moderna) 11/27/2020,10/24/2020 COVID-19, MRNA-LNP, 23-24, P F, 50 MCG/0.5 mL, 12 YRS AND ABOVE, IM (MODERNA-Spikevax) 08/05/2021 Covid-19, Mrna, Lnp-s, Pf, B ivalent, 30 Mcg, IM, 12 yrs and above (Quotefish) 09/09/2022 Hepatitis B, 20+ yrs 08/25/2017 Meningococcal [...] 01/18/2024 Does the household have a re lar source of income? (Household - for ages [...] Sign Reading Time Taken Comments Blood Pressure 122/76 06/26/2024 1:30 PM EDT Pulse 63 06/26/2024 1:30 PM EDT Temperature 36.1 C (97 F) 06/26/2024 1:00 PM EDT Respiratory Rate 15 06/26/2024 1:30 PM EDT Oxygen Saturation 98% 06/26/2024 1:30 PM EDT Inhaled Oxygen Concentration - - Weight 76.6 kg (168 lb 12.8 oz) 06/26/2024 8:23 AM EDT Height 175.3 cm (5' 9") 06/26/2024 8:23 AM EDT Body Mass Index 24.93 06/26/2024 8:23 AM EDT documented in this encounter Discharge Summaries * David Mcghee MD - 06/26/2024 12:39 PM EDT [address] [address] OUTPATIENT SURGERY DISCHARGE SUMMARY NOTE Name: Tad Silvestre Location: OR [facility]/OR Date: 06/26/2024 Time: 12:39 PM Date and Time of Procedure: 06/26/2024 at 12:39 PM Surgery Date: 06/26/2024 Procedure(s): 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 (Left) Surgeon: Benjamin Cartagena MD Discharge Diagnosis: ESRD on dialysis (HCC) After examination of this patient, I have determined he is ready for discharge to home when the patient meets criteria. Discharge instructions were given to the patient. David Mcghee MD Vascular Surgery Fellow 06/26/2024 12:39 PM documented in this encounter Discharge Instructions * Discharge Instr - AVS* David Mcghee MD - 06/26/2024 12:39 PM EDT Discharge Date: 06/26/2024 You may call Benjamin Cartagena MD of the department of Vascular Surgery at the [facility] office in [place] [phone] option 2. After business hours, you may call with emergency questions to [phone] and ask that the on-call Vascular Surgery provider be paged. The information below provides you with the instructions and the list of medications you need to betaking following discharge from the hospital. If you have any questions, please ask before leaving.Please carry this letter with you when you see your doctor in the clinic. If you have questions, you can reach us at the numbers above. Brief summary of your inpatient care: AV fistula creation Your primary diagnosis at discharge was ESRD. Your doctors during this hospitalization included: Benjamin Cartagena MD Inpatient test results pending: None Complications: none applicable Advance Directive Documented: Advance Directive Does the Patient have an Advance Directive? No SUPPLEMENTAL INSTRUCTIONS: Patient Instructions It is normal to have swelling in the surgical area. To help control this swelling you can elevate your arm on a pillow (although, you should not do this if it causes you increased discomfort in your hand). The fistula or graft cannot be used until the MD has given approval. Generally, a graft will be ready to use in 2 weeks, and a fistula will be ready to use in 6-8 weeks If you go home with bandages on your incision, please remove the bandages 2 days after your surgery. All incisions are closed with sutures (stitches), which either dissolve or are removed by a member of your health care team 14-21 days after surgery. Thin adhesive strips may be placed across incisions to help hold them together. The strips normallywill loosen and come off on their own in a few weeks. Do not remove the strips for at least two weeks after surgery. Avoid lifting more than 5-10 pounds with the affected extremity for two weeks following the procedure. You may shower, wash and dry the incision. Do not immerse the incision in water - this includes swimming, hot tubs or bath tubs. You may drive when you no longer are taking narcotic pain medications and you feel you can quickly respond to situations that will not place others in jeopardy. Monitor the incision for signs and symptoms of infection, including redness, drainage or increased pain. If you develop a fever, contact [phone] to schedule an evaluation. It is important that you notify our office if you are having numbness and significant pain in the extremity in which you have just had surgery. Care of the new fistula In order for dialysis personnel to use the fistula it must dilate or enlarge to a size that will accommodate large bore needles. This is best achieved by the patient exercising the access arm. You, the patient, should start learning how to care for your access immediately after surgery by followingthe protocol below. Step 1 Keep arm elevated (above your heart) starting immediately after surgery and for the next 1-2 weeks or until the swelling is diminished. Wiggle your fingers and clinch your fist 10 times every hour, while awake, for the first 5-7 days. Also, bend and straighten at the elbow to regain normal range ofmotion. These exercises are designed to promote circulation in the fingers and aid in draining awaythe excess fluid accumulation in the immediate area. If numbness is present, sensation will return sooner if the exercises are done as prescribed. If symptoms of numbness, tingling, weakness, and or coldness persist, without improvement, a returnvisit to your surgeon is warranted as soon as possible as this can be a sign of a more serious problem. Step 2 Exercising your arm before and after surgery may encourage a fistulas development and maturation. Some physicians believe exercising the fistula helps it strengthen and develop. Once mature, a fistula is easier for the dialysis staff to stick for your treatment. Below is an exercise technique that may be used to help develop your fistula. Ball Squeeze As soon as the pain from surgery has subsided, start forearm exercises by squeezing a rolled-up washcloth or a stress ball. Squeeze, and release rapidly for 10 minutes, 6 times a day. Step 3 Each day, using your opposite hand, feel over fistula for the thrill or vibration that is normally present. Also bring your access arm up to your ear and you may be able to hear the bruitor buzzing-the rushing ocean sound. If either one of these are not present, call the dialysis unit for instructions. This is a sign that your fistula is about to clot or already has clotted and requires medical attention. Healthcare personnel: 1. Avoid blood draws or IV starts in the access arm. 2. Avoid blood pressure readings in the access arm. 3. Avoid use of tourniquets or other pressure holding devices after needle removal when your fistula is brand new (i.e. in the first 6 weeks). Manual pressure is best, preferably by the patient. The patient (you) should : Avoid wearing tight constrictive clothing over that arm. Avoid wearing jewelry that is tight, such as a watch on the access arm. Avoid carrying heavy objects. Avoid purse straps over the fistula. Avoid sleeping on the arm or keeping it bent for extended periods of time. See your primary care physician (Antonio Colon MD) as scheduled. For routine questions, your [facility] Vascular Surgery Team prefers the use of [employer]ibi[employer]. WibiData is an online internet tool to help you meet your health care needs quickly by providing a secure, confidential way to view your health records and communicate with your [facility] Vascular SurgeryTeam. To sign up for Wibi[employer] go to [email or web address], "Click" [place] Now on the right side of the screen and complete the user registration information. HOW TO QUIT SMOKING Smoking is one of the hardest habits to break. About half of all those who have ever smoked have been able to quit, and most of those (about 70%) who still smoke want to quit. Here are some of the best ways to stop smoking. KEEP TRYING: It takes most smokers about 8 tries before they are finally able to fully quit. So, the more often you try and fail, the better your chance of quitting the next time! So, don't give up! GO COLD TURKEY: Most ex-smokers quit cold turkey. Trying to cut back gradually doesn't seem to work as well, perhaps because it continues the smoking habit. Also, it is possible to fool yourself by inhaling more while smoking fewer cigarettes. This results in the same amount of nicotine in your body! GET SUPPORT: Support programs can make an important difference, especially for the heavy smoker. These groups offer lectures, methods to change your behavior and peer support. Call the free national Quitline for more information. 876-YXKL-KLT (576-499-7650). Low-cost or free programs are offered by many hospitals, local chapters of the [place] [employer] (184-812-1759) and the [place] [employer] (281-927-0360). Support at home is important too. Non-smokers can help by offering praise and encouragement. If the smoker fails to quit, encourage them to try again! TACO-THQ-LFTZWKB MEDICINES: For those who can't quit on their own, Nicotine Replacement Therapy (NRT) may make quitting much easier. Certain aids such as the nicotine patch, gum and lozenge are available without a prescription.However, it is best to use these under the guidance of your doctor. The skin patch provides a steady supply of nicotine to the body. Nicotine gum and lozenge gives temporary bursts of low levels of nicotine. Both methods take the edge off the craving for cigarettes. WARNING: If you feel symptoms ofnicotine overdose, such as nausea, vomiting, dizziness, weakness, or fast heartbeat, stop using these and see your doctor. PRESCRIPTION MEDICINES: After evaluating your smoking patterns and prior attempts at quitting, your doctor may offer a prescription medicine. Each has its unique advantage and side effects which your doctor can review with you. HEALTH BENEFITS OF QUITTING: The benefits of quitting start right away and keep improving the longer you go without smoking: -20 minutes: blood pressure and pulse return to normal -8 hours: oxygen levels return to normal -2 days: ability to smell and taste begins to improve as damaged nerves start to regrow -2-3 weeks: circulation and lung function improves -1-9 months: decreased cough, congestion and shortness of breath; less tired -1 year: risk of heart attack decreases by half -5 years: risk of lung cancer decreases by half; risk of stroke becomes the same as a non-smoker documented in this encounter H&P Notes * Manolo Serrano MD - 06/26/2024 9:48 AM EDT Images from the original note were not included. HISTORY AND PHYSICAL EXAMINATION - Vascular Surgery [address] [address] Name: Tad Silvestre Location: OR [facility]/OR Date: 06/26/2024 Time: 9:48 AM PRESENTING PROBLEM: Left Radiocephalic AVF creation HISTORY OF PRESENT ILLNESS: Tad Silvestre is a 69 year old, male that presents to pre-op today for Left radiocephalic AVF creation with Dr. Cartagena. Since the last clinic visit, no ED visits or hospitalizations. He does not report any new issues or complaints since the last clinic visit. Also denies fevers, chills, night sweats, nausea, vomiting, diarrhea, chest pain, and shortness of breath. Does the patient take Coumadin (warfarin)? no Does the patient take any other anticoagulants? no Last Clinic Visit (05/03/24) Date of Service: 05/03/2024 11:10 AM Tad Silvestre is a 69 year old male. Patient being seen in consultation at the request of Antonio Colon MD Chief Complaint: New pt, needs AVF creation for HD HPI: Former smoker with DM, HFnEF, CAD/prior HI/5 stents, HTN, HLD, PUD, HIV and ESRD on HD On kidney transplant list Has right TDC in place Receives HD [facility] in [place], T/H/Sat Patient is RIGHT handed PPM/ICD: No Raynaud's of hands/feet: No Retired, works in [place] for [employer] in [facility] Current Medications Current Outpatient Medications Medication Sig Dispense Refill [...] UNITS IN THE MORNING. 30 mL 1 Calcitriol 0.5 MCG Oral Capsule (Rocaltrol) [...] by mouth daily. 90 Tablet 3 Pen Mcbh [place] 32G X 4 MM Use as directed. Use to inject insulin 4 times daily E11.9 400 Each 3 Sevelamer Carbonate 800 MG Oral Tablet (Renvela) Take 1 Tablet by mouth in the morning and 1 Tabletat noon and 1 Tablet in the evening. Take with meals. FLUoxetine HCl 20 MG Oral Capsule (PROzac) [...] morning. 90 Tablet 3 FreeStyle Carlos 2 [place] Device Use as directed. Use to test [...] before bedtime. With meals. 15 mL 3 NovoLOG FlexPen 100 UNIT/ML Subcutaneous Solution Pen-injector (insulin aspart) INJECT 10 UNITS THREE TIMES A DAY WITH MEALS or as directed (Patient not taking: Reported on 02/25/2024) 15 mL 5 Current Facility-Administered Medications Medication Dose Route Frequency Provider Last Rate Last Admin Albuterol Sulfate (Proventil) (2.5 MG/3ML) 0.083% inhalation solution 2.5 mg 2.5 mg Nebulizer PRN Albuterol Sulfate (Proventil) (5 MG/ML) 0.5% *conc* inhalation solution 2.5 mg 2.5 mg Nebulizer PRN2.5 mg at 04/27/24 1108 Allergies Review of patient's allergies indicates: No Known Allergies Problem List Patient Active Problem List Diagnosis HTN, goal below 130/80 HIV positive ([facility]) Overweight (BMI 25.0-29.9) Dyslipidemia Coronary artery disease involving tununak coronary artery of tununak heart without angina pectoris Type 2 diabetes mellitus with hemoglobin A1c goal of less than 8.0% ([facility]) Old HI (myocardial infarction) Chronic systolic (congestive) heart failure ([facility]) Left bundle branch block Recurrent major depressive disorder, in full remission ([facility]) 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 ESRD on dialysis ([facility]) History of GI bleed Duodenal ulcer Past Medical History Past Medical History: Diagnosis Date Chronic heart failure with preserved ejection fraction ([facility]) 11/24/2022 Coronary artery disease involving tununak coronary artery of tununak heart without angina pectoris 05/02/2022 Duodenal ulcer 02/02/2024 Dyslipidemia 05/02/2022 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 05/07/2023 History of GI bleed 02/02/2024 Duodenal ulcer HIV positive ([facility]) Hypertension Kidney disease, chronic, stage IV (GFR 15-29 ml/min) ([facility]) 05/02/2022 Left bundle branch block 05/02/2022 Old HI (myocardial infarction) 05/02/2022 Overweight (BMI 25.0-29.9) 05/02/2022 Recurrent major depressive disorder, in full remission ([facility]) 05/05/2022 Systolic and diastolic CHF, chronic ([facility]) 05/02/2022 Type 2 diabetes mellitus with hemoglobin A1c goal of less than 8.0% ([facility]) 05/02/2022 Past Surgical History Past Surgical History: Procedure Laterality Date COLONOSCOPY, DIAGNOSTIC (RECTUM) N/A 02/19/2023 poor prep/nodular mucosa ascending colon/hemorrhoids/biopsies show adenomatous polyps, mild active inflammation/recall 1 year/Colonoscopy/[place] NONE Family History Family History Problem Relation Name [...] Social Determinants of Health Financial Resource Strain: Low Risk (01/18/2024) Financial [...] Stability Do you currently live in a long term or have no steady place to sleep [...] - for ages0-17 years): Not on file COMPLETE REVIEW OF SYSTEMS: Cardiovascular: Negative for chest pain, shortness of breath, palpitations, angina or HI Neurological: Negative for stroke, TIA, amaurosis fugax All other systems negative except for those noted above and in the history of present illness (HPI). GENERAL MULTI-SYSTEM PHYSICAL EXAM: VITAL SIGNS: BP 122/72 (BP Site: Left Arm, BP Position: Sitting, BP Cuff Size: Regular) | Pulse 68 | Temp 35.7 C (96.3 F) (Tympanic) | Wt 78.7 kg (173 lb 8 oz) | BMI 25.99 kg/m | BSA 1.95 m GENERAL MULTI-SYSTEM PHYSICAL EXAM:GENERAL: Normal grooming habits, no acute distress, and appears stated age. NECK: No masses and Normal Thyroid. RESPIRATORY: respiratory effort normal and breath sounds normal. CARDIOVASCULAR: no heart murmurs, no edema, and no varicosities. GASTROINTESTINAL: no tenderness, protuberant, and abdominal aorta not palpable. SKIN: no ulcers, no rash, no induration, capillary refill normal, and no dependent rubor. PSYCHIATRIC: orientation to time, place and person normal and recent and remote memory normal. EYES: conjunctivae normal, eye lids normal, pupils normal, and irises normal. NEUROLOGIC: Cranial nerves intact, Motor function intact, and Sensory exam intact PULSE SCALE: Carotid Right:----Bruit: No Left:----Bruit: No Radial Right: 3 Left: 3 Dorsalis Pedis Right: 3 Left: 3 DIAGNOSTIC STUDIES: 05/02/24 AVF pre op mapping duplex: R Cephalic Vein Prox Upper Arm 0.51 cm R Cephalic Vein Mid Upper Arm 0.38 cm R Cephalic Vein ACF 0.49 cm R Cephalic Vein Mid Forearm 0.48 cm R Cephalic Vein Wrist 0.48 cm R Prox Basilic Vein Upper Arm 0.78 cm R Mid Basilic Vein Upper Arm 0.56 cm R Basilic ACF 0.87 cm R Brachial Art 0.48 cm R Radial Art 0.28 cm L Cephalic Vein Prox Upper Arm 0.50 cm L Cephalic Vein Mid Upper Arm 0.54 cm L Cephalic Vein ACF 0.51 cm L Cephalic Vein Mid Forearm 0.43 cm L Cephalic Vein Wrist 0.42 cm L Prox Basilic Vein Upper Arm 0.58 cm L Mid Basilic Vein Upper Arm 0.57 cm L Basilic ACF 0.65 cm L Brachial Art 0.39 cm L Radial Art 0.32 cm The above vascular lab images were directly visualized and independently interpreted by me on 05/02/2024 with results as above. 01/28/21 Carotid Duplex ([facility], report only): <50% B/L ICA stenosis 09/17/19 CT Abd/Pelvis ([facility], report only): No mention of AAA LABS: Lab Results Component Value Date/Time CREATININE - [facility] 2.4 (H) 04/11/2024 10:31 AM CREATININE - [facility] 3.4 (H) 02/02/2024 11:52 AM CREATININE - [facility] 3.5 (H) 02/02/2024 11:52 AM CREATININE - [facility] 0.9 06/17/2012 06:08 AM CREATININE - [facility] 0.8 06/16/2012 05:08 AM CREATININE - [facility] 0.8 06/15/2012 05:32 AM CREATININE, RANDOM URINE - [facility] 54 04/11/2024 10:37 AM CREATININE, RANDOM URINE - [facility] 42 05/07/2023 12:16 PM CREATININE, RANDOM URINE - [facility] 37 08/12/2022 03:11 PM CREATININE-OUTSIDE LAB 3.37 (H) 10/02/2020 03:48 PM CREATININE-OUTSIDE LAB 3.31 (H) 07/01/2020 01:03 PM Lab Results Component Value Date/Time LDL (CALCULATED)-OUTSIDE LAB 46 07/20/2020 04:33 AM LDL CHOLESTEROL (CALCULATED) - [facility] 74 04/11/2024 10:31 AM LDL CHOLESTEROL (CALCULATED) - [facility] 64 06/15/2012 05:32 AM LDL CHOLESTEROL (DIRECT MEASURE) - [facility] 61 05/07/2022 04:25 PM Lab Results Component Value Date/Time HEMOGLOBIN A1C - [facility] 8.6 (H) 04/11/2024 10:31 AM The above clinical labs were reviewed by me on 05/03/2024. IMPRESSIONS: ESRD, on HD via TDC. Needs creation of AVF Former smoker DM HFnEF CAD/prior HI/RCA stenting HTN HLD PUD HIV PLAN: Patient was counseled on concept of AVF, maturation times of AVF, failure rates of AVF to fully mature, bed bug exterminator failure rates of AVF, physiologic reality of arterial steal due to AVF, and both concept & need of fistulograms. Signed up for creation of LEFT arm AVF Consent signed Pt given 2 education booklets Hold AM insulin on day of surgery RTC 1 month post op for incision/AVF check The patient was seen and examined with Benjamin Cartagena MD. [place] PA-C Section of Vascular [place] [address] [phone] I have reviewed the advanced practitioner's documentation on the date of service referenced in note, and I agree with, and take responsibility for the plan of care. 69 year old male on dialysis x 3 months via R IJ TDC here for fistula creation Excellent bilateral vein mapping Right handed Recommend left RC AVF He is agreeable The patient was counseled at length regarding the nature of hemodialysis access procedures and the risks, benefits and alternatives of this surgery. The patient and I discussed that given enough time, all hemodialysis access will fail and will require periodic endovascular procedures and/or open surgery. I have discussed with the patient that they are at very high risk for the following anticipated complications due to the patient's co-morbidities including hemodialysis access thrombosis/malfunction/rupture, wound complications including nonhealing and wound infection, steal syndrome requiring additional procedures such as bypass surgery or arteriovenous access ligation, heart attack, respiratorycomplications, worsening kidney function requiring dialysis, nerve damage, bleeding or thrombosis requiring transfusion/re- operation, hemorrhage/thrombosis/aneurysm formation at the site of catheter i nsertion, clot or blockage of blood flow to the extremities, re-operation for limb ischemia, accessthrombosis or digit/hand/limb amputation. I have also explained to the patient that other risks of the procedure include, but are not limitedto, radiation injury, allergic reaction to the contrast, stroke, transfusion reaction, infection, or . The patient understands the seriousness of the situation and would like to proceed with theprocedure. The patient has had a thorough medical evaluation and management of symptoms as outlined above. Theplan is to proceed initially with angiography and then immediate intervention based upon the results. I plan on proceeding with an endovascular procedure as the only other alternative would be an invasive open surgical procedure (which the patient understands may still be required). If the lesion(s) are amenable to an endovascular approach, angioplasty will be performed first for appropriate lesions. Stenting will also be performed for lesions known to have a poor result from angioplasty alone and those lesions that demonstrate a poor result post angioplasty. I also discussed the possible need for placement of a dialysis catheter. I have discussed with the patient that they are at very high risk for the following anticipated complications due to the patient's co-morbidities including pneumothorax that may require a chest tube, air embolism, catheter clotting and replacement, catheter fracture, catheter malfunction, bleeding, catheter infection requiring removal or replacement or venous injury. The patient is also at anticipated high risk for future central vein stenosis or occlusion which can affect clotting of the catheter. Other complications related to a catheter discussed included pulmonary embolism, deep vein thrombosis requiring anticoagulation, , stroke, respiratory complications and radiation injury. The patient understands the seriousness of the situation and would like to proceed with surgery. All questions were answered, and informed consent was obtained. Will plan on additional dialysis access surgery to ensure continued functionality. The [facility] Hemodialysis Access Booklet was given to the patient. Benjamin Cartagena MD Section of Vascular [place] [address] [phone] HOSPITAL PROBLEM LIST: Patient Active Problem List Diagnosis HTN, goal below 130/80 HIV positive ([facility]) Overweight (BMI 25.0-29.9) Dyslipidemia Coronary artery disease involving [place] coronary artery of [place] heart without angina pectoris Type 2 diabetes mellitus with hemoglobin A1c goal of less than 8.0% ([facility]) Old HI (myocardial infarction) Chronic systolic (congestive) heart failure ([facility]) Left bundle branch block Recurrent major depressive disorder, in full remission ([facility]) 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 ESRD on dialysis ([facility]) History of GI bleed Duodenal ulcer PAST MEDICAL HISTORY: Past Medical History: Diagnosis Date Chronic heart failure with preserved ejection fraction ([facility]) 11/24/2022 Coronary artery disease involving tun[place] coronary artery of [place] heart without angina pectoris 05/02/2022 Duodenal ulcer 02/02/2024 Dyslipidemia 05/02/2022 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 05/07/2023 History of GI bleed 02/02/2024 Duodenal ulcer HIV positive ([facility]) Hypertension Kidney disease, chronic, stage IV (GFR 15-29 ml/min) ([facility]) 05/02/2022 Left bundle branch block 05/02/2022 Old HI (myocardial infarction) 05/02/2022 Overweight (BMI 25.0-29.9) 05/02/2022 Recurrent major depressive disorder, in full remission ([facility]) 05/05/2022 Systolic and diastolic CHF, chronic ([facility]) 05/02/2022 Type 2 diabetes mellitus with hemoglobin A1c goal of less than 8.0% ([facility]) 05/02/2022 PAST SURGICAL HISTORY: Past Surgical History: Procedure Laterality Date COLONOSCOPY, DIAGNOSTIC (RECTUM) N/A 02/19/2023 poor prep/nodular mucosa ascending colon/hemorrhoids/biopsies show adenomatous polyps, mild active inflammation/recall 1 year/Colonoscopy/[place] NONE FAMILY HISTORY: Family History Problem Relation Name Age of Onset No Past Hx Father Heart Disorder Mother Neurological Disorder Mother Parkinson's, Alzheimer's SOCIAL HISTORY: Social History Tobacco Use Smoking status: Former Average packs/day: 0.3 packs/day for 30.0 years (7.5 ttl pk-yrs) Types: Cigarettes Start date: 1973 Smokeless tobacco: Never Vaping Use Vaping status: Never Used Substance Use Topics Alcohol use: Yes Alcohol/week: 11.7 standard drinks of alcohol Types: 14 5 oz of wine per week Drug use: No CURRENT HOSPITAL MEDICATIONS: Note that completed medications (per the MAR) continue to display for 24 hours. Ordered medicationsto be given in the future also display. Current Facility-Administered Medications Medication Dose Route Frequency Provider 1/2 NSS infusion Intravenous Continuous Librado Lake PA-C ceFAZolin in dextrose (Ancef) ivpb 2 g 2 g IV Piggyback Pre-Op Librado Lake PA-C fentaNYL (PF) inj 50 mcg 50 mcg IV Push Q5 Min PRN Bandar Patel MD midazolam (Versed) 2 MG/2ML inj 1 mg 1 mg IV Push Q2 Min PRN Bandar Patel MD oxygen GAS Inhalation Oxygen Bandar Patel MD sodium chloride 0.9 % flush peripheral fran 3 mL 3 mL IV Push Q Shift Librado Lake PA-C ALLERGIES: Patient has no known allergies. ROS: All other systems negative except for those in the history of present illness (HPI). PHYSICAL EXAMINATION: BP: 140 mmHg/91 mmHg (06/26/24936) Pulse: 69 (06/26/24936) Resp: 11 (06/26/24936) Temp: 36 C (06/26/24936) Temp Summary: Temp Min: 36 C (96.8 F) Max: 36 C (96.8 F) SpO2: 99 % (06/26/24936) O2 flow rate: Supplemental O2 Delivery: Room Air, None (06/26/24936) Gen: A&Ox3 HENT: Supple, No LAD Pulm: Comfortable on RA Cardio: RRR on monitor Abd: Soft nontender MSK: Spont moves extremities Neuro: No obvious deficits Left radial and ulnar pulse palpable LABS: Labs reviewed as indicated below: No results found for this or any previous visit (from the past 12 hour(s)). IMAGING: No imaging results in the last 72 hours IMPRESSION and PLAN: - Plan for Left Radiocephalic AV fistula creation with Dr. Cartagena This patient was seen and examined at bedside and will be discussed with Osiel. Manolo Serrano MD Vascular Surgery PGY1 [facility] 06/26/2024 9:50 AM documented in this encounter Nursing Notes * Sandy Cifuentes RN - 06/26/2024 12:41 PM EDT Dual Licensed Skin Assessment completed by KWABENA negrete and KWABENA rodas. The patient is/has a N/A Skin Breakdown (includes non blanchable erythema): Yes - Surgical/Procedural changes only. * Lizette Ackerman RN - 06/26/2024 10:35 AM EDT Dual Licensed Skin Assessment completed by corrine and Magalis YUAN. The patient is/has a N/A Skin Breakdown (includes non blanchable erythema): No * Izabella Cole RN - 06/23/2024 9:36 AM EDT Surgical case is tomorrow, no call made. Chart review completed. Patient does not have a [facility] portal. NO ANESTHESIA EVAL REQUESTED PER CASE DOCUMENTATION. PREOP PATIENT INFORMATION AND EDUCATION: MEDICATION INSTRUCTIONS: The day of surgery/procedure, you may TAKE the following medications with a sip of water up to 2 hours prior to your arrival time: Please follow the pre-operative instructions provided by your vascular surgeon. If you have any questions regarding these instructions please contact your surgeon's office at [phone]. Nothing to eat or drink by mouth after midnight the night before surgery including no food, no gum/hard candy, coffee, tea, other drink, or tobacco product. Continue all of your normal morning medications with a few sips of water on day of surgery unless otherwise instructed. DO NOT TAKE THESE MEDICATIONS ON THE AM OF SURGERY: Morning insulin CONTINUE your ASPIRIN, including morning of surgery. STOP taking the following medications the noted number of days prior to surgery/procedure unless otherwise specified by your surgeon: Please follow surgeon's instructions regarding use of Aspirin, Coumadin, Plavix, Eliquis, and any other blood thinner including NSAIDs (non-steroidal anti- inflammatory drugs, eg, Advil, Ibuprofen, Motrin, Aleve, Naproxen); if you have any questions regarding your anticoagulation therapy please contact your surgeon's clinic. Please verify any proposed stoppage of your anticoagulation therapy with the agent's prescribing provider. 10 days prior to surgery/procedure Stop all Herbal supplements, Green Tea, Turmeric, Melatonin, CBD, THC, etc. Stop all Vitamins (including Vitamin E) 24 hours prior to surgery/procedure DO NOT consume any alcohol. DO NOT use medical marijuana. DO NOT smoke or use tobacco products of any kind after midnight prior to surgery. *Using any of these products may increase your risks of procedural complications. IF IT IS LESS THAN RECOMMENDED STOPPAGE TIME PLEASE STOP AT TIME OF NOTIFICATION. THE DAY BEFORE YOUR SURGERY: -Drink plenty of fluid the day before your surgery. Contact your surgeon's office if you develop any of the following within 2 weeks of surgery: A cold Infection Fever Shingles Chicken pox or exposure to chicken pox Open areas such as scrapes, cuts, mccarty or other skin conditions Rashes GENERAL INSTRUCTIONS FOR PREPARING FOR SURGERY: BATHING INSTRUCTIONS: Bathe the evening prior to and the morning of surgery/procedure. Cleanse your body using ONLY anti-bacterial soap (eg, Dial, Safeguard) or any specific soap/cleansers and instructions provided by your surgeon (eg, Chlorhexidine). -You should brush your teeth the morning of surgery. Do NOT apply any lotions, powders, sprays, creams, oils, make-up, or deodorants after bathing. No hairspray, or nail turkmen on fingers or toes. Day of surgery/procedure do not use tampons. If you wear contacts wear your eyeglasses if available otherwise bring your contact supplies with you to remove them prior to your surgery/procedure. If you wear glasses or dentures, please bring cases in which you can store them during your surgery. Please remove all piercings and jewelry and leave them at home. Wear comfortable and loose clothing. -Please leave all valuables at home. -If you use a CPAP and are staying overnight, please bring your mask and tubing with you to the hospital. -If you use an assistive mobility device (walker, cane, etc), please label it with your name and bring to hospital. -An escort pile driver operator barge mounted is required if you are being discharged the same day of the surgery. You should have a responsible adult over the age of 18 [address] you home. This person should be present with youin the hospital at the time of discharge and for the first 24 hours after the surgery to support your needs. If you are taking a taxi home, you must have your responsible constitution party accompany you in the taxi ride home at the time of discharge. OR times subject to change. Please check voicemail messages the day/evening before your surgery forany updates. PRE-OP: You will be taken to the pre-op area where your vital signs (blood pressure, pulse and temperature)will be taken. Any preparations that need to be done will be done there. When it is time for your surgery, you will be taken to the operating room. PARENTS OF PEDIATRIC PATIENTS WILL BE ALLOWED TO STAY WITH THEIR CHILDREN UNTIL THEY ARE ESCORTED TO THE OPERATING ROOM OUTPATIENT SURGERY PATIENTS: After your surgery you will be taken to the Same Day Surgery Unit when you are awake and will go home from there. You will get instructions about your home care before you leave. Arrange to have someone drive you home from the hospital. You may not drive for 24 hours after anesthesia. You must havean adult stay with you at home for 24 hours after your operation. This is very important. If you are not able to comply with these guidelines, your Short Stay surgery cannot be done. ADMISSION PATIENTS: After your stay in the recovery area, you will be taken to your room. Your family may visit you in your room based on current visitation policy. If a next day discharge is expected, it is important to make arrangements for a pile driver operator barge mounted to take you home. Please be aware our visitation policies are subject to change Professionals, attendants, caregivers or family members are allowable visitors for patients with intellectual, developmental or cognitive disabilities, communication barriers or behavioral concerns. Because patients' and families' needs vary, they will be taken into account when applying visitation restrictions. [facility]: Contact # [phone] Directions to Surgical Suite in from the Satya Entrance The Surgical Waiting Room can be found in the Lobby of [facility]. Enter through Main Lobby Entrance and the Waiting Room is directly in front of you. Proceed to check in and give them your name. Directions to Surgical Suite from the East Entrance Enter the East entrance and follow the hallway to the J elevator. Take the J elevator up to Level 1. Continue down the long hallway to the main [facility] Lobby. The Surgical Waiting Room will be on your Right. Proceed to check in and give them your Name. Directions to Surgical Suite from the Parking Garage Enter the [facility] lobby and proceed down the lowe to the left. At the end of the lowe, turn right. Continue down the long hallway to the main [facility] Lobby. The Surgical Waiting Room will be on your Right. Proceed to check in and give them your Name. Izabella Cole, MSN, RN [facility] 06/23/2024 documented in this encounter OR Notes * OR Surgeon - Benjamin Cartagena MD - 06/26/2024 12:17 PM EDT [facility] [address] [facility] [id number] OPERATIVE REPORT Name: Tad Silvestre Date: 06/26/2024 Time: 12:17 PM Location: OR [facility] Service: Vascular Surgery Date of Operation: 06/26/2024 Pre-op Diagnosis: Chronic kidney disease requiring hemodialysis access Post-op Diagnosis: Same Surgeon: Benjamin Cartagena MD Assistants: David Mcghee MD Anesthesia: Monitored Local Anesthesia with Sedation Nerve block Operation: Left wrist radiocephalic arteriovenous fistula creation for hemodialysis Findings: Good arterial inflow. Vein of adequate size for AV fistula. Both the artery and vein had significant spasm with manipulation and therefore Papverine was used to help with this. The vein wasdilated to 3.5 mm with ease prior to anastomosis. The inflow artery easily accepted a 2 mm dilator to assist with easing spasm and confirm patent proximal artery after anastomotic suture placement. Excellent doppler thrill at completion. Specimen and Disposition: None Estimated Blood Loss: 10 ml Fluids: 300 ml crystalloid Urine output: None Drains/Implants: None Complications: None Postoperative Condition: Stable Indications and History: This is a 69 year oldwjr-suwd-hyx male who presents with chronic kidney disease necessitating hemodialysis access creation. An arteriovenous fistula was chosen to provide access. The patient understandsthe risks, benefits and alternatives of the procedure and agrees to proceed with the fistula creation. Description of Operation: The patient was identified and the procedure verified. A time-out was held and the correct procedure and correct site were confirmed with the consent. The patient was given anesthesia and the patients left arm was prepped and draped in the usual sterile fashion. A longitudinal incision was made adjacent to the radial artery and cephalic vein in the wrist. The cephalic vein was identified. Several small tributaries were ligated with sutures and divided. The vein was mobilized and controlled with silastic loops. Next, the radial artery was identified and dissected. The artery was of adequate caliber and was without significant atherosclerotic disease. The artery was mobilized proximally and distally for a 2-cm segment and several small tributaries were ligated with ties and divided. The patient was systemically heparinized. The vein was then brought adjacent to the artery and appeared to lie comfortably without tension or kinking. The artery was contr olled proximally and distally with silastic vessel loops and an anterolateral arteriotomy was made using a #11 blade scalpel. The distal vein was ligated and the vein divided. The end of the vein was then opened and spatulated . The arteriovenous anastomosis was then performed using a running 6-0 prolene suture. Following completion of the anastomosis, hemostasis was satisfactory. Excellent flow through the fistula was confirmed and the hand was well perfused. Hemostasis was assured. The wound was irrigated and the subcutaneous tissues were re-approximated using interrupted 3-0 Vicryl sutures. The skin was closed with 4-0 subcuticular monocryl sutures. A dry sterile dressing was applied. The patient tolerated the procedure well and was taken to the post anesthesia care unit in stable condition. Sponge count and needle counts were correct. Postoperative pain management per Anesthesia for evaluation and placement of regional anesthesia toreduce the need for opioid pain medication. Attestation: I was present and scrubbed for the entire procedure documented in this encounter Miscellaneous Notes * Progress Notes - Non-Billable - Manolo Serrano MD - 06/26/2024 1:21 PM EDT PROGRESS NOTE - Vascular Sugery [facility]-[address] [id number] Name: Tad Silvestre Location: OR [facility]/OR Date: 06/26/2024 Time: 1:22 PM DIAGNOSIS: Chronic kidney disease requiring hemodialysis access PROCEDURE: Left wrist radiocephalic arteriovenous fistula creation for hemodialysis DATE OF SURGERY: 06/26/24 POST OP DAY: 0 - POC SUBJECTIVE: Tad Silvestre is doing well post-op. Patient has no pain. No n/v, chest pain, or shortness of breath. OBJECTIVE: Physical Exam: BP: 133 mmHg/82 mmHg (06/26/24 1300) Pulse: 68 (06/26/24 1300) Resp: 15 (06/26/24 1300) Temp: 36.11 C (06/26/24 1300) Temp Summary: Temp Min: 36 C (96.8 F) Max: 36.1 C (97 F) SpO2: 100 % (06/26/24 1300) O2 flow rate: 3 L/MIN (06/26/24 1025) Supplemental O2 Delivery: Room Air, None (06/26/24 1300) Constitutional: no acute distress, appropriate mood HEENT: normocephalic, atraumatic, sclera and conjunctiva normal trachea midline CV: warm and well perfused Chest: symmetric and normal respiratory effort Abdomen: soft, non distended, no guarding or rebound. . Surgical site: Left radiocephalic site with bandage over it. Palpable thrill present Extremities: no edema, no cyanosis Skin: warm, dry Neuro: alert, conversant, motor function is grossly intact LABS: IMAGING: No imaging results in the last 24 hours IMPRESSION: Principal Problem: ESRD on dialysis (HCC) Resolved Problems: * No resolved hospital problems. * Tad Silvestre is a 69 year old male with s/p left radiocephalic fistula creation by Dr. Cartagena on 06/26/2024. Doing well. post-op. PLAN: -patient okay for discharge home. documented in this encounter Plan of Treatment Upcoming Encounters Date Type Department Care Team (Late st Contact Info) Description 07/04/2024 2:00 PM EDT Office Visit Gastroenterology, [facility] [address] [facility] [place] [address] Erna Srivastava CRNP [address] [facility] [place] [address] 07/19/2024 12:50 PM EST Office Visit Vascular Surgery, [facility] [address] [facility] [place] [address] Benjamin Cartagena MD [address] [place] [address] 09/19/2024 3:30 PM EST Office Visit Cardiology, [facility] [address] [place] [address] Davy Mota MD [address] [place] [address] 10/13/2024 9:00 AM EST Office Visit Family Practice [facility] [address] [place] [address] Antonio Colon MD [address] [place] [address] Scheduled Procedures Name Priority Associated Diagnoses Date/Ti [...] Diagnosis Comments GLUCOSE METER, POINT OF CARE [facility] 06/26/2024 10:10 AM EDT POTASSIUM, WHOLE BLOOD STAT 06/26/2024 9:58 AM EDT GLUCOSE METER, POINT OF CARE [facility] 06/26/2024 9:56 AM EDT documented in this encounter Results * (ABNORMAL) GLUCOSE METER, POINT OF CARE (06/26/2024 10:10 AM EDT) GLUCOSE - POCT 260(H) 70 - 120 mg/dL 06/26/2024 10:12 AM EDT [facility] Blood Whole blood specimen / Unknown 06/26/2024 10:10 AM EDT 06/26/2024 10:12 AM EDT Benjamin Cartagena MD LAB POINT OF CARE TEST DOCKED DEVICE UNSOLICITED RESULTS [facility] [address] [place] [address] * POTASSIUM, WHOLE BLOOD (06/26/2024 9:58 AM EDT) Potassium 4.8 3.5 - 5.1 mmol/L 06/26/2024 10:17 AM EDT LABORATORY [facility] Blood Venous blood specimen / Unknown Venipuncture / Unknown 06/26/2024 9:58 AM EDT 06/26/2024 10:13 AM EDT Librado Lake PA-C LAB BLOOD ORDERA BLES LABORATORY [facility] [address] [place] [address] * (ABNORMAL) GLUCOSE METER, POINT OF CARE (06/26/2024 9:56 AM EDT) Pathologist [facility] GLUCOSE - POCT 275(H) 70 - 120 mg/dL 06/26/2024 10:01 AM EDT [facility]ITAL[facility] Blood Whole blood specimen / Unknown 06/26/2024 9:56 AM EDT 06/26/2024 10:01 AM EDT Benjamin Cartagena MD LAB POINT OF CARE TEST DOCKED DEVICE UNSOLICITED RESULTS [facility] [address] [place] [address] documented in this encounter Visit Diagnoses Diagnosis ESRD on dialysis (HCC)- Primary End stage renal disease ESRD on dialysis (HCC) End stage renal disease documented in this encounter Administered Medications Inactive Administered Medications - up to 3 most recent administrations Medication Order MAR Action Action Date Dose Rate Site 1/2 NSS infusion Intravenous, at 25 mL/hr, CONTINUOUS, Starting on Wed06/26/24 at 1000, Until Wed06/26/24 at 1800, Pre-Op Restarted 06/26/2024 10:44 AM EDT New Bag 06/26/2024 10:37 AM EDT 25 mL/hr fentaNYL (PF) inj 50 mcg 50 mcg, IV Push, Q5 MIN PRN Other, sedation for block placement, Starting on Wed06/26/24 at 0925, Until Wed06/26/24 at 1800, For 2 doses, Maximum 100 mcg. Preop Anesthesia Block When given IV Push its recommended that the dose be given over 3 to 5 minutes., Pre-Op insulin aspart (NovoLOG) inj 8 Units 8 Units, Subcutaneous, ONCE, 1 dose, On Wed06/26/24 at 1100 Given 06/26/2024 10:37 AM EDT 8 Units Arm Right Upper midazolam (Versed) 2 MG/2ML inj 1 mg 1 mg, IV Push, Q2 MIN PRN sedation for block placement , Starting on Wed06/26/24 at 0925, Until Wed06/26/24 at 1800, For 2 doses, Preop Anesthesia Block, Pre-Op oxygen GAS Inhalation, OXYGEN, First dose on Wed06/26/24 at 1000, Until Discontinued, Device/Managed by: Low Flow Device, Goal SPO2 (%): 91-95, Starting Device: Nasal Cannula, Initial Flow Rate (LPM): 2, Lowest Support: Nasal Cannula: Flow 0-6 LPM. Titrate up/down by 1 LPM., Titration Interval: Q2 minutes and as needed., Notify Provider: For sudden DECREASE in resting SPO2 to less than 85% and when escalating delivery device., Wean patient off Oxygen when the oxygen saturation is greater than or equal to 93% Oxygen On 06/26/2024 10:20 AM EDT 3 L/min(Oxygen) sodium chloride 0.9 % flush peripheral fran 3 mL 3 mL, IV Push, QSHIFT, First dose on Wed06/26/24 at 1000, Until Discontinued, Do not flush if lock, PICC, or central line not in place; IV infusing or unable to flush., Pre-Op documented in this encounter Active and Recently Administered Medications Times are shown in EDT. Scheduled Medication Order 06/24/2024 06/25/2024 06/26/2024 ceFAZolin in dextrose (Ancef) ivpb 2 g (COMPLETED) 2 g, IV Piggyback, PREOP, 1 dose, First dose on Wed06/26/24 at 1000, Administer 60 minutes prior to skin incision, Pre-Op 1057 (Given - Provid er: Chenta Zapata CRNA) insulin aspart (NovoLOG) inj 8 Units (COMPLETED) 8 Units, Subcutaneous, ONCE, 1 dose, On Wed06/26/24 at 1100 1037 (Given - Provid er: Lizette Ackerman RN) insulin aspart (NovoLOG) inj 8 Units 8 Units, Subcutaneous, ONCE, 1 dose, On Wed06/26/24 at 1200 1200 (Due) oxygen GAS Inhalation, OXYGEN, First dose on Wed06/26/24 at 1000, Until Discontinued, Device/Managed by: Low Flow Device, Goal SPO2 (%): 91-95, Starting Device: Nasal Cannula, Initial Flow Rate (LPM): 2, Lowest Support: Nasal Cannula: Flow 0-6 LPM. Titrate up/down by 1 LPM., Titration Interval: Q2 minutes and as needed., Notify Provider: For sudden DECREASE in resting SPO2 to less than 85% and when escalating delivery device., Wean patient off Oxygen when the oxygen saturation is greater than or equal to 93% 1020 (Oxygen On - Pr ovider: Vernell Walker RN - Comment: on for block) sodium chloride 0.9 % flush peripheral fran 3 mL 3 mL, IV Push, QSHIFT, First dose on Wed06/26/24 at 1000, Until Discontinued, Do not flush if lock, PICC, or central line not in place; IV infusing or unable to flush., Pre-Op 1000 (Due) Continuous Medication Order 06/24/2024 06/25/2024 06/26/2024 1/2 NSS infusion Intravenous, at 25 mL/hr, CONTINUOUS, Starting on Wed06/26/24 at 1000, Until Wed06/26/24 at 1800, Pre-Op 1037 (New Bag - Prov ider: Lizette Ackerman RN)1043 (Paused - Provider: Chetna Zapata CRNA - Comment: Switch to gravity)1044 (Restarted - Provider: Chetna Zapata CRNA)1215 (Anes Intra-Op Fluid - Provider: Chetna Zapata CRNA) PRN Medication Order 06/24/2024 06/25/2024 06/26/2024 ceFAZolin 1,000 mg in sodium chloride IR 0.9 % 500 mL irrigation (CANCELED) ONCE PRN INTRA PROCEDURE, Starting on Wed06/26/24 at 1116, Until Wed06/26/24 at 1220, Intra-Op 1116 (Given - Provid er: Benjamin Cartagena MD - Comment: prn irrigation intraop) fentaNYL (PF) inj 50 mcg 50 mcg, IV Push, Q5 MIN PRN Other, sedation for block placement, Starting on Wed06/26/24 at 0925, Until Wed06/26/24 at 1800, For 2 doses, Maximum 100 mcg. Preop Anesthesia Block When given IV Push its recommended that the dose be given over 3 to 5 minutes., Pre-Op hEParin 5,000 Units in NSS 500 mL infusion (CANCELED) ONCE PRN INTRA PROCEDURE, Starting on Wed06/26/24 at 1116, Until Wed06/26/24 at 1220, Intra-Op 1116 (Given - Provid er: Benjamin Cartagena MD - Comment: prn flush/irrigation intraop) midazolam (Versed) 2 MG/2ML inj 1 mg 1 mg, IV Push, Q2 MIN PRN sedation for block placement , Starting on Wed06/26/24 at 0925, Until Wed06/26/24 at 1800, For 2 doses, Preop Anesthesia Block, Pre-Op papaverine inj (CANCELED) ONCE PRN INTRA PROCEDURE, Starting on Wed06/26/24 at 1203, Until Wed06/26/24 at 1220, Intra-Op 1203 (Given - Provid er: Benjamin Cartagena MD - Comment: .3ml injected .7ml topical) documented in this encounter Advance Directives * Full Code (Latest Code Status on File) Date Activated Date Inactivated Comments 06/14/2012 6:26 PM 06/17/2012 7:43 PM This order r eflects the patients wishes and were consensually agreed upon. Healthcare Agents on File Name Relationship Healthcare Agent Relationshi p Communication Lorin Silvestre [facility] Health Care Repr esentative (appointed verbally by patient or by statute hierarchy) Care Teams Floor Sanding Machine Operator Relationship Specialty Start Date End Date Antonio Colon MD [address] [place] [address] PCP - General Family Medicine 02/12/22 documented as of this encounter
--- OUTSIDE RECORDS SUMMARY | 2024-09-21 08:07 | External Medical Summary | Summary of Care ---
Author Name Unknown Organization [facility] Address [address] [place] [address] Phone [phone] Care Team Providers Care Pants Maker Name Role Phone Antonio Colon MD Primary Care Provider [phone] Reason for Referral * Precert (Within 24 hrs (call dept; emergent)) - Authorized Specialty Diagnoses / Procedures Referred By Contac t Referred To Contact Radiology Diagnoses ESRD on dialysis (HCC) Procedures IR VENOUS ACCESS NON-MEDIPORT Tesfaye Morris MD [address] [employer], [place] [address] Phone: tel: fax: Referral ID Status Reason Start Date Expiration Date V isits Requested Visits Authorized [id number] Authorized 07/25/2024 999 999 Reason for Visit * Reason Onset Date Comments Referral Requested by Specialist 07/25/2024 Encounter Details Date Type Department Care Team (Late st Contact Info) Description 07/25/2024 Telephone NephrologyMadeline [address] [place] [address] Tesfaye Morris MD [address] [place] [address] Referral Requested by Specialist Allergies No known active allergiesdocumented as of this encounter (statuses as of 07/25/2024) Medications Co Q 10 10 MG Oral [...] Additional Information Patient taking differently: 10 UnitsSubcutaneous [id number], Reported on 05/08/2024 Metoprolol Succinate ER 25 MG Oral Tablet Extended Release 24 Hour (toPROL XL)Indications: Coronary artery disease involving tribe coronary artery of tribe heart without angina pectoris TAKE 1 TABLET BY MOUTH EVERY DAY IN THE MORNING 90 Tablet 3 10/05/19 24 Active Prasugrel HCl 10 MG Oral Tablet (Effient)Indica tions:Coronary artery disease involving tribe coronary artery of tribe heart without angina pectoris TAKE 1 TABLET [...] 90 Tablet 3 12/01/19 24 Active Pen [place] 32G X 4 MM Use as directed. [...] In the morning.. 90 Tablet 3 03/24/20 Active Pantoprazole Sodium 40 MG Oral Tablet Delayed Release (Protonix) Take 1 Tablet by mouth in the morning. 90 Tablet 3 03/24/20 Active FreeStyle Carlos 2 [place] DeviceIndicatio ns:Type 2 diabetes mellitus with hemoglobin A1c goal of less than 8.0% ([facility]) Use as directed. Use to test BG E10.65 1 Each 04/11/20 24 Active FreeStyle Carlos 2 SensorIndicatio ns:Type 2 diabetes mellitus with hemoglobin A1c goal of less than 8.0% ([facility]) Use as directed. Use one sensor every 14 days for blood sugar E10.65 1 Each 04/11/20 Active Fiasp FlexTouch 100 UNIT/ML Subcutaneous Solution Pen-injector (Insulin Aspart (w/Niacinamide) )Indications:Ty pe 2 diabetes mellitus with hemoglobin A1c goal of less than 8.0% ([facility]) Inject 10 Units under the skin in the morning and 10 Units at noon and 10 Units before bedtime. With meals. 15 mL 3 4 10:53 AM EDT 04/26/20 Active Hospital, Clinic, or Other Facility Administered Medication Ordered Dose Route Frequency Start Date End Date Status Albuterol Sulfate (Proventil) (2.5 MG/3ML) 0.083% inhalation solution 2.5 mgIndications:ESRD on dialysis ([facility]),Pre-transplant evaluation for ESRD (end stage renal disease) 2.5 mg NEBULIZER PRN 03/24/2024 Acti ve Albuterol Sulfate (Proventil) (5 MG/ML) 0.5% *conc* inhalation solution 2.5 mgIndications:ESRD on dialysis ([facility]),Pre-transplant evaluation for ESRD (end stage renal disease) 2.5 mg NEBULIZER PRN 03/24/2024 Acti ve documented as of this encounter (statuses as of 07/25/2024) Active Problems Problem Noted Date Diagnosed Date [...] as of this encounter (statuses as of 07/25/2024) Resolved Problems Problem Noted Date Diagnosed Date Resolved Date Chronic heart failure with p reserved ejection fraction 11/24/2022 02/04/2023 Kidney disease, chronic, sta ge IV (GFR 15-29 ml/min) 05/02/2022 02/02/2024 ARDS (adult respiratory distress syndrome) 06/17/2012 05/02/2022 Acute pancreatitis 06/14/2012 Acute respiratory distress 06/14/2012 0 05/02/2022 documented as of this encounter (statuses as of 07/25/2024) Immunizations Name Administration Dates Next Due COVID-19 [...] Telephone Encounter - Any Fraser RN - 07/25/2024 8:41 AM EST Order placed for Urgent Tunneled cath insertion sent to [facility] due non functioning cath. documented in this encounter Plan of Treatment Upcoming Encounters Date Type Department Care Team (Late st Contact Info) Description 08/22/2024 10:20 AM EST Office Visit Infectious Disease, [address] [phone] Shirley Asencio MD [address] [place] [address] 08/23/2024 10:10 AM EST Office Visit Vascular Surgery, [facility] [address] [place] [address] Simeon Perez MD [address] [place] [address] 09/19/2024 3:30 PM EST Office Visit Cardiology, [facility] [address] [place] [address] Davy Mota MD [address] [place] [address] 10/13/2024 9:00 AM EST Office Visit Family Practice [facility] [address] [facility] [place] [address] Antonio Colon MD [address] [place] [address] Scheduled Orders Name Type Priority Associated Diagnoses Orde r Schedule IR VENOUS ACCESS NON-MEDIPORT Medical Imaging STAT ESRD on dialysis (HCC) Expected: 07/25/2024, Expires: 08/24/2025 Scheduled Procedures Name Priority Associated Diagnoses Date/Ti [...] as of this encounter Visit Diagnoses Diagnosis ESRD on dialysis (HCC)- Primary End stage renal disease documented in this encounter Advance Directives * Full Code (Latest Code Status on File) Date Activated Date Inactivated Comments 06/14/2012 6:26 PM 06/17/2012 7:43 PM This order r eflects the patients wishes and were consensually agreed upon. Healthcare Agents on File Name Relationship Healthcare Agent Relationshi p Communication Lorin Silvestre [facility] Health Care Repr esentative (appointed verbally by patient or by statute hierarchy) Care Teams Pants Maker Relationship Specialty Start Date End Date Antonio Colon MD [address] [place] [address] PCP - General Family Medicine 02/12/22 documented as of this encounter
--- OUTSIDE RECORDS SUMMARY | 2024-09-21 08:07 | External Medical Summary ---
Author Name Unknown Address Unknown Organization : Laboratory Report Ordering Provider Test Date Status JAYLEEN ALAN 06/26/2024 10:10:37 Final Observation Date Value Abnormality Reference (Units ) Status Glucose Point of Care 06/26/2024 10:10:37 260 Above high normal 70-120 (mg/dL) Final Performing Location
--- OUTSIDE RECORDS SUMMARY | 2024-09-21 08:07 | External Medical Summary | Summary of Care ---
Author Name Unknown Organization [facility] Address [address] [place] [address] Phone [phone] Care Team Providers Care Beef Cattle Farm Manager Name Role Phone Antonio Colon MD Primary Care Provider [phone] Reason for Visit * Reason Comments Cystoscopy With stent removal Encounter Details Date Type Department Care Team (Late st Contact Info) Description 06/05/2024 1:30 PM EDT Office Visit Urology Hari Roth [address] [place] [address] Himanshu Gamez Jr., MD [address] [place] [address] Retained ureteral stent* Allergies No known active allergiesdocumented as of this encounter (statuses as of 06/05/2024) Medications Medication Sig Dispensed Refills Start Date [...] Additional Information Patient taking differently: 10 UnitsSubcutaneous [id number], Reported on 05/08/2024 Metoprolol Succinate ER 25 MG Oral Tablet Extended Release 24 Hour (toPROL XL)Indications:Co ronary artery disease involving [place] coronary artery of [place] heart without angina pectoris TAKE 1 TABLET BY MOUTH EVERY DAY IN THE MORNING 90 Tablet 3 10/05/2023 Active Prasugrel HCl 10 MG Oral Tablet (Effient)Indicati ons:Coronary artery disease involving [place] coronary artery of [place] heart without angina pectoris TAKE 1 TABLET BY MOUTH EVERY DAY IN THE MORNING 90 Tablet 3 10/05/2023 Active Atorvastatin Calcium 40 MG Oral Tablet (Lipitor)Indicati ons:Dyslipidemia, goal LDL below 70 TAKE 1 TABLET BY MOUTH EVERY DAY IN THE MORNING 90 Tablet 3 10/06/2023 Active [place] 50-25 MG Oral Tablet Take 1 Tablet by mouth daily. 90 Tablet 3 12/01/2023 Active Pen [place] 32G X 4 MM Use as directed. [...] Tablet 3 03/24/2024 Active FreeStyle Carlos 2 [place] DeviceIndications :Type 2 diabetes mellitus with hemoglobin A1c goal of less than 8.0% ([facility]) Use as directed. Use to test BG E10.65 1 Each 04/11/2024 Active FreeStyle Carlos 2 SensorIndications :Type 2 diabetes mellitus with hemoglobin A1c goal of less than 8.0% ([facility]) Use as directed. Use one sensor every 14 days for blood sugar E10.65 1 Each 11 04/11/2024 Active Fiasp FlexTouch 100 UNIT/ML Subcutaneous Solution Pen-injector (Insulin Aspart (w/Niacinamide))I ndications:Type 2 diabetes mellitus with hemoglobin A1c goal of less than 8.0% ([facility]) Inject 10 Units under the skin in the morning and 10 Units at noon and 10 Units before bedtime. With meals. 15 mL 3 04/26/2024 Active Hospital, Clinic, or Other Facility Administered Medication Ordered Dose Route Frequency Start Date End Date Status Albuterol Sulfate (Proventil) (2.5 MG/3ML) 0.083% inhalation solution 2.5 mgIndications:ESRD on dialysis ([facility]),Pre-transplant evaluation for ESRD (end stage renal disease) 2.5 mg NEBULIZER PRN 03/24/2024 Acti ve Albuterol Sulfate (Proventil) (5 MG/ML) 0.5% *conc* inhalation solution 2.5 mgIndications:ESRD on dialysis ([facility]),Pre-transplant evaluation for ESRD (end stage renal disease) 2.5 mg NEBULIZER PRN 03/24/2024 Acti ve documented as of this encounter (statuses as of 06/05/2024) Active Problems Problem Noted Date Diagnosed Date ESRD on dialysis 02/02/2024 History of GI bleed 02/02/2024 Overview: Duodenal ulcer Duodenal ulcer 02/02/2024 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 05/07/2023 Recurrent major depressive disorder, in full rem ission 05/05/2022 Overweight (BMI 25.0-29.9) 05/02/2022 Dyslipidemia 05/02/2022 Coronary artery disease invo lving [place]mi[place] coronary artery of [place] heart without angina pectoris 05/02/2022 Type 2 diabetes mellitus wit h hemoglobin A1c goal of less than 8.0% 05/02/2022 Old NE (myocardial infarction) 05/02/2022 Chronic systolic (congestive) heart failure 04/14 Left bundle branch block 05/02/2022 HTN, goal below 130/80 HIV positive documented as of this encounter (statuses as of 06/05/2024) Resolved Problems Problem Noted Date Diagnosed Date Resolved Date Chronic heart failure with p reserved ejection fraction 11/24/2022 02/04/2023 Kidney disease, chronic, sta ge IV (GFR 15-29 ml/min) 05/02/2022 02/02/2024 ARDS (adult respiratory distress syndrome) 06/17/2012 05/02/2022 Acute pancreatitis 06/14/2012 Acute respiratory distress 06/14/2012 0 05/02/2022 documented as of this encounter (statuses as of 06/05/2024) Immunizations Name Administration Dates Next Due COVID-19 mRNA, LNP-s, No Pre serve, 2-Dose Series (Moderna) 11/27/2020,10/24/2020 COVID-19, MRNA-LNP, 23-24, P F, 50 MCG/0.5 mL, 12 YRS AND ABOVE, IM (MODERNA-Spikevax) 08/05/2021 Covid-19, Mrna, Lnp-s, Pf, B ivalent, 30 Mcg, IM, 12 yrs and above ([place]) 09/09/2022 Hepatitis B, 20+ yrs 08/25/2017 Meningococcal MCV4P Conjugat e Vaccine (Menactra) 08/04/2017,02/03/2013 Pneumococcal Conjugate Vacc, 13 Valent (Prevnar) 08/21/2018,07/23/2017 Pneumococcal Polysaccharide PPV23 (Pneumovax) 07/20/2012 Seasonal Influenza Virus Vac cine, Unspecified Formulation 06/19/2021,10/05/2019,08/21/2018 Seasonal Influenza, Quadriva lent Hd (Fluzone Hd) 08/12/2023,09/09/2022,06/19/2021 Seasonal Influenza, Trivalen t, (IIV3), with Preserv, (Fluzone) 06/19/2021,05/07/2020,10/05/2019,12/23,08/21/2018 TDAP (age 10 and older)(Boostrix) 07/23/2017 [...] as of this encounter Progress Notes * Vera Smith, Himanshu Echavarria MD - 06/05/2024 1:42 PM EDT CYSTOSCOPY PROCEDURE OUTPATIENT NOTES DATE: 06/05/2024 Operative Note for: Tad Silvestre Date: 06/05/2024 [facility] Preop Dx: retained right stent Postop Dx: same Operation: cystoscopy with removal of stent Surgeons: Dr. Gamez Time out performed by team Case description: clean contaminated Complications: none cipro antibiotic given CLINICAL DATA: 69 year old year old male who had Surgery on kidney stone in [place] last DECEMBER and did not have the stent removed. CT demonstrates the stent in place and no stones on 05/08/24 which I reviewed. Description of Procedure: A cystoscope was inserted per urethra under sterile conditions with localanesthesia with the following observations: EXTERNAL GENITALIA: Unremarkable. URETHRA: Without stricture or lesion. PROSTATE: Bilobar hyperplasia BLADDER: The stent was identified without calcifications and easily removed and disposed of intact. IMPRESSION: Retained stent removed PLAN: PRN follow up. Himanshu Gamez Jr, MD 06/05/2024 1:42 PM Urology Hari Roth [address] [facility] [address] [facility] [address] Antonio Colon MD [address] [place] [address] documented in this encounter Nursing Notes * Nelly Hendrix LPN - 06/05/2024 1:40 PM EDT Cystoscopy with stent removal. Consent signed. Patient's skin was prepped with hibiclens, and 2% lidocaine jelly was inserted into urethra for cystoscopy. Patient tolerated well. documented in this encounter Plan of Treatment Upcoming Encounters Date Type Department Care Team (Latest Contact Info) Description 06/12/2024 9:30 AM EDT Office Visit Gastroenterology, [facility] [address] [place] [address] Erna Srivastava CRNP [address] [place] [address] 06/26/2024 7:15 AM EDT Hospital Encounter [place] [facility] OPERATING ROOM [facility] [address] [facility] [phone] Benjamin Cartagena MD [address] [place] [address] 06/26/2024 7:15 AM EDT - 06/26/2024 9:25 AM EDT Surgery OR [facility]OM [facility] [address] [place] [phone] Benjamin Cartagena MD [address] [place], [place] [id number] 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 07/19/2024 12:50 PM EST Office Visit Vascular Surgery, [facility] [address] [place] [address] Benjamin Cartagena MD [address] [place], [place] [id number] 09/19/2024 3:30 PM EST Office Visit Cardiology, [facility] [address] [place] [address] Davy Mota MD [address] [place] [address] 10/13/2024 9:00 AM EST Office Visit Family Practice [facility] [address] [place] [address] Antonio Colon MD [address] [place] [address] Scheduled Procedures Name Priority Associated Diagnoses Date/Ti me 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 ESRD on dialysis (HCC) 06/26/2024 7:15 AM EDT COLONOSCOPY FLEXIBLE PROXIMAL DIAGNOSTIC Recall History of [...] on dialysis (HCC) End stage renal disease Retained ureteral stent- Primary Other complications due to genitourinary device, implant, and graft ESRD on dialysis (HCC) End stage renal disease documented in this encounter Advance Directives * Full Code (Latest Code Status on File) Date Activated Date Inactivated Comments 06/14/2012 6:26 PM 06/17/2012 7:43 PM This order r eflects the patients wishes and were consensually agreed upon. Healthcare Agents on File Name Relationship Healthcare Agent Relationshi p Communication Lorin Silvestre [facility] Health Care Repr esentative (appointed verbally by patient or by statute hierarchy) Care Teams Beef Cattle Farm Manager Relationship Specialty Start Date End Date Antonio Colon MD [address] [place] [address] PCP - General Family Medicine 02/12/22 documented as of this encounter
--- OUTSIDE RECORDS SUMMARY | 2024-09-21 08:07 | External Medical Summary | Summary of Care ---
Author Name Unknown Organization [facility] Address [address] [place] [address] Phone [phone] Care Team Providers Care Channel Lip Wetter Name Role Phone Antonio Colon MD Primary Care Provider [phone] Reason for Visit * Reason Onset Date Comments Appointment 02/29/2024 Encounter Details Date Type Department Care Team (Late st Contact Info) Description 02/29/2024 Telephone Cardiology, [place] [address] [place] [address] Елена Alford PA-C [address] [place] [address] Appointment Allergies No known active allergiesdocumented as of this encounter (statuses as of 05/30/2024) Medications Medication Sig Dispensed Refills Start Date [...] Additional Information Patient taking differently: 10 UnitsSubcutaneous [id number], Reported on 05/08/2024 Metoprolol Succinate ER 25 MG Oral Tablet Extended Release 24 Hour (toPROL XL)Indications:Co ronary artery disease involving [place] coronary artery of [place] heart without angina pectoris TAKE 1 TABLET BY MOUTH EVERY DAY IN THE MORNING 90 Tablet 3 10/05/2023 Active Prasugrel HCl 10 MG Oral Tablet (Effient)Indicati ons:Coronary artery disease involving [place] coronary artery of [place]ahu[place] heart without angina pectoris TAKE 1 TABLET BY MOUTH EVERY DAY IN THE MORNING 90 Tablet 3 10/05/2023 Active Atorvastatin Calcium 40 MG Oral Tablet (Lipitor)Indicati ons:Dyslipidemia, goal LDL below 70 TAKE 1 TABLET BY MOUTH EVERY DAY IN THE MORNING 90 Tablet 3 10/06/2023 Active Juluca 50-25 MG Oral Tablet Take 1 Tablet by mouth daily. 90 Tablet 3 12/01/2023 Active Pen [place] 32G X 4 MM Use as directed. Use to inject insulin 4 times daily E11.9 400 Each 3 12/02/2023 Active Sevelamer Carbonate 800 MG Oral Tablet (Renvela) Take 1 Tablet by mouth in the morning and 1 Tablet at noon and 1 Tablet in the evening. Take with meals. 02/08/2024 Active documented as of this encounter (statuses as of 05/30/2024) Active Problems Problem Noted Date Diagnosed Date [...] goal of less than 8.0% 05/02/2022 Old [place] (myocardial infarction) 05/02/2022 Chronic systolic (congestive) heart failure 04/14 Left bundle branch block 05/02/2022 HTN, goal below 130/80 HIV positive documented as of this encounter (statuses as of 05/30/2024) Resolved Problems Problem Noted Date Diagnosed Date Resolved Date Chronic heart failure with p reserved ejection fraction 11/24/2022 02/04/2023 Kidney disease, chronic, sta ge IV (GFR 15-29 ml/min) 05/02/2022 02/02/2024 ARDS (adult respiratory distress syndrome) 06/17/2012 05/02/2022 Acute pancreatitis 06/14/2012 Acute respiratory distress 06/14/2012 0 05/02/2022 documented as of this encounter (statuses as of 05/30/2024) Immunizations Name Administration Dates Next Due COVID-19 mRNA, LNP-s, No Pre serve, 2-Dose Series (Moderna) 11/27/2020,10/24/2020 COVID-19, MRNA-LNP, 23-24, P F, 50 MCG/0.5 mL, 12 YRS AND ABOVE, IM (MODERNA-Spikevax) 08/05/2021 Covid-19, Mrna, Lnp-s, Pf, B ivalent, 30 Mcg, IM, 12 yrs and above (ZhongSou) 09/09/2022 Hepatitis B, 20+ yrs 08/25/2017 Meningococcal [...] encounter Miscellaneous Notes * Telephone Encounter - Kevin Martin OSA - 02/29/2024 8:12 AM EDT Patient is ordered a Cardiac Study. Please assist patient to schedule, thank you. NM MYOCARD PERF IMG SPECT MULT STUDIES WITH PHARM INTERV [05065.02] (Order [id number]) documented in this encounter Plan of Treatment Upcoming Encounters Date Type Department Care Team (Latest Contact Info) Description 06/05/2024 1:30 PM EDT Office Visit Urology Hari Roth [address] [place] [address] Himanshu Gamez Jr., MD [address] [place] [address] 06/12/2024 9:30 AM EDT Office Visit Gastroenterology, [facility] [address] [place] [address] Erna Srivastava CRNP [address] [facility] [address] 06/26/2024 7:15 AM EDT Hospital Encounter OR [facility], OPERATING ROOM [facility] [address] [place] [phone] Benjamin Cartagena MD [address], [place] [phone] 06/26/2024 7:15 AM EDT - 06/26/2024 9:25 AM EDT Surgery OR [facility], OPERATING ROOM [facility] [address] [facility] [place] [address] Benjamin Cartagena MD [address] [place] [address] 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 07/19/2024 12:50 PM EST Office Visit Vascular Surgery, [facility] [address] [facility] [place] [address] Benjamin Cartagena MD [address] [place] [address] 09/19/2024 3:30 PM EST Office Visit Cardiology, [facility] [address] [facility] [place] [address] Davy Mota MD [address] [place] [address] 10/13/2024 9:00 AM EST Office Visit Family Practice [facility] [address] [facility] [place] [address] Antonio Colon MD 132 [facility] [place] [address] Scheduled Procedures Name Priority Associated Diagnoses Date/Ti [...] Vaccine (FLU shot) (#1) 2024 08/12/2023, 09/09/2022, 06/19/2021, Additional history exists HbA1c 10/12/2024 04/11/2024, 01/12, [...] Healthcare Agent Relationshi p Communication Lorin Silvestre [facility] Health Care Repr esentative (appointed verbally by patient or by statute hierarchy) Care Teams Channel Lip Wetter Relationship Specialty Start Date End Date Antonio Colon MD [address] [place] [address] PCP - General Family Medicine 02/12/22 documented as of this encounter
--- OUTSIDE RECORDS SUMMARY | 2024-09-21 08:07 | External Medical Summary ---
Author Name Unknown Address Unknown Organization [id number]:[facility] [place] [address] [facility] [address] Laboratory Report Ordering Provider Test Date Status RODOLFO WOLF 06/26/2024 09:58:32 Final Observation Date Value Abnormality Reference (Units ) Status Potassium, Whole Blood 06/26/2024 09:58:32 4.8 3.5-5.1 (mmol/L) Final Performing Location [facility] [place] [address] [facility] [address]
--- OUTSIDE RECORDS SUMMARY | 2024-09-21 08:07 | External Medical Summary | Summary of Care ---
Author Name Unknown Organization [facility] Address [address] [place] [address] Phone [phone] Care Team Providers Care Gasoline Pump Mechanic Name Role Phone Antonio Colon MD Primary Care Provider [phone] Reason for Visit * Reason Onset Date Comments case management 06/29/2024 Appt Encounter Details Date Type Department Care Team (Late st Contact Info) Description 06/29/2024 Telephone Infectious Disease Treatment, [place] [address] [place] [address] Gerri Rodriguez, RAILWAY SIGNALLING ENGINEER case management (Appt) Allergies No known active allergiesdocumented as of this encounter (statuses as of 06/30/2024) Medications Medication Sig Dispensed Refills Start Date [...] Additional Information Patient taking differently: 10 UnitsSubcutaneous [id number], Reported on 05/08/2024 Metoprolol Succinate ER 25 MG Oral Tablet Extended Release 24 Hour (toPROL XL)Indications:Co ronary artery disease involving [place] coronary artery of [place] heart without angina pectoris TAKE 1 TABLET BY MOUTH EVERY DAY IN THE MORNING 90 Tablet 3 10/05/2023 Active Prasugrel HCl 10 MG Oral Tablet (Effient)Indicati ons:Coronary artery disease involving [place] coronary artery of [place] heart without angina pectoris TAKE 1 TABLET BY MOUTH EVERY DAY IN THE MORNING 90 Tablet 3 10/05/2023 Active Atorvastatin Calcium 40 MG Oral Tablet (Lipitor)Indicati ons:Dyslipidemia, goal LDL below 70 TAKE 1 TABLET BY MOUTH EVERY DAY IN THE MORNING 90 Tablet 3 10/06/2023 Active Juluca 50-25 MG Oral Tablet Take 1 Tablet by mouth daily. 90 Tablet 3 12/01/2023 Active Pen [place] 32G X 4 MM Use as directed. [...] Tablet 3 03/24/2024 Active FreeStyle Carlos 2 Roseboom DeviceIndications :Type 2 diabetes mellitus with hemoglobin [...] hemoglobin A1c goal of less than 8.0% ([facility]) Inject 10 Units under the skin in the morning and 10 Units at noon and 10 Units before bedtime. With meals. 15 mL 3 04/26/2024 Active Hospital, Clinic, or Other Facility Administered Medication Ordered Dose Route Frequency Start Date End Date Status Albuterol Sulfate (Proventil) (2.5 MG/3ML) 0.083% inhalation solution 2.5 mgIndications:ESRD on dialysis ([facility]),Pre-transplant evaluation for ESRD (end stage renal disease) 2.5 mg NEBULIZER PRN 03/24/2024 Acti ve Albuterol Sulfate (Proventil) (5 MG/ML) 0.5% *conc* inhalation solution 2.5 mgIndications:ESRD on dialysis ([facility]),Pre-transplant evaluation for ESRD (end stage renal disease) 2.5 mg NEBULIZER PRN 03/24/2024 Acti ve documented as of this encounter (statuses as of 06/30/2024) Active Problems Problem Noted Date Diagnosed Date ESRD on dialysis 02/02/2024 History of GI bleed 02/02/2024 Overview: Duodenal ulcer Duodenal ulcer 02/02/2024 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 05/07/2023 Recurrent major depressive disorder, in full rem ission 05/05/2022 Overweight (BMI 25.0-29.9) 05/02/2022 Dyslipidemia 05/02/2022 Coronary artery disease invo lving [place] coronary artery of [place] heart without angina pectoris 05/02/2022 Type 2 diabetes mellitus wit h hemoglobin A1c goal of less than 8.0% 05/02/2022 Old [place] (myocardial infarction) 05/02/2022 Chronic systolic (congestive) heart failure 04/14 Left bundle branch block 05/02/2022 HTN, goal below 130/80 HIV positive documented as of this encounter (statuses as of 06/30/2024) Resolved Problems Problem Noted Date Diagnosed Date Resolved Date Chronic heart failure with p reserved ejection fraction 11/24/2022 02/04/2023 Kidney disease, chronic, sta ge IV (GFR 15-29 ml/min) 05/02/2022 02/02/2024 ARDS (adult respiratory distress syndrome) 06/17/2012 05/02/2022 Acute pancreatitis 06/14/2012 Acute respiratory distress 06/14/2012 0 05/02/2022 documented as of this encounter (statuses as of 06/30/2024) Immunizations Name Administration Dates Next Due COVID-19 mRNA, LNP-s, No Pre serve, 2-Dose Series (Moderna) 11/27/2020,10/24/2020 COVID-19, MRNA-LNP, 23-24, P F, 50 MCG/0.5 mL, 12 YRS AND ABOVE, IM (MODERNA-Spikevax) 08/05/2021 Covid-19, Mrna, Lnp-s, Pf, B ivalent, 30 Mcg, IM, 12 yrs and above (Qteros) 09/09/2022 Hepatitis B, 20+ yrs 08/25/2017 Meningococcal [...] encounter Miscellaneous Notes * Telephone Encounter - Selin Osman OSA - 06/30/2024 12:16 PM EDT Spoke to Tad, patient is scheduled 08/22 * Telephone Encounter - Gerri Rodriguez MSW - 06/29/2024 2:10 PM EDT Pt last seen in clinic 11/2023. Last attempt to contact 01/2024. CM routing encounter to Selin/RUTHANN ADMIN to reach out to pt to discuss scheduling f/up with Dr. Asencio. Time Spent: 15 minutes documented in this encounter Plan of Treatment Upcoming Encounters Date Type Department Care Team (Late st Contact Info) Description 07/04/2024 2:00 PM EDT Office Visit Gastroenterology, [facility] [address] [facility] [place] [address] Erna Srivastava CRNP 132 [facility] [place] [address] 07/19/2024 12:50 PM EST Office Visit Vascular Surgery, [facility] [address] [facility] [place] [address] Benjamin Cartagena MD [address] [place], [place] [phone] 08/22/2024 10:20 AM EST Office Visit Infectious Disease, [address] [address] Shirley Asencio MD [address] [place] [address] 09/19/2024 3:30 PM EST Office Visit Cardiology, [facility] [address] [facility] [place] [address] Davy Mota MD [address] [facility] [place] [address] 10/13/2024 9:00 AM EST Office Visit Family Practice [facility] [address] [place] [address] Antonio Colon MD [address] [place] [address] Scheduled Procedures Name Priority Associated Diagnoses Date/Ti [...] Exam 01/17/2025 01/18/2024, 11/24/2022 TSH 02/01/2025 02/02/2024, 2 10/2023, 01/18/2024 DTap/Tdap Vaccines (2 - Td [...] patient or by statute hierarchy) Care Teams Gasoline Pump Mechanic Relationship Specialty Start Date End Date Antonio Colon MD [address] [place] [address] PCP - General Family Medicine 02/12/22 documented as of this encounter
--- OUTSIDE RECORDS SUMMARY | 2024-09-21 08:07 | External Medical Summary ---
Author Name Unknown Address Unknown Organization : Laboratory Report Ordering Provider Test Date Status JAYLEEN ALAN 06/26/2024 09:56:18 Final Observation Date Value Abnormality Reference (Units ) Status Glucose Point of Care 06/26/2024 09:56:18 275 Above high normal 70-120 (mg/dL) Final Performing Location
--- OUTSIDE RECORDS SUMMARY | 2024-09-21 08:07 | External Medical Summary | Summary of Care ---
Author Name Unknown Organization [facility] Address [address] [place] [address] Phone [phone] Care Team Providers Care Marker Machine Name Role Phone Antonio Colon MD Primary Care Provider [phone] Encounter Details Date Type Department Care Team (Late st Contact Info) Description 05/01/2024 Orders Only Unspecified Department Елена Alford PA-C [address] [facility] [place] [address] Allergies No known active allergiesdocumented as of this encounter (statuses as of 06/16/2024) Medications Medication Sig Dispensed Refills Start Date [...] THE MORNING. 30 mL 1 04/29/2023 Active Metoprolol Succinate ER 25 MG Oral Tablet Extended Release 24 Hour (toPROL XL)Indications:Cor onary artery disease involving [place] coronary artery of [place] heart without angina pectoris TAKE 1 TABLET BY MOUTH EVERY DAY IN THE MORNING 90 Tablet 3 10/05/2023 Active Prasugrel HCl 10 MG Oral Tablet (Effient)Indicatio ns:Coronary artery disease involving [place] coronary artery of [place] heart without angina pectoris TAKE 1 TABLET BY MOUTH EVERY DAY IN THE MORNING 90 Tablet 3 10/05/2023 Active Atorvastatin Calcium 40 MG Oral Tablet (Lipitor)Indicatio ns:Dyslipidemia, goal LDL below 70 TAKE 1 TABLET BY MOUTH EVERY DAY IN THE MORNING 90 Tablet 3 10/06/2023 Active Juluca 50-25 MG Oral Tablet Take 1 Tablet by mouth daily. 90 Tablet 3 12/01/2023 Active Pen [place] 32G X 4 MM Use as directed. [...] Tablet 3 03/24/2024 Active FreeStyle Carlos 2 [place] DeviceIndications: Type 2 diabetes mellitus with hemoglobin A1c goal of less than 8.0% (HCC) Use as directed. Use to test BG E10.65 1 Each 04/11/2024 Active FreeStyle Carlos 2 SensorIndications: Type 2 diabetes mellitus with hemoglobin A1c goal of less than 8.0% (HCC) Use as directed. Use one sensor every 14 days for blood sugar E10.65 1 Each 04/11/2024 Active Fiasp FlexTouch 100 UNIT/ML Subcutaneous Solution Pen-injector (Insulin Aspart (w/Niacinamide))In dications:Type 2 diabetes mellitus with hemoglobin A1c goal of less than 8.0% (HCC) Inject 10 Units under the skin in the morning and 10 Units at noon and 10 Units before bedtime. With meals. 15 mL 3 04/26/2024 Active Calcitriol 0.5 MCG Oral Capsule (Rocaltrol)Indicat ions:CKD (chronic kidney disease) stage 4, GFR 15-29 ml/min ([facility]) TAKE 1 CAPSULE (0.5 MCG) BY MOUTH IN THE MORNING. 90 Capsule 5 09/15/2023 05/08/2024 Discontinue d(Discharge d) NovoLOG FlexPen 100 UNIT/ML Subcutaneous Solution Pen-injector (insulin aspart) INJECT 10 UNITS THREE TIMES A DAY WITH MEALS or as directed 15 mL 5 02/21/2024 05/08/2024 Discontinue d(Discharge d) Hospital, Clinic, or Other Facility Administered Medication Ordered Dose Route Frequency Start Date End Date Status Albuterol Sulfate (Proventil) (2.5 MG/3ML) 0.083% inhalation solution 2.5 mgIndications:ESRD on dialysis ([facility]),Pre-transplant evaluation for ESRD (end stage renal disease) 2.5 mg NEBULIZER PRN 03/24/2024 Acti ve Albuterol Sulfate (Proventil) (5 MG/ML) 0.5% *conc* inhalation solution 2.5 mgIndications:ESRD on dialysis ([facility]),Pre-transplant evaluation for ESRD (end stage renal disease) 2.5 mg NEBULIZER PRN 03/24/2024 Acti ve documented as of this encounter (statuses as of 06/16/2024) Active Problems Problem Noted Date Diagnosed Date ESRD on dialysis 02/02/2024 History of GI bleed 02/02/2024 Overview: Duodenal ulcer Duodenal ulcer 02/02/2024 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 05/07/2023 Recurrent major depressive disorder, in full rem ission 05/05/2022 Overweight (BMI 25.0-29.9) 05/02/2022 Dyslipidemia 05/02/2022 Coronary artery disease invo lving [place] coronary artery of [place] heart without angina pectoris 05/02/2022 Type 2 diabetes mellitus wit h hemoglobin A1c goal of less than 8.0% 05/02/2022 Old [place] (myocardial infarction) 05/02/2022 Chronic systolic (congestive) heart failure 04/14 Left bundle branch block 05/02/2022 HTN, goal below 130/80 HIV positive documented as of this encounter (statuses as of 06/16/2024) Resolved Problems Problem Noted Date Diagnosed Date Resolved Date Chronic heart failure with p reserved ejection fraction 11/24/2022 02/04/2023 Kidney disease, chronic, sta ge IV (GFR 15-29 ml/min) 05/02/2022 02/02/2024 ARDS (adult respiratory distress syndrome) 06/17/2012 05/02/2022 Acute pancreatitis 06/14/2012 Acute respiratory distress 06/14/2012 0 05/02/2022 documented as of this encounter (statuses as of 06/16/2024) Immunizations Name Administration Dates Next Due COVID-19 mRNA, LNP-s, No Pre serve, 2-Dose Series (Moderna) 11/27/2020,10/24/2020 COVID-19, MRNA-LNP, 23-24, P F, 50 MCG/0.5 mL, 12 YRS AND ABOVE, IM (MODERNA-Spikevax) 08/05/2021 Covid-19, Mrna, Lnp-s, Pf, B ivalent, 30 Mcg, IM, 12 yrs and above ([facility]) 09/09/2022 Hepatitis B, 20+ yrs 08/25/2017 Meningococcal [...] as of this encounter Miscellaneous Notes * Result Encounter Note - Елена Alford PA-C - 05/03/2024 1:46 PM EDT Nuclear stress test with myocardial scar, no ischemia. No further testing indicated at this time. documented in this encounter Plan of Treatment Upcoming Encounters Date Type Department Care Team (Latest Contact Info) Description 06/26/2024 7:15 AM EDT Hospital Encounter [place] [facility] [address] [place] [phone] Benjamin Cartagena MD [address] [place], [place] [phone] 06/26/2024 7:15 AM EDT - 06/26/2024 9:25 AM EDT Surgery OR C, OPERATING ROOM [facility] [address] [place] [facility] [phone] Benjamin Cartagena MD [address] [place], [place] [id number] 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 07/04/2024 2:00 PM EDT Office [facility] [place] [address] Erna [facility]astava CR[facility] [place] [address] 07/19/2024 12:50 PM EST Office Visit [facility]ascular Surgery, [facility] [place] [address] Benjamin Cartagena MD [address] [place] [address] 09/19/2024 3:30 PM EST Office Visit Cardiology, [facility] [address] [place] [address] Davy Mota MD [address] [place] [address] 10/13/2024 9:00 AM EST Office Visit Family Practice [facility] [address] [place] [address] Antonio Colon MD [address] [place] [address] Scheduled Procedures Name Priority Associated Diagnoses Date/Ti [...] Procedure Name Priority Date/Time Associated Diagnosis Comments NM MYOCARDIAL PERFUSION IMAGING SPECT MULTIPLE STUDIES WITH PHARMACOLOGIC INTERVENTION Routine 05/01/2024 8:41 AM EDT documented in this encounter Results * NM MYOCARDIAL PERFUSION IMAGING SPECT MULTIPLE STUDIES WITH PHARMACOLOGIC INTERVENTION (05/01/2024 8:41 AM EDT) 05/01/2024 8:41 AM EDT Елена Alford PA-C RAD NUCLEAR MED [facility] documented in this encounter Advance Directives * Full Code (Latest Code Status on File) Date Activated Date Inactivated Comments 06/14/2012 6:26 PM 06/17/2012 7:43 PM This order r eflects the patients wishes and were consensually agreed upon. Healthcare Agents on File Name Relationship Healthcare Agent Relationshi p Communication Lorin Silvestre [facility] Health Care Repr esentative (appointed verbally by patient or by statute hierarchy) Care Teams Marker Machine Relationship Specialty Start Date End Date Antonio Colon MD [address] [place] [address] PCP - General Family Medicine 02/12/22 documented as of this encounter
--- OUTSIDE RECORDS SUMMARY | 2024-09-21 08:07 | External Medical Summary ---
Author Name Unknown Address Unknown Organization : Laboratory Report Ordering Provider Test Date Status JAYLEEN ALAN 06/26/2024 12:26:54 Final Observation Date Value Abnormality Reference (Units ) Status Glucose Point of Care 06/26/2024 12:26:54 201 Above high normal 70-120 (mg/dL) Final Performing Location
--- OUTSIDE RECORDS SUMMARY | 2024-09-21 08:07 | External Medical Summary | Summary of Care ---
Author Name Unknown Organization [facility] Address [address] [place] [address] Phone [phone] Care Team Providers Care Liquor Inspector Name Role Phone Antonio Colon MD Primary Care Provider [phone] Reason for Visit * Reason Comments Post-Op Encounter Details Date Type Department Care Team (Late st Contact Info) Description 07/19/2024 12:50 PM EST Office Visit Vascular Surgery, [facility] [address] [place] [address] Benjamin Cartagena MD [address] [place] [address] ESRD on dialysis ([facility])*; AVF (arteriovenous fistula) ([facility]) Allergies No known active allergiesdocumented as of this encounter (statuses as of 07/19/2024) Medications Medication Sig Dispensed Refills Start Date [...] Additional Information Patient taking differently: 10 UnitsSubcutaneous [id number], Reported on 05/08/2024 Metoprolol Succinate ER 25 MG Oral Tablet Extended Release 24 Hour (toPROL XL)Indications:Co ronary artery disease involving [place] coronary artery of [place] heart without angina pectoris TAKE 1 TABLET BY MOUTH EVERY DAY IN THE MORNING 90 Tablet 3 10/05/2023 Active Prasugrel HCl 10 MG Oral Tablet (Effient)Indicati ons:Coronary artery disease involving [place] coronary artery of [place] heart without angina pectoris TAKE 1 [...] daily. 90 Tablet 3 12/01/2023 Active Pen Roland 32G X 4 MM Use as directed. [...] Tablet 3 03/24/2024 Active FreeStyle Carlos 2 [place] DeviceIndications :Type 2 diabetes mellitus with hemoglobin A1c goal of less than 8.0% ([facility]) Use as directed. Use to test BG E10.65 1 Each 04/11/2024 Active FreeStyle Carlos 2 SensorIndications :Type 2 diabetes mellitus with hemoglobin A1c goal of less than 8.0% ([facility]) Use as directed. Use one sensor every 14 days for blood sugar E10.65 1 Each 11 04/11/2024 Active Fiasp FlexTouch 100 UNIT/ML Subcutaneous Solution Pen-injector (Insulin Aspart (w/Niacinamide))I ndications:Type 2 diabetes mellitus with hemoglobin A1c goal of less than 8.0% ([facility]) Inject 10 Units under the skin in the morning and 10 Units at noon and 10 Units before bedtime. With meals. 15 mL 3 04/26/2024 Active Hospital, Clinic, or Other Facility Administered Medication Ordered Dose Route Frequency Start Date End Date Status Albuterol Sulfate (Proventil) (2.5 MG/3ML) 0.083% inhalation solution 2.5 mgIndications:ESRD on dialysis ([facility]),Pre-transplant evaluation for ESRD (end stage renal disease) 2.5 mg NEBULIZER PRN 03/24/2024 Acti ve Albuterol Sulfate (Proventil) (5 MG/ML) 0.5% *conc* inhalation solution 2.5 mgIndications:ESRD on dialysis ([facility]),Pre-transplant evaluation for ESRD (end stage renal disease) 2.5 mg NEBULIZER PRN 03/24/2024 Acti ve documented as of this encounter (statuses as of 07/19/2024) Active Problems Problem Noted Date Diagnosed Date AVF (arteriovenous fistula) 07/19/2024 ESRD on dialysis 02/02/2024 History of GI bleed 02/02/2024 Overview: Duodenal ulcer Duodenal ulcer 02/02/2024 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 05/07/2023 Recurrent major depressive disorder, in full rem ission 05/05/2022 Overweight (BMI 25.0-29.9) 05/02/2022 Dyslipidemia 05/02/2022 Coronary artery disease invo lving [place] coronary artery of [place] heart without angina pectoris 05/02/2022 Type 2 diabetes mellitus wit h hemoglobin A1c goal of less than 8.0% 05/02/2022 [place] (myocardial infarction) 05/02/2022 Chronic systolic (congestive) heart failure 04/14 Left bundle branch block 05/02/2022 HTN, goal below 130/80 HIV positive documented as of this encounter (statuses as of 07/19/2024) Resolved Problems Problem Noted Date Diagnosed Date Resolved Date Chronic heart failure with p reserved ejection fraction 11/24/2022 02/04/2023 Kidney disease, chronic, sta ge IV (GFR 15-29 ml/min) 05/02/2022 02/02/2024 ARDS (adult respiratory distress syndrome) 06/17/2012 05/02/2022 Acute pancreatitis 06/14/2012 Acute respiratory distress 06/14/2012 0 05/02/2022 documented as of this encounter (statuses as of 07/19/2024) Immunizations Name Administration Dates Next Due COVID-19 [...] 30 S tarted: 1975 Smokeless Tobacco: Never Tobacco Cessation:Counseling Given: No Alcohol Use Standard Drinks/Week Comments Yes 11.7 [...] Reading Time Taken Comments Blood Pressure 118/72 07/19/2024 1:04 PM EST Pulse 74 07/19/2024 1:04 PM EST Temperature - - Respiratory Rate - - Oxygen Saturation - - Inhaled Oxygen Concentration - - Weight 77.9 kg (171 lb 11.2 oz) 07/19/2024 1:04 PM EST Height - - Body Mass Index 25.36 06/26/2024 8:23 AM EDT documented in this encounter Progress Notes * Librado Lake PA-C - 07/19/2024 12:50 PM EST Images from the original note were not included. Date of Service: 07/19/2024 1:18 PM Tad Silvestre is a 69 year old male. Patient being seen in consultation at the request of Antonio Colon MD Chief Complaint: Post op visit S/P Left RC AVF for HD on 06/26/[address] Cartagena. No left hand pain No issues with TDC HPI: Former smoker with DM, HFnEF, CAD/prior [place]/5 stents, HTN, HLD, PUD, HIV and ESRD on HD On kidney transplant list Has right TDC in place Receives HD [facility] in [place], T/H/Sat Patient is RIGHT handed PPM/ICD: No Raynaud's of hands/feet: No Retired, works in [employer] for [employer] in [facility] Current Outpatient Medications Medication Sig Dispense Refill [...] THE SKIN 22 UNITS IN THE MORNING. (Patient taking differently: Inject 10 Units under the skin every morning.) 30 mL 1 Metoprolol Succinate ER 25 MG Oral Tablet [...] by mouth daily. 90 Tablet 3 Pen Roland 32G X 4 MM Use as directed. [...] morning. 90 Tablet 3 FreeStyle Carlos 2 [place] Device Use as directed. Use to test [...] before bedtime. With meals. 15 mL 3 Current Facility-Administered Medications Medication Dose Route Frequency Provider Last Rate Last Admin Albuterol Sulfate (Proventil) (2.5 MG/3ML) 0.083% inhalation solution 2.5 mg 2.5 mg Nebulizer PRN Albuterol Sulfate (Proventil) (5 MG/ML) 0.5% *conc* inhalation solution 2.5 mg 2.5 mg Nebulizer PRN2.5 mg at 04/27/24 1108 Review of patient's allergies indicates: No Known Allergies Patient Active Problem List Diagnosis HTN, goal below 130/80 HIV positive ([facility]) Overweight (BMI 25.0-29.9) Dyslipidemia Coronary artery disease involving [place] coronary artery of [place] heart without angina pectoris Type 2 diabetes mellitus with hemoglobin A1c goal of less than 8.0% ([facility]) [place] (myocardial infarction) Chronic systolic (congestive) heart failure ([facility]) Left bundle branch block Recurrent major depressive disorder, in full remission ([facility]) 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 ESRD on dialysis ([facility]) History of GI bleed Duodenal ulcer Past Medical History: Diagnosis Date Chronic heart failure with preserved ejection fraction ([facility]) 11/24/2022 Coronary artery disease involving [place] coronary artery of [place] heart without angina pectoris 05/02/2022 Duodenal ulcer 02/02/2024 Dyslipidemia 05/02/2022 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 05/07/2023 History of GI bleed 02/02/2024 Duodenal ulcer HIV positive ([facility]) Hypertension Kidney disease, chronic, stage IV (GFR 15-29 ml/min) ([facility]) 05/02/2022 Left bundle branch block 05/02/2022 [place] (myocardial infarction) 05/02/2022 Overweight (BMI 25.0-29.9) 05/02/2022 Recurrent major depressive disorder, in full remission ([facility]) 05/05/2022 Systolic and diastolic CHF, chronic ([facility]) 05/02/2022 Type 2 diabetes mellitus with hemoglobin A1c goal of less than 8.0% ([facility]) 05/02/2022 Past Surgical History: Procedure Laterality Date AV ACCESS, AUTOGENOUS GRAFT Left 06/26/2024 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 performed by Benjamin Cartagena MD at OR [facility] COLONOSCOPY, DIAGNOSTIC (RECTUM) N/A 02/19/2023 poor prep/nodular mucosa ascending colon/hemorrhoids/biopsies show adenomatous polyps, mild active inflammation/recall 1 year/Colonoscopy/[place] NONE Family History Problem Relation Name Age of [...] Stability Do you currently live in a mcfp or have no steady place to sleep [...] pain, shortness of breath, palpitations, angina or [place] Neurological: Negative for stroke, TIA, amaurosis fugax All other systems negative except for those noted above and in the history of present illness (HPI). GENERAL MULTI-SYSTEM PHYSICAL EXAM: VITAL SIGNS: BP 118/72 (BP Site: Right Arm, BP Position: Sitting, BP Cuff Size: Regular) | Pulse 74 | Wt 77.9 kg(171 lb 11.2 oz) | BMI 25.36 kg/m | BSA 1.95 m GENERAL MULTI-SYSTEM [...] Motor function intact, and Sensory exam intact LEFT ARM/HAND: Warm hand. AVF incision healed. +bruit/thrill PULSE SCALE: Carotid Right:----Bruit: No Left:----Bruit: No Dorsalis Pedis Right: 3 Left: 3 DIAGNOSTIC [...] 0.39 cm L Radial Art 0.32 cm 01/28/21 Carotid Duplex ([facility], report only): <50% B/L ICA stenosis 09/17/19 CT Abd/Pelvis ([facility], report only): No mention of AAA LABS: [...] URINE - [facility] 37 08/12/2022 03:11 PM Lab Results Component Value Date/Time LDL [...] clinical labs were reviewed by me on 07/19/2024 IMPRESSIONS: S/P Left RC AVF for HD on 06/26/[address] Cartagena. Doing well post op AVF needs more time to mature ESRD, on HD via TDC Former smoker DM HFnEF CAD/prior [place]/RCA stenting HTN HLD PUD HIV PLAN: Patient was counseled on concept of AVF, maturation times of AVF, failure rates of AVF to fully mature, halfway failure rates of AVF, physiologic reality of arterial steal due to AVF, and both concept & need of fistulograms. The patient was seen and examined with Benjamin Cartagena MD. RTC 1 month, AVF check, 08/23/24 CHERYL Sanchez-C Section of Vascular [place] [address] [phone] I have reviewed the advanced practitioner's documentation on the date of service referenced in note, and I agree with, and take responsibility for the plan of care. 69 year old male on dialysis via TDC, now s/p L RCAVF creation Incision healing nicely Still a little small for dialysis access Will give another few weeks to mature, if not adequate consider fistulogram/BAM Benjamin Cartagena MD Section of Vascular [place] [address] [phone] documented in this encounter Nursing Notes * Any Allen CMA - 07/19/2024 1:05 PM EST Reviewed the option of transferring scripts to [facility] pharmacy with patient and / or family. Patient stated no change in medications. Any Allen CMA documented in this encounter Plan of Treatment Upcoming Encounters Date Type Department Care Team (Late st Contact Info) Description 08/22/2024 10:20 AM EST Office Visit Infectious Disease, [address] [phone] Shirley Asencio MD [address] [place] [address] 08/23/2024 10:10 AM EST Office Visit Vascular Surgery, [facility] [address] [facility] [address] Simeon Perez MD [address] [place], [place] [id number] 09/19/2024 3:30 PM EST Office Visit Cardiology, [facility] [address] [place] [address] Davy Mota MD [address] [place] [address] 10/13/2024 9:00 AM EST Office Visit Family Practice [facility] [address] [place] [address] Antonio Colon MD [address] [place] [address] Scheduled Procedures Name Priority Associated Diagnoses Date/Ti [...] dialysis (HCC)- Primary End stage renal disease AVF (arteriovenous fistula) (HCC) Arteriovenous fistula, acquired documented in this encounter Advance Directives * Full Code (Latest Code Status on File) Date Activated Date Inactivated Comments 06/14/2012 6:26 PM 06/17/2012 7:43 PM This order r eflects the patients wishes and were consensually agreed upon. Healthcare Agents on File Name Relationship Healthcare Agent Relationshi p Communication Lorin Silvestre [facility] Health Care Repr esentative (appointed verbally by patient or by statute hierarchy) Care Teams Liquor Inspector Relationship Specialty Start Date End Date Antonio Colon MD [address] [address] PCP - General Family Medicine 02/12/22 documented as of this encounter"
--- OUTSIDE RECORDS SUMMARY | 2024-09-21 08:08 | External Medical Summary | Summary of Care ---
Author Name Unknown Organization [facility] Address [address] [place] [address] Phone [phone] Care Team Providers Care Deep Sea Diver Name Role Phone Antonio Colon MD Primary Care Provider [phone] Reason for Visit * Reason Onset Date Comments Test Results 05/11/2024 Unexpected or In determinate Result Encounter Details Date Type Department Care Team (Late st Contact Info) Description [facility] [address] [place] [address] Librado Stubbs MD [address] [place] [address] Test Results (Unexpected or Indeterminate ... Allergies No known active allergiesdocumented as of this encounter (statuses as of 05/11/2024) Medications Medication Sig Dispensed Refills Start Date [...] Additional Information Patient taking differently: 10 UnitsSubcutaneous [id number], Reported on 05/08/2024 Metoprolol Succinate ER 25 MG Oral Tablet Extended Release 24 Hour (toPROL XL)Indications:Co ronary artery disease involving [place] coronary artery of [place] heart without angina pectoris TAKE 1 TABLET BY MOUTH EVERY DAY IN THE MORNING 90 Tablet 3 10/05/2023 Active Prasugrel HCl 10 MG Oral Tablet (Effient)Indicati ons:Coronary artery disease involving [place] coronary artery of [place] heart without angina pectoris TAKE 1 TABLET BY MOUTH EVERY DAY IN THE MORNING 90 Tablet 3 10/05/2023 Active Atorvastatin Calcium 40 MG Oral Tablet (Lipitor)Indicati ons:Dyslipidemia, goal LDL below 70 TAKE 1 TABLET BY MOUTH EVERY DAY IN THE MORNING 90 Tablet 3 10/06/2023 Active Juluca 50-25 MG Oral Tablet Take 1 Tablet by mouth daily. 90 Tablet 3 12/01/2023 Active Pen [place] 32G X 4 MM Use as directed. [...] Tablet 3 03/24/2024 Active FreeStyle Carlos 2 Gray DeviceIndications :Type 2 diabetes mellitus with hemoglobin A1c goal of less than 8.0% ([facility]) Use as directed. Use to test BG E10.65 1 Each 04/11/2024 Active FreeStyle Carlos 2 SensorIndications :Type 2 diabetes mellitus with hemoglobin A1c goal of less than 8.0% ([facility]) Use as directed. Use one sensor every 14 days for blood sugar E10.65 1 Each 11 04/11/2024 Active Fiasp FlexTouch 100 UNIT/ML Subcutaneous Solution Pen-injector (Insulin Aspart (w/Niacinamide))I ndications:Type 2 diabetes mellitus with hemoglobin A1c goal of less than 8.0% ([facility]) Inject 10 Units under the skin in the morning and 10 Units at noon and 10 Units before bedtime. With meals. 15 mL 3 04/26/2024 Active Hospital, Clinic, or Other Facility Administered Medication Ordered Dose Route Frequency Start Date End Date Status Albuterol Sulfate (Proventil) (2.5 MG/3ML) 0.083% inhalation solution 2.5 mgIndications:ESRD on dialysis ([facility]),Pre-transplant evaluation for ESRD (end stage renal disease) 2.5 mg NEBULIZER PRN 03/24/2024 Acti ve Albuterol Sulfate (Proventil) (5 MG/ML) 0.5% *conc* inhalation solution 2.5 mgIndications:ESRD on dialysis ([facility]),Pre-transplant evaluation for ESRD (end stage renal disease) 2.5 mg NEBULIZER PRN 03/24/2024 Acti ve documented as of this encounter (statuses as of 05/11/2024) Active Problems Problem Noted Date Diagnosed Date ESRD on dialysis 02/02/2024 History of GI bleed 02/02/2024 Overview: Duodenal ulcer Duodenal ulcer 02/02/2024 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 05/07/2023 Recurrent major depressive disorder, in full rem ission 05/05/2022 Overweight (BMI 25.0-29.9) 05/02/2022 Dyslipidemia 05/02/2022 Coronary artery disease invo lving [place] coronary artery of [place] heart without angina pectoris 05/02/2022 Type 2 diabetes mellitus wit h hemoglobin A1c goal of less than 8.0% 05/02/2022 Old [place] (myocardial infarction) 05/02/2022 Chronic systolic (congestive) heart failure 04/14 Left bundle branch block 05/02/2022 HTN, goal below 130/80 HIV positive documented as of this encounter (statuses as of 05/11/2024) Resolved Problems Problem Noted Date Diagnosed Date Resolved Date Chronic heart failure with p reserved ejection fraction 11/24/2022 02/04/2023 Kidney disease, chronic, sta ge IV (GFR 15-29 ml/min) 05/02/2022 02/02/2024 ARDS (adult respiratory distress syndrome) 06/17/2012 05/02/2022 Acute pancreatitis 06/14/2012 Acute respiratory distress 06/14/2012 0 05/02/2022 documented as of this encounter (statuses as of 05/11/2024) Immunizations Name Administration Dates Next Due COVID-19 mRNA, LNP-s, No Pre serve, 2-Dose Series (Moderna) 11/27/2020,10/24/2020 COVID-19, MRNA-LNP, 23-24, P F, 50 MCG/0.5 mL, 12 YRS AND ABOVE, IM (MODERNA-Spikevax) 08/05/2021 Covid-19, Mrna, Lnp-s, Pf, B ivalent, 30 Mcg, IM, 12 yrs and above ([employer]) 09/09/2022 Hepatitis B, 20+ yrs 08/25/2017 Meningococcal [...] encounter Miscellaneous Notes * Telephone Encounter - Marie Garay OSA - 05/11/2024 10:11 AM EDT Toan- The radiologist discovered an unexpected or indeterminate finding on Tad Silvestre ([id number]) and asks that you review the following report. Study Type: CT ABD/PELVIS WO IV/ORAL CONTRAST Date of Study: 05/08/2024 IMPRESSION 1. Moderate atherosclerotic disease with less calcifications in the left common and external iliac arteries. 2. 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 No local prior exams to document stability. Lymphoproliferative disorder would be a differential consideration. Comparison with outside studies would be helpful if available. 3. Additional findings in full report. Please respond to this encounter to acknowledge receipt of this message and take responsibility to ensure this report is reviewed. Thank you, MORGAN Osorio Client Service [facility] documented in this encounter Plan of Treatment Upcoming Encounters Date Type Department Care Team (Latest Contact Info) Description 05/17/2024 7:15 AM EDT Cardiac Studies Cardiac Studies, [facility], [place] [address] [address] 05/19/2024 9:30 AM EDT Office Visit Urology Hari Roth [address] [address] Marie Tran PA-C [address] [address] 05/19/2024 6:10 PM EDT [facility] [place] [address] [address] [facility] [address] [address] 05/23/2024 10:20 AM EDT Office Visit NephrologyMadeline [address] [place] [address] Tesfaye Morris MD [address] [facility] [place] [address] 06/12/2024 9:30 AM EDT Office Visit Gastroenterology, [facility] [address] [place] [address] Erna Srivastava CRNP [address] [place] [address] 06/26/2024 7:15 AM EDT Hospital Encounter OR [facility], OPERATING ROOM [facility] [address] [place] [facility] [place] [address] Benjamin Cartagena MD [address] [place] [facility] [place] [address] 06/26/2024 7:15 AM EDT - 06/26/2024 9:25 AM EDT Surgery OR [facility], OPERATING ROOM [facility], [facility] [address] [place] [facility] [place] [id number] Benjamin Cartagena MD [address] [place] [facility] [place] [address] 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 07/19/2024 12:50 PM EST Office Visit Vascular Surgery, [facility] [address] [place] [address] Benjamin Cartagena MD [address] [place] [facility] [place] [address] 09/19/2024 3:30 PM EST Office Visit Cardiology, [facility] [address] [place] [address] Davy Mota MD [address] [place] [address] 10/13/2024 9:00 AM EST Office Visit Family Practice [facility] [address] [place] [address] Antonio Colon MD [address] [place], [place] [id number] Scheduled Procedures Name Priority Associated Diagnoses Date/Ti [...] 02/03/2013 COVID-19 Vaccine ( season) 2023 09/09/2022, 08/05/2021, 11/27/2020, Additional history exists Influenza Vaccine (FLU shot) (#1) 2024 08/12/2023, 09/09/2022, 06/19/2021, Additional history exists HbA1c 10/12/2024 04/11/2024, 2 10/2023, 05/07/2023, Additional history exists Colonoscopy 01/06/2025 01/07/2024, 060 [...] Healthcare Agent Relationshi p Communication Lorin Silvestre [facility] Health Care Repr esentative (appointed verbally by patient or by statute hierarchy) Care Teams Deep Sea Diver Relationship Specialty Start Date End Date Antonio Colon MD [address] [place] [address] PCP - General Family Medicine 02/12/22 documented as of this encounter
--- OUTSIDE RECORDS SUMMARY | 2024-09-21 08:08 | External Medical Summary | Summary of Care ---
Author Name Unknown Organization [facility] Address [address] [place] [address] Phone [phone] Care Team Providers Care Corporate Accounting Manager Name Role Phone Antonio Colon MD Primary Care Provider [phone] Reason for Visit * Reason Comments Pre-Transplant Evaluation Encounter Details Date Type Department Care Team (Late st Contact Info) Description 05/08/2024 9:00 AM EDT Office Visit Transplant Clinic, [place] [address] [place] [address] Lydia Cavazos MD [address] [place] [address] Zenon Tierney MD [address] [place] [address] Isabel Nurse Renal Transplant [address] [place] [address] Noni Peters LSW [address] [place] [address] Type 2 diabetes mellitus with hemoglobin A1c goal of less than 8.0% (FORMERLY [facility])* Allergies No known active allergiesdocumented as of this encounter (statuses as of 05/12/2024) Medications Medication Sig Dispensed Refills Start Date [...] UNITS IN THE MORNING. 30 mL 1 3 Active Additional Information Patient taking differently: 10 UnitsSubcutaneous [id number], Reported on 05/08/2024 Metoprolol Succinate ER 25 MG Oral Tablet Extended Release 24 Hour (toPROL XL)Indications:C oronary artery disease involving confederated goshute coronary artery of confederated goshute heart without angina pectoris TAKE 1 TABLET BY MOUTH EVERY DAY IN THE MORNING 90 Tablet 3 4 Active Prasugrel HCl 10 MG Oral Tablet (Effient)Indicat ions:Coronary artery disease involving confederated goshute coronary artery of confederated goshute heart without angina pectoris TAKE 1 TABLET [...] daily. 90 Tablet 3 4 Active Pen Dallas 32G X 4 MM Use as directed. [...] Tablet 3 4 Active FreeStyle Carlos 2 Holt DeviceIndication s:Type 2 diabetes mellitus with hemoglobin A1c goal of less than 8.0% ([facility]) Use as directed. Use to test BG E10.65 1 Each 4 Active FreeStyle Carlos 2 SensorIndication s:Type 2 diabetes mellitus with hemoglobin A1c goal of less than 8.0% ([facility]) Use as directed. Use one sensor every 14 days for blood sugar E10.65 1 Each 11 4 Active Fiasp FlexTouch 100 UNIT/ML Subcutaneous Solution Pen-injector (Insulin Aspart (w/Niacinamide)) Indications:Type 2 diabetes mellitus with hemoglobin A1c goal of less than 8.0% ([facility]) Inject 10 Units under the skin in the morning and 10 Units at noon and 10 Units before bedtime. With meals. 15 mL 3 4 Active Calcitriol 0.5 MCG Oral Capsule (Rocaltrol)Indic ations:CKD (chronic kidney disease) stage 4, GFR 15-29 ml/min ([facility]) TAKE 1 CAPSULE (0.5 MCG) BY MOUTH IN THE MORNING. 90 Capsule 5 4 05/08/20 24 Discontinu ed([facility]) NovoLOG FlexPen 100 UNIT/ML Subcutaneous Solution Pen-injector (insulin aspart) INJECT 10 UNITS THREE TIMES A DAY WITH MEALS or as directed 15 mL 5 4 05/08/20 24 Discontinu ed([facility]) Hospital, Clinic, or Other Facility Administered Medication Ordered Dose Route Frequency Start Date End Date Status Albuterol Sulfate (Proventil) (2.5 MG/3ML) 0.083% inhalation solution 2.5 mgIndications:ESRD on dialysis ([facility]),Pre-transplant evaluation for ESRD (end stage renal disease) 2.5 mg NEBULIZER PRN 03/24/2024 Acti ve Albuterol Sulfate (Proventil) (5 MG/ML) 0.5% *conc* inhalation solution 2.5 mgIndications:ESRD on dialysis ([facility]),Pre-transplant evaluation for ESRD (end stage renal disease) 2.5 mg NEBULIZER PRN 03/24/2024 Acti ve documented as of this encounter (statuses as of 05/12/2024) Active Problems Problem Noted Date Diagnosed Date ESRD on dialysis 02/02/2024 History of GI bleed 02/02/2024 Overview: Duodenal ulcer Duodenal ulcer 02/02/2024 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 05/07/2023 Recurrent major depressive disorder, in full rem ission 05/05/2022 Overweight (BMI 25.0-29.9) 05/02/2022 Dyslipidemia 05/02/2022 Coronary artery disease invo lving confederated goshute coronary artery of confederated goshute heart without angina pectoris 05/02/2022 Type 2 diabetes mellitus wit h hemoglobin A1c goal of less than 8.0% 05/02/2022 Old [place] (myocardial infarction) 05/02/2022 Chronic systolic (congestive) heart failure 04/14 Left bundle branch block 05/02/2022 HTN, goal below 130/80 HIV positive documented as of this encounter (statuses as of 05/12/2024) Resolved Problems Problem Noted Date Diagnosed Date Resolved Date Chronic heart failure with p reserved ejection fraction 11/24/2022 02/04/2023 Kidney disease, chronic, sta ge IV (GFR 15-29 ml/min) 05/02/2022 02/02/2024 ARDS (adult respiratory distress syndrome) 06/17/2012 05/02/2022 Acute pancreatitis 06/14/2012 Acute respiratory distress 06/14/2012 0 05/02/2022 documented as of this encounter (statuses as of 05/12/2024) Immunizations Name Administration Dates Next Due COVID-19 mRNA, LNP-s, No Pre serve, 2-Dose Series (Moderna) 11/27/2020,10/24/2020 COVID-19, MRNA-LNP, 23-24, P F, 50 MCG/0.5 mL, 12 YRS AND ABOVE, IM (MODERNA-Spikevax) 08/05/2021 Covid-19, Mrna, Lnp-s, Pf, B ivalent, 30 Mcg, IM, 12 yrs and above (Wavecraft) 09/09/2022 Hepatitis B, 20+ yrs 08/25/2017 Meningococcal [...] Sign Reading Time Taken Comments Blood Pressure 140/85 05/08/2024 9:04 AM EDT Pulse 77 05/08/2024 9:04 AM EDT Temperature 36.6 C (97.9 F) 05/08/2024 9:04 AM ED T Respiratory Rate - - Oxygen Saturation - - Inhaled Oxygen Concentration - - Weight 76.9 kg (169 lb 9.6 oz) 05/08/2024 9:04 A M EDT Height 175 cm (5' 8.9") 05/08/2024 9:04 AM EDT Body Mass Index 25.12 05/08/2024 9:04 AM EDT documented in this encounter Progress Notes * Noni Peters LSW - 05/09/2024 3:04 PM EDT Patient identified by verbal name and date of . BACKGROUND INFO DIAGNOSIS: Pre-Renal Transplant Evaluation PRESENT AT INTERVIEW: Patient and his sisterLorin CURRENT SOCIAL STATUS: Single, Never HOUSEHOLD COMPOSITION: Patient reports he lies alone in an apartment. He reports no significant issues or concerns with same. RELEVANT SOCIAL/FAMILY HISTORY: Patient reports he grew up on a farm in [place]. His mother is . His father is 92 and relatively healthy. He has one sister, Lorin who accompanies him today and lives locally. Patient reports after graduated college, he moved to [place] and then to [facility] in [place]. He lived/worked in the city for 40 years before moving to [place]. He has never been and has no children. He has one niece that he has been happy to spoil. CURRENT LEVEL OF FUNCTIONING: Patient remains functionally independent. EDUCATION: Patient reports he graduated from [employer] with a degree in Maori. 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 SPOUSES EMPLOYMENT STATUS: N/A INCOME/FINANCIAL STATUS: Patient does not report any specific financial concerns or hardships. INSURANCE COVERAGE/COPAY ISSUE: No issues noted on interview today. TREATMENT MODALITY: Patient receives hemo dialysis treatments in the [facility] unit in [place]. PROBLEMS IDENTIFIED BY DIALYSIS UNIT: No issues noted. PREVIOUS TRANSPLANTS: none EMOTIONAL/PSYCHOLOGICAL PROFILE UNDERSTANDING OF ILLNESS/TRANSPLANT PROCESS: Patient and his sister were able to verbalize an adequate understanding of his illness as well as the transplant process. BARRIERS TO LEARNING: No issues noted on interview today. Patient responds to written/verbal information. IMPRESSION: Mr. Silvestre presents today with pleasant mood and congruent affect. He is alert and oriented in all spheres and maintains good eye contact. He is casually dressed and neatly groomed. His speech is of normal rate and tone and his thoughts are well organized. His mood remains stable and he is easy to engage. SOCIAL PROBLEMS IDENTIFIED PSYCHIATRIC ILLNESS: Patient reports he has managed depression for much of his adult life. He has taken Fluoxetine 20mg for several years with no change in dose. He is able to verbalize an excellent understanding of his mood and has good insight to when he needs a change or some help. S/I- In the past, not for years. H/I- Denies DRUG & ALCOHOL USE: Patient reports he was never much of a drinker. He acknowledges a period ofdrug use when he was younger but denies any in years. MEDICAL NON-COMPLIANCE: Denies and none noted. COPING SKILLS IDENTIFIED: Patient reports he enjoys his local area and appears to have a close and mutually supportive relationships with his sister, their father and her family. He reports he is planning to go to [employer] games this Fall and enjoys spending time with friends and family. He notes he does till get involved in some work related projects but it is at his discretion. He notes he is also politically active. DISCUSSION OF AN LRD: None discussed today. Durable Healthcare Power of Director Erp discussed; information provided. SOCIAL WORK ASSESSMENT/RECOMMENDATION: Social Support: Low - Good support, stable committed relationship; caregiver(s) able to provide assistance Financial/Insurance: Low - Stable access to healthcare (insurance); work history; good resources;adequate income to meet needs Compliance: Low - Good understandingof medical situation;hx of good follow through on medical recommendations; ability to self manage; able to manage meds and treatment plan Functional Status: Low - Active; excercises; independent Cognitive function: Low - No evidences of cognitive decline/memory deficits; executive functions (ability to organize and follow through with new information) seem intact; no current/historical mental retardation/impairments in adaptive functioning; no current or historical alternative/adaptive learning plans; such as IEP Mental Health: Moderate - Past history of mental illness; Current treatment for mental illness, symptoms well managed; Compliance with past treatment; Treated/resolved history of abuse, neglect, lossor other trauma Coping: Low - Identifiable healthy coping skills; History of coping well with stress; Insightful, able to identify needs and seek assistance Substance Abuse: Low - No use or limited use of alcohol; No drug use, including tobacco; No evidence of history of abuse/dependency Legal Issues: Low - Never any legal issues Understanding of Transplant process: Low - Realistic; aware of risks and benefits Motivation for transplant: Low - Self-motivated for transplant as part of continuum of care Overall, per above, patient has a low psychosocial risk profile score and seems to be an appropriate transplant candidate from a psychosocial perspective at this time. Noni Peters LCSW Patient needs to be presented at Selection Conference within 3 months of this psychosocial evaluation. If there is a delay, additional Social Work consultation may be required. * Lydia Cavazos MD - 05/08/2024 11:06 AM EDT Initial Transplant Evaluation Tad is a 69 year old male here for evaluation to be a transplant recipient, referred by: Antonio Colon MD I will communicate with the referring provider by letter and/or shared electronic medical record. Dr Tesfaye Morris is his Secretary To Board Of Commissioners --according to his note from 07/2022, patient was living in [place], recently moved to [place] with a creatinine around 4 and GFR around 20, HIV positive for 30 years with negative viral count and no major complications, multiple pancreatitis in the past lead to diabetes requiring insulin. CKD was attributed to multiple factors -hypertension, diabetes and HIV medication. He was listed at [place] for a kidney transplant for the past 2 years. Type of transplant: Kidney Prior transplant: no CKD: yes Cause of renal failure:DM+HTN Biopsy proven: no Dialysis: yes, hemodialysis, dialyzes on: Wednesday, Wednesday, and Wednesday, since January 2024 DM: yes, Type II, diagnosis date 10 years, current treatment--Insulin 8.6% HTN: yes, diagnosis date over 1 year, current treatment --Metoprolol and Nifedipine Cardiac : IHD/CABG/Stents--5 stents, [place] 2016, 2019 Stroke/TIA-no Open wounds/amputations--no HIV: has had this for 30+ years but currently HIV RNA count is not detected and he is well compensated and has not had any major complication --Dr Mcknight He is on Juluca--combination Dolutegravir -Rilpivirine Urine output: Normal( pride of the dialysis unit) Living Donor: sister, 73 years of age Multiple Listings: [facility] Foreign travel: No TB exposure: n HIV: n Epilepsy: n Had duodenal ulcer, causing hematochezia in January, hospitalized at [facility] UTI: n Kidney Stones: Had stones --this spring, passed spontaneously, saved one Had lithotripsy. 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 05/07/2023 History of GI bleed 02/02/2024 Duodenal ulcer HIV positive (HCC) Hypertension Kidney disease, chronic, stage IV (GFR 15-29 ml/min) ([facility]) 05/02/2022 Left bundle branch block 05/02/2022 Old WV (myocardial infarction) 05/02/2022 Overweight (BMI 25.0-29.9) 05/02/2022 Recurrent major depressive disorder, in full remission ([facility]) 05/05/2022 Systolic and diastolic CHF, chronic ([facility]) 05/02/2022 Type 2 diabetes mellitus with hemoglobin A1c goal of less than 8.0% ([facility]) 05/02/2022 Past Surgical History: Procedure Laterality Date [...] Disorder Mother Neurological Disorder Mother Parkinson's, Alzheimer's Current Outpatient Medications Medication Sig Dispense Refill [...] by mouth daily. 90 Tablet 3 Pen Dallas 32G X 4 MM Use as directed. [...] morning. 90 Tablet 3 FreeStyle Carlos 2 Holt Device Use as directed. Use to test [...] PRN2.5 mg at 04/27/24 1108 Review of Systems - Physical Capacity: can walk 2 blocks, can walk up 2 flights of stairs. Assistive Devices: Prosthesis: CONSTITUTIONAL: No change in weight, No weakness, No fatigue, and No fevers, sweats, or chills EYE: No recent significant change in vision, No eye pain, redness, discharge, No diplopia, No h/o cataracts, and No h/o glaucoma EARS: No ear pain, No drainage, No tinnitus or vertigo, and No recent change in hearing NOSE: No history of frequent colds or sinusitis, No nasal stuffiness, No history of Hay Fever, and No significant epistaxis MOUTH: No bleeding gums, No thrush, or No sore throat NECK: No lumps or masses, No swollen glands, No recent swelling in thyroid area, No significant pain in neck, and No h/o goiter or thyroid disease PULMONARY: No cough, sputum, or hemoptysis, No wheezing, No rales, No shortness of breath, and No recent change in breathing CARDIOVASCULAR: No chest pain, No shortness of breath, No dyspnea on exertion, No orthopnea, No paroxysmal nocturnal dyspnea, No edema, No palpitations, and No syncope GASTROINTESTINAL: No abdominal pain, No change in bowel habits, No significant heartburn, No significant change in appetite, No nausea, vomiting, diarrhea, or constipation, No hematemesis, No abdominal bloating or early satiety, and No dysphagia, recent admission in January for GI bleeding, cauterized,on PPI MALE: No STD, No dysuria, No frequency, No incontinence, No urgency, and Performs self testicular exam HEMATOLOGIC: No coagulation disorder, No anemia, No abnormal bleeding, No chills, No bruising, No night sweats, No swollen nodes, No weight loss, and +Blood transfusion recently, HIV postive EXTREMITIES: No pain, redness or swelling on the joints SKIN/INTEGUMENTARY: No edema, No rash, and No itching NEUROLOGIC: Normal balance, No headaches, No seizures, and No weakness PSYCHIATRIC: + major depression, No anxiety, and No psychosis ALLERGY/IMMUN: No allergic triggers, No sneeze, nasal itch, ocular symptoms of allergy, No reactions to insect sting, No chemical sensitivities, and No Food Allergies ENDOCRINE: No heat intolerance, No cold intolerance, hypothyroidism, and No excessive thirst or urination SLEEP: No sleep disorders BP 140/85 (BP Site: Left Arm, BP Position: Sitting, BP Cuff Size: Regular) | Pulse 77 | Temp 36.6 C (97.9 F) | Ht 1.75 m (5' 8.9") | Wt 76.9 kg (169 lb 9.6 oz) | BMI 25.12 kg/m | BSA 1.93 m PHYSICAL EXAMINATION: Constitutional: alert, healthy, well nourished Head: normocephalic, atraumatic Eyes: conjunctiva non-injected, sclera white Ears: pinna normal shape and color, canals patent, and TM's normal color and contour Nose: no mucosal erythema, no mucosal edema, and no purulent discharge Mouth: no exudate, no erythema, and lips, mucosa, and tongue normal Neck: supple, no adenopathy Lungs: clear to auscultation, breath sounds are equal and symmetric Heart: regular rate & rhythm and no murmur, gallops or rubs Abdomen: soft, non-tender Back: normal curvature, normal ROM, no CVA tenderness Extremities: no joint deformities, effusion, or inflammation, no edema, no skin discoloration Neuro: alert, gait normal, motor normal Skin: no obvious rashes or significant lesions Pulses ; 2+ Right sided TDC Pre-transplant testing: Cardiac: NM testing in April ---EF preserved Vascular: CT scan needs updating Colonoscopy: yes Sensitizations: Blood Transfusion: yes in January 2024 Hospitalization:yes in January 2024 Immunizations: yes Hepatitis B series, flu shot, and pneumonia vaccine provided by dialysis unit Hep Bs Ab: Has not had Shingles vaccine Venous access issues:Right TDC Lab Results Component Value Date WBC 4.27 04/11/2024 WBC 5.93 02/02/2024 WBC 18.27 (H) 06/17/2012 WBC 16.36 (H) 06/16/2012 WBC, UA - OUTSIDE LAB 0-1 04/28/2021 WBC, UA - OUTSIDE LAB 0-1 12/02/2020 WBC, URINE - [facility] 0-2 04/11/2024 WBC, URINE - [facility] 0-2 08/12/2022 No components found for: "HBG" Lab Results Component Value Date PLT 167 04/11/2024 PLT 214 02/02/2024 PLT 237 06/17/2012 PLT 207 06/16/2012 Lab Results Component Value Date SODIUM - [facility] 137 04/11/2024 SODIUM - [facility] 141 02/02/2024 SODIUM - [facility] 142 06/17/2012 SODIUM - [facility] 141 06/16/2012 SODIUM-OUTSIDE LAB 142 10/02/2020 SODIUM-OUTSIDE LAB 136 07/01/2020 Lab Results Component Value Date POTASSIUM - [facility] 3.5 04/11/2024 POTASSIUM - [facility] 4.9 02/02/2024 POTASSIUM - [facility] 3.2 (L) 06/17/2012 POTASSIUM - [facility] 3.5 06/16/2012 POTASSIUM-OUTSIDE LAB 3.9 10/02/2020 POTASSIUM-OUTSIDE LAB 4.4 07/01/2020 Lab Results Component Value Date CHLORIDE - [facility] 96 (L) 04/11/2024 CHLORIDE - [facility] 106 02/02/2024 CHLORIDE - [facility] 106 06/17/2012 CHLORIDE - [facility] 106 06/16/2012 CHLORIDE-OUTSIDE LAB 119 (H) 10/02/2020 CHLORIDE-OUTSIDE LAB 105 07/01/2020 Lab Results Component Value Date CO2 - [facility] 28 04/11/2024 CO2 - [facility] 25 02/02/2024 CO2 - [facility] 26 06/17/2012 CO2 - [facility] 24 06/16/2012 CO2-OUTSIDE LAB 15 (L) 10/02/2020 CO2-OUTSIDE LAB 21 (L) 07/01/2020 Lab Results Component Value Date GLUCOSE - [facility] 184 (H) 04/11/2024 GLUCOSE - [facility] 119 02/02/2024 GLUCOSE - [facility] 93 06/17/2012 GLUCOSE - [facility] 98 06/16/2012 GLUCOSE METER POCT - [facility] 111 06/16/2012 GLUCOSE, UA - OUTSIDE LAB 250 (1/4%) (A) 04/28/2021 GLUCOSE, UA - OUTSIDE LAB >=1000 (1%) (A) 12/02/2020 GLUCOSE, URINE - [facility] >=1000 (A) 04/11/2024 GLUCOSE, URINE - [facility] >=1000 (A) 08/12/2022 GLUCOSE-OUTSIDE LAB 55 (L) 10/02/2020 GLUCOSE-OUTSIDE LAB 261 (H) 07/01/2020 Lab Results Component Value Date BUN - [facility] 17 04/11/2024 BUN - [facility] 24 (H) 02/02/2024 BUN - [facility] 18 06/17/2012 BUN - [facility] 16 06/16/2012 BUN-OUTSIDE LAB 48 (H) 10/02/2020 BUN-OUTSIDE LAB 52 (H) 07/01/2020 Lab Results Component Value Date CREATININE - [facility] 2.4 (H) 04/11/2024 CREATININE - [facility] 3.4 (H) 02/02/2024 CREATININE - [facility] 3.5 (H) 02/02/2024 CREATININE - [facility] 0.9 06/17/2012 CREATININE - [facility] 0.8 06/16/2012 CREATININE, RANDOM URINE - [facility] 54 04/11/2024 CREATININE, RANDOM URINE - [facility] 42 05/07/2023 CREATININE-OUTSIDE LAB 3.37 (H) 10/02/2020 CREATININE-OUTSIDE LAB 3.31 (H) 07/01/2020 Lab Results Component Value Date CALCIUM - [facility] 9.4 04/11/2024 CALCIUM - [facility] 9.4 02/02/2024 CALCIUM - [facility] 9.5 06/17/2012 CALCIUM - [facility] 8.6 06/16/2012 CALCIUM-OUTSIDE LAB 8.6 10/02/2020 CALCIUM-OUTSIDE LAB 9.6 07/01/2020 Lab Results Component Value Date MAGNESIUM - [facility] 2.3 08/12/2022 MAGNESIUM - [facility] 2.5 05/07/2022 MAGNESIUM-OUTSIDE LAB 3.0 (H) 07/19/2020 MAGNESIUM-OUTSIDE LAB 2.9 (H) 09/18/2019 Lab Results Component Value Date PHOSPHORUS - [facility] 2.2 (L) 04/11/2024 PHOSPHORUS - [facility] 3.4 02/02/2024 PHOSPHORUS-OUTSIDE LAB 4.6 (H) 04/28/2021 PHOSPHORUS-OUTSIDE LAB 4.8 (H) 12/02/2020 No results found for: "HGBA1C" IMP/PLAN: In summary, Tad is a 69 year old male with end stage kidney disease on dialysis since January 2024, secondary to DM+HTN + HIV who is a good candidate for Kidney transplant. We had the opportunity to discuss the following, specific for this patient: 1) Need of lifelong immunosuppression 2) Higher chances of opportunistic infections 3) Higher risk of certain types of cancers - skin, urologic and PTLD 4) Chances of worsening of diabetes post transplant./ Chances of NODAT 5) Reoccurance of confederated goshute disease. Functional status : 100 (Normal, no complaints, no evidence of disease.) Recommend: 1) Cardiac clearance 2) Needs CT scan to assess vasculature 3) Age appropriate cancer screening 4) ID clearance given long standing h/o HIV, discussion with Tx pharmacist regarding drug-drug interactions moving forward post tx 5)Protocol testing Risks and benefits of transplantation including overall average increase in life expectancy and higher quality of life with transplantation for most recipients. Discussed details of the surgical procedure with its attendant risks, benefits and alternatives. Types of donor organs discussed with patient, including Living donor, high KDPI kidney, Hepatitis CAb+ve/GUERDA +ve organs and donor after cardiac (DCD). The relative benefit of living donation over donor transplantation explained. Patient expresses understanding of the information discussed. Discussed survival advantage of transplantation and also discussed living donor advantage. Discussed multiple listing and also center and national outcomes statistics. Discussed risk vs. Benefit of transplantation and immunosuppression. Thank you for allowing me to participate in the care of Tad Silvestre I spent a total of Greater than 55 mins (exact time 60 mins) on the date of service in preparation,delivery, and documentation of the care provided to Tad Silvestre excluding any time spent in the performance of separately billed services or time spent by another provider/QHP. Lydia Cavazos MD, FRACP Transplant Nephrology 05/08/2024 11:06 AM [facility] [place] [address] * Zenon Tierney MD - 05/08/2024 10:18 AM EDT PRE-RENAL ANNUAL TRANSPLANT CONSULTATION AND EVALUATION Referring dental tech: Dr Morris PCP: Antonio Colon History of Present Illness: 69 year-old male who just moved to the area from [facility].He has known established CKD 5 due to DM. Has been listed for transplant at [facility] in [facility]. Past medical problems includes HIV positive for 30+ years but his viral count is negative and has had no real complications with this. Also has history of pancreatitis multiple times in the past and that has led to diabetes for which he does take insulin--diabetes is not controlled. Was admitted in hospital December 2021 for chestpain which was felt to be noncardiac. Listed in [place] for 2 years. 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 05/07/2023 History of GI bleed 02/02/2024 Duodenal ulcer HIV positive ([facility]) Hypertension Kidney disease, chronic, stage IV (GFR 15-29 ml/min) ([facility]) 05/02/2022 Left bundle branch block 05/02/2022 Old WV (myocardial infarction) 05/02/2022 Overweight (BMI 25.0-29.9) 05/02/2022 Recurrent major depressive disorder, in full remission ([facility]) 05/05/2022 Systolic and diastolic CHF, chronic ([facility]) 05/02/2022 Type 2 diabetes mellitus with hemoglobin A1c goal of less than 8.0% ([facility]) 05/02/2022 Past Surgical History: Procedure Laterality Date [...] - for ages0-17 years): Not on file Current Outpatient Medications Medication Sig Dispense Refill [...] by mouth daily. 90 Tablet 3 Pen Dallas 32G X 4 MM Use as directed. [...] morning. 90 Tablet 3 FreeStyle Carlos 2 Holt Device Use as directed. Use to test [...] of patient's allergies indicates: No Known Allergies ROS: Skin: negative Eyes: wears glasses ENT: negative Respiratory: negative Cardiovascular: negative GI: negative : negative Heme: negative Musculoskeletal: pt denies significant joint pain or stiffness Neuro: negative Psych: negative Endo: negative Physical Examination: BP 140/85 (BP Site: Left Arm, BP Position: Sitting, BP Cuff Size: Regular) | Pulse 77 | Temp 36.6 C (97.9 F) | Ht 1.75 m (5' 8.9") | Wt 76.9 kg (169 lb 9.6 oz) | BMI 25.12 kg/m | BSA 1.93 m Constitutional: alert, healthy, well nourished Head: normocephalic, atraumatic Eyes: conjunctiva non-injected, sclera white Ears: pinna normal shape and color Nose: no mucosal erythema, no mucosal edema and no purulent discharge Mouth: no exudate, no erythema and lips, mucosa, and tongue normal Neck: supple, no adenopathy Lungs: clear to auscultation, breath sounds are equal and symmetric Heart: regular rate & rhythm and no murmur, gallops or rubs Abdomen: soft, non-tender, no hernias. Back: normal curvature, normal ROM, no CVA tenderness Extremities: no joint deformities, effusion, or inflammation, no edema, no skin discoloration Neuro: alert, gait normal, motor normal Skin: no obvious rashes or significant lesions Pulses: Easily palpable femoral pulses Laboratory Data/Radiology Imaging: All labs and imaging reviewed I personally reviewed the patient's available laboratory data. I personally evaluated this patient with an interview, physical examination, review of medications, previous medical records, and any current radiological testing. Discussion: I reviewed both living donor and donor kidney transplantation with the patient. In addition, I reviewed the options of dialysis versus transplant with the patient. I advised the patient thatkidney transplantation definitely improves the quality of life and also allows improved longevity in many patients. I have reviewed in detail the institutional listing consent form with respect to options, risk & benefits, types of donors living vs . This will be scanned into the patients medical record. With respect to donor kidney transplantation, I reviewed donors who are KDPI > 85%, Hepatitis B core antibody positive, and Hepatitis C positive. We reviewed the UNOS kidney allocation booklet detailin. Q & A with regard to the new kidney allocation system. 2. How kidneys are classified - Calculation of the Kidney Donor Profile Index (KDPI) score. The KDPI is calculated based on facts about the donor that affect how long the kidney is likely to function. Ranges from zero to 100 per cent. The score is associated with how long the kidney is likely to function when compared with other kidneys. A KDPI score of 20% means that the kidney is likely to function longer than 80% of other available kidneys. A KDPI score of 60% means that the kidney is likely to function longer than 40% of other available kidneys. The factors include: Age Height Weight Ethnicity Whether the donor due to loss of heart function (DCD) or loss of brain function (BDD) Stroke as cause of History of HTN History of DM Exposure to Hepatitis C virus Serum Creatinine 3. How transplant candidates are classified: Each candidate will get an individual Estimated Post Transplant Survival (EPTS) score (range zero to 100 per cent). The score is associated with how long the candidate will need a functioning kidney transplant when compared to other candidates. A person with an EPTS score of 20% is likely to need a kidney longer than 80% of other candidates. A person with an EPTS score of 60% is likely to need a kidney longer than 40% of other people. The EPTS score is calculated based on: Age Length of time spent on dialysis Having received a previous transplant (of any organ) Current diagnosis of diabetes With respect to outcomes, I reviewed the national 1 year graft survival and our center's results. Iencouraged the patient to review this data for himself. With respect to surgical complications, I reviewed the risks of bleeding, infection, delayed graft function, graft thrombosis, rejection, both acute and chronic. Ureteral complications, long-term implication of immunosuppression medication use such as viral infections and certain malignancies and also the risk of mortality associated with any surgical procedure. Assessment and Plan: 69 year-old male who just moved to the area from [facility] He has known established CKD 5 due to DM. Has been listed for transplant at [facility] in [facility]. Past medical problems includes HIV positive for 30+ years but his viral count is negative and has had no real complications with this. Also has history of pancreatitis multiple times in the past and that has led to diabetes for which he does take insulin--diabetes is not controlled. Was admitted in hospital December 2021 for chest painwhich was felt to be noncardiac. Followed by [facility] for HIV. 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 Cardiac clearance. CT scan abdomen/pelvis. Age appropriate cancer screenings. From the surgical standpoint, he remains to be a(n) acceptable candidate for kidney transplantation. His case will be discussed in detail at a selection committee meeting. I spent a total of Greater than 55 mins (exact time 56 mins) on the date of service in preparation,delivery, and documentation of the care provided to Tad Silvestre excluding any time spent in the performance of separately billed services or time spent by another provider/QHP. 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) 3039 History of Renal Disease: Began dialysis 01/20/24 Diabetes: Insulin Dependent Adult Onset Age of Onset: 59 yrs old Date of Onset: 2013 Initial Treatment: Oral agents Current Treatment: Insulin injections Other Medical History: Past Medical History: Diagnosis Date Chronic heart failure with preserved ejection fraction ([facility]) 11/24/2022 Coronary artery disease involving confederated goshute coronary artery of confederated goshute heart without angina pectoris 05/02/2022 Duodenal ulcer 02/02/2024 Dyslipidemia 05/02/2022 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 05/07/2023 History of GI bleed 02/02/2024 Duodenal ulcer HIV positive ([facility]) Hypertension Kidney disease, chronic, stage IV (GFR 15-29 ml/min) ([facility]) 05/02/2022 Left bundle branch block 05/02/2022 Old WV (myocardial infarction) 05/02/2022 Overweight (BMI 25.0-29.9) 05/02/2022 Recurrent major depressive disorder, in full remission ([facility]) 05/05/2022 Systolic and diastolic CHF, chronic ([facility]) 05/02/2022 Type 2 diabetes mellitus with hemoglobin A1c goal of less than 8.0% ([facility]) 05/02/2022 BP 140/85 (BP Site: Left Arm, BP Position: Sitting, BP Cuff Size: Regular) | Pulse 77 | Temp 36.6 C (97.9 F) | Ht 1.75 m (5' 8.9") | Wt 76.9 kg (169 lb 9.6 oz) | BMI 25.12 kg/m | BSA 1.93 m Current Prescriptions: Current Outpatient Medications Medication Sig Dispense Refill Basaglar KwikPen 100 UNIT/ML Subcutaneous Solution Pen-injector (Insulin Glargine Solostar) INJECT UNDER THE SKIN 22 UNITS IN THE MORNING. (Patient taking differently: Inject 10 Units under the skin every morning.) 30 mL 1 Atorvastatin Calcium 40 MG Oral Tablet (Lipitor) TAKE 1 TABLET BY MOUTH EVERY DAY IN THE MORNING 90Tablet 3 Fiasp FlexTouch 100 UNIT/ML Subcutaneous Solution Pen-injector (Insulin Aspart (w/Niacinamide)) Inject 10 Units under the skin in the morning and 10 Units at noon and 10 Units before bedtime. With meals. 15 mL 3 Co Q 10 10 MG Oral Capsule [...] EVERY DAY IN THE MORNING 90 Tablet3 Juluca 50-25 MG Oral Tablet Take 1 Tablet by mouth daily. 90 Tablet 3 Pen Dallas 32G X 4 MM Use as directed. Use to inject insulin 4 times daily E11.9 400 Each 3 NovoLOG FlexPen 100 UNIT/ML Subcutaneous Solution Pen-injector (insulin aspart) INJECT 10 UNITS THREE TIMES A DAY WITH MEALS or as directed (Patient not taking: Reported on 02/25/2024) 15 mL 5 Sevelamer Carbonate 800 MG Oral Tablet (Renvela) [...] morning. 90 Tablet 3 FreeStyle Carlos 2 Holt Device Use as directed. Use to test BG E10.65 1 Each 0 FreeStyle Carlos 2 Sensor Use as directed. Use one sensor every 14 days for blood sugar E10.65 1 Each 11 Current Facility-Administered Medications Medication Dose Route Frequency Provider Last Rate Last Admin Albuterol Sulfate (Proventil) (2.5 MG/3ML) 0.083% inhalation solution 2.5 mg 2.5 mg Nebulizer PRN Albuterol Sulfate (Proventil) (5 MG/ML) 0.5% *conc* inhalation solution 2.5 mg 2.5 mg Nebulizer PRN2.5 mg at 04/27/24 1108 Previous Transplants: No Nephrectomy: No Transfusions: yes Number of Transfusions: two Date of Last Transfusion: January 2024 Parity 1. Partner's Name: single Number of Pregnancies: n/a Number of Children: zero Transethnicity: Non /Non Trans Race: White Citizenship: [place] Citizenship Transfunc: No activity limitations Transemploy: Not working by choice Transed: Basic renal anatomy function and dysfunction, Transplantation as a treatment option, The evaluation process, The choice of cadaver, living related, and living unrelated transplantation, Withrespect to donor kidney transplantation, I reviewed both donors Kidney Donor Profile Index(KDPI) > 85% & CDC high risk donors. We reviewed the [employer] ([employer]) kidney allocation booklet detailing: - Q&A with regards to the new kidney allocation system - How kidneys are classified - Calculation of the Kidney Donor Profile Index (KDPI) score: The KDPI is calculated based on facts about the donor that affect how long the kidney is likely to function. Range is from zero to one hundred percent. The score is associated with how long the kidney is likely to function when compared to other kidneys. A KDPI score of 20% means that the kidney is likely to function longer than 80% of other available kidneys. A KDPI scare of 60% means that the kidney is likely to function longer than 40% of other available kidneys. The factors include: Age Height Weight Ethnicity Whether the donor due to loss of heart function, Donation after Cardiac (DCD), or loss of brain function, Brain- Donor (BDD) Stroke as cause of History of HTN History of DM Exposure to Hepatitis C virus Serum Creatinine Tissue typing, the waiting list and the point system, Overview of the renal transplant surgery and postoperative care, Possible complications post renal transplantation, Immunosuppressive medicationsand possible side effects, HIV protocol, HIV testing of the donor and testing of antibody presence not viral exposure, Expectations of the patient after transplantation;, monitoring at home, returning to clinic, and taking medications, The patient was encouraged to review pamphlet "Transplant Services" that was mailed to them at the time of the referral for renal transplantation, The patient was instructed to call with questions, The patient was instructed to have any LRD's or LURD's contact us, The patient was instructed and given written information and consent form regarding: The importance of discussing this with dental tech at [facility], local dental tech, and family 10) Please return to the transplant office the consent form after a decision has been made., Patient informed about multi-listing options, Listing consent form was reviewed, CDC high risk consent form was completed The patient will be presented at the next transplant committee meeting. The following information has been completed: Laboratory Studies. The patient needs the following in order to complete his evaluation for renal transplantation: Cardiac Testing and clearance KDPI-Yes DCD-Yes Hep C pos donor/Guerda Neg-Yes Hep C pos donor/Guerda Pos-Yes Hep B Core if has antibodies-Yes The patient was willing to consent to Donor Kidneys With Active Hepatitis B Virus at the time of education. Living Donors No Education class attended with support person, Sister. The most current SRTR data for kidney was given to patient for review. Release date 03/21/24. Questions answered. Verbalized understanding of information. A copy of the SRTR data was given to the patient. documented in this encounter Plan of Treatment Upcoming Encounters Date Type Department Care Team (Latest Contact Info) Description 05/17/2024 7:15 AM EDT Cardiac Studies Cardiac Studies, [address] [place] [address] 05/19/2024 9:30 AM EDT Office Visit Urology Hari Roth [address] [place] [address] Marie Tran PA-C [address] [place] [address] 05/19/2024 6:10 PM EDT Pharmacy Pharmacy, [facility] [address] [facility] [place] [address] [place] [address] 05/23/2024 10:20 AM EDT Office Visit Nephrology, Madelien Snider [address] [facility] [place] [address] Tesfaye Morris MD [address] [place], [place] [address] 06/12/2024 9:30 AM EDT Office Visit Gastroenterology, [facility] [place] [address] Erna Srivastava CRNP [facility] [place] [address] 06/26/2024 7:15 AM EDT Hospital Encounter OR [facility], OPERATING ROOM [facility], [facility] [address] [place] [phone] Benjamin Cartagena MD [address] [place] [address] 06/26/2024 7:15 AM EDT - 06/26/2024 9:25 AM EDT Surgery OR [facility], OPERATING ROOM [facility], [facility] [address] [place] [phone] Benjamin Cartagena MD [address] [place] [address] 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 07/19/2024 12:50 PM EST Office Visit Vascular Surgery, [facility] [address] [facility] [place] [address] Benjamin Cartagena MD [address], [place] [id number] 09/19/2024 3:30 PM EST Office Visit Cardiology, [facility] [address] [facility] [place] [address] Davy Mota MD [address] [place] [address] 10/13/2024 9:00 AM EST Office Visit Family [facility] [address] [place] [address] Antonio Colon MD [address] [place] [address] Scheduled Procedures Name Priority Associated Diagnoses Date/Ti [...] on dialysis (HCC) End stage renal disease Type 2 diabetes mellitus with hemoglobin A1c goal of less than 8.0% (HCC)- Primary ESRD on dialysis (HCC) End stage renal [...] patient or by statute hierarchy) Care Teams Corporate Accounting Manager Relationship Specialty Start Date End Date Antonio Colon MD [address] [place] [id number] PCP - General Family Medicine 02/12/22 documented as of this encounter
--- OUTSIDE RECORDS SUMMARY | 2024-09-21 08:08 | External Medical Summary | Summary of Care ---
Author Name Unknown Organization [facility] Address [address] [place] [address] Phone [phone] Care Team Providers Care Assistant Professor Of Life Sciences Name Role Phone Antonio Colon MD Primary Care Provider [phone] Reason for Visit * Reason Comments NEW PATIENT * Evaluate & Treat - Unlimited Visits (Within 10 days (routine)) - Authorized Specialty Diagnoses / Procedures Referred By Marques garg Referred To Contact Urology Diagnoses Kidney disease, chronic, stage IV (GFR 15-29 ml/min) ([facility]) Nephrolithiasis Radhika Alberts DO [address] [place] [address] Referral ID Status Reason Start Date Expiration Date Visits Requested Visits Authorized [id number] Authorized Specialty Services Required 01/18/2024 [id number] Encounter Details Date Type Department Care Team (Late st Contact Info) Description 05/19/2024 9:30 AM EDT Office Visit UrologHari Manley [address] [place] [address] Marie Tran PA-C [address] [place] [address] Ureteral stent present*; Nephrolithiasis; BPH with obstruction/lower urinary tract symptoms Allergies No known active allergiesdocumented as of this encounter (statuses as of 05/23/2024) Medications Medication Sig Dispensed Refills Start Date [...] Additional Information Patient taking differently: 10 UnitsSubcutaneous [id number], Reported on 05/08/2024 Metoprolol Succinate ER 25 MG Oral Tablet Extended Release 24 Hour (toPROL XL)Indications:Co ronary artery disease involving navajo coronary artery of navajo heart without angina pectoris TAKE 1 TABLET BY MOUTH EVERY DAY IN THE MORNING 90 Tablet 3 10/05/2023 Active Prasugrel HCl 10 MG Oral Tablet (Effient)Indicati ons:Coronary artery disease involving navajo coronary artery of navajo heart without angina pectoris TAKE 1 TABLET BY MOUTH EVERY DAY IN THE MORNING 90 Tablet 3 10/05/2023 Active Atorvastatin Calcium 40 MG Oral Tablet (Lipitor)Indicati ons:Dyslipidemia, goal LDL below 70 TAKE 1 TABLET BY MOUTH EVERY DAY IN THE MORNING 90 Tablet 3 10/06/2023 Active Juluca 50-25 MG Oral Tablet Take 1 Tablet by mouth daily. 90 Tablet 3 12/01/2023 Active Pen [place] 32G X 4 MM Use as directed. [...] Tablet 3 03/24/2024 Active FreeStyle Carlos 2 [place] DeviceIndications :Type 2 diabetes mellitus with hemoglobin A1c goal of less than 8.0% ([facility]) Use as directed. Use to test BG E10.65 1 Each 04/11/2024 Active FreeStyle Carlos 2 SensorIndications :Type 2 diabetes mellitus with hemoglobin A1c goal of less than 8.0% ([facility]) Use as directed. Use one sensor every 14 days for blood sugar E10.65 1 Each 11 04/11/2024 Active Fiasp FlexTouch 100 UNIT/ML Subcutaneous Solution Pen-injector (Insulin Aspart (w/Niacinamide))I ndications:Type 2 diabetes mellitus with hemoglobin A1c goal of less than 8.0% ([facility]) Inject 10 Units under the skin in the morning and 10 Units at noon and 10 Units before bedtime. With meals. 15 mL 3 04/26/2024 Active Hospital, Clinic, or Other Facility Administered Medication Ordered Dose Route Frequency Start Date End Date Status Albuterol Sulfate (Proventil) (2.5 MG/3ML) 0.083% inhalation solution 2.5 mgIndications:ESRD on dialysis ([facility]),Pre-transplant evaluation for ESRD (end stage renal disease) 2.5 mg NEBULIZER PRN 03/24/2024 Acti ve Albuterol Sulfate (Proventil) (5 MG/ML) 0.5% *conc* inhalation solution 2.5 mgIndications:ESRD on dialysis ([facility]),Pre-transplant evaluation for ESRD (end stage renal disease) 2.5 mg NEBULIZER PRN 03/24/2024 Acti ve documented as of this encounter (statuses as of 05/23/2024) Active Problems Problem Noted Date Diagnosed Date ESRD on dialysis 02/02/2024 History of GI bleed 02/02/2024 Overview: Duodenal ulcer Duodenal ulcer 02/02/2024 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 05/07/2023 Recurrent major depressive disorder, in full rem ission 05/05/2022 Overweight (BMI 25.0-29.9) 05/02/2022 Dyslipidemia 05/02/2022 Coronary artery disease invo lving navajo coronary artery of navajo heart without angina pectoris 05/02/2022 Type 2 diabetes mellitus wit h hemoglobin A1c goal of less than 8.0% 05/02/2022 Old [place] (myocardial infarction) 05/02/2022 Chronic systolic (congestive) heart failure 04/14 Left bundle branch block 05/02/2022 HTN, goal below 130/80 HIV positive documented as of this encounter (statuses as of 05/23/2024) Resolved Problems Problem Noted Date Diagnosed Date Resolved Date Chronic heart failure with p reserved ejection fraction 11/24/2022 02/04/2023 Kidney disease, chronic, sta ge IV (GFR 15-29 ml/min) 05/02/2022 02/02/2024 ARDS (adult respiratory distress syndrome) 06/17/2012 05/02/2022 Acute pancreatitis 06/14/2012 Acute respiratory distress 06/14/2012 0 05/02/2022 documented as of this encounter (statuses as of 05/23/2024) Immunizations Name Administration Dates Next Due COVID-19 mRNA, LNP-s, No Pre serve, 2-Dose Series (Moderna) 11/27/2020,10/24/2020 COVID-19, MRNA-LNP, 23-24, P F, 50 MCG/0.5 mL, 12 YRS AND ABOVE, IM (MODERNA-Spikevax) 08/05/2021 Covid-19, Mrna, Lnp-s, Pf, B ivalent, 30 Mcg, IM, 12 yrs and above ([employer]) 09/09/2022 Hepatitis B, 20+ yrs 08/25/2017 Meningococcal [...] on file documented as of this encounter Nursing Notes * Sveta Florian LPN - 05/19/2024 9:45 AM EDT Chief Complaint Patient presents with NEW PATIENT Pt presents as a new pt for nephrolithiasis. Pt was seen at [facility] and has right stent placed in December, stent still in place. Pt states has hx of stones. CT completed documented in this encounter Plan of Treatment Upcoming Encounters Date Type Department Care Team (Latest Contact Info) Description 05/23/2024 10:20 AM EDT Office Visit Nephrology, [facility] [address] [place] [address] Tesfaye Morris MD [address] [facility] [place] [place] [address] 06/05/2024 1:30 PM EDT Office Visit Urology Hari Roth [address] [place] [address] Himanshu Gamez Jr., MD [address] [place] [place] [address] 06/12/2024 9:30 AM EDT Office Visit Gastroenterology, [facility] [address] [address] Erna Srivastava CRNP [address] [place] [address] 06/26/2024 7:15 AM EDT Hospital Encounter [facility], OPERATING ROOM [facility], [facility] [address] [place] [facility] [place] [address] Benjamin Cartagena MD [address], [place] [address] 06/26/2024 7:15 AM EDT - 06/26/2024 9:25 AM EDT Surgery OR [facility], OPERATING ROOM [facility], [facility] [address] [place] [facility] [place] [address] Benjamin Cartagena MD [address], [place] [id number] 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 07/19/2024 12:50 PM EST Office Visit Vascular Surgery, [facility] [address] [facility] [address] Benjamin Cartagena MD [address] [place] [address] 09/19/2024 3:30 PM EST Office Visit Cardiology, [facility] [address] [place] [address] Davy Mota MD [address] [place] [address] 10/13/2024 9:00 AM EST Office Visit Family Practice [facility] [address] [place] [address] Antonio Colon MD [address] [place] [address] Scheduled Procedures Name Priority Associated Diagnoses Date/Ti me 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 ESRD on dialysis (HCC) 06/26/2024 7:15 AM EDT COLONOSCOPY FLEXIBLE PROXIMAL DIAGNOSTIC Recall History of colonic polyps Scheduled Referrals Name Type Priority Associated Diagnoses Orde r Schedule ADULT/PEDS UROLOGY REFERRAL OP Referral Within 10 days (routine) Kidney disease, chronic, stage IV (GFR 15-29 ml/min) (HCC) Nephrolithiasis Ordered: 01/18/2024 Health Maintenance Due Date Last [...] on dialysis (HCC) End stage renal disease Ureteral stent present- Primary Nephrolithiasis Calculus of kidney BPH with obstruction/lower urinary tract symptoms Hypertrophy of prostate with urinary obstruction and other lower urinary tract symptoms (LUTS) ESRD on dialysis (HCC) End stage renal [...] patient or by statute hierarchy) Care Teams Assistant Professor Of Life Sciences Relationship Specialty Start Date End Date Antonio Colon MD [address] [place] [address] PCP - General Family Medicine 02/12/22 documented as of this encounter
--- OUTSIDE RECORDS SUMMARY | 2024-09-21 08:08 | External Medical Summary | Summary of Care ---
Author Name Unknown Organization [facility] Address [address] [place] [address] Phone [phone] Care Team Providers Care Sterile Supply Technician Name Role Phone Antonio Colon MD Primary Care Provider [phone] Reason for Visit * Reason Onset Date Comments Fax 02/23/2024 Encounter Details Date Type Department Care Team (Late st Contact Info) Description 02/23/2024 Telephone Family Practice [facility] [address] [facility] [address] Antonio Colon MD [address] [place] [address] Fax Allergies No known active allergiesdocumented as [...] Additional Information Patient taking differently: 10 UnitsSubcutaneous [id number], Reported on 05/08/2024 Metoprolol Succinate ER 25 MG Oral Tablet Extended Release 24 Hour (toPROL XL)Indications:Co ronary artery disease involving iroquois coronary artery of iroquois heart without angina pectoris TAKE 1 TABLET BY MOUTH EVERY DAY IN THE MORNING 90 Tablet 3 10/05/2023 Active Prasugrel HCl 10 MG Oral Tablet (Effient)Indicati ons:Coronary artery disease involving iroquois coronary artery of iroquois heart without angina pectoris TAKE 1 TABLET BY MOUTH EVERY DAY IN THE MORNING 90 Tablet 3 10/05/2023 Active Atorvastatin Calcium 40 MG Oral Tablet (Lipitor)Indicati ons:Dyslipidemia, goal LDL below 70 TAKE 1 TABLET BY MOUTH EVERY DAY IN THE MORNING 90 Tablet 3 10/06/2023 Active Juluca 50-25 MG Oral Tablet Take 1 Tablet by mouth daily. 90 Tablet 3 12/01/2023 Active Pen [place] 32G X 4 MM Use as directed. [...] Dyslipidemia 05/02/2022 Coronary artery disease invo lving iroquois coronary artery of iroquois heart without angina pectoris 05/02/2022 Type 2 diabetes mellitus wit h hemoglobin A1c goal of less than 8.0% 05/02/2022 Old [place] (myocardial infarction) 05/02/2022 Chronic systolic (congestive) heart [...] 30 Mcg, IM, 12 yrs and above ([employer]) 09/09/2022 Hepatitis B, 20+ yrs 08/25/2017 Meningococcal [...] encounter Miscellaneous Notes * Telephone Encounter - Arianna Cruz MED ASSIST - 02/23/2024 9:58 AM EDT Only recent Stress test is from 01/2023 -- faxed per request. * Telephone Encounter - Micaela Feliciano OSA - 02/23/2024 9:37 AM EDT Caller requesting the following information to be faxed: Name/Company of caller: [facility] Information requested to be faxed: stress test results Fax number: [phone] Attention to Name/Company: Jessica Any additional information?: documented in this encounter Plan of Treatment Upcoming Encounters Date Type Department Care Team (Latest Contact Info) Description 05/17/2024 7:15 AM EDT [facility] [address] [place] [address] 05/19/2024 9:30 AM EDT Office Visit Urology Hari Roth [address] [place] [address] Marie Tran PA-C [address] [place] [place] [address] 05/19/2024 6:10 PM EDT Pharmacy Pharmacy, [facility] [address] [address] [facility] [address] [place] [address] 05/23/2024 10:20 AM EDT Office Visit Nephrology, [facility] [address] [place] [address] Tesfaye Morris MD [address] [place] [address] 06/12/2024 9:30 AM EDT Office Visit Gastroenterology, [facility] [address] [place] [address] Erna Srivastava CRNP 132 [facility] [place] [address] 06/26/2024 7:15 AM EDT Hospital Encounter OR [facility], OPERATING ROOM [facility] [address] [place] [facility] [phone] Benjamin Cartagena MD [address] [place] [facility] [place] [address] 06/26/2024 7:15 AM EDT - 06/26/2024 9:25 AM EDT Surgery OR [facility], OPERATING ROOM [facility] [address] [place] [facility] [place] [address] Benjamin Cartagena MD [address] [place], [place] [id number] 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 07/19/2024 12:50 PM EST Office Visit Vascular Surgery, [facility] [address] [place] [address] Benjamin Cartagena MD [address] [place], [place] [id number] 09/19/2024 3:30 PM EST Office Visit Cardiology, [facility] [address] [place] [address] Davy Mota MD [address] [place] [address] 10/13/2024 9:00 AM EST Office Visit Family Practice [facility] [address] [place] [address] Antonio Colon MD [address] [place] [address] Scheduled Procedures Name Priority Associated Diagnoses Date/Ti [...] Healthcare Agent Relationshi p Communication Lorin Silvestre [facility] Health Care Repr esentative (appointed verbally by patient or by statute hierarchy) Care Teams Sterile Supply Technician Relationship Specialty Start Date End Date Antonio Colon MD [address] [place] [address] PCP - General Family Medicine 02/12/22 documented as of this encounter
--- OUTSIDE RECORDS SUMMARY | 2024-09-21 08:08 | External Medical Summary | Summary of Care ---
Author Name Unknown Organization [facility] Address [address] [place] [address] Phone [phone] Care Team Providers Care Bit Sharpener Name Role Phone Antonio Colon MD Primary Care Provider [phone] Reason for Visit * Reason Onset Date Comments Left Message 05/19/2024 Encounter Details Date Type Department Care Team (Late st Contact Info) Description 05/19/2024 Telephone Urology Hari Roth [address] [place] [address] Marie Tran PA-C [address] [place] [address] Left Message Allergies No known active allergiesdocumented as of this encounter (statuses as of 05/22/2024) Medications Medication Sig Dispensed Refills Start Date [...] Additional Information Patient taking differently: 10 UnitsSubcutaneous [id number], Reported on 05/08/2024 Metoprolol Succinate ER 25 MG Oral Tablet Extended Release 24 Hour (toPROL XL)Indications:Co ronary artery disease involving potter [place] coronary artery of [place] heart without angina pectoris TAKE 1 TABLET BY MOUTH EVERY DAY IN THE MORNING 90 Tablet 3 10/05/2023 Active Prasugrel HCl 10 MG Oral Tablet (Effient)Indicati ons:Coronary artery disease involving [place] coronary artery of [place] heart without angina pectoris TAKE 1 TABLET BY MOUTH EVERY DAY IN THE MORNING 90 Tablet 3 10/05/2023 Active Atorvastatin Calcium 40 MG Oral Tablet (Lipitor)Indicati ons:Dyslipidemia, goal LDL below 70 TAKE 1 TABLET BY MOUTH EVERY DAY IN THE MORNING 90 Tablet 3 10/06/2023 Active Juluca 50-25 MG Oral Tablet Take 1 Tablet by mouth daily. 90 Tablet 3 12/01/2023 Active Pen [place] 32G X 4 MM Use as directed. [...] Tablet 3 03/24/2024 Active FreeStyle Carlos 2 [place] DeviceIndications :Type 2 diabetes mellitus with hemoglobin A1c goal of less than 8.0% ([facility]) Use as directed. Use to test BG E10.65 1 Each 04/11/2024 Active FreeStyle Carlos 2 SensorIndications :Type 2 diabetes mellitus with hemoglobin A1c goal of less than 8.0% ([facility]) Use as directed. Use one sensor every 14 days for blood sugar E10.65 1 Each 11 04/11/2024 Active Fiasp FlexTouch 100 UNIT/ML Subcutaneous Solution Pen-injector (Insulin Aspart (w/Niacinamide))I ndications:Type 2 diabetes mellitus with hemoglobin A1c goal of less than 8.0% ([facility]) Inject 10 Units under the skin in the morning and 10 Units at noon and 10 Units before bedtime. With meals. 15 mL 3 04/26/2024 Active Hospital, Clinic, or Other Facility Administered Medication Ordered Dose Route Frequency Start Date End Date Status Albuterol Sulfate (Proventil) (2.5 MG/3ML) 0.083% inhalation solution 2.5 mgIndications:ESRD on dialysis ([facility]),Pre-transplant evaluation for ESRD (end stage renal disease) 2.5 mg NEBULIZER PRN 03/24/2024 Acti ve Albuterol Sulfate (Proventil) (5 MG/ML) 0.5% *conc* inhalation solution 2.5 mgIndications:ESRD on dialysis ([facility]),Pre-transplant evaluation for ESRD (end stage renal disease) 2.5 mg NEBULIZER PRN 03/24/2024 Acti ve documented as of this encounter (statuses as of 05/22/2024) Active Problems Problem Noted Date Diagnosed Date ESRD on dialysis 02/02/2024 History of GI bleed 02/02/2024 Overview: Duodenal ulcer Duodenal ulcer 02/02/2024 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 05/07/2023 Recurrent major depressive disorder, in full rem ission 05/05/2022 Overweight (BMI 25.0-29.9) 05/02/2022 Dyslipidemia 05/02/2022 Coronary artery disease invo lving [place] coronary artery of [place] heart without angina pectoris 05/02/2022 Type 2 diabetes mellitus wit h hemoglobin A1c goal of less than 8.0% 05/02/2022 Old [place] (myocardial infarction) 05/02/2022 Chronic systolic (congestive) heart failure 04/14 Left bundle branch block 05/02/2022 HTN, goal below 130/80 HIV positive documented as of this encounter (statuses as of 05/22/2024) Resolved Problems Problem Noted Date Diagnosed Date Resolved Date Chronic heart failure with p reserved ejection fraction 11/24/2022 02/04/2023 Kidney disease, chronic, sta ge IV (GFR 15-29 ml/min) 05/02/2022 02/02/2024 ARDS (adult respiratory distress syndrome) 06/17/2012 05/02/2022 Acute pancreatitis 06/14/2012 Acute respiratory distress 06/14/2012 0 05/02/2022 documented as of this encounter (statuses as of 05/22/2024) Immunizations Name Administration Dates Next Due COVID-19 mRNA, LNP-s, No Pre serve, 2-Dose Series (Moderna) 11/27/2020,10/24/2020 COVID-19, MRNA-LNP, 23-24, P F, 50 MCG/0.5 mL, 12 YRS AND ABOVE, IM (MODERNA-Spikevax) 08/05/2021 Covid-19, Mrna, Lnp-s, Pf, B ivalent, 30 Mcg, IM, 12 yrs and above ([employer]) 09/09/2022 Hepatitis B, 20+ yrs 08/25/2017 [...] encounter Miscellaneous Notes * Telephone Encounter - Kalpana Fernandez, MED ASSIST - 05/22/2024 1:14 PM EDT I scheduled patient for 06/[address] Gamez for a cysto stent removal. for 130. I did leave a message for patient to call back to confirm he got the message and is ok with date and time. * Telephone Encounter - Marie Tran PA-C - 05/19/2024 4:37 PM EDT Attempted to call patient to review treatment plan options but left a message. I would recommend proceeding with stent removal in the office. Please schedule patient for stent removal JUDIT with either provider. Thanks! documented in this encounter Plan of Treatment Upcoming Encounters Date Type Department Care Team (Latest Contact Info) Description 05/23/2024 10:20 AM EDT Office Visit Nephrology, [facility] [address] [facility] [place] [address] Tesfaye Morris MD 200 [facility] [place] [address] 06/05/2024 1:30 PM EDT Office Visit Urology Hari Roth [address] [facility] [address] [place] [address] Himanshu Gamez Jr., MD [address] [address] 06/12/2024 9:30 AM EDT Office Visit Gastroenterology, [facility] [address] [address] Erna Srivastava CRNP [address] [place] [address] 06/26/2024 7:15 AM EDT Hospital Encounter [facility], OPERATING ROOM [facility], [facility] [address] [facility] [address] Benjamin Cartagena MD [address] [place] [address] 06/26/2024 7:15 AM EDT - 06/26/2024 9:25 AM EDT Surgery OR [facility]ATING ROOM [facility] [address] [place] [phone] Benjamin Cartagena MD [address] [place] [address] 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 07/19/2024 12:50 PM EST Office Visit Vascular Surgery, [facility] [address] [place] [address] Benjamin Cartagena MD [address] [place] [address] 09/19/2024 3:30 PM EST Office Visit Cardiology, [facility] [address] [facility] [place] [address] Davy Mota MD [address] [place] [address] 10/13/2024 9:00 AM EST Office Visit Family Practice [facility] [address] [place] [place] [address] Antonio Colon MD [address] [place] [address] Scheduled Procedures Name Priority Associated Diagnoses Date/Ti [...] Healthcare Agent Relationshi p Communication Lorin Silvestre [facility] Health Care Repr esentative (appointed verbally by patient or by statute hierarchy) Care Teams Bit Sharpener Relationship Specialty Start Date End Date Antonio Colon MD [address] [place] [address] PCP - General Family Medicine 02/12/22 documented as of this encounter
--- OUTSIDE RECORDS SUMMARY | 2024-09-21 08:08 | External Medical Summary | Summary of Care ---
Author Name Unknown Organization [facility] Address [address] [place] [address] Phone [phone] Care Team Providers Care Parachute Marker Name Role Phone Antonio Colon MD Primary Care Provider [phone] Reason for Visit * Reason Onset Date Comments Test Results 05/11/2024 Unexpected or In determinate Result Encounter Details Date Type Department Care Team (Late st Contact Info) Description [facility] [address] [place] [address] Librado Stubbs MD [address] [place] [address] Test Results (Unexpected or Indeterminate [...] Additional Information Patient taking differently: 10 UnitsSubcutaneous [id number], Reported on 05/08/2024 Metoprolol Succinate ER 25 MG Oral Tablet Extended Release 24 Hour (toPROL XL)Indications:Co ronary artery disease involving [place] coronary artery of [place] heart without angina pectoris TAKE 1 TABLET BY MOUTH EVERY DAY IN THE MORNING 90 Tablet 3 10/05/2023 Active Prasugrel HCl 10 MG Oral Tablet (Effient)Indicati ons:Coronary artery disease involving [place] coronary artery of [place] heart without angina pectoris TAKE 1 TABLET BY MOUTH EVERY DAY IN THE MORNING 90 Tablet 3 10/05/2023 Active Atorvastatin Calcium 40 MG Oral Tablet (Lipitor)Indicati ons:Dyslipidemia, goal LDL below 70 TAKE 1 TABLET BY MOUTH EVERY DAY IN THE MORNING 90 Tablet 3 10/06/2023 Active Juluca 50-25 MG Oral Tablet Take 1 Tablet by mouth daily. 90 Tablet 3 12/01/2023 Active Pen [place] 32G X 4 MM Use as directed. [...] Tablet 3 03/24/2024 Active FreeStyle Carlos 2 Viola DeviceIndications :Type 2 diabetes mellitus with hemoglobin A1c goal of less than 8.0% ([facility]) Use as directed. Use to test BG E10.65 1 Each 04/11/2024 Active FreeStyle Carlos 2 SensorIndications :Type 2 diabetes mellitus with hemoglobin A1c goal of less than 8.0% ([facility]) Use as directed. Use one sensor every 14 days for blood sugar E10.65 1 Each 11 04/11/2024 Active Fiasp FlexTouch 100 UNIT/ML Subcutaneous Solution Pen-injector (Insulin Aspart (w/Niacinamide))I ndications:Type 2 diabetes mellitus with hemoglobin A1c goal of less than 8.0% ([facility]) Inject 10 Units under the skin in the morning and 10 Units at noon and 10 Units before bedtime. With meals. 15 mL 3 04/26/2024 Active Hospital, Clinic, or Other Facility Administered Medication Ordered Dose Route Frequency Start Date End Date Status Albuterol Sulfate (Proventil) (2.5 MG/3ML) 0.083% inhalation solution 2.5 mgIndications:ESRD on dialysis ([facility]),Pre-transplant evaluation for ESRD (end stage renal disease) 2.5 mg NEBULIZER PRN 03/24/2024 Acti ve Albuterol Sulfate (Proventil) (5 MG/ML) 0.5% *conc* inhalation solution 2.5 mgIndications:ESRD on dialysis ([facility]),Pre-transplant evaluation for ESRD (end stage [...] Dyslipidemia 05/02/2022 Coronary artery disease invo lving [place] coronary artery of [place] heart without angina pectoris 05/02/2022 Type 2 diabetes mellitus wit h hemoglobin A1c goal of less than 8.0% 05/02/2022 Old PR (myocardial infarction) 05/02/2022 Chronic systolic (congestive) heart [...] 30 Mcg, IM, 12 yrs and above (Proximex) 09/09/2022 Hepatitis B, 20+ yrs 08/25/2017 Meningococcal [...] unexpected or indeterminate finding on Tad Silvestre ([id number]) and asks that you review the following [...] reviewed. Thank you, MORGAN Osorio Client Service [facility] documented in this encounter Plan of Treatment Upcoming Encounters Date Type Department Care Team (Latest Contact Info) Description 05/17/2024 7:15 AM EDT Cardiac Studies Cardiac Studies, [facility] Col[facility], [place] [address] [address] 05/19/2024 9:30 AM EDT Office Visit Urology Hari Roth [address] [address] Marie Tran PA-C [address] [address] 05/19/2024 6:10 PM EDT [facility] [place] [address] [address] [facility] [address] [address] 05/23/2024 10:20 AM EDT Office Visit NephrologyMadeline [address] [place] [address] Tesfaye Morirs MD 200 [facility] [place] [address] 06/12/2024 9:30 AM EDT Office Visit Gastroenterology, [facility] [address] [place] [address] Erna Srivastava CRNP [address] [place] [address] 06/26/2024 7:15 AM EDT Hospital Encounter OR [facility] [place], OPERATING ROOM [facility] [place] [address] [place] [facility] [address] Benjamin Cartagena MD [address] [place] [facility] [address] 06/26/2024 7:15 AM EDT - 06/26/2024 9:25 AM EDT Surgery OR [facility] [place], OPERATING ROOM [facility] [place] [address] [place] [facility] [place] [id number] Benjamin Cartagena MD [address] [place] [facility] [place] [address] 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 07/19/2024 12:50 PM EST Office Visit Vascular Surgery, [facility] [address] [place] [address] Benjamin Cartagena MD [address] [place] [facility] [place] [address] 09/19/2024 3:30 PM EST Office Visit Cardiology, [facility] [address] [place] [address] Davy Mota MD [address] [place] [address] 10/13/2024 9:00 AM EST Office Visit Family Practice [facility] [address] [place] [address] Antonio Colon MD [address] [place], [place] [id number] Scheduled Procedures Name Priority Associated Diagnoses Date/Ti [...] Healthcare Agent Relationshi p Communication Lorin Silvestre [facility] Health Care Repr esentative (appointed verbally by patient or by statute hierarchy) Care Teams Parachute Marker Relationship Specialty Start Date End Date Antonio Colon MD [address] [place] [address] PCP - General Family Medicine 02/12/22 documented as of this encounter
--- OUTSIDE RECORDS SUMMARY | 2024-09-21 08:08 | External Medical Summary | Summary of Care ---
Author Name Unknown Organization [facility] Address [address] [place] [address] Phone [phone] Care Team Providers Care Public Relations Consultant Name Role Phone Antonio Colon MD Primary Care Provider [phone] Reason for Visit * Reason Comments Appointment MTDM Discharge (DM) Encounter Details Date Type Department Care Team (Late st Contact Info) Description 05/19/2024 6:10 PM EDT Pharmacy Pharmacy, [address] [address] Type 2 diabetes mellitus with hemoglobin A1c goal of less than 8.0% ([facility])* Allergies No known active allergiesdocumented as of this encounter (statuses as of 05/19/2024) Medications Medication Sig Dispensed Refills Start Date [...] Additional Information Patient taking differently: 10 UnitsSubcutaneous [id number], Reported on 05/08/2024 Metoprolol Succinate ER 25 MG Oral Tablet Extended Release 24 Hour (toPROL XL)Indications:Co ronary artery disease involving [place] coronary artery of [place] heart without angina pectoris TAKE 1 TABLET BY MOUTH EVERY DAY IN THE MORNING 90 Tablet 3 10/05/2023 Active Prasugrel HCl 10 MG Oral Tablet (Effient)Indicati ons:Coronary artery disease involving [place] coronary artery of [place] heart without angina pectoris TAKE 1 TABLET BY MOUTH EVERY DAY IN THE MORNING 90 Tablet 3 10/05/2023 Active Atorvastatin Calcium 40 MG Oral Tablet (Lipitor)Indicati ons:Dyslipidemia, goal LDL below 70 TAKE 1 TABLET BY MOUTH EVERY DAY IN THE MORNING 90 Tablet 3 10/06/2023 Active Juluca 50-25 MG Oral Tablet Take 1 Tablet by mouth daily. 90 Tablet 3 12/01/2023 Active Pen [place] 32G X 4 MM Use as directed. [...] Tablet 3 03/24/2024 Active FreeStyle Carlos 2 [place] DeviceIndications :Type 2 diabetes mellitus with hemoglobin A1c goal of less than 8.0% ([facility]) Use as directed. Use to test BG E10.65 1 Each 04/11/2024 Active FreeStyle Carlos 2 SensorIndications :Type 2 diabetes mellitus with hemoglobin A1c goal of less than 8.0% ([facility]) Use as directed. Use one sensor every 14 days for blood sugar E10.65 1 Each 11 04/11/2024 Active Fiasp FlexTouch 100 UNIT/ML Subcutaneous Solution Pen-injector (Insulin Aspart (w/Niacinamide))I ndications:Type 2 diabetes mellitus with hemoglobin A1c goal of less than 8.0% ([facility]) Inject 10 Units under the skin in the morning and 10 Units at noon and 10 Units before bedtime. With meals. 15 mL 3 04/26/2024 Active Hospital, Clinic, or Other Facility Administered Medication Ordered Dose Route Frequency Start Date End Date Status Albuterol Sulfate (Proventil) (2.5 MG/3ML) 0.083% inhalation solution 2.5 mgIndications:ESRD on dialysis ([facility]),Pre-transplant evaluation for ESRD (end stage renal disease) 2.5 mg NEBULIZER PRN 03/24/2024 Acti ve Albuterol Sulfate (Proventil) (5 MG/ML) 0.5% *conc* inhalation solution 2.5 mgIndications:ESRD on dialysis ([facility]),Pre-transplant evaluation for ESRD (end stage renal disease) 2.5 mg NEBULIZER PRN 03/24/2024 Acti ve documented as of this encounter (statuses as of 05/19/2024) Active Problems Problem Noted Date Diagnosed Date ESRD on dialysis 02/02/2024 History of GI bleed 02/02/2024 Overview: Duodenal ulcer Duodenal ulcer 02/02/2024 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 05/07/2023 Recurrent major depressive disorder, in full rem ission 05/05/2022 Overweight (BMI 25.0-29.9) 05/02/2022 Dyslipidemia 05/02/2022 Coronary artery disease invo lving [place] coronary artery of [place] heart without angina pectoris 05/02/2022 Type 2 diabetes mellitus wit h hemoglobin A1c goal of less than 8.0% 05/02/2022 Old HI (myocardial infarction) 05/02/2022 Chronic systolic (congestive) heart failure 04/14 Left bundle branch block 05/02/2022 HTN, goal below 130/80 HIV positive documented as of this encounter (statuses as of 05/19/2024) Resolved Problems Problem Noted Date Diagnosed Date Resolved Date Chronic heart failure with p reserved ejection fraction 11/24/2022 02/04/2023 Kidney disease, chronic, sta ge IV (GFR 15-29 ml/min) 05/02/2022 02/02/2024 ARDS (adult respiratory distress syndrome) 06/17/2012 05/02/2022 Acute pancreatitis 06/14/2012 Acute respiratory distress 06/14/2012 0 05/02/2022 documented as of this encounter (statuses as of 05/19/2024) Immunizations Name Administration Dates Next Due COVID-19 mRNA, LNP-s, No Pre serve, 2-Dose Series (Moderna) 11/27/2020,10/24/2020 COVID-19, MRNA-LNP, 23-24, P F, 50 MCG/0.5 mL, 12 YRS AND ABOVE, IM (MODERNA-Spikevax) 08/05/2021 Covid-19, Mrna, Lnp-s, Pf, B ivalent, 30 Mcg, IM, 12 yrs and above ([employer]) 09/09/2022 Hepatitis B, 20+ yrs 08/25/2017 Meningococcal [...] this encounter Progress Notes * Aida Storey, youth care specialist - 05/19/2024 8:08 AM EDT Tad Silvestre has not contacted the clinic to schedule/reschedule an appointment for DM management per referral from PCP despite multiple requests to do so by our team. Patient is discharged from [facility] services at this time. Thank you, Aida Storey Manager Eligibility [facility] ([facility]) (Formerly Telepharmacy) 05/19/2024, 8:09 AM documented in this encounter Plan of Treatment Upcoming Encounters Date Type Department Care Team (Latest Contact Info) Description 05/23/2024 10:20 AM EDT [facility] [address] [place] [address] Tesfaye Morris MD [address] [place] [address] 06/12/2024 9:30 AM EDT Office Visit Gastroenterology, [facility] [address] [place] [address] Erna Srivastava CRNP [address] [place] [address] 06/26/2024 7:15 AM EDT Hospital Encounter OR [facility], OPERATING ROOM [facility] [address] [place] [address] Benjamin Cartagena MD [address] [place] [address] 06/26/2024 7:15 AM EDT - 06/26/2024 9:25 AM EDT Surgery OR [facility], OPERATING ROOM [facility] [address] [place] [address] Benjamin Cartagena MD [address] [place] [address] 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 07/19/2024 12:50 PM EST Office Visit Vascular Surgery, [facility] [address] [place] [address] Benjamin Cartagena MD [address] [place] [address] 09/19/2024 3:30 PM EST Office Visit Cardiology, [facility] [address] [place] [address] Davy Mota MD [address] [place] [address] 10/13/2024 9:00 AM EST Office Visit Family Practice [facility] [address] [place] [address] Antonio Colon MD [address] [place] [address] Scheduled Procedures Name Priority Associated Diagnoses Date/Ti [...] Healthcare Agent Relationshi p Communication Lorin Silvestre [facility] Care Repr esentative (appointed verbally by patient or by statute hierarchy) Care Teams Public Relations Consultant Relationship Specialty Start Date End Date Antonio Colon MD [address] [address] PCP - General Family Medicine 02/12/22 documented as of this encounter
--- OUTSIDE RECORDS SUMMARY | 2024-09-21 08:08 | External Medical Summary | Summary of Care ---
Author Name Unknown Organization [facility] Address [address] [place] [address] Phone [phone] Care Team Providers Care Utilities Service Investigator Name Role Phone Antonio Colon MD Primary Care Provider [phone] Reason for Visit * Reason Comments Appointment MTDM Discharge (DM) Encounter Details Date Type Department Care Team (Late st Contact Info) Description 05/19/2024 6:10 PM EDT Pharmacy Pharmacy, [address] [address] Type 2 diabetes mellitus with hemoglobin A1c goal of less than 8.0% ([facility])* Allergies No known active allergiesdocumented as [...] Additional Information Patient taking differently: 10 UnitsSubcutaneous [id number], Reported on 05/08/2024 Metoprolol Succinate ER 25 MG Oral Tablet Extended Release 24 Hour (toPROL XL)Indications:Co ronary artery disease involving [place] coronary artery of [place] heart without angina pectoris TAKE 1 TABLET BY MOUTH EVERY DAY IN THE MORNING 90 Tablet 3 10/05/2023 Active Prasugrel HCl 10 MG Oral Tablet (Effient)Indicati ons:Coronary artery disease involving [place] coronary artery of [place] heart without angina pectoris TAKE 1 TABLET BY MOUTH EVERY DAY IN THE MORNING 90 Tablet 3 10/05/2023 Active Atorvastatin Calcium 40 MG Oral Tablet (Lipitor)Indicati ons:Dyslipidemia, goal LDL below 70 TAKE 1 TABLET BY MOUTH EVERY DAY IN THE MORNING 90 Tablet 3 10/06/2023 Active Juluca 50-25 MG Oral Tablet Take 1 Tablet by mouth daily. 90 Tablet 3 12/01/2023 Active Pen [place] 32G X 4 MM Use as directed. [...] Tablet 3 03/24/2024 Active FreeStyle Carlos 2 [place] DeviceIndications :Type 2 diabetes mellitus with hemoglobin A1c goal of less than 8.0% ([facility]) Use as directed. Use to test BG E10.65 1 Each 04/11/2024 Active FreeStyle Carlos 2 SensorIndications :Type 2 diabetes mellitus with hemoglobin A1c goal of less than 8.0% ([facility]) Use as directed. Use one sensor every 14 days for blood sugar E10.65 1 Each 11 04/11/2024 Active Fiasp FlexTouch 100 UNIT/ML Subcutaneous Solution Pen-injector (Insulin Aspart (w/Niacinamide))I ndications:Type 2 diabetes mellitus with hemoglobin A1c goal of less than 8.0% ([facility]) Inject 10 Units under the skin in the morning and 10 Units at noon and 10 Units before bedtime. With meals. 15 mL 3 04/26/2024 Active Hospital, Clinic, or Other Facility Administered Medication Ordered Dose Route Frequency Start Date End Date Status Albuterol Sulfate (Proventil) (2.5 MG/3ML) 0.083% inhalation solution 2.5 mgIndications:ESRD on dialysis ([facility]),Pre-transplant evaluation for ESRD (end stage renal disease) 2.5 mg NEBULIZER PRN 03/24/2024 Acti ve Albuterol Sulfate (Proventil) (5 MG/ML) 0.5% *conc* inhalation solution 2.5 mgIndications:ESRD on dialysis ([facility]),Pre-transplant evaluation for ESRD (end stage [...] Dyslipidemia 05/02/2022 Coronary artery disease invo lving [place] coronary artery of [place] heart without angina pectoris 05/02/2022 Type 2 [...] 30 Mcg, IM, 12 yrs and above (Calibrus) 09/09/2022 Hepatitis B, 20+ yrs 08/25/2017 Meningococcal [...] this encounter Progress Notes * Aida Storey, time recorder - 05/19/2024 8:08 AM EDT Tad Silvestre has not contacted the clinic to schedule/reschedule an appointment for DM management per referral from PCP despite multiple requests to do so by our team. Patient is discharged from [facility] services at this time. 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 Centralized Clinical Pharmacy Services ([facility]PS) (Formerly Telepharmacy) 05/19/2024, 8:09 AM documented in this encounter Plan of Treatment Upcoming Encounters Date Type Department Care Team (Latest Contact Info) Description 05/19/2024 9:30 AM EDT Office Visit Urology Hari Roth [address] [address] Marie Tran PA-C [address] [place] [address] 05/23/2024 10:20 AM EDT Office Visit Nephrology, [facility] [address] [place] [address] Tesfaye Morris MD [address] [facility] [place] [address] 06/12/2024 9:30 AM EDT Office Visit Gastroenterology, [facility] [address] [place] [address] Erna Srivastava CRNP [address] [place] [address] 06/26/2024 7:15 AM EDT Hospital Encounter OR [facility], OPERATING ROOM C, [facility] [address] [place] [address] Benjamin Cartagena MD [address] [place] [address] 06/26/2024 7:15 AM EDT - 06/26/2024 9:25 AM EDT Surgery OR [facility], OPERATING ROOM [facility] [address] [place] [address] Benjamin Cartagnea MD [address] [place], [place] [id number] 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 07/19/2024 12:50 PM EST Office Visit Vascular Surgery, [facility] [address] [facility] [place] [address] Benjamin Cartagena MD [address] [place], [place] [id number] 09/19/2024 3:30 PM EST Office Visit Cardiology, [facility] [address] [facility] [place] [address] Davy Mota MD [address] [place] [address] 10/13/2024 9:00 AM EST Office Visit Family Practice [facility] [address] [facility] [place] [address] Antonio Colon MD [address] [place] [address] Scheduled Procedures Name Priority Associated Diagnoses Date/Ti [...] Healthcare Agent Relationshi p Communication Lorin Silvestre [facility] Health Care Repr esentative (appointed verbally by patient or by statute hierarchy) Care Teams Utilities Service Investigator Relationship Specialty Start Date End Date Antonio Colon MD [address] [place] [address] PCP - General Family Medicine 02/12/22 documented as of this encounter
--- OUTSIDE RECORDS SUMMARY | 2024-09-21 08:08 | External Medical Summary | Summary of Care ---
Author Name Unknown Organization [facility] Address [address] [place] [address] Phone [phone] Care Team Providers Care Clinical Liaison Name Role Phone Antonio Colon MD Primary Care Provider [phone] Encounter Details Date Type Department Care Team (Late st Contact Info) Description 05/19/2024 Telephone Urology Hari Roth [address] [place] [address] Marie Tran PA-C [address] [place] [address] Allergies No known active allergiesdocumented as of [...] Additional Information Patient taking differently: 10 UnitsSubcutaneous [id number], Reported on 05/08/2024 Metoprolol Succinate ER 25 MG Oral Tablet Extended Release 24 Hour (toPROL XL)Indications:Co ronary artery disease involving samish coronary artery of samish heart without angina pectoris TAKE 1 TABLET BY MOUTH EVERY DAY IN THE MORNING 90 Tablet 3 10/05/2023 Active Prasugrel HCl 10 MG Oral Tablet (Effient)Indicati ons:Coronary artery disease involving samish coronary artery of samish heart without angina pectoris TAKE 1 TABLET BY MOUTH EVERY DAY IN THE MORNING 90 Tablet 3 10/05/2023 Active Atorvastatin Calcium 40 MG Oral Tablet (Lipitor)Indicati ons:Dyslipidemia, goal LDL below 70 TAKE 1 TABLET BY MOUTH EVERY DAY IN THE MORNING 90 Tablet 3 10/06/2023 Active Juluca 50-25 MG Oral Tablet Take 1 Tablet by mouth daily. 90 Tablet 3 12/01/2023 Active Pen [place] 32G X 4 MM Use as directed. [...] Tablet 3 03/24/2024 Active FreeStyle Carlos 2 [place] DeviceIndications :Type 2 diabetes mellitus with hemoglobin A1c goal of less than 8.0% ([facility]) Use as directed. Use to test BG E10.65 1 Each 04/11/2024 Active FreeStyle Carlos 2 SensorIndications :Type 2 diabetes mellitus with hemoglobin A1c goal of less than 8.0% ([facility]) Use as directed. Use one sensor every 14 days for blood sugar E10.65 1 Each 04/11/2024 Active Fiasp FlexTouch 100 UNIT/ML Subcutaneous Solution Pen-injector (Insulin Aspart (w/Niacinamide))I ndications:Type 2 diabetes mellitus with hemoglobin A1c goal of less than 8.0% ([facility]) Inject 10 Units under the skin in the morning and 10 Units at noon and 10 Units before bedtime. With meals. 15 mL 3 04/26/2024 Active Hospital, Clinic, or Other Facility Administered Medication Ordered Dose Route Frequency Start Date End Date Status Albuterol Sulfate (Proventil) (2.5 MG/3ML) 0.083% inhalation solution 2.5 mgIndications:ESRD on dialysis ([facility]),Pre-transplant evaluation for ESRD (end stage renal disease) 2.5 mg NEBULIZER PRN 03/24/2024 Acti ve Albuterol Sulfate (Proventil) (5 MG/ML) 0.5% *conc* inhalation solution 2.5 mgIndications:ESRD on dialysis ([facility]),Pre-transplant evaluation for ESRD (end stage renal [...] Dyslipidemia 05/02/2022 Coronary artery disease invo lving samish coronary artery of samish heart without angina pectoris 05/02/2022 Type 2 diabetes mellitus wit h hemoglobin A1c goal of less than 8.0% 05/02/[address] (myocardial infarction) 05/02/2022 Chronic [...] 30 Mcg, IM, 12 yrs and above ([employer]) 09/09/2022 Hepatitis B, 20+ yrs 08/25/2017 Meningococcal [...] No 01/18/2024 Does the household have a tuba city regional health care corporationlar source of income? (Household - for ages [...] Miscellaneous Notes * Telephone Encounter - Marie Tran PA-C [...] Care Team (Latest Contact Info) Description 05/19/2024 6:10 PM EDT Pharmacy Pharmacy, [facility] [address] [facility] [place] [address] Vinicius [facility] [address] [facility] [place] [address] Type 2 diabetes mellitus with hemoglobin A1c goal of less than 8.0% (HCC)* 05/23/2024 10:20 AM EDT Office Visit Nephrology, [facility] [address] [facility] [place] [address] Tesfaye Morris MD [address] [facility] [place] [address] 06/12/2024 9:30 AM EDT Office Visit Gastroenterology, [facility] [place] [address] Erna Srivastava CRNP 132 [place] [address] 06/26/2024 7:15 AM EDT Hospital Encounter OR [facility], OPERATING ROOM [facility], [facility] [address] [place] [address] Benjamin Cartagena MD [address] [place] [address] 06/26/2024 7:15 AM EDT - 06/26/2024 9:25 AM EDT Surgery OR [facility], OPERATING ROOM [facility], [facility] [address] [place] [address] Benjamin Cartagena MD [address] [place] [address] 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 07/19/2024 12:50 PM EST Office Visit Vascular Surgery, [facility] [address] [place] [address] Benjamin Cartagena MD [address] [place] [address] 09/19/2024 3:30 PM EST Office Visit Cardiology, [facility] [address] [place] [address] Davy Mota MD [address] [place] [address] 10/13/2024 9:00 AM EST Office Visit Family Practice [facility] [address] [place] [address] Antonio Colon MD [address] [facility] [place] [address] Scheduled Procedures Name Priority Associated Diagnoses Date/Ti [...] Communication Lorin Silvestre [facility] Care Repr esentative (appointed verbally by patient or by statute hierarchy) Care Teams Clinical Liaison Relationship Specialty Start Date End Date Antonio Colon MD [address] [place] [address] PCP - General Family Medicine 02/12/22 documented as of this encounter
--- OUTSIDE RECORDS SUMMARY | 2024-09-21 08:08 | External Medical Summary | Summary of Care ---
Author Name Unknown Organization [facility] Address [address] [place] [address] Phone [phone] Care Team Providers Care Director Mobile Name Role Phone Antonio Colon MD Primary Care Provider [phone] Reason for Visit * Reason Onset Date Comments Test Results 05/17/2024 Encounter Details Date Type Department Care Team (Late st Contact Info) Description 05/17/2024 Telephone Cardiology, Hari [address] [place] [address] Елена Alford PA-C [address] [place] [address] Test Results Allergies No known active allergiesdocumented as of this encounter (statuses as of 05/17/2024) Medications Medication Sig Dispensed Refills Start Date [...] Additional Information Patient taking differently: 10 UnitsSubcutaneous [id number], Reported on 05/08/2024 Metoprolol Succinate ER 25 MG Oral Tablet Extended Release 24 Hour (toPROL XL)Indications:Co ronary artery disease involving cap[place] grande coronary artery of [place] heart without angina pectoris TAKE 1 TABLET BY MOUTH EVERY DAY IN THE MORNING 90 Tablet 3 10/05/2023 Active Prasugrel HCl 10 MG Oral Tablet (Effient)Indicati ons:Coronary artery disease involving cap[place] grande coronary artery of cap[place] grande heart without angina pectoris TAKE 1 [...] daily. 90 Tablet 3 12/01/2023 Active Pen [place] 32G X 4 MM Use as directed. [...] Tablet 3 03/24/2024 Active FreeStyle Carlos 2 [place] DeviceIndications :Type 2 diabetes mellitus with hemoglobin A1c goal of less than 8.0% ([facility]) Use as directed. Use to test BG E10.65 1 Each 04/11/2024 Active FreeStyle Carlos 2 SensorIndications :Type 2 diabetes mellitus with hemoglobin A1c goal of less than 8.0% ([facility]) Use as directed. Use one sensor every 14 days for blood sugar E10.65 1 Each 11 04/11/2024 Active Fiasp FlexTouch 100 UNIT/ML Subcutaneous Solution Pen-injector (Insulin Aspart (w/Niacinamide))I ndications:Type 2 diabetes mellitus with hemoglobin A1c goal of less than 8.0% ([facility]) Inject 10 Units under the skin in the morning and 10 Units at noon and 10 Units before bedtime. With meals. 15 mL 3 04/26/2024 Active Hospital, Clinic, or Other Facility Administered Medication Ordered Dose Route Frequency Start Date End Date Status Albuterol Sulfate (Proventil) (2.5 MG/3ML) 0.083% inhalation solution 2.5 mgIndications:ESRD on dialysis ([facility]),Pre-transplant evaluation for ESRD (end stage renal disease) 2.5 mg NEBULIZER PRN 03/24/2024 Acti ve Albuterol Sulfate (Proventil) (5 MG/ML) 0.5% *conc* inhalation solution 2.5 mgIndications:ESRD on dialysis ([facility]),Pre-transplant evaluation for ESRD (end stage renal disease) 2.5 mg NEBULIZER PRN 03/24/2024 Acti ve documented as of this encounter (statuses as of 05/17/2024) Active Problems Problem Noted Date Diagnosed Date ESRD on dialysis 02/02/2024 History of GI bleed 02/02/2024 Overview: Duodenal ulcer Duodenal ulcer 02/02/2024 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 05/07/2023 Recurrent major depressive disorder, in full rem ission 05/05/2022 Overweight (BMI 25.0-29.9) 05/02/2022 Dyslipidemia 05/02/2022 Coronary artery disease invo lving capitan grande coronary artery of cap[place] grande heart without angina pectoris 05/02/2022 Type 2 diabetes mellitus wit h hemoglobin A1c goal of less than 8.0% 05/02/2022 Old [place] (myocardial infarction) 05/02/2022 Chronic systolic (congestive) heart failure 04/14 Left bundle branch block 05/02/2022 HTN, goal below 130/80 HIV positive documented as of this encounter (statuses as of 05/17/2024) Resolved Problems Problem Noted Date Diagnosed Date Resolved Date Chronic heart failure with p reserved ejection fraction 11/24/2022 02/04/2023 Kidney disease, chronic, sta ge IV (GFR 15-29 ml/min) 05/02/2022 02/02/2024 ARDS (adult respiratory distress syndrome) 06/17/2012 05/02/2022 Acute pancreatitis 06/14/2012 Acute respiratory distress 06/14/2012 0 05/02/2022 documented as of this encounter (statuses as of 05/17/2024) Immunizations Name Administration Dates Next Due COVID-19 mRNA, LNP-s, No Pre serve, 2-Dose Series (Moderna) 11/27/2020,10/24/2020 COVID-19, MRNA-LNP, 23-24, P F, 50 MCG/0.5 mL, 12 YRS AND ABOVE, IM (MODERNA-Spikevax) 08/05/2021 Covid-19, Mrna, Lnp-s, Pf, B ivalent, 30 Mcg, IM, 12 yrs and above (INCHRON) 09/09/2022 Hepatitis B, 20+ yrs 08/25/2017 Meningococcal [...] encounter Miscellaneous Notes * Telephone Encounter - Michell Navarro CMA - 05/17/2024 12:46 PM EDT Letter mailed. * Telephone Encounter - Michell Navarro CMA - 05/17/2024 12:45 PM EDT ----- Message from Елена Alford sent at 05/17/2024 11:45 AM EDT ----- Echo with normal ejection fraction, overall stable echo. No further cardiac testing needed at this time. documented in this encounter Plan of Treatment Upcoming Encounters Date Type Department Care Team (Latest Contact Info) Description 05/19/2024 9:30 AM EDT Office Visit Urology Hari Roth [address] [place] [address] Marie Tran PA-C [address] [place] [address] 05/19/2024 6:10 PM EDT Pharmacy Pharmacy, [facility] [address] [place] [address] Vinicius [facility] [address] [place] [address] 05/23/2024 10:20 AM EDT Office Visit Nephrology, [facility] [address] [place] [address] Tesfaye Morris MD [address] [place] [address] 06/12/2024 9:30 AM EDT Office Visit Gastroenterology, [facility] [address] [address] Erna Srivastava CRNP [address] [place] [address] 06/26/2024 7:15 AM EDT Hospital Encounter OR [facility], OPERATING ROOM [facility], [facility] [place] [address] [place] [facility] [place] [address] Benjamin Cartagena MD [address] [place] [facility] [place] [address] 06/26/2024 7:15 AM EDT - 06/26/2024 9:25 AM EDT Surgery OR [facility], OPERATING ROOM [facility], [facility] [address] [facility] [place] [phone] Benjamin Cartagena MD [address] [facility], [place] [id number] 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 07/19/2024 12:50 PM EST Office Visit Vascular Surgery, [facility] [address] [place] [address] Benjamin Cartagena MD [address] [place] [facility] [place] [address] 09/19/2024 3:30 PM EST Office Visit Cardiology, [facility] [address] [place] [address] Davy Mota MD [address] [place] [address] 10/13/2024 9:00 AM EST Office Visit Family Practice [facility] [address] [place] [address] Antonio Colon MD [address] [place] [address] Scheduled Procedures Name Priority Associated Diagnoses Date/Ti [...] p Communication Lorin Silvestre [facility] Health Care Repr esentative (appointed verbally by patient or by statute hierarchy) Care Teams Director [place] Relationship Specialty Start Date End Date Antonio Colon MD [address] [place] [address] PCP - General Family Medicine 02/12/22 documented as of this encounter
--- OUTSIDE RECORDS SUMMARY | 2024-09-21 08:09 | External Medical Summary | Summary of Care ---
Author Name Unknown Organization [facility] Address [address] [place] [address] Phone [phone] Care Team Providers Care Warehouse Traffic Supervisor Name Role Phone Antonio Colon MD Primary Care Provider [phone] Reason for Referral * Precert (Within 10 days (routine)) - Authorized Specialty Diagnoses / Procedures Referred By Marques garg Referred To Contact Radiology Diagnoses ESRD on dialysis (HCC) Pre-transplant evaluation for ESRD (end stage renal disease) Procedures CT CHEST WO CONTRAST Librado Stubbs MD [address] [place] [address] Referral ID Status Reason Start Date Expiration Date V isits Requested Visits Authorized [id number] Authorized 03/17/2024 999 [id number] Reason for Visit * Precert (Within 10 days (routine)) - Authorized Specialty Diagnoses / Procedures Referred By Marques garg Referred To Contact Radiology Diagnoses ESRD on dialysis (HCC) Pre-transplant evaluation for ESRD (end stage renal disease) Procedures CT CHEST WO CONTRAST Librado Stubbs MD [address] [place] [address] Referral ID Status Reason Start Date Expiration Date V isits Requested Visits Authorized [id number] Authorized 03/17/[phone] Encounter Details Date Type Department Care Team (Latest Contact Info) Description 05/08/2024 2:00 PM EDT - 05/08/2024 11:59 PM EDT Hospital Encounter Radiology, [place] [address] [place] [facility] [address] Arrived Discharge Disposition: Home - Self Care Allergies No known active allergiesdocumented as of this encounter (statuses as of 05/09/2024) Medications Medication Sig Dispensed Refills Start Date [...] Additional Information Patient taking differently: 10 UnitsSubcutaneous [id number], Reported on 05/08/2024 Metoprolol Succinate ER 25 MG Oral Tablet Extended Release 24 Hour (toPROL XL)Indications:Co ronary artery disease involving pamunkey coronary artery of pamunkey heart without angina pectoris TAKE 1 TABLET BY MOUTH EVERY DAY IN THE MORNING 90 Tablet 3 10/05/2023 Active Prasugrel HCl 10 MG Oral Tablet (Effient)Indicati ons:Coronary artery disease involving pamunkey coronary artery of [...] daily. 90 Tablet 3 12/01/2023 Active Pen [place] 32G X 4 MM Use as directed. [...] Tablet 3 03/24/2024 Active FreeStyle Carlos 2 [place] DeviceIndications :Type 2 diabetes mellitus with hemoglobin A1c goal of less than 8.0% ([facility]) Use as directed. Use to test BG E10.65 1 Each 04/11/2024 Active FreeStyle Carlos 2 SensorIndications :Type 2 diabetes mellitus with hemoglobin A1c goal of less than 8.0% ([facility]) Use as directed. Use one sensor every 14 days for blood sugar E10.65 1 Each 11 04/11/2024 Active Fiasp FlexTouch 100 UNIT/ML Subcutaneous Solution Pen-injector (Insulin Aspart (w/Niacinamide))I ndications:Type 2 diabetes mellitus with hemoglobin A1c goal of less than 8.0% ([facility]) Inject 10 Units under the skin in the morning and 10 Units at noon and 10 Units before bedtime. With meals. 15 mL 3 04/26/2024 Active Hospital, Clinic, or Other Facility Administered Medication Ordered Dose Route Frequency Start Date End Date Status Albuterol Sulfate (Proventil) (2.5 MG/3ML) 0.083% inhalation solution 2.5 mgIndications:ESRD on dialysis ([facility]),Pre-transplant evaluation for ESRD (end stage renal disease) 2.5 mg NEBULIZER PRN 03/24/2024 Acti ve Albuterol Sulfate (Proventil) (5 MG/ML) 0.5% *conc* inhalation solution 2.5 mgIndications:ESRD on dialysis ([facility]),Pre-transplant evaluation for ESRD (end stage renal disease) 2.5 mg NEBULIZER PRN 03/24/2024 Acti ve documented as of this encounter (statuses as of 05/09/2024) Active Problems Problem Noted Date Diagnosed Date [...] as of this encounter (statuses as of 05/09/2024) Resolved Problems Problem Noted Date Diagnosed Date Resolved Date Chronic heart failure with p reserved ejection fraction 11/24/2022 02/04/2023 Kidney disease, chronic, sta ge IV (GFR 15-29 ml/min) 05/02/2022 02/02/2024 ARDS (adult respiratory distress syndrome) 06/17/2012 05/02/2022 Acute pancreatitis 06/14/2012 Acute respiratory distress 06/14/2012 0 05/02/2022 documented as of this encounter (statuses as of 05/09/2024) Immunizations Name Administration Dates Next Due COVID-19 [...] 7:15 AM EDT [facility] [address] [address] 05/19/2024 9:30 AM EDT Office Visit Urology Hari Roth [address] [place] [address] Marie Tran PA-C [address] [place] [address] 05/19/2024 6:10 PM EDT Pharmacy Pharmacy, [facility] [address] [place] [address] Vinic[address] [facility] [address] [address] 05/23/2024 10:20 AM EDT Office Visit NephrologyMadeline [address] [place] [address] Tesfaye Morris MD [address] [place] [address] 06/12/2024 9:30 AM EDT [facility] [address] [place] [address] Erna Srivastava CRNP [address] [place] [address] 06/26/2024 7:15 AM EDT Hospital Encounter OR [facility], OPERATING ROOM [facility] [address] [place] [address] Benjamin Cartagena MD [address] [place] [address] 06/26/2024 7:15 AM EDT - 06/26/2024 9:25 AM EDT Surgery OR [facility], OPERATING ROOM [facility], [facility] [address] [place] [address] Benjamin Cartagena MD [address], [place] [id number] 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 07/19/2024 12:50 PM EST Office Visit Vascular Surgery, [facility] [address] [place] [address] Benjamin Cartagena MD [address] [place] [address] 09/19/2024 3:30 PM EST Office Visit Cardiology, [facility] [address] [place] [address] Davy Mota MD [address] [place] [address] 10/13/2024 9:00 AM EST Office Visit Family Practice [facility] [address] [place] [address] Antonio Colon MD [address] [place] [address] Pending Results Name Type Priority Associated Diagnoses Date /Time CT CHEST WO CONTRAST Medical Imaging Routine ESRD on dialysis (HCC) Pre-transplant evaluation for ESRD (end stage renal disease) 05/08/2024 2:19 PM EDT Scheduled Orders Name Type Priority Associated Diagnoses Orde r Schedule CT CHEST WO CONTRAST Medical Imaging Routine ESRD on dialysis (HCC) Pre-transplant evaluation for ESRD (end stage renal disease) 1 Occurrences starting 05/08/2024 until 05/08/2024 Scheduled Procedures Name Priority Associated Diagnoses Date/Ti [...] 06/19/2021, Additional history exists HbA1c 10/12/2024 04/11/2024, 05/2 10/2023, 05/07/2023, Additional history exists Colonoscopy 01/06/2025 01/07/2024, 06/0 05/2023, 02/19/2023 Colorectal Cancer Screening 01/06/2025 Depression Monitoring 01/17/2025 01/18/2024 Diabetic Foot Exam 01/17/2025 01/18/2024, 11/24/2022 TSH 02/01/2025 02/02/2024, 01/12, 01/18/2024 DTap/Tdap Vaccines (2 - Td or Tdap) 07/23/2027 07/23/2017 AAA Screening Completed 01/21/2022, 01/11, 10/06/2019, Additional history exists Albumin/Creatinine Ratio Discontinued 05/07/2023, 11/2021 RETIRED - COLONOSCOPY-ANNUAL AGES 18-100 Discontinued 01/07/2024, 02/19/2023, 02/19/2023 Nephrology Referral Discontinued 05/08/2024 HPV (Gardasil) Vaccine Aged Out No lo nger eligible based on patient's age to complete this topic documented as of this encounter Medical Devices Not on filedocumented as of this encounter Visit Diagnoses Diagnosis ESRD on dialysis (HCC)- Primary End stage renal disease ESRD on dialysis (HCC) End stage renal disease ESRD on dialysis (HCC) End stage renal disease Pre-transplant evaluation for ESRD (end stage renal disease) Other specified pre-operative examination ESRD on dialysis (HCC) End stage renal [...] patient or by statute hierarchy) Care Teams Warehouse Traffic Supervisor Relationship Specialty Start Date End Date Antonio Colon MD [address] [place] [address] PCP - General Family Medicine 02/12/22 documented as of this encounter
--- OUTSIDE RECORDS SUMMARY | 2024-09-21 08:09 | External Medical Summary | Summary of Care ---
Author Name Unknown Organization [facility] Address [address] [place] [address] Phone [phone] Care Team Providers Care Airplane Mechanic Name Role Phone Antonio Colon MD Primary Care Provider [phone] Reason for Visit * Reason Comments NEW PATIENT * Evaluate & Treat - Unlimited Visits (Within 3 days (urgent)) - Authorized Specialty Diagnoses / Procedures Referred By Contact Referred To Contact Vascular Surgery / Cardiovascular Surgery Diagnoses ESRD on dialysis (HCC) Tesfaye Morris MD [address] [place] [address] [facility] [address] [place] [address] Referral ID Status Reason Start Date Expiration Date Visits Requested Visits Authorized [id number] Authorized Specialty Services Required 04/05/2024 [id number] Encounter Details Date Type Department Care Team (Late st Contact Info) Description 05/03/2024 10:30 AM EDT Office Visit Vascular Surgery, [facility] 132 [place] [address] Benjamin Cartagena MD [address] [place] [address] ESRD on dialysis (HCC)* Allergies No known active allergiesdocumented as of this encounter (statuses as of 05/03/2024) Medications Medication Sig Dispensed Refills Start Date [...] THE MORNING. 30 mL 1 04/29/2023 Active Calcitriol 0.5 MCG Oral Capsule (Rocaltrol)Indicati ons:CKD (chronic kidney disease) stage 4, GFR 15-29 ml/min ([facility]) TAKE 1 CAPSULE (0.5 MCG) BY MOUTH IN THE MORNING. 90 Capsule 5 09/15/2023 Active Metoprolol Succinate ER 25 MG Oral Tablet Extended Release 24 Hour (toPROL XL)Indications:Bayron nary artery disease involving quinault coronary artery of quinault heart without angina pectoris TAKE 1 TABLET BY MOUTH EVERY DAY IN THE MORNING 90 Tablet 3 10/05/2023 Active Prasugrel HCl 10 MG Oral Tablet (Effient)Indication s:Coronary artery disease involving quinault coronary artery of quinault heart without angina pectoris TAKE 1 TABLET BY MOUTH EVERY DAY IN THE MORNING 90 Tablet 3 10/05/2023 Active Atorvastatin Calcium 40 MG Oral Tablet (Lipitor)Indication s:Dyslipidemia, goal LDL below 70 TAKE 1 TABLET BY MOUTH EVERY DAY IN THE MORNING 90 Tablet 3 10/06/2023 Active Juluca 50-25 MG Oral Tablet Take 1 Tablet by mouth daily. 90 Tablet 3 12/01/2023 Active Pen Rico 32G X 4 MM Use as directed. Use to inject insulin 4 times daily E11.9 400 Each 3 12/02/2023 Active NovoLOG FlexPen 100 UNIT/ML Subcutaneous Solution Pen-injector (insulin aspart) INJECT 10 UNITS THREE TIMES A DAY WITH MEALS or as directed 15 mL 5 02/21/2024 Active Additional Information Patient not taking.Reported on 02/25/2024 Sevelamer Carbonate 800 MG Oral Tablet (Renvela) Take 1 Tablet by mouth in the morning and 1 Tablet at noon and 1 Tablet in the evening. Take with meals. 02/08/2024 Active FLUoxetine HCl 20 MG Oral Capsule (PROzac)Indications :ST elevation (STEMI) myocardial infarction involving left circumflex [...] Tablet 3 03/24/2024 Active FreeStyle Carlos 2 [place] DeviceIndications:T ype 2 diabetes mellitus with hemoglobin A1c goal of less than 8.0% ([facility]) Use as directed. Use to test BG E10.65 1 Each 04/11/2024 Active FreeStyle Carlos 2 SensorIndications:T ype 2 diabetes mellitus with hemoglobin A1c goal of less than 8.0% ([facility]) Use as directed. Use one sensor every 14 days for blood sugar E10.65 1 Each 11 04/11/2024 Active Fiasp FlexTouch 100 UNIT/ML Subcutaneous Solution Pen-injector (Insulin Aspart (w/Niacinamide))Ind ications:Type 2 diabetes mellitus with hemoglobin A1c goal of less than 8.0% ([facility]) Inject 10 Units under the skin in the morning and 10 Units at noon and 10 Units before bedtime. With meals. 15 mL 3 04/26/2024 Active Hospital, Clinic, or Other Facility Administered Medication Ordered Dose Route Frequency Start Date End Date Status Albuterol Sulfate (Proventil) (2.5 MG/3ML) 0.083% inhalation solution 2.5 mgIndications:ESRD on dialysis ([facility]),Pre-transplant evaluation for ESRD (end stage renal disease) 2.5 mg NEBULIZER PRN 03/24/2024 Acti ve Albuterol Sulfate (Proventil) (5 MG/ML) 0.5% *conc* inhalation solution 2.5 mgIndications:ESRD on dialysis (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 05/07/2023 Recurrent major depressive disorder, in full rem ission 05/05/2022 Overweight (BMI 25.0-29.9) 05/02/2022 Dyslipidemia 05/02/2022 Coronary artery disease invo lving quinault coronary artery of quinault heart without angina pectoris 05/02/2022 Type 2 diabetes mellitus wit h hemoglobin A1c goal of less than 8.0% 05/02/2022 Old LA (myocardial infarction) 05/02/2022 Chronic systolic (congestive) heart failure 04/14 Left bundle branch block 05/02/2022 HTN, goal below 130/80 HIV positive documented as of this encounter (statuses as of 05/03/2024) Resolved Problems Problem Noted Date Diagnosed Date Resolved Date Chronic heart failure with p reserved ejection fraction 11/24/2022 02/04/2023 Kidney disease, chronic, sta ge IV (GFR 15-29 ml/min) 05/02/2022 02/02/2024 ARDS (adult respiratory distress syndrome) 06/17/2012 05/02/2022 Acute pancreatitis 06/14/2012 Acute respiratory distress 06/14/2012 0 05/02/2022 documented as of this encounter (statuses as of 05/03/2024) Immunizations Name Administration Dates Next Due COVID-19 mRNA, LNP-s, No Pre serve, 2-Dose Series (Moderna) 11/27/2020,10/24/2020 COVID-19, MRNA-LNP, 23-24, P F, 50 MCG/0.5 mL, 12 YRS AND ABOVE, IM (MODERNA-Spikevax) 08/05/2021 Covid-19, Mrna, Lnp-s, Pf, B ivalent, 30 Mcg, IM, 12 yrs and above (MobiMagic) 09/09/2022 Hepatitis B, 20+ yrs 08/25/2017 Meningococcal [...] 1974 Smokeless Tobacco: Never Tobacco Cessation:Counseling Given: No [...] Reading Time Taken Comments Blood Pressure 122/72 05/03/2024 10:36 AM EDT Pulse 68 05/03/2024 10:36 AM EDT Temperature 35.7 C (96.3 F) 05/03/2024 10:36 AM E DT Respiratory Rate - - Oxygen Saturation - - Inhaled Oxygen Concentration - - Weight 78.7 kg (173 lb 8 oz) 05/03/2024 10:36 AM EDT Height - - Body Mass Index 25.99 04/27/2024 11:15 AM EDT documented in this encounter Progress Notes * Libr[place] PA-C - 05/03/2024 10:10 AM EDT Images from the original note were not included. Date of Service: 05/03/2024 11:10 AM Tad Silvestre is a 69 year old male. Patient being seen in consultation at the request of Antonio Colon MD Chief Complaint: New pt, needs AVF creation for HD HPI: Former smoker with DM, HFnEF, CAD/prior LA/5 stents, HTN, HLD, PUD, HIV and ESRD on HD On kidney transplant list Has right TDC in place Receives HD [facility] in [place], T/H/Sat Patient is RIGHT handed PPM/ICD: No Raynaud's of hands/feet: No Retired, works in [employer] for [employer] in [facility] Current Outpatient Medications Medication Sig Dispense Refill [...] by mouth daily. 90 Tablet 3 Pen Rico 32G X 4 MM Use as directed. [...] morning. 90 Tablet 3 FreeStyle Carlos 2 [place] Device Use as directed. Use to test [...] Diagnosis HTN, goal below 130/80 HIV positive ([facility]) Overweight (BMI 25.0-29.9) Dyslipidemia Coronary artery disease involving quinault coronary artery of quinault heart without angina pectoris Type 2 diabetes mellitus with hemoglobin A1c goal of less than 8.0% ([facility]) Old LA (myocardial infarction) Chronic systolic (congestive) heart failure ([facility]) Left bundle branch block Recurrent major depressive disorder, in full remission (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) History of GI bleed Duodenal ulcer Past Medical History: Diagnosis Date Chronic heart failure with preserved ejection fraction (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) Hypertension Kidney disease, chronic, stage IV (GFR 15-29 ml/min) ([facility]) 05/02/2022 Left bundle branch block 05/02/2022 Old LA (myocardial infarction) 05/02/2022 Overweight (BMI 25.0-29.9) 05/02/2022 Recurrent major depressive disorder, in full remission ([facility]) 05/05/2022 Systolic and diastolic CHF, chronic ([facility]) 05/02/2022 Type 2 diabetes mellitus with hemoglobin A1c goal of less than 8.0% ([facility]) 05/02/2022 Past Surgical History: Procedure [...] pain, shortness of breath, palpitations, angina or LA Neurological: Negative for stroke, TIA, amaurosis fugax [...] with results as above. 01/28/21 Carotid Duplex ([facility], report only): <50% B/L ICA stenosis 09/17/19 CT Abd/Pelvis ([facility], report only): No mention of AAA [...] of AVF Former smoker DM HFnEF CAD/prior LA/RCA stenting HTN HLD PUD HIV PLAN: Patient was counseled on concept of AVF, maturation times of AVF, failure rates of AVF to fully mature, oysterman failure rates of AVF, physiologic reality of [...] PA-C Section of Vascular [place] [address] [phone] I have reviewed the advanced practitioner's documentation [...] access surgery to ensure continued functionality. The [facility] Hemodialysis Access Booklet was given to the patient. Benjamin Cartagena MD Section of Vascular and Endovascular Surgery [place], [place] [id number] [phone] documented in this encounter Nursing Notes * Any Allen CMA - 05/03/2024 10:38 AM EDT Reviewed the option of transferring scripts to [facility] pharmacy with patient and / or family. Patient stated no change in medications. Any Allen CMA documented in this encounter Plan of Treatment Upcoming Encounters Date Type Department Care Team (Late st Contact Info) Description 05/08/2024 9:00 AM EDT Office Visit Transplant Clinic, [place] [address] [place] [address] Lydia Cavazos MD [facility] [address] [place] Zenon Tierney MD [address] [place] [address] Nurse Isabel Renal Transplant [place] [address] Noni Peters [place] [address] 05/08/2024 1:00 PM EDT Appointment Vascular Lab [facility], [address] [address] 05/08/2024 1:30 PM EDT Laboratory Outpatient Laboratory, [address] [address] [place], [facility] [address] [address] 05/08/2024 2:30 PM EDT Appointment Radiology, [address] [phone] 05/17/2024 7:15 AM EDT Cardiac Studies Cardiac Studies, [facility] 132 [facility] [place] [address] 05/19/2024 9:30 AM EDT Office Visit Urology Hari Roth [address] [place] [address] Marie Tran PA-C [address] [place] [address] 05/19/2024 6:10 PM EDT Pharmacy Pharmacy, [facility] 132 [facility] [place] [address] [facility] 132 [facility] [place] [address] 05/23/2024 10:20 AM EDT Office Visit Nephrology, [facility] [address] [place] [address] Tesfaye Morris MD [address] [place] [address] 06/12/2024 9:30 AM EDT Office Visit Gastroenterology, [facility] 132 [facility] [place] [address] Erna Srivastava CRNP 132 [facility] [place] [address] 07/19/2024 12:50 PM EST Office Visit Vascular Surgery, [facility] [address] [place] [address] Benjamin Cartagena MD [address] [place] [address] 09/19/2024 3:30 PM EST Office Visit Cardiology, [facility] 132 [place] [address] Davy Mota MD [address] [place] [address] 10/13/2024 9:00 AM EST Office Visit Family Practice [facility] [address] [place] [address] Antonio Colon MD [address] [place] [address] Scheduled Procedures Name Priority Associated Diagnoses Date/Ti me COLONOSCOPY FLEXIBLE PROXIMA L DIAGNOSTIC Recall History of colonic polyps Scheduled Referrals Name Type Priority Associated Diagnoses Orde r Schedule VASCULAR SURGERY REFERRAL OP Referral Within 3 days (urgent) ESRD on dialysis (HCC) Ordered: 04/05/2024 Health Maintenance Due Date Last Done Comments [...] 01/18/2024, 11/24/2022 TSH 02/01/2025 02/02/2024, 01/12, 01/18/2024 DTaP,Tdap,and Td Vaccines (2 - Td or Tdap) 07/23/2027 07/23/2017 AAA Screening Completed 01/21/2022, 01/11, 10/06/2019, Additional history exists Nephrology Referral Discontinued 08/12/2022 Albumin/Creatinine Ratio Discontinued 05/07/2023, 050 11/2021 RETIRED - COLONOSCOPY-ANNUAL AGES 18-100 Discontinued 01/07/2024, 02/19/2023, 02/19/2023 HPV (Gardasil) Vaccine Aged Out No lo [...] Healthcare Agent Relationshi p Communication Lorin Silvestre [facility] Health Care Repr esentative (appointed verbally by patient or by statute hierarchy) Care Teams Airplane Mechanic Relationship Specialty Start Date End Date Antonio Colon MD [address] [place] [address] PCP - General Family Medicine 02/12/22 documented as of this encounter"
--- OUTSIDE RECORDS SUMMARY | 2024-09-21 08:09 | External Medical Summary | Summary of Care ---
Author Name Unknown Organization [facility] Address [address] [facility] [place] [address] Phone [phone] Care Team Providers Care Wood Calker Name Role Phone Antonio Colon MD Primary Care Provider [phone] Reason for Visit * Reason Onset Date Comments Information 05/03/2024 Encounter Details Date Type Department Care Team (Late st Contact Info) Description 05/03/2024 Telephone Cardiology, [facility] 132 [facility] [place] [address] Елена Alford PA-C [address] [facility] [place] [address] Information Allergies No known active allergiesdocumented as [...] kidney disease) stage 4, GFR 15-29 ml/min ([facility]) TAKE 1 CAPSULE (0.5 MCG) BY MOUTH IN THE MORNING. 90 Capsule 5 09/15/2023 Active Metoprolol Succinate ER 25 MG Oral Tablet Extended Release 24 Hour (toPROL XL)Indications:Bayron nary artery disease involving [place] coronary artery of [place] heart without angina pectoris TAKE 1 TABLET BY MOUTH EVERY DAY IN THE MORNING 90 Tablet 3 10/05/2023 Active Prasugrel HCl 10 MG Oral Tablet (Effient)Indication s:Coronary artery disease involving nuiqs[place] coronary artery of nuiqs[place] heart without angina pectoris TAKE 1 TABLET BY MOUTH EVERY DAY IN THE MORNING 90 Tablet 3 10/05/2023 Active Atorvastatin Calcium 40 MG Oral Tablet (Lipitor)Indication s:Dyslipidemia, goal LDL below 70 TAKE 1 TABLET BY MOUTH EVERY DAY IN THE MORNING 90 Tablet 3 10/06/2023 Active Juluca 50-25 MG Oral Tablet Take 1 Tablet by mouth daily. 90 Tablet 3 12/01/2023 Active Pen [place] 32G X 4 MM Use as directed. [...] Tablet 3 03/24/2024 Active FreeStyle Carlos 2 [place] DeviceIndications:T ype 2 diabetes mellitus with hemoglobin [...] 0.083% inhalation solution 2.5 mgIndications:ESRD on dialysis ([facility]),Pre-transplant evaluation for ESRD (end stage renal disease) 2.5 mg NEBULIZER PRN 03/24/2024 Acti ve Albuterol Sulfate (Proventil) (5 MG/ML) 0.5% *conc* inhalation solution 2.5 mgIndications:ESRD on dialysis ([facility]),Pre-transplant evaluation for ESRD (end stage [...] Dyslipidemia 05/02/2022 Coronary artery disease invo lving nuiqsut coronary artery of nuiqsut heart without angina pectoris 05/02/2022 Type 2 [...] 30 Mcg, IM, 12 yrs and above (inSparq) 09/09/2022 Hepatitis B, 20+ yrs 08/25/2017 Meningococcal [...] Telephone Encounter - Angelica Linn LPN - 05/03/2024 1:54 PM EDT letter * Telephone Encounter - Angelica Linn LPN - 05/03/2024 1:52 PM EDT ----- Message from Елена Alford sent at 05/03/2024 1:46 PM EDT ----- Nuclear stress test with myocardial scar, no ischemia. No further testing indicated at this time. documented in this encounter Plan of Treatment Upcoming Encounters Date Type Department Care Team (Late st Contact Info) Description 05/08/2024 9:00 AM EDT Office Visit Transplant Clinic, [address] [address] Lydia Cavazos MD [facility] [place], [place] Zenon Tierney MD [facility] [place] Nurse Isabel Renal Transplant [address] [place] [address] Noni Peters LSW [facility] [place], [place] 05/08/2024 1:00 PM EDT Appointment Vascular Lab [facility], [address] [id number] 05/08/2024 1:30 PM EDT Laboratory Outpatient Laboratory, [address] [phone] Darron Fisher B1a [address] [place] [address] 05/08/2024 2:30 PM EDT Appointment Radiology, [place] [address] [place] [phone] 05/17/2024 7:15 AM EDT Cardiac Studies Cardiac Studies, [facility] 132 [facility] [place] [address] 05/19/2024 9:30 AM EDT Office Visit Urology Hari Roth [address] [place] [address] Marie Tran PA-C [address] [place] [address] 05/19/2024 6:10 PM EDT Pharmacy Pharmacy, [facility] 132 [facility] [place] [address] [facility] 132 [facility] [place] [address] 05/23/2024 10:20 AM EDT Office Visit Nephrology, [facility] [address] [facility] [place] [address] Tesfaye Morris MD [address] [facility] [place] [address] 06/12/2024 9:30 AM EDT Office Visit Gastroenterology, [facility] 132 [facility] [place] [address] Erna Srivastava CRNP 132 [facility] [place] [address] 06/26/2024 Hospital Encounter [facility], OPERATING ROOM [facility] [place] [address] [facility] [place] [address] Benjamin Cartagena MD [address] [facility] [place] [address] 07/19/2024 12:50 PM EST Office Visit Vascular Surgery, [facility] 132 [facility] [place] [address] Benjamin Cartagena MD [address] [place] [address] 09/19/2024 3:30 PM EST Office Visit Cardiology, [facility] [address] [facility] [place] [address] Davy Mota MD [address] [place] [address] 10/13/2024 9:00 AM EST Office Visit Family Practice [facility] 132 [facility] [place] [address] Antonio Colon MD [address] [place] [address] Scheduled Procedures Name Priority Associated Diagnoses Date/Ti me 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
--- OUTSIDE RECORDS SUMMARY | 2024-09-21 08:09 | External Medical Summary | Summary of Care ---
Author Name Unknown Organization [facility] Address [address] [place] [address] Phone [phone] Care Team Providers Care Housekeeping Room Attendant Name Role Phone Antonio Colon MD Primary Care Provider [phone] Encounter Details Date Type Department Care Team (Latest Contact Info) Description 05/08/2024 12:34 PM EDT - 05/08/2024 1:51 PM EDT Hospital Encounter Vascular Lab [address] [address] Arrived Discharge Disposition: Home - Self Care [...] Additional Information Patient taking differently: 10 UnitsSubcutaneous [id number], Reported on 05/08/2024 Metoprolol Succinate ER 25 MG Oral Tablet Extended Release 24 Hour (toPROL XL)Indications:Co ronary artery disease involving tribal coronary artery of tribal heart without angina pectoris TAKE 1 TABLET BY MOUTH EVERY DAY IN THE MORNING 90 Tablet 3 10/05/2023 Active Prasugrel HCl 10 MG Oral Tablet (Effient)Indicati ons:Coronary artery disease involving tribal coronary artery of tribal heart without angina pectoris TAKE 1 TABLET BY MOUTH EVERY DAY IN THE MORNING 90 Tablet 3 10/05/2023 Active Atorvastatin Calcium 40 MG Oral Tablet (Lipitor)Indicati ons:Dyslipidemia, goal LDL below 70 TAKE 1 TABLET BY MOUTH EVERY DAY IN THE MORNING 90 Tablet 3 10/06/2023 Active Juluca 50-25 MG Oral Tablet Take 1 Tablet by mouth daily. 90 Tablet 3 12/01/2023 Active Pen [place] 32G X 4 MM Use as directed. [...] Tablet 3 03/24/2024 Active FreeStyle Carlos 2 [place] DeviceIndications :Type 2 diabetes mellitus with hemoglobin [...] goal of less than 8.0% ([facility]) Inject 10 Units under the skin in the morning and 10 Units at noon and 10 Units before bedtime. With meals. 15 mL 3 04/26/2024 Active Hospital, Clinic, or Other Facility Administered Medication Ordered Dose Route Frequency Start Date End Date Status Albuterol Sulfate (Proventil) (2.5 MG/3ML) 0.083% inhalation solution 2.5 mgIndications:ESRD on dialysis ([facility]),Pre-transplant evaluation for ESRD (end stage renal disease) 2.5 mg NEBULIZER PRN 03/24/2024 Acti ve Albuterol Sulfate (Proventil) (5 MG/ML) 0.5% *conc* inhalation solution 2.5 mgIndications:ESRD on dialysis ([facility]),Pre-transplant evaluation for ESRD (end stage renal disease) [...] Dyslipidemia 05/02/2022 Coronary artery disease invo lving tribal coronary artery of tribal heart without angina pectoris 05/02/2022 Type 2 diabetes mellitus wit h hemoglobin A1c goal of less than 8.0% 05/02/2022 Old [place] (myocardial infarction) 05/02/2022 Chronic systolic (congestive) heart [...] 30 Mcg, IM, 12 yrs and above ([employer]) 09/09/2022 Hepatitis B, 20+ yrs 08/25/2017 [...] 7:15 AM EDT Cardiac Studies Cardiac Studies, [facility] [address] [place] [address] 05/19/2024 9:30 AM EDT Office Visit Urology Hari Roth [address] [place] [address] Marie Tran PA-C [address] [place] [address] 05/19/2024 6:10 PM EDT Pharmacy Pharmacy, [facility] [place] [address] [facility] [address] [place] [address] 05/23/2024 10:20 AM EDT Office Visit Nephrology, [facility] [address] [facility] [place] [address] Tesfaye Morris MD [address] [place] [address] 06/12/2024 9:30 AM EDT Office Visit Gastroenterology, [facility] [address] [place] [facility] [place] [address] Erna Srivastava CRNP 132 [place] [address] 06/26/2024 7:15 AM EDT Hospital Encounter [place] [facility], OPERATING ROOM [facility] [address] [facility] [place] [address] Benjamin Cartagena MD [address] [place], [place] [id number] 06/26/2024 7:15 AM EDT - 06/26/2024 9:25 AM EDT Surgery OR [facility], OPERATING ROOM [facility] [address] [facility] [place] [address] Benjamin Cartagena MD [address] [place] [address] 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 07/19/2024 12:50 PM EST Office Visit Vascular Surgery, [facility] 132 [place] [address] Benjamin Cartagena MD [address] [place] [address] 09/19/2024 3:30 PM EST Office Visit Cardiology, [facility] 132 [place] [address] Davy Mota MD 132 [facility] [place] [address] 10/13/2024 9:00 AM EST Office Visit Family Practice [facility] 132 [place] [address] Antonio Colon MD [address] [place] [address] Scheduled Procedures Name Priority Associated Diagnoses Date/Ti [...] Additional history exists Albumin/Creatinine Ratio Discontinued 05/07/2023, 0 11/2021 RETIRED - COLONOSCOPY-ANNUAL AGES 18-100 Discontinued 01/07/2024, 02/19/2023, 02/19/2023 Nephrology Referral Discontinued 05/08/2024 HPV (Gardasil) Vaccine Aged Out No lo nger eligible based on patient's age to complete this topic documented as of this encounter Medical Devices Not on filedocumented as of this encounter Procedures Procedure Name Priority Date/Time Associated Diagnosis Comments VASC ANKLE BRACHIAL INDICES WITHOUT PPG (PAD) Routine 05/08/2024 1:11 PM EDT Type 2 diabetes mellitus with hemoglobin A1c goal of less than 8.0% (HCC) ESRD on dialysis (HCC) Pre-transplant evaluation for ESRD (end stage renal disease) documented in this encounter Results * VASC ANKLE BRACHIAL INDICES WITHOUT PPG (PAD) (05/08/2024 1:11 PM EDT) Anatomical Region Laterality Modality Extremity, Ankle, Vascular, Lower Extremity, Etienne t Ultrasound Impressions 05/08/2024 1:28 PM EDT : STEPHANIE at rest is 1.22 on the right and 1.22 on the left. For the right lower extremity: Lower extremity Doppler Evaluation is normal at rest with no evidence of significant arterial occlusive disease. For the left lower extremity: Lower extremity Doppler Evaluation is normal at rest with no evidence of significant arterial occlusive disease. Narrative 05/08/2024 1:28 PM EDT VASCULAR LAB RESULTS DATE OF EXAMINATION: 05/08/24 INDICATION: pre transplant ANKLE BRACHIAL INDEX OF THE LOWER EXTREMITIES Immediately before proceeding with the vascular lab procedure reported below, the identity of the patient, the correct exam and the correct procedural site were identified. Continuous wave doppler and appropriate size pressure cuffs were utilized during the examination. Findings: The right and left brachial artery blood pressures are 153 mmHg and 150 mmHg respectively. On the right, the posterior tibial artery waveform is triphasic and has an amplitude which is excellent. . The right dorsalis pedis artery waveform is triphasic and has an amplitude which is excellent. The right peroneal artery waveform is triphasic and has an amplitude which is excellent. The tibial pressures range from 165 mmHg to 187 mmHg. On the left, the posterior tibial artery waveform is triphasic and has an amplitude which is excellent. . The left dorsalis pedis artery waveform is triphasic and has an amplitude which is excellent. . The left peroneal artery waveform is triphasic and has an amplitude which is good. The tibial pressures range from 163 mmHg to 187 mmHg. Librado Stubbs MD RAD VASCULAR documented in this encounter Visit Diagnoses Diagnosis ESRD on dialysis (HCC)- Primary End stage renal disease ESRD on dialysis (HCC) End stage renal disease Type 2 diabetes mellitus with hemoglobin A1c goal of less than 8.0% (HCC) ESRD on dialysis (HCC) End stage renal [...] Healthcare Agent Relationshi p Communication Lorin Silvestre [facility] Repr esentative (appointed verbally by patient or by statute hierarchy) Care Teams Housekeeping Room Attendant Relationship Specialty Start Date End Date Antonio Colon MD [address] [place] [address] PCP - General Family Medicine 02/12/22 documented as of this encounter
--- OUTSIDE RECORDS SUMMARY | 2024-09-21 08:09 | External Medical Summary | Summary of Care ---
Author Name Unknown Organization [facility] Address [address] [place] [address] Phone [phone] Care Team Providers Care Full Time Babysitter Name Role Phone Antonio Colon MD Primary Care Provider [phone] Reason for Visit * Reason Comments NEW PATIENT * Evaluate & Treat - Unlimited Visits (Within 3 days (urgent)) - Authorized Specialty Diagnoses / Procedures Referred By Contact Referred To Contact Vascular Surgery / Cardiovascular Surgery Diagnoses ESRD on dialysis (HCC) Tesfaye Morris MD [address] [place] [address] [facility] 132 [place] [address] Referral ID Status Reason Start Date Expiration Date Visits Requested Visits Authorized [id number] Authorized Specialty Services Required 04/05/2024 [id number] Encounter Details Date Type Department Care Team (Late st Contact Info) Description 05/03/2024 10:30 AM EDT Office Visit Vascular Surgery, [facility] [address] [place] [address] Benjamin Cartagena MD [address] [place] [address] ESRD on dialysis (HCC)* Allergies [...] kidney disease) stage 4, GFR 15-29 ml/min ([facility]) TAKE 1 CAPSULE (0.5 MCG) BY MOUTH IN THE MORNING. 90 Capsule 5 09/15/2023 Active Metoprolol Succinate ER 25 MG Oral Tablet Extended Release 24 Hour (toPROL XL)Indications:Bayron nary artery disease involving tu[place]umne coronary artery of tu[place]umne heart without angina pectoris TAKE 1 TABLET BY MOUTH EVERY DAY IN THE MORNING 90 Tablet 3 10/05/2023 Active Prasugrel HCl 10 MG Oral Tablet (Effient)Indication s:Coronary artery disease involving [place]ne coronary artery of tuolumne heart without angina pectoris TAKE 1 TABLET BY MOUTH EVERY DAY IN THE MORNING 90 Tablet 3 10/05/2023 Active Atorvastatin Calcium 40 MG Oral Tablet (Lipitor)Indication s:Dyslipidemia, goal LDL below 70 TAKE 1 TABLET BY MOUTH EVERY DAY IN THE MORNING 90 Tablet 3 10/06/2023 Active Juluca 50-25 MG Oral Tablet Take 1 Tablet by mouth daily. 90 Tablet 3 12/01/2023 Active Pen [place] 32G X 4 MM Use as directed. [...] Tablet 3 03/24/2024 Active FreeStyle Carlos 2 [place] DeviceIndications:T ype 2 diabetes mellitus with hemoglobin [...] Dyslipidemia 05/02/2022 Coronary artery disease invo lving tu[place]umne coronary artery of tu[place]umne heart without angina pectoris 05/02/2022 Type 2 diabetes mellitus wit h hemoglobin A1c goal of less than 8.0% 05/02/2022 Old [place] (myocardial infarction) 05/02/2022 Chronic systolic (congestive) heart [...] 30 Mcg, IM, 12 yrs and above ([employer]) 09/09/2022 Hepatitis B, 20+ yrs 08/25/2017 Meningococcal [...] documented in this encounter Progress Notes * Maryann Lake PA-C - 05/03/2024 10:10 AM EDT Images from the original note were not included. Date of Service: 05/03/2024 11:10 AM Tad Silvestre is a 69 year old male. Patient being seen in consultation at the request of Antonio Colon MD Chief Complaint: New pt, needs AVF creation for HD HPI: Former smoker with DM, HFnEF, CAD/prior NV/5 stents, HTN, HLD, PUD, HIV and ESRD on HD On kidney transplant list Has right TDC in place Receives HD [facility] in [place], T/H/Sat Patient is RIGHT handed PPM/ICD: No Raynaud's of hands/feet: No Retired, works in [employer] for [employer] in [facility] [employer] [employer] Current Outpatient Medications Medication Sig Dispense Refill [...] by mouth daily. 90 Tablet 3 Pen [place] 32G X 4 MM Use as directed. [...] morning. 90 Tablet 3 FreeStyle Carlos 2 [place] Device Use as directed. 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 ESRD on dialysis ([facility]) History of GI bleed Duodenal ulcer Past Medical History: Diagnosis Date Chronic heart failure with preserved ejection fraction ([facility]) 11/24/2022 Coronary artery disease involving tuolumne coronary artery of tuolumne heart without angina pectoris 05/02/2022 Duodenal ulcer 02/02/2024 Dyslipidemia 05/02/2022 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 05/07/2023 History of GI bleed 02/02/2024 Duodenal ulcer HIV positive ([facility]) Hypertension Kidney disease, chronic, stage IV (GFR 15-29 ml/min) ([facility]) 05/02/2022 Left bundle branch block 05/02/2022 Old NV (myocardial infarction) 05/02/2022 Overweight (BMI 25.0-29.9) 05/02/2022 Recurrent major depressive disorder, in full remission ([facility]) 05/05/2022 Systolic and diastolic CHF, chronic ([facility]) 05/02/2022 Type 2 diabetes mellitus with hemoglobin A1c goal of less than 8.0% ([facility]) 05/02/2022 Past Surgical History: Procedure [...] Stability Do you currently live in a skilled nursing or have no steady place to sleep [...] pain, shortness of breath, palpitations, angina or NV Neurological: Negative for stroke, TIA, amaurosis fugax [...] with results as above. 01/28/21 Carotid Duplex ([facility], report only): <50% B/L ICA stenosis 09/17/19 CT Abd/Pelvis ([facility], report only): No mention of [...] of AVF Former smoker DM HFnEF CAD/prior NV/RCA stenting HTN HLD PUD HIV PLAN: Patient was counseled on concept of AVF, maturation times of AVF, failure rates of AVF to fully mature, termite control representative failure rates of AVF, physiologic reality of arterial steal due to AVF, and both concept & need of fistulograms. Signed up for creation of LEFT arm AVF Consent signed Pt given 2 education booklets Hold AM insulin on day of surgery RTC 1 month post op for incision/AVF check The patient was seen and examined with Benjamin Cartagena MD. Maryann Lake PA-C Section of Vascular [place] [address] [phone] I have reviewed the advanced practitioner's documentation [...] and management of symptoms as outlined above. The plan is to proceed initially with angiography and [...] to have a poor result from angioplasty aloneand those lesions that demonstrate a poor result [...] access surgery to ensure continued functionality. The [facility] Hemodialysis Access Booklet was given to the patient. Benjamin Cartagena MD Section of Vascular and Endovascular Surgery [place], [place] [id number] [phone] documented in this encounter Nursing Notes * Any Allen CMA - 05/03/2024 10:38 AM EDT Reviewed the option of transferring scripts to [facility] pharmacy with patient and / or family. Patient stated no change in medications. Any Allen CMA documented in this encounter Miscellaneous Notes * Addendum Note - Maryann Lake PA-C - 05/03/2024 1:52 PM EDTAddended by: MARYANN LAKE on: 05/03/2024 01:52 PM Modules accepted: Orders documented in this encounter Plan of Treatment Upcoming Encounters Date Type Department Care Team (Late st Contact Info) Description 05/08/2024 9:00 AM EDT [facility] [address] [place] [address] Lydia Cavazos MD [address] [place] [address] Zenon Tierney MD [address] [place] [address] [place], Nurse Renal Transplant [address] [place] [address] Noni Peters LSW [address] [place] [address] 05/08/2024 1:00 PM EDT Appointment Vascular Lab [facility] [place] [address] [place] [address] 05/08/2024 1:30 PM EDT Laboratory Outpatient Laboratory, [address] [phone] [facility] [address] [place] [address] 05/08/2024 2:30 PM EDT Appointment Radiology, [address] [phone] 05/17/2024 7:15 AM EDT Cardiac Studies [facility] 132 [facility] [place] [address] 05/19/2024 9:30 AM EDT Office Visit Urology Hari Roth [address] [place] [address] Marie Tran PA-C [address] [place] [address] 05/19/2024 6:10 PM EDT Pharmacy Pharmacy, [facility] 132 [facility] [place] [address] [facility] [place] [address] 05/23/2024 10:20 AM EDT Office Visit NephrologyMadeline [address] [place] [address] Tesfaye Morris MD [address] [place] [address] 06/12/2024 9:30 AM EDT Office Visit Gastroenterology, [facility] [address] [place] [address] Erna Srivastava CRNP 132 [facility] [place] [address] 06/26/2024 Hospital Encounter OR [facility], OPERATING ROOM [facility], [facility] [place] [address] [place] [phone] Benjamin Cartagena MD [address] [place], [place] [phone] 07/19/2024 12:50 PM EST Office Visit Vascular Surgery, [facility] [address] [facility] [place] [address] Benjamin Cartagena MD [address] [place], [place] [phone] 09/19/2024 3:30 PM EST Office Visit Cardiology, [facility] [address] [place] [address] Davy Mota MD 132 [place] [address] 10/13/2024 9:00 AM EST Office Visit Family Practice [facility] [address] [facility] [place] [address] Antonio Colon MD 132 [place] [address] Scheduled Procedures Name Priority Associated Diagnoses Date/Ti [...] End stage renal disease ESRD on dialysis (HCC)- Primary End stage [...] patient or by statute hierarchy) Care Teams Full Time Babysitter Relationship Specialty Start Date End Date Antonio Colon MD [address] [place] [address] PCP - General Family Medicine 02/12/22 documented as of this encounter"
--- OUTSIDE RECORDS SUMMARY | 2024-09-21 08:09 | External Medical Summary | Summary of Care ---
Author Name Unknown Organization [facility] Address [address] [place] [address] Phone [phone] Care Team Providers Care Digital Print Operator Name Role Phone Antonio Colon MD Primary Care Provider [phone] Reason for Visit * Reason Onset Date Comments Test Results 05/11/2024 Unexpected or In determinate Result Encounter Details Date Type Department Care Team (Late st Contact Info) Description [facility]/11[facility] [address] [place] [address] Librado Stubbs MD [address] [place] [address] Test Results (Unexpected or Indeterminate [...] Additional Information Patient taking differently: 10 UnitsSubcutaneous [id number], Reported on 05/08/2024 Metoprolol Succinate ER 25 MG Oral Tablet Extended Release 24 Hour (toPROL XL)Indications:Co ronary artery disease involving [place] coronary artery of [place] heart without angina pectoris TAKE 1 TABLET BY MOUTH EVERY DAY IN THE MORNING 90 Tablet 3 10/05/2023 Active Prasugrel HCl 10 MG Oral Tablet (Effient)Indicati ons:Coronary artery disease involving [place] coronary artery of [place] heart without angina pectoris TAKE 1 TABLET BY MOUTH EVERY DAY IN THE MORNING 90 Tablet 3 10/05/2023 Active Atorvastatin Calcium 40 MG Oral Tablet (Lipitor)Indicati ons:Dyslipidemia, goal LDL below 70 TAKE 1 TABLET BY MOUTH EVERY DAY IN THE MORNING 90 Tablet 3 10/06/2023 Active Juluca 50-25 MG Oral Tablet Take 1 Tablet by mouth daily. 90 Tablet 3 12/01/2023 Active Pen [place] 32G X 4 MM Use as directed. [...] Tablet 3 03/24/2024 Active FreeStyle Carlos 2 [place] DeviceIndications :Type 2 diabetes mellitus with hemoglobin A1c goal of less than 8.0% ([facility]) Use as directed. Use to test BG E10.65 1 Each 04/11/2024 Active FreeStyle Carlos 2 SensorIndications :Type 2 diabetes mellitus with hemoglobin A1c goal of less than 8.0% ([facility]) Use as directed. Use one sensor every 14 days for blood sugar E10.65 1 Each 11 04/11/2024 Active Fiasp FlexTouch 100 UNIT/ML Subcutaneous Solution Pen-injector (Insulin Aspart (w/Niacinamide))I ndications:Type 2 diabetes mellitus with hemoglobin A1c goal of less than 8.0% ([facility]) Inject 10 Units under the skin in the morning and 10 Units at noon and 10 Units before bedtime. With meals. 15 mL 3 04/26/2024 Active Hospital, Clinic, or Other Facility Administered Medication Ordered Dose Route Frequency Start Date End Date Status Albuterol Sulfate (Proventil) (2.5 MG/3ML) 0.083% inhalation solution 2.5 mgIndications:ESRD on dialysis ([facility]),Pre-transplant evaluation for ESRD (end stage renal disease) 2.5 mg NEBULIZER PRN 03/24/2024 Acti ve Albuterol Sulfate (Proventil) (5 MG/ML) 0.5% *conc* inhalation solution 2.5 mgIndications:ESRD on dialysis ([facility]),Pre-transplant evaluation for ESRD (end stage renal [...] Dyslipidemia 05/02/2022 Coronary artery disease invo lving [place] coronary artery of [place] heart without angina pectoris 05/02/2022 Type 2 [...] 30 Mcg, IM, 12 yrs and above ([employer]) 09/09/2022 Hepatitis B, 20+ yrs 08/25/2017 Meningococcal [...] unexpected or indeterminate finding on Tad Silvestre ([id number]) and asks that you review the following [...] reviewed. Thank you, MORGAN Osorio Client Service [facility] documented in this encounter Plan of Treatment Upcoming Encounters Date Type Department Care Team (Latest Contact Info) Description 05/17/2024 7:15 AM EDT Cardiac Studies Cardiac Studies, [facility], [place] [address] [place] [address] 05/19/2024 9:30 AM EDT Office Visit Urology Hari Roth [address] [place] [address] Marie Tran PA-C [address] [place] [address] 05/19/2024 6:10 PM EDT [facility] [place] [address] [place] [address] [facility] [address] [place] [place] [address] 05/23/2024 10:20 AM EDT Office Visit NephrologyMadeline [address] [place] [address] Tesfaye Morris MD 200 [place] [address] 06/12/2024 9:30 AM EDT Office Visit Gastroenterology, [facility] [address] [place] [address] Erna Srivastava CRNP [address] [place] [address] 06/26/2024 7:15 AM EDT Hospital Encounter OR [facility], OPERATING ROOM [facility] [address] [facility] [place] [address] Benjamin Cartagena MD [address] [facility] [place] [address] 06/26/2024 7:15 AM EDT - 06/26/2024 9:25 AM EDT Surgery OR [facility], OPERATING ROOM [facility] [address] [facility] [place] [phone] Benjamin Cartagena MD [address] [facility] [place] [address] 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 07/19/2024 12:50 PM EST Office Visit Vascular Surgery, [facility] [address] [place] [address] Benjamin Cartagena MD [address] [facility] [place] [address] 09/19/2024 3:30 PM EST Office Visit Cardiology, [facility] [address] [place] [address] Davy Mota MD [address] [place] [address] 10/13/2024 9:00 AM EST Office Visit Family Practice [facility] [address] [place] [address] Antonio Colon MD [address] [place], [place] [phone] Scheduled Procedures Name Priority Associated Diagnoses Date/Ti [...] Healthcare Agent Relationshi p Communication Lorin Silvestre [facility] Care Repr esentative (appointed verbally by patient or by statute hierarchy) Care Teams Digital Print Operator Relationship Specialty Start Date End Date Antonio Colon MD [address] [place] [address] PCP - General Family Medicine 02/12/22 documented as of this encounter
--- OUTSIDE RECORDS SUMMARY | 2024-09-21 08:09 | External Medical Summary | Summary of Care ---
Author Name Unknown Organization [facility] Address [address] [place] [address] Phone [phone] Care Team Providers Care General Farmworker Name Role Phone Antonio Colon MD Primary Care Provider [phone] Encounter Details Date Type Department Care Team (Late st Contact Info) Description 05/01/2024 Orders Only Unspecified Department Елена Alford PA-C [address] [facility] [place] [address] Allergies No known active allergiesdocumented as of this encounter (statuses as of 05/02/2024) Medications Medication Sig Dispensed Refills Start Date [...] disease) stage 4, GFR 15-29 ml/min ([facility]) TAKE 1 CAPSULE (0.5 MCG) BY MOUTH IN THE MORNING. 90 Capsule 5 09/15/2023 Active Metoprolol Succinate ER 25 MG Oral Tablet Extended Release 24 Hour (toPROL XL)Indications:Bayron nary artery disease involving chilkoot coronary artery of chilkoot heart without angina pectoris TAKE 1 TABLET BY MOUTH EVERY DAY IN THE MORNING 90 Tablet 3 10/05/2023 Active Prasugrel HCl 10 MG Oral Tablet (Effient)Indication s:Coronary artery disease involving chilkoot coronary artery of chilkoot heart without angina pectoris TAKE 1 TABLET BY MOUTH EVERY DAY IN THE MORNING 90 Tablet 3 10/05/2023 Active Atorvastatin Calcium 40 MG Oral Tablet (Lipitor)Indication s:Dyslipidemia, goal LDL below 70 TAKE 1 TABLET BY MOUTH EVERY DAY IN THE MORNING 90 Tablet 3 10/06/2023 Active Juluca 50-25 MG Oral Tablet Take 1 Tablet by mouth daily. 90 Tablet 3 12/01/2023 Active Pen Shannon 32G X 4 MM Use as directed. [...] the morning. 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 05/07/2023 Recurrent major depressive disorder, in full rem ission 05/05/2022 Overweight (BMI 25.0-29.9) 05/02/2022 Dyslipidemia 05/02/2022 Coronary artery disease invo lving chilkoot coronary artery of chilkoot heart without angina pectoris 05/02/2022 Type 2 diabetes mellitus wit h hemoglobin A1c goal of less than 8.0% 05/02/2022 Old PA (myocardial infarction) 05/02/2022 Chronic systolic (congestive) heart failure 08/2 Left bundle branch block 05/02/2022 HTN, goal below 130/80 HIV positive documented as of this encounter (statuses as of 05/02/2024) Resolved Problems Problem Noted Date Diagnosed Date Resolved Date Chronic heart failure with p reserved ejection fraction 11/24/2022 02/04/2023 Kidney disease, chronic, sta ge IV (GFR 15-29 ml/min) 05/02/2022 02/02/2024 ARDS (adult respiratory distress syndrome) 06/17/2012 05/02/2022 Acute pancreatitis 06/14/2012 2 Acute respiratory distress 06/14/2012 0 05/02/2022 documented as of this encounter (statuses as of 05/02/2024) Immunizations Name Administration Dates Next Due COVID-19 mRNA, LNP-s, No Pre serve, 2-Dose Series (Moderna) 11/27/2020,10/24/2020 COVID-19, MRNA-LNP, 23-24, P F, 50 MCG/0.5 mL, 12 YRS AND ABOVE, IM (MODERNA-Spikevax) 08/05/2021 Covid-19, Mrna, Lnp-s, Pf, B ivalent, 30 Mcg, IM, 12 yrs and above ([employer]) 09/09/2022 Hepatitis B, 20+ yrs 08/25/2017 Meningococcal [...] 10:30 AM EDT Office Visit Vascular Surgery, [facility] [address] [facility] [place] [address] Benjamin Cartagena MD [address], [place] [id number] 05/08/2024 9:00 AM EDT Office Visit Transplant Clinic, [place] [address], [place] [phone] Lydia Cavazos MD [address], [place] [id number] Zenon Tierney MD [facility] [place] [address] Nurse Isabel [facility] [address], [place] [phone] Noni Peters LSW [address] [place] [address] 05/08/2024 1:00 PM EDT Appointment Vascular Lab [facility], [address] [address] 05/08/2024 1:30 PM EDT Laboratory Outpatient Laboratory, [place] [address] [place] [id number] [place], Lab [address] [facility] [place] [address] 05/08/2024 2:30 PM EDT Appointment Radiology, [address] [id number] 05/17/2024 7:15 AM EDT Cardiac Studies Cardiac Studies, [facility] [address] [facility] [place] [address] 05/19/2024 9:30 AM EDT Office Visit Urology Hari Roth [address] [place] [address] Marie Tran PA-C [address] [place] [address] 05/19/2024 6:10 PM EDT Pharmacy Pharmacy, [facility] [address] [facility] [place] [address] [facility] [place] [address] 05/23/2024 10:20 AM EDT Office Visit Nephrology, [facility] [address] [facility] [place] [address] Tesfaye Morris MD [address] [facility] [place] [address] 06/12/2024 9:30 AM EDT Office Visit Gastroenterology, [facility] [address] [facility] [place] [address] Erna Srivastava CRNP [address] [place] [address] 09/19/2024 3:30 PM EST Office Visit Cardiology, [facility] [address] [facility] [place] [address] Davy Mota MD [address] [facility] [place] [address] 10/13/2024 9:00 AM EST Office Visit Family Practice [facility] [address] [facility] [place] [address] Antonio Colon MD [address] [place] [address] Scheduled Procedures Name Priority Associated Diagnoses Date/Ti [...] AM EDT) 05/01/2024 8:41 AM EDT Елена LEON [facility] documented in this encounter Advance Directives * Full Code (Latest Code Status on File) Date Activated Date Inactivated Comments 06/14/2012 6:26 PM 06/17/2012 7:43 PM This order r eflects the patients wishes and were consensually agreed upon. Healthcare Agents on File Name Relationship Healthcare Agent Relationshi p Communication Lorin Silvestre [facility] Repr esentative (appointed verbally by patient or by statute hierarchy) Care Teams General Farmworker Relationship Specialty Start Date End Date Antonio Colon MD [address] [place] [address] PCP - General Family Medicine 02/12/22 documented as of this encounter
[2024-09-21 08:10] LABS: Basophils # (auto) 0.03 K/uL (0.00-0.20); Basophils % (auto) 0.3 %; Eosinophils # (auto) 0.07 K/uL (0.00-0.50); Eosinophils % (auto) 0.7 %; Hematocrit (blood only) 39.2 % (42.0-52.0); Hemoglobin 13.3 g/dl (14.0-18.0); Immature Granulocytes # (auto) 0.06 K/uL (0.01-0.20); Immature Granulocytes % (auto) 0.6 %; Lymphocytes # (auto) 1.63 K/uL (1.20-3.40); Lymphocytes % (auto) 16.7 %; Mean Corpuscular Hemoglobin 27.5 pg (25.0-34.0); Mean Corpuscular Hgb Conc 33.9 g/dL (32.0-36.0); Mean Corpuscular Volume 81.2 fL (80.0-100.0); Mean Platelet Volume 8.5 fL (9.4-12.4); Monocytes # (auto) 0.88 K/uL (0.11-0.59); Neutrophils # (auto) 7.08 K/uL (1.40-6.50); Neutrophils % (auto) 72.7 %; Platelet Count 365 K/uL (130-400); RDW Coefficient of Variation 13.7 % (11.5-14.5); RDW Standard Deviation 39.3 fL (36.4-46.3); Red Blood Count 4.83 M/uL (4.70-6.10); White Blood Count 9.75 K/ul (4.8-10.8)
--- OUTSIDE RECORDS SUMMARY | 2024-09-21 08:10 | External Medical Summary | Summary of Care ---
Author Name Unknown Organization [facility] Address [address] [place] [address] Phone [phone] Care Team Providers Care Talend Developer Name Role Phone Antonio Colon MD Primary Care Provider [phone] Reason for Visit * Reason Comments Outpatient Testing Encounter Details Date Type Department Care Team (Late st Contact Info) Description 04/11/2024 10:40 AM EDT Laboratory Laboratory, [facility] [address] [place] [address] [facility] [address] [place] [address] Type 2 diabetes mellitus with hemoglobin A1c goal of less than 8.0% ([facility]); ESRD on dialysis ([facility]); Pre-transplant evaluation for ESRD (end stage renal disease); Abnormal findings on diagnostic imaging of limbs Allergies No known active allergiesdocumented as of this encounter (statuses as of 04/11/2024) Medications Medication Sig Dispensed Refills Start Date [...] Hour (toPROL XL)Indications:Bayron nary artery disease involving [place] coronary artery of [place] heart without angina pectoris TAKE 1 TABLET BY MOUTH EVERY DAY IN THE MORNING 90 Tablet 3 10/05/2023 Active Prasugrel HCl 10 MG Oral Tablet (Effient)Indication s:Coronary artery disease involving [place] coronary artery of [place] heart without angina pectoris TAKE 1 TABLET BY MOUTH EVERY DAY IN THE MORNING 90 Tablet 3 10/05/2023 Active Atorvastatin Calcium 40 MG Oral Tablet (Lipitor)Indication s:Dyslipidemia, goal LDL below 70 TAKE 1 TABLET BY MOUTH EVERY DAY IN THE MORNING 90 Tablet 3 10/06/2023 Active Juluca 50-25 MG Oral Tablet Take 1 Tablet by mouth daily. 90 Tablet 3 12/01/2023 Active Pen [place] 32G X 4 MM Use as directed. Use to inject insulin 4 times daily E11.9 400 Each 3 12/02/2023 Active NovoLOG FlexPen 100 UNIT/ML Subcutaneous Solution Pen-injector (insulin aspart) INJECT 10 UNITS THREE TIMES A DAY WITH MEALS or as directed 15 mL 5 02/21/2024 Active Additional Information Patient not taking.Reported on 02/25/2024 Fiasp FlexTouch 100 UNIT/ML Subcutaneous Solution Pen-injector (Insulin Aspart (w/Niacinamide))Ind ications:Type 2 diabetes mellitus with hemoglobin A1c goal of less than 8.0% ([facility]) Inject 10 Units under the skin in the morning and 10 Units at noon and 10 Units before bedtime. With meals. 15 mL 3 02/23/2024 Active Sevelamer Carbonate 800 MG Oral Tablet [...] Tablet 3 03/24/2024 Active FreeStyle Carlos 2 [place] DeviceIndications:T ype 2 diabetes mellitus with hemoglobin A1c goal of less than 8.0% ([facility]) Use as directed. Use to test BG E10.65 1 Each 04/11/2024 Active FreeStyle Carlos 2 SensorIndications:T ype 2 diabetes mellitus with hemoglobin A1c goal of less than 8.0% ([facility]) Use as directed. Use one sensor every 14 days for blood sugar E10.65 1 Each 11 04/11/2024 Active Hospital, Clinic, or Other Facility Administered Medication Ordered Dose Route Frequency Start Date End Date Status Albuterol Sulfate (Proventil) (2.5 MG/3ML) 0.083% inhalation solution 2.5 mgIndications:ESRD on dialysis ([facility]),Pre-transplant evaluation for ESRD (end stage renal disease) 2.5 mg NEBULIZER PRN 03/24/2024 Acti ve Albuterol Sulfate (Proventil) (5 MG/ML) 0.5% *conc* inhalation solution 2.5 mgIndications:ESRD on dialysis ([facility]),Pre-transplant evaluation for ESRD (end stage renal disease) 2.5 mg NEBULIZER PRN 03/24/2024 Acti ve documented as of this encounter (statuses as of 04/11/2024) Active Problems Problem Noted Date Diagnosed Date ESRD on dialysis 02/02/2024 History of GI bleed 02/02/2024 Overview: Duodenal ulcer Duodenal ulcer 02/02/2024 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 05/07/2023 Recurrent major depressive disorder, in full rem ission 05/05/2022 Overweight (BMI 25.0-29.9) 05/02/2022 Dyslipidemia 05/02/2022 Coronary artery disease invo lving [place] coronary artery of [place] heart without angina pectoris 05/02/2022 Type 2 diabetes mellitus wit h hemoglobin A1c goal of less than 8.0% 05/02/2022 [place] (myocardial infarction) 05/02/2022 Chronic systolic (congestive) heart failure 04/14 Left bundle branch block 05/02/2022 HTN, goal below 130/80 HIV positive documented as of this encounter (statuses as of 04/11/2024) Resolved Problems Problem Noted Date Diagnosed Date Resolved Date Chronic heart failure with p reserved ejection fraction 11/24/2022 02/04/2023 Kidney disease, chronic, sta ge IV (GFR 15-29 ml/min) 05/02/2022 02/02/2024 ARDS (adult respiratory distress syndrome) 06/17/2012 05/02/2022 Acute pancreatitis 06/14/2012 Acute respiratory distress 06/14/2012 0 05/02/2022 documented as of this encounter (statuses as of 04/11/2024) Immunizations Name Administration Dates Next Due COVID-19 mRNA, LNP-s, No Pre serve, 2-Dose Series (Moderna) 11/27/2020,10/24/2020 COVID-19, MRNA-LNP, 23-24, P F, 50 MCG/0.5 mL, 12 YRS AND ABOVE, IM (MODERNA-Spikevax) 08/05/2021 Covid-19, Mrna, Lnp-s, Pf, B ivalent, 30 Mcg, IM, 12 yrs and above (ITelagen) 09/09/2022 Hepatitis B, 20+ yrs 08/25/2017 Meningococcal [...] Care Team (Late st Contact Info) Description 04/20/2024 6:10 PM EDT Pharmacy Pharmacy, [facility] [address] [place] [address] [facility] [address] [place] [address] 04/27/2024 11:00 AM EDT PulmDiagnostic Pulmonary Function Lab, [facility] [address] [facility] [place] [address] [place], [address]ft [address] [place] [address] [place] [address] 05/01/2024 8:30 AM EDT Imaging [facility] 2nd Floor Cardiology, [place] [address] [place] [id number] Gw, Excess Time Radiology 132 [facility] [place] [address] 05/08/2024 9:00 AM EDT Office Visit Transplant Clinic, [place] [address] [place] [address] Lydia Cavazos MD [address] [place] [address] Zenon Tierney MD [address] Nurse [facility] [address] [place] [address] Noni Peters LSW [address] [place] [address] 05/08/2024 1:00 PM EDT Appointment Vascular Lab [facility], [address] [address] 05/08/2024 1:30 PM EDT Laboratory Outpatient Laboratory, [address] [phone] [place], [facility] [address] [address] 05/08/2024 2:30 PM EDT Appointment Radiology, [address] [phone] 05/17/2024 7:15 AM EDT Cardiac Studies Cardiac Studies, [facility] [address] [facility] [place] [address] 05/19/2024 9:30 AM EDT Office Visit Urology Hari Roth [address] [place] [address] Marie Tran PA-C [address] [place] [address] 05/23/2024 10:20 AM EDT Office Visit Nephrology, [facility] [address] [place] [address] Tesfaye Morris MD [address] [facility] [place] [address] 06/12/2024 9:30 AM EDT Office Visit Gastroenterology, [facility] 132 [facility] [place] [address] Erna Srivastava CRNP [address] [facility] [place] [address] 09/19/2024 3:30 PM EST Office Visit Cardiology, [facility] [address] [facility] [place] [address] Davy Mota MD [address] [place] [address] 10/13/2024 9:00 AM EST Office Visit [facility] [address] [place] [address] Antonio Colon MD [address] [place] [address] Pending Results Name Type Priority Associated Diagnoses Date /Time PHOSPHORUS Lab STAT Type 2 diabetes mellitus with hemoglobin A1c goal of less than 8.0% (HCC) ESRD on dialysis (HCC) Pre-transplant evaluation for ESRD (end stage renal disease) 04/11/2024 10:31 AM EDT QUANTIFERON TB GOLD PLUS Lab STAT Type 2 diabetes mellitus with hemoglobin A1c goal of less than 8.0% (HCC) ESRD on dialysis (HCC) Pre-transplant evaluation for ESRD (end stage renal disease) 04/11/2024 10:31 AM EDT LIPID PANEL WITHOUT DIRECT LDL Lab STAT Type 2 diabetes mellitus with hemoglobin A1c goal of less than 8.0% (HCC) ESRD on dialysis (HCC) Pre-transplant evaluation for ESRD (end stage renal disease) 04/11/2024 10:31 AM EDT CMV IGG ANTIBODY Lab STAT Type 2 diabetes mellitus with hemoglobin A1c goal of less than 8.0% (HCC) ESRD on dialysis (HCC) Pre-transplant evaluation for ESRD (end stage renal disease) 04/11/2024 10:31 AM EDT EBV VIRAL CAPSID ANTIGEN IGG ANTIBODY Lab STAT Type 2 diabetes mellitus with hemoglobin A1c goal of less than 8.0% (HCC) ESRD on dialysis (HCC) Pre-transplant evaluation for ESRD (end stage renal disease) 04/11/2024 10:31 AM EDT RPR Lab STAT Type 2 diabetes mellitus with hemoglobin A1c goal of less than 8.0% (HCC) ESRD on dialysis (HCC) Pre-transplant evaluation for ESRD (end stage renal disease) 04/11/2024 10:31 AM EDT HEPATITIS B SURFACE ANTIGEN Lab STAT Type 2 diabetes mellitus with hemoglobin A1c goal of less than 8.0% (HCC) ESRD on dialysis (HCC) Pre-transplant evaluation for ESRD (end stage renal disease) 04/11/2024 10:31 AM EDT HEPATITIS B SURFACE ANTIBODY Lab STAT Type 2 diabetes mellitus with hemoglobin A1c goal of less than 8.0% (HCC) ESRD on dialysis (HCC) Pre-transplant evaluation for ESRD (end stage renal disease) 04/11/2024 10:31 AM EDT HEPATITIS B CORE ANTIBODIES IGG AND IGM Lab STAT Type 2 diabetes mellitus with hemoglobin A1c goal of less than 8.0% (HCC) ESRD on dialysis (HCC) Pre-transplant evaluation for ESRD (end stage renal disease) 04/11/2024 10:31 AM EDT HEPATITIS C ANTIBODY SCREEN WITH PROGRESSION TO HEPATITIS C RNA QUANTITATIVE Lab STAT Type 2 diabetes mellitus with hemoglobin A1c goal of less than 8.0% (HCC) ESRD on dialysis (HCC) Pre-transplant evaluation for ESRD (end stage renal disease) 04/11/2024 10:31 AM EDT VARICELLA-ZOSTER VIRUS ANTIBODY, IGG Lab STAT Type 2 diabetes mellitus with hemoglobin A1c goal of less than 8.0% (HCC) ESRD on dialysis (HCC) Pre-transplant evaluation for ESRD (end stage renal disease) 04/11/2024 10:31 AM EDT APTT Lab STAT Type 2 diabetes mellitus with hemoglobin A1c goal of less than 8.0% (HCC) ESRD on dialysis (HCC) Pre-transplant evaluation for ESRD (end stage renal disease) 04/11/2024 10:31 AM EDT PT INR Lab STAT Type 2 diabetes mellitus with hemoglobin A1c goal of less than 8.0% (HCC) ESRD on dialysis (HCC) Pre-transplant evaluation for ESRD (end stage renal disease) 04/11/2024 10:31 AM EDT COMPREHENSIVE METABOLIC PANEL Lab STAT Type 2 diabetes mellitus with hemoglobin A1c goal of less than 8.0% (HCC) ESRD on dialysis (HCC) Pre-transplant evaluation for ESRD (end stage renal disease) 04/11/2024 10:31 AM EDT TRANSPLANT ABO/RH Lab STAT Type 2 diabetes mellitus with hemoglobin A1c goal of less than 8.0% (HCC) ESRD on dialysis (HCC) Pre-transplant evaluation for ESRD (end stage renal disease) 04/11/2024 10:31 AM EDT TRANSPLANT ABO/RH CONFIRMATION Lab STAT Type 2 diabetes mellitus with hemoglobin A1c goal of less than 8.0% (HCC) ESRD on dialysis (HCC) Pre-transplant evaluation for ESRD (end stage renal disease) 04/11/2024 10:35 AM EDT RECIPIENT SOLID ORGAN PRE-TRANSPLANT HLA * Lab STAT Type 2 diabetes mellitus with hemoglobin A1c goal of less than 8.0% (HCC) ESRD on dialysis (HCC) Pre-transplant evaluation for ESRD (end stage renal disease) 04/11/2024 10:31 AM EDT MONTHLY HLA CLASS 1 & 2 W/REFLEX, SOLID ORGAN TRANSPLANT Lab STAT Type 2 diabetes mellitus with hemoglobin A1c goal of less than 8.0% (HCC) ESRD on dialysis (HCC) Pre-transplant evaluation for ESRD (end stage renal disease) 04/11/2024 10:31 AM EDT PTH Lab STAT Type 2 diabetes mellitus with hemoglobin A1c goal of less than 8.0% (HCC) ESRD on dialysis (HCC) Pre-transplant evaluation for ESRD (end stage renal disease) 04/11/2024 10:31 AM EDT HEMOGLOBIN A1C Lab STAT Type 2 diabetes mellitus with hemoglobin A1c goal of less than 8.0% (HCC) ESRD on dialysis (HCC) Pre-transplant evaluation for ESRD (end stage renal disease) 04/11/2024 10:31 AM EDT PSA Lab STAT Type 2 diabetes mellitus with hemoglobin A1c goal of less than 8.0% (HCC) ESRD on dialysis (HCC) Abnormal findings on diagnostic imaging of limbs Pre-transplant evaluation for ESRD (end stage renal disease) 04/11/2024 10:31 AM EDT HEPATITIS C ANTIBODY Lab STAT Type 2 diabetes mellitus with hemoglobin A1c goal of less than 8.0% (HCC) ESRD on dialysis (HCC) Pre-transplant evaluation for ESRD (end stage renal disease) 04/11/2024 10:31 AM EDT HEPATITIS C RNA ADD ON Lab STAT Type 2 diabetes mellitus with hemoglobin A1c goal of less than 8.0% (HCC) ESRD on dialysis (HCC) Pre-transplant evaluation for ESRD (end stage renal disease) 04/11/2024 10:31 AM EDT PROTEIN/ CREATININE RATIO, URINE Lab STAT Type 2 diabetes mellitus with hemoglobin A1c goal of less than 8.0% (HCC) ESRD on dialysis (HCC) Pre-transplant evaluation for ESRD (end stage renal disease) 04/11/2024 10:37 AM EDT URINALYSIS, REFLEX TO MICROSCOPIC Lab STAT Type 2 diabetes mellitus with hemoglobin A1c goal of less than 8.0% (HCC) ESRD on dialysis (HCC) Pre-transplant evaluation for ESRD (end stage renal disease) 04/11/2024 10:37 AM EDT CULTURE, URINE, QUANTITATIVE Lab STAT Type 2 diabetes mellitus with hemoglobin A1c goal of less than 8.0% (HCC) ESRD on dialysis (HCC) Pre-transplant evaluation for ESRD (end stage renal disease) 04/11/2024 10:37 AM EDT Scheduled Procedures Name Priority Associated Diagnoses [...] 08/12/2023, 09/09/2022, 06/19/2021, Additional history exists HbA1c 08/04/2024 02/02/2024, 04/14, 08/12/2022, Additional history exists Colonoscopy 01/06/2025 01/07/2024, 06/0 05/2023, 02/19/2023 Colorectal Cancer Screening 01/06/2025 Depression Monitoring 01/17/2025 01/18/2024 Diabetic Foot Exam 01/17/2025 01/18/2024, 11/24/2022 TSH 02/01/2025 02/02/2024, 01/12, 01/18/2024 DTaP,Tdap,and Td Vaccines (2 - Td or Tdap) 07/23/2027 07/23/2017 AAA Screening Completed 01/21/2022, 01/11, 10/06/2019, Additional history exists Hepatitis C Screening Completed 05/07/2022 Nephrology Referral Discontinued 08/12/2022 Albumin/Creatinine Ratio Discontinued 05/07/2023, 11/2021 RETIRED - COLONOSCOPY-ANNUAL AGES 18-100 Discontinued 01/07/2024, 02/19/2023, 02/19/2023 HPV (Gardasil) Vaccine Aged Out No lo nger eligible based on patient's age to complete this topic documented as of this encounter Medical Devices Not on filedocumented as of this encounter Procedures Procedure Name Priority Date/Time Associated Diagnosis Comments DIFFERENTIAL, AUTOMATED STAT 04/11/2024 10:31 AM EDT Type 2 diabetes mellitus with hemoglobin A1c goal of less than 8.0% (HCC) ESRD on dialysis (HCC) Pre-transplant evaluation for ESRD (end stage renal disease) CBC STAT 04/11/2024 10:31 AM EDT Type 2 diabetes mellitus with hemoglobin A1c goal of less than 8.0% (HCC) ESRD on dialysis (HCC) Pre-transplant evaluation for ESRD (end stage renal disease) CBC STAT 04/11/2024 10:31 AM EDT Type 2 diabetes mellitus with hemoglobin A1c goal of less than 8.0% (HCC) ESRD on dialysis (HCC) Pre-transplant evaluation for ESRD (end stage renal disease) documented in this encounter Results * (ABNORMAL) DIFFERENTIAL, AUTOMATED (04/11/2024 10:31 AM EDT) WBC 4.27 4.00 - 10.80 K/uL 04/11/2024 10:49 AM EDT [facility] [place] [facility]10 Neutrophils % 55.0 40.0 - 75.0 % 04/11/2024 10:49 AM EDT [facility] [place] 57[facility]10 Lymphocytes % 23.7 18.0 - 42.0 % 04/11/2024 10:49 AM EDT [facility] [place] 57[facility]10 Monocytes % 19.7(H) 1.0 - 11.0 % 04/11/2024 10:49 AM EDT [facility] [place] 57[facility]10 Eosinophils % 1.4 0.0 - 6.0 % 04/11/2024 10:49 AM EDT [facility] [place] 57[facility]10 Basophils % 0.2 0.0 - 2.0 % 04/11/2024 10:49 AM EDT [facility] [place] 57[facility]10 Absolute Neutrophils 2.35 1.80 - 7.70 K/uL 04/11/2024 10:49 AM EDT [facility] [place] [facility]10 Absolute Lymphocytes 1.01 1.00 - 4.80 K/ul 04/11/2024 10:49 AM EDT [facility] 57-10 Absolute Monocytes 0.84 0.00 - 1.10 K/uL 04/11/2024 10:49 AM EDT [facility] [place] [facility]10 Absolute Eosinophils 0.06 0.00 - 0.70 K/uL 04/11/2024 10:49 AM EDT [facility] [place] [facility]10 Absolute Basophils 0.01 0.00 - 0.20 K/uL 04/11/2024 10:49 AM EDT [facility] 57-10 Blood Venous blood specimen / Unknown Venipuncture / Unknown 04/11/2024 10:31 AM EDT 04/11/2024 10:31 AM EDT Librado Stubbs MD LAB BLOOD ORDER [facility] [address] [place] [id number] * (ABNORMAL) CBC (04/11/2024 10:31 AM EDT) WBC 4.27 4.00 - 10.80 K/uL 04/11/2024 10:49 AM EDT [facility] 57-10 RBC 4.42 4.50 - 5.25 M/uL 04/11/2024 10:49 AM EDT [facility] 57-10 HGB 13.0(L) 14.0 - 16.8 g/dL 04/11/2024 10:49 AM EDT [facility] 57-10 HCT 38.6(L) 40.0 - 48.4 % 04/11/2024 10:49 AM EDT [facility] [place] [facility]10 MCV 87.3 82.0 - 99.5 fL 04/11/2024 10:49 AM EDT [facility] [place] [facility]10 MCH 29.4 27.0 - 34.0 pg 04/11/2024 10:49 AM EDT [facility] [place] [facility]10 MCHC 33.7 32.0 - 36.0 g/dL 04/11/2024 10:49 AM EDT [facility] [place] [facility]10 RDW 12.7 11.5 - 15.5 % 04/11/2024 10:49 AM EDT [facility] [place] [facility]10 PLT 167 140 - 400 K/uL 04/11/2024 10:49 AM EDT [facility] [place] [facility]10 MPV 9.0 6.6 - 11.1 fL 04/11/2024 10:49 AM EDT [facility] [place] [facility]10 Blood Venous blood specimen / Unknown Venipuncture / Unknown 04/11/2024 10:31 AM EDT 04/11/2024 10:31 AM EDT Librado Stubbs MD LAB BLOOD ORDER [facility]10 [address] [place] [address] documented in this encounter Visit Diagnoses Diagnosis Type 2 diabetes mellitus with hemoglobin A1c goal of less than 8.0% (HCC) ESRD on dialysis (HCC) End stage renal disease Pre-transplant evaluation for ESRD (end stage renal disease) Other specified pre-operative examination Abnormal findings on diagnostic imaging of limbs Other nonspecific (abnormal) findings on radiological and other examinations of body structure documented in this encounter Advance Directives * Full Code (Latest Code Status on File) Date Activated Date Inactivated Comments 06/14/2012 6:26 PM 06/17/2012 7:43 PM This order r eflects the patients wishes and were consensually agreed upon. Healthcare Agents on File Name Relationship Healthcare Agent Relationshi p Communication Lorin Silvestre [facility] Health Care Repr esentative (appointed verbally by patient or by statute hierarchy) Care Teams Talend Developer Relationship Specialty Start Date End Date Antonio Colon MD [address] [place] [address] PCP - General Family Medicine 02/12/22 documented as of this encounter
--- OUTSIDE RECORDS SUMMARY | 2024-09-21 08:10 | External Medical Summary ---
Author Name Unknown Address Unknown Organization [id number]:[facility] - [address] [place] [id number] Laboratory Report Ordering Provider Test Date Status STEVE WOLF 04/11/2024 10:37:47 Final Observation Date Value Abnormality Reference (Units) Status Bacteria identified in Specimen by Culture 04/11/2024 10:37:47 No significant growth Final Test: Culture, Urine, Quanti tative
Specimen Source: Urine, Clean Catch
Specimen Type: Urine
Specimen Date: 04/11/2024 1037
Result Date: 04/12/2024 1132
Result Status: Final result
Resulting Lab: [facility]
[address]
[facility] [address]

CULTURE

No significant growth

null Performing Location [facility]AT[facility] - [address] [facility] [address]
--- OUTSIDE RECORDS SUMMARY | 2024-09-21 08:10 | External Medical Summary | Summary of Care ---
Author Name Unknown Organization [facility] Address [address] [place] [address] Phone [phone] Care Team Providers Care Mold Shifter Name Role Phone Antonio Colon MD Primary Care Provider [phone] Reason for Visit * Reason Onset Date Comments Home Health 01/12/2024 Encounter Details Date Type Department Care Team (Late st Contact Info) Description 01/12/2024 Telephone Family Practice [facility] [address] [place] [address] Antonio Colon MD [address] [place] [address] Home Health Allergies No known active allergiesdocumented as of this encounter (statuses as of 04/12/2024) Medications Medication Sig Dispensed Refills Start Date [...] 04/29/2023 Active Calcitriol 0.5 MCG Oral Capsule (Rocaltrol)Indication s:CKD (chronic kidney disease) stage 4, GFR 15-29 ml/min ([facility]) TAKE 1 CAPSULE (0.5 MCG) BY MOUTH IN THE MORNING. 90 Capsule 5 09/15/2023 Active Metoprolol Succinate ER 25 MG Oral Tablet Extended Release 24 Hour (toPROL XL)Indications:[place]ass ry artery disease involving [place] post[place] coronary artery of [place] heart without angina pectoris TAKE 1 TABLET BY MOUTH EVERY DAY IN THE MORNING 90 Tablet 3 10/05/2023 Active Prasugrel HCl 10 MG Oral Tablet (Effient)Indications: Coronary artery disease involving [place] coronary artery of [place] heart without angina pectoris TAKE 1 TABLET BY MOUTH EVERY DAY IN THE MORNING 90 Tablet 3 10/05/2023 Active Atorvastatin Calcium 40 MG Oral Tablet (Lipitor)Indications: Dyslipidemia, goal LDL below 70 TAKE 1 TABLET BY MOUTH EVERY DAY IN THE MORNING 90 Tablet 3 10/06/2023 Active Juluca 50-25 MG Oral Tablet Take 1 Tablet by mouth daily. 90 Tablet 3 12/01/2023 Active Pen [place] 32G X 4 MM Use as directed. 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 05/07/2023 Recurrent major depressive disorder, in full rem ission 05/05/2022 Overweight (BMI 25.0-29.9) 05/02/2022 Dyslipidemia 05/02/2022 Coronary artery disease invo lving [place] post[place] coronary artery of [place] post[place] heart without angina pectoris 05/02/2022 Type 2 diabetes mellitus wit h hemoglobin A1c goal of less than 8.0% 05/02/2022 [place] (myocardial infarction) 05/02/2022 Chronic systolic (congestive) heart failure 04/14 Left bundle branch block 05/02/2022 HTN, goal below 130/80 HIV positive documented as of this encounter (statuses as of 04/12/2024) Resolved Problems Problem Noted Date Diagnosed Date Resolved Date Chronic heart failure with p reserved ejection fraction 11/24/2022 02/04/2023 Kidney disease, chronic, sta ge IV (GFR 15-29 ml/min) 05/02/2022 02/02/2024 ARDS (adult respiratory distress syndrome) 06/17/2012 05/02/2022 Acute pancreatitis 06/14/2012 Acute respiratory distress 06/14/2012 0 05/02/2022 documented as of this encounter (statuses as of 04/12/2024) Immunizations Name Administration Dates Next Due COVID-19 mRNA, LNP-s, No Pre serve, 2-Dose Series (Moderna) 11/27/2020,10/24/2020 COVID-19, MRNA-LNP, 23-24, P F, 50 MCG/0.5 mL, 12 YRS AND ABOVE, IM (MODERNA-Spikevax) 08/05/2021 Covid-19, Mrna, Lnp-s, Pf, B ivalent, 30 Mcg, IM, 12 yrs and above ([employer]) 09/09/2022 Hepatitis B, 20+ yrs 08/25/2017 Meningococcal [...] encounter Miscellaneous Notes * Telephone Encounter - Sydni Mendes LPN - 01/14/2024 8:12 AM EDT noted * Telephone Encounter - Shelly Trinh LPN - 01/12/2024 3:50 PM EDT Shelly RN, Calling from: [place] Patient was Admitted to: [facility], for: CKF D/c possibly 01/12 Referral ordered by: [facility] Referral received for: Intermediate Planned start of care date: no date set yet. Last Office Visit: 05/07/2023 Has patient been scheduled or seen in the office for a follow up visit: Needs contacted to schedulefollow up Shelly indicated they will hold of on scheduling HH eval until appt with PCP office can be made to confirm, orders will be signed. documented in this encounter Plan of Treatment Upcoming Encounters Date Type Department Care Team (Late st Contact Info) Description 04/20/2024 6:10 PM EDT Pharmacy Pharmacy, [facility] [address] [place] [address] [facility] [address] [place] [address] 04/27/2024 11:00 AM EDT PulmDiagnostic Pulmonary Function Lab, [facility] [address] [place] [address] [place], [address] [place] [address] 05/01/2024 8:30 AM EDT Imaging [facility] 2nd Floor Cardiology, [place] [address] [place] [phone] Gw, Excess Time Radiology [address] [place] [address] 05/08/2024 9:00 AM EDT [facility] [address] [facility] [place] [id number] Lydia Cavazos MD [address] [place] [address] Zenon Tierney MD [address] [place] [address] Nurse Isabel Renal Transplant [address] [place] [address] Noni Peters LSW [address] [place], [place] 05/08/2024 1:00 PM EDT Appointment Vascular Lab [facility] [place] [address] [place] [address] 05/08/2024 1:30 PM EDT Laboratory Outpatient Laboratory, [place] [address] [place] [phone] [place], Lab B1a [address] [place], [place] [phone] 05/08/2024 2:30 PM EDT Appointment Radiology, [place] [address] [place] [phone] 05/17/2024 7:15 AM EDT Cardiac Studies Cardiac Studies, [facility] [address] [place] [address] 05/19/2024 9:30 AM EDT Office Visit Urology Hari Roth [address] [place] [address] Marie Tran PA-C [address] [place] [address] 05/23/2024 10:20 AM EDT Office Visit NephrologyMadeline [address] [place] [address] Tesfaye Morris MD [address] [place] [address] 06/12/2024 9:30 AM EDT Office Visit Gastroenterology, [facility] [place] [address] Erna Srivastava CRNP [facility] [place] [address] 09/19/2024 3:30 PM EST Office Visit Cardiology, [facility] 132 [facility] [place] [address] Davy Mota MD [address] [place] [address] 10/13/2024 9:00 AM EST Office Visit Family Practice [facility] [address] [facility] [place] [address] Antonio Colon MD 132 [facility] [place] [address] Scheduled Procedures Name Priority Associated Diagnoses Date/Ti [...] COLONOSCOPY-ANNUAL AGES 18-100 Discontinued 01/07/2024, 02/19/2023, 02/19/2023 Hepatitis C Screening Completed 04/11/2024 , 04/11/2024, 04/11/2024, Additional history exists HPV (Gardasil) Vaccine Aged [...] patient or by statute hierarchy) Care Teams Mold Shifter Relationship Specialty Start Date End Date Antonio Colon MD [address] [place] [address] PCP - General Family Medicine 02/12/22 documented as of this encounter
--- OUTSIDE RECORDS SUMMARY | 2024-09-21 08:10 | External Medical Summary ---
Author Name Unknown Address Unknown Organization [facility] [address] [facility] [address] Laboratory Report Ordering Provider Test Date Status STEVE WOLF 04/11/2024 10:37:47 Final Observation Date Value Abnormality Reference (Units ) Status Color of Urine by Auto 04/11/2024 10:37:47 Yellow Light Yellow, Yellow, Dark Yellow Final Clarity, Urine 04/11/2024 10:37:47 Clear Clear Final Glucose [Mass/volume] in Urine by Automated test strip 04/11/2024 10:37:47 >=1000 Abnormal Negative (mg/dL) Final Bilirubin.total [Presence] in Urine by Automated test strip 04/11/2024 10:37:47 Negative Negative Final Ketones [Mass/volume] in Urine by Automated test strip 04/11/2024 10:37:47 Negative Negative (mg/dL) Final Specific gravity, Urine 04/11/2024 10:37:47 1.020 1.003-1.030 Final Hemoglobin [Presence] in Urine by Automated test strip 04/11/2024 10:37:47 Negative Negative Final pH, Urine 04/11/2024 10:37:47 8.5 Above high normal 5.0-7.5 (Units) Final Protein [Mass/volume] in Urine by Automated test strip 04/11/2024 10:37:47 100 Abnormal Negative (mg/dL) Final Urobilinogen [Mass/volume] in Urine by Automated test strip 04/11/2024 10:37:47 0.2 0.2, 1.0 (mg/dL) Final Nitrite [Presence] in Urine by Automated test strip 04/11/2024 10:37:47 Negative Negative Final Leukocyte esterase [Presence] in Urine by Automated test strip 04/11/2024 10:37:47 Negative Negative Final Performing Location [facility] [place] [address]
--- OUTSIDE RECORDS SUMMARY | 2024-09-21 08:10 | External Medical Summary | Summary of Care ---
Author Name Unknown Organization [facility] Address [address] [place] [address] Phone [phone] Care Team Providers Care Test Data Developer Name Role Phone Abimael Colon MD Primary Care Provider [phone] Encounter Details Date Type Department Care Team (Late st Contact Info) Description 04/26/2024 Refill Family Practice [facility] [address] [place] [address] Abimael Colon MD [address] [place] [address] Type 2 diabetes mellitus with hemoglobin A1c goal of less than 8.0% ([facility]) Allergies No known active allergiesdocumented as of this encounter (statuses as of 04/26/2024) Medications Medication Sig Dispensed Refills Start Date [...] 04/29/2023 Active Calcitriol 0.5 MCG Oral Capsule (Rocaltrol)Indicat ions:CKD (chronic kidney disease) stage 4, GFR 15-29 ml/min ([facility]) TAKE 1 CAPSULE (0.5 MCG) BY MOUTH IN THE MORNING. 90 Capsule 5 09/15/2023 Active Metoprolol Succinate ER 25 MG Oral Tablet Extended Release 24 Hour (toPROL XL)Indications:Cor onary artery disease involving [place] coronary artery of menominee heart without angina pectoris TAKE 1 TABLET BY MOUTH EVERY DAY IN THE MORNING 90 Tablet 3 10/05/2023 Active Prasugrel HCl 10 MG Oral Tablet (Effient)Indicatio ns:Coronary artery disease involving [place] coronary artery of [place]om[place] heart without angina pectoris TAKE 1 TABLET BY MOUTH EVERY DAY IN THE MORNING 90 Tablet 3 10/05/2023 Active Atorvastatin Calcium 40 MG Oral Tablet (Lipitor)Indicatio ns:Dyslipidemia, goal LDL below 70 TAKE 1 TABLET BY MOUTH EVERY DAY IN THE MORNING 90 Tablet 3 10/06/2023 Active Juluca 50-25 MG Oral Tablet Take 1 Tablet by mouth daily. 90 Tablet 3 12/01/2023 Active Pen [place] 32G X 4 MM Use as directed. [...] first thing in the morning. 90 Tablet 03/24/2024 Active NIFEdipine ER Osmotic Release 30 MG Oral Tablet Extended Release 24 Hour (Procardia XL) Take 1 Tablet by mouth in the morning. In the morning.. 90 Tablet 3 03/24/2024 Active Pantoprazole Sodium 40 MG Oral Tablet Delayed Release (Protonix) Take 1 Tablet by mouth in the morning. 90 Tablet 3 03/24/2024 Active FreeStyle Carlos 2 [place] DeviceIndications: Type 2 diabetes mellitus with hemoglobin [...] With meals. 15 mL 3 04/26/2024 Active Fiasp FlexTouch 100 UNIT/ML Subcutaneous Solution Pen-injector (Insulin Aspart (w/Niacinamide))In dications:Type 2 diabetes mellitus with hemoglobin A1c goal of less than 8.0% (HCC) Inject 10 Units under the skin in the morning and 10 Units at noon and 10 Units before bedtime. With meals. 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 05/07/2023 Recurrent major depressive disorder, in full rem ission 05/05/2022 Overweight (BMI 25.0-29.9) 05/02/2022 Dyslipidemia 05/02/2022 Coronary artery disease invo lving [place] coronary artery of [place]ominee heart without angina pectoris 05/02/2022 Type 2 diabetes mellitus wit h hemoglobin A1c goal of less than 8.0% 05/02/2022 Old [place] (myocardial infarction) 05/02/2022 Chronic systolic (congestive) heart failure 04/14 Left bundle branch block 05/02/2022 HTN, goal below 130/80 HIV positive documented as of this encounter (statuses as of 04/26/2024) Resolved Problems Problem Noted Date Diagnosed Date Resolved Date Chronic heart failure with p reserved ejection fraction 11/24/2022 02/04/2023 Kidney disease, chronic, sta ge IV (GFR 15-29 ml/min) 05/02/2022 02/02/2024 ARDS (adult respiratory distress syndrome) 06/17/2012 05/02/2022 Acute pancreatitis 06/14/2012 2 Acute respiratory distress 06/14/2012 0 05/02/2022 documented as of this encounter (statuses as of 04/26/2024) Immunizations Name Administration Dates Next Due COVID-19 mRNA, LNP-s, No Pre serve, 2-Dose Series (Moderna) 11/27/2020,10/24/2020 COVID-19, MRNA-LNP, 23-24, P F, 50 MCG/0.5 mL, 12 YRS AND ABOVE, IM (MODERNA-Spikevax) 08/05/2021 Covid-19, Mrna, Lnp-s, Pf, B ivalent, 30 Mcg, IM, 12 yrs and above ([employer]) 09/09/2022 Hepatitis B, 20+ yrs 08/25/2017 Meningococcal [...] Miscellaneous Notes * Telephone Encounter - Abimael Colon MD - 04/26/2024 2:34 PM EDTSigned Prescriptions: Disp Refills Fiasp FlexTouch 100 UNIT/ML Subcutaneous S*15 mL 3 Sig: Inject 10 Units under the skin in the morning and 10 Units at noon and 10 Units before bedtime. With meals.Authorizing Provider: ABIMAEL COLON * Telephone Encounter - Sydni Mendes LPN - 04/26/2024 1:50 PM EDT Pt stopped by office very confused about insulin. Pt states he was changed from Novolog flex pen toFiasp flex touch for formulary reasons and now is unable to get Fiasp d/t same reason Attempted to call [facility] to clarify Pt will be without medication soon Please send to alternate pharmacy documented in this encounter Plan of Treatment Upcoming Encounters Date Type Department Care Team (Late st Contact Info) Description 04/27/2024 11:00 AM EDT PulmDiagnostic Pulmonary Function Lab, [address] [place] [address] [place], [address] [place] [address] 05/01/2024 8:30 AM EDT Imaging [facility] 2nd Floor Cardiology, [place] 132 [facility] [place] [phone] Gw, Excess Time Radiology [address] [facility] [address] 05/02/2024 1:00 PM EDT Imaging Vascular Lab, [address], [place] 132 [facility] [place] [address] 05/03/2024 10:10 AM EDT Office Visit Vascular Surgery, [facility] 132 [facility] [place] [address] Benjamin Cartagena MD [address] [place] [address] 05/08/2024 9:00 AM EDT Office Visit Transplant Clinic, [place] [address] [place] [address] Lydia Cavazos MD [address] [place] [address] Zenon Tierney MD [address] [place] [address] Nurse Isabel Renal Transplant [address] [place] [address] Noni Peters LSW [address] [place] [address] 05/08/2024 1:00 PM EDT Appointment Vascular Lab [facility], [place] [address] [place] [address] 05/08/2024 1:30 PM EDT Laboratory Outpatient Laboratory, [address] [place] [address] [facility] [address] [place] [address] 05/08/2024 2:30 PM EDT Appointment Radiology, [place] [address] [place] [address] 05/17/2024 7:15 AM EDT Cardiac Studies Cardiac Studies, [facility] [address] [place] [address] 05/19/2024 9:30 AM EDT Office Visit Urology Brenda Rothwn [address] [place] [address] Marie Tran PA-C [address] [place] [address] 05/19/2024 6:10 PM EDT Pharmacy Pharmacy, [facility] [address] [place] [address] [facility] 132 [facility] [place] [address] 05/23/2024 10:20 AM EDT Office Visit Nephrology, [facility] 200 [facility] [place] [address] Tesfaye Morris MD 200 [facility] [place] [address] 06/12/2024 9:30 AM EDT Office Visit Gastroenterology, [facility] [address] [place] [address] Erna Srivastava CRNP [address] [place] [address] 09/19/2024 3:30 PM EST Office Visit Cardiology, [facility] [address] [place] [address] Davy Mota MD [address] [place] [address] 10/13/2024 9:00 AM EST Office Visit Family [facility] [address] [place] [address] Abimael Colon MD [address] [place] [address] Scheduled Procedures Name Priority Associated Diagnoses Date/Ti [...] Communication Lorin Silvestre [facility] Health Care Repr esentative (appointed verbally by patient or by statute hierarchy) Care Teams Test Data Developer Relationship Specialty Start Date End Date Abimael Colon MD [address] [place] [address] PCP - General Family Medicine 02/12/22 documented as of this encounter
--- OUTSIDE RECORDS SUMMARY | 2024-09-21 08:10 | External Medical Summary | Summary of Care ---
Author Name Unknown Organization [facility] Address [address] [place] [address] Phone [phone] Care Team Providers Care Plastic Machine Operator Name Role Phone Antonio Colon MD Primary Care Provider [phone] Reason for Visit * Reason Onset Date Comments MyCode Consent 04/11/2024 Encounter Details Date Type Department Care Team (Late st Contact Info) Description 04/11/2024 Orders Only Outcomes Research Department [address] [place] [address] Promise David CHRA MyCode Research Other*[id number]* Allergies No known active allergiesdocumented as of [...] Hour (toPROL XL)Indications:Bayron nary artery disease involving [place] coronary artery of [place] heart without angina pectoris TAKE 1 TABLET BY MOUTH EVERY DAY IN THE MORNING 90 Tablet 3 10/05/2023 Active Prasugrel HCl 10 MG Oral Tablet (Effient)Indication s:Coronary artery disease involving [place] coronary artery of [place] heart without angina pectoris TAKE 1 TABLET BY MOUTH EVERY DAY IN THE MORNING 90 Tablet 3 10/05/2023 Active Atorvastatin Calcium 40 MG Oral Tablet (Lipitor)Indication s:Dyslipidemia, goal LDL below 70 TAKE 1 TABLET BY MOUTH EVERY DAY IN THE MORNING 90 Tablet 10/06/2023 Active Juluca 50-25 MG Oral Tablet Take 1 Tablet by mouth daily. 90 Tablet 3 12/01/2023 Active Pen [place] 32G X 4 MM Use as [...] Tablet 3 03/24/2024 Active FreeStyle Carlos 2 [place] DeviceIndications:T ype 2 diabetes mellitus with hemoglobin A1c goal of less than 8.0% ([facility]) Use as directed. Use to test BG E10.65 1 Each 04/11/2024 Active FreeStyle Carlos 2 SensorIndications:T ype 2 diabetes mellitus with hemoglobin A1c goal of less than 8.0% ([facility]) Use as directed. Use one sensor every 14 days for blood sugar E10.65 1 Each 04/11/2024 Active Hospital, Clinic, or Other Facility [...] Dyslipidemia 05/02/2022 Coronary artery disease invo lving [place] coronary artery of [place] heart without angina pectoris 05/02/2022 Type 2 diabetes mellitus wit h hemoglobin A1c goal of less than 8.0% 05/02/2022 Old [place] (myocardial infarction) 05/02/2022 Chronic [...] 30 Mcg, IM, 12 yrs and above ([facility]) 09/09/2022 Hepatitis B, 20+ yrs 08/25/2017 Meningococcal [...] as of this encounter Progress Notes * Promise David CHRA - 04/11/2024 10:19 AM EDT MyCode Consent Documentation Tad Adeline Pattony provided consent/authorization to participate in the MyCode Project. documented in this encounter Plan of Treatment Upcoming Encounters Date Type Department Care Team (Latest Contact Info) Description 04/11/2024 10:40 AM EDT Laboratory Laboratory, [facility] [address] [place] [address] [facility] [address] [place] [address] Type 2 diabetes mellitus with hemoglobin A1c goal of less than 8.0% ([facility]); ESRD on dialysis ([facility]); Pre-transplant evaluation for ESRD (end stage renal disease); Abnormal findings on diagnostic imaging of limbs 04/20/2024 6:10 PM EDT Pharmacy Pharmacy, [address] [place] [address] [facility] [place] [address] 04/27/2024 11:00 AM EDT PulmDiagnostic Pulmonary Function Lab, [facility] [address] [place] [address] [place], [address] [place] [address] 05/01/2024 8:30 AM EDT Imaging [facility] 2nd Floor Cardiology, [place] [address] , Excess Time Radiology [address] [place] [address] 05/08/2024 9:00 AM EDT Office Visit Transplant Clinic, [address] [place] [address] Lydia Cavazos MD [address] [place], [place] [phone] Zenon Tierney MD [address] [place] [address] Nurse Isabel Renal Transplant [address] [place], [place] [phone] Noni Peters LSW [address] [place], [place] [phone] 05/08/2024 1:00 PM EDT Appointment Vascular Lab [facility], [place] [address] [place] [address] 05/08/2024 1:30 PM EDT Laboratory Outpatient Laboratory, [address] [phone] [facility] [address] [place] [address] 05/08/2024 2:30 PM EDT Appointment Radiology, [address] [phone] 05/17/2024 7:15 AM EDT Cardiac Studies Cardiac Studies, [facility] 132 [facility] [place] [address] 05/19/2024 9:30 AM EDT Office Visit Urology Hari Roth [address] [place] [address] Marie Tran PA-C [address] [place] [address] 05/23/2024 10:20 AM EDT Office Visit Nephrology, [facility] [address] [place] [address] Tefsaye Morris MD [address] [place] [address] 06/12/2024 9:30 AM EDT Office Visit Gastroenterology, [facility] [address] [facility] [place] [address] Erna Srivastava CRNP [address] [place] [address] 09/19/2024 3:30 PM EST Office Visit Cardiology, [facility] [address] [place] [address] Davy Mota MD [address] [place] [address] 10/13/2024 9:00 AM EST Office Visit Family Practice [facility] [place] [address] Antonio Colon MD [address] [place] [address] Scheduled Orders Name Type Priority Associated Diagnoses Orde r Schedule MYCODE INITIAL ADULT Lab Routine MyCode Research Other*[id number] Expected: 04/11/2024 (Approximate), Expires: 05/01/2025 Scheduled Procedures Name Priority Associated Diagnoses Date/Ti [...] 08/12/2022, Additional history exists Colonoscopy 01/06/2025 01/07/2024, 05/2023, [...] radiological and other examinations of body structure MyCode Research Other*[id number] Primary documented in this encounter Advance Directives * Full Code (Latest Code Status on File) Date Activated Date Inactivated Comments 06/14/2012 6:26 PM 06/17/2012 7:43 PM This order r eflects the patients wishes and were consensually agreed upon. Healthcare Agents on File Name Relationship Healthcare Agent Relationshi p Communication Lorin Silvestre [facility] Health Care Repr esentative (appointed verbally by patient or by statute hierarchy) Care Teams Plastic Machine Operator Relationship Specialty Start Date End Date Antonio Colon MD [address] [place] [address] PCP - General Family Medicine 02/12/22 documented as of this encounter
--- OUTSIDE RECORDS SUMMARY | 2024-09-21 08:10 | External Medical Summary | Summary of Care ---
Author Name Unknown Organization [facility] Address [address] [place] [address] Phone [phone] Care Team Providers Care Airplane Refueler Name Role Phone Antonio Colon MD Primary Care Provider [phone] Reason for Visit * Reason Comments Appointment Encounter Details Date Type Department Care Team (Late st Contact Info) Description 04/20/2024 6:10 PM EDT Pharmacy Pharmacy, [facility] [address] [place] [address] [facility] [address] [place] [address] Type 2 diabetes mellitus with hemoglobin A1c goal of less than 8.0% ([facility])* Allergies No known active allergiesdocumented as of this encounter (statuses as of 04/20/2024) Medications Medication Sig Dispensed Refills Start Date [...] kidney disease) stage 4, GFR 15-29 ml/min ([facility]) TAKE 1 CAPSULE (0.5 MCG) BY MOUTH IN THE MORNING. 90 Capsule 5 09/15/2023 Active Metoprolol Succinate ER 25 MG Oral Tablet Extended Release 24 Hour (toPROL XL)Indications:Bayron nary artery disease involving [place] coronary artery of [place] heart without angina pectoris TAKE 1 TABLET BY MOUTH EVERY DAY IN THE MORNING 90 Tablet 3 10/05/2023 Active Prasugrel HCl 10 MG Oral Tablet (Effient)Indication s:Coronary artery disease involving [place] coronary artery of [place] heart without angina pectoris TAKE 1 TABLET [...] 90 Tablet 3 12/01/2023 Active Pen [place] 32G X 4 MM Use as directed. [...] hemoglobin A1c goal of less than 8.0% ([facility]) Inject 10 Units under the skin in [...] Tablet 3 03/24/2024 Active FreeStyle Carlos 2 Jackson DeviceIndications:T ype 2 diabetes mellitus with hemoglobin A1c goal of less than 8.0% ([facility]) Use as directed. Use to test BG E10.65 1 Each 04/11/2024 Active FreeStyle Carlos 2 SensorIndications:T ype 2 diabetes mellitus with hemoglobin A1c goal of less than 8.0% ([facility]) Use as directed. Use one sensor every 14 days for blood sugar E10.65 1 Each 11 04/11/2024 Active Hospital, Clinic, or Other Facility Administered Medication Ordered Dose Route Frequency Start Date End Date Status Albuterol Sulfate (Proventil) (2.5 MG/3ML) 0.083% inhalation solution 2.5 mgIndications:ESRD on dialysis ([facility]),Pre-transplant evaluation for ESRD (end stage renal disease) 2.5 mg NEBULIZER PRN 03/24/2024 Acti ve Albuterol Sulfate (Proventil) (5 MG/ML) 0.5% *conc* inhalation solution 2.5 mgIndications:ESRD on dialysis ([facility]),Pre-transplant evaluation for ESRD (end stage renal disease) 2.5 mg NEBULIZER PRN 03/24/2024 Acti ve documented as of this encounter (statuses as of 04/20/2024) Active Problems Problem Noted Date Diagnosed Date ESRD on dialysis 02/02/2024 History of GI bleed 02/02/2024 Overview: Duodenal ulcer Duodenal ulcer 02/02/2024 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 05/07/2023 Recurrent major depressive disorder, in full rem ission 05/05/2022 Overweight (BMI 25.0-29.9) 05/02/2022 Dyslipidemia 05/02/2022 Coronary artery disease invo lving [place] coronary artery of [place] heart without angina pectoris 05/02/2022 Type 2 diabetes mellitus wit h hemoglobin A1c goal of less than 8.0% 05/02/2022 Old VT (myocardial infarction) 05/02/2022 Chronic systolic (congestive) heart failure 04/14 Left bundle branch block 05/02/2022 HTN, goal below 130/80 HIV positive documented as of this encounter (statuses as of 04/20/2024) Resolved Problems Problem Noted Date Diagnosed Date Resolved Date Chronic heart failure with p reserved ejection fraction 11/24/2022 02/04/2023 Kidney disease, chronic, sta ge IV (GFR 15-29 ml/min) 05/02/2022 02/02/2024 ARDS (adult respiratory distress syndrome) 06/17/2012 05/02/2022 Acute pancreatitis 06/14/2012 Acute respiratory distress 06/14/2012 0 05/02/2022 documented as of this encounter (statuses as of 04/20/2024) Immunizations Name Administration Dates Next Due COVID-19 mRNA, LNP-s, No Pre serve, 2-Dose Series (Moderna) 11/27/2020,10/24/2020 COVID-19, MRNA-LNP, 23-24, P F, 50 MCG/0.5 mL, 12 YRS AND ABOVE, IM (MODERNA-Spikevax) 08/05/2021 Covid-19, Mrna, Lnp-s, Pf, B ivalent, 30 Mcg, IM, 12 yrs and above ([employer]) 09/09/2022 Hepatitis B, 20+ yrs 08/25/2017 Meningococcal [...] of this encounter Progress Notes * Yamilex Mario caddy - 04/20/2024 10:12 AM EDT Patient Phone Numbers Left message on patients answering machine to schedule MTDM appointment for diabetes management. [facility] message sent --no Clinic will follow up again in 4 week(s). [Attempt # 3] Thank you, Yamilex Mario, [facility] Feller Operator II [facility] 04/20/2024,10:12 AM documented in this encounter Plan of Treatment Upcoming Encounters Date Type Department Care Team (Late st Contact Info) Description 04/27/2024 11:00 AM EDT PulmDiagnostic Pulmonary Function Lab, [facility] [address] [place] [address] West, [address] [place] [address] 05/01/2024 8:30 AM EDT Imaging [facility] 2nd Floor Cardiology, [place] [address] [place] [phone] Gw, Excess Time Radiology 132 [place] [address] 05/08/2024 9:00 AM EDT Office Visit Transplant Clinic, [place] [address] [place] [address] Lydia Cavazos MD [address] [place] [address] Zenon Tierney MD [address] [place] [address] Nurse Isabel [facility] [address] [place] [address] Noni Peters, MADI [address] [place] [address] 05/08/2024 1:00 PM EDT Appointment Vascular Lab [facility], [place] [address] [place] [address] 05/08/2024 1:30 PM EDT Laboratory Outpatient Laboratory, [place] [address] [place] [phone] [facility] B[facility] [address] [place] [address] 05/08/2024 2:30 PM EDT Appointment Radiology, [address] [phone] 05/17/2024 7:15 AM EDT [facility] 132 [facility] [place] [address] 05/19/2024 9:30 AM EDT Office Visit Urology Hari Roth [address] [place] [address] Marie Tran PA-C [address] [place] [address] 05/19/2024 6:10 PM EDT [facility] 132 [facility] [place] [address] [facility] [address] [place] [address] 05/23/2024 10:20 AM EDT Office Visit NephrologyMadeline [address] [place] [address] Tesfaye Morris MD [address] [place] [address] 06/12/2024 9:30 AM EDT Office Visit [facility], [facility] [place] [place] [address] Erna Srivastava CRNP [address] [place] [address] 09/19/2024 3:30 PM EST Office Visit Cardiology, [facility] 132 [facility] [place] [address] Davy Mota MD [address] [place] [address] 10/13/2024 9:00 AM EST Office [facility] [place] [address] Antonio Colon MD [address] [facility] [place] [address] Scheduled Procedures Name Priority Associated Diagnoses Date/Ti [...] Healthcare Agent Relationshi p Communication Lorin Silvestre [facility] Care Repr esentative (appointed verbally by patient or by statute hierarchy) Care Teams Airplane Refueler Relationship Specialty Start Date End Date Antonio Colon MD [address] [place] [address] PCP - General Family Medicine 02/12/22 documented as of this encounter
--- OUTSIDE RECORDS SUMMARY | 2024-09-21 08:10 | External Medical Summary ---
Author Name Unknown Address Unknown Organization K0G:[facility] [place] [address] Laboratory Report Ordering Provider Test Date Status STEVE WOLF 04/11/2024 10:37:47 Final Observation Date Value Abnormality Reference (Units ) Status RBC, Urine 04/11/2024 10:37:47 0-2 0-2 (/HPF) Final WBC, Urine 04/11/2024 10:37:47 0-2 0-2 (/HPF) Final Bacteria [#/area] in Urine sediment by Microscopy high power field 04/11/2024 10:37:47 0-25 0-25 (/HPF) Final Performing Location [facility] - [address] [place] [address]
--- OUTSIDE RECORDS SUMMARY | 2024-09-21 08:10 | External Medical Summary | Summary of Care ---
Author Name Unknown Organization [facility] Address [address] [place] [address] Phone [phone] Care Team Providers Care Supervisor Color Making Name Role Phone Antonio Colon MD Primary Care Provider [phone] Reason for Visit * Reason Comments Pulmonary Function Test PFT with broncho dilator Encounter Details Date Type Department Care Team (Latest Contact Info) Description 04/27/2024 11:00 AM EDT PulmDiagnostic Pulmonary Function Lab, [facility] [address] [facility] [place] [address] [place], [address] [facility] [place] [address] Type 2 diabetes mellitus with hemoglobin A1c goal of less than 8.0% ([facility])*; ESRD on dialysis ([facility]); Pre-transplant evaluation for ESRD (end stage renal disease) Allergies No known active allergiesdocumented as of this encounter (statuses as of 04/27/2024) Medications Medication Sig Dispensed Refills Start Date [...] Hour (toPROL XL)Indications:Bayron nary artery disease involving [place] coronary artery of [place] heart without angina pectoris TAKE 1 TABLET BY MOUTH EVERY DAY IN THE MORNING 90 Tablet 3 10/05/2023 Active Prasugrel HCl 10 MG Oral Tablet (Effient)Indication s:Coronary artery disease involving [place] coronary artery of [place] heart without angina pectoris TAKE 1 TABLET BY MOUTH EVERY DAY IN THE MORNING 90 Tablet 3 10/05/2023 Active Atorvastatin Calcium 40 MG Oral Tablet (Lipitor)Indication s:Dyslipidemia, goal LDL below 70 TAKE 1 TABLET BY MOUTH EVERY DAY IN THE MORNING 90 Tablet 3 10/06/2023 Active Juluca 50-25 MG Oral Tablet Take 1 Tablet by mouth daily. 90 Tablet 3 12/01/2023 Active Pen [place] 32G X 4 MM Use as directed. [...] Tablet 3 03/24/2024 Active FreeStyle Carlos 2 Rillito DeviceIndications:T ype 2 diabetes mellitus with hemoglobin A1c goal of less than 8.0% ([facility]) Use as directed. Use to test BG E10.65 1 Each 04/11/2024 Active FreeStyle Carlos 2 SensorIndications:T ype 2 diabetes mellitus with hemoglobin A1c goal of less than 8.0% ([facility]) Use as directed. Use one sensor every 14 days for blood sugar E10.65 1 Each 11 04/11/2024 Active Fiasp FlexTouch 100 UNIT/ML Subcutaneous Solution Pen-injector (Insulin Aspart (w/Niacinamide))Ind ications:Type 2 diabetes mellitus with hemoglobin A1c goal of less than 8.0% ([facility]) Inject 10 Units under the skin in the morning and 10 Units at noon and 10 Units before bedtime. With meals. 15 mL 3 04/26/2024 Active Hospital, Clinic, or Other Facility Administered Medication Ordered Dose Route Frequency Start Date End Date Status Albuterol Sulfate (Proventil) (2.5 MG/3ML) 0.083% inhalation solution 2.5 mgIndications:ESRD on dialysis ([facility]),Pre-transplant evaluation for ESRD (end stage renal disease) 2.5 mg NEBULIZER PRN 03/24/2024 Acti ve Albuterol Sulfate (Proventil) (5 MG/ML) 0.5% *conc* inhalation solution 2.5 mgIndications:ESRD on dialysis ([facility]),Pre-transplant evaluation for ESRD (end stage renal disease) 2.5 mg NEBULIZER PRN 03/24/2024 Acti ve documented as of this encounter (statuses as of 04/27/2024) Active Problems Problem Noted Date Diagnosed Date ESRD on dialysis 02/02/2024 History of GI bleed 02/02/2024 Overview: Duodenal ulcer Duodenal ulcer 02/02/2024 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 05/07/2023 Recurrent major depressive disorder, in full rem ission 05/05/2022 Overweight (BMI 25.0-29.9) 05/02/2022 Dyslipidemia 05/02/2022 Coronary artery disease invo lving [place] coronary artery of [place] heart without angina pectoris 05/02/2022 Type 2 diabetes mellitus wit h hemoglobin A1c goal of less than 8.0% 05/02/2022 Old MT (myocardial infarction) 05/02/2022 Chronic systolic (congestive) heart failure 04/14 Left bundle branch block 05/02/2022 HTN, goal below 130/80 HIV positive documented as of this encounter (statuses as of 04/27/2024) Resolved Problems Problem Noted Date Diagnosed Date Resolved Date Chronic heart failure with p reserved ejection fraction 11/24/2022 02/04/2023 Kidney disease, chronic, sta ge IV (GFR 15-29 ml/min) 05/02/2022 02/02/2024 ARDS (adult respiratory distress syndrome) 06/17/2012 05/02/2022 Acute pancreatitis 06/14/2012 Acute respiratory distress 06/14/2012 0 05/02/2022 documented as of this encounter (statuses as of 04/27/2024) Immunizations Name Administration Dates Next Due COVID-19 mRNA, LNP-s, No Pre serve, 2-Dose Series ([employer]a) 11/27/2020,10/24/2020 COVID-19, MRNA-LNP, 23-24, P F, 50 MCG/0.5 mL, 12 YRS AND ABOVE, IM (MODERNA-Spikevax) 08/05/2021 Covid-19, Mrna, Lnp-s, Pf, B ivalent, 30 Mcg, IM, 12 yrs and above ([employer]) 09/09/2022 Hepatitis B, 20+ yrs 08/25/2017 Meningococcal [...] - Inhaled Oxygen Concentration - - Weight 75.1 kg (165 lb 9.1 oz) 04/27/2024 11:15 AM EDT Height 174 cm (5' 8.5") 04/27/2024 11:15 AM EDT Body Mass Index 24.81 04/27/2024 11:15 AM EDT documented in this encounter Nursing Notes * Rosendo Roldan RRT - 04/27/2024 11:16 AM EDT Tad Silvestre was identified by name, Date of : (1955), and . Vitals were obtained for testing. Body mass index is 24.81 kg/m. Pt has a .25 ppd for 30 years smoking history and quit 20.6 years ago. 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 Spirometry, DLCO, RAW, and TGV performed. A slow volume nebulizer treatment of 0.5ml of albuterol in 3 ml of NSS was given. The proper method of use, as well as anticipated side effects, of this svn are discussed and demonstrated to the patient. Patient demonstrates adequate delivery. Administrations This Visit Albuterol Sulfate (Proventil) (5 MG/ML) 0.5% *conc* inhalation solution 2.5 mg Admin Date 04/27/2024 Action Given Dose 2.5 mg Route Nebulizer Documented By Rosendo Roldan RRT documented in this encounter Plan of Treatment Upcoming Encounters Date Type Department Care Team (Late st Contact Info) Description 05/01/2024 8:30 AM EDT Imaging [facility] 2nd Floor Cardiology, [address] [place] [address] Gw, Excess Time Radiology 132 [facility] [place], [place] [address] 05/02/2024 1:00 PM EDT Imaging Vascular Lab, [facility] 2nd Floor, [address] [place] [address] 05/03/2024 10:10 AM EDT Office Visit Vascular Surgery, [address] [place] [address] Benjamin Cartagena MD [address] [place] [address] 05/08/2024 9:00 AM EDT Office Visit Transplant Clinic, [address] [address] Lydia Cavazos MD [address] [place] [address] Zenon Tierney MD [address] [place] [address] Nurse Isabel [facility] Transplant [address] [place] [address] Noni Peters, [employer]ATION IN[employer]ATION SUPERVISOR [address] [place] [address] 05/08/2024 1:00 PM EDT Appointment Vascular Lab [facility] [place] [address] [place], [place] [phone] 05/08/2024 1:30 PM EDT Laboratory Outpatient Laboratory, [address] [phone] [place] [facility] [address] [place], [place] [phone] 05/08/2024 2:30 PM EDT Appointment Radiology, [address] [phone] 05/17/2024 7:15 AM EDT Cardiac Studies Cardiac Studies, [facility] 132 [facility] [place] [address] 05/19/2024 9:30 AM EDT Office Visit Urology Sarita PeñalozaHari [address] [place] [address] Marie Tran PA-C [address] [place] [address] 05/19/2024 6:10 PM EDT Pharmacy Pharmacy, [facility] 132 [facility] [place] [address] [facility] 132 [facility] [place] [address] 05/23/2024 10:20 AM EDT Office Visit Nephrology, [facility] 200 [facility] [place] [address] Tesfaye Morrsi MD 200 [facility] [place] [address] 06/12/2024 9:30 AM EDT Office Visit Gastroenterology, [facility] 132 [facility] [place] [address] Erna Srivastava CRNP 132 [facility] [place] [address] 09/19/2024 3:30 PM EST Office Visit Cardiology, [facility] 132 [facility] [place] [address] Davy Mota MD 132 [facility] [place] [address] 10/13/2024 9:00 AM EST Office Visit Family Practice [facility] 132 [facility] [place] [address] Antonio Colon MD [address] [place] [address] Pending Results Name Type Priority Associated Diagnoses Date /Time SPIROMETRY B/A BRONCHODILATOR Procedures Routine Type 2 diabetes mellitus with hemoglobin A1c goal of less than 8.0% (HCC) ESRD on dialysis (HCC) Pre-transplant evaluation for ESRD (end stage renal disease) 04/27/2024 11:09 AM EDT LUNG VOLUMES (PLETHYSMOGRAPHY) Procedures Routine Type 2 diabetes mellitus with hemoglobin A1c goal of less than 8.0% (HCC) ESRD on dialysis (HCC) Pre-transplant evaluation for ESRD (end stage renal disease) 04/27/2024 11:09 AM EDT DIFFUSION CAPACITY (DLCO) Procedures Routine Type 2 diabetes mellitus with hemoglobin A1c goal of less than 8.0% (HCC) ESRD on dialysis (HCC) Pre-transplant evaluation for ESRD (end stage renal disease) 04/27/2024 11:09 AM EDT Scheduled Procedures Name Priority Associated [...] Procedure Name Priority Date/Time Associated Diagnosis Comments DIFFUSION CAPACITY (DLCO) Routine 2023 11:09 AM EDT Type 2 diabetes mellitus with hemoglobin A1c goal of less than 8.0% (HCC) ESRD on dialysis (HCC) Pre-transplant evaluation for ESRD (end stage renal disease) LUNG VOLUMES (PLETHYSMOGRAPHY) Routine 04/27/2024 11:09 AM EDT Type 2 diabetes mellitus with hemoglobin A1c goal of less than 8.0% (HCC) ESRD on dialysis (HCC) Pre-transplant evaluation for ESRD (end stage renal disease) SPIROMETRY B/A BRONCHODILATOR Routine 04/27/2024 11:09 AM EDT Type 2 diabetes mellitus with hemoglobin A1c goal of less than 8.0% (HCC) ESRD on dialysis (HCC) Pre-transplant evaluation for ESRD (end stage renal disease) documented in this encounter Visit Diagnoses Diagnosis Type 2 diabetes mellitus with hemoglobin A1c goal of less than 8.0% (HCC)- Primary ESRD on dialysis (HCC) End stage renal disease Pre-transplant evaluation for ESRD (end stage renal disease) Other specified pre-operative examination documented in this encounter Administered Medications Active Administered Medications - up to 3 most recent administrations Medication Order MAR Action Action Date Dose Rate Site Albuterol Sulfate (Proventil) (5 MG/ML) 0.5% *conc* inhalation solution 2.5 mg 2.5 mg, Nebulizer, PRN Other, Starting on Wed03/24/24 at 1247, Until Discontinued, Only one type of albuterol product should be administered (Nebulizer or Inhaler). Please select and document on the appropriate albuterol product order. *Dilute with 0.9% saline IF needed Given 04/27/2024 11:08 AM EDT 2.5 mg documented in this encounter Advance Directives * Full Code (Latest Code Status on File) Date Activated Date Inactivated Comments 06/14/2012 6:26 PM 06/17/2012 7:43 PM This order r eflects the patients wishes and were consensually agreed upon. Healthcare Agents on File Name Relationship Healthcare Agent Relationshi p Communication Lorin Silvestre [facility] Health Care Repr esentative (appointed verbally by patient or by statute hierarchy) Care Teams Supervisor Color Making Relationship Specialty Start Date End Date Antonio Colon MD [address] [place] [address] PCP - General Family Medicine 02/12/22 documented as of this encounter
--- OUTSIDE RECORDS SUMMARY | 2024-09-21 08:10 | External Medical Summary ---
Author Name Unknown Address Unknown Organization K01:[facility] [place] [address] [place] [address] Laboratory Report Ordering Provider Test Date Status STEVE WOLF 04/11/2024 10:37:47 Final Normal: <150 mg/ g creatinine
High: 150-500 mg/g creatinine
Very High: >500 mg/g creatinine
Nephrotic: >3000 mg/g creatinine Observation Date Value Abnormality Reference (Units ) Status Protein/Creatinine [Ratio] in Urine 04/11/2024 10:37:47 1981 Above high normal <150 (mg/g ) Final Protein, Urine 04/11/2024 10:37:47 107 (mg/dL) Final Creatinine, Urine 04/11/2024 10:37:47 54 (mg/dL) Final Performing Location [facility] [place] [address] [place] [address]
--- OUTSIDE RECORDS SUMMARY | 2024-09-21 08:10 | External Medical Summary | Summary of Care ---
Author Name Unknown Organization [facility] Address [address] [place] [address] Phone [phone] Care Team Providers Care Networking Engineer Name Role Phone Antonio Colon MD Primary Care Provider [phone] Reason for Visit * Reason Onset Date Comments TRIAGE 04/13/2024 Encounter Details Date Type Department Care Team (Late st Contact Info) Description 04/13/2024 Telephone Vascular Surg [facility] [address] [place], [place] [id number] Services, Scheduling [address] [place] [address] TRIAGE Allergies No known active allergiesdocumented as of this encounter (statuses as of 04/24/2024) Medications Medication Sig Dispensed Refills Start Date [...] Hour (toPROL XL)Indications:Bayron nary artery disease involving [place] coronary artery of [place] heart without angina pectoris TAKE 1 TABLET BY MOUTH EVERY DAY IN THE MORNING 90 Tablet 3 10/05/2023 Active Prasugrel HCl 10 MG Oral Tablet (Effient)Indication s:Coronary artery disease involving [place] coronary artery of [place] heart without angina pectoris TAKE 1 TABLET BY MOUTH EVERY DAY IN THE MORNING 90 Tablet 3 10/05/2023 Active Atorvastatin Calcium 40 MG Oral Tablet (Lipitor)Indication s:Dyslipidemia, goal LDL below 70 TAKE 1 TABLET BY MOUTH EVERY DAY IN THE MORNING 90 Tablet 3 10/06/2023 Active Juluca 50-25 MG Oral Tablet Take 1 Tablet by mouth daily. 90 Tablet 3 12/01/2023 Active Pen Elcho 32G X 4 MM Use as directed. [...] less than 8.0% ([facility]) Inject 10 Units under the [...] Tablet 3 03/24/2024 Active FreeStyle Carlos 2 [place] DeviceIndications:T ype 2 diabetes mellitus with hemoglobin A1c goal of less than 8.0% ([facility]) Use as directed. Use to test BG E10.65 1 Each 04/11/2024 Active FreeStyle Carlos 2 SensorIndications:T ype 2 diabetes mellitus with hemoglobin A1c goal of less than 8.0% ([facility]) Use as directed. 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 05/07/2023 Recurrent major depressive disorder, in full rem ission 05/05/2022 Overweight (BMI 25.0-29.9) 05/02/2022 Dyslipidemia 05/02/2022 Coronary artery disease invo lving [place] coronary artery of [place] heart without angina pectoris 05/02/2022 Type 2 diabetes mellitus wit h hemoglobin A1c goal of less than 8.0% 05/02/2022 Old [place] (myocardial infarction) 05/02/2022 Chronic systolic (congestive) heart failure 04/14 Left bundle branch block 05/02/2022 HTN, goal below 130/80 HIV positive documented as of this encounter (statuses as of 04/24/2024) Resolved Problems Problem Noted Date Diagnosed Date Resolved Date Chronic heart failure with p reserved ejection fraction 11/24/2022 02/04/2023 Kidney disease, chronic, sta ge IV (GFR 15-29 ml/min) 05/02/2022 02/02/2024 ARDS (adult respiratory distress syndrome) 06/17/2012 05/02/2022 Acute pancreatitis 06/14/2012 Acute respiratory distress 06/14/2012 0 05/02/2022 documented as of this encounter (statuses as of 04/24/2024) Immunizations Name Administration Dates Next Due COVID-19 mRNA, LNP-s, No Pre serve, 2-Dose Series (Moderna) 11/27/2020,10/24/2020 COVID-19, MRNA-LNP, 23-24, P F, 50 MCG/0.5 mL, 12 YRS AND ABOVE, IM (MODERNA-Spikevax) 08/05/2021 Covid-19, Mrna, Lnp-s, Pf, B ivalent, 30 Mcg, IM, 12 yrs and above ([employer]) 09/09/2022 Hepatitis B, 20+ yrs 08/25/2017 Meningococcal [...] encounter Miscellaneous Notes * Telephone Encounter - Deangelo Burdick OSA - 04/24/2024 5:53 PM EDT Spoke to pt inbound and scheduled for study 05/[address] Cartagena 05/03 GW MORGAN [place] * Telephone Encounter - Emma Perez OSA - 04/18/2024 8:38 AM EDT Attempts were made by Mellissa in scheduling to schedule study and clinic appt, we sent letter, pt never responded * Telephone Encounter - Librado [place] PA-C - 04/13/2024 3:23 PM EDT Order has already been placed for pre op dialysis access duplex We can see pt at [facility], if pt wants as he lives in [place] Please get duplex prior to visit Thank you Librado * Telephone Encounter - Emma Perez OSA - 04/13/2024 3:13 PM EDT Referral scanned, please advise if any studies need to be scheduled w/ clinic visit documented in this encounter Plan of Treatment Upcoming Encounters Date Type Department Care Team (Late st Contact Info) Description 04/27/2024 11:00 AM EDT PulmDiagnostic Pulmonary Function Lab, [facility] [address] [address] [address], [address] [place] [address] 05/01/2024 8:30 AM EDT Imaging [facility] 2nd Floor Cardiology, [place] [address] [place] [phone] Gw, Excess Time Radiology 132 [facility] [place], [place] [address] 05/02/2024 1:00 PM EDT Imaging Vascular Lab, [facility] [address] [place] [address] 05/03/2024 10:10 AM EDT Office Visit Vascular Surgery, [facility] 132 [facility] [place], [place] [address] Benjamin Cartagena MD [address] [place] [address] 05/08/2024 9:00 AM EDT Office Visit Transplant Clinic, [place] [address] [place] [address] Lydia Cavazos MD [address] [place] [address] Zenon Tierney MD [address] [place] [address] Nurse Isabel Renal Transplant [address] [place] [address] Noni Peters LSW [address] [place] [address] 05/08/2024 1:00 PM EDT Appointment Vascular Lab [facility], [place] [address] [place] [address] 05/08/2024 1:30 PM EDT Laboratory Outpatient Laboratory, [place] [address] [place] [phone] [place] Lab B1a [address] [place], [place] [phone] 05/08/2024 2:30 PM EDT Appointment Radiology, [address] [phone] 05/17/2024 7:15 AM EDT Cardiac Studies Cardiac Studies, [facility] 132 [facility] [place] [address] 05/19/2024 9:30 AM EDT Office Visit Urology [place] Pe[place] [address] [place] [address] Marie Tran PA-C [address] [place] [address] 05/19/2024 6:10 PM EDT Pharmacy Pharmacy, [facility] 132 [facility] [place] [address] [facility] [place] [address] 05/23/2024 10:20 AM EDT Office Visit Nephrology, [facility] 200 [facility] [place] [address] Tesfaye Morris MD 200 [facility] [place] [address] 06/12/2024 9:30 AM EDT Office Visit Gastroenterology, [facility] 132 [facility] [place] [address] Erna Srivastava CRNP 132 [facility] [place] [address] 09/19/2024 3:30 PM EST Office Visit Cardiology, [facility] 132 [facility] [place] [address] Davy Mota MD 132 [facility] [place] [address] 10/13/2024 9:00 AM EST Office Visit Family Practice [facility] 132 [facility] [place] [address] Antonio Colon MD [address] [place] [address] Scheduled Procedures Name Priority Associated Diagnoses Date/Ti [...] Agent Relationshi p Communication Lorin Silvestre [facility] Care Repr esentative (appointed verbally by patient or by statute hierarchy) Care Teams Networking Engineer Relationship Specialty Start Date End Date Antonio Colon MD 132 [facility] [place] [address] PCP - General Family Medicine 02/12/22 documented as of this encounter
--- OUTSIDE RECORDS SUMMARY | 2024-09-21 08:10 | External Medical Summary | Summary of Care ---
Author Name Unknown Organization [facility] Address [address] [place] [address] Phone [phone] Care Team Providers Care Plant Maintenance Supervisor Name Role Phone Antonio Colon MD Primary Care Provider [phone] Reason for Visit * Reason Comments Physical-Exam Encounter Details Date Type Department Care Team (Late st Contact Info) Description 04/11/2024 9:20 AM EDT Office Visit [facility] [address] [place] [address] Antonio Colon MD [address] [place] [address] Type 2 diabetes mellitus with hemoglobin A1c goal of less than 8.0% ([facility])*; Dyslipidemia; Old [place] (myocardial infarction); HTN, goal below 130/80; Coronary artery disease involving [place] coronary artery of [place] heart without angina pectoris; Chronic systolic (congestive) heart failure (HCC); ESRD on dialysis ([facility]); Recurrent major depressive disorder, in full remission ([facility]); HIV positive ([facility]) Allergies No known active allergiesdocumented [...] 15-29 ml/min ([facility]) TAKE 1 CAPSULE (0.5 MCG) BY MOUTH IN THE MORNING. 90 Capsule 5 09/15/2023 Active Metoprolol Succinate ER 25 MG Oral Tablet Extended Release 24 Hour (toPROL XL)Indications:Cor onary artery disease involving [place] coronary artery of [place] heart without angina pectoris TAKE 1 TABLET BY MOUTH EVERY DAY IN THE MORNING 90 Tablet 3 10/05/2023 Active Prasugrel HCl 10 MG Oral Tablet (Effient)Indicatio ns:Coronary artery disease involving [place] coronary artery of [place] heart without angina pectoris TAKE 1 TABLET BY MOUTH EVERY DAY IN THE MORNING 90 Tablet 3 10/05/2023 Active Atorvastatin Calcium 40 MG Oral Tablet (Lipitor)Indicatio ns:Dyslipidemia, goal LDL below 70 TAKE 1 TABLET BY MOUTH EVERY DAY IN THE MORNING 90 Tablet 3 10/06/2023 Active Juluca 50-25 MG Oral Tablet Take 1 Tablet by mouth daily. 90 Tablet 3 12/01/2023 Active Pen Moody 32G X 4 MM Use as directed. [...] goal of less than 8.0% ([facility]) Inject 10 Units under the [...] Tablet 3 03/24/2024 Active FreeStyle Carlos 2 [place] DeviceIndications: Type 2 diabetes mellitus with hemoglobin A1c goal of less than 8.0% ([facility]) Use as directed. Use to test BG E10.65 1 Each 04/11/2024 Active FreeStyle Carlos 2 SensorIndications: Type 2 diabetes mellitus with hemoglobin A1c goal of less than 8.0% ([facility]) Use as directed. Use one sensor every 14 days for blood sugar E10.65 1 Each 04/11/2024 Active FreeStyle Carlos 2 [place] Device Use as directed . Use to test BG E10.65 1 Each 02/13/2022 4 Discontinue d(Refill) FreeStyle Carlos 2 Sensor Use as directed . Use one sensor every 14 days for blood sugar E10.65 1 Each 11 02/13/2022 4 Discontinue d(Refill) Hospital, Clinic, or Other Facility Administered Medication Ordered Dose Route Frequency Start Date End Date Status Albuterol Sulfate (Proventil) (2.5 MG/3ML) 0.083% inhalation solution 2.5 mgIndications:ESRD on dialysis ([facility]),Pre-transplant evaluation for ESRD (end stage renal disease) 2.5 mg NEBULIZER PRN 03/24/2024 Acti ve Albuterol Sulfate (Proventil) (5 MG/ML) 0.5% *conc* inhalation solution 2.5 mgIndications:ESRD on dialysis ([facility]),Pre-transplant evaluation for ESRD (end stage [...] Dyslipidemia 05/02/2022 Coronary artery disease invo lving [place] coronary artery of [place] heart without angina pectoris 05/02/2022 Type 2 [...] 30 Mcg, IM, 12 yrs and above ([employer]) 09/09/2022 Hepatitis B, 20+ yrs 08/25/2017 Meningococcal [...] Sign Reading Time Taken Comments Blood Pressure 108/64 04/11/2024 9:39 AM EDT Pulse 76 04/11/2024 9:39 AM EDT Temperature 35.9 C (96.7 F) 04/11/2024 9:39 AM ED T Respiratory Rate 18 04/11/2024 9:39 AM EDT Oxygen Saturation - - Inhaled Oxygen Concentration - - Weight 74.8 kg (165 lb) 04/11/2024 9:39 AM EDT Height 175.3 cm (5' 9") 04/11/2024 9:39 AM EDT Body Mass Index 24.37 04/11/2024 9:39 AM EDT documented in this encounter Progress Notes * Antonio Colon MD - 04/11/2024 12:52 PM EDT SUBJECTIVE: Tad Silvestre is a 69 year old male. Chief Complaint Patient presents with Physical-Exam HPI: Allan is a medically complex but stable 69 year old male here for a routine follow up visit. He sees many specialists. He is awaiting a kidney transplant. He is scheduled for his AVF for dialysis. He feels generally well in spite of his multiple medical issues. 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 90 Tablet 3 Fiasp FlexTouch 100 UNIT/ML Subcutaneous Solution Pen-injector (Insulin Aspart (w/Niacinamide)) Inject 10 Units under the skin in the morning and 10 Units at noon and 10 Units before bedtime. With meals. 15 mL 3 Sevelamer Carbonate 800 MG Oral Tablet [...] morning. 90 Tablet 3 FreeStyle Carlos 2 [place] Device Use as directed. Use to test BG E10.65 1 Each 0 FreeStyle Carlos 2 Sensor Use as directed. Use one sensor every 14 days for blood sugar E10.65 1 Each 11 Pen Moody 32G X 4 MM Use as directed. [...] solution 2.5 mg 2.5 mg Nebulizer PRN Allergy: Review of patient's allergies indicates: No Known Allergies OBJECTIVE: BP 108/64 | Pulse 76 | Temp 35.9 C (96.7 F) (Tympanic) | Resp 18 | Ht 1.753 m (5' 9") | Wt 74.8kg (165 lb) | BMI 24.37 kg/m | BSA 1.91 m Gen: aao x 3, nad Lungs: ctab Heart: rrr, no mrg Ext: no c/c/e Skin: no lesions ASSESSMENT AND PLAN: (E11.9) Type 2 diabetes mellitus with hemoglobin A1c goal of less than 8.0% (HCC) (primary encounter diagnosis) Plan: FreeStyle Carlos 2 [place] Device, FreeStyle Carlos 2 Sensor -continue present mgmt (E78.5) Dyslipidemia Plan: stable (I25.2) Old [place] (myocardial infarction) Plan: continue rx (I10) HTN, goal below 130/80 Plan: stable (I25.10) Coronary artery disease involving [place] coronary artery of [place] heart without angina pectoris Plan: stable (I50.22) Chronic systolic (congestive) heart failure (HCC) Plan: stable (N18.6, Z99.2) ESRD on dialysis (HCC) Plan: on transplant list (F33.42) Recurrent major depressive disorder, in full remission (HCC) Plan: stable (Z21) HIV positive (HCC) Plan: follows with ID Follow up as needed. No other complaints were offered at this time. Antonio Colon MD documented in this encounter Nursing Notes * Sydni Mendes LPN - 04/11/2024 9:39 AM EDT The patient has been properly identified by confirmation of name and date of . Chief Complaint Patient presents with Physical-Exam documented in this encounter Plan of Treatment Upcoming Encounters Date Type Department Care Team (Late st Contact Info) Description 04/20/2024 6:10 PM EDT Pharmacy Pharmacy, [facility] [address] [place] [address] [place] [address] [address] [place] [address] 04/27/2024 11:00 AM EDT PulmDiagnostic Pulmonary Function Lab, [facility] [address] [place] [address] [address], [address] [place] [address] 05/01/2024 8:30 AM EDT Imaging [facility] 2nd Floor Cardiology, [place] [address] [place] [place] [phone] Gw, Excess Time Radiology [address] [place] [address] 05/08/2024 9:00 AM EDT [facility] [address] [place] [address] Lydia Cavazos MD [address] [place] [address] Zenon Tierney MD [address] [place] [address] Nurse Isabel Renal Transplant [address] [place] [address] Noni Peters LSW [address] [place] [address] 05/08/2024 1:00 PM EDT Appointment Vascular Lab [facility] Medicine, [place] [address] [place] [address] 05/08/2024 1:30 PM EDT Laboratory Outpatient Laboratory, [place] [address] [place] [phone] [place], Lab B1a [address] [place], [place] [phone] 05/08/2024 2:30 PM EDT Appointment Radiology, [place] [address] [place] [phone] 05/17/2024 7:15 AM EDT Cardiac Studies Cardiac Studies, [facility] [address] [facility] [place] [address] 05/19/2024 9:30 AM EDT Office Visit Urology Hari Roth [address] [place] [address] Marie Tran PA-C [address] [place] [address] 05/23/2024 10:20 AM EDT Office Visit NephrologyMadeline [address] [place] [address] Tesfaye Morris MD [address] [place] [address] 06/12/2024 9:30 AM EDT Office Visit Gastroenterology, [facility] [place] [place] [address] Erna Srivastava CRNP [facility] [place] [address] 09/19/2024 3:30 PM EST Office Visit Cardiology, [facility] 132 [facility] [place] [address] Davy Mota MD [address] [place] [address] 10/13/2024 9:00 AM EST Office Visit Family Practice [facility] [place] [address] Antonio Colon MD 132 [facility] [place] [address] Scheduled Procedures Name Priority Associated Diagnoses Date/Ti [...] goal of less than 8.0% (HCC)- Primary Dyslipidemia Other and unspecified hyperlipidemia Old [place] (myocardial infarction) Old myocardial infarction HTN, goal below 130/80 Unspecified essential hypertension Coronary artery disease involving [place] coronary artery of [place] heart without angina pectoris Chronic systolic (congestive) heart failure (HCC) ESRD on dialysis (HCC) End stage renal disease Recurrent major depressive disorder, in full remission (HCC) HIV positive (HCC) Asymptomatic human immunodeficiency virus (HIV) infection status documented in this encounter Advance Directives * Full Code (Latest Code Status on File) Date Activated Date Inactivated Comments 06/14/2012 6:26 PM 06/17/2012 7:43 PM This order r eflects the patients wishes and were consensually agreed upon. Healthcare Agents on File Name Relationship Healthcare Agent Relationshi p Communication Lorin Silvestre [facility] Health Care Repr esentative (appointed verbally by patient or by statute hierarchy) Care Teams Plant Maintenance Supervisor Relationship Specialty Start Date End Date Antonio Colon MD [address] [place] [address] PCP - General Family Medicine 02/12/22 documented as of this encounter
--- OUTSIDE RECORDS SUMMARY | 2024-09-21 08:11 | External Medical Summary ---
Author Name Unknown Address Unknown Organization : Laboratory Report Ordering Provider Test Date Status STEVE WOLF 04/11/2024 10:31:08 Final Observation Date Value Abnormality Reference (Units ) Status REFERENCE LAB SCANNED REPORT 04/11/2024 10:31:08 See Scanned Report Final Performing Location
--- OUTSIDE RECORDS SUMMARY | 2024-09-21 08:11 | External Medical Summary ---
Author Name Unknown Address Unknown Organization [id number]:[place] [facility] [facility] [place] [address] [place] [address] Laboratory Report Ordering Provider Test Date Status STEVE WOLF 04/11/2024 10:31:08 Final Observation Date Value Abnormality Reference (Units ) Status Hepatitis B virus core Ab [Presence] in Serum 04/11/2024 10:31:08 Positive Abnormal Negative Final Test results reported to [facility]. Performing Location [place] [facility] [place] [address] [place] [address]
--- OUTSIDE RECORDS SUMMARY | 2024-09-21 08:11 | External Medical Summary ---
Author Name Unknown Address Unknown Organization [id number]:[place] [facility] [place] [address] [facility] [address] Laboratory Report Ordering Provider Test Date Status STEVE WOLF 04/11/2024 10:31:08 Final Observation Date Value Abnormality Reference (Units ) Status Hep B surface Ag 04/11/2024 10:31:08 Negative Neg ative Final Performing Location [facility]ORY [facility] [address] [facility] [address]
--- OUTSIDE RECORDS SUMMARY | 2024-09-21 08:11 | External Medical Summary ---
Author Name Unknown Address Unknown Organization [id number] [address] [place] [address] Laboratory Report Ordering Provider Test Date Status STEVE WOLF 04/11/2024 10:31:08 Final Anticoagulation may affect t esting. Refer to [facility] Test Catalog for a list of effects. Observation Date Value Abnormality Reference (Units ) Status aPTT panel - Platelet poor plasma 04/11/2024 10:31:08 35 21-38 (seconds) Final Performing Location LABORATORY [facility] [place] [address] - [address] [place] [address]
--- OUTSIDE RECORDS SUMMARY | 2024-09-21 08:11 | External Medical Summary ---
Author Name Unknown Address Unknown Organization [id number]:LABORATORY [facility] - [address] [place] [address] Laboratory Report Ordering Provider Test Date Status STEVE WOLF 04/11/2024 10:35:29 Final Observation Date Value Abnormality Reference (Units ) Status ABO 04/11/2024 10:35:29 A Final RH 04/11/2024 10:35:29 Positive Final Performing Location LAB[facility]ORY [facility] - [address] [place] [address]
--- OUTSIDE RECORDS SUMMARY | 2024-09-21 08:11 | External Medical Summary | Summary of Care ---
Author Name Unknown Organization [facility] Address [address] [place] [address] Phone [phone] Care Team Providers Care Combat Systems Officer Name Role Phone Antonio Colon MD Primary Care Provider [phone] Reason for Visit * Reason Onset Date Comments TRIAGE 04/05/2024 3 day Encounter Details Date Type Department Care Team (Late st Contact Info) Description 04/05/2024 Telephone Access Center, [place] [address] [facility] *DO NOT REMOVE THIS DEPARTMENT* [place] [address] Services, Scheduling [address] [place] [address] TRIAGE (3 day) Allergies No known active allergiesdocumented as of this encounter (statuses as of 04/07/2024) Medications Medication Sig Dispensed Refills Start Date End Date Status Co Q 10 10 MG Oral Capsule Take by mouth 1 Caplet Dosing Unit daily . Active Aspirin 81 MG Oral Capsule Take by mouth 1 Caplet Dosing Unit daily . Active Multi-Day Oral Tablet Take by mouth 1 Tablet in the morning. Active FreeStyle Carlos 2 [place] Device Use as directed . Use to test BG E10.65 1 Each 02/13/2022 Active FreeStyle Carlos 2 Sensor Use [...] kidney disease) stage 4, GFR 15-29 ml/min ([facility]) TAKE 1 CAPSULE (0.5 MCG) BY MOUTH IN THE MORNING. 90 Capsule 5 09/15/2023 Active Metoprolol Succinate ER 25 MG Oral Tablet Extended Release 24 Hour (toPROL XL)Indications:Bayron nary artery disease involving [place] coronary artery of [place] heart without angina pectoris TAKE 1 TABLET BY MOUTH EVERY DAY IN THE MORNING 90 Tablet 3 10/05/2023 Active Prasugrel HCl 10 MG Oral Tablet (Effient)Indication s:Coronary artery disease involving [place] coronary artery of [place] heart without angina pectoris TAKE 1 TABLET BY MOUTH EVERY DAY IN THE MORNING 90 Tablet 3 10/05/2023 Active Atorvastatin Calcium 40 MG Oral Tablet (Lipitor)Indication s:Dyslipidemia, goal LDL below 70 TAKE 1 TABLET BY MOUTH EVERY DAY IN THE MORNING 90 Tablet 3 10/06/2023 Active Juluca 50-25 MG Oral Tablet Take 1 Tablet by mouth daily. 90 Tablet 3 12/01/2023 Active Pen [place] 32G X 4 MM Use as directed. [...] 8.0% ([facility]) Inject 10 Units under the skin in [...] the morning. 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 05/07/2023 Recurrent major depressive disorder, in full rem ission 05/05/2022 Overweight (BMI 25.0-29.9) 05/02/2022 Dyslipidemia 05/02/2022 Coronary artery disease invo lving [place] coronary artery of [place] heart without angina pectoris 05/02/2022 Type 2 diabetes mellitus wit h hemoglobin A1c goal of less than 8.0% 05/02/2022 Old PR (myocardial infarction) 05/02/2022 Chronic systolic (congestive) heart failure 04/14 Left bundle branch block 05/02/2022 HTN, goal below 130/80 HIV positive documented as of this encounter (statuses as of 04/07/2024) Resolved Problems Problem Noted Date Diagnosed Date Resolved Date Chronic heart failure with p reserved ejection fraction 11/24/2022 02/04/2023 Kidney disease, chronic, sta ge IV (GFR 15-29 ml/min) 05/02/2022 02/02/2024 ARDS (adult respiratory distress syndrome) 06/17/2012 05/02/2022 Acute pancreatitis 06/14/2012 Acute respiratory distress 06/14/2012 0 05/02/2022 documented as of this encounter (statuses as of 04/07/2024) Immunizations Name Administration Dates Next Due COVID-19 mRNA, LNP-s, No Pre serve, 2-Dose Series (Moderna) 11/27/2020,10/24/2020 COVID-19, MRNA-LNP, 23-24, P F, 50 MCG/0.5 mL, 12 YRS AND ABOVE, IM (MODERNA-Spikevax) 08/05/2021 Covid-19, Mrna, Lnp-s, Pf, B ivalent, 30 Mcg, IM, 12 yrs and above ([facility]) 09/09/2022 Hepatitis B, 20+ yrs 08/25/2017 Meningococcal [...] encounter Miscellaneous Notes * Telephone Encounter - Emma Perez OSA - 04/07/2024 10:07 AM EDT Lvm for pt * Telephone Encounter - Emma Perez OSA - 2024 10:13 AM EDT Lvm for pt * Telephone Encounter - Yesenia Holloway PA-C - 04/05/2024 4:15 PM EDT Please schedule and match mapping. Thanks * Telephone Encounter - Deangelo Burdick OSA - 04/05/2024 4:07 PM EDT ESRD on dialysis 3 day ref Please triage MORGAN Eugene documented in this encounter Plan of Treatment Upcoming Encounters Date Type Department Care Team (Late st Contact Info) Description 04/11/2024 9:20 AM EDT Office Visit Family Practice [facility] [address] [address] Antonio Colon MD [address] [place] [address] 04/20/2024 6:10 PM EDT Pharmacy Pharmacy, [facility] [address] [address] [facility] [address] [address] 04/27/2024 11:00 AM EDT PulmDiagnostic Pulmonary Function Lab, [facility] [address] [address] West, [address] [address] 05/01/2024 8:30 AM EDT Imaging [facility] 2nd Floor Cardiology, [place] [address] [place] [address] Gw, Excess Time Radiology 132 [place] [address] 05/08/2024 9:00 AM EDT Office Visit Transplant Clinic, [place] [address] [place] [address] Lydia Cavazos MD [address] [place] [address] Zenon Tierney MD [address] [place] [address] Nurse Isabel Renal Transplant [address] [place] [address] Noni Peters LSW [address] [place] [address] 05/08/2024 1:00 PM EDT Appointment Vascular Lab [facility], [place] [address] [place] [address] 05/08/2024 1:30 PM EDT Laboratory Outpatient Laboratory, [place] [address] [place] [id number] [place], Lab B1a [facility] [place] [address] 05/08/2024 2:30 PM EDT Appointment Radiology, [address] [phone] 05/17/2024 7:15 AM EDT Cardiac Studies Cardiac Studies, [facility] [address] [place] [address] 05/19/2024 9:30 AM EDT Office Visit Urology Hari Roth [address] [place] [address] Marie Tran PA-C [address] [place] [address] 05/23/2024 10:20 AM EDT Office Visit Nephrology, [facility] [address] Tesfaye Morris MD [address] [facility] [place] [address] 06/12/2024 9:30 AM EDT Office Visit Gastroenterology, [facility] [address] [facility] [place] [place] [address] Erna Srivastava CRNP [address] [place] [address] 09/19/2024 3:30 PM EST Office Visit Cardiology, [facility] [address] [place] [address] Davy Mota MD [address] [place] [address] Scheduled Procedures Name Priority Associated Diagnoses Date/Ti [...] patient or by statute hierarchy) Care Teams Combat Systems Officer Relationship Specialty Start Date End Date Antonio Colon MD [address] [place] [place] [address] PCP - General Family Medicine 02/12/22 documented as of this encounter
--- OUTSIDE RECORDS SUMMARY | 2024-09-21 08:11 | External Medical Summary | Summary of Care ---
Author Name Unknown Organization [facility] Address [address] [place] [address] Phone [phone] Care Team Providers Care Sizing Sprayer Name Role Phone Antonio Colon MD Primary Care Provider [phone] Reason for Visit * Reason Onset Date Comments TRIAGE 04/05/2024 3 day Encounter Details Date Type Department Care Team (Late st Contact Info) Description 04/05/2024 Telephone Access Center, [place] [address] [facility] *DO NOT REMOVE THIS DEPARTMENT* [place] [address] Services, Scheduling [address] [place] [address] TRIAGE (3 day) Allergies No known active allergiesdocumented as of this encounter (statuses as of 2024) Medications Medication Sig Dispensed Refills Start Date End Date Status Co Q 10 10 MG Oral Capsule Take by mouth 1 Caplet Dosing Unit daily . Active Aspirin 81 MG Oral Capsule Take by mouth 1 Caplet Dosing Unit daily . Active Multi-Day Oral Tablet Take by mouth 1 Tablet in the morning. Active FreeStyle Carlos 2 [place] Device Use as directed . Use to [...] kidney disease) stage 4, GFR 15-29 ml/min ([facility]) TAKE 1 CAPSULE (0.5 MCG) BY MOUTH IN THE MORNING. 90 Capsule 5 09/15/2023 Active Metoprolol Succinate ER 25 MG Oral Tablet Extended Release 24 Hour (toPROL XL)Indications:Bayron nary artery disease involving [place] coronary artery of [place] heart without angina pectoris TAKE 1 TABLET BY MOUTH EVERY DAY IN THE MORNING 90 Tablet 3 10/05/2023 Active Prasugrel HCl 10 MG Oral Tablet (Effient)Indication s:Coronary artery disease involving [place] coronary artery of [place] heart without angina pectoris TAKE 1 TABLET BY MOUTH EVERY DAY IN THE MORNING 90 Tablet 3 10/05/2023 Active Atorvastatin Calcium 40 MG Oral Tablet (Lipitor)Indication s:Dyslipidemia, goal LDL below 70 TAKE 1 TABLET BY MOUTH EVERY DAY IN THE MORNING 90 Tablet 3 10/06/2023 Active Juluca 50-25 MG Oral Tablet Take 1 Tablet by mouth daily. 90 Tablet 3 12/01/2023 Active Pen [place] 32G X 4 MM Use as directed. 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 05/07/2023 Recurrent major depressive disorder, in full rem ission 05/05/2022 Overweight (BMI 25.0-29.9) 05/02/2022 Dyslipidemia 05/02/2022 Coronary artery disease invo lving [place] coronary artery of [place] heart without angina pectoris 05/02/2022 Type 2 diabetes mellitus wit h hemoglobin A1c goal of less than 8.0% 05/02/2022 Old CO (myocardial infarction) 05/02/2022 Chronic systolic (congestive) heart failure 04/14 Left bundle branch block 05/02/2022 HTN, goal below 130/80 HIV positive documented as of this encounter (statuses as of 2024) Resolved Problems Problem Noted Date Diagnosed Date Resolved Date Chronic heart failure with p reserved ejection fraction 11/24/2022 02/04/2023 Kidney disease, chronic, sta ge IV (GFR 15-29 ml/min) 05/02/2022 02/02/2024 ARDS (adult respiratory distress syndrome) 06/17/2012 05/02/2022 Acute pancreatitis 06/14/2012 Acute respiratory distress 06/14/2012 0 05/02/2022 documented as of this encounter (statuses as of 2024) Immunizations Name Administration Dates Next Due COVID-19 mRNA, LNP-s, No Pre serve, 2-Dose Series (Moderna) 11/27/2020,10/24/2020 COVID-19, MRNA-LNP, 23-24, P F, 50 MCG/0.5 mL, 12 YRS AND ABOVE, IM (MODERNA-Spikevax) 08/05/2021 Covid-19, Mrna, Lnp-s, Pf, B ivalent, 30 Mcg, IM, 12 yrs and above ([facility]) 09/09/2022 Hepatitis B, 20+ yrs 08/25/2017 Meningococcal [...] mapping. Thanks * Telephone Encounter - Deangelo Burdcik OSA - 04/05/2024 4:07 PM EDT ESRD on dialysis 3 day ref Please triage MORGAN Eugene documented in this encounter Plan of Treatment Upcoming Encounters Date Type Department Care Team (Late st Contact Info) Description 04/11/2024 9:20 AM EDT Office Visit Family Practice [facility] [address] [place] [place] [address] Antonio Colon MD [address] [place] [address] 04/20/2024 6:10 PM EDT Pharmacy Pharm[facility], [facility] [place] [address] [facility] [address] [place] [address] 04/27/2024 11:00 AM EDT PulmDiagnostic Pulmonary Function Lab, [facility] [address] [address] West, [address] [address] 05/01/2024 8:30 AM EDT Imaging [facility] 2nd Floor Cardiology, [place] [address] [phone] Gw, Excess Time Radiology 132 [facility] [place] [address] 05/08/2024 9:00 AM EDT Office Visit Transplant Clinic, [address] [address] Lydia Cavazos MD [facility] [place] [address] Zenon Tierney MD [facility] [place] [address] Nurse Isabel Renal Transplant [facility] [place] [address] Noni Peters LSW [facility] [place] [address] 05/08/2024 1:00 PM EDT Appointment Vascular Lab [facility], [address] [address] 05/08/2024 1:30 PM EDT Laboratory Outpatient Laboratory, [address] [phone] [place], [facility] [place] [address] 05/08/2024 2:30 PM EDT Appointment Radiology, [address] [phone] 05/17/2024 7:15 AM EDT Cardiac Studies Cardiac Studies, [facility] 132 [facility] [place] [address] 05/19/2024 9:30 AM EDT Office Visit Urology Hari Roth [address] [place] [address] Marie Tran PA-C [address] [place] [address] 05/23/2024 10:20 AM EDT Office Visit Nephrology, [facility] [address] [place] [address] Tesfaye Morris MD [address] [place] [address] 06/12/2024 9:30 AM EDT Office Visit [facility]ology, [facility] [address] [facility] [address] Erna Srivastava CRNP [address] [place] [address] 09/19/2024 3:30 PM EST Office Visit Cardiology, [facility] [address] [place] [address] Davy Mota MD [address] [place] [address] Scheduled Procedures Name Priority Associated Diagnoses Date/Ti [...] patient or by statute hierarchy) Care Teams Sizing Sprayer Relationship Specialty Start Date End Date Antonio Colon MD [address] [address] PCP - General Family Medicine 02/12/22 documented as of this encounter
--- OUTSIDE RECORDS SUMMARY | 2024-09-21 08:11 | External Medical Summary ---
Author Name Unknown Address Unknown Organization [id number]:[facility] [place] [address] [place] [address] Laboratory Report Ordering Provider Test Date Status STEVE WOLF 04/11/2024 10:31:08 Final Observation Date Value Abnormality Reference (Units ) Status BUN 04/11/2024 10:31:08 17 6-20 (mg/dL) Final Creatinine 04/11/2024 10:31:08 2.4 Above high normal 0.6-1.2 (mg/dL) Final Glomerular filtration rate/1.73 sq M.predicted [Volume Rate/Area] in Serum, Plasma or Blood by Creatinine-based formula (CKD-EPI) 04/11/2024 10:31:08 28 Below low normal >=60 (mL/min) Final eGFR is calculated based on the CKD-EPI 2020 equation. Sodium 04/11/2024 10:31:08 137 135-146 (m mol/L) Final Potassium 04/11/2024 10:31:08 3.5 3.5-5.1 (m mol/L) Final Cl 04/11/2024 10:31:08 96 Below low normal 98- 107 (mmol/L) Final CO2 04/11/2024 10:31:08 28 22-32 (mmo l/L) Final Anion gap 04/11/2024 10:31:08 13 7-15 (mmol /L) Final Glucose 04/11/2024 10:31:08 184 Above high normal 70 -120 (mg/dL) Final Albumin 04/11/2024 10:31:08 4.5 3.8-5.0 (g /dL) Final AST (Aspartate aminotransferase) 04/11/2024 10:31:08 36 10-50 (U/L) Fin al Alk Phos 04/11/2024 10:31:08 101 35-130 (U/ L) Final Bilirubin, Total 04/11/2024 10:31:08 0.4 <=1 .2 (mg/dL) Final Calcium 04/11/2024 10:31:08 9.4 8.4-10.2 ( mg/dL) Final Protein 04/11/2024 10:31:08 8.2 6.0-8.3 (g /dL) Final ALT (Alanine aminotransferase) 04/11/2024 10:31:08 30 10-50 (U/L) Christian flores Performing Location [facility] [place] [address] - [address] [facility] [address]
--- OUTSIDE RECORDS SUMMARY | 2024-09-21 08:11 | External Medical Summary ---
Author Name Unknown Address Unknown Organization [id number]:[facility] [place] [facility] [address] [facility] [place] [address] Laboratory Report Ordering Provider Test Date Status STEVE WOLF 04/11/2024 10:31:08 Final Observation Date Value Abnormality Reference (Units ) Status Reagin Ab [Presence] in Serum by RPR 04/11/2024 10:31:08 Nonreactive Nonreactive Final Performing Location [facility] [place] [facility] [place] [address]
--- OUTSIDE RECORDS SUMMARY | 2024-09-21 08:11 | External Medical Summary ---
Author Name Unknown Address Unknown Organization [id number][place] [place] [address] [facility] [address] Laboratory Report Ordering Provider Test Date Status STEVE WOLF 04/11/2024 10:31:08 Final Observation Date Value Abnormality Reference (Units ) Status Triglyceride 04/11/2024 10:31:08 243 Above high normal <=174 (mg/dL) Final Triglyceride Reference Range s (mg/dL):
<150 Acceptable
150-174 Borderline high
175-499 High
>=500 Very high Cholesterol 04/11/2024 10:31:08 164 <200 (mg /dL) Final Total Cholesterol Reference Ranges (mg/dL):
<200 Desirable
200-239 Borderline high
>=240 High HDL 04/11/2024 10:31:08 41 >39 (mg/dL ) Final HDL Cholesterol Reference Ra nges (mg/dL):
>=60 High (Desirable)
<50 Low (Undesirable) For Females
<40 Low (Undesirable) For Males NON-HDL CHOLESTEROL 04/11/2024 10:31:08 123 <=159 (mg/dL) Final Non-HDL Cholesterol Referenc e Range (mg/dL):
<100 Target level for high risk ASCVD patient
<130 Optimal for general population
130-159 Near optimal for general population
160-189 Borderline High
190-219 High
>=220 Very High LDL, (calculated) 04/11/2024 10:31:08 74 <= 129 (mg/dL) Final LDL Cholesterol Reference Ra nges (mg/dL):
<70 Target level for high risk ASCVD patient
<100 Optimal for general population
100-129 Near optimal for general population
130-159 Borderline high
160-189 High
>=190 Very high Performing Location [facility] [place] [address] [facility] [address]
--- OUTSIDE RECORDS SUMMARY | 2024-09-21 08:11 | External Medical Summary | Summary of Care ---
Author Name Unknown Organization [facility] Address [address] [place] [address] Phone [phone] Care Team Providers Care Food Processing Chemist Name Role Phone Antonio Colon MD Primary Care Provider [phone] Reason for Visit * Reason Onset Date Comments TRIAGE 04/05/2024 3 day Encounter Details Date Type Department Care Team (Late st Contact Info) Description 04/05/2024 Telephone Access Center, [place] [address] [facility] *DO NOT REMOVE THIS DEPARTMENT* [place] [address] Services, Scheduling [address] [place] [address] TRIAGE (3 day) Allergies No known active allergiesdocumented as of this encounter (statuses as of 04/10/2024) Medications Medication Sig Dispensed Refills Start Date End Date Status Co Q 10 10 MG Oral Capsule Take by mouth 1 Caplet Dosing Unit daily . Active Aspirin 81 MG Oral Capsule Take by mouth 1 Caplet Dosing Unit daily . Active Multi-Day Oral Tablet Take by mouth 1 Tablet in the morning. Active FreeStyle Carlos 2 Austin Device Use as directed . Use to [...] Hour (toPROL XL)Indications:Bayron nary artery disease involving cheesh-na coronary artery of cheesh-na heart without angina pectoris TAKE 1 TABLET BY MOUTH EVERY DAY IN THE MORNING 90 Tablet 3 10/05/2023 Active Prasugrel HCl 10 MG Oral Tablet (Effient)Indication s:Coronary artery disease involving cheesh-na coronary artery of cheesh-na heart without angina pectoris TAKE 1 TABLET BY MOUTH EVERY DAY IN THE MORNING 90 Tablet 3 10/05/2023 Active Atorvastatin Calcium 40 MG Oral Tablet (Lipitor)Indication s:Dyslipidemia, goal LDL below 70 TAKE 1 TABLET BY MOUTH EVERY DAY IN THE MORNING 90 Tablet 3 10/06/2023 Active Juluca 50-25 MG Oral Tablet Take 1 Tablet by mouth daily. 90 Tablet 3 12/01/2023 Active Pen Isola 32G X 4 MM Use as directed. 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 05/07/2023 Recurrent major depressive disorder, in full rem ission 05/05/2022 Overweight (BMI 25.0-29.9) 05/02/2022 Dyslipidemia 05/02/2022 Coronary artery disease invo lving cheesh-na coronary artery of cheesh-na heart without angina pectoris 05/02/2022 Type 2 diabetes mellitus wit h hemoglobin A1c goal of less than 8.0% 05/02/2022 [place] (myocardial infarction) 05/02/2022 Chronic systolic (congestive) heart failure 04/14 Left bundle branch block 05/02/2022 HTN, goal below 130/80 HIV positive documented as of this encounter (statuses as of 04/10/2024) Resolved Problems Problem Noted Date Diagnosed Date Resolved Date Chronic heart failure with p reserved ejection fraction 11/24/2022 02/04/2023 Kidney disease, chronic, sta ge IV (GFR 15-29 ml/min) 05/02/2022 02/02/2024 ARDS (adult respiratory distress syndrome) 06/17/2012 05/02/2022 Acute pancreatitis 06/14/2012 Acute respiratory distress 06/14/2012 0 05/02/2022 documented as of this encounter (statuses as of 04/10/2024) Immunizations Name Administration Dates Next Due COVID-19 mRNA, LNP-s, No Pre serve, 2-Dose Series (Moderna) 11/27/2020,10/24/2020 COVID-19, MRNA-LNP, 23-24, P F, 50 MCG/0.5 mL, 12 YRS AND ABOVE, IM (MODERNA-Spikevax) 08/05/2021 Covid-19, Mrna, Lnp-s, Pf, B ivalent, 30 Mcg, IM, 12 yrs and above (Lexara) 09/09/2022 Hepatitis B, 20+ yrs 08/25/2017 Meningococcal [...] Telephone Encounter - Emma Perez OSA - 04/10/2024 1:25 PM EDT Left another message for patient, mailing letter, pt isn't returning calls to schedule * Telephone Encounter - Emma Perez OSA [...] 9:20 AM EDT Office Visit Family Practice [facility] [address] [address] Antonio Colon MD [address] [address] 04/20/2024 6:10 PM EDT Pharmacy Pharmacy, [facility] [address] [address] [facility] [address] [address] 04/27/2024 11:00 AM EDT PulmDiagnostic Pulmonary Function Lab, [facility] 132 [facility] [place] [address] [place], Pft 132 [facility] [place] [address] 05/01/2024 8:30 AM EDT Imaging [facility] 2nd Floor Cardiology, [place] [address] [facility] [place] [phone] Gw, Excess Time Radiology 132 [facility] [place] [address] 05/08/2024 9:00 AM EDT Office Visit Transplant Clinic, [place] [address] [place] [address] Lydia Cavazos MD [facility] [place] [address] Zenon Tierney MD [address] [place] [address] Nurse Isabel [facility] [address] [place] [address] Noni Peters LSW [address] [place] [address] 05/08/2024 1:00 PM EDT Appointment Vascular Lab [facility], [place] [address], [place] [id number] 05/08/2024 1:30 PM EDT Laboratory Outpatient Laboratory, [address] [phone] [place], Lab B1a [facility] [address], [place] [id number] 05/08/2024 2:30 PM EDT Appointment Radiology, [address] [phone] 05/17/2024 7:15 AM EDT Cardiac Studies Cardiac Studies, [facility] 132 [facility] [place] [address] 05/19/2024 9:30 AM EDT Office Visit Urology Sarita Peñaloza [address] [address] Marie Tran PA-C [address] [place] [address] 05/23/2024 10:20 AM EDT Office Visit Nephrology, [facility] [address] [facility] [place] [address] Tesfaye Morris MD [address] [facility] [place] [address] 06/12/2024 9:30 AM EDT Office Visit Gastroenterology, [facility] 132 [facility] [place] [address] Erna Srivastava CRNP [facility] [address] 09/19/2024 3:30 PM EST Office Visit Cardiology, [facility] 132 [facility] [place] [address] Davy Mota MD [address] [facility] [address] Scheduled Procedures Name Priority Associated Diagnoses Date/Ti [...] COVID-19 Vaccine ( - season) 2023 09/09/2022, 08/05/2021, 11/27/2020, Additional history [...] patient or by statute hierarchy) Care Teams Food Processing Chemist Relationship Specialty Start Date End Date Antonio Colon MD [address] [place] [address] PCP - General Family Medicine 02/12/22 documented as of this encounter
--- OUTSIDE RECORDS SUMMARY | 2024-09-21 08:11 | External Medical Summary ---
Author Name Unknown Address Unknown Organization [id number]:[facility]ATORY [facility] [place] [address] [place] [address] Laboratory Report Ordering Provider Test Date Status STEVE WOLF 04/11/2024 10:31:08 Final Observation Date Value Abnormality Reference (Units ) Status Yaritza Pang virus capsid IgG Ab avidity [Presence] in Serum by Immunoassay 04/11/2024 10:31:08 Positive Abnormal Negative Final Performing Location [facility] - [address] [place] [address]
--- OUTSIDE RECORDS SUMMARY | 2024-09-21 08:11 | External Medical Summary ---
Author Name Unknown Address Unknown Organization [id number]:[facility] [place] [address] [place] [address] Laboratory Report Ordering Provider Test Date Status STEVE WOLF 04/11/2024 10:31:08 Final Observation Date Value Abnormality Reference (Units ) Status Parathyrin.intact [Mass/volume] in Serum or Plasma 04/11/2024 10:31:08 400 Above high normal 15-65 (pg/mL) Final Performing Location [facility] [place] [address] [place] [address]
--- OUTSIDE RECORDS SUMMARY | 2024-09-21 08:11 | External Medical Summary ---
Author Name Unknown Address Unknown Organization [id number]:LABORATORY [facility] - [address] [place] [address] Laboratory Report Ordering Provider Test Date Status STEVE WOLF 04/11/2024 10:31:08 Final Observation Date Value Abnormality Reference (Units ) Status Hep C Ab 04/11/2024 10:31:08 Negative Negative Final Further HCV quantitative bronwyn ting not performed per protocol. Performing Location LABORATORY [facility] - [address] [place] [address]
--- OUTSIDE RECORDS SUMMARY | 2024-09-21 08:11 | External Medical Summary ---
Author Name Unknown Address Unknown Organization [id number]:LABORATORY [facility] [place] - [address] [facility] [address] Laboratory Report Ordering Provider Test Date Status STEVE WOLF 04/11/2024 10:31:08 Final Observation Date Value Abnormality Reference (Units ) Status CMV IgG 04/11/2024 10:31:08 Positive Abnormal Negative Final Performing Location LABORATORY [facility] [place] - [address] [facility] [address] [facility] [address]
--- OUTSIDE RECORDS SUMMARY | 2024-09-21 08:11 | External Medical Summary ---
Author Name Unknown Address Unknown Organization [id number]:LABORATORY [place] [facility] - [address] [place] [address] Laboratory Report Ordering Provider Test Date Status STEVE WOLF 04/11/2024 10:31:08 Final Observation Date Value Abnormality Reference (Units ) Status SYNC LEUKOCYTES IN BLOOD BY AUTOMATED COUNT 04/11/2024 10:31:08 4.27 4.00-10.80 (K/uL) Final Segs 04/11/2024 10:31:08 55.0 40.0-75.0 (%) Final Lymphs % 04/11/2024 10:31:08 23.7 18.0-42.0 (%) Final Monos 04/11/2024 10:31:08 19.7 Above high normal 1.0-11.0 (%) Final Eosinophils 04/11/2024 10:31:08 1.4 0.0-6.0 (%) Final Basos 04/11/2024 10:31:08 0.2 0.0-2.0 (%) Final Absolute Segs 04/11/2024 10:31:08 2.35 1.80-7.70 (K/uL) Final Lymphs, absolute 04/11/2024 10:31:08 1.01 1.00-4.80 (K/ul) Final Monos, Abs 04/11/2024 10:31:08 0.84 0.00-1.10 (K/uL) Final Eos, Abs 04/11/2024 10:31:08 0.06 0.00-0.70 (K/uL) Final Basos, Abs 04/11/2024 10:31:08 0.01 0.00-0.20 (K/uL) Final Performing Location LABORATORY [facility] [place] [facility] 0 - [address] [place] [address]
--- OUTSIDE RECORDS SUMMARY | 2024-09-21 08:11 | External Medical Summary ---
Author Name Unknown Address Unknown Organization : Laboratory Report Ordering Provider Test Date Status STEVE WOLF 04/11/2024 10:31:08 Final Observation Date Value Abnormality Reference (Units ) Status Mycobacterium tuberculosis stimulated gamma interferon [Interpretation] in Blood Qualitative 04/11/2024 10:31:08 NEGATIVE NEGATIVE Final Negative test result. M. tub erculosis complex
infection unlikely. Gamma interferon background [Units/volume] in Blood by Immunoassay 04/11/2024 10:31:08 0.33 (IU/mL) Final Mitogen stimulated gamma int erferon [Units/volume] corrected for background in Blood 04/11/2024 10:31:08 3.14 (IU/mL) Final Mycobacterium tuberculosis s timulated gamma interferon release by CD4+ T-cells [Units/volume] corrected for background in Blood 04/11/2024 10:31:08 0.01 (IU/mL) Final Mycobacterium tuberculosis s timulated gamma interferon release by CD4+ and CD8+ T-cells [Units/volume] corrected for background in Blood 04/11/2024 10:31:08 0.01 (IU/mL) Final The Nil tube value reflects the background interferon
gamma immune response of the patient's blood sample.
This value has been subtracted from the patient's
displayed TB and Mitogen results.
Lower than expected results with the Mitogen tube
prevent false-negative Quantiferon readings by detect-
ing a patient with a potential immune suppressive
condition and/or suboptimal pre-analytical specimen
handling.
The TB1 Antigen tube is coated with the M.
tuberculosis-specific antigens designed to elicit
responses from TB antigen primed CD4+ helper
T-lymphocytes.
The TB2 Antigen tube is coated with the M.
tuberculosis-specific antigens designed to elicit
responses from TB antigen primed CD4+ helper and CD8+
cytotoxic T-lymphocytes.
For additional information, please refer to
http://education.MyFuelUp.Pixways/faq/RYG027
(This link is being provided for information/
educational purposes only.)

Test Performed at:
[facility]
[address] [facility]
[place] [address]
Kevin Grimm M.D., Ph.D.,Director of Laboratories Performing Location
--- OUTSIDE RECORDS SUMMARY | 2024-09-21 08:11 | External Medical Summary ---
Author Name Unknown Address Unknown Organization K01:LABORATORY [facility] - [address] [place] [address] Laboratory Report Ordering Provider Test Date Status STEVE WOLF 04/11/2024 10:31:08 Final Observation Date Value Abnormality Reference (Units ) Status Phosphate 04/11/2024 10:31:08 2.2 Below low normal 2.5 -4.8 (mg/dL) Final Performing Location LABORATORY [facility] - [address] [place] [address]
--- OUTSIDE RECORDS SUMMARY | 2024-09-21 08:11 | External Medical Summary ---
Author Name Unknown Address Unknown Organization K01:LABORATORY [address] [place] [address] Laboratory Report Ordering Provider Test Date Status STEVE WOLF 04/11/2024 10:31:08 Final Observation Date Value Abnormality Reference (Units) Status Hepatitis B virus surface Ab [Units/volume] in Serum or Plasma by Immunoassay 04/11/2024 10:31:08 64.4 (mIU/mL) Final Hepatitis B virus surface Ab [Presence] in Serum by Immunoassay 04/11/2024 10:31:08 Positive Final HEPATITIS B SURFACE ANTIBODY, INTERPRETATION 04/11/2024 10:31:08 Immune to Hepatitis B Virus Final POSITIVE: >=11.5 mIU/mL
INDETERMINATE: 8.5-<11.5 mIU/mL
NEGATIVE: <8.5 mIU/mL Performing Location LABORATORY [place] [address] [place] [address]
--- OUTSIDE RECORDS SUMMARY | 2024-09-21 08:11 | External Medical Summary ---
Author Name Unknown Address Unknown Organization [id number]:LABORATORY [facility] - [address] [place] [address] Laboratory Report Ordering Provider Test Date Status STEVE WOLF 04/11/2024 10:31:08 Final Observation Date Value Abnormality Reference (Units ) Status ABO 04/11/2024 10:31:08 A Final RH 04/11/2024 10:31:08 Positive Final Performing Location LABORATORY [facility] - [address] [place] [address]
--- OUTSIDE RECORDS SUMMARY | 2024-09-21 08:11 | External Medical Summary ---
Author Name Unknown Address Unknown Organization K0G[facility] [address] [place] [address] Laboratory Report Ordering Provider Test Date Status STEVE WOLF 04/11/2024 10:31:08 Final Warfarin Therapy
INR: 2 .0-3.0 conventional anticoagulation
INR: 2.5- 3.5 high intensity anticoagulation Observation Date Value Abnormality Reference (Units ) Status PT 04/11/2024 10:31:08 13.0 11.6-15.2 (seconds) Final INR 04/11/2024 10:31:08 1.0 0.8-1.2 Final Performing Location [facility] - [address] [place] [address]
--- OUTSIDE RECORDS SUMMARY | 2024-09-21 08:11 | External Medical Summary ---
Author Name Unknown Address Unknown Organization K01:LABORATORY [facility] [place] - [address] [place] [address] Laboratory Report Ordering Provider Test Date Status STEVE WOLF 04/11/2024 10:31:08 Final Observation Date Value Abnormality Reference (Units ) Status HbA1C 04/11/2024 10:31:08 8.6 Above high normal 4. 0-5.6 (%) Final The use of HbA1c to monitor glycemic status is based on normal hemoglobin and HbA composition. This test should not be used in patients with abnormal hemoglobin that affects the half life of the red blood cell or the in vivo glycation rates. Glucose, estimated average 04/11/2024 10:31:08 200 Above high normal <126 (mg/dL) Christian flores Performing Location LABORATORY [facility] [place] - [address] [place] [address]
--- OUTSIDE RECORDS SUMMARY | 2024-09-21 08:11 | External Medical Summary ---
Author Name Unknown Address Unknown Organization K01:LABORATORY [facility] - [address] [place] [address] Laboratory Report Ordering Provider Test Date Status STEVE WOLF 04/11/2024 10:31:08 Final Observation Date Value Abnormality Reference (Units ) Status PSA 04/11/2024 10:31:08 1.30 <4.10 (ng/ mL) Final Performing Location LABORATORY [facility] - [address] [place] [address]
--- OUTSIDE RECORDS SUMMARY | 2024-09-21 08:11 | External Medical Summary ---
Author Name Unknown Address Unknown Organization K[facility] [address] [place] [address] Laboratory Report Ordering Provider Test Date Status STEVE WOLF 04/11/2024 10:31:08 Final Observation Date Value Abnormality Reference (Units ) Status WBC, Total 04/11/2024 10:31:08 4.27 4.00-10.8 0 (K/uL) Final RBC 04/11/2024 10:31:08 4.42 4.50-5.25 (M/uL) Final Hemoglobin 04/11/2024 10:31:08 13.0 Below low normal 14 .0-16.8 (g/dL) Final HCT 04/11/2024 10:31:08 38.6 Below low normal 40. 0-48.4 (%) Final MCV 04/11/2024 10:31:08 87.3 82.0-99.5 (fL) Final MCH 04/11/2024 10:31:08 29.4 27.0-34.0 (pg) Final MCHC 04/11/2024 10:31:08 33.7 32.0-36.0 (g/dL) Final RDW 04/11/2024 10:31:08 12.7 11.5-15.5 (%) Final Platelets 04/11/2024 10:31:08 167 140-400 (K /uL) Final MPV 04/11/2024 10:31:08 9.0 6.6-11.1 ( fL) Final Performing Location LABORATORY [facility] [place] [facility] 0 - [address] [place] [address]
--- OUTSIDE RECORDS SUMMARY | 2024-09-21 08:11 | External Medical Summary ---
Author Name Unknown Address Unknown Organization K01:LABORATORY [facility] [place] - [address] [place] [address] Laboratory Report Ordering Provider Test Date Status MARYANNSTEVE 04/11/2024 10:31:08 Final Observation Date Value Abnormality Reference (Units ) Status Varicella Zoster IgG interpretation 04/11/2024 10:31:08 Positive Abnormal Negative Final A positive result is consist ent with having had varicella zoster virus or vaccination. Performing Location LABORATORY [facility] - [address] [place] [address]
--- OUTSIDE RECORDS SUMMARY | 2024-09-21 08:12 | External Medical Summary | Summary of Care ---
Author Name Unknown Organization [facility] Address [address] [place] [address] Phone [phone] Care Team Providers Care Linoleum Tile Floor Layer Name Role Phone Antonio Colon MD Primary Care Provider [phone] Reason for Referral * Precert (Within 10 days (routine)) - Authorized Specialty Diagnoses / Procedures Referred By Daydayac t Referred To Contact Radiology Diagnoses ESRD on dialysis (HCC) Pre-transplant evaluation for ESRD (end stage renal disease) Procedures CT CHEST WO CONTRAST Librado Stubbs MD [address] [place] [address] Referral ID Status Reason Start Date Expiration Date V isits Requested Visits Authorized [id number] Authorized 03/17/2024 999 999 * Precert (Within 10 days (routine)) - Authorized Specialty Diagnoses / Procedures Referred By Contac t Referred To Contact Radiology Diagnoses Type 2 diabetes mellitus with hemoglobin A1c goal of less than 8.0% (HCC) ESRD on dialysis (HCC) Pre-transplant evaluation for ESRD (end stage renal disease) Procedures CT ABD/PELVIS WO IV/ORAL CONTRAST Librado Stubbs MD [address] [place] [address] Referral ID Status Reason Start Date Expiration Date V isits Requested Visits Authorized [id number] Authorized 03/17/2024 999 999 Reason for Visit * Reason Onset Date Comments Information 03/10/2024 Initial review Encounter Details Date Type Department Care Team (Late st Contact Info) Description 03/10/2024 Telephone Transplant Clinic, [place] [address] [place] [address] Larissa Ramos, RN [facility] [place] [id number] Information (Initial review) Allergies No known active allergiesdocumented as of this encounter (statuses as of 04/03/2024) Medications Medication Sig Dispensed Refills Start Date End Date Status Co Q 10 10 MG Oral Capsule Take by mouth 1 Caplet Dosing Unit daily . Active Aspirin 81 MG Oral Capsule Take by mouth 1 Caplet Dosing Unit daily . Active Multi-Day Oral Tablet Take by mouth 1 Tablet in the morning. Active HabitissimoStyle Carlos 2 Norlina Device Use as directed . Use to [...] kidney disease) stage 4, GFR 15-29 ml/min ([facility]) TAKE 1 CAPSULE (0.5 MCG) BY MOUTH IN THE MORNING. 90 Capsule 5 09/15/2023 Active Metoprolol Succinate ER 25 MG Oral Tablet Extended Release 24 Hour (toPROL XL)Indications:Bayron nary artery disease involving [place] coronary artery of [place] heart without angina pectoris TAKE 1 TABLET BY MOUTH EVERY DAY IN THE MORNING 90 Tablet 3 10/05/2023 Active Prasugrel HCl 10 MG Oral Tablet (Effient)Indication s:Coronary artery disease involving [place] coronary artery of [place] heart without angina pectoris TAKE 1 TABLET BY MOUTH EVERY DAY IN THE MORNING 90 Tablet 3 10/05/2023 Active Atorvastatin Calcium 40 MG Oral Tablet (Lipitor)Indication s:Dyslipidemia, goal LDL below 70 TAKE 1 TABLET BY MOUTH EVERY DAY IN THE MORNING 90 Tablet 3 10/06/2023 Active Juluca 50-25 MG Oral Tablet Take 1 Tablet by mouth daily. 90 Tablet 3 12/01/2023 Active Pen [place] 32G X 4 MM Use as directed. 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 05/07/2023 Recurrent major depressive disorder, in full rem ission 05/05/2022 Overweight (BMI 25.0-29.9) 05/02/2022 Dyslipidemia 05/02/2022 Coronary artery disease invo lving [place] coronary artery of [place] heart without angina pectoris 05/02/2022 Type 2 diabetes mellitus wit h hemoglobin A1c goal of less than 8.0% 05/02/2022 Old TX (myocardial infarction) 05/02/2022 Chronic systolic (congestive) heart failure 04/14 Left bundle branch block 05/02/2022 HTN, goal below 130/80 HIV positive documented as of this encounter (statuses as of 04/03/2024) Resolved Problems Problem Noted Date Diagnosed Date Resolved Date Chronic heart failure with p reserved ejection fraction 11/24/2022 02/04/2023 Kidney disease, chronic, sta ge IV (GFR 15-29 ml/min) 05/02/2022 02/02/2024 ARDS (adult respiratory distress syndrome) 06/17/2012 05/02/2022 Acute pancreatitis 06/14/2012 Acute respiratory distress 06/14/2012 0 05/02/2022 documented as of this encounter (statuses as of 04/03/2024) Immunizations Name Administration Dates Next Due COVID-19 mRNA, LNP-s, No Pre serve, 2-Dose Series (Moderna) 11/27/2020,10/24/2020 COVID-19, MRNA-LNP, 23-24, P F, 50 MCG/0.5 mL, 12 YRS AND ABOVE, IM (MODERNA-Spikevax) 08/05/2021 Covid-19, Mrna, Lnp-s, Pf, B ivalent, 30 Mcg, IM, 12 yrs and above (PlaySpan) 09/09/2022 Hepatitis B, 20+ yrs 08/25/2017 Meningococcal [...] encounter Miscellaneous Notes * Telephone Encounter - Larissa Ramos RN - 03/10/2024 2:24 PM EDT Referred by dr norris Available records reviewed: 68 year old male with ESRD due to DM2. Known CAD with previous stents. Pos for HIV. Follows with urology for stents. Previous smoker 40 + year smoking history., Diagnosis: DM2 Dialysis: [facility] Living donor: Yes We will schedule for initial kidney evaluation at [facility] Mon: Test completed: 1. Cards 2. GI jeri 06/12/24 3. Strss jeri 05/01/24 4. Echo jeri 05/17/24 5. Colon 02/19/23 6. CXR 02/23/24 7. Carotid 01/28/21 Test needed: 1. labs 2. Ct ab pelvis and chest 3. PFT 4. Cardiac clearance 5. ABIs Shay to speak to Hector to inform him of the expectation's of the transplant team and who he would meet the day their appointment. We also discuss the support person who is coming to the appointment. Larissa Ramos RN documented in this encounter Plan of Treatment Upcoming Encounters Date Type Department Care Team (Late st Contact Info) Description 04/11/2024 9:20 AM EDT Office Visit Family Practice [facility] [address] [place] [address] Antonio Colon MD [address] [place] [address] 04/20/2024 6:10 PM EDT [facility]acy [facility] [place] [id number] [facility] [place] [address] 04/27/2024 11:00 AM EDT Pul[facility]Diagnostic [facility], [facility] [place] [address] [place], [address] [facility] [place] [address] 05/01/2024 8:30 AM EDT Imaging [facility] 2nd Floor Cardiology, [address] [place] [phone] Gw, Excess Time Radiology [address] [facility] [place] [address] 05/08/2024 9:00 AM EDT Office Visit Transplant Clinic, [place] [address] [place] [address] Lydia Cavazos MD [address] [place] [address] Zenon Tierney MD [address] [place] [address] Nurse [facility] [address] [place] [address] Noni Peters LSW [address] [place] [address] 05/08/2024 1:00 PM EDT Appointment Vascular Lab [facility], [place] [address] [place] [address] 05/08/2024 1:30 PM EDT Laboratory Outpatient Laboratory, [place] [address] [place] [phone] [facility] [address] [place] [address] 05/08/2024 2:30 PM EDT Appointment Radiology, [address] [phone] 05/17/2024 7:15 AM EDT Cardiac Studies Cardiac Studies, [facility] [address] [facility] [place] [address] 05/19/2024 9:30 AM EDT Office Visit Urology Hari Roth [address] [place] [address] Marie Tran PA-C [address] [place] [address] 05/23/2024 10:20 AM EDT Office Visit Nephrology, [facility] [address] [facility] [place] [address] Tesfaye Norris MD [address] [facility] [place] [address] 06/12/2024 9:30 AM EDT Office Visit Gastroenterology, [facility] [address] [facility] [place] [address] Erna Srivastava CRNP [address] [facility] [place] [address] 09/19/2024 3:30 PM EST Office Visit Cardiology, [facility] [address] [facility] [place] [address] Davy Mota MD [address] [facility] [place] [address] Scheduled Orders Name Type Priority Associated Diagnoses Order Schedule PHOSPHORUS Lab STAT Type 2 diabetes mellitus with hemoglobin A1c goal of less than 8.0% (HCC) ESRD on dialysis (HCC) Pre-transplant evaluation for ESRD (end stage renal disease) Expected: 03/16/2024 (Approximate), Expires: 02/15/2025 QUANTIFERON TB GOLD PLUS Lab STAT Type 2 diabetes mellitus with hemoglobin A1c goal of less than 8.0% (HCC) ESRD on dialysis (HCC) Pre-transplant evaluation for ESRD (end stage renal disease) Expected: 03/16/2024 (Approximate), Expires: 02/15/2025 CBC WITH WBC DIFFERENTIAL Lab STAT Type 2 diabetes mellitus with hemoglobin A1c goal of less than 8.0% (HCC) ESRD on dialysis (HCC) Pre-transplant evaluation for ESRD (end stage renal disease) Expected: 03/16/2024 (Approximate), Expires: 02/15/2025 LIPID PANEL WITHOUT DIRECT LDL Lab STAT Type 2 diabetes mellitus with hemoglobin A1c goal of less than 8.0% (HCC) ESRD on dialysis (HCC) Pre-transplant evaluation for ESRD (end stage renal disease) Expected: 03/16/2024 (Approximate), Expires: 02/15/2025 CMV IGG ANTIBODY Lab STAT Type 2 diabetes mellitus with hemoglobin A1c goal of less than 8.0% (HCC) ESRD on dialysis (HCC) Pre-transplant evaluation for ESRD (end stage renal disease) Expected: 03/16/2024 (Approximate), Expires: 02/15/2025 EBV VIRAL CAPSID ANTIGEN IGG ANTIBODY Lab STAT Type 2 diabetes mellitus with hemoglobin A1c goal of less than 8.0% (HCC) ESRD on dialysis (HCC) Pre-transplant evaluation for ESRD (end stage renal disease) Expected: 03/16/2024 (Approximate), Expires: 02/15/2025 RPR Lab STAT Type 2 diabetes mellitus with hemoglobin A1c goal of less than 8.0% (HCC) ESRD on dialysis (HCC) Pre-transplant evaluation for ESRD (end stage renal disease) Expected: 03/16/2024 (Approximate), Expires: 02/15/2025 HEPATITIS B SURFACE ANTIGEN Lab STAT Type 2 diabetes mellitus with hemoglobin A1c goal of less than 8.0% (HCC) ESRD on dialysis (HCC) Pre-transplant evaluation for ESRD (end stage renal disease) Expected: 03/16/2024 (Approximate), Expires: 02/15/2025 HEPATITIS B SURFACE ANTIBODY Lab STAT Type 2 diabetes mellitus with hemoglobin A1c goal of less than 8.0% (HCC) ESRD on dialysis (HCC) Pre-transplant evaluation for ESRD (end stage renal disease) Expected: 03/16/2024 (Approximate), Expires: 02/15/2025 HEPATITIS B CORE ANTIBODIES IGG AND IGM Lab STAT Type 2 diabetes mellitus with hemoglobin A1c goal of less than 8.0% (HCC) ESRD on dialysis (HCC) Pre-transplant evaluation for ESRD (end stage renal disease) Expected: 03/16/2024 (Approximate), Expires: 02/15/2025 HEPATITIS C ANTIBODY SCREEN WITH PROGRESSION TO HEPATITIS C RNA QUANTITATIVE Lab STAT Type 2 diabetes mellitus with hemoglobin A1c goal of less than 8.0% (HCC) ESRD on dialysis (HCC) Pre-transplant evaluation for ESRD (end stage renal disease) Expected: 03/16/2024 (Approximate), Expires: 02/15/2025 VARICELLA-ZOSTER VIRUS ANTIBODY, IGG Lab STAT Type 2 diabetes mellitus with hemoglobin A1c goal of less than 8.0% (HCC) ESRD on dialysis (HCC) Pre-transplant evaluation for ESRD (end stage renal disease) Expected: 03/16/2024 (Approximate), Expires: 02/15/2025 APTT Lab STAT Type 2 diabetes mellitus with hemoglobin A1c goal of less than 8.0% (HCC) ESRD on dialysis (HCC) Pre-transplant evaluation for ESRD (end stage renal disease) Expected: 03/16/2024 (Approximate), Expires: 02/15/2025 PT INR Lab STAT Type 2 diabetes mellitus with hemoglobin A1c goal of less than 8.0% (HCC) ESRD on dialysis (HCC) Pre-transplant evaluation for ESRD (end stage renal disease) Expected: 03/16/2024 (Approximate), Expires: 02/15/2025 COMPREHENSIVE METABOLIC PANEL Lab STAT Type 2 diabetes mellitus with hemoglobin A1c goal of less than 8.0% ([facility]) ESRD on dialysis ([facility]) Pre-transplant evaluation for ESRD (end stage renal disease) Expected: 03/16/2024 (Approximate), Expires: 02/15/2025 TRANSPLANT ABO/RH Lab STAT Type 2 diabetes mellitus with hemoglobin A1c goal of less than 8.0% (HCC) ESRD on dialysis (HCC) Pre-transplant evaluation for ESRD (end stage renal disease) Expected: 03/16/2024 (Approximate), Expires: 02/15/2025 TRANSPLANT ABO/RH CONFIRMATION Lab STAT Type 2 diabetes mellitus with hemoglobin A1c goal of less than 8.0% (HCC) ESRD on dialysis (HCC) Pre-transplant evaluation for ESRD (end stage renal disease) Expected: 03/16/2024 (Approximate), Expires: 02/15/2025 RECIPIENT SOLID ORGAN PRE-TRANSPLANT HLA * Lab STAT Type 2 diabetes mellitus with hemoglobin A1c goal of less than 8.0% (HCC) ESRD on dialysis (HCC) Pre-transplant evaluation for ESRD (end stage renal disease) Expected: 03/16/2024 (Approximate), Expires: 02/15/2025 MONTHLY HLA CLASS 1 & 2 W/REFLEX, SOLID ORGAN TRANSPLANT Lab STAT Type 2 diabetes mellitus with hemoglobin A1c goal of less than 8.0% (HCC) ESRD on dialysis (HCC) Pre-transplant evaluation for ESRD (end stage renal disease) Expected: 03/16/2024 (Approximate), Expires: 02/15/2025 PTH Lab STAT Type 2 diabetes mellitus with hemoglobin A1c goal of less than 8.0% (HCC) ESRD on dialysis (HCC) Pre-transplant evaluation for ESRD (end stage renal disease) Expected: 03/16/2024 (Approximate), Expires: 02/15/2025 PROTEIN/ CREATININE RATIO, URINE Lab STAT Type 2 diabetes mellitus with hemoglobin A1c goal of less than 8.0% (HCC) ESRD on dialysis ([facility]) Pre-transplant evaluation for ESRD (end stage renal disease) Expected: 03/16/2024 (Approximate), Expires: 02/15/2025 URINALYSIS, REFLEX TO MICROSCOPIC Lab STAT Type 2 diabetes mellitus with hemoglobin A1c goal of less than 8.0% ([facility]) ESRD on dialysis (HCC) Pre-transplant evaluation for ESRD (end stage renal disease) Expected: 03/16/2024 (Approximate), Expires: 02/15/2025 CULTURE, URINE, QUANTITATIVE Lab STAT Type 2 diabetes mellitus with hemoglobin A1c goal of less than 8.0% (HCC) ESRD on dialysis ([facility]) Pre-transplant evaluation for ESRD (end stage renal disease) Expected: 03/16/2024 (Approximate), Expires: 02/15/2025 SPIROMETRY B/A BRONCHODILATOR Procedures Routine Type 2 diabetes mellitus with hemoglobin A1c goal of less than 8.0% (HCC) ESRD on dialysis (HCC) Pre-transplant evaluation for ESRD (end stage renal disease) Expected: 03/17/2024, Expires: 03/10/2025 LUNG VOLUMES (PLETHYSMOGRAPHY) Procedures Routine Type 2 diabetes mellitus with hemoglobin A1c goal of less than 8.0% (HCC) ESRD on dialysis (HCC) Pre-transplant evaluation for ESRD (end stage renal disease) Expected: 03/17/2024, Expires: 03/10/2025 DIFFUSION CAPACITY (DLCO) Procedures Routine Type 2 diabetes mellitus with hemoglobin A1c goal of less than 8.0% (HCC) ESRD on dialysis (HCC) Pre-transplant evaluation for ESRD (end stage renal disease) Expected: 03/17/2024, Expires: 03/10/2025 VASC ANKLE BRACHIAL INDICES WITHOUT PPG (PAD) Medical Imaging Routine Type 2 diabetes mellitus with hemoglobin A1c goal of less than 8.0% (HCC) ESRD on dialysis (HCC) Pre-transplant evaluation for ESRD (end stage renal disease) Expected: 03/17/2024, Expires: 04/09/2025 CT ABD/PELVIS WO IV/ORAL CONTRAST Medical Imaging Routine Type 2 diabetes mellitus with hemoglobin A1c goal of less than 8.0% (HCC) ESRD on dialysis (HCC) Pre-transplant evaluation for ESRD (end stage renal disease) Expected: 03/17/2024, Expires: 04/09/2025 HEMOGLOBIN A1C Lab STAT Type 2 diabetes mellitus with hemoglobin A1c goal of less than 8.0% (HCC) ESRD on dialysis (HCC) Pre-transplant evaluation for ESRD (end stage renal disease) Expected: 03/16/2024 (Approximate), Expires: 02/15/2025 PSA Lab STAT Type 2 diabetes mellitus with hemoglobin A1c goal of less than 8.0% (HCC) ESRD on dialysis (HCC) Abnormal findings on diagnostic imaging of limbs Pre-transplant evaluation for ESRD (end stage renal disease) Expected: 03/16/2024 (Approximate), Expires: 02/15/2025 CT CHEST WO CONTRAST Medical Imaging Routine ESRD on dialysis (HCC) Pre-transplant evaluation for ESRD (end stage renal disease) Expected: 03/17/2024, Expires: 04/09/2025 Scheduled Procedures Name Priority Associated Diagnoses Date/Ti [...] on dialysis (HCC) End stage renal disease Abnormal findings on diagnostic imaging of limbs Other nonspecific (abnormal) findings on radiological and other examinations of body structure Pre-transplant evaluation for ESRD (end stage renal disease) Other specified pre-operative examination documented in this encounter Advance Directives * [...] patient or by statute hierarchy) Care Teams Linoleum Tile Floor Layer Relationship Specialty Start Date End Date Antonio Cloon MD [address] [place] [id number] PCP - General Family Medicine 02/12/22 documented as of this encounter
--- OUTSIDE RECORDS SUMMARY | 2024-09-21 08:12 | External Medical Summary | Summary of Care ---
Author Name Unknown Organization [facility] Address [address] [place] [address] Phone [phone] Care Team Providers Care Hand Molder And Caster Name Role Phone Antonio Colon MD Primary Care Provider [phone] Reason for Visit * Reason Onset Date Comments Appointment 02/24/2024 3 day urgent Encounter Details Date Type Department Care Team (Late st Contact Info) Description 02/24/2024 Telephone Urology, [facility] [address] [facility] [address] Antonio Colon MD [address] [place] [address] Appointment (3 day urgent ) Allergies No known active allergiesdocumented as of this encounter (statuses as of 03/30/2024) Medications Medication Sig Dispensed Refills Start Date End Date Status Co Q 10 10 MG Oral Capsule Take by mouth 1 Caplet Dosing Unit daily . Active Aspirin 81 MG Oral Capsule Take by mouth 1 Caplet Dosing Unit daily . Active Multi-Day Oral Tablet Take by mouth 1 Tablet in the morning. Active FreeStyle Carlos 2 [place] Device Use as directed . Use to [...] disease) stage 4, GFR 15-29 ml/min ([facility]) TAKE 1 CAPSULE (0.5 MCG) BY MOUTH IN THE MORNING. 90 Capsule 5 09/15/2023 Active Metoprolol Succinate ER 25 MG Oral Tablet Extended Release 24 Hour (toPROL XL)Indications:Bayron nary artery disease involving [place] coronary artery of [place] heart without angina pectoris TAKE 1 TABLET BY MOUTH EVERY DAY IN THE MORNING 90 Tablet 3 10/05/2023 Active Prasugrel HCl 10 MG Oral Tablet (Effient)Indication s:Coronary artery disease involving [place] coronary artery of [place] heart without angina pectoris TAKE 1 TABLET BY MOUTH EVERY DAY IN THE MORNING 90 Tablet 3 10/05/2023 Active Atorvastatin Calcium 40 MG Oral Tablet (Lipitor)Indication s:Dyslipidemia, goal LDL below 70 TAKE 1 TABLET BY MOUTH EVERY DAY IN THE MORNING 90 Tablet 3 10/06/2023 Active Juluca 50-25 MG Oral Tablet Take 1 Tablet by mouth daily. 90 Tablet 3 12/01/2023 Active Pen [place] 32G X 4 MM Use as directed. [...] A1c goal of less than 8.0% ([facility]) Inject 10 Units under the skin in the morning and 10 Units at noon and 10 Units before bedtime. With meals. 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 05/07/2023 Recurrent major depressive disorder, in full rem ission 05/05/2022 Overweight (BMI 25.0-29.9) 05/02/2022 Dyslipidemia 05/02/2022 Coronary artery disease invo lving [place] coronary artery of [place] heart without angina pectoris 05/02/2022 Type 2 diabetes mellitus wit h hemoglobin A1c goal of less than 8.0% 05/02/2022 Old [place] (myocardial infarction) 05/02/2022 Chronic systolic (congestive) heart failure 04/14 Left bundle branch block 05/02/2022 HTN, goal below 130/80 HIV positive documented as of this encounter (statuses as of 03/30/2024) Resolved Problems Problem Noted Date Diagnosed Date Resolved Date Chronic heart failure with p reserved ejection fraction 11/24/2022 02/04/2023 Kidney disease, chronic, sta ge IV (GFR 15-29 ml/min) 05/02/2022 02/02/2024 ARDS (adult respiratory distress syndrome) 06/17/2012 05/02/2022 Acute pancreatitis 06/14/2012 Acute respiratory distress 06/14/2012 0 05/02/2022 documented as of this encounter (statuses as of 03/30/2024) Immunizations Name Administration Dates Next Due COVID-19 mRNA, LNP-s, No Pre serve, 2-Dose Series (Moderna) 11/27/2020,10/24/2020 COVID-19, MRNA-LNP, 23-24, P F, 50 MCG/0.5 mL, 12 YRS AND ABOVE, IM (MODERNA-Spikevax) 08/05/2021 Covid-19, Mrna, Lnp-s, Pf, B ivalent, 30 Mcg, IM, 12 yrs and above ([employer]) 09/09/2022 Hepatitis B, 20+ yrs 08/25/2017 Meningococcal [...] encounter Miscellaneous Notes * Telephone Encounter - Rick Cox OSA - 03/30/2024 9:15 AM EDT Pt is scheduled for May 19 with Marie Tran in [place]. * Telephone Encounter - Michelle Reed LPN - 02/24/2024 2:31 PM EDT Patient is currently established with [facility]. He was seen by Dr Villavicencio 02/18/2024. If patient wishes to establish with [facility] urology, next available new patient opening is appropriate as patient currently has urologic care established. * Telephone Encounter - Ammy Berry OSA - 02/24/2024 2:21 PM EDT 3 day urgent with F/u Cystoscopy with extraction/destruction of bladder stone and right retrograde pyelogram with stent placement completed at [facility] on 12/30 documented in this encounter Plan of Treatment Upcoming Encounters Date Type Department Care Team (Late st Contact Info) Description 04/11/2024 9:20 AM EDT Office Visit Family [address] [place] [address] Antonio Colon MD [address] [place] [address] 04/20/2024 6:10 PM EDT Pharmacy Pharmacy, [facility] [address] [place] [address] [place] [address] [place] [address] 04/27/2024 11:00 AM EDT PulmDiagnostic Pulmonary Function Lab, [facility] [address] [place] [address] West, Pft [facility] [place] [address] 05/01/2024 8:30 AM EDT Imaging [facility] 2nd Floor Cardiology, [place] [address] [place] [address] Gw, Excess Time Radiology [address] [place] [address] 05/08/2024 9:00 AM EDT [facility] [address] [place] [address] Lydia Cavazos MD [address] [place] [address] Zenon Tierney MD [address] [place] [address] Nurse Isabel Renal Transplant [address] [place] [address] Noni Pteers LSW [address] [place], [place] 05/08/2024 1:00 PM EDT Appointment Vascular Lab [facility], [address] [address] 05/08/2024 1:30 PM EDT Laboratory Outpatient Laboratory, [address] [address] [place], [facility] [address] [address] 05/08/2024 2:30 PM EDT Appointment Radiology, [address] [address] 05/17/2024 7:15 AM EDT Cardiac Studies Cardiac Studies, [facility] 132 [facility] [place] [address] 05/19/2024 9:30 AM EDT Office Visit Urology Hari Roth [address] [place] [address] Marie Tran PA-C [address] [place] [address] 05/23/2024 10:20 AM EDT Office Visit Nephrology, [facility] [address] [place] [address] Tesfaye Morris MD 200 [facility] [place] [address] 06/12/2024 9:30 AM EDT Office Visit Gastroenterology, [facility] [address] [place] [address] Erna Srivastava CRNP 132 [facility] [place] [address] 09/19/2024 3:30 PM EST Office Visit Cardiology, [facility] [address] [place] [address] Davy Mota MD 132 [facility] [place] [address] Scheduled Procedures Name Priority Associated Diagnoses Date/Ti [...] 08/04/2022 08/04/2017, 02/03/2013 COVID-19 Vaccine ( - 2022- season) 2023 09/09/2022, 08/05/2021, 11/27/2020, Additional history exists Influenza Vaccine (FLU shot) (#1) 2024 08/12/2023, 09/09/2022, 06/19/2021, Additional history exists HbA1c 08/04/2024 02/02/2024, 04/14, 08/12/2022, Additional history exists Colonoscopy 01/06/2025 01/07/2024, 0605/2023, [...] patient or by statute hierarchy) Care Teams Hand Molder And Caster Relationship Specialty Start Date End Date Antonio Colon MD [address] [place] [address] PCP - General Family Medicine 02/12/22 documented as of this encounter
--- OUTSIDE RECORDS SUMMARY | 2024-09-21 08:12 | External Medical Summary | Summary of Care ---
Author Name Unknown Organization [facility] Address [address] [place] [address] Phone [phone] Care Team Providers Care Lace Paper Machine Operator Name Role Phone Antonio Colon MD Primary Care Provider [phone] Reason for Visit * Reason Onset Date Comments TRIAGE 04/05/2024 3 day Encounter Details Date Type Department Care Team (Late st Contact Info) Description 04/05/2024 Telephone Access Center, [place] [address] [facility] *DO NOT REMOVE THIS DEPARTMENT* [place] [address] Services, Scheduling [address] [place] [address] TRIAGE (3 day) Allergies No known active allergiesdocumented as of this encounter (statuses as of 04/05/2024) Medications Medication Sig Dispensed Refills Start Date End Date Status Co Q 10 10 MG Oral Capsule Take by mouth 1 Caplet Dosing Unit daily . Active Aspirin 81 MG Oral Capsule Take by mouth 1 Caplet Dosing Unit daily . Active Multi-Day Oral Tablet Take by mouth 1 Tablet in the morning. Active FreeStyle Carlos 2 [place] Device Use as directed . Use to [...] kidney disease) stage 4, GFR 15-29 ml/min ([facility]) TAKE 1 CAPSULE (0.5 MCG) BY MOUTH IN THE MORNING. 90 Capsule 5 09/15/2023 Active Metoprolol Succinate ER 25 MG Oral Tablet Extended Release 24 Hour (toPROL XL)Indications:Bayron nary artery disease involving [place] coronary artery of [place] heart without angina pectoris TAKE 1 TABLET BY MOUTH EVERY DAY IN THE MORNING 90 Tablet 3 10/05/2023 Active Prasugrel HCl 10 MG Oral Tablet (Effient)Indication s:Coronary artery disease involving pon[place] tribe of indians [...] daily. 90 Tablet 3 12/01/2023 Active [place] 32G X 4 MM Use as directed. [...] [facility]) Inject 10 Units under the skin [...] as of this encounter (statuses as of 04/05/2024) Active Problems Problem Noted Date Diagnosed Date [...] goal of less than 8.0% 05/02/2022 Old [place] (myocardial infarction) 05/02/2022 Chronic systolic (congestive) heart failure 04/14 Left bundle branch block 05/02/2022 HTN, goal below 130/80 HIV positive documented as of this encounter (statuses as of 04/05/2024) Resolved Problems Problem Noted Date Diagnosed Date Resolved Date Chronic heart failure with p reserved ejection fraction 11/24/2022 02/04/2023 Kidney disease, chronic, sta ge IV (GFR 15-29 ml/min) 05/02/2022 02/02/2024 ARDS (adult respiratory distress syndrome) 06/17/2012 05/02/2022 Acute pancreatitis 06/14/2012 Acute respiratory distress 06/14/2012 0 05/02/2022 documented as of this encounter (statuses as of 04/05/2024) Immunizations Name Administration Dates Next Due COVID-19 mRNA, LNP-s, No Pre serve, 2-Dose Series (Moderna) 11/27/2020,10/24/2020 COVID-19, MRNA-LNP, 23-24, P F, 50 MCG/0.5 mL, 12 YRS AND ABOVE, IM (MODERNA-Spikevax) 08/05/2021 Covid-19, Mrna, Lnp-s, Pf, B ivalent, 30 Mcg, IM, 12 yrs and above ([employer]) 09/09/2022 Hepatitis B, 20+ yrs 08/25/2017 Meningococcal [...] encounter Miscellaneous Notes * Telephone Encounter - Yesenia Holloway PA-C [...] 9:20 AM EDT Office Visit Family Practice [facility] [address] [place] [address] Antonio Colon MD [address] [place] [address] 04/20/2024 6:10 PM EDT Pharmacy Pharmacy, [facility] [address] [place] [address] [facility] [address] [place] [address] 04/27/2024 11:00 AM EDT PulmDiagnostic Pulmonary Function Lab, [facility] [address] [place] [address] West, [address] [place] [address] 05/01/2024 8:30 AM EDT Imaging [facility] 2nd Floor Cardiology, [place] [address] [place] [phone] , Excess Time Radiology [address] [place] [address] 05/08/2024 9:00 AM EDT Office Visit Transplant Clinic[address] [place] [address] Lydia Cavazos MD [address] [place] [facility] [place] [address] Zenon Tierney MD [address] [place] [facility] [place] [address] Nurse Isabel Renal Transplant [address] [place] Noni Peters LSW [address] [facility] [place] 05/08/2024 1:00 PM EDT Appointment Vascular Lab [facility] Medicine, [place] [address] [place] [address] 05/08/2024 1:30 PM EDT Laboratory Outpatient Laboratory, [place] [address] [place] [phone] [place] [facility] [address] [place] [address] 05/08/2024 2:30 PM EDT Appointment Radiology, [address] [phone] 05/17/2024 7:15 AM EDT Cardiac Studies Cardiac Studies, [facility] 132 [facility] [place] [address] 05/19/2024 9:30 AM EDT Office Visit Urology Hari Roth [address] [place] [address] Marie Tran PA-C [address] [place] [address] 05/23/2024 10:20 AM EDT Office Visit Nephrology, [facility] [address] [place] [address] Tesfaye Morris MD [address] [place], [place] [address] 06/12/2024 9:30 AM EDT Office Visit Gastroenterology, [facility] [address] [place] [address] Erna Srivastava CRNP [address] [place] [address] 09/19/2024 3:30 PM EST Office Visit Cardiology, [facility] [address] [place] [address] Davy Mota MD [address] [place] [address] Scheduled Procedures Name Priority Associated Diagnoses Date/Ti [...] 06/19/2021, Additional history exists HbA1c 08/04/2024 02/02/2024, 08/01/2023, 08/12/2022, Additional history exists Colonoscopy 01/06/2025 01/07/2024, [...] Healthcare Agent Relationshi p Communication Lorin Silvestre [facility] Health Care Repr esentative (appointed verbally by patient or by statute hierarchy) Care Teams Lace Paper Machine Operator Relationship Specialty Start Date End Date Antonio Colon MD [address] [place] [address] PCP - General Family Medicine 02/12/22 documented as of this encounter
--- OUTSIDE RECORDS SUMMARY | 2024-09-21 08:12 | External Medical Summary | Summary of Care ---
Author Name Unknown Organization [facility] Address [address] [place] [address] Phone [phone] Care Team Providers Care Rod Puller Name Role Phone Antonio Colon MD Primary Care Provider [phone] Encounter Details Date Type Department Care Team (Late st Contact Info) Description 04/05/2024 Telephone Vascular Surg [facility] [address] [place] [address] Yesenia Holloway PA-C [address] [place] [address] Allergies No known active allergiesdocumented as of [...] in the morning. Active FreeStyle Carlos 2 [place] Device Use as directed . Use to [...] 4, GFR 15-29 ml/min ([facility]) TAKE 1 CAPSULE (0.5 MCG) BY MOUTH IN THE MORNING. 90 Capsule 5 09/15/2023 Active Metoprolol Succinate ER 25 MG Oral Tablet Extended Release 24 Hour (toPROL XL)Indications:Bayron nary artery disease involving [place] coronary artery of [place] heart without angina pectoris TAKE 1 TABLET BY MOUTH EVERY DAY IN THE MORNING 90 Tablet 3 10/05/2023 Active Prasugrel HCl 10 MG Oral Tablet (Effient)Indication s:Coronary artery disease involving [place] coronary artery of [place] heart without angina pectoris TAKE 1 TABLET BY MOUTH EVERY DAY IN THE MORNING 90 Tablet 3 10/05/2023 Active Atorvastatin Calcium 40 MG Oral Tablet (Lipitor)Indication s:Dyslipidemia, goal LDL below 70 TAKE 1 TABLET BY MOUTH EVERY DAY IN THE MORNING 90 Tablet 3 10/06/2023 Active Juluca 50-25 MG Oral Tablet Take 1 Tablet by mouth daily. 90 Tablet 3 12/01/2023 Active Pen [place] 32G X 4 MM Use as [...] of less than 8.0% ([facility]) Inject 10 Units under the skin in [...] 2.5 mgIndications:ESRD on dialysis ([facility]),Pre-transplant evaluation for ESRD (end stage renal disease) 2.5 mg NEBULIZER PRN 03/24/2024 Acti ve Albuterol Sulfate (Proventil) (5 MG/ML) 0.5% *conc* inhalation solution 2.5 mgIndications:ESRD on dialysis ([facility]),Pre-transplant evaluation for ESRD (end stage renal disease) [...] Dyslipidemia 05/02/2022 Coronary artery disease invo lving [place] coronary artery of [place] heart without angina pectoris 05/02/2022 Type 2 diabetes mellitus wit h hemoglobin A1c goal of less than 8.0% 05/02/2022 Old [place] (myocardial infarction) 05/02/2022 Chronic [...] 30 Mcg, IM, 12 yrs and above ([employer]) 09/09/2022 Hepatitis B, 20+ yrs 08/25/2017 Meningococcal [...] Encounter - Yesenia Holloway PA-C - 04/05/2024 4:11 PM EDT Please schedule and match mapping. Thanks documented in this encounter Plan of Treatment Upcoming Encounters Date Type Department Care Team (Late st Contact Info) Description 04/11/2024 9:20 AM EDT Office Visit Family Practice [facility] 132 [facility] [place] [address] Antonio Colon MD [address] [place] [address] 04/20/2024 6:10 PM EDT Pharmacy Pharmacy, [facility] 132 [facility] [place] [address] [facility] 132 [facility] [place] [address] 04/27/2024 11:00 AM EDT PulmDiagnostic Pulmonary Function Lab, [facility] 132 [facility] [place] [address] West, [address] 132 [facility] [place] [address] 05/01/2024 8:30 AM EDT Imaging [facility] 2nd Floor Cardiology, [address] [place] [phone] Gw, Excess Time Radiology 132 [facility] [place] [address] 05/08/2024 9:00 AM EDT [facility] [address] [place], [place] [phone] Lydia Cavazos MD [address] [place] [address] Zenon Tierney MD [address] [place] [address] Isabel Nurse Renal Transplant [address] [place] [address] Noni Peters, VALIDATION SCIENTIST [address] [place] [address] 05/08/2024 1:00 PM EDT Appointment Vascular Lab [facility], [place] [address] [place] [address] 05/08/2024 1:30 PM EDT Laboratory Outpatient Laboratory, [address] [phone] [place], Lab B1a [address] [place], [place] [phone] 05/08/2024 2:30 PM EDT Appointment Radiology, [address] [phone] 05/17/2024 7:15 AM EDT Cardiac Studies Cardiac Studies, [facility] 132 [place] [address] 05/19/2024 9:30 AM EDT Office Visit Urology Hari Roth [address] [place] [address] Marie Tran PA-C [address] [place] [address] 05/23/2024 10:20 AM EDT Office Visit Nephrology, [facility] [address] [place], [place] [address] Tesfaye Morris MD [address] [place] [address] 06/12/2024 9:30 AM EDT Office Visit Gastroenterology, [facility] 132 [facility] [place] [address] Erna Srivastava CRNP 132 [place] [address] 09/19/2024 3:30 PM EST Office Visit Cardiology, [facility] [address] [place] [address] Davy Mota MD [address] [place] [address] Scheduled Orders Name Type Priority Associated Diagnoses Orde r Schedule VASC PRE OP DIALYSIS ACCESS EVAL - BILAT Medical Imaging Routine ESRD on dialysis (HCC) Pre-transplant evaluation for CKD (chronic kidney disease) Expected: 04/12/2024 (Approximate), Expires: 05/06/2025 Scheduled Procedures Name Priority Associated Diagnoses Date/Ti [...] 06/19/2021, Additional history exists HbA1c 08/04/2024 02/02/2024, 08/2 01/2023, 08/12/2022, Additional history exists Colonoscopy 01/06/2025 01/07/2024, [...] dialysis (HCC)- Primary End stage renal disease Pre-transplant evaluation for CKD (chronic kidney disease) Other specified pre-operative examination documented in this encounter Advance Directives * Full Code (Latest Code Status on File) Date Activated Date Inactivated Comments 06/14/2012 6:26 PM 06/17/2012 7:43 PM This order r eflects the patients wishes and were consensually agreed upon. Healthcare Agents on File Name Relationship Healthcare Agent Relationshi p Communication Lorin Silvestre [facility] [place] Health Care Repr esentative (appointed verbally by patient or by statute hierarchy) Care Teams Rod Puller Relationship Specialty Start Date End Date Antonio Colon MD [address] [place] [address] PCP - General Family Medicine 02/12/22 documented as of this encounter
--- OUTSIDE RECORDS SUMMARY | 2024-09-21 08:12 | External Medical Summary | Summary of Care ---
Author Name Unknown Organization [facility] Address [address] [place] [address] Phone [phone] Care Team Providers Care Importer Exporter Name Role Phone Antonio Colon MD Primary Care Provider [phone] Reason for Referral * Evaluate & Treat - Unlimited Visits (Within 3 days (urgent)) - Authorized Specialty Diagnoses / Procedures Referred By Contact Referred To Contact Vascular Surgery / Cardiovascular Surgery Diagnoses ESRD on dialysis (HCC) Tesfaye Morris MD [address] [address] [address] [phone] Referral ID Status Reason Start Date Expiration Date Visits Requested Visits Authorized [id number] Authorized Specialty Services Required 04/05/2024 999 999 Question Answer Referral Priority Within 3 days (urgent) Where should this appointment be scheduled? [facility] What condition is the patient being seen for? Dialysis access Comments For AVF placement Reason for Visit * Reason Onset Date Comments Referral 04/05/2024 Encounter Details Date Type Department Care Team (Late st Contact Info) Description 04/05/2024 Telephone Nephrology, Madeline Snider [address] [place] [address] Tesfaye Morris MD [address] [place] [address] Referral Allergies No known active allergiesdocumented as of [...] in the morning. Active FreeStyle Carlos 2 [place] Device Use as directed . Use to test BG E10.65 1 Each 02/13/2022 Active FreeStyle Carlos 2 Sensor Use as directed . Use one sensor every 14 days for blood sugar E10.65 1 Each 02/13/2022 Active Vitamin D-3 25 MCG (1000 UT) Oral Capsule Take 1 Capsule by mouth in the morning. Active Basaglar KwikPen 100 UNIT/ML Subcutaneous Solution Pen-injector (Insulin Glargine Solostar) INJECT UNDER THE SKIN 22 UNITS IN THE MORNING. 30 mL 1 04/29/2023 Active Calcitriol 0.5 MCG Oral Capsule (Rocaltrol)Indicati ons:CKD (chronic kidney disease) stage 4, GFR 15-29 ml/min ([facility]) TAKE 1 CAPSULE (0.5 MCG) BY MOUTH IN THE MORNING. 90 Capsule 5 09/15/2023 Active Metoprolol Succinate ER 25 MG Oral Tablet Extended Release 24 Hour (toPROL XL)Indications:Bayron nary artery disease involving [place] coronary artery of [place] heart without angina pectoris TAKE 1 TABLET BY MOUTH EVERY DAY IN THE MORNING 90 Tablet 3 10/05/2023 Active Prasugrel HCl 10 MG Oral Tablet (Effient)Indication s:Coronary artery disease involving [place] coronary artery of [place] heart without angina pectoris TAKE 1 TABLET BY MOUTH EVERY DAY IN THE MORNING 90 Tablet 3 10/05/2023 Active Atorvastatin Calcium 40 MG Oral Tablet (Lipitor)Indication s:Dyslipidemia, goal LDL below 70 TAKE 1 TABLET BY MOUTH EVERY DAY IN THE MORNING 90 Tablet 3 10/06/2023 Active Juluca 50-25 MG Oral Tablet Take 1 Tablet by mouth daily. 90 Tablet 3 12/01/2023 Active Pen [place] 32G X 4 MM Use as directed. [...] hemoglobin A1c goal of less than 8.0% ([facility]) Inject 10 Units under the skin [...] myocardial infarction involving left circumflex coronary artery ([facility]) TAKE 1 CAPSULE BY MOUTH EVERY DAY [...] 0.083% inhalation solution 2.5 mgIndications:ESRD on dialysis ([facility]),Pre-transplant evaluation for ESRD (end stage renal disease) 2.5 mg NEBULIZER PRN 03/24/2024 Acti ve Albuterol Sulfate (Proventil) (5 MG/ML) 0.5% *conc* inhalation solution 2.5 mgIndications:ESRD on dialysis ([facility]),Pre-transplant evaluation for ESRD (end stage renal [...] Coronary artery disease invo lving [place] coronary artery of [place] heart without angina pectoris 05/02/2022 Type 2 diabetes mellitus wit h hemoglobin A1c goal of less than 8.0% 05/02/2022 [place] (myocardial infarction) 05/02/2022 Chronic [...] 30 Mcg, IM, 12 yrs and above ([employer]) 09/09/2022 Hepatitis B, 20+ yrs 08/25/2017 Meningococcal [...] encounter Miscellaneous Notes * Telephone Encounter - Olga Goins LPN - 04/05/2024 3:[address] Simmons Please place referral for [facility] Vascular surgery for AVF placement Stat Order placed in [employer] system Per Dr Morris Pt is aware documented in this encounter Plan of Treatment Upcoming Encounters Date Type Department Care Team (Late st Contact Info) Description 04/11/2024 9:20 AM EDT Office Visit Family Practice [facility] [address] [address] Antonio Colon MD [address] [address] 04/20/2024 6:10 PM EDT Pharmacy Pharmacy, [facility] [address] [address] [facility] [address] [address] 04/27/2024 11:00 AM EDT PulmDiagnostic Pulmonary Function Lab, [facility] [address] [address] [place], [address] [facility] [place] [place] [address] 05/01/2024 8:30 AM EDT Imaging [facility] 2nd Floor Cardiology, [place] [address] [facility] [address] [place] [phone] Gw, Excess Time Radiology 132 [facility] [place] [place] [address] 05/08/2024 9:00 AM EDT Office Visit Transplant Clinic, [place] [address] [place] [address] Lydia Cavazos MD [address], [place] [id number] Zenon Tierney MD [address] [place] [address] Nurse [facility] [address] [place] [address] Noni Peters LSW [address] [place] [address] 05/08/2024 1:00 PM EDT Appointment Vascular Lab [facility], [place] [address] [place] [address] 05/08/2024 1:30 PM EDT Laboratory Outpatient Laboratory, [place] [address] [place] [phone] [place] [facility] B1a [address] [place] [address] 05/08/2024 2:30 PM EDT Appointment Radiology, [address] [phone] 05/17/2024 7:15 AM EDT Cardiac Studies Cardiac Studies, [facility] [address] [facility] [place] [address] 05/19/2024 9:30 AM EDT Office Visit Urology Hari Roth [address] [address] Marie Tran PA-C [address] [place] [address] 05/23/2024 10:20 AM EDT Office Visit Nephrology, [facility] [address] [address] Tesfaye Morris MD [address] [place] [address] 06/12/2024 9:30 AM EDT Office Visit Gastroenterology, [facility] [address] [facility] [place] [address] Erna Srivastava CRNP 132 [facility] [place] [address] 09/19/2024 3:30 PM EST Office Visit Cardiology, [facility] [address] [facility] [place] [address] Davy Mota MD 132 [facility] [place] [address] Scheduled Procedures Name Priority Associated Diagnoses Date/Ti [...] Healthcare Agent Relationshi p Communication Lorin Silvestre [facility] Care Repr esentative (appointed verbally by patient or by statute hierarchy) Care Teams Importer Exporter Relationship Specialty Start Date End Date Antonio Colon MD [address] [address] PCP - General Family Medicine 02/12/22 documented as of this encounter
--- OUTSIDE RECORDS SUMMARY | 2024-09-21 08:12 | External Medical Summary | Summary of Care ---
Author Name Unknown Organization [facility] Address [address] [place] [address] Phone [phone] Care Team Providers Care Animal Control Supervisor Name Role Phone Antonio Colon MD Primary Care Provider [phone] Reason for Visit * Reason Onset Date Comments TRIAGE 04/05/2024 3 day Encounter Details Date Type Department Care Team (Late st Contact Info) Description 04/05/2024 Telephone Access Center, [place] [address] [facility] *DO NOT REMOVE THIS DEPARTMENT* [place] [address] Services, Scheduling [address] [place] [address] TRIAGE (3 day) Allergies No known active [...] in the morning. Active FreeStyle Carlos 2 [place] Device Use as directed . Use to [...] kidney disease) stage 4, GFR 15-29 ml/min ([facility]) TAKE 1 CAPSULE (0.5 MCG) BY MOUTH IN THE MORNING. 90 Capsule 5 09/15/2023 Active Metoprolol Succinate ER 25 MG Oral Tablet Extended Release 24 Hour (toPROL XL)Indications:Bayron nary artery disease involving [place] coronary artery of [place] heart without angina pectoris TAKE 1 TABLET BY MOUTH EVERY DAY IN THE MORNING 90 Tablet 3 10/05/2023 Active Prasugrel HCl 10 MG Oral Tablet (Effient)Indication s:Coronary artery disease involving [place] coronary artery of [place] heart without angina pectoris TAKE 1 TABLET BY MOUTH EVERY DAY IN THE MORNING 90 Tablet 3 10/05/2023 Active Atorvastatin Calcium 40 MG Oral Tablet (Lipitor)Indication s:Dyslipidemia, goal LDL below 70 TAKE 1 TABLET BY MOUTH EVERY DAY IN THE MORNING 90 Tablet 3 10/06/2023 Active Juluca 50-25 MG Oral Tablet Take 1 Tablet by mouth daily. 90 Tablet 3 12/01/2023 Active Pen [place] 32G X 4 MM Use as directed. [...] Dyslipidemia 05/02/2022 Coronary artery disease invo lving [place] coronary artery of [place] heart without angina pectoris 05/02/2022 Type 2 [...] 30 Mcg, IM, 12 yrs and above ([employer]) 09/09/2022 Hepatitis B, 20+ yrs 08/25/2017 Meningococcal [...] 9:20 AM EDT Office Visit Family Practice [facility] [address] [address] Antonio Colon MD [address] [address] 04/20/2024 6:10 PM EDT Pharmacy Pharmacy, [facility] [address] [address] [facility] [address] [place] [address] 04/27/2024 11:00 AM EDT PulmDiagnostic Pulmonary Function Lab, [facility] [address] [address] [place], [address] [place] [place] [address] 05/01/2024 8:30 AM EDT Imaging [facility] 2nd Floor Cardiology, [place] [address] [phone] , Excess Time Radiology [address] [address] 05/08/2024 9:00 AM EDT Office Visit [facility] Clinic[address] [place] [address] Lydia Cavazos MD [address] [place] [facility] [place] [address] Zenon Tierney MD [address] [place] [facility] [place] [address] Nurse [facility] [address] [place], [place] Noni Peters LSW [address] [facility], [place] 05/08/2024 1:00 PM EDT Appointment Vascular Lab [facility], [place] [address] [place] [address] 05/08/2024 1:30 PM EDT Laboratory Outpatient Laboratory, [place] [address] [place] [phone] [place] [facility] B1a [address] [place] [address] 05/08/2024 2:30 PM EDT Appointment Radiology, [address] [phone] 05/17/2024 7:15 AM EDT Cardiac Studies Cardiac Studies, [facility] [address] [facility] [place] [address] 05/19/2024 9:30 AM EDT Office Visit Urology Hari Roth [address] [address] Marie Tran PA-C [address] [address] 05/23/2024 10:20 AM EDT Office Visit Nephrology, [facility] [address] [place] [address] Tesfaye Morris MD [address] [place], [place] [address] 06/12/2024 9:30 AM EDT Office Visit Gastroenterology, [facility] [address] [address] Erna Srivastava CRNP [address] [place] [address] 09/19/2024 3:30 PM EST Office Visit Cardiology, [facility] [address] [place] [address] Davy Mota MD [address] [place] [address] Scheduled Procedures Name Priority Associated Diagnoses Date/Ti [...] patient or by statute hierarchy) Care Teams Animal Control Supervisor Relationship Specialty Start Date End Date Antonio Colon MD [address] [address] PCP - General Family Medicine 02/12/22 documented as of this encounter
--- NOTE | 2024-09-21 08:28 | XRay Report ---
EXAM: XR KUB/Abdomen 1 view CLINICAL HISTORY: CHEST/ABD PAIN. TECHNIQUE: X-ray images of the abdomen were obtained in frontal projection. COMPARISON: No prior studies are available for comparison. FINDINGS: Gas Pattern: Gastric distension by gas seen No evidence of small or large bowel obstruction or distention. Soft Tissues: Soft tissues of the abdomen appear normal without evidence of masses or calcifications. Liver, spleen, and kidneys are of normal size and position. Right hypochondriac surgical clips seen IMPRESSION: 1. Gastric distension by gas seen. 2. Right hypochondriac surgical clips seen. OBX.5.1OBX.5.1.13. Advised for clinical correlation and further work-up if clinically warranted (CT study of abdomen /OBX.5.1.1OBX.5.1.2 Pelvis)./OBX.5.1.2/OBX.5.1 Electronically signed by Jama Garcia 09-21-2024 08:27 AM
[2024-09-21 08:29] LABS: Albumin Globulin Ratio 1.6 (0.9-2); Albumin Level 4.6 gm/dl (3.4-5.0); BUN Creatinine Ratio 18.9 (10-20); Bilirubin,Total 0.9 mg/dl (0.2-1.0); Calcium 9.6 mg/dl (8.6-10.3); Creatinine Clr Calc Pharmacy 21.3 ml/min; Globulin 2.8 gm/dl (2.5-4.0); Magnesium 2.4 mg/dl (1.7-2.4); Potassium 4.1 mmol/L (3.5-5.1); Total Protein 7.4 gm/dl (6.0-8.3)
[2024-09-21 08:35] LABS: Troponin I High Sensitivity 19.7 pg/ml (0-20)
--- NOTE | 2024-09-21 08:36 | XRay Report ---
EXAM: XR chest 1V portable CLINICAL HISTORY: CHEST/ABD PAIN JMT TECHNIQUE: An X-ray image of the chest is obtained in frontal projection. COMPARISON: No prior studies are available for comparison. FINDINGS: Right central vascular access with its tip reaching the right side of the heart, possibly at right atrium. Elevated left copula of the diaphragm with underlying marked gastric distension. Pulmonary Parenchyma: Prominent bronchovascular markings bilateral and hilar vessels, advised for clinical correlation. No evidence of consolidation, collapse, or focal opacities. No pulmonary nodules are identified. No evidence of pleural effusion or pleural thickening. Heart and Mediastinum: Apparent cardiomegaly with dilated unfolded aorta. No mediastinal widening or masses. No hilar or mediastinal lymphadenopathy. Bony Thorax: Bony thorax appears intact without fractures or deformities. Soft Tissues: Soft tissues overlying the chest wall are unremarkable. IMPRESSION: 1. Right central vascular access with its tip reaching the the right side of the heart, possibly at right atrium. 2. Elevated left copula of the diaphragm with underlying marked gastric distension. 3. Prominent bronchovascular markings bilateral and hilar vessels, advised for clinical correlation. 4. Apparent cardiomegaly with dilated unfolded aorta. Electronically signed by Jama Garcia 09-21-2024 08:35 AM
--- NOTE | 2024-09-21 08:41 | Electrocardiogram Report ---
Test Reason : Blood Pressure : */* mmHG Vent. Rate : 93 BPM Atrial Rate : 93 BPM P-R Int : 196 ms QRS Dur : 164 ms QT Int : 420 ms P-R-T Axes : 70 -35 117 degrees QTcB Int : 522 ms Sinus rhythm with occasional Premature ventricular complexes Left axis deviation Left bundle branch block Abnormal ECG When compared with ECG of 23-Jan-2024 15:46, Premature ventricular complexes are now Present Confirmed by Antonio Archer ([id number]) on 09/21/2024 8:40:57 AM Referred By: Confirmed By: Antonio Archer
[2024-09-21 08:42] LABS: Partial Thromboplastin Ratio 1.1; Partial Thromboplastin Time 29 Seconds (21-31); Prothrombin Time 10.9 Seconds (9.0-12.0)
--- NOTE | 2024-09-21 09:08 | CT Scan Report ---
CT chest diagnostic wo con CT DOSE: 1318.65 mGy.cm CLINICAL HISTORY: Chest pain. TECHNIQUE: Multiaxial CT images of the chest were performed without contrast. A dose lowering techni que was utilized adhering to the principles of ALARA. COMPARISON STUDY: Chest x-ray earlier today FINDINGS: Stable dialysis catheter. Stable mild elevation of the left hemidiaphragm. There is no pulm onary consolidation or pleural effusion. No pneumothorax. There are a few scattered calcified pulmona ry granuloma and there are left hilar lymph node calcifications consistent with prior granulomatous d isease. No enlarged adenopathy in the chest. No mediastinal hematoma. No pericardial effusion. There are severe coronary artery calcifications. There is distention of the visualized upper stomach with f luid and gas. There are mild thoracic spine degenerative changes. No acute osseous findings. IMPRESSION: No acute findings. Otherwise described. ACT 112: Negative or not required by law. Electronically signed by: Bandar Thacker M.D. 09/21/2024 9:06 AM
[2024-09-21 09:11] LABS: Adenovirus PCR Not Detected (NotDetected); Bordetella parapertussis PCR Not Detected (NotDetected); Bordetella pertussis PCR Not Detected (NotDetected); Chlamydia pneumoniae PCR Not Detected (NotDetected); Coronavirus 229E PCR Not Detected (NotDetected); Coronavirus CoV-2 (COVID19)PCR Not Detected (NotDetected); Coronavirus HKU1 PCR Not Detected (NotDetected); Coronavirus NL63 PCR Not Detected (NotDetected); Coronavirus OC43PCR Not Detected (NotDetected); Human Metapneumovirus PCR Not Detected (NotDetected); Influenza A PCR Not Detected (NotDetected); Influenza B PCR Not Detected (NotDetected); Mycoplasma pneumoniae PCR Not Detected (NotDetected); Parainfluenza Virus 1 PCR Not Detected (NotDetected); Parainfluenza Virus 2 PCR Not Detected (NotDetected); Parainfluenza Virus 3 PCR Not Detected (NotDetected); Parainfluenza Virus 4 PCR Not Detected (NotDetected); Respiratory Syncytial VirusPCR Not Detected (NotDetected); Rhinovirus/Enterovirus PCR Not Detected (NotDetected)
--- NOTE | 2024-09-21 09:24 | CT Scan Report ---
CT OF THE ABDOMEN AND PELVIS WITHOUT CONTRAST CLINICAL HISTORY: Abdominal pain. COMPARISON STUDY: CT of the abdomen and pelvis March 09, 2024. KUB performed earlier today. TECHNIQUE: Axial images of the abdomen and pelvis were obtained without IV contrast. Images were revi ewed in the axial, sagittal, and coronal planes. Automated exposure control was utilized for the deniz dy. A dose lowering technique was utilized adhering to the principles of ALARA. FINDINGS: No pneumatosis, free air or portal venous gas is present. Mild biliary ductal dilatation is unchanged and likely related to cholecystectomy. No hepatic lesions are identified on unenhanced exa m. Mild splenomegaly is unchanged. No renal, ureteral or bladder calculi are present. There is no hyd ronephrosis. Water attenuation bilateral renal lesions are suboptimally assessed on unenhanced exam b ut favor cysts. Small subcentimeter hypodense right lower pole renal lesion is indeterminate but may represent a hyperdense cyst. There is mild wall thickening at the gastric esophageal junction with ad jacent stranding. There is no extraluminal gas. Prominent gastrohepatic ligament lymph nodes measure up to 2 x 0.8 cm. The stomach is mildly distended fluid-filled. Multiple pancreatic parenchymal calci fications are again noted. Mild pancreatic ductal dilatation is similar to prior CT. There are severa l suspected intraductal calculi which measure up to 1.1 x 0.5 cm. No peripancreatic stranding is note d. Mesenteric stranding is similar to prior exam. Associated prominent mesenteric lymph nodes are unc hanged. Index node on image 155 measures 1.1 x 0.7 cm. Tethered appearance of the mesentery and proxi mal duodenum is unchanged. Upper abdominal collaterals are again noted. Narrowing of the portosplenic confluence is suboptimally assessed on unenhanced exam. There is no evidence for a bowel obstruction . Colonic diverticulosis without evidence for acute diverticulitis. No pelvic lymphadenopathy is pres ent. IMPRESSION: 1. Moderate wall thickening at the GE junction with adjacent stranding. This favors esophagitis/gastr itis. No extraluminal gas. Prominent adjacent lymph nodes may be reactive and can be assessed on foll ow-up studies. Imaging follow-up to ensure resolution and exclude the possibility of an underlying le elena is recommended. Alternately, endoscopy could be performed. 2. No evidence for a bowel obstruction. Colonic diverticulosis. No evidence for acute diverticulitis. 3. Findings consistent with chronic pancreatitis. Multiple pancreatic parenchymal calcifications as w ell as suspected intraductal calculi. No evidence for acute pancreatitis. 4. Tethered appearance of the proximal duodenum and mesentery with narrowing of the portosplenic conf luence with associated collateral formation. These findings are suboptimally assessed on unenhanced e xam but similar to prior CT and may be chronic. These may reflect the sequela of chronic pancreatitis . However, a follow-up CT of the abdomen in 3 months to ensure continued stability and exclude the po ssibility of an underlying neoplastic process is recommended. ACT 112: Positive. There are findings on this exam that require communication between the performing entity and the patient following Patient Test Result Information Act ([place] Act 112) guidelines. Electronically signed by: Igor Roberts M.D. 09/21/2024 9:22 AM
[2024-09-21] MEDS: ALUMINUM/MAGNESIUM SUSP 30 ML UDC PO STA (10:23)
[2024-09-21] MEDS ORDERED: POLYETHYLENE (MIRALAX) 17 GM PACK PO PRN (11:39)
[2024-09-21] MEDS ORDERED: ONDANSETRON INJ 2 MG/ML 2 ML VIAL IV PRN (11:39)
[2024-09-21] MEDS ORDERED: MAGNESIUM HYDROXIDE SUSP 30 ML UDC PO PRN (11:39)
--- NOTE | 2024-09-21 11:47 | History & Physical Report ---
Date of Service September 21, 2024 Assessment & Plan (1) ESRD (end stage renal disease) on dialysis: (2) HIV (human immunodeficiency virus infection): (3) Hypertension: (4) DM type 2 (diabetes mellitus, type 2): (5) Prolonged QT interval: (6) CAD (coronary artery disease): (7) Lymphadenopathy: Plan 69 year old male here with ESRD on HD with a possibly malfunctioning dialysis port, exertional chest pain/SOB and esophagitis/gastritis symptoms. Complex medical history that includes: HIV, HFpEF (EF 65-70%, ECHO 01/04), CAD status post stent (2017), chronic LBBB, HTN, HLD, HIV on Rx for many years, insulin dependent diabetes, H/O pancreatitis, history of kidney stones in the past, history colonic polyps/internal hemorrhoids, anal HGSIL as per records, urolithiasis, mood disorder, past tobacco and alcohol abuse. Will admit for HD with close following with Nephro, possible vascular involvement, will repeat ECHO and monitor EKG changes, trend troponin to ensure his symptoms are not cardiac in nature, and involve GI for management of esophagitis and gastritis. Will hold juluca and obtain daily EKG to monitor prolonged QTc. Suspect there may be more complexity with this individual given his recent weight loss and nodule findings on imaging. ESRD on HD: Started HD in December 2023; T/R/Sa; recently missed a few treatments due to illness Port was placed in December, had revision in 09/05 at [facility]. Follows at [place] for possible transplant. Creatinine 3.18; baseline 3-4 Does not appear volume overloaded; if anything more dry due to recent weight loss Consult Nephrology; Dr. Morris will determine functionality during HD today and will consult Vascular based on Nephro recommendations. Esophagitis/Gastritis: GERD: KUB done; no masses; gas distension CTAP: moderate wall thickening at the GE junction with adjacent stranding. This favors esophagitis/gastritis. No extraluminal gas. Prominent adjacent lymph nodes may be reactive and can be assessed on follow-up studies. Imaging follow- up to ensure resolution and exclude the possibility of an underlying lesion is recommended. Alternately, endoscopy could be performed. No evidence for a bowel obstruction. Colonic diverticulosis. No evidence for acute diverticulitis. Findings consistent with chronic pancreatitis. Multiple pancreatic parenchymal calcifications as well as suspected intraductal calculi. No evidence for acute pancreatitis. Tethered appearance of the proximal duodenum and mesentery with narrowing of the portosplenic confluence with associated collateral formation. These findings are suboptimally assessed on unenhanced exam but similar to prior CT and may be chronic. These may reflect the sequela of chronic pancreatitis. However, a follow-up CT of the abdomen in 3 months to ensure continued stability and exclude the possibility of an underlying neoplastic process is recommended. Avoid Zofran given prolonged QTc Takes Protonix; will convert to IV BID Will add Sucralfate PO QID Re-involve GI Chest pain with exertion: Prolonged QTc: LBBB: PVC's Received Morphine 4 mg IV in ED with relief Most recent ECHO EF65-70%, Repeat ECHO EKG today, known LBBB; prolonged QTc 522 (his HIV tx; Juluca, can cause this; will hold for now) with occasional PVC'; daily EKG Follows with Outpatient Cardiology (Dr. Mota) last appt 03/06. Had an exercise stress in January 2023 with a mildly reduced EF 45-49% with posterior wall abnormality with hypokenesis akinesis, GIDDx. outpatient nuclear stress test in April 2024 which revealed old inferior wall IL with scar but no inducible ischemia Avoid QTc prolonging medications Mg+ 2.4 Cardiology consultation placed HIV: Chronic, stable Takes Juluca; will hold for now as this could be contributing to his prolonged QTc admits to missing his medication intermittently Most recent CD4 571 and VL 133 in 02/2024 He has refused STD testing in the past Follows with Infectious Disease [facility] Lymphadenopathy: Abdomen and Pelvis CT today: Prominent adjacent lymph nodes may be reactive and can be assessed on follow-up studies. Imaging follow-up to ensure resolution and exclude the possibility of an underlying lesion is recommended. HTN: Chronic stable Takes Metoprolol and Nifedipine; continue HLD: Chronic Stable Takes atorvastatin;continue IDDM2: Chronic Stable Takes novolog and Lantus (10 units QAM) Last A1C 01/04: 8.8; recheck while here Glycemic pharmacy consult CAD: Chronic stable S/P stent 2018 Last ECHO 01/04: EF 65-70%, takes baby ASA and Prasugrel; continue L humerus fracture: mechanical fall on 09/07; slipped onblack ice Left humerus fracture with < 1 cm displacement Follows with Ortho and PT as outpatient Has prescribed sling; noncompliant with it Disposition: PCP: Dr. Colon Code Status: Full Code VTE Prophylaxis: On Prasugrel I spent a total of 82 minutes coordinating, documenting, and providing care for this patient excluding time spent in the performance of separately billed services. All of the aforementioned completed while collaborating with the assigned attending physician for a full treatment plan. Please see their addendum for further details. History of Present Illness Chief Complaint: poorly tolerated HD/ port malfunction Primary Care Provider: Antonio Colon MD Mr. Silvestre is a 69 year old male with ESRD on HD presented to the [facility] ED from hemodialysis. Patient has been having challenges with his port during dialysis and today was only able to complete one hour worth of HD. He recently had a port revision in August 2024. Separately, he said that he missed two HD sessions (Wednesday and Wednesday) because he was feeling ill. He states that he has not felt well since Friday 09/15. He reports anterior chest pain and abdominal discomfort with vomiting and acid reflux tasting in his mouth. He also states that he has unintentionally lost about 8lbs over the past few weeks and feels short of breath with ambulation and exercise; that resolves at rest. He also, unfortunately sustained a fall delivering holiday dinner to his family where he slipped and fell on ice; fracturing his left humerus with < 1 cm displacement; being managed conservatively and he is following with Orthopedics and is to be wearing a sling. Additional PMH includes: HFpEF (EF 65-70%, ECHO 01/04), CAD status post stent (2017), chronic LBBB, HTN, HLD, HIV on Rx for many years, insulin dependent diabetes, H/O pancreatitis, history of kidney stones in the past, history colonic polyps/internal hemorrhoids, anal HGSIL as per records, urolithiasis, mood disorder, past tobacco and alcohol abuse. Had an exercise stress in January 2023 with a mildly reduced EF 45-49% with posterior wall abnormality with hypokenesis akinesis, GIDDx. Per review of most recent ECHO, his EF has improved. Abdomen and Pelvis CT: revealed moderate wall thickening at the GE junction with adjacent stranding. This favors esophagitis/gastritis. No extraluminal gas. Prominent adjacent lymph nodes may be reactive and can be assessed on follow-up studies. Imaging follow-up to ensure resolution and exclude the possibility of an underlying lesion is recommended. Alternately, endoscopy could be performed. No evidence for a bowel obstruction. Colonic diverticulosis. No evidence for acute diverticulitis. Findings consistent with chronic pancreatitis. Multiple pancreatic parenchymal calcifications as well as suspected intraductal calculi. No evidence for acute pancreatitis. Tethered appearance of the proximal duodenum and mesentery with narrowing of the portosplenic confluence with associated collateral formation. These findings are suboptimally assessed on unenhanced exam but similar to prior CT and may be chronic. These may reflect the sequela of chronic pancreatitis. However, a follow-up CT of the abdomen in 3 months to ensure continued stability and exclude the possibility of an underlying neoplastic process is recommended. A KUB was performed without evidence of masses of calcifications; gastric distension caused by gas. No leukocytosis, mild hyponatremia likely secondary to, creatinine 3.18; baseline is 3-4; receives hemodialysis T/R/Sa for many years; he has missed a treatment due to illness; he went to HD today and the treatment went poorly; terminating treatment after one hour. His lipase is normal. Biofire negative. Most recent ECHO Recent complex admission 12/31/23-01/14/24 and was followed by a variety of specialists including Nephro, ID, GI and ICU for YASIR in the setting of severe volume depletion from diarrhea; he also underwent a ureteric stent placement (12/31/23) for obstructive uropathy and he also was in the ICU for a brief time as he went into septic shock/metabolic acidosis requiring inotropic support. Last colonoscopy during admission in December showed polyps x 3, which were removed, and diverticulosis. Pt denies lightheadedness, dizziness, SOB, chest pain, N/V/D, recent falls or trauma. Denies tobacco or alcohol use. On examination, he is AAOx3 and able to hold full meaningful conversation. He does not have any adventitious lung sounds and no edema. S1S2 auscultated. No edema. Patient seen in collaboration with Dr. Waggoner. Patient will be admitted for numerous medical conditions includin. further evaluation for his ESRD and port access. We will involve Nephrology and possibly vascular 2. Prolongation of QTc, exertional chest pain and SOB: Given cardiac history; with a repeat ECHO, trend Trop; hold Juluca as could be contributing to prolongation of QTc ; daily EKG. Involve Cardiology 3. esophagitis/gastritis; check TSH, involve GI and start Carafate short term. May require repeat EGD. Will involve GI. 4. Suspect something more complex may be going on given the lymphadenpathy and recent unintentional weight loss this individual has endured. May require biopsy at some point. Allergies Allergy/AdvReac Type Severity Reaction Status Date / Time No Known Allergies Allergy Verified 09/21/24 09:20 Home Medications Medication Instructions Recorded Confirmed Type atorvastatin 40 mg tablet 40 mg PO QAM 01/06/22 09/21/24 History dolutegravir 50 mg-rilpivirine 25 1 tab PO QAM 01/06/22 09/21/24 History mg tablet (Juluca) fluoxetine 20 mg capsule 20 mg PO QAM 01/06/22 09/21/24 History multivitamin 1 tab PO QAM 01/06/22 09/21/24 History aspirin 81 mg tablet,delayed 81 mg PO QAM 12/30/23 09/21/24 History release cholecalciferol (vitamin D3) 25 25 mcg PO QAM 12/30/23 09/21/24 History mcg (1,000 unit) capsule (Vitamin D3) coenzyme Q10 10 mg capsule (Co 10 mg PO DAILY 12/30/23 09/21/24 History Q-10) metoprolol succinate 25 mg 25 mg PO QAM 12/30/23 09/21/24 History tablet,extended release 24 hr insulin glargine 100 unit/mL (3 10 unit (0.1 mL) subcut QAM #0 mL 01/14/24 09/21/24 Rx mL) subcutaneous pen (Basaglar KwikPen U-100 Insulin) prasugrel 10 mg tablet 10 mg PO QAM #30 tabs 01/14/24 09/21/24 Rx levothyroxine 25 mcg tablet 25 mcg PO QAM 01/23/24 09/21/24 History pantoprazole 40 mg tablet,delayed 40 mg PO BID #60 tabs 01/27/24 09/21/24 Rx release nifedipine 30 mg tablet,extended 30 day PO DAILY ##0 03/20/24 09/21/24 History release insulin aspart 10 unit subcut TIDWMEAL 09/21/24 09/21/24 History (niacinamide)(U-100) 100 unit/mL(3 mL) subcutaneous pen (Fiasp FlexTouch U-100 Insulin) Past Med/Surg History Problem List (Updated 09/21/24 @ 15:33 by Yan Charles PA-C) Gastritis LBBB (left bundle branch block) Lymphadenopathy Prolonged QT interval End stage chronic kidney disease (Acute) Esophagitis (Acute) Chest pain (Acute) Duodenal ulcer Nephrolithiasis Acute blood loss anemia Upper GI bleed ESRD (end stage renal disease) on dialysis Acute GI bleeding (Acute) Hypertension Peripheral neuropathy Subungual hematoma of fourth toe of left foot Septic shock Hydronephrosis concurrent with and due to calculi of kidney and ureter Metabolic acidosis (Acute) Acute dehydration (Acute) Diarrhea (Acute) YASIR (acute kidney injury) (Acute) DM type 2 (diabetes mellitus, type 2) Immunosuppressed status (Acute) HIV (human immunodeficiency virus infection) CKD (chronic kidney disease) stage 4, GFR 15-29 ml/min History of left bundle branch block (LBBB) CAD (coronary artery disease) Acute hyperglycemia (Acute) Syncope (Acute) Medical History History of COVID-19 2020 Hypertension Diabetes mellitus Hx of sepsis hospitalized at [facility] January 2024 Port-A-Cath in place ESRD (end stage renal disease) on dialysis Frensunus in [place] > Tues/ Thurs / Sat History of kidney stones Osteoarthritis Chronic lower back pain History of pancreatitis History of skin cancer [place] (hard of hearing) HLD (hyperlipidemia) History of myocardial infarction 2016 & 2019 Sleep apnea no device Diverticulosis GERD (gastroesophageal reflux disease) IBS (irritable bowel syndrome) Precancerous lesion rectal CAD (coronary artery disease) Per patient, stenting x 5 in 2016 and restenting of 1 vessel performed in July 2020 Depression HIV (human immunodeficiency virus infection) Surgical History History of esophagogastroduodenoscopy (EGD) S/P ureteral stent placement History of removal of ureteral stent History of cystoscopy History of colonoscopy History of cholecystectomy History of cardiac catheterization 2016 - stents 2019 -- restenting x 1. 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: No Beliefs That Will Affect Care: None Current Living Situation: Alone Feels Safe at Home: Yes Assistive Devices: CPAP and Glasses Review of Systems Review of Systems: Neuro: (-) Falls, trauma, slurred speech HEENT: (-) PATRICK, dizziness, dysphagia, visual or auditory changes CV: (-) CP, palpitations, swelling Resp: (+) SOB GI: (+) appetite changes, (-) N/V/D, bowel changes : (-) urinary changes Skin: (-) rashes Psych: (-) anxiety, depression Physical Exam Physical Exam: Neuro: AAOx4, PERRLA, no aphagia, memory changes, CNII-XII grossly intact HEENT: head normocephalic, moist mucus membranes CV: S1/S2, (-) M/G/R, (-) edema, cap refill < 3 seconds Resp: Lungs CTA in all abdalla. On RA GI: Abdomen S/NT/ND, Ax4 bowel sounds, (-) CVA tenderness Musculoskeletal: 5/5 B/L UE strength, 5/5 B/L LE strength. No gait disturbance Skin: (-) rashes , (-) erythema. Psych: euthymic mood Results & Data Results & Data Vital Signs (Past 12 Hours) Vital Signs Temp Pulse Resp BP Pulse Ox O2 Del Method 09/21/24 10:30 94 H 17 124/79 95 09/21/24 10:03 95 H 18 133/81 95 09/21/24 09:30 90 21 116/64 97 09/21/24 09:00 89 27 H 117/77 97 09/21/24 08:33 84 15 125/79 96 09/21/24 08:19 87 09/21/24 08:09 90 18 98 09/21/24 07:50 Room Air 09/21/24 07:39 93 H 18 09/21/24 07:31 98 H 20 100 Room Air 09/21/24 07:29 141/84 H 09/21/24 07:15 36.7 C 98 H 20 108/78 100 Room Air Laboratory Results Short CBC 09/21/24 Range/Units 07:40 WBC 9.75 (4.8-10.8) K/ul Hgb 13.3 L (14.0-18.0) g/dl Hct 39.2 L (42.0-52.0) % Plt Count 365 (130-400) K/uL BMP 09/21/24 07:40 Sodium 131 L Potassium 4.1 Chloride 98 Carbon Dioxide 21 BUN 60 H Creatinine 3.18 H Glucose 280 H Calcium 9.6 Liver Function 09/21/24 Range/Units 07:40 Total Bilirubin 0.9 (0.2-1.0) mg/dl AST 22 (13-39) U/L ALT 19 (7-52) U/L Alkaline Phosphatase 137 H (34-104) U/L Albumin 4.6 (3.4-5.0) gm/dl Diagnostic Findings Chest X-Ray 09/21/24 07:31 EXAM: XR chest 1V portable CLINICAL HISTORY: CHEST/ABD PAIN JMT TECHNIQUE: An X-ray image of the chest is obtained in frontal projection. COMPARISON: No prior studies are available for comparison. FINDINGS: Right central vascular access with its tip reaching the right side of the heart, possibly at right atrium. Elevated left copula of the diaphragm with underlying marked gastric distension. Pulmonary Parenchyma: Prominent bronchovascular markings bilateral and hilar vessels, advised for clinical correlation. No evidence of consolidation, collapse, or focal opacities. No pulmonary nodules are identified. No evidence of pleural effusion or pleural thickening. Heart and Mediastinum: Apparent cardiomegaly with dilated unfolded aorta. No mediastinal widening or masses. No hilar or mediastinal lymphadenopathy. Bony Thorax: Bony thorax appears intact without fractures or deformities. Soft Tissues: Soft tissues overlying the chest wall are unremarkable. IMPRESSION: 1. Right central vascular access with its tip reaching the the right side of the heart, possibly at right atrium. 2. Elevated left copula of the diaphragm with underlying marked gastric distension. 3. Prominent bronchovascular markings bilateral and hilar vessels, advised for clinical correlation. 4. Apparent cardiomegaly with dilated unfolded aorta. Electronically signed by Jama Garcia 09-21-2024 08:35 AM KUB X-Ray 09/21/24 07:31 EXAM: XR KUB/Abdomen 1 view CLINICAL HISTORY: CHEST/ABD PAIN. TECHNIQUE: X-ray images of the abdomen were obtained in frontal projection. COMPARISON: No prior studies are available for comparison. FINDINGS: Gas Pattern: Gastric distension by gas seen No evidence of small or large bowel obstruction or distention. Soft Tissues: Soft tissues of the abdomen appear normal without evidence of masses or calcifications. Liver, spleen, and kidneys are of normal size and position. Right hypochondriac surgical clips seen IMPRESSION: 1. Gastric distension by gas seen. 2. Right hypochondriac surgical clips seen. [id number]. Advised for clinical correlation and further work-up if clinically warranted (CT study of abdomen /[id number].[id number].5.1.2 Pelvis)./OBX.5.1.2/OBX.5.1 Electronically signed by Jama Garcia 09-21-2024 08:27 AM Abdomen/Pelvis CT 09/21/24 08:26 CT OF THE ABDOMEN AND PELVIS WITHOUT CONTRAST CLINICAL HISTORY: Abdominal pain. COMPARISON STUDY: CT of the abdomen and pelvis March 09, 2024. KUB performed earlier today. TECHNIQUE: Axial images of the abdomen and pelvis were obtained without IV contrast. Images were reviewed in the axial, sagittal, and coronal planes. Automated exposure control was utilized for the study. A dose lowering technique was utilized adhering to the principles of ALARA. FINDINGS: No pneumatosis, free air or portal venous gas is present. Mild biliary ductal dilatation is unchanged and likely related to cholecystectomy. No hepatic lesions are identified on unenhanced exam. Mild splenomegaly is unchanged. No renal, ureteral or bladder calculi are present. There is no hydronephrosis. Water attenuation bilateral renal lesions are suboptimally assessed on unenhanced exam but favor cysts. Small subcentimeter hypodense right lower pole renal lesion is indeterminate but may represent a hyperdense cyst. There is mild wall thickening at the gastric esophageal junction with adjacent stranding. There is no extraluminal gas. Prominent gastrohepatic ligament lymph nodes measure up to 2 x 0.8 cm. The stomach is mildly distended fluid-filled. Multiple pancreatic parenchymal calcifications are again noted. Mild pancreatic ductal dilatation is similar to prior CT. There are several suspected intraductal calculi which measure up to 1.1 x 0.5 cm. No peripancreatic stranding is noted. Mesenteric stranding is similar to prior exam. Associated prominent mesenteric lymph nodes are unchanged. Index node on image 155 measures 1.1 x 0.7 cm. Tethered appearance of the mesentery and proximal duodenum is unchanged. Upper abdominal collaterals are again noted. Narrowing of the portosplenic confluence is suboptimally assessed on unenhanced exam. There is no evidence for a bowel obstruction. Colonic diverticulosis without evidence for acute diverticulitis. No pelvic lymphadenopathy is present. IMPRESSION: 1. Moderate wall thickening at the GE junction with adjacent stranding. This favors esophagitis/gastritis. No extraluminal gas. Prominent adjacent lymph nodes may be reactive and can be assessed on follow-up studies. Imaging follow- up to ensure resolution and exclude the possibility of an underlying lesion is recommended. Alternately, endoscopy could be performed. 2. No evidence for a bowel obstruction. Colonic diverticulosis. No evidence for acute diverticulitis. 3. Findings consistent with chronic pancreatitis. Multiple pancreatic parenchymal calcifications as well as suspected intraductal calculi. No evidence for acute pancreatitis. 4. Tethered appearance of the proximal duodenum and mesentery with narrowing of the portosplenic confluence with associated collateral formation. These findings are suboptimally assessed on unenhanced exam but similar to prior CT and may be chronic. These may reflect the sequela of chronic pancreatitis. However, a follow-up CT of the abdomen in 3 months to ensure continued stability and exclude the possibility of an underlying neoplastic process is recommended. ACT 112: Positive. There are findings on this exam that require communication between the performing entity and the patient following Patient Test Result Information Act ([place] Act 112) guidelines. Electronically signed by: Igor Roberts M.D. 09/21/2024 9:[address] 09/21/24 08:26 CT chest diagnostic wo con CT DOSE: 1318.65 mGy.cm CLINICAL HISTORY: Chest pain. TECHNIQUE: Multiaxial CT images of the chest were performed without contrast. A dose lowering technique was utilized adhering to the principles of ALARA. COMPARISON STUDY: Chest x-ray earlier today FINDINGS: Stable dialysis catheter. Stable mild elevation of the left hemidi aphragm. There is no pulmonary consolidation or pleural effusion. No pneumothorax. There are a few scattered calcified pulmonary granuloma and there are left hilar lymph node calcifications consistent with prior granulomatous disease. No enlarged adenopathy in the chest. No mediastinal hematoma. No pericardial effusion. There are severe coronary artery calcifications. There is distention of the visualized upper stomach with fluid and gas. There are mild thoracic spine degenerative changes. No acute osseous findings. IMPRESSION: No acute findings. Otherwise described. ACT 112: Negative or not required by law. Electronically signed by: Bandar Thacker M.D. 09/21/2024 9:06 AM Code Status & VTE Plan Code Status Full code in the event of cardiac or respiratory arrest VTE Prophylaxis Plan VTE Prophylaxis will be ordered: Yes Supervising Physician Co-Signing Physician Notes Attending Addendum: Case reviewed with the advanced practitioner. I have personally performed a history and physical examination on the patient. I have reviewed the advanced practitioner's documentation on the date of service referenced in note, and I agree with, and take responsibility for the plan of care. please refer to her notes for full details patient seen and examined, records reviewed by myself as well on exam, patient seen resting in bed, not in distress, conversant still having intermittent epigastric/substernal pain but no active nausea, dizziness, palpitations, etc no other symptoms VS noted and reviewed oriented x3, not in distress, speaks in sentences with no effort nor accessory muscle use normal rate, regular rhythm, no murmurs clear breath sounds bilaterally non distended, soft, nontender no bipedal edema, erythema, warmth no neuro deficits all labs, imaging noted and reviewed ASSESSMENT AND PLAN> MALFUNCTIONING DIALYSIS CATHETER noted as outpatient HD session today had to be halted after 1.5 hours Vascular surgery consulted CHEST PAIN LIKELY FROM ESOPHAGITIS/GASTRITIS PROMINENT LYMPH NODES GE JUNCTION TETHERED APPEARANCE OF PROXIMAL DUODEDUM s/p EGD 04/05, showing duodenal ulcer already on Protonix 40mg BID at home CT abd/pelvis: 1. Moderate wall thickening at the GE junction with adjacent stranding. This favors esophagitis/gastritis. No extraluminal gas. Prominent adjacent lymph nodes may be reactive and can be assessed on follow-up studies. Imaging follow- up to ensure resolution and exclude the possibility of an underlying lesion is recommended. Alternately, endoscopy could be performed. 2. No evidence for a bowel obstruction. Colonic diverticulosis. No evidence for acute diverticulitis. 3. Findings consistent with chronic pancreatitis. Multiple pancreatic parenchymal calcifications as well as suspected intraductal calculi. No evidence for acute pancreatitis. 4. Tethered appearance of the proximal duodenum and mesentery with narrowing of the portosplenic confluence with associated collateral formation. These findings are suboptimally assessed on unenhanced exam but similar to prior CT and may be chronic. These may reflect the sequela of chronic pancreatitis. However, a follow-up CT of the abdomen in 3 months to ensure continued stability and exclude the possibility of an underlying neoplastic process is recommended. Sucralfate QID added GI consulted for possible EGD repeat CT abd/pelvis in 3 months CHEST PAIN, DYSPNEA ON EXERTION HISTORY OF CAD, STENT Trop negative ekg (+) PVCs, no signs of ischemia echo ordered continue usual Aspirin, Effient, Metoprolol Cardiology consulted GENERALIZED WEAKNESS secondary to above? Biofire negative CT chest no pneumonia no overt signs of infection check TSH, Vit D continue to monitor closely Bryan Waggoner MD (2) HIV (human immunodeficiency virus infection) HIV symptom status: unspecified Qualified Code(s): B20 - Human immunodeficiency virus [HIV] disease (3) Hypertension Hypertension type: unspecified Qualified Code(s): I10 - Essential (primary) hypertension (4) DM type 2 (diabetes mellitus, type 2) Chronic kidney disease stage: on chronic dialysis Diabetes mellitus complication detail: with chronic kidney disease Diabetes mellitus complication status: with kidney complications Diabetes mellitus intermediate accountant insulin use: with intermediate use Qualified Code(s): E11.22 - Type 2 diabetes mellitus with diabetic chronic kidney disease; N18.6 - End stage renal disease; Z79.4 - terminal make up operator (current) use of insulin; Z99.2 - Dependence on renal dialysis (6) CAD (coronary artery disease) Associated angina: unspecified whether angina present Coronary Disease- Associated Artery/Lesion type: [place] artery [place] vs. transplanted heart: [place] heart Qualified Code(s): I25.10 - Atherosclerotic heart disease of [place] coronary artery without angina pectoris
[2024-09-21] MEDS ORDERED: GLUCAGON FOR INJ 1 MG VIAL SQ PRN (12:27)
[2024-09-21] MEDS ORDERED: PHARMACY GLYCEMIC MGMT CONSULT PRN (12:27)
[2024-09-21] MEDS ORDERED: GLUCOSE 40% GEL 15 GM TUBE PO PRN (12:27)
[2024-09-21] MEDS ORDERED: DEXTROSE 50% 50 ML SYRINGE IV PRN (12:27)
[2024-09-21] MEDS ORDERED: CARBOHYDRATES FOR HYPOGLYCEMIA PO PRN (12:27)
[2024-09-21] MEDS ORDERED: GLUCOSE 10 TAB/TUBE PO PRN (12:27)
--- NOTE | 2024-09-21 13:02 | Cardiology Consultation ---
Date of Consultation September 21, 2024 Assessment & Plan (1) Chest pain: (2) Esophagitis: (3) LBBB (left bundle branch block): (4) CAD (coronary artery disease): Plan Patient admitted with epigastric/chest pain x1 week. Esophagitis/gastritis noted on CT of the abdomen with significant gastric distention noted. Also enlarged lymph nodes within the area. He has reproducible "chest pain" in the epigastric region with light palpation to the area. Since arrival, HS troponin negative x1. EKG demonstrated NSR, chronic LBBB. Borderline prolonged QT. Will monitor. Echocardiogram ordered. He has a history of CAD s/p inferior wall LA in 2017 with RCA stent. Recurrent NSTEMI/chest yanet in Jul 2022 with repeat RCA intervention due to restenosis. He has had no recent exertional CP/anginal complaints at home. Symptoms are atypical for cardiac etiology. He had recent negative nuclear stress test in April 2024. Continue ASA and Effient. May hold Effient if vascular procedure/fistula revision is needed OR if endoscopy is also recommended. continue statin Continue metoprolol and nifedipine. Await echo results. Recommend GI evaluation for his current symptoms and findings on CT Scan suggestive of esophagitis/gastritis. Case discussed with Dr. Marie I spent a total of 50 minutes on the date of service in preparation, delivery, and documentation of the care provided to this patient, excluding any time spent in the performance of separately billed services. Rayne Nathan PA-C Department of Cardiology, [facility] This chart was completed in part utilizing Speech Voice Recognition Software. Grammatical errors, random word insertions, pronoun errors, and incomplete sentences are an occasional consequence of this system due to software limitations, ambient noise, and hardware issues. Any formal questions or concerns about the content, text, or information contained within the body of this dictation should be directly addressed to the provider for clarification. Supervising Physician Co-Signing Physician Notes I have personally performed a history and physical examination on the patient. I have reviewed the advance practitioner's documentation, and I agree with, and take responsibility for the plan of care. 69-year-old male present to the emergency department from hemodialysis earlier today after challenges with port during dialysis. Only able to complete 1 hour of hemodialysis therefore transferred for possible vascular evaluation/intervention. In the ER patient reported epigastric and lower chest discomfort. Discomfort somewhat reproducible with palpation and belching. Reports dyspnea and chest fullness with exertion at home. ECG demonstrating chronic left bundle branch block. Initial high-sensitivity troponin within normal limits. Impression: 1. Atypical chest discomfort -Recent Lexiscan nuclear stress test negative for inducible ischemia 07/2024 -Initial HS troponin WNL 2. H/o CAD w/ inferior infarct 2017, 2019 s/p PCI RCA 3. Gastritid / esophagitis per CT Plan/Recommendation: * Repeat high-sensitivity troponin * 2D echocardiogram pending * Continue aspirin, Effient, nifedipine, and metoprolol as ordered. * May hold Effient prior to any scheduled procedures. Wiley Marie DO, [facility] History of Present Illness Reason for Consultation: Chest pain; History of CAD Requesting Physician: [facility] Hospital[facility] Attending Physician: Dr. Marie History of Present Illness Patient is a 69 year old male who presented to [facility] from dialysis center with complaints of epigastric chest pain. Also reports recent issues with dialysis catheter and full dialysis sessions have not been able to be completed recently. Known to [facility]iology. History includes: 1. Chronic ischemic heart disease status post inferior myocardial infarction with acute coronary intervention stenting right coronary artery 2017 2. Recurrent angina non ST-elevation myocardial infarction July 2020 with repeat right coronary intervention for restenoses 3. Mild left ventricular dysfunction 4. ESRD 5. Type 2 diabetes mellitus with past pancreatitis 6. Longstanding HIV with viral suppression 7. Chronic left bundle-branch block 8. History of mild ischemic cardiomyopathy with LVEF previously 45%, improving to 55% per echo in May 2024 Most recently patient seen by cardiology this summer. No chest pain reported. Being considered for renal transplant and underwent outpatient nuclear stress test in April 2024which revealed old inferior wall LA with scar but no inducible ischemia. He also underwent echo in May 2024 which revealed preserved LVEF at 55-59%, evidence of old inferior/posterior LA with hypokinesis of the segments, mild AI, mildly enlarged aortic root and moderate LVH. Patient reports intermittent chest pain began about 1 week ago. He was vomiting for 1 day. Noted severe epigastric pain with eating and drinking fluids. Symptoms have waxed and waned over the last week. This morning he had worsening symptoms of chest pain and fistula was not working once again at dialysis and he was sent to ER. Chest pain is located in epigastric region. No radiation. No associated SOB, diaphoresis. He has not tried SL nitro as he did not have any at home. Made worse with eating/drinking. Upon arrival to ER, EKG demonstrated NSR with chronic LBBB. Borderline prolonged QT interval. No acute changes. known chronic LBBB. Initial HS troponin negative. Abdominal CT completed demonstrating esophagitis/gastritis with extraluminal gas. No bowel obstruction. Findings of mild chronic pancreatitis. Prominent lymph nodes also noted. Chest CT was negative for acute pulm findings. There was distention of the upper stomach noted. At time of consult, patient currently attempting dialysis again. He continues to have significant epigastric pain and burning. Reproducible with palpation to the area and reproducible with frequent eructation. He denies recent exertional chest pain or worsening SOB with activities. He denies orthopnea, PND or edema. He reports compliance with medications at home. Allergies Allergy/AdvReac Type Severity Reaction Status Date / Time No Known Allergies Allergy Verified 09/21/24 09:20 Home Medications Medication Instructions Recorded Confirmed Type atorvastatin 40 mg tablet 40 mg PO QAM 01/06/22 09/21/24 History dolutegravir 50 mg-rilpivirine 25 1 tab PO QAM 01/06/22 09/21/24 History mg tablet ([place]) fluoxetine 20 mg capsule 20 mg PO QAM 01/06/22 09/21/24 History multivitamin 1 tab PO QAM 01/06/22 09/21/24 History aspirin 81 mg tablet,delayed 81 mg PO QAM 12/30/23 09/21/24 History release cholecalciferol (vitamin D3) 25 25 mcg PO QAM 12/30/23 09/21/24 History mcg (1,000 unit) capsule (Vitamin D3) coenzyme Q10 10 mg capsule (Co 10 mg PO DAILY 12/30/23 09/21/24 History Q-10) metoprolol succinate 25 mg 25 mg PO QAM 12/30/23 09/21/24 History tablet,extended release 24 hr insulin glargine 100 unit/mL (3 10 unit (0.1 mL) subcut QAM #0 mL 01/14/24 09/21/24 Rx mL) subcutaneous pen (Basaglar KwikPen U-100 Insulin) prasugrel 10 mg tablet 10 mg PO QAM #30 tabs 01/14/24 09/21/24 Rx levothyroxine 25 mcg tablet 25 mcg PO QAM 01/23/24 09/21/24 History pantoprazole 40 mg tablet,delayed 40 mg PO BID #60 tabs 01/27/24 09/21/24 Rx release nifedipine 30 mg tablet,extended 30 day PO DAILY ##0 03/20/24 09/21/24 History release insulin aspart 10 unit subcut TIDWMEAL 09/21/24 09/21/24 History (niacinamide)(U-100) 100 unit/mL(3 mL) subcutaneous pen (Fiasp FlexTouch U-100 Insulin) Patient History Medical History History of COVID-19 2020 Hypertension Diabetes mellitus Hx of sepsis hospitalized at [facility] January 2024 Port-A-Cath in place ESRD (end stage renal disease) on dialysis [facility] in [place] > Tues/ Thurs / Sat History of kidney stones Osteoarthritis Chronic lower back pain History of pancreatitis History of skin cancer KAKE (hard of hearing) HLD (hyperlipidemia) History of myocardial infarction 2016 & 2019 Sleep apnea no device Diverticulosis GERD (gastroesophageal reflux disease) IBS (irritable bowel syndrome) Precancerous lesion rectal CAD (coronary artery disease) Per patient, stenting x 5 in 2016 and restenting of 1 vessel performed in July 2020 Depression HIV (human immunodeficiency virus infection) Surgical History History of esophagogastroduodenoscopy (EGD) S/P ureteral stent placement History of removal of ureteral stent History of cystoscopy History of colonoscopy History of cholecystectomy History of cardiac catheterization 2016 - stents 2019 -- restenting x 1. Critical access hospital Family History Mother Heart disease Social History Smoking Status: Never smoker Tobacco Type: Cigarettes Second Hand Exposure: No; Do You Dip or Chew Tobacco: No; Hx Alcohol Use: Yes Alcohol type: beer, wine and hard liquor Alcohol Intake Frequency: Monthly or Less Hx Substance Use: No Preferred Language: Romansh Communication Ability: Effective Central Supply Supervisor Required: No Beliefs That Will Affect Care: None Current Living Situation: Alone Feels Safe at Home: Yes Assistive Devices: CPAP and Glasses Review of Systems Review of Systems: All systems reviewed & are unremarkable except as noted in HPI & below Physical Exam Constitutional: WD/WN, vitals as above + ill appearing and + thin Neck: trachea midline, no thyromegaly Respiratory: normal respiratory effort; no labored breathing Auscultation: lungs clear to auscultation bilaterally Cardiovascular: Rate/Rhythm: regular rate and regular rhythm Heart Sounds: normal S1 and normal S2; no murmur Extremities: no edema Gastrointestinal (Abdomen): normal bowel sounds, soft, nontender, no hepatosplenomegaly Neurologic: PERRL, EOMI, accommodation nl, no face palsy, no dysarthria Psychiatric: A+Ox3, euthymic affect Results & Data Vital Signs (Past 12 Hours) Vital Signs Temp Pulse Pulse Resp BP Pulse Ox O2 Del Method 09/21/24 12:30 90 100/72 09/21/24 12:21 90 99/69 L 09/21/24 12:15 36.7 C 93 H 09/21/24 10:30 94 H 17 124/79 95 09/21/24 10:03 95 H 18 133/81 95 09/21/24 09:30 90 21 116/64 97 09/21/24 09:00 89 27 H 117/77 97 09/21/24 08:33 84 15 125/79 96 09/21/24 08:19 87 09/21/24 08:09 90 18 98 09/21/24 07:50 Room Air 09/21/24 07:39 93 H 18 09/21/24 07:31 98 H 20 100 Room Air 09/21/24 07:29 141/84 H 09/21/24 07:15 36.7 C 98 H 20 108/78 100 Room Air Laboratory Results Cardiac Enzymes 09/21/24 Range/Units 07:40 AST 22 (13-39) U/L Troponin I High Sens 19.7 (0-20) pg/ml Coagulation 09/21/24 Range/Units 07:40 PT 10.9 (9.0-12.0) Seconds APTT 29 (21-31) Seconds CBC 09/21/24 Range/Units 07:40 WBC 9.75 (4.8-10.8) K/ul RBC 4.83 (4.70-6.10) M/uL Hgb 13.3 L (14.0-18.0) g/dl Hct 39.2 L (42.0-52.0) % Plt Count 365 (130-400) K/uL Neut # (Auto) 7.08 H (1.40-6.50) K/uL Lymph # (Auto) 1.63 (1.20-3.40) K/uL [place] # (Auto) 0.88 H (0.11-0.59) K/uL Eos # (Auto) 0.07 (0.00-0.50) K/uL Baso # (Auto) 0.03 (0.00-0.20) K/uL Comprehensive Metabolic Panel 09/21/24 Range/Units 07:40 Sodium 131 L (136-145) mmol/L Potassium 4.1 (3.5-5.1) mmol/L Chloride 98 (98-107) mmol/L Carbon Dioxide 21 (21-32) mmol/L BUN 60 H (6-23) mg/dl Creatinine 3.18 H (0.6-1.4) mg/dl Glucose 280 H (70-99(Fasting)) mg/dl Calcium 9.6 (8.6-10.3) mg/dl AST 22 (13-39) U/L ALT 19 (7-52) U/L Alkaline Phosphatase 137 H (34-104) U/L Total Protein 7.4 (6.0-8.3) gm/dl Albumin 4.6 (3.4-5.0) gm/dl Intake and Output 09/20/24 09/21/24 09/21/24 22:59 06:59 14:59 Other: Weight 72.9 kg Weight Measurement Method Chair Scale Patient Weight 09/22/24 06:59 Weight 72.9 kg Diagnostic Findings Telemetry reviewed: NSR with conduction delay (LBBB). Occ PVC EKG reviewed dated 09/21/24: NSR with occ PVC LBBB LAD Borderline prolonged QT interval no significant change from previous Chest X-Ray 09/21/24 07:31 IMPRESSION: 1. Right central vascular access with its tip reaching the the right side of the heart, possibly at right atrium. 2. Elevated left copula of the diaphragm with underlying marked gastric distension. 3. Prominent bronchovascular markings bilateral and hilar vessels, advised for clinical correlation. 4. Apparent cardiomegaly with dilated unfolded aorta. Electronically signed by Jama Garcia 09-21-2024 08:35 AM KUB X-Ray 09/21/24 07:31 IMPRESSION: 1. Gastric distension by gas seen. 2. Right hypochondriac surgical clips seen. [id number]. Advised for clinical correlation and further work-up if clinically warranted (CT study of abdomen /[id number].5.1.2 Pelvis)./OBX.5.1.2/OBX.5.1 Abdomen/Pelvis CT 09/21/24 08:26 FINDINGS: No pneumatosis, free air or portal venous gas is present. Mild biliary ductal dilatation is unchanged and likely related to cholecystectomy. No hepatic lesions are identified on unenhanced exam. Mild splenomegaly is unchanged. No renal, ureteral or bladder calculi are present. There is no hydronephrosis. Water attenuation bilateral renal lesions are suboptimally assessed on unenhanced exam but favor cysts. Small subcentimeter hypodense right lower pole renal lesion is indeterminate but may represent a hyperdense cyst. There is mild wall thickening at the gastric esophageal junction with adjacent stranding. There is no extraluminal gas. Prominent gastrohepatic ligament lymph nodes measure up to 2 x 0.8 cm. The stomach is mildly distended fluid-filled. Multiple pancreatic parenchymal calcifications are again noted. Mild pancreatic ductal dilatation is similar to prior CT. There are several suspected intraductal calculi which measure up to 1.1 x 0.5 cm. No peripancreatic stranding is noted. Mesenteric stranding is similar to prior exam. Associated prominent mesenteric lymph nodes are unchanged. Index node on image 155 measures 1.1 x 0.7 cm. Tethered appearance of the mesentery and proximal duodenum is unchanged. Upper abdominal collaterals are again noted. Narrowing of the portosplenic confluence is suboptimally assessed on unenhanced exam. There is no evidence for a bowel obstruction. Colonic diverticulosis without evidence for acute diverticulitis. No pelvic lymphadenopathy is present. IMPRESSION: 1. Moderate wall thickening at the GE junction with adjacent stranding. This favors esophagitis/gastritis. No extraluminal gas. Prominent adjacent lymph nodes may be reactive and can be assessed on follow-up studies. Imaging follow- up to ensure resolution and exclude the possibility of an underlying lesion is recommended. Alternately, endoscopy could be performed. 2. No evidence for a bowel obstruction. Colonic diverticulosis. No evidence for acute diverticulitis. 3. Findings consistent with chronic pancreatitis. Multiple pancreatic parenchymal calcifications as well as suspected intraductal calculi. No evidence for acute pancreatitis. 4. Tethered appearance of the proximal duodenum and mesentery with narrowing of the portosplenic confluence with associated collateral formation. These findings are suboptimally assessed on unenhanced exam but similar to prior CT and may be chronic. These may reflect the sequela of chronic pancreatitis. However, a follow-up CT of the abdomen in 3 months to ensure continued stability and exclude the possibility of an underlying neoplastic process is recommended. Chest CT 09/21/24 08:26 FINDINGS: Stable dialysis catheter. Stable mild elevation of the left hemidiaphragm. There is no pulmonary consolidation or pleural effusion. No pneumothorax. There are a few scattered calcified pulmonary granuloma and there are left hilar lymph node calcifications consistent with prior granulomatous disease. No enlarged adenopathy in the chest. No mediastinal hematoma. No pericardial effusion. There are severe coronary artery calcifications. There is distention of the visualized upper stomach with fluid and gas. There are mild thoracic spine degenerative changes. No acute osseous findings. IMPRESSION: No acute findings. Otherwise described. Prior outpatient studies reviewed: Echo report reviewed dated May 2024: Interpretation Summary The examination is adequate to evaluate the referral indication. There was sinus bradycardia during the examination. The wall thickness is moderately increased in segments with normal wall motion. There is asymmetric hypertrophy of the base septum with a maximum thickness of 1.8 cm. There is a moderate sized inferior and posterior wall motion abnormality with hypokinesis to akinesis of the segments. The qualitative LV ejection fraction is 55-59% (normal). The left ventricular diastolic function is mildly abnormal (grade I). Mild aortic valve sclerosis is present. Aortic stenosis is absent. Mild aortic valve regurgitation is present. The aortic root is borderline enlarged. The proximal ascending thoracic aorta is normal sized. Compared to the report of the prior studyd dated 02/04/23, the apical wall motion abnormality noted at that time is not appreciated on the present study. Nuclear stress test report reviewed from April 2024: Interpretation Summary The pharmacologic myocardial perfusion imaging study reveals a large sized fixed inferior, inferolateral perfusion defect consistent with myocardial scar in this territory. There is no evidence of superimposed ischemia. The stress EKG response is nondiagnostic for excluding ischemia due to the presence of underlying left bundle branch block. Patient described transient chest tightness with the administration of regadenoson that resolved spontaneously in the post stress recovery interval without intervention. Gated SPECT imaging reveals inferior, inferolateral hypokinesis The left ventricular ejection fraction was calculated to be 55% (normal). Medications Administered Current Inpatient Medications Acetaminophen (Acetaminophen 325 Mg Tab) 650 mg PO Q4H PRN PRN Reason: Pain or Fever Stop: 10/21/24 11:38 Dextrose (Dextrose 50% 50 Ml Syringe) 25 - 50 ml IV UD PRN; Protocol PRN Reason: Hypoglycemia Protocol Stop: 10/21/24 12:26 Glucagon (Glucagon For Inj 1 Mg Vial) 1 mg SQ UD PRN; Protocol PRN Reason: Hypoglycemia Protocol Stop: 10/21/24 12:26 Glucose (Glucose 40% Gel 15 Gm Tube) 15 - 30 gm PO UD PRN; Protocol PRN Reason: Hypoglycemia Protocol Stop: 10/21/24 12:26 Glucose (Glucose 10 Tab/Tube) 4 - 8 tab PO UD PRN; Protocol PRN Reason: Hypoglycemia Protocol Stop: 10/21/24 12:26 Insulin Aspart (Insulin Aspart Per Unit Charge) 0 units SC ACHS MOSHE Stop: 10/21/24 16:29 Insulin Glargine (Lantus Per Unit Charge) 6 units SQ BID MOSHE Stop: 10/21/24 20:59 Magnesium Hydroxide (Magnesium Hydroxide Susp 30 Ml Udc) 30 ml PO Q12H PRN PRN Reason: Constipation Stop: 10/21/24 11:38 Miscellaneous (Carbohydrates For Hypoglycemia ) 15 - 30 gm PO UD PRN PRN Reason: Hypoglycemia Protocol Stop: 10/21/24 12:26 Miscellaneous Information (Pharmacy Glycemic Mgmt Consult) 1 each N/A UD PRN PRN Reason: Consult Stop: 10/21/24 12:26 Morphine Sulfate (Morphine Sulfate 4 Mg/Ml 1 Ml Carp\\Vial) 4 mg IV Q15M PRN PRN Reason: Pain Stop: 10/05/24 07:30 Last Admin: 09/21/24 08:29 Dose: 4 mg Ondansetron HCl (Ondansetron Inj 2 Mg/Ml 2 Ml Vial) 4 mg IV Q6H PRN PRN Reason: Nausea Stop: 10/21/24 11:38 Polyethylene Glycol (Polyethylene (Miralax) 17 Gm Pack) 17 gm PO DAILY PRN PRN Reason: Constipation Stop: 10/21/24 11:38 Sucralfate (Sucralfate 1 Gm/10 Ml Udc) 1 gm PO QID MOSHE Stop: 10/21/24 12:59 (1) Chest pain Chest pain type: unspecified Qualified Code(s): R07.9 - Chest pain, unspecified (4) CAD (coronary artery disease) Associated angina: unspecified whether angina present Coronary Disease- Associated Artery/Lesion type: [place] artery [place] vs. transplanted heart: [place] heart Qualified Code(s): I25.10 - Atherosclerotic heart disease of [place] coronary artery without angina pectoris
--- NOTE | 2024-09-21 13:04 | Nephrology Consultation ---
Date of Consultation September 21, 2024 Assessment & Plan (1) End stage chronic kidney disease: patient is ESRD on chronic hemodialysis Wednesday. He had about 1 hour of dialysis at the outpatient unit and after that had to be sent to the hospital because of chest pain nausea vomiting. does not appear to be in volume overload in fact he appears to be volume depleted because of nausea vomiting diarrhea and extremely poor oral intake for the last 1 week. In fact he has lost about 8 lb in about 1 week. Will do dialysis today for 3 hours on a 3K bath and will not take any fluid off. we will also be able to check whether the dialysis catheter that he has now works good or not. The current catheter which was placed on August 22, 2024 at [facility] by Interventional Radiology has been inconsistent but still fairly use able. if we have problem with the catheter blood flow we will ask Vascular Surgery to place a new catheter. As outpatient it has been quite challenging with the catheter and he has had multiple catheter changed in the last 7 months. his AV fistula is not yet ready but hopefully soon will be (2) Esophagitis: will treat with medical management. He has been ordered Carafate but unfortunately that contains aluminum and is contraindicated long-term in dialysis patient but we can at least give for couple of days if it helps with the symptoms. however I would not discharge him on Carafate. (3) Chest pain: rule out cardiac cause but at this point it appears this is more related with gastritis and esophagitis than cardiac chest pain. But given his extensive cardiac risk we have to be absolutely certain that this is not cardiac Plan total time spent 62 minutes. Multiple phone calls as well as tiger text message exchange with primary service as well as outpatient dialysis nurse and inpatient dialysis regarding his care and dialysis plans History of Present Illness Reason for Consultation: ESRD on dialysis Attending Physician: Bryan Waggoner MD History of Present Illness 69-year-old male with ESRD on dialysis Wednesday at the [facility] unit under my care. he was sent over from dialysis after 1 hour because of nausea vomiting chest pain and epigastric pain. he has been sick now for about a week with a wide range of symptoms including nausea vomiting very poor appetite diarrhea chest pain epigastric pain and weakness. he has missed dialysis last 2 times because of being sick but normally he is very compliant with dialysis and medical advice . he also slipped on black ice on September 06 and sustained fracture in his shoulder joint and that is also causing significant problems. CT chest and abdomen and pelvis was done which did not show any other acute finding other than possibility of esophagitis and gastritis. he has a maturing AV fistula but currently getting dialysis through catheter which was exchanged on August 22. the current catheter works fairly but not consistently good. As per the dialysis nurse at the [facility] unit it was working suboptimally today. review of systems is positive for nausea vomiting diarrhea poor appetite chest pain epigastric pain shoulder pain weakness dizziness. Also was having some cough and cold symptoms. total 12 systems reviewed and is otherwise neck Physical Exam Physical Exam: General exam: Appears comfortable, no acute distress HEENT: Pupils are equal and reactive to light Neck: No JVD, neck is supple trachea is midline Respiratory system: Clear breath sounds bilaterally. Gastrointestinal: Abdomen is soft, non distended, non tender, bowel sounds are present CVS: Regular rate and rhythm. No murmurs, rubs or gallops Musculoskeletal: No joint or muscle tenderness Extremities: Non tender, no edema, peripheral pulses are present Neuro: Oriented, no tremors, no focal neurological deficits Skin: No rashes Allergies Allergy/AdvReac Type Severity Reaction Status Date / Time No Known Allergies Allergy Verified 09/21/24 09:20 Home Medications Medication Instructions Recorded Confirmed Type atorvastatin 40 mg tablet 40 mg PO QA 01/06/22 09/21/24 History dolutegravir 50 mg-rilpivirine 25 1 tab PO QA 01/06/22 09/21/24 History mg tablet (Juluca) fluoxetine 20 mg capsule 20 mg PO [facility] 01/06/22 09/21/24 History multivitamin 1 tab PO [facility] 01/06/22 09/21/24 History aspirin 81 mg tablet,delayed 81 mg PO QA 12/30/23 09/21/24 History release cholecalciferol (vitamin D3) 25 25 mcg PO QAM 12/30/23 09/21/24 History mcg (1,000 unit) capsule (Vitamin D3) coenzyme Q10 10 mg capsule (Co 10 mg PO DAILY 12/30/23 09/21/24 History Q-10) metoprolol succinate 25 mg 25 mg PO QAM 12/30/23 09/21/24 History tablet,extended release 24 hr insulin glargine 100 unit/mL (3 10 unit (0.1 mL) subcut QAM #0 mL 01/14/24 09/21/24 Rx mL) subcutaneous pen (Basaglar KwikPen U-100 Insulin) prasugrel 10 mg tablet 10 mg PO QAM #30 tabs 01/14/24 09/21/24 Rx levothyroxine 25 mcg tablet 25 mcg PO QAM 01/23/24 09/21/24 History pantoprazole 40 mg tablet,delayed 40 mg PO BID #60 tabs 01/27/24 09/21/24 Rx release nifedipine 30 mg tablet,extended 30 day PO DAILY ##0 03/20/24 09/21/24 History release insulin aspart 10 unit subcut TIDWMEAL 09/21/24 09/21/24 History (niacinamide)(U-100) 100 unit/mL(3 mL) subcutaneous pen (Fiasp FlexTouch U-100 Insulin) Patient History Medical History History of COVID-19 2020 Hypertension Diabetes mellitus Hx of sepsis hospitalized at [facility] January 2024 Port-A-Cath in place ESRD (end stage renal disease) on dialysis [facility] in [place] > Tues/ Thurs / Sat History of kidney stones Osteoarthritis Chronic lower back pain History of pancreatitis History of skin cancer [place] (hard of hearing) HLD (hyperlipidemia) History of myocardial infarction 2016 & 2019 Sleep apnea no device Diverticulosis GERD (gastroesophageal reflux disease) IBS (irritable bowel syndrome) Precancerous lesion rectal CAD (coronary artery disease) Per patient, stenting x 5 in 2016 and restenting of 1 vessel performed in July 2020 Depression HIV (human immunodeficiency virus infection) Surgical History History of esophagogastroduodenoscopy (EGD) S/P ureteral stent placement History of removal of ureteral stent History of cystoscopy History of colonoscopy History of cholecystectomy History of cardiac catheterization 2017 - 5 stents 2019 -- restenting x 1. [facility] Family History Mother Heart disease Social History Smoking Status: Never smoker Tobacco Type: Cigarettes Second Hand Exposure: No; Do You Dip or Chew Tobacco: No; Hx Alcohol Use: Yes Alcohol type: beer, wine and hard liquor Alcohol Intake Frequency: Monthly or Less Hx Substance Use: No Preferred Language: Danish Communication Ability: Effective [employer] Required: No Beliefs That Will Affect Care: None Current Living Situation: Alone Feels Safe at Home: Yes Assistive Devices: CPAP and Glasses Results & Data Vital Signs (Past 12 Hours) Vital Signs Temp Pulse Pulse Resp BP Pulse Ox O2 Del Method 09/21/24 12:30 90 100/72 09/21/24 12:21 90 99/69 L 09/21/24 12:15 36.7 C 93 H 09/21/24 10:30 94 H 17 124/79 95 09/21/24 10:03 95 H 18 133/81 95 09/21/24 09:30 90 21 116/64 97 09/21/24 09:00 89 27 H 117/77 97 09/21/24 08:33 84 15 125/79 96 09/21/24 08:19 87 09/21/24 08:09 90 18 98 09/21/24 07:50 Room Air 09/21/24 07:39 93 H 18 09/21/24 07:31 98 H 20 100 Room Air 09/21/24 07:29 141/84 H 09/21/24 07:15 36.7 C 98 H 20 108/78 100 Room Air Diagnostic Findings CT chest abdomen and pelvis reviewed and shows possible esophagitis/gastritis but otherwise unremarkable (3) Chest pain Chest pain type: unspecified Qualified Code(s): R07.9 - Chest pain, unspecified
[2024-09-21] MEDS: SUCRALFATE 1 GM/10 ML UDC PO SCH (13:10)
--- NOTE | 2024-09-21 13:28 | Gastrointestinal Consultation ---
Date of Consultation September 21, 2024 Assessment & Plan (1) Esophagitis: (2) Gastritis: Plan Patient with gastritis/esophagitis on CT. He admits to having a history of chronic pancreatitis. he feels his symptoms are better. - continue with carafate 1 g qid. - start protonix 40mg bid. - will continue to monitor symptoms. further recommendations to follow, see MD perez. Supervising Physician Co-Signing Physician Notes I saw and examined this patient with our nurse practitioner and agree with her assessment and plan. In light of his history of chronic pancreatitis and CT scan imaging is quite possible that his GI symptoms are related to chronic pancreatitis. It is not uncommon to have normal lipase and amylase in the setting of chronic pancreatitis. Some of his GI symptoms may be exacerbated by him missing 2 days of dialysis last week as well. I agree with radiology that a repeat CT scan would be reasonable in light of their findings in approximately 2 to 3 months. For now I would treat him as if we are dealing with a chronic pancreatitis flare. Will reassess him tomorrow and determine whether or not we could start feeding him. In light of his endoscopy back in March I did not feel that the findings of his distal esophagus are significant and there is no need for repeat endoscopy at this time. History of Present Illness Reason for Consultation: gastritis / esophagitis Requesting Physician: Zainab DUMONT Attending Physician: Bryan Waggoner MD History of Present Illness Patient is a 69 year old male with ESRD on HD who presented to the [facility] ED from hemodialysis this morning after having challenges with his port during dialysis. He was only able to complete one hour worth of HD. He had complaints of chest pain and abdominal pain. CT scan was done showing moderate wall thickening of the GE junction favoring gastritis/esophagitis. there were also prominent lymph nodes and findings of possible chronic pancreatitis/intraductal stone. LFTs and lipase were unremarkable outside of alk phos of 137. GI asked to see for the gastritis/esophagitis. He tells me that he has had chronic pancreatitis in the past. He was seen today in dialysis unit. He admits to feeling better since admission and getting dialysis. rest of GI ros are unremarkable. EGD 03/2024 shown healing ulcer and food in stomach. Allergies Allergy/AdvReac Type Severity Reaction Status Date / Time No Known Allergies Allergy Verified 09/21/24 09:20 Home Medications Medication Instructions Recorded Confirmed Type atorvastatin 40 mg tablet 40 mg PO QAM 01/06/22 09/21/24 History dolutegravir 50 mg-rilpivirine 25 1 tab PO QAM 01/06/22 09/21/24 History mg tablet (Juluca) fluoxetine 20 mg capsule 20 mg PO QAM 01/06/22 09/21/24 History multivitamin 1 tab PO QAM 01/06/22 09/21/24 History aspirin 81 mg tablet,delayed 81 mg PO QAM 12/30/23 09/21/24 History release cholecalciferol (vitamin D3) 25 25 mcg PO QAM 12/30/23 09/21/24 History mcg (1,000 unit) capsule (Vitamin D3) coenzyme Q10 10 mg capsule (Co 10 mg PO DAILY 12/30/23 09/21/24 History Q-10) metoprolol succinate 25 mg 25 mg PO QAM 12/30/23 09/21/24 History tablet,extended release 24 hr insulin glargine 100 unit/mL (3 10 unit (0.1 mL) subcut QAM #0 mL 01/14/24 09/21/24 Rx mL) subcutaneous pen (Basaglar KwikPen U-100 Insulin) prasugrel 10 mg tablet 10 mg PO QAM #30 tabs 01/14/24 09/21/24 Rx levothyroxine 25 mcg tablet 25 mcg PO QAM 01/23/24 09/21/24 History pantoprazole 40 mg tablet,delayed 40 mg PO BID #60 tabs 01/27/24 09/21/24 Rx release nifedipine 30 mg tablet,extended 30 day PO DAILY ##0 03/20/24 09/21/24 History release insulin aspart 10 unit subcut TIDWMEAL 09/21/24 09/21/24 History (niacinamide)(U-100) 100 unit/mL(3 mL) subcutaneous pen (Fiasp FlexTouch U-100 Insulin) Patient History Medical History History of COVID-2020 Hypertension Diabetes mellitus Hx of sepsis hospitalized at [facility] January 2024 Port-A-Cath in place ESRD (end stage renal disease) on dialysis [facility] in [place] > Tues/ Thurs / Sat History of kidney stones Osteoarthritis Chronic lower back pain History of pancreatitis History of skin cancer [place] (hard of hearing) HLD (hyperlipidemia) History of myocardial infarction 2017 & 2019 Sleep apnea no device Diverticulosis GERD (gastroesophageal reflux disease) IBS (irritable bowel syndrome) Precancerous lesion rectal CAD (coronary artery disease) Per patient, stenting x 5 in 2017 and restenting of 1 vessel performed in July 2020 Depression HIV (human immunodeficiency virus infection) Surgical History History of esophagogastroduodenoscopy (EGD) S/P ureteral stent placement History of removal of ureteral stent History of cystoscopy History of colonoscopy History of cholecystectomy History of cardiac catheterization 2017 - stents 2020 -- restenting x 1. [facility] Family History Mother Heart disease Social History Smoking Status: Never smoker Tobacco Type: Cigarettes Second Hand Exposure: No; Do You Dip or Chew Tobacco: No; Hx Alcohol Use: Yes Alcohol type: beer, wine and hard liquor Alcohol Intake Frequency: Monthly or Less Hx Substance Use: No Preferred Language: Arabic Communication Ability: Effective Tire Manager Required: No Beliefs That Will Affect Care: None Current Living Situation: Alone Feels Safe at Home: Yes Assistive Devices: CPAP and Glasses Review of Systems Review of Systems: All systems reviewed & are unremarkable except as noted in HPI & below Physical Exam Constitutional: WD/WN, vitals as above Respiratory: normal respiratory effort, lungs clear to auscultation Cardiovascular: Rate/Rhythm: regular rate and regular rhythm Gastrointestinal (Abdomen): normal bowel sounds, soft, nontender, no hepatosplenomegaly Psychiatric: Orientation: alert and oriented x 3 Affect: euthymic affect Results & Data Vital Signs (Past 12 Hours) Vital Signs Temp Pulse Pulse Resp BP Pulse Ox O2 Del Method 09/21/24 12:30 90 100/72 09/21/24 12:21 90 99/69 L 09/21/24 12:15 98.1 F 93 H 09/21/24 10:30 94 H 17 124/79 95 09/21/24 10:03 95 H 18 133/81 95 09/21/24 09:30 90 21 116/64 97 09/21/24 09:00 89 27 H 117/77 97 09/21/24 08:33 84 15 125/79 96 09/21/24 08:19 87 09/21/24 08:09 90 18 98 09/21/24 07:50 Room Air 09/21/24 07:39 93 H 18 09/21/24 07:31 98 H 20 100 Room Air 09/21/24 07:29 141/84 H 09/21/24 07:15 98.1 F 98 H 20 108/78 100 Room Air Diagnostic Findings Chest X-Ray 09/21/24 07:31 EXAM: XR chest 1V portable CLINICAL HISTORY: CHEST/ABD PAIN JMT TECHNIQUE: An X-ray image of the chest is obtained in frontal projection. COMPARISON: No prior studies are available for comparison. FINDINGS: Right central vascular access with its tip reaching the right side of the heart, possibly at right atrium. Elevated left copula of the diaphragm with underlying marked gastric distension. Pulmonary Parenchyma: Prominent bronchovascular markings bilateral and hilar vessels, advised for clinical correlation. No evidence of consolidation, collapse, or focal opacities. No pulmonary nodules are identified. No evidence of pleural effusion or pleural thickening. Heart and Mediastinum: Apparent cardiomegaly with dilated unfolded aorta. No mediastinal widening or masses. No hilar or mediastinal lymphadenopathy. Bony Thorax: Bony thorax appears intact without fractures or deformities. Soft Tissues: Soft tissues overlying the chest wall are unremarkable. IMPRESSION: 1. Right central vascular access with its tip reaching the the right side of the heart, possibly at right atrium. 2. Elevated left copula of the diaphragm with underlying marked gastric distension. 3. Prominent bronchovascular markings bilateral and hilar vessels, advised for clinical correlation. 4. Apparent cardiomegaly with dilated unfolded aorta. Electronically signed by Jama Garcia 09-21-2024 08:35 AM KUB X-Ray 09/21/24 07:31 EXAM: XR KUB/Abdomen 1 view CLINICAL HISTORY: CHEST/ABD PAIN. TECHNIQUE: X-ray images of the abdomen were obtained in frontal projection. COMPARISON: No prior studies are available for comparison. FINDINGS: Gas Pattern: Gastric distension by gas seen No evidence of small or large bowel obstruction or distention. Soft Tissues: Soft tissues of the abdomen appear normal without evidence of masses or calcifications. Liver, spleen, and kidneys are of normal size and position. Right hypochondriac surgical clips seen IMPRESSION: 1. Gastric distension by gas seen. 2. Right hypochondriac surgical clips seen. [id number]. Advised for clinical correlation and further work-up if clinically warranted (CT study of abdomen /[id number].5.1.1OBX.5.1.2 Pelvis)./OBX.5.1.2/OBX.5.1 Electronically signed by Jama Garcia 09-21-2024 08:27 AM Abdomen/Pelvis CT 09/21/24 08:26 CT OF THE ABDOMEN AND PELVIS WITHOUT CONTRAST CLINICAL HISTORY: Abdominal pain. COMPARISON STUDY: CT of the abdomen and pelvis March 09, 2024. KUB performed earlier today. TECHNIQUE: Axial images of the abdomen and pelvis were obtained without IV contrast. Images were reviewed in the axial, sagittal, and coronal planes. Automated exposure control was utilized for the study. A dose lowering technique was utilized adhering to the principles of ALARA. FINDINGS: No pneumatosis, free air or portal venous gas is present. Mild biliary ductal dilatation is unchanged and likely related to cholecystectomy. No hepatic lesions are identified on unenhanced exam. Mild splenomegaly is unchanged. No renal, ureteral or bladder calculi are present. There is no hydronephrosis. Water attenuation bilateral renal lesions are suboptimally assessed on unenhanced exam but favor cysts. Small subcentimeter hypodense right lower pole renal lesion is indeterminate but may represent a hyperdense cyst. There is mild wall thickening at the gastric esophageal junction with adjacent stranding. There is no extraluminal gas. Prominent gastrohepatic ligament lymph nodes measure up to 2 x 0.8 cm. The stomach is mildly distended fluid-filled. Multiple pancreatic parenchymal calcifications are again noted. Mild pancreatic ductal dilatation is similar to prior CT. There are several suspected intraductal calculi which measure up to 1.1 x 0.5 cm. No peripancreatic stranding is noted. Mesenteric stranding is similar to prior exam. Associated prominent mesenteric lymph nodes are unchanged. Index node on image 155 measures 1.1 x 0.7 cm. Tethered appearance of the mesentery and proximal duodenum is unchanged. Upper abdominal collaterals are again noted. Narrowing of the portosplenic confluence is suboptimally assessed on unenhanced exam. There is no evidence for a bowel obstruction. Colonic diverticulosis without evidence for acute diverticulitis. No pelvic lymphadenopathy is present. IMPRESSION: 1. Moderate wall thickening at the GE junction with adjacent stranding. This favors esophagitis/gastritis. No extraluminal gas. Prominent adjacent lymph nodes may be reactive and can be assessed on follow-up studies. Imaging follow- up to ensure resolution and exclude the possibility of an underlying lesion is recommended. Alternately, endoscopy could be performed. 2. No evidence for a bowel obstruction. Colonic diverticulosis. No evidence for acute diverticulitis. 3. Findings consistent with chronic pancreatitis. Multiple pancreatic parenchymal calcifications as well as suspected intraductal calculi. No evidence for acute pancreatitis. 4. Tethered appearance of the proximal duodenum and mesentery with narrowing of the portosplenic confluence with associated collateral formation. These findings are suboptimally assessed on unenhanced exam but similar to prior CT and may be chronic. These may reflect the sequela of chronic pancreatitis. However, a follow-up CT of the abdomen in 3 months to ensure continued stability and exclude the possibility of an underlying neoplastic process is recommended. ACT 112: Positive. There are findings on this exam that require communication between the performing entity and the patient following Patient Test Result Information Act ([place] Act 112) guidelines. Electronically signed by: Igor Roberts M.D. 09/21/2024 9:[address] 09/21/24 08:26 CT chest diagnostic wo con CT DOSE: 1318.65 mGy.cm CLINICAL HISTORY: Chest pain. TECHNIQUE: Multiaxial CT images of the chest were performed without contrast. A dose lowering technique was utilized adhering to the principles of ALARA. COMPARISON STUDY: Chest x-ray earlier today FINDINGS: Stable dialysis catheter. Stable mild elevation of the left hemidiaphragm. There is no pulmonary consolidation or pleural effusion. No pneumothorax. There are a few scattered calcified pulmonary granuloma and there are left hilar lymph node calcifications consistent with prior granulomatous disease. No enlarged adenopathy in the chest. No mediastinal hematoma. No pericardial effusion. There are severe coronary artery calcifications. There is distention of the visualized upper stomach with fluid and gas. There are mild thoracic spine degenerative changes. No acute osseous findings. IMPRESSION: No acute findings. Otherwise described. ACT 112: Negative or not required by law. Electronically signed by: Bandar Thacker M.D. 09/21/2024 9:06 AM Coding Level of Care Code 46344 INT INP/OBS CARE MIN Diagnoses Esophagitis K20.90 Gastritis K29.70
--- NOTE | 2024-09-21 13:55 | Pharmacy Report ---
Pharmacy Glycemic Short Note 2 - Date of Service September 21, 2024 - Glycemic Short BSG Results (Last 24 hours): 09/21/24 07:40 Glucose 280 H OUTPATIENT ANTIDIABETIC REGIMEN: * Aspart 10 u TID w/meals and glargine 22 u qAM per most recent fill history * Last A1c 8.8 on 12/31/23 ASSESSMENT: * 69 yo M w/PMH of ESRD on HD, HIV, CAD, HTN, T2DM who has been consulted for glycemic management. * Currently pt is NPO, will use stress factor of 2 and dose less than pt's home regimen d/t NPO status * Pt's BSG from this morning was 280; pt currently in dialysis and will likely not get a repeat until done w/session. PLAN FOR INPATIENT GLYCEMIC CONTROL: * Hold outpatient oral diabetes medications * A1c has been ordered w/tomorrows labs. * Basal insulin * Lantus 0-10 units BID based on BSG parameters * Bolus insulin * NovoLog per scale ACHS or Q6hrs while NPO * Goal Range: Low 110 mg/dL - High 140 mg/dL * Correction Factor: 30 mg/dL/unit * Nutritional / Prandial insulin per carb ratio of 1 unit per 11 grams CHO consumed
[2024-09-21 16:38] LABS: Calcium 9.2 mg/dl (8.6-10.3); Potassium 4.2 mmol/L (3.5-5.1)
[2024-09-21 16:44] LABS: BUN Creatinine Ratio 17.1 (10-20); Creatinine Clr Calc Pharmacy 26.4 ml/min
[2024-09-21] MEDS: INSULIN ASPART PER UNIT CHARGE SC SCH (17:07)
[2024-09-21 18:27] LABS: Appearance Urine Clear (Clear); Bacteria Urine Automated None Seen (None Seen); Bilirubin Urine Negative (Negative); Blood Urine Trace (Negative); Cast Urine Automated 0-2 /lpf (0-2); Color Urine Yellow; Epithelial Cell Urine Auto 0-2 /hpf (0-2); Glucose Urine UA 3+ (Negative); Ketones Urine 1+ (Negative); Leukocyte Esterase Urine Negative (Negative); Nitrite Urine Negative (Negative); Protein Urine 2+ (Negative); RBC Urine Automated 0-2 /hpf (0-2); Specific Gravity Urine 1.017 (1.000-1.030); Urobilinogen Urine Negative (Negative); WBC Urine Automated 0-5 /hpf (0-5); pH Urine 5.5 (4.5-7.5)
[2024-09-21 18:31] LABS: Troponin I High Sensitivity 17.5 pg/ml (0-20)
[2024-09-21 18:41] LABS: Thyroid Stimulating Hormone 2.879 uIu/ml (0.300-4.500)
[2024-09-21] MEDS: PANTOprazole 40 MG/10 ML SYR IV SCH (20:16)
[2024-09-21] MEDS: LANTUS PER UNIT CHARGE SQ SCH (20:16)
[2024-09-22] MEDS: LEVOTHYROXINE SODIUM 25 MCG TABLET PO SCH (05:56)
[2024-09-22 06:24] LABS: Hematocrit (blood only) 32.2 % (42.0-52.0); Hemoglobin 10.8 g/dl (14.0-18.0); Mean Corpuscular Hemoglobin 27.7 pg (25.0-34.0); Mean Corpuscular Hgb Conc 33.5 g/dL (32.0-36.0); Mean Corpuscular Volume 82.6 fL (80.0-100.0); Mean Platelet Volume 8.8 fL (9.4-12.4); Platelet Count 195 K/uL (130-400); RDW Coefficient of Variation 13.9 % (11.5-14.5); RDW Standard Deviation 40.8 fL (36.4-46.3); White Blood Count 4.14 K/ul (4.8-10.8)
[2024-09-22 06:30] LABS: BUN Creatinine Ratio 16.1 (10-20); Calcium 9.7 mg/dl (8.6-10.3); Creatinine Clr Calc Pharmacy 21.1 ml/min; Magnesium 2.6 mg/dl (1.7-2.4); Potassium 4.2 mmol/L (3.5-5.1)
[2024-09-22 06:50] LABS: Estimated Average Glucose 249 mg/dl; Hemoglobin A1C 10.3 % (4.5-5.6)
[2024-09-22] MEDS: PRASugrel TAB 10 MG TAB PO SCH (08:37)
[2024-09-22] MEDS: ATORVASTATIN 40 MG TAB PO SCH (08:37)
[2024-09-22] MEDS: NIFEdipine EXTENDED REL 30 MG TABCR PO SCH (08:38)
[2024-09-22] MEDS: FLUoxetine HCL 20 MG CAP PO SCH (08:38)
[2024-09-22] MEDS: METOPROLOL SUCC 25MG EXT REL TAB PO SCH (08:38)
[2024-09-22] MEDS: CHOLECALCIFEROL 25 MCG (1000 UNITS) TAB PO SCH (08:38)
[2024-09-22] MEDS: ASPIRIN 81 MG ECTAB PO SCH (09:35)
--- NOTE | 2024-09-22 09:52 | Consultation ---
Date of Consultation September 22, 2024 Assessment & Plan (1) End stage chronic kidney disease: Pt with malfunctioning permcath for HD, and L radiocephalic AVF with poor thrill. Pt to undergo permcath exchange in OR today. Procedure, risks, benefits, and alternatives discussed with pt by myself at Dr Crowe's request. Pt expresses understanding and agreement to proceed. Recommend L forearm AVF undergo US eval to assess for maturation, will schedule in office and f/u with pt. Pt agreeable. Patient was seen, examined, and chart reviewed. Agree with exam and treatment plan of the Vascular PA. History of Present Illness Reason for Consultation: ESRD Attending Physician: Laura Menjivar MD History of Present Illness 69 yo m with ESRD on HD, HTN, DMII, neuropathy, HIV, CAD, admitted yesterday, seen in consultation today for permcath exchange d/t malfunctioning permcath. Pt has been on HD since 12/2023, and states he has had multiple catheter exchanges since then d/t malfunctioning catheters. Had a L radiocephalic AVF created at [facility] in June 2024, but has not had any f/u appt for this d/t multiple hospital admissions. Denies PATRICK, fever, chest pain,S OB, abd pain, N/V, rest pain, claudication, other complaitns. Allergies Allergy/AdvReac Type Severity Reaction Status Date / Time No Known Allergies Allergy Verified 09/21/24 09:20 Home Medications Medication Instructions Recorded Confirmed Type atorvastatin 40 mg tablet 40 mg PO QAM 01/06/22 09/21/24 History dolutegravir 50 mg-rilpivirine 25 1 tab PO QAM 01/06/22 09/21/24 History mg tablet (Juluca) fluoxetine 20 mg capsule 20 mg PO QAM 01/06/22 09/21/24 History multivitamin 1 tab PO QAM 01/06/22 09/21/24 History aspirin 81 mg tablet,delayed 81 mg PO QAM 12/30/23 09/21/24 History release cholecalciferol (vitamin D3) 25 25 mcg PO QAM 12/30/23 09/21/24 History mcg (1,000 unit) capsule (Vitamin D3) coenzyme Q10 10 mg capsule (Co 10 mg PO DAILY 12/30/23 09/21/24 History Q-10) metoprolol succinate 25 mg 25 mg PO QAM 12/30/23 09/21/24 History tablet,extended release 24 hr insulin glargine 100 unit/mL (3 10 unit (0.1 mL) subcut QAM #0 mL 01/14/24 09/21/24 Rx mL) subcutaneous pen (Basaglar KwikPen U-100 Insulin) prasugrel 10 mg tablet 10 mg PO QAM #30 tabs 01/14/24 09/21/24 Rx levothyroxine 25 mcg tablet 25 mcg PO QAM 01/23/24 09/21/24 History pantoprazole 40 mg tablet,delayed 40 mg PO BID #60 tabs 01/27/24 09/21/24 Rx release nifedipine 30 mg tablet,extended 30 day PO DAILY ##0 03/20/24 09/21/24 History release insulin aspart 10 unit subcut TIDWMEAL 09/21/24 09/21/24 History (niacinamide)(U-100) 100 unit/mL(3 mL) subcutaneous pen (Fiasp FlexTouch U-100 Insulin) Patient History Medical History History of COVID-19 2020 Hypertension Diabetes mellitus Hx of sepsis hospitalized at [facility] January 2024 Port-A-Cath in place ESRD (end stage renal disease) on dialysis [facility] in [place] > Tues/ Thurs / Sat History of kidney stones Osteoarthritis Chronic lower back pain History of pancreatitis History of skin cancer [place] (hard of hearing) HLD (hyperlipidemia) History of myocardial infarction 2016 & 2019 Sleep apnea no device Diverticulosis GERD (gastroesophageal reflux disease) IBS (irritable bowel syndrome) Precancerous lesion rectal CAD (coronary artery disease) Per patient, stenting x 5 in 2017 and restenting of 1 vessel performed in July 2020 Depression HIV (human immunodeficiency virus infection) Surgical History History of esophagogastroduodenoscopy (EGD) S/P ureteral stent placement History of removal of ureteral stent History of cystoscopy History of colonoscopy History of cholecystectomy History of cardiac catheterization 2017 - 5 stents 2019 -- restenting x 1. [facility] Family History Mother Heart disease Social History Smoking Status: Former smoker Tobacco Type: Cigarettes Second Hand Exposure: No; Do You Dip or Chew Tobacco: No; Hx Alcohol Use: Yes (history) Alcohol type: beer, wine and hard liquor Alcohol Intake Frequency: Monthly or Less Hx Substance Use: No Preferred Language: Macedonian Communication Ability: Effective Mortgage Consultant Required: No Beliefs That Will Affect Care: None Current Living Situation: Alone Feels Safe at Home: Yes Assistive Devices: Glasses Review of Systems Review of Systems: All systems reviewed & are unremarkable except as noted in HPI & below Physical Exam Constitutional: WD/WN, vitals as above healthy appearing; not in distress ENMT: Ears: no hearing impairment Neck: trachea midline Respiratory: normal respiratory effort, lungs clear to auscultation Auscultation: + diminished lung sounds Cardiovascular: Rate/Rhythm: regular rate and regular rhythm Vessels: femoral pulses present, posterior tibial pulses present and dorsalis pedis pulses present; + abnormal peripheral pulses Extremities: normal capillary refill; no edema Chest (Breasts): Chest: + vascular access device or port (R chest wall, no erythema or draiange or tenderness) Gastrointestinal (Abdomen): Inspection/Auscultation: abdomen normal to inspection and normal bowel sounds Percussion/Palpation: abdomen soft; abdomen nontender Musculoskeletal: no cyanosis or clubbing, extremities motor strength 5/5 Skin: no rashes, warm and dry Neurologic: moves all extremities and awake; no focal motor deficits and not confused Psychiatric: A+Ox3, euthymic affect Results & Data Vital Signs (Past 12 Hours) Vital Signs Temp Pulse Pulse Resp BP BP Pulse Ox 09/22/24 07:45 36.3 C L 77 18 130/71 100 09/22/24 07:15 70 09/22/24 01:57 36.3 C L 73 16 110/62 98 09/22/24 00:15 09/22/24 00:10 80 09/21/24 22:25 36.5 C 84 18 109/63 97 O2 Del Method 09/22/24 07:45 Room Air 09/22/24 07:15 09/22/24 01:57 Room Air 09/22/24 00:15 Room Air 09/22/24 00:10 09/21/24 22:25 Room Air
--- NOTE | 2024-09-22 10:31 | Gastroenterology Progress Note ---
Date of Service September 22, 2024 Assessment & Plan (1) Gastritis: (2) Esophagitis: Plan Patient tells me that he is feeling much better today. - continue with carafate 1 g qid. - continue protonix 40mg bid. - can advance diet as tolerated from a GI standpoint. currently NPO still for procedure today. Admission and Anticipated Discharge Date Admission Date: September 21, 2024 Supervising Physician Co-Signing Physician Notes I saw and examined this patient with our nurse practitioner and agree with her assessment and plan. Subjective Patient tells me that abdominal pain has resolved. no nausea or vomiting. no bowel movements since admission. he tells me he is planned for a procedure to change his permacath today. Review of Systems Review of Systems: All systems reviewed & are unremarkable except as noted in HPI & below Physical Exam Constitutional: WD/WN, vitals as above Respiratory: normal respiratory effort, lungs clear to auscultation Cardiovascular: Rate/Rhythm: regular rate and regular rhythm Gastrointestinal (Abdomen): normal bowel sounds, soft, nontender, no hepatosplenomegaly Psychiatric: Orientation: alert and oriented x 3 Affect: euthymic affect Results & Data Results & Data Vital Signs (Past 12 Hours) Vital Signs Temp Pulse Pulse Resp BP BP Pulse Ox 09/22/24 10:19 97.5 F L 76 18 128/73 98 09/22/24 07:45 97.3 F L 77 18 130/71 100 09/22/24 07:15 70 09/22/24 01:57 97.3 F L 73 16 110/62 98 09/22/24 00:15 09/22/24 00:10 80 O2 Del Method 09/22/24 10:19 Room Air 09/22/24 07:45 Room Air 09/22/24 07:15 09/22/24 01:57 Room Air 09/22/24 00:15 Room Air 09/22/24 00:10 Coding Level of Care Code 72564 SUB INP/OBS CARE 10/07MIN Diagnoses Gastritis K29.70 Esophagitis K20.90
--- NOTE | 2024-09-22 10:33 | Nephrology Progress Note ---
Date of Service September 22, 2024 Assessment & Plan Admission and Anticipated Discharge Date Admission Date: September 21, 2024 Subjective Assessment & Plan (1) End stage chronic kidney disease: patient is ESRD on chronic hemodialysis Wednesday. He had about 1 hour of dialysis at the outpatient unit and after that had to be sent to the hospital because of chest pain nausea vomiting. does not appear to be in volume overload in fact he appears to be volume depleted because of nausea vomiting diarrhea and extremely poor oral intake for the last 1 week. In fact he has lost about 8 lb in about 1 week. Will do dialysis today for 3 hours on a 3K bath and will not take any fluid off. he has enough residual urine to have next dialysis on Wednesday. So if all things good he can be discharged from renal standpoint. we will also be able to check whether the dialysis catheter that he has now works good or not. The current catheter which was placed on August 22, 2024 at [facility] by Interventional Radiology has been inconsistent. Did not work yesterday so Vascular Surgery to place a new catheter today. As outpatient it has been quite challenging with the catheter and he has had multiple catheter changed in the last 7 months. his AV fistula is not yet ready but hopefully soon will be (2) Esophagitis: will treat with medical management. He has been ordered Carafate but unfortunately that contains aluminum and is contraindicated long-term in dialysis patient but we can at least give for couple of days if it helps with the symptoms. however I would not discharge half-way on Carafate. maybe a max of 1 week. (3) Chest pain: rule out cardiac cause but at this point it appears this is more related with gastritis and esophagitis than cardiac chest pain. But given his extensive cardiac risk we have to be absolutely certain that this is not cardiac S--Feels better today. Less Pain. All Symptoms less. Dialysis Cath did not work yesterday and could not do dialysis. Physical Exam Physical Exam: General exam: Appears comfortable, no acute distress HEENT: Pupils are equal and reactive to light Neck: No JVD, neck is supple trachea is midline Respiratory system: Clear breath sounds bilaterally. Gastrointestinal: Abdomen is soft, non distended, non tender, bowel sounds are present CVS: Regular rate and rhythm. No murmurs, rubs or gallops Musculoskeletal: No joint or muscle tenderness Extremities: Non tender, no edema, peripheral pulses are present Neuro: Oriented, no tremors, no focal neurological deficits Skin: No rashes Results & Data Vital Signs (Past 12 Hours) Vital Signs Temp Pulse Pulse Resp BP BP Pulse Ox 09/22/24 10:19 36.4 C L 76 18 128/73 98 09/22/24 07:45 36.3 C L 77 18 130/71 100 09/22/24 07:15 70 09/22/24 01:57 36.3 C L 73 16 110/62 98 09/22/24 00:15 09/22/24 00:10 80 O2 Del Method 09/22/24 10:19 Room Air 09/22/24 07:45 Room Air 09/22/24 07:15 09/22/24 01:57 Room Air 09/22/24 00:15 Room Air 09/22/24 00:10
--- NOTE | 2024-09-22 11:07 | Pre Anesthesia Assessment ---
Date of Service September 22, 2024 Pre Sedation Assessment Vital Signs Temp Pulse Pulse Pulse Resp BP BP 09/22/24 11:06 71 17 113/72 09/22/24 10:19 36.4 C L 76 18 128/73 09/22/24 08:30 09/22/24 07:45 36.3 C L 77 18 130/71 09/22/24 07:15 70 09/22/24 01:57 36.3 C L 73 16 09/22/24 00:15 09/22/24 00:10 80 09/21/24 22:25 36.5 C 84 18 109/63 09/21/24 19:28 36.6 C 89 16 09/21/24 17:01 85 09/21/24 16:44 36.6 C 81 16 09/21/24 14:35 36.7 C 84 09/21/24 14:00 83 95/58 L 09/21/24 13:30 99 H 110/82 09/21/24 13:00 91 H 100/68 09/21/24 12:30 90 100/72 09/21/24 12:21 90 99/69 L 09/21/24 12:15 36.7 C 93 H BP Pulse Ox O2 Del Method O2 Flow Rate 09/22/24 11:06 99 Oxymask 2 09/22/24 10:19 98 Room Air 09/22/24 08:30 Room Air 09/22/24 07:45 100 Room Air 09/22/24 07:15 09/22/24 01:57 110/62 98 Room Air 09/22/24 00:15 Room Air 09/22/24 00:10 09/21/24 22:25 97 Room Air 09/21/24 19:28 109/68 98 Room Air 09/21/24 17:01 09/21/24 16:44 112/64 97 Room Air 09/21/24 14:35 116/75 09/21/24 14:00 09/21/24 13:30 09/21/24 13:00 09/21/24 12:30 09/21/24 12:21 09/21/24 12:15 Cardiovascular RRR, no murmur, no edema Respiratory normal respiratory effort, lungs clear to auscultation Pre-Sedation Airway Assessment Smoking Status: Former smoker Hx Sleep Apnea: No Short, Thick Neck: No Thyromental Distance: > or= 3.5 Finger Breadths Oral Cavity: + WNL Mallampati Class: II ASA: ASA3 NPO Status Date of Last Intake of Fluids: 09/21/24 Time of Last Intake of Fluids: 22:30 Date of Last Intake of Solid Food: 09/20/24 Time of Last Intake of Solid Foods: 17:00 Procedure Planning Contraindications for Sedation: none Current Medications Reviewed: Yes Notes The planned sedation has been discussed with the patient. Informed Consent was obtained. I have identified the patient, determined the appropriateness of sedation and have assessed the patient immediately prior to the procedure. All medicine(s) and interventions are by my order.
[2024-09-22] MEDS: ceFAZolin 2,000 MG/15 ML IV PUSH IV ONE (11:08)
--- NOTE | 2024-09-22 11:32 | Post Anesthesia Assessment ---
Date of Service September 22, 2024 Post Sedation Assessment Vital Signs Temp Pulse Pulse Pulse Resp BP BP 09/22/24 11:31 68 18 117/68 09/22/24 11:23 68 18 122/78 09/22/24 11:12 68 18 115/73 09/22/24 11:10 72 15 109/66 09/22/24 11:06 71 17 113/72 09/22/24 10:19 36.4 C L 76 18 128/73 09/22/24 08:30 09/22/24 07:45 36.3 C L 77 18 130/71 09/22/24 07:15 70 09/22/24 01:57 36.3 C L 73 16 09/22/24 00:15 09/22/24 00:10 80 09/21/24 22:25 36.5 C 84 18 109/63 09/21/24 19:28 36.6 C 89 16 09/21/24 17:01 85 09/21/24 16:44 36.6 C 81 16 09/21/24 14:35 36.7 C 84 09/21/24 14:00 83 95/58 L 09/21/24 13:30 99 H 110/82 09/21/24 13:00 91 H 100/68 09/21/24 12:30 90 100/72 09/21/24 12:21 90 99/69 L 09/21/24 12:15 36.7 C 93 H BP Pulse Ox O2 Del Method O2 Flow Rate 09/22/24 11:31 100 Oxymask 2 09/22/24 11:23 100 Oxymask 2 09/22/24 11:12 100 Oxymask 2 09/22/24 11:10 100 Oxymask 2 09/22/24 11:06 99 Oxymask 2 09/22/24 10:19 98 Room Air 09/22/24 08:30 Room Air 09/22/24 07:45 100 Room Air 09/22/24 07:15 09/22/24 01:57 110/62 98 Room Air 09/22/24 00:15 Room Air 09/22/24 00:10 09/21/24 22:25 97 Room Air 09/21/24 19:28 109/68 98 Room Air 09/21/24 17:01 09/21/24 16:44 112/64 97 Room Air 09/21/24 14:35 116/75 09/21/24 14:00 09/21/24 13:30 09/21/24 13:00 09/21/24 12:30 09/21/24 12:21 09/21/24 12:15 Recovery Score Activity: Moves 4 extremities Respiration: Deep Breath/Cough Circulation: +/-20% PreAnes Value Consciousness: Fully Awake Oxygen Saturation: > 92% On Room Air Post Anesthesia Score: 10 Discharge Sedation Level of Care: Fast Track Phase II Post Sedation Plan On clinical assessment, the patient appears to have tolerated the sedation without complications. Patient is recovering as anticipated. Patient will continue to be monitored by nursing and may be discharged when sedation discharge criteria are met per below protocol. Upon Completions of procedure up to 15 minutes continue every 5 minute vital signs and the P.A.R. score; then discharge to a Phase I or Fast Track to Phase II per the following guidelines: * Discharge Patient to appropriate Phase II area if PAR is 8 or greater or return to pre- procedure baseline. The post - procedure orders will be as directed. * If PAR score is less than 8 or not return to pre-procedure baseline then patient will follow Phase I monitoring till PAR is reached for Phase II. The Phase I may be done in procedure room or may call to secure a Phase I area. * If naloxone or flumazenil are used for reversal, hold in Phase I for continued monitoring from when last reversal dose was given for a minimum of 60 minutes or longer pending the nurse and/or physician discretion of patient condition before discharge to Phase II. Please call the Sedation Physician to re-evaluate and complete post-note for discharge to Phase II area. Do NOT discharge from procedure sedation or Phase 1 until post- sedation evaluation note is complete by procedure /sedation MD Sedation Discharge Instructions to be given to the patient at discharge to home.
--- NOTE | 2024-09-22 11:32 | Pre Anesthesia Assessment ---
Date of Service September 22, 2024 Pre Sedation Assessment Vital Signs Temp Pulse Pulse Pulse Resp BP BP 09/22/24 11:31 68 18 117/68 09/22/24 11:23 68 18 122/78 09/22/24 11:12 68 18 115/73 09/22/24 11:10 72 15 109/66 09/22/24 11:06 71 17 113/72 09/22/24 10:19 36.4 C L 76 18 128/73 09/22/24 08:30 09/22/24 07:45 36.3 C L 77 18 130/71 09/22/24 07:15 70 09/22/24 01:57 36.3 C L 73 16 09/22/24 00:15 09/22/24 00:10 80 09/21/24 22:25 36.5 C 84 18 109/63 09/21/24 19:28 36.6 C 89 16 09/21/24 17:01 85 09/21/24 16:44 36.6 C 81 16 09/21/24 14:35 36.7 C 84 09/21/24 14:00 83 95/58 L 09/21/24 13:30 99 H 110/82 09/21/24 13:00 91 H 100/68 09/21/24 12:30 90 100/72 09/21/24 12:21 90 99/69 L 09/21/24 12:15 36.7 C 93 H BP Pulse Ox O2 Del Method O2 Flow Rate 09/22/24 11:31 100 Oxymask 2 09/22/24 11:23 100 Oxymask 2 09/22/24 11:12 100 Oxymask 2 09/22/24 11:10 100 Oxymask 2 09/22/24 11:06 99 Oxymask 2 09/22/24 10:19 98 Room Air 09/22/24 08:30 Room Air 09/22/24 07:45 100 Room Air 09/22/24 07:15 09/22/24 01:57 110/62 98 Room Air 09/22/24 00:15 Room Air 09/22/24 00:10 09/21/24 22:25 97 Room Air 09/21/24 19:28 109/68 98 Room Air 09/21/24 17:01 09/21/24 16:44 112/64 97 Room Air 09/21/24 14:35 116/75 09/21/24 14:00 09/21/24 13:30 09/21/24 13:00 09/21/24 12:30 09/21/24 12:21 09/21/24 12:15 Cardiovascular RRR, no murmur, no edema Respiratory normal respiratory effort, lungs clear to auscultation Pre-Sedation Airway Assessment Smoking Status: Former smoker Hx Sleep Apnea: No Short, Thick Neck: No Thyromental Distance: > or= 3.5 Finger Breadths Oral Cavity: + WNL Mallampati Class: II ASA: ASA3 NPO Status Date of Last Intake of Fluids: 09/21/24 Time of Last Intake of Fluids: 22:30 Date of Last Intake of Solid Food: 09/20/24 Time of Last Intake of Solid Foods: 17:00 Procedure Planning Contraindications for Sedation: none Current Medications Reviewed: Yes Notes The planned sedation has been discussed with the patient. Informed Consent was obtained. I have identified the patient, determined the appropriateness of sedation and have assessed the patient immediately prior to the procedure. All medicine(s) and interventions are by my order.
--- NOTE | 2024-09-22 11:36 | Operative Report ---
Post Operative Report Pre & Post Diagnosis Operation Date: 09/22/24 07:50 Pre-Op Diagnosis: MALFUNCTIONING DIALYSIS PORT Post-Op Diagnosis: MALFUNCTIONING DIALYSIS PORT I identified the patient and participated in the time-out.: Yes Procedure Operation Date: 09/22/24 07:50 Actual Procedures p Perm Catheter Exchange, Fluoroscopy for Postioning(Right), Ezra Fuller MD Surgeon Ezra Fuller MD Bundling Machine Operator none Estimated Blood Loss 5 Findings Consistent with Post-Op Diagnosis Specimens none Anesthesia Type RN Sedation Complications none Disposition Accompanied Patient To Recovery: No Disposition: Recovery Room Indications Patient is a 69-year-old gentleman right internal jugular vein PermCath in place. It is nonfunctional. Is been exchanged 7 times in the past. We are looking to exchange it or revise at this point. I have discussed the risks options and benefits of the procedure with the patient. The patient understands the risks options and benefits and agrees to the procedure. Description of Procedure Patient was takent to the angio suite and placed in the supine position. The right side of the neck, catheter and chest wall were prepped and draped in a sterile manner. The patient was identified and a timeout performed. Local anesthesia was then administered to the appropriate areas. A guidewire was then passed centrally under fluoroscopic imaging through the old permcath. It appeared that the old PermCath may be too far into the right atrium. The cuff was right at the skin level. The old permcath was removed after freeing up the dacron cuff of the permcath using blunt and sharp dissection. We then inserted an incision in the skin approximately 5 cm in length underlying the catheter. The surrounding tissue was freed up. A new 19 cm permcath was inserted without difficulty. The catheter was sutured in placed. Both ports aspirated and flushed easily and were then packed with heparin. The incision was then closed over the PermCath extending the tunnel and covering over the call using a 3-0 nylon interrupted sutures. Dermabond was used for dressing. A sterile dressing was applied to the catheter. The patient left the operation room in satisfactory condition and tolerated the procedure well. All needle and sponge counts were correct at the end of the procedure. I attest to the content of the Intraoperative Record and any orders documented therein. Any exceptions are noted below.
--- NOTE | 2024-09-22 11:36 | Cardiology Progress Note ---
Date of Service September 22, 2024 Assessment & Plan (1) Chest pain: (2) Esophagitis: (3) LBBB (left bundle branch block): (4) CAD (coronary artery disease): Plan 09/21/24: Patient admitted with epigastric/chest pain x1 week. Esophagitis/gastritis noted on CT of the abdomen with significant gastric distention noted. Also enlarged lymph nodes within the area. He has reproducible "chest pain" in the epigastric region with light palpation to the area. Since arrival, HS troponin negative x1. EKG demonstrated NSR, chronic LBBB. Borderline prolonged QT. Will monitor. Echocardiogram ordered. He has a history of CAD s/p inferior wall ND in 2017 with RCA stent. Recurrent NSTEMI/chest yanet in Jul 2022 with repeat RCA intervention due to restenosis. He has had no recent exertional CP/anginal complaints at home. Symptoms are atypical for cardiac etiology. He had recent negative nuclear stress test in April 2024. Continue ASA and Effient. May hold Effient if vascular procedure/fistula revision is needed OR if endoscopy is also recommended. continue statin Continue metoprolol and nifedipine. Await echo results. Recommend GI evaluation for his current symptoms and findings on CT Scan suggestive of esophagitis/gastritis. 09/22/24: Patient doing better this morning in regards to epigastric pain. GI following. started on Carafate and Protonix. Thoughts that symptoms were related to chronic pancreatitis. No plans for repeat endoscopy at this time. Symptoms were very atypical for cardiac etiology HS troponin negative x3. No acute EKG changes Echocardiogram is pending. patient with known inferior wall ND. He had a negative nuclear stress test in April 2024. continue ASA, Effient, metoprolol, statin, nifedipine. As long as echo reveals stable findings from prior echo, I do not anticipate any further cardiac testing at this time. continue home mediations. Vascular surgery consulted for evaluation of fistula. Will sign off. Please contact sales contractor cardiology provider with additional questions or concerns. Case discussed with Dr. Marie I spent a total of 30 minutes on the date of service in preparation, delivery, and documentation of the care provided to this patient, excluding any time spent in the performance of separately billed services. Rayne Nathan PA-C Department of Cardiology, [facility] This chart was completed in part utilizing Speech Voice Recognition Software. Grammatical errors, random word insertions, pronoun errors, and incomplete sentences are an occasional consequence of this system due to software limitations, ambient noise, and hardware issues. Any formal questions or concerns about the content, text, or information contained within the body of this dictation should be directly addressed to the provider for clarification. Admission and Anticipated Discharge Date Admission Date: September 21, 2024 Supervising Physician Co-Signing Physician Notes I have personally performed a history and physical examination on the patient. I have reviewed the advance practitioner's documentation, and I agree with, and take responsibility for the plan of care. 69-year-old male present to the emergency department from hemodialysis 09/21/2024 due to malfunctioning dialysis port. Perm catheter exchange performed today under fluoroscopy by vascular surgery. Esophagitis treated with Carafate and Protonix by gastroenterology. Patient's previously noted epigastric and chest discomfort has resolved. Feeling well today. Impression: 1. Noncardiac chest discomfort -Recent Lexiscan nuclear stress test negative for inducible ischemia 07/2024 -Normal HS troponin -Echocardiogram demonstrates chronic inferior posterior wall motion abno rmality with preserved LV systolic function. 2. H/o CAD w/ inferior infarct 2017, 2019 s/p PCI RCA 3. Gastritis / esophagitis per CT Plan/Recommendation: * Continue aspirin, Effient, nifedipine, and metoprolol as ordered. * No further inpatient testing recommended at this time. * Cardiology will sign off. Please call with additional concerns/questions. Wiley Marie DO, [facility] Subjective Patient reports feeling much better this morning. No recurrent epigastric or chest pain. Still having issues with fistula and vascular surgery evaluating. Review of Systems Review of Systems: All systems reviewed & are unremarkable except as noted in HPI & below Physical Exam Constitutional: WD/WN, vitals as above + ill appearing and + thin Neck: trachea midline, no thyromegaly Respiratory: normal respiratory effort; no labored breathing Auscultation: lungs clear to auscultation bilaterally Cardiovascular: Rate/Rhythm: regular rate and regular rhythm Heart Sounds: normal S1 and normal S2; no murmur Extremities: no edema Gastrointestinal (Abdomen): normal bowel sounds, soft, nontender, no hepatosplenomegaly Neurologic: PERRL, EOMI, accommodation nl, no face palsy, no dysarthria Psychiatric: A+Ox3, euthymic affect Results & Data Vital Signs (Past 12 Hours) Vital Signs Temp Pulse Pulse Resp BP BP Pulse Ox 09/22/24 11:31 68 18 117/68 100 09/22/24 11:23 68 18 122/78 100 09/22/24 11:12 68 18 115/73 100 09/22/24 11:10 72 15 109/66 100 09/22/24 11:06 71 17 113/72 99 09/22/24 10:19 36.4 C L 76 18 128/73 98 09/22/24 08:30 09/22/24 07:45 36.3 C L 77 18 130/71 100 09/22/24 07:15 70 09/22/24 01:57 36.3 C L 73 16 110/62 98 09/22/24 00:15 09/22/24 00:10 80 O2 Del Method O2 Flow Rate 09/22/24 11:31 Oxymask 2 09/22/24 11:23 Oxymask 2 09/22/24 11:12 Oxymask 2 09/22/24 11:10 Oxymask 2 09/22/24 11:06 Oxymask 2 09/22/24 10:19 Room Air 09/22/24 08:30 Room Air 09/22/24 07:45 Room Air 09/22/24 07:15 09/22/24 01:57 Room Air 09/22/24 00:15 Room Air 09/22/24 00:10 Laboratory Results Cardiac Enzymes 09/21/24 09/21/24 Range/Units 15:26 17:30 Troponin I High Sens 17.5 17.1 (0-20) pg/ml CBC 09/22/24 Range/Units 05:34 WBC 4.14 L D (4.8-10.8) K/ul RBC 3.90 L (4.70-6.10) M/uL Hgb 10.8 L (14.0-18.0) g/dl Hct 32.2 L (42.0-52.0) % Plt Count 195 (130-400) K/uL Comprehensive Metabolic Panel 09/21/24 09/22/24 Range/Units 15:26 05:34 Sodium 135 L 137 (136-145) mmol/L Potassium 4.2 4.2 (3.5-5.1) mmol/L Chloride 103 107 (98-107) mmol/L Carbon Dioxide 21 24 (21-32) mmol/L BUN 44 H 50 H (6-23) mg/dl Creatinine 2.57 H D 3.10 H D (0.6-1.4) mg/dl Glucose 186 H 128 H (70-99(Fasting)) mg/dl Calcium 9.2 9.7 (8.6-10.3) mg/dl Intake and Output 09/21/24 09/22/24 09/22/24 22:59 06:59 14:59 Intake Total 350 / 350 Balance 350 / 350 Intake: Oral 350 / 350 Other: Other Intake Source npo Weight 71.9 kg 68.2 kg Weight Measurement Method Standing Scale Diagnostic Findings Telemetry reviewed: NSR with rare PVC's. no concerning arrhythmias Echocardiogram pending Medications Administered Current Inpatient Medications Acetaminophen (Acetaminophen 325 Mg Tab) 650 mg PO Q4H PRN PRN Reason: Pain or Fever Stop: 10/21/24 11:38 Aspirin (Aspirin 81 Mg Ectab) 81 mg PO [facility] Stop: 10/22/24 08:59 Last Admin: 09/22/24 09:35 Dose: 81 mg Atorvastatin Calcium (Atorvastatin 40 Mg Tab) 40 mg PO QAM [facility] Stop: 10/22/24 08:59 Last Admin: 09/22/24 08:37 Dose: 40 mg Dextrose (Dextrose 50% 50 Ml Syringe) 25 - 50 ml IV UD PRN; Protocol PRN Reason: Hypoglycemia Protocol Stop: 10/21/24 12:26 Fluoxetine HCl (Fluoxetine Hcl 20 Mg Cap) 20 mg PO QAM [facility] Stop: 10/22/24 08:59 Last Admin: 09/22/24 08:38 Dose: 20 mg Glucagon (Glucagon For Inj 1 Mg Vial) 1 mg SQ UD PRN; Protocol PRN Reason: Hypoglycemia Protocol Stop: 10/21/24 12:26 Glucose (Glucose 40% Gel 15 Gm Tube) 15 - 30 gm PO UD PRN; Protocol PRN Reason: Hypoglycemia Protocol Stop: 10/21/24 12:26 Glucose (Glucose 10 Tab/Tube) 4 - 8 tab PO UD PRN; Protocol PRN Reason: Hypoglycemia Protocol Stop: 10/21/24 12:26 Pantoprazole Sodium (Protonix) 40 mg in 10 mls @ 5 mls/min IV BID [facility] Stop: 10/21/24 20:59 Last Admin: 09/22/24 08:38 Dose: 5 mls/min Insulin Aspart (Insulin Aspart Per Unit Charge) 0 units SC Q6 [facility] Stop: 10/21/24 17:59 Last Admin: 09/22/24 06:00 Dose: Not Given Insulin Glargine (Lantus Per Unit Charge) 0 units SQ BID [facility]; Protocol Stop: 10/21/24 20:59 Last Admin: 09/22/24 09:16 Dose: Not Given Levothyroxine Sodium (Levothyroxine Sodium 25 Mcg Tablet) 25 mcg PO DAILYBB [facility] Stop: 10/22/24 06:29 Last Admin: 09/22/24 05:56 Dose: 25 mcg Metoprolol Succinate (Metoprolol Succ 25mg Ext Rel Tab) [facility] Stop: 10/22/24 08:59 Last Admin: 09/22/24 08:38 Dose: 25 mg Miscellaneous (Carbohydrates For Hypoglycemia ) 15 - 30 gm PO UD PRN PRN Reason: Hypoglycemia Protocol Stop: 10/21/24 12:26 Miscellaneous Information (Pharmacy Glycemic Mgmt Consult) 1 each N/A UD PRN PRN Reason: Consult Stop: 10/21/24 12:26 Morphine Sulfate (Morphine Sulfate 4 Mg/Ml 1 Ml Carp\\Vial) 4 mg IV Q15M PRN PRN Reason: Pain Stop: 10/05/24 07:30 Last Admin: 09/21/24 08:29 Dose: 4 mg Nifedipine (Nifedipine Extended Rel 30 Mg Tabcr) 30 mg PO DAILY [facility] Stop: 10/22/24 08:59 Last Admin: 09/22/24 08:38 Dose: 30 mg Polyethylene Glycol (Polyethylene (Miralax) 17 Gm Pack) 17 gm PO DAILY PRN PRN Reason: Constipation Stop: 10/21/24 11:38 Prasugrel (Prasugrel Tab 10 Mg Tab) [facility] Stop: 10/22/24 08:59 Last Admin: 09/22/24 09:35 Dose: 10 mg Sucralfate (Sucralfate 1 Gm/10 Ml Udc) 1 gm PO QID [facility] Stop: 10/21/24 12:59 Last Admin: 09/22/24 08:36 Dose: 1 gm Vitamin D (Cholecalciferol 25 Mcg (1000 Units) Tab) 25 mcg PO QAM [facility] Stop: 10/22/24 08:59 Last Admin: 09/22/24 08:38 Dose: 25 mcg (1) Chest pain Chest pain type: unspecified Qualified Code(s): R07.9 - Chest pain, unspecified (4) CAD (coronary artery disease) Associated angina: unspecified whether angina present Coronary Disease- Associated Artery/Lesion type: [place] artery [place] vs. transplanted heart: [place] heart Qualified Code(s): I25.10 - Atherosclerotic heart disease of [place] coronary artery without angina pectoris
--- NOTE | 2024-09-22 11:41 | Hospitalist Progress Note ---
Date of Service September 22, 2024 Assessment & Plan (1) ESRD (end stage renal disease) on dialysis: (2) HIV (human immunodeficiency virus infection): (3) Hypertension: (4) DM type 2 (diabetes mellitus, type 2): (5) Prolonged QT interval: (6) CAD (coronary artery disease): (7) Lymphadenopathy: Plan 69 year old male with PMhx significant for ESRD on HD, HIV, HFpEF (EF 65-70%, ECHO 01/04), CAD status post stent (2017), chronic LBBB, HTN, HLD, HIV on Rx for many years, insulin dependent diabetes, H/O pancreatitis, history of kidney stones in the past, history colonic polyps/internal hemorrhoids, anal HGSIL as per records, urolithiasis, mood disorder, past tobacco and alcohol abuse presenting with a malfunctioning dialysis port, exertional chest pain/SOB and esophagitis/gastritis symptoms. ESRD on HD Started HD in December 2023; T/R/Sa; recently missed a few treatments due to illness Port was placed in December, had revision in 09/[address] [facility]. Follows at [place] for possible transplant. Creatinine 3.18; baseline 3-4 Does not appear volume overloaded; if anything more dry due to recent weight loss Nephrology consulted, recommended/stated the following -s/p port replacement on 09/22 with vascular Surgery -dialysis w/o removal of fluid Stable from renal standpoint Esophagitis/Gastritis GERD KUB done; no masses; gas distension CT Abd/pelvis notin concern for esophagitis/gastritis, chronic pancreatitis and recommending repeat imaging in 3 months to exclude underlying neoplastic processes. Avoid Zofran given prolonged QTc Takes Protonix; will convert to IV BID Will add Sucralfate PO QID- per nephrology short term use only, do not d/c on this GI consulted, recommended/stated the following: "continue with carafate 1 g qid. - continue protonix 40mg bid. - can advance diet as tolerated from a GI standpoint" -no need for repeat EGD at this time -treating like a chronic pancreatitis picture Continue to monitor Chest pain with exertion: Prolonged QTc: LBBB: PVC's Received Morphine 4 mg IV in ED with relief Most recent ECHO EF65-70%, Repeat ECHO EKG today, known LBBB; prolonged QTc 522 (his HIV tx; [place], can cause this; will hold for now) with occasional PVC'; daily EKG Follows with Outpatient Cardiology (Dr. Mota) last appt 03/06. Had an exercise stress in January 2023 with a mildly reduced EF 45-49% with posterior wall abnormality with hypokenesis akinesis, GIDDx. outpatient nuclear stress test in April 2024 which revealed old inferior wall AR with scar but no inducible ischemia Avoid QTc prolonging medications Mg+ 2.4 Cardiology consultation placed, recommended/stated the following: -noncardiac chest pain "Continue aspirin, Effient, nifedipine, and metoprolol as ordered. No further inpatient testing recommended at this time." Daily EKGs Continue to monitor HIV: Chronic, stable Takes Juluca; will hold for now as this could be contributing to his prolonged QTc admits to missing his medication intermittently Most recent CD4 571 and VL 133 in 02/2024 He has refused STD testing in the past Follows with Infectious Disease OPT ID consulted for further recs for resuming med Lymphadenopathy: Abdomen and Pelvis CT today: Prominent adjacent lymph nodes may be reactive and can be assessed on follow-up studies. Imaging follow-up to ensure resolution and exclude the possibility of an underlying lesion is recommended. Repeat CT recommended in 3 months PCP followup HTN: Chronic stable Takes Metoprolol and Nifedipine; continue HLD: Chronic Stable Takes atorvastatin;continue IDDM2: Chronic Stable Takes novolog and Lantus (10 units QAM) Last A1C 01/04: 8.8; recheck while here Glycemic pharmacy consult CAD: Chronic stable S/P stent 2018 Last ECHO 01/04: EF 65-70%, takes baby ASA and Prasugrel; continue L humerus fracture: mechanical fall on 09/07; slipped onblack ice Left humerus fracture with < 1 cm displacement Follows with Ortho and PT as outpatient Has prescribed sling; noncompliant with it Diet: Renal, dialysis, DMII Code Status: Full Code VTE Prophylaxis: SCDs Dispo: home once medically stable Admission and Anticipated Discharge Date Admission Date: September 21, 2024 Subjective patient was seen with sister at bedside Denied acute concerns Was seen before his procedure with vascular surgery to have his port replaced. Review of Systems Review of Systems: All systems reviewed & are unremarkable except as noted in Subjective Physical Exam Physical Exam: General: Alert, oriented. No acute distress Psych: Appropriate mood and affect Neuro: No gross deficits HEENT: NC/AT CV: RRR Resp: Breath sounds clear bilaterally, no increased effort of breathing Abdomen: Soft, nontender Extremities: No edema in lower extremities bilaterally. Results & Data Results & Data Vital Signs (Past 12 Hours) Vital Signs Temp Pulse Pulse Resp BP BP Pulse Ox 09/22/24 11:31 68 18 117/68 100 09/22/24 11:23 68 18 122/78 100 09/22/24 11:12 68 18 115/73 100 09/22/24 11:10 72 15 109/66 100 09/22/24 11:06 71 17 113/72 99 09/22/24 10:19 36.4 C L 76 18 128/73 98 09/22/24 08:30 09/22/24 07:45 36.3 C L 77 18 130/71 100 09/22/24 07:15 70 09/22/24 01:57 36.3 C L 73 16 110/62 98 09/22/24 00:15 09/22/24 00:10 80 O2 Del Method O2 Flow Rate 09/22/24 11:31 Oxymask 2 09/22/24 11:23 Oxymask 2 09/22/24 11:12 Oxymask 2 09/22/24 11:10 Oxymask 2 09/22/24 11:06 Oxymask 2 09/22/24 10:19 Room Air 09/22/24 08:30 Room Air 09/22/24 07:45 Room Air 09/22/24 07:15 09/22/24 01:57 Room Air 09/22/24 00:15 Room Air 09/22/24 00:10 Diagnostic Findings Chest X-Ray 09/21/24 07:31 EXAM: XR chest 1V portable CLINICAL HISTORY: CHEST/ABD PAIN JMT TECHNIQUE: An X-ray image of the chest is obtained in frontal projection. COMPARISON: No prior studies are available for comparison. FINDINGS: Right central vascular access with its tip reaching the right side of the heart, possibly at right atrium. Elevated left copula of the diaphragm with underlying marked gastric distension. Pulmonary Parenchyma: Prominent bronchovascular markings bilateral and hilar vessels, advised for clinical correlation. No evidence of consolidation, collapse, or focal opacities. No pulmonary nodules are identified. No evidence of pleural effusion or pleural thickening. Heart and Mediastinum: Apparent cardiomegaly with dilated unfolded aorta. No mediastinal widening or masses. No hilar or mediastinal lymphadenopathy. Bony Thorax: Bony thorax appears intact without fractures or deformities. Soft Tissues: Soft tissues overlying the chest wall are unremarkable. IMPRESSION: 1. Right central vascular access with its tip reaching the the right side of the heart, possibly at right atrium. 2. Elevated left copula of the diaphragm with underlying marked gastric distension. 3. Prominent bronchovascular markings bilateral and hilar vessels, advised for clinical correlation. 4. Apparent cardiomegaly with dilated unfolded aorta. Electronically signed by Jama Garcia 09-21-2024 08:35 AM KUB X-Ray 09/21/24 07:31 EXAM: XR KUB/Abdomen 1 view CLINICAL HISTORY: CHEST/ABD PAIN. TECHNIQUE: X-ray images of the abdomen were obtained in frontal projection. COMPARISON: No prior studies are available for comparison. FINDINGS: Gas Pattern: Gastric distension by gas seen No evidence of small or large bowel obstruction or distention. Soft Tissues: Soft tissues of the abdomen appear normal without evidence of masses or calcifications. Liver, spleen, and kidneys are of normal size and position. Right hypochondriac surgical clips seen IMPRESSION: 1. Gastric distension by gas seen. 2. Right hypochondriac surgical clips seen. [id number]. Advised for clinical correlation and further work-up if clinically warranted (CT study of abdomen /OBX.5.1.1OBX.5.1.2 Pelvis)./OBX.5.1.2/OBX.5.1 Electronically signed by Jama Garcia 09-21-2024 08:27 AM Abdomen/Pelvis CT 09/21/24 08:26 CT OF THE ABDOMEN AND PELVIS WITHOUT CONTRAST CLINICAL HISTORY: Abdominal pain. COMPARISON STUDY: CT of the abdomen and pelvis March 09, 2024. KUB performed earlier today. TECHNIQUE: Axial images of the abdomen and pelvis were obtained without IV contrast. Images were reviewed in the axial, sagittal, and coronal planes. Automated exposure control was utilized for the study. A dose lowering technique was utilized adhering to the principles of ALARA. FINDINGS: No pneumatosis, free air or portal venous gas is present. Mild biliary ductal dilatation is unchanged and likely related to cholecystectomy. No hepatic lesions are identified on unenhanced exam. Mild splenomegaly is unchanged. No renal, ureteral or bladder calculi are present. There is no hydronephrosis. Water attenuation bilateral renal lesions are suboptimally assessed on unenhanced exam but favor cysts. Small subcentimeter hypodense right lower pole renal lesion is indeterminate but may represent a hyperdense cyst. There is mild wall thickening at the gastric esophageal junction with adjacent stranding. There is no extraluminal gas. Prominent gastrohepatic ligament lymph nodes measure up to 2 x 0.8 cm. The stomach is mildly distended fluid-filled. Multiple pancreatic parenchymal calcifications are again noted. Mild pancreatic ductal dilatation is similar to prior CT. There are several suspected intraductal calculi which measure up to 1.1 x 0.5 cm. No peripancreatic stranding is noted. Mesenteric stranding is similar to prior exam. Associated prominent mesenteric lymph nodes are unchanged. Index node on image 155 measures 1.1 x 0.7 cm. Tethered appearance of the mesentery and proximal duodenum is unchanged. Upper abdominal collaterals are again noted. Narrowing of the portosplenic confluence is suboptimally assessed on unenhanced exam. There is no evidence for a bowel obstruction. Colonic diverticulosis without evidence for acute diverticulitis. No pelvic lymphadenopathy is present. IMPRESSION: 1. Moderate wall thickening at the GE junction with adjacent stranding. This favors esophagitis/gastritis. No extraluminal gas. Prominent adjacent lymph nodes may be reactive and can be assessed on follow-up studies. Imaging follow- up to ensure resolution and exclude the possibility of an underlying lesion is recommended. Alternately, endoscopy could be performed. 2. No evidence for a bowel obstruction. Colonic diverticulosis. No evidence for acute diverticulitis. 3. Findings consistent with chronic pancreatitis. Multiple pancreatic parenchymal calcifications as well as suspected intraductal calculi. No evidence for acute pancreatitis. 4. Tethered appearance of the proximal duodenum and mesentery with narrowing of the portosplenic confluence with associated collateral formation. These findings are suboptimally assessed on unenhanced exam but similar to prior CT and may be chronic. These may reflect the sequela of chronic pancreatitis. However, a follow-up CT of the abdomen in 3 months to ensure continued stability and exclude the possibility of an underlying neoplastic process is recommended. ACT 112: Positive. There are findings on this exam that require communication between the performing entity and the patient following Patient Test Result Information Act ([place] Act 112) guidelines. Electronically signed by: Igor Roberts M.D. 09/21/2024 9:[address] 09/21/24 08:26 CT chest diagnostic wo con CT DOSE: 1318.65 mGy.cm CLINICAL HISTORY: Chest pain. TECHNIQUE: Multiaxial CT images of the chest were performed without contrast. A dose lowering technique was utilized adhering to the principles of ALARA. COMPARISON STUDY: Chest x-ray earlier today FINDINGS: Stable dialysis catheter. Stable mild elevation of the left hemidiaphragm. There is no pulmonary consolidation or pleural effusion. No pneumothorax. There are a few scattered calcified pulmonary granuloma and there are left hilar lymph node calcifications consistent with prior granulomatous disease. No enlarged adenopathy in the chest. No mediastinal hematoma. No pericardial effusion. There are severe coronary artery calcifications. There is distention of the visualized upper stomach with fluid and gas. There are mild thoracic spine degenerative changes. No acute osseous findings. IMPRESSION: No acute findings. Otherwise described. ACT 112: Negative or not required by law. Electronically signed by: Bandar Thacker M.D. 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 transplanted heart: [place] heart Qualified Code(s): I25.10 - Atherosclerotic heart disease of [place] coronary artery without angina pectoris
[2024-09-22] MEDS: fentaNYL citrate PF 100 MCG/2 ML VIAL ONE (11:51)
[2024-09-22] MEDS: HEPARIN SOD (PORCINE) 5,000 UNITS/ML VIAL ONE (11:51)
[2024-09-22] MEDS: LIDOCAINE 1% LOCAL 20 ML VIAL ONE (11:51)
[2024-09-22] MEDS: MIDAZOLAM HCL 1 MG/ML 2ML VIAL ONE (11:51)
[2024-09-22] MEDS ORDERED: Nursing to Pharmacy Communication SCH (12:00)
[2024-09-22] MEDS: INSULIN ASPART PER UNIT CHARGE SC ONE (13:03)
--- NOTE | 2024-09-22 15:07 | Pharmacy Report ---
Pharmacy Glycemic Short Note 2 - Date of Service September 22, 2024 - Glycemic Short BSG Results (Last 24 hours): 09/21/24 09/21/24 09/21/24 15:26 16:51 20:08 Glucose 186 H POC Glucose 169 H 166 H 09/22/24 09/22/24 09/22/24 00:23 05:34 05:53 Glucose 128 H POC Glucose 141 H 127 H 09/22/24 11:56 Glucose POC Glucose 122 H OUTPATIENT ANTIDIABETIC REGIMEN: * Aspart 10 u TID w/meals and glargine 22 u qAM per most recent fill history * Last A1c 8.8 on 12/31/23 ASSESSMENT: 09/22/24 * BSGs 122-128, well controlled today * Pt is no longer NPO and eating now so may need to increase basal tomorrow but for now will make no changes. 09/21/24 * 69 yo M w/PMH of ESRD on HD, HIV, CAD, HTN, T2DM who has been consulted for glycemic management. * Currently pt is NPO, will use stress factor of 2 and dose less than pt's home regimen d/t NPO status * Pt's BSG from this morning was 280; pt currently in dialysis and will likely not get a repeat until done w/session. PLAN FOR INPATIENT GLYCEMIC CONTROL: * Hold outpatient oral diabetes medications * A1c has been ordered w/tomorrows labs. * Basal insulin * Lantus 0-10 units BID based on BSG parameters * Bolus insulin * NovoLog per scale ACHS or Q6hrs while NPO * Goal Range: Low 110 mg/dL - High 140 mg/dL * Correction Factor: 30 mg/dL/unit * Nutritional / Prandial insulin per carb ratio of 1 unit per 11 grams CHO consumed
--- NOTE | 2024-09-22 17:24 | Electrocardiogram Report ---
Test Reason : Blood Pressure : */* mmHG Vent. Rate : 80 BPM Atrial Rate : 80 BPM P-R Int : 174 ms QRS Dur : 94 ms QT Int : 406 ms P-R-T Axes : 46 -15 -35 degrees QTcB Int : 468 ms Sinus rhythm with occasional Premature ventricular complexes Lateral infarct , age undetermined Inferior infarct , age undetermined T wave abnormality, consider anterior ischemia ; could also be due to "T wave memory" from LBBB Abnormal ECG When compared with ECG of 21-Sep-2024 07:28, Left bundle branch block is no longer Present Lateral infarct is now Present Inferior infarct is now Present Confirmed by Himanshu Dean ([id number]) on 09/22/2024 5:24:04 PM Referred By: REFERRED SELF Confirmed By: Himanshu Dean
[2024-09-22] MEDS: INSULIN ASPART PER UNIT CHARGE SC SCH (18:19)
[2024-09-22] MEDS: ACETAMINOPHEN 325 MG TAB PO PRN (19:31)
[2024-09-23 06:39] LABS: Basophils # (auto) 0.02 K/uL (0.00-0.20); Basophils % (auto) 0.4 %; Eosinophils # (auto) 0.13 K/uL (0.00-0.50); Eosinophils % (auto) 2.5 %; Hematocrit (blood only) 30.8 % (42.0-52.0); Hemoglobin 10.2 g/dl (14.0-18.0); Immature Granulocytes # (auto) 0.02 K/uL (0.01-0.20); Immature Granulocytes % (auto) 0.4 %; Lymphocytes # (auto) 1.09 K/uL (1.20-3.40); Lymphocytes % (auto) 21.3 %; Mean Corpuscular Hemoglobin 27.4 pg (25.0-34.0); Mean Corpuscular Hgb Conc 33.1 g/dL (32.0-36.0); Mean Corpuscular Volume 82.8 fL (80.0-100.0); Mean Platelet Volume 8.9 fL (9.4-12.4); Monocytes # (auto) 0.61 K/uL (0.11-0.59); Monocytes % (auto) 11.9 %; Neutrophils # (auto) 3.24 K/uL (1.40-6.50); Neutrophils % (auto) 63.5 %; Platelet Count 187 K/uL (130-400); RDW Coefficient of Variation 13.5 % (11.5-14.5); RDW Standard Deviation 40.4 fL (36.4-46.3); Red Blood Count 3.72 M/uL (4.70-6.10); White Blood Count 5.11 K/ul (4.8-10.8)
[2024-09-23 06:51] LABS: Albumin Level 3.6 gm/dl (3.4-5.0); Bilirubin,Total 0.5 mg/dl (0.2-1.0); Calcium 9.4 mg/dl (8.6-10.3); Magnesium 2.2 mg/dl (1.7-2.4)
[2024-09-23 07:22] LABS: Total Protein 5.6 gm/dl (6.0-8.3)
[2024-09-23 07:23] LABS: Albumin Globulin Ratio 1.8 (0.9-2); BUN Creatinine Ratio 13.6 (10-20); Creatinine Clr Calc Pharmacy 26.1 ml/min; Phosphorus 2.4 mg/dl (2.5-4.9)
--- NOTE | 2024-09-23 09:06 | Gastroenterology Progress Note ---
Date of Service September 23, 2024 Assessment & Plan (1) Chronic pancreatitis: Plan: Suspect episode of abdominal pain was due to a flare of his chronic pancreatitis which is now resolved. Continue to advance his diet as tolerated. He should be on a low-fat diet. He should follow-up with GI as an outpatient. Admission and Anticipated Discharge Date Admission Date: September 21, 2024 Subjective Denies abdominal pain shortness of breath or chest pain. Tolerating food without abdominal pain. Physical Exam Physical Exam: No acute distress Respiratory rate regular Cardiac rhythm regular Abdomen soft nontender Results & Data Results & Data Vital Signs (Past 12 Hours) Vital Signs Temp Pulse Pulse Resp BP Pulse Ox O2 Del Method 09/23/24 08:29 36.8 C 74 16 120/71 97 Room Air 09/23/24 07:40 Room Air 09/23/24 07:17 76 09/23/24 02:33 36.5 C 73 16 96/56 L 98 Room Air 09/22/24 22:22 36.6 C 79 18 95/50 L 94 Room Air 09/22/24 21:54 77 PG Care Time/CCT Total # of Minutes Spent Total Time Spent with Patient: Total time spent is greater than 50% in coordination of care (as documented) at patient's floor/unit and/or counseling patient: Coding Level of Care Code 85533 SUB INP/OBS CARE 2/35MIN Diagnoses Chronic pancreatitis K86.1
[2024-09-23] MEDS: CHOLECALCIFEROL 125 MCG (5,000 UNITS) TAB PO SCH (09:28)
[2024-09-23] MEDS: POT PHOSPHATE MONOBASIC W/ SOD TAB PO STA (09:29)
[2024-09-23 11:29] VITALS: O2SAT 96
--- NOTE | 2024-09-23 11:41 | Discharge Summary ---
Discharge Summary Date of Service September 23, 2024 Principal Dx & Hospital Course #1 = Principal Diagnosis (1) ESRD (end stage renal disease) on dialysis: (2) HIV (human immunodeficiency virus infection): (3) Hypertension: (4) DM type 2 (diabetes mellitus, type 2): (5) Prolonged QT interval: (6) CAD (coronary artery disease): (7) Lymphadenopathy: Plan 69 year old male with PMhx significant for ESRD on HD, HIV, HFpEF (EF 65-70%, ECHO 01/04), CAD status post stent (2017), chronic LBBB, HTN, HLD, HIV on Rx for many years, insulin dependent diabetes, H/O pancreatitis, history of kidney stones in the past, history colonic polyps/internal hemorrhoids, anal HGSIL as per records, urolithiasis, mood disorder, past tobacco and alcohol abuse presenting with a malfunctioning dialysis port, exertional chest pain/SOB and esophagitis/gastritis symptoms. ESRD on HD Started HD in December 2023; T/R/Sa; recently missed a few treatments due to illness Port was placed in December, had revision in 09/05 at [facility]. Follows at [place] for possible transplant. Creatinine 3.18; baseline 3-4 Does not appear volume overloaded; if anything more dry due to recent weight loss Nephrology consulted, recommended/stated the following -s/p port replacement on 09/22/24 with vascular Surgery -had dialysis w/o removal of fluid Stable from renal standpoint for discharge Please ensure close follow-up with nephrology and vascular surgery after discharge Per nephrology next dialysis session on Thursday September 26, 2024 Esophagitis/Gastritis GERD KUB done; no masses; gas distension CT Abd/pelvis notin concern for esophagitis/gastritis, chronic pancreatitis and recommending repeat imaging in 3 months to exclude underlying neoplastic processes. pantoprazole 40mg BID Also added Sucralfate PO QID temporarily- per nephrology short term use only in dialysis patients, do not discharge on this GI consulted, recommended/stated the following: - "Suspect episode of abdominal pain was due to a flare of his chronic pancreatitis which is now resolved. Continue to advance his diet as tolerated. He should be on a low-fat diet. He should follow-up with GI as an outpatient." -no need for repeat EGD at this time -treating like a chronic pancreatitis picture patient was discharged with pantoprazole 40 mg twice daily Advised to continue with a low-fat diet at home Close PCP and GI follow-up after discharge Chest pain with exertion: Prolonged QTc: LBBB: PVC's Received Morphine 4 mg IV in ED with relief Most recent ECHO EF65-70%, Repeat ECHO EKG, known LBBB; prolonged QTc 522 (his HIV tx; Juluca, can cause this; will hold for now) with occasional PVC'; daily EKG Follows with Outpatient Cardiology (Dr. Mota) last appt 03/06. Had an exercise stress in January 2023 with a mildly reduced EF 45-49% with posterior wall abnormality with hypokinesis akinesis, GIDDx. outpatient nuclear stress test in April 2024 which revealed old inferior wall [place] with scar but no inducible ischemia Avoid QTc prolonging medications Cardiology consultation placed, recommended/stated the following: -noncardiac chest pain "Continue aspirin, Effient, nifedipine, and metoprolol as ordered. No further inpatient testing recommended at this time." Daily EKGs patient's QTc improved on discharge and he was advised to continue with his HIV treatment Juluca with close infectious disease follow-up. Close PCP follow-up as well for continued QTc monitoring HIV: Chronic, stable Takes Juluca; held as this could be contributing to his prolonged QTc admits to missing his medication intermittently Most recent CD4 571 and VL 133 in 02/2024 He has refused STD testing in the past Follows with Infectious Disease outpatient patient's QTc improved on discharge and he was advised to continue with his HIV treatment Juluca with close infectious disease follow-up. Lymphadenopathy: Noted on Abdomen and Pelvis CT "Prominent adjacent lymph nodes may be reactive and can be assessed on follow-up studies. Imaging follow-up to ensure resolution and exclude the possibility of an underlying lesion is recommended." Repeat CT recommended in 3 months PCP followup HTN: Chronic stable Takes Metoprolol and Nifedipine; continue HLD: Chronic Stable Takes atorvastatin;continue IDDM2: Chronic Stable Takes novolog and Lantus (10 units QAM) Last A1C 01/04: 8.8; recheck while here Glycemic pharmacy consult CAD: Chronic stable S/P stent 2017 Last ECHO 01/04: EF 65-70%, takes baby ASA and Prasugrel; continue L humerus fracture: mechanical fall on 09/07; slipped onblack ice Left humerus fracture with < 1 cm displacement Follows with Ortho and PT as outpatient Has prescribed sling; noncompliant with it PCP follow-up Notes For Next Care Provider please ensure close follow-up with gastroenterology, nephrology and infectious disease after discharge QTc within normal limits on discharge-patient advised to continue with home HIV med with close infectious disease specialist followup repeat CT abdomen pelvis in 3 months for noted lymphadenopathy and other imaging findings (see CT abdomen pelvis results listed below) Medication Changes From Visit Pantoprazole 40 mg twice daily renewed Admission HPI Per Admitting Provider PER ADMITTING PROVIDER: Mr. Silvestre is a 69 year old male with ESRD on HD presented to the [facility] from hemodialysis. Patient has been having challenges with his port during dialysis and today was only able to complete one hour worth of HD. He recently had a port revision in August 2024. Separately, he said that he missed two HD sessions (Wednesday and Wednesday) because he was feeling ill. He states that he has not felt well since Friday 09/15. He reports anterior chest pain and abdominal discomfort with vomiting and acid reflux tasting in his mouth. He also states that he has unintentionally lost about 8lbs over the past few weeks and feels short of breath with ambulation and exercise; that resolves at rest. He also, unfortunately sustained a fall delivering holiday dinner to his family where he slipped and fell on ice; fracturing his left humerus with < 1 cm displacement; being managed conservatively and he is following with Orthopedics and is to be wearing a sling. Additional PMH includes: HFpEF (EF 65-70%, ECHO 01/04), CAD status post stent (2017), chronic LBBB, HTN, HLD, HIV on Rx for many years, insulin dependent diabetes, H/O pancreatitis, history of kidney stones in the past, history colonic polyps/internal hemorrhoids, anal HGSIL as per records, urolithiasis, mood disorder, past tobacco and alcohol abuse. Had an exercise stress in January 2023 with a mildly reduced EF 45-49% with posterior wall abnormality with hypokenesis akinesis, GIDDx. Per review of most recent ECHO, his EF has improved. Abdomen and Pelvis CT: revealed moderate wall thickening at the GE junction with adjacent stranding. This favors esophagitis/gastritis. No extraluminal gas. Prominent adjacent lymph nodes may be reactive and can be assessed on follow-up studies. Imaging follow-up to ensure resolution and exclude the possibility of an underlying lesion is recommended. Alternately, endoscopy could be performed. No evidence for a bowel obstruction. Colonic diverticulosis. No evidence for acute diverticulitis. Findings consistent with chronic pancreatitis. Multiple pancreatic parenchymal calcifications as well as suspected intraductal calculi. No evidence for acute pancreatitis. Tethered appearance of the proximal duodenum and mesentery with narrowing of the portosplenic confluence with associated collateral formation. These findings are suboptimally assessed on unenhanced exam but similar to prior CT and may be chronic. These may reflect the sequela of chronic pancreatitis. However, a follow-up CT of the abdomen in 3 months to ensure continued stability and exclude the possibility of an underlying neoplastic process is recommended. A KUB was performed without evidence of masses of calcifications; gastric dis tension caused by gas. No leukocytosis, mild hyponatremia likely secondary to, creatinine 3.18; baseline is 3-4; receives hemodialysis T/R/Sa for many years; he has missed a treatment due to illness; he went to HD today and the treatment went poorly; terminating treatment after one hour. His lipase is normal. Biofire negative. Most recent ECHO Recent complex admission 12/31/23-01/14/24 and was followed by a variety of specialists including Nephro, ID, GI and ICU for YASIR in the setting of severe volume depletion from diarrhea; he also underwent a ureteric stent placement (12/31/23) for obstructive uropathy and he also was in the ICU for a brief time as he went into septic shock/metabolic acidosis requiring inotropic support. Last colonoscopy during admission in December showed polyps x 3, which were removed, and diverticulosis. Pt denies lightheadedness, dizziness, SOB, chest pain, N/V/D, recent falls or trauma. Denies tobacco or alcohol use. On examination, he is AAOx3 and able to hold full meaningful conversation. He does not have any adventitious lung sounds and no edema. S1S2 auscultated. No edema. Patient seen in collaboration with Dr. Waggoner. Patient will be admitted for numerous medical conditions includin. further evaluation for his ESRD and port access. We will involve Nephrology and possibly vascular 2. Prolongation of QTc, exertional chest pain and SOB: Given cardiac history; with a repeat ECHO, trend Trop; hold Juluca as could be contributing to prolongation of QTc ; daily EKG. Involve Cardiology 3. esophagitis/gastritis; check TSH, involve GI and start Carafate short term. May require repeat EGD. Will involve GI. 4. Suspect something more complex may be going on given the lymphadenpathy and recent unintentional weight loss this individual has endured. May require biopsy at some point. Admission Exam Per Admitting Provider Neuro: AAOx4, PERRLA, no aphagia, memory changes, CNII-XII grossly intact HEENT: head normocephalic, moist mucus membranes CV: S1/S2, (-) M/G/R, (-) edema, cap refill < 3 seconds Resp: Lungs CTA in all abdalla. On RA GI: Abdomen S/NT/ND, Ax4 bowel sounds, (-) CVA tenderness Musculoskeletal: 5/5 B/L UE strength, 5/5 B/L LE strength. No gait disturbance Skin: (-) rashes , (-) erythema. Psych: euthymic mood Discharge Exam General: Alert, oriented. No acute distress Psych: Appropriate mood and affect Neuro: No gross deficits HEENT: NC/AT CV: RRR Resp: Breath sounds clear bilaterally, no increased effort of breathing Abdomen: Soft, nontender Extremities: No edema in lower extremities bilaterally. Updated Medication List Medication Instructions Recorded Confirmed Type atorvastatin 40 mg tablet 40 mg PO QAM 01/06/22 09/21/24 History dolutegravir 50 mg-rilpivirine 25 1 tab PO QAM 01/06/22 09/21/24 History mg tablet (Juluca) fluoxetine 20 mg capsule 20 mg PO QAM 01/06/22 09/21/24 History multivitamin 1 tab PO QAM 01/06/22 09/21/24 History aspirin 81 mg tablet,delayed 81 mg PO QAM 12/30/23 09/21/24 History release cholecalciferol (vitamin D3) 25 25 mcg PO QAM 12/30/23 09/21/24 History mcg (1,000 unit) capsule (Vitamin D3) coenzyme Q10 10 mg capsule (Co 10 mg PO DAILY 12/30/23 09/21/24 History Q-10) metoprolol succinate 25 mg 25 mg PO QAM 12/30/23 09/21/24 History tablet,extended release 24 hr insulin glargine 100 unit/mL (3 10 unit (0.1 mL) subcut QAM #0 mL 01/14/24 09/21/24 Rx mL) subcutaneous pen (Basaglar KwikPen U-100 Insulin) prasugrel 10 mg tablet 10 mg PO QAM #30 tabs 01/14/24 09/21/24 Rx levothyroxine 25 mcg tablet 25 mcg PO QAM 01/23/24 09/21/24 History nifedipine 30 mg tablet,extended 30 day PO DAILY ##0 03/20/24 09/21/24 History release insulin aspart 10 unit subcut TIDWMEAL 09/21/24 09/21/24 History (niacinamide)(U-100) 100 unit/mL(3 mL) subcutaneous pen (Fiasp FlexTouch U-100 Insulin) pantoprazole 40 mg tablet,delayed 40 mg PO BID #60 tabs 09/23/24 Rx release Hospital Stay Data Consultations 09/21/24 11:14 ED Decision to Admit Stat 09/21/24 11:39 Consult Nephrology Routine 09/21/24 12:43 Consult Cardiology Routine Consult Gastroenterology Routine 09/21/24 14:43 Consult Vascular Surgery Routine 09/22/24 14:47 Consult Infectious Diseases Routine Procedures Performed Operation Date: 09/22/24 07:50 Actual Procedures p Perm Catheter Exchange, Fluoroscopy for Postioning(Right) - Ezra Fuller MD Diagnostic Imagining Performed 09/21/24 08:26 CT abd pelvis wo con Stat CT chest diagnostic wo con Stat 09/22/24 10:29 EV cvc replace tunnel wo pp Routine Chest X-Ray 09/21/24 07:31 EXAM: XR chest 1V portable CLINICAL HISTORY: CHEST/ABD PAIN JMT TECHNIQUE: An X-ray image of the chest is obtained in frontal projection. COMPARISON: No prior studies are available for comparison. FINDINGS: Right central vascular access with its tip reaching the right side of the heart, possibly at right atrium. Elevated left copula of the diaphragm with underlying marked gastric distension. Pulmonary Parenchyma: Prominent bronchovascular markings bilateral and hilar vessels, advised for clinical correlation. No evidence of consolidation, collapse, or focal opacities. No pulmonary nodules are identified. No evidence of pleural effusion or pleural thickening. Heart and Mediastinum: Apparent cardiomegaly with dilated unfolded aorta. No mediastinal widening or masses. No hilar or mediastinal lymphadenopathy. Bony Thorax: Bony thorax appears intact without fractures or deformities. Soft Tissues: Soft tissues overlying the chest wall are unremarkable. IMPRESSION: 1. Right central vascular access with its tip reaching the the right side of the heart, possibly at right atrium. 2. Elevated left copula of the diaphragm with underlying marked gastric distension. 3. Prominent bronchovascular markings bilateral and hilar vessels, advised for clinical correlation. 4. Apparent cardiomegaly with dilated unfolded aorta. Electronically signed by Jama Garcia 09-21-2024 08:35 AM KUB X-Ray 09/21/24 07:31 EXAM: XR KUB/Abdomen 1 view CLINICAL HISTORY: CHEST/ABD PAIN. TECHNIQUE: X-ray images of the abdomen were obtained in frontal projection. COMPARISON: No prior studies are available for comparison. FINDINGS: Gas Pattern: Gastric distension by gas seen No evidence of small or large bowel obstruction or distention. Soft Tissues: Soft tissues of the abdomen appear normal without evidence of masses or calcifications. Liver, spleen, and kidneys are of normal size and position. Right hypochondriac surgical clips seen IMPRESSION: 1. Gastric distension by gas seen. 2. Right hypochondriac surgical clips seen. [id number]. Advised for clinical correlation and further work-up if clinically warranted (CT study of abdomen /OBX.5.1.1OBX.5.1.2 Pelvis)./OBX.5.1.2/OBX.5.1 Electronically signed by Jama Garcia 09-21-2024 08:27 AM Abdomen/Pelvis CT 09/21/24 08:26 CT OF THE ABDOMEN AND PELVIS WITHOUT CONTRAST CLINICAL HISTORY: Abdominal pain. COMPARISON STUDY: CT of the abdomen and pelvis March 09, 2024. KUB performed earlier today. TECHNIQUE: Axial images of the abdomen and pelvis were obtained without IV contrast. Images were reviewed in the axial, sagittal, and coronal planes. Automated exposure control was utilized for the study. A dose lowering technique was utilized adhering to the principles of ALARA. FINDINGS: No pneumatosis, free air or portal venous gas is present. Mild biliary ductal dilatation is unchanged and likely related to cholecystectomy. No hepatic lesions are identified on unenhanced exam. Mild splenomegaly is unchanged. No renal, ureteral or bladder calculi are present. There is no hydronephrosis. Water attenuation bilateral renal lesions are suboptimally assessed on unenhanced exam but favor cysts. Small subcentimeter hypodense right lower pole renal lesion is indeterminate but may represent a hyperdense cyst. There is mild wall thickening at the gastric esophageal junction with adjacent stranding. There is no extraluminal gas. Prominent gastrohepatic ligament lymph nodes measure up to 2 x 0.8 cm. The stomach is mildly distended fluid-filled. Multiple pancreatic parenchymal calcifications are again noted. Mild pancreatic ductal dilatation is similar to prior CT. There are several suspected intraductal calculi which measure up to 1.1 x 0.5 cm. No peripancreatic stranding is noted. Mesenteric stranding is similar to prior exam. Associated prominent mesenteric lymph nodes are unchanged. Index node on image 155 measures 1.1 x 0.7 cm. Tethered appearance of the mesentery and proximal duodenum is unchanged. Upper abdominal collaterals are again noted. Narrowing of the portosplenic confluence is suboptimally assessed on unenhanced exam. There is no evidence for a bowel obstruction. Colonic diverticulosis without evidence for acute diverticulitis. No pelvic lymphadenopathy is present. IMPRESSION: 1. Moderate wall thickening at the GE junction with adjacent stranding. This favors esophagitis/gastritis. No extraluminal gas. Prominent adjacent lymph nodes may be reactive and can be assessed on follow-up studies. Imaging follow- up to ensure resolution and exclude the possibility of an underlying lesion is recommended. Alternately, endoscopy could be performed. 2. No evidence for a bowel obstruction. Colonic diverticulosis. No evidence for acute diverticulitis. 3. Findings consistent with chronic pancreatitis. Multiple pancreatic parenchymal calcifications as well as suspected intraductal calculi. No evidence for acute pancreatitis. 4. Tethered appearance of the proximal duodenum and mesentery with narrowing of the portosplenic confluence with associated collateral formation. These findings are suboptimally assessed on unenhanced exam but similar to prior CT and may be chronic. These may reflect the sequela of chronic pancreatitis. However, a f ollow-up CT of the abdomen in 3 months to ensure continued stability and exclude the possibility of an underlying neoplastic process is recommended. ACT 112: Positive. There are findings on this exam that require communication between the performing entity and the patient following Patient Test Result Information Act ([place] Act 112) guidelines. Electronically signed by: Igor Roberts M.D. 09/21/2024 9:[address] 09/21/24 08:26 CT chest diagnostic wo con CT DOSE: 1318.65 mGy.cm CLINICAL HISTORY: Chest pain. TECHNIQUE: Multiaxial CT images of the chest were performed without contrast. A dose lowering technique was utilized adhering to the principles of ALARA. COMPARISON STUDY: Chest x-ray earlier today FINDINGS: Stable dialysis catheter. Stable mild elevation of the left hemidiaphragm. There is no pulmonary consolidation or pleural effusion. No pneumothorax. There are a few scattered calcified pulmonary granuloma and there are left hilar lymph node calcifications consistent with prior granulomatous disease. No enlarged adenopathy in the chest. No mediastinal hematoma. No pericardial effusion. There are severe coronary artery calcifications. There is distention of the visualized upper stomach with fluid and gas. There are mild thoracic spine degenerative changes. No acute osseous findings. IMPRESSION: No acute findings. Otherwise described. ACT 112: Negative or not required by law. Electronically signed by: Bandar Thacker M.D. 09/21/2024 9:06 AM Discharge Instructions Given to Patient (Per Discharging Provider) Tad, You were admitted as your dialysis port was not functioning. You had it replaced by vascular surgery and you had dialysis completed. Please keep close follow-up with nephrology and vascular surgery after discharge. Nephrology notes that your next dialysis session is on Wednesday. You are also seen by the knocker out who notes that your chest pain was not cardiac in nature. The supervisor cutting department also evaluated you and determined that you have chronic pancreatitis. They do recommend that you continue with a low-fat diet at home. They also recommend that you continue with the pantoprazole 40 mg twice a day. We did hold your home HIV medication due to a prolonged QTc noted on your EKG. That has improved. You can continue with your medication at home but we would recommend that you follow-up with your primary care provider as well as your infectious disease specialist about continued use of this medication and possibly switching to an alternative. Your abdomen CT pelvis did note some possibly reactive lymph nodes. It is recommended that you have a repeat CT scan done in about 3 months. Your primary care provider can help you with getting that scheduled. Please keep close follow up with your primary care provider, Data Compiler, and supervisor cutting department as well as your infectious disease specialist after discharge. Please do not hesitate to come back to the emergency room if your symptoms worsen or return. It was a pleasure taking care of you while you were here. Total Time Total Time Spent Total Time Spent (In Minutes): 65
[2024-09-23 16:03] VITALS: BP 96/61; PULSE 80; RESP 18; TEMP 97.7
--- NOTE | 2024-09-23 16:38 | Nephrology Progress Note ---
Date of Service September 23, 2024 Assessment & Plan (1) End stage chronic kidney disease: Plan: patient is ESRD on chronic hemodialysis Wednesday. He had about 1 hour of dialysis at the outpatient unit and after that had to be sent to the hospital because of chest pain nausea vomiting. Patient tolerated dialysis well yesterday. Electrolytes are stable no signs of volume overload. From renal standpoint patient can be discharged continue dialysis outpatient on Wednesday. his AV fistula is not yet ready but hopefully soon will be Admission and Anticipated Discharge Date Admission Date: September 21, 2024 Subjective seen for ESRD. He had dialysis yesterday. No shortness of breath. No leg swelling. Review of Systems 2 Review of Systems: All other systems were reviewed and negative except as noted in HPI Physical Exam 2 Physical Exam: General exam: Appears comfortable, no acute distress HEENT: Pupils are equal and reactive to light Neck: No JVD, neck is supple trachea is midline Respiratory system: Clear breath sounds bilaterally. Gastrointestinal: Abdomen is soft, non distended, non tender, bowel sounds are present CVS: Regular rate and rhythm. No murmurs, rubs or gallops Musculoskeletal: No joint or muscle tenderness Extremities: Non tender, no edema, peripheral pulses are present Neuro: Oriented, no tremors, no focal neurological deficits Skin: No rashes Results & Data Vital Signs (Past 12 Hours) Vital Signs Temp Pulse Pulse Resp BP BP Pulse Ox 09/23/24 16:08 36.5 C 80 18 117/68 96/61 L 96 09/23/24 16:02 36.5 C 80 18 96/61 L 96 09/23/24 15:26 87 09/23/24 11:28 36.8 C 86 16 116/70 96 09/23/24 08:29 36.8 C 74 16 120/71 97 09/23/24 07:40 09/23/24 07:17 76 O2 Del Method 09/23/24 16:08 09/23/24 16:02 Room Air 09/23/24 15:26 09/23/24 11:28 Room Air 09/23/24 08:29 Room Air 09/23/24 07:40 Room Air 09/23/24 07:17 Laboratory Results 09/23/24 06:04 09/23/24 06:04 WBC 5.11 RBC 3.72 L MCV 82.8 MCH 27.4 MCHC 33.1 RDW Std Deviation 40.4 RDW Coeff of Meera 13.5 Plt Count 187 MPV 8.9 L Phosphorus 2.4 L Albumin 3.6
[2024-09-23] MEDS ORDERED: LANTUS PER UNIT CHARGE SQ SCH (21:00)
--- NOTE | 2024-09-25 06:13 | Electrocardiogram Report ---
Test Reason : Blood Pressure : */* mmHG Vent. Rate : 74 BPM Atrial Rate : 74 BPM P-R Int : 186 ms QRS Dur : 98 ms QT Int : 422 ms P-R-T Axes : 63 -18 -6 degrees QTcB Int : 468 ms Sinus rhythm with occasional Premature ventricular complexes Inferior infarct (cited on or before 21-Sep-2024) T wave abnormality, consider anterior ischemia Abnormal ECG When compared with ECG of 21-Sep-2024 19:41, Nonspecific T wave abnormality has replaced inverted T waves in Anterolateral leads Confirmed by Armando Skinner ([id number]) on 09/25/2024 6:13:02 AM Referred By: REFERRED SELF Confirmed By: Armando Skinner
== END 2024-09-23 16:56 | disposition home or self-care (01) | DRG 698 ==
LOC: ED 07:13 → SUATTDRO 11:39 → EDINP 11:39 → 2N 16:33 → 2W 09-23 00:59

== ENCOUNTER 2024-12-23 05:41 | Inpatient (IN) ==
--- OUTSIDE RECORDS SUMMARY | 2024-12-23 05:48 | External Medical Summary | Summary of Care ---
Author Name Unknown Organization [facility] Address [address] [place] [address] Phone [phone] Care Team Providers Care Telecommunications Technician Name Role Phone Antonio Colon MD Primary Care Provider [phone] Reason for Referral * Evaluate & Treat - Unlimited Visits (Within 10 days (routine)) - Authorized Specialty Diagnoses / Procedures Referred By Marques garg Referred To Contact Physical Therapy / Physical Medicine And Rehab Diagnoses Closed displaced fracture of greater tuberosity of left humerus with routine healing, subsequent encounter Delgado Dunn MD [address] [place] [address] Phone: tel: fax: Referral ID Status Reason Start Date Expiration Date Visits Requested Visits Authorized [id number] Authorized Specialty Services Required 12/13/2024 999 999 Question Answer Referral Priority Within 10 days (routine) Where should this appointment be scheduled? [facility] Comments Left nondisplaced proximal humerus fracture Increased range of motion, increase strength Home Thera-Band program Modalities as needed 2 to 3 times a week for 6-8 weeks Encounter Details Date Type Department Care Team (Late st Contact Info) Description 12/13/2024 Orders Only Orthopaedics [facility] [address] [place] [phone] Delgado Dunn MD [address] [place] [phone] Closed displaced fracture of greater tuberosity of left humerus with routine healing, subsequent encounter* Allergies No known active allergiesdocumented as of this encounter (statuses as of 12/13/2024) Medications Co Q 10 10 MG Oral Capsule Take by mouth 1 Caplet Dosing Unit daily . Active Aspirin 81 MG Oral Capsule Take by mouth 1 Caplet Dosing Unit daily . Active Multi-Day Oral Tablet Take by mouth 1 Tablet in the morning. Active Vitamin D-3 25 MCG (1000 UT) Oral Capsule Take 1 Capsule by mouth in the morning. Active Juluca 50-25 MG Oral Tablet Take 1 Tablet by mouth daily. 90 Tablet 3 4 Active Additional Information Patient not taking.Reported on 11/29/2024 Pen [place] 32G X 4 MM Use as directed. Use to inject insulin 4 times daily E11.9 400 Each 3 4 Active FLUoxetine HCl 20 MG Oral [...] Tablet 3 4 Active FreeStyle Carlos 2 SensorIndication s:Type [...] 4 Active Juluca 50-25 MG Oral Tablet (Dolutegravir-Ri lpivirine) Take 1 Tablet by mouth daily. 30 Tablet 11 4 08/17/20 25 Active FreeStyle Carlos 2 [place] DeviceIndication s:Type 2 diabetes mellitus with hemoglobin A1c goal of less than 8.0% ([facility]) USE DIRECTED. 1 Each 1 4 Active Metoprolol Succinate ER 25 MG Oral Tablet Extended Release 24 Hour (toPROL XL)Indications:C oronary artery disease involving [place] coronary artery of [place] heart without angina pectoris TAKE 1 TABLET BY MOUTH EVERY DAY IN THE MORNING 90 Tablet 3 5 Active Atorvastatin Calcium 40 MG Oral Tablet (Lipitor)Indicat ions:Dyslipidemi a, goal LDL below 70 TAKE 1 TABLET BY MOUTH EVERY DAY IN THE MORNING 90 Tablet 5 Active Sevelamer Carbonate 800 MG Oral Tablet (Renvela) TAKE 1 TABLET BY MOUTH THREE TIMES A DAY WITH MEALS 5 Active Prasugrel HCl 10 MG Oral Tablet (Effient)Indicat ions:Coronary artery disease involving [place] coronary artery of [place] heart without angina pectoris TAKE 1 TABLET BY MOUTH EVERY DAY IN THE MORNING 90 Tablet 3 5 Active Hospital, Clinic, or Other Facility Administered [...] as of this encounter (statuses as of 12/13/2024) Active Problems Problem Noted Date Diagnosed Date ESRD on dialysis 10/25/2024 Idiopathic chronic pancreatitis 10/16/2024 Iron deficiency anemia due to chronic blood loss 08/24/2024 HIV disease 08/23/2024 AVF (arteriovenous fistula) 07/19/2024 ESRD (end stage renal disease) on dialysis 02/01 Duodenal ulcer 02/02/2024 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 05/07/2023 Recurrent major depressive disorder, in full rem ission 05/05/2022 Overweight (BMI 25.0-29.9) 05/02/2022 Dyslipidemia 05/02/2022 Coronary artery disease invo lving [place] coronary artery of [place] heart without angina pectoris 05/02/2022 Type 2 diabetes mellitus wit h hemoglobin A1c goal of less than 8.0% 05/02/2022 Old [place] (myocardial infarction) 05/02/2022 Chronic systolic (congestive) heart failure 04/14 Left bundle branch block 05/02/2022 HTN, goal below 130/80 documented as of this encounter (statuses as of 12/13/2024) Resolved Problems Problem Noted Date Diagnosed Date Resolved Date Catheter-related bloodstream infection 08/25/2024 09/01/2024 Fever 08/24/2024 09/01/2024 Rigors 08/22/2024 09/01/2024 History of GI bleed 02/02/2024 10/16/19 Overview (02/02/2024): Duodenal ulcer Chronic heart failure with p reserved ejection fraction 11/24/2022 02/04/2023 Kidney disease, chronic, sta ge IV (GFR 15-29 ml/min) 05/02/2022 02/02/2024 ARDS (adult respiratory distress syndrome) 06/17/2012 05/02/2022 Acute pancreatitis 06/14/2012 Acute respiratory distress 06/14/2012 0 05/02/2022 HIV positive 10/16/2024 documented as of this encounter (statuses as of 12/13/2024) Immunizations Name Administration Dates Next Due COVID-19 [...] 09/01/2024 Does the household have a re lar [...] ages 0-17 years) Not on file 09/01/2024 Food Insecurity Answer Date Recorded Within the past 12 months, y ou worried that your food would run out before you got the money to buy more. Never true 09/01/20 24 Within the past 12 months, t he food you bought just didn't last and you didn't have money to get more. Never true 09/01/2024 Do you need food for this week? No 09/01/2024 Sex and Gender Information Value Date [...] doing errands alone such as visiting a doctor’s office or shopping? (15 years old or [...] Care Team (Late st Contact Info) Description 01/01/2025 10:30 AM EDT Office Visit Orthopaedics [facility] [address] [place] [phone] Delgado Dunn MD [address] [place] [phone] Scheduled Procedures Name Priority Associated Diagnoses Date/Ti me COLONOSCOPY FLEXIBLE PROXIMA L DIAGNOSTIC Recall History of colonic polyps Scheduled Referrals Name Type Priority Associated Diagnoses Orde r Schedule PHYSICAL THERAPY REFERRAL OP Referral Within 10 days (routine) Closed displaced fracture of greater tuberosity of left humerus with routine healing, subsequent encounter Ordered: 12/13/2024 Health Maintenance Due Date Last Done Comments [...] on patient's age to complete this topic Meningitis B Vaccine (Bexsero/Trumemba) Aged Out No longer eligible based on patient's age to complete this topic documented as of this encounter Medical Devices Not on filedocumented as of this encounter Visit Diagnoses Diagnosis Closed displaced fracture of greater tuberosity of left humerus with routine healing, subsequent encounter- Primary documented in this encounter Advance [...] Healthcare Agent Relationshi p Communication Lorin Silvestre [facility] Care Repr esentative (appointed verbally by patient or by statute hierarchy) Care Teams Telecommunications Technician Relationship Specialty Start Date End Date Antonio Colon MD [address] [place] [phone] PCP - General Family Medicine 02/12/22 documented as of this encounter
--- OUTSIDE RECORDS SUMMARY | 2024-12-23 05:48 | External Medical Summary | Summary of Care ---
Author Name Unknown Organization [facility] Address [address] [place] [address] Phone [phone] Care Team Providers Care Fruit Sprayer Name Role Phone Antonio Colon MD Primary Care Provider [phone] Reason for Visit * Reason Comments Post-Op Encounter Details Date Type Department Care Team (Late st Contact Info) Description 11/29/2024 1:10 PM EDT Office Visit Vascular Surgery, [facility] [address] [place] [address] Benjamin Cartagena MD [address] [place] [address] AVF (arteriovenous fistula) ([facility]; ESRD on dialysis ([facility]) Allergies No known active allergiesdocumented as of this encounter (statuses as of 11/29/2024) Medications Co Q 10 10 MG Oral [...] by mouth daily. 90 Tablet 3 Active Additional Information Patient not taking.Reported on 11/29/2024 Pen [place] 32G X 4 MM Use as directed. [...] A1c goal of less than 8.0% ([facility]) Use as directed. Use [...] 4 08/17/20 25 Active FreeStyle Carlos 2 [place] DeviceIndication s:Type 2 diabetes mellitus with hemoglobin A1c goal of less than 8.0% (HCC) USE DIRECTED. 1 Each 1 4 Active Metoprolol Succinate ER 25 MG Oral Tablet Extended Release 24 Hour (toPROL XL)Indications:C oronary artery disease involving [place] coronary artery of [place] heart without angina pectoris TAKE 1 TABLET [...] Oral Tablet (Effient)Indicat ions:Coronary artery disease involving [place] coronary artery of [place] heart without angina pectoris TAKE 1 TABLET [...] inhalation solution 2.5 mgIndications:ESRD on dialysis ([facility]),Pre-transplant evaluation for ESRD (end stage renal disease) 2.5 mg NEBULIZER PRN 03/24/2024 Acti ve documented as of this encounter (statuses as of 11/29/2024) Active Problems Problem Noted Date Diagnosed Date [...] Dyslipidemia 05/02/2022 Coronary artery disease invo lving [place] coronary artery of [place] heart without angina pectoris 05/02/2022 Type 2 diabetes mellitus wit h hemoglobin A1c goal of less than 8.0% 05/02/2022 Old [place] (myocardial infarction) 05/02/2022 Chronic systolic (congestive) heart failure 04/14 Left bundle branch block 05/02/2022 HTN, goal below 130/80 documented as of this encounter (statuses as of 11/29/2024) Resolved Problems Problem Noted Date Diagnosed Date [...] as of this encounter (statuses as of 11/29/2024) Immunizations Name Administration Dates Next Due COVID-19 mRNA, LNP-s, No Pre serve, 2-Dose Series (Moderna) 11/27/2020,10/24/2020 COVID-19, MRNA-LNP, PF, 50 M CG/0.5 mL, 12 YRS AND ABOVE, IM (MODERNA-Spikevax) 08/05/2021 Covid-19, Mrna, Lnp-s, Pf, B ivalent, 30 Mcg, IM, 12 yrs and above ([employer]) 09/09/2022 Hepatitis B, 20+ yrs 08/25/2017 Meningococcal [...] Given: No Alcohol Use Standard Drinks/Week Comments Not Currently [...] Sign Reading Time Taken Comments Blood Pressure 102/54 11/29/2024 1:29 PM EDT Pulse 82 11/29/2024 1:29 PM EDT Temperature - - Respiratory Rate - - Oxygen Saturation - - Inhaled Oxygen Concentration - - Weight 74.1 kg (163 lb 6.4 oz) 11/29/2024 1:29 P M EDT Height - - Body Mass Index 24.13 11/24/2024 10:00 AM EDT documented in this encounter Functional Status * [...] Progress Notes * [place] PA-C - 11/29/2024 1:10 PM EDT Images from the original note were not included. Date of Service: 11/29/2024 1:42 PM Tad Silvestre is a 69 year old male. Patient being seen in consultation at the request of Antonio Colon MD Chief Complaint: Post op check S/P LUE Fistulagram w/ venous angioplasty, and revision of AVF (via ligation of competing branch on11/24/[address] Cartagena due to slow to mature AVF OR Findings: Proximal takeoff of posterior branch of radial artery with stenosis of the distal trueradial artery and anastomosis. This is widely patent after 4 mm angioplasty. There is a large competing branch which is ligated. The remaining fistula is widely patent with shared drainage between cephalic and basilic systems. If fails to mature despite this angioplasty will require revision of proximal anastomosis to either posterior radial or more proximal true radial artery. S/P Left RC AVF for HD on 06/26/[address] Cartagena. No left hand pain No issues with TDC HPI: Former smoker with DM, HFnEF, CAD/prior [place]/5 stents, HTN, HLD, PUD, HIV and ESRD on HD On kidney transplant list Has right TDC in place Receives HD [employer] in [place], T/H/Sat Patient is RIGHT handed PPM/ICD: No Raynaud's of hands/feet: No Retired, works in [employer] for [employer] [facility] [employer] [facility] Current Outpatient Medications Medication Sig Dispense [...] 1 Capsule by mouth in the morning. Pen [place] 32G X 4 MM Use as directed. [...] daily. 30 Tablet 11 FreeStyle Carlos 2 [place] Device USE DIRECTED. 1 Each 1 Metoprolol Succinate ER 25 MG Oral Tablet Extended Release 24 Hour (toPROL XL) TAKE 1 TABLET BY MOUTH EVERY DAY IN THE MORNING 90 Tablet 3 Atorvastatin Calcium 40 MG Oral Tablet (Lipitor) TAKE 1 TABLET BY MOUTH EVERY DAY IN THE MORNING 90Tablet 0 Sevelamer Carbonate 800 MG Oral Tablet (Renvela) TAKE 1 TABLET BY MOUTH THREE TIMES A DAY WITH MEALS Prasugrel HCl 10 MG Oral Tablet (Effient) TAKE 1 TABLET BY MOUTH EVERY DAY IN THE MORNING 90 Tablet3 Juluca 50-25 MG Oral Tablet Take 1 Tablet by mouth daily. (Patient not taking: Reported on 11/29/2024) 90 Tablet 3 Current Facility-Administered Medications Medication Dose Route Frequency Provider Last Rate Last Admin Albuterol Sulfate (Proventil) (2.5 MG/3ML) 0.083% inhalation solution 2.5 mg 2.5 mg Nebulizer PRN Albuterol Sulfate (Proventil) (5 MG/ML) 0.5% *conc* inhalation solution 2.5 mg 2.5 mg Nebulizer PRN2.5 mg at 04/27/24 1108 Review of patient's allergies indicates: No Known Allergies Patient Active Problem List Diagnosis HTN, goal below 130/80 Overweight (BMI 25.0-29.9) Dyslipidemia Coronary artery disease involving [place] coronary artery of [place] heart without angina pectoris Type 2 diabetes mellitus with hemoglobin A1c goal of less than 8.0% ([facility]) Old [place] (myocardial infarction) Chronic systolic (congestive) heart failure (HCC) Left bundle branch block Recurrent major depressive disorder, in full remission ([facility]) 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 ESRD (end stage renal disease) on dialysis ([facility]) Duodenal ulcer AVF (arteriovenous fistula) ([facility]) HIV disease ([facility]) Iron deficiency anemia due to chronic blood loss Idiopathic chronic pancreatitis ([facility]) ESRD on dialysis ([facility]) Past Medical History: Diagnosis Date Chronic heart failure with preserved ejection fraction ([facility]) 11/24/2022 Coronary artery disease involving [place] coronary artery of [place] heart without angina pectoris 05/02/2022 Duodenal ulcer 02/02/2024 Dyslipidemia 05/02/2022 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 05/07/2023 History of GI bleed 02/02/2024 Duodenal ulcer HIV positive ([facility]) Hypertension Idiopathic chronic pancreatitis ([facility]) 10/16/2024 Kidney disease, chronic, stage IV (GFR 15-29 ml/min) ([facility]) 05/02/2022 Left bundle branch block 05/02/2022 Old [place] (myocardial infarction) 05/02/2022 Overweight (BMI 25.0-29.9) 05/02/2022 Recurrent major depressive disorder, in full remission ([facility]) 05/05/2022 Systolic and diastolic CHF, chronic ([facility]) 05/02/2022 Type 2 diabetes mellitus with hemoglobin A1c goal of less than 8.0% ([facility]) 05/02/2022 Past Surgical History: Procedure Laterality Date AV ACCESS, AUTOGENOUS GRAFT Left 06/26/2024 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 performed by Benjamin Cartagena MD at OR [facility] AV ACCESS, REVISE AVF W/O THRO Left 11/24/2024 REVISION ARTERIOVENOUS FISTULA WITHOUT THROMBECTOMY performed by Benjamin Cartagena MD at OR [facility] COLONOSCOPY, DIAGNOSTIC (RECTUM) N/A 02/19/2023 poor prep/nodular mucosa ascending colon/hemorrhoids/biopsies show adenomatous polyps, mild active inflammation/recall 1 year/Colonoscopy/[facility] INSER MARCUS CAT,W/O PUMP;5YR/OLD Right 07/28/2024 INSERT TUNNELED CENTRAL VENOUS CATHETER AGE 3 OR OLDER performed by Damion Barber MD at OR [facility] INTRO CATH DIALYSIS CIRCUIT W/TRANSLUM BALLOON ANGIOPLASTY Left 11/24/2024 AV FISTULOGRAM & PERIPHERAL ANGIOPLASTY performed by Benjamin Cartagena MD at OR [facility] NONE REPLACE,COMP,MARCUS CENT ACC DEV Right 08/22/2024 REPLACEMENT COMPLETE TUNNELED CENTRAL CATHETER NO PORT performed by Damion Barber MD at OR [facility] Family History Problem Relation Name Age of [...] on file Food Insecurity: No Food Insecurity (09/01/2024) Food Insecurity Worried About Running Out of Food in the Last Year: Never true Ran Out of Food in the Last Year: Never true Do you need food for this week? (Adult - for ages 18 years and over): No Transportation Needs: No Transportation Needs (09/01/2024) Transportation Needs Do you have trouble getting a ride to medical visits or work? (Adult - for ages 18 years and over):Never True Does your family have a hard time getting a ride to doctors’ visits? (Household - for ages 0-17 years): [...] Not on file Social Connections: Socially Integrated (09/01/2024) Social Connections How often do you feel lonely or isolated from those around you? (Adult - for ages 18 years and over): Never Housing Stability: Low Risk (09/01/2024) Housing Stability Do you currently live in a group home or have no steady place to sleep [...] pain, shortness of breath, palpitations, angina or PA Neurological: Negative for stroke, TIA, amaurosis fugax All other systems negative except for those noted above and in the history of present illness (HPI). GENERAL MULTI-SYSTEM PHYSICAL EXAM: VITAL SIGNS: BP 102/54 (BP Site: Right Arm, BP Position: Sitting, BP Cuff Size: Regular) | Pulse 82 | Wt 74.1 kg(163 lb 6.4 oz) | BMI 24.13 kg/m² | BSA 1.9 m² GENERAL MULTI-SYSTEM PHYSICAL EXAM:GENERAL: Normal grooming habits, [...] LEFT ARM/HAND: Warm hand. AVF incision healed. +bruit/thrill, both mild. No finger skin breakdown PULSE SCALE: Carotid Right:----Bruit: No Left:----Bruit: No [...] Radial Art 0.32 cm 01/28/21 Carotid Duplex ([facility], report only): <50% B/L ICA stenosis 09/17/19 CT Abd/Pelvis ([facility], report only): No mention of AAA LABS: Lab Results Component Value Date/Time CREATININE - [facility] 3.7 (H) 08/26/2024 06:01 AM CREATININE - [facility] 3.2 (H) 08/25/2024 06:45 AM CREATININE - [facility] 3.9 (H) 08/24/2024 06:26 AM CREATININE - [facility] 3.37 (H) 10/02/2020 [...] Component Value Date/Time HEMOGLOBIN A1C - [facility] 11.5 (H) 08/22/2024 03:34 PM The above clinical labs were reviewed by me on 11/29/24 IMPRESSIONS: S/P LUE Fistulagram w/ venous angioplasty, and revision of AVF (via ligation of competing branch on11/24/[address] Cartagena due to slow to mature AVF S/P Left RC AVF for HD on 06/26/[address] Cartagena ESRD, on HD via TDC Former smoker DM HFnEF CAD/prior [place]/RCA stenting HTN HLD PUD HIV PLAN: Patient was counseled on concept of AVF, maturation times of AVF, failure rates of AVF to fully mature, assisted failure rates of AVF, physiologic reality of arterial steal due to AVF, and both concept & need of fistulograms. OK to start using AVF, 1 small needle via AVF, 2nd needle via TDC. Advance to 2 needle HD via AVF, per protocol. If AVF proves unable to support 2 needle HD, Dr. Cartagena has revision options to offer pt. The patient was seen and examined with Benjamin Cartagena MD. [facility] Section of Vascular and [place] [address] [phone] I have reviewed the advanced practitioner's documentation on the date of service referenced in note, and I agree with, and take responsibility for the plan of care. 69 year old male on dialysis via TDC, now s/p L RCAVF creation; fistulagram with angioplasty and branch ligation Fistula feels better peripherally but still small centrally OK to start access attempts If failing dialysis through fistula would next revise his RCAVF for better inflow from main radial artery above where posterior branch comes off Follow up PRN Benjamin Cartagena MD Section of Vascular and [place] [address] [phone] documented in this encounter Nursing Notes * Any Allen CMA - 11/29/2024 1:30 PM EDT Reviewed the option of transferring scripts to [facility] pharmacy with patient and / or family. Patient stated no change in medications. Any Allen CMA documented in this encounter Plan of Treatment Upcoming Encounters Date Type Department Care Team (Late st Contact Info) Description 01/01/2025 10:30 AM EDT Office Visit Orthopaedics [facility] [address] [place] [phone] Delgado Dunn MD [address] [place] [phone] Scheduled Procedures Name Priority Associated Diagnoses Date/Ti [...] as of this encounter Visit Diagnoses Diagnosis AVF (arteriovenous fistula) (HCC)- Primary Arteriovenous fistula, acquired ESRD on dialysis (HCC) End stage renal [...] Agents on File Name Relationship Healthcare Agent Relationsca p Communication Lorin Silvestre [facility] Care Repr esentative (appointed verbally by patient or by statute hierarchy) Care Teams Fruit Sprayer Relationship Specialty Start Date End Date Antonio Colon MD [address] [place] [id number] PCP - General Family Medicine 02/12/22 documented as of this encounter"
--- OUTSIDE RECORDS SUMMARY | 2024-12-23 05:48 | External Medical Summary | Summary of Care ---
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 Name Role Phone Antonio Colon MD Primary Care Provider [phone] Reason for Visit * Auth/Cert Specialty Diagnoses / Procedures Referred By Marques t Referred To Contact Diagnoses AVF (arteriovenous fistula) (HCC) ESRD on dialysis (HCC) AVF (arteriovenous fistula) (HCC) [I77.0] ESRD on dialysis (HCC) [N18.6, Z99.2] Procedures AV ACCESS, DIRECT ANASTOMOSIS INTRO CATH DIALYSIS CIRCUIT W/TRANSLUM BALLOON ANGIOPLASTY ARTERIOVENOUS ANASTOMOSIS OPEN DIRECT ANY SITE AV FISTULOGRAM & PERIPHERAL ANGIOPLASTY Benjamin Cartagena MD [address] [place] [address] Phone: tel: fax: OR C, OPERATING ROOM [facility], [facility] [address] [place] [address] Phone: tel: Referral ID Status Reason Start Date Expiration Date Visits Re quested Visits Authorized [id number] Encounter Details Date Type Department Care Team (Latest Contact Info) Description 11/24/2024 9:48 AM EDT - 11/24/2024 4:38 PM EDT Hospital Encounter OR C, OPERATING ROOM C, [facility] [address] [place] [address] Benjamin Cartagena MD [address] [place] [address] Discharge Disposition: Home - Self Care Allergies No known active allergiesdocumented as of this encounter (statuses as of 11/25/2024) Medications Co Q 10 10 MG Oral [...] Active Additional Information Patient not taking.Reported on 10/25/2024 [place] 32G X 4 MM Use as directed. [...] 4 08/17/20 25 Active FreeStyle Carlos 2 [place] DeviceIndication s:Type 2 diabetes mellitus with hemoglobin A1c goal of less than 8.0% ([facility]) USE DIRECTED. 1 Each 1 4 Active Metoprolol Succinate ER 25 MG Oral Tablet Extended Release 24 Hour (toPROL XL)Indications:C oronary artery disease involving eyak coronary artery of eyak heart without angina pectoris TAKE 1 TABLET [...] Oral Tablet (Effient)Indicat ions:Coronary artery disease involving eyak coronary artery of eyak heart without angina pectoris TAKE 1 TABLET BY MOUTH EVERY DAY IN THE MORNING 90 Tablet 3 5 Active documented as of this encounter (statuses as of 11/25/2024) Active Problems Problem Noted Date Diagnosed Date [...] Dyslipidemia 05/02/2022 Coronary artery disease invo lving eyak coronary artery of eyak heart without angina pectoris 05/02/2022 Type 2 diabetes mellitus wit h hemoglobin A1c goal of less than 8.0% 05/02/2022 Old [place] (myocardial infarction) 05/02/2022 Chronic systolic (congestive) heart failure 04/14 Left bundle branch block 05/02/2022 HTN, goal below 130/80 documented as of this encounter (statuses as of 11/25/2024) Resolved Problems Problem Noted Date Diagnosed Date [...] as of this encounter (statuses as of 11/25/2024) Immunizations Name Administration Dates Next Due COVID-19 [...] Sign Reading Time Taken Comments Blood Pressure 130/69 11/24/2024 4:00 PM EDT Pulse 63 11/24/2024 4:00 PM EDT Temperature 36 °C (96.8 °F) 11/24/2024 3:00 PM EDT Respiratory Rate 18 11/24/2024 4:00 PM EDT Oxygen Saturation 99% 11/24/2024 4:00 PM EDT Inhaled Oxygen Concentration - - Weight 73 kg (161 lb) 11/24/2024 10:00 AM EDT Height 175.3 cm (5' 9") 11/24/2024 10:00 AM EDT Body Mass Index 23.78 11/24/2024 10:00 AM EDT documented in this [...] Dobbs RN documented in this encounter Discharge Summaries * David Mcghee MD - 11/24/2024 2:40 PM EDT [facility] [address] [facility] [address] OUTPATIENT SURGERY DISCHARGE SUMMARY NOTE Name: Tad Silvestre Location: [facility] Date: 11/24/2024 Time: 2:40 PM Date and Time of Procedure: 11/24/2024 at 2:40 PM Surgery Date: 11/24/2024 Procedure(s): REVISION ARTERIOVENOUS FISTULA WITHOUT THROMBECTOMY (Left) AV FISTULOGRAM & PERIPHERAL ANGIOPLASTY (Left) Surgeon: Benjamin Cartagena MD Discharge Diagnosis: ESRD on dialysis (HCC) After examination of this patient, I have determined he is ready for discharge to home when the patient meets criteria. Discharge instructions were given to the patient. David Mcghee MD Vascular Surgery Fellow 11/24/2024 2:40 PM Cosigned by Benjamin Cartagena MD at 11/24/2024 5:36 PM EDT documented in this encounter Discharge Instructions * Discharge Instr - AVS* David Mcghee MD - 11/24/2024 2:40 PM EDT Discharge Date: 11/24/2024 You may call Benjamin Cartagena MD of the department of Vascular Surgery at the [facility] office in [place] [phone] option 2. After business hours, you may call with emergency questions to [phone] and ask that the on-call Vascular Surgery [...] Brief summary of your inpatient care: AV fistulagram, ligation of competing branches Your primary diagnosis at discharge was malfunctioning AV fistula. Your doctors during this hospitalization included: Benjamin Cartagena MD Inpatient test results pending: None Complications: none applicable Advance Directive Documented: Advance Directive Does the Patient have an Advance Directive? Yes SUPPLEMENTAL INSTRUCTIONS: Patient instructions: If you go home with bandages on your incision, please remove bandages at next dialysis session You may shower, wash and dry the [...] pain. If you develop a fever, contact [phone] to schedule an evaluation. Follow-up in Vascular Surgery Clinic as scheduled. See your primary care physician (Antonio Colon MD) as scheduled. For routine questions, your [facility] Vascular Surgery Team prefers the use of [employer]. [employer] is an online internet tool to help you meet your health care needs quickly by providing a secure, confidential way to view your health records and communicate with your [facility] Vascular SurgeryTeam. To sign up for [employer] go to [email or web address], "Click" [place] Now on the right side of the [...] the free national Quitline for more information. 300-CETD-OVF (018-588-7185). Low-cost or free programs are offered by many hospitals, local chapters of the [place] [employer] (232-103-9715) and the [place] [employer] (839-728-3671). Support at home is important too. Non-smokers can help by offering praise and encouragement. If the smoker fails to quit, encourage them to try again! UAGJ-ZYP-MIRJEMK MEDICINES: For those who can't quit on [...] documented in this encounter H&P Notes * Dani Mario MD - 11/24/2024 11:45 AM EDT HISTORY & PHYSICAL INTERVAL NOTE - Vascular Surgery [facility]-[address] [address] History and Physical Update: Name: Tad Silvestre Location: OR [facility]/OR Date: 11/24/2024 Time: 11:36 AM DATE OF HISTORY AND PHYSICAL: 11/24/2024 Patient Vitals for the past 24 hrs: BP Temp Temp src Pulse Resp SpO2 Height Weight 11/24/24 1115 111/67 36.4 °C (97.5 °F) Tympanic 64 19 99 % -- -- 11/24/24 1000 -- -- -- -- -- -- 1.753 m (5' 9") 73 kg (161 lb) Heart Exam: regular rate and rhythm Lung Exam: clear to auscultation bilaterally Other Pertinent Physical Exam: L AVF with palpable thrill I have reviewed the H&P previously performed and examined the patient today. There are no new findings noted. ANTICOAGULANTS: Does the patient take Coumadin (warfarin)? no Does the patient take any other anticoagulants? no Cosigned by Benjamin Cartagena MD at 11/24/2024 12:10 PM EDT * Dani Mario MD - 11/24/2024 11:40 AM EDT Images from the original note were not included. Date of Service: 11/23/2024 Tad Silvestre is a 69 year old male. HPI 11/23/2024: Presents for L arm fistulagram, possible creation of left arm arteriovenous fistula.No changes in health since last clinic visit. Not on anticoagulation. Patient being seen in consultation at the request of Antonio Colon MD Chief Complaint: F/U AVF check S/P Left RC AVF for HD on 06/26/[address] Cartagena. No left hand pain No issues with TDC HPI: Former smoker with DM, HFnEF, CAD/prior KS/5 stents, HTN, HLD, PUD, HIV and ESRD on HD On kidney transplant list Has right TDC in place Receives HD [facility] in [place], T/H/Sat Patient is RIGHT handed PPM/ICD: No Raynaud's of hands/feet: No Retired, works in [employer] for [employer] in PENDING [employer]ALE TO [employer] Current Outpatient Medications Medication Sig Dispense Refill [...] Capsule by mouth in the morning. [place] 32G X 4 MM Use as directed. [...] daily. 30 Tablet 11 FreeStyle Carlos 2 [place] Device USE DIRECTED. 1 Each 1 Metoprolol [...] mouth daily. 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 ESRD (end stage renal disease) on dialysis ([facility]) Duodenal ulcer AVF (arteriovenous fistula) ([facility]) HIV disease ([facility]) Iron deficiency anemia due to chronic blood loss Idiopathic chronic pancreatitis ([facility]) Past Medical History: Diagnosis Date Chronic heart failure with preserved ejection fraction ([facility]) 11/24/2022 Coronary artery disease involving eyak coronary artery of eyak heart without angina pectoris 05/02/2022 Duodenal ulcer 02/02/2024 Dyslipidemia 05/02/2022 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 05/07/2023 History of GI bleed 02/02/2024 Duodenal ulcer HIV positive ([facility]) Hypertension Idiopathic chronic pancreatitis ([facility]) 10/16/2024 Kidney disease, chronic, stage IV (GFR 15-29 ml/min) ([facility]) 05/02/2022 Left bundle branch block 05/02/2022 Old KS (myocardial infarction) 05/02/2022 Overweight (BMI 25.0-29.9) 05/02/2022 Recurrent major depressive disorder, in full remission ([facility]) 05/05/2022 Systolic and diastolic CHF, chronic ([facility]) 05/02/2022 Type 2 diabetes mellitus with hemoglobin A1c goal of less than 8.0% ([facility]) 05/02/2022 Past Surgical History: Procedure Laterality Date AV ACCESS, AUTOGENOUS GRAFT Left 06/26/2024 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 performed by Benjamin Cartagena MD at OR [facility] COLONOSCOPY, DIAGNOSTIC (RECTUM) N/A 02/19/2023 poor prep/nodular mucosa ascending colon/hemorrhoids/biopsies show adenomatous polyps, mild active inflammation/recall 1 year/Colonoscopy/[place] INSER MARCUS CAT,W/O PUMP;5YR/OLD Right 07/28/2024 INSERT TUNNELED CENTRAL VENOUS CATHETER AGE 3 OR OLDER performed by Damion Barber MD at OR [facility] NONE REPLACE,COMP,MARCUS CENT ACC DEV Right 08/22/2024 REPLACEMENT COMPLETE TUNNELED CENTRAL CATHETER NO PORT performed by Damion Barber MD at OR [facility] Family History Problem Relation Name Age of [...] Stability Do you currently live in a snf or have no steady place to sleep [...] pain, shortness of breath, palpitations, angina or KS Neurological: Negative for stroke, TIA, amaurosis fugax All other systems negative except for those noted above and in the history of present illness (HPI). GENERAL MULTI-SYSTEM PHYSICAL EXAM: VITAL SIGNS: BP 111/67 | Pulse 64 | Temp 36.4 °C (97.5 °F) (Tympanic) | Resp 19 | Ht 1.753 m (5' 9") | Wt 73 kg (161 lb) | SpO2 99% | BMI 23.78 kg/m² | BSA 1.89 m² GENERAL MULTI-SYSTEM PHYSICAL EXAM:GENERAL: Normal grooming habits, no acute distress, and appears stated age. RESPIRATORY: respiratory effort normal and breath sounds normal. CARDIOVASCULAR: no heart murmurs, no edema, and no varicosities. SKIN: no ulcers, no rash, no induration, capillary refill normal, and no dependent rubor. NEUROLOGIC: Cranial nerves intact, Motor function intact, and Sensory exam intact LEFT ARM/HAND: Warm hand. Left AVF fistula with palpable thrill PULSE SCALE: Carotid Right:----Bruit: No Left:----Bruit: No [...] Radial Art 0.32 cm 01/28/21 Carotid Duplex ([facility], report only): <50% B/L ICA stenosis 09/17/19 CT Abd/Pelvis ([facility], report only): No mention of AAA LABS: Lab Results Component Value Date/Time CREATININE - [facility] 3.7 (H) 08/26/2024 06:01 AM CREATININE - [...] for HD on 06/26/[address] Cartagena. Delayed maturation of AVF ESRD, on HD via TDC Former smoker DM HFnEF CAD/prior [place]/RCA stenting HTN HLD PUD HIV PLAN: Patient was counseled on concept of AVF, maturation times of AVF, failure rates of AVF to fully mature, longitudinal float operator failure rates of AVF, physiologic reality of arterial steal due to AVF, and both concept & need of fistulograms. The patient was seen and examined with Benjmain Cartagena MD. While AVF has bruit and thrill, both are not overly impressive. 11/24/24 L arm fistulagram, possible creation of left arm arteriovenous fistula RTC the following week, 11/29 Librado Lake PA-C Section of Vascular [place] [address] [phone] I have reviewed the advanced practitioner's documentation on the date of service referenced in note, and I agree with, and take responsibility for the plan of care. 69 year old male on dialysis via TDC, now s/p L RCAVF creation Unfortunately has had some delay in follow up due to admissions (broken shoulder, pancreatitis, multiple TDC issues) Fistula still small for dialysis access Will plan for fistulagram/BAM, if fistula does not appear salvageable patient preference is to proceed immediately with ligation and creation of BCAVF, which is reasonable in order to transition him from TDC to fistula use JUDIT. The patient was counseled at length regarding [...] access surgery to ensure continued functionality. The [facility] Hemodialysis Access Booklet was given to the patient. Benjamin Cartagena MD Section of Vascular [place] [address] [phone] Dain Mario MD General Surgery PGY-1 [facility] Cosigned by Benjamin Cartagena MD at 11/24/2024 12:10 PM EDT documented in this encounter Nursing Notes * Jessica Wright RN - 11/24/2024 4:04 PM EDT Dual Licensed Skin Assessment completed by Dottie Wright RN and Missael eVlasquez RN. The patient is/has a N/A Skin Breakdown (includes non blanchable erythema): Yes - Surgical/Procedural changes only. * Keira Hassan RN - 11/24/2024 11:53 AM EDT Dual Licensed Skin Assessment completed by shanice Hassan RN and karlee Lange RN. The patient is/has a N/A Skin Breakdown (includes non blanchable erythema): No * Izabella Cole RN - 11/22/2024 7:42 AM EDT Pre-operative chart review completed. Did not call. No My chart. NO ANESTHESIA EVAL REQUESTED PER CASE DOCUMENTATION. PREOP PATIENT INFORMATION AND EDUCATION: MEDICATION INSTRUCTIONS: The day of surgery/procedure, you may TAKE the following medications with a sip of water up to 2 hours prior to your arrival time: Please follow the pre-operative instructions provided by your vascular surgeon. If you have any questions regarding these instructions please contact your surgeon's office at [phone]. Nothing to eat or drink by mouth after midnight the night before surgery including no food, no gum/hard candy, coffee, tea, other drink, or tobacco product. Continue all of your normal morning medications with a few sips of water on day of surgery unless otherwise instructed. On the morning of surgery, take 1/2 of your typical morning dose of long acting insulin, Glargine CONTINUE your ASPIRIN, including morning of surgery. [...] deodorants after bathing. No hairspray, or nail liberian on fingers or toes. Day of surgery/procedure [...] name and bring to hospital. -An escort bulk driver is required if you are being discharged [...] taxi home, you must have your responsible republican accompany you in the taxi ride home [...] is important to make arrangements for a bulk driver to take you home. Please be aware our visitation policies are subject to change Professionals, attendants, caregivers or family members are allowable visitors for patients with intellectual, developmental or cognitive disabilities, communication barriers or behavioral concerns. Because patients' and families' needs vary, they will be taken into account when applying visitation restrictions. [facility]: Contact # [phone] Directions to Surgical Suite in from the [facility] Entrance The Surgical Waiting Room can be found in the [facility]. Enter through Main [facility] Entrance and the Waiting Room is directly in front of you. Proceed to check in and give them your name. Directions to Surgical Suite from the East Entrance Enter the East entrance and follow the hallway to the J elevator. Take the J elevator up to Level 1. [facility] The [facility] Waiting Room will be on your Right. Proceed to check in and give them your Name. Directions to Surgical Suite from the Parking Garage Enter the [facility] lobby and proceed down the lowe to the left. At the end of the lowe, turn right. Continue down the long hallway to the main [facility] Lobby. The Surgical Waiting Room will be on your Right. Proceed to check in and give them your Name. Izabella Cole MSN, RN [facility] 11/22/2024 documented in this encounter OR Notes * OR Surgeon - Benjamin Cartagena MD - 11/24/2024 2:10 PM EDT [address] [address] OPERATIVE REPORT Name: Tad Silvestre Date: 11/24/2024 Time: 2:10 PM Location: OR [facility] Service: Vascular Surgery Date of Operation: 11/24/2024 Pre-op Diagnosis: Malfunctioning left radial artery to cephalic vein arteriovenous fistula Post-op Diagnosis: Same Surgeon: Benjamin Cartagena MD Assistants: David Mcghee MD Anesthesia: Monitored local anesthesia with sedation, nerve block Operation: Diagnostic fistulagram with peripheral venous angioplasty 2. Revision of fistula with ligation of competing branch Findings: Proximal takeoff of posterior branch of radial artery with stenosis of the distal true radial artery and anastomosis. This is widely patent after 4 mm angioplasty. There is a large competing branch which is ligated. The remaining fistula is widely patent with shared drainage between cephalic and basilic systems. If fails to mature despite this angioplasty will require revision of proximal anastomosis to either posterior radial or more proximal true radial artery. Specimen and Disposition: None Estimated Blood Loss: 10 ml Fluids: 300 mL crystalloid Urine Output: None Drains/Implants: * No implants in log * Complications: None Postoperative Condition: Stable Indications and History: Tad Silvestre presents with a malfunctioning left radial artery to cephalic vein arteriovenous fistula. We plan to proceed with fistulagram and intervention to improve access function. Description of Operation: The patient was seen in the Holding Room and the site of surgery properly noted and marked. The patient was identified by name (Tad Silvestre), and the procedure verified. In the operating room, a Time Out was held and the above information confirmed. After satisfactory anesthesia, the left upper extremity was prepped and draped in the usual sterile fashion. The arteriovenous fistula was punctured centrally. After a series of standard maneuvers, a 4 Frenchmicrosheath was left within the AV fistula at the puncture site. A complete fistulagram was performed. Findings are as noted above. Next, a guidewire was threaded through the micro-sheath and this was up sized to a 5 [place] sheath. The patient was systemically heparinized. The stenotic portion of the cephalic vein and inflow radial artery was crossed with a guidewire using a RIM catheter and underwent angioplasty using a 4 mm standard angioplasty balloon. Follow-up imaging revealed a satisfactory result. There was a large competing vein branch which was identified. This was ligated. A small incision was made over the branch and it was circumferentially dissected. It was then ligated and divided between silk sutures. The incision was closed with a 3-0 vicryl and monocryl sutures. The indwelling sheath(s) were removed and the puncture site(s) were closed with a 4-0 Monocryl suture. All guidewires and catheters were removed. Hemostasis was good. Sponge count and needle counts were correct. Attestation: I was present for the entire procedure documented in this encounter Plan of Treatment Upcoming Encounters Date Type Department Care Team (Late st Contact Info) Description 11/29/2024 1:10 PM EDT Office Visit Vascular Surgery, [address] [place] [address] Benjamin Cartagena MD [address] [place] [address] 01/01/2025 10:30 AM EDT Office Visit Orthopaedics [address] [place] [phone] Delgado Dunn MD [address] [place] [phone] Scheduled Procedures Name Priority Associated Diagnoses Date/Ti [...] Exam 01/17/2025 01/18/2024, 11/24/2022 HbA1c 02/20/2025 08/22/2024, 07, 02/02/2024, Additional history exists TSH 08/22/2025 08/22/2024, [...] Name Priority Date/Time Associated Diagnosis Comments VASC PROCEDURE IN VASCULAR ANGIO SUITE Routine 11/24/2024 2:55 PM EDT GLUCOSE METER, POINT OF CARE JUDIT 11/24/2024 11:58 AM EDT POTASSIUM, WHOLE BLOOD STAT 11/24/2024 11:55 AM EDT documented in this encounter Results * VASC PROCEDURE IN VASCULAR ANGIO SUITE (11/24/2024 2:55 PM EDT) Narrative Scheduling, Silent - 11/24/2024 2:56 PM EDT This procedure will not be read by a Radiologist. Please see operative note. us Benjamin Cartagena MD RAD SPECIAL PROCEDURES Fin al Result * (ABNORMAL) GLUCOSE METER, POINT OF CARE (11/24/2024 11:58 AM EDT) Glucose - POCT 190(H) 70 - 120 mg/dL 11/24/2024 12:07 PM EDT [facility] [employer] Blood Whole blood specimen / Unknown 11/24/2024 11:58 AM EDT 11/24/2024 12:07 PM EDT us Benjamin Cartagena MD LAB POINT OF CARE TEST DOCKED DEVICE UNSOLICITED RESULTS Final Result [facility] [address] [place] [address] * POTASSIUM, WHOLE BLOOD (11/24/2024 11:55 AM EDT) Potassium 3.8 3.5 - 5.1 mmol/L 11/24/2024 12:08 PM EDT LABORATORY [facility] Blood Venous blood specimen / Unknown Venipuncture / Unknown 11/24/2024 11:55 AM EDT 11/24/2024 12:04 PM EDT us Librado Lake PA-C LAB BLOOD ORDERABLES Fin al Result LABORATORY [facility] [address] [place] [address] documented in this encounter Visit Diagnoses Diagnosis ESRD on dialysis (HCC)- Primary End stage renal disease ESRD on dialysis (HCC) End stage renal disease AVF (arteriovenous fistula) (HCC) Arteriovenous fistula, acquired AVF (arteriovenous fistula) (HCC) Arteriovenous fistula, acquired documented in this encounter Administered Medications Inactive Administered Medications - up to 3 most recent administrations Medication Order MAR Action Action Date Dose Rate Site 1/2 NSS infusion Intravenous, at 10 mL/hr, CONTINUOUS, Starting on Wed11/24/24 at 1200, Until Wed11/24/24 at 2038, Pre-OpIndications:ESRD on dialysis (HCC),AVF (arteriovenous fistula) ([facility]) Restarted 11/24/2024 2:37 PM EDT Continue from Pre-Op 11/24/2024 1:10 PM EDT 10 mL/hr New Bag 11/24/2024 12:01 PM EDT 10 mL/hr fentaNYL (PF) inj 50 mcg 50 mcg, IV Push, Q5 MIN PRN Other, sedation for block placement, Starting on Wed11/24/24 at 1128, Until Wed11/24/24 at 2038, For 2 doses, Maximum 100 mcg. Preop Anesthesia Block When given IV Push its recommended that the dose be given over 3 to 5 minutes., Pre-Op Given 11/24/2024 12:15 PM EDT 50 mcg midazolam (Versed) 2 MG/2ML inj 1 mg 1 mg, IV Push, Q2 MIN PRN sedation for block placement , Starting on Wed11/24/24 at 1128, Until Wed11/24/24 at 2038, For 2 doses, Preop Anesthesia Block, Pre-Op Given 11/24/2024 12:15 PM EDT 2 mg oxygen GAS Inhalation, OXYGEN, First dose on Wed11/24/24 at 1600, Until Discontinued, Device/Managed by: Low Flow Device, [...] than or equal to 93% Oxygen On 11/24/2024 12:10 PM EDT 3 L/min(Oxygen) sodium chloride 0.9 % flush peripheral fran 3 mL 3 mL, IV Push, Q8H, First dose on Wed11/24/24 at 1400, Until Discontinued, Do not flush if lock, PICC, or central line not in place; IV infusing or unable to flush., Pre-OpIndications:ESRD on dialysis ([facility]),AVF (arteriovenous fistula) ([facility]) sodium citrate 4% (Anticoagulant Sodium Citrate) inj 3 mL 3 mL, Dialysis catheter, ON DIALYSIS, Starting on Wed11/24/24 at 1543, Until Wed11/24/24 at 2038, For 1 dose, Use only by dialysis nurse- For use only to lock dialysis catheter after dialysis documented in this encounter Active and Recently Administered Medications Times are shown in EDT. Scheduled Medication Order 11/22/2024 11/23/2024 11/24/2024 ceFAZolin in dextrose (Ancef) ivpb 2 g (COMPLETED) 2 g, IV Piggyback, PREOP, 1 dose, First dose on Wed11/24/24 at 1200, Administer 60 minutes prior to skin incision, Pre-Op 1319 (Given - Provid er: Merrick Velasquez CRNA) oxygen GAS Inhalation, OXYGEN, First dose on Wed11/24/24 at 1600, Until Discontinued, Device/Managed by: Low Flow Device, [...] is greater than or equal to 93% 1210 (Oxygen On - Pr ovider: Vernell Walker RN - Comment: on for block)1442 (Oxygen Off - Provider: Jessica Wright RN) sodium chloride 0.9 % flush peripheral fran 3 mL 3 mL, IV Push, Q8H, First dose on Wed11/24/24 at 1400, Until Discontinued, Do not flush if lock, PICC, or central line not in place; IV infusing or unable to flush., Pre-Op 1400 (Due) sodium citrate 4% (Anticoagulant Sodium Citrate) inj 3 mL 3 mL, Dialysis catheter, ON DIALYSIS, Starting on Wed11/24/24 at 1543, Until Wed11/24/24 at 2038, For 1 dose, Use only by dialysis nurse- For use only to lock dialysis catheter after dialysis Continuous Medication Order 11/22/2024 11/23/2024 11/24/2024 1/2 NSS infusion Intravenous, at 10 mL/hr, CONTINUOUS, Starting on Wed11/24/24 at 1200, Until Wed11/24/24 at 2039, Pre-Op 1201 (New Bag - Prov ider: Keira Hassan RN)1310 (Continue from Pre-Op - Provider: Merrick Velasquez CRNA)1436 (Paused - Provider: Merrick Velasquez CRNA - Comment: Switch to gravity)1437 (Restarted - Provider: Merrick Velasquez CRNA) PRN Medication Order 11/22/2024 11/23/2024 11/24/2024 bupivacaine HCl 30 mL, lidocaine 1 % 30 mL inj (CANCELED) ONCE PRN INTRA PROCEDURE, Starting on Wed11/24/24 at 1400, Until Wed11/24/24 at 1439, Intra-Op 1400 (Given - Provid er: Benjamin Cartagena MD) ceFAZolin 1,000 mg in sodium chloride IR 0.9 % 500 mL irrigation (CANCELED) ONCE PRN INTRA PROCEDURE, Starting on Wed11/24/24 at 1333, Until Wed11/24/24 at 1439, Intra-Op 1333 (Given - Provid er: Benjamin Cartagena MD - Comment: PRN intraop) fentaNYL (PF) inj 50 mcg 50 mcg, IV Push, Q5 MIN PRN Other, sedation for block placement, Starting on Wed11/24/24 at 1128, Until Wed11/24/24 at 2039, For 2 doses, Maximum 100 mcg. Preop Anesthesia Block When given IV Push its recommended that the dose be given over 3 to 5 minutes., Pre-Op 1215 (Given - Provid er: Vernell Walker RN - Comment: block sedation) hEParin 5,000 Units in NSS 500 mL infusion (CANCELED) ONCE PRN INTRA PROCEDURE, Starting on Wed11/24/24 at 1334, Until Wed11/24/24 at 1439, Intra-Op 1334 (Given - Provid er: Benjamin Cartagena MD - Comment: PRN intraop) Iopamidol (Isovue M 300) inj (CANCELED) ONCE PRN INTRA PROCEDURE, Starting on Wed11/24/24 at 1431, Until Wed11/24/24 at 1439, Intra-Op 1431 (Given - Provid er: David Mcghee MD) midazolam (Versed) 2 MG/2ML inj 1 mg 1 mg, IV Push, Q2 MIN PRN sedation for block placement , Starting on Wed11/24/24 at 1128, Until Wed11/24/24 at 2039, For 2 doses, Preop Anesthesia Block, Pre-Op 1215 (Given - Provid er: Vernell Walker RN - Comment: 2mg per [place]) documented in this encounter Advance Directives * [...] patient or by statute hierarchy) Care Teams Power Crane Operator Relationship Specialty Start Date End Date Antonio Colon MD [address] [place] [address] PCP - General Family Medicine 02/12/22 documented as of this encounter
--- OUTSIDE RECORDS SUMMARY | 2024-12-23 05:48 | External Medical Summary | Summary of Care ---
Author Name Unknown Organization [facility] Address [address] [place] [address] Phone [phone] Care Team Providers Care Outside Plant Cable Engineer Name Role Phone Antonio Colon MD Primary Care Provider [phone] Reason for Visit * Reason Onset Date Comments Health Maintenance 11/24/2024 Encounter Details Date Type Department Care Team (Late st Contact Info) Description 11/24/2024 Telephone Family Practice [facility] [address] [facility] [address] Antonio Colon MD [address] [place] [address] Health Maintenance Allergies No known active allergiesdocumented as of this encounter (statuses as of 11/24/2024) Medications Co Q 10 10 MG Oral Capsule Take by mouth 1 Caplet Dosing Unit daily . Suspended Aspirin 81 MG Oral Capsule Take by mouth 1 Caplet Dosing Unit daily . Suspended Multi-Day Oral Tablet Take by mouth 1 Tablet in the morning. Suspended Vitamin D-3 25 MCG (1000 UT) Oral Capsule Take 1 Capsule by mouth in the morning. Suspended Juluca 50-25 MG Oral Tablet Take 1 Tablet by mouth daily. 90 Tablet 3 12/01/19 24 Suspended Additional Information Patient not taking.Reported on 10/25/2024 [place] 32G X 4 MM Use as directed. Use to inject insulin 4 times daily E11.9 400 Each 3 12/02/19 24 Suspended FLUoxetine HCl 20 MG Oral Capsule (PROzac)Indicati ons:ST elevation (STEMI) myocardial infarction involving left circumflex coronary artery (HCC) TAKE 1 CAPSULE BY MOUTH EVERY DAY 90 Capsule 3 03/03/20 24 Suspended Levothyroxine Sodium 25 MCG Oral Tablet (Levoxyl) Take 1 Tablet by mouth daily first thing in the morning. 90 Tablet 3 03/24/20 24 Suspended NIFEdipine ER Osmotic Release 30 MG Oral Tablet Extended Release 24 Hour (Procardia XL) Take 1 Tablet by mouth in the morning. In the morning.. 90 Tablet 3 03/24/20 24 Suspended Pantoprazole Sodium 40 MG Oral Tablet Delayed Release (Protonix) Take 1 Tablet by mouth in the morning. 90 Tablet 3 03/24/20 24 Suspended FreeStyle Carlos 2 SensorIndication s:Type 2 diabetes mellitus with hemoglobin A1c goal of less than 8.0% (HCC) Use as directed. Use one sensor every 14 days for blood sugar E10.65 1 Each 04/11/20 24 Suspended Fiasp FlexTouch 100 UNIT/ML Subcutaneous Solution Pen-injector (Insulin Aspart (w/Niacinamide)) Indications:Type 2 diabetes mellitus with hemoglobin A1c goal of less than 8.0% (HCC) Inject 10 Units under the skin in the morning and 10 Units at noon and 10 Units before bedtime. With meals. 15 mL 3 4 10:53 AM EDT 04/26/20 24 Suspended Basaglar KwikPen 100 UNIT/ML Subcutaneous Solution Pen-injector (Insulin Glargine Solostar) INJECT UNDER THE SKIN 22 UNITS IN THE MORNING. 30 mL 1 07/28/20 24 Suspended Juluca 50-25 MG Oral Tablet (Dolutegravir-Ri lpivirine) Take 1 Tablet by mouth daily. 30 Tablet 11 08/22/20 24 025 Suspended FreeStyle Carlos 2 [place] DeviceIndication s:Type 2 diabetes mellitus with hemoglobin A1c goal of less than 8.0% (HCC) USE DIRECTED. 1 Each 1 08/29/20 24 Suspended Metoprolol Succinate ER 25 MG Oral Tablet Extended Release 24 Hour (toPROL XL)Indications:C oronary artery disease involving [place] coronary artery of [place] heart without angina pectoris TAKE 1 TABLET BY MOUTH EVERY DAY IN THE MORNING 90 Tablet 3 10/08/19 25 Suspended Atorvastatin Calcium 40 MG Oral Tablet (Lipitor)Indicat ions:Dyslipidemi a, goal LDL below 70 TAKE 1 TABLET BY MOUTH EVERY DAY IN THE MORNING 90 Tablet 10/09/19 25 Suspended Sevelamer Carbonate 800 MG Oral Tablet (Renvela) TAKE 1 TABLET BY MOUTH THREE TIMES A DAY WITH MEALS 09/29/19 25 Suspended Prasugrel HCl 10 MG Oral Tablet (Effient)Indicat ions:Coronary artery disease involving [place] coronary artery of [place] heart without angina pectoris TAKE 1 TABLET BY MOUTH EVERY DAY IN THE MORNING 90 Tablet 3 10/20/19 25 Suspended documented as of this encounter (statuses as of 11/24/2024) Active Problems Problem Noted Date Diagnosed Date [...] Dyslipidemia 05/02/2022 Coronary artery disease invo lving [place] coronary artery of [place] heart without angina pectoris 05/02/2022 Type 2 diabetes mellitus wit h hemoglobin A1c goal of less than 8.0% 05/02/2022 [place] (myocardial infarction) 05/02/2022 Chronic systolic (congestive) heart failure 04/14 Left bundle branch block 05/02/2022 HTN, goal below 130/80 documented as of this encounter (statuses as of 11/24/2024) Resolved Problems Problem Noted Date Diagnosed Date [...] as of this encounter (statuses as of 11/24/2024) Immunizations Name Administration Dates Next Due COVID-19 mRNA, LNP-s, No Pre serve, 2-Dose Series (Moderna) 11/27/2020,10/24/2020 COVID-19, MRNA-LNP, PF, 50 M CG/0.5 mL, 12 YRS AND ABOVE, IM (MODERNA-Spikevax) 08/05/2021 Covid-19, Mrna, Lnp-s, Pf, B ivalent, 30 Mcg, IM, 12 yrs and above ([employer]) 09/09/2022 Hepatitis B, 20+ yrs 08/25/2017 [...] Telephone Encounter - Haley Prieto LPN - 11/24/2024 10:40 AM EDT Care Gaps Comprehensive Care Outreach Last Office/Telemedicine Visit: 10/16/2024 (in office), Visit date not found (telemedicine) Next Office Visit: Visit date not found Hemoglobin AIC Results: Lab Results Component Value Date/Time HEMOGLOBIN A1C - [facility] 11.5 (H) 08/22/2024 03:34 PM HEMOGLOBIN A1C - [facility] 8.6 (H) 04/11/2024 10:31 AM HEMOGLOBIN A1C - [facility] 6.7 (H) 02/02/2024 11:52 AM BP Readings from Last 1 Encounters: 10/25/24 110/64 Reviewed Health Maintenance below: Health Maintenance Topic Date Due Diabetic Eye Exam Never done Zoster Vaccines (1 of 2) Never done Hepatitis B Vaccine (2 of 3 - Risk 3-dose series) 09/22/2017 Pneumococcal Vaccine: 50+ Years (3 of 3 - PPSV23, PCV20 or PCV21) 10/16/2018 Adult Wellness Visit Never done MENINGOCOCCAL (MENACTRA/MENVEO) (3 - Risk 2-dose series) 08/04/2022 COVID-19 Vaccine ( season) 2024 Colorectal Cancer Screening 01/06/2025 Diabetic Foot Exam 01/17/2025 admitted Care Gap Outreach Action Taken: Outreach not indicated documented in this encounter Plan of Treatment Upcoming Encounters Date Type Department Care Team (Late st Contact Info) Description 11/29/2024 1:10 PM EDT Office Visit Vascular Surgery, [facility] [address] [place] [address] Benjamin Cartagena MD [address] [place] [address] 01/01/2025 10:30 AM EDT Office Visit Orthopaedics [facility] [address] [place] [phone] Delgado Dunn MD [address] [facility] [place] [address] Scheduled Procedures Name Priority Associated Diagnoses Date/Ti me ARTERIOVENOUS ANASTOMOSIS OPEN DIRECT ANY SITE AVF (arteriovenous fistula) (HCC) ESRD on dialysis (HCC) 11/24/2024 12:45 PM EDT AV FISTULOGRAM & PERIPHERAL ANGIOPLASTY AVF (arteriovenous fistula) (HCC) ESRD on dialysis (HCC) 11/24/2024 12:45 PM EDT COLONOSCOPY FLEXIBLE PROXIMAL DIAGNOSTIC Recall History [...] Name Relationship Healthcare Agent Relationshi p Communication oLrin Silvestre [facility] Care Repr esentative (appointed verbally by patient or by statute hierarchy) Care Teams Outside Plant Cable Engineer Relationship Specialty Start Date End Date Antonio Colon MD [address] [place] [address] PCP - General Family Medicine 02/12/22 documented as of this encounter
--- OUTSIDE RECORDS SUMMARY | 2024-12-23 05:48 | External Medical Summary | Summary of Care ---
Author Name Unknown Organization [facility] Address [address] [place] [address] Phone [phone] Care Team Providers Care Piping Blocker Name Role Phone Antonio Colon MD Primary Care Provider [phone] Reason for Visit * Reason Onset Date Comments Pre-Transplant Evaluation 12/15/2024 Encounter Details Date Type Department Care Team (Late st Contact Info) Description 12/15/2024 Telephone Transplant Clinic, [facility] [address] [id number] Agnieszka [place]ellan, [place] [address] Pre-Transplant Evaluation Allergies No known active allergiesdocumented as of this encounter (statuses as of 12/15/2024) Medications Co Q 10 10 MG Oral [...] Information Patient not taking.Reported on 11/29/2024 Pen [place] 32G X 4 MM Use as [...] 4 08/17/20 25 Active FreeStyle Carlos 2 [place] DeviceIndication s:Type 2 diabetes mellitus with hemoglobin A1c goal of less than 8.0% (HCC) USE DIRECTED. 1 Each 1 4 Active Metoprolol Succinate ER 25 MG Oral Tablet Extended Release 24 Hour (toPROL XL)Indications:C oronary artery disease involving [place] coronary artery of [place] heart without angina pectoris TAKE 1 TABLET [...] Oral Tablet (Effient)Indicat ions:Coronary artery disease involving [place] coronary artery of [place] heart without angina pectoris TAKE 1 TABLET [...] as of this encounter (statuses as of 12/15/2024) Active Problems Problem Noted Date Diagnosed Date [...] Dyslipidemia 05/02/2022 Coronary artery disease invo lving [place] coronary artery of [place] heart without angina pectoris 05/02/2022 Type 2 diabetes mellitus wit h hemoglobin A1c goal of less than 8.0% 05/02/2022 [place] (myocardial infarction) 05/02/2022 Chronic systolic (congestive) heart failure 04/14 Left bundle branch block 05/02/2022 HTN, goal below 130/80 documented as of this encounter (statuses as of 12/15/2024) Resolved Problems Problem Noted Date Diagnosed Date [...] as of this encounter (statuses as of 12/15/2024) Immunizations Name Administration Dates Next Due COVID-19 mRNA, LNP-s, No Pre serve, 2-Dose Series (Moderna) 11/27/2020,10/24/2020 COVID-19, MRNA-LNP, PF, 50 M CG/0.5 mL, 12 YRS AND ABOVE, IM (MODERNA-Spikevax) 08/05/2021 Covid-19, Mrna, Lnp-s, Pf, B ivalent, 30 Mcg, IM, 12 yrs and above ([employer]) 09/09/2022 Hepatitis B, 20+ yrs 08/25/2017 Meningococcal [...] Telephone Encounter - Agnieszka Capellan RN - 12/15/2024 10:24 AM EDT Call placed to patient, voice mail left requesting return call. Checking on status of updated colonoscopy and also when he will have follow-up with Dr. Asencio related to his VRL lab check prior to listing consideration. Unfortunately, patient had a recent arm fracture. Agnieszka Capellan, RN 10:25 AM documented in this encounter Plan of Treatment Upcoming Encounters Date Type Department Care Team (Late st Contact Info) Description 01/01/2025 10:30 AM EDT Office Visit Orthopaedics [facility] [address] [place] [address] Delgado Dunn MD [address] [place] [address] Scheduled Procedures Name Priority Associated Diagnoses [...] patient or by statute hierarchy) Care Teams Piping Blocker Relationship Specialty Start Date End Date Antonio Colon MD [address] [place] [address] PCP - General Family Medicine 02/12/22 documented as of this encounter
--- OUTSIDE RECORDS SUMMARY | 2024-12-23 05:48 | External Medical Summary ---
Author Name Unknown Address Unknown Organization : Laboratory Report Ordering Provider Test Date Status JAYLEEN ALAN 11/24/2024 11:58:38 Final Observation Date Value Abnormality Reference (Units ) Status Glucose Point of Care 11/24/2024 11:58:38 190 Above high normal 70-120 (mg/dL) Final Performing Location
--- OUTSIDE RECORDS SUMMARY | 2024-12-23 05:48 | External Medical Summary | Summary of Care ---
Author Name Unknown Organization [facility] Address [address] [place] [address] Phone [phone] Care Team Providers Care Stock Handler Name Role Phone Antonio Colon MD Primary Care Provider [phone] Reason for Visit * Reason Onset Date Comments Med Request 09/14/2024 Patient has call ed in and is asking for a stronger pain mediation to be given? Please advice on this matter and return the his call back to this listed mobile # [phone] to advice. He states that the sling and frozen pea's are just not cutting it for his pain? Encounter Details Date Type Department Care Team (Late st Contact Info) Description 09/14/2024 Telephone Orthopaedics [facility] [address] [place] [address] Delgado Dunn MD [address] [facility] [place] [address] Med Request (Patient has called in and is ... Allergies No known active allergiesdocumented as [...] Information Patient not taking.Reported on 11/29/2024 Pen [place] 32G X 4 MM Use as directed. [...] 4 08/17/20 25 Active FreeStyle Carlos 2 [place] DeviceIndication s:Type 2 diabetes mellitus with hemoglobin A1c goal of less than 8.0% ([facility]) USE DIRECTED. 1 Each 1 Active Hospital, Clinic, or Other Facility Administered [...] 30 Mcg, IM, 12 yrs and above ([employer]) 09/09/2022 Hepatitis B, 20+ yrs 08/25/2017 [...] Miscellaneous Notes * Telephone Encounter - Kalpana Freeman OSA - 09/14/2024 3:42 PM EST Patient has called in and is asking for a stronger pain mediation to be given? Please advice on this matter and return the his call back to this listed mobile # [phone] to advice. He states that the sling and frozen pea's are just not cutting it for his pain? documented in this encounter Plan of Treatment Upcoming Encounters Date Type Department Care Team (Late st Contact Info) Description 01/01/2025 10:30 AM EDT Office Visit Orthopaedics [facility] [address] [place] [address] Delgado [...] Healthcare Agent Relationshi p Communication Lorin Silvestre [facility] Health Care Repr esentative (appointed verbally by patient or by statute hierarchy) Care Teams Stock Handler Relationship Specialty Start Date End Date Antonio Colon MD [address] [place] [address] PCP - General Family Medicine 02/12/22 documented as of this encounter
--- OUTSIDE RECORDS SUMMARY | 2024-12-23 05:49 | External Medical Summary | Summary of Care ---
Author Name Unknown Organization [facility] Address [address] [place] [address] Phone [phone] Care Team Providers Care Facility Sales And Admin Name Role Phone Antonio Colon MD Primary Care Provider [phone] Reason for Visit * Reason Onset Date Comments Advice 11/15/2024 Day of surgery Encounter Details Date Type Department Care Team (Late st Contact Info) Description 11/15/2024 Telephone Vascular Surg [facility] [address] [place] [address] Benjamin Cartagena MD [address] [place] [address] Advice (Day of surgery ) Allergies No known active allergiesdocumented as of this encounter (statuses as of 11/15/2024) Medications Co Q 10 10 MG Oral [...] Information Patient not taking.Reported on 10/25/2024 [place] 32G X 4 MM Use as [...] 4 08/17/20 25 Active FreeStyle Carlos 2 [place] DeviceIndication s:Type 2 diabetes mellitus with hemoglobin A1c goal of less than 8.0% (HCC) USE DIRECTED. 1 Each 1 4 Active Metoprolol Succinate ER 25 MG Oral Tablet Extended Release 24 Hour (toPROL XL)Indications:C oronary artery disease involving [place] coronary artery of [place] heart without angina pectoris TAKE 1 TABLET [...] Oral Tablet (Effient)Indicat ions:Coronary artery disease involving [place] coronary artery of [place] heart without angina pectoris TAKE 1 TABLET BY MOUTH EVERY DAY IN THE MORNING 90 Tablet 3 5 Active Hospital, Clinic, or Other Facility Administered Medication Ordered Dose Route Frequency Start Date End Date Status Albuterol Sulfate (Proventil) (2.5 MG/3ML) 0.083% inhalation solution 2.5 mgIndications:ESRD on dialysis ([facility]),Pre-transplant evaluation for ESRD (end stage renal disease) 2.5 mg NEBULIZER PRN 03/24/2024 Acti ve Albuterol Sulfate (Proventil) (5 MG/ML) 0.5% *conc* inhalation solution 2.5 mgIndications:ESRD on dialysis ([facility]),Pre-transplant evaluation for ESRD (end stage renal disease) 2.5 mg NEBULIZER PRN 03/24/2024 Acti ve documented as of this encounter (statuses as of 11/15/2024) Active Problems Problem Noted Date Diagnosed Date [...] Dyslipidemia 05/02/2022 Coronary artery disease invo lving [place] coronary artery of [place] heart without angina pectoris 05/02/2022 Type 2 diabetes mellitus wit h hemoglobin A1c goal of less than 8.0% 05/02/2022 [place] (myocardial infarction) 05/02/2022 Chronic systolic (congestive) heart failure 04/14 Left bundle branch block 05/02/2022 HTN, goal below 130/80 documented as of this encounter (statuses as of 11/15/2024) Resolved Problems Problem Noted Date Diagnosed Date [...] as of this encounter (statuses as of 11/15/2024) Immunizations Name Administration Dates Next Due COVID-19 [...] encounter Miscellaneous Notes * Telephone Encounter - Nelly Waller, MORGAN - 11/15/2024 12:07 PM EST I spoke with patient. * Telephone Encounter - Duke Pacheco CRNP - 11/15/2024 10:39 AM EST Secretaries, Can you please provide estimate for patient? Not sure where in case order patient is on 11/24/[address] Cartagena. Roughly 90 minute case. A few hours in PACU for recovery. * Telephone Encounter - Toma Palmer OSA - 11/15/2024 10:36 AM EST Patient calling to see if he can get an estimate of how long to expect to be at [facility] on date of his surgery so he can tell his transportation. Patient is aware we do not have times until day before and that if this is even possible it will be a rough estimation. Please call patient to discuss. documented in this encounter Plan of Treatment Upcoming Encounters Date Type Department Care Team (Latest Contact Info) Description 11/24/2024 7:15 AM EDT Hospital Encounter OR C, OPERATING ROOM [facility] [address] [place] [address] Benjamin Cartagena MD [address] [place] [address] 11/24/2024 7:15 AM EDT - 11/24/2024 9:18 AM EDT Surgery OR [facility], OPERATING ROOM [facility] [address] [place] [address] Benjamin Cartagena MD [address] [place] [address] ARTERIOVENOUS ANASTOMOSIS OPEN DIRECT ANY SITE 11/29/2024 1:10 PM EDT Office Visit Vascular Surgery, [facility] [address] [place] [address] [facility] MD [address] [facility] [address] 01/01/2025 10:30 AM EDT Office Visit Orthopaedics [facility] [address] [place] [phone] Delgado Dunn MD [address] [place] [phone] Scheduled Procedures Name Priority Associated Diagnoses Date/Ti me ARTERIOVENOUS ANASTOMOSIS OPEN DIRECT ANY SITE AVF (arteriovenous fistula) (HCC) ESRD on dialysis (HCC) 11/24/2024 7:15 AM EDT AV FISTULOGRAM & PERIPHERAL ANGIOPLASTY AVF (arteriovenous fistula) (HCC) ESRD on dialysis (HCC) 11/24/2024 7:15 AM EDT COLONOSCOPY FLEXIBLE PROXIMAL DIAGNOSTIC [...] 01/07/2024, 06/05/2023, 02/19/2023 Colorectal Cancer Screening 01/06/2025 Diabetic Foot [...] Healthcare Agent Relationshi p Communication Lorin Silvestre [facility] Health Care Repr esentative (appointed verbally by patient or by statute hierarchy) Care Teams Facility Sales And Admin Relationship Specialty Start Date End Date Antonio Colon MD [address] [place] [address] PCP - General Family Medicine 02/12/22 documented as of this encounter
--- OUTSIDE RECORDS SUMMARY | 2024-12-23 05:49 | External Medical Summary | Summary of Care ---
Author Name Unknown Organization [facility] Address [address] [place] [address] Phone [phone] Care Team Providers Care Help Desk Assistant Name Role Phone Antonio Colon MD Primary Care Provider [phone] Reason for Visit * Reason Comments Follow Up Encounter Details Date Type Department Care Team (Late st Contact Info) Description 10/25/2024 12:30 PM EST Office Visit Vascular Surgery, [facility] [address] [place] [address] Benjamin Cartagena MD [address] [place] [address] AVF (arteriovenous fistula) ([facility])*; ESRD on dialysis ([facility]) Allergies No known active allergiesdocumented as of this encounter (statuses as of 10/25/2024) Medications Co Q 10 10 MG Oral [...] Information Patient not taking.Reported on 10/25/2024 Pen Greenbrier 32G X 4 MM Use as directed. [...] 4 08/17/20 25 Active FreeStyle Carlos 2 [place] DeviceIndication s:Type 2 diabetes mellitus with hemoglobin A1c goal of less than 8.0% (HCC) USE DIRECTED. 1 Each 1 4 Active Metoprolol Succinate ER 25 MG Oral Tablet Extended Release 24 Hour (toPROL XL)Indications:C oronary artery disease involving pechanga coronary artery of pechanga heart without angina pectoris TAKE 1 TABLET [...] Oral Tablet (Effient)Indicat ions:Coronary artery disease involving pechanga coronary artery of pechanga heart without angina pectoris TAKE 1 TABLET [...] as of this encounter (statuses as of 10/25/2024) Active Problems Problem Noted Date Diagnosed Date [...] Dyslipidemia 05/02/2022 Coronary artery disease invo lving pechanga coronary artery of pechanga heart without angina pectoris 05/02/2022 Type 2 diabetes mellitus wit h hemoglobin A1c goal of less than 8.0% 05/02/2022 Old MO (myocardial infarction) 05/02/2022 Chronic systolic (congestive) heart failure 04/14 Left bundle branch block 05/02/2022 HTN, goal below 130/80 documented as of this encounter (statuses as of 10/25/2024) Resolved Problems Problem Noted Date Diagnosed Date [...] as of this encounter (statuses as of 10/25/2024) Immunizations Name Administration Dates Next Due COVID-19 mRNA, LNP-s, No Pre serve, 2-Dose Series (Moderna) 11/27/2020,10/24/2020 COVID-19, MRNA-LNP, PF, 50 M CG/0.5 mL, 12 YRS AND ABOVE, IM (MODERNA-Spikevax) 08/05/2021 Covid-19, Mrna, Lnp-s, Pf, B ivalent, 30 Mcg, IM, 12 yrs and above (Teach Me To Be) 09/09/2022 Hepatitis B, 20+ yrs 08/25/2017 Meningococcal [...] Sign Reading Time Taken Comments Blood Pressure 110/64 10/25/2024 12:37 PM EST Pulse 81 10/25/2024 12:37 PM EST Temperature - - Respiratory Rate - - Oxygen Saturation - - Inhaled Oxygen Concentration - - Weight 75.1 kg (165 lb 9.6 oz) 10/25/2024 12:37 PM EST Height - - Body Mass Index 24.45 10/16/2024 12:33 PM EST documented in this encounter Functional [...] Progress Notes * Maryann Lake PA-C - 10/25/2024 12:30 PM EST Images from the original note were not included. Date of Service: 10/25/2024 12:56 PM Tad Silvestre is a 69 year old male. Patient being seen in consultation at the request of Antonio Colon MD Chief Complaint: F/U AVF check S/P Left RC AVF for HD on 06/26/[address] Cartagena. No left hand pain No issues with TDC HPI: Former smoker with DM, HFnEF, CAD/prior MO/5 stents, HTN, HLD, PUD, HIV and ESRD on HD On kidney transplant list Has right TDC in place Receives HD [facility] in [place], T/H/Sat Patient is RIGHT handed PPM/ICD: No Raynaud's of hands/feet: No Retired, works in [place] for [employer] in [employer] Current Outpatient Medications Medication Sig Dispense [...] Capsule by mouth in the morning. Pen Greenbrier 32G X 4 MM Use as directed. [...] daily. 30 Tablet 11 FreeStyle Carlos 2 [place] Device USE DIRECTED. 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 05/07/2023 History of GI bleed 02/02/2024 Duodenal ulcer HIV positive ([facility]) Hypertension Idiopathic chronic pancreatitis ([facility]) 10/16/2024 Kidney disease, chronic, stage IV (GFR 15-29 ml/min) ([facility]) 05/02/2022 Left bundle branch block 05/02/2022 Old MO (myocardial infarction) 05/02/2022 Overweight (BMI 25.0-29.9) 05/02/2022 [...] performed by Benjamin Cartagena MD at [place] [facility] COLONOSCOPY, DIAGNOSTIC (RECTUM) N/A 02/19/2023 poor prep/nodular mucosa ascending colon/hemorrhoids/biopsies show adenomatous polyps, mild active inflammation/recall 1 year/Colonoscopy/[facility] MARCUS CAT,W/O PUMP;5YR/OLD Right 07/28/2024 INSERT TUNNELED CENTRAL VENOUS CATHETER AGE 3 OR OLDER performed by Damion Barber MD at OR [facility] NONE REPLACE,COMP,MARCUS CENT ACC DEV Right 08/22/2024 REPLACEMENT COMPLETE TUNNELED CENTRAL CATHETER NO PORT performed by Damion Barber MD at OR [facility] Family History Problem Relation Name Age [...] Stability Do you currently live in a fpc or have no steady place to sleep [...] pain, shortness of breath, palpitations, angina or MO Neurological: Negative for stroke, TIA, amaurosis fugax All other systems negative except for those noted above and in the history of present illness (HPI). GENERAL MULTI-SYSTEM PHYSICAL EXAM: VITAL SIGNS: BP 110/64 (BP Site: Right Arm, BP Position: Sitting, BP Cuff Size: Regular) | Pulse 81 | Wt 75.1 kg(165 lb 9.6 oz) | BMI 24.45 kg/m² | BSA 1.91 m² GENERAL MULTI-SYSTEM PHYSICAL EXAM:GENERAL: Normal grooming [...] Radial Art 0.32 cm 01/28/21 Carotid Duplex ([facility], report only): <50% B/L ICA stenosis 09/17/19 CT Abd/Pelvis ([facility], report only): No mention of [...] 07/20/2020 04:33 AM LDL CHOLESTEROL (CALCULATED) - NNEKAER 74 04/11/2024 10:31 AM LDL CHOLESTEROL (CALCULATED) - NNEKAER 64 06/15/2012 05:32 AM LDL CHOLESTEROL (DIRECT MEASURE) - NNEKAER 61 05/07/2022 04:25 PM Lab Results Component Value Date/Time HEMOGLOBIN A1C - [facility] 11.5 (H) 08/22/2024 03:34 PM The above clinical labs were reviewed by me on 07/19/2024 IMPRESSIONS: S/P Left RC AVF for HD on 06/26/[address] Cartagena. Delayed maturation of AVF ESRD, on HD via TDC Former smoker DM HFnEF CAD/prior MO/RCA stenting HTN HLD PUD HIV PLAN: Patient was counseled on concept of AVF, maturation times of AVF, failure rates of AVF to fully mature, custodial failure rates of AVF, physiologic reality of arterial steal due to AVF, and both concept & need of fistulograms. The patient was seen and examined with Benjamin Cartagena MD. While AVF has bruit and thrill, both are not overly impressive. 11/24/24 L arm fistulagram, possible creation of left arm arteriovenous fistula RTC the following week, 11/29 Maryann Lake PA-C Section of Vascular [place] [address] [phone] I have reviewed the advanced practitioner's documentation [...] access surgery to ensure continued functionality. The [facility] Hemodialysis Access Booklet was given to the patient. Benjamin Cartagena MD Section of Vascular [place] [address] [phone] documented in this encounter Nursing Notes * Any Allen CMA - 10/25/2024 12:39 PM EST Reviewed the option of transferring scripts to [facility] pharmacy with patient and / or family. Patient stated no change in medications. Any Allen CMA documented in this encounter Miscellaneous Notes * Addendum Note - Maryann Lake PA-C - 10/25/2024 2:12 PM ESTAddended by: MARYANN LAKE on: 10/25/2024 02:12 PM Modules accepted: Orders documented in this encounter Plan of Treatment Upcoming Encounters Date Type Department Care Team (Late st Contact Info) Description 11/02/2024 1:30 PM EST Office Visit Orthopaedics [facility] [address] [place] [phone] Delgado Dunn MD [address] [place] [phone] 11/24/2024 Hospital Encounter [facility], [facility] [address] [facility] [place] [phone] Benjamin Cartagena MD [address] [place] [address] 11/29/2024 1:10 PM EDT Office Visit Vascular Surgery, [facility] [address] [place] [place] [phone] Benjamin Cartagena MD [address], [place] [phone] Scheduled Procedures Name Priority Associated Diagnoses Date/Ti me ARTERIOVENOUS ANASTOMOSIS OP EN DIRECT ANY SITE AVF (arteriovenous fistula) (HCC) ESRD on dialysis (HCC) AV FISTULOGRAM & PERIPHERAL ANGIOPLASTY AVF (arteriovenous fistula) (HCC) ESRD on dialysis (HCC) COLONOSCOPY FLEXIBLE PROXIMA [...] Communication Lorin Silvestre [facility] Health Care Repr esentative (appointed verbally by patient or by statute hierarchy) Care Teams Help Desk Assistant Relationship Specialty Start Date End Date Antonio Colon MD [address] [place] [address] PCP - General Family Medicine 02/12/22 documented as of this encounter"
--- OUTSIDE RECORDS SUMMARY | 2024-12-23 05:49 | External Medical Summary | Summary of Care ---
Author Name Unknown Organization [facility] Address [address] [place] [address] Phone [phone] Care Team Providers Care Production Associate Name Role Phone Antonio Colon MD Primary Care Provider [phone] Reason for Referral * Evaluate & Treat - Unlimited Visits (Within 10 days (routine)) - Authorized Specialty Diagnoses / Procedures Referred By Marques garg Referred To Contact Physical Therapy / Physical Medicine And Rehab Diagnoses Closed fracture of left proximal humerus Delgado Dunn MD [address] [place] [address] Phone: tel: fax: Referral ID Status Reason Start Date Expiration Date Visits Requested Visits Authorized [id number] Authorized Specialty Services Required 11/02/2024 999 999 Question Answer Referral Priority Within 10 days (routine) Where should this appointment be scheduled? [facility] Comments Status post left shoulder greater tuberosity fracture Increased range of motion, increase strength Rotator cuff program with scapular stabilizing exercises Modalities as needed 2 to 3 times a week for 4-6 weeks Reason for Visit * Reason Comments Follow Up L proximal humerus f racture Encounter Details Date Type Department Care Team (Late st Contact Info) Description 11/02/2024 1:30 PM EST Office Visit Orthopaedics [facility] [address] [place] [phone] Delgado Dunn MD [address] [place] [address] Closed displaced fracture of greater tuberosity of left humerus with routine healing, subsequent encounter* Allergies No known active allergiesdocumented as of this encounter (statuses as of 11/02/2024) Medications Co Q 10 10 MG Oral [...] Information Patient not taking.Reported on 10/25/2024 Pen [place] 32G X 4 MM Use as directed. [...] goal of less than 8.0% ([facility]) Use as directed. Use one sensor every 14 days for blood sugar E10.65 1 Each 11 4 Active Fiasp FlexTouch 100 UNIT/ML Subcutaneous Solution Pen-injector (Insulin Aspart (w/Niacinamide)) Indications:Type 2 diabetes mellitus with hemoglobin A1c goal of less than 8.0% ([facility]) Inject 10 Units under the skin [...] 4 08/17/20 25 Active FreeStyle Carlos 2 [place] DeviceIndication s:Type 2 diabetes mellitus with hemoglobin A1c goal of less than 8.0% ([facility]) USE DIRECTED. 1 Each 1 4 Active Metoprolol Succinate ER 25 MG Oral Tablet Extended Release 24 Hour (toPROL XL)Indications:C oronary artery disease involving [place] coronary artery of [place] heart without angina pectoris TAKE 1 TABLET [...] Oral Tablet (Effient)Indicat ions:Coronary artery disease involving [place] coronary artery of [place] heart without angina pectoris TAKE 1 TABLET BY MOUTH EVERY DAY IN THE MORNING 90 Tablet 3 5 Active Hospital, Clinic, or Other Facility Administered Medication Ordered Dose Route Frequency Start Date End Date Status Albuterol Sulfate (Proventil) (2.5 MG/3ML) 0.083% inhalation solution 2.5 mgIndications:ESRD on dialysis ([facility]),Pre-transplant evaluation for ESRD (end stage renal disease) 2.5 mg NEBULIZER PRN 03/24/2024 Acti ve Albuterol Sulfate (Proventil) (5 MG/ML) 0.5% *conc* inhalation solution 2.5 mgIndications:ESRD on dialysis ([facility]),Pre-transplant evaluation for ESRD (end stage renal disease) 2.5 mg NEBULIZER PRN 03/24/2024 Acti ve documented as of this encounter (statuses as of 11/02/2024) Active Problems Problem Noted Date Diagnosed Date [...] Dyslipidemia 05/02/2022 Coronary artery disease invo lving [place] coronary artery of [place] heart without angina pectoris 05/02/2022 Type 2 diabetes mellitus wit h hemoglobin A1c goal of less than 8.0% 05/02/2022 Old NV (myocardial infarction) 05/02/2022 Chronic systolic (congestive) heart failure 04/14 Left bundle branch block 05/02/2022 HTN, goal below 130/80 documented as of this encounter (statuses as of 11/02/2024) Resolved Problems Problem Noted Date Diagnosed Date [...] as of this encounter (statuses as of 11/02/2024) Immunizations Name Administration Dates Next Due COVID-19 [...] documented in this encounter Progress Notes * eDlgado Dunn MD - 11/02/2024 2:12 PM EST ORTHOPAEDIC SURGERY - Post-Op/Fracture Clinic Note SUBJECTIVE: Tad Silvestre is a 69 year old male. Chief Complaint Patient presents with Follow Up L proximal humerus fracture ASSESSMENT: (S42.) Closed fracture of left proximal humerus (primary encounter diagnosis) 69 year old male 2 month(s) s/p conservative management of the left greater tuberosity fracture PLAN: We discussed diagnosis and treatment options with the patient today. At this time recommend the patient continue with activities as tolerated. He will start physical therapy for range of motion strengthening exercises. Follow Up: Return Follow up in 6-8 weeks, for Clinic Visit. | For: Clinic Visit. Patient will only require x-rays of the left shoulder if he has increased pain HPI: Tad Silvestre presents today 2 month(s) s/p Left shoulder greater tuberosity fracture treated non operatively. Patient denies any significant pain. He states he is able to sleep at night. He hasnoticed significant improvement with his range of motion.. Parathesia negative: Calf pain negative: Fevers or chills negative. Ambulating with crutches negative Review of patient's allergies indicates: No Known [...] 1 Capsule by mouth in the morning. Juluca 50-25 MG Oral Tablet Take 1 Tablet by mouth daily. (Patient not taking: Reported on 10/25/2024) 90 Tablet 3 Pen Deltona 32G X 4 MM Use as directed. [...] daily. 30 Tablet 11 FreeStyle Carlos 2 [place] Device USE DIRECTED. 1 Each 1 Metoprolol [...] EVERY DAY IN THE MORNING 90 Tablet3 Current Facility-Administered Medications Medication Dose Route Frequency Provider Last Rate Last Admin Albuterol Sulfate (Proventil) (2.5 MG/3ML) 0.083% inhalation solution 2.5 mg 2.5 mg Nebulizer PRN Albuterol Sulfate (Proventil) (5 MG/ML) 0.5% *conc* inhalation solution 2.5 mg 2.5 mg Nebulizer PRN2.5 mg at 04/27/24 1108 OBJECTIVE: Diagnostic studies: Patient underwent x-rays of the left shoulder today. Those x-rays show evidence of a greater tuberosity fracture with no change in alignment when compared to previous films. There is evidence of callus formation and healing. Vital Signs: There were no vitals taken for this visit. Physical Exam: Evaluation of the left shoulder. Range of motion is forward flexion to 140° with scapular elevation. External rotation is to 40°. Patient's strength is 5- out of 5 with the supraspinatus and external rotators. He has a positive impingement sign. Delgado Dunn MD Orthopaedics [address] [phone] Orthopedic Sports Medicine Surgery 11/02/2024 2:13 PM This chart was completed in part utilizing [employer] Speech Voice Recognition Software. Grammatical errors, random [...] documented in this encounter Nursing Notes * Ed Briones, JAYRO - 11/02/2024 1:33 PM EST Follow-up L proximal humerus fracture DOI- 09/06/24, fell on ice C/o 2/10 L shoulder pain, denies any numbness or tingling. Treatment: Given a Sling but doesn't wear, activity modification, Tylenol as needed. documented in this encounter Plan of Treatment Upcoming Encounters Date Type Department Care Team (Latest Contact Info) Description 11/24/2024 7:15 AM EDT Hospital Encounter [place] [facility], OPERATING ROOM [facility] [address] [place] [phone] Benjamin Cartagena MD [address] [place] [address] 11/24/2024 7:15 AM EDT - 11/24/2024 9:18 AM EDT Surgery OR [facility], OPERATING ROOM [facility] [address] [facility] [place] [facility] [phone] Benjamin Cartagena MD [address] [place] [address] ARTERIOVENOUS ANASTOMOSIS OPEN DIRECT ANY SITE 11/29/2024 1:10 PM EDT Office Visit Vascular Surgery, [facility] [address] [place] [address] Benjamin Cartagena MD [address], [place] [phone] 01/01/2025 10:30 AM EDT Office Visit Orthopaedics [facility] [address] [place] [phone] Delgado Dunn MD [address] [place] [phone] Pending Results Name Type Priority Associated Diagnoses Date /Time XR SHOULDER, 2 OR MORE VIEWS Medical Imaging Routine 11/02/2024 1:54 PM EST Scheduled Procedures Name Priority Associated [...] REFERRAL OP Referral Within 10 days (routine) Ordered: 11/02/2024 Health Maintenance Due Date Last Done Comments [...] 02/02/2024, Additional history exists TSH 08/22/2025 08/22/2024, 0510/2023, 02/02/2024, Additional history exists Depression Monitoring 09/01/2025 [...] End stage renal disease AVF (arteriovenous fistula) ([facility]) Arteriovenous fistula, acquired AVF (arteriovenous fistula) ([facility]) Arteriovenous fistula, acquired Closed displaced fracture of greater tuberosity of left humerus with routine healing, subsequent encounter- Primary AVF (arteriovenous fistula) ([facility]) Arteriovenous fistula, acquired ESRD on dialysis (HCC) [...] Healthcare Agent Relationshi p Communication Lorin Silvestre [facility] Health Care Repr esentative (appointed verbally by patient or by statute hierarchy) Care Teams Production Associate Relationship Specialty Start Date End Date Antonio Colon MD [address] [place] [address] PCP - General Family Medicine 02/12/22 documented as of this encounter"
--- OUTSIDE RECORDS SUMMARY | 2024-12-23 05:49 | External Medical Summary | Summary of Care ---
Author Name Unknown Organization [facility] Address [address] [place] [address] Phone [phone] Care Team Providers Care Network Security Architect Name Role Phone Antonio Colon MD Primary Care Provider [phone] Reason for Visit * Reason Comments Follow Up Encounter Details Date Type Department Care Team (Late st Contact Info) Description 10/25/2024 12:30 PM EST Office Visit Vascular Surgery, [facility] [address] [place] [address] Benjamin Cartagena MD [address] [place] [address] AVF (arteriovenous fistula) ([facility])*; ESRD on dialysis ([facility]) Allergies No known active allergiesdocumented [...] Information Patient not taking.Reported on 10/25/2024 Pen [place] 32G X 4 MM Use as directed. [...] 4 08/17/20 25 Active FreeStyle Carlos 2 [place] DeviceIndication s:Type 2 diabetes mellitus with hemoglobin A1c goal of less than 8.0% (HCC) USE DIRECTED. 1 Each 1 4 Active Metoprolol Succinate ER 25 MG Oral Tablet Extended Release 24 Hour (toPROL XL)Indications:C oronary artery disease involving [place] coronary artery of [place] heart without angina pectoris TAKE 1 TABLET [...] Oral Tablet (Effient)Indicat ions:Coronary artery disease involving [place] coronary artery of [place] heart without angina pectoris TAKE 1 TABLET [...] *conc* inhalation solution 2.5 mgIndications:ESRD on dialysis ([facility]),Pre-transplant evaluation for ESRD (end stage [...] Dyslipidemia 05/02/2022 Coronary artery disease invo lving [place] coronary artery of [place] heart without angina pectoris 05/02/2022 Type 2 [...] 30 Mcg, IM, 12 yrs and above ([employer]) 09/09/2022 Hepatitis B, 20+ yrs 08/25/2017 Meningococcal [...] HPI: Former smoker with DM, HFnEF, CAD/prior [place]/5 stents, HTN, HLD, PUD, HIV and ESRD on HD On kidney transplant list Has right TDC in place Receives HD [facility] in [place], T/H/Sat Patient is RIGHT handed PPM/ICD: No Raynaud's of hands/feet: No Retired, works in [employer] for [employer] in [facility] Current Outpatient Medications Medication Sig Dispense Refill [...] Capsule by mouth in the morning. Pen [place] 32G X 4 MM Use as directed. [...] daily. 30 Tablet 11 FreeStyle Carlos 2 [place] Device USE DIRECTED. 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 ESRD (end stage renal disease) on dialysis ([facility]) Duodenal ulcer AVF (arteriovenous fistula) ([facility]) HIV disease ([facility]) Iron deficiency anemia due to chronic blood loss Idiopathic chronic pancreatitis ([facility]) Past Medical History: Diagnosis Date Chronic heart failure with preserved ejection fraction ([facility]) 11/24/2022 Coronary artery disease involving [place] coronary artery of gambell heart without angina pectoris 05/02/2022 Duodenal ulcer 02/02/2024 Dyslipidemia 05/02/2022 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 05/07/2023 History of GI bleed 02/02/2024 Duodenal ulcer HIV positive ([facility]) Hypertension Idiopathic chronic pancreatitis ([facility]) 10/16/2024 Kidney disease, chronic, stage IV (GFR 15-29 ml/min) ([facility]) 05/02/2022 Left bundle branch block 05/02/2022 Old [place] (myocardial infarction) 05/02/2022 Overweight (BMI 25.0-29.9) 05/02/2022 Recurrent major depressive disorder, in full remission ([facility]) 05/05/2022 Systolic and diastolic CHF, chronic ([facility]) 05/02/2022 Type 2 diabetes mellitus with hemoglobin A1c goal of less than 8.0% ([facility]) 05/02/2022 Past Surgical History: Procedure Laterality Date AV ACCESS, AUTOGENOUS GRAFT Left 06/26/2024 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 performed by Benjamin Cartagena MD [place] [facility] [place]ONOSCOPY, DIAGNOSTIC (RECTUM) N/A 02/19/2023 poor prep/nodular mucosa ascending colon/hemorrhoids/biopsies show adenomatous polyps, mild active inflammation/recall 1 year/Colonoscopy/[place] INSER MARCUS CAT,W/O PUMP;5YR/OLD Right 07/28/2024 INSERT TUNNELED CENTRAL VENOUS CATHETER AGE 5 OR OLDER performed by Damion Barber MD at OR [facility] NONE REPLACE,COMP,MARCUS CENT ACC DEV Right 08/22/2024 REPLACEMENT COMPLETE TUNNELED CENTRAL CATHETER NO PORT performed by Damion Barber MD at OR [facility] Family History Problem Relation Name [...] Stability Do you currently live in a alf or have no steady place to sleep [...] pain, shortness of breath, palpitations, angina or [place] Neurological: Negative for stroke, TIA, amaurosis fugax [...] Radial Art 0.32 cm 01/28/21 Carotid Duplex ([facility], report only): <50% B/L ICA stenosis 09/17/19 CT Abd/Pelvis ([facility], report only): No mention of AAA LABS: [...] Component Value Date/Time HEM[facility]GLOBIN A[facility]C - [facility] 11.5 (H) 08/22/2024 03:34 PM The above clinical labs were reviewed by me on 07/19/2024 IMPRESSIONS: S/P Left RC AVF for HD on 06/26/[address] Cartagena. Delayed maturation of AVF ESRD, on HD via TDC Former smoker DM HFnEF CAD/prior [place]/RCA stenting HTN HLD PUD HIV PLAN: Patient was counseled on concept of AVF, maturation times of AVF, failure rates of AVF to fully mature, chcf failure rates of AVF, physiologic reality of [...] PA-C Section of Vascular [place] [address] [phone] I have reviewed the advanced practitioner's documentation [...] access surgery to ensure continued functionality. The [facility] Hemodialysis Access Booklet was given to the patient. Benjamin Cartagena MD Section of Vascular [place] [address] [phone] documented in this encounter Nursing Notes * Any Allen CMA - 10/25/2024 12:39 PM EST Reviewed the option of transferring scripts to [facility] pharmacy with patient and / or [...] 11/02/2024 1:30 PM EST Office Visit Orthopaedics [facility] [address] [place] [phone] Delgado Dunn MD [address] [place] [phone] 11/24/2024 Hospital Encounter [facility], [facility] [address] [place] [facility] [place] [phone] Benjamin Cartagena MD [address] [place] [address] 11/29/2024 1:10 PM EDT Office Visit Vascular Surgery, [facility] [address] [place] [place] [phone] Benjamin Cartagena MD [address], [place] [phone] Scheduled Procedures Name Priority Associated Diagnoses Date/Ti [...] patient or by statute hierarchy) Care Teams Network Security Architect Relationship Specialty Start Date End Date Antonio Colon MD [address] [place] [phone] PCP - General Family Medicine 02/12/22 documented as of this encounter"
--- OUTSIDE RECORDS SUMMARY | 2024-12-23 05:49 | External Medical Summary ---
Author Name Unknown Address Unknown Organization [id number]:[facility] - [address] [facility] [place] [address] Laboratory Report Ordering Provider Test Date Status RODOLFO WOLF 11/24/2024 11:55:25 Final Observation Date Value Abnormality Reference (Units ) Status Potassium, Whole Blood 11/24/2024 11:55:25 3.8 3.5-5.1 (mmol/L) Final Performing Location [facility] - [address] [facility] [place] [address]
--- OUTSIDE RECORDS SUMMARY | 2024-12-23 05:49 | External Medical Summary | Summary of Care ---
Author Name Unknown Organization [facility] Address [address] [place] [address] Phone [phone] Care Team Providers Care Copier Operator Name Role Phone Antonio Colon MD Primary Care Provider [phone] [phone] Reason for Visit * Reason Onset Date Comments Appointment 08/22/2024 Encounter Details Date Type Department Care Team (Late st Contact Info) Description 08/22/2024 Telephone Infectious Disease Treatment, [place] [address], [place] [phone] Shirley Asencio MD [address] [place] [address] Appointment Allergies No known active allergiesdocumented as of this encounter (statuses as of 11/22/2024) Medications Co Q 10 10 MG Oral [...] Tablet by mouth daily. 90 Tablet 3 024 Active Additional Information Patient not taking.Reported on 10/25/2024 Pen [place] 32G X 4 MM Use as directed. Use to inject insulin 4 times daily E11.9 400 Each 3 024 Active FLUoxetine HCl 20 MG Oral [...] Tablet 3 024 Active FreeStyle Carlos 2 SensorIndicatio ns:Type 2 diabetes mellitus with hemoglobin A1c goal of less than 8.0% ([facility]) Use as directed. Use one sensor every 14 days for blood sugar E10.65 1 Each 11 Active Fiasp FlexTouch 100 UNIT/ML Subcutaneous Solution [...] UNITS IN THE MORNING. 30 mL 1 024 Active Juluca 50-25 MG Oral Tablet (Dolutegravir-R ilpivirine) Take 1 Tablet by mouth daily. 30 Tablet 11 024 2024 Active Metoprolol Succinate ER 25 MG Oral Tablet Extended Release 24 Hour (toPROL XL)Indications: Coronary artery disease involving [place] coronary artery of [place] heart without angina pectoris TAKE 1 TABLET BY MOUTH EVERY DAY IN THE MORNING 90 Tablet 3 024 2024 Discontinued Prasugrel HCl 10 MG Oral Tablet (Effient)Indica tions:Coronary artery disease involving [place] coronary artery of [place] heart without angina pectoris TAKE 1 TABLET BY MOUTH EVERY DAY IN THE MORNING 90 Tablet 3 024 2024 Discontinued Atorvastatin Calcium 40 MG Oral Tablet (Lipitor)Indica tions:Dyslipide jimmy, goal LDL below 70 TAKE 1 TABLET BY MOUTH EVERY DAY IN THE MORNING 90 Tablet 3 024 2024 Discontinued vancomycin IV IV (AMBULATORY) Administer 1,000 mg intravenously once a day on Wednesday, , and Wednesday only for 10 days. Administer AFTER dialysis. Labs needed: CBC with diff, BMP and vancomycin level weekly until antibiotic completed. End Date Sep 05, 2024 10 g 024 2023 Hospital, Clinic, or Other Facility Administered Medication [...] as of this encounter (statuses as of 11/22/2024) Active Problems Problem Noted Date Diagnosed Date [...] Dyslipidemia 05/02/2022 Coronary artery disease invo lving [place] coronary artery of [place] heart without angina pectoris 05/02/2022 Type 2 diabetes mellitus wit h hemoglobin A1c goal of less than 8.0% 05/02/2022 Old [place] (myocardial infarction) 05/02/2022 Chronic systolic (congestive) heart failure 04/14 Left bundle branch block 05/02/2022 HTN, goal below 130/80 documented as of this encounter (statuses as of 11/22/2024) Resolved Problems Problem Noted Date Diagnosed Date [...] as of this encounter (statuses as of 11/22/2024) Immunizations Name Administration Dates Next Due COVID-19 mRNA, LNP-s, No Pre serve, 2-Dose Series (Moderna) 11/27/2020,10/24/2020 COVID-19, MRNA-LNP, PF, 50 M CG/0.5 mL, 12 YRS AND ABOVE, IM (MODERNA-Spikevax) 08/05/2021 Covid-19, Mrna, Lnp-s, Pf, B ivalent, 30 Mcg, IM, 12 yrs and above ([employer]) 09/09/2022 Hepatitis B, 20+ yrs 08/25/2017 Meningococcal [...] encounter Miscellaneous Notes * Telephone Encounter - Cheri Villar LPN - 08/22/2024 1:07 PM EST Called mobile number to schedule monkey pox vaccine. No answer. Left call back number and message. Cheri Villar LPN documented in this encounter Plan of Treatment Upcoming Encounters Date Type Department Care Team (Latest Contact Info) Description 11/24/2024 7:15 AM EDT Hospital Encounter [place] [facility] [facility] [address] [place] [place] [address] Benjamin Cartagena MD [address] [place] [address] 11/24/2024 7:15 AM EDT - 11/24/2024 9:02 AM EDT Surgery [place] [facility] [facility] [address] [place] [facility] [place] [place] [address] Benjamin Cartagena MD [address] [place] [address] ARTERIOVENOUS ANASTOMOSIS OPEN DIRECT ANY SITE 11/29/2024 1:10 PM EDT Office Visit Vascular Surgery, [facility] [address] [place] [address] Benjamin Cartagena MD [address] [place] [address] 01/01/2025 10:30 AM EDT Office Visit Orthopaedics [facility] [address] [place] [address] Delgado Dunn MD [address] [place] [phone] Scheduled Procedures Name [...] Healthcare Agent Relationshi p Communication Lorin Silvestre [facility] Health Care Repr esentative (appointed verbally by patient or by statute hierarchy) Care Teams Copier Operator Relationship Specialty Start Date End Date Antonio Colon MD [address] [facility] [place] [address] PCP - General Family Medicine 02/12/22 documented as of this encounter
--- OUTSIDE RECORDS SUMMARY | 2024-12-23 05:49 | External Medical Summary | Summary of Care ---
Author Name Unknown Organization [facility] Address [address] [place] [address] Phone [phone] Care Team Providers Care Pilot Plant Supervisor Name Role Phone Antonio Colon MD Primary Care Provider [phone] [phone] Reason for Visit * Reason Onset Date Comments Advice 11/15/2024 Day of surgery Encounter Details Date Type Department Care Team (Late st Contact Info) Description 11/15/2024 Telephone Vascular Surg [facility] [address] [place] [address] Benjamin Cartagena MD [address] [place] [address] Advice (Day of surgery ) [...] Information Patient not taking.Reported on 10/25/2024 Pen [place] 32G X 4 MM Use as directed. [...] 4 08/17/20 25 Active FreeStyle Carlos 2 [place] DeviceIndication s:Type 2 diabetes mellitus with hemoglobin A1c goal of less than 8.0% (HCC) USE DIRECTED. 1 Each 1 4 Active Metoprolol Succinate ER 25 MG Oral Tablet Extended Release 24 Hour (toPROL XL)Indications:C oronary artery disease involving [place] coronary artery of [...] Oral Tablet (Effient)Indicat ions:Coronary artery disease involving [place] coronary artery of [...] how long to expect to be at [facility] on date of his surgery so he [...] EDT Hospital Encounter OR C, OPERATING ROOM [facility], [facility] [address] [place] [address] eBnjamin Cartagena MD [address] [place] [address] 11/24/2024 7:15 AM EDT - 11/24/2024 9:18 AM EDT Surgery OR [facility], OPERATING ROOM [facility] [address] [place] [address] Benjamin Cartagena MD [address] [place] [address] ARTERIOVENOUS ANASTOMOSIS OPEN DIRECT ANY SITE 11/29/2024 1:10 PM EDT Office Visit Vascular Surgery, [facility] [address] [place] [address] [facility] [address] [facility] [address] 01/01/2025 10:30 AM EDT Office Visit Orthopaedics [facility] [address] [place] [phone] Delgado Dunn MD [address] [place] [phone] Scheduled Procedures Name Priority Associated Diagnoses Date/Ti [...] Healthcare Agent Relationshi p Communication Lorin Silvestre [facility] Health Care Repr esentative (appointed verbally by patient or by statute hierarchy) Care Teams Pilot Plant Supervisor Relationship Specialty Start Date End Date Antonio Colon MD [address] [place] [address] PCP - General Family Medicine 02/12/22 documented as of this encounter
--- OUTSIDE RECORDS SUMMARY | 2024-12-23 05:49 | External Medical Summary | Summary of Care ---
Author Name Unknown Organization [facility] Address [address] [place] [address] Phone [phone] Care Team Providers Care Office Coordinator Name Role Phone Antonio Colon MD Primary Care Provider [phone] Reason for Visit * Reason Comments Follow Up Encounter Details Date Type Department Care Team (Late st Contact Info) Description 10/25/2024 12:30 PM EST Office Visit Vascular Surgery, [facility] [address] [place] [address] Benjamin Cartagena MD [address] [place] [address] AVF (arteriovenous fistula) ([facility])*; ESRD on dialysis ([facility]) Allergies No [...] Information Patient not taking.Reported on 10/25/2024 Pen [place] 32G X 4 MM Use as directed. [...] 4 08/17/20 25 Active FreeStyle Carlos 2 [place] DeviceIndication s:Type 2 diabetes mellitus with hemoglobin A1c goal of less than 8.0% (HCC) USE DIRECTED. 1 Each 1 4 Active Metoprolol Succinate ER 25 MG Oral Tablet Extended Release 24 Hour (toPROL XL)Indications:C oronary artery disease involving [place] coronary artery of [place] heart without angina pectoris TAKE 1 TABLET [...] Oral Tablet (Effient)Indicat ions:Coronary artery disease involving [place] coronary artery of [place] heart without angina pectoris TAKE 1 TABLET [...] solution 2.5 mgIndications:ESRD on dialysis ([facility]),Pre-transplant evaluation for ESRD (end stage [...] Dyslipidemia 05/02/2022 Coronary artery disease invo lving [place] coronary artery of [place] heart without angina pectoris 05/02/2022 Type 2 [...] 30 Mcg, IM, 12 yrs and above ([employer]) 09/09/2022 Hepatitis B, 20+ yrs 08/25/2017 Meningococcal [...] HPI: Former smoker with DM, HFnEF, CAD/prior [place]/5 stents, HTN, HLD, PUD, HIV and ESRD on HD On kidney transplant list Has right TDC in place Receives HD [facility] in [place], T/H/Sat Patient is RIGHT handed PPM/ICD: No Raynaud's of hands/feet: No Retired, works in [employer] for [employer] in [facility] Current Outpatient Medications Medication Sig Dispense [...] Capsule by mouth in the morning. Pen [place] 32G X 4 MM Use as directed. [...] daily. 30 Tablet 11 FreeStyle Carlos 2 [place] Device USE DIRECTED. 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 ESRD (end stage renal disease) on dialysis ([facility]) Duodenal ulcer AVF (arteriovenous fistula) ([facility]) HIV disease ([facility]) Iron deficiency anemia due to chronic blood loss Idiopathic chronic pancreatitis ([facility]) Past Medical History: Diagnosis Date Chronic heart failure with preserved ejection fraction ([facility]) 11/24/2022 Coronary artery disease involving [place] coronary artery of [place] heart without angina pectoris 05/02/2022 Duodenal ulcer 02/02/2024 Dyslipidemia 05/02/2022 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 05/07/2023 History of GI bleed 02/02/2024 Duodenal ulcer HIV positive ([facility]) Hypertension Idiopathic chronic pancreatitis ([facility]) 10/16/2024 Kidney disease, chronic, stage IV (GFR 15-29 ml/min) ([facility]) 05/02/2022 Left bundle branch block 05/02/2022 Old [place] (myocardial infarction) 05/02/2022 Overweight (BMI 25.0-29.9) 05/02/2022 [...] performed by Benjamin Cartagena MD at [place] [facility] COLONOSCOPY, DIAGNOSTIC (RECTUM) N/A 02/19/2023 poor prep/nodular mucosa ascending colon/hemorrhoids/biopsies show adenomatous polyps, mild active inflammation/recall 1 year/Colonoscopy/[place] INSER MARCUS CAT,W/O PUMP;5YR/OLD Right 07/28/2024 INSERT TUNNELED CENTRAL VENOUS CATHETER AGE 5 OR OLDER performed by Damion Barber MD at OR [facility] NONE REPLACE,COMP,MARCUS CENT ACC DEV Right 08/22/2024 REPLACEMENT COMPLETE TUNNELED CENTRAL CATHETER NO PORT performed by Damion Barber MD at OR [facility] Family History Problem Relation Name Age of [...] Stability Do you currently live in a nursing home or have no steady place to [...] pain, shortness of breath, palpitations, angina or [place] Neurological: Negative for stroke, TIA, amaurosis fugax [...] 0.32 cm 01/28/21 Carotid Duplex ([facility], report only): <50% B/L ICA stenosis 09/17/19 CT Abd/Pelvis ([facility], report only): No mention of AAA LABS: [...] Component Value Date/Time [facility] (H[facility] 08/22/2024 03:34 PM The above clinical labs were reviewed by me on 07/19/2024 IMPRESSIONS: S/P Left RC AVF for HD on 06/26/[address] Cartagena. Delayed maturation of AVF ESRD, on HD via TDC Former smoker DM HFnEF CAD/prior [place]/RCA stenting HTN HLD PUD HIV PLAN: Patient was counseled on concept of AVF, maturation times of AVF, failure rates of AVF to fully mature, fci failure rates of AVF, physiologic reality of [...] PA-C Section of Vascular [place] [address] [phone] I have reviewed the advanced practitioner's documentation [...] access surgery to ensure continued functionality. The [facility] Hemodialysis Access Booklet was given to the patient. Benjamin Cartagena MD Section of Vascular [place] [address] [phone] documented in this encounter Nursing Notes * Any Allen CMA - 10/25/2024 12:39 PM EST Reviewed the option of transferring scripts to [facility] pharmacy with patient and / or family. [...] 11/02/2024 1:30 PM EST Office Visit Orthopaedics [facility] [address] [place] [phone] Delgado Dunn MD [address] [place] [phone] 11/24/2024 Hospital Encounter [facility] [address] [place] [facility] [place] [phone] Benjamin Cartagena MD [address] [place] [address] 11/29/2024 1:10 PM EDT Office Visit Vascular Surgery, [facility] [address] [place] [phone] Benjamin Cartagena MD [address] [place], [place] [phone] Scheduled Procedures Name Priority Associated Diagnoses Date/Ti [...] Healthcare Agent Relationshi p Communication Lorin Silvestre [facility] Health Care Repr esentative (appointed verbally by patient or by statute hierarchy) Care Teams Office Coordinator Relationship Specialty Start Date End Date Antonio Colon MD [address] [place] [address] PCP - General Family Medicine 02/12/22 documented as of this encounter"
--- OUTSIDE RECORDS SUMMARY | 2024-12-23 05:50 | External Medical Summary | Summary of Care ---
Author Name Unknown Organization [facility] Address [address] [place] [address] Phone [phone] Care Team Providers Care Acid Purification Equipment Operator Name Role Phone Antonio Colon MD Primary Care Provider [phone] Reason for Visit * Reason Onset Date Comments Pre-Transplant Evaluation 09/26/2024 Encounter Details Date Type Department Care Team (Late st Contact Info) Description [facility] [address] [place] [address] Agnieszka Capellan, RN [address] [place] [id number] Pre-Transplant Evaluation Allergies No known active allergiesdocumented as of this encounter (statuses as of 09/26/2024) Medications Co Q 10 10 MG Oral [...] Hour (toPROL XL)Indications:Co ronary artery disease involving [place] coronary artery of [place] heart without angina pectoris TAKE 1 TABLET BY MOUTH EVERY DAY IN THE MORNING 90 Tablet 3 4 Active Prasugrel HCl 10 MG Oral Tablet (Effient)Indicati ons:Coronary artery disease involving [place] coronary artery of [place] heart without angina pectoris TAKE 1 [...] daily. 90 Tablet 3 4 Active Pen [place] 32G X 4 MM Use as directed. [...] mouth daily. 30 Tablet 11 4 08/17/20 Active FreeStyle Carlos 2 [place] DeviceIndications :Type 2 diabetes mellitus with hemoglobin A1c goal of less than 8.0% ([facility]) USE DIRECTED. 1 Each 1 4 Active Hospital, Clinic, or Other Facility Administered Medication Ordered Dose Route Frequency Start Date End Date Status Albuterol Sulfate (Proventil) (2.5 MG/3ML) 0.083% inhalation solution 2.5 mgIndications:ESRD on dialysis ([facility]),Pre-transplant evaluation for ESRD (end stage renal disease) 2.5 mg NEBULIZER PRN 03/24/2024 Acti ve Albuterol Sulfate (Proventil) (5 MG/ML) 0.5% *conc* inhalation solution 2.5 mgIndications:ESRD on dialysis ([facility]),Pre-transplant evaluation for ESRD (end stage renal disease) 2.5 mg NEBULIZER PRN 03/24/2024 Acti ve documented as of this encounter (statuses as of 09/26/2024) Active Problems Problem Noted Date Diagnosed Date [...] Dyslipidemia 05/02/2022 Coronary artery disease invo lving [place] coronary artery of [place] heart without angina pectoris 05/02/2022 Type 2 diabetes mellitus wit h hemoglobin A1c goal of less than 8.0% 05/02/2022 Old [place] (myocardial infarction) 05/02/2022 Chronic systolic (congestive) heart failure 04/14 Left bundle branch block 05/02/2022 HTN, goal below 130/80 HIV positive documented as of this encounter (statuses as of 09/26/2024) Resolved Problems Problem Noted Date Diagnosed Date [...] as of this encounter (statuses as of 09/26/2024) Immunizations Name Administration Dates Next Due COVID-19 mRNA, LNP-s, No Pre serve, 2-Dose Series (Moderna) 11/27/2020,10/24/2020 COVID-19, MRNA-LNP, PF, 50 M CG/0.5 mL, 12 YRS AND ABOVE, IM (MODERNA-Spikevax) 08/05/2021 Covid-19, Mrna, Lnp-s, Pf, B ivalent, 30 Mcg, IM, 12 yrs and above ([email or web address]) 09/09/2022 Hepatitis B, 20+ yrs 08/25/2017 Meningococcal [...] Telephone Encounter - Agnieszka Capellan RN - 09/26/2024 3:01 PM EST Call placed to patient regarding recommendations from ID, patient needs to have a viral load that is undetectable and his labwork from 08-22-24 still has an RNA of 125 and RNA log of 2.10; pt reportshe had missed some of his medication as the hospital he was in did not carry it ([facility]) and one place had to substitute the two separate drug ingredients after a missed dose. Also, we have not been a ble to local a colonoscopy from 2023, patient feels he had this repeated while in [facility] in [facility] of [address] Gianfranco Khalil; however, I can only find an upper GI endoscopy from 01/23/24. Requested MORGAN to obtain results, if possible. Pathology from [place] anal scope and lesion sampling from 05/06 available in care everywhere. Agnieszka Capellan, RN 3:07 PM documented in this encounter Plan of Treatment Upcoming Encounters Date Type Department Care Team (Late st Contact Info) Description 10/13/2024 9:00 AM EST Office Visit Family Practice [facility] [address] [place] [address] Antonio Colon MD [address] [place] [address] 10/25/2024 12:30 PM EST Office Visit Vascular Surgery, [facility] [address] [facility] [place] [address] Benjamin Cartagena MD [address], [place] [...] Healthcare Agent Relationshi p Communication Lorin Silvestre [facility] Health Care Repr esentative (appointed verbally by patient or by statute hierarchy) Care Teams Acid Purification Equipment Operator Relationship Specialty Start Date End Date Antonio Colon MD [address] [place] [id number] PCP - General Family Medicine 02/12/22 documented as of this encounter
--- OUTSIDE RECORDS SUMMARY | 2024-12-23 05:50 | External Medical Summary | Summary of Care ---
Author Name Unknown Organization [facility] Address [address] [place] [address] Phone [phone] Care Team Providers Care Aed Trainer Name Role Phone Antonio Colon MD Primary Care Provider [phone] Reason for Visit * Reason Comments eRx-Medication Refill Encounter Details Date Type Department Care Team (Late st Contact Info) Description 10/07/2024 Refill Cardiology, [facility] [address] [facility] [address] Cristina Mota MD [address] [place] [address] Coronary artery disease involving [place] coronary artery of [place] heart without angina pectoris Allergies No known active allergiesdocumented as of this encounter (statuses as of 10/08/2024) Medications Co Q 10 10 MG Oral Capsule Take by mouth 1 Caplet Dosing Unit daily . Active Aspirin 81 MG Oral Capsule Take by mouth 1 Caplet Dosing Unit daily . Active Multi-Day Oral Tablet Take by mouth 1 Tablet in the morning. Active Vitamin D-3 25 MCG (1000 UT) Oral Capsule Take 1 Capsule by mouth in the morning. Active Prasugrel HCl 10 MG Oral Tablet (Effient)Indicat ions:Coronary artery disease involving [place] coronary artery of [place] heart without angina pectoris TAKE 1 TABLET [...] 90 Tablet 3 12/01/19 24 Active Pen [place] 32G X 4 MM Use as directed. [...] 30 Tablet 11 08/22/20 24 025 Active FreeStyle Carlos 2 [place] DeviceIndication s:Type 2 diabetes mellitus with hemoglobin A1c goal of less than 8.0% ([facility]) USE DIRECTED. 1 Each 1 08/29/20 24 Active Metoprolol Succinate ER 25 MG Oral Tablet Extended Release 24 Hour (toPROL XL)Indications:C oronary artery disease involving [place] coronary artery of [place] heart without angina pectoris TAKE 1 TABLET BY MOUTH EVERY DAY IN THE MORNING 90 Tablet 3 10/08/19 25 Active Metoprolol Succinate ER 25 MG Oral Tablet Extended Release 24 Hour (toPROL XL)Indications:C oronary artery disease involving [place] coronary artery of [place] heart without angina pectoris TAKE 1 TABLET BY MOUTH EVERY DAY IN THE MORNING 90 Tablet 3 10/05/19 24 025 Discontinued Hospital, Clinic, or Other Facility Administered Medication Ordered Dose Route Frequency Start Date End Date Status Albuterol Sulfate (Proventil) (2.5 MG/3ML) 0.083% inhalation solution 2.5 mgIndications:ESRD on dialysis ([facility]),Pre-transplant evaluation for ESRD (end stage renal disease) 2.5 mg NEBULIZER PRN 03/24/2024 Acti ve Albuterol Sulfate (Proventil) (5 MG/ML) 0.5% *conc* inhalation solution 2.5 mgIndications:ESRD on dialysis ([facility]),Pre-transplant evaluation for ESRD (end stage renal disease) 2.5 mg NEBULIZER PRN 03/24/2024 Acti ve documented as of this encounter (statuses as of 10/08/2024) Active Problems Problem Noted Date Diagnosed Date [...] 05/02/2022 Coronary artery disease invo lving [place] coronary artery of [place] heart without angina pectoris 05/02/2022 Type 2 diabetes mellitus wit h hemoglobin A1c goal of less than 8.0% 05/02/2022 Old [place] (myocardial infarction) 05/02/2022 Chronic systolic (congestive) heart failure 04/14 Left bundle branch block 05/02/2022 HTN, goal below 130/80 HIV positive documented as of this encounter (statuses as of 10/08/2024) Resolved Problems Problem Noted Date Diagnosed Date [...] as of this encounter (statuses as of 10/08/2024) Immunizations Name Administration Dates Next Due COVID-19 [...] encounter Miscellaneous Notes * Telephone Encounter - Maryann Lemos, [facility] - 10/08/2024 12:55 PM EST Signed Prescriptions: Disp Refills Metoprolol Succinate ER 25 MG Oral Tablet *90 Tab*3 Sig: TAKE 1 TABLET BY MOUTH EVERY DAY IN THE MORNINGAuthorizing Provider: CRISTINA MOTA User: MARYANN LEMOS documented in this encounter Plan of Treatment Upcoming Encounters Date Type Department Care Team (Late st Contact Info) Description 10/13/2024 9:00 AM EST Office Visit Family Practice [facility] [address] [place] [address] Antonio Colon MD [address] [place] [address] 10/25/2024 12:30 PM EST Office Visit Vascular Surgery, [facility] [address] [place] [address] Benjamin Cartagena MD [address] [place] [address] 11/02/2024 1:30 PM EST Office Visit Orthopaedics [facility] [address] [place] [address] Delgado Dunn MD [address] [place] [phone] Scheduled Procedures Name Priority Associated Diagnoses Date/Ti [...] as of this encounter Visit Diagnoses Diagnosis Coronary artery disease involving [place] coronary artery of [place] heart without angina pectoris documented in this encounter Advance Directives * [...] Healthcare Agent Relationshi p Communication Lorin Silvestre [facility] Health Care Repr esentative (appointed verbally by patient or by statute hierarchy) Care Teams Aed Trainer Relationship Specialty Start Date End Date Antonio Colon MD [address] [place] [address] PCP - General Family Medicine 02/12/22 documented as of this encounter
--- OUTSIDE RECORDS SUMMARY | 2024-12-23 05:50 | External Medical Summary | Summary of Care ---
Author Name Unknown Organization [facility] Address [address] [place] [address] Phone [phone] Care Team Providers Care Medical Management Specialist Name Role Phone Antonio Colon MD Primary Care Provider [phone] Reason for Visit * Reason Comments Fracture Left proximal humeru s Fall Initial da ys ago fell on ice. In sling Encounter Details Date Type Department Care Team (Late st Contact Info) Description 10/05/2024 9:45 AM EST Office Visit Orthopaedics [facility] [address] [place] [address] Delgado Dunn MD [address] [place] [phone] Other closed displaced fracture of proximal end of left humerus, initial encounter* Allergies No known active allergiesdocumented as of this encounter (statuses as of 10/05/2024) Medications Co Q 10 10 MG Oral [...] Hour (toPROL XL)Indications:Co ronary artery disease involving [place] coronary artery of [place] heart without angina pectoris TAKE 1 TABLET BY MOUTH EVERY DAY IN THE MORNING 90 Tablet 3 4 Active Prasugrel HCl 10 MG Oral Tablet (Effient)Indicati ons:Coronary artery disease involving [place] coronary artery of [place] heart without angina pectoris TAKE 1 TABLET BY MOUTH EVERY DAY IN THE MORNING 90 Tablet 3 4 Active Atorvastatin Calcium 40 MG Oral Tablet (Lipitor)Indicati ons:Dyslipidemia, goal LDL below 70 TAKE 1 TABLET BY MOUTH EVERY DAY IN THE MORNING 90 Tablet 3 4 Active [place] 50-25 MG Oral Tablet Take 1 Tablet by mouth daily. 90 Tablet 3 4 Active Pen [place] 32G X 4 MM Use as directed. [...] of less than 8.0% ([facility]) Use as directed. Use one sensor every [...] 4 08/17/20 25 Active FreeStyle Carlos 2 [place] DeviceIndications :Type 2 diabetes mellitus with hemoglobin A1c goal of less than 8.0% ([facility]) USE DIRECTED. 1 Each 1 4 Active [...] as of this encounter (statuses as of 10/05/2024) Active Problems Problem Noted Date Diagnosed Date [...] Dyslipidemia 05/02/2022 Coronary artery disease invo lving [place] coronary artery of [place] heart without angina pectoris 05/02/2022 Type 2 diabetes mellitus wit h hemoglobin A1c goal of less than 8.0% 05/02/2022 Old [place] (myocardial infarction) 05/02/2022 Chronic systolic (congestive) heart failure 04/14 Left bundle branch block 05/02/2022 HTN, goal below 130/80 HIV positive documented as of this encounter (statuses as of 10/05/2024) Resolved Problems Problem Noted Date Diagnosed Date [...] as of this encounter (statuses as of 10/05/2024) Immunizations Name Administration Dates Next Due COVID-19 mRNA, LNP-s, No Pre serve, 2-Dose Series (Moderna) 11/27/2020,10/24/2020 COVID-19, MRNA-LNP, PF, 50 M CG/0.5 mL, 12 YRS AND ABOVE, IM (MODERNA-Spikevax) 08/05/2021 Covid-19, Mrna, Lnp-s, Pf, B ivalent, 30 Mcg, IM, 12 yrs and above ([employer]) 09/09/2022 Hepatitis B, 20+ yrs 08/25/2017 Meningococcal [...] - - Weight 78 kg (172 lb) 10/05/2024 9:42 AM EST Height 175.3 cm (5' 9") 10/05/2024 9:42 AM EST Body Mass Index 25.4 10/05/2024 9:42 AM EST documented in this encounter Functional [...] in this encounter Progress Notes * Delgado Dunn MD - 10/05/2024 10:07 AM EST ORTHOPAEDIC SURGERY - Clinic Note SUBJECTIVE: Tad Silvestre is a 69 year old male. Chief Complaint Patient presents with Fracture Left proximal humerus Fall Initial 09/06/24 2 days ago fell on ice. In sling ASSESSMENT: (S41.250A) Other closed displaced fracture of proximal end of left humerus, initial encounter (primary encounter diagnosis) 69 year old male 4 month(s) s/p conservative management of a left proximal humerus fracture PLAN: We discussed diagnosis and treatment options with the patient today. The x-ray does show evidence of fracture healing without any change in alignment. At this time we recommend that the patient continue with activity modification and the sling for activities. Follow Up: Return Follow up in 4 weeks, for Clinic Visit. | For: Clinic Visit. Patient will requiretrue AP and an axillary Y-view of the left shoulder on return visit. HPI: Tad Silvestre presents today 1 month(s) s/p Left shoulder proximal humerus fracture treated conservatively with sling and swath. Patient missed an appointment secondary to admission to the hospital for pancreatitis and port change. He states since his last visit he did have a tumble recently and some increased shoulder pain. He presents to our office today for evaluation and treatment management of the new injury and follow up of his humerus fracture.. Parathesia negative: Calf pain negative: Fevers or [...] by mouth daily. 90 Tablet 3 Pen [place] 32G X 4 MM Use as directed. [...] daily. 30 Tablet 11 FreeStyle Carlos 2 Parker Device USE DIRECTED. 1 Each 1 Current Facility-Administered Medications Medication Dose Route Frequency Provider Last Rate Last Admin Albuterol Sulfate (Proventil) (2.5 MG/3ML) 0.083% inhalation solution 2.5 mg 2.5 mg Nebulizer PRN Albuterol Sulfate (Proventil) (5 MG/ML) 0.5% *conc* inhalation solution 2.5 mg 2.5 mg Nebulizer PRN2.5 mg at 04/27/24 1108 OBJECTIVE: Diagnostic studies: Reviewed the x-rays of the left shoulder today. Patient underwent true AP and a Y-view of the left shoulder. Those x-rays show evidence of a proximal humerus fracture with fracture healing when compared to the previous films. There is no change in alignment. Vital Signs: Ht 1.753 m (5' 9") | Wt 78 kg (172 lb) | BMI 25.40 kg/m² | BSA 1.95 m² Physical Exam: Evaluation of the left shoulder. Range of motion is forward flexion 90°, external rotation is 40°. Patient does have pain with resisted strength testing. Supraspinatus and external rotation strength is 4+ out of 5 on the left compared to the right. Delgado Dunn MD Orthopaedics [facility] [address] [place] [address] Orthopedic Sports Medicine Surgery 10/05/2024 10:07 AM This chart was completed in part utilizing [employer] Voice Recognition Software. Grammatical errors, random word insertions, pronoun errors, and incomplete sentences are an occasional consequence of this system due to software limitations, ambient noise, and hardware issues. Any formal questions or concerns about the content, text, or information contained within the body of this dictation should be directly addressed to the provider for clarification. documented in this encounter Plan of Treatment Upcoming Encounters Date Type Department Care Team (Late st Contact Info) Description 10/13/2024 9:00 AM EST Office Visit Family Practice [facility] [address] [facility] [address] Antonio Colon MD [address] [facility] [place] [address] 10/25/2024 12:30 PM EST Office Visit Vascular Surgery, [facility] [address] [facility] [place] [address] Benjamin Cartagena MD [address] [place] [address] 11/02/2024 1:30 PM EST Office Visit Orthopaedics [facility] [address] [place] [phone] Delgado Dunn MD [address] [place] [phone] Pending Results Name Type Priority Associated Diagnoses Date /Time XR SHOULDER, 2 OR MORE VIEWS Medical Imaging Routine Other closed displaced fracture of proximal end of left humerus, initial encounter 10/05/2024 9:57 AM EST Scheduled Procedures Name Priority Associated Diagnoses [...] Healthcare Agent Relationshi p Communication Lorin Silvestre [facility] Health Care Repr esentative (appointed verbally by patient or by statute hierarchy) Care Teams Medical Management Specialist Relationship Specialty Start Date End Date Antonio Colon MD [address] [place] [address] PCP - General Family Medicine 02/12/22 documented as of this encounter
--- OUTSIDE RECORDS SUMMARY | 2024-12-23 05:50 | External Medical Summary | Summary of Care ---
Author Name Unknown Organization [facility] Address [address] [place] [address] Phone [phone] Care Team Providers Care Farm Assistant Name Role Phone Antonio Colon MD Primary Care Provider [phone] Reason for Visit * Reason Comments Follow Up Encounter Details Date Type Department Care Team (Late st Contact Info) Description 10/25/2024 12:30 PM EST Office Visit Vascular Surgery, [facility] [address] [place] [address] Benjamin Cartagena MD [address] [place] [address] AVF (arteriovenous fistula) ([facility])*; ESRD on dialysis ([facility]) Allergies No known active allergiesdocumented [...] Information Patient not taking.Reported on 10/25/2024 Pen Randolph 32G X 4 MM Use as directed. [...] 4 08/17/20 25 Active FreeStyle Carlos 2 [place] DeviceIndication s:Type 2 diabetes mellitus with hemoglobin A1c goal of less than 8.0% (HCC) USE DIRECTED. 1 Each 1 4 Active Metoprolol Succinate ER 25 MG Oral Tablet Extended Release 24 Hour (toPROL XL)Indications:C oronary artery disease involving pala coronary artery of pala heart without angina pectoris TAKE 1 TABLET [...] Oral Tablet (Effient)Indicat ions:Coronary artery disease involving pala coronary artery of pala heart without angina pectoris TAKE 1 TABLET [...] *conc* inhalation solution 2.5 mgIndications:ESRD on dialysis ([facility]),Pre-transplant evaluation for ESRD (end stage [...] Dyslipidemia 05/02/2022 Coronary artery disease invo lving pala coronary artery of pala heart without angina pectoris 05/02/2022 Type 2 diabetes mellitus wit h hemoglobin A1c goal of less than 8.0% 05/02/2022 Old [place] (myocardial infarction) 05/02/2022 Chronic systolic (congestive) heart [...] 30 Mcg, IM, 12 yrs and above ([facility]) 09/09/2022 Hepatitis B, 20+ yrs 08/25/2017 Meningococcal [...] HPI: Former smoker with DM, HFnEF, CAD/prior IA/5 stents, HTN, HLD, PUD, HIV and ESRD on HD On kidney transplant list Has right TDC in place Receives HD [facility] in [place], T/H/Sat Patient is RIGHT handed PPM/ICD: No Raynaud's of hands/feet: No Retired, works in [employer] for [employer] in [employer] Current Outpatient Medications Medication Sig Dispense Refill [...] Capsule by mouth in the morning. Pen Randolph 32G X 4 MM Use as directed. [...] daily. 30 Tablet 11 FreeStyle Carlos 2 [place] Device USE DIRECTED. 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 ESRD (end stage renal disease) on dialysis ([facility]) Duodenal ulcer AVF (arteriovenous fistula) ([facility]) HIV disease ([facility]) Iron deficiency anemia due to chronic blood loss Idiopathic chronic pancreatitis ([facility]) Past Medical History: Diagnosis Date Chronic heart failure with preserved ejection fraction ([facility]) 11/24/2022 Coronary artery disease involving pala coronary artery of pala heart without angina pectoris 05/02/2022 Duodenal ulcer 02/02/2024 Dyslipidemia 05/02/2022 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 05/07/2023 History of GI bleed 02/02/2024 Duodenal ulcer HIV positive ([facility]) Hypertension Idiopathic chronic pancreatitis ([facility]) 10/16/2024 Kidney disease, chronic, stage IV (GFR 15-29 ml/min) ([facility]) 05/02/2022 Left bundle branch block 05/02/2022 Old [place] (myocardial infarction) 05/02/2022 Overweight (BMI 25.0-29.9) 05/02/2022 Recurrent major depressive disorder, in full remission ([facility]) 05/05/2022 Systolic and diastolic CHF, chronic ([facility]) 05/02/2022 Type 2 diabetes mellitus with hemoglobin A1c goal of less than 8.0% ([facility]) 05/02/2022 Past Surgical History: Procedure Laterality Date AV ACCESS, AUTOGENOUS GRAFT Left 06/26/2024 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 performed by Benjamin Cartagena MD at OR [facility] COLONOSCOPY, DIAGNOSTIC (RECTUM) N/A 02/19/2023 poor prep/nodular mucosa ascending colon/hemorrhoids/biopsies show adenomatous polyps, mild active inflammation/recall 1 year/Colonoscopy/[facility] MARCUS CAT,W/O PUMP;5YR/OLD Right 07/28/2024 INSERT TUNNELED CENTRAL VENOUS CATHETER AGE 3 OR OLDER performed by Damion Barber MD at OR [facility] NONE REPLACE,COMP,MARCUS CENT ACC DEV Right 08/22/2024 REPLACEMENT COMPLETE TUNNELED CENTRAL CATHETER NO PORT performed by Damion Barber MD at OR [facility] Family History Problem Relation Name Age [...] pain, shortness of breath, palpitations, angina or IA Neurological: Negative for stroke, TIA, amaurosis fugax [...] Radial Art 0.32 cm 01/28/21 Carotid Duplex ([facility], report only): <50% B/L ICA stenosis 09/17/19 CT Abd/Pelvis ([facility], report only): No mention of [...] Value Date/Time [facility] 11.5 (H) 08/22/2024 03:34 PM The above clinical labs were reviewed by me on 07/19/2024 IMPRESSIONS: S/P Left RC AVF for HD on 06/26/[address] Cartagena. Delayed maturation of AVF ESRD, on HD via TDC Former smoker DM HFnEF CAD/prior IA/RCA stenting HTN HLD PUD HIV PLAN: Patient was counseled on concept of AVF, maturation times of AVF, failure rates of AVF to fully mature, nursing home failure rates of AVF, physiologic reality of [...] PA-C Section of Vascular [place] [address] [phone] I have reviewed the advanced practitioner's documentation [...] access surgery to ensure continued functionality. The [facility] Hemodialysis Access Booklet was given to the patient. Benjamin Cartagena MD Section of Vascular [place] [address] [phone] documented in this encounter Nursing Notes * Any Allen CMA - 10/25/2024 12:39 PM EST Reviewed the option of transferring scripts to [facility] pharmacy with patient and / or family. [...] 11/02/2024 1:30 PM EST Office Visit Orthopaedics [facility] [address] [place] [phone] Delgado Dunn MD [address] [place] [phone] 11/24/2024 Hospital Encounter [facility], OPERATING ROOM [facility] [address] [place] [facility] [place] [phone] Benjamin Cartagena MD [address] [place] [address] 11/29/2024 1:10 PM EDT Office Visit Vascular Surgery, [facility] [address] [place] [phone] Benjamin Cartagena MD [address] [place], [place] [id number] Scheduled Procedures Name Priority Associated Diagnoses Date/Ti [...] patient or by statute hierarchy) Care Teams Farm Assistant Relationship Specialty Start Date End Date Antonio Colon MD [address] [place] [address] PCP - General Family Medicine 02/12/22 documented as of this encounter"
--- OUTSIDE RECORDS SUMMARY | 2024-12-23 05:50 | External Medical Summary | Summary of Care ---
Author Name Unknown Organization [facility] Address [address] [place] [address] Phone [phone] Care Team Providers Care Dairy Equipment Specialist Name Role Phone Antonio Colon MD Primary Care Provider [phone] Reason for Visit * Reason Comments eRx-Medication Refill Encounter Details Date Type Department Care Team (Late st Contact Info) Description 10/20/2024 Refill [facility], [facility] [address] [facility] [address] Cristina Mota MD [address] [place] [facility] [place] [address] Coronary artery disease involving gakona coronary artery of gakona heart without angina pectoris Allergies No known active allergiesdocumented as of this encounter (statuses as of 10/20/2024) Medications Co Q 10 10 MG Oral [...] 90 Tablet 3 12/01/19 24 Active Pen Alden 32G X 4 MM Use as directed. Use to inject insulin 4 times daily E11.9 400 Each 3 12/02/19 24 Active FLUoxetine HCl 20 MG [...] 08/22/20 24 025 Active FreeStyle Carlos 2 [place] DeviceIndication s:Type 2 diabetes mellitus with hemoglobin A1c goal of less than 8.0% (HCC) USE DIRECTED. 1 Each 1 08/29/20 24 Active Metoprolol Succinate ER 25 MG Oral Tablet Extended Release 24 Hour (toPROL XL)Indications:C oronary artery disease involving gakona coronary artery of gakona heart without angina pectoris TAKE 1 TABLET BY MOUTH EVERY DAY IN THE MORNING 90 Tablet 3 10/08/19 25 Active Atorvastatin Calcium 40 MG Oral Tablet (Lipitor)Indicat ions:Dyslipidemi a, goal LDL below 70 TAKE 1 TABLET BY MOUTH EVERY DAY IN THE MORNING 90 Tablet 10/09/19 25 Active Sevelamer Carbonate 800 MG Oral Tablet (Renvela) TAKE 1 TABLET BY MOUTH THREE TIMES A DAY WITH MEALS 09/29/19 25 Active Prasugrel HCl 10 MG Oral Tablet (Effient)Indicat ions:Coronary artery disease involving gakona coronary artery of gak[place] heart without angina pectoris TAKE 1 TABLET BY MOUTH EVERY DAY IN THE MORNING 90 Tablet 3 10/20/19 25 Active Prasugrel HCl 10 MG Oral Tablet (Effient)Indicat ions:Coronary artery disease involving gakona coronary artery of [place] heart without angina pectoris TAKE 1 TABLET BY MOUTH EVERY DAY IN THE MORNING 90 Tablet 3 10/05/19 24 025 Discontinued Hospital, Clinic, or Other Facility Administered Medication Ordered Dose Route Frequency Start Date End Date Status Albuterol Sulfate (Proventil) (2.5 MG/3ML) 0.083% inhalation solution 2.5 mgIndications:ESRD on dialysis ([facility]),Pre-transplant evaluation for ESRD (end stage renal disease) 2.5 mg NEBULIZER PRN 03/24/2024 Acti ve Albuterol Sulfate (Proventil) (5 MG/ML) 0.5% *conc* inhalation solution 2.5 mgIndications:ESRD on dialysis ([facility]),Pre-transplant evaluation for ESRD (end stage renal disease) 2.5 mg NEBULIZER PRN 03/24/2024 Acti ve documented as of this encounter (statuses as of 10/20/2024) Active Problems Problem Noted Date Diagnosed Date Idiopathic chronic pancreatitis 10/16/2024 Iron deficiency anemia due to chronic blood loss 08/24/2024 HIV disease 08/23/2024 AVF (arteriovenous fistula) 07/19/2024 ESRD (end stage renal disease) on dialysis 02/01 Duodenal ulcer 02/02/2024 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 05/07/2023 Recurrent major depressive disorder, in full rem ission 05/05/2022 Overweight (BMI 25.0-29.9) 05/02/2022 Dyslipidemia 05/02/2022 Coronary artery disease invo lving gakona coronary artery of gakona heart without angina pectoris 05/02/2022 Type 2 diabetes mellitus wit h hemoglobin A1c goal of less than 8.0% 05/02/2022 Old [place] (myocardial infarction) 05/02/2022 Chronic systolic (congestive) heart failure 04/14 Left bundle branch block 05/02/2022 HTN, goal below 130/80 documented as of this encounter (statuses as of 10/20/2024) Resolved Problems Problem Noted Date Diagnosed Date [...] as of this encounter (statuses as of 10/20/2024) Immunizations Name Administration Dates Next Due COVID-19 [...] encounter Miscellaneous Notes * Telephone Encounter - Cristina Mota MD - 10/20/2024 10:13 AM ESTSigned Prescriptions: Disp Refills Prasugrel HCl 10 MG Oral Tablet (Effient) 90 Tab*3 Sig: TAKE 1 TABLET BY MOUTH EVERY DAY IN THE MORNING Authorizing Provider: CRISTINA MOTA * Telephone Encounter - Savita Ward LPN - 10/20/2024 9:18 AM ESTPending Prescriptions: Disp Refills Prasugrel HCl 10 MG Oral Tablet [Pharmacy *90 Tab*3 Sig: TAKE 1 TABLET BY MOUTH EVERY DAY IN THE MORNING * Telephone Encounter - Robel Aleman two - 10/20/2024 4:12 AM ESTPending Prescriptions: Disp Refills Prasugrel HCl 10 MG Oral Tablet [Pharmacy *90 Tab*3 Sig: TAKE 1 TABLET BY MOUTH EVERY DAY IN THE MORNING * Telephone Encounter - Robel Aleman - 10/20/2024 4:11 AM EST Did you pend patient's preferred pharmacy and medication before forwarding?yes Pharmacy: [id number] [address] [facility] Pending Prescriptions: Disp Refills Prasugrel HCl 10 MG Oral Tablet (Effient)*90 Tab*3 Sig: TAKE 1 TABLET BY MOUTH EVERY DAY IN THE MORNING Last Visit: 02/25/2024 (in office), Visit date not found (telemedicine) Next Visit: Visit date not found If no future appointments scheduled, and last appointment is greater than a year ago, please schedule patient for a follow-up appointment Last date the medication was ordered: 10/05/2023 Is this request for a controlled substance?No Urine Drug Screen:No results found for this or any previous visit. Patient Phone Numbers Labs: Lab Results Component Value Date/Time CREAT 3.7 (H) 08/26/2024 06:01 AM CREAT 3.37 (H) 10/02/2020 03:48 PM CREAT 0.9 06/17/2012 06:08 AM POTASSIUM 4.3 08/26/2024 06:01 AM POTASSIUM 3.9 10/02/2020 03:48 PM POTASSIUM 3.2 (L) 06/17/2012 06:08 AM TSH 2.18 08/22/2024 04:12 PM LDL 74 04/11/2024 10:31 AM LDL 64 06/15/2012 05:32 AM LDLCALC 46 07/20/2020 04:33 AM ALT 27 08/23/2024 06:25 AM ALT 66 (H) 10/02/2020 03:48 PM ALT 41 06/17/2012 06:08 AM HGBA1C 11.5 (H) 08/22/2024 03:34 PM HGBA1C 7.4 (H) 10/02/2020 03:48 PM documented in this encounter Plan of Treatment Upcoming Encounters Date Type Department Care Team (Late st Contact Info) Description 10/25/2024 12:30 PM EST Office Visit Vascular Surgery, [facility] [address] [facility] [place] [address] Benjamin Cartagena MD [address] [facility] [place], [place] [address] 11/02/2024 1:30 PM EST Office Visit Orthopaedics [facility] [address] [place] [phone] [...] Visit Diagnoses Diagnosis Coronary artery disease involving gakona coronary artery of gakona heart without angina pectoris documented in this [...] patient or by statute hierarchy) Care Teams Dairy Equipment Specialist Relationship Specialty Start Date End Date Antonio Colon MD [address] [place] [address] PCP - General Family Medicine 02/12/22 documented as of this encounter
--- OUTSIDE RECORDS SUMMARY | 2024-12-23 05:50 | External Medical Summary | Summary of Care ---
Author Name Unknown Organization [facility] Address [address] [place] [address] Phone [phone] Care Team Providers Care Talcer Name Role Phone Antonio Colon MD Primary Care Provider [phone] Reason for Visit * Reason Comments Follow Up Pt here for follow u p and hospital discharge Encounter Details Date Type Department Care Team (Late st Contact Info) Description 10/16/2024 12:20 PM EST Office Visit [facility] [address] [facility] [address] Antonio Colon [facility] [address] [facility] [address] Type 2 diabetes mellitus with hemoglobin A1c goal of less than 8.0% ([facility])*; ESRD (end stage renal disease) on dialysis (HCC); Chronic systolic (congestive) heart failure (HCC); HIV disease ([facility]); Recurrent major depressive disorder, in full remission ([facility]); Dyslipidemia; Old [place] (myocardial infarction); HTN, goal below 130/80; Coronary artery disease involving chickahominy indians-eastern division coronary artery of chickahominy indians-eastern division heart without angina pectoris; Overweight (BMI 25.0-29.9) Allergies No known active allergiesdocumented as of this encounter (statuses as of 10/17/2024) Medications Co Q 10 10 MG Oral [...] daily. 90 Tablet 3 4 Active Pen [place] 32G X 4 MM Use as directed. [...] 25 Active FreeStyle Carlos 2 [place] DeviceIndications :Type 2 diabetes mellitus with hemoglobin A1c goal of less than 8.0% ([facility]) USE DIRECTED. 1 Each 1 4 Active [...] TIMES A DAY WITH MEALS 5 Active Hospital, Clinic, or Other Facility Administered Medication Ordered Dose Route Frequency Start Date End Date Status Albuterol Sulfate (Proventil) (2.5 MG/3ML) 0.083% inhalation solution 2.5 mgIndications:ESRD on dialysis ([facility]),Pre-transplant evaluation for ESRD (end stage renal disease) 2.5 mg NEBULIZER PRN 03/24/2024 Acti ve Albuterol Sulfate (Proventil) (5 MG/ML) 0.5% *conc* inhalation solution 2.5 mgIndications:ESRD on dialysis ([facility]),Pre-transplant evaluation for ESRD (end stage renal disease) 2.5 mg NEBULIZER PRN 03/24/2024 Acti ve documented as of this encounter (statuses as of 10/17/2024) Active Problems Problem Noted Date Diagnosed Date [...] as of this encounter (statuses as of 10/17/2024) Resolved Problems Problem Noted Date Diagnosed Date [...] as of this encounter (statuses as of 10/17/2024) Immunizations Name Administration Dates Next Due COVID-19 [...] Sign Reading Time Taken Comments Blood Pressure 122/78 10/16/2024 12:33 PM EST Pulse 68 10/16/2024 12:33 PM EST Temperature 36.9 °C (98.5 °F) 10/16/2024 12:[address] Respiratory Rate 18 10/16/2024 12:33 PM EST Oxygen Saturation - - Inhaled Oxygen Concentration - - Weight - - Height 175.3 cm (5' 9") 10/16/2024 12:33 PM EST Body Mass Index - - documented in this encounter Functional Status * [...] Progress Notes * Antonio Colon MD - 10/16/2024 1:48 PM EST SUBJECTIVE: Tad Silvestre is a 69 year old male. Chief Complaint Patient presents with Follow Up Pt here for follow up and hospital discharge HPI: Allan is a very pleasant 69 year old male with multiple medical comorbidities. He is quite stable at this moment and actually went to visit [facility] yesterday. He was having issues with his AVF and recentlyhad a hospital visit earlier this month where he was seen by vascular. He has follow up scheduled. He feels great overall, other than being a bit sluggish and tired. 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 Multi-Day Oral Tablet Take by mouth 1 Tablet in the morning. Vitamin D-3 25 MCG (1000 UT) Oral Capsule Take 1 Capsule by mouth in the morning. Prasugrel HCl 10 MG Oral Tablet (Effient) [...] UNITS IN THE MORNING. 30 mL 1 Metoprolol Succinate ER 25 [...] MOUTH THREE TIMES A DAY WITH MEALS Co Q 10 10 MG Oral Capsule Take by mouth 1 Caplet Dosing Unit daily . Pen [place] 32G X 4 MM Use as directed. Use to inject insulin 4 times daily E11.9 400 Each 3 FreeStyle Carlos 2 Sensor Use as directed. Use one sensor every 14 days for blood sugar E10.65 1 Each 11 Juluca 50-25 MG Oral Tablet (Dolutegravir-Rilpivirine) Take 1 Tablet by mouth daily. 30 Tablet 11 FreeStyle Carlos 2 [place] Device USE DIRECTED. 1 Each 1 Current Facility-Administered Medications Medication Dose Route Frequency Provider Last Rate Last Admin Albuterol Sulfate (Proventil) (2.5 MG/3ML) 0.083% inhalation solution 2.5 mg 2.5 mg Nebulizer PRN Albuterol Sulfate (Proventil) (5 MG/ML) 0.5% *conc* inhalation solution 2.5 mg 2.5 mg Nebulizer PRN2.5 mg at 04/27/24 1108 Allergy: Review of patient's allergies indicates: No Known Allergies OBJECTIVE: BP 122/78 | Pulse 68 | Temp 98.5 °F (36.9 °C) | Resp 18 | Ht 5' 9" (1.753 m) | BMI 25.40 kg/m² |BSA 1.95 m² Gen: aao x 3, nad Lungs: ctab Heart: rrr, no mrg Ext: AVF + thrill Skin: no rashes ASSESSMENT AND PLAN: (E11.9) Type 2 diabetes mellitus with hemoglobin A1c goal of less than 8.0% (HCC) (primary encounter diagnosis) Plan: stable, continue mgmt (N18.6, Z99.2) ESRD (end stage renal disease) on dialysis (HCC) Plan: stable (I50.22) Chronic systolic (congestive) heart failure (HCC) Plan: stable (B20) HIV disease (HCC) Plan: stable (F33.42) Recurrent major depressive disorder, in full remission (HCC) Plan: stable (E78.5) Dyslipidemia Plan: stable (I25.2) Old [place] (myocardial infarction) Plan: continue medical mgmt (I10) HTN, goal below 130/80 Plan: @ goal (I25.10) Coronary artery disease involving chickahominy indians-eastern division coronary artery of chickahominy indians-eastern division heart without angina pectoris Plan: continue medical mgmt (E66.3) Overweight (BMI 25.0-29.9) Plan: very healthy weight given his demographics Follow up as needed. No other complaints were offered at this time. Antonio Colon MD documented in this encounter Nursing Notes * ySdni Mendes LPN - 10/16/2024 12:33 PM EST The patient has been properly identified by confirmation of name and date of . Chief Complaint Patient presents with Follow Up Pt here for follow up and hospital discharge documented in this encounter Plan of Treatment Upcoming Encounters Date Type Department Care Team (Late st Contact Info) Description 10/25/2024 12:30 PM EST Office Visit Vascular Surgery, [facility] [address] [facility] [place] [address] Benjamin Cartagena MD [address] [place] [address] 11/02/2024 1:30 PM EST Office Visit Orthopaedics [facility] [address] [place] [phone] [...] 11/27/2020, Additional history exists Colonoscopy 01/06/2025 01/07/2024, 06/0 05/2023, 02/19/2023 Colorectal Cancer Screening 01/06/2025 Diabetic [...] of less than 8.0% (HCC)- Primary ESRD (end stage renal disease) on dialysis (HCC) End stage renal disease Chronic systolic (congestive) heart failure (HCC) HIV disease (HCC) Human immunodeficiency virus [HIV] disease Recurrent major depressive disorder, in full remission (HCC) Dyslipidemia Other and unspecified hyperlipidemia Old [place] (myocardial infarction) Old myocardial infarction HTN, goal below 130/80 Unspecified essential hypertension Coronary artery disease involving chickahominy indians-eastern division coronary artery of chickahominy indians-eastern division heart without angina pectoris Overweight (BMI 25.0-29.9) Overweight documented in this encounter Advance Directives * [...] patient or by statute hierarchy) Care Teams Talcer Relationship Specialty Start Date End Date Antonio Colon MD [address] [place] [address] PCP - General Family Medicine 02/12/22 documented as of this encounter
--- OUTSIDE RECORDS SUMMARY | 2024-12-23 05:50 | External Medical Summary | Summary of Care ---
Author Name Unknown Organization [facility] Address [address] [place] [address] Phone [phone] Care Team Providers Care Disbursing Officer Name Role Phone Antonio Colon MD Primary Care Provider [phone] Reason for Visit * Reason Comments Follow Up Pt here for follow u p and hospital discharge Encounter Details Date Type Department Care Team (Late st Contact Info) Description 10/16/2024 12:20 PM EST Office Visit Family Practice [facility] [address] [facility] [address] Antonio Colon MD [address] [facility] [address] Type 2 diabetes mellitus with hemoglobin A1c goal of less than 8.0% ([facility])*; ESRD (end stage renal disease) on dialysis (HCC); Chronic systolic (congestive) heart failure (HCC); HIV disease ([facility]); Recurrent major depressive disorder, in full remission ([facility]); Dyslipidemia; Old NM (myocardial infarction); HTN, goal below 130/80; Coronary artery disease involving [place] coronary artery of [place] heart without angina pectoris; Overweight (BMI 25.0-29.9) [...] Oral Tablet (Effient)Indicati ons:Coronary artery disease involving [place] coronary artery of [place] heart without angina pectoris TAKE 1 TABLET BY MOUTH EVERY DAY IN THE MORNING 90 Tablet 3 4 Active Juluca 50-25 MG Oral Tablet Take 1 Tablet by mouth daily. 90 Tablet 3 4 Active Pen [place] 32G X 4 MM Use as directed. [...] 4 08/17/20 25 Active FreeStyle Carlos 2 [place] DeviceIndications :Type 2 diabetes mellitus with hemoglobin A1c goal of less than 8.0% ([facility]) USE DIRECTED. 1 Each 1 4 Active Metoprolol Succinate ER 25 MG Oral Tablet Extended Release 24 Hour (toPROL XL)Indications:Co ronary artery disease involving [place] coronary artery of [place] heart without angina pectoris TAKE 1 [...] inhalation solution 2.5 mgIndications:ESRD on dialysis ([facility]),Pre-transplant evaluation for ESRD (end stage renal disease) 2.5 mg NEBULIZER PRN 03/24/2024 Acti ve Albuterol Sulfate (Proventil) (5 MG/ML) 0.5% *conc* inhalation solution 2.5 mgIndications:ESRD on dialysis ([facility]),Pre-transplant evaluation for ESRD (end stage renal disease) [...] Dyslipidemia 05/02/2022 Coronary artery disease invo lving [place] coronary artery of [place] heart without angina pectoris 05/02/2022 Type 2 diabetes mellitus wit h hemoglobin A1c goal of less than 8.0% 05/02/2022 Old [place] (myocardial infarction) 05/02/2022 Chronic [...] this moment and actually went to visit [facility] yesterday. He was having issues with his AVF and recentlyhad a hospital visit earlier this month where he was seen by vascular. He has follow up scheduled. He feels great overall, other than being a bit sluggish and tired. Patient Active Problem List Diagnosis HTN, goal below 130/80 Overweight (BMI 25.0-29.9) Dyslipidemia Coronary artery disease involving [place] coronary artery of [place] heart without angina pectoris Type 2 diabetes mellitus with hemoglobin A1c goal of less than 8.0% (HCC) Old [place] (myocardial infarction) Chronic systolic (congestive) heart failure [...] 1 Caplet Dosing Unit daily . Pen [place] 32G X 4 MM Use as directed. Use to inject insulin 4 times daily E11.9 400 Each 3 FreeStyle Carlos 2 Sensor Use as directed. Use one sensor every 14 days for blood sugar E10.65 1 Each 11 Juluca 50-25 MG Oral Tablet (Dolutegravir-Rilpivirine) Take 1 Tablet by mouth daily. 30 Tablet 11 FreeStyle Carlos 2 [place] Device USE DIRECTED. 1 Each 1 Current [...] stable (E78.5) Dyslipidemia Plan: stable (I25.2) Old [place] (myocardial infarction) Plan: continue medical mgmt (I10) HTN, goal below 130/80 Plan: @ goal (I25.10) Coronary artery disease involving [place] coronary artery of [place] heart without angina pectoris Plan: continue medical mgmt (E66.3) Overweight (BMI 25.0-29.9) Plan: very healthy weight given his demographics Follow up as needed. No other complaints were offered at this time. Antonio Colon MD documented in this encounter Nursing Notes * Sydni Mendes LPN - 10/16/2024 12:33 PM EST The patient has been properly identified by confirmation of name and date of . Chief Complaint Patient presents with Follow Up Pt here for follow up and hospital discharge documented in this encounter Plan of Treatment Upcoming Encounters Date Type Department Care Team (Late st Contact Info) Description 10/25/2024 12:30 PM EST Office Visit Vascular Surgery, [facility] [address] [facility] [place] [address] Benjamin Cartagena MD [address] [place] [address] 11/02/2024 1:30 PM EST Office Visit Orthopaedics [facility] [address] [place] [...] (HCC) Dyslipidemia Other and unspecified hyperlipidemia Old [place] (myocardial infarction) Old myocardial infarction HTN, goal below 130/80 Unspecified essential hypertension Coronary artery disease involving [place] coronary artery of [place] heart without angina pectoris Overweight (BMI 25.0-29.9) [...] Relationshi p Communication Lorin Silvestre [facility] Health Care Repr esentative (appointed verbally by patient or by statute hierarchy) Care Teams Disbursing Officer Relationship Specialty Start Date End Date Antonio Colon MD [address] [place] [address] PCP - General Family Medicine 02/12/22 documented as of this encounter
--- OUTSIDE RECORDS SUMMARY | 2024-12-23 05:50 | External Medical Summary | Summary of Care ---
Author Name Unknown Organization [facility] Address [address] [place] [address] Phone [phone] Care Team Providers Care Dermatology Nurse Name Role Phone Antonio Colon MD Primary Care Provider [phone] Encounter Details Date Type Department Care Team (Late st Contact Info) Description 10/02/2024 Population Health External Data Unspecified Department Allergies No known active allergiesdocumented as of this encounter (statuses as of 10/02/2024) Medications Co Q 10 10 MG Oral [...] Hour (toPROL XL)Indications:Co ronary artery disease involving [place] coronary artery of [place] heart without angina pectoris TAKE 1 TABLET BY MOUTH EVERY DAY IN THE MORNING 90 Tablet 3 4 Active Prasugrel HCl 10 MG Oral Tablet (Effient)Indicati ons:Coronary artery disease involving [place] coronary artery of [place] heart without angina pectoris TAKE 1 TABLET BY MOUTH EVERY DAY IN THE MORNING 90 Tablet 3 4 Active Atorvastatin Calcium 40 MG Oral Tablet (Lipitor)Indicati ons:Dyslipidemia, goal LDL below 70 TAKE 1 TABLET BY MOUTH EVERY DAY IN THE MORNING 90 Tablet 3 4 Active Juluca 50-25 MG Oral Tablet Take 1 Tablet by mouth daily. 90 Tablet 3 4 Active Pen [place] 32G X 4 MM Use as directed. [...] 4 08/17/20 25 Active FreeStyle Carlos 2 [place] DeviceIndications :Type 2 diabetes mellitus with hemoglobin A1c goal of less than 8.0% (HCC) USE DIRECTED. 1 Each 1 Active Hospital, [...] as of this encounter (statuses as of 10/02/2024) Active Problems Problem Noted Date Diagnosed Date [...] Dyslipidemia 05/02/2022 Coronary artery disease invo lving [place] coronary artery of [place] heart without angina pectoris 05/02/2022 Type 2 diabetes mellitus wit h hemoglobin A1c goal of less than 8.0% 05/02/2022 Old [place] (myocardial infarction) 05/02/2022 Chronic systolic (congestive) heart failure 04/14 Left bundle branch block 05/02/2022 HTN, goal below 130/80 HIV positive documented as of this encounter (statuses as of 10/02/2024) Resolved Problems Problem Noted Date Diagnosed Date [...] as of this encounter (statuses as of 10/02/2024) Immunizations Name Administration Dates Next Due COVID-19 mRNA, LNP-s, No Pre serve, 2-Dose Series (Moderna) 11/27/2020,10/24/2020 COVID-19, MRNA-LNP, PF, 50 M CG/0.5 mL, 12 YRS AND ABOVE, IM (MODERNA-Spikevax) 08/05/2021 Covid-19, Mrna, Lnp-s, Pf, B ivalent, 30 Mcg, IM, 12 yrs and above (Frugalo) 09/09/2022 Hepatitis B, 20+ yrs 08/25/2017 Meningococcal [...] No 09/01/2024 Does the household have a [facility] source of income? (Household - for ages [...] Entry Date Author No 08/22/2024 4:07 PM Anika Dobbs RN documented in this encounter Plan of Treatment Upcoming Encounters Date Type Department Care Team (Late st Contact Info) Description 10/13/2024 9:00 AM EST Office Visit Family Practice [facility] [address] [place] [address] Antonio Colon MD 132 [place] [address] 10/25/2024 12:30 PM EST Office Visit Vascular Surgery, [facility] 132 [place] [address] Benjamin Cartagena MD [address] [place] [address] Scheduled Procedures Name Priority Associated Diagnoses Date/Ti [...] 02/02/2024, Additional history exists TSH 08/22/2025 08/22/2024, 2 10/2023, 02/02/2024, Additional history exists Depression Monitoring 09/01/2025 [...] Healthcare Agent Relationshi p Communication Lorin Konrad [facility] Health Care Repr esentative (appointed verbally by patient or by statute hierarchy) Care Teams Dermatology Nurse Relationship Specialty Start Date End Date Antonio Colon MD [address] [place] [address] PCP - General Family Medicine 02/12/22 documented as of this encounter
--- OUTSIDE RECORDS SUMMARY | 2024-12-23 05:50 | External Medical Summary | Continuity of Care Document ---
Author Name Unknown Organization [facility] Address [address] [place], [place] [id number] Care Team Providers Care Organisational Psychologist Name Role Phone Antonio Colon Primary Care Physician [phone] [id number] Date(s): 09/29/24 - 09/29/24 [facility] [address] [place] [address] [facility] [address] [place] [address] [phone] Encounter Diagnosis End stage renal disease on dialysis(Discharge Diagnosis) - 09/29/24 Peripheral arterial disease(Discharge Diagnosis) - 09/29/24 Discharge Disposition: Home or Self Care Attending Physician: ANTHONY Hawkins Lynn Allergies, Adverse Reactions, Alerts No Known Allergies Assessment and Plan Extracted from: Title:Clinical Document Author:ANTHONY Hawkins Lynn Date:09/29/24 [facility] OUTPATIENT NOTE Name: KULDIP WATSON Patient Number: [id number] : 1955 Date of Service: 09/29/2024 Chief Complaint: _Follow-up to discuss left arm fistula HPI: _Mr. Watson is an elderly male who presents to Dr. Fuller's vascular surgery clinic today for an office appointment to discuss his recent left arm AV fistula ultrasound which was performed in this office. Patient stated that he has a left radiocephalic AV fistula which was created at [facility] about 4 months ago, but it has not been maturing as expected. Dr. Fuller and I evaluated the patient at [facility] during her recent admission, and determined that ultrasound evaluation would be best. He presents today to discuss those findings. He continues to undergo hemodialysis through his right IJ PermCath, which was replaced by Dr. Fuller about a week ago. His left radiocephalic AV fistula ultrasound performed prior to today's appointment demonstrates a patent fistula, however, there is a severe stenosis of the radial artery proximal to the anastomosis. Flow volume is not adequate. Current Home Meds: (Last Updated 09/29 10:09) FLUoxetine (FLUoxetine 20 mg oral capsule) TAKE 1 CAPSULE BY MOUTH EVERY DAY NIFEdipine (NIFEdipine (Eqv-Procardia XL) 30 mg oral tablet, extended release) TAKE 1 TABLET BY MOUTH IN THE MORNING. IN THE MORNING.. atorvastatin (atorvastatin 40 mg oral tablet) TAKE 1 TABLET BY MOUTH EVERY DAY IN THE MORNING dolutegravir-rilpivirine (Juluca 50 mg-25 mg oral tablet) TAKE 1 TABLET BY MOUTH EVERY DAY insulin aspart (Fiasp FlexTouch 100 units/mL injectable solution) INJECT 10 UNITS UNDER THE SKIN 3 TIMES A DAY, IN THE MORNING, AT NOON AND BEFORE BEDTIME WITH MEALS insulin glargine (Basaglar KwikPen 100 units/mL subcutaneous solution) INJECT UNDER THE SKIN 22 UNITS IN THE MORNING. levothyroxine (levothyroxine 25 mcg (0.025 mg) oral tablet) TAKE 1 TABLET BY MOUTH DAILY FIRST THING IN THE MORNING. metoprolol (Metoprolol Succinate ER 25 mg oral tablet, extended release) TAKE 1 TABLET BY MOUTH EVERY DAY IN THE MORNING pantoprazole (pantoprazole 40 mg oral delayed release tablet) TAKE 1 TABLET BY MOUTH EVERY DAY IN THE MORNING prasugrel (prasugrel 10 mg oral tablet) TAKE 1 TABLET BY MOUTH EVERY DAY IN THE MORNING sevelamer (sevelamer carbonate 800 mg oral tablet) TAKE 1 TABLET BY MOUTH THREE TIMES A DAY WITH MEALS unlisted medication (FREESTYLE YENI 2 SENSOR) USE DIRECTED. USE ONE SENSOR EVERY 14 DAYS FOR BLOOD SUGAR E10.65 Allergies and Sensitivities: NKA Past Medical History: Problems: Peripheral arterial disease End stage renal disease on dialysis OBJECTIVE Vitals: Last Updated 09/29/24 10:23 Date Temp BP Location Pulse RR SpO2 Pain 09/29/24 0 09/29/24 100/58 Right Arm 84 98 Vital Signs are the last 3 documented. No Orthostatic Data Available No Height/Weight Data Available Physical Exam Constitutional: In general patient is a healthy-appearing well-nourished well-developed elderly male no distress. Is alert and oriented without any focal deficits. His left arm radiocephalic AV fistula does have a thrill and bruit over it this is more easily felt near the anastomosis and nearly impossible to feel by the mid forearm. He has no swelling. His right chest PermCath exit site dressing was changed today as well as sutures were removed. This was done sterilely. ASSESSMENT: _ PLAN: _ 1 ) _end-stage renal disease on hemodialysis Patient's right IJ PermCath exit site is healing well. There is no sign of infection and sutures removed without difficulty today. According to the patient his PermCath continues to function well. His left arm radiocephalic AV fistula is not matured at 4 months since creation, and his ultrasound indicates poor flow volume, with a stenosis of his radial artery proximal to the anastomosis. In an effort to improve flow through the fistula, we recommend that patient undergo a left arm arteriogram with intervention. The procedure risks benefits and alternatives were discussed with the patient by myself at Dr. Fuller's request. Patient expresses understanding and agreement to proceed. 2 ) _peripheral arterial disease Patient does have peripheral arterial disease in the left arm, with a stenosis of his radial artery proximal to his AVF anastomosis. This is likely contributing to the nonmaturation of his fistula. We therefore recommended that he undergo a left arm arteriogram. See above. Thank you for letting us participate in the care of this patient. I have personally spent _25__ minutes performing ibop-lp-[id number] and hks-zgcs-ra-face activities on this date of service. Time does not include separately reported services. Activities Include: _x_ review of the medical record x__ obtaining a history _x_ physical exam/evaluation __ review labs _x_ review radiology reports _x_ counseling/educating patient/family/caregiver __ discussion/referral to other healthcare professional x__ documenting care in the medical record __ independent interpretation of results _x_ communication of results to patient/family/caregiver _x_ coordination of care Medications atorvastatin 40 mg oral tablet TAKE 1 TABLET BY MOUTH EVERY DAY IN THE MORNING Start Date: 09/29/24 Status: Ordered Basaglar KwikPen 100 units/mL subcutaneous solution INJECT UNDER THE SKIN 22 UNITS IN THE MORNING. Start Date: 09/29/24 Status: Ordered Fiasp FlexTouch 100 units/mL injectable solution INJECT 10 UNITS UNDER THE SKIN 3 TIMES A DAY, IN THE MORNING, AT NOON AND BEFORE BEDTIME WITH MEALS Start Date: 09/29/24 Status: Ordered FLUoxetine 20 mg oral capsule TAKE 1 CAPSULE BY MOUTH EVERY DAY Start Date: 09/29/24 Status: Ordered FREESTYLE YENI 2 SENSOR FREESTYLE YENI 2 SENSOR, USE DIRECTED. USE ONE SENSOR EVERY 14 DAYS FOR BLOOD SUGAR E10.65 Start Date: 09/29/24 Status: Ordered Juluca 50 mg-25 mg oral tablet TAKE 1 TABLET BY MOUTH EVERY DAY Start Date: 09/29/24 Status: Ordered levothyroxine 25 mcg (0.025 mg) oral tablet TAKE 1 TABLET BY MOUTH DAILY FIRST THING IN THE MORNING. Start Date: 09/29/24 Status: Ordered Metoprolol Succinate ER 25 mg oral tablet, extended release TAKE 1 TABLET BY MOUTH EVERY DAY IN THE MORNING Start Date: 09/29/24 Status: Ordered NIFEdipine (Eqv-Procardia XL) 30 mg oral tablet, extended release TAKE 1 TABLET BY MOUTH IN THE MORNING. IN THE MORNING.. Start Date: 09/29/24 Status: Ordered pantoprazole 40 mg oral delayed release tablet TAKE 1 TABLET BY MOUTH EVERY DAY IN THE MORNING Start Date: 09/29/24 Status: Ordered prasugrel 10 mg oral tablet TAKE 1 TABLET BY MOUTH EVERY DAY IN THE MORNING Start Date: 09/29/24 Status: Ordered sevelamer carbonate 800 mg oral tablet TAKE 1 TABLET BY MOUTH THREE TIMES A DAY WITH MEALS Start Date: 09/29/24 Status: Ordered Mental Status 09/29/24 Barriers to Learning one year None evide nt Mandatory Health Literacy Documentation Yes Health Literacy Communication Barriers N ever Primary Language Nigerian Problem List Condition Confirmation Course Effective Dates Status Health St atus Informant End stage renal disease on dialysis Confirmed Active Peripheral arterial disease Confirmed Active Diagnosis Diagnosis Type Effective Dates Health Status Clinical Service Informant End stage renal disease on dialysis Discharge Diagnosis 09/29/24 Peripheral arterial disease Discharge Diagnosis 09/29/24 Vital Signs Most recent to oldest [Reference Range]: 1 Heart Rate 84 bpm (09/29/24 10:15 AM) Blood Pressure 100/58mmHg (09/29/24 10:15 AM) Cuff Pulse Pressure 42 mmHg (09/29/24 10:15 AM) BP Location # 1 Right Arm (09/29/24 10:15 AM) Social History Social History Type Response Smoking Status Never smoked cigaret [place]wyn Sex Sex Representation Male (finding) [facility] Outpt Note * ANTHONY Hawkins Lynn: PERFORM Event Display: [facility] Outpt Note Authored Date: [id number] I OUTPATIENT NOTE Name: KULDIP WATSON Patient Number: [id number] : 1955 Date of Service: 09/29/2024 Chief Complaint: _Follow-up to discuss left arm fistula HPI: _Mr. Watson is an elderly male who presents to Dr. Fuller's vascular surgery clinic today for anoffice appointment to discuss his recent left arm AV fistula ultrasound which was performed in thisoffice. Patient stated that he has a left radiocephalic AV fistula which was created at [facility] about 4 months ago, but it has not been maturing as expected. Dr. Fuller and I evaluated the patient at [facility] during her recent admission, and determined that ultrasoundevaluation would be best. He presents today to discuss those findings. He continues to undergo hemodialysis through his right IJ PermCath, which was replaced by Dr. Fuller about a week ago. His left radiocephalic AV fistula ultrasound performed prior to today's appointment demonstrates a patent fistula, however, there is a severe stenosis of the radial artery proximal to the anastomosis. Flow volume is not adequate. Current Home Meds: (Last Updated 09/29 10:09) FLUoxetine (FLUoxetine 20 mg oral capsule) TAKE 1 CAPSULE BY MOUTH EVERY DAY NIFEdipine (NIFEdipine (Eqv-Procardia XL) 30 mg oral tablet, extended release) TAKE 1 TABLET BY MOUTH IN THE MORNING. IN THE MORNING.. atorvastatin (atorvastatin 40 mg oral tablet) TAKE 1 TABLET BY MOUTH EVERY DAY IN THE MORNING dolutegravir-rilpivirine (Juluca 50 mg-25 mg oral tablet) TAKE 1 TABLET BY MOUTH EVERY DAY insulin aspart (Fiasp FlexTouch 100 units/mL injectable solution) INJECT 10 UNITS UNDER THE SKIN 3 TIMES A DAY, IN THE MORNING, AT NOON AND BEFORE BEDTIME WITH MEALS insulin glargine (Basaglar KwikPen 100 units/mL subcutaneous solution) INJECT UNDER THE SKIN 22 UNITS IN THE MORNING. levothyroxine (levothyroxine 25 mcg (0.025 mg) oral tablet) TAKE 1 TABLET BY MOUTH DAILY FIRST THING IN THE MORNING. metoprolol (Metoprolol Succinate ER 25 mg oral tablet, extended release) TAKE 1 TABLET BY MOUTH EVERY DAY IN THE MORNING pantoprazole (pantoprazole 40 mg oral delayed release tablet) TAKE 1 TABLET BY MOUTH EVERY DAY IN THE MORNING prasugrel (prasugrel 10 mg oral tablet) TAKE 1 TABLET BY MOUTH EVERY DAY IN THE MORNING sevelamer (sevelamer carbonate 800 mg oral tablet) TAKE 1 TABLET BY MOUTH THREE TIMES A DAY WITH MEALS unlisted medication (FREESTYLE YENI 2 SENSOR) USE DIRECTED. USE ONE SENSOR EVERY 14 DAYS FOR BLOOD SUGAR E10.65 Allergies and Sensitivities: NKA Past Medical History: Problems: Peripheral arterial disease End stage renal disease on dialysis OBJECTIVE Vitals: Last Updated 09/29/24 10:23 Date Temp BP Location Pulse RR SpO2 Pain 09/29/24 0 09/29/24 100/58 Right Arm 84 98 Vital Signs are the last 3 documented. No Orthostatic Data Available No Height/Weight Data Available Physical Exam Constitutional: In general patient is a healthy-appearing well-nourished well- developed elderly male no distress. Is alert and oriented without any focal deficits. His left arm radiocephalic AV fistula does have a thrill and bruit over it this is more easily felt near the anastomosis and nearly impossible to feel by the mid forearm. He has no swelling. His right chest PermCath exit site dressing was changed today as well as sutures were removed. This was done sterilely. ASSESSMENT: _ PLAN: _ 1 ) _end-stage renal disease on hemodialysis Patient's right IJ PermCath exit site is healing well. There is no sign of infection and sutures removed without difficulty today. According to the patient his PermCath continues to function well. His left arm radiocephalic AV fistula is not matured at 4 months since creation, and his ultrasound indicates poor flow volume, with a stenosis of his radial artery proximal to the anastomosis. In an effort to improve flow through the fistula, we recommend that patient undergo a left arm arteriogram with intervention. The procedure risks benefits and alternatives were discussed with the patient by myself at Dr. Fuller's request. Patient expresses understanding and agreement to proceed. 2 ) _peripheral arterial disease Patient does have peripheral arterial disease in the left arm, with a stenosis of his radial arteryproximal to his AVF anastomosis. This is likely contributing to the nonmaturation of his fistula. We therefore recommended that he undergo a left arm arteriogram. See above. Thank you for letting us participate in the care of this patient. I have personally spent _25__ minutes performing [id number] and yxt-wbix-mk-face activities on this date of service. Time does not include separately reported services. Activities Include: _x_ review of the medical record x__ obtaining a history _x_ physical exam/evaluation __ review labs _x_ review radiology reports _x_ counseling/educating patient/family/caregiver __ discussion/referral to other healthcare professional x__ documenting care in the medical record __ independent interpretation of results _x_ communication of results to patient/family/caregiver _x_ coordination of care Electronic Signature on File CC: Tesfaye Morris MD [address] [place] [id number] * CC: Antonio Colon MD [facility] [address] [facility] [address] * Electronically Reviewed/Signed by: Izabella Hawkins PA-C Author Signature Dt/Tm:09/29/2024 11:[address] [facility] [place] 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
[2024-12-23 06:47] LABS: Basophils # (auto) 0.02 K/uL (0.00-0.20); Basophils % (auto) 0.4 %; Eosinophils # (auto) 0.16 K/uL (0.00-0.50); Eosinophils % (auto) 3.3 %; Hematocrit (blood only) 37.4 % (42.0-52.0); Hemoglobin 12.2 g/dl (14.0-18.0); Immature Granulocytes # (auto) 0.02 K/uL (0.01-0.20); Immature Granulocytes % (auto) 0.4 %; Lymphocytes # (auto) 1.13 K/uL (1.20-3.40); Lymphocytes % (auto) 23.3 %; Mean Corpuscular Hemoglobin 27.9 pg (25.0-34.0); Mean Corpuscular Hgb Conc 32.6 g/dL (32.0-36.0); Mean Corpuscular Volume 85.4 fL (80.0-100.0); Mean Platelet Volume 9.2 fL (9.4-12.4); Monocytes # (auto) 0.45 K/uL (0.11-0.59); Monocytes % (auto) 9.3 %; Neutrophils # (auto) 3.07 K/uL (1.40-6.50); Neutrophils % (auto) 63.3 %; Platelet Count 171 K/uL (130-400); RDW Coefficient of Variation 13.9 % (11.5-14.5); RDW Standard Deviation 43.5 fL (36.4-46.3); Red Blood Count 4.38 M/uL (4.70-6.10); White Blood Count 4.85 K/ul (4.8-10.8)
[2024-12-23 07:07] LABS: Albumin Globulin Ratio 1.4 (0.9-2); Albumin Level 4.2 gm/dl (3.4-5.0); BUN Creatinine Ratio 11.4 (10-20); Bilirubin,Total 0.4 mg/dl (0.2-1.0); Calcium 9.3 mg/dl (8.6-10.3); Creatinine Clr Calc Pharmacy 19.3 ml/min; Globulin 2.9 gm/dl (2.5-4.0); Potassium 4.9 mmol/L (3.5-5.1); Total Protein 7.1 gm/dl (6.0-8.3)
--- NOTE | 2024-12-23 07:23 | Emergency Department Note ---
History of Present Illness General Chief complaint: Infection, Wound Stated complaint: INFECTION Time Seen by Provider: 12/23/24 06:33 History of Present Illness Provider complaint: Right sided chest wall wound Onset (ago): day(s) 3 Maximum Pain Intensity: 7 69-year-old male in stage renal disease Wednesday last dialysis done on presents emergency department for right-sided chest wall wound. Patient reports he thinks he has an abscess growing adjacent to his hemodialysis port. He reports no fevers. He reports there was some mild drainage from the wound. He states he went to dialysis this morning but they would not dialyze him because of the wound. Home Medications Medication Instructions Recorded Confirmed Type atorvastatin 40 mg tablet 40 mg PO QAM 01/06/22 12/23/24 History dolutegravir 50 mg-rilpivirine 25 1 tab PO QAM 01/06/22 12/23/24 History mg tablet (Juluca) fluoxetine 20 mg capsule 20 mg PO QAM 01/06/22 12/23/24 History multivitamin 1 tab PO QAM 01/06/22 12/23/24 History aspirin 81 mg tablet,delayed 81 mg PO QAM 12/30/23 12/23/24 History release cholecalciferol (vitamin D3) 25 25 mcg PO QAM 12/30/23 12/23/24 History mcg (1,000 unit) capsule (Vitamin D3) coenzyme Q10 10 mg capsule (Co 10 mg PO DAILY 12/30/23 12/23/24 History Q-10) metoprolol succinate 25 mg 25 mg PO QAM 12/30/23 12/23/24 History tablet,extended release 24 hr levothyroxine 25 mcg tablet 25 mcg PO UD 01/23/24 12/23/24 History nifedipine 30 mg tablet,extended 30 day PO DAILY ##0 03/20/24 12/23/24 History release insulin aspart 10 unit subcut TIDWMEAL 09/21/24 12/23/24 History (niacinamide)(U-100) 100 unit/mL(3 mL) subcutaneous pen (Fiasp FlexTouch U-100 Insulin) doxycycline hyclate 100 mg tablet 100 mg PO BID 12/23/24 12/23/24 History insulin glargine 100 unit/mL (3 10 unit subcut UD 12/23/24 12/23/24 History mL) subcutaneous pen (Basaglar KwikPen U-100 Insulin) pantoprazole 40 mg tablet,delayed 40 mg PO UD 12/23/24 12/23/24 History release prasugrel HCl 10 mg tablet 10 mg PO UD 12/23/24 12/23/24 History sevelamer carbonate 800 mg tablet 800 mg PO TIDM 12/23/24 12/23/24 History Allergies Allergy/AdvReac Type Severity Reaction Status Date / Time No Known Allergies Allergy Verified 09/21/24 09:20 Past Med/Surg History Problem List (Updated 12/23/24 @ 08:13 by Eris Lacy MD) Abscess of chest wall (Acute) Abscess of chest wall Chronic pancreatitis Gastritis LBBB (left bundle branch block) Lymphadenopathy Prolonged QT interval End stage chronic kidney disease (Acute) Esophagitis (Acute) Chest pain (Acute) Duodenal ulcer Nephrolithiasis Acute blood loss anemia Upper GI bleed ESRD (end stage renal disease) on dialysis Acute GI bleeding (Acute) Hypertension Peripheral neuropathy Subungual hematoma of fourth toe of left foot Septic shock Hydronephrosis concurrent with and due to calculi of kidney and ureter Metabolic acidosis (Acute) Acute dehydration (Acute) Diarrhea (Acute) YASIR (acute kidney injury) (Acute) DM type 2 (diabetes mellitus, type 2) Immunosuppressed status (Acute) HIV (human immunodeficiency virus infection) CKD (chronic kidney disease) stage 4, GFR 15-29 ml/min History of left bundle branch block (LBBB) CAD (coronary artery disease) Acute hyperglycemia (Acute) Syncope (Acute) Medical History History of COVID-19 2020 Hypertension Diabetes mellitus Hx of sepsis hospitalized at [facility] January 2024 Port-A-Cath in place ESRD (end stage renal disease) on dialysis [facility] in [place] > Tues/ Thurs / Sat History of kidney stones Osteoarthritis Chronic lower back pain History of pancreatitis History of skin cancer [place] (hard of hearing) HLD (hyperlipidemia) History of myocardial infarction 2016 & 2019 Sleep apnea no device Diverticulosis GERD (gastroesophageal reflux disease) IBS (irritable bowel syndrome) Precancerous lesion rectal CAD (coronary artery disease) Per patient, stenting x 5 in 2016 and restenting of 1 vessel performed in July 2020 Depression HIV (human immunodeficiency virus infection) Surgical History History of esophagogastroduodenoscopy (EGD) S/P ureteral stent placement History of removal of ureteral stent History of cystoscopy History of colonoscopy History of cholecystectomy History of cardiac catheterization 2016 - stents 2019 -- restenting x 1. [facility] Family History Mother Heart disease Social History Smoking Status: Never smoker Tobacco Type: Cigarettes Second Hand Exposure: No; Do You Dip or Chew Tobacco: No; Hx Alcohol Use: Yes (history) Alcohol type: beer, wine and hard liquor Alcohol Intake Frequency: Monthly or Less Hx Substance Use: No Preferred Language: Indonesian Communication Ability: Effective Magnetic Prospecting Supervisor Required: No Beliefs That Will Affect Care: None Current Living Situation: Alone Feels Safe at Home: Yes Assistive Devices: Glasses Physical Exam Vital Signs Vital Signs - 24 hr 12/23/24 05:45 12/23/24 06:31 12/23/24 07:01 Temperature 36.7 C Temperature Source Oral Pulse Rate 76 72 Respiratory Rate 20 Respiratory Effort / Characteristics Non-Labored Spontaneous Respiratory Depth Normal Blood Pressure 150/87 H 159/81 H Blood Pressure Mean 108 97 Pulse Oximetry 97 Oxygen Delivery Method Room Air Sepsis Recent Fever Within 48 Hours No Sepsis New/Unexplained Change in Mental Status No Sepsis Action Taken by Nursing No Action Required Physical Exam HENT: Exam performed. - Head: Normocephalic and atraumatic. EYES: Conjunctivae and EOM are normal. Pupils are equal, round, and reactive to light. Right eye exhibits no discharge. Left eye exhibits no discharge. No scleral icterus. NECK: Normal range of motion. Neck supple. No JVD present. CV: Normal rate, regular rhythm, normal heart sounds and intact distal pulses. There is no peripheral edema. Palpable radial pulses bue. PULM/CHEST: Effort normal and breath sounds normal. No respiratory distress. No stridor. He has no wheezes. He has no rales. - Chest Wall: Right-sided permacath placed in the right chest. Adjacent to it there is a 4 x 4 centimeter abscess with erythema. No drainage from the abscess. ABD: The abdomen is soft. He has no distension. No mass is present. There is no tenderness. There is no rebound, no guarding. MUSC/SKEL: Normal range of motion. There is no peripheral edema, tenderness or deformity. NEURO: He is alert and oriented to person, place, and time. He has normal strength. No cranial nerve deficit or sensory deficit. Coordination and gait normal. GCS eye subscore is 4. GCS verbal subscore is 5. GCS motor subscore is 6. Cerebellar tests wnl. Course Course 06: The patient was evaluated in room B2. A complete history and physical exam was performed Cardiac monitoring: An order was placed for continuous cardiac monitoring. The monitor shows a rate of 70 with sinus rhythm interpreted by me 0722: Spoke with general surgery PA for Dr. Rickie Baca's PA mike. She states he will be down to evaluate the patient. 0812: Patient was evaluated by general surgery in the emergency department Sean. She states they will plan on doing a bedside I&D on the patient. I stated I would speak with nephrology to try arrange outpatient dialysis or see if the patient needs to be admitted for dialysis. I spoke with Dr. Carvajal, on- call [facility] nephrology. He states he recommends that the patient be given vancomycin and cefepime and he states he will arrange for dialysis today in the hospital. Patient will be admitted to the medicine team. Medical Decision Making Laboratory Data Attestation: I reviewed the patient's lab results. 12/23/24 06:15 12/23/24 06:15 Lab Results 12/23/24 Range/Units 06:15 WBC 4.85 (4.8-10.8) K/ul RBC 4.38 L (4.70-6.10) M/uL Hgb 12.2 L (14.0-18.0) g/dl Hct 37.4 L (42.0-52.0) % MCV 85.4 (80.0-100.0) fL MCH 27.9 (25.0-34.0) pg MCHC 32.6 (32.0-36.0) g/dL RDW Std Deviation 43.5 (36.4-46.3) fL RDW Coeff of [place] 13.9 (11.5-14.5) % Plt Count 171 (130-400) K/uL MPV 9.2 L (9.4-12.4) fL Immature Gran % (Auto) 0.4 % Neut % (Auto) 63.3 % Lymph % (Auto) 23.3 % [place] % (Auto) 9.3 % Eos % (Auto) 3.3 % Baso % (Auto) 0.4 % Neut # (Auto) 3.07 (1.40-6.50) K/uL Lymph # (Auto) 1.13 L (1.20-3.40) K/uL [place] # (Auto) 0.45 (0.11-0.59) K/uL Eos # (Auto) 0.16 (0.00-0.50) K/uL Baso # (Auto) 0.02 (0.00-0.20) K/uL Immature Gran # (Auto) 0.02 (0.01-0.20) K/uL PT 10.4 (9.0-12.0) Seconds INR 1.0 (0.9-1.1) APTT 27 (21-31) Seconds PTT Ratio 1.0 Sodium 130 L (136-145) mmol/L Potassium 4.9 (3.5-5.1) mmol/L Chloride 98 (98-107) mmol/L Carbon Dioxide 26 (21-32) mmol/L Anion Gap 6 (3-11) BUN 40 H (6-23) mg/dl Creatinine 3.51 H (0.6-1.4) mg/dl Est Cr Clr Drug Dosing 19.3 ml/min eGFR 17.83 BUN/Creatinine Ratio 11.4 (10-20) Glucose 631 H* (70-99(Fasting)) mg/dl Calcium 9.3 (8.6-10.3) mg/dl Total Bilirubin 0.4 (0.2-1.0) mg/dl AST 17 (13-39) U/L ALT 18 (7-52) U/L Alkaline Phosphatase 126 H (34-104) U/L Total Protein 7.1 (6.0-8.3) gm/dl Albumin 4.2 (3.4-5.0) gm/dl Globulin 2.9 (2.5-4.0) gm/dl Albumin/Globulin Ratio 1.4 (0.9-2) ECG Data Attestation: I personally reviewed and interpreted this ECG as follows: Rate (beats per minute): 70 Rhythm: + normal sinus ECG Intervals/blocks: + First degree AV block, + Normal QRS and + Normal QT-c ECG ST segments: + Normal ST segments and + T-wave inversions (Leads III, aVF, V2, V3 V4 V5) [facility] Narrative 0633: The patient was evaluated in room B2. A complete history and physical exam was performed Cardiac monitoring: An order was placed for continuous cardiac monitoring. The monitor shows a rate of 70 with sinus rhythm interpreted by me 0722: Spoke with general surgery PA for Dr. Rickie Baca's PA mike. She states he will be down to evaluate the patient. 0812: Patient was evaluated by general surgery in the emergency department Sean. She states they will plan on doing a bedside I&D on the patient. I stated I would speak with nephrology to try arrange outpatient dialysis or see if the patient needs to be admitted for dialysis. I spoke with Dr. Carvajal, on- call [facility]. He states he recommends that the patient be given vancomycin and cefepime and he states he will arrange for dialysis today in the hospital. Patient will be admitted to the medicine team. Impression & Plan Abscess of chest wall Discharge Plan Visit Data Chief Complaint: Infection, Wound Stated Complaint: INFECTION ED Provider: Eris Lacy Discharge Problem: Abscess of chest wall Patient Disposition: Being Evaluated by Hospitalist Forms Stand Alone Forms: My [facility] Prescriptions Prescriptions: No Action atorvastatin 40 mg tablet 40 mg PO QAM fluoxetine 20 mg capsule 20 mg PO QAM Juluca 50-25 mg tablet 1 tab PO QAM multivitamin Tablet 1 tab PO QAM Rx Instructions: otc unable to verify metoprolol succinate 25 mg tablet extended release 24 hr 25 mg PO QAM coenzyme Q10 [Co Q-10] 10 mg Capsule 10 mg PO DAILY Rx Instructions: otc unable to verify aspirin 81 mg Tablet,Delayed Release (Dr/Ec) 81 mg PO QAM Rx Instructions: otc unable to verify cholecalciferol (vitamin D3) [Vitamin D3] 25 mcg (1,000 unit) Capsule 25 mcg PO QAM Rx Instructions: otc unable to verify doxycycline hyclate 100 mg tablet 100 mg PO BID sevelamer carbonate 800 mg tablet 800 mg PO TIDM pantoprazole 40 mg tablet,delayed release (DR/EC) 40 mg PO UD Rx Instructions: 40 mg po bid. Per fill history 10/25/24 90 day supply directions are 1 tab po qam insulin glargine [Basaglar KwikPen U-100 Insulin] 100 unit/mL (3 mL) insulin pen 10 unit SUBCUT UD Rx Instructions: 10u subcut qam. last filled 08/29/24 136 day supply for 22units subcut in the morning prasugrel HCl 10 mg tablet 10 mg PO UD Rx Instructions: 10 mg po qam. last filled 07/22/24 90 day supply levothyroxine 25 mcg tablet 25 mcg PO UD Rx Instructions: 25 mcg po qam. last filled 09/22/24 12 day supply nifedipine 30 mg Tablet Extended Release 30 day PO DAILY Qty: 0 Fiasp FlexTouch U-100 Insulin 100 unit/mL (3 mL) insulin pen 10 unit SUBCUT TIDWMEAL Referrals Referrals: Antonio Colon MD [Primary Care Provider] -
[2024-12-23 07:26] LABS: Partial Thromboplastin Time 27 Seconds (21-31); Prothrombin Time 10.4 Seconds (9.0-12.0)
[2024-12-23] MEDS ORDERED: VANCOMYCIN CONSULT ACTIVE PRN ×2 (08:07→11:06)
--- NOTE | 2024-12-23 08:08 | Surgery Consultation ---
<Statement entered by Claudia Nguyen, - 12/23/24 11:02> I have seen and examined this patient with the surgical GROUNDING ENGINEER and I agree with this plan. Date of Consultation December 23, 2024 Assessment & Plan (1) Abscess of chest wall: Patient with abscess of right chest wall medial to right axilla. Pt in NAD, vss afebrile, wbc 4.8, does not appear septic right chest abscess: Erythema, warmth, indurated, no drainage, painful to palpation. ER physician is to speak with nephrology regarding dialysis and sent a blood culture to be pulled from perm cath Discussed with Dr Nguyen superintendent car construction surgeon and recommending a bedside incision and drainage, patient agreeable. Should be placed on antibiotics at d/c, follow up with pcp next week History of Present Illness Reason for Consultation: right side chest wall abscess Requesting Physician: Dr. Lacy History of Present Illness Patient is a pleasant 69 yo male with PMH of ESRD on dialysis with permcath, LBBB, gastritis, chronic pancreatitis, DM type2, HIV infection, CAD, HTN that was suppose to get dialysis today however was instructed to the come the [facility] ER 2/ an abscess on right side chest wall. Patient reports he had a flesh colored "skin tag" on his chest. Two weeks ago the dialysis nurse thought it was a black head, and tried to clean it out. Patient reports then later at home he was able to squeeze out some thick white substance from the area. The area then began to increase in size and develop erythema, warmth and pain. He was seen on Wednesday and placed on oral doxycycline. He denies drainage of the area, fever, chills, cp, sob. Allergies Allergy/AdvReac Type Severity Reaction Status Date / Time No Known Allergies Allergy Verified 09/21/24 09:20 Home Medications Medication Instructions Recorded Confirmed Type atorvastatin 40 mg tablet 40 mg PO QAM 01/06/22 09/21/24 History dolutegravir 50 mg-rilpivirine 25 1 tab PO QAM 01/06/22 09/21/24 History mg tablet (Juluca) fluoxetine 20 mg capsule 20 mg PO QAM 01/06/22 09/21/24 History multivitamin 1 tab PO QAM 01/06/22 09/21/24 History aspirin 81 mg tablet,delayed 81 mg PO QAM 12/30/23 09/21/24 History release cholecalciferol (vitamin D3) 25 25 mcg PO QAM 12/30/23 09/21/24 History mcg (1,000 unit) capsule (Vitamin D3) coenzyme Q10 10 mg capsule (Co 10 mg PO DAILY 12/30/23 09/21/24 History Q-10) metoprolol succinate 25 mg 25 mg PO QAM 12/30/23 09/21/24 History tablet,extended release 24 hr insulin glargine 100 unit/mL (3 10 unit (0.1 mL) subcut QAM #0 mL 01/14/24 09/21/24 Rx mL) subcutaneous pen (Basaglar KwikPen U-100 Insulin) prasugrel HCl 10 mg tablet 10 mg PO QAM #30 tabs 01/14/24 09/21/24 Rx levothyroxine 25 mcg tablet 25 mcg PO QAM 01/23/24 09/21/24 History nifedipine 30 mg tablet,extended 30 day PO DAILY ##0 03/20/24 09/21/24 History release insulin aspart 10 unit subcut TIDWMEAL 09/21/24 09/21/24 History (niacinamide)(U-100) 100 unit/mL(3 mL) subcutaneous pen (Fiasp FlexTouch U-100 Insulin) pantoprazole 40 mg tablet,delayed 40 mg PO BID #60 tabs 09/23/24 Rx release Patient History Medical History History of COVID-19 2020 Hypertension Diabetes mellitus Hx of sepsis hospitalized at [facility] January 2024 Port-A-Cath in place ESRD (end stage renal disease) on dialysis [facility] in [place] > Tues/ Thurs / Sat History of kidney stones Osteoarthritis Chronic lower back pain History of pancreatitis History of skin cancer [place] (hard of hearing) HLD (hyperlipidemia) History of myocardial infarction 2016 & 2019 Sleep apnea no device Diverticulosis GERD (gastroesophageal reflux disease) IBS (irritable bowel syndrome) Precancerous lesion rectal CAD (coronary artery disease) Per patient, stenting x 5 in 2017 and restenting of 1 vessel performed in July 2020 Depression HIV (human immunodeficiency virus infection) Surgical History History of esophagogastroduodenoscopy (EGD) S/P ureteral stent placement History of removal of ureteral stent History of cystoscopy History of colonoscopy History of cholecystectomy History of cardiac catheterization 2017 - stents 2020 -- restenting x 1. [facility] Family History Mother Heart disease Social History Smoking Status: Never smoker Tobacco Type: Cigarettes Second Hand Exposure: No; Do You Dip or Chew Tobacco: No; Hx Alcohol Use: Yes (history) Alcohol type: beer, wine and hard liquor Alcohol Intake Frequency: Monthly or Less Hx Substance Use: No Preferred Language: Divehi Communication Ability: Effective Heating Operators Engineer Required: No Beliefs That Will Affect Care: None Current Living Situation: Alone Feels Safe at Home: Yes Assistive Devices: Glasses Review of Systems Constitutional: no fever and no chills Respiratory: no dyspnea Cardiovascular: no chest pain Integumentary: + wounds and + erythema Physical Exam Constitutional: cooperative and comfortable; no acute distress Respiratory: normal respiratory effort; no respiratory distress Cardiovascular: Rate/Rhythm: regular rate Skin: + wound and + erythema Psychiatric: A+Ox3, euthymic affect Results & Data Vital Signs (Past 12 Hours) Vital Signs Temp Pulse Resp BP Pulse Ox O2 Del Method 12/23/24 07:01 159/81 H 12/23/24 06:31 72 12/23/24 05:45 98.1 F 76 20 150/87 H 97 Room Air Results CBC w Diff Results: RBC 4.38 M/uL (4.70-6.10) L 12/23/24 WBC 4.85 K/ul (4.8-10.8) 12/23/24 Hgb 12.2 g/dl (14.0-18.0) L 12/23/24 Hct 37.4 % (42.0-52.0) L 12/23/24 MCV 85.4 fL (80.0-100.0) 12/23/24 MCH 27.9 pg (25.0-34.0) 12/23/24 MCHC 32.6 g/dL (32.0-36.0) 12/23/24 RDW Standard Deviation 43.5 fL (36.4-46.3) 12/23/24 RDW Coefficient of Variation 13.9 % (11.5-14.5) 12/23/24 Plt Count 171 K/uL (130-400) 12/23/24 MPV 9.2 fL (9.4-12.4) L 12/23/24 Nucleated Red Blood Cells % (auto) 0.1 % 12/31 Nucleated RBC Absolute Count (auto) 0.02 K/uL (0.00-0.12) 0 01/01/24 Neutrophils (%) (Auto) 63.3 % 12/23/24 Lymphocytes (%) (Auto) 23.3 % 12/23/24 Monocytes # (Auto) 0.45 K/uL (0.11-0.59) 12/23/24 Eosinophils # (Auto) 0.16 K/uL (0.00-0.50) 12/23/24 Immature Granulocyte % (Auto) 0.4 % 12/23/24 Neutrophils # (Auto) 3.07 K/uL (1.40-6.50) 12/23/24 Lymphocytes # (Auto) 1.13 K/uL (1.20-3.40) L 12/23/24 Monocytes # (Auto) 0.45 K/uL (0.11-0.59) 12/23/24 Eosinophils # (Auto) 0.16 K/uL (0.00-0.50) 12/23/24 Basophils # (Auto) 0.02 K/uL (0.00-0.20) 12/23/24 Immature Granulocyte # (Auto) 0.02 K/uL (0.01-0.20) 5 Red Blood Cell Morphology Unremarkable 01/23/24 PG Care Time/CCT Total # of Minutes Spent Total Time Spent with Patient: Total time spent is greater than 50% in coordination of care (as documented) at patient's floor/unit and/or counseling patient: Coding Level of Care Code 94521 INT INP/OBS CARE 1/40MIN Diagnoses Abscess of chest wall L02.213
--- NOTE | 2024-12-23 09:01 | History & Physical Report ---
Date of Service December 23, 2024 Assessment & Plan (1) Abscess of chest wall: Plan: Infected sebaceous cyst right upper chest wall near to the axilla Possible abscess with spreading cellulitis Blood cultures were taken and he has been started with intravenous vancomycin and cefepime by the managed care coordinator and will be continued for now Appreciate surgery input and recommendation for possible I&D today No signs of sepsis (2) ESRD (end stage renal disease) on dialysis: Plan: Has right sided port for dialysis Will have dialysis today as the catheter site remains intact Appreciate nephrology input and recommendation (3) Hypertension: Plan: Blood pressure remains mildly elevated at 159/81 Will continue current medications (4) DM type 2 (diabetes mellitus, type 2): Plan: He has been on insulin,we will continue He will be put on sliding scale insulin coverage while in the hospital as well (5) CAD (coronary artery disease): Plan: History of cardiac stent placement EKG remains unremarkable denies any cardiac symptoms Will continue cardiac medications Plan Other significant medical conditions remained stable Will continue outpatient medications as he has been taking DVT prophylaxis Subcu heparin CODE STATUS Full History of Present Illness Chief Complaint: Increasing swelling and redness involving right upper chest wall for the last 2 to 3 days Primary Care Provider: Antonio Colon MD He is a 69-year-old male with significant past medical history of end-stage renal disease on hemodialysis, hypertension, CAD status post stent in 2018, diabetes type 2 on insulin and hyperlipidemia apparently has been complaining of a small lump/sebaceous cyst involving the right upper chest wall near the axilla for the last 2 weeks. The cyst was tried to aspirate by her nurse in the clinic about 10 days ago and only a small amount of white greasy material came out and the patient tried to squeeze it out without much benefit. The swelling has been getting red with spreading redness and tenderness for the last 2 to 3 days and he has been taking doxycycline as an outpatient without any improvement. He went for dialysis today and was sent in to take care of his abscess and go from there. He denies any fever and or chills, nausea or vomiting, and no other significant symptoms. Only issue is his some pain involving the abscess with a spreading cellulitis. He was seen by his surgery and will do I&D and was started with intravenous antibiotic by managed care coordinator after taking blood cultures. He there is of the admission will be [facility] to [facility] for continuation of care. Allergies Allergy/AdvReac Type Severity Reaction Status Date / Time No Known Allergies Allergy Verified 09/21/24 09:20 Home Medications Medication Instructions Recorded Confirmed Type atorvastatin 40 mg tablet 40 mg PO QAM 01/06/22 12/23/24 History dolutegravir 50 mg-rilpivirine 25 1 tab PO QAM 01/06/22 12/23/24 History mg tablet (Juluca) fluoxetine 20 mg capsule 20 mg PO QAM 01/06/22 12/23/24 History multivitamin 1 tab PO QAM 01/06/22 12/23/24 History aspirin 81 mg tablet,delayed 81 mg PO QAM 12/30/23 12/23/24 History release cholecalciferol (vitamin D3) 25 25 mcg PO QAM 12/30/23 12/23/24 History mcg (1,000 unit) capsule (Vitamin D3) coenzyme Q10 10 mg capsule (Co 10 mg PO DAILY 12/30/23 12/23/24 History Q-10) metoprolol succinate 25 mg 25 mg PO QAM 12/30/23 12/23/24 History tablet,extended release 24 hr levothyroxine 25 mcg tablet 25 mcg PO UD 01/23/24 12/23/24 History nifedipine 30 mg tablet,extended 30 day PO DAILY ##0 03/20/24 12/23/24 History release insulin aspart 10 unit subcut TIDWMEAL 09/21/24 12/23/24 History (niacinamide)(U-100) 100 unit/mL(3 mL) subcutaneous pen (Fiasp FlexTouch U-100 Insulin) doxycycline hyclate 100 mg tablet 100 mg PO BID 12/23/24 12/23/24 History insulin glargine 100 unit/mL (3 10 unit subcut UD 12/23/24 12/23/24 History mL) subcutaneous pen (Basaglar KwikPen U-100 Insulin) pantoprazole 40 mg tablet,delayed 40 mg PO UD 12/23/24 12/23/24 History release prasugrel HCl 10 mg tablet 10 mg PO UD 12/23/24 12/23/24 History sevelamer carbonate 800 mg tablet 800 mg PO TIDM 12/23/24 12/23/24 History Past Med/Surg History Problem List (Updated 12/23/24 @ 08:13 by Eris Lacy MD) Abscess of chest wall (Acute) Abscess of chest wall Chronic pancreatitis Gastritis LBBB (left bundle branch block) Lymphadenopathy Prolonged QT interval End stage chronic kidney disease (Acute) Esophagitis (Acute) Chest pain (Acute) Duodenal ulcer Nephrolithiasis Acute blood loss anemia Upper GI bleed ESRD (end stage renal disease) on dialysis Acute GI bleeding (Acute) Hypertension Peripheral neuropathy Subungual hematoma of fourth toe of left foot Septic shock Hydronephrosis concurrent with and due to calculi of kidney and ureter Metabolic acidosis (Acute) Acute dehydration (Acute) Diarrhea (Acute) YASIR (acute kidney injury) (Acute) DM type 2 (diabetes mellitus, type 2) Immunosuppressed status (Acute) HIV (human immunodeficiency virus infection) CKD (chronic kidney disease) stage 4, GFR 15-29 ml/min History of left bundle branch block (LBBB) CAD (coronary artery disease) Acute hyperglycemia (Acute) Syncope (Acute) Medical History History of COVID-19 2020 Hypertension Diabetes mellitus Hx of sepsis hospitalized at [facility] January 2024 Port-A-Cath in place ESRD (end stage renal disease) on dialysis [facility] in [place] > Tues/ Thurs / Sat History of kidney stones Osteoarthritis Chronic lower back pain History of pancreatitis History of skin cancer [place] (hard of hearing) HLD (hyperlipidemia) History of myocardial infarction 2016 & 2019 Sleep apnea no device Diverticulosis GERD (gastroesophageal reflux disease) IBS (irritable bowel syndrome) Precancerous lesion rectal CAD (coronary artery disease) Per patient, stenting x 5 in 2016 and restenting of 1 vessel performed in July 2020 Depression HIV (human immunodeficiency virus infection) Surgical History History of esophagogastroduodenoscopy (EGD) S/P ureteral stent placement History of removal of ureteral stent History of cystoscopy History of colonoscopy History of cholecystectomy History of cardiac catheterization 2017 - 5 stents 2019 -- restenting x 1. Formerly [facility], later [facility] Family History Mother Heart disease Social History Smoking Status: Never smoker Tobacco Type: Cigarettes Second Hand Exposure: No; Do You Dip or Chew Tobacco: No; Hx Alcohol Use: Yes (history) Alcohol type: beer, wine and hard liquor Alcohol Intake Frequency: Monthly or Less Hx Substance Use: No Preferred Language: Mauritian Communication Ability: Effective Trackman Required: No Beliefs That Will Affect Care: None Current Living Situation: Alone Feels Safe at Home: Yes Assistive Devices: Glasses Review of Systems Review of Systems: All systems reviewed and unremarkable except as noted below. Physical Exam Physical Exam: Lying in bed without any acute distress Constitutional: average body habitus; not ill appearing Eyes: PERRL, conjunctivae normal, anicteric sclerae ENMT: external ear and nose normal, oropharynx normal Neck: trachea midline, no thyromegaly Respiratory: no respiratory distress Auscultation: lungs clear to auscultation bilaterally Cardiovascular: Rate/Rhythm: regular rate and regular rhythm; not tachycardic Heart Sounds: normal S1 and normal S2; no murmur Extremities: no edema Gastrointestinal (Abdomen): Inspection/Auscultation: normal bowel sounds; abdomen not distended Percussion/Palpation: abdomen soft; abdomen nontender Musculoskeletal: No acute arthritis involving any of the joint Neurologic: normal touch/pain/proprioception and moves all extremities; no focal motor deficits Psychiatric: A+Ox3, euthymic affect Lymphatic: no cervical or axillary lymphadenopathy Results & Data Results & Data Vital Signs (Past 12 Hours) Vital Signs Temp Pulse Resp BP Pulse Ox O2 Del Method 12/23/24 07:01 159/81 H 12/23/24 06:31 72 12/23/24 05:45 36.7 C 76 20 150/87 H 97 Room Air Laboratory Results Short CBC 12/23/24 Range/Units 06:15 WBC 4.85 (4.8-10.8) K/ul Hgb 12.2 L (14.0-18.0) g/dl Hct 37.4 L (42.0-52.0) % Plt Count 171 (130-400) K/uL BMP 12/23/24 06:15 Sodium 130 L Potassium 4.9 Chloride 98 Carbon Dioxide 26 BUN 40 H Creatinine 3.51 H Glucose 631 H* Calcium 9.3 Liver Function 12/23/24 Range/Units 06:15 Total Bilirubin 0.4 (0.2-1.0) mg/dl AST 17 (13-39) U/L ALT 18 (7-52) U/L Alkaline Phosphatase 126 H (34-104) U/L Albumin 4.2 (3.4-5.0) gm/dl Medications Administered Current Inpatient Medications Heparin Sodium (Porcine) (Heparin Sod 5,000 Unit/0.5 Ml Vial) 5,000 units SQ Q12 MOSHE Stop: 01/22/25 08:59 Vancomycin HCl 1,500 mg/ (Sodium Chloride) 530 mls @ 200 mls/hr IV NOW ONE Stop: 12/23/24 10:45 Miscellaneous Information (Vancomycin Consult Active) 1 each N/A UD PRN PRN Reason: Consult Stop: 01/22/25 08:06 Code Status & VTE Plan VTE Prophylaxis Plan VTE Prophylaxis will be ordered: Yes (3) Hypertension Hypertension type: unspecified Qualified Code(s): I10 - Essential (primary) hypertension (4) DM type 2 (diabetes mellitus, type 2) 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 transplanted heart: [place] heart Associated angina: unspecified whether angina present Qualified Code(s): I25.10 - Atherosclerotic heart disease of [place] coronary artery without angina pectoris
[2024-12-23] MEDS: CEFEPIME 2000MG 2,000 MG/20 ML SYR IV STA (09:05)
[2024-12-23] MEDS: VANCOMYCIN HCL 1,500 MG in SODIUM CHLORIDE 0.9% 500 ML IV ONE (09:47)
[2024-12-23] MEDS: LIDOCAINE 1%/EPINEPHRINE 1:100,000 50 ML VIAL INJ ONE (10:14)
[2024-12-23] MEDS: HEPARIN SOD 5,000 UNIT/0.5 ML VIAL SQ SCH (10:14)
[2024-12-23] MEDS ORDERED: GLUCOSE 40% GEL 15 GM TUBE PO PRN (10:54)
[2024-12-23] MEDS ORDERED: GLUCOSE 10 TAB/TUBE PO PRN (10:54)
[2024-12-23] MEDS ORDERED: CARBOHYDRATES FOR HYPOGLYCEMIA PO PRN (10:54)
[2024-12-23] MEDS ORDERED: LANTUS PER UNIT CHARGE SQ STA (10:54)
[2024-12-23] MEDS ORDERED: DEXTROSE 50% 50 ML SYRINGE IV PRN (10:54)
[2024-12-23] MEDS ORDERED: GLUCAGON FOR INJ 1 MG VIAL SQ PRN (10:54)
[2024-12-23] MEDS: INSULIN ASPART PER UNIT CHARGE SC ONE (11:08)
[2024-12-23] MEDS: INSULIN ASPART PER UNIT CHARGE SC SCH (11:09)
[2024-12-23] MEDS ORDERED: VANCOMYCIN HCL 1,000 MG/270 ML BAG IV SCH (11:15)
[2024-12-23] MEDS ORDERED: NON-FORMULARY MEDICATION (Coenzyme Q10 [Co Q-10] 10 mg Capsule) PO SCH (11:24)
[2024-12-23] MEDS: MoRPHine SULFATE 2 MG/ML CARP IV STA (11:30)
--- NOTE | 2024-12-23 12:03 | Procedure Note ---
Procedure Note Date of Service December 23, 2024 The details of the procedure were explained to the patient including risks and benefits and consent was obtained. Caio Cespedes NP assisted. The area was prepped using Betadine prep and the skin over the abscess was anesthetized using local anesthetic A 2cm incision was made over the area after which thick purulent drainage was expressed and a culture was obtained The area was probed to release any surrounding collections of purulence Once this all appeared relieved, the wound was irrigated with saline and packed with 1/4" packing The area was then covered with dry gauze secured in place with tape He tolerated the procedure well Coding Additional Codes Date of Service ([facility].[email or web address])
[2024-12-23] MEDS: MULTIVITAMIN TAB PO SCH (12:26)
[2024-12-23] MEDS: NIFEdipine EXTENDED REL 30 MG TABCR PO SCH (12:26)
[2024-12-23] MEDS: ASPIRIN 81 MG ECTAB PO SCH (12:27)
[2024-12-23] MEDS: SEVELAMER CARBONATE 800 MG TAB PO SCH (12:27)
[2024-12-23] MEDS: CHOLECALCIFEROL 25 MCG (1000 UNITS) TAB PO SCH (12:27)
[2024-12-23] MEDS: FLUoxetine HCL 20 MG CAP PO SCH (12:27)
[2024-12-23] MEDS: LEVOTHYROXINE SODIUM 25 MCG TABLET PO SCH (12:27)
[2024-12-23] MEDS: METOPROLOL SUCC 25MG EXT REL TAB PO SCH (12:27)
[2024-12-23] MEDS: PRASugrel TAB 10 MG TAB PO SCH (12:27)
[2024-12-23] MEDS: ATORVASTATIN 40 MG TAB PO SCH (12:28)
[2024-12-23] MEDS: PANTOprazole 40 MG TAB PO SCH (12:28)
--- NOTE | 2024-12-23 12:33 | Nephrology Consultation ---
Date of Consultation December 23, 2024 Assessment & Plan (1) ESRD (end stage renal disease) on dialysis: Patient had a full dialysis on -will dialyze him today as per his outpatient prescription. -please continue him on all his outpatient medications -blood pressure is mildly elevated Please continue him on all his outpatient medication -expect his pressures to improve once the pain is in control and he undergoes dialysis today. (2) Abscess of chest wall: -plan I and D by surgery today -swab culture and blood cultures sen -continue on vancomycin and cefepime for now-narrow antibiotics as per culture reports History of Present Illness Reason for Consultation: ESRD patient on hemodialysis, admitted with abscess/cellulitis on the right chest wall , Attending Physician: Ashwin Hampton MD History of Present Illness 69-year-old male, ESRD on HD TTS, who was sent to ER from dialysis unit after noticing abscess/cellulitis on the right chest wall adjacent to axilla. According to patient he initially had what he thought was Folliculitis around a week back, he had tried to drain it himself at home a few days back, he was seen in Urgent Care and started on doxycycline 3 days back. However he noticed increased swelling and redness around the axillary site. No complaints of fever/chills/rigors, he had full dialysis treatment on . Plan for I and D by surgery today, with swab culture Blood cultures have been sent Patient empirically started on vancomycin and cefepime. Nephrology called for dialysis support Allergies Allergy/AdvReac Type Severity Reaction Status Date / Time No Known Allergies Allergy Verified 09/21/24 09:20 Home Medications Medication Instructions Recorded Confirmed Type atorvastatin 40 mg tablet 40 mg PO QAM 01/06/22 12/23/24 History dolutegravir 50 mg-rilpivirine 25 1 tab PO QAM 01/06/22 12/23/24 History mg tablet (Juluca) fluoxetine 20 mg capsule 20 mg PO QAM 01/06/22 12/23/24 History multivitamin 1 tab PO QAM 01/06/22 12/23/24 History aspirin 81 mg tablet,delayed 81 mg PO QAM 12/30/23 12/23/24 History release cholecalciferol (vitamin D3) 25 25 mcg PO QAM 12/30/23 12/23/24 History mcg (1,000 unit) capsule (Vitamin D3) coenzyme Q10 10 mg capsule (Co 10 mg PO DAILY 12/30/23 12/23/24 History Q-10) metoprolol succinate 25 mg 25 mg PO QAM 12/30/23 12/23/24 History tablet,extended release 24 hr levothyroxine 25 mcg tablet 25 mcg PO UD 01/23/24 12/23/24 History nifedipine 30 mg tablet,extended 30 day PO DAILY ##0 03/20/24 12/23/24 History release insulin aspart 10 unit subcut TIDWMEAL 09/21/24 12/23/24 History (niacinamide)(U-100) 100 unit/mL(3 mL) subcutaneous pen (Fiasp FlexTouch U-100 Insulin) doxycycline hyclate 100 mg tablet 100 mg PO BID 12/23/24 12/23/24 History insulin glargine 100 unit/mL (3 10 unit subcut UD 12/23/24 12/23/24 History mL) subcutaneous pen (Basaglar KwikPen U-100 Insulin) pantoprazole 40 mg tablet,delayed 40 mg PO UD 12/23/24 12/23/24 History release prasugrel HCl 10 mg tablet 10 mg PO UD 12/23/24 12/23/24 History sevelamer carbonate 800 mg tablet 800 mg PO TIDM 12/23/24 12/23/24 History Patient History Medical History History of COVID-19 2020 Hypertension Diabetes mellitus Hx of sepsis hospitalized at [facility] January 2024 Port-A-Cath in place ESRD (end stage renal disease) on dialysis [facility] in [place] > Tu/ Thurs / Sat History of kidney stones Osteoarthritis Chronic lower back pain History of pancreatitis History of skin cancer NEZ PER[place] (hard of hearing) HLD (hyperlipidemia) History of myocardial infarction 2016 & 2019 Sleep apnea no device Diverticulosis GERD (gastroesophageal reflux disease) IBS (irritable bowel syndrome) Precancerous lesion rectal CAD (coronary artery disease) Per patient, stenting x 5 in 2016 and restenting of 1 vessel performed in July 2020 Depression HIV (human immunodeficiency virus infection) Surgical History History of esophagogastroduodenoscopy (EGD) S/P ureteral stent placement History of removal of ureteral stent History of cystoscopy History of colonoscopy History of cholecystectomy History of cardiac catheterization 2017 - 5 stents 2020 -- restenting x 1. Formerly [facility] Family History Mother Heart disease Social History Smoking Status: Never smoker Tobacco Type: Cigarettes Second Hand Exposure: No; Do You Dip or Chew Tobacco: No; Hx Alcohol Use: Yes (history) Alcohol type: beer, wine and hard liquor Alcohol Intake Frequency: Monthly or Less Hx Substance Use: No Preferred Language: Malagasy Communication Ability: Effective Safety Aide Required: No Beliefs That Will Affect Care: None Current Living Situation: Alone Feels Safe at Home: Yes Assistive Devices: Glasses Review of Systems 2 Review of Systems: Alert oriented, Complains of pain around the right axilla Physical Exam 2 Physical Exam: Fluctuant mass in the anterior axillary line on the right side, erythematous and tender Results & Data Vital Signs (Past 12 Hours) Vital Signs Temp Pulse Resp BP Pulse Ox O2 Del Method 12/23/24 11:00 151/79 H 12/23/24 11:00 68 20 97 12/23/24 10:35 70 12/23/24 10:31 141/75 H 12/23/24 10:30 65 19 12/23/24 10:00 68 16 97 12/23/24 10:00 160/89 H 12/23/24 09:47 161/86 H 12/23/24 09:33 70 16 98 12/23/24 09:12 71 18 98 12/23/24 09:05 163/94 H 12/23/24 09:03 71 10 L 12/23/24 09:00 76 17 12/23/24 08:39 76 16 12/23/24 07:30 136/73 12/23/24 07:30 77 15 97 12/23/24 07:09 74 17 94 12/23/24 07:01 159/81 H 12/23/24 07:01 159/81 H 12/23/24 06:31 72 12/23/24 05:45 36.7 C 76 20 150/87 H 97 Room Air Laboratory Results 12/23/24 06:15 12/23/24 06:15
--- NOTE | 2024-12-23 12:37 | Electrocardiogram Report ---
Test Reason : Blood Pressure : */* mmHG Vent. Rate : 70 BPM Atrial Rate : 70 BPM P-R Int : 214 ms QRS Dur : 96 ms QT Int : 406 ms P-R-T Axes : 46 -16 -11 degrees QTcB Int : 438 ms Sinus rhythm with 1st degree A-V block Inferior infarct (cited on or before 21-Sep-2024) Anterior infarct , age undetermined T wave abnormality, consider lateral ischemia Abnormal ECG When compared with ECG of 23-Sep-2024 06:19, Premature ventricular complexes are no longer Present Inverted T waves have replaced nonspecific T wave abnormality in Lateral leads Confirmed by Ryland Michelle ([id number]) on 12/23/2024 12:37:26 PM Referred By: REFERRED SELF Confirmed By: Ryland Michelle
[2024-12-23] MEDS: NON-FORMULARY MEDICATION (Insulin Glargine [Basaglar Kwikpen U-100 Insulin] 100 unit/mL (3 SQ SCH (12:57)
[2024-12-23] MEDS: INSULIN ASPART PER UNIT CHARGE SQ SCH (12:57)
[2024-12-23] MEDS: LANTUS PER UNIT CHARGE SQ SCH (13:11)
[2024-12-23] MEDS ORDERED: MoRPHine SULFATE 2 MG/ML CARP IV PRN (14:49)
[2024-12-23] MEDS ORDERED: ACETAMINOPHEN 325 MG TAB PO PRN (14:49)
--- NOTE | 2024-12-23 15:56 | Pharmacy Report ---
Pharmacy PK ABX Note - Date of Service December 23, 2024 - Assessment and Plan Assessment 69 year old M receiving vancomycin and cefepime for treatment of chest wall abscess. Blood and chest cultures pending. ESRD on iHD. Day #1 of antimicrobial therapy. Plan Vancomycin * Loading dose: 1500 mg IV x 1 * Given ESRD on iHD, will dose vancomycin by levels around HD. * Started dialysis this afternoon ~ 1400 so anticipate that ~30-40% of the loading dose will be removed if tolerates a standard session. Will obtain a random level early tomorrow AM to guide further dosing/supplement. Pharmacy will continue to follow and will adjust dose/frequency as necessary. Thank you.
[2024-12-23] MEDS: CEFEPIME 1000MG 1,000 MG/10 ML SYR IV SCH (20:25)
[2024-12-24] MEDS: VANCOMYCIN 750 MG in SODIUM CHLORIDE 0.9% 250 ML IV ONE (09:19)
[2024-12-24] MEDS: DOLUTEGRAVIR PO SCH (09:22)
[2024-12-24] MEDS: RILPIVIRINE PO SCH (09:22)
--- NOTE | 2024-12-24 10:56 | Hospitalist Progress Note ---
Date of Service December 24, 2024 Assessment & Plan (1) Abscess of chest wall: Plan: Infected sebaceous cyst right upper chest wall near to the axilla Possible abscess with spreading cellulitis Blood cultures were taken and he has been started with intravenous vancomycin and cefepime by the handkerchief folder and will be continued for now Appreciate surgery input and recommendation for possible I&D today No signs of sepsis Status post I&D and packing by surgery team yesterday Awaiting results of culture and sensitivity The patient remains free from any symptoms (2) ESRD (end stage renal disease) on dialysis: Plan: Has right sided port for dialysis Will have dialysis today as the catheter site remains intact Appreciate nephrology input and recommendation Will have dialysis on Wednesday (3) Hypertension: Plan: Blood pressure remains mildly elevated at 159/81 Will continue current medications (4) DM type 2 (diabetes mellitus, type 2): Plan: He has been on insulin,we will continue He will be put on sliding scale insulin coverage while in the hospital as well (5) CAD (coronary artery disease): Plan: History of cardiac stent placement EKG remains unremarkable denies any cardiac symptoms Will continue cardiac medications Plan Other significant medical conditions remained stable Will continue outpatient medications as he has been taking DVT prophylaxis Subcu heparin CODE STATUS Full Admission and Anticipated Discharge Date Admission Date: December 23, 2024 Subjective 12/24/2024 The patient was seen and examined in medical telemetry unit He is status post I&D of chest wall abscess Denies any significant symptoms Review of Systems Review of Systems: All systems reviewed and unremarkable except as noted below. Physical Exam Physical Exam: Lying in bed without any acute distress Constitutional: average body habitus; not ill appearing Eyes: PERRL, conjunctivae normal, anicteric sclerae ENMT: external ear and nose normal, oropharynx normal Neck: trachea midline, no thyromegaly Respiratory: no respiratory distress Auscultation: lungs clear to auscultation bilaterally Cardiovascular: Rate/Rhythm: regular rate and regular rhythm; not tachycardic Heart Sounds: normal S1 and normal S2; no murmur Extremities: no edema Chest (Breasts): Additional Comments: Right upper chest wall abscess has been drained and has packing with dressing as per surgery Gastrointestinal (Abdomen): Inspection/Auscultation: normal bowel sounds; abdomen not distended Percussion/Palpation: abdomen soft; abdomen nontender Neurologic: normal touch/pain/proprioception and moves all extremities; no focal motor deficits Psychiatric: A+Ox3, euthymic affect Lymphatic: no cervical or axillary lymphadenopathy Results & Data Results & Data Vital Signs (Past 12 Hours) Vital Signs Temp Pulse Pulse Resp BP Pulse Ox O2 Del Method 12/24/24 07:24 36.5 C 68 18 109/63 97 Room Air 12/24/24 07:09 72 12/23/24 23:14 36.4 C L 73 18 123/61 96 Room Air Medications Administered Current Inpatient Medications Acetaminophen (Acetaminophen 325 Mg Tab) 325 mg PO Q4H PRN PRN Reason: Mild Pain (Scale 1, 2, 3) Stop: 01/22/25 14:48 Aspirin ([facility]in 81 Mg [facility]ab) [facility] [place]: 01/22/25 11:29 Last Admin: 12/24/24 09:18 Dose: 81 mg Atorvastatin Calcium (Atorvastatin 40 Mg Tab) 40 mg PO QAM [facility] Stop: 01/22/25 11:29 Last Admin: 12/24/24 09:17 Dose: 40 mg Dextrose (Dextrose 50% 50 Ml Syringe) 25 - 50 ml IV UD PRN; Protocol PRN Reason: Hypoglycemia Protocol Stop: 01/22/25 10:53 Dolutegravir/Rilpivirine (Dolutegravir/Rilpivirine 50/25mg Tab [Patient Own Med]) 1 tab PO DAILY [facility] Stop: 01/23/25 08:59 Last Admin: 12/24/24 09:22 Dose: 1 tab Fluoxetine HCl (Fluoxetine Hcl 20 Mg Cap) 20 mg PO QAM [facility] Stop: 01/22/25 11:23 Last Admin: 12/24/24 09:18 Dose: 20 mg Glucagon (Glucagon For Inj 1 Mg Vial) 1 mg SQ UD PRN; Protocol PRN Reason: Hypoglycemia Protocol Stop: 01/22/25 10:53 Glucose (Glucose 40% Gel 15 Gm Tube) 15 - 30 gm PO UD PRN; Protocol PRN Reason: Hypoglycemia Protocol Stop: 01/22/25 10:53 Glucose (Glucose 10 Tab/Tube) 4 - 8 tab PO UD PRN; Protocol PRN Reason: Hypoglycemia Protocol Stop: 01/22/25 10:53 Heparin Sodium (Porcine) (Heparin Sod 5,000 Unit/0.5 Ml Vial) 5,000 units SQ Q12 [facility] Stop: 01/22/25 08:59 Last Admin: 12/24/24 09:20 Dose: 5,000 units Cefepime HCl (Maxipime 2000mg) 1,000 mg in 10 mls @ 5 mls/min IV Q12H [facility]; Protocol Stop: 12/25/24 20:59 Last Admin: 12/24/24 09:18 Dose: 5 mls/min Insulin Aspart (Insulin Aspart Per Unit Charge) 0 units SC ACHS [facility] Stop: 01/22/25 09:14 Last Admin: 12/24/24 09:32 Dose: 5 units Insulin Glargine (Lantus Per Unit Charge) 10 units SQ DAILY [facility] Stop: 01/22/25 11:23 Last Admin: 12/24/24 09:32 Dose: 10 units Levothyroxine Sodium (Levothyroxine Sodium 25 Mcg Tablet) [facility]: 01/22/25 11:23 Last Admin: 12/24/24 05:44 Dose: 25 mcg Metoprolol Succinate (Metoprolol Succ 25mg Ext Rel Tab) 25 mg PO QAM [facility] Stop: 01/22/25 11:23 Last Admin: 12/24/24 09:17 Dose: 25 mg Miscellaneous (Carbohydrates For Hypoglycemia ) 15 - 30 gm PO UD PRN PRN Reason: Hypoglycemia Protocol Stop: 01/22/25 10:53 Miscellaneous Information (Vancomycin Consult Active) 1 each N/A UD PRN PRN Reason: Consult Stop: 01/22/25 11:05 Morphine Sulfate (Morphine Sulfate 2 Mg/Ml Carp) 2 mg IV Q3H PRN PRN Reason: Moderate Pain (Scale 4, 5, 6) Stop: 01/06/25 14:48 Multivitamins (Multivitamin Tab) [facility] [place]: 01/22/25 11:29 Last Admin: 12/24/24 09:17 Dose: 1 tab Nifedipine (Nifedipine Extended Rel 30 Mg Tabcr) 30 mg PO DAILY [facility] Stop: 01/22/25 11:29 Last Admin: 12/24/24 09:17 Dose: 30 mg Prasugrel (Prasugrel Tab 10 Mg Tab) 10 mg PO QAM [facility] Stop: 01/22/25 11:23 Last Admin: 12/24/24 09:18 Dose: 10 mg Sevelamer Carbonate (Sevelamer Carbonate 800 Mg Tab) 800 mg PO TIDM [facility] Stop: 01/22/25 11:59 Last Admin: 12/24/24 09:18 Dose: 800 mg Vitamin D (Cholecalciferol 25 Mcg (1000 Units) Tab) 25 mcg PO QAM [facility] Stop: 01/22/25 11:23 Last Admin: 12/24/24 09:18 Dose: 25 mcg (3) Hypertension Hypertension type: unspecified Qualified Code(s): I10 - Essential (primary) hypertension (4) DM type 2 (diabetes mellitus, type 2) Diabetes mellitus jail insulin use: with technician terminal and repeater use Diabetes mellitus complication status: with kidney complications Diabetes mellitus complication detail: with chronic kidney disease Chronic kidney disease stage: on chronic dialysis Qualified Code(s): E11.22 - Type 2 diabetes mellitus with diabetic chronic kidney disease; N18.6 - End stage renal disease; Z79.4 - buttermaker (current) use of insulin; Z99.2 - Dependence on renal dialysis (5) CAD (coronary artery disease) Coronary Disease-Associated Artery/Lesion type: [place] artery [place] vs. transplanted heart: [place] heart Associated angina: unspecified whether angina present Qualified Code(s): I25.10 - Atherosclerotic heart disease of [place] coronary artery without angina pectoris
--- NOTE | 2024-12-24 11:29 | Pharmacy Report ---
Pharmacy PK ABX Note - Date of Service December 24, 2024 - Assessment and Plan Assessment 12/24: Day #2 vancomycin/cefepime for chest wall abscess. Dialyzed yesterday afternoon with plan for next HD on . 12/23: 69 year old M receiving vancomycin and cefepime for treatment of chest wall abscess. Blood and chest cultures pending. ESRD on iHD. Day #1 of antimicrobial therapy. Plan Vancomycin * S/p vancomycin 1500mg IV X 1 * iHD yesterday afternoon for 3.5h. Noted pt does make residual urine. * Random vancomycin level this AM 9.8mcg/mL which is subtherapeutic and safe to re-dose. Vancomycin 750mg (10mg/kg) IV X 1 this AM. Will repeat a random level tomorrow AM given some residual renal function and re-dose with vancomycin if less than 20mcg/mL. Pharmacy will continue to follow and will adjust dose/frequency as necessary. Thank you.
--- NOTE | 2024-12-24 13:46 | Surgery Progress Note ---
<Statement entered by Claudia Nguyen, DO - 12/24/24 15:16> I have seen and examined this patient this a.m. with the surgical PA. The dressing and packing were changed. I agree with this plan Date of Service December 24, 2024 Assessment & Plan (1) Abscess of chest wall: Plan: s/p bedside I&D of right chest wall abscess yesterday with dr. nguyen recommend daily local wound care to site, pack daily with 1/4" plain packing, cover with 4x4 gauze, and tape from our standpoint he could be discharged when o k with medicine cultures growing strep anginosus. complete course of abx at home for abscess he doesn't need to f/u with us, he can f/u in the wound care center if he wishes or PCP Admission and Anticipated Discharge Date Admission Date: December 23, 2024 Subjective Patient doing well. With some pain at abscess site with changing of dressing. Physical Exam Physical Exam: awake/alert, no distress Skin: right chest wall abscess with some residual erythema noted, no significant drainage noted other than what was on the packing. tender to palpation Results & Data Vital Signs (Past 12 Hours) Vital Signs Temp Pulse Pulse Resp BP BP Pulse Ox 12/24/24 11:58 97.5 F L 72 18 146/75 H 98 12/24/24 07:24 97.7 F 68 18 109/63 97 12/24/24 07:09 72 O2 Del Method 12/24/24 11:58 Room Air 12/24/24 07:24 Room Air 12/24/24 07:09 PG Care Time/CCT Total # of Minutes Spent Total Time Spent with Patient: Total time spent is greater than 50% in coordination of care (as documented) at patient's floor/unit and/or counseling patient: Coding Level of Care Code 06740 SUB INP/OBS CARE 10/07MIN Diagnoses Abscess of chest wall L02.213
[2024-12-25 07:43] LABS: Basophils # (auto) 0.02 K/uL (0.00-0.20); Basophils % (auto) 0.4 %; Eosinophils # (auto) 0.14 K/uL (0.00-0.50); Eosinophils % (auto) 3.1 %; Hematocrit (blood only) 39.3 % (42.0-52.0); Immature Granulocytes # (auto) 0.02 K/uL (0.01-0.20); Immature Granulocytes % (auto) 0.4 %; Lymphocytes # (auto) 1.46 K/uL (1.20-3.40); Lymphocytes % (auto) 31.9 %; Mean Corpuscular Hemoglobin 27.8 pg (25.0-34.0); Mean Corpuscular Hgb Conc 33.1 g/dL (32.0-36.0); Mean Platelet Volume 8.8 fL (9.4-12.4); Monocytes # (auto) 0.42 K/uL (0.11-0.59); Monocytes % (auto) 9.2 %; Neutrophils # (auto) 2.52 K/uL (1.40-6.50); Platelet Count 158 K/uL (130-400); RDW Coefficient of Variation 14.3 % (11.5-14.5); RDW Standard Deviation 43.5 fL (36.4-46.3); Red Blood Count 4.68 M/uL (4.70-6.10); White Blood Count 4.58 K/ul (4.8-10.8)
[2024-12-25 07:58] LABS: BUN Creatinine Ratio 10.1 (10-20); Calcium 9.9 mg/dl (8.6-10.3); Creatinine Clr Calc Pharmacy 19.1 ml/min; Potassium 4.8 mmol/L (3.5-5.1)
--- NOTE | 2024-12-25 09:10 | Pharmacy Report ---
Pharmacy PK ABX Note - Date of Service December 25, 2024 - Assessment and Plan Assessment 12/25: Day #3 vancomycin/cefepime. Chest culture growing Staphylococcus aureus and Streptococcus anginosus. Sensitivities pending. 12/24: Day #2 vancomycin/cefepime for chest wall abscess. Dialyzed yesterday afternoon with plan for next HD on . 12/23: 69 year old M receiving vancomycin and cefepime for treatment of chest wall abscess. Blood and chest cultures pending. ESRD on iHD. Day #1 of antimicrobial therapy. Plan Vancomycin * S/p vancomycin 1500mg IV X 1 on 12/23/24 * iHD 12/23/24 afternoon for 3.5h. Noted pt does make residual urine. * Random vancomycin level this AM 12.6 mcg/mL, safe to re-dose. Vancomycin 750mg (10mg/kg) IV X 1 again this AM. Will repeat a random level tomorrow AM given some residual renal function and re-dose following hemodialysis. Pharmacy will continue to follow and will adjust dose/frequency as necessary. Thank you.
[2024-12-25] MEDS: VANCOMYCIN 750 MG in SODIUM CHLORIDE 0.9% 250 ML IV ONE (10:27)
--- NOTE | 2024-12-25 10:36 | Surgery Progress Note ---
<Statement entered by Claudia Nguyen, DO - 12/25/24 13:26> I have seen and examined this patient with the surgical PA and I agree with this plan. Date of Service December 25, 2024 Assessment & Plan (1) Abscess of chest wall: Plan: s/p bedside I&D of right chest wall abscess 12/[address] nguyen recommend daily local wound care to site, pack daily with 1/4" plain packing, cover with 4x4 gauze, and tape. pt believes he may be able to find some help with this at home from our standpoint he could be discharged when o k with medicine cultures growing strep anginosus. complete course of abx at home for abscess he doesn't need to f/u with us, he can f/u in the wound care center if he wishes or PCP Admission and Anticipated Discharge Date Admission Date: December 23, 2024 Subjective Patient doing well. Abscess site pain improving, does have some discomfort with dressing changes. no active drainage. Physical Exam Physical Exam: awake/alert, no distress Respiratory: normal respiratory effort Chest (Breasts): Additional Comments: R chest abscess with some surrounding erythema, packing removed, no significant drainage noted on packing. some tenderness with dressing change. Results & Data Vital Signs (Past 12 Hours) Vital Signs Temp Pulse Pulse Resp BP BP Pulse Ox 12/25/24 07:51 97.7 F 64 12 137/78 97 12/25/24 05:42 74 12/25/24 03:28 97.9 F 68 20 110/62 97 12/24/24 23:47 97.7 F 69 18 108/65 96 O2 Del Method 12/25/24 07:51 Room Air 12/25/24 05:42 12/25/24 03:28 Room Air 12/24/24 23:47 Room Air PG Care Time/CCT Total # of Minutes Spent Total Time Spent with Patient: Total time spent is greater than 50% in coordination of care (as documented) at patient's floor/unit and/or counseling patient: Coding Level of Care Code 94071 SUB INP/OBS CARE 10/07MIN Diagnoses Abscess of chest wall L02.213
--- NOTE | 2024-12-25 11:12 | Hospitalist Progress Note ---
Date of Service December 25, 2024 Assessment & Plan (1) Abscess of chest wall: Plan: Infected sebaceous cyst right upper chest wall near to the axilla Possible abscess with spreading cellulitis Blood cultures were taken and he has been started with intravenous vancomycin and cefepime by the resident services coordinator and will be continued for now Appreciate surgery input and recommendation for possible I&D today No signs of sepsis Status post I&D and packing by surgery team yesterday Awaiting results of culture and sensitivity The patient remains free from any symptoms The culture grew Streptococcus anginosus and there is pansensitive Will give oral Keflex to continue for 10 days in total Dressing will be done as per surgery instruction He will be discharged home this afternoon and will have usual dialysis on Wednesday (2) ESRD (end stage renal disease) on dialysis: Plan: Has right sided port for dialysis Will have dialysis today as the catheter site remains intact Appreciate nephrology input and recommendation Will have dialysis on Wednesday (3) Hypertension: Plan: Blood pressure remains mildly elevated at 159/81 Will continue current medications (4) DM type 2 (diabetes mellitus, type 2): Plan: He has been on insulin,we will continue He will be put on sliding scale insulin coverage while in the hospital as well (5) CAD (coronary artery disease): Plan: History of cardiac stent placement EKG remains unremarkable denies any cardiac symptoms Will continue cardiac medications Plan Other significant medical conditions remained stable Will continue outpatient medications as he has been taking DVT prophylaxis Subcu heparin CODE STATUS Full Admission and Anticipated Discharge Date Admission Date: December 23, 2024 Subjective 12/24/2024 The patient was seen and examined in medical telemetry unit He is status post I&D of chest wall abscess Denies any significant symptoms 12/25/2024 Patient was seen and examined in medical telemetry unit He has been feeling much better and denies any significant symptoms No fever and chills and recent surgical site is looking good Review of Systems Review of Systems: All systems reviewed and unremarkable except as noted below. Physical Exam Physical Exam: Lying in bed without any acute distress Constitutional: average body habitus; not ill appearing Eyes: PERRL, conjunctivae normal, anicteric sclerae ENMT: external ear and nose normal, oropharynx normal Neck: trachea midline, no thyromegaly Respiratory: no respiratory distress Auscultation: lungs clear to auscultation bilaterally Cardiovascular: Rate/Rhythm: regular rate and regular rhythm; not tachycardic Heart Sounds: normal S1 and normal S2; no murmur Extremities: no edema Gastrointestinal (Abdomen): Inspection/Auscultation: normal bowel sounds; abdomen not distended Percussion/Palpation: abdomen soft; abdomen nontender Neurologic: normal touch/pain/proprioception and moves all extremities; no focal motor deficits Psychiatric: A+Ox3, euthymic affect Lymphatic: no cervical or axillary lymphadenopathy Results & Data Results & Data Vital Signs (Past 12 Hours) Vital Signs Temp Pulse Pulse Resp BP BP Pulse Ox 12/25/24 07:51 36.5 C 64 12 137/78 97 12/25/24 05:42 74 12/25/24 03:28 36.6 C 68 20 110/62 97 12/24/24 23:47 36.5 C 69 18 108/65 96 O2 Del Method 12/25/24 07:51 Room Air 12/25/24 05:42 12/25/24 03:28 Room Air 12/24/24 23:47 Room Air Laboratory Results Short CBC 12/25/24 Range/Units 07:26 WBC 4.58 L (4.8-10.8) K/ul Hgb 13.0 L (14.0-18.0) g/dl Hct 39.3 L (42.0-52.0) % Plt Count 158 (130-400) K/uL BMP 12/25/24 07:26 Sodium 136 Potassium 4.8 Chloride 107 Carbon Dioxide 22 BUN 36 H Creatinine 3.55 H Glucose 149 H Calcium 9.9 Medications Administered Current Inpatient Medications Acetaminophen (Acetaminophen 325 Mg Tab) 325 mg PO Q4H PRN PRN Reason: Mild Pain (Scale 1, 2, 3) Stop: 01/22/25 14:48 Aspirin (Aspirin 81 Mg Ectab) [address] [facility] Stop: 01/22/25 11:29 Last Admin: 12/25/24 08:08 Dose: 81 mg Atorvastatin Calcium (Atorvastatin 40 Mg Tab) [address] [facility] Stop: 01/22/25 11:29 Last Admin: 12/25/24 08:07 Dose: 40 mg Dextrose (Dextrose 50% 50 Ml Syringe) 25 - 50 ml IV UD PRN; Protocol PRN Reason: Hypoglycemia Protocol Stop: 01/22/25 10:53 Dolutegravir/Rilpivirine (Dolutegravir/Rilpivirine 50/25mg Tab [Patient Own Med]) 1 tab PO DAILY [facility] Stop: 01/23/25 08:59 Last Admin: 12/25/24 08:11 Dose: 1 tab Fluoxetine HCl (Fluoxetine Hcl 20 Mg Cap) 20 mg PO QAM [facility] Stop: 01/22/25 11:23 Last Admin: 12/25/24 08:07 Dose: 20 mg Glucagon (Glucagon For Inj 1 Mg Vial) 1 mg SQ UD PRN; Protocol PRN Reason: Hypoglycemia Protocol Stop: 01/22/25 10:53 Glucose (Glucose 40% Gel 15 Gm Tube) 15 - 30 gm PO UD PRN; Protocol PRN Reason: Hypoglycemia Protocol Stop: 01/22/25 10:53 Glucose (Glucose 10 Tab/Tube) 4 - 8 tab PO UD PRN; Protocol PRN Reason: Hypoglycemia Protocol Stop: 01/22/25 10:53 Heparin Sodium (Porcine) (Heparin Sod 5,000 Unit/0.5 Ml Vial) 5,000 units SQ Q12 [facility] Stop: 01/22/25 08:59 Last Admin: 12/25/24 08:13 Dose: 5,000 units Cefepime HCl (Maxipime 2000mg) 1,000 mg in 10 mls @ 5 mls/min IV Q24H [facility]; Protocol Stop: 12/25/24 20:59 Insulin Aspart (Insulin Aspart Per Unit Charge) 0 units SC ACHS [facility] Stop: 01/22/25 09:14 Last Admin: 12/25/24 08:38 Dose: 6 units Insulin Glargine (Lantus Per Unit Charge) 10 units SQ DAILY [facility] Stop: 01/22/25 11:23 Last Admin: 12/25/24 08:39 Dose: 10 units Levothyroxine Sodium (Levothyroxine Sodium 25 Mcg Tablet) 25 mcg PO DAILYBB [facility] Stop: 01/22/25 11:23 Last Admin: 12/25/24 05:40 Dose: 25 mcg Metoprolol Succinate (Metoprolol Succ 25mg Ext Rel Tab) 25 mg PO QAM [facility] Stop: 01/22/25 11:23 Last Admin: 12/25/24 08:07 Dose: 25 mg Miscellaneous (Carbohydrates For Hypoglycemia ) 15 - 30 gm PO UD PRN PRN Reason: Hypoglycemia Protocol Stop: 01/22/25 10:53 Miscellaneous Information (Vancomycin Consult Active) 1 each N/A UD PRN PRN Reason: Consult Stop: 01/22/25 11:05 Morphine Sulfate (Morphine Sulfate 2 Mg/Ml Carp) 2 mg IV Q3H PRN PRN Reason: Moderate Pain (Scale 4, 5, 6) Stop: 01/06/25 14:48 Multivitamins (Multivitamin Tab) 1 tab PO QAM [facility] Stop: 01/22/25 11:29 Last Admin: 12/25/24 08:07 Dose: 1 tab Nifedipine (Nifedipine Extended Rel 30 Mg Tabcr) 30 mg PO DAILY [facility] Stop: 01/22/25 11:29 Last Admin: 12/25/24 08:07 Dose: 30 mg Prasugrel (Prasugrel Tab 10 Mg Tab) 10 mg PO QAM [facility] Stop: 01/22/25 11:23 Last Admin: 12/25/24 08:07 Dose: 10 mg Sevelamer Carbonate (Sevelamer Carbonate 800 Mg Tab) 800 mg PO TIDM [facility] Stop: 01/22/25 11:59 Last Admin: 12/25/24 08:07 Dose: 800 mg Vitamin D (Cholecalciferol 25 Mcg (1000 Units) Tab) 25 mcg PO QAM [facility] Stop: 01/22/25 11:23 Last Admin: 12/25/24 08:08 Dose: 25 mcg (3) Hypertension Hypertension type: unspecified Qualified Code(s): I10 - Essential (primary) hypertension (4) DM type 2 (diabetes mellitus, type 2) Diabetes mellitus long-term insulin use: with terminal operator use Diabetes mellitus complication status: with kidney complications Diabetes mellitus complication detail: with chronic kidney disease Chronic kidney disease stage: on chronic dialysis Qualified Code(s): E11.22 - Type 2 diabetes mellitus with diabetic chronic kidney disease; N18.6 - End stage renal disease; Z79.4 - terminal operator (current) use of insulin; Z99.2 - Dependence on renal dialysis (5) CAD (coronary artery disease) Coronary Disease-Associated Artery/Lesion type: [place] artery [place] vs. transplanted heart: [place] heart Associated angina: unspecified whether angina present Qualified Code(s): I25.10 - Atherosclerotic heart disease of [place] coronary artery without angina pectoris
[2024-12-25 11:13] VITALS: O2SAT 95
[2024-12-25] MEDS: cephALEXin 500 MG CAP PO SCH (12:21)
[2024-12-25] MEDS ORDERED: CEFEPIME 1000MG 1,000 MG/10 ML SYR IV SCH (13:00)
[2024-12-25 15:39] VITALS: BP 105/58; PULSE 72; RESP 18; TEMP 97.7
--- NOTE | 2024-12-26 07:19 | Discharge Summary ---
Date of Service December 26, 2024 Admission HPI Per Admitting Provider He is a 69-year-old male with significant past medical history of end-stage renal disease on hemodialysis, hypertension, CAD status post stent in 2018, diabetes type 2 on insulin and hyperlipidemia apparently has been complaining of a small lump/sebaceous cyst involving the right upper chest wall near the axilla for the last 2 weeks. The cyst was tried to aspirate by her nurse in the clinic about 10 days ago and only a small amount of white greasy material came out and the patient tried to squeeze it out without much benefit. The swelling has been getting red with spreading redness and tenderness for the last 2 to 3 days and he has been taking doxycycline as an outpatient without any improvement. He went for dialysis today and was sent in to take care of his abscess and go from there. He denies any fever and or chills, nausea or vomiting, and no other significant symptoms. Only issue is his some pain involving the abscess with a spreading cellulitis. He was seen by his surgery and will do I&D and was started with intravenous antibiotic by vp compliance after taking blood cultures. He there is of the admission will be admitted to [facility] for continuation of care. Admission Exam Per Admitting Provider Physical Exam: Lying in bed without any acute distress Constitutional: average body habitus; not ill appearing Eyes: PERRL, conjunctivae normal, anicteric sclerae ENMT: external ear and nose normal, oropharynx normal Neck: trachea midline, no thyromegaly Respiratory: no respiratory distress Auscultation: lungs clear to auscultation bilaterally Cardiovascular: Rate/Rhythm: regular rate and regular rhythm; not tachycardic Heart Sounds: normal S1 and normal S2; no murmur Extremities: no edema Gastrointestinal (Abdomen): Inspection/Auscultation: normal bowel sounds; abdomen not distended Percussion/Palpation: abdomen soft; abdomen nontender Musculoskeletal: No acute arthritis involving any of the joint Neurologic: normal touch/pain/proprioception and moves all extremities; no focal motor deficits Psychiatric: A+Ox3, euthymic affect Lymphatic: no cervical or axillary lymphadenopathy Principal Diagnosis Right upper chest wall abscess status post I&D, incisional disease on hemodialysis Discharge Exam Lying in bed without any acute distress Constitutional average body habitus; not ill appearing Eyes PERRL, conjunctivae normal, anicteric sclerae ENMT external ear and nose normal, oropharynx normal Neck trachea midline, no thyromegaly Respiratory no respiratory distress Auscultation: lungs clear to auscultation bilaterally Cardiovascular Rate/Rhythm: regular rate and regular rhythm; not tachycardic Heart Sounds: normal S1 and normal S2; no murmur Extremities: no edema Gastrointestinal (Abdomen) Inspection/Auscultation: normal bowel sounds; abdomen not distended Percussion/Palpation: abdomen soft; abdomen nontender Neurologic normal touch/pain/proprioception and moves all extremities; no focal motor deficits Psychiatric A+Ox3, euthymic affect Lymphatic no cervical or axillary lymphadenopathy Discharge Data Allergies Allergy/AdvReac Type Severity Reaction Status Date / Time No Known Allergies Allergy Verified 09/21/24 09:20 Consultations 12/23/24 07:23 Consult General Surgery Stat 12/23/24 08:11 ED Decision to Admit Stat 12/24/24 07:41 Consult Nephrology Routine Hospital Course (1) Abscess of chest wall: Infected sebaceous cyst right upper chest wall near to the axilla Possible abscess with spreading cellulitis Blood cultures were taken and he has been started with intravenous vancomycin and cefepime by the vp compliance and will be continued for now Appreciate surgery input and recommendation for possible I&D today No signs of sepsis Status post I&D and packing by surgery team yesterday Awaiting results of culture and sensitivity The patient remains free from any symptoms The culture grew Streptococcus anginosus and there is pansensitive Will give oral Keflex to continue for 10 days in total Dressing will be done as per surgery instruction He will be discharged home this afternoon and will have usual dialysis on Wednesday (2) ESRD (end stage renal disease) on dialysis: Has right sided port for dialysis Will have dialysis today as the catheter site remains intact Appreciate nephrology input and recommendation Will have dialysis on Wednesday (3) Hypertension: Blood pressure remains mildly elevated at 159/81 Will continue current medications (4) DM type 2 (diabetes mellitus, type 2): He has been on insulin,we will continue He will be put on sliding scale insulin coverage while in the hospital as well (5) CAD (coronary artery disease): History of cardiac stent placement EKG remains unremarkable denies any cardiac symptoms Will continue cardiac medications Plan Other significant medical conditions remained stable Will continue outpatient medications as he has been taking DVT prophylaxis Subcu heparin CODE STATUS Full Total Time Total Time Spent Total Time Spent (In Minutes): 35 minutes Discharge Plan Discharge Items Patient Disposition: Home - Home Health Services Reason For Visit: RT UPPER CHEST WALL ABSCESS, ESRD ON HD Discharge Diagnosis: Right upper chest wall abscess status post I&D, incisional disease on hemodialysis Condition on Discharge: Good Activity: Resume your previous activity Non-emergency contact: Primary Care Provider Call non-emergency contact if: you have any medication questions and your symptoms worsen Follow-up/Referrals: Antonio Colon MD [Primary Care Provider] - (Date & Time 01/01/2025 12:20 PM Provider: Antonio Colon MD [facility] ) Diet: Dialysis Renal Addtl Attending Provider Instructions: Perform daily dressing changes to wound: please removal old dressing and packing. repack with 1/4 " gauze packing (cut to size), cover with 4x4, medipore tape call to schedule follow up in the wound care center: [address], [address], [place] [address] # [phone] Pending Studies at Discharge: No Stand-Alone Forms: My [facility] [employer], Smoking Cessation Medications and DC Order Prescriptions: New cephalexin 500 mg Capsule 500 mg PO BID Qty: 14 0RF Continued atorvastatin 40 mg tablet 40 mg PO QAM fluoxetine 20 mg capsule 20 mg PO QAM Juluca 50-25 mg tablet 1 tab PO QAM multivitamin Tablet 1 tab PO QAM Rx Instructions: otc unable to verify metoprolol succinate 25 mg tablet extended release 24 hr 25 mg PO QAM coenzyme Q10 [Co Q-10] 10 mg Capsule 10 mg PO DAILY Rx Instructions: otc unable to verify aspirin 81 mg Tablet,Delayed Release (Dr/Ec) 81 mg PO QAM Rx Instructions: otc unable to verify cholecalciferol (vitamin D3) [Vitamin D3] 25 mcg (1,000 unit) Capsule 25 mcg PO QAM Rx Instructions: otc unable to verify sevelamer carbonate 800 mg tablet 800 mg PO TIDM pantoprazole 40 mg tablet,delayed release (DR/EC) 40 mg PO UD Rx Instructions: 40 mg po bid. Per fill history 10/25/24 90 day supply directions are 1 tab po qam insulin glargine [Basaglar KwikPen U-100 Insulin] 100 unit/mL (3 mL) insulin pen 10 unit SUBCUT UD Rx Instructions: 10u subcut qam. last filled 08/29/24 136 day supply for 22units subcut in the morning prasugrel HCl 10 mg tablet 10 mg PO UD Rx Instructions: 10 mg po qam. last filled 07/22/24 90 day supply levothyroxine 25 mcg tablet 25 mcg PO UD Rx Instructions: 25 mcg po qam. last filled 09/22/24 12 day supply nifedipine 30 mg Tablet Extended Release 30 day PO DAILY Qty: 0 Fiasp FlexTouch U-100 Insulin 100 unit/mL (3 mL) insulin pen 10 unit SUBCUT TIDWMEAL Discontinued doxycycline hyclate 100 mg tablet 100 mg PO BID Discharge Orders: Discharge Order (Routine); Ordered 12/25/24 Ordered By: Ashwin Anders/Other Patient Handouts: High Blood Sugar (Hyperglycemia), Managing Type 2 Diabetes Admission Data Admit Date/Time: 12/23/24 08:47 Attending Provider: Ashwin Hampton Admit Provider: Ashwin Hampton Primary Care Provider: Antonio Colon Other Providers: Claudia Nguyen; Ashwin Hampton; Chikis Carvajal; [facility] [place]; [facility] [place] Other Interventions: Discharge Summary Assessment (RN) Last Done: 12/25/24 14:56
== END 2024-12-25 16:39 | disposition home health service (06) | DRG 602 ==
LOC: ED 05:41 → EDINP 08:47 → 2W 18:01

== ENCOUNTER 2025-04-11 09:38 | Inpatient (IN) ==
--- NOTE | 2025-04-11 10:57 | XRay Report ---
XR chest 1V portable CLINICAL HISTORY: weakness COMPARISON STUDY: 09/21/2024 FINDINGS: Stable mild cardiomegaly without pulmonary vascular congestion. Stable mild to moderate mona vation of the left hemidiaphragm. No consolidation or pleural effusion. No pneumothorax. IMPRESSION: No acute findings. ACT 112: Negative or not required by law. Electronically signed by: Bandar Thacker M.D. 04/11/2025 10:56 AM
[2025-04-11 11:04] LABS: Hematocrit (blood only) 30.3 % (42.0-52.0); Hemoglobin 10.3 g/dl (14.0-18.0); Mean Corpuscular Hemoglobin 28.8 pg (25.0-34.0); Mean Corpuscular Volume 84.6 fL (80.0-100.0); Platelet Count 132 K/uL (130-400); RDW Standard Deviation 44.5 fL (36.4-46.3); Red Blood Count 3.58 M/uL (4.70-6.10); White Blood Count 8.74 K/ul (4.8-10.8)
[2025-04-11 11:23] LABS: Immature Granulocytes # (auto) 0.04 K/uL (0.01-0.20); Immature Granulocytes % (auto) 0.5 %; Ovalocytes 1+; Polychromasia 1+; Tear Drop Cells 1+
[2025-04-11 11:29] LABS: Alanine Aminotransferase 18 U/L (7-52); Albumin Globulin Ratio 1.7 (0.9-2); Alkaline Phosphatase 98 U/L (34-104); Anion Gap 8 (3-11); Bilirubin,Total 1.1 mg/dl (0.2-1.0); Blood Urea Nitrogen 21 mg/dl (6-23); Calcium 10.2 mg/dl (8.6-10.3); Carbon Dioxide 25 mmol/L (21-32); Chloride 97 mmol/L (98-107); Creatinine Clr Calc Pharmacy 47.2 ml/min; Globulin 2.3 gm/dl (2.5-4.0); Glucose 355 mg/dl (70-99(Fasting)); Magnesium 1.3 mg/dl (1.7-2.4); Potassium 4.2 mmol/L (3.5-5.1); Sodium 130 mmol/L (136-145); Total Protein 6.1 gm/dl (6.0-8.3)
[2025-04-11 11:44] LABS: Thyroid Stimulating Hormone 2.813 uIu/ml (0.300-4.500)
[2025-04-11] MEDS: SODIUM CHLORIDE 0.9% 1,000 ML IV ONE (11:45)
[2025-04-11] MEDS: CEFEPIME 2000MG 2,000 MG/20 ML SYR IV STA (11:45)
[2025-04-11] MEDS: MAGNESIUM SULFATE / D5W 1 GM/100 ML BAG IV ONE (11:45)
[2025-04-11 12:00] LABS: Chlamydia pneumoniae PCR Not Detected (NotDetected); Coronavirus 229E PCR Not Detected (NotDetected); Coronavirus CoV-2 (COVID19)PCR Not Detected (NotDetected); Coronavirus HKU1 PCR Not Detected (NotDetected); Coronavirus NL63 PCR Not Detected (NotDetected); Coronavirus OC43PCR Not Detected (NotDetected); Human Metapneumovirus PCR Not Detected (NotDetected); Parainfluenza Virus 1 PCR Not Detected (NotDetected); Parainfluenza Virus 2 PCR Not Detected (NotDetected); Parainfluenza Virus 3 PCR DETECTED (NotDetected); Parainfluenza Virus 4 PCR Not Detected (NotDetected); Respiratory Syncytial VirusPCR Not Detected (NotDetected); Rhinovirus/Enterovirus PCR Not Detected (NotDetected)
--- NOTE | 2025-04-11 12:14 | CT Scan Report ---
CT head/brain wo con CLINICAL HISTORY: fall, chi. TECHNIQUE: Multiple axial CT images of the head were obtained without contrast. A dose lowering tech nique was utilized adhering to the principles of ALARA. CT DOSE: 625.8 mGy.cm COMPARISON: 10/30/2022 FINDINGS: No intracranial hemorrhage seen. No mass effect, midline shift, or hydrocephalus. There is a small right parietal scalp hematoma near the vertex. No skull fracture seen. There is mild mucosal thickening and a small amount of fluid at the right maxillary sinus. Otherwise the visualized paranas al sinuses and mastoid air cells are clear. IMPRESSION: 1. No acute intracranial findings. 2. Otherwise as described. ACT 112: Negative or not required by law. The above report was generated using voice recognition software. It may contain grammatical, syntax o r spelling errors. Electronically signed by: Bandar Thacker M.D. 04/11/2025 12:12 PM
[2025-04-11 12:44] LABS: Lipase < 3 U/L (11-82)
[2025-04-11] MEDS: SODIUM CHLORIDE 0.9% 1,000 ML IV SCH (12:45)
[2025-04-11] MEDS ORDERED: GLUCOSE 10 TAB/TUBE PO PRN (13:14)
[2025-04-11] MEDS ORDERED: GLUCOSE 40% GEL 15 GM TUBE PO PRN (13:14)
[2025-04-11] MEDS ORDERED: DEXTROSE 50% 50 ML SYRINGE IV PRN (13:14)
[2025-04-11] MEDS ORDERED: PHARMACY GLYCEMIC MGMT CONSULT PRN (13:14)
[2025-04-11] MEDS ORDERED: GLUCAGON FOR INJ 1 MG VIAL SQ PRN (13:14)
[2025-04-11] MEDS ORDERED: CARBOHYDRATES FOR HYPOGLYCEMIA PO PRN (13:14)
[2025-04-11 13:28] LABS: Appearance Urine Cloudy (Clear); Bacteria Urine Automated 3+ (None Seen); Cast Urine Automated 0-2 /lpf (0-2); Epithelial Cell Urine Auto 0-2 /hpf (0-2); Glucose Urine UA 3+ (Negative); RBC Urine Automated >20 /hpf (0-2); WBC Urine Automated >50 /hpf (0-5)
[2025-04-11] MEDS ORDERED: LANTUS PER UNIT CHARGE SC ONE (14:00)
[2025-04-11] MEDS: OPTIRAY 320 100ml IV ONE (14:04)
--- NOTE | 2025-04-11 14:13 | History & Physical Report ---
Date of Service April 11, 2025 Assessment & Plan (1) Chronic pancreatitis: (2) LBBB (left bundle branch block): (3) S/P kidney transplant: (4) DM type 2 (diabetes mellitus, type 2): (5) Immunosuppressed status: (6) HIV (human immunodeficiency virus infection): (7) CAD (coronary artery disease): (8) Pyelonephritis of transplanted kidney: Plan 70 yo male with pmhx of renal transplant (03/03/2025 at [facility], hx of dialysis, 03/15 admission for early 2A ACR treated with thymo/steroids, EBV R+, CMV risk intermediate (D+/R+). 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 #Acute Transplant Kidney Pyelonephritis #Immunocompromised State -CT abdomen/pelvis ordered by provider shows evidence of pyelonephritis of transplant kidney, and cystitis -discussed extensively with transfer center and [facility] renal transplant team, will stabilize patient here, discuss daily with transplant team at number below as transfer across state lines is very difficult -UA with 2+ leukocytes and extensive WBC along with imaging findings of pyelonephritis concerning, but creatinine at baseline not suggestive of graft rejection at this time per [facility] transplant team Plan: -start zosyn empirically for transplant kidney pyelonephritis given likely healthcare associated infection given 2 recent admissions -start LR maintenance fluids 80cc/hr for rest of day, stop NSS, LR likely safer in transplant -tacrolimus levels daily (discussed transplant team at [facility], do not need immediate results given frequent hospitalizations and their knowledge of the patient) -hold any nephrotoxic agents -transfer patient with any significant increase in creatinine, decompensation -f/u culture results, once culture data available and PO abx able to be used/hemodynamic stability achieved, consider discharge to [facility] for finishing workup -hold cellcept, continue tacrolimus 2g morning/1g evening, decrease prednisone to 5mg daily (per transplant nephrology team at [facility]) #HIV -viral load undetectable 03/22/2025 Plan: -f/u viral load, ordered -continue biktarvy #Chronic Pancreatitis -continue creon #Depression -continue fluoxetine #CAD s/p Stents #HFrecEF (EF 55%) -hold aspirin given pyelonephritis -hold atorvastatin given pyelonephritis -continue metoprolol succinate 25 mg daily -hold nifedipine due to relative hypotension #Severe Esophagitis -per EGD/EUS at [facility] Plan: -continue protonix PO bid per [facility] recs (8 weeks therapy total) #Hypomagnesemia -replenish #DM Type 2 -elevated glucose on arrival -no elevated AG Plan: -restart home lantus, SSI -pharmacy consult given transplant patient I spent a total of 90 minutes in direct patient care, including [id number] time with the patient and/or family, reviewing medical records, ordering and reviewing diagnostic tests, and coordinating care with other healthcare providers. This time includes: history taking, physical examination, medical decision making, counseling, ECG interpretation, imaging interpretation, lab interpretation, orders, and education, excluding time spent in the performance of separately billed services. History of Present Illness Chief Complaint: -fever Primary Care Provider: Antonio Colon MD 70 yo male with pmhx of renal transplant (03/03/2025 at [facility], hx of dialysis, 03/15 admission for early 2A ACR treated with thymo/steroids, EBV R+, CMV risk intermediate (D+/R+). 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 Had renal transplant on 03/03/2025, on prednisone 5 mg bid, MMF 1gram bid, prograf target 10-12, had early rejection on 03/15, admission on 03/26 for fevers: per admission note 03/26, severe erosive gastritis on EGD noted, PPI BID x8 weeks, MRCP then subsequent EUS for pancreatic mass with extensive varices noted throughout duodenum. In the ED, had xray and CT head that was unremarkable, given one dose of cefepime, admitted to medicine for further workup. Patient seen and examined at bedside. Patient not doing great today. States he woke up this more with fevers, chills, muscle aches. Does have some nausea and abdominal pain, which is chronic for him due to his pancreatitis. Did fall Wednesday and hit his head but per him workup was negative. Has had some other falls at home recently as well all of which he claims has been from clumsiness. Denies any urinary symptoms or concerns at this time Discussed case extensively with transplant team at [facility]. Transferring patient is incredibly complicated due to be across state lines. Discussed immunosuppression with Dr. Rodriguez (transplant office technician) at [facility], recommended the following: decreasing prednisone to 5mg daily, hold cellcept until culture data back, discharge on 500 bid cellcept, 2grams morning tacrolimus and 1gram at night (continue this during admission). Dr. Rodriguez requesting daily updates at [phone], will need 2 weeks of therapy on discharge minimum. Recommends discharge to [facility] after stabilization and culture data returns. Discussed case with hospital medicine director Dr. Ven[facility]as [facility] Pinto. Allergies Allergy/AdvReac Type Severity Reaction Status Date / Time No Known Allergies Allergy Verified 01/23/25 09:44 Home Medications Medication Instructions Recorded Confirmed Type atorvastatin 40 mg tablet 40 mg PO QAM 01/06/22 04/11/25 History fluoxetine 20 mg capsule 20 mg PO QAM 01/06/22 04/11/25 History multivitamin 1 tab PO QAM 01/06/22 04/11/25 History aspirin 81 mg tablet,delayed 81 mg PO QAM 12/30/23 04/11/25 History release metoprolol succinate 25 mg 25 mg PO QAM 12/30/23 04/11/25 History tablet,extended release 24 hr levothyroxine 25 mcg tablet 25 mcg PO DAILY 01/23/24 04/11/25 History nifedipine 30 mg tablet,extended 30 day PO DAILY ##0 03/20/24 04/11/25 History release insulin aspart 10 unit subcut TIDWMEAL 09/21/24 04/11/25 History (niacinamide)(U-100) 100 unit/mL(3 mL) subcutaneous pen (Fiasp FlexTouch U-100 Insulin) insulin glargine 100 unit/mL (3 15 unit subcut HS 12/23/24 04/11/25 History mL) subcutaneous pen (Lantus Solostar U-100 Insulin) pantoprazole 40 mg tablet,delayed 40 mg PO DAILY 12/23/24 04/11/25 History release CellCept 0 mg PO UD 04/11/25 04/11/25 History Prograf 0 mg PO DIRECTED 04/11/25 04/11/25 History bictegravir 50 mg-emtricitabine 1 tab PO DAILY 04/11/25 04/11/25 History 200 mg-tenofovir alafenam 25 mg tablet (Biktarvy) famotidine 20 mg tablet 20 mg PO DAILY PRN Acid Reflux 04/11/25 04/11/25 History sxzeob-vfggzxsz-wbzgofv 1 cap PO .WITH MEALS 04/11/25 04/11/25 History 24,000-76,000-120,000 unit capsule,delayed rel (Creon) loperamide 2 mg capsule 2 mg PO DIRECTED PRN loose 04/11/25 04/11/25 History stools prednisone 5 mg tablet 5 mg PO BID 04/11/25 04/11/25 History sulfamethoxazole 400 1 tab PO BID 04/11/25 04/11/25 History mg-trimethoprim 80 mg tablet tamsulosin 0.4 mg capsule 0.4 mg PO DAILY 04/11/25 04/11/25 History valganciclovir 450 mg tablet 450 mg PO DAILY 04/11/25 04/11/25 History (Valcyte) Past Med/Surg History Problem List (Updated 04/11/25 @ 15:30 by Kevin Lloyd MD) Pyelonephritis of transplanted kidney S/P kidney transplant Surgical wound, non healing (Acute) Abscess of chest wall (Acute) Abscess of chest wall Chronic pancreatitis Gastritis LBBB (left bundle branch block) Lymphadenopathy Prolonged QT interval End stage chronic kidney disease (Acute) Esophagitis (Acute) Chest pain (Acute) Duodenal ulcer Nephrolithiasis Acute blood loss anemia Upper GI bleed ESRD (end stage renal disease) on dialysis Acute GI bleeding (Acute) Hypertension Peripheral neuropathy Subungual hematoma of fourth toe of left foot Septic shock Hydronephrosis concurrent with and due to calculi of kidney and ureter Metabolic acidosis (Acute) Acute dehydration (Acute) Diarrhea (Acute) YASIR (acute kidney injury) (Acute) DM type 2 (diabetes mellitus, type 2) Immunosuppressed status (Acute) HIV (human immunodeficiency virus infection) CKD (chronic kidney disease) stage 4, GFR 15-29 ml/min History of left bundle branch block (LBBB) CAD (coronary artery disease) Acute hyperglycemia (Acute) Syncope (Acute) Medical History History of COVID-19 2020 Hypertension Diabetes mellitus Hx of sepsis hospitalized at [facility] January 2024 Port-A-Cath in place ESRD (end stage renal disease) on dialysis [facility] in [place] > Tues/ Thurs / Sat History of kidney stones Osteoarthritis Chronic lower back pain History of pancreatitis History of skin cancer KAW (hard of hearing) HLD (hyperlipidemia) History of myocardial infarction 2016 & 2019 Sleep apnea no device Diverticulosis GERD (gastroesophageal reflux disease) IBS (irritable bowel syndrome) Precancerous lesion rectal CAD (coronary artery disease) Per patient, stenting x 5 in 2016 and restenting of 1 vessel performed in July 2020 Depression HIV (human immunodeficiency virus infection) Surgical History EIC (epidermal inclusion cyst) (02/13/25) Skin, right upper chest, excision: in office procedure Dr. Silver - Inflamed epidermal cyst History of esophagogastroduodenoscopy (EGD) S/P ureteral stent placement History of removal of ureteral stent History of cystoscopy History of colonoscopy History of cholecystectomy History of cardiac catheterization 2016 - stents 2019 -- restenting x 1. [facility] Family History Mother Heart disease Social History Smoking Status: Former smoker Tobacco Type: Cigarettes Second Hand Exposure: No; Do You Dip or Chew Tobacco: No; Hx Alcohol Use: Yes Alcohol type: beer Alcohol Intake Frequency: Monthly or Less Hx Substance Use: No Preferred Language: Filipino Communication Ability: Effective Visual Impairment: Limited Hearing Ability: Hard of Hearing Machine Erector Required: No Beliefs That Will Affect Care: None Current Living Situation: Alone Current Living Situation Comment: home Feels Safe at Home: Yes Diet: regular caffeine: Yes Assistive Devices: Cane and Walker Review of Systems Review of Systems: -negative unless stated above Physical Exam Physical Exam: Gen: A&O 3 NAD, mild cachexia/sarcopenia noted HEENT: NCAT, EOMI, not icteric. External ears normal. No rhinorrhea. Moist mucous membranes. Neck: Supple, full range of motion, no observable masses, No meningeal sign. Lungs: No Respiratory distress. CV: RRR, no edema. Abdomen: trace tenderness in epigastric region MSK: No joint swelling, no redness. Skin: No rashes, petechiae, lesions. Normal color per patient. surgical site intact, no tenderness to palpation Neuro: Normal Gait, Grossly intact. Psych: Appropriate for situation. Results & Data Results & Data Vital Signs (Past 12 Hours) Vital Signs Temp Pulse Pulse Resp BP BP Pulse Ox 04/11/25 13:49 37.5 C 87 16 120/66 95 04/11/25 12:01 101 H 16 106/69 95 04/11/25 10:48 103 H 04/11/25 10:28 95 04/11/25 10:20 95 04/11/25 10:20 104 H 17 97/59 L 95 04/11/25 10:20 37.5 C 109 H 17 97/59 L 96 O2 Del Method 04/11/25 13:49 Room Air 04/11/25 12:01 Room Air 04/11/25 10:48 04/11/25 10:28 Room Air 04/11/25 10:20 Room Air 04/11/25 10:20 Room Air 04/11/25 10:20 Room Air Laboratory Results -personally reviewed, creatinine 1.37 at baseline, Mg of 1.3 replenished, UA suggestive of infectious process Medications Administered Sodium Chloride (Nss) 1,000 mls @ 125 mls/hr IV .Q8H MOSHE Stop: 04/14/25 11:29 Last Infusion: 04/11/25 15:11 Dose: 125 mls/hr Documented By: Admin: 04/11/25 12:45 Dose: 125 mls/hr Documented By: SHAINA (4) DM type 2 (diabetes mellitus, type 2) 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 use Diabetes mellitus complication status: with kidney complications Diabetes mellitus complication detail: with chronic kidney disease Chronic kidney disease stage: on chronic dialysis Qualified Code(s): E11.22 - Type 2 diabetes mellitus with diabetic chronic kidney disease; N18.6 - End stage renal disease; 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 transplanted heart: [place] heart Associated angina: unspecified whether angina present Qualified Code(s): I25.10 - Atherosclerotic heart disease of [place] coronary artery without angina pectoris
[2025-04-11] MEDS ORDERED: POLYETHYLENE (MIRALAX) 17 GM PACK PO PRN (14:23)
[2025-04-11] MEDS ORDERED: MYCOPHENOLATE MOFETIL PO SCH (14:23)
[2025-04-11] MEDS ORDERED: ONDANSETRON INJ 2 MG/ML 2 ML VIAL IV PRN (14:23)
--- NOTE | 2025-04-11 14:35 | CT Scan Report ---
ABDOMEN AND PELVIS CT WITH IV CONTRAST CT DOSE: 1044.7 mGy.cm HISTORY: febrile immunosupressed kidney transplant TECHNIQUE: Multiaxial CT images of the abdomen and pelvis were performed following the IV administrat ion of 90 cc of Optiray, A dose lowering technique was utilized adhering to the principles of ALARA. COMPARISON STUDY: 09/21/2024 FINDINGS: ABDOMEN: There is increased splenomegaly measuring 16 cm. Gallbladder is surgically absent. Liver and adrenal glands are unremarkable. There are stable diffuse pancreatic calcifications consistent with chronic pancreatitis. Stable adjacent scarring and mesenteric tethering, likely sequela of chronic pa ncreatitis. Stable left upper quadrant varices and stable prominence of the portal vein suggesting po rtal hypertension. No ascites. Stable small kidney cysts. No hydronephrosis. There are scattered athe rosclerotic calcifications. No abdominal aortic aneurysm. Pelvis: There is an interval transplant kidney at the right pelvis. There is mild inflammation and ed pancho and minimal hydronephrosis of the transplant. There is mild wall thickening and enhancement of th e transplant collecting system and ureter. There is also mild wall thickening and inflammation at the urinary bladder. Findings suggest ascending UTI with transplant pyelonephritis. There is a tiny amou nt of fluid adjacent to the right common femoral artery, likely postoperative seroma from the vascula r anastomosis. No significant peritransplant fluid or abscess seen. There is moderate retained stool. There is sigmoid diverticulosis. No acute diverticulitis. No bowel inflammation or obstruction. No e nlarged adenopathy. Osseous structures: There are mild degenerative changes at the spine and hips. IMPRESSION: 1. Findings consistent with cystitis and transplant kidney pyelonephritis. 2. Otherwise as described. ACT 112: Negative or not required by law. The above report was generated using voice recognition software. It may contain grammatical, syntax o r spelling errors. Electronically signed by: Bandar Thacker M.D. 04/11/2025 2:33 PM
--- NOTE | 2025-04-11 15:25 | Pharmacy Report ---
Pharmacy Glycemic Short Note 2 - Date of Service April 11, 2025 - Glycemic Short BSG Results (Last 24 hours): 04/11/25 10:15 Glucose 355 H* OUTPATIENT ANTIDIABETIC REGIMEN: * Fiasp 10 units SQ TIDM * Lantus 15 units SQ HS * HbA1c 10.3% (09/22/24) ASSESSMENT: * Tad is a 70 year old male admitted with fevers, chills and nausea status post kidney transplant 03/03/25 with a history of type 2 diabetes mellitus. Pharmacy has been consulted to assist with glycemic management while inpatient. * BSGs upon admission elevated, will initiate basal insulin at approximately ~60 of home basal dose. * NovoLog at a weight based stress of 2. PLAN FOR INPATIENT GLYCEMIC CONTROL: * Hold outpatient oral diabetes medications * Basal insulin * Lantus 10 units SQ daily * Bolus insulin * NovoLog per scale ACHS or Q6hrs while NPO * Goal Range: Low 140 mg/dL - High 180 mg/dL * Correction Factor: 30 mg/dL/unit * Nutritional / Prandial insulin per carb ratio of 1 unit per 10 grams CHO consumed
[2025-04-11] MEDS: LACTATED RINGER'S 1,000 ML IV SCH (16:25)
[2025-04-11] MEDS: MAGNESIUM SULFATE / D5W 1 GM/100 ML BAG IV SCH (16:25)
[2025-04-11] MEDS: INSULIN ASPART PER UNIT CHARGE SC SCH (16:40)
[2025-04-11] MEDS: PIPERACILLIN/TAZOBACTAM 4.5 GM/100 ML BAG IV STA (16:50)
--- NOTE | 2025-04-11 17:11 | Emergency Department Note ---
Impression & Plan Febrile illness, acute, Hx of kidney transplant, Parainfluenza infection ED Provider Note NAME: KULDIP WATSON AGE: 70 SEX: Male INFORMANT: Patient ED PROVIDER(S): Loki Burroughs MD CHIEF COMPLAINT: Illness PLAN: Disposition: Admitted Outpatient prescription management: none Referral: None MEDICAL DECISION MAKING: Patient presented because of illness. Workup was initiated. Blood pressure was mildly stuffed. He was needed. Patient had an unremarkable chest x-ray. CBC and chemistry panel did not reveal any acute findings other than mild anemia. Magnesium was mildly low and this was repleted. Glucose was elevated. ECG did show tachycardia without ischemia. Cultures were sent. Patient had a BioFire test performed and parainfluenza was found. Patient was empirically covered with cefepime given his fever and renal transplant status. [facility] Patient was evaluated in the ER and admitted for further management. Care/management discussed with: manager sourcing, hospitalist Level of care consideration(s): After review of the information above and other included data, I feel the patient requires escalation of care to admission. Triage Nursing notes: reviewed and agree them. Vital Signs: reviewed and remarkable for soft blood pressure and borderline tachycardia Additional History obtained from: none Chronic Medical/Social Conditions affecting care: Renal transplant status Prior/ Outside/ External records reviewed: none Differential Diagnosis: Infection, dehydration, metabolic abnormality, hypo/hyperglycemia, electrolyte disturbance, anemia, hypoxia, cardiac sources, intracerebral event, toxicologic, neurologic, as well as other pathologies. Diagnostics, independently interpreted by me: ECG: Twelve-lead ECG reveals a sinus tachycardia 111 bpm. Left axis deviation and left bundle branch block. Cardiac Monitoring: Cardiac monitoring ordered by me: The patient was placed on continuous cardiac monitoring and observed. It revealed a normal sinus rhythm at 85 beats per minute without ectopy or evidence of dysrhythmia. Medical decision rules: none Imaging studies: Chest x-ray. Findings: A chest x-ray was performed and revealed no pneumothorax, effusion, infiltrate, pulmonary edema, free air under the diaphragm, or wide mediastinum. Impression: No acute disease. HPI: 70 year old Male arrives for evaluation of illness. This started yesterday and is worsening. Patient notes feeling generally weak. The patient also notes the following associated symptoms, mild nausea and fever. The patient has found no relieving factors. Current pain is rated as 0/10. Patient states he had a kidney transplant about 5 weeks ago. Earlier this week on his way home from his discharge patient states he did become lightheaded and passed out. He did strike his head. He was not seen for that. Denies any known sick contacts. Pt denies current patient denies any problems at his transplant site. Headache, fevers, chills, diaphoresis, visual changes, neck pain, chest pain, breathing difficulties, nausea, vomiting, abdominal pain, back pain, melena, hematochezia, urinary symptoms, numbness, weakness, lymphadenopathy, rash, or other complaints.. PAST MEDICAL HISTORY: See Below, GI bleed, hypertension, sepsis PAST SURGICAL HISTORY: See Below, renal transplant SOCIAL HISTORY: See Below, HOME MEDICATIONS: See Below ALLERGIES: See Below VITALS: See Below PHYSICAL EXAMINATION: GENERAL: Awake, tired l-appearing, in no distress HENT: Normocephalic, atraumatic. Oropharynx unremarkable. EYES: Normal conjunctiva. Sclera non-icteric. NECK: Inspection normal. Non-tender. Supple. No nuchal rigidity. FROM. No masses. RESPIRATORY: Clear to auscultation. No wheezes. No rales. Normal respiratory effort. CARDIAC: Normal rate. Normal rhythm. Extremities warm and well perfused. Pulses equal. No JVD. GI: Soft, non-distended. No tenderness to palpation. No rebound or guarding. No masses. Right lower quadrant incision at transplant site is clean dry and intact without erythema or tenderness. RECTAL: Deferred. MUSCULOSKELETAL: Atraumatic. Chest examination reveals no tenderness. The back is symmetrical on inspection without obvious abnormality. There is no CVA tenderness to palpation. No joint edema. LOWER EXTREMITIES: Calves are equal size bilaterally and non-tender. No edema. No discoloration. NEURO: Normal sensorium. No sensory or motor deficits noted. SKIN: No rash or jaundice noted. PROCEDURES: none CRITICAL CARE: none OBSERVATION NOTE: none Past Med/Surg History Problem List (Updated 04/11/25 @ 17:11 by Loki Burroughs MD) Parainfluenza infection (Acute) Hx of kidney transplant (Acute) Febrile illness, acute (Acute) Pyelonephritis of transplanted kidney S/P kidney transplant Surgical wound, non healing (Acute) Abscess of chest wall (Acute) Abscess of chest wall Chronic pancreatitis Gastritis LBBB (left bundle branch block) Lymphadenopathy Prolonged QT interval End stage chronic kidney disease (Acute) Esophagitis (Acute) Chest pain (Acute) Duodenal ulcer Nephrolithiasis Acute blood loss anemia Upper GI bleed ESRD (end stage renal disease) on dialysis Acute GI bleeding (Acute) Hypertension Peripheral neuropathy Subungual hematoma of fourth toe of left foot Septic shock Hydronephrosis concurrent with and due to calculi of kidney and ureter Metabolic acidosis (Acute) Acute dehydration (Acute) Diarrhea (Acute) YASIR (acute kidney injury) (Acute) DM type 2 (diabetes mellitus, type 2) Immunosuppressed status (Acute) HIV (human immunodeficiency virus infection) CKD (chronic kidney disease) stage 4, GFR 15-29 ml/min History of left bundle branch block (LBBB) CAD (coronary artery disease) Acute hyperglycemia (Acute) Syncope (Acute) Medical History History of COVID-19 2020 Hypertension Diabetes mellitus Hx of sepsis hospitalized at [facility] January 2024 Port-A-Cath in place ESRD (end stage renal disease) on dialysis [facility] in [place] > Tues/ Thurs / Sat History of kidney stones Osteoarthritis Chronic lower back pain History of pancreatitis History of skin cancer BLACKFEET (hard of hearing) HLD (hyperlipidemia) History of myocardial infarction 2016 & 2019 Sleep apnea no device Diverticulosis GERD (gastroesophageal reflux disease) IBS (irritable bowel syndrome) Precancerous lesion rectal CAD (coronary artery disease) Per patient, stenting x 5 in 2016 and restenting of 1 vessel performed in July 2020 Depression HIV (human immunodeficiency virus infection) Surgical History EIC (epidermal inclusion cyst) (02/13/25) Skin, right upper chest, excision: in office procedure Dr. Silver - Inflamed epidermal cyst History of esophagogastroduodenoscopy (EGD) S/P ureteral stent placement History of removal of ureteral stent History of cystoscopy History of colonoscopy History of cholecystectomy History of cardiac catheterization 2016 - stents 2019 -- restenting x 1. [facility] Family History Mother Heart disease Social History Smoking Status: Former smoker Tobacco Type: Cigarettes Second Hand Exposure: No; Do You Dip or Chew Tobacco: No; Hx Alcohol Use: Yes Alcohol type: beer Alcohol Intake Frequency: Monthly or Less Hx Substance Use: No Preferred Language: Moldovan Communication Ability: Effective Visual Impairment: Limited Hearing Ability: Hard of Hearing Manager Client Service Required: No Beliefs That Will Affect Care: None Current Living Situation: Alone Current Living Situation Comment: home Feels Safe at Home: Yes Safety Concerns: Feels Safe At This Time Diet: regular caffeine: Yes Assistive Devices: Cane and Walker Assistive Devices Comment: occasional use of walker or cane at home Allergies Allergies Allergy/AdvReac Type Severity Reaction Status Date / Time No Known Allergies Allergy Verified 01/23/25 09:44 Home Meds Home Medications Medication Instructions Recorded Confirmed atorvastatin 40 mg tablet 40 mg PO QAM 01/06/22 04/11/25 fluoxetine 20 mg capsule 20 mg PO [facility] 01/06/22 04/11/25 multivitamin 1 tab PO [facility] 01/06/22 04/11/25 aspirin 81 mg tablet,delayed 81 mg PO QAM 12/30/23 04/11/25 release metoprolol succinate 25 mg 25 mg PO QA 12/30/23 04/11/25 tablet,extended release 24 hr levothyroxine 25 mcg tablet 25 mcg PO DAILY 01/23/24 04/11/25 nifedipine 30 mg tablet,extended 30 day PO DAILY ##0 03/20/24 04/11/25 release insulin aspart 10 unit subcut TIDWMEAL 09/21/24 04/11/25 (niacinamide)(U-100) 100 unit/mL(3 mL) subcutaneous pen (Fiasp FlexTouch U-100 Insulin) insulin glargine 100 unit/mL (3 15 unit subcut HS 12/23/24 04/11/25 mL) subcutaneous pen (Lantus Solostar U-100 Insulin) pantoprazole 40 mg tablet,delayed 40 mg PO DAILY 12/23/24 04/11/25 release CellCept 0 mg PO UD 04/11/25 04/11/25 Prograf 0 mg PO DIRECTED 04/11/25 04/11/25 bictegravir 50 mg-emtricitabine 1 tab PO DAILY 04/11/25 04/11/25 200 mg-tenofovir alafenam 25 mg tablet (Biktarvy) famotidine 20 mg tablet 20 mg PO DAILY PRN Acid Reflux 04/11/25 04/11/25 [id number]-[id number] 1 cap PO .WITH MEALS 04/11/25 04/11/25 24,000-76,000-120,000 unit capsule,delayed rel (Creon) loperamide 2 mg capsule 2 mg PO DIRECTED PRN loose 04/11/25 04/11/25 stools prednisone 5 mg tablet 5 mg PO BID 04/11/25 04/11/25 sulfamethoxazole 400 1 tab PO BID 04/11/25 04/11/25 mg-trimethoprim 80 mg tablet tamsulosin 0.4 mg capsule 0.4 mg PO DAILY 04/11/25 04/11/25 valganciclovir 450 mg tablet 450 mg PO DAILY 04/11/25 04/11/25 (Valcyte) Results & Data (ED) Vital Signs Vital Signs - 24 hr 04/11/25 10:20 04/11/25 10:20 04/11/25 10:20 Temperature 37.5 C Temperature Source Oral Pulse Rate 109 H Pulse Rate [Right Finger] 104 H Pulse Rhythm Regular Pulse Rhythm [Right Finger] Regular Pulse Strength Normal Pulse Strength [Right Finger] Normal Respiratory Rate 17 17 Respiratory Effort / Characteristics Non-Labored Non-Labored Respiratory Depth Normal Normal Respiratory Pattern Regular Regular Blood Pressure 97/59 L Blood Pressure [Right Arm] 97/59 L Blood Pressure Mean 71 Blood Pressure Mean [Right Arm] 71 Blood Pressure Position Lying Blood Pressure Position [Right Arm] Lying Pulse Oximetry 96 95 95 Oxygen Delivery Method Room Air Room Air Room Air Sepsis Recent Fever Within 48 Hours Yes Sepsis New/Unexplained Change in Mental Status N/A Sepsis Action Taken by Nursing Physician Notified 04/11/25 10:28 04/11/25 10:48 04/11/25 12:01 Temperature Temperature Source Pulse Rate 103 H Pulse Rate [Right Finger] 101 H Pulse Rhythm Pulse Rhythm [Right Finger] Regular Pulse Strength Pulse Strength [Right Finger] Normal Respiratory Rate 16 Respiratory Effort / Characteristics Non-Labored Respiratory Depth Normal Respiratory Pattern Regular Blood Pressure Blood Pressure [Right Arm] 106/69 Blood Pressure Mean Blood Pressure Mean [Right Arm] 81 Blood Pressure Position Blood Pressure Position [Right Arm] Lying Pulse Oximetry 95 95 Oxygen Delivery Method Room Air Room Air Sepsis Recent Fever Within 48 Hours Sepsis New/Unexplained Change in Mental Status Sepsis Action Taken by Nursing Laboratory Data 04/11/25 10:15 04/11/25 10:15 Lab Results 04/11/25 04/11/25 04/11/25 Range/Units 10:15 10:43 12:23 WBC 8.74 (4.8-10.8) K/ul RBC 3.58 L (4.70-6.10) M/uL Hgb 10.3 L (14.0-18.0) g/dl Hct 30.3 L (42.0-52.0) % MCV 84.6 (80.0-100.0) fL MCH 28.8 (25.0-34.0) pg MCHC 34.0 (32.0-36.0) g/dL RDW Std Deviation 44.5 (36.4-46.3) fL RDW Coeff of Meera 14.9 H (11.5-14.5) % Plt Count 132 (130-400) K/uL MPV 9.9 (9.4-12.4) fL Immature Gran % (Auto) 0.5 % Neut % (Auto) 96.1 % Lymph % (Auto) 1.8 % Lea % (Auto) 1.5 % Eos % (Auto) 0.0 % Baso % (Auto) 0.1 % Neut # (Auto) 8.40 H (1.40-6.50) K/uL Lymph # (Auto) 0.16 L (1.20-3.40) K/uL Lea # (Auto) 0.13 (0.11-0.59) K/uL Eos # (Auto) 0.00 (0.00-0.50) K/uL Baso # (Auto) 0.01 (0.00-0.20) K/uL Immature Gran # (Auto) 0.04 (0.01-0.20) K/uL Polychromasia 1+ Tear Drop Cells 1+ Ovalocytes 1+ Sodium 130 L (136-145) mmol/L Potassium 4.2 (3.5-5.1) mmol/L Chloride 97 L (98-107) mmol/L Carbon Dioxide 25 (21-32) mmol/L Anion Gap 8 (3-11) BUN 21 (6-23) mg/dl Creatinine 1.37 (0.6-1.4) mg/dl Est Cr Clr Drug Dosing 47.2 ml/min eGFR 54.81 BUN/Creatinine Ratio 15.3 (10-20) Glucose 355 H* (70-99(Fasting)) mg/dl Lactate 1.2 (0.4-2.0) mmol/L Calcium 10.2 (8.6-10.3) mg/dl Magnesium 1.3 L (1.7-2.4) mg/dl Total Bilirubin 1.1 H (0.2-1.0) mg/dl AST 15 (13-39) U/L ALT 18 (7-52) U/L Alkaline Phosphatase 98 (34-104) U/L Troponin I High Sens 13.5 (0-20) pg/ml Total Protein 6.1 (6.0-8.3) gm/dl Albumin 3.8 (3.4-5.0) gm/dl Globulin 2.3 L (2.5-4.0) gm/dl Albumin/Globulin Ratio 1.7 (0.9-2) Lipase < 3 L (11-82) U/L TSH 2.813 (0.300-4.500) uIu/ml Urine Color Yellow Urine Appearance Cloudy A (Clear) Urine pH 6.5 (4.5-7.5) Ur Specific [place] 1.023 (1.000-1.030) Urine Protein 2+ H (Negative) Urine Glucose (UA) 3+ H (Negative) Urine Ketones Trace H (Negative) Urine Blood 3+ H (Negative) Urine Nitrite Negative (Negative) Urine Bilirubin Negative (Negative) Urine Urobilinogen Negative (Negative) Ur Leukocyte Esterase 2+ H (Negative) Urine WBC (Auto) >50 H (0-5) /hpf Urine RBC (Auto) >20 H (0-2) /hpf U Hyaline Cast (Auto) 0-2 (0-2) /lpf U Epithel Cells (Auto) 0-2 (0-2) /hpf Urine Bacteria (Auto) 3+ H (None Seen) Urine Comment Adenovirus (PCR) Not Detected (NotDetected) B. pertussis DNA (PCR) Not Detected (NotDetected) B.parapertussis DNA PCR Not Detected (NotDetected) C. pneumoniae DNA (PCR) Not Detected (NotDetected) Coronavirus OC43 (PCR) Not Detected (NotDetected) Coronavirus HKU1 (PCR) Not Detected (NotDetected) Coronavirus 229E (PCR) Not Detected (NotDetected) SARS-CoV-2 (PCR) Not Detected (NotDetected) Coronavirus NL63 (PCR) Not Detected (NotDetected) Human Metapneumovir PCR Not Detected (NotDetected) Influenza Type A (PCR) Not Detected (NotDetected) Influenza Type B (PCR) Not Detected (NotDetected) M. pneumoniae (PCR) Not Detected (NotDetected) Parainfluenza 1 (PCR) Not Detected (NotDetected) Parainfluenza 2 (PCR) Not Detected (NotDetected) Parainfluenza 3 (PCR) DETECTED A (NotDetected) Parainfluenza 4 (PCR) Not Detected (NotDetected) RSV (PCR) Not Detected (NotDetected) Entero/Rhino (PCR) Not Detected (NotDetected) Administered Medications Magnesium Sulfate/Dextrose (Magnesium Sulfate / D5w) 1 gm in 100 mls @ 50 mls/hr IV Q2H [facility] Stop: 04/11/25 21:29 Last Admin: 04/11/25 16:25 Dose: 50 mls/hr Documented By: RLSandeep Lactated Ringer's (Lr) 1,000 mls @ 80 mls/hr IV .[id number] [facility] Stop: 04/12/25 00:00 Last Admin: 04/11/25 16:25 Dose: 80 mls/hr Documented By: RLSandeep Insulin Aspart (Insulin Aspart Per Unit Charge) 0 units SC ACHS [facility] Stop: 05/11/25 13:44 Last Admin: 04/11/25 16:40 Dose: Not Given Documented By: RLSandeep Miscellaneous (Order Awaiting Action) 1 each N/A QS [facility] Stop: 05/11/25 14:59 Last Admin: 04/11/25 16:59 Dose: Not Given Documented By: RLSandeep Admin: 04/11/25 16:49 Dose: Not Given Documented By: RLG Discontinued Medications Sodium Chloride (Nss) 1,000 mls @ 999 mls/hr IV .Q1H1M ONE Stop: 04/11/25 12:25 Last Infusion: 04/11/25 16:57 Dose: Infused Documented By: Admin: 04/11/25 11:45 Dose: 999 mls/hr Documented By: SHAINA Sodium Chloride (Nss) 1,000 mls @ 125 mls/hr IV .Q8H [facility] Stop: 04/14/25 11:29 Last Infusion: 04/11/25 16:20 Dose: Infused Documented By: Infusion: 04/11/25 15:11 Dose: 125 mls/hr Documented By: Admin: 04/11/25 12:45 Dose: 125 mls/hr Documented By: SHAINA Cefepime HCl (Maxipime 2000mg) 2,000 mg in 20 mls @ 5 mls/min IV NOW STA; Protocol Stop: 04/11/25 11:28 Last Admin: 04/11/25 11:45 Dose: 5 mls/min Documented By: SHAINA Magnesium Sulfate/Dextrose (Magnesium Sulfate / D5w) 1 gm in 100 mls @ 50 mls/hr IV ONE ONE Stop: 04/11/25 13:32 Last Infusion: 04/11/25 16:56 Dose: Infused Documented By: Admin: 04/11/25 11:45 Dose: 50 mls/hr Documented By: SHAINA Piperacillin Sod/Tazobactam Sod (Zosyn) 4.5 gm in 100 mls @ 200 mls/hr IV NOW STA; Protocol Stop: 04/11/25 16:14 Last Admin: 04/11/25 16:50 Dose: 200 mls/hr Documented By: NICOL Ioversol (Optiray 320 100ml) 94 ml IV ONCE ONE Stop: 04/11/25 14:05 Last Admin: 04/11/25 14:04 Dose: 94 ml Documented By: EMEKA Imaging Data Radiologist's Impression: Chest X-Ray 04/11/25 10:26 XR chest 1V portable CLINICAL HISTORY: weakness COMPARISON STUDY: 09/21/2024 FINDINGS: Stable mild cardiomegaly without pulmonary vascular congestion. Stable mild to moderate elevation of the left hemidiaphragm. No consolidation or pleural effusion. No pneumothorax. IMPRESSION: No acute findings. ACT 112: Negative or not required by law. Electronically signed by: Bandar Thacker M.D. 04/11/2025 10:[address] 04/11/25 11:33 CT head/brain wo con CLINICAL HISTORY: fall, chi. TECHNIQUE: Multiple axial CT images of the head were obtained without contrast. A dose lowering technique was utilized adhering to the principles of ALARA. CT DOSE: 625.8 mGy.cm COMPARISON: 10/30/2022 FINDINGS: No intracranial hemorrhage seen. No mass effect, midline shift, or hydrocephalus. There is a small right parietal scalp hematoma near the vertex. No skull fracture seen. There is mild mucosal thickening and a small amount of fluid at the right maxillary sinus. Otherwise the visualized paranasal sinuses and mastoid air cells are clear. IMPRESSION: 1. No acute intracranial findings. 2. Otherwise as described. ACT 112: Negative or not required by law. The above report was generated using voice recognition software. It may contain grammatical, syntax or spelling errors. Electronically signed by: Bandar Thacker M.D. 04/11/2025 12:12 PM Discharge Plan Visit Data Chief Complaint: Illness Stated Complaint: illness ED Provider: Loki Burroughs Discharge Problem: Febrile illness, acute, Hx of kidney transplant, Parainfluenza infection Patient Disposition: Admitted As Inpatient Condition: Good Discharge Instructions Interventions: ED Discharge Assessment Last Done: 04/11/25 13:50
[2025-04-11] MEDS: LANTUS PER UNIT CHARGE SC ONE (18:30)
[2025-04-11] MEDS: PANCREAZE (LIPASE 4,200U) CAP PO SCH (18:32)
[2025-04-11] MEDS: PANCREAZE (LIPASE 10,500U) CAP PO SCH (18:32)
[2025-04-11] MEDS: PIPERACILLIN/TAZOBACTAM 4.5 GM/100 ML BAG IV SCH (19:49)
[2025-04-11] MEDS: TACROLIMUS 1 MG CAP PO SCH (19:55)
[2025-04-11] MEDS: SULFA/TRIMETH 400/80MG TAB PO SCH (20:29)
[2025-04-11] MEDS: INSULIN HUMAN REGULAR PER UNIT 5 UNITS in SYRINGE 4.95 ML IV ONE (20:59)
[2025-04-11] MEDS ORDERED: MYCOPHENOLATE MOFETIL 250 MG CAP PO SCH (21:00)
[2025-04-11] MEDS ORDERED: NON-FORMULARY MEDICATION (Insulin Glargine [Lantus Solostar U-100 Insulin] 100 unit/mL (3 SQ SCH (21:00)
[2025-04-11 23:32] LABS: A calco-baum cmplx NotReported Not Detected (NotDetected); Bact fragilis Not Reported Not Detected (NotDetected); Blood Culture Id Panel See PCR Comment (NotDetected); C auris Not Reported Not Detected (NotDetected); CTX-M Resistant Gene Not Detected (NotDetected); Calbicans Not Reported Not Detected (NotDetected); Candida glabrata Not Reported Not Detected (NotDetected); Candida krusei Not Reported Not Detected (NotDetected); Cneoformans/gatti Not Reported Not Detected (NotDetected); Cparapsilosis Not Reported Not Detected (NotDetected); Ctropicalis Not Reported Not Detected (NotDetected); E cloacae compx Not Reported Not Detected (NotDetected); Efaecalis Not Reported Not Detected (NotDetected); Efaecium Not Reported Not Detected (NotDetected); Enterobacterales DETECTED (NotDetected); Enterobacterales Not Reported DETECTED (NotDetected); Escherichia coli Not Reported DETECTED (NotDetected); H influenzae Not Reported Not Detected (NotDetected); IMP Resistant Gene Not Detected (NotDetected); K aerogenes Not Reported Not Detected (NotDetected); KPC Resistant Gene Not Detected (NotDetected); Koxytoca Not Reported Not Detected (NotDetected); Kpneumoniae grp Not Reported Not Detected (NotDetected); Lmonocyt Not Reported Not Detected (NotDetected); N meningitidis Not Reported Not Detected (NotDetected); NDM Resistant Gene Not Detected (NotDetected); OXA 48 Like Resistant Gene Not Detected (NotDetected); P aeruginosa Not Reported Not Detected (NotDetected); Proteus spp Not Reported Not Detected (NotDetected); Salmonella spp Not Reported Not Detected (NotDetected); Staph lugdunensis Not Reported Not Detected (NotDetected); Staph spp. Not Reported Not Detected (NotDetected); Staphaureus Not Reported Not Detected (NotDetected); Staphepi Not Reported Not Detected (NotDetected); Stenmaltophilia Not Reported Not Detected (NotDetected); Strep agal(GrpB) Not Reported Not Detected (NotDetected); Strep pneum Not Reported Not Detected (NotDetected); Strep pyog (GrpA) Not Reported Not Detected (NotDetected); Strep spp Not Reported Not Detected (NotDetected); VIM Resistant Gene Not Detected (NotDetected); mcr-1 Colistin Resistant Gene Not Detected (NotDetected)
[2025-04-12] MEDS: INSULIN ASPART PER UNIT CHARGE SC SCH (00:53)
[2025-04-12] MEDS: ACETAMINOPHEN 325 MG TAB PO PRN (03:53)
[2025-04-12] MEDS: LEVOTHYROXINE SODIUM 25 MCG TABLET PO SCH (05:46)
[2025-04-12 08:36] LABS: Hematocrit (blood only) 27.0 % (42.0-52.0); Hemoglobin 9.2 g/dl (14.0-18.0); Immature Granulocytes # (auto) 0.05 K/uL (0.01-0.20); Immature Granulocytes % (auto) 0.9 %; Mean Corpuscular Hemoglobin 29.4 pg (25.0-34.0); Mean Corpuscular Volume 86.3 fL (80.0-100.0); Platelet Count 101 K/uL (130-400); RDW Standard Deviation 46.2 fL (36.4-46.3); Red Blood Count 3.13 M/uL (4.70-6.10); White Blood Count 5.73 K/ul (4.8-10.8)
[2025-04-12] MEDS: VALGANCICLOVIR HCL 450 MG TABLET PO SCH (08:53)
[2025-04-12] MEDS: TACROLIMUS 1 MG CAP PO SCH (08:53)
[2025-04-12 08:55] LABS: Alanine Aminotransferase 14.0 U/L (7-52); Albumin Globulin Ratio 1.6 (0.9-2); Alkaline Phosphatase 75.0 U/L (34-104); Anion Gap 6.0 (3-11); Bilirubin,Total 0.9 mg/dl (0.2-1.0); Blood Urea Nitrogen 16.0 mg/dl (6-23); Calcium 9.6 mg/dl (8.6-10.3); Carbon Dioxide 26.0 mmol/L (21-32); Chloride 101.0 mmol/L (98-107); Creatinine Clr Calc Pharmacy 57.2 ml/min; Globulin 2.0 gm/dl (2.5-4.0); Glucose 172.0 mg/dl (70-99(Fasting)); Magnesium 1.8 mg/dl (1.7-2.4); Potassium 4.2 mmol/L (3.5-5.1); Sodium 133.0 mmol/L (136-145); Total Protein 5.2 gm/dl (6.0-8.3)
[2025-04-12] MEDS: TAMSULOSIN HCL 0.4 MG CAP PO SCH (08:55)
[2025-04-12] MEDS: MULTIVITAMIN TAB PO SCH (08:56)
[2025-04-12] MEDS: METOPROLOL SUCC 25MG EXT REL TAB PO SCH (08:56)
[2025-04-12] MEDS: BIKTARVY PO SCH (08:57)
[2025-04-12] MEDS ORDERED: LANTUS PER UNIT CHARGE SC SCH (09:00)
[2025-04-12] MEDS ORDERED: ATORVASTATIN 40 MG TAB PO SCH (09:00)
[2025-04-12] MEDS ORDERED: ASPIRIN 81 MG ECTAB PO SCH (09:00)
[2025-04-12 09:28] LABS: A calco-baum cmplx NotReported Not Detected (NotDetected); Bact fragilis Not Reported Not Detected (NotDetected); Blood Culture Id Panel See PCR Comment (NotDetected); C auris Not Reported Not Detected (NotDetected); Calbicans Not Reported Not Detected (NotDetected); Candida glabrata Not Reported Not Detected (NotDetected); Candida krusei Not Reported Not Detected (NotDetected); Cneoformans/gatti Not Reported Not Detected (NotDetected); Cparapsilosis Not Reported Not Detected (NotDetected); Ctropicalis Not Reported Not Detected (NotDetected); E cloacae compx Not Reported Not Detected (NotDetected); Efaecalis Not Reported Not Detected (NotDetected); Efaecium Not Reported Not Detected (NotDetected); Enterobacterales Not Reported Not Detected (NotDetected); Escherichia coli Not Reported Not Detected (NotDetected); H influenzae Not Reported Not Detected (NotDetected); K aerogenes Not Reported Not Detected (NotDetected); Koxytoca Not Reported Not Detected (NotDetected); Kpneumoniae grp Not Reported Not Detected (NotDetected); Lmonocyt Not Reported Not Detected (NotDetected); N meningitidis Not Reported Not Detected (NotDetected); P aeruginosa Not Reported Not Detected (NotDetected); Proteus spp Not Reported Not Detected (NotDetected); Salmonella spp Not Reported Not Detected (NotDetected); Staph lugdunensis Not Reported Not Detected (NotDetected); Staph spp. Not Reported DETECTED (NotDetected); Staphaureus Not Reported Not Detected (NotDetected); Staphepi Not Reported DETECTED (NotDetected); Staphylococcus spp. DETECTED (NotDetected); Stenmaltophilia Not Reported Not Detected (NotDetected); Strep agal(GrpB) Not Reported Not Detected (NotDetected); Strep pneum Not Reported Not Detected (NotDetected); Strep pyog (GrpA) Not Reported Not Detected (NotDetected); Strep spp Not Reported Not Detected (NotDetected)
[2025-04-12 09:54] LABS: Staphylococcus epidermidis DETECTED (NotDetected); mecAC Resistant Gene DETECTED (NotDetected)
[2025-04-12] MEDS: LANTUS PER UNIT CHARGE SC SCH ×2 (10:34→20:20)
--- NOTE | 2025-04-12 11:19 | Nephrology Consultation ---
Date of Consultation April 12, 2025 Assessment & Plan (1) Hx of kidney transplant: Recent renal Transplant 03/03/2025 at [facility]--Complicated course of events right affter transplant. Had 03/15 admission for early 2A ACR treated with thymo/steroids. Currently on prednisone 5 mg bid, MMF 1gram bid, prograf target 10-12. He had early rejection on 03/15. Also had admission on 03/26 for fevers/Pancreatitis. P However Currently creatinine is about 1.1 --this is great. Given his fresh renal transplant ideally should be at [facility] given all the complications he has had. Transferring patient is incredibly complicated due [place]. Discussed immunosuppression with Dr. Rodriguez (transplant disposal operator) at [facility]--he recommended the following: decreasing prednisone to 5mg daily, hold cellcept until culture data back, discharge on 500 bid cellcept, 2 grams morning tacrolimus and 1gram at night (continue this during admission). Dr. Rodriguez requesting daily updates at [phone], will need 2 weeks of therapy on discharge minimum. Recommends discharge to [facility] after stabilization and culture data returns. He is definitely better today. Continue Current ABx pending ID consult. Dose of Transplant meds lowered as per recommendations from Dr Rodriguez. Prograf level pending. (2) Febrile illness, acute: Feels much better now. He is immunocompromised with Recent transplant and meds as well as prior HIV even though has Undetectable levels. Blood C/s growing e coli and also GPC clusters. Pending ID consult. However he feels much better today already. this is good sign. (3) Electrolyte abnormality: had low Na of 130 and low mag--Now both better after correction. Check renal panel and Mag again in evening. He will need some mag supplement given his Chronic Diarrhea and Still poor intake Plan Complex patient. time spent 65 mins History of Present Illness Reason for Consultation: S/p renal transplant Attending Physician: William Pinto MD History of Present Illness 70/M previously my dialysis patient with very recent renal transplant (03/03/2025 at [facility], 03/15 admission for early 2A ACR treated with thymo/steroids, EBV R+, CMV risk intermediate (D+/R+). 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 Had renal transplant on 03/03/2025 but has had complicated course of events since then. Currently on prednisone 5 mg bid, MMF 1gram bid, prograf target 10-12. He had early rejection on 03/15. Also had admission on 03/26 for fevers/Pancreatitis. Per admission note 03/26, severe erosive gastritis on EGD noted, PPI BID x8 weeks, MRCP then subsequent EUS for pancreatic mass with extensive varices noted throughout duodenum. However Currently creatinine is about 1.1 In the ED here he had xray and CT head that was unremarkable, was given one dose of cefepime, admitted to medicine for further workup. Admitting team did discuss extensively with transplant team at [facility]. Transferring patient is incredibly complicated due to being across state lines. Discussed immunosuppression with Dr. Rodriguez (transplant disposal operator) at [facility]--he recommended the following: decreasing prednisone to 5mg daily, hold cellcept until culture data back, discharge on 500 bid cellcept, 2 grams morning tacrolimus and 1gram at night (continue this during admission). Dr. Rodriguez requesting daily updates at [phone], will need 2 weeks of therapy on discharge minimum. Recommends discharge to [facility] after stabilization and culture data returns. today he feels much better. No fever. BP getting normal now. Blood Culture report back-- E Coli as well as GPC clusters. ID consult is pending. ROS--See HPI. Otherwise 12 Systems reviewed and negative Physical Exam Physical Exam: Gen: AAo x 3. Talkative as always. good spirit HEENT: Moist mucous membranes. Neck: Supple, No JVD. Lungs: No Respiratory distress. b/l clear CV: RRR, no edema. Abdomen:Soft non tender. MSK: No joint swelling, no redness. Skin: No rashes, petechiae, lesions. Normal color per patient. surgical site intact, no tenderness to palpation Allergies Allergy/AdvReac Type Severity Reaction Status Date / Time No Known Allergies Allergy Verified 01/23/25 09:44 Home Medications Medication Instructions Recorded Confirmed Type atorvastatin 40 mg tablet 40 mg PO QAM 01/06/22 04/11/25 History fluoxetine 20 mg capsule 20 mg PO QAM 01/06/22 04/11/25 History multivitamin 1 tab PO QAM 01/06/22 04/11/25 History aspirin 81 mg tablet,delayed 81 mg PO QAM 12/30/23 04/11/25 History release metoprolol succinate 25 mg 25 mg PO QAM 12/30/23 04/11/25 History tablet,extended release 24 hr levothyroxine 25 mcg tablet 25 mcg PO DAILY 01/23/24 04/11/25 History nifedipine 30 mg tablet,extended 30 day PO DAILY ##0 03/20/24 04/11/25 History release insulin aspart 10 unit subcut TIDWMEAL 09/21/24 04/11/25 History (niacinamide)(U-100) 100 unit/mL(3 mL) subcutaneous pen (Fiasp FlexTouch U-100 Insulin) insulin glargine 100 unit/mL (3 15 unit subcut HS 12/23/24 04/11/25 History mL) subcutaneous pen (Lantus Solostar U-100 Insulin) pantoprazole 40 mg tablet,delayed 40 mg PO DAILY 12/23/24 04/11/25 History release CellCept 0 mg PO UD 04/11/25 04/11/25 History Prograf 0 mg PO DIRECTED 04/11/25 04/11/25 History bictegravir 50 mg-emtricitabine 1 tab PO DAILY 04/11/25 04/11/25 History 200 mg-tenofovir alafenam 25 mg tablet (Biktarvy) famotidine 20 mg tablet 20 mg PO DAILY PRN Acid Reflux 04/11/25 04/11/25 History xguvsh-axqpzpuz-xtklkdt 1 cap PO .WITH MEALS 04/11/25 04/11/25 History 24,000-76,000-120,000 unit capsule,delayed rel (Creon) loperamide 2 mg capsule 2 mg PO DIRECTED PRN loose 04/11/25 04/11/25 History stools prednisone 5 mg tablet 5 mg PO BID 04/11/25 04/11/25 History sulfamethoxazole 400 1 tab PO BID 04/11/25 04/11/25 History mg-trimethoprim 80 mg tablet tamsulosin 0.4 mg capsule 0.4 mg PO DAILY 04/11/25 04/11/25 History valganciclovir 450 mg tablet 450 mg PO DAILY 04/11/25 04/11/25 History (Valcyte) Patient History Medical History History of COVID-19 2020 Hypertension Diabetes mellitus Hx of sepsis hospitalized at [facility] January 2024 Port-A-Cath in place ESRD (end stage renal disease) on dialysis [facility] in [place] > Tues/ Thurs / Sat History of kidney stones Osteoarthritis Chronic lower back pain History of pancreatitis History of skin cancer [place] (hard of hearing) HLD (hyperlipidemia) History of myocardial infarction 2016 & 2019 Sleep apnea no device Diverticulosis GERD (gastroesophageal reflux disease) IBS (irritable bowel syndrome) Precancerous lesion rectal CAD (coronary artery disease) Per patient, stenting x 5 in 2016 and restenting of 1 vessel performed in July 2020 Depression HIV (human immunodeficiency virus infection) Surgical History EIC (epidermal inclusion cyst) (02/13/25) Skin, right upper chest, excision: in office procedure Dr. Silver - Inflamed epidermal cyst History of esophagogastroduodenoscopy (EGD) S/P ureteral stent placement History of removal of ureteral stent History of cystoscopy History of colonoscopy History of cholecystectomy History of cardiac catheterization 2016 - stents 2019 -- restenting x 1. [facility] Family History Mother Heart disease Social History Smoking Status: Former smoker Tobacco Type: Cigarettes Second Hand Exposure: No; Do You Dip or Chew Tobacco: No; Hx Alcohol Use: Yes Alcohol type: beer Alcohol Intake Frequency: Monthly or Less Hx Substance Use: No Preferred Language: Maltese Communication Ability: Effective Visual Impairment: Limited Hearing Ability: Hard of Hearing Formula Maker Required: No Beliefs That Will Affect Care: None Current Living Situation: Alone Current Living Situation Comment: home Feels Safe at Home: Yes Safety Concerns: Feels Safe At This Time Diet: regular caffeine: Yes Assistive Devices: Cane and Walker Assistive Devices Comment: occasional use of walker or cane at home Results & Data Vital Signs (Past 12 Hours) Vital Signs Temp Pulse Pulse Resp BP Pulse Ox O2 Del Method 04/12/25 08:56 36.3 C L 76 17 112/66 97 Room Air 04/12/25 07:16 72 04/12/25 03:20 36.8 C 81 20 110/70 97 Room Air
--- NOTE | 2025-04-12 14:10 | Hospitalist Progress Note ---
Date of Service April 12, 2025 Assessment & Plan (1) Chronic pancreatitis: (2) LBBB (left bundle branch block): (3) S/P kidney transplant: (4) DM type 2 (diabetes mellitus, type 2): (5) Immunosuppressed status: (6) HIV (human immunodeficiency virus infection): (7) CAD (coronary artery disease): (8) Pyelonephritis of transplanted kidney: Plan 70 yo male with pmhx of renal transplant (03/03/2025 at [facility], hx of dialysis, 03/15 admission for early 2A ACR treated with thymo/steroids, EBV R+, CMV risk intermediate (D+/R+). 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 Acute Transplant Kidney Pyelonephritis Immunocompromised State E. coli bacteremia Staph epidermidis positive in blood culture -Patient presented to the hospital with fever and rigors. -CT abdomen/pelvis ordered by provider shows evidence of pyelonephritis of transplant kidney, and cystitis - Admitting discussed extensively with transfer center and [facility] renal transplant team, will stabilize patient here, discuss daily with transplant team at number below as transfer across state lines is very difficult -UA with 2+ leukocytes and extensive WBC along with imaging findings of pyelonephritis concerning -Blood culture from out of 4 positive for E. coli; 1 out of 4 positive for gram-positive cocci in clusters. Plan: Continue on Zosyn; follow-up on final culture and sensitivity. Patient will need at least 14 days of antibiotics; repeat blood culture tomorrow a.m. Infectious disease consulted for comanagement -tacrolimus levels daily (discussed transplant team at [facility], do not need immediate results given frequent hospitalizations and their knowledge of the patient) -hold any nephrotoxic agents -Updated Dr. Rodriguez from transplant nephrology at [place] at [phone] over the phone; patient has follow-up on April 16 as outpatient with the provider. Plan to resume CellCept after repeat blood cultures are negative. Continue on tacrolimus; continue decreased dose of prednisone 5 mg daily #HIV -viral load undetectable 03/22/2025 Plan: -f/u viral load, ordered -continue biktarvy #Chronic Pancreatitis -continue creon #Depression -continue fluoxetine #CAD s/p Stents #HFrecEF (EF 55%) -continue metoprolol succinate 25 mg daily, aspirin and lipitor -hold nifedipine due to relative hypotension #Severe Esophagitis -per EGD/EUS at [facility] Plan: -continue protonix PO bid per [facility] recs (8 weeks therapy total) #Hypomagnesemia -replenish #DM Type 2 -elevated glucose on arrival -no elevated AG Plan: -restart home lantus, SSI -pharmacy consult given transplant patient Time spent evaluating patient, direct bedside care, chart review, placing orders, interpretation of diagnostic studies, discussion with consultants, patient, and family members, as well as other required patient management activities is 53 minutes Please note the above document was generated using voice recognition software. It may contain grammatical, syntax or spelling errors. Any formal questions or concerns about the content, text or information contained within the body of this dictation should be directly addressed to the provider for clarification Admission and Anticipated Discharge Date Admission Date: April 11, 2025 Subjective Patient seen and examined at bedside. He reports that he is feeling better compared to previous day. Denies any recurrence of fever or chills. His energy levels have also improved. Review of Systems Review of Systems: All systems reviewed & are unremarkable except as noted in Subjective Physical Exam Physical Exam: Constitutional: WD/WN, vitals as above, NAD, sitting up in bed, pleasant, conversing easily Respiratory: normal respiratory effort, lungs clear to auscultation, no wheeze, rales, rhonchi. Normal insp/exp effort, no accessory muscle use Cardiovascular: RRR, no murmur, no edema Vessels: no JVD or carotid bruit Chest: normal inspection of chest Abdomen: normal bowel sounds, soft, nontender, no hepatosplenomegaly Musculoskeletal: no cyanosis or clubbing, extremities motor strength 5/5 Skin: no rashes, warm and dry normal turgor Neurologic: PERRL, EOMI, accommodation nl, no face palsy, no dysarthria CN's II- XI intact bilaterally and moves all extremities Psychiatric: A+Ox3, euthymic affect Results & Data Results & Data Vital Signs (Past 12 Hours) Vital Signs Temp Pulse Pulse Resp BP Pulse Ox O2 Del Method 04/12/25 11:46 36.4 C L 75 17 119/71 98 Room Air 04/12/25 08:56 36.3 C L 76 17 112/66 97 Room Air 04/12/25 07:16 72 04/12/25 03:20 36.8 C 81 20 110/70 97 Room Air (4) DM type 2 (diabetes mellitus, type 2) Diabetes mellitus half-way insulin use: with 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 or 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 Diabetes mellitus complication status: with kidney complications Diabetes mellitus complication detail: with chronic kidney disease Chronic kidney disease stage: on chronic dialysis Qualified Code(s): E11.22 - Type 2 diabetes mellitus with diabetic chronic kidney disease; N18.6 - End stage renal disease; Z79.4 - senior living (current) use of insulin; Z99.2 - Dependence on renal dialysis (6) HIV (human immunodeficiency virus infection) HIV symptom status: unspecified Qualified Code(s): B20 - Human immunodeficiency virus [HIV] disease (7) CAD (coronary artery disease) Coronary Disease-Associated Artery/Lesion type: [place] artery [place] vs. transplanted heart: [place] heart Associated angina: unspecified whether angina present Qualified Code(s): I25.10 - Atherosclerotic heart disease of [place] coronary artery without angina pectoris
--- NOTE | 2025-04-12 14:51 | Pharmacy Report ---
Pharmacy Glycemic Short Note 2 - Date of Service April 12, 2025 - Glycemic Short BSG Results (Last 24 hours): 04/11/25 04/11/25 04/11/25 16:23 20:34 20:39 Glucose POC Glucose 325 H* 359 H* 355 H* 04/12/25 04/12/25 04/12/25 00:34 03:47 08:12 Glucose 172 H POC Glucose 161 H 182 H 04/12/25 04/12/25 08:25 12:10 Glucose POC Glucose 188 H 317 H* OUTPATIENT ANTIDIABETIC REGIMEN: * Fiasp 10 units SQ TIDM * Lantus 15 units SQ HS * HbA1c 10.3% (09/22/24) ASSESSMENT: 04/12 * Patient received total of 33 units of insulin yesterday, of which 10 units were basal insulin. BSGs in 300s last evening, given IV insulin bolus x 1 * Fasting BSG 182 mg/dl - will give home dose Lantus this AM and have scale on for this evening * Plan to tighten novolog with lunch time check as blood sugar rising back up >300. Does appear AM insulin given closer to ~1030 04/11 * Tad is a 70 year old male admitted with fevers, chills and nausea status post kidney transplant 03/03/25 with a history of type 2 diabetes mellitus. Pharmacy has been consulted to assist with glycemic management while inpatient. * BSGs upon admission elevated, will initiate basal insulin at approximately ~60 of home basal dose. * NovoLog at a weight based stress of 2. PLAN FOR INPATIENT GLYCEMIC CONTROL: * Hold outpatient oral diabetes medications * Basal insulin * Lantus 15 units SQ daily * Bolus insulin * NovoLog per scale ACHS or Q6hrs while NPO * Goal Range: Low 110 mg/dL - High 140 mg/dL * Correction Factor: 25 mg/dL/unit * Nutritional / Prandial insulin per carb ratio of 1 unit per 8 grams CHO consumed
--- NOTE | 2025-04-12 17:21 | Infectious Disease Consult ---
Date of Service April 12, 2025 Telehealth Information I performed this visit using a real-time telehealth connection between my location and the patients location ([facility]). After connecting through interactive tele-video, patient was identified by name and date of and/or wristband check.Patient (or authorized healthcare care support representative) was informed that this was a telemedicine visit and it was being conducted confidentially over secure lines. My office door was closed and no one else was present in the room with me.Patient (or authorized healthcare care support representative) provided consent to proceed with the visit, expressed an understanding of privacy and security of the telemedicine visit, and gave permission to have a hospital care support representative in the room in order to assist with the visit and to conduct portions of the visit, as needed. I informed the patient (or authorized healthcare care support representative) that I reviewed their record and presented the opportunity for them to ask any questions regarding the visit today. The patient agreed to participate. Assessment & Plan (1) Parainfluenza infection: Plan: Apparently asymptomatic at this time. CXR shows clear lungs. (2) S/P kidney transplant: Plan: Allograft functioning well despite recent ACR and infections to date. (3) HIV (human immunodeficiency virus infection): Plan: Historically well-controlled. Now on Biktarvy. (4) Bacteremia: Plan: E coli bacteremia in the setting of a complicated UTI and allograft pyelonephritis. Plan 1. OK to continue IV pip-tazo for now. Await susceptibility testing to see if there will be a PO option for him at discharge. Anticipate a 10-14 day course of therapy depending on clinical trajectory. 2. Continue TMP-SMX prophylaxis. Most protocols call for 6-12 months post- transplant depending on rejection status. 3. HIV RNA PCR. Continue Biktarvy. 4. Continue valganciclovir at maintenance dose 450mg po bid Final abx plans remain pending. ID will continue to follow along with you. History of Present Illness History of Present Illness Mr. Silvestre is a 70yo male known to our ID service. He has been followed for HIV infection in our clinic. He also has a h/o ESRD and underwent renal transplant at [facility] on 03/03/25. His post-op course has been complicated by acute cellular rejection and pancreatitis. He presented to [facility] on 04/11/25 with fevers and malaise. Blood cultures have already turned positive for E coli. He reports feeling a little better today. No N/V or diarrhea. He has had no obvious dysuria or difficulty emptying his bladder that he is aware of. Post-transplant, his ART was converted to Biktarvy and he has tolerated this well so far with no obvious side effects. Allergies Allergy/AdvReac Type Severity Reaction Status Date / Time No Known Allergies Allergy Verified 01/23/25 09:44 Home Medications Medication Instructions Recorded Confirmed Type atorvastatin 40 mg tablet 40 mg PO QAM 01/06/22 04/11/25 History fluoxetine 20 mg capsule 20 mg PO QAM 01/06/22 04/11/25 History multivitamin 1 tab PO QAM 01/06/22 04/11/25 History aspirin 81 mg tablet,delayed 81 mg PO QAM 12/30/23 04/11/25 History release metoprolol succinate 25 mg 25 mg PO QAM 12/30/23 04/11/25 History tablet,extended release 24 hr levothyroxine 25 mcg tablet 25 mcg PO DAILY 01/23/24 04/11/25 History nifedipine 30 mg tablet,extended 30 day PO DAILY ##0 03/20/24 04/11/25 History release insulin aspart 10 unit subcut TIDWMEAL 09/21/24 04/11/25 History (niacinamide)(U-100) 100 unit/mL(3 mL) subcutaneous pen (Fiasp FlexTouch U-100 Insulin) insulin glargine 100 unit/mL (3 15 unit subcut HS 12/23/24 04/11/25 History mL) subcutaneous pen (Lantus Solostar U-100 Insulin) pantoprazole 40 mg tablet,delayed 40 mg PO DAILY 12/23/24 04/11/25 History release CellCept 0 mg PO UD 04/11/25 04/11/25 History Prograf 0 mg PO DIRECTED 04/11/25 04/11/25 History bictegravir 50 mg-emtricitabine 1 tab PO DAILY 04/11/25 04/11/25 History 200 mg-tenofovir alafenam 25 mg tablet (Biktarvy) famotidine 20 mg tablet 20 mg PO DAILY PRN Acid Reflux 04/11/25 04/11/25 History dpkfrx-jjlwsjhl-okhnkit 1 cap PO .WITH MEALS 04/11/25 04/11/25 History 24,000-76,000-120,000 unit capsule,delayed rel (Creon) loperamide 2 mg capsule 2 mg PO DIRECTED PRN loose 04/11/25 04/11/25 History stools prednisone 5 mg tablet 5 mg PO BID 04/11/25 04/11/25 History sulfamethoxazole 400 1 tab PO BID 04/11/25 04/11/25 History mg-trimethoprim 80 mg tablet tamsulosin 0.4 mg capsule 0.4 mg PO DAILY 04/11/25 04/11/25 History valganciclovir 450 mg tablet 450 mg PO DAILY 04/11/25 04/11/25 History (Valcyte) Patient History Medical History History of COVID-19 2020 Hypertension Diabetes mellitus Hx of sepsis hospitalized at [facility] January 2024 Port-A-Cath in place ESRD (end stage renal disease) on dialysis [facility] in [place] > / / Wed History of kidney stones Osteoarthritis Chronic lower back pain History of pancreatitis History of skin cancer [place] (hard of hearing) HLD (hyperlipidemia) History of myocardial infarction 2016 & 2019 Sleep apnea no device Diverticulosis GERD (gastroesophageal reflux disease) IBS (irritable bowel syndrome) Precancerous lesion rectal CAD (coronary artery disease) Per patient, stenting x 5 in 2016 and restenting of 1 vessel performed in July 2020 Depression HIV (human immunodeficiency virus infection) Surgical History EIC (epidermal inclusion cyst) (02/13/25) Skin, right upper chest, excision: in office procedure Dr. Silver - Inflamed epidermal cyst History of esophagogastroduodenoscopy (EGD) S/P ureteral stent placement History of removal of ureteral stent History of cystoscopy History of colonoscopy History of cholecystectomy History of cardiac catheterization 2016 - 5 stents 2019 -- restenting x 1. [facility] Family History Mother Heart disease Social History Smoking Status: Former smoker Tobacco Type: Cigarettes Second Hand Exposure: No; Do You Dip or Chew Tobacco: No; Hx Alcohol Use: Yes Alcohol type: beer Alcohol Intake Frequency: Monthly or Less Hx Substance Use: No Preferred Language: [place] Communication Ability: Effective Visual Impairment: Limited Hearing Ability: Hard of Hearing Facilities Operations Technician Required: No Beliefs That Will Affect Care: None Current Living Situation: Alone Current Living Situation Comment: home Feels Safe at Home: Yes Safety Concerns: Feels Safe At This Time Diet: regular caffeine: Yes Assistive Devices: Cane and Glasses Assistive Devices Comment: occasional use of walker or cane at home Review of Systems Gen- + fatigue and malaise HEENT- No PATRICK or sore throat. No oral ulcers. Resp- No SOB or cough CV- No chest pain GI- No N/V or diarrhea - No dysuria MSK- No joint pains Ext- No edema Skin- No rash Neuro- No focal deficits Physical Exam Gen- NAD, cooperative with exam HEENT- NC AT Resp- normal respiratory effort on room air Surgical incision on abdomen well-approximated, clean, no erythema Skin -No rash MSK- Negative Ext- No edema Neuro- Alert and oriented Results & Data Vital Signs (Past 12 Hours) Vital Signs Temp Pulse Pulse Resp BP Pulse Ox O2 Del Method 04/12/25 15:37 36.5 C 80 18 111/68 96 Room Air 04/12/25 14:49 75 04/12/25 11:46 36.4 C L 75 17 119/71 98 Room Air 04/12/25 08:56 36.3 C L 76 17 112/66 97 Room Air 04/12/25 07:16 72 Laboratory Results Na 133 Creatinine 1.13 BUN 16 WBC 5.73 Hgb 9.2 Platelets 101 ALT 14 Total bili 0.9 UA with >50 WBC, >20 RBC Blood cultures 04/11 with 1 of 4 bottles E coli, 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
[2025-04-13 05:01] LABS: Hematocrit (blood only) 27.8 % (42.0-52.0); Hemoglobin 9.4 g/dl (14.0-18.0); Immature Granulocytes # (auto) 0.06 K/uL (0.01-0.20); Immature Granulocytes % (auto) 1.1 %; Mean Corpuscular Hemoglobin 28.8 pg (25.0-34.0); Mean Corpuscular Volume 85.3 fL (80.0-100.0); Platelet Count 123 K/uL (130-400); RDW Standard Deviation 45.3 fL (36.4-46.3); Red Blood Count 3.26 M/uL (4.70-6.10); White Blood Count 5.52 K/ul (4.8-10.8)
[2025-04-13 05:16] LABS: Alanine Aminotransferase 13.0 U/L (7-52); Albumin Globulin Ratio 1.5 (0.9-2); Alkaline Phosphatase 72.0 U/L (34-104); Anion Gap 7.0 (3-11); Bilirubin,Total 0.7 mg/dl (0.2-1.0); Blood Urea Nitrogen 19.0 mg/dl (6-23); Calcium 9.9 mg/dl (8.6-10.3); Carbon Dioxide 25.0 mmol/L (21-32); Chloride 101.0 mmol/L (98-107); Creatinine Clr Calc Pharmacy 46.1 ml/min; Globulin 2.2 gm/dl (2.5-4.0); Glucose 244.0 mg/dl (70-99(Fasting)); Magnesium 1.7 mg/dl (1.7-2.4); Potassium 4.3 mmol/L (3.5-5.1); Sodium 133.0 mmol/L (136-145); Total Protein 5.5 gm/dl (6.0-8.3)
[2025-04-13] MEDS: ATORVASTATIN 40 MG TAB PO SCH (09:26)
[2025-04-13] MEDS: ASPIRIN 81 MG ECTAB PO SCH (09:26)
--- NOTE | 2025-04-13 09:27 | Infectious Disease Progress Nt ---
Date of Service April 13, 2025 Telehealth Information Patient not seen today Assessment & Plan (1) Bacteremia: Plan: Once ready for discharge, suggest changing abx therapy to amoxicillin- clavulanate 875/125mg po bid to extend for 14 days of total abx therapy. Plan Continue Biktary, TMP-SMX, and valganciclovir as previously outlined. ID will sign off for now. Please call with any questions. Results & Data Vital Signs (Past 12 Hours) Vital Signs Temp Pulse Pulse Resp BP Pulse Ox O2 Del Method 04/13/25 07:43 36.5 C 76 20 122/70 95 Room Air 04/13/25 07:37 75 04/13/25 03:10 36.4 C L 67 18 127/68 98 Room Air 04/12/25 22:16 36.5 C 77 18 107/57 L 95 Room Air 04/12/25 22:14 Room Air 04/12/25 21:53 78 Diagnostic Findings E coli isolate sensitivities reviewed.
[2025-04-13] MEDS: LANTUS PER UNIT CHARGE SC SCH (09:36)
--- NOTE | 2025-04-13 11:16 | Nephrology Progress Note ---
Date of Service April 13, 2025 Assessment & Plan Admission and Anticipated Discharge Date Admission Date: April 11, 2025 Subjective Assessment & Plan (1) Hx of kidney transplant: Recent renal Transplant 03/03/[address] [facility]--Complicated course of events right affter transplant. Had 03/15 admission for early 2A ACR treated with thymo/steroids. Currently on prednisone 5 mg bid, MMF 1gram bid, prograf target 10-12. He had early rejection on 03/15. Also had admission on 03/26 for fevers/Pancreatitis. P Creat was 1.1 and this AM is 1.4--?? Slight rise. give 1 liter of NS. Given his fresh renal transplant ideally should be at [facility] given all the complications he has had. Transferring patient is incredibly complicated due [place]. Discussed immunosuppression with Dr. Rodriguez (transplant rn psych) at [facility]--he recommended the following: decreasing prednisone to 5mg daily, hold cellcept until culture data back, discharge on 500 bid cellcept, 2 grams morning tacrolimus and 1gram at night (continue this during admission). Dr. Rodriguez requesting daily updates at [phone], will need 2 weeks of therapy on discharge minimum. Recommends discharge to [facility] after stabilization and culture data returns. He is definitely better today. Continue Current ABx pending ID consult. Dose of Transplant meds lowered as per recommendations from Dr Rodriguez. Prograf level pending. (2) Febrile illness, acute: Feels much better now. He is immunocompromised with Recent transplant and meds as well as prior HIV even though has Undetectable levels. Blood C/s growing e coli and also GPC clusters. Did review ID consult. However he feels much better today already. this is good sign. (3) Electrolyte abnormality: had low Na of 130 and low mag--Now both better after correction. He will need some mag supplement given his Chronic Diarrhea and Still poor intake S---today he feels much better. No fever > 36 hrs now. BP getting normal now. Blood Culture report back-- E Coli as well as GPC clusters. Also Parainfluenzae + ve ROS--See HPI. Otherwise 12 Systems reviewed and negative Physical Exam Physical Exam: Gen: AAo x 3. Talkative as always. good spirit HEENT: Moist mucous membranes. Neck: Supple, No JVD. Lungs: No Respiratory distress. b/l clear CV: RRR, no edema. Abdomen:Soft non tender. MSK: No joint swelling, no redness. Skin: No rashes, petechiae, lesions. Normal color per patient. surgical site intact, no tenderness to palpation Results & Data Vital Signs (Past 12 Hours) Vital Signs Temp Pulse Pulse Resp BP Pulse Ox O2 Del Method 04/13/25 07:43 36.5 C 76 20 122/70 95 Room Air 04/13/25 07:37 75 04/13/25 03:10 36.4 C L 67 18 127/68 98 Room Air
[2025-04-13] MEDS: SODIUM CHLORIDE 0.9% 1,000 ML IV SCH (12:50)
[2025-04-13] MEDS: LANTUS PER UNIT CHARGE SC ONE (12:54)
--- NOTE | 2025-04-13 13:35 | Hospitalist Progress Note ---
Date of Service April 13, 2025 Assessment & Plan (1) Chronic pancreatitis: (2) LBBB (left bundle branch block): (3) S/P kidney transplant: (4) DM type 2 (diabetes mellitus, type 2): (5) Immunosuppressed status: (6) HIV (human immunodeficiency virus infection): (7) CAD (coronary artery disease): (8) Pyelonephritis of transplanted kidney: Plan 70 yo male with pmhx of renal transplant (03/03/2025 at [facility], hx of dialysis, 03/15 admission for early 2A ACR treated with thymo/steroids, EBV R+, CMV risk intermediate (D+/R+). 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 Acute Transplant Kidney Pyelonephritis Immunocompromised State E. coli bacteremia Staph epidermidis positive in blood culture -Patient presented to the hospital with fever and rigors. -CT abdomen/pelvis ordered by provider shows evidence of pyelonephritis of transplant kidney, and cystitis - Admitting discussed extensively with transfer center and [facility] renal transplant team, will stabilize patient here, discuss daily with transplant team at number below as transfer across state lines is very difficult -UA with 2+ leukocytes and extensive WBC along with imaging findings of pyelonephritis concerning -Blood culture from out of 4 positive for E. coli; 1 out of 4 positive for gram-positive cocci in clusters. Plan: Continue on IV antibiotics while hospitalization; plan to transition to p.o. antibiotic at discharge as per infectious disease recommendation Plan to give 1 L of IV fluids as per infectious disease recommendation -tacrolimus levels daily (discussed transplant team at [facility], do not need immediate results given frequent hospitalizations and their knowledge of the patient) -hold any nephrotoxic agents -Updated Dr. Rodriguez from transplant nephrology at [place] at [phone] over the phone on 04/13/2025; his appointment is rescheduled to April 18, 2025. Plan to resume CellCept after repeat blood cultures are negative. Continue on tacrolimus; continue decreased dose of prednisone 5 mg daily at the time of discharge #HIV -viral load undetectable 03/22/2025 Plan: -f/u viral load, ordered -continue biktarvy #Chronic Pancreatitis -continue creon #Depression -continue fluoxetine #CAD s/p Stents #HFrecEF (EF 55%) -continue metoprolol succinate 25 mg daily, aspirin and lipitor -hold nifedipine due to relative hypotension #Severe Esophagitis -per EGD/EUS at [facility] Plan: -continue protonix PO bid per [facility] recs (8 weeks therapy total) #Hypomagnesemia -replenish #DM Type 2 -elevated glucose on arrival -no elevated AG Plan: -restart home lantus, SSI -pharmacy consult given transplant patient Time spent evaluating patient, direct bedside care, chart review, placing orders, interpretation of diagnostic studies, discussion with consultants, patient, and family members, as well as other required patient management activities is 51 minutes Please note the above document was generated using voice recognition software. It may contain grammatical, syntax or spelling errors. Any formal questions or concerns about the content, text or information contained within the body of this dictation should be directly addressed to the provider for clarification Admission and Anticipated Discharge Date Admission Date: April 11, 2025 Subjective Patient seen and examined at bedside. He continues to report that he is feeling better He reports that his energy is still low but is gradually improving He is voiding without any difficulty. No significant events overnight Review of Systems Review of Systems: All systems reviewed & are unremarkable except as noted in Subjective Physical Exam Physical Exam: Constitutional: WD/WN, vitals as above, NAD, sitting up in bed, pleasant, conversing easily Respiratory: normal respiratory effort, lungs clear to auscultation, no wheeze, rales, rhonchi. Normal insp/exp effort, no accessory muscle use Cardiovascular: RRR, no murmur, no edema Vessels: no JVD or carotid bruit Chest: normal inspection of chest Abdomen: normal bowel sounds, soft, nontender, no hepatosplenomegaly Musculoskeletal: no cyanosis or clubbing, extremities motor strength 5/5 Skin: no rashes, warm and dry normal turgor Neurologic: PERRL, EOMI, accommodation nl, no face palsy, no dysarthria CN's II- XI intact bilaterally and moves all extremities Psychiatric: A+Ox3, euthymic affect Results & Data Results & Data Vital Signs (Past 12 Hours) Vital Signs Temp Pulse Pulse Resp BP Pulse Ox O2 Del Method 04/13/25 11:17 36.6 C 69 18 108/63 96 Room Air 04/13/25 07:43 36.5 C 76 20 122/70 95 Room Air 04/13/25 07:37 75 04/13/25 03:10 36.4 C L 67 18 127/68 98 Room Air (4) DM type 2 (diabetes mellitus, type 2) Diabetes mellitus detention insulin use: with detention use Diabetes mellitus complication status: with kidney complications Diabetes mellitus complication detail: with chronic kidney disease Chronic kidney disease stage: on chronic di alysis Qualified Code(s): E11.22 - Type 2 diabetes mellitus with diabetic chronic kidney disease; N18.6 - End stage renal disease; 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 transplanted heart: [place] heart Associated angina: unspecified whether angina present Qualified Code(s): I25.10 - Atherosclerotic heart disease of [place] coronary artery without angina pectoris
--- NOTE | 2025-04-13 15:06 | Pharmacy Report ---
Pharmacy Glycemic Short Note 2 - Date of Service April 13, 2025 - Glycemic Short BSG Results (Last 24 hours): 04/12/25 04/12/25 04/13/25 17:11 20:11 04:13 Glucose 244 H POC Glucose 317 H* 292 H 04/13/25 04/13/25 04/13/25 07:58 11:49 11:49 Glucose POC Glucose 260 H 345 H* 346 H* OUTPATIENT ANTIDIABETIC REGIMEN: * Fiasp 10 units SQ TIDM * Lantus 15 units SQ HS * HbA1c 10.3% (09/22/24) ASSESSMENT: 04/13 * Patient received total of 62 units of insulin yesterday of which 20 units were basal insulin * Fasting BSG >200 mg/dL - will titrate up basal more today. Will give 30 units this AM and have scale on for HS * Tightened novolog also this AM 04/12 * Patient received total of 33 units of insulin yesterday, of which 10 units were basal insulin. BSGs in 300s last evening, given IV insulin bolus x 1 * Fasting BSG 182 mg/dl - will give home dose Lantus this AM and have scale on for this evening * Plan to tighten novolog with lunch time check as blood sugar rising back up >300. Does appear AM insulin given closer to ~1030 04/11 * Tad is a 70 year old male admitted with fevers, chills and nausea status post kidney transplant 03/03/25 with a history of type 2 diabetes mellitus. Pharmacy has been consulted to assist with glycemic management while inpatient. * BSGs upon admission elevated, will initiate basal insulin at approximately ~60 of home basal dose. * NovoLog at a weight based stress of 2. PLAN FOR INPATIENT GLYCEMIC CONTROL: * Hold outpatient oral diabetes medications * Basal insulin * Lantus 30 units daily * Lantus 0-5 units HS * Bolus insulin * NovoLog per scale ACHS or Q6hrs while NPO * Goal Range: Low 110 mg/dL - High 140 mg/dL * Correction Factor: 20 mg/dL/unit * Nutritional / Prandial insulin per carb ratio of 1 unit per 6 grams CHO consumed
--- NOTE | 2025-04-13 22:53 | Electrocardiogram Report ---
Test Reason : Blood Pressure : */* mmHG Vent. Rate : 111 BPM Atrial Rate : 111 BPM P-R Int : 176 ms QRS Dur : 156 ms QT Int : 356 ms P-R-T Axes : 36 -45 120 degrees QTcB Int : 484 ms Sinus tachycardia Left axis deviation Left bundle branch block Abnormal ECG When compared with ECG of 23-Dec-2024 06:57, UT interval has decreased Vent. rate has increased by 41 bpm Left bundle branch block is now Present Confirmed by Armando Skinner ([id number]) on 04/13/2025 10:52:29 PM Referred By: REFERRED SELF Confirmed By: Armando Skinner
[2025-04-14] MEDS: INSULIN ASPART PER UNIT CHARGE SC SCH (00:55)
[2025-04-14 05:45] LABS: Hematocrit (blood only) 29.4 % (42.0-52.0); Hemoglobin 9.9 g/dl (14.0-18.0); Immature Granulocytes # (auto) 0.05 K/uL (0.01-0.20); Immature Granulocytes % (auto) 1.0 %; Mean Corpuscular Hemoglobin 28.9 pg (25.0-34.0); Mean Corpuscular Volume 85.7 fL (80.0-100.0); Platelet Count 161 K/uL (130-400); RDW Standard Deviation 46.2 fL (36.4-46.3); Red Blood Count 3.43 M/uL (4.70-6.10); White Blood Count 5.26 K/ul (4.8-10.8)
[2025-04-14 06:04] LABS: Alanine Aminotransferase 12.0 U/L (7-52); Albumin Globulin Ratio 1.5 (0.9-2); Alkaline Phosphatase 71.0 U/L (34-104); Anion Gap 8.0 (3-11); Bilirubin,Total 0.6 mg/dl (0.2-1.0); Blood Urea Nitrogen 16.0 mg/dl (6-23); Calcium 9.9 mg/dl (8.6-10.3); Carbon Dioxide 23.0 mmol/L (21-32); Chloride 105.0 mmol/L (98-107); Creatinine Clr Calc Pharmacy 53.4 ml/min; Globulin 2.2 gm/dl (2.5-4.0); Glucose 106.0 mg/dl (70-99(Fasting)); Magnesium 1.6 mg/dl (1.7-2.4); Potassium 3.8 mmol/L (3.5-5.1); Sodium 136.0 mmol/L (136-145); Total Protein 5.5 gm/dl (6.0-8.3)
[2025-04-14] MEDS: MAGNESIUM SULFATE / D5W 1 GM/100 ML BAG IV SCH (08:21)
[2025-04-14 08:27] VITALS: RESP 20
[2025-04-14] MEDS ORDERED: cefTRIAXone SODIUM 2,000 MG/50 ML BAG IV STA (09:37)
[2025-04-14] MEDS: LANTUS PER UNIT CHARGE SC SCH (10:11)
[2025-04-14 11:27] VITALS: BP 102/62; PULSE 83; TEMP 97.5; O2SAT 95
[2025-04-14] MEDS: cefTRIAXone SODIUM 2,000 MG/50 ML BAG IV ONE (12:26)
--- NOTE | 2025-04-14 13:55 | Discharge Summary ---
Date of Service April 14, 2025 Admission HPI Per Admitting Provider 70 yo male with pmhx of renal transplant (03/03/2025 at [facility], hx of dialysis, 03/15 admission for early 2A ACR treated with thymo/steroids, EBV R+, CMV risk intermediate (D+/R+). 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 Had renal transplant on 03/03/2025, on prednisone 5 mg bid, MMF 1gram bid, prograf target 10-12, had early rejection on 03/15, admission on 03/26 for fevers: per admission note 03/26, severe erosive gastritis on EGD noted, PPI BID x8 weeks, MRCP then subsequent EUS for pancreatic mass with extensive varices noted throughout duodenum. In the ED, had xray and CT head that was unremarkable, given one dose of cefepime, admitted to medicine for further workup. Patient seen and examined at bedside. Patient not doing great today. States he woke up this more with fevers, chills, muscle aches. Does have some nausea and abdominal pain, which is chronic for him due to his pancreatitis. Did fall Wednesday and hit his head but per him workup was negative. Has had some other falls at home recently as well all of which he claims has been from clumsiness. Denies any urinary symptoms or concerns at this time Discussed case extensively with transplant team at [facility]. Transferring patient is incredibly complicated [place]. Discussed immunosuppression with Dr. Rodriguez (transplant rubber goods inspector tester) at [facility], recommended the following: decreasing prednisone to 5mg daily, hold cellcept until culture data back, discharge on 500 bid cellcept, 2grams morning tacrolimus and 1gram at night (continue this during admission). Dr. Rodriguez req uesting daily updates at [phone], will need 2 weeks of therapy on discharge minimum. Recommends discharge to [facility] after stabilization and culture data returns. Discussed case with hospital medicine director Dr[facility]. Admission Exam Per Admitting Provider Gen: A&O 3 NAD, mild cachexia/sarcopenia noted HEENT: NCAT, EOMI, not icteric. External ears normal. No rhinorrhea. Moist mucous membranes. Neck: Supple, full range of motion, no observable masses, No meningeal sign. Lungs: No Respiratory distress. CV: RRR, no edema. Abdomen: trace tenderness in epigastric region MSK: No joint swelling, no redness. Skin: No rashes, petechiae, lesions. Normal color per patient. surgical site intact, no tenderness to palpation Neuro: Normal Gait, Grossly intact. Psych: Appropriate for situation. Principal Diagnosis Acute Transplant Kidney Pyelonephritis Immunocompromised State E. coli bacteremia Staph epidermidis positive in blood culture Discharge Exam Constitutional: WD/WN, vitals as above, NAD, sitting up in bed, pleasant, conversing easily Respiratory: normal respiratory effort, lungs clear to auscultation, no wheeze, rales, rhonchi. Normal insp/exp effort, no accessory muscle use Cardiovascular: RRR, no murmur, no edema Vessels: no JVD or carotid bruit Chest: normal inspection of chest Abdomen: normal bowel sounds, soft, nontender, no hepatosplenomegaly Musculoskeletal: no cyanosis or clubbing, extremities motor strength 5/5 Skin: no rashes, warm and dry normal turgor Neurologic: PERRL, EOMI, accommodation nl, no face palsy, no dysarthria CN's II- XI intact bilaterally and moves all extremities Psychiatric: A+Ox3, euthymic affect Discharge Data Allergies Allergy/AdvReac Type Severity Reaction Status Date / Time No Known Allergies Allergy Verified 01/23/25 09:44 Consultations 04/11/25 12:21 ED Decision to Admit Stat 04/11/25 19:47 Consult Infectious Diseases Routine Consult Nephrology Routine Ordered Studies 04/11/25 11:33 CT head/brain wo con Stat 04/11/25 13:12 CT abd pelvis IV con only Urgent Hospital Course (1) Chronic pancreatitis: (2) LBBB (left bundle branch block): (3) S/P kidney transplant: (4) DM type 2 (diabetes mellitus, type 2): (5) Immunosuppressed status: (6) HIV (human immunodeficiency virus infection): (7) CAD (coronary artery disease): (8) Pyelonephritis of transplanted kidney: Plan 70 yo male with pmhx of renal transplant (03/03/2025 at [facility], hx of dialysis, 03/15 admission for early 2A ACR treated with thymo/steroids, EBV R+, CMV risk intermediate (D+/R+). 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 Acute Transplant Kidney Pyelonephritis Immunocompromised State E. coli bacteremia Staph epidermidis positive in blood culture -Patient presented to the hospital with fever and rigors. -CT abdomen/pelvis ordered by provider shows evidence of pyelonephritis of transplant kidney, and cystitis - Admitting discussed extensively with transfer center and [facility] renal transplant team, will stabilize patient here, discuss daily with transplant team at number below as transfer across state lines is very difficult -UA with 2+ leukocytes and extensive WBC along with imaging findings of pyelonephritis concerning -Blood culture from out of 4 positive for E. coli; 1 out of 4 positive for gram-positive cocci in clusters. Repeat blood cultures negative During the hospitalization, patient was admitted to medical floor. Infectious disease and nephrology was consulted for comanagement. Patient reported significant improvement in his symptoms after few days of IV antibiotic; he was switched over to oral Augmentin for 12 more days. Care was coordinated with patient's transplant rubber goods inspector tester; at the time of the discharge-prednisone dosage was decreased to 5 mg daily. Patient to follow-up with his transplant rubber goods inspector tester on April 18, 2025. Patient's creatinine remained within normal range throughout the hospitalization. Patient's insulin dose was increased based on the blood glucose during the hospitalization. Patient was recommended to hold nifedipine for a few more days as his blood pressure was on the lower side while recovering from sepsis. Please note the above document was generated using voice recognition software. It may contain grammatical, syntax or spelling errors. Any formal questions or concerns about the content, text or information contained within the body of this dictation should be directly addressed to the provider for clarification Total Time Total Time Spent Total Time Spent (In Minutes): 45 Discharge Plan Discharge Items Patient Disposition: Home - Self-Care Reason For Visit: FEBRILE ILLNESS Discharge Diagnosis: Acute Transplant Kidney Pyelonephritis Immunocompromised State E. coli bacteremia Condition on Discharge: Good Activity: Resume your previous activity Non-emergency contact: Primary Care Provider Call non-emergency contact if: you have any medication questions and your symptoms worsen Follow-up/Referrals: Antonio Colon MD [Primary Care Provider] - Diet: Regular Addtl Attending Provider Instructions: You were admitted to the hospital due to urinary tract infection and infection in your blood. You were treated with antibiotic during the hospitalization. To complete the antibiotic course, you are prescribed Augmentin to be taken twice a day starting tomorrow morning for next 12 days The following changes have been made to your medication regimen; Take prednisone 5 mg once a day instead of twice a day. Resume taking CellCept from tomorrow morning Hold nifedipine(antihypertensive) until 04/17/2025 Increase the dose of Lantus to 25 units from 15 units at night. Your blood glucose have been on the higher side due to use of steroids(prednisone) Pending Studies at Discharge: No Stand-Alone Forms: My [facility] [employer], Smoking Cessation Medications and DC Order Prescriptions: New amoxicillin-pot clavulanate 875-125 mg tablet 1 tab PO BID 12 Days Qty: 24 0RF Continued atorvastatin 40 mg tablet 40 mg PO QAM fluoxetine 20 mg capsule 20 mg PO QAM multivitamin Tablet 1 tab PO QAM Rx Instructions: otc unable to verify metoprolol succinate 25 mg tablet extended release 24 hr 25 mg PO QAM aspirin 81 mg Tablet,Delayed Release (Dr/Ec) 81 mg PO QAM Rx Instructions: otc unable to verify pantoprazole 40 mg tablet,delayed release (DR/EC) 40 mg PO DAILY valganciclovir [Valcyte] 450 mg tablet 450 mg PO DAILY loperamide 2 mg capsule 2 mg PO DIRECTED PRN (Reason: loose stools) sulfamethoxazole-trimethoprim 400-80 mg tablet 1 tab PO BID famotidine 20 mg tablet 20 mg PO DAILY PRN (Reason: Acid Reflux) tamsulosin 0.4 mg capsule 0.4 mg PO DAILY Creon 24,000-76,000 -120,000 unit capsule,delayed release(DR/EC) 1 cap PO .WITH MEALS Biktarvy 50-200-25 mg tablet 1 tab PO DAILY CellCept 0 mg PO UD Patient Comments: 04/11-- Pt isnt sure of the strength Rx Instructions: takes 2 po am and 2 po pm. Prograf 0 mg PO DIRECTED Patient Comments: 04/11-- Pt isnt sure of the strength levothyroxine 25 mcg tablet 25 mcg PO DAILY Patient Comments: 04/11- per pt, he still takes medication Fiasp FlexTouch U-100 Insulin 100 unit/mL (3 mL) insulin pen 10 unit SUBCUT TIDWMEAL Changed prednisone 5 mg tablet 5 mg PO DAILY Qty: 0 0RF insulin glargine [Lantus Solostar U-100 Insulin] 100 unit/mL (3 mL) insulin pen 25 unit SUBCUT HS Qty: 0 0RF Held nifedipine 30 mg Tablet Extended Release 30 day PO DAILY Qty: 0 Hold Instructions: Resume on 04/18/25. Discharge Orders: Discharge Order (Routine); Ordered 04/14/25 Ordered By: William Pinto Admission Data Admit Date/Time: 04/11/25 13:12 Attending Provider: William Pinto Admit Provider: Kevin Lloyd Primary Care Provider: Antonio Colon Other Providers: Kevin Lloyd; Bryn Gaviria; Reji Bradley; Jerod Ayers I.; Gilbert Alexis II; Shirley Galloway; Jay Jay Ruiz; Daniel Sprague; Elisabeth Malik; Chikis Carvajal; [facility] Other Interventions: Discharge Summary Assessment (RN) Last Done: 04/14/25 13:28
[2025-04-16 02:43] LABS: HIV 1 RNA PCR Copies/ML 30.0 copies/mL (NOT DETECTED)
== END 2025-04-14 13:40 | disposition home health service (06) | DRG 699 ==
LOC: ED 09:38 → SUATTDRO 13:12 → 2W 13:12

== ENCOUNTER 2025-05-12 10:41 | Inpatient (IN) ==
[2025-05-12] MEDS: SODIUM CHLORIDE 0.9% 1,000 ML IV SCH (11:28)
[2025-05-12 11:32] LABS: Hematocrit (blood only) 37.8 % (42.0-52.0); Hemoglobin 12.5 g/dl (14.0-18.0); Mean Corpuscular Hemoglobin 29.6 pg (25.0-34.0); Mean Corpuscular Volume 89.4 fL (80.0-100.0); Platelet Count 137 K/uL (130-400); RDW Standard Deviation 51.6 fL (36.4-46.3); Red Blood Count 4.23 M/uL (4.70-6.10); White Blood Count 11.61 K/ul (4.8-10.8)
[2025-05-12] MEDS: SODIUM CHLORIDE 0.9% 500 ML IV ONE ×2 (11:47→16:14)
--- NOTE | 2025-05-12 11:52 | XRay Report ---
Clinical History: Sepsis Technique: A frontal view of the chest was obtained Comparison is made to the prior examination dated 04/11/2025 Findings: There are no confluent pulmonary infiltrates. The heart size is within normal limits. No pleural effusion or pneumothorax is seen. There is elevation of the left hemidiaphragm No fracture is noted. No foreign body is seen Impression: No active disease Electronically signed by eGr Arnold 05-12-2025 11:51 AM
[2025-05-12] MEDS: PIPERACILLIN/TAZOBACTAM 4.5 GM/120 ML BAG IV ONE (11:59)
[2025-05-12 12:01] LABS: Immature Granulocytes # (auto) 0.24 K/uL (0.01-0.20); Immature Granulocytes % (auto) 2.1 %; Ovalocytes 1+; Polychromasia 1+; Tear Drop Cells 1+
[2025-05-12 12:04] LABS: Alanine Aminotransferase 21.0 U/L (7-52); Alkaline Phosphatase 81.0 U/L (34-104); Anion Gap 10.0 (3-11); Appearance Urine Turbid (Clear); Bacteria Urine Automated 4+ (None Seen); Bilirubin,Total 1.6 mg/dl (0.2-1.0); Blood Urea Nitrogen 23.0 mg/dl (6-23); Calcium 10.5 mg/dl (8.6-10.3); Carbon Dioxide 22.0 mmol/L (21-32); Chloride 98.0 mmol/L (98-107); Creatinine Clr Calc Pharmacy 42.5 ml/min; Glucose 318.0 mg/dl (70-99(Fasting)); Glucose Urine UA 2+ (Negative); Magnesium 1.3 mg/dl (1.7-2.4); Potassium 4.1 mmol/L (3.5-5.1); Sodium 130.0 mmol/L (136-145); Total Protein 7.0 gm/dl (6.0-8.3); WBC Urine Automated >50 /hpf (0-5)
[2025-05-12 12:13] LABS: Base Excess VBG -17.3 mEq/L; HCO3 VBG 7 mmol/L; Oxygen Saturation VBG < 60.0 %; PCO2 VBG 16 mmHg (38-50); PO2 VBG < 20 mmHg; pH VBG 7.26 (7.36-7.41)
[2025-05-12 12:19] LABS: INR 1.1 (0.9-1.1); Partial Thromboplastin Time 32 Seconds (21-31); Prothrombin Time 12.3 Seconds (9.0-12.0)
--- NOTE | 2025-05-12 12:36 | Emergency Department Note ---
History of Present Illness General Chief complaint: Urinary Symptoms Stated complaint: INFECTION Time Seen by Provider: 05/12/25 11:00 History of Present Illness Provider complaint: Dysuria Onset (ago): day(s) 2 70-year-old male on immunosuppression for kidney transplant in February presents to the emergency department for dysuria. Patient reports dysuria for the last 2 days. He reports chills. He reports nausea. No abdominal pain. No hematuria. No difficulty passing urine. No cough. Home Medications Medication Instructions Recorded Confirmed Type atorvastatin 40 mg tablet 40 mg PO QAM 01/06/22 05/12/25 History fluoxetine 20 mg capsule 20 mg PO QAM 01/06/22 05/12/25 History multivitamin 1 tab PO QAM 01/06/22 05/12/25 History aspirin 81 mg tablet,delayed 81 mg PO QAM 12/30/23 05/12/25 History release metoprolol succinate 25 mg 25 mg PO QAM 12/30/23 05/12/25 History tablet,extended release 24 hr levothyroxine 25 mcg tablet 25 mcg PO DAILY 01/23/24 05/12/25 History nifedipine 30 mg tablet,extended 30 day PO DAILY ##0 03/20/24 05/12/25 History release insulin aspart 10 unit subcut TIDWMEAL 09/21/24 05/12/25 History (niacinamide)(U-100) 100 unit/mL(3 mL) subcutaneous pen (Fiasp FlexTouch U-100 Insulin) pantoprazole 40 mg tablet,delayed 40 mg PO DAILY 12/23/24 05/12/25 History release Prograf 0 mg PO DIRECTED 04/11/25 05/12/25 History bictegravir 50 mg-emtricitabine 1 tab PO DAILY 04/11/25 05/12/25 History 200 mg-tenofovir alafenam 25 mg tablet (Biktarvy) famotidine 20 mg tablet 20 mg PO DAILY PRN Acid Reflux 04/11/25 05/12/25 History [id number]-[id number] 1 cap PO .WITH MEALS 04/11/25 05/12/25 History 24,000-76,000-120,000 unit capsule,delayed rel (Creon) loperamide 2 mg capsule 2 mg PO DIRECTED PRN loose 04/11/25 05/12/25 History stools mycophenolate mofetil 500 mg 500 mg PO BID ##0 04/11/25 05/12/25 History tablet (CellCept) sulfamethoxazole 400 1 tab PO BID 04/11/25 05/12/25 History mg-trimethoprim 80 mg tablet tamsulosin 0.4 mg capsule 0.4 mg PO DAILY 04/11/25 05/12/25 History valganciclovir 450 mg tablet 450 mg PO DAILY 04/11/25 05/12/25 History (Valcyte) insulin glargine 100 unit/mL (3 25 unit (0.25 mL) subcut HS #0 mL 04/14/25 05/12/25 Rx mL) subcutaneous pen (Lantus Solostar U-100 Insulin) prednisone 5 mg tablet 5 mg PO DAILY #0 tabs 04/14/25 05/12/25 Rx Allergies Allergy/AdvReac Type Severity Reaction Status Date / Time No Known Allergies Allergy Verified 01/23/25 09:44 Past Med/Surg History Problem List (Updated 05/12/25 @ 12:39 by Eris Lacy MD) Acute UTI (Acute) Sepsis (Acute) Bacteremia Electrolyte abnormality Parainfluenza infection (Acute) Hx of kidney transplant (Acute) Febrile illness, acute (Acute) Pyelonephritis of transplanted kidney S/P kidney transplant Surgical wound, non healing (Acute) Abscess of chest wall (Acute) Abscess of chest wall Chronic pancreatitis Gastritis LBBB (left bundle branch block) Lymphadenopathy Prolonged QT interval End stage chronic kidney disease (Acute) Esophagitis (Acute) Chest pain (Acute) Duodenal ulcer Nephrolithiasis Acute blood loss anemia Upper GI bleed ESRD (end stage renal disease) on dialysis Acute GI bleeding (Acute) Hypertension Peripheral neuropathy Subungual hematoma of fourth toe of left foot Septic shock Hydronephrosis concurrent with and due to calculi of kidney and ureter Metabolic acidosis (Acute) Acute dehydration (Acute) Diarrhea (Acute) YASIR (acute kidney injury) (Acute) DM type 2 (diabetes mellitus, type 2) Immunosuppressed status (Acute) HIV (human immunodeficiency virus infection) CKD (chronic kidney disease) stage 4, GFR 15-29 ml/min History of left bundle branch block (LBBB) CAD (coronary artery disease) Acute hyperglycemia (Acute) Syncope (Acute) Medical History History of COVID-19 2020 Hypertension Diabetes mellitus Hx of sepsis hospitalized at [facility] January 2024 Port-A-Cath in place ESRD (end stage renal disease) on dialysis [facility] in [place] > Tues/ Thurs / Sat History of kidney stones Osteoarthritis Chronic lower back pain History of pancreatitis History of skin cancer [place] (hard of hearing) HLD (hyperlipidemia) History of myocardial infarction 2016 & 2019 Sleep apnea no device Diverticulosis GERD (gastroesophageal reflux disease) IBS (irritable bowel syndrome) Precancerous lesion rectal CAD (coronary artery disease) Per patient, stenting x 5 in 2016 and restenting of 1 vessel performed in July 2020 Depression HIV (human immunodeficiency virus infection) Surgical History EIC (epidermal inclusion cyst) (02/13/25) Skin, right upper chest, excision: in office procedure Dr. Silver - Inflamed epidermal cyst History of esophagogastroduodenoscopy (EGD) S/P ureteral stent placement History of removal of ureteral stent History of cystoscopy History of colonoscopy History of cholecystectomy History of cardiac catheterization 2016 - stents 2019 -- restenting x 1. [facility] Family History Mother Heart disease Social History Smoking Status: Never smoker Tobacco Type: Cigarettes Second Hand Exposure: No; Do You Dip or Chew Tobacco: No; Hx Alcohol Use: Yes Alcohol type: beer Alcohol Intake Frequency: Monthly or Less Hx Substance Use: No Preferred Language: Portuguese Communication Ability: Effective Visual Impairment: Limited Hearing Ability: Hard of Hearing Anesthesiology Crna Required: No Beliefs That Will Affect Care: None Current Living Situation: Alone Current Living Situation Comment: home Feels Safe at Home: Yes Diet: regular caffeine: Yes Assistive Devices: Cane and Glasses Physical Exam Vital Signs Vital Signs - 24 hr 05/12/25 10:56 05/12/25 11:15 05/12/25 11:18 Temperature 37.1 C Temperature Source Oral Pulse Rate 123 H Pulse Rate [Apical] 110 H Respiratory Rate 19 24 Respiratory Effort / Characteristics Non-Labored Spontaneous Respiratory Depth Normal Blood Pressure 82/54 L Blood Pressure [Right Arm] 135/72 Blood Pressure Mean 63 Blood Pressure Mean [Right Arm] 93 Pulse Oximetry 97 97 Oxygen Delivery Method Room Air Room Air Sepsis Recent Fever Within 48 Hours Yes Sepsis New/Unexplained Change in Mental Status No Sepsis Action Taken by Nursing Physician Notified 05/12/25 11:30 05/12/25 11:45 05/12/25 12:00 Temperature Temperature Source Pulse Rate Pulse Rate [Apical] 105 H 108 H 96 H Respiratory Rate 22 18 18 Respiratory Effort / Characteristics Respiratory Depth Blood Pressure Blood Pressure [Right Arm] 113/70 106/73 127/52 L Blood Pressure Mean Blood Pressure Mean [Right Arm] 84 84 77 Pulse Oximetry 96 98 99 Oxygen Delivery Method Room Air Sepsis Recent Fever Within 48 Hours Sepsis New/Unexplained Change in Mental Status Sepsis Action Taken by Nursing 05/12/25 12:04 05/12/25 12:15 Temperature Temperature Source Pulse Rate 95 H Pulse Rate [Apical] 96 H Respiratory Rate 21 Respiratory Effort / Characteristics Respiratory Depth Blood Pressure Blood Pressure [Right Arm] 120/61 Blood Pressure Mean Blood Pressure Mean [Right Arm] 80 Pulse Oximetry 97 Oxygen Delivery Method Room Air Sepsis Recent Fever Within 48 Hours Sepsis New/Unexplained Change in Mental Status Sepsis Action Taken by Nursing Physical Exam GENERAL: oriented to person, place, and time. appears well-developed and well- nourished. HENT: Exam performed. - Head: Normocephalic and atraumatic. EYES: Conjunctivae and EOM are normal. Right eye exhibits no discharge. Left eye exhibits no discharge. No scleral icterus. NECK: Normal range of motion. Neck supple. No JVD present. CV: Tachycardic rate, regular rhythm, normal heart sounds and intact distal pulses. There is no peripheral edema. Palpable radial pulses bue. PULM/CHEST: Effort normal and breath sounds normal. No respiratory distress. No stridor. no wheezes. no rales. ABD: The abdomen is soft. There is no tenderness. NEURO: Motor and sensation grossly intact. SKIN: Skin is warm and dry. He is not diaphoretic. PSYCH: normal mood and affect. Behavior is normal. Judgment and thought content normal. Course Course 1100: The patient was evaluated in room B1. A complete history and physical exam was performed Cardiac monitoring: An order was placed for continuous cardiac monitoring. The monitor shows a rate of 110 with sinus tachycardia rhythm interpreted by me Patient tachycardic and hypotensive. Sepsis protocols initiated. 1135: Patient's lactic acid is 3. 30 cc/kg normal saline bolus ordered for the patient as well as Zosyn. 1214: Vital signs stable with IV fluids. Labs are significant for a BUN of 23 creatinine 1.52 lactic acid of 3 magnesium 1.3 high-sensitivity troponin 20.4. Magnesium repletion started the emergency department. Patient now reporting chest pain. Procalcitonin level is elevated. Urinalysis does appear to be infected. Chest x-ray does not show pneumonia. Patient will be admitted to the hospitalist team. Administered Medications Discontinued Medications Sodium Chloride (Nss) 1,000 mls @ 999 mls/hr IV .Q1H1M MOSHE Stop: 05/12/25 12:00 Last Admin: 05/12/25 11:28 Dose: 999 mls/hr Documented By: EDDIE Sodium Chloride (Nss) 500 mls @ 999 mls/hr IV .Q31M ONE Stop: 05/12/25 12:00 Last Infusion: 05/12/25 12:27 Dose: Infused Documented By: Admin: 05/12/25 11:47 Dose: 999 mls/hr Documented By: EDDIE Piperacillin Sod/Tazobactam Sod (Zosyn) 4.5 gm in 120 mls @ 240 mls/hr IV NOW ONE Stop: 05/12/25 12:02 Last Infusion: 05/12/25 12:27 Dose: Infused Documented By: Admin: 05/12/25 11:59 Dose: 240 mls/hr Documented By: EDDIE Medical Decision Making Laboratory Data Attestation: I reviewed the patient's lab results. 05/12/25 11:10 05/12/25 11:10 Lab Results 05/12/25 05/12/25 Range/Units 11:10 11:56 WBC 11.61 H (4.8-10.8) K/ul RBC 4.23 L (4.70-6.10) M/uL Hgb 12.5 L (14.0-18.0) g/dl Hct 37.8 L (42.0-52.0) % MCV 89.4 (80.0-100.0) fL MCH 29.6 (25.0-34.0) pg MCHC 33.1 (32.0-36.0) g/dL RDW Std Deviation 51.6 H (36.4-46.3) fL RDW Coeff of Meera 15.9 H (11.5-14.5) % Plt Count 137 (130-400) K/uL MPV 9.8 (9.4-12.4) fL Immature Gran % (Auto) 2.1 % Neut % (Auto) 92.2 % Lymph % (Auto) 1.6 % King % (Auto) 3.9 % Eos % (Auto) 0.0 % Baso % (Auto) 0.2 % Neut # (Auto) 10.71 H (1.40-6.50) K/uL Lymph # (Auto) 0.19 L (1.20-3.40) K/uL King # (Auto) 0.45 (0.11-0.59) K/uL Eos # (Auto) 0.00 (0.00-0.50) K/uL Baso # (Auto) 0.02 (0.00-0.20) K/uL Immature Gran # (Auto) 0.24 H (0.01-0.20) K/uL Polychromasia 1+ Tear Drop Cells 1+ Ovalocytes 1+ PT 12.3 H (9.0-12.0) Seconds INR 1.1 (0.9-1.1) APTT 32 H (21-31) Seconds PTT Ratio 1.2 VBG pH 7.26 L (7.36-7.41) VBG pCO2 16 L (38-50) mmHg VBG pO2 < 20 mmHg VBG HCO3 7 mmol/L VBG O2 Saturation < 60.0 % VBG Base Excess -17.3 mEq/L Sodium 130 L (136-145) mmol/L Potassium 4.1 (3.5-5.1) mmol/L Chloride 98 (98-107) mmol/L Carbon Dioxide 22 (21-32) mmol/L Anion Gap 10 (3-11) BUN 23 (6-23) mg/dl Creatinine 1.52 H (0.6-1.4) mg/dl Est Cr Clr Drug Dosing 42.5 ml/min eGFR 48.38 BUN/Creatinine Ratio 15.1 (10-20) Glucose 318 H* (70-99(Fasting)) mg/dl Lactate 3.0 H* (0.4-2.0) mmol/L Calcium 10.5 H (8.6-10.3) mg/dl Magnesium 1.3 L (1.7-2.4) mg/dl Total Bilirubin 1.6 H (0.2-1.0) mg/dl Direct Bilirubin 0.2 (0-0.2) mg/dl AST 20 (13-39) U/L ALT 21 (7-52) U/L Alkaline Phosphatase 81 (34-104) U/L Troponin I High Sens 20.4 H (0-20) pg/ml Total Protein 7.0 (6.0-8.3) gm/dl Albumin 4.1 (3.4-5.0) gm/dl Procalcitonin 4.35 H (0-0.5) ng/ml Urine Color Yellow Urine Appearance Turbid A (Clear) Urine pH 6.0 (4.5-7.5) Ur Specific [place] 1.018 (1.000-1.030) Urine Protein 3+ H (Negative) Urine Glucose (UA) 2+ H (Negative) Urine Ketones 1+ H (Negative) Urine Blood 3+ H (Negative) Urine Nitrite Negative (Negative) Urine Bilirubin Negative (Negative) Urine Urobilinogen Negative (Negative) Ur Leukocyte Esterase 3+ H (Negative) Urine WBC (Auto) >50 H (0-5) /hpf Urine RBC (Auto) 11-20 H (0-2) /hpf U Hyaline Cast (Auto) 11-20 H (0-2) /lpf U Epithel Cells (Auto) 3-5 H (0-2) /hpf Urine Bacteria (Auto) 4+ H (None Seen) Urine Comment Imaging Data Attestation: I personally reviewed and interpreted this imaging study as follows: My Impression: Chest x-ray negative. Airway clear. No pneumothorax. No consolidation. No cardiomegaly or cephalization.. No free air under the diaphragm. No fractures of the skeletal structures. Radiologist's Impression: Chest X-Ray 05/12/25 11:00 Clinical History: Sepsis Technique: A frontal view of the chest was obtained Comparison is made to the prior examination dated 04/11/2025 Findings: There are no confluent pulmonary infiltrates. The heart size is within normal limits. No pleural effusion or pneumothorax is seen. There is elevation of the left hemidiaphragm No fracture is noted. No foreign body is seen Impression: No active disease Electronically signed by Ger Arnold 05-12-2025 11:51 AM ECG Data Attestation: I personally reviewed and interpreted this ECG as follows: Additional Comments: Sinus tachycardia with rate of 108. GA 192 QRS 160 QTc 495. Left bundle branch block present. No significant change from the EKG done in March 2025. [facility] Narrative 1100: The patient was evaluated in room B1. A complete history and physical exam was performed Cardiac monitoring: An order was placed for continuous cardiac monitoring. The monitor shows a rate of 110 with sinus tachycardia rhythm interpreted by me Patient tachycardic and hypotensive. Sepsis protocols initiated. 1135: Patient's lactic acid is 3. 30 cc/kg normal saline bolus ordered for the patient as well as Zosyn. 1214: Vital signs stable with IV fluids. Labs are significant for a BUN of 23 creatinine 1.52 lactic acid of 3 magnesium 1.3 high-sensitivity troponin 20.4. Magnesium repletion started the emergency department. Patient now reporting chest pain. Procalcitonin level is elevated. Urinalysis does appear to be infected. Chest x-ray does not show pneumonia. Patient will be admitted to the hospitalist team. Impression & Plan Sepsis, Acute UTI Discharge Plan Visit Data Chief Complaint: Urinary Symptoms Stated Complaint: INFECTION ED Provider: Eris Lacy Discharge Problem: Sepsis, Acute UTI Patient Disposition: Admitted As Inpatient Condition: Serious Forms Stand Alone Forms: My [facility] Prescriptions Prescriptions: No Action atorvastatin 40 mg tablet 40 mg PO QAM fluoxetine 20 mg capsule 20 mg PO QAM multivitamin Tablet 1 tab PO QAM Rx Instructions: otc unable to verify metoprolol succinate 25 mg tablet extended release 24 hr 25 mg PO QAM aspirin 81 mg Tablet,Delayed Release (Dr/Ec) 81 mg PO QAM Rx Instructions: otc unable to verify pantoprazole 40 mg tablet,delayed release (DR/EC) 40 mg PO DAILY valganciclovir [Valcyte] 450 mg tablet 450 mg PO DAILY loperamide 2 mg capsule 2 mg PO DIRECTED PRN (Reason: loose stools) sulfamethoxazole-trimethoprim 400-80 mg tablet 1 tab PO BID mycophenolate mofetil [CellCept] 500 mg Tablet 500 mg PO BID Qty: 0 Patient Comments: 04/11-- Pt isnt sure of the strength famotidine 20 mg tablet 20 mg PO DAILY PRN (Reason: Acid Reflux) tamsulosin 0.4 mg capsule 0.4 mg PO DAILY Creon 24,000-76,000 -120,000 unit capsule,delayed release(DR/EC) 1 cap PO .WITH MEALS Biktarvy 50-200-25 mg tablet 1 tab PO DAILY Prograf 0 mg PO DIRECTED Patient Comments: 05/12- no fill history unable to verify 04/11-- Pt isnt sure of the strength prednisone 5 mg tablet 5 mg PO DAILY Qty: 0 0RF insulin glargine [Lantus Solostar U-100 Insulin] 100 unit/mL (3 mL) insulin pen 25 unit SUBCUT HS Qty: 0 0RF levothyroxine 25 mcg tablet 25 mcg PO DAILY Patient Comments: 04/11- per pt, he still takes medication nifedipine 30 mg Tablet Extended Release 30 day PO DAILY Qty: 0 Hold Instructions: Resume on 04/18/25. Fiasp FlexTouch U-100 Insulin 100 unit/mL (3 mL) insulin pen 10 unit SUBCUT TIDWMEAL Referrals Referrals: Antonio Colon MD [Primary Care Provider] - Discharge Problem: Sepsis Qualifiers: Sepsis type: sepsis due to unspecified organism Sepsis acute organ dysfunction status: unspecified Qualified Code(s): A41.9 - Sepsis, unspecified organism
[2025-05-12 12:39] LABS: Chlamydia pneumoniae PCR Not Detected (NotDetected); Coronavirus 229E PCR Not Detected (NotDetected); Coronavirus CoV-2 (COVID19)PCR Not Detected (NotDetected); Coronavirus HKU1 PCR Not Detected (NotDetected); Coronavirus NL63 PCR Not Detected (NotDetected); Coronavirus OC43PCR Not Detected (NotDetected); Human Metapneumovirus PCR Not Detected (NotDetected); Parainfluenza Virus 1 PCR Not Detected (NotDetected); Parainfluenza Virus 2 PCR Not Detected (NotDetected); Parainfluenza Virus 3 PCR Not Detected (NotDetected); Parainfluenza Virus 4 PCR Not Detected (NotDetected); Respiratory Syncytial VirusPCR Not Detected (NotDetected); Rhinovirus/Enterovirus PCR Not Detected (NotDetected)
[2025-05-12] MEDS: MAGNESIUM SULFATE / D5W 1 GM/100 ML BAG IV SCH (13:06)
[2025-05-12] MEDS: SODIUM CHLORIDE 0.9% 1,000 ML IV ONE (13:06)
--- NOTE | 2025-05-12 13:33 | History & Physical Report ---
Date of Service May 12, 2025 Assessment & Plan (1) Sepsis: (2) Acute UTI: (3) Hx of kidney transplant: Plan Sepsis POA Acute urinary tract infection Acute kidney injury History of transplant kidney Patient with a history of transplant kidney presents with fever, chills and dysuria. Leukocytosis present on admission Lactic acid elevated on admission Urinalysis shows 3+ proteinuria, suggestive for infection. C. diff gene positive Continue normal saline; will provide 1 more liter of NSS. Obtain renal ultrasound with Doppler for the transplanted kidney. Continue on Zosyn; follow-up on urine and blood culture Case discussed with patient's transplant home health attendant over the phone at [phone] (Dr. Rodriguez) from [place]; recommended to hold CellCept until patient is seen in clinic after discharge. Recommended to continue steroids, Prograf. Also recommended 4 weeks of oral antibiotic given the recurrence of the issue after bacteremia is ruled out. Also recommended urology referral for recurrent UTI. Plan to consult infectious disease for recommendation after final cultures are finalized. Nephrology consulted for comanagement Patient is started on IV hydrocortisone 100 mg once with 50 mg every 6 hours given nausea/vomiting and sepsis. Plan to titrate down to 5 mg at the time of discharge. Started on oral vancomycin for now given C. difficile gene positive given patient has diarrhea DM Type 2 Glucose elevated on admission to 300s Will repeat HbA1c; patient's glargine was increased last admission. Will benefit from outpatient diabetic clinic. HIV -viral load Detectable during evaluation last admission Infectious disease has been consulted. 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%) -continue metoprolol succinate 25 mg daily, aspirin and lipitor -hold nifedipine Severe Esophagitis -per EGD/EUS at [facility] -continue protonix PO bid per [facility] recs (8 weeks therapy total) Hypomagnesemia- repleted DNR/DNI DVT prophylaxis heparin Time spent evaluating patient, direct bedside care, chart review, placing orders, interpretation of diagnostic studies, discussion with consultants, patient, and family members, as well as other required patient management activities is 75 minutes Please note the above document was generated using voice recognition software. It may contain grammatical, syntax or spelling errors. Any formal questions or concerns about the content, text or information contained within the body of this dictation should be directly addressed to the provider for clarification History of Present Illness Chief Complaint: Fever and chills for 2 days Dysuria for 2 days Primary Care Provider: Antonio Colon MD Past medical history of renal transplant (03/03/2025 at [facility], hx of dialysis, HIV, chronic pancreatitis, hypertension, CAD status post stent in 2018, HFpEF, chronic LBBB, depression, type 2 diabetes mellitus Last admission was in end of March to early April with transplant pyelonephritis; treated with 2 weeks of antibiotics. Patient presents to the hospital with fever, chills, fatigue for the last 2 days. He also reports dysuria for similar duration. He has not measured his temperature at home. He denies chest pain, shortness of breath, abdominal pain, flank pain, visual disturbances, weakness/numbness of any body part. On presentation to the ED he was hypotensive, afebrile and saturating well in room air. He was found to have leukocytosis. His creatinine was found to be elevated to 1.52, lactic acid was elevated along with blood glucose. Pro-Gage was also elevated. Urinalysis showed 3+ proteinuria and bacteria. Patient was given IV fluids, Zosyn and was then referred for admission. Allergies Allergy/AdvReac Type Severity Reaction Status Date / Time No Known Allergies Allergy Verified 01/23/25 09:44 Home Medications Medication Instructions Recorded Confirmed Type atorvastatin 40 mg tablet 40 mg PO QAM 01/06/22 05/12/25 History fluoxetine 20 mg capsule 20 mg PO QAM 01/06/22 05/12/25 History multivitamin 1 tab PO QAM 01/06/22 05/12/25 History aspirin 81 mg tablet,delayed 81 mg PO QAM 12/30/23 05/12/25 History release metoprolol succinate 25 mg 25 mg PO QAM 12/30/23 05/12/25 History tablet,extended release 24 hr levothyroxine 25 mcg tablet 25 mcg PO DAILY 01/23/24 05/12/25 History nifedipine 30 mg tablet,extended 30 day PO DAILY ##0 03/20/24 05/12/25 History release insulin aspart 10 unit subcut TIDWMEAL 09/21/24 05/12/25 History (niacinamide)(U-100) 100 unit/mL(3 mL) subcutaneous pen (Fiasp FlexTouch U-100 Insulin) pantoprazole 40 mg tablet,delayed 40 mg PO DAILY 12/23/24 05/12/25 History release Prograf 0 mg PO DIRECTED 04/11/25 05/12/25 History bictegravir 50 mg-emtricitabine 1 tab PO DAILY 04/11/25 05/12/25 History 200 mg-tenofovir alafenam 25 mg tablet (Biktarvy) famotidine 20 mg tablet 20 mg PO DAILY PRN Acid Reflux 04/11/25 05/12/25 History qtxffe-qaailvpv-qsexuru 1 cap PO .WITH MEALS 04/11/25 05/12/25 History 24,000-76,000-120,000 unit capsule,delayed rel (Creon) loperamide 2 mg capsule 2 mg PO DIRECTED PRN loose 04/11/25 05/12/25 History stools mycophenolate mofetil 500 mg 500 mg PO BID ##0 04/11/25 05/12/25 History tablet (CellCept) sulfamethoxazole 400 1 tab PO BID 04/11/25 05/12/25 History mg-trimethoprim 80 mg tablet tamsulosin 0.4 mg capsule 0.4 mg PO DAILY 04/11/25 05/12/25 History valganciclovir 450 mg tablet 450 mg PO DAILY 04/11/25 05/12/25 History (Valcyte) insulin glargine 100 unit/mL (3 25 unit (0.25 mL) subcut HS #0 mL 04/14/25 05/12/25 Rx mL) subcutaneous pen (Lantus Solostar U-100 Insulin) prednisone 5 mg tablet 5 mg PO DAILY #0 tabs 04/14/25 05/12/25 Rx Past Med/Surg History Problem List (Updated 05/12/25 @ 15:39 by Background Daemon) Acute UTI (Acute) Sepsis (Acute) Bacteremia Electrolyte abnormality Parainfluenza infection (Acute) Hx of kidney transplant (Acute) Febrile illness, acute (Acute) Pyelonephritis of transplanted kidney S/P kidney transplant Surgical wound, non healing (Acute) Abscess of chest wall (Acute) Abscess of chest wall Chronic pancreatitis Gastritis LBBB (left bundle branch block) Lymphadenopathy Prolonged QT interval End stage chronic kidney disease (Acute) Esophagitis (Acute) Chest pain (Acute) Duodenal ulcer Nephrolithiasis Acute blood loss anemia Upper GI bleed ESRD (end stage renal disease) on dialysis Acute GI bleeding (Acute) Hypertension Peripheral neuropathy Subungual hematoma of fourth toe of left foot Septic shock Hydronephrosis concurrent with and due to calculi of kidney and ureter Metabolic acidosis (Acute) Acute dehydration (Acute) Diarrhea (Acute) YASIR (acute kidney injury) (Acute) DM type 2 (diabetes mellitus, type 2) Immunosuppressed status (Acute) HIV (human immunodeficiency virus infection) CKD (chronic kidney disease) stage 4, GFR 15-29 ml/min History of left bundle branch block (LBBB) CAD (coronary artery disease) Acute hyperglycemia (Acute) Syncope (Acute) Medical History History of COVID-19 2020 Hypertension Diabetes mellitus Hx of sepsis hospitalized at [facility] January 2024 Port-A-Cath in place ESRD (end stage renal disease) on dialysis [facility] in [place] > Tues/ Thurs / Sat History of kidney stones Osteoarthritis Chronic lower back pain History of pancreatitis History of skin cancer [place] (hard of hearing) HLD (hyperlipidemia) History of myocardial infarction 2017 & 2019 Sleep apnea no device Diverticulosis GERD (gastroesophageal reflux disease) IBS (irritable bowel syndrome) Precancerous lesion rectal CAD (coronary artery disease) Per patient, stenting x 5 in 2016 and restenting of 1 vessel performed in July 2020 Depression HIV (human immunodeficiency virus infection) Surgical History EIC (epidermal inclusion cyst) (02/13/25) Skin, right upper chest, excision: in office procedure Dr. Silver - Inflamed epidermal cyst History of esophagogastroduodenoscopy (EGD) S/P ureteral stent placement History of removal of ureteral stent History of cystoscopy History of colonoscopy History of cholecystectomy History of cardiac catheterization 2017 - stents 2019 -- restenting x 1. [facility] Family History Mother Heart disease Social History Smoking Status: Never smoker Tobacco Type: Cigarettes Second Hand Exposure: No; Do You Dip or Chew Tobacco: No; Hx Alcohol Use: Yes Alcohol type: beer Alcohol Intake Frequency: Monthly or Less Hx Substance Use: No Preferred Language: Togolese Communication Ability: Effective Visual Impairment: Limited Hearing Ability: Hard of Hearing [employer] Required: No Beliefs That Will Affect Care: None Current Living Situation: Alone Current Living Situation Comment: home Feels Safe at Home: Yes Diet: regular caffeine: Yes Assistive Devices: Cane and Glasses Review of Systems Review of Systems: All systems reviewed & are unremarkable except as noted in Subjective Physical Exam Physical Exam: Constitutional: WD/WN, vitals as above, NAD, sitting up in bed, pleasant, conversing easily Respiratory: normal respiratory effort, lungs clear to auscultation, no wheeze, rales, rhonchi. Normal insp/exp effort, no accessory muscle use Cardiovascular: RRR, no murmur, no edema Vessels: no JVD or carotid bruit Chest: normal inspection of chest Abdomen: normal bowel sounds, soft, nontender, no hepatosplenomegaly Musculoskeletal: no cyanosis or clubbing, extremities motor strength 5/5 Skin: no rashes, warm and dry normal turgor Neurologic: PERRL, EOMI, accommodation nl, no face palsy, no dysarthria CN's II- XI intact bilaterally and moves all extremities Psychiatric: A+Ox3, euthymic affect Results & Data Results & Data Vital Signs (Past 12 Hours) Vital Signs Temp Pulse Pulse Resp BP BP Pulse Ox 05/12/25 12:36 36.8 C 05/12/25 12:35 92 H 18 119/55 L 98 05/12/25 12:15 96 H 21 120/61 97 05/12/25 12:04 95 H 05/12/25 12:00 96 H 18 127/52 L 99 05/12/25 11:45 108 H 18 106/73 98 05/12/25 11:30 105 H 22 113/70 96 05/12/25 11:18 05/12/25 11:15 110 H 24 135/72 97 05/12/25 10:56 37.1 C 123 H 19 82/54 L 97 O2 Del Method 05/12/25 12:36 05/12/25 12:35 05/12/25 12:15 Room Air 05/12/25 12:04 05/12/25 12:00 05/12/25 11:45 05/12/25 11:30 Room Air 05/12/25 11:18 Room Air 05/12/25 11:15 05/12/25 10:56 Room Air (1) Sepsis Sepsis acute organ dysfunction status: unspecified Sepsis type: sepsis due to unspecified organism Qualified Code(s): A41.9 - Sepsis, unspecified organism
[2025-05-12] MEDS: ACETAMINOPHEN 325 MG TAB PO PRN (14:26)
[2025-05-12] MEDS: SODIUM CHLORIDE 0.9% 500 ML IV SCH (14:30)
[2025-05-12 14:52] LABS: Cdiff Toxin B Gene (2yr or >) Positive Cdiff Gene (Neg)
[2025-05-12 15:26] LABS: Adenovirus F 40/41 PCR Not Detected (NotDetected); Campylobacter PCR Not Detected (NotDetected); Enteroaggregative E.coli(EAEC) Not Detected (NotDetected); Shiga-like Toxin E.coli (STEC) Not Detected (NotDetected); Vibrio species PCR Not Detected (NotDetected)
[2025-05-12] MEDS ORDERED: GLUCOSE 10 TAB/TUBE PO PRN (15:48)
[2025-05-12] MEDS ORDERED: NON-FORMULARY MEDICATION (Insulin Aspart (Niacinamide) [Fiasp Flextouch U-100 Insulin] 100 SQ SCH (15:48)
[2025-05-12] MEDS ORDERED: GLUCAGON FOR INJ 1 MG VIAL SQ PRN (15:48)
[2025-05-12] MEDS ORDERED: FAMOTIDINE 20 MG TAB PO PRN (15:48)
[2025-05-12] MEDS ORDERED: CARBOHYDRATES FOR HYPOGLYCEMIA PO PRN (15:48)
[2025-05-12] MEDS ORDERED: GLUCOSE 40% GEL 15 GM TUBE PO PRN (15:48)
[2025-05-12] MEDS ORDERED: DEXTROSE 50% 50 ML SYRINGE IV PRN (15:48)
[2025-05-12] MEDS: PIPERACILLIN/TAZOBACTAM 4.5 GM/100 ML BAG IV SCH (15:55)
[2025-05-12] MEDS ORDERED: HYDROCORTISONE SOD 100 MG in SYRINGE 0 ML IV STA (15:57)
[2025-05-12] MEDS ORDERED: PHARMACY GLYCEMIC MGMT CONSULT PRN (16:00)
[2025-05-12 16:11] LABS: Cdiff Toxin A+B Negative Cdiff Toxin (Negative)
[2025-05-12] MEDS: PROMETHAZINE 12.5 MG/50.5 ML BAG IV STA (16:11)
[2025-05-12] MEDS: HEPARIN SOD 5,000 UNIT/0.5 ML VIAL SQ SCH (16:16)
[2025-05-12] MEDS: [UNRECOGNIZED DRUG - OTHER] SCH (16:17)
[2025-05-12] MEDS: INSULIN HUMAN REGULAR PER UNIT 7 UNITS in SYRINGE 6.93 ML IV ONE (16:33)
[2025-05-12] MEDS: LANTUS PER UNIT CHARGE SQ SCH (16:34)
[2025-05-12] MEDS: HYDROCORTISONE SOD SUCCINATE 100 MG/2 ML VIAL IV STA (16:36)
[2025-05-12] MEDS: PANCREAZE (LIPASE 10,500U) CAP PO SCH (17:54)
[2025-05-12] MEDS: PANCREAZE (LIPASE 4,200U) CAP PO SCH (17:55)
[2025-05-12] MEDS: VANCOMYCIN HCL 125 MG/2.5ML SOLN PO SCH (17:56)
[2025-05-12] MEDS: CHERRY SYRUP 5 ML UDP PO SCH (17:56)
[2025-05-12] MEDS: INSULIN ASPART PER UNIT CHARGE SC SCH (18:20)
--- NOTE | 2025-05-12 18:27 | Ultrasound Report ---
Exam: Renal ultrasound. History: Emesis. Questionable UTI. Comparison:None. Findings: Note is made evaluation is slightly limited with patient experiencing emesis during the exam. Right lower quadrant transplant kidney demonstrates mild hydronephrosis. No appreciated mass or stone. No discrete fluid collection to indicate abscess. No perinephric fluid. Color flow is symmetric throughout the transplant kidney. Arcuate resistive indices measure 0.75, 0.84 and 0.74 along the superior, mid and lower pole. Right iliac artery is patent. Peak systolic velocity is 127 cm/s. Renal transplant vein is patent. Transplant renal artery peak systolic velocity measures 164 cm/s. No discrete anastomotic measurement is noted. There is a hypoechoic nonvascular through transmitting focus at the level of the pelvis which may represent the urinary bladder. [place] right kidney demonstrates increased echotexture with cysts. No stone, mass or hydronephrosis. [place] left kidney not identified. Overlying bowel gas. Impression: 1. Mild hydronephrosis right lower quadrant transplant kidney with elevated resistive indices. Elevated transplant renal artery peak systolic velocity of 164 cm/s. Transplant renal vein is patent. No stone, mass orfluid collections. Please see above for details. 2. Fluid echo focus at the level of the pelvis adjacent to the transplant kidney. Question urinary bladder. 3. Right [place] kidney with increased echogenicity and benign-appearing cysts. 4. Left [place] kidney not identified. Overlying bowel gas at this level. Electronically signed by Thanh Bearden 05-12-2025 6:27 PM
[2025-05-12] MEDS: TACROLIMUS 1 MG CAP PO SCH (19:57)
[2025-05-12] MEDS: HYDROCORTISONE SOD 50 MG in SYRINGE 0 ML IV SCH (20:52)
[2025-05-13] MEDS: SODIUM CHLORIDE 0.9% 250 ML IV ONE (00:27)
[2025-05-13] MEDS: LEVOTHYROXINE SODIUM 25 MCG TABLET PO SCH (06:09)
[2025-05-13 06:28] LABS: Hematocrit (blood only) 29.5 % (42.0-52.0); Hemoglobin 9.8 g/dl (14.0-18.0); Mean Corpuscular Hemoglobin 29.3 pg (25.0-34.0); Mean Corpuscular Volume 88.3 fL (80.0-100.0); Platelet Count 115 K/uL (130-400); RDW Standard Deviation 50.9 fL (36.4-46.3); Red Blood Count 3.34 M/uL (4.70-6.10); White Blood Count 8.34 K/ul (4.8-10.8)
[2025-05-13 06:49] LABS: Immature Granulocytes # (auto) 0.19 K/uL (0.01-0.20); Immature Granulocytes % (auto) 2.3 %; Polychromasia 1+
[2025-05-13 06:53] LABS: Anion Gap 5.0 (3-11); Blood Urea Nitrogen 24.0 mg/dl (6-23); Calcium 9.6 mg/dl (8.6-10.3); Carbon Dioxide 22.0 mmol/L (21-32); Chloride 110.0 mmol/L (98-107); Creatinine Clr Calc Pharmacy 48.4 ml/min; Glucose 232.0 mg/dl (70-99(Fasting)); Potassium 3.8 mmol/L (3.5-5.1); Sodium 137.0 mmol/L (136-145)
--- NOTE | 2025-05-13 07:30 | Electrocardiogram Report ---
Test Reason : Blood Pressure : */* mmHG Vent. Rate : 108 BPM Atrial Rate : 108 BPM P-R Int : 192 ms QRS Dur : 160 ms QT Int : 370 ms P-R-T Axes : 44 -37 121 degrees QTcB Int : 495 ms Sinus tachycardia with Premature atrial complexes Left axis deviation Left bundle branch block Abnormal ECG When compared with ECG of 11-Apr-2025 10:01, Premature atrial complexes are now Present Confirmed by Andi Hernandez ([id number]) on 05/13/2025 7:30:39 AM Referred By: Confirmed By: Andi Hernandez
[2025-05-13 07:41] LABS: Hemoglobin A1C 8.7 % (4.5-5.6)
[2025-05-13] MEDS: VALGANCICLOVIR HCL 450 MG TABLET PO SCH (08:51)
[2025-05-13] MEDS: ASPIRIN 81 MG ECTAB PO SCH (08:52)
[2025-05-13] MEDS: TAMSULOSIN HCL 0.4 MG CAP PO SCH (08:52)
[2025-05-13] MEDS: TACROLIMUS 1 MG CAP PO SCH (08:52)
[2025-05-13] MEDS: METOPROLOL SUCC 25MG EXT REL TAB PO SCH (08:52)
[2025-05-13] MEDS: MULTIVITAMIN TAB PO SCH (08:52)
[2025-05-13] MEDS: ATORVASTATIN 40 MG TAB PO SCH (08:53)
[2025-05-13] MEDS: LACTATED RINGER'S 1,000 ML IV SCH (09:01)
[2025-05-13] MEDS: MAGNESIUM SULFATE / D5W 1 GM/100 ML BAG IV SCH (09:01)
[2025-05-13] MEDS: LANTUS PER UNIT CHARGE SQ SCH (09:02)
--- NOTE | 2025-05-13 13:11 | Hospitalist Progress Note ---
Date of Service May 13, 2025 Assessment & Plan (1) Sepsis: (2) Acute UTI: (3) Hx of kidney transplant: Plan 70 yo male with pmhx of renal transplant (03/03/2025 at [facility], hx of dialysis, HIV, chronic pancreatitis, hypertension, CAD status post stent in 2018, HFpEF, chronic LBBB, depression, type 2 diabetes mellitus presenting for sepsis 2/2 complicated UTI of transplant kidney. Sepsis POA Acute urinary tract infection Acute kidney injury History of transplant kidney -Patient with a history of transplant kidney presents with fever, chills and dysuria. -Leukocytosis present on admission -Lactic acid elevated on admission -Urinalysis shows 3+ proteinuria, suggestive for infection. -C. 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 Rodriguez, left message, will call later -hold cellcept, continue steroids, continue prograf -nephrology consult, appreciate recs #Positive C. diff Gene -some diarrhea -negative toxin Plan: -pursue 14 day course of vancomycin given immunocompormised state DM Type 2 -Glucose elevated on admission to 300s -Will benefit from outpatient diabetic clinic. HIV -viral load Detectable during evaluation last admission -Infectious disease has been consulted. 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%) -continue metoprolol succinate 25 mg daily, aspirin and lipitor -hold nifedipine Severe Esophagitis -per EGD/EUS at [facility] -continue protonix PO bid per [facility] recs (8 weeks therapy total) Hypomagnesemia- repleted I spent a total of 55 minutes in direct patient care, including [id number]-[id number] time with the patient and/or family, reviewing medical records, ordering and reviewing diagnostic tests, and coordinating care with other healthcare providers. This time includes: history taking, physical examination, medical decision making, counseling, ECG interpretation, imaging interpretation, lab interpretation, orders, and education, excluding time spent in the performance of separately billed services. Admission and Anticipated Discharge Date Admission Date: May 12, 2025 Subjective Patient seen and examined at bedside. Friend present at bedside as well. Patient very familiar to this provider from prior admission. Patient feeling much better today. Fatigue, chills much better than prior. Review of Systems Review of Systems: CONSTITUTIONAL: Patient denies fevers, chills, sweats and weight changes. EYES: Patient denies any visual symptoms. EARS, NOSE, AND THROAT: No difficulties with hearing. No symptoms of rhinitis or sore throat. CARDIOVASCULAR: Patient denies chest pains, palpitations, orthopnea and paroxysmal nocturnal dyspnea. RESPIRATORY: No dyspnea on exertion, no wheezing or cough. GI: No nausea, vomiting, diarrhea, constipation, abdominal pain, hematochezia or melena. : No urinary hesitancy or dribbling. No nocturia or urinary frequency. No abnormal urethral discharge. MUSCULOSKELETAL: No myalgias or arthralgias. NEUROLOGIC: No chronic headaches, no seizures. Patient denies numbness, tingling or weakness. PSYCHIATRIC: Patient denies problems with mood disturbance. No problems with anxiety. ENDOCRINE: No excessive urination or excessive thirst. DERMATOLOGIC: Patient denies any rashes or skin changes. Physical Exam Physical Exam: Gen: A&O 3 NAD, mild sarcopenia noted HEENT: NCAT, EOMI, not icteric. External ears normal. No rhinorrhea. Moist mucous membranes. Neck: Supple, full range of motion, no observable masses, No meningeal sign. Lungs: No Respiratory distress. CV: RRR, no edema. Abdomen: Soft, nondistended, No rebound tenderness. MSK: No joint swelling, no redness. Skin: No rashes, petechiae, lesions. Normal color per patient. Neuro: Normal Gait, Grossly intact. Psych: Appropriate for situation. Results & Data Results & Data Vital Signs (Past 12 Hours) Vital Signs Temp Pulse Pulse Resp BP Pulse Ox O2 Del Method 05/13/25 11:39 36.4 C L 80 18 134/77 99 Room Air 05/13/25 07:51 36.4 C L 75 18 145/73 H 99 Room Air 05/13/25 07:36 Room Air 05/13/25 07:30 74 05/13/25 02:35 36.4 C L 67 18 122/62 98 Room Air 05/13/25 01:10 82 Laboratory Results -personally reviewed, Hgb at baseline, leukocytosis downtrended, creatinine downtrended close to back to baseline Medications Administered Acetaminophen (Acetaminophen 325 Mg Tab) 650 mg PO Q4H PRN PRN Reason: Pain or Fever Stop: 06/11/25 13:07 Last Admin: 05/12/25 14:26 Dose: 650 mg Documented By: ROMAINE Lipase/Protease/Amylase (Pancreaze (Lipase 4,200u) Cap) 1 cap PO TIDM [facility] Stop: 06/11/25 16:59 Last Admin: 05/13/25 11:17 Dose: 1 cap Documented By: Admin: 05/12/25 17:55 Dose: 1 cap Documented By: ROMAINE Lipase/Protease/Amylase (Pancreaze (Lipase 10,500u) Cap) 2 cap PO TIDM [facility] Stop: 06/11/25 16:59 Last Admin: 05/13/25 08:51 Dose: 2 cap Documented By: Admin: 05/12/25 17:54 Dose: 2 cap Documented By: ROMAINE Aspirin (Aspirin 81 Mg Ectab) [facility] Stop: 06/12/25 08:59 Last Admin: 05/13/25 08:52 Dose: 81 mg Documented By: VANNA Atorvastatin Calcium (Atorvastatin 40 Mg Tab) [facility] Stop: 06/12/25 08:59 Last Admin: 05/13/25 08:53 Dose: 40 mg Documented By: VANNA Cheney Syrup (Cheney Syrup 5 Ml Udp) 5 ml PO Q6 [facility] Stop: 05/22/25 17:59 Last Admin: 05/13/25 06:09 Dose: 5 ml Documented By: Admin: 05/13/25 00:28 Dose: 5 ml Documented By: Admin: 05/12/25 17:56 Dose: 5 ml Documented By: ROMAINE Fluoxetine HCl (Fluoxetine Hcl 20 Mg Cap) [facility] Stop: 06/12/25 08:59 Last Admin: 05/13/25 08:52 Dose: 20 mg Documented By: VANNA Heparin Sodium (Porcine) (Heparin Sod 5,000 Unit/0.5 Ml Vial) 5,000 units SQ Q8 [facility] Stop: 06/11/25 15:59 Last Admin: 05/13/25 06:22 Dose: 5,000 units Documented By: Admin: 05/12/25 20:38 Dose: 5,000 units Documented By: Admin: 05/12/25 16:16 Dose: 5,000 units Documented By: ECS Piperacillin Sod/Tazobactam Sod (Zosyn) 4.5 gm in 100 mls @ 25 mls/hr IV Q8H [facility]; Protocol Stop: 05/22/25 15:59 Last Infusion: 05/13/25 09:45 Dose: 0 mls/hr Documented By: Admin: 05/13/25 08:54 Dose: 25 mls/hr Documented By: Infusion: 05/13/25 04:12 Dose: Infused Documented By: Admin: 05/13/25 00:28 Dose: 25 mls/hr Documented By: Infusion: 05/12/25 19:39 Dose: Infused Documented By: Admin: 05/12/25 15:55 Dose: 25 mls/hr Documented By: TODD Hydrocortisone Sodium (Succinate 50 mg/ Syringe) 1 mls @ 4 mls/min IV Q6H [facility] Stop: 06/11/25 21:59 Last Admin: 05/13/25 04:09 Dose: 4 mls/min Documented By: Admin: 05/12/25 20:52 Dose: 4 mls/min Documented By: RUFUS Magnesium Sulfate/Dextrose (Magnesium Sulfate / D5w) 1 gm in 100 mls @ 50 mls/hr IV Q2H [facility] Stop: 05/13/25 13:59 Last Admin: 05/13/25 11:24 Dose: 50 mls/hr Documented By: Infusion: 05/13/25 11:01 Dose: Infused Documented By: Admin: 05/13/25 09:01 Dose: 50 mls/hr Documented By: VANNA Lactated Ringer's (Lr) 1,000 mls @ 80 mls/hr IV .[id number] [facility] Stop: 05/14/25 00:00 Last Admin: 05/13/25 09:01 Dose: 80 mls/hr Documented By: VANNA Insulin Aspart (Insulin Aspart Per Unit Charge) 0 units SC ACHS [facility] Stop: 06/11/25 16:29 Last Admin: 05/13/25 13:03 Dose: 19 units Documented By: VANNA Co-signed By: ELBERT Admin: 05/13/25 09:02 Dose: 13 units Documented By: VANNA Co-signed By: VLAD Admin: 05/12/25 20:37 Dose: 2 units Documented By: RUFUS Co-signed By: TRAVIS Admin: 05/12/25 18:20 Dose: 8 units Documented By: TODD Co-signed By: ROMAINE Insulin Glargine (Lantus Per Unit Charge) 30 units SQ [facility] Stop: 06/11/25 16:29 Last Admin: 05/12/25 16:34 Dose: 30 units Documented By: TODD Co-signed By: ROMAINE Levothyroxine Sodium (Levothyroxine Sodium 25 Mcg Tablet) 25 mcg PO DAILYBB [facility] Stop: 06/12/25 06:29 Last Admin: 05/13/25 06:09 Dose: 25 mcg Documented By: RUFUS Metoprolol Succinate (Metoprolol Succ 25mg Ext Rel Tab) 25 mg PO QAM [facility] Stop: 06/12/25 08:59 Last Admin: 05/13/25 08:52 Dose: 25 mg Documented By: VANNA Multivitamins (Multivitamin Tab) 1 tab PO QAM [facility] Stop: 06/12/25 08:59 Last Admin: 05/13/25 08:52 Dose: 1 tab Documented By: VANNA Pantoprazole Sodium (Pantoprazole 40 Mg Tab) 40 mg PO DAILY [facility] Stop: 06/12/25 08:59 Last Admin: 05/13/25 08:52 Dose: 40 mg Documented By: VANNA Tacrolimus (Tacrolimus 1 Mg Cap) 2 mg PO DAILY [facility] Stop: 06/12/25 08:59 Last Admin: 05/13/25 08:52 Dose: 2 mg Documented By: VANNA Tacrolimus (Tacrolimus 1 Mg Cap) 1 mg PO [facility] Stop: 06/11/25 20:59 Last Admin: 05/12/25 19:57 Dose: 1 mg Documented By: RUFUS Tamsulosin HCl (Tamsulosin Hcl 0.4 Mg Cap) 0.4 mg PO DAILY [facility] Stop: 06/12/25 08:59 Last Admin: 05/13/25 08:52 Dose: 0.4 mg Documented By: VANNA Valganciclovir (Valganciclovir Hcl 450 Mg Tablet) 450 mg PO DAILY [facility] Stop: 06/12/25 08:59 Last Admin: 05/13/25 08:51 Dose: 450 mg Documented By: VANNA Vancomycin HCl (Vancomycin Hcl 125 Mg/2.5ml Soln) 125 mg PO Q6 [facility] Stop: 05/22/25 17:59 Last Admin: 05/13/25 06:09 Dose: 125 mg Documented By: Admin: 05/13/25 00:30 Dose: 125 mg Documented By: Admin: 05/12/25 17:56 Dose: 125 mg Documented By: ROMAINE (1) Sepsis Sepsis acute organ dysfunction status: unspecified Sepsis type: sepsis due to unspecified organism Qualified Code(s): A41.9 - Sepsis, unspecified organism
[2025-05-13] MEDS ORDERED: Nursing to Pharmacy Communication SCH (16:00)
--- NOTE | 2025-05-13 18:37 | Nephrology Consultation ---
Date of Consultation May 13, 2025 Assessment & Plan (1) Hx of kidney transplant: Recent renal Transplant 03/03/2025 at [facility]--Complicated course of events right after transplant. Had 03/15 admission for early 2A ACR treated with thymo/steroids. Also had admission on 03/26 for fevers/Pancreatitis. Baseline Cr in early 1.0, this was elevated at 1.52 , this has improved to 1.2 today,Good UOP w/ normal Hemodynamics - Check Mag w/ am labs, daily BMP. Positive C. diff Gene - Ocassioanal diarrhea -negative toxin -pursue 14 day course of vancomycin given immunocompromised state -Continue w/LR maintenance fluids -Continue on renally dosed Zosyn; follow-up on urine and blood culture -case discussed w/l transplant bottle dealer Dr. Rodriguez, recs to d/c cellcept and continue on present dose of FK and steroids -- target levels 10-12 FK,( Send am 12 hr trough FK level) -hold cellcept, continue steroids, continue prograf, Urology review as suggested by transplant team, Hospitalist team to update transplant team. - Continue on all the outpatinet mecication , anti HIV, anti virals at home dose, - Involve ID for Abx guidance due repeated infections and immunocompromised state Plan discussed and agreed w/ Dr Lloyd (2) Acute UTI: -Continue on Zosyn; follow-up on urine and blood culture -Dr Lloyd attempted to call transplant bottle dealer Dr. Rodriguez, left message" will call later" -hold cellcept, continue steroids, continue prograf History of Present Illness Attending Physician: Kevin Lloyd MD History of Present Illness 70/M previously w/ recent renal transplant (03/03/2025 at [facility], 03/15 admission for early 2A ACR treated with thymo/steroids, EBV R+, CMV risk intermediate (D+/R+). 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 Rodriguez) from [place]; recommended to hold CellCept until patient is seen in clinic after discharge. Recommended to continue steroids, Prograf. Also recommended 4 weeks of oral antibiotic given the recurrence of the issue after bacteremia is ruled out. Also recommended urology referral for recurrent UTI Had renal transplant on 03/03/2025 but has had complicated course of events since then. Currently on prednisone 5 mg daily, MMF( 500BID), prograf ( 2 mg am and 1 mg pm , but he has been taking 2 mg BID)target 10-12. He had early rejection on 03/15. Also had admission on 03/26 for fevers/Pancreatitis. Per admission note 03/26, severe erosive gastritis on EGD noted, PPI BID x8 weeks, MRCP then subsequent EUS for pancreatic mass with extensive varices noted throughout duodenum. Admitted again in late March with E coli/ staph bacteremia , Cr peaked at 1.4 and returned to 1.2 on discharge w/ Iv fluids and ABX Today he feels much better. No fever. BP getting normal now. Urine / blood culture is awaited,No tenderness on the graft, no dysuric symptoms.Admitted to missing on dose of Tacrolimus yesterday evening. Allergies Allergy/AdvReac Type Severity Reaction Status Date / Time No Known Allergies Allergy Verified 01/23/25 09:44 Home Medications Medication Instructions Recorded Confirmed Type atorvastatin 40 mg tablet 40 mg PO QAM 01/06/22 05/12/25 History fluoxetine 20 mg capsule 20 mg PO QAM 01/06/22 05/12/25 History multivitamin 1 tab PO QAM 01/06/22 05/12/25 History aspirin 81 mg tablet,delayed 81 mg PO QAM 12/30/23 05/12/25 History release metoprolol succinate 25 mg 25 mg PO QAM 12/30/23 05/12/25 History tablet,extended release 24 hr levothyroxine 25 mcg tablet 25 mcg PO DAILY 01/23/24 05/12/25 History nifedipine 30 mg tablet,extended 30 day PO DAILY ##0 03/20/24 05/12/25 History release insulin aspart 10 unit subcut TIDWMEAL 09/21/24 05/12/25 History (niacinamide)(U-100) 100 unit/mL(3 mL) subcutaneous pen (Fiasp FlexTouch U-100 Insulin) pantoprazole 40 mg tablet,delayed 40 mg PO DAILY 12/23/24 05/12/25 History release Prograf 0 mg PO DIRECTED 04/11/25 05/12/25 History bictegravir 50 mg-emtricitabine 1 tab PO DAILY 04/11/25 05/12/25 History 200 mg-tenofovir alafenam 25 mg tablet (Biktarvy) famotidine 20 mg tablet 20 mg PO DAILY PRN Acid Reflux 04/11/25 05/12/25 History mckpwe-hnqpxsux-psjpsqm 1 cap PO .WITH MEALS 04/11/25 05/12/25 History 24,000-76,000-120,000 unit capsule,delayed rel (Creon) loperamide 2 mg capsule 2 mg PO DIRECTED PRN loose 04/11/25 05/12/25 History stools mycophenolate mofetil 500 mg 500 mg PO BID ##0 04/11/25 05/12/25 History tablet (CellCept) sulfamethoxazole 400 1 tab PO BID 04/11/25 05/12/25 History mg-trimethoprim 80 mg tablet tamsulosin 0.4 mg capsule 0.4 mg PO DAILY 04/11/25 05/12/25 History valganciclovir 450 mg tablet 450 mg PO DAILY 04/11/25 05/12/25 History (Valcyte) insulin glargine 100 unit/mL (3 25 unit (0.25 mL) subcut HS #0 mL 04/14/25 05/12/25 Rx mL) subcutaneous pen (Lantus Solostar U-100 Insulin) prednisone 5 mg tablet 5 mg PO DAILY #0 tabs 04/14/25 05/12/25 Rx Patient History Medical History History of COVID-19 2020 Hypertension Diabetes mellitus Hx of sepsis hospitalized at [facility] January 2024 Port-A-Cath in place ESRD (end stage renal disease) on dialysis [facility] in [place] > Tues/ Thurs / Sat History of kidney stones Osteoarthritis Chronic lower back pain History of pancreatitis History of skin cancer [place] (hard of hearing) HLD (hyperlipidemia) History of myocardial infarction 2017 & 2019 Sleep apnea no device Diverticulosis GERD (gastroesophageal reflux disease) IBS (irritable bowel syndrome) Precancerous lesion rectal CAD (coronary artery disease) Per patient, stenting x 5 in 2017 and restenting of 1 vessel performed in July 2020 Depression HIV (human immunodeficiency virus infection) Surgical History EIC (epidermal inclusion cyst) (02/13/25) Skin, right upper chest, excision: in office procedure Dr. Silver - Inflamed epidermal cyst History of esophagogastroduodenoscopy (EGD) S/P ureteral stent placement History of removal of ureteral stent History of cystoscopy History of colonoscopy History of cholecystectomy History of cardiac catheterization 2016 - stents 2019 -- restenting x 1. [facility] Family History Mother Heart disease Social History Smoking Status: Never smoker Tobacco Type: Cigarettes Second Hand Exposure: No; Do You Dip or Chew Tobacco: No; Hx Alcohol Use: No Hx Substance Use: No Preferred Language: Kazakh Communication Ability: Effective Visual Impairment: Limited Hearing Ability: Hard of Hearing Manager Wealth Management Required: No Beliefs That Will Affect Care: None Current Living Situation: Alone Current Living Situation Comment: home Other Information That Helps Us Care for You: No Feels Safe at Home: Yes Safety Concerns: Feels Safe At This Time Diet: regular caffeine: Yes Assistive Devices: Cane Review of Systems 2 Review of Systems: All systems reviewed & are unremarkable except as noted in HPI & below Physical Exam 2 Physical Exam: Gen: AAo x 3. Talkative as always. good spirit HEENT: Moist mucous membranes. Neck: Supple, No JVD. Lungs: No Respiratory distress. b/l clear CV: RRR, no edema. Abdomen:Soft non tender.No tenderness on graft site MSK: No joint swelling, no redness. Skin: No rashes, petechiae, lesions. Normal color per patient. surgical site intact, no tenderness to palpation Results & Data Vital Signs (Past 12 Hours) Vital Signs Temp Pulse Pulse Resp BP Pulse Ox O2 Del Method 05/13/25 16:37 36.3 C L 73 20 138/77 100 Room Air 05/13/25 11:39 36.4 C L 80 18 134/77 99 Room Air 05/13/25 07:51 36.4 C L 75 18 145/73 H 99 Room Air 05/13/25 07:36 Room Air 05/13/25 07:30 74 Laboratory Results 05/13/25 06:05 05/13/25 06:05
[2025-05-14] MEDS: INSULIN ASPART PER UNIT CHARGE SC SCH (00:15)
[2025-05-14 07:30] LABS: Hematocrit (blood only) 29.4 % (42.0-52.0); Hemoglobin 10.0 g/dl (14.0-18.0); Mean Corpuscular Hemoglobin 29.8 pg (25.0-34.0); Mean Corpuscular Volume 87.5 fL (80.0-100.0); Platelet Count 165 K/uL (130-400); RDW Standard Deviation 49.2 fL (36.4-46.3); Red Blood Count 3.36 M/uL (4.70-6.10); White Blood Count 9.21 K/ul (4.8-10.8)
[2025-05-14 07:51] LABS: Anion Gap 6.0 (3-11); Blood Urea Nitrogen 24.0 mg/dl (6-23); Calcium 10.3 mg/dl (8.6-10.3); Carbon Dioxide 22.0 mmol/L (21-32); Chloride 108.0 mmol/L (98-107); Creatinine Clr Calc Pharmacy 46.9 ml/min; Glucose 156.0 mg/dl (70-99(Fasting)); Potassium 3.3 mmol/L (3.5-5.1); Sodium 136.0 mmol/L (136-145)
[2025-05-14] MEDS: BIKTARVY PO SCH (08:01)
[2025-05-14] MEDS: cefTRIAXone SODIUM 2,000 MG/50 ML BAG IV SCH (08:55)
[2025-05-14 11:52] VITALS: TEMP 97.5; O2SAT 100
--- NOTE | 2025-05-14 13:11 | Nephrology Progress Note ---
Date of Service May 14, 2025 Assessment & Plan (1) Hx of kidney transplant: Plan: Recent renal Transplant 03/03/2025 at [facility]--Complicated course of events right after transplant. Had 03/15 admission for early 2A ACR treated with thymo/steroids. Also had admission on 03/26 for fevers/Pancreatitis. Baseline Cr in early 1.0, this was elevated at 1.52 , this has improved to 1.2-- 1.3 today,Good UOP w/ normal Hemodynamics - Check Mag w/ am labs, daily BMP. Positive C. diff Gene - Ocassioanal diarrhea -negative toxin -On 14 day course of vancomycin given immunocompromised state. -d/c /LR maintenance fluids -He has E coli in urine >> on Ceftrioxone now -case discussed w/l transplant skull grinder Dr. Rodriguez, recs to d/c cellcept and continue on present dose of FK and steroids -- target levels 10-12 FK,levels are awaited -hold cellcept, continue steroids, continue prograf, Urology review as suggested by transplant team, Hospitalist team to update transplant team. - Continue on all the outpatinet mecication , anti HIV, anti virals at home dose, - Involve ID for Abx guidance due repeated infections and immunocompromised state - Restart home Nifedipine as his BP is climbing. - Urology review awaited as USS shows mild hydronephrosis on transplanted kidney w/ raised resistive indices which can be early clue to rejection Discussed w/ Dr Lloyd,he would be best managed w/ his primary transplant team , however [facility] transfer is a issue.Dr Lloyd will update Dr Rodriguez regarding transfer.He has means to drive there- he says his friend can help him (2) Acute UTI: Plan: -Continue on Zosyn; follow-up on urine and blood culture -Dr Lloyd attempted to call transplant skull grinder Dr. Rodriguez, left message" will call later" -hold cellcept, continue steroids, continue prograf Admission and Anticipated Discharge Date Admission Date: May 12, 2025 Subjective Patient seen and examined at bedside feeling much better today. Fatigue, chills much better than prior Could not sleep well overnight. Review of Systems 2 Review of Systems: All systems reviewed & are unremarkable except as noted in HPI & below Physical Exam 2 Physical Exam: Gen: AAo x 3. Talkative as always. good spirit HEENT: Moist mucous membranes. Neck: Supple, No JVD. Lungs: No Respiratory distress. b/l clear CV: RRR, no edema. Abdomen:Soft non tender.No tenderness on graft site MSK: No joint swelling, no redness. Skin: No rashes, petechiae, lesions. Normal color per patient. surgical site intact, no tenderness to palpation Results & Data Vital Signs (Past 12 Hours) Vital Signs Temp Pulse Pulse Resp BP Pulse Ox O2 Del Method 05/14/25 11:22 36.4 C L 70 18 147/84 H 100 Room Air 05/14/25 08:00 64 05/14/25 07:27 36.6 C 63 16 155/78 H 96 Room Air 05/14/25 07:15 Room Air 05/14/25 02:57 36.5 C 60 18 161/80 H 99 Room Air Laboratory Results 05/14/25 06:23 05/14/25 06:23
--- NOTE | 2025-05-14 13:14 | Discharge Summary ---
Discharge Summary Date of Service May 14, 2025 Principal Dx & Hospital Course #1 = Principal Diagnosis (1) Sepsis: (2) Acute UTI: (3) Hx of kidney transplant: Plan 70 yo male with pmhx of renal transplant (03/03/2025 at [facility], hx of dialysis, HIV, chronic pancreatitis, hypertension, CAD status post stent in 2018, HFpEF, chronic LBBB, depression, type 2 diabetes mellitus presenting for sepsis 2/2 complicated UTI of transplant kidney. Sepsis POA Acute urinary tract infection Acute kidney injury History of transplant kidney -Patient with a history of transplant kidney presents with fever, chills and dysuria. -Leukocytosis present on admission -Lactic acid elevated on admission -Urinalysis shows 3+ proteinuria, suggestive for infection. -C. diff gene positive Plan: -start LR maintenance fluids -Continue on Zosyn; follow-up on urine and blood culture -attempted to call transplant correctional supervisor lieutenant Dr. Rodriguez, left message, will call later -hold cellcept, continue steroids, continue prograf -nephrology consult, appreciate recs #Positive C. diff Gene -some diarrhea -negative toxin Plan: -pursue 14 day course of vancomycin given immunocompormised state DM Type 2 -Glucose elevated on admission to 300s -Will benefit from outpatient diabetic clinic. HIV -viral load Detectable during evaluation last admission -Infectious disease has been consulted. 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%) -continue metoprolol succinate 25 mg daily, aspirin and lipitor -hold nifedipine Severe Esophagitis -per EGD/EUS at [facility] -continue protonix PO bid per [facility] recs (8 weeks therapy total) Hypomagnesemia- repleted I spent a total of 55 minutes in direct patient care, including nzja-uk-viqq ti me with the patient and/or family, reviewing medical records, ordering and reviewing diagnostic tests, and coordinating care with other healthcare providers. This time includes: history taking, physical examination, medical decision making, counseling, ECG interpretation, imaging interpretation, lab interpretation, orders, and education, excluding time spent in the performance of separately billed services. Notes For Next Care Provider 70 yo male with pmhx of renal transplant (03/03/2025 at [facility], hx of dialysis, HIV, chronic pancreatitis, hypertension, CAD status post stent in 2018, HFpEF, chronic LBBB, depression, type 2 diabetes mellitus who presents for chills, fatigue, sweats. Found to have sepsis and complicated UTI of transplant kidney, admitted to medicine for further workup. Nephrology was consulted, started on abx for UTI growing E. coli. Urology consulted, noted hydronephrosis of transplant kidney, recommended further imaging and transfer to original transplant center due to concern for early rejection. Unable to facility transfer to out of state facility due to lack of transport able to transport acr oss straight lines. Risks and benefits explained to patient and family of discharge and private transport to transplant facility, benefit being more specialized care and being at the transplant center that did the procedure, risk being private transport. Patient is hemodynamically stable, on room air, with reassuring blood work, and do not anticipate difficulty with transportation. Patient set up transportation, and this was discussed at length with patient and family. Return precautions given. This was shared decision making for the benefit of the patients care. On 05/14/2025 patient discharged to get to transplant facility. E. coli sensitivities: E coli RX M.I.C. --- --------- Amikacin S <=16 Amox/Clav S <=8/4 Ampicillin R >16 Amp/Sul S <=4/2 Cefazolin S <=2 Cefepime S <=2 Cefotaxime S <=2 Cefoxitin S <=8 Ceftriaxone S <=1 Cefuroxime S <=4 Ciprofloxacin R >2 Ertapenem S <=0.5 Gentamicin S <=2 Levofloxacin R >4 Meropenem S <=1 Nitrofurantoin S <=32 Tobramycin S <=2 Trimeth/Sulfa R >2/38 Pip/Tazo S <=8 Ultransound Kidney/Bladder: 1. Mild hydronephrosis right lower quadrant transplant kidney with elevated resistive indices. Elevated transplant renal artery peak systolic velocity of 164 cm/s. Transplant renal vein is patent. No stone, mass orfluid collections. Please see above for details. 2. Fluid echo focus at the level of the pelvis adjacent to the transplant kidney. Question urinary bladder. 3. Right chickaloon kidney with increased echogenicity and benign-appearing cysts. 4. Left chickal[place] kidney not identified. Overlying bowel gas at this level. Medication Changes From Visit -augmentin for UTI, PO vancomycin for c. diff gene Admission HPI Per Admitting Provider Past medical history of renal transplant (03/03/2025 at [facility], hx of dialysis, HIV, chronic pancreatitis, hypertension, CAD status post stent in 2018, HFpEF, chronic LBBB, depression, type 2 diabetes mellitus Last admission was in end of March to early April with transplant pyelonephritis; treated with 2 weeks of antibiotics. Patient presents to the hospital with fever, chills, fatigue for the last 2 days. He also reports dysuria for similar duration. He has not measured his temperature at home. He denies chest pain, shortness of breath, abdominal pain, flank pain, visual disturbances, weakness/numbness of any body part. On presentation to the ED he was hypotensive, afebrile and saturating well in room air. He was found to have leukocytosis. His creatinine was found to be elevated to 1.52, lactic acid was elevated along with blood glucose. Pro-Gage was also elevated. Urinalysis showed 3+ proteinuria and bacteria. Patient was given IV fluids, Zosyn and was then referred for admission. Discharge Exam Gen: A&O 3 NAD HEENT: NCAT, EOMI, not icteric. External ears normal. No rhinorrhea. Moist mucous membranes. Neck: Supple, full range of motion, no observable masses, No meningeal sign. Lungs: No Respiratory distress. CV: RRR, no edema. Abdomen: Soft, nondistended, No rebound tenderness. MSK: No joint swelling, no redness. Skin: No rashes, petechiae, lesions. Normal color per patient. Neuro: Normal Gait, Grossly intact. Psych: Appropriate for situation. Updated Medication List Medication Instructions Recorded Confirmed Type atorvastatin 40 mg tablet 40 mg PO QAM 01/06/22 05/12/25 History fluoxetine 20 mg capsule 20 mg PO QAM 01/06/22 05/12/25 History multivitamin 1 tab PO QAM 01/06/22 05/12/25 History aspirin 81 mg tablet,delayed 81 mg PO QAM 12/30/23 05/12/25 History release metoprolol succinate 25 mg 25 mg PO QAM 12/30/23 05/12/25 History tablet,extended release 24 hr levothyroxine 25 mcg tablet 25 mcg PO DAILY 01/23/24 05/12/25 History nifedipine 30 mg tablet,extended 30 day PO DAILY ##0 03/20/24 05/12/25 History release insulin aspart 10 unit subcut TIDWMEAL 09/21/24 05/12/25 History (niacinamide)(U-100) 100 unit/mL(3 mL) subcutaneous pen (Fiasp FlexTouch U-100 Insulin) pantoprazole 40 mg tablet,delayed 40 mg PO DAILY 12/23/24 05/12/25 History release Prograf 0 mg PO DIRECTED 04/11/25 05/12/25 History bictegravir 50 mg-emtricitabine 1 tab PO DAILY 04/11/25 05/12/25 History 200 mg-tenofovir alafenam 25 mg tablet (Biktarvy) famotidine 20 mg tablet 20 mg PO DAILY PRN Acid Reflux 04/11/25 05/12/25 History scrkok-blhiibyr-txalzra 1 cap PO .WITH MEALS 04/11/25 05/12/25 History 24,000-76,000-120,000 unit capsule,delayed rel (Creon) loperamide 2 mg capsule 2 mg PO DIRECTED PRN loose 04/11/25 05/12/25 History stools mycophenolate mofetil 500 mg 500 mg PO BID ##0 04/11/25 05/12/25 History tablet (CellCept) tamsulosin 0.4 mg capsule 0.4 mg PO DAILY 04/11/25 05/12/25 History valganciclovir 450 mg tablet 450 mg PO DAILY 04/11/25 05/12/25 History (Valcyte) insulin glargine 100 unit/mL (3 25 unit (0.25 mL) subcut HS #0 mL 04/14/25 05/12/25 Rx mL) subcutaneous pen (Lantus Solostar U-100 Insulin) prednisone 5 mg tablet 5 mg PO DAILY #0 tabs 04/14/25 05/12/25 Rx amoxicillin 500 mg-potassium 1 tab PO BID 12 days #24 tabs 05/14/25 Rx clavulanate 125 mg tablet (Augmentin) escalante flavor (bulk) 1 ea PO Q6 #3,800 mL 05/14/25 Rx vancomycin 1,000 mg intravenous 125 mg PO Q6 12 days #10 ea 05/14/25 Rx injection Hospital Stay Data Consultations 05/12/25 12:13 ED Decision to Admit Stat 05/12/25 13:08 Consult Nephrology Routine 05/13/25 13:11 Consult Infectious Diseases Routine 05/14/25 07:49 Consult Urology Routine Diagnostic Imagining Performed 05/12/25 12:45 US renal transplant w dop Urgent 05/14/25 12:21 CT abd pelvis wo con Routine Pending Results Patient Have Any Pending Studies at Discharge: Yes Discharge Instructions Given to Patient (Per Discharging Provider) Diagnosis: complicated UTI of transplant kidney, hydronephrosis of transplant kidney Follow Ups: nephrology, urology, infectious disease, PCP 1. Follow up with PCP, nephrology, urology, infectious disease, PCP. 2. Please go to your transplant facility as soon as possible, risks and benefits discussed at length of leaving this hospital and going to transplant facility. If you get sick in transport please stop at nearest hospital immediately. 3. Stay hydrated! Total Time Total Time Spent Total Time Spent (In Minutes): I spent a total of 60 minutes in direct patient care, including [id number] time with the patient and/or family, reviewing medical records, ordering and reviewing diagnostic tests, and coordinating care with other healthcare providers. This time includes: history taking, physical examination, medical decision making, counseling, ECG interpretation, imaging interpretation, lab interpretation, orders, and education, excluding time spent in the performance of separately billed services.
--- NOTE | 2025-05-14 13:29 | Urology Consultation ---
Date of Consultation May 14, 2025 Assessment & Plan (1) Acute UTI: (2) Sepsis: (3) Hx of kidney transplant: (4) Pyelonephritis of transplanted kidney: (5) S/P kidney transplant: (6) Chronic pancreatitis: (7) LBBB (left bundle branch block): (8) End stage chronic kidney disease: (9) HIV (human immunodeficiency virus infection): Plan Patient with recent renal transplant admitted due to possible infection concern for possible rejection or other major issue. Patient had undergone renal transplant in February 2025. Patient presented with significant ill feeling concerned about UTI. Has had a number of issues since the transplant. Had transplant done at [facility]. Patient was admitted for stabilization. Had planned to go to [facility] once discharged for further evaluation specially related to the function of the renal transplant. Did have imaging while in the ER undergoing assessment. Possible fluid collection versus the bladder was seen on ultrasound. Did discuss need for improved imaging. Especially with patient and pending transfer would recommend getting CT scan to evaluate for fluid collection or other issue developing around the transplanted kidney. Patient independently assessed, examined, interviewed, and evaluated. Patient's vitals and labs were all reviewed. Pertinent values in the HPI and plan section. Imaging was reviewed interpreted by myself. Ultrasound does appear to have fluid collection however may be bladder. Otherwise agree with read. Vitals were reviewed. White count is 9.21 creatinine 1.33 patient is on chronic immunosuppression. Hemoglobin 10.0. Does not appear to be having severe YASIR or other major change. He is having mild hypertension with 147/84. Pulse was 70 respirations 18 temperature 36.4 oxygen saturation 100% on room air. Discussed findings extensively with patient and family. Reviewed with consulting physicians/team. Patient's complicated medical and surgical history was reviewed and summarized above. Patient's surgical, medical, social, and family history were all reviewed with pertinent values as above. Discussed patient's current diagnosis as well as concerns and issues. Reviewed different options moving forward. Discussed potential risks and benefits as well as possible options and concerns. Reviewed potential surgical options and interventions. Discussed potential issues and concerns related to intervention. Risk and benefits were discussed extensively with patient and any available family. Discussed potential risks related to anesthesia. Discussed risks of bleeding infection and injury. Reviewed extensively potential issues and concerns. With patient's immunocompromise state as well as his immunosuppressive therapy and the most recent surgery less than 90 days ago did discuss possible major issues that could be developing. Did discuss possibility of UTI which would likely need close monitoring and management and possibly broad-spectrum coverage depending on species. Reviewed patient's previous infection history and concern. Patient stated that he was planning on taking himself to his transplant center as soon as he is discharged for further evaluation with them. Patient has improved from the UTI symptoms has not had major or severe fever. Has not had considerable increase in ill feelings since initiating IV antibiotics and close monitoring. Reviewed options moving forward. Patient's complicated medical and surgical history including the most recent operation and the issues after that operation were thoroughly reviewed and summarized above. All labs and imaging were reviewed and interpreted by myself with interpretation as above. Pertinent positive negatives in the HPI and plan section. Patient has been stabilized he is hoping that he can be discharged later today so he can go to his transplant center for further evaluation with concerns about recurrent UTIs within the postoperative. Patient did not appear to be in severe retention. Agree with plans with continued antibiotic coverage. Coordinate with the hospitalist team. History of Present Illness Attending Physician: Kevin Lloyd MD History of Present Illness New consultation for patient with UTI/Pyelo, discomfort, and ill feelings. Patient with extremely complicated history of renal failure with obstructive issues. Had previously seen urology due to worsening renal function and have failed stent placement. Has subsequently undergone renal transplant in February 2025. Patient has had a number of issues including issues with infections and rejection since the transplant. Had episode of pancreatitis. Patient has transplant at [facility]. Plan is to likely have patient transferred there due to concerns for significant issues with immunocompromise state, complicated history, and potential rejection of transplant. Patient was admitted for stabilization and IV antibiotic management. Patient developed sudden onset of pain into flank going down and radiating into groin and back in waves comes and goes. Can be severe at times. Discussed and reviewed patient's family history for any history of issues, infections, and disease. Also, discussed patient's medical/surgery history especially related to any history of urinary issues or stone disease. Patient was admitted and is undergoing observation with broad spectrum IV antibiotics. Allergies Allergy/AdvReac Type Severity Reaction Status Date / Time No Known Allergies Allergy Verified 01/23/25 09:44 Home Medications Medication Instructions Recorded Confirmed Type atorvastatin 40 mg tablet 40 mg PO QAM 01/06/22 05/12/25 History fluoxetine 20 mg capsule 20 mg PO QAM 01/06/22 05/12/25 History multivitamin 1 tab PO QAM 01/06/22 05/12/25 History aspirin 81 mg tablet,delayed 81 mg PO QAM 12/30/23 05/12/25 History release metoprolol succinate 25 mg 25 mg PO QAM 12/30/23 05/12/25 History tablet,extended release 24 hr levothyroxine 25 mcg tablet 25 mcg PO DAILY 01/23/24 05/12/25 History nifedipine 30 mg tablet,extended 30 day PO DAILY ##0 03/20/24 05/12/25 History release insulin aspart 10 unit subcut TIDWMEAL 09/21/24 05/12/25 History (niacinamide)(U-100) 100 unit/mL(3 mL) subcutaneous pen (Fiasp FlexTouch U-100 Insulin) pantoprazole 40 mg tablet,delayed 40 mg PO DAILY 12/23/24 05/12/25 History release Prograf 0 mg PO DIRECTED 04/11/25 05/12/25 History bictegravir 50 mg-emtricitabine 1 tab PO DAILY 04/11/25 05/12/25 History 200 mg-tenofovir alafenam 25 mg tablet (Biktarvy) famotidine 20 mg tablet 20 mg PO DAILY PRN Acid Reflux 04/11/25 05/12/25 History nmveap-trymjfyn-qwekzbj 1 cap PO .WITH MEALS 04/11/25 05/12/25 History 24,000-76,000-120,000 unit capsule,delayed rel (Creon) loperamide 2 mg capsule 2 mg PO DIRECTED PRN loose 04/11/25 05/12/25 History stools mycophenolate mofetil 500 mg 500 mg PO BID ##0 04/11/25 05/12/25 History tablet (CellCept) tamsulosin 0.4 mg capsule 0.4 mg PO DAILY 04/11/25 05/12/25 History valganciclovir 450 mg tablet 450 mg PO DAILY 04/11/25 05/12/25 History (Valcyte) insulin glargine 100 unit/mL (3 25 unit (0.25 mL) subcut HS #0 mL 04/14/25 05/12/25 Rx mL) subcutaneous pen (Lantus Solostar U-100 Insulin) prednisone 5 mg tablet 5 mg PO DAILY #0 tabs 04/14/25 05/12/25 Rx amoxicillin 500 mg-potassium 1 tab PO BID 12 days #24 tabs 05/14/25 Rx clavulanate 125 mg tablet (Augmentin) escalante flavor (bulk) 1 ea PO Q6 #3,800 mL 05/14/25 Rx vancomycin 1,000 mg intravenous 125 mg PO Q6 12 days #10 ea 05/14/25 Rx injection Patient History Medical History History of COVID-19 2020 Hypertension Diabetes mellitus Hx of sepsis hospitalized at [facility] January 2024 Port-A-Cath in place ESRD (end stage renal disease) on dialysis [facility] in [place] > Tues/ Th / Sat History of kidney stones Osteoarthritis Chronic lower back pain History of pancreatitis History of skin cancer NOORVIK (hard of hearing) HLD (hyperlipidemia) History of myocardial infarction 2016 & 2019 Sleep apnea no device Diverticulosis GERD (gastroesophageal reflux disease) IBS (irritable bowel syndrome) Precancerous lesion rectal CAD (coronary artery disease) Per patient, stenting x 5 in 2016 and restenting of 1 vessel performed in July 2020 Depression HIV (human immunodeficiency virus infection) Surgical History EIC (epidermal inclusion cyst) (02/13/25) Skin, right upper chest, excision: in office procedure Dr. Silver - Inflamed epidermal cyst History of esophagogastroduodenoscopy (EGD) S/P ureteral stent placement History of removal of ureteral stent History of cystoscopy History of colonoscopy History of cholecystectomy History of cardiac catheterization 2016 - stents 2019 -- restenting x 1. 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 HEENT: Normocephalic Atraumatic. Inspection normal. Cranial Nerves 2-12 Grossly intact. Nares are clear. Neck is supple. Normal inspection of face. Normal inspection of neck. Neurologic: No deficits on inspection. Baseline for motor function and sensory. Psychologic: Normal affect. Respiratory: Nonlabored. No use of accessory muscles. No tachypnea or dyspnea. Cardiovascular: No tachycardia Skin: [place] and Dry. No rashes or visible lesions. Extremities: Moving without issues. No motor deficits on inspection Lymphatics: No edema Abdomen: Soft Non-distended. No rebound or guarding. Results & Data Vital Signs (Past 12 Hours) Vital Signs Temp Pulse Pulse Resp BP Pulse Ox O2 Del Method 05/14/25 11:22 36.4 C L 70 18 147/84 H 100 Room Air 05/14/25 08:00 64 05/14/25 07:27 36.6 C 63 16 155/78 H 96 Room Air 05/14/25 07:15 Room Air 05/14/25 02:57 36.5 C 60 18 161/80 H 99 Room Air PG Care Time/CCT Total # of Minutes Spent Total Time Spent with Patient: Total time spent is greater than 50% in coordination of care (as documented) at patient's floor/unit and/or counseling patient: Coding Level of Care Code 35083 INT INP/OBS CARE 3/75MIN Diagnoses Acute UTI N39.0 Sepsis A41.9 Sepsis acute organ dysfunction status: unspecified Sepsis type: sepsis due to unspecified organism Hx of kidney transplant Z94.0 Pyelonephritis of transplanted kidney T86.19; N12 S/P kidney transplant Z94.0 Chronic pancreatitis K86.1 LBBB (left bundle branch block) I44.7 End stage chronic kidney disease N18.6 HIV (human immunodeficiency virus infection) B20 (2) Sepsis Sepsis acute organ dysfunction status: unspecified Sepsis type: sepsis due to unspecified organism Qualified Code(s): A41.9 - Sepsis, unspecified organism
--- NOTE | 2025-05-14 14:01 | CT Scan Report ---
EXAM: CT Abdomen and Pelvis Without Intravenous Contrast INDICATION: Pyelonephritis TECHNIQUE: Axial computed tomography images of the abdomen and pelvis without intravenous contrast. Sagittal and coronal reformatted images were created and reviewed. This CT exam was performed using one or more of the following dose reduction techniques: automated exposure control, adjustment of the mA and/or kV according to patient size, and/or use of iterative reconstruction technique. COMPARISON: 09/21/2024 FINDINGS: Limitations: None. Lung bases: No abnormality noted. Pleural space: Trace layering pleural effusions present. Heart: No abnormality noted. Mediastinum: No abnormality noted. ABDOMEN: Liver: Small amounts of fluid around the liver. Gallbladder and bile ducts: Cholecystectomy. No ductal dilation or stone noted. Pancreas: No pancreatic mass, calcification, inflammation or ductal dilation noted. Spleen: No significant abnormality noted. Adrenals: No significant abnormality noted. Kidneys and ureters: Small [place] kidneys with bilateral simple cysts. No hydronephrosis. No urinary gas. Right lower quadrant renal pelvic transplant is edematous. No associated gas or hydronephrosis. Stomach and bowel: There is diffuse thickening of small bowel loops and moderate stool in the colon without obstruction. Left colonic diverticulosis. PELVIS: Appendix: No findings to suggest acute appendicitis. Bladder: The urinary bladder is incompletely distended but appears mildly thickened. Reproductive: No abnormalities noted. ABDOMEN and PELVIS: Intraperitoneal space: There is worsening generalized edema in the mesentery and omentum. There is no free air or abscess. Bones/joints: No acute changes. Soft tissues: No significant abnormality noted. Vasculature: No abdominal aortic aneurysm. Lymph nodes: No pathologically enlarged lymph nodes. IMPRESSION: 1. The right renal pelvic transplant is moderately inflamed. No hydronephrosis. 2. Generalized moderate enteritis with diffuse mesenteric and omental edema. Consider infectious etiologies. 3. Question cystitis. ACT 112: N/A Electronically signed by Serena Shook 05-14-2025 2:01 PM
[2025-05-14 15:30] VITALS: BP 138/81; PULSE 77; RESP 16
[2025-05-15] MEDS ORDERED: TAMSULOSIN HCL 0.4 MG CAP PO SCH (09:00)
== END 2025-05-14 17:00 | disposition home or self-care (01) | DRG 872 ==
LOC: ED 10:41 → EDINP 13:08 → SUATTDRO 13:08 → 2S 15:48